=== PATIENT | female | born 1980 | race Caucasian/White ===

== ENCOUNTER 2019-04-06 16:07 | Outpatient (REF) | payer MEDICAID, SELFPAY ==
[2019-04-06 21:28] LABS: HCT 37.3 % (36.0-46.0); HGB 11.8 g/dL (12.0-15.5); Mean Corp. HGB Concentration 31.6 g/dL (32.0-36.0); Mean Corpuscular Hemoglobin 25.3 pg (27.0-33.0); Mean Platelet Volume 10.3 fL (8.0-11.0); Platelet Count 380 x1000/uL (130-400); RBC 4.66 m/cumm (4.00-5.20); RBC Distribution Width 16.5 % (11.7-14.6); White Blood Cell Count 12.37 k/cumm (4.4-10.8)
[2019-04-06 21:51] LABS: Anion Gap 7.8 mmol/L (3-11); BUN 16 mg/dL (7-18); CO2 28.2 mmol/L (21.0-32.0); Calcium 9.3 mg/dL (8.5-10.1); Chloride 103 mmol/L (98-107); Cholesterol 204 mg/dL (50-200); Glucose 109 mg/dL (70-100); HDL Cholesterol 33 mg/dL (40-60); LDL CHOLESTEROL 147 mg/dL (<100); Potassium 4.1 mmol/L (3.5-5.1); Sodium 139 mmol/L (136-145); TSH 31.56 uIU/mL (0.358-3.74); Triglyceride 197 mg/dL (30-150)
[2019-04-06 22:06] LABS: Hemoglobin A1C 6.6 % (4.5-6.2)
== END 2019-04-06 16:27 ==
LOC: NCHCN 16:07
PROVIDERS: PCP Nurse Practitioner Family; Visit Provider Nurse Practitioner Family
DX: E03.9 Hypothyroidism, unspecified (principal); E11.9 Type 2 diabetes mellitus without complications; F41.8 Other specified anxiety disorders; M54.16 Radiculopathy, lumbar region; M54.5 Low back pain; G47.33 Obstructive sleep apnea (adult) (pediatric); E66.9 Obesity, unspecified
CPT/HCPCS: 80048; 80061; 83721; 85027; 83036; 84443

== ENCOUNTER 2019-06-15 16:39 | Outpatient (REF) | payer MEDICAID, SELFPAY ==
--- NOTE | 2019-06-15 16:00 | PAPFT_PTH ---
PATIENT: Yesenia Fragoso LOC: [facility] U#:[id number] AGE/SX: 38/F ROOM: RE06/15/[address]: Perla Figueroa : 1980 BED: DIS: 06/15/2019 SPEC #: [id number] RECD: 06/16/19 12:28 STATUS: RAFI PIERCE #: [id number] YOVANI: 06/15/19 16:[address]: Perla Zamorano DEPT: [facility] Cytology RECD BY: Perla Whyte ENTERED: 06/16/19 12:28 SP TYPE: PAPFT OTHR DR: Emily Bejarano Tissues: 1 - CX/ENDOCX FOR PAP SMEARS Procedures: PAP THIN PREP/UVM Screening HPV DNA PROBE Comments: [id number] (CHLAMYDIA/GC)
--- NOTE | 2019-06-15 16:00 | LABIA_PTH ---
PATIENT: Yesenia Fragoso LOC: [facility] U#:[id number] AGE/SX: 38/F ROOM: RE06/15/[address]: Perla Figueroa : 1980 BED: DIS: 06/15/2019 SPEC #: [id number] RECD: 06/16/19 12:18 STATUS: RAFI REMarilu #: [id number] YOVANI: 06/15/19 16:[address]: Perla Zamorano DEPT: Surgical Specimen RECD BY: Perla Whyte ENTERED: 06/16/19 12:20 SP TYPE: LABIA OTHR DR: Emily Bejarano Tissues: 1 - LABIA BX 2 - LABIA BX Procedures: GROSS AND MICRO LEVEL 4 Comments: [id number]
[2019-06-17 14:45] LABS: Chlamydia Result Negative; GC Result Negative; Specimen Description SEE COMMENTS
== END 2019-06-15 16:59 ==
LOC: NCHCN 16:39
PROVIDERS: PCP Nurse Practitioner Family; Visit Provider Nurse Practitioner Family
DX: A63.0 Anogenital (venereal) warts (principal); N89.0 Mild vaginal dysplasia; R87.810 Cervical high risk human papillomavirus (HPV) DNA test positive; Z11.3 Encounter for screening for infections with a predominantly sexual mode of transmission; Z12.4 Encounter for screening for malignant neoplasm of cervix; Z11.51 Encounter for screening for human papillomavirus (HPV)
CPT/HCPCS: 87491; 87591; 88142; 88305; 87624

== ENCOUNTER 2019-10-12 15:53 | Outpatient (REF) | payer MEDICAID, SELFPAY ==
[2019-10-12 21:28] LABS: Hemoglobin A1C 6.9 % (4.5-6.2)
[2019-10-12 21:32] LABS: TSH 60.52 uIU/mL (0.36-3.74)
== END 2019-10-12 16:13 ==
LOC: NCHCN 15:53
PROVIDERS: PCP Nurse Practitioner Family; Visit Provider Nurse Practitioner Family
DX: E03.9 Hypothyroidism, unspecified (principal); E11.9 Type 2 diabetes mellitus without complications; F41.8 Other specified anxiety disorders; J45.20 Mild intermittent asthma, uncomplicated
CPT/HCPCS: 83036; 84443

== ENCOUNTER 2020-02-25 10:54 | Outpatient (REF) | payer MEDICAID, SELFPAY ==
[2020-02-25 20:34] LABS: TSH 11.49 uIU/mL (0.36-3.74)
== END 2020-02-25 11:14 ==
LOC: NCHCN 10:54
PROVIDERS: PCP Nurse Practitioner Family; Visit Provider Nurse Practitioner Family
DX: E03.9 Hypothyroidism, unspecified (principal)
CPT/HCPCS: 84443

== ENCOUNTER 2020-08-22 13:59 | Outpatient (REF) | payer MEDICAID, SELFPAY ==
[2020-08-22 21:58] LABS: TSH 21.13 uIU/mL (0.36-3.74); Vitamin B12 287 pg/mL (193-986)
[2020-08-23 00:34] LABS: Hemoglobin A1C 7.9 % (<5.7)
== END 2020-08-22 14:19 ==
LOC: NCHCN 13:59
PROVIDERS: PCP Nurse Practitioner Family; Visit Provider Nurse Practitioner Family
DX: E11.9 Type 2 diabetes mellitus without complications (principal); Z51.81 Encounter for therapeutic drug level monitoring
CPT/HCPCS: 82607; 83036; 84443

== ENCOUNTER 2020-09-19 17:27 | Outpatient (REF) | payer MEDICAID, SELFPAY ==
[2020-09-19 21:25] LABS: Calculated LDL 157 mg/dL (<100); Cholesterol 224 mg/dL (<200); HDL Cholesterol 28 mg/dL (40-60); T4 8.4 ug/mL (4.7-13.3); TSH 33.81 uIU/mL (0.36-3.74); Triglyceride 197 mg/dL (<150)
== END 2020-09-19 17:47 ==
LOC: NCHCN 17:27
PROVIDERS: PCP Nurse Practitioner Family; Visit Provider Nurse Practitioner Community Health
DX: E03.9 Hypothyroidism, unspecified (principal); Z13.220 Encounter for screening for lipoid disorders
CPT/HCPCS: 80061; 84436; 84443

== ENCOUNTER 2020-10-18 14:48 | Outpatient (REF) | payer MEDICAID, SELFPAY | END 2020-10-18 15:08 | LOC: NCHCN 14:48 | PROVIDERS: PCP Nurse Practitioner Family; Visit Provider Family Medicine | DX: R31.9 Hematuria, unspecified (principal) | CPT/HCPCS: 87086 ==

== ENCOUNTER 2020-11-28 18:10 | Outpatient (REF) | payer MEDICAID, SELFPAY ==
[2020-11-28 20:37] LABS: TSH (W/Ref FT4) 0.06 uIU/mL (0.36-3.74)
[2020-11-28 20:48] LABS: Hemoglobin A1C 7.2 % (<5.7)
[2020-11-28 21:16] LABS: FREE T4 1.84 ng/dL (0.76-1.46)
[2020-11-30 19:27] LABS: COVID-19 RT-PCR UVMMC Result Negative (Negative)
== END 2020-11-28 18:30 ==
LOC: NCHCN 18:10
PROVIDERS: PCP Nurse Practitioner Family; Visit Provider Nurse Practitioner Community Health
DX: E11.9 Type 2 diabetes mellitus without complications (principal); Z51.81 Encounter for therapeutic drug level monitoring; R05 Cough
CPT/HCPCS: U0003; 83036; 84439; 84443

== ENCOUNTER 2020-12-14 18:12 | Outpatient (REF) | payer MEDICAID, SELFPAY ==
[2020-12-16 22:13] LABS: COVID-19 RT-PCR Result NEGATIVE (Negative)
== END 2020-12-14 18:32 ==
LOC: NCHCN 18:12
PROVIDERS: PCP Nurse Practitioner Family; Visit Provider Nurse Practitioner Family
DX: J06.9 Acute upper respiratory infection, unspecified (principal)
CPT/HCPCS: U0003

== ENCOUNTER 2021-01-09 21:22 | Outpatient (REF) | payer MEDICAID, SELFPAY ==
[2021-01-09 21:32] LABS: TSH 3.58 uIU/mL (0.36-3.74); Vitamin B12 487 pg/mL (193-986)
[2021-01-11 10:14] LABS: HIV-1/2 Ag & Ab Screen Negative (Negative)
== END 2021-01-09 21:23 | disposition home or self-care (01) ==
LOC: NCHCN 21:22
PROVIDERS: PCP Nurse Practitioner Family; Visit Provider Nurse Practitioner Community Health
DX: R31.9 Hematuria, unspecified (principal); Z11.4 Encounter for screening for human immunodeficiency virus [HIV]; E03.9 Hypothyroidism, unspecified
CPT/HCPCS: 87389; 82607; 84443; 87086

== ENCOUNTER 2021-05-12 11:44 | Outpatient (REF) | payer MEDICAID, SELFPAY ==
[2021-05-12 20:57] LABS: TSH (W/Ref FT4) 5.66 uIU/mL (0.36-3.74)
[2021-05-12 21:21] LABS: FREE T4 1.19 ng/dL (0.76-1.46)
== END 2021-05-12 11:45 | disposition home or self-care (01) ==
LOC: NCHCN 11:44
PROVIDERS: PCP Nurse Practitioner Family; Visit Provider Nurse Practitioner Family
DX: E03.9 Hypothyroidism, unspecified (principal)
CPT/HCPCS: 84439; 84443

== ENCOUNTER 2021-10-02 20:56 | Outpatient (REF) | payer MEDICAID, SELFPAY ==
--- OUTSIDE RECORDS SUMMARY | 2021-10-02 20:59 | XMS_ITS | CCD ---
:1980 Author Care Team Providers Name Role Phone MD DYANA Attending Physician Unavailable MD DYANA Er Physician 1 Unavailable Vital Signs Unknown or Not Available. Allergies Allergy Code Allergy Type Reaction Status MORPHINE 7052 Drug allergy Hives; ITCHING Active BEE POLLEN 307478 Drug allergy Anaphylaxis Active DILAUDID 504697 Drug allergy Hives; ITCHING Active Procedures Unknown or Not Available. History of Immunizations Unknown or Not Available. Problems Unknown or Not Available. Results KRISTY GALVEZID RHEONIX - Collect Date/Time : 07/03/2021 04:39 Test Name Code Test Result Test Units Test Ref Range SOURCE= Anterior nasal N/A Tier- INPATIENT/ED N/A SARS COV2 RNA: 13654-3 NEGATIVE N/A REFERENCE RAN GE: NEGAT Active Medications Medication Code Dose Units Frequency Route Modification Start Date/Time FLOVENT HFA 0 1 PUFF TWICE A DAY INHALATION 04/14 0.11MG/1ACTUA 22:20 TION INHAL Prescription Detail 1 PUFF INHALATION TWICE A D AY FLUoxetine HCl 347590 20 MILLIGRAMS DAILY ORAL 2018 20MG Oral 22:20 Capsule Prescription Detail TAKE 20 MILLIGRAMS ORAL MARLEN Y METFORMIN HCL 0 500 MILLIGRAMS DAILY ORAL 019 500 MG ORAL 22:20 TABLET, E Prescription Detail TAKE 500 MILLIGRAMS ORAL NICHOLE LY LEVOTHYROXINE 0 224 MICROGRAM DAILY ORAL 12/27/19 18 112MCG ORAL TABLET 11:11 Prescription Detail TAKE 224 MICROGRAM ORAL MARLEN Y metFORMIN HCl 388036 500 MILLIGRAMS DAILY ORAL 018 500MG Oral 11:11 Tablet Prescription Detail TAKE 500 MILLIGRAMS ORAL NICHOLE LY Proventil HFA 139075 2 PUFF NEEDED, INHALATION 12/2017 0.09MG/1Actuation EVERY 4 11:11 Inhalation Suspension HOURS Prescription Detail 2 PUFF INHALATION NEEDED , EVERY 4 HOURS ADVAIR HFA 0 2 PUFF NEEDED INHALATION 12/26/19 18 INHALER 22:58 Prescription Detail 2 PUFF INHALATION NEEDED LEVOTHYROXINE 0 224 MICROGRAM DAILY ORAL 12/26/19 18 112MCG ORAL TABLET 22:58 Prescription Detail TAKE 224 MICROGRAM ORAL MARLEN Y metFORMIN HCl 709199 500 MILLIGRAMS DAILY ORAL 018 500MG Oral 22:58 Tablet Prescription Detail TAKE 500 MILLIGRAMS ORAL NICHOLE LY Medications Administered During Visit Unknown or Not Available. Encounters Encounter Diagnosis Diagnosis Code Start Date Nausea with vomiting, unspecified R112 2020 Social History Smoking Status Code Start Date End Date Current some day smoker [id number] 11/25/1997 Patient Decision Aids Unknown or Not Available. Discharge Instructions You were admitted to [facility] on 07/03/2021 03:31 with a principal diagnosis of Nausea with vomiting, unspe cified You had the following tests done: KRISTY COVID RHEONIX You were discharged from [facility] on 07/03/2021 04:51 Should you have any questions prior to d ischarge, please contact a member of your healthcare team. If you have left the spital and have any questions, please contact your primary care physician. Chief Complaint and Reason For Visit Chief Complaint Date of Onset NAUSEA/VOMITING Function Status Unknown or Not Available. Plan of Care Unknown or Not Available. Referral/Transition of Care Unknown or Not Available.
--- OUTSIDE RECORDS SUMMARY | 2021-10-02 21:00 | XMS_ITS | CCD ---
:1980 Author Care Team Providers Name Role Phone MD PUNEET Attending Physician Unavailable MD PUNEET Er Physician 1 Unavailable Vital Signs Unknown or Not Available. Allergies Allergy Code Allergy Type Reaction Status MORPHINE 7052 Drug allergy Hives; ITCHING Active BEE POLLEN 487248 Drug allergy Anaphylaxis Active DILAUDID 760450 Drug allergy Hives; ITCHING Active Procedures Unknown or Not Available. History of Immunizations Unknown or Not Available. Problems Unknown or Not Available. Results C REACTIVE PROTEIN HIGH SENSITIVITY - Co llect Date/Time: 07/20/2021 22:05 Test Name Code Test Result Test Units Test Ref Range CRP-HIGH SENS. 10080-5 44.48 mg/L L=0.00 H= 3.00 CRP-HIGH SENS 18087-3 4.45 mg/dL L=0.00 H=0 .30 COMPREHENSIVE METABOLIC PANEL (CMP) - Co llect Date/Time: 07/20/2021 22:05 Test Name Code Test Result Test Units Test Ref Range GLUCOSE 2345-7 230 mg/dL L=70 H=11 6 BUN 3094-0 10 mg/dL L=6 H=25 CREATININE 2160-0 0.98 mg/dL L=0.51 H=0.95 SODIUM SERUM 2951-2 141 mmol/L L=136 H=14 5 POTASSIUM SERUM 2823-3 3.5 mmol/L L=3.4 H =5.2 CHLORIDE SERUM 2075-0 103 mmol/L L=96 H= 110 CARBON DIOXIDE (CO2) 2028-9 30 mmol/L L=22 H=34 ANION GAP 37480-7 8.0 mmol/L CALCIUM SERUM 12900-0 8.9 mg/dL L=8.2 H=10.2 BILIRUBIN TOTAL 1975-2 0.2 mg/dL L=0.0 H =1.3 ALK. PHOS. 6768-6 78 U/L L=46 H=11 6 SGOT (AST) 1920-8 11 U/L L=15 H=37 SGPT (ALT) 1742-6 17 U/L L=12 H=78 TOTAL PROTEIN 2885-2 7.3 gm/dL L=6.0 H=8 .0 ALBUMIN 1751-7 3.0 gm/dL L=3.4 H=5. 0 AGE 40 years eGFR (non-Afr.Amer.) 78743-1 63 mL/min eGFR (Afr-[place] Korean) 91709-9 76 mL/min LIPASE - Collect Date/Time: 07/20/2021 2 2:05 Test Name Code Test Result Test Units Test Ref Range LIPASE 132 U/L L=73 H=39 3 CBC W/ DIFFERENTIAL - Collect Date/Time: 07/20/2021 22:05 Test Name Code Test Result Test Units Test Ref Range WBC 6690-2 14.87 th/cmm L=5.00 H=10.00 NEUT % 72.5 % L=40.0 H=80.0 LYMPH % 22.5 % L=10.0 H=50.0 MONO % 91691-7 2.7 % L=2.0 H=12.0 EOS % 1.7 % L=0.0 H=8. 0 BASO % 0.3 % L=0.0 H=3. 0 IG % 2514-8 0.3 % L=0.0 H=1. 1 NRBC % 85988-1 0.0 % L=0.0 H=0. 0 NEUT abs count 751-8 10.8 th/cmm L=1.6 H= 8.4 LYMPH abs count 731-0 3.4 th/cmm L=1.5 H =4.0 MONO abs count 742-7 0.4 th/cmm L=0.2 H= 1.0 EOS abs count 711-2 0.3 th/cmm L=0.0 H=0 .5 BASO abs count 704-7 0.1 th/cmm L=0.0 H= 0.2 IG abs count 14903-5 0.0 th/cmm L=0.0 H=0. 1 NRBC abs count 88199-2 0.0 mil/cmm L=0.0 H= 0.0 RBC 789-8 4.59 mil/cmm L=3.90 H=5.40 HEMOGLOBIN 718-7 12.8 gm/dL L=12.0 H=16.0 HEMATOCRIT 4544-3 40 % L=37 H=47 MCV 787-2 86 fL L=82 H=92 MCH 785-6 27.9 pg L=27.0 H=31.0 MCHC 786-4 32.3 % L=32.0 H=36.0 RDW-SD 788-0 44.0 fL L=39.0 H=49.0 PLATELET COUNT 777-3 323 th/cmm L=150 H= 450 CLOSTRIDIUM DIFFICILE BY PCR - Collect D ate/Time: 07/21/2021 18:33 Test Name Code Test Result Test Units Test Ref Range Consistency = 30960-5 WATERY N/A C. DIFFICILE DNA 86218-2 NEGATIVE N/A Normal: Neg ative LACTOFERRIN DETECTION STOOL - Collect Da te/Time: 07/21/2021 18:33 Test Name Code Test Result Test Units Test Ref Range Consistency: WATERY N/A Lactoferrin stool NEGATIVE N/A URINALYSIS WITH REFLEX CULT IF POSITIVE - Collect Date/Time: 07/20/2021 22:20 Test Name Code Test Result Test Units Test Ref Range COLLECTION MODE: Clean Catch N/A Color 5778-6 YELLOW N/A yellow Appearance 5767-9 CLEAR N/A clear Glucose urine 22669-3 NEGATIVE N/A negative mg/ dl Bilirubin 5770-3 NEGATIVE N/A negative Ketones 2514-8 TRACE N/A negative mg/d l Spec gravity 5811-5 >=1.030 N/A 1.003 - 1.030 pH urine 2756-5 6.0 N/A 5.0 - 7.0 Protein 76425-5 NEGATIVE N/A negative mg/d l Urobilinogen 78443-3 0.2 N/A <or= 1 EU/d l Nitrite. 5802-4 NEGATIVE N/A negative Blood 5794-3 NEGATIVE N/A negative Leukocytes. NEGATIVE N/A negative MICROSCOPIC NOT INDICAT N/A FECAL BACTERIAL PATHOGENS BY PCR - Colle ct Date/Time: 07/21/2021 18:33 Test Name Code Test Result Test Units Test Ref Range Salmonella PCR Negative N/A Negative Shigella PCR Negative N/A Negative Campylobacter PCR Negative N/A Negative Shiga Toxin PCR Negative N/A Negative GIARDIA AND CRYPTOSPORIDIUM EXAM (STOOL) - Collect Date/Time: 07/21/2021 18:33 Test Name Code Test Result Test Units Test Ref Range Giardia andCryptosporidium Cryptosporidium Antigen N/A (See Note) Neg and Giardia Antigen Neg Active Medications Medication Code Dose Units Frequency Route Modification Start Date/Time FLOVENT HFA 0 1 PUFF TWICE A DAY INHALATION 04/14 0.11MG/1ACTUA 22:20 TION INHAL Prescription Detail 1 PUFF INHALATION TWICE A D AY FLUoxetine HCl 955920 20 MILLIGRAMS DAILY ORAL 2018 20MG Oral 22:20 Capsule Prescription Detail TAKE 20 MILLIGRAMS ORAL MARLEN Y METFORMIN HCL 0 500 MILLIGRAMS DAILY ORAL 019 500 MG ORAL 22:20 TABLET, E Prescription Detail TAKE 500 MILLIGRAMS ORAL NICHOLE LY LEVOTHYROXINE 0 224 MICROGRAM DAILY ORAL 12/27/19 18 112MCG ORAL TABLET 11:11 Prescription Detail TAKE 224 MICROGRAM ORAL MARLEN Y metFORMIN HCl 924555 500 MILLIGRAMS DAILY ORAL 018 500MG Oral 11:11 Tablet Prescription Detail TAKE 500 MILLIGRAMS ORAL NICHOLE LY Proventil HFA 060347 2 PUFF NEEDED, INHALATION 12/2017 0.09MG/1Actuation EVERY 4 11:11 Inhalation Suspension HOURS Prescription Detail 2 PUFF INHALATION NEEDED , EVERY 4 HOURS ADVAIR HFA 0 2 PUFF NEEDED INHALATION 12/26/19 18 INHALER 22:58 Prescription Detail 2 PUFF INHALATION NEEDED LEVOTHYROXINE 0 224 MICROGRAM DAILY ORAL 12/26/19 18 112MCG ORAL TABLET 22:58 Prescription Detail TAKE 224 MICROGRAM ORAL MARLEN Y metFORMIN HCl 157218 500 MILLIGRAMS DAILY ORAL 018 500MG Oral 22:58 Tablet Prescription Detail TAKE 500 MILLIGRAMS ORAL NICHOLE LY Medications Administered During Visit Unknown or Not Available. Encounters Encounter Diagnosis Diagnosis Code Start Date Left upper quadrant pain R1012 07/20/2021 Social History Smoking Status Code Start Date End Date Current some day smoker [id number] 11/25/1997 Patient Decision Aids Unknown or Not Available. Discharge Instructions You were admitted to [facility] 01 on 07/20/2021 21:27 with a principal diagnosis of Left upper quadrant pain You had the following tests done: CLOSTRIDIUM DIFFICILE BY PCR FECAL BACTERIAL PATHOGENS BY PCR GIARDIA AND CRYPTOSPORIDIUM EXAM (STOOL) LACTOFERRIN DETECTION STOOL URINALYSIS WITH REFLEX CULT IF POSITIVE C REACTIVE PROTEIN HIGH SENSITI VITY CBC W/ DIFFERENTIAL COMPREHENSIVE METABOLIC PANEL (CMP) LIPASE You were discharged from [facility] 01 on 07/20/2021 23:30 Should you have any questions prior to d ischarge, please contact a member of your healthcare team. If you have left the ho spital and have any questions, please contact your primary care physician. Chief Complaint and Reason For Visit Chief Complaint Date of Onset ABDOMINAL PAIN Function Status Unknown or Not Available. Plan of Care Unknown or Not Available. Referral/Transition of Care Unknown or Not Available.
--- OUTSIDE RECORDS SUMMARY | 2021-10-02 21:00 | XMS_ITS | CCD ---
:1980 Author Care Team Providers Name Role Phone MD PHUONG Attending Physician Unavailable Vital Signs Unknown or Not Available. Allergies Allergy Code Allergy Type Reaction Status MORPHINE 7052 Drug allergy Hives; ITCHING Active BEE POLLEN 327434 Drug allergy Anaphylaxis Active DILAUDID 851495 Drug allergy Hives; ITCHING Active Procedures Unknown or Not Available. History of Immunizations Unknown or Not Available. Problems Unknown or Not Available. Results KRISTY GALVEZID RHEONIX - Collect Date/Time : 08/09/2021 11:30 Test Name Code Test Result Test Units Test Ref Range SOURCE= Anterior nasal N/A Tier- SYMPTOMS N/A SARS COV2 RNA: 59035-7 NEGATIVE N/A REFERENCE RAN GE: NEGAT Active Medications Medication Code Dose Units Frequency Route Modification Start Date/Time FLOVENT HFA 0 1 PUFF TWICE A DAY INHALATION 04/14 0.11MG/1ACTUA 22:20 TION INHAL Prescription Detail 1 PUFF INHALATION TWICE A D AY FLUoxetine HCl 598225 20 MILLIGRAMS DAILY ORAL 2018 20MG Oral 22:20 Capsule Prescription Detail TAKE 20 MILLIGRAMS ORAL MARLEN Y METFORMIN HCL 0 500 MILLIGRAMS DAILY ORAL 019 500 MG ORAL 22:20 TABLET, E Prescription Detail TAKE 500 MILLIGRAMS ORAL NICHOLE LY LEVOTHYROXINE 0 224 MICROGRAM DAILY ORAL 12/27/19 18 112MCG ORAL TABLET 11:11 Prescription Detail TAKE 224 MICROGRAM ORAL MARLEN Y metFORMIN HCl 807166 500 MILLIGRAMS DAILY ORAL 018 500MG Oral 11:11 Tablet Prescription Detail TAKE 500 MILLIGRAMS ORAL NICHOLE LY Proventil HFA 247059 2 PUFF NEEDED, INHALATION 12/2017 0.09MG/1Actuation EVERY 4 11:11 Inhalation Suspension HOURS Prescription Detail 2 PUFF INHALATION NEEDED , EVERY 4 HOURS ADVAIR HFA 0 2 PUFF NEEDED INHALATION 12/26/19 18 INHALER 22:58 Prescription Detail 2 PUFF INHALATION NEEDED LEVOTHYROXINE 0 224 MICROGRAM DAILY ORAL 12/26/19 18 112MCG ORAL TABLET 22:58 Prescription Detail TAKE 224 MICROGRAM ORAL MARLEN Y metFORMIN HCl 418197 500 MILLIGRAMS DAILY ORAL 018 500MG Oral 22:58 Tablet Prescription Detail TAKE 500 MILLIGRAMS ORAL NICHOLE LY Medications Administered During Visit Unknown or Not Available. Encounters Unknown or Not Available. Social History Smoking Status Code Start Date End Date Current some day smoker [id number] 11/25/1997 Patient Decision Aids Unknown or Not Available. Discharge Instructions You were admitted to [facility] on 08/09/2021 13:20 You had the following tests done: [facility] COVID RHEONIX You were discharged from [facility] on 08/09/2021 13:20 Should you have any questions prior to d ischarge, please contact a member of your healthcare team. If you have left the spital and have any questions, please contact your primary care physician. Chief Complaint and Reason For Visit Unknown or Not Available. Function Status Unknown or Not Available. Plan of Care Unknown or Not Available. Referral/Transition of Care Unknown or Not Available.
[2021-10-04 12:28] LABS: COVID-19 RT-PCR UVMMC Result Negative (Negative)
== END 2021-10-02 20:57 | disposition home or self-care (01) ==
LOC: NCHCN 20:56
PROVIDERS: PCP Nurse Practitioner Family; Visit Provider Nurse Practitioner Community Health
DX: Z20.822 Contact with and (suspected) exposure to COVID-19 (principal); J06.9 Acute upper respiratory infection, unspecified
CPT/HCPCS: U0003

== ENCOUNTER 2022-02-20 12:03 | Outpatient (REF) | payer MEDICAID, SELFPAY ==
[2022-02-20 18:01] LABS: Hemoglobin A1C 10.1 % (<5.7)
[2022-02-20 19:30] LABS: ALT 16 U/L (14-59); AST 11 U/L (15-37); Albumin 3.4 g/dL (3.4-5.0); Alkaline Phosphatase 88 U/L (46-116); Anion Gap 10.5 mmol/L (3-11); BUN 11 mg/dL (7-18); Bilirubin, Total 0.3 mg/dL (0.2-1.0); CO2 26.5 mmol/L (21.0-32.0); CREATININE 0.9 mg/dL (0.55-1.02); Calcium 9.4 mg/dL (8.5-10.1); Calculated LDL 122 mg/dL (<100); Chloride 99 mmol/L (98-107); Cholesterol 195 mg/dL (<200); Glucose 236 mg/dL (74-106); HDL Cholesterol 33 mg/dL (40-60); Potassium 4.1 mmol/L (3.5-5.1); Sodium 136 mmol/L (136-145); Total Protein 7.6 g/dL (6.4-8.2); Triglyceride 200 mg/dL (<150)
[2022-02-21 14:28] LABS: TSH 15.32 uIU/mL (0.36-3.74)
[2022-02-22 12:53] LABS: COVID-19 RT-PCR UVMMC Result Negative (Negative)
== END 2022-02-20 12:04 | disposition home or self-care (01) ==
LOC: NCHCN 12:03
PROVIDERS: PCP Nurse Practitioner Family; Visit Provider Nurse Practitioner Family
DX: Z20.822 Contact with and (suspected) exposure to COVID-19 (principal); J06.9 Acute upper respiratory infection, unspecified; E11.9 Type 2 diabetes mellitus without complications; E03.9 Hypothyroidism, unspecified; E66.9 Obesity, unspecified
CPT/HCPCS: 80053; 80061; U0003; 83036; 84443

== ENCOUNTER 2022-05-01 19:17 | Outpatient (REF) | payer MEDICAID, SELFPAY ==
[2022-05-03 11:45] LABS: COVID-19 RT-PCR UVMMC Result Negative (Negative)
== END 2022-05-01 19:18 | disposition home or self-care (01) ==
LOC: NCHCN 19:17
PROVIDERS: PCP Nurse Practitioner Family; Visit Provider Nurse Practitioner Family
DX: Z20.822 Contact with and (suspected) exposure to COVID-19 (principal); R09.89 Other specified symptoms and signs involving the circulatory and respiratory systems
CPT/HCPCS: U0003

== ENCOUNTER 2022-06-11 17:49 | Outpatient (REF) | payer MEDICAID, SELFPAY ==
[2022-06-11 14:53] LABS: COMMENT (LAB VIEW ONLY) 230.81 mg/dL; Microalb ug/mg Crea 6.7 ug/mg Cr
== END 2022-06-11 17:50 | disposition home or self-care (01) ==
LOC: NCHCN 17:49
PROVIDERS: PCP Nurse Practitioner Family; Visit Provider Nurse Practitioner Family
DX: E11.9 Type 2 diabetes mellitus without complications (principal)
CPT/HCPCS: 82043; 82570

== ENCOUNTER 2022-07-17 14:55 | Outpatient (REF) | payer MEDICAID, SELFPAY ==
[2022-07-17 18:01] LABS: Bilirubin Negative (Negative); Blood Negative (Negative); Clarity Turbid (Clear); Glucose Negative (Negative); Ketones Negative (Negative); Leukocyte Esterase Negative (Negative); Nitrite Negative (Negative); Specific Gravity 1.025 (1.005-1.025); Urobilinogen 0.2 EU/dL (Up TO 0.2); pH 6.5 (5-8)
== END 2022-07-17 14:56 | disposition home or self-care (01) ==
LOC: NCHCN 14:55
PROVIDERS: PCP Nurse Practitioner Family; Visit Provider Nurse Practitioner Family
DX: Z01.818 Encounter for other preprocedural examination (principal)
CPT/HCPCS: 81003; 87086

== ENCOUNTER 2022-12-11 10:47 | Outpatient (REF) | payer MEDICAID, SELFPAY ==
[2022-12-11 15:50] LABS: Abs Immature Grans 0.03 10^3/uL (0.0-0.06); Absolute Basophil Count 0.04 10^3/uL (0.0-0.2); Absolute Eosinophil Count 0.27 10^3/uL (0.0-0.7); Absolute Lymphocyte Count 3.23 10^3/uL (1.2-3.4); Absolute Monocyte Count 0.44 10^3/uL (0.1-0.8); Basophils % 0.4; Eosinophils % 2.5; HCT 40.5 % (36.0-46.0); HGB 13.1 g/dL (11.2-15.7); Immature Grans % 0.3; Lymphocytes % 29.5; MCHC 32.3 % (32.0-36.0); MCV 87 fL (80-95); Neutrophils % 63.3; Platelet Count 339 10^3/uL (130-400); RBC 4.68 10^6/uL (3.93-5.22); RDW 13.8 % (11.7-14.6); RDW-SD 43.1 fL; WBC 10.96 10^3/uL (4.4-10.8)
[2022-12-11 15:51] LABS: Absolute Neutrophil Count 6.94 10^3/uL (1.2-6.7)
[2022-12-11 17:08] LABS: ALT 18 U/L (14-59); AST 24 U/L (15-37); Albumin 3.3 g/dL (3.4-5.0); Alkaline Phosphatase 101 U/L (46-116); Anion Gap 6.3 mmol/L (3-11); BUN 9 mg/dL (7-18); Bilirubin, Total 0.4 mg/dL (0.2-1.0); CO2 28.7 mmol/L (21.0-32.0); CREATININE 0.9 mg/dL (0.55-1.02); Calcium 9.8 mg/dL (8.5-10.1); Chloride 101 mmol/L (98-107); Estimated GFR 82.37 (mL/min/1.73m2); Glucose 109 mg/dL (74-106); Lipase 156 U/L (73-393); Potassium 4.1 mmol/L (3.5-5.1); Sodium 136 mmol/L (136-145); TSH 0.13 uIU/mL (0.36-3.74); Total Protein 7.8 g/dL (6.4-8.2)
[2022-12-11 22:52] LABS: Estimated Average Glucose 134 mg/dL; Hemoglobin A1C 6.3 % (<5.7)
== END 2022-12-11 10:48 | disposition home or self-care (01) ==
LOC: NCHCN 10:47
PROVIDERS: PCP Nurse Practitioner Family; Visit Provider Nurse Practitioner Family
DX: E03.9 Hypothyroidism, unspecified (principal); E11.9 Type 2 diabetes mellitus without complications; R10.9 Unspecified abdominal pain
CPT/HCPCS: 80053; 83690; 83036; 84443; 85025

== ENCOUNTER 2023-03-11 10:23 | Outpatient (REF) | payer MEDICAID, SELFPAY ==
[2023-03-11 16:07] LABS: Hemoglobin A1C 6.4 % (<5.7)
[2023-03-11 16:21] LABS: TSH 0.34 uIU/mL (0.36-3.74)
== END 2023-03-11 10:24 | disposition home or self-care (01) ==
LOC: NCHCN 10:23
PROVIDERS: PCP Nurse Practitioner Family; Visit Provider Nurse Practitioner Family
DX: E11.9 Type 2 diabetes mellitus without complications (principal); E03.9 Hypothyroidism, unspecified
CPT/HCPCS: 83036; 84443

== ENCOUNTER 2023-05-23 11:56 | Outpatient (REF) | payer MEDICAID, SELFPAY ==
--- NOTE | 2023-05-23 11:00 | PAPFT_PTH ---
PATIENT: Yesenia Fragoso LOC: [facility]#:[id number] AGE/SX: 42/F ROOM: RE05/23/[address]: Perla Figueroa : 1980 BED: DIS: 05/23/2023 SPEC #: [id number] RECD: 05/24/23 13:14 STATUS: RAFI PIERCE #: [id number] YOVANI: 05/23/23 11:[address]: Perla Zamorano DEPT: [facility] Cytology RECD BY: Perla Whyte ENTERED: 05/24/23 13:14 SP TYPE: PAPFT OTHR DR: Emily Bejarano Tissues: 1 - CX/ENDOCX FOR PAP SMEARS Procedures: PAP THIN PREP/UVM Screening HPV DNA PROBE Comments: [id number] (CHLAMYDIA/GC)
[2023-05-23 16:05] LABS: COMMENT (LAB VIEW ONLY) 208.34 mg/dL; Microalb ug/mg Crea 3.7 ug/mg Cr
[2023-05-27 13:57] LABS: Chlamydia Result Negative (Negative); GC Result Negative (Negative)
== END 2023-05-23 11:57 | disposition home or self-care (01) ==
LOC: NCHCN 11:56
PROVIDERS: PCP Nurse Practitioner Family; Visit Provider Nurse Practitioner Family
DX: Z00.01 Encounter for general adult medical examination with abnormal findings (principal); E11.9 Type 2 diabetes mellitus without complications; E03.9 Hypothyroidism, unspecified; Z11.3 Encounter for screening for infections with a predominantly sexual mode of transmission; Z11.4 Encounter for screening for human immunodeficiency virus [HIV]; Z11.59 Encounter for screening for other viral diseases
CPT/HCPCS: 87491; 87591; 88142; 82043; 82570; 87624

== ENCOUNTER 2023-05-23 12:55 | Outpatient (REF) | payer MEDICAID, SELFPAY ==
[2023-05-23 21:05] LABS: Hemoglobin A1C 6.3 % (<5.7)
[2023-05-25 09:16] LABS: HIV-1/2 Ag & Ab Screen Negative (Negative)
[2023-05-27 11:16] LABS: Hepatitis C Ab w Rflx HCV PCR Negative (Negative)
[2023-05-27 12:06] LABS: Syphilis Serology (RPR) Negative (Negative)
== END 2023-05-23 12:56 | disposition home or self-care (01) ==
LOC: NCHCN 12:55
PROVIDERS: PCP Nurse Practitioner Family; Visit Provider Nurse Practitioner Family
DX: E11.9 Type 2 diabetes mellitus without complications (principal); Z11.3 Encounter for screening for infections with a predominantly sexual mode of transmission; E03.9 Hypothyroidism, unspecified; Z11.4 Encounter for screening for human immunodeficiency virus [HIV]; Z11.59 Encounter for screening for other viral diseases
CPT/HCPCS: 86803; 87389; 83036; 84443; 86592

== ENCOUNTER 2024-05-12 15:28 | Outpatient (REF) | payer MEDICAID, SELFPAY ==
[2024-05-12 15:21] LABS: TSH (W/Ref FT4) 1.28 uIU/mL (0.36-3.74)
[2024-05-12 15:23] LABS: Hemoglobin A1C 7.5 % (<5.7)
--- OUTSIDE RECORDS SUMMARY | 2024-05-12 15:31 | XMS_ITS ---
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 Tobacco Name Role Phone PHUONG Molina Attending Unavailable Results [facility] - Brijesh ect Date/Time: 11/22/2021 10:47 [facility] ID: [id number] [address] [place] [address], [id number] LOINC: 69278-3 Test Value Unit Reference Range Code Code System Flag Tier- SYMPTOMS SARS COV2 RNA: NEGATIVE REFERENCE RANGE: NEGAT 79929-4 L OINC Social History Type Status Start Date End Date Code Code Syst em Smoking History Current every day smoker 273568461 SNOMED CT Smoking History Former smoker 3157248 SNOMED CT Smoking History Current some day smoker 11/25/[id number] Sex Female Medications Medication Start Date End Date Route Frequency Dose Code Code System Medication Instructions Home Meds ADVAIR HFA INHALER 12/26/2017 01/16/2022 INHALATION NEEDED 2 PUFF RxNorm 2 PUFF INHALATION NEEDED LEVOTHYROXI NE 112MCG ORAL TABLET 12/26/2017 01/16/2022 ORAL DAILY 224 MICROGRA M RxNorm TAKE 224 MICROGRAM ORAL DAILY metFORMIN HCl 500MG Oral Tablet 12/26/2017 01/16/2022 ORAL DAILY 500 MILLIGRA MS 861 007 RxNorm TAKE 500 MILLIGRAMS ORAL DAILY LEVOTHYROXI NE 112MCG ORAL TABLET 12/27/2017 01/16/2022 ORAL DAILY 224 MICROGRA M RxNorm TAKE 224 MICROGRAM ORAL DAILY Proventil HFA 0.09MG/1Act uation Inhalation Suspension 12/27/2017 01/19/2022 INHALATION NEEDED, EVERY 4 HOURS 2 PUFF 746 763 RxNorm 2 PUFF INHALATION NEEDED, EVERY 4 HOURS metFORMIN HCl 500MG Oral Tablet 12/27/2017 01/16/2022 ORAL DAILY 500 MILLIGRA MS 861 007 RxNorm TAKE 500 MILLIGRAMS ORAL DAILY FLOVENT HFA 0.11MG/1ACT UATION INHAL 04/14/2019 01/19/2022 INHALATION TWICE A DAY 1 PUFF RxNorm 1 PUFF INHALATION TWICE A DAY FLUoxetine HCl 20MG Oral Capsule 04/14/2019 01/16/2022 ORAL DAILY 20 MILLIGRA MS 310 385 RxNorm TAKE 20 MILLIGRAMS ORAL DAILY METFORMIN HCL 500 MG ORAL TABLET, E 04/14/2019 01/16/2022 ORAL DAILY 500 MILLIGRA MS RxNorm TAKE 500 MILLIGRAMS ORAL DAILY Penicillin VK 500MG Oral Tablet 01/16/2022 05/02/2022 ORAL TWICE A DAY 1 TABLET 834 102 RxNorm TAKE 1 TABLET ORAL TWICE A DAY Tessalon Perles 100MG Oral Capsule, Liquid Filled 05/02/2022 07/08/2022 ORAL NEEDED EVERY 6 HOURS 1 CAPSULE 208 365 RxNorm TAKE 1 CAPSULE ORAL NEEDED EVERY 6 HOURS predniSONE 20MG Oral Tablet 05/02/2022 07/08/2022 ORAL DAILY 2 TABLET 312 615 RxNorm TAKE 2 TABLET ORAL DAILY Penicillin VK 500MG Oral Tablet 07/08/2022 07/17/2022 ORAL FOUR TIMES A DAY 1 TABLET 834 102 RxNorm TAKE 1 TABLET ORAL FOUR TIMES A DAY Ondansetron 4MG Oral Tablet, Disintegrat ing 07/17/2022 10/07/2022 ORAL NEEDED EVERY 6 HOURS 1 TABLET 104 894 RxNorm TAKE 1 TABLET ORAL NEEDED EVERY 6 HOURS FOR Nausea/Vomiti ng HYDROcodone bitartrate- acetaminoph en 5MG-325MG Oral Tablet 07/17/2022 10/07/2022 ORAL NEEDED EVERY 4 HOURS 1 TABLET 857 002 RxNorm TAKE 1 TABLET ORAL NEEDED EVERY 4 HOURS FOR Pain Ibuprofen 200MG Oral Tablet 07/17/2022 09/01/2023 ORAL EVERY 6 HOURS 3 TABLET 310 965 RxNorm TAKE 3 TABLET ORAL EVERY 6 HOURS FOR 24 HOURS THEN NEEDED FOR PAIN Chlorhexidi ne Gluconate 0.12% Oral Liquid 07/17/2022 10/07/2022 ORAL THREE TIMES A DAY 5 mL RxNorm TAKE 5 mL ORAL SWISH AND SPIT THREE TIMES A DAY Bactrim DS 800MG-160MG Oral Tablet 09/04/2022 10/07/2022 ORAL TWICE A DAY 1 TABLET 849 580 RxNorm TAKE 1 TABLET ORAL TWICE A DAY Benadryl Allergy 25MG Oral Tablet 09/11/2022 09/01/2023 ORAL EVERY 6 HOURS 2 TABLET 104 963 2 RxNorm TAKE 2 TABLET ORAL EVERY 6 HOURS Zofran 4MG Oral Tablet 10/07/2022 10/04/2023 ORAL NEEDED THREE TIMES A DAY 1 TABLET 104 895 RxNorm TAKE 1 TABLET ORAL NEEDED THREE TIMES A DAY oxyCODONE HCl 5MG Oral Tablet 12/14/2022 09/01/2023 ORAL NEEDED EVERY 3 HOURS 5 MILLIGRA MS 104 962 1 RxNorm TAKE 5 MILLIGRAMS ORAL NEEDED EVERY 3 HOURS Atorvastati n Calcium 40MG Oral Tablet 12/14/2022 Unknown ORAL DAILY 40 MILLIGRA MS 617 311 RxNorm TAKE 40 MILLIGRAMS ORAL DAILY Levothyroxi ne 200MCG Oral Tablet 12/14/2022 09/01/2023 ORAL DAILY 200 MCG 892 251 RxNorm TAKE 200 MCG ORAL DAILY ProAir HFA 0.09MG/1Act uation Inhalation Suspension 12/14/2022 06/02/2023 INHALATION NEEDED 1 unit(s) 747 752 RxNorm 1 EACH INHALATION NEEDED Trulicity 0.75MG/0.5M L Subcutaneou s Solution 12/14/2022 09/01/2023 SUBCUTANEOUS MONDAYS 1.5 MILLIGRA MS 155 130 0 RxNorm INJECT 1.5 MILLIGRAMS SUBCUTANEOUS MONDAYS metFORMIN HCl 500MG Oral Tablet 12/14/2022 06/01/2023 ORAL TWICE A DAY 1000 MILLIGRA MS 861 007 RxNorm TAKE 1000 MILLIGRAMS ORAL TWICE A DAY predniSONE 20MG Oral Tablet 03/06/2023 06/02/2023 ORAL DAILY 1 TABLET 312 615 RxNorm TAKE 1 TABLET ORAL DAILY Zithromax 250MG Oral Tablet 03/06/2023 06/02/2023 ORAL DAILY 1 TABLET 212 446 RxNorm TAKE 2 TABLETS ORAL DAILY ON DAY 1 AND THEN1 TABLET DAILY ON DAYS 2-5 Albuterol Sulfate 0.09MG/1Act uation Inhalation Suspension 06/02/2023 Unknown INHALATION NEEDED EVERY 4 HOURS 2 PUFF 212 307 2 RxNorm 2 PUFF INHALATION EVERY 4 HOURS FOR 24 HOURS THEN NEEDED FOR Cough/Shortne ss of breath Zithromax 250MG Oral Tablet 06/02/2023 06/10/2023 ORAL DAILY 1 TABLET 212 446 RxNorm TAKE 1 TABLET ORAL DAILY predniSONE 20MG Oral Tablet 06/02/2023 06/10/2023 ORAL DAILY 3 TABLET 312 615 RxNorm TAKE 3 TABLET ORAL DAILY Mucinex D 600MG-60mg Oral Tablet, Extended Release 06/02/2023 09/01/2023 ORAL TWICE A DAY 1 TABLET 130 560 3 RxNorm TAKE 1 TABLET ORAL TWICE A DAY FOR 3-5 DAYS Zithromax 250MG Oral Tablet 06/10/2023 09/01/2023 ORAL DAILY 1 TABLET 212 446 RxNorm TAKE 2 TABLETS ORAL DAILY ON DAY 1 AND THEN1 TABLET DAILY ON DAYS 2-5 Ibuprofen 800MG Oral Tablet 08/28/2023 10/04/2023 ORAL EVERY 8 HOURS 1 TABLET 197 807 RxNorm TAKE 1 TABLET ORAL EVERY 8 HOURS Penicillin VK 500MG Oral Tablet 08/28/2023 09/01/2023 ORAL THREE TIMES A DAY 1 TABLET 834 102 RxNorm TAKE 1 TABLET ORAL THREE TIMES A DAY Tylenol 325MG Oral Tablet 09/01/2023 10/04/2023 ORAL NEEDED EVERY 6 HOURS 2 TABLET 209 387 RxNorm TAKE 2 TABLET ORAL NEEDED EVERY 6 HOURS Anbesol Maximum Strength 20% Oromucosal Gel/Jelly 09/01/2023 10/04/2023 OROMUCOSAL THREE TIMES A DAY 1 RxNorm 1 OROMUCOSAL THREE TIMES A DAY Augmentin 875MG-125MG Oral Tablet 09/04/2023 10/04/2023 ORAL TWICE A DAY 1 TABLET 824 194 RxNorm TAKE 1 TABLET ORAL TWICE A DAY Meclizine HCl 25MG Oral Tablet 10/04/2023 01/21/2024 ORAL NEEDED EVERY 8 HOURS 1 TABLET 995 666 RxNorm TAKE 1 TABLET ORAL NEEDED EVERY 8 HOURS. No alcohol, recreational drugs, driving or operating machinery while taking this. Augmentin 875MG-125MG Oral Tablet 10/26/2023 11/06/2023 ORAL TWICE A DAY 1 TABLET 824 194 RxNorm TAKE 1 TABLET ORAL TWICE A DAY Augmentin 875MG-125MG Oral Tablet 11/06/2023 12/11/2023 ORAL TWICE A DAY 1 TABLET 824 194 RxNorm TAKE 1 TABLET ORAL TWICE A DAY Tessalon Perles 100MG Oral Capsule, Liquid Filled 11/06/2023 12/11/2023 ORAL NEEDED EVERY 6 HOURS 1 CAPSULE 208 365 RxNorm TAKE 1 CAPSULE ORAL NEEDED EVERY 6 HOURS Zithromax 250MG Oral Tablet 02/16/2024 03/29/2024 ORAL DAILY 1 TABLET 212 446 RxNorm TAKE 2 TABLETS ORAL DAILY ON DAY 1 AND THEN1 TABLET DAILY ON DAYS 2-5 Keflex 500MG Oral Capsule 03/29/2024 04/06/2024 ORAL THREE TIMES A DAY 1 CAPSULE 212 339 RxNorm TAKE 1 CAPSULE ORAL THREE TIMES A DAY Keflex 500MG Oral Capsule 04/06/2024 Unknown ORAL THREE TIMES A DAY 1 CAPSULE 212 339 RxNorm TAKE 1 CAPSULE ORAL THREE TIMES A DAY Assessment You had the following problems:TYPE 2 DIABETESHYPOTHYROIDISMDENTAL CARIESACUTE BRONCHITISSUPERFICIAL FOREIGN BODY, RIGHT FOOT, INITIAL ENCOUNTER Hospital Discharge Instructions Should you have any questions prior to discharge, please contact a member of your healthcare team. If you have left the hospital and have any questions, please contact your primary care physician. Reason For Referral No Data Found Problems Problem Start Date Resolved Date Status Code Code System TYPE 2 DIABETES active 69852026 SNOM ED-CT HYPOTHYROIDISM active 97327145 SNOME D-CT DENTAL CARIES active 91804455 SNOMED -CT ACUTE BRONCHITIS active 32152795 SNO MED-CT SUPERFICIAL FOREIGN BODY, RIGHT FOOT, INITIAL ENCOUNTER active 074922320 SNOMED-CT ASTHMA 03/03/2022 resolved 520566167 SNOMED-CT ANXIETY 01/19/2022 resolved 13406997 SNOMED-CT HLD 09/10/2022 resolved 21270901 SNOMED-CT Allergies and Adverse Reactions Allergy Substance Reaction Severity Start Date Concern Status Code Code System SULFA (sulfonamide) Anaphylaxis (SNOMED-CT: 55879484) Active 87093789 SNOMED-CT MORPHINE Hives (SNOMED-CT: 432455018), Itching (SNOMED-CT: 560593082) Moderate Active 7052 RxNorm BEE POLLEN Anaphylaxis (SNOMED-CT: 86683602) Active 919070 RxNorm DILAUDID Hives (SNOMED-CT: 446718115), Itching (SNOMED-CT: 297258558) Moderate Active 904330 RxNorm Plan of Treatment Symptoms 08/09/2021 US PELVIC / TV 11/06/2023 CT CHEST W/O CONTRAST 03/13/2023 CT CHEST W/O CONTRAST 03/04/2023 SYMPTOMS 10/19/2022 LAB DRAW 15MIN 08/02/2022 LAB DRAW 15MIN 05/25/2022 SYMPTOMS 04/28/2022 EXPOSURE 12/07/2021 SYMPTOMS 11/22/2021 SYMPTOMS 2021 Encounters Encounter Diagnosis Start Date Code Code Sys tem Exposure to SARS-CoV-2 11/22/2021 309240461 SNOME D-CT Personal Care Team Section Performer Name Performer Role Active Date Inactive Da campbell
--- OUTSIDE RECORDS SUMMARY | 2024-05-12 15:32 | XMS_ITS ---
Author Name Unknown Address [address], [place] [id number] Phone Organization Unknown Address [address] [place] [phone] Phone Care Team Providers Care Brilliandeer Looper Name Role Phone JUAN BARRAZA Registered Nurse Unavailable CARROLL Paredes Attending Unavailable CHAS Lopez Primary Unavailable UNLISTED PROVIDER - REQUESTED Xhandoff Un available Social History Type Status Start Date End Date Code Code Syst em Smoking History Current every day smoker 328747630 SNOMED CT Smoking History Former smoker 4153638 SNOMED CT Smoking History Current some day smoker 11/25/[address] Sex Female Vital Signs Vital Sign Value Unit [place] Value [place] Unit Date/Time Recent/Initial? Code Code System Body Mass Index 49.23 kg/m2 01/16/2022 23:09 Initial 69164 -5 LOINC Systolic Blood Pressure 156 mm[Hg] 01/16/2022 23:09 Initial 8480- 6 LOINC Diastolic Blood Pressure 93 mm[Hg] 01/16/2022 23:09 Initial 8462- 4 LOINC Body Surface Area 2.83 m2 01/16/2022 23:09 Initial 3140- 1 LOINC Height 180.340 0 cm 71.00 in 01/16/2022 23:09 Initial 8302- 2 LOINC O2 Saturation 100 % 2021 23:09 Initial 53829 -5 LOINC Pulse 92.0 /min 01/16/2022 23:09 Initial 8867- 4 LOINC Respiration 18 /min 01/16/20 23:09 Initial 9279- 1 LOINC Temperature 35.9 Teodora 96.6 F 01/16/20 23:09 Initial 8310- 5 [facility] Weight 160.12 kg 353.00 lbs 01/16/2022 23:09 Initial 62155 -7 [facility] Medications Medication Start Date End Date Route [...] Suspension 12/14/2022 06/02/2023 INHALATION NEEDED 1 unit(s) 745 752 RxNorm 1 EACH INHALATION NEEDED Trulicity [...] physician. Reason For Referral No Data Found Procedures Procedure Name Date Status Code Code Syste m C section completed 25752455 SNOMEDCT History of LEEP completed [id number] SNOME DCT Problems Problem Start Date Resolved Date Status Code Code System TYPE 2 DIABETES active 32096638 SNOM ED-CT HYPOTHYROIDISM active 10046036 SNOME D-CT DENTAL CARIES active 76095652 SNOMED -CT ACUTE BRONCHITIS active 08993039 SNO MED-CT SUPERFICIAL FOREIGN BODY, RIGHT FOOT, INITIAL ENCOUNTER active 859437141 SNOMED-CT ASTHMA 03/03/2022 resolved 157139396 SNOMED-CT ANXIETY 01/19/2022 resolved 24155491 SNOMED-CT HLD 09/10/2022 resolved 35686111 SNOMED-CT Allergies and Adverse Reactions Allergy Substance Reaction Severity Start Date Concern Status Code Code System SULFA (sulfonamide) Anaphylaxis (SNOMED-CT: 06716358) Active 45054473 SNOMED-CT MORPHINE Hives (SNOMED-CT: 031277219), Itching (SNOMED-CT: 984773214) Moderate Active 7052 RxNorm BEE POLLEN Anaphylaxis (SNOMED-CT: 74883870) Active 801269 RxNorm DILAUDID Hives (SNOMED-CT: 346286536), Itching (SNOMED-CT: 877053695) Moderate Active 606907 RxNorm Plan of Treatment Symptoms 08/09/2021 US PELVIC / TV 11/06/2023 CT CHEST W/O CONTRAST 03/13/2023 CT CHEST W/O CONTRAST 03/04/2023 SYMPTOMS 10/19/2022 LAB DRAW 15MIN 08/02/2022 LAB DRAW 15MIN 05/25/2022 SYMPTOMS 04/28/2022 EXPOSURE 12/07/2021 SYMPTOMS 11/22/2021 SYMPTOMS 2021 Encounters Encounter Diagnosis Start Date Code Code Sys tem Localized swelling, mass and lump, head 01/16/2022 SNOMED-CT Personal Care Team Section Performer Name Performer Role Active Date Inactive Da te
--- OUTSIDE RECORDS SUMMARY | 2024-05-12 15:32 | XMS_ITS ---
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 Furnace Operator Name Role Phone RUSSELL LUCIO Registered Nurse Unavailable DEMETRIA Ko Attending Unavailable [facility] Unavailable CHAS Lopez Primary Unavailable UNLISTED PROVIDER - REQUESTED Xhandoff Un available Results URINALYSIS WITH REFLEX CULT IF POSITIVE* - Collect Date/Time: 03/10/2022 10:30 [facility] ID: [id number] [address], [place], [address] LOINC: 92597-8 Test Value Unit Reference Range Code Code System Flag COLLECTION MODE: NOT STATED Color YELLOW yellow 5778-6 LOINC Appearance CLEAR clear 5767-9 LOINC Glucose urine NEGATIVE negative mg/dl 40119-3 LOINC Bilirubin NEGATIVE negative 5770-3 LOINC Ketones NEGATIVE negative mg/dl 2514-8 LOINC Spec gravity 1.020 1.003 - 1.030 5811-5 LOINC pH urine 7.0 5.0 - 7.0 2756-5 LOINC Protein NEGATIVE negative mg/dl 07426-2 LOINC Urobilinogen 0.2 <or= 1 EU/dl 68026-6 LOINC Nitrite. NEGATIVE negative 5802-4 LOINC Blood NEGATIVE negative 5794-3 LOINC Leukocytes. NEGATIVE negative MICROSCOPIC NOT INDICAT TROPONIN HIGH SENSITIVITY* - Collect Date/Time: 03/10/2022 10:15 [facility] ID: [id number] [address] [place] [address], [address] LOINC: 82271-2 Test Value Unit Reference Range Code Code System Flag TROPONIN HS 5.8 pg/mL L=0.0 H=60.4 Specimen seq. Random LIPASE* - Collect Date/Time: 03/10/2022 10:15 [facility] ID: [id number] [address] [place] [address], [id number] LOINC: 3040-3 Test Value Unit Reference Range Code Code System Flag LIPASE 97 U/L L=73 H=393 COMPREHENSIVE METABOLIC PANE L (CMP) - Collect Date/Time: 03/10/2022 10:15 [facility] ID: [id number] [address] [place] [address], [address] LOINC: 75412-7 Test Value Unit Reference Range Code Code System Flag GLUCOSE 191 mg/dL L=70 H=116 2345-7 LOINC H BUN 9 mg/dL L=6 H=25 3094-0 LOINC CREATININE 0.81 mg/dL L=0.51 H=0.95 2160-0 LOINC SODIUM SERUM 135 mmol/L L=136 H=145 2951-2 LOINC L POTASSIUM SERUM 4.2 mmol/L L=3.4 H=5.2 2823-3 LOINC CHLORIDE SERUM 101 mmol/L L=96 H=110 2075-0 LOINC CARBON DIOXIDE (CO2) 29 mmol/L L=22 H=34 2028-9 LOINC ANION GAP 5.1 mmol/L 79622-8 LOINC CALCIUM SERUM 9.1 mg/dL L=8.2 H=10.2 64913-6 LOINC BILIRUBIN TOTAL 0.4 mg/dL L=0.0 H=1.3 1975-2 LOINC ALK. PHOS. 80 U/L L=46 H=116 6768-6 LOINC SGOT (AST) 18 U/L L=15 H=37 1920-8 LOINC SGPT (ALT) 20 U/L L=12 H=78 1742-6 LOINC TOTAL PROTEIN 7.9 gm/dL L=6.0 H=8.0 2885-2 LOINC ALBUMIN 3.3 gm/dL L=3.4 H=5.0 1751-7 LOINC L AGE 41 years eGFR (non-Afr.Amer.) 78 mL/min 71062-8 LOINC eGFR (Afr-Gabonese) 95 mL/min 10405-8 LOINC CBC W/ DIFFERENTIAL* - Colle ct Date/Time: 03/10/2022 10:15 [facility] ID: [id number] [address], [place], [address] LOINC: 55777-0 Test Value Unit Reference Range Code Code System Flag WBC 11.52 th/cmm L=5.00 H=10.00 6690-2 LOINC H NEUT % 70.3 % L=40.0 H=80.0 LYMPH % 23.1 % L=10.0 H=50.0 MONO % 3.9 % L=2.0 H=12.0 53813-7 LOINC EOS % 1.9 % L=0.0 H=8.0 BASO % 0.5 % L=0.0 H=3.0 IG % 0.3 % L=0.0 H=1.1 2514-8 LOINC NRBC % 0.0 % L=0.0 H=0.0 96414-9 LOINC NEUT abs count 8.1 th/cmm L=1.6 H=8.4 751-8 LOINC LYMPH abs count 2.7 th/cmm L=1.5 H=4.0 731-0 LOINC MONO abs count 0.5 th/cmm L=0.2 H=1.0 742-7 LOINC EOS abs count 0.2 th/cmm L=0.0 H=0.5 711-2 LOINC BASO abs count 0.1 th/cmm L=0.0 H=0.2 704-7 LOINC IG abs count 0.0 th/cmm L=0.0 H=0.1 80780-5 LOINC NRBC abs count 0.0 mil/cmm L=0.0 H=0.0 59656-6 LOINC RBC 4.77 mil/cmm L=3.90 H=5.40 789-8 LOINC HEMOGLOBIN 13.7 gm/dL L=12.0 H=16.0 718-7 LOINC HEMATOCRIT 42 % L=37 H=47 4544-3 LOINC MCV 87 fL L=82 H=92 787-2 LOINC MCH 28.7 pg L=27.0 H=31.0 785-6 LOINC MCHC 33.0 % L=32.0 H=36.0 786-4 LOINC RDW-SD 43.4 fL L=39.0 H=49.0 788-0 LOINC PLATELET COUNT 324 th/cmm L=150 H=450 777-3 LOINC Social History Type Status Start Date End Date Code Code Syst em Smoking History Current every day smoker 911785543 SNOMED CT Smoking History Former smoker 8825363 SNOMED CT Smoking History Current some day smoker 11/25/[address] Sex Female Vital Signs Vital Sign Value Unit [place] Value [place] Unit Date/Time Recent/Initial? Code Code System Body Mass Index 48.40 kg/m2 03/10/2022 10:00 Initial 50616 -5 LOINC Systolic Blood Pressure 148 mm[Hg] 03/10/2022 10:00 Initial 8480- 6 LOINC Diastolic Blood Pressure 95 mm[Hg] 03/10/2022 10:00 Initial 8462- 4 LOINC Body Surface Area 2.81 m2 03/10/2022 10:00 Initial 3140- 1 LOINC Height 180.340 0 cm 71.00 in 03/10/2022 10:00 Initial 8302- 2 LOINC O2 Saturation 96 % 2021 10:51 Most Recent 33251 -5 LOINC O2 Saturation 100 % 2021 10:00 Initial 57668 -5 LOINC Pulse 82.0 /min 03/10/2022 10:51 Most Recent 8867- 4 LOINC Pulse 92.0 /min 03/10/2022 10:00 Initial 8867- 4 LOINC Respiration 16 /min 03/10/20 10:00 Initial 9279- 1 LOINC Temperature 36.1 Teodora 97.0 F 03/10/20 10:00 Initial 8310- 5 LOINC Weight 157.40 kg 347.00 lbs 03/10/2022 10:00 Initial 91075 -7 [facility] Medications Medication Start Date End Date Route Frequency Dose Code Code System Medication Instructions Home Meds Penicillin VK 500MG Oral Tablet 01/16/2022 05/02/2022 ORAL TWICE A DAY 1 TABLET 093950 RxNorm TAKE 1 TABLET ORAL TWICE A DAY Tessalon Perles 100MG Oral Capsule, Liquid Filled 05/02/2022 07/08/2022 ORAL NEEDED EVERY 6 HOURS 1 CAPSULE 530290 RxNorm TAKE 1 CAPSULE ORAL NEEDED EVERY 6 HOURS predniSONE 20MG Oral Tablet 05/02/2022 07/08/2022 ORAL DAILY 2 TABLET 044234 RxNorm TAKE 2 TABLET ORAL DAILY Penicillin VK 500MG Oral Tablet 07/08/2022 07/17/2022 ORAL FOUR TIMES A DAY 1 TABLET 321903 RxNorm TAKE 1 TABLET ORAL FOUR TIMES A DAY Ondansetron 4MG Oral Tablet, Disintegrating 07/17/2022 10/07/2022 ORAL NEEDED EVERY 6 HOURS 1 TABLET 026954 RxNorm TAKE 1 TABLET ORAL NEEDED EVERY 6 HOURS FOR Nausea/Vo miting HYDROcodone bitartrate-carlos taminophen 5MG-325MG Oral Tablet 07/17/2022 10/07/2022 ORAL NEEDED EVERY 4 HOURS 1 TABLET 764939 RxNorm TAKE 1 TABLET ORAL NEEDED EVERY 4 HOURS FOR Pain Ibuprofen 200MG Oral Tablet 07/17/2022 09/01/2023 ORAL EVERY 6 HOURS 3 TABLET 223967 RxNorm TAKE 3 TABLET ORAL EVERY 6 HOURS FOR 24 HOURS THEN NEEDED FOR PAIN Chlorhexidine Gluconate 0.12% Oral Liquid 07/17/2022 10/07/2022 ORAL THREE TIMES A DAY 5 mL RxNorm TAKE 5 mL ORAL SWISH AND SPIT THREE TIMES A DAY Bactrim DS 800MG-160MG Oral Tablet 09/04/2022 10/07/2022 ORAL TWICE A DAY 1 TABLET 258011 RxNorm TAKE 1 TABLET ORAL TWICE A DAY Benadryl Allergy 25MG Oral Tablet 09/11/2022 09/01/2023 ORAL EVERY 6 HOURS 2 TABLET 7898641 RxNorm TAKE 2 TABLET ORAL EVERY 6 HOURS Zofran 4MG Oral Tablet 10/07/2022 10/04/2023 ORAL NEEDED THREE TIMES A DAY 1 TABLET 827870 RxNorm TAKE 1 TABLET ORAL NEEDED THREE TIMES A DAY oxyCODONE HCl 5MG Oral Tablet 12/14/2022 09/01/2023 ORAL NEEDED EVERY 3 HOURS 5 MILLIGRAM S 3109624 RxNorm TAKE 5 MILLIGRAM S ORAL NEEDED EVERY 3 HOURS Atorvastatin Calcium 40MG Oral Tablet 12/14/2022 Unknown ORAL DAILY 40 MILLIGRAM S 298373 RxNorm TAKE 40 MILLIGRAM S ORAL DAILY Levothyroxine 200MCG Oral Tablet 12/14/2022 09/01/2023 ORAL DAILY 200 MCG 285992 RxNorm TAKE 200 MCG ORAL DAILY ProAir HFA 0.09MG/1Actuat ion Inhalation Suspension 12/14/2022 06/02/2023 INHALATI ON NEEDED 1 unit(s) 564596 RxNorm 1 EACH INHALATIO N NEEDED Trulicity 0.75MG/0.5ML Subcutaneous Solution 12/14/2022 09/01/2023 SUBCUTAN EOUS MONDAYS 1.5 MILLIGRAM S 0756149 RxNorm INJECT 1.5 MILLIGRAM S SUBCUTANE OUS MONDAYS metFORMIN HCl 500MG Oral Tablet 12/14/2022 06/01/2023 ORAL TWICE A DAY 1000 MILLIGRAM S 412527 RxNorm TAKE 1000 MILLIGRAM S ORAL TWICE A DAY predniSONE 20MG Oral Tablet 03/06/2023 06/02/2023 ORAL DAILY 1 TABLET 955908 RxNorm TAKE 1 TABLET ORAL DAILY Zithromax 250MG Oral Tablet 03/06/2023 06/02/2023 ORAL DAILY 1 TABLET 466391 RxNorm TAKE 2 TABLETS ORAL DAILY ON DAY 1 AND THEN1 TABLET DAILY ON DAYS 2-5 Albuterol Sulfate 0.09MG/1Actuat ion Inhalation Suspension 06/02/2023 Unknown INHALATI ON NEEDED EVERY 4 HOURS 2 PUFF 8259910 RxNorm 2 PUFF INHALATIO N EVERY 4 HOURS FOR 24 HOURS THEN NEEDED FOR Cough/Sandra rtness of breath Zithromax 250MG Oral Tablet 06/02/2023 06/10/2023 ORAL DAILY 1 TABLET 050838 RxNorm TAKE 1 TABLET ORAL DAILY predniSONE 20MG Oral Tablet 06/02/2023 06/10/2023 ORAL DAILY 3 TABLET 663802 RxNorm TAKE 3 TABLET ORAL DAILY Mucinex D 600MG-60mg Oral Tablet, Extended Release 06/02/2023 09/01/2023 ORAL TWICE A DAY 1 TABLET 5753833 RxNorm TAKE 1 TABLET ORAL TWICE A DAY FOR 3-5 DAYS Zithromax 250MG Oral Tablet 06/10/2023 09/01/2023 ORAL DAILY 1 TABLET 648082 RxNorm TAKE 2 TABLETS ORAL DAILY ON DAY 1 AND THEN1 TABLET DAILY ON DAYS 2-5 Ibuprofen 800MG Oral Tablet 08/28/2023 10/04/2023 ORAL EVERY 8 HOURS 1 TABLET 112765 RxNorm TAKE 1 TABLET ORAL EVERY 8 HOURS Penicillin VK 500MG Oral Tablet 08/28/2023 09/01/2023 ORAL THREE TIMES A DAY 1 TABLET 213088 RxNorm TAKE 1 TABLET ORAL THREE TIMES A DAY Tylenol 325MG Oral Tablet 09/01/2023 10/04/2023 ORAL NEEDED EVERY 6 HOURS 2 TABLET 100157 RxNorm TAKE 2 TABLET ORAL NEEDED EVERY 6 HOURS Anbesol Maximum Strength 20% Oromucosal Gel/Jelly 09/01/2023 10/04/2023 OROMUCOS AL THREE TIMES A DAY 1 RxNorm 1 OROMUCOSA L THREE TIMES A DAY Augmentin 875MG-125MG Oral Tablet 09/04/2023 10/04/2023 ORAL TWICE A DAY 1 TABLET 033835 RxNorm TAKE 1 TABLET ORAL TWICE A DAY Meclizine HCl 25MG Oral Tablet 10/04/2023 01/21/2024 ORAL NEEDED EVERY 8 HOURS 1 TABLET 507551 RxNorm TAKE 1 TABLET ORAL NEEDED EVERY 8 HOURS. No alcohol, recreatio nal drugs, driving or operating machinery while taking this. Augmentin 875MG-125MG Oral Tablet 10/26/2023 11/06/2023 ORAL TWICE A DAY 1 TABLET 872404 RxNorm TAKE 1 TABLET ORAL TWICE A DAY Augmentin 875MG-125MG Oral Tablet 11/06/2023 12/11/2023 ORAL TWICE A DAY 1 TABLET 204033 RxNorm TAKE 1 TABLET ORAL TWICE A DAY Tessalon Perles 100MG Oral Capsule, Liquid Filled 11/06/2023 12/11/2023 ORAL NEEDED EVERY 6 HOURS 1 CAPSULE 749407 RxNorm TAKE 1 CAPSULE ORAL NEEDED EVERY 6 HOURS Zithromax 250MG Oral Tablet 02/16/2024 03/29/2024 ORAL DAILY 1 TABLET 045688 RxNorm TAKE 2 TABLETS ORAL DAILY ON DAY 1 AND THEN1 TABLET DAILY ON DAYS 2-5 Keflex 500MG Oral Capsule 03/29/2024 04/06/2024 ORAL THREE TIMES A DAY 1 CAPSULE 431518 RxNorm TAKE 1 CAPSULE ORAL THREE TIMES A DAY Keflex 500MG Oral Capsule 04/06/2024 Unknown ORAL THREE TIMES A DAY 1 CAPSULE 571504 RxNorm TAKE 1 CAPSULE ORAL THREE TIMES [...] Code Code System TYPE 2 DIABETES active 48540565 SNOM ED-CT HYPOTHYROIDISM active 44528528 SNOME D-CT DENTAL CARIES active 07673650 SNOMED -CT ACUTE BRONCHITIS active 99287904 SNO MED-CT SUPERFICIAL FOREIGN BODY, RIGHT FOOT, INITIAL ENCOUNTER active 871703168 SNOMED-CT ASTHMA 03/03/2022 resolved 569269922 SNOMED-CT ANXIETY 01/19/2022 resolved 70372353 SNOMED-CT HLD 09/10/2022 resolved 30964939 SNOMED-CT Allergies and Adverse Reactions Allergy Substance Reaction Severity Start Date Concern Status Code Code System SULFA (sulfonamide) Anaphylaxis (SNOMED-CT: 94835684) Active 50471193 SNOMED-CT MORPHINE Hives (SNOMED-CT: 510807183), Itching (SNOMED-CT: 206653195) Moderate Active 7052 RxNorm BEE POLLEN Anaphylaxis (SNOMED-CT: 59976539) Active 312375 RxNorm DILAUDID Hives (SNOMED-CT: 732282595), Itching (SNOMED-CT: 834838196) Moderate Active 504572 RxNorm Plan of Treatment Symptoms 08/09/2021 US PELVIC / TV 11/06/2023 CT CHEST W/O CONTRAST 03/13/2023 CT CHEST W/O CONTRAST 03/04/2023 SYMPTOMS 10/19/2022 LAB DRAW 15MIN 08/02/2022 LAB DRAW 15MIN 05/25/2022 SYMPTOMS 04/28/2022 EXPOSURE 12/07/2021 SYMPTOMS 11/22/2021 SYMPTOMS 2021 Encounters Encounter Diagnosis Start Date Code Code Sys tem Epilepsy, unspecified, not i ntractable, without status epilepticus 03/10/2022 SNOMED-CT Personal Care Team Section Performer Name Performer Role Active Date Inactive Da te
--- OUTSIDE RECORDS SUMMARY | 2024-05-12 15:32 | XMS_ITS ---
Author Name Unknown Address [address], [place] [id number] Phone Organization Unknown Address [address] [place] [phone] Phone Care Team Providers Care Birthing Nurse Name Role Phone ARTURO VEGA Registered Nurse Unavailable CARROLL Paredes Attending Unavailable CHAS Lopez Primary Unavailable UNLISTED PROVIDER - REQUESTED Xhandoff Un available Results URINALYSIS WITH REFLEX CULT IF POSITIVE* - Collect Date/Time: 03/04/2022 00:15 [facility] ID: [id number] [address] [place], [place], [address] LOINC: 25668-1 Test Value Unit Reference Range Code Code System Flag COLLECTION MODE: CLEAN CATCH Color YELLOW yellow 5778-6 LOINC Appearance CLEAR clear 5767-9 LOINC Glucose urine NEGATIVE negative mg/dl 27892-5 LOINC Bilirubin NEGATIVE negative 5770-3 LOINC Ketones NEGATIVE negative mg/dl 2514-8 LOINC Spec gravity 1.010 1.003 - 1.030 5811-5 LOINC pH urine 5.5 5.0 - 7.0 2756-5 LOINC Protein NEGATIVE negative mg/dl 50866-7 LOINC Urobilinogen 0.2 <or= 1 EU/dl 74749-4 LOINC Nitrite. NEGATIVE negative 5802-4 LOINC Blood NEGATIVE negative 5794-3 LOINC Leukocytes. NEGATIVE negative MICROSCOPIC NOT INDICAT TEST (URINE) QUALI TATIVE - Collect Date/Time: 03/04/2022 00:15 [facility] ID: [id number] [address] [place], [place], [address] LOINC: 2106-3 Test Value Unit Reference Range Code Code System Flag TEST NEGATIVE 2106-3 LOINC HCG QUANTITATIVE WHOLE MOLEC ULE* - Collect Date/Time: 03/03/2022 22:45 [facility] ID: [id number] [address] [place] [address], [address] LOINC: 09813-0 Test Value Unit Reference Range Code Code System Flag HCG, total+Beta subs 1 87847-5 LOINC LIPASE* - Collect Date/Time: 03/03/2022 22:45 [facility] ID: [id number] [address] [place] [address], [phone] LOINC: 3040-3 Test Value Unit Reference Range Code Code System Flag LIPASE 112 U/L L=73 H=393 COMPREHENSIVE METABOLIC PANE L (CMP) - Collect Date/Time: 03/03/2022 22:45 [facility] ID: [id number] [address] [place] [address], [address] LOINC: 59938-0 Test Value Unit Reference Range Code Code System Flag GLUCOSE 199 mg/dL L=70 H=116 2345-7 LOINC H BUN 11 mg/dL L=6 H=25 3094-0 LOINC CREATININE 0.95 mg/dL L=0.51 H=0.95 2160-0 LOINC SODIUM SERUM 135 mmol/L L=136 H=145 2951-2 LOINC L POTASSIUM SERUM 3.6 mmol/L L=3.4 H=5.2 2823-3 LOINC CHLORIDE SERUM 101 mmol/L L=96 H=110 2075-0 LOINC CARBON DIOXIDE (CO2) 29 mmol/L L=22 H=34 2028-9 LOINC ANION GAP 5.0 mmol/L 09703-5 LOINC CALCIUM SERUM 9.4 mg/dL L=8.2 H=10.2 58865-1 LOINC BILIRUBIN TOTAL 0.2 mg/dL L=0.0 H=1.3 1975-2 LOINC ALK. PHOS. 80 U/L L=46 H=116 6768-6 LOINC SGOT (AST) 16 U/L L=15 H=37 1920-8 LOINC SGPT (ALT) 20 U/L L=12 H=78 1742-6 LOINC TOTAL PROTEIN 7.8 gm/dL L=6.0 H=8.0 2885-2 LOINC ALBUMIN 3.3 gm/dL L=3.4 H=5.0 1751-7 LOINC L AGE 41 years eGFR (non-Afr.Amer.) 65 mL/min 40697-9 LOINC eGFR (Afr-Polish) 79 mL/min 08623-6 LOINC CBC W/ DIFFERENTIAL* - Colle ct Date/Time: 03/03/2022 22:45 [facility] ID: [id number] [address], [place], [address] LOINC: 29568-2 Test Value Unit Reference Range Code Code System Flag WBC 13.46 th/cmm L=5.00 H=10.00 6690-2 LOINC H NEUT % 66.8 % L=40.0 H=80.0 LYMPH % 27.9 % L=10.0 H=50.0 MONO % 3.0 % L=2.0 H=12.0 88716-6 LOINC EOS % 1.5 % L=0.0 H=8.0 BASO % 0.4 % L=0.0 H=3.0 IG % 0.4 % L=0.0 H=1.1 2514-8 LOINC NRBC % 0.0 % L=0.0 H=0.0 94257-7 LOINC NEUT abs count 9.0 th/cmm L=1.6 H=8.4 751-8 LOINC H LYMPH abs count 3.8 th/cmm L=1.5 H=4.0 731-0 LOINC MONO abs count 0.4 th/cmm L=0.2 H=1.0 742-7 LOINC EOS abs count 0.2 th/cmm L=0.0 H=0.5 711-2 LOINC BASO abs count 0.1 th/cmm L=0.0 H=0.2 704-7 LOINC IG abs count 0.1 th/cmm L=0.0 H=0.1 84539-2 LOINC NRBC abs count 0.0 mil/cmm L=0.0 H=0.0 86632-0 LOINC RBC 4.63 mil/cmm L=3.90 H=5.40 789-8 LOINC HEMOGLOBIN 13.5 gm/dL L=12.0 H=16.0 718-7 LOINC HEMATOCRIT 41 % L=37 H=47 4544-3 LOINC MCV 88 fL L=82 H=92 787-2 LOINC MCH 29.2 pg L=27.0 H=31.0 785-6 LOINC MCHC 33.3 % L=32.0 H=36.0 786-4 LOINC RDW-SD 43.8 fL L=39.0 H=49.0 788-0 LOINC PLATELET COUNT 357 th/cmm L=150 H=450 777-[address] ABD + PELV W CONTRAST - C ompleted: 03/03/2022 23:46 LOINC: Radiation optimization:?? Al l CT scans at this facility use at least one of these dose optimization techniques: automated exposure control; mA and/or kV adjustment per patient size (includes targeted exams where dose is matched to clinical indication); or iterative reconstruction. ABDOMINAL AND PELVIC CT: CT examination of the abdomen and pelvis was performed with a bolus infusion of 100 cc Omnipaque 350. Images obtained through the lung bases are unremarkable. Liver is mildly enlarged. There is a question of mild hepatic contour nodularity, rule out cirrhosis. Prior cholecystectomy noted. No biliary dilatation. Pancreas and spleen appear normal. Abdominal aorta and major visceral branches appear intact. No significant abdominal wall hernia. No significant abdominal or pelvic adenopathy. Adrenals appear normal bilaterally. There is an apparent 1-1.5 cm in diameter left renal cyst. There is a heterogenous apparently solid lesion of the lower pole of the right kidney measuring 3-4 cm in diameter suspicious renal neoplasm. This was not present prior CT of 04/2015. No urinary tract calcification or obstruction. Urinary bladder unremarkable in appearance. Appendix is normal. No evidence of diverticulitis or bowel obstruction. [employer] structures are unremarkable. CONCLUSION: Right lower pole renal mass, 3-4 cm in diameter, suspicious for renal carcinoma. No other significant findings. Dictated by: JOSIE BARDALES RADIOLOGIST Transcribed by: ALEX 03/05/22/08:06 [id number] Electronically Reviewed and Signed By: ARTEMIO BARDALES RADIOLOGIST 03/06/22 08:16 Copy for: 185 HEALTH INFORMATION MGMT DISCHARGED Social History Type Status Start Date End Date Code Code Syst em Smoking History Current every day smoker 289094437 SNOMED CT Smoking History Former smoker 0661697 SNOMED CT Smoking History Current some day smoker 11/25/[id number] Sex Female Vital Signs Vital Sign Value Unit [facility] Date/Time Recent/Initial? Code Code System Body Mass Index 49.23 kg/m2 03/03/2022 22:22 Initial 82130 -5 [facility] Systolic Blood Pressure 126 mm[Hg] 03/03/2022 22:22 Initial 8480- 6 LOINC Diastolic Blood Pressure 58 mm[Hg] 03/03/2022 22:22 Initial 8462- 4 LOINC Body Surface Area 2.83 m2 03/03/2022 22:22 Initial 3140- 1 LOINC Height 180.340 0 cm 71.00 in 03/03/2022 22:22 Initial 8302- 2 LOINC O2 Saturation 96 % 2021 22:22 Initial 12359 -5 [facility] Pulse 98.0 /min 03/03/2022 22:22 Initial 8867- 4 LOINC Respiration 17 /min 03/03/20 22:22 Initial 9279- 1 LOINC Temperature 36.6 Teodora 97.9 F 03/03/20 22:22 Initial 8310- 5 [facility] Weight 160.12 kg 353.00 lbs 03/03/2022 22:22 Initial 26849 -7 [facility] Medications Medication Start Date End Date Route Frequency Dose Code Code System Medication Instructions Home Meds Penicillin VK 500MG Oral Tablet 01/16/2022 05/02/2022 ORAL TWICE A DAY 1 TABLET 596829 RxNorm TAKE 1 TABLET ORAL TWICE A DAY Tessalon Perles 100MG Oral Capsule, Liquid Filled 05/02/2022 07/08/2022 ORAL NEEDED EVERY 6 HOURS 1 CAPSULE 391822 RxNorm TAKE 1 CAPSULE ORAL NEEDED EVERY 6 HOURS predniSONE 20MG Oral Tablet 05/02/2022 07/08/2022 ORAL DAILY 2 TABLET 935171 RxNorm TAKE 2 TABLET ORAL DAILY Penicillin VK 500MG Oral Tablet 07/08/2022 07/17/2022 ORAL FOUR TIMES A DAY 1 TABLET 824908 RxNorm TAKE 1 TABLET ORAL FOUR TIMES A DAY Ondansetron 4MG Oral Tablet, Disintegrating 07/17/2022 10/07/2022 ORAL NEEDED EVERY 6 HOURS 1 TABLET 426637 RxNorm TAKE 1 TABLET ORAL NEEDED EVERY 6 HOURS FOR Nausea/Vo miting HYDROcodone bitartrate-carlos taminophen 5MG-325MG Oral Tablet 07/17/2022 10/07/2022 ORAL NEEDED EVERY 4 HOURS 1 TABLET 330303 RxNorm TAKE 1 TABLET ORAL NEEDED EVERY 4 HOURS FOR Pain Ibuprofen 200MG Oral Tablet 07/17/2022 09/01/2023 ORAL EVERY 6 HOURS 3 TABLET 699372 RxNorm TAKE 3 TABLET ORAL EVERY 6 HOURS FOR 24 HOURS THEN NEEDED FOR PAIN Chlorhexidine Gluconate 0.12% Oral Liquid 07/17/2022 10/07/2022 ORAL THREE TIMES A DAY 5 mL RxNorm TAKE 5 mL ORAL SWISH AND SPIT THREE TIMES A DAY Bactrim DS 800MG-160MG Oral Tablet 09/04/2022 10/07/2022 ORAL TWICE A DAY 1 TABLET 978309 RxNorm TAKE 1 TABLET ORAL TWICE A DAY Benadryl Allergy 25MG Oral Tablet 09/11/2022 09/01/2023 ORAL EVERY 6 HOURS 2 TABLET 6915421 RxNorm TAKE 2 TABLET ORAL EVERY 6 HOURS Zofran 4MG Oral Tablet 10/07/2022 10/04/2023 ORAL NEEDED THREE TIMES A DAY 1 TABLET 176714 RxNorm TAKE 1 TABLET ORAL NEEDED THREE TIMES A DAY oxyCODONE HCl 5MG Oral Tablet 12/14/2022 09/01/2023 ORAL NEEDED EVERY 3 HOURS 5 MILLIGRAM S 3646549 RxNorm TAKE 5 MILLIGRAM S ORAL NEEDED EVERY 3 HOURS Atorvastatin Calcium 40MG Oral Tablet 12/14/2022 Unknown ORAL DAILY 40 MILLIGRAM S 866160 RxNorm TAKE 40 MILLIGRAM S ORAL DAILY Levothyroxine 200MCG Oral Tablet 12/14/2022 09/01/2023 ORAL DAILY 200 MCG 807923 RxNorm TAKE 200 MCG ORAL DAILY ProAir HFA 0.09MG/1Actuat ion Inhalation Suspension 12/14/2022 06/02/2023 INHALATI ON NEEDED 1 unit(s) 396029 RxNorm 1 EACH INHALATIO N NEEDED Trulicity 0.75MG/0.5ML Subcutaneous Solution 12/14/2022 09/01/2023 SUBCUTAN EOUS MONDAYS 1.5 MILLIGRAM S 6875980 RxNorm INJECT 1.5 MILLIGRAM S SUBCUTANE OUS MONDAYS metFORMIN HCl 500MG Oral Tablet 12/14/2022 06/01/2023 ORAL TWICE A DAY 1000 MILLIGRAM S 738909 RxNorm TAKE 1000 MILLIGRAM S ORAL TWICE A DAY predniSONE 20MG Oral Tablet 03/06/2023 06/02/2023 ORAL DAILY 1 TABLET 087027 RxNorm TAKE 1 TABLET ORAL DAILY Zithromax 250MG Oral Tablet 03/06/2023 06/02/2023 ORAL DAILY 1 TABLET 200494 RxNorm TAKE 2 TABLETS ORAL DAILY ON DAY 1 AND THEN1 TABLET DAILY ON DAYS 2-5 Albuterol Sulfate 0.09MG/1Actuat ion Inhalation Suspension 06/02/2023 Unknown INHALATI ON NEEDED EVERY 4 HOURS 2 PUFF 8462271 RxNorm 2 PUFF INHALATIO N EVERY 4 HOURS FOR 24 HOURS THEN NEEDED FOR Cough/Sandra rtness of breath Zithromax 250MG Oral Tablet 06/02/2023 06/10/2023 ORAL DAILY 1 TABLET 195712 RxNorm TAKE 1 TABLET ORAL DAILY predniSONE 20MG Oral Tablet 06/02/2023 06/10/2023 ORAL DAILY 3 TABLET 869638 RxNorm TAKE 3 TABLET ORAL DAILY Mucinex D 600MG-60mg Oral Tablet, Extended Release 06/02/2023 09/01/2023 ORAL TWICE A DAY 1 TABLET 3574254 RxNorm TAKE 1 TABLET ORAL TWICE A DAY FOR 3-5 DAYS Zithromax 250MG Oral Tablet 06/10/2023 09/01/2023 ORAL DAILY 1 TABLET 463869 RxNorm TAKE 2 TABLETS ORAL DAILY ON DAY 1 AND THEN1 TABLET DAILY ON DAYS 2-5 Ibuprofen 800MG Oral Tablet 08/28/2023 10/04/2023 ORAL EVERY 8 HOURS 1 TABLET 644436 RxNorm TAKE 1 TABLET ORAL EVERY 8 HOURS Penicillin VK 500MG Oral Tablet 08/28/2023 09/01/2023 ORAL THREE TIMES A DAY 1 TABLET 398468 RxNorm TAKE 1 TABLET ORAL THREE TIMES A DAY Tylenol 325MG Oral Tablet 09/01/2023 10/04/2023 ORAL NEEDED EVERY 6 HOURS 2 TABLET 826731 RxNorm TAKE 2 TABLET ORAL NEEDED EVERY 6 HOURS Anbesol Maximum Strength 20% Oromucosal Gel/Jelly 09/01/2023 10/04/2023 OROMUCOS AL THREE TIMES A DAY 1 RxNorm 1 OROMUCOSA L THREE TIMES A DAY Augmentin 875MG-125MG Oral Tablet 09/04/2023 10/04/2023 ORAL TWICE A DAY 1 TABLET 728353 RxNorm TAKE 1 TABLET ORAL TWICE A DAY Meclizine HCl 25MG Oral Tablet 10/04/2023 01/21/2024 ORAL NEEDED EVERY 8 HOURS 1 TABLET 088255 RxNorm TAKE 1 TABLET ORAL NEEDED EVERY 8 HOURS. No alcohol, recreatio nal drugs, driving or operating machinery while taking this. Augmentin 875MG-125MG Oral Tablet 10/26/2023 11/06/2023 ORAL TWICE A DAY 1 TABLET 117845 RxNorm TAKE 1 TABLET ORAL TWICE A DAY Augmentin 875MG-125MG Oral Tablet 11/06/2023 12/11/2023 ORAL TWICE A DAY 1 TABLET 636615 RxNorm TAKE 1 TABLET ORAL TWICE A DAY Tessalon Perles 100MG Oral Capsule, Liquid Filled 11/06/2023 12/11/2023 ORAL NEEDED EVERY 6 HOURS 1 CAPSULE 165112 RxNorm TAKE 1 CAPSULE ORAL NEEDED EVERY 6 HOURS Zithromax 250MG Oral Tablet 02/16/2024 03/29/2024 ORAL DAILY 1 TABLET 819168 RxNorm TAKE 2 TABLETS ORAL DAILY ON DAY 1 AND THEN1 TABLET DAILY ON DAYS 2-5 Keflex 500MG Oral Capsule 03/29/2024 04/06/2024 ORAL THREE TIMES A DAY 1 CAPSULE 772585 RxNorm TAKE 1 CAPSULE ORAL THREE TIMES A DAY Keflex 500MG Oral Capsule 04/06/2024 Unknown ORAL THREE TIMES A DAY 1 CAPSULE 913101 RxNorm TAKE 1 CAPSULE ORAL THREE TIMES [...] Code Code System TYPE 2 DIABETES active 97703363 SNOM ED-CT HYPOTHYROIDISM active 54158821 SNOME D-CT DENTAL CARIES active 59579990 SNOMED -CT ACUTE BRONCHITIS active 61236737 SNO MED-CT SUPERFICIAL FOREIGN BODY, RIGHT FOOT, INITIAL ENCOUNTER active 625118566 SNOMED-CT ASTHMA 03/03/2022 resolved 577283517 SNOMED-CT ANXIETY 01/19/2022 resolved 30667776 SNOMED-CT HLD 09/10/2022 resolved 96575581 SNOMED-CT Allergies and Adverse Reactions Allergy Substance Reaction Severity Start Date Concern Status Code Code System SULFA (sulfonamide) Anaphylaxis (SNOMED-CT: 66366648) Active 82036511 SNOMED-CT MORPHINE Hives (SNOMED-CT: 818934427), Itching (SNOMED-CT: 549750924) Moderate Active 7052 RxNorm BEE POLLEN Anaphylaxis (SNOMED-CT: 36180165) Active 209254 RxNorm DILAUDID Hives (SNOMED-CT: 549925022), Itching (SNOMED-CT: 180794429) Moderate Active 010017 RxNorm Plan of Treatment Symptoms 08/09/2021 US PELVIC / TV 11/06/2023 CT CHEST W/O CONTRAST 03/13/2023 CT CHEST W/O CONTRAST 03/04/2023 SYMPTOMS 10/19/2022 LAB DRAW 15MIN 08/02/2022 LAB DRAW 15MIN 05/25/2022 SYMPTOMS 04/28/2022 EXPOSURE 12/07/2021 SYMPTOMS 11/22/2021 SYMPTOMS 2021 Encounters Encounter Diagnosis Start Date Code Code Sys tem Noninfective gastroenteritis and colitis, unspecified 03/03/2022 SNOMED-CT Personal Care Team Section Performer Name Performer Role Active Date Inactive Da campbell
--- OUTSIDE RECORDS SUMMARY | 2024-05-12 15:33 | XMS_ITS ---
Author Name Unknown Address [address] [place] [phone] Phone Organization Unknown Address [address] [place] [address] [phone] Phone Care Team Providers Care Media Production Operator Name Role Phone ELLIE AVILA Registered Nurse Unavailab dallas Arrington Attending Unavailable CHAS Lopez Primary Unavailable UNLISTED PROVIDER - REQUESTED Xhandoff Un available Results [facility]* - Brijesh ect Date/Time: 05/02/2022 22:00 [facility] ID: [id number] [address] [place], [place], [id number] LOINC: 91248-1 Test Value Unit Reference Range Code Code System Flag Tier- SYMPTOMS 39440-4 LOINC SARS COV2 RNA: NEGATIVE REFERENCE RAN GE: NEGAT 51324-2 LOINC XR CHEST 2V PA AND LATERAL - Completed: 05/03/2022 05:31 LOINC: PA AND LATERAL CHEST: Comparison is made with January 16. The lungs are suboptimally inflated on the PA view but appear clear. The heart size is normal. IMPRESSION:Negative chest x-ray. Dictated by: CEO KILEY MICHEL MD Transcribed by: DELMI 05/03/22/13:39 D April 8:38:27 AM [id number] Electronically Reviewed and Signed By: KILEY MICHEL MD 05/03/22 14:10 Copy for: 185 HEALTH INFORMATION MGMT DISCHARGED Social History Type Status Start Date End Date Code Code Syst em Smoking History Current every day smoker 201748219 SNOMED CT Smoking History Former smoker 8999474 SNOMED CT Smoking History Current some day smoker 11/25/[address] Sex Female Vital Signs Vital Sign Value Unit [place] Value [place] Unit Date/Time Recent/Initial? Code Code System Body Mass Index 49.09 kg/m2 05/02/2022 21:25 Initial 22381 -5 LOINC Systolic Blood Pressure 114 mm[Hg] 05/02/2022 21:25 Initial 8480- 6 LOINC Diastolic Blood Pressure 63 mm[Hg] 05/02/2022 21:25 Initial 8462- 4 LOINC Body Surface Area 2.83 m2 05/02/2022 21:25 Initial 3140- 1 LOINC Height 180.340 0 cm 71.00 in 05/02/2022 21:25 Initial 8302- 2 LOINC O2 Saturation 97 % 2021 21:25 Initial 20064 -5 LOINC Pulse 94.0 /min 05/02/2022 21:25 Initial 8867- 4 LOINC Respiration 17 /min 05/02/20 21:25 Initial 9279- 1 LOINC Temperature 37.1 Teodora 98.8 F 05/02/20 21:25 Initial 8310- 5 LOINC Weight 159.66 kg 352.00 lbs 05/02/2022 21:25 Initial 35544 -7 [facility] Medications Medication Start Date End Date Route Frequency Dose Code Code System Medication Instructions Home Meds Penicillin VK 500MG Oral Tablet 01/16/2022 05/02/2022 ORAL TWICE A DAY 1 TABLET 636500 RxNorm TAKE 1 TABLET ORAL TWICE A DAY Tessalon Perles 100MG Oral Capsule, Liquid Filled 05/02/2022 07/08/2022 ORAL NEEDED EVERY 6 HOURS 1 CAPSULE 549962 RxNorm TAKE 1 CAPSULE ORAL NEEDED EVERY 6 HOURS predniSONE 20MG Oral Tablet 05/02/2022 07/08/2022 ORAL DAILY 2 TABLET 523796 RxNorm TAKE 2 TABLET ORAL DAILY Penicillin VK 500MG Oral Tablet 07/08/2022 07/17/2022 ORAL FOUR TIMES A DAY 1 TABLET 401336 RxNorm TAKE 1 TABLET ORAL FOUR TIMES A DAY Ondansetron 4MG Oral Tablet, Disintegrating 07/17/2022 10/07/2022 ORAL NEEDED EVERY 6 HOURS 1 TABLET 714231 RxNorm TAKE 1 TABLET ORAL NEEDED EVERY 6 HOURS FOR Nausea/Vo miting HYDROcodone bitartrate-carlos taminophen 5MG-325MG Oral Tablet 07/17/2022 10/07/2022 ORAL NEEDED EVERY 4 HOURS 1 TABLET 003270 RxNorm TAKE 1 TABLET ORAL NEEDED EVERY 4 HOURS FOR Pain Ibuprofen 200MG Oral Tablet 07/17/2022 09/01/2023 ORAL EVERY 6 HOURS 3 TABLET 230602 RxNorm TAKE 3 TABLET ORAL EVERY 6 HOURS FOR 24 HOURS THEN NEEDED FOR PAIN Chlorhexidine Gluconate 0.12% Oral Liquid 07/17/2022 10/07/2022 ORAL THREE TIMES A DAY 5 mL RxNorm TAKE 5 mL ORAL SWISH AND SPIT THREE TIMES A DAY Bactrim DS 800MG-160MG Oral Tablet 09/04/2022 10/07/2022 ORAL TWICE A DAY 1 TABLET 290404 RxNorm TAKE 1 TABLET ORAL TWICE A DAY Benadryl Allergy 25MG Oral Tablet 09/11/2022 09/01/2023 ORAL EVERY 6 HOURS 2 TABLET 3424331 RxNorm TAKE 2 TABLET ORAL EVERY 6 HOURS Zofran 4MG Oral Tablet 10/07/2022 10/04/2023 ORAL NEEDED THREE TIMES A DAY 1 TABLET 752330 RxNorm TAKE 1 TABLET ORAL NEEDED THREE TIMES A DAY oxyCODONE HCl 5MG Oral Tablet 12/14/2022 09/01/2023 ORAL NEEDED EVERY 3 HOURS 5 MILLIGRAM S 5679240 RxNorm TAKE 5 MILLIGRAM S ORAL NEEDED EVERY 3 HOURS Atorvastatin Calcium 40MG Oral Tablet 12/14/2022 Unknown ORAL DAILY 40 MILLIGRAM S 063538 RxNorm TAKE 40 MILLIGRAM S ORAL DAILY Levothyroxine 200MCG Oral Tablet 12/14/2022 09/01/2023 ORAL DAILY 200 MCG 568046 RxNorm TAKE 200 MCG ORAL DAILY ProAir HFA 0.09MG/1Actuat ion Inhalation Suspension 12/14/2022 06/02/2023 INHALATI ON NEEDED 1 unit(s) 840597 RxNorm 1 EACH INHALATIO N NEEDED Trulicity 0.75MG/0.5ML Subcutaneous Solution 12/14/2022 09/01/2023 SUBCUTAN EOUS MONDAYS 1.5 MILLIGRAM S 8154689 RxNorm INJECT 1.5 MILLIGRAM S SUBCUTANE OUS MONDAYS metFORMIN HCl 500MG Oral Tablet 12/14/2022 06/01/2023 ORAL TWICE A DAY 1000 MILLIGRAM S 862600 RxNorm TAKE 1000 MILLIGRAM S ORAL TWICE A DAY predniSONE 20MG Oral Tablet 03/06/2023 06/02/2023 ORAL DAILY 1 TABLET 068909 RxNorm TAKE 1 TABLET ORAL DAILY Zithromax 250MG Oral Tablet 03/06/2023 06/02/2023 ORAL DAILY 1 TABLET 494071 RxNorm TAKE 2 TABLETS ORAL DAILY ON DAY 1 AND THEN1 TABLET DAILY ON DAYS 2-5 Albuterol Sulfate 0.09MG/1Actuat ion Inhalation Suspension 06/02/2023 Unknown INHALATI ON NEEDED EVERY 4 HOURS 2 PUFF 9710459 RxNorm 2 PUFF INHALATIO N EVERY 4 HOURS FOR 24 HOURS THEN NEEDED FOR Cough/Sandra rtness of breath Zithromax 250MG Oral Tablet 06/02/2023 06/10/2023 ORAL DAILY 1 TABLET 390803 RxNorm TAKE 1 TABLET ORAL DAILY predniSONE 20MG Oral Tablet 06/02/2023 06/10/2023 ORAL DAILY 3 TABLET 123544 RxNorm TAKE 3 TABLET ORAL DAILY Mucinex D 600MG-60mg Oral Tablet, Extended Release 06/02/2023 09/01/2023 ORAL TWICE A DAY 1 TABLET 6172023 RxNorm TAKE 1 TABLET ORAL TWICE A DAY FOR 3-5 DAYS Zithromax 250MG Oral Tablet 06/10/2023 09/01/2023 ORAL DAILY 1 TABLET 816538 RxNorm TAKE 2 TABLETS ORAL DAILY ON DAY 1 AND THEN1 TABLET DAILY ON DAYS 2-5 Ibuprofen 800MG Oral Tablet 08/28/2023 10/04/2023 ORAL EVERY 8 HOURS 1 TABLET 937670 RxNorm TAKE 1 TABLET ORAL EVERY 8 HOURS Penicillin VK 500MG Oral Tablet 08/28/2023 09/01/2023 ORAL THREE TIMES A DAY 1 TABLET 530284 RxNorm TAKE 1 TABLET ORAL THREE TIMES A DAY Tylenol 325MG Oral Tablet 09/01/2023 10/04/2023 ORAL NEEDED EVERY 6 HOURS 2 TABLET 791862 RxNorm TAKE 2 TABLET ORAL NEEDED EVERY 6 HOURS Anbesol Maximum Strength 20% Oromucosal Gel/Jelly 09/01/2023 10/04/2023 OROMUCOS AL THREE TIMES A DAY 1 RxNorm 1 OROMUCOSA L THREE TIMES A DAY Augmentin 875MG-125MG Oral Tablet 09/04/2023 10/04/2023 ORAL TWICE A DAY 1 TABLET 551906 RxNorm TAKE 1 TABLET ORAL TWICE A DAY Meclizine HCl 25MG Oral Tablet 10/04/2023 01/21/2024 ORAL NEEDED EVERY 8 HOURS 1 TABLET 567395 RxNorm TAKE 1 TABLET ORAL NEEDED EVERY 8 HOURS. No alcohol, recreatio nal drugs, driving or operating machinery while taking this. Augmentin 875MG-125MG Oral Tablet 10/26/2023 11/06/2023 ORAL TWICE A DAY 1 TABLET 936325 RxNorm TAKE 1 TABLET ORAL TWICE A DAY Augmentin 875MG-125MG Oral Tablet 11/06/2023 12/11/2023 ORAL TWICE A DAY 1 TABLET 280350 RxNorm TAKE 1 TABLET ORAL TWICE A DAY Tessalon Perles 100MG Oral Capsule, Liquid Filled 11/06/2023 12/11/2023 ORAL NEEDED EVERY 6 HOURS 1 CAPSULE 819824 RxNorm TAKE 1 CAPSULE ORAL NEEDED EVERY 6 HOURS Zithromax 250MG Oral Tablet 02/16/2024 03/29/2024 ORAL DAILY 1 TABLET 330525 RxNorm TAKE 2 TABLETS ORAL DAILY ON DAY 1 AND THEN1 TABLET DAILY ON DAYS 2-5 Keflex 500MG Oral Capsule 03/29/2024 04/06/2024 ORAL THREE TIMES A DAY 1 CAPSULE 835068 RxNorm TAKE 1 CAPSULE ORAL THREE TIMES A DAY Keflex 500MG Oral Capsule 04/06/2024 Unknown ORAL THREE TIMES A DAY 1 CAPSULE 072893 RxNorm TAKE 1 CAPSULE ORAL THREE TIMES [...] Code Code System TYPE 2 DIABETES active 29181706 SNOM ED-CT HYPOTHYROIDISM active 22586496 SNOME D-CT DENTAL CARIES active 75574530 SNOMED -CT ACUTE BRONCHITIS active 72977238 SNO MED-CT SUPERFICIAL FOREIGN BODY, RIGHT FOOT, INITIAL ENCOUNTER active 369522838 SNOMED-CT ASTHMA 03/03/2022 resolved 356175668 SNOMED-CT ANXIETY 01/19/2022 resolved 40979708 SNOMED-CT HLD 09/10/2022 resolved 24062607 SNOMED-CT Allergies and Adverse Reactions Allergy Substance Reaction Severity Start Date Concern Status Code Code System SULFA (sulfonamide) Anaphylaxis (SNOMED-CT: 40105821) Active 92697944 SNOMED-CT MORPHINE Hives (SNOMED-CT: 758754894), Itching (SNOMED-CT: 920594172) Moderate Active 7052 RxNorm BEE POLLEN Anaphylaxis (SNOMED-CT: 22028486) Active 831352 RxNorm DILAUDID Hives (SNOMED-CT: 188198899), Itching (SNOMED-CT: 803184713) Moderate Active 088469 RxNorm Plan of Treatment Symptoms 08/09/2021 US PELVIC / TV 11/06/2023 CT CHEST W/O CONTRAST 03/13/2023 CT CHEST W/O CONTRAST 03/04/2023 SYMPTOMS 10/19/2022 LAB DRAW 15MIN 08/02/2022 LAB DRAW 15MIN 05/25/2022 SYMPTOMS 04/28/2022 EXPOSURE 12/07/2021 SYMPTOMS 11/22/2021 SYMPTOMS 2021 Encounters Encounter Diagnosis Start Date Code Code Sys tem Acute upper respiratory infection, unspecified 022 SNOMED-CT Personal Care Team Section Performer Name Performer Role Active Date Inactive Da te Discharge Summary Notes [facility] 05/02/2022 22:06 Discharge Date: 05/02/2022 22:05 Primary Care: CHAS Lopez Discharge Instructions Your preliminary diagnosis is: Upper respiratory infection. Instructions: Continue use your albuterol every 4-6 hours as needed. You can use Tessalon Perles as a prescription dictates every 6 hours for cough.Take Tylenol as needed for discomfort. Return for any worsening symptoms or concerns. RX Today Medication Start Date Tessalon Perles 100MG Oral Capsule, Liquid Filled 05/02/2022 predniSONE 20MG Oral Tablet 05/02/2022 Followup Plan: Office Time Primary care doctor As needed Imaging Reports: The interpretation of your imaging tests may be a preliminary reading. If there is a discrepancy on the final reading, we will try to contact you. Incidental findings: There are often mild laboratory abnormalities and mild radiographic findings that are not significant during this ER visit but often require further work-up as an outpatient to rule out potentially serious disease. Please follow- up with your primary care provider to go over the results from this visit in more detail. IF YOU GET WORSE If your condition worsens, new symptoms appear, or you do not recover as expected, contact your doctor immediately. If you cannot reach your doctor, PLEASE RETURN HERE FOR A RE-EVALUATION. We hope we have been of assistance to you and we wish you a speedy recovery. I HAVE READ AND UNDERSTAND THESE INSTRUCTIONS Patient / Responsible Individual Emergency Department Staff Time
--- OUTSIDE RECORDS SUMMARY | 2024-05-12 15:33 | XMS_ITS ---
Author Name Unknown Address [address] [place] [address] [phone] Phone Organization Unknown Address [address] [place] [address] [phone] Phone Care Team Providers Care Archives Technician Name Role Phone CHAS Lopez Attending Unavailable Results HEMOGLOBIN A1C* - Collect Da te/Time: 05/25/2022 15:59 [facility] ID: [id number] [address] [place] [address], [address] LOINC: 4548-4 Test Value Unit Reference Range Code Code System Flag Hgb A1c 8.7 % L=3.8 H=5.7 4548-4 LOINC H MEAN BLOOD GLUCOSE 204 mg/dL 78205-5 [facility] TH[facility]* - C ollect Date/Time: 05/25/2022 15:59 [facility] ID: [id number] [address] [place] [address], [address] LOINC: 3016-3 Test Value Unit Reference Range Code Code System Flag TSH. 0.947 uIU/mL L=0.360 H=3.740 3014-8 LOINC LIPID PANEL* - Collect Date/ Time: 05/25/2022 15:59 [facility] ID: [id number] [address] [place] [address], [phone] LOINC: Test Value Unit Reference Range Code Code System Flag FASTING STATUS: NON FASTING CHOLESTEROL 206 mg/dL L=0 H=200 2093-3 LOINC H TRIGLYCERIDES 227 mg/dL L=45 H=191 2571-8 LOINC H HDL 29 mg/dL L=34 H=88 2085-9 LOINC L non-HDL-C 177 mg/dL L=0 H=160 64219-3 LOINC H LDL (CALC) 132 mg/dL L=0 H=130 02529-8 LOINC H % HDL 14.1 % Chol/HDL Ratio 7.1 L=0.0 H=4.4 9830-1 LOINC H CHD Relative Risk 1.6 x Avg L=0.0 H=1.0 H LDL/HDL Ratio 4.6 L=0.0 H=3.2 67367-4 LOINC H CHD Relative Risk. 1.4 x Avg L=0.0 H=1.0 H Social History Type Status Start Date End Date Code Code Syst em Smoking History Current every day smoker 437814311 SNOMED CT Smoking History Former smoker 7437431 SNOMED CT Smoking History Current some day smoker 11/25/[id number] Sex Female Medications Medication Start Date End Date Route Frequency Dose Code Code System Medication Instructions Home Meds Tessalon Perles 100MG Oral Capsule, Liquid Filled 05/02/2022 07/08/2022 ORAL NEEDED EVERY 6 HOURS 1 CAPSULE 857885 RxNorm TAKE 1 CAPSULE ORAL NEEDED EVERY 6 HOURS predniSONE 20MG Oral Tablet 05/02/2022 07/08/2022 ORAL DAILY 2 TABLET 716248 RxNorm TAKE 2 TABLET ORAL DAILY Penicillin VK 500MG Oral Tablet 07/08/2022 07/17/2022 ORAL FOUR TIMES A DAY 1 TABLET 736443 RxNorm TAKE 1 TABLET ORAL FOUR TIMES A DAY Ondansetron 4MG Oral Tablet, Disintegrati ng 07/17/2022 10/07/2022 ORAL NEEDED EVERY 6 HOURS 1 TABLET 651375 RxNorm TAKE 1 TABLET ORAL NEEDED EVERY 6 HOURS FOR Nausea/Vom iting HYDROcodone bitartrate-a cetaminophen 5MG-325MG Oral Tablet 07/17/2022 10/07/2022 ORAL NEEDED EVERY 4 HOURS 1 TABLET 755472 RxNorm TAKE 1 TABLET ORAL NEEDED EVERY 4 HOURS FOR Pain Ibuprofen 200MG Oral Tablet 07/17/2022 09/01/2023 ORAL EVERY 6 HOURS 3 TABLET 298917 RxNorm TAKE 3 TABLET ORAL EVERY 6 HOURS FOR 24 HOURS THEN NEEDED FOR PAIN Chlorhexidin e Gluconate 0.12% Oral Liquid 07/17/2022 10/07/2022 ORAL THREE TIMES A DAY 5 mL RxNorm TAKE 5 mL ORAL SWISH AND SPIT THREE TIMES A DAY Bactrim DS 800MG-160MG Oral Tablet 09/04/2022 10/07/2022 ORAL TWICE A DAY 1 TABLET 693942 RxNorm TAKE 1 TABLET ORAL TWICE A DAY Benadryl Allergy 25MG Oral Tablet 09/11/2022 09/01/2023 ORAL EVERY 6 HOURS 2 TABLET 8681222 RxNorm TAKE 2 TABLET ORAL EVERY 6 HOURS Zofran 4MG Oral Tablet 10/07/2022 10/04/2023 ORAL NEEDED THREE TIMES A DAY 1 TABLET 480367 RxNorm TAKE 1 TABLET ORAL NEEDED THREE TIMES A DAY oxyCODONE HCl 5MG Oral Tablet 12/14/2022 09/01/2023 ORAL NEEDED EVERY 3 HOURS 5 MILLIGRAMS 8549812 RxNorm TAKE 5 MILLIGRAMS ORAL NEEDED EVERY 3 HOURS Atorvastatin Calcium 40MG Oral Tablet 12/14/2022 Unknown ORAL DAILY 40 MILLIGRAMS 126286 RxNorm TAKE 40 MILLIGRAMS ORAL DAILY Levothyroxin e 200MCG Oral Tablet 12/14/2022 09/01/2023 ORAL DAILY 200 MCG 959880 RxNorm TAKE 2 00 MCG ORAL DAILY ProAir HFA 0.09MG/1Actu ation Inhalation Suspension 12/14/2022 06/02/2023 INHALATI ON NEEDED 1 unit(s) 328655 RxNorm 1 EACH INHALATION NEEDED Trulicity 0.75MG/0.5ML Subcutaneous Solution 12/14/2022 09/01/2023 SUBCUTAN EOUS MONDAYS 1.5 MILLIGRAMS 9783553 RxNorm INJECT 1.5 MILLIGRAMS SUBCUTANEO US MONDAYS metFORMIN HCl 500MG Oral Tablet 12/14/2022 06/01/2023 ORAL TWICE A DAY 1000 MILLIGRAMS 072676 RxNorm TAKE 1000 MILLIGRAMS ORAL TWICE A DAY predniSONE 20MG Oral Tablet 03/06/2023 06/02/2023 ORAL DAILY 1 TABLET 071673 RxNorm TAKE 1 TABLET ORAL DAILY Zithromax 250MG Oral Tablet 03/06/2023 06/02/2023 ORAL DAILY 1 TABLET 856879 RxNorm TAKE 2 TABLETS ORAL DAILY ON DAY 1 AND THEN1 TABLET DAILY ON DAYS 2-5 Albuterol Sulfate 0.09MG/1Actu ation Inhalation Suspension 06/02/2023 Unknown INHALATI ON NEEDED EVERY 4 HOURS 2 PUFF 2770201 RxNorm 2 PUFF INHALATION EVERY 4 HOURS FOR 24 HOURS THEN NEEDED FOR Cough/Shor tness of breath Zithromax 250MG Oral Tablet 06/02/2023 06/10/2023 ORAL DAILY 1 TABLET 710244 RxNorm TAKE 1 TABLET ORAL DAILY predniSONE 20MG Oral Tablet 06/02/2023 06/10/2023 ORAL DAILY 3 TABLET 148510 RxNorm TAKE 3 TABLET ORAL DAILY Mucinex D 600MG-60mg Oral Tablet, Extended Release 06/02/2023 09/01/2023 ORAL TWICE A DAY 1 TABLET 9070323 RxNorm TAKE 1 TABLET ORAL TWICE A DAY FOR 3-5 DAYS Zithromax 250MG Oral Tablet 06/10/2023 09/01/2023 ORAL DAILY 1 TABLET 017307 RxNorm TAKE 2 TABLETS ORAL DAILY ON DAY 1 AND THEN1 TABLET DAILY ON DAYS 2-5 Ibuprofen 800MG Oral Tablet 08/28/2023 10/04/2023 ORAL EVERY 8 HOURS 1 TABLET 867275 RxNorm TAKE 1 TABLET ORAL EVERY 8 HOURS Penicillin VK 500MG Oral Tablet 08/28/2023 09/01/2023 ORAL THREE TIMES A DAY 1 TABLET 920581 RxNorm TAKE 1 TABLET ORAL THREE TIMES A DAY Tylenol 325MG Oral Tablet 09/01/2023 10/04/2023 ORAL NEEDED EVERY 6 HOURS 2 TABLET 993224 RxNorm TAKE 2 TABLET ORAL NEEDED EVERY 6 HOURS Anbesol Maximum Strength 20% Oromucosal Gel/Jelly 09/01/2023 10/04/2023 OROMUCOS AL THREE TIMES A DAY 1 RxNorm 1 OROMUCOSAL THREE TIMES A DAY Augmentin 875MG-125MG Oral Tablet 09/04/2023 10/04/2023 ORAL TWICE A DAY 1 TABLET 891772 RxNorm TAKE 1 TABLET ORAL TWICE A DAY Meclizine HCl 25MG Oral Tablet 10/04/2023 01/21/2024 ORAL NEEDED EVERY 8 HOURS 1 TABLET 724920 RxNorm TAKE 1 TABLET ORAL NEEDED EVERY 8 HOURS. No alcohol, recreation al drugs, driving or operating machinery while taking this. Augmentin 875MG-125MG Oral Tablet 10/26/2023 11/06/2023 ORAL TWICE A DAY 1 TABLET 282996 RxNorm TAKE 1 TABLET ORAL TWICE A DAY Augmentin 875MG-125MG Oral Tablet 11/06/2023 12/11/2023 ORAL TWICE A DAY 1 TABLET 651769 RxNorm TAKE 1 TABLET ORAL TWICE A DAY Tessalon Perles 100MG Oral Capsule, Liquid Filled 11/06/2023 12/11/2023 ORAL NEEDED EVERY 6 HOURS 1 CAPSULE 812133 RxNorm TAKE 1 CAPSULE ORAL NEEDED EVERY 6 HOURS Zithromax 250MG Oral Tablet 02/16/2024 03/29/2024 ORAL DAILY 1 TABLET 274690 RxNorm TAKE 2 TABLETS ORAL DAILY ON DAY 1 AND THEN1 TABLET DAILY ON DAYS 2-5 Keflex 500MG Oral Capsule 03/29/2024 04/06/2024 ORAL THREE TIMES A DAY 1 CAPSULE 809676 RxNorm TAKE 1 CAPSULE ORAL THREE TIMES A DAY Keflex 500MG Oral Capsule 04/06/2024 Unknown ORAL THREE TIMES A DAY 1 CAPSULE 648119 RxNorm TAKE 1 CAPSULE ORAL THREE TIMES [...] Code Code System TYPE 2 DIABETES active 35442392 SNOM ED-CT HYPOTHYROIDISM active 13893506 SNOME D-CT DENTAL CARIES active 52196639 SNOMED -CT ACUTE BRONCHITIS active 00461395 SNO MED-CT SUPERFICIAL FOREIGN BODY, RIGHT FOOT, INITIAL ENCOUNTER active 924977058 SNOMED-CT ASTHMA 03/03/2022 resolved 797358874 SNOMED-CT ANXIETY 01/19/2022 resolved 87093701 SNOMED-CT HLD 09/10/2022 resolved 20322360 SNOMED-CT Allergies and Adverse Reactions Allergy Substance Reaction Severity Start Date Concern Status Code Code System SULFA (sulfonamide) Anaphylaxis (SNOMED-CT: 07346619) Active 57821857 SNOMED-CT MORPHINE Hives (SNOMED-CT: 545275199), Itching (SNOMED-CT: 548015722) Moderate Active 7052 RxNorm BEE POLLEN Anaphylaxis (SNOMED-CT: 01053237) Active 963997 RxNorm DILAUDID Hives (SNOMED-CT: 032130270), Itching (SNOMED-CT: 861416967) Moderate Active 184943 RxNorm Plan of Treatment Symptoms 08/09/2021 US PELVIC / TV 11/06/2023 CT CHEST W/O CONTRAST 03/13/2023 CT CHEST W/O CONTRAST 03/04/2023 SYMPTOMS 10/19/2022 LAB DRAW 15MIN 08/02/2022 LAB DRAW 15MIN 05/25/2022 SYMPTOMS 04/28/2022 EXPOSURE 12/07/2021 SYMPTOMS 11/22/2021 SYMPTOMS 2021 Encounters Encounter Diagnosis Start Date Code Code Sys tem Type 2 diabetes mellitus without complication 05/25/20 741332065 SNOMED-CT Personal Care Team Section Performer Name Performer Role Active Date Inactive Da campbell
--- OUTSIDE RECORDS SUMMARY | 2024-05-12 15:34 | XMS_ITS ---
Author Name Unknown Address [address], [place] [id number] Phone Organization Unknown Address [address] [place] [phone] Phone Care Team Providers Care Laminator Printed [employer] Boards Name Role Phone ELLIE AVILA Registered Nurse Unavailab dallas Molina Attending Unavailable CHAS Lopez Primary Unavailable UNLISTED PROVIDER - REQUESTED Xhandoff Un available Social History Type Status Start Date End Date Code Code Syst em Smoking History Current every day smoker 494480894 SNOMED CT Smoking History Former smoker 2976985 SNOMED CT Smoking History Current some day smoker 11/25/[id number] Sex Female Vital Signs Vital Sign Value Unit [place] Unit Date/Time Recent/Initial? Code Code System Body Mass Index 47.72 kg/m2 07/08/2022 03:53 Initial 34738 -5 LOINC Systolic Blood Pressure 137 mm[Hg] 07/08/2022 03:53 Initial 8480- 6 LOINC Diastolic Blood Pressure 94 mm[Hg] 07/08/2022 03:53 Initial 8462- 4 LOINC Body Surface Area 2.79 m2 07/08/2022 03:53 Initial 3140- 1 LOINC Height 180.340 0 cm 71.00 in 07/08/2022 03:53 Initial 8302- 2 LOINC O2 Saturation 96 % 2021 03:53 Initial 18474 -5 LOINC Pulse 95.0 /min 07/08/2022 03:53 Initial 8867- 4 LOINC Respiration 20 /min 07/08/20 03:53 Initial 9279- 1 LOINC Temperature 35.9 [place] 96.6 F 07/08/20 03:53 Initial 8310- 5 [facility] Weight 155.20 kg 342.16 lbs 07/08/2022 03:53 Initial 70934 -7 [facility] Medications Medication Start Date End Date Route Frequency Dose Code Code System Medication Instructions Home Meds Bety Perljuan 100MG Oral Capsule, Liquid Filled 05/02/2022 07/08/2022 ORAL NEEDED EVERY 6 HOURS 1 CAPSULE 348261 RxNorm TAKE 1 CAPSULE ORAL NEEDED EVERY 6 HOURS predniSONE 20MG Oral Tablet 05/02/2022 07/08/2022 ORAL DAILY 2 TABLET 487776 RxNorm TAKE 2 TABLET ORAL DAILY Penicillin VK 500MG Oral Tablet 07/08/2022 07/17/2022 ORAL FOUR TIMES A DAY 1 TABLET 167334 RxNorm TAKE 1 TABLET ORAL FOUR TIMES A DAY Ondansetron 4MG Oral Tablet, Disintegrati ng 07/17/2022 10/07/2022 ORAL NEEDED EVERY 6 HOURS 1 TABLET 784333 RxNorm TAKE 1 TABLET ORAL NEEDED EVERY 6 HOURS FOR Nausea/Vom iting HYDROcodone bitartrate-a cetaminophen 5MG-325MG Oral Tablet 07/17/2022 10/07/2022 ORAL NEEDED EVERY 4 HOURS 1 TABLET 923948 RxNorm TAKE 1 TABLET ORAL NEEDED EVERY 4 HOURS FOR Pain Ibuprofen 200MG Oral Tablet 07/17/2022 09/01/2023 ORAL EVERY 6 HOURS 3 TABLET 229582 RxNorm TAKE 3 TABLET ORAL EVERY 6 HOURS FOR 24 HOURS THEN NEEDED FOR PAIN Chlorhexidin e Gluconate 0.12% Oral Liquid 07/17/2022 10/07/2022 ORAL THREE TIMES A DAY 5 mL RxNorm TAKE 5 mL ORAL SWISH AND SPIT THREE TIMES A DAY Bactrim DS 800MG-160MG Oral Tablet 09/04/2022 10/07/2022 ORAL TWICE A DAY 1 TABLET 192466 RxNorm TAKE 1 TABLET ORAL TWICE A DAY Benadryl Allergy 25MG Oral Tablet 09/11/2022 09/01/2023 ORAL EVERY 6 HOURS 2 TABLET 6079847 RxNorm TAKE 2 TABLET ORAL EVERY 6 HOURS Zofran 4MG Oral Tablet 10/07/2022 10/04/2023 ORAL NEEDED THREE TIMES A DAY 1 TABLET 929274 RxNorm TAKE 1 TABLET ORAL NEEDED THREE TIMES A DAY oxyCODONE HCl 5MG Oral Tablet 12/14/2022 09/01/2023 ORAL NEEDED EVERY 3 HOURS 5 MILLIGRAMS 6439403 RxNorm TAKE 5 MILLIGRAMS ORAL NEEDED EVERY 3 HOURS Atorvastatin Calcium 40MG Oral Tablet 12/14/2022 Unknown ORAL DAILY 40 MILLIGRAMS 714187 RxNorm TAKE 40 MILLIGRAMS ORAL DAILY Levothyroxin e 200MCG Oral Tablet 12/14/2022 09/01/2023 ORAL DAILY 200 MCG 041086 RxNorm TAKE 2 00 MCG ORAL DAILY ProAir HFA 0.09MG/1Actu ation Inhalation Suspension 12/14/2022 06/02/2023 INHALATI ON NEEDED 1 unit(s) 189689 RxNorm 1 EACH INHALATION NEEDED Trulicity 0.75MG/0.5ML Subcutaneous Solution 12/14/2022 09/01/2023 SUBCUTAN EOUS MONDAYS 1.5 MILLIGRAMS 2943904 RxNorm INJECT 1.5 MILLIGRAMS SUBCUTANEO US MONDAYS metFORMIN HCl 500MG Oral Tablet 12/14/2022 06/01/2023 ORAL TWICE A DAY 1000 MILLIGRAMS 329222 RxNorm TAKE 1000 MILLIGRAMS ORAL TWICE A DAY predniSONE 20MG Oral Tablet 03/06/2023 06/02/2023 ORAL DAILY 1 TABLET 781574 RxNorm TAKE 1 TABLET ORAL DAILY Zithromax 250MG Oral Tablet 03/06/2023 06/02/2023 ORAL DAILY 1 TABLET 589072 RxNorm TAKE 2 TABLETS ORAL DAILY ON DAY 1 AND THEN1 TABLET DAILY ON DAYS 2-5 Albuterol Sulfate 0.09MG/1Actu ation Inhalation Suspension 06/02/2023 Unknown INHALATI ON NEEDED EVERY 4 HOURS 2 PUFF 4943680 RxNorm 2 PUFF INHALATION EVERY 4 HOURS FOR 24 HOURS THEN NEEDED FOR Cough/Shor tness of breath Zithromax 250MG Oral Tablet 06/02/2023 06/10/2023 ORAL DAILY 1 TABLET 268351 RxNorm TAKE 1 TABLET ORAL DAILY predniSONE 20MG Oral Tablet 06/02/2023 06/10/2023 ORAL DAILY 3 TABLET 001854 RxNorm TAKE 3 TABLET ORAL DAILY Mucinex D 600MG-60mg Oral Tablet, Extended Release 06/02/2023 09/01/2023 ORAL TWICE A DAY 1 TABLET 7810105 RxNorm TAKE 1 TABLET ORAL TWICE A DAY FOR 3-5 DAYS Zithromax 250MG Oral Tablet 06/10/2023 09/01/2023 ORAL DAILY 1 TABLET 374288 RxNorm TAKE 2 TABLETS ORAL DAILY ON DAY 1 AND THEN1 TABLET DAILY ON DAYS 2-5 Ibuprofen 800MG Oral Tablet 08/28/2023 10/04/2023 ORAL EVERY 8 HOURS 1 TABLET 822438 RxNorm TAKE 1 TABLET ORAL EVERY 8 HOURS Penicillin VK 500MG Oral Tablet 08/28/2023 09/01/2023 ORAL THREE TIMES A DAY 1 TABLET 590207 RxNorm TAKE 1 TABLET ORAL THREE TIMES A DAY Tylenol 325MG Oral Tablet 09/01/2023 10/04/2023 ORAL NEEDED EVERY 6 HOURS 2 TABLET 254283 RxNorm TAKE 2 TABLET ORAL NEEDED EVERY 6 HOURS Anbesol Maximum Strength 20% Oromucosal Gel/Jelly 09/01/2023 10/04/2023 OROMUCOS AL THREE TIMES A DAY 1 RxNorm 1 OROMUCOSAL THREE TIMES A DAY Augmentin 875MG-125MG Oral Tablet 09/04/2023 10/04/2023 ORAL TWICE A DAY 1 TABLET 435848 RxNorm TAKE 1 TABLET ORAL TWICE A DAY Meclizine HCl 25MG Oral Tablet 10/04/2023 01/21/2024 ORAL NEEDED EVERY 8 HOURS 1 TABLET 806119 RxNorm TAKE 1 TABLET ORAL NEEDED EVERY 8 HOURS. No alcohol, recreation al drugs, driving or operating machinery while taking this. Augmentin 875MG-125MG Oral Tablet 10/26/2023 11/06/2023 ORAL TWICE A DAY 1 TABLET 325932 RxNorm TAKE 1 TABLET ORAL TWICE A DAY Augmentin 875MG-125MG Oral Tablet 11/06/2023 12/11/2023 ORAL TWICE A DAY 1 TABLET 087787 RxNorm TAKE 1 TABLET ORAL TWICE A DAY Tessalon Perles 100MG Oral Capsule, Liquid Filled 11/06/2023 12/11/2023 ORAL NEEDED EVERY 6 HOURS 1 CAPSULE 826368 RxNorm TAKE 1 CAPSULE ORAL NEEDED EVERY 6 HOURS Zithromax 250MG Oral Tablet 02/16/2024 03/29/2024 ORAL DAILY 1 TABLET 798643 RxNorm TAKE 2 TABLETS ORAL DAILY ON DAY 1 AND THEN1 TABLET DAILY ON DAYS 2-5 Keflex 500MG Oral Capsule 03/29/2024 04/06/2024 ORAL THREE TIMES A DAY 1 CAPSULE 811929 RxNorm TAKE 1 CAPSULE ORAL THREE TIMES A DAY Keflex 500MG Oral Capsule 04/06/2024 Unknown ORAL THREE TIMES A DAY 1 CAPSULE 247267 RxNorm TAKE 1 CAPSULE ORAL THREE TIMES [...] Name Date Status Code Code Syste m Cholecystectomy completed [id number] SNOMEDCT Problems Problem Start Date Resolved Date Status Code Code System TYPE 2 DIABETES active 14233646 SNOM ED-CT HYPOTHYROIDISM active 97574899 SNOME D-CT DENTAL CARIES active 69763034 SNOMED -CT ACUTE BRONCHITIS active 52274726 SNO MED-CT SUPERFICIAL FOREIGN BODY, RIGHT FOOT, INITIAL ENCOUNTER active 247077719 SNOMED-CT ASTHMA 03/03/2022 resolved 340001873 SNOMED-CT ANXIETY 01/19/2022 resolved 48864920 SNOMED-CT HLD 09/10/2022 resolved 98968583 SNOMED-CT Allergies and Adverse Reactions Allergy Substance Reaction Severity Start Date Concern Status Code Code System SULFA (sulfonamide) Anaphylaxis (SNOMED-CT: 64047702) Active 02733433 SNOMED-CT MORPHINE Hives (SNOMED-CT: 334170352), Itching (SNOMED-CT: 552623177) Moderate Active 7052 RxNorm BEE POLLEN Anaphylaxis (SNOMED-CT: 00535607) Active 199701 RxNorm DILAUDID Hives (SNOMED-CT: 718955724), Itching (SNOMED-CT: 719321647) Moderate Active 700052 RxNorm Plan of Treatment Symptoms 08/09/2021 US PELVIC / TV 11/06/2023 CT CHEST W/O CONTRAST 03/13/2023 CT CHEST W/O CONTRAST 03/04/2023 SYMPTOMS 10/19/2022 LAB DRAW 15MIN 08/02/2022 LAB DRAW 15MIN 05/25/2022 SYMPTOMS 04/28/2022 EXPOSURE 12/07/2021 SYMPTOMS 11/22/2021 SYMPTOMS 2021 Encounters Encounter Diagnosis Start Date Code Code Sys tem Localized swelling, mass and lump, head 07/08/2022 SNOMED-CT Personal Care Team Section Performer Name Performer Role Active Date Inactive Da te
--- OUTSIDE RECORDS SUMMARY | 2024-05-12 15:34 | XMS_ITS ---
Author Name Unknown Address [address], [place] [phone] Phone Organization Unknown Address [address] [place] [phone] Phone Care Team Providers Care Cancer Registrar Name Role Phone PHUONG Molina Attending Unavailable CHAS Lopez Primary Unavailable Social History Type Status Start Date End Date Code Code Syst em Smoking History Current every day smoker 606517679 SNOMED CT Smoking History Former smoker 2831599 SNOMED CT Smoking History Current some day smoker 11/25/[id number] Sex Female Medications Medication Start Date End Date Route Frequency Dose Code Code System Medication Instructions Home Meds Tessalon Perles 100MG Oral Capsule, Liquid Filled 05/02/2022 07/08/2022 ORAL NEEDED EVERY 6 HOURS 1 CAPSULE 223377 RxNorm TAKE 1 CAPSULE ORAL NEEDED EVERY 6 HOURS predniSONE 20MG Oral Tablet 05/02/2022 07/08/2022 ORAL DAILY 2 TABLET 262918 RxNorm TAKE 2 TABLET ORAL DAILY Penicillin VK 500MG Oral Tablet 07/08/2022 07/17/2022 ORAL FOUR TIMES A DAY 1 TABLET 524401 RxNorm TAKE 1 TABLET ORAL FOUR TIMES A DAY Ondansetron 4MG Oral Tablet, Disintegrati ng 07/17/2022 10/07/2022 ORAL NEEDED EVERY 6 HOURS 1 TABLET 306234 RxNorm TAKE 1 TABLET ORAL NEEDED EVERY 6 HOURS FOR Nausea/Vom iting HYDROcodone bitartrate-a cetaminophen 5MG-325MG Oral Tablet 07/17/2022 10/07/2022 ORAL NEEDED EVERY 4 HOURS 1 TABLET 366680 RxNorm TAKE 1 TABLET ORAL NEEDED EVERY 4 HOURS FOR Pain Ibuprofen 200MG Oral Tablet 07/17/2022 09/01/2023 ORAL EVERY 6 HOURS 3 TABLET 498855 RxNorm TAKE 3 TABLET ORAL EVERY 6 HOURS FOR 24 HOURS THEN NEEDED FOR PAIN Chlorhexidin e Gluconate 0.12% Oral Liquid 07/17/2022 10/07/2022 ORAL THREE TIMES A DAY 5 mL RxNorm TAKE 5 mL ORAL SWISH AND SPIT THREE TIMES A DAY Bactrim DS 800MG-160MG Oral Tablet 09/04/2022 10/07/2022 ORAL TWICE A DAY 1 TABLET 897856 RxNorm TAKE 1 TABLET ORAL TWICE A DAY Benadryl Allergy 25MG Oral Tablet 09/11/2022 09/01/2023 ORAL EVERY 6 HOURS 2 TABLET 3768917 RxNorm TAKE 2 TABLET ORAL EVERY 6 HOURS Zofran 4MG Oral Tablet 10/07/2022 10/04/2023 ORAL NEEDED THREE TIMES A DAY 1 TABLET 143390 RxNorm TAKE 1 TABLET ORAL NEEDED THREE TIMES A DAY oxyCODONE HCl 5MG Oral Tablet 12/14/2022 09/01/2023 ORAL NEEDED EVERY 3 HOURS 5 MILLIGRAMS 2261152 RxNorm TAKE 5 MILLIGRAMS ORAL NEEDED EVERY 3 HOURS Atorvastatin Calcium 40MG Oral Tablet 12/14/2022 Unknown ORAL DAILY 40 MILLIGRAMS 571614 RxNorm TAKE 40 MILLIGRAMS ORAL DAILY Levothyroxin e 200MCG Oral Tablet 12/14/2022 09/01/2023 ORAL DAILY 200 MCG 926974 RxNorm TAKE 2 00 MCG ORAL DAILY ProAir HFA 0.09MG/1Actu ation Inhalation Suspension 12/14/2022 06/02/2023 INHALATI ON NEEDED 1 unit(s) 832706 RxNorm 1 EACH INHALATION NEEDED Trulicity 0.75MG/0.5ML Subcutaneous Solution 12/14/2022 09/01/2023 SUBCUTAN EOUS MONDAYS 1.5 MILLIGRAMS 9550727 RxNorm INJECT 1.5 MILLIGRAMS SUBCUTANEO US MONDAYS metFORMIN HCl 500MG Oral Tablet 12/14/2022 06/01/2023 ORAL TWICE A DAY 1000 MILLIGRAMS 986596 RxNorm TAKE 1000 MILLIGRAMS ORAL TWICE A DAY predniSONE 20MG Oral Tablet 03/06/2023 06/02/2023 ORAL DAILY 1 TABLET 480803 RxNorm TAKE 1 TABLET ORAL DAILY Zithromax 250MG Oral Tablet 03/06/2023 06/02/2023 ORAL DAILY 1 TABLET 254344 RxNorm TAKE 2 TABLETS ORAL DAILY ON DAY 1 AND THEN1 TABLET DAILY ON DAYS 2-5 Albuterol Sulfate 0.09MG/1Actu ation Inhalation Suspension 06/02/2023 Unknown INHALATI ON NEEDED EVERY 4 HOURS 2 PUFF 6863659 RxNorm 2 PUFF INHALATION EVERY 4 HOURS FOR 24 HOURS THEN NEEDED FOR Cough/Shor tness of breath Zithromax 250MG Oral Tablet 06/02/2023 06/10/2023 ORAL DAILY 1 TABLET 074792 RxNorm TAKE 1 TABLET ORAL DAILY predniSONE 20MG Oral Tablet 06/02/2023 06/10/2023 ORAL DAILY 3 TABLET 195734 RxNorm TAKE 3 TABLET ORAL DAILY Mucinex D 600MG-60mg Oral Tablet, Extended Release 06/02/2023 09/01/2023 ORAL TWICE A DAY 1 TABLET 9182560 RxNorm TAKE 1 TABLET ORAL TWICE A DAY FOR 3-5 DAYS Zithromax 250MG Oral Tablet 06/10/2023 09/01/2023 ORAL DAILY 1 TABLET 394448 RxNorm TAKE 2 TABLETS ORAL DAILY ON DAY 1 AND THEN1 TABLET DAILY ON DAYS 2-5 Ibuprofen 800MG Oral Tablet 08/28/2023 10/04/2023 ORAL EVERY 8 HOURS 1 TABLET 751740 RxNorm TAKE 1 TABLET ORAL EVERY 8 HOURS Penicillin VK 500MG Oral Tablet 08/28/2023 09/01/2023 ORAL THREE TIMES A DAY 1 TABLET 343717 RxNorm TAKE 1 TABLET ORAL THREE TIMES A DAY Tylenol 325MG Oral Tablet 09/01/2023 10/04/2023 ORAL NEEDED EVERY 6 HOURS 2 TABLET 284480 RxNorm TAKE 2 TABLET ORAL NEEDED EVERY 6 HOURS Anbesol Maximum Strength 20% Oromucosal Gel/Jelly 09/01/2023 10/04/2023 OROMUCOS AL THREE TIMES A DAY 1 RxNorm 1 OROMUCOSAL THREE TIMES A DAY Augmentin 875MG-125MG Oral Tablet 09/04/2023 10/04/2023 ORAL TWICE A DAY 1 TABLET 350289 RxNorm TAKE 1 TABLET ORAL TWICE A DAY Meclizine HCl 25MG Oral Tablet 10/04/2023 01/21/2024 ORAL NEEDED EVERY 8 HOURS 1 TABLET 058519 RxNorm TAKE 1 TABLET ORAL NEEDED EVERY 8 HOURS. No alcohol, recreation al drugs, driving or operating machinery while taking this. Augmentin 875MG-125MG Oral Tablet 10/26/2023 11/06/2023 ORAL TWICE A DAY 1 TABLET 703776 RxNorm TAKE 1 TABLET ORAL TWICE A DAY Augmentin 875MG-125MG Oral Tablet 11/06/2023 12/11/2023 ORAL TWICE A DAY 1 TABLET 449726 RxNorm TAKE 1 TABLET ORAL TWICE A DAY Tessalon Perles 100MG Oral Capsule, Liquid Filled 11/06/2023 12/11/2023 ORAL NEEDED EVERY 6 HOURS 1 CAPSULE 559341 RxNorm TAKE 1 CAPSULE ORAL NEEDED EVERY 6 HOURS Zithromax 250MG Oral Tablet 02/16/2024 03/29/2024 ORAL DAILY 1 TABLET 714495 RxNorm TAKE 2 TABLETS ORAL DAILY ON DAY 1 AND THEN1 TABLET DAILY ON DAYS 2-5 Keflex 500MG Oral Capsule 03/29/2024 04/06/2024 ORAL THREE TIMES A DAY 1 CAPSULE 907342 RxNorm TAKE 1 CAPSULE ORAL THREE TIMES A DAY Keflex 500MG Oral Capsule 04/06/2024 Unknown ORAL THREE TIMES A DAY 1 CAPSULE 882005 RxNorm TAKE 1 CAPSULE ORAL THREE TIMES [...] Code Code System TYPE 2 DIABETES active 58119238 SNOM ED-CT HYPOTHYROIDISM active 29486302 SNOME D-CT DENTAL CARIES active 87222246 SNOMED -CT ACUTE BRONCHITIS active 04884822 SNO MED-CT SUPERFICIAL FOREIGN BODY, RIGHT FOOT, INITIAL ENCOUNTER active 763572063 SNOMED-CT ASTHMA 03/03/2022 resolved 308607621 SNOMED-CT ANXIETY 01/19/2022 resolved 92859218 SNOMED-CT HLD 09/10/2022 resolved 81444437 SNOMED-CT Allergies and Adverse Reactions Allergy Substance Reaction Severity Start Date Concern Status Code Code System SULFA (sulfonamide) Anaphylaxis (SNOMED-CT: 63121728) Active 11176044 SNOMED-CT MORPHINE Hives (SNOMED-CT: 186984954), Itching (SNOMED-CT: 731007424) Moderate Active 7052 RxNorm BEE POLLEN Anaphylaxis (SNOMED-CT: 25757162) Active 233028 RxNorm DILAUDID Hives (SNOMED-CT: 696677046), Itching (SNOMED-CT: 131085689) Moderate Active 462067 RxNorm Plan of Treatment Symptoms 08/09/2021 US PELVIC / TV 11/06/2023 CT CHEST W/O CONTRAST 03/13/2023 CT CHEST W/O CONTRAST 03/04/2023 SYMPTOMS 10/19/2022 LAB DRAW 15MIN 08/02/2022 LAB DRAW 15MIN 05/25/2022 SYMPTOMS 04/28/2022 EXPOSURE 12/07/2021 SYMPTOMS 11/22/2021 SYMPTOMS 2021 Encounters Encounter Diagnosis Start Date Code Code Sys tem Localized swelling, mass and lump, trunk 06/06/2022 SNOMED-CT Personal Care Team Section Performer Name Performer Role Active Date Inactive Da te
--- OUTSIDE RECORDS SUMMARY | 2024-05-12 15:34 | XMS_ITS ---
Author Name Unknown Address [address] [place] [address] [phone] Phone Organization Unknown Address [address] [place] [address] [phone] Phone Care Team Providers Care Tie Maker Name Role Phone ELIUD SAHA Registered Nurse Unavailable LUIS RED Registered Nurse Unavailable PUNEET Martin Attending Unavailable CHAS Lopez Primary Unavailable Results LIPASE* - Collect Date/Time: 06/18/2022 21:40 [facility] ID: [id number] [address] [place] [address], [phone] LOINC: 3040-3 Test Value Unit Reference Range Code Code System Flag LIPASE 79 U/L L=73 H=393 C REACTIVE PROTEIN HIGH SENS ITIVITY* - Collect Date/Time: 06/18/2022 21:40 [facility] ID: [id number] [address] [place] [address], 5[address] LOINC: 10579-2 Test Value Unit Reference Range Code Code System Flag CRP-HIGH SENS. 43.74 mg/L L=0.00 H=3.00 37702-2 LOINC H CRP-HIGH SENS 4.37 mg/dL L=0.00 H=0.30 57841-9 LOINC H COMPREHENSIVE METABOLIC PANE L (CMP) - Collect Date/Time: 06/18/2022 21:40 [facility] ID: [id number] [address] [place] [address], [address] LOINC: 66665-0 Test Value Unit Reference Range Code Code System Flag GLUCOSE 137 mg/dL L=70 H=116 2345-7 LOINC H BUN 14 mg/dL L=6 H=25 3094-0 LOINC CREATININE 0.94 mg/dL L=0.51 H=0.95 2160-0 LOINC SODIUM SERUM 138 mmol/L L=136 H=145 2951-2 LOINC POTASSIUM SERUM 3.5 mmol/L L=3.4 H=5.2 2823-3 LOINC CHLORIDE SERUM 100 mmol/L L=96 H=110 2075-0 LOINC CARBON DIOXIDE (CO2) 30 mmol/L L=22 H=34 2028-9 LOINC ANION GAP 8.0 mmol/L 08844-3 LOINC CALCIUM SERUM 9.2 mg/dL L=8.2 H=10.2 27179-6 LOINC BILIRUBIN TOTAL 0.4 mg/dL L=0.0 H=1.3 1975-2 LOINC ALK. PHOS. 78 U/L L=46 H=116 6768-6 LOINC SGOT (AST) 14 U/L L=15 H=37 1920-8 LOINC L SGPT (ALT) 20 U/L L=12 H=78 1742-6 LOINC TOTAL PROTEIN 7.8 gm/dL L=6.0 H=8.0 2885-2 LOINC ALBUMIN 3.3 gm/dL L=3.4 H=5.0 1751-7 LOINC L AGE 41 years eGFR (non-Afr.Amer.) 66 mL/min 70809-9 LOINC eGFR (Afr-Omani) 80 mL/min 57665-7 LOINC CBC W/ DIFFERENTIAL* - Colle ct Date/Time: 06/18/2022 21:40 [facility] ID: [id number] [address] [place], [place], 5[address] LOINC: 68973-7 Test Value Unit Reference Range Code Code System Flag WBC 14.98 th/cmm L=5.00 H=10.00 6690-2 LOINC H NEUT % 65.0 % L=40.0 H=80.0 LYMPH % 28.8 % L=10.0 H=50.0 MONO % 4.0 % L=2.0 H=12.0 04515-8 LOINC EOS % 1.1 % L=0.0 H=8.0 BASO % 0.4 % L=0.0 H=3.0 IG % 0.7 % L=0.0 H=1.1 2514-8 LOINC NRBC % 0.0 % L=0.0 H=0.0 62058-3 LOINC NEUT abs count 9.7 th/cmm L=1.6 H=8.4 751-8 LOINC H LYMPH abs count 4.3 th/cmm L=1.5 H=4.0 731-0 LOINC H MONO abs count 0.6 th/cmm L=0.2 H=1.0 742-7 LOINC EOS abs count 0.2 th/cmm L=0.0 H=0.5 711-2 LOINC BASO abs count 0.1 th/cmm L=0.0 H=0.2 704-7 LOINC IG abs count 0.1 th/cmm L=0.0 H=0.1 81184-4 LOINC NRBC abs count 0.0 mil/cmm L=0.0 H=0.0 14136-5 LOINC RBC 4.63 mil/cmm L=3.90 H=5.40 789-8 LOINC HEMOGLOBIN 13.2 gm/dL L=12.0 H=16.0 718-7 LOINC HEMATOCRIT 40 % L=37 H=47 4544-3 LOINC MCV 87 fL L=82 H=92 787-2 LOINC MCH 28.5 pg L=27.0 H=31.0 785-6 LOINC MCHC 32.9 % L=32.0 H=36.0 786-4 LOINC RDW-SD 41.0 fL L=39.0 H=49.0 788-0 LOINC PLATELET COUNT 328 th/cmm L=150 H=450 777-3 LOINC Social History Type Status Start Date End Date Code Code Syst em Smoking History Current every day smoker 247583000 SNOMED CT Smoking History Former smoker 7871847 SNOMED CT Smoking History Current some day smoker 11/25/[id number] Sex Female Vital Signs Vital Sign Value Unit [place] Value [place] [facility] Date/Time Recent/Initial? Code Code System Body Mass Index 48.26 kg/m2 06/18/2022 21:23 Initial 83333 -5 [facility] Systolic Blood Pressure 121 mm[Hg] 06/18/2022 23:29 Most Recent 8480- 6 LOINC Diastolic Blood Pressure 50 mm[Hg] 06/18/2022 23:29 Most Recent 8462- 4 [facility] Systolic Blood Pressure 123 mm[Hg] 06/18/2022 21:23 Initial 8480- 6 [facility] Diastolic Blood Pressure 90 mm[Hg] 06/18/2022 21:23 Initial 8462- 4 [facility] Body Surface Area 2.80 m2 06/18/2022 21:23 Initial 3140- 1 [facility] Height 180.340 0 cm 71.00 in 06/18/2022 21:23 Initial 8302- 2 [facility] O2 Saturation 96 % 2021 23:29 Most Recent 78192 -5 [facility] O2 Saturation 100 % 2021 21:23 Initial 23017 -5 [facility] Pulse 78.0 /min 06/18/2022 23:29 Most Recent 8867- 4 [facility] Pulse 98.0 /min 06/18/2022 21:23 Initial 8867- 4 [facility] Respiration 16 /min 06/18/20 22 23:29 Most Recent 9279- 1 [facility] Respiration 11 /min 06/18/20 22 21:23 Initial 9279- 1 [facility] Temperature 36.6 Teodora 97.9 F 06/18/20 22 21:23 Initial 8310- 5 [facility] Weight 156.94 kg 346.00 lbs 06/18/2022 21:23 Initial 90966 -7 [facility] Medications Medication Start Date End Date Route Frequency Dose Code Code System Medication Instructions Home Meds Tessalon Perles 100MG Oral Capsule, Liquid Filled 05/02/2022 07/08/2022 ORAL NEEDED EVERY 6 HOURS 1 CAPSULE 372957 RxNorm TAKE 1 CAPSULE ORAL NEEDED EVERY 6 HOURS predniSONE 20MG Oral Tablet 05/02/2022 07/08/2022 ORAL DAILY 2 TABLET 206400 RxNorm TAKE 2 TABLET ORAL DAILY Penicillin VK 500MG Oral Tablet 07/08/2022 07/17/2022 ORAL FOUR TIMES A DAY 1 TABLET 021549 RxNorm TAKE 1 TABLET ORAL FOUR TIMES A DAY Ondansetron 4MG Oral Tablet, Disintegrati ng 07/17/2022 10/07/2022 ORAL NEEDED EVERY 6 HOURS 1 TABLET 697142 RxNorm TAKE 1 TABLET ORAL NEEDED EVERY 6 HOURS FOR Nausea/Vom iting HYDROcodone bitartrate-a cetaminophen 5MG-325MG Oral Tablet 07/17/2022 10/07/2022 ORAL NEEDED EVERY 4 HOURS 1 TABLET 435055 RxNorm TAKE 1 TABLET ORAL NEEDED EVERY 4 HOURS FOR Pain Ibuprofen 200MG Oral Tablet 07/17/2022 09/01/2023 ORAL EVERY 6 HOURS 3 TABLET 297611 RxNorm TAKE 3 TABLET ORAL EVERY 6 HOURS FOR 24 HOURS THEN NEEDED FOR PAIN Chlorhexidin e Gluconate 0.12% Oral Liquid 07/17/2022 10/07/2022 ORAL THREE TIMES A DAY 5 mL RxNorm TAKE 5 mL ORAL SWISH AND SPIT THREE TIMES A DAY Bactrim DS 800MG-160MG Oral Tablet 09/04/2022 10/07/2022 ORAL TWICE A DAY 1 TABLET 460074 RxNorm TAKE 1 TABLET ORAL TWICE A DAY Benadryl Allergy 25MG Oral Tablet 09/11/2022 09/01/2023 ORAL EVERY 6 HOURS 2 TABLET 4771908 RxNorm TAKE 2 TABLET ORAL EVERY 6 HOURS Zofran 4MG Oral Tablet 10/07/2022 10/04/2023 ORAL NEEDED THREE TIMES A DAY 1 TABLET 258954 RxNorm TAKE 1 TABLET ORAL NEEDED THREE TIMES A DAY oxyCODONE HCl 5MG Oral Tablet 12/14/2022 09/01/2023 ORAL NEEDED EVERY 3 HOURS 5 MILLIGRAMS 3846676 RxNorm TAKE 5 MILLIGRAMS ORAL NEEDED EVERY 3 HOURS Atorvastatin Calcium 40MG Oral Tablet 12/14/2022 Unknown ORAL DAILY 40 MILLIGRAMS 088216 RxNorm TAKE 40 MILLIGRAMS ORAL DAILY Levothyroxin e 200MCG Oral Tablet 12/14/2022 09/01/2023 ORAL DAILY 200 MCG 610516 RxNorm TAKE 2 00 MCG ORAL DAILY ProAir HFA 0.09MG/1Actu ation Inhalation Suspension 12/14/2022 06/02/2023 INHALATI ON NEEDED 1 unit(s) 144890 RxNorm 1 EACH INHALATION NEEDED Trulicity 0.75MG/0.5ML Subcutaneous Solution 12/14/2022 09/01/2023 SUBCUTAN EOUS MONDAYS 1.5 MILLIGRAMS 7363513 RxNorm INJECT 1.5 MILLIGRAMS SUBCUTANEO US MONDAYS metFORMIN HCl 500MG Oral Tablet 12/14/2022 06/01/2023 ORAL TWICE A DAY 1000 MILLIGRAMS 062683 RxNorm TAKE 1000 MILLIGRAMS ORAL TWICE A DAY predniSONE 20MG Oral Tablet 03/06/2023 06/02/2023 ORAL DAILY 1 TABLET 538000 RxNorm TAKE 1 TABLET ORAL DAILY Zithromax 250MG Oral Tablet 03/06/2023 06/02/2023 ORAL DAILY 1 TABLET 335136 RxNorm TAKE 2 TABLETS ORAL DAILY ON DAY 1 AND THEN1 TABLET DAILY ON DAYS 2-5 Albuterol Sulfate 0.09MG/1Actu ation Inhalation Suspension 06/02/2023 Unknown INHALATI ON NEEDED EVERY 4 HOURS 2 PUFF 2052702 RxNorm 2 PUFF INHALATION EVERY 4 HOURS FOR 24 HOURS THEN NEEDED FOR Cough/Shor tness of breath Zithromax 250MG Oral Tablet 06/02/2023 06/10/2023 ORAL DAILY 1 TABLET 066850 RxNorm TAKE 1 TABLET ORAL DAILY predniSONE 20MG Oral Tablet 06/02/2023 06/10/2023 ORAL DAILY 3 TABLET 301676 RxNorm TAKE 3 TABLET ORAL DAILY Mucinex D 600MG-60mg Oral Tablet, Extended Release 06/02/2023 09/01/2023 ORAL TWICE A DAY 1 TABLET 0268559 RxNorm TAKE 1 TABLET ORAL TWICE A DAY FOR 3-5 DAYS Zithromax 250MG Oral Tablet 06/10/2023 09/01/2023 ORAL DAILY 1 TABLET 059637 RxNorm TAKE 2 TABLETS ORAL DAILY ON DAY 1 AND THEN1 TABLET DAILY ON DAYS 2-5 Ibuprofen 800MG Oral Tablet 08/28/2023 10/04/2023 ORAL EVERY 8 HOURS 1 TABLET 921039 RxNorm TAKE 1 TABLET ORAL EVERY 8 HOURS Penicillin VK 500MG Oral Tablet 08/28/2023 09/01/2023 ORAL THREE TIMES A DAY 1 TABLET 588200 RxNorm TAKE 1 TABLET ORAL THREE TIMES A DAY Tylenol 325MG Oral Tablet 09/01/2023 10/04/2023 ORAL NEEDED EVERY 6 HOURS 2 TABLET 236484 RxNorm TAKE 2 TABLET ORAL NEEDED EVERY 6 HOURS Anbesol Maximum Strength 20% Oromucosal Gel/Jelly 09/01/2023 10/04/2023 OROMUCOS AL THREE TIMES A DAY 1 RxNorm 1 OROMUCOSAL THREE TIMES A DAY Augmentin 875MG-125MG Oral Tablet 09/04/2023 10/04/2023 ORAL TWICE A DAY 1 TABLET 345283 RxNorm TAKE 1 TABLET ORAL TWICE A DAY Meclizine HCl 25MG Oral Tablet 10/04/2023 01/21/2024 ORAL NEEDED EVERY 8 HOURS 1 TABLET 604994 RxNorm TAKE 1 TABLET ORAL NEEDED EVERY 8 HOURS. No alcohol, recreation al drugs, driving or operating machinery while taking this. Augmentin 875MG-125MG Oral Tablet 10/26/2023 11/06/2023 ORAL TWICE A DAY 1 TABLET 907072 RxNorm TAKE 1 TABLET ORAL TWICE A DAY Augmentin 875MG-125MG Oral Tablet 11/06/2023 12/11/2023 ORAL TWICE A DAY 1 TABLET 759070 RxNorm TAKE 1 TABLET ORAL TWICE A DAY Tessalon Perles 100MG Oral Capsule, Liquid Filled 11/06/2023 12/11/2023 ORAL NEEDED EVERY 6 HOURS 1 CAPSULE 652818 RxNorm TAKE 1 CAPSULE ORAL NEEDED EVERY 6 HOURS Zithromax 250MG Oral Tablet 02/16/2024 03/29/2024 ORAL DAILY 1 TABLET 052284 RxNorm TAKE 2 TABLETS ORAL DAILY ON DAY 1 AND THEN1 TABLET DAILY ON DAYS 2-5 Keflex 500MG Oral Capsule 03/29/2024 04/06/2024 ORAL THREE TIMES A DAY 1 CAPSULE 312382 RxNorm TAKE 1 CAPSULE ORAL THREE TIMES A DAY Keflex 500MG Oral Capsule 04/06/2024 Unknown ORAL THREE TIMES A DAY 1 CAPSULE 316760 RxNorm TAKE 1 CAPSULE ORAL THREE TIMES [...] Code Code System TYPE 2 DIABETES active 16014600 SNOM ED-CT HYPOTHYROIDISM active 18312301 SNOME D-CT DENTAL CARIES active 92291763 SNOMED -CT ACUTE BRONCHITIS active 18992032 SNO MED-CT SUPERFICIAL FOREIGN BODY, RIGHT FOOT, INITIAL ENCOUNTER active 341539810 SNOMED-CT ASTHMA 03/03/2022 resolved 793219281 SNOMED-CT ANXIETY 01/19/2022 resolved 02233591 SNOMED-CT HLD 09/10/2022 resolved 96665134 SNOMED-CT Allergies and Adverse Reactions Allergy Substance Reaction Severity Start Date Concern Status Code Code System SULFA (sulfonamide) Anaphylaxis (SNOMED-CT: 90299934) Active 51983726 SNOMED-CT MORPHINE Hives (SNOMED-CT: 768323058), Itching (SNOMED-CT: 976236037) Moderate Active 7052 RxNorm BEE POLLEN Anaphylaxis (SNOMED-CT: 18367611) Active 710099 RxNorm DILAUDID Hives (SNOMED-CT: 033034206), Itching (SNOMED-CT: 002559896) Moderate Active 682154 RxNorm Plan of Treatment Symptoms 08/09/2021 US PELVIC / TV 11/06/2023 CT CHEST W/O CONTRAST 03/13/2023 CT CHEST W/O CONTRAST 03/04/2023 SYMPTOMS 10/19/2022 LAB DRAW 15MIN 08/02/2022 LAB DRAW 15MIN 05/25/2022 SYMPTOMS 04/28/2022 EXPOSURE 12/07/2021 SYMPTOMS 11/22/2021 SYMPTOMS 2021 Encounters Encounter Diagnosis Start Date Code Code Sys tem Epigastric pain 06/18/2022 24299744 SNOMED-CT Personal Care Team Section Performer Name Performer Role Active Date Inactive Da campbell
--- OUTSIDE RECORDS SUMMARY | 2024-05-12 15:35 | XMS_ITS ---
Author Name Unknown Address [address], [place] [phone] Phone Organization Unknown Address [address] [place] [address] [phone] Phone Care Team Providers Care Lamp Wirer Name Role Phone ELIUD SAHA Registered Nurse Unavailable PUNEET Martin Attending Unavailable CHAS Lopez Primary Unavailable UNLISTED PROVIDER - REQUESTED Xhandoff Un available Social History Type Status Start Date End Date Code Code Syst em Smoking History Current every day smoker 632613396 SNOMED CT Smoking History Former smoker 7808998 SNOMED CT Smoking History Current some day smoker 11/25/[id number] Sex Female Vital Signs Vital Sign Value Unit [place] [facility] [place] [facility] Date/Time Recent/Initial? Code Code System Body Mass Index 47.42 kg/m2 09/10/2022 22:33 Initial 68578 -5 [facility] Systolic Blood Pressure 123 mm[Hg] 09/11/2022 00:45 Most Recent 8480- 6 [facility] Diastolic Blood Pressure 68 mm[Hg] 09/11/2022 00:45 Most Recent 8462- 4 [facility] Systolic Blood Pressure 136 mm[Hg] 09/10/2022 22:33 Initial 8480- 6 [facility] Diastolic Blood Pressure 87 mm[Hg] 09/10/2022 22:33 Initial 8462- 4 LOINC Body Surface Area 2.78 m2 09/10/2022 22:33 Initial 3140- 1 [facility] Height 180.340 0 cm 71.00 in 09/10/2022 22:33 Initial 8302- 2 LOINC O2 Saturation 96 % 2021 00:45 Most Recent 50412 -5 LOINC O2 Saturation 99 % 2021 22:33 Initial 16631 -5 LOINC Pulse 105.0 /min 09/11/2022 00:45 Most Recent 8867- 4 LOINC Pulse 136.0 /min 09/10/2022 22:33 Initial 8867- 4 LOINC Respiration 21 /min 09/11/20 00:15 Most Recent 9279- 1 LOINC Respiration 26 /min 09/10/20 22:33 Initial 9279- 1 LOINC Weight 154.22 kg 340.00 lbs 09/10/2022 22:33 Initial 20690 -7 [facility] Medications Medication Start Date End Date Route Frequency Dose Code Code System Medication Instructions Home Meds Ondansetron 4MG Oral Tablet, Disintegrating 07/17/2022 10/07/2022 ORAL NEEDED EVERY 6 HOURS 1 TABLET 326747 RxNorm TAKE 1 TABLET ORAL NEEDED EVERY 6 HOURS FOR Nausea/Vomiting HYDROcodone bitartrate-acet aminophen 5MG-325MG Oral Tablet 07/17/2022 10/07/2022 ORAL NEEDED EVERY 4 HOURS 1 TABLET 219632 RxNorm TAKE 1 TABLET ORAL NEEDED EVERY 4 HOURS FOR Pain Ibuprofen 200MG Oral Tablet 07/17/2022 09/01/2023 ORAL EVERY 6 HOURS 3 TABLET 573067 RxNorm TAKE 3 TABLET ORAL EVERY 6 HOURS FOR 24 HOURS THEN NEEDED FOR PAIN Chlorhexidine Gluconate 0.12% Oral Liquid 07/17/2022 10/07/2022 ORAL THREE TIMES A DAY 5 mL RxNorm TAKE 5 mL ORAL SWISH AND SPIT THREE TIMES A DAY Bactrim DS 800MG-160MG Oral Tablet 09/04/2022 10/07/2022 ORAL TWICE A DAY 1 TABLET 375206 RxNorm TAKE 1 TABLET ORAL TWICE A DAY Benadryl Allergy 25MG Oral Tablet 09/11/2022 09/01/2023 ORAL EVERY 6 HOURS 2 TABLET 4792575 RxNorm TAKE 2 TABLET ORAL EVERY 6 HOURS Zofran 4MG Oral Tablet 10/07/2022 10/04/2023 ORAL NEEDED THREE TIMES A DAY 1 TABLET 827255 RxNorm TAKE 1 TABLET ORAL NEEDED THREE TIMES A DAY oxyCODONE HCl 5MG Oral Tablet 12/14/2022 09/01/2023 ORAL NEEDED EVERY 3 HOURS 5 MILLIGR AMS 1107520 RxNorm TAKE 5 MILLIGRAMS ORAL NEEDED EVERY 3 HOURS Atorvastatin Calcium 40MG Oral Tablet 12/14/2022 Unknown ORAL DAILY 40 MILLIGR AMS 036173 RxNorm TAKE 40 MILLIGRAMS ORAL DAILY Levothyroxine 200MCG Oral Tablet 12/14/2022 09/01/2023 ORAL DAILY 200 MCG 126112 RxNorm TAKE 200 M CG ORAL DAILY ProAir HFA 0.09MG/1Actuati on Inhalation Suspension 12/14/2022 06/02/2023 INHAL ATION NEEDED 1 unit(s) 755274 RxNorm 1 EACH INHALATION NEEDED Trulicity 0.75MG/0.5ML Subcutaneous Solution 12/14/2022 09/01/2023 SUBCU TANEO US MONDAYS 1.5 MILLIGR AMS 3577457 RxNorm INJECT 1.5 MILLIGRAMS SUBCUTANEOUS MONDAYS metFORMIN HCl 500MG Oral Tablet 12/14/2022 06/01/2023 ORAL TWICE A DAY 1000 MILLIGR AMS 967923 RxNorm TAKE 1000 MILLIGRAMS ORAL TWICE A DAY predniSONE 20MG Oral Tablet 03/06/2023 06/02/2023 ORAL DAILY 1 TABLET 334205 RxNorm TAKE 1 TABLET ORAL DAILY Zithromax 250MG Oral Tablet 03/06/2023 06/02/2023 ORAL DAILY 1 TABLET 675223 RxNorm TAKE 2 TABLETS ORAL DAILY ON DAY 1 AND THEN1 TABLET DAILY ON DAYS 2-5 Albuterol Sulfate 0.09MG/1Actuati on Inhalation Suspension 06/02/2023 Unknown INHAL ATION NEEDED EVERY 4 HOURS 2 PUFF 8591365 RxNorm 2 PUFF INHALATION EVERY 4 HOURS FOR 24 HOURS THEN NEEDED FOR Cough/Shortness of breath Zithromax 250MG Oral Tablet 06/02/2023 06/10/2023 ORAL DAILY 1 TABLET 580652 RxNorm TAKE 1 TABLET ORAL DAILY predniSONE 20MG Oral Tablet 06/02/2023 06/10/2023 ORAL DAILY 3 TABLET 357349 RxNorm TAKE 3 TABLET ORAL DAILY Mucinex D 600MG-60mg Oral Tablet, Extended Release 06/02/2023 09/01/2023 ORAL TWICE A DAY 1 TABLET 1532403 RxNorm TAKE 1 TABLET ORAL TWICE A DAY FOR 3-5 DAYS Zithromax 250MG Oral Tablet 06/10/2023 09/01/2023 ORAL DAILY 1 TABLET 348427 RxNorm TAKE 2 TABLETS ORAL DAILY ON DAY 1 AND THEN1 TABLET DAILY ON DAYS 2-5 Ibuprofen 800MG Oral Tablet 08/28/2023 10/04/2023 ORAL EVERY 8 HOURS 1 TABLET 918615 RxNorm TAKE 1 TABLET ORAL EVERY 8 HOURS Penicillin VK 500MG Oral Tablet 08/28/2023 09/01/2023 ORAL THREE TIMES A DAY 1 TABLET 175146 RxNorm TAKE 1 TABLET ORAL THREE TIMES A DAY Tylenol 325MG Oral Tablet 09/01/2023 10/04/2023 ORAL NEEDED EVERY 6 HOURS 2 TABLET 779065 RxNorm TAKE 2 TABLET ORAL NEEDED EVERY 6 HOURS Anbesol Maximum Strength 20% Oromucosal Gel/Jelly 09/01/2023 10/04/2023 OROMU COSAL THREE TIMES A DAY 1 RxNorm 1 OROMUCOSAL THREE TIMES A DAY Augmentin 875MG-125MG Oral Tablet 09/04/2023 10/04/2023 ORAL TWICE A DAY 1 TABLET 220705 RxNorm TAKE 1 TABLET ORAL TWICE A DAY Meclizine HCl 25MG Oral Tablet 10/04/2023 01/21/2024 ORAL NEEDED EVERY 8 HOURS 1 TABLET 819546 RxNorm TAKE 1 TABLET ORAL NEEDED EVERY 8 HOURS. No alcohol, recreational drugs, driving or operating machinery while taking this. Augmentin 875MG-125MG Oral Tablet 10/26/2023 11/06/2023 ORAL TWICE A DAY 1 TABLET 081493 RxNorm TAKE 1 TABLET ORAL TWICE A DAY Augmentin 875MG-125MG Oral Tablet 11/06/2023 12/11/2023 ORAL TWICE A DAY 1 TABLET 421941 RxNorm TAKE 1 TABLET ORAL TWICE A DAY Tessalon Perles 100MG Oral Capsule, Liquid Filled 11/06/2023 12/11/2023 ORAL NEEDED EVERY 6 HOURS 1 CAPSULE 174583 RxNorm TAKE 1 CAPSULE ORAL NEEDED EVERY 6 HOURS Zithromax 250MG Oral Tablet 02/16/2024 03/29/2024 ORAL DAILY 1 TABLET 727872 RxNorm TAKE 2 TABLETS ORAL DAILY ON DAY 1 AND THEN1 TABLET DAILY ON DAYS 2-5 Keflex 500MG Oral Capsule 03/29/2024 04/06/2024 ORAL THREE TIMES A DAY 1 CAPSULE 103107 RxNorm TAKE 1 CAPSULE ORAL THREE TIMES A DAY Keflex 500MG Oral Capsule 04/06/2024 Unknown ORAL THREE TIMES A DAY 1 CAPSULE 329825 RxNorm TAKE 1 CAPSULE ORAL THREE TIMES [...] Code Code System TYPE 2 DIABETES active 48067231 SNOM ED-CT HYPOTHYROIDISM active 20721901 SNOME D-CT DENTAL CARIES active 94948492 SNOMED -CT ACUTE BRONCHITIS active 49535604 SNO MED-CT SUPERFICIAL FOREIGN BODY, RIGHT FOOT, INITIAL ENCOUNTER active 480532320 SNOMED-CT ASTHMA 03/03/2022 resolved 199454558 SNOMED-CT ANXIETY 01/19/2022 resolved 56368117 SNOMED-CT HLD 09/10/2022 resolved 91731449 SNOMED-CT Allergies and Adverse Reactions Allergy Substance Reaction Severity Start Date Concern Status Code Code System SULFA (sulfonamide) Anaphylaxis (SNOMED-CT: 49085510) Active 86530825 SNOMED-CT MORPHINE Hives (SNOMED-CT: 660327958), Itching (SNOMED-CT: 905416874) Moderate Active 7052 RxNorm BEE POLLEN Anaphylaxis (SNOMED-CT: 58761026) Active 055889 RxNorm DILAUDID Hives (SNOMED-CT: 410237494), Itching (SNOMED-CT: 116638305) Moderate Active 956752 RxNorm Plan of Treatment Symptoms 08/09/2021 US PELVIC / TV 11/06/2023 CT CHEST W/O CONTRAST 03/13/2023 CT CHEST W/O CONTRAST 03/04/2023 SYMPTOMS 10/19/2022 LAB DRAW 15MIN 08/02/2022 LAB DRAW 15MIN 05/25/2022 SYMPTOMS 04/28/2022 EXPOSURE 12/07/2021 SYMPTOMS 11/22/2021 SYMPTOMS 2021 Encounters Encounter Diagnosis Start Date Code Code Sys tem Anaphylactic shock, unspecified, initial encounter SNOMED-CT Personal Care Team Section Performer Name Performer Role Active Date Inactive Da te
--- OUTSIDE RECORDS SUMMARY | 2024-05-12 15:35 | XMS_ITS ---
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 Code Code System Body Mass Index 41.84 kg/m2 09/04/2022 21:29 Initial 38065 -5 LOINC Systolic Blood Pressure 127 mm[Hg] 09/04/2022 21:29 Initial 8480- 6 LOINC Diastolic Blood Pressure 99 mm[Hg] 09/04/2022 21:29 Initial 8462- 4 LOINC Body Surface Area 2.61 m2 09/04/2022 21:29 Initial 3140- 1 LOINC Height 180.340 0 cm 71.00 in 09/04/2022 21:29 Initial 8302- 2 LOINC O2 Saturation 93 % 2021 21:29 Initial 39511 -5 LOINC Pulse 86.0 /min 09/04/2022 21:29 Initial 8867- 4 LOINC Respiration 18 /min 09/04/20 21:29 Initial 9279- 1 LOINC Temperature 36.8 Teodora 98.2 F 09/04/20 21:29 Initial 8310- 5 [facility] Weight 136.08 kg 300.00 lbs 09/04/2022 21:29 Initial 35713 -7 [facility] Medications Medication Start Date End Date Route Frequency Dose Code Code System Medication Instructions Home Meds Ondansetron 4MG Oral Tablet, Disintegrating 07/17/2022 10/07/2022 ORAL NEEDED EVERY 6 HOURS 1 TABLET 129966 RxNorm TAKE 1 TABLET ORAL NEEDED EVERY 6 HOURS FOR Nausea/Vomiting HYDROcodone bitartrate-acet aminophen 5MG-325MG Oral Tablet 07/17/2022 10/07/2022 ORAL NEEDED EVERY 4 HOURS 1 TABLET 382799 RxNorm TAKE 1 TABLET ORAL NEEDED EVERY 4 HOURS FOR Pain Ibuprofen 200MG Oral Tablet 07/17/2022 09/01/2023 ORAL EVERY 6 HOURS 3 TABLET 627289 RxNorm TAKE 3 TABLET ORAL EVERY 6 HOURS FOR 24 HOURS THEN NEEDED FOR PAIN Chlorhexidine Gluconate 0.12% Oral Liquid 07/17/2022 10/07/2022 ORAL THREE TIMES A DAY 5 mL RxNorm TAKE 5 mL ORAL SWISH AND SPIT THREE TIMES A DAY Bactrim DS 800MG-160MG Oral Tablet 09/04/2022 10/07/2022 ORAL TWICE A DAY 1 TABLET 380882 RxNorm TAKE 1 TABLET ORAL TWICE A DAY Benadryl Allergy 25MG Oral Tablet 09/11/2022 09/01/2023 ORAL EVERY 6 HOURS 2 TABLET 6881538 RxNorm TAKE 2 TABLET ORAL EVERY 6 HOURS Zofran 4MG Oral Tablet 10/07/2022 10/04/2023 ORAL NEEDED THREE TIMES A DAY 1 TABLET 842224 RxNorm TAKE 1 TABLET ORAL NEEDED THREE TIMES A DAY oxyCODONE HCl 5MG Oral Tablet 12/14/2022 09/01/2023 ORAL NEEDED EVERY 3 HOURS 5 MILLIGR AMS 7369577 RxNorm TAKE 5 MILLIGRAMS ORAL NEEDED EVERY 3 HOURS Atorvastatin Calcium 40MG Oral Tablet 12/14/2022 Unknown ORAL DAILY 40 MILLIGR AMS 483714 RxNorm TAKE 40 MILLIGRAMS ORAL DAILY Levothyroxine 200MCG Oral Tablet 12/14/2022 09/01/2023 ORAL DAILY 200 MCG 872773 RxNorm TAKE 200 M CG ORAL DAILY ProAir HFA 0.09MG/1Actuati on Inhalation Suspension 12/14/2022 06/02/2023 INHAL ATION NEEDED 1 unit(s) 552593 RxNorm 1 EACH INHALATION NEEDED Trulicity 0.75MG/0.5ML Subcutaneous Solution 12/14/2022 09/01/2023 SUBCU TANEO US MONDAYS 1.5 MILLIGR AMS 1931555 RxNorm INJECT 1.5 MILLIGRAMS SUBCUTANEOUS MONDAYS metFORMIN HCl 500MG Oral Tablet 12/14/2022 06/01/2023 ORAL TWICE A DAY 1000 MILLIGR AMS 586072 RxNorm TAKE 1000 MILLIGRAMS ORAL TWICE A DAY predniSONE 20MG Oral Tablet 03/06/2023 06/02/2023 ORAL DAILY 1 TABLET 976790 RxNorm TAKE 1 TABLET ORAL DAILY Zithromax 250MG Oral Tablet 03/06/2023 06/02/2023 ORAL DAILY 1 TABLET 893194 RxNorm TAKE 2 TABLETS ORAL DAILY ON DAY 1 AND THEN1 TABLET DAILY ON DAYS 2-5 Albuterol Sulfate 0.09MG/1Actuati on Inhalation Suspension 06/02/2023 Unknown INHAL ATION NEEDED EVERY 4 HOURS 2 PUFF 6404498 RxNorm 2 PUFF INHALATION EVERY 4 HOURS FOR 24 HOURS THEN NEEDED FOR Cough/Shortness of breath Zithromax 250MG Oral Tablet 06/02/2023 06/10/2023 ORAL DAILY 1 TABLET 983012 RxNorm TAKE 1 TABLET ORAL DAILY predniSONE 20MG Oral Tablet 06/02/2023 06/10/2023 ORAL DAILY 3 TABLET 287383 RxNorm TAKE 3 TABLET ORAL DAILY Mucinex D 600MG-60mg Oral Tablet, Extended Release 06/02/2023 09/01/2023 ORAL TWICE A DAY 1 TABLET 0348909 RxNorm TAKE 1 TABLET ORAL TWICE A DAY FOR 3-5 DAYS Zithromax 250MG Oral Tablet 06/10/2023 09/01/2023 ORAL DAILY 1 TABLET 154846 RxNorm TAKE 2 TABLETS ORAL DAILY ON DAY 1 AND THEN1 TABLET DAILY ON DAYS 2-5 Ibuprofen 800MG Oral Tablet 08/28/2023 10/04/2023 ORAL EVERY 8 HOURS 1 TABLET 331318 RxNorm TAKE 1 TABLET ORAL EVERY 8 HOURS Penicillin VK 500MG Oral Tablet 08/28/2023 09/01/2023 ORAL THREE TIMES A DAY 1 TABLET 443384 RxNorm TAKE 1 TABLET ORAL THREE TIMES A DAY Tylenol 325MG Oral Tablet 09/01/2023 10/04/2023 ORAL NEEDED EVERY 6 HOURS 2 TABLET 836115 RxNorm TAKE 2 TABLET ORAL NEEDED EVERY 6 HOURS Anbesol Maximum Strength 20% Oromucosal Gel/Jelly 09/01/2023 10/04/2023 OROMU COSAL THREE TIMES A DAY 1 RxNorm 1 OROMUCOSAL THREE TIMES A DAY Augmentin 875MG-125MG Oral Tablet 09/04/2023 10/04/2023 ORAL TWICE A DAY 1 TABLET 113507 RxNorm TAKE 1 TABLET ORAL TWICE A DAY Meclizine HCl 25MG Oral Tablet 10/04/2023 01/21/2024 ORAL NEEDED EVERY 8 HOURS 1 TABLET 080921 RxNorm TAKE 1 TABLET ORAL NEEDED EVERY 8 HOURS. No alcohol, recreational drugs, driving or operating machinery while taking this. Augmentin 875MG-125MG Oral Tablet 10/26/2023 11/06/2023 ORAL TWICE A DAY 1 TABLET 106366 RxNorm TAKE 1 TABLET ORAL TWICE A DAY Augmentin 875MG-125MG Oral Tablet 11/06/2023 12/11/2023 ORAL TWICE A DAY 1 TABLET 016174 RxNorm TAKE 1 TABLET ORAL TWICE A DAY Tessalon Perles 100MG Oral Capsule, Liquid Filled 11/06/2023 12/11/2023 ORAL NEEDED EVERY 6 HOURS 1 CAPSULE 970268 RxNorm TAKE 1 CAPSULE ORAL NEEDED EVERY 6 HOURS Zithromax 250MG Oral Tablet 02/16/2024 03/29/2024 ORAL DAILY 1 TABLET 590599 RxNorm TAKE 2 TABLETS ORAL DAILY ON DAY 1 AND THEN1 TABLET DAILY ON DAYS 2-5 Keflex 500MG Oral Capsule 03/29/2024 04/06/2024 ORAL THREE TIMES A DAY 1 CAPSULE 673763 RxNorm TAKE 1 CAPSULE ORAL THREE TIMES A DAY Keflex 500MG Oral Capsule 04/06/2024 Unknown ORAL THREE TIMES A DAY 1 CAPSULE 858542 RxNorm TAKE 1 CAPSULE ORAL THREE TIMES [...] Code Code System TYPE 2 DIABETES active 74176792 SNOM ED-CT HYPOTHYROIDISM active 24870279 SNOME D-CT DENTAL CARIES active 83038352 SNOMED -CT ACUTE BRONCHITIS active 94284659 SNO MED-CT SUPERFICIAL FOREIGN BODY, RIGHT FOOT, INITIAL ENCOUNTER active 887832449 SNOMED-CT ASTHMA 03/03/2022 resolved 176789487 SNOMED-CT ANXIETY 01/19/2022 resolved 34041772 SNOMED-CT HLD 09/10/2022 resolved 35789517 SNOMED-CT Allergies and Adverse Reactions Allergy Substance Reaction Severity Start Date Concern Status Code Code System SULFA (sulfonamide) Anaphylaxis (SNOMED-CT: 59507757) Active 90094077 SNOMED-CT MORPHINE Hives (SNOMED-CT: 834389657), Itching (SNOMED-CT: 879911150) Moderate Active 7052 RxNorm BEE POLLEN Anaphylaxis (SNOMED-CT: 72515703) Active 186878 RxNorm DILAUDID Hives (SNOMED-CT: 999985984), Itching (SNOMED-CT: 588815671) Moderate Active 137649 RxNorm Plan of Treatment Symptoms 08/09/2021 US PELVIC / TV 11/06/2023 CT CHEST W/O CONTRAST 03/13/2023 CT CHEST W/O CONTRAST 03/04/2023 SYMPTOMS 10/19/2022 LAB DRAW 15MIN 08/02/2022 LAB DRAW 15MIN 05/25/2022 SYMPTOMS 04/28/2022 EXPOSURE 12/07/2021 SYMPTOMS 11/22/2021 SYMPTOMS 2021 Encounters Encounter Diagnosis Start Date Code Code Sys tem Cutaneous abscess of right lower limb 09/04/2022 SNOMED-CT Personal Care Team Section Performer Name Performer Role Active Date Inactive Da campbell
--- OUTSIDE RECORDS SUMMARY | 2024-05-12 15:35 | XMS_ITS ---
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 Role Phone ELIUD SAHA Registered Nurse Unavailable TUAN Paredes Attending Unavailable CHAS Lopez Primary Unavailable UNLISTED PROVIDER - REQUESTED Xhandoff Un available Results CBC W/ DIFFERENTIAL* - Colle ct Date/Time: 07/16/2022 22:44 [facility] ID: [id number] [address], [place], [address] LOINC: 51439-2 Test Value Unit Reference Range Code Code System Flag WBC 14.90 th/cmm L=5.00 H=10.00 6690-2 LOINC H NEUT % 66.2 % L=40.0 H=80.0 LYMPH % 28.3 % L=10.0 H=50.0 MONO % 3.1 % L=2.0 H=12.0 48877-2 LOINC EOS % 1.8 % L=0.0 H=8.0 BASO % 0.3 % L=0.0 H=3.0 IG % 0.3 % L=0.0 H=1.1 2514-8 LOINC NRBC % 0.0 % L=0.0 H=0.0 03443-4 LOINC NEUT abs count 9.9 th/cmm L=1.6 H=8.4 751-8 LOINC H LYMPH abs count 4.2 th/cmm L=1.5 H=4.0 731-0 LOINC H MONO abs count 0.5 th/cmm L=0.2 H=1.0 742-7 LOINC EOS abs count 0.3 th/cmm L=0.0 H=0.5 711-2 LOINC BASO abs count 0.0 th/cmm L=0.0 H=0.2 704-7 LOINC IG abs count 0.1 th/cmm L=0.0 H=0.1 79136-4 LOINC NRBC abs count 0.0 mil/cmm L=0.0 H=0.0 44686-3 LOINC RBC 4.61 mil/cmm L=3.90 H=5.40 789-8 LOINC HEMOGLOBIN 13.3 gm/dL L=12.0 H=16.0 718-7 LOINC HEMATOCRIT 40 % L=37 H=47 4544-3 LOINC MCV 87 fL L=82 H=92 787-2 LOINC MCH 28.9 pg L=27.0 H=31.0 785-6 LOINC MCHC 33.3 % L=32.0 H=36.0 786-4 LOINC RDW-SD 41.0 fL L=39.0 H=49.0 788-0 LOINC PLATELET COUNT 328 th/cmm L=150 H=450 777-3 LOINC BASIC METABOLIC PANEL (BMP) - Collect Date/Time: 07/16/2022 22:44 [facility] ID: [id number] [address], [place], [address] LOINC: 18020-6 Test Value Unit Reference Range Code Code System Flag GLUCOSE 140 mg/dL L=70 H=116 2345-7 LOINC H BUN 13 mg/dL L=6 H=25 3094-0 LOINC CREATININE 0.93 mg/dL L=0.51 H=0.95 2160-0 LOINC SODIUM SERUM 136 mmol/L L=136 H=145 2951-2 LOINC POTASSIUM SERUM 3.5 mmol/L L=3.4 H=5.2 2823-3 LOINC CHLORIDE SERUM 101 mmol/L L=96 H=110 2075-0 LOINC CARBON DIOXIDE (CO2) 28 mmol/L L=22 H=34 2027-9 LOINC ANION GAP 6.7 mmol/L 64804-1 LOINC CALCIUM SERUM 9.1 mg/dL L=8.2 H=10.2 94286-1 LOINC AGE 41 years eGFR (non-Afr.Amer.) 67 mL/min 25340-1 LOINC eGFR (Afr-Citizen Of [place]) 81 mL/min 28978-[address] [facility] [address] NECK W IV CONTRAST - C ompleted: 07/16/2022 09:37 LOINC: Radiation optimization:?? Al l CT scans at this facility use at least one of these dose optimization techniques: automated exposure control; mA and/or kV adjustment per patient size (includes targeted exams where dose is matched to clinical indication); or iterative reconstruction. CT SCAN OF THE SOFT TISSUES OF THE NECK WITH IV CONTRAST: VISUALIZED PARANAL SINUSES: Frontal and sphenoid sinuses are clear as are the ethmoidal air cells. Right maxillary sinus is clear. On the left side there is some mucosal thickening and there is a tooth extending into the floor of the left maxillary sinus with surrounding mucosal thickening. ORODENTAL: There is significant apical dental disease evident in the right maxillary region as well as in the right mandible region. There is a small area of hypodensity just medial to the inner aspect of the right mandible in the floor of the mouth. This may be a small abscess. Remainder of the oral cavity appears unremarkable. OROPHARYNX: Unremarkable. RETROPHARYNGEAL SPACE: No prominent swelling. HYPOPHARYNX: Unremarkable. ARYEPIGLOTTIC FOLDS AND VOCAL CORDS: Unremarkable. SUBGLOTTIC AIRWAY: Unremarkable. VISUALIZED THYROID GLAND: Somewhat obscured by artifact from the shoulders. SALIVARY GLANDS: The parotid and submandibular glands appear unremarkable. No masses. No calculi. LYMPH NODES: No gross lymphadenopathy in the jugular chains/carotid chains. Multiple small subplatysmal lymph nodes are noted. VISUALIZED ORBITS: Unremarkable. IMPRESSION: 1. No prominent masses nor lymphadenopathy in the neck. There are, however, multiple slightly enlarged subplatysmal lymph nodes noted, the largest of these measuring 1.5 x 1.3 cm and located on the left side. 2. There is dental disease as described above. First read by [facility] teleradiology. Dictated by: SUGEY LEGER MD Transcribed by: ALEX 07/19/2209:00 [id number] Electronically Reviewed and Signed By: ALIREZA LEGER MD 07/19/22 19:11 Copy for: 185 HEALTH INFORMATION MGMT DISCHARGED Social History Type Status Start Date End Date Code Code Syst em Smoking History Current every day smoker [id number] SNOMED CT Smoking History Former smoker 0283988 SNOMED CT Smoking History Current some day smoker 11/25/[id number] Sex Female Vital Signs Vital Sign Value Unit [place] Value [place] Date/Time Recent/Initial? Code Code System Body Mass Index 47.66 kg/m2 07/16/2022 22:04 Initial 68973 -5 LOINC Systolic Blood Pressure 124 mm[Hg] 07/17/2022 01:08 Most Recent 8480- 6 LOINC Diastolic Blood Pressure 57 mm[Hg] 07/17/2022 01:08 Most Recent 8462- 4 LOINC Systolic Blood Pressure 144 mm[Hg] 07/16/2022 22:04 Initial 8480- 6 LOINC Diastolic Blood Pressure 85 mm[Hg] 07/16/2022 22:04 Initial 8462- 4 LOINC Body Surface Area 2.79 m2 07/16/2022 22:04 Initial 3140- 1 LOINC Height 180.340 0 cm 71.00 in 07/16/2022 22:04 Initial 8302- 2 INC O2 Saturation 96 % 2021 01:08 Most Recent 18676 -5 INC O2 Saturation 96 % 2021 22:04 Initial 00618 -5 LOINC Pulse 80.0 /min 07/17/2022 01:08 Most Recent 8867- 4 LOINC Pulse 87.0 /min 07/16/2022 22:04 Initial 8867- 4 LOINC Respiration 16 /min 07/17/20 01:08 Most Recent 9279- 1 LOINC Respiration 18 /min 07/17/20 00:02 Initial 9279- 1 LOINC Temperature 37.5 Teodora 99.5 F 07/16/20 22:04 Initial 8310- 5 LOINC Weight 155.00 kg 341.72 lbs 07/16/2022 22:04 Initial 77040 -7 [facility] Medications Medication Start Date End Date Route Frequency Dose Code Code System Medication Instructions Home Meds Penicillin VK 500MG Oral Tablet 07/08/2022 07/17/2022 ORAL FOUR TIMES A DAY 1 TABLET 009554 RxNorm TAKE 1 TABLET ORAL FOUR TIMES A DAY Ondansetron 4MG Oral Tablet, Disintegrating 07/17/2022 10/07/2022 ORAL NEEDED EVERY 6 HOURS 1 TABLET 767852 RxNorm TAKE 1 TABLET ORAL NEEDED EVERY 6 HOURS FOR Nausea/Vo miting HYDROcodone bitartrate-carlos taminophen 5MG-325MG Oral Tablet 07/17/2022 10/07/2022 ORAL NEEDED EVERY 4 HOURS 1 TABLET 298526 RxNorm TAKE 1 TABLET ORAL NEEDED EVERY 4 HOURS FOR Pain Ibuprofen 200MG Oral Tablet 07/17/2022 09/01/2023 ORAL EVERY 6 HOURS 3 TABLET 989967 RxNorm TAKE 3 TABLET ORAL EVERY 6 HOURS FOR 24 HOURS THEN NEEDED FOR PAIN Chlorhexidine Gluconate 0.12% Oral Liquid 07/17/2022 10/07/2022 ORAL THREE TIMES A DAY 5 mL RxNorm TAKE 5 mL ORAL SWISH AND SPIT THREE TIMES A DAY Bactrim DS 800MG-160MG Oral Tablet 09/04/2022 10/07/2022 ORAL TWICE A DAY 1 TABLET 263830 RxNorm TAKE 1 TABLET ORAL TWICE A DAY Benadryl Allergy 25MG Oral Tablet 09/11/2022 09/01/2023 ORAL EVERY 6 HOURS 2 TABLET 7953297 RxNorm TAKE 2 TABLET ORAL EVERY 6 HOURS Zofran 4MG Oral Tablet 10/07/2022 10/04/2023 ORAL NEEDED THREE TIMES A DAY 1 TABLET 475946 RxNorm TAKE 1 TABLET ORAL NEEDED THREE TIMES A DAY oxyCODONE HCl 5MG Oral Tablet 12/14/2022 09/01/2023 ORAL NEEDED EVERY 3 HOURS 5 MILLIGRAM S 4753284 RxNorm TAKE 5 MILLIGRAM S ORAL NEEDED EVERY 3 HOURS Atorvastatin Calcium 40MG Oral Tablet 12/14/2022 Unknown ORAL DAILY 40 MILLIGRAM S 627051 RxNorm TAKE 40 MILLIGRAM S ORAL DAILY Levothyroxine 200MCG Oral Tablet 12/14/2022 09/01/2023 ORAL DAILY 200 MCG 229823 RxNorm TAKE 200 MCG ORAL DAILY ProAir HFA 0.09MG/1Actuat ion Inhalation Suspension 12/14/2022 06/02/2023 INHALATI ON NEEDED 1 unit(s) 771359 RxNorm 1 EACH INHALATIO N NEEDED Trulicity 0.75MG/0.5ML Subcutaneous Solution 12/14/2022 09/01/2023 SUBCUTAN EOUS MONDAYS 1.5 MILLIGRAM S 3558256 RxNorm INJECT 1.5 MILLIGRAM S SUBCUTANE OUS MONDAYS metFORMIN HCl 500MG Oral Tablet 12/14/2022 06/01/2023 ORAL TWICE A DAY 1000 MILLIGRAM S 046676 RxNorm TAKE 1000 MILLIGRAM S ORAL TWICE A DAY predniSONE 20MG Oral Tablet 03/06/2023 06/02/2023 ORAL DAILY 1 TABLET 476372 RxNorm TAKE 1 TABLET ORAL DAILY Zithromax 250MG Oral Tablet 03/06/2023 06/02/2023 ORAL DAILY 1 TABLET 031505 RxNorm TAKE 2 TABLETS ORAL DAILY ON DAY 1 AND THEN1 TABLET DAILY ON DAYS 2-5 Albuterol Sulfate 0.09MG/1Actuat ion Inhalation Suspension 06/02/2023 Unknown INHALATI ON NEEDED EVERY 4 HOURS 2 PUFF 0616313 RxNorm 2 PUFF INHALATIO N EVERY 4 HOURS FOR 24 HOURS THEN NEEDED FOR Cough/Sandra rtness of breath Zithromax 250MG Oral Tablet 06/02/2023 06/10/2023 ORAL DAILY 1 TABLET 167634 RxNorm TAKE 1 TABLET ORAL DAILY predniSONE 20MG Oral Tablet 06/02/2023 06/10/2023 ORAL DAILY 3 TABLET 991455 RxNorm TAKE 3 TABLET ORAL DAILY Mucinex D 600MG-60mg Oral Tablet, Extended Release 06/02/2023 09/01/2023 ORAL TWICE A DAY 1 TABLET 1299318 RxNorm TAKE 1 TABLET ORAL TWICE A DAY FOR 3-5 DAYS Zithromax 250MG Oral Tablet 06/10/2023 09/01/2023 ORAL DAILY 1 TABLET 046966 RxNorm TAKE 2 TABLETS ORAL DAILY ON DAY 1 AND THEN1 TABLET DAILY ON DAYS 2-5 Ibuprofen 800MG Oral Tablet 08/28/2023 10/04/2023 ORAL EVERY 8 HOURS 1 TABLET 174691 RxNorm TAKE 1 TABLET ORAL EVERY 8 HOURS Penicillin VK 500MG Oral Tablet 08/28/2023 09/01/2023 ORAL THREE TIMES A DAY 1 TABLET 714248 RxNorm TAKE 1 TABLET ORAL THREE TIMES A DAY Tylenol 325MG Oral Tablet 09/01/2023 10/04/2023 ORAL NEEDED EVERY 6 HOURS 2 TABLET 389697 RxNorm TAKE 2 TABLET ORAL NEEDED EVERY 6 HOURS Anbesol Maximum Strength 20% Oromucosal Gel/Jelly 09/01/2023 10/04/2023 OROMUCOS AL THREE TIMES A DAY 1 RxNorm 1 OROMUCOSA L THREE TIMES A DAY Augmentin 875MG-125MG Oral Tablet 09/04/2023 10/04/2023 ORAL TWICE A DAY 1 TABLET 383198 RxNorm TAKE 1 TABLET ORAL TWICE A DAY Meclizine HCl 25MG Oral Tablet 10/04/2023 01/21/2024 ORAL NEEDED EVERY 8 HOURS 1 TABLET 058209 RxNorm TAKE 1 TABLET ORAL NEEDED EVERY 8 HOURS. No alcohol, recreatio nal drugs, driving or operating machinery while taking this. Augmentin 875MG-125MG Oral Tablet 10/26/2023 11/06/2023 ORAL TWICE A DAY 1 TABLET 999264 RxNorm TAKE 1 TABLET ORAL TWICE A DAY Augmentin 875MG-125MG Oral Tablet 11/06/2023 12/11/2023 ORAL TWICE A DAY 1 TABLET 498849 RxNorm TAKE 1 TABLET ORAL TWICE A DAY Tessalon Perles 100MG Oral Capsule, Liquid Filled 11/06/2023 12/11/2023 ORAL NEEDED EVERY 6 HOURS 1 CAPSULE 443218 RxNorm TAKE 1 CAPSULE ORAL NEEDED EVERY 6 HOURS Zithromax 250MG Oral Tablet 02/16/2024 03/29/2024 ORAL DAILY 1 TABLET 499753 RxNorm TAKE 2 TABLETS ORAL DAILY ON DAY 1 AND THEN1 TABLET DAILY ON DAYS 2-5 Keflex 500MG Oral Capsule 03/29/2024 04/06/2024 ORAL THREE TIMES A DAY 1 CAPSULE 538524 RxNorm TAKE 1 CAPSULE ORAL THREE TIMES A DAY Keflex 500MG Oral Capsule 04/06/2024 Unknown ORAL THREE TIMES A DAY 1 CAPSULE 878816 RxNorm TAKE 1 CAPSULE ORAL THREE TIMES [...] Code Code System TYPE 2 DIABETES active 63068609 SNOM ED-CT HYPOTHYROIDISM active 66978263 SNOME D-CT DENTAL CARIES active 70135653 SNOMED -CT ACUTE BRONCHITIS active 48975010 SNO MED-CT SUPERFICIAL FOREIGN BODY, RIGHT FOOT, INITIAL ENCOUNTER active 642614346 SNOMED-CT ASTHMA 03/03/2022 resolved 609975170 SNOMED-CT ANXIETY 01/19/2022 resolved 41655491 SNOMED-CT HLD 09/10/2022 resolved 13245064 SNOMED-CT Allergies and Adverse Reactions Allergy Substance Reaction Severity Start Date Concern Status Code Code System SULFA (sulfonamide) Anaphylaxis (SNOMED-CT: 66784972) Active 94071716 SNOMED-CT MORPHINE Hives (SNOMED-CT: 860810191), Itching (SNOMED-CT: 018577148) Moderate Active 7052 RxNorm BEE POLLEN Anaphylaxis (SNOMED-CT: 03450906) Active 940173 RxNorm DILAUDID Hives (SNOMED-CT: 113238708), Itching (SNOMED-CT: 710259546) Moderate Active 597135 RxNorm Plan of Treatment Symptoms 08/09/2021 US PELVIC / TV 11/06/2023 CT CHEST W/O CONTRAST 03/13/2023 CT CHEST W/O CONTRAST 03/04/2023 SYMPTOMS 10/19/2022 LAB DRAW 15MIN 08/02/2022 LAB DRAW 15MIN 05/25/2022 SYMPTOMS 04/28/2022 EXPOSURE 12/07/2021 SYMPTOMS 11/22/2021 SYMPTOMS 2021 OUTPATIENT PLAN: Discharge Medications Medication Dosage Route Frequency Prescribing MD Special Instructions Ondansetron 4MG Oral Tablet, Disintegrating 1 TABLET ORAL NEEDED EVERY 6 HOURS TUAN Paredes TAKE 1 TABLET ORAL NEEDED EVERY 6 HOURS FOR Nausea/Vomiting HYDROcodone bitartrate-acetaminophen 5MG-325MG Oral Tablet (MAXIMUM TYLENOL 1000mg EVERY 4 HOURS) 1 TABLET ORAL NEEDED EVERY 4 HOURS TUAN Paredes TAKE 1 TABLET ORAL NEEDED EVERY 4 HOURS FOR Pain Ibuprofen 200MG Oral Tablet (IF BIOPSY IS POSTPONED) 3 TABLET ORAL EVERY 6 HOURS TUAN Paredes TAKE 3 TABLET ORAL EVERY 6 HOURS FOR 24 HOURS THEN NEEDED FOR PAIN Chlorhexidine Gluconate 0.12% Oral Liquid 5 mL ORAL THREE TIMES A DAY TUAN Paredes TAKE 5 mL ORAL SWISH AND SPIT THREE TIMES A DAY Your prescription was printed. Continue your clindamycin until it is all gone. Follow up: Please see your doctor as scheduled. Please call the doctor performing the biopsy to let them know you have an infection being treated. You can take ibuprofen 600mg every 6 hours if biopsy is postponed. Other Instructions: Room temperature salt water swishes ever 3-4 hours while awake. Encounters Encounter Diagnosis Start Date Code Code Sys tem Localized swelling, mass and lump, head 07/16/2022 SNOMED-CT Personal Care Team Section Performer Name Performer Role Active Date Inactive Da campbell
--- OUTSIDE RECORDS SUMMARY | 2024-05-12 15:36 | XMS_ITS ---
Author Name Unknown Address [address], [place] [id number] Phone Organization Unknown Address [address] [place] [phone] Phone Care Team Providers Care Radarman Name Role Phone CARMENCITA SUMMERS Registered Nurse Unavailable JAVIER Larson Attending Unavailable CHAS Lopez Primary Unavailable UNLISTED PROVIDER - REQUESTED Xhandoff Un available Results GLUCOSE FINGER/HEEL CAPILLAR Y - Collect Date/Time: 10/07/2022 14:38 [facility] ID: [id number] [address] [place] [address], [phone] LOINC: 00382-1 Test Value Unit Reference Range Code Code System Flag GLUCOSE CAP 105 mg/dL L=70 H=116 [facility] COVID FLU RSV GENEXPE RT - Collect Date/Time: 10/07/2022 14:26 [facility] ID: [id number] [address] [place] [address], [phone] LOINC: 83522-1 Test Value Unit Reference Range Code Code System Flag COVID NEGATIVE Normal: Negative 17184-7 LOINC INFLUENZA A DNA NEGATIVE Normal: Negative 83780-5 LOINC INFLUENZA B DNA NEGATIVE Normal: Negative 42509-4 LOINC RSV DNA NEGATIVE Normal: Negative 11991-0 LOINC Social History Type Status Start Date End Date Code Code Syst em Smoking History Current every day smoker 268062949 SNOMED CT Smoking History Former smoker 8531084 SNOMED CT Smoking History Current some day smoker 11/25/[id number] Sex Female Vital Signs Vital Sign Value Unit Esmeralda Value Esmeralda Unit Date/Time Recent/Initial? Code Code System Body Mass Index 46.72 kg/m2 10/07/2022 13:58 Initial 23528 -5 LOINC Systolic Blood Pressure 124 mm[Hg] 10/07/2022 13:58 Initial 8480- 6 LOINC Diastolic Blood Pressure 89 mm[Hg] 10/07/2022 13:58 Initial 8462- 4 LOINC Body Surface Area 2.76 m2 10/07/2022 13:58 Initial 3140- 1 LOINC Height 180.340 0 cm 71.00 in 10/07/2022 13:58 Initial 8302- 2 LOINC O2 Saturation 98 % 2021 13:58 Initial 29137 -5 LOINC Pulse 82.0 /min 10/07/2022 13:58 Initial 8867- 4 LOINC Respiration 18 /min 10/07/20 13:58 Initial 9279- 1 LOINC Temperature 37.4 Teodora 99.3 F 10/07/20 13:58 Initial 8310- 5 LOINC Weight 151.95 kg 335.00 lbs 10/07/2022 13:58 Initial 81932 -7 [facility] Medications Medication Start Date End Date Route Frequency Dose Code Code System Medication Instructions Home Meds Ondansetron 4MG Oral Tablet, Disintegrating 07/17/2022 10/07/2022 ORAL NEEDED EVERY 6 HOURS 1 TABLET 685835 RxNorm TAKE 1 TABLET ORAL NEEDED EVERY 6 HOURS FOR Nausea/Vomiting HYDROcodone bitartrate-acet aminophen 5MG-325MG Oral Tablet 07/17/2022 10/07/2022 ORAL NEEDED EVERY 4 HOURS 1 TABLET 624912 RxNorm TAKE 1 TABLET ORAL NEEDED EVERY 4 HOURS FOR Pain Ibuprofen 200MG Oral Tablet 07/17/2022 09/01/2023 ORAL EVERY 6 HOURS 3 TABLET 539034 RxNorm TAKE 3 TABLET ORAL EVERY 6 HOURS FOR 24 HOURS THEN NEEDED FOR PAIN Chlorhexidine Gluconate 0.12% Oral Liquid 07/17/2022 10/07/2022 ORAL THREE TIMES A DAY 5 mL RxNorm TAKE 5 mL ORAL SWISH AND SPIT THREE TIMES A DAY Bactrim DS 800MG-160MG Oral Tablet 09/04/2022 10/07/2022 ORAL TWICE A DAY 1 TABLET 367210 RxNorm TAKE 1 TABLET ORAL TWICE A DAY Benadryl Allergy 25MG Oral Tablet 09/11/2022 09/01/2023 ORAL EVERY 6 HOURS 2 TABLET 5674656 RxNorm TAKE 2 TABLET ORAL EVERY 6 HOURS Zofran 4MG Oral Tablet 10/07/2022 10/04/2023 ORAL NEEDED THREE TIMES A DAY 1 TABLET 854476 RxNorm TAKE 1 TABLET ORAL NEEDED THREE TIMES A DAY oxyCODONE HCl 5MG Oral Tablet 12/14/2022 09/01/2023 ORAL NEEDED EVERY 3 HOURS 5 MILLIGR AMS 9250083 RxNorm TAKE 5 MILLIGRAMS ORAL NEEDED EVERY 3 HOURS Atorvastatin Calcium 40MG Oral Tablet 12/14/2022 Unknown ORAL DAILY 40 MILLIGR AMS 859015 RxNorm TAKE 40 MILLIGRAMS ORAL DAILY Levothyroxine 200MCG Oral Tablet 12/14/2022 09/01/2023 ORAL DAILY 200 MCG 438479 RxNorm TAKE 200 M CG ORAL DAILY ProAir HFA 0.09MG/1Actuati on Inhalation Suspension 12/14/2022 06/02/2023 INHAL ATION NEEDED 1 unit(s) 767533 RxNorm 1 EACH INHALATION NEEDED Trulicity 0.75MG/0.5ML Subcutaneous Solution 12/14/2022 09/01/2023 SUBCU TANEO US MONDAYS 1.5 MILLIGR AMS 1337237 RxNorm INJECT 1.5 MILLIGRAMS SUBCUTANEOUS MONDAYS metFORMIN HCl 500MG Oral Tablet 12/14/2022 06/01/2023 ORAL TWICE A DAY 1000 MILLIGR AMS 148196 RxNorm TAKE 1000 MILLIGRAMS ORAL TWICE A DAY predniSONE 20MG Oral Tablet 03/06/2023 06/02/2023 ORAL DAILY 1 TABLET 474861 RxNorm TAKE 1 TABLET ORAL DAILY Zithromax 250MG Oral Tablet 03/06/2023 06/02/2023 ORAL DAILY 1 TABLET 894986 RxNorm TAKE 2 TABLETS ORAL DAILY ON DAY 1 AND THEN1 TABLET DAILY ON DAYS 2-5 Albuterol Sulfate 0.09MG/1Actuati on Inhalation Suspension 06/02/2023 Unknown INHAL ATION NEEDED EVERY 4 HOURS 2 PUFF 0767464 RxNorm 2 PUFF INHALATION EVERY 4 HOURS FOR 24 HOURS THEN NEEDED FOR Cough/Shortness of breath Zithromax 250MG Oral Tablet 06/02/2023 06/10/2023 ORAL DAILY 1 TABLET 059639 RxNorm TAKE 1 TABLET ORAL DAILY predniSONE 20MG Oral Tablet 06/02/2023 06/10/2023 ORAL DAILY 3 TABLET 812801 RxNorm TAKE 3 TABLET ORAL DAILY Mucinex D 600MG-60mg Oral Tablet, Extended Release 06/02/2023 09/01/2023 ORAL TWICE A DAY 1 TABLET 4073371 RxNorm TAKE 1 TABLET ORAL TWICE A DAY FOR 3-5 DAYS Zithromax 250MG Oral Tablet 06/10/2023 09/01/2023 ORAL DAILY 1 TABLET 766205 RxNorm TAKE 2 TABLETS ORAL DAILY ON DAY 1 AND THEN1 TABLET DAILY ON DAYS 2-5 Ibuprofen 800MG Oral Tablet 08/28/2023 10/04/2023 ORAL EVERY 8 HOURS 1 TABLET 771226 RxNorm TAKE 1 TABLET ORAL EVERY 8 HOURS Penicillin VK 500MG Oral Tablet 08/28/2023 09/01/2023 ORAL THREE TIMES A DAY 1 TABLET 688146 RxNorm TAKE 1 TABLET ORAL THREE TIMES A DAY Tylenol 325MG Oral Tablet 09/01/2023 10/04/2023 ORAL NEEDED EVERY 6 HOURS 2 TABLET 350676 RxNorm TAKE 2 TABLET ORAL NEEDED EVERY 6 HOURS Anbesol Maximum Strength 20% Oromucosal Gel/Jelly 09/01/2023 10/04/2023 OROMU COSAL THREE TIMES A DAY 1 RxNorm 1 OROMUCOSAL THREE TIMES A DAY Augmentin 875MG-125MG Oral Tablet 09/04/2023 10/04/2023 ORAL TWICE A DAY 1 TABLET 731143 RxNorm TAKE 1 TABLET ORAL TWICE A DAY Meclizine HCl 25MG Oral Tablet 10/04/2023 01/21/2024 ORAL NEEDED EVERY 8 HOURS 1 TABLET 266952 RxNorm TAKE 1 TABLET ORAL NEEDED EVERY 8 HOURS. No alcohol, recreational drugs, driving or operating machinery while taking this. Augmentin 875MG-125MG Oral Tablet 10/26/2023 11/06/2023 ORAL TWICE A DAY 1 TABLET 028431 RxNorm TAKE 1 TABLET ORAL TWICE A DAY Augmentin 875MG-125MG Oral Tablet 11/06/2023 12/11/2023 ORAL TWICE A DAY 1 TABLET 951552 RxNorm TAKE 1 TABLET ORAL TWICE A DAY Tessalon Perles 100MG Oral Capsule, Liquid Filled 11/06/2023 12/11/2023 ORAL NEEDED EVERY 6 HOURS 1 CAPSULE 880174 RxNorm TAKE 1 CAPSULE ORAL NEEDED EVERY 6 HOURS Zithromax 250MG Oral Tablet 02/16/2024 03/29/2024 ORAL DAILY 1 TABLET 279136 RxNorm TAKE 2 TABLETS ORAL DAILY ON DAY 1 AND THEN1 TABLET DAILY ON DAYS 2-5 Keflex 500MG Oral Capsule 03/29/2024 04/06/2024 ORAL THREE TIMES A DAY 1 CAPSULE 044898 RxNorm TAKE 1 CAPSULE ORAL THREE TIMES A DAY Keflex 500MG Oral Capsule 04/06/2024 Unknown ORAL THREE TIMES A DAY 1 CAPSULE 660689 RxNorm TAKE 1 CAPSULE ORAL THREE TIMES [...] Code Code System TYPE 2 DIABETES active 73238134 SNOM ED-CT HYPOTHYROIDISM active 24147270 SNOME D-CT DENTAL CARIES active 75847134 SNOMED -CT ACUTE BRONCHITIS active 71257074 SNO MED-CT SUPERFICIAL FOREIGN BODY, RIGHT FOOT, INITIAL ENCOUNTER active 824731802 SNOMED-CT ASTHMA 03/03/2022 resolved 176864005 SNOMED-CT ANXIETY 01/19/2022 resolved 67084352 SNOMED-CT HLD 09/10/2022 resolved 11439953 SNOMED-CT Allergies and Adverse Reactions Allergy Substance Reaction Severity Start Date Concern Status Code Code System SULFA (sulfonamide) Anaphylaxis (SNOMED-CT: 59036444) Active 85299192 SNOMED-CT MORPHINE Hives (SNOMED-CT: 960041017), Itching (SNOMED-CT: 967545221) Moderate Active 7052 RxNorm BEE POLLEN Anaphylaxis (SNOMED-CT: 20710890) Active 531888 RxNorm DILAUDID Hives (SNOMED-CT: 960612706), Itching (SNOMED-CT: 651002584) Moderate Active 835074 RxNorm Plan of Treatment Symptoms 08/09/2021 US PELVIC / TV 11/06/2023 CT CHEST W/O CONTRAST 03/13/2023 CT CHEST W/O CONTRAST 03/04/2023 SYMPTOMS 10/19/2022 LAB DRAW 15MIN 08/02/2022 LAB DRAW 15MIN 05/25/2022 SYMPTOMS 04/28/2022 EXPOSURE 12/07/2021 SYMPTOMS 11/22/2021 SYMPTOMS 2021 Encounters Encounter Diagnosis Start Date Code Code Sys tem Nausea with vomiting, unspecified 10/07/2022 SNOMED-CT Personal Care Team Section Performer Name Performer Role Active Date Inactive Rony hightower
--- OUTSIDE RECORDS SUMMARY | 2024-05-12 15:36 | XMS_ITS ---
Author Name Unknown Address [address], [place] [phone] Phone Organization Unknown Address [address] [place] [phone] Phone Care Team Providers Care Health And Safety Manager Name Role Phone PHUONG Molina Attending Unavailable CHAS Lopez Primary Unavailable Results [facility]* - Brijesh ect Date/Time: 10/19/2022 09:49 [facility] ID: [id number] [address] [place] [address], [phone] LOINC: 67083-6 Test Value Unit Reference Range Code Code System Flag Tier- SYMPTOMS 90161-1 LOINC SARS COV2 RNA: NEGATIVE REFERENCE RANGE: NEGAT 61483-7 L OINC Social History Type Status Start Date End Date Code Code Syst em Smoking History Current every day smoker 467855681 SNOMED CT Smoking History Former smoker 1515764 SNOMED CT Smoking History Current some day smoker 11/25/[id number] Sex Female Medications Medication Start Date End Date Route Frequency Dose Code Code System Medication Instructions Home Meds Ibuprofen 200MG Oral Tablet 07/17/2022 09/01/2023 ORAL EVERY 6 HOURS 3 TABLET 629543 RxNorm TAKE 3 TABLET ORAL EVERY 6 HOURS FOR 24 HOURS THEN NEEDED FOR PAIN Benadryl Allergy 25MG Oral Tablet 09/11/2022 09/01/2023 ORAL EVERY 6 HOURS 2 TABLET 3811603 RxNorm TAKE 2 TABLET ORAL EVERY 6 HOURS Zofran 4MG Oral Tablet 10/07/2022 10/04/2023 ORAL NEEDED THREE TIMES A DAY 1 TABLET 525765 RxNorm TAKE 1 TABLET ORAL NEEDED THREE TIMES A DAY oxyCODONE HCl 5MG Oral Tablet 12/14/2022 09/01/2023 ORAL NEEDED EVERY 3 HOURS 5 MILLIGRAMS 8906515 RxNorm TAKE 5 MILLIGRAM S ORAL NEEDED EVERY 3 HOURS Atorvastatin Calcium 40MG Oral Tablet 12/14/2022 Unknown ORAL DAILY 40 MILLIGRAMS 855983 RxNorm TAKE 40 MILLIGRAM S ORAL DAILY Levothyroxine 200MCG Oral Tablet 12/14/2022 09/01/2023 ORAL DAILY 200 MCG 594691 RxNorm TAKE 200 MCG ORAL DAILY ProAir HFA 0.09MG/1Actua tion Inhalation Suspension 12/14/2022 06/02/2023 INHALATI ON NEEDED 1 unit(s) 157090 RxNorm 1 EACH INHALATIO N NEEDED Trulicity 0.75MG/0.5ML Subcutaneous Solution 12/14/2022 09/01/2023 SUBCUTAN EOUS MONDAYS 1.5 MILLIGRAMS 0150684 RxNorm INJECT 1.5 MILLIGRAM S SUBCUTANE OUS MONDAYS metFORMIN HCl 500MG Oral Tablet 12/14/2022 06/01/2023 ORAL TWICE A DAY 1000 MILLIGRAMS 704938 RxNorm TAKE 1000 MILLIGRAM S ORAL TWICE A DAY predniSONE 20MG Oral Tablet 03/06/2023 06/02/2023 ORAL DAILY 1 TABLET 615254 RxNorm TAKE 1 TABLET ORAL DAILY Zithromax 250MG Oral Tablet 03/06/2023 06/02/2023 ORAL DAILY 1 TABLET 525109 RxNorm TAKE 2 TABLETS ORAL DAILY ON DAY 1 AND THEN1 TABLET DAILY ON DAYS 2-5 Albuterol Sulfate 0.09MG/1Actua tion Inhalation Suspension 06/02/2023 Unknown INHALATI ON NEEDED EVERY 4 HOURS 2 PUFF 0902508 RxNorm 2 PUFF INHALATIO N EVERY 4 HOURS FOR 24 HOURS THEN NEEDED FOR Cough/Sandra rtness of breath Zithromax 250MG Oral Tablet 06/02/2023 06/10/2023 ORAL DAILY 1 TABLET 696612 RxNorm TAKE 1 TABLET ORAL DAILY predniSONE 20MG Oral Tablet 06/02/2023 06/10/2023 ORAL DAILY 3 TABLET 274864 RxNorm TAKE 3 TABLET ORAL DAILY Mucinex D 600MG-60mg Oral Tablet, Extended Release 06/02/2023 09/01/2023 ORAL TWICE A DAY 1 TABLET 4940120 RxNorm TAKE 1 TABLET ORAL TWICE A DAY FOR 3-5 DAYS Zithromax 250MG Oral Tablet 06/10/2023 09/01/2023 ORAL DAILY 1 TABLET 333044 RxNorm TAKE 2 TABLETS ORAL DAILY ON DAY 1 AND THEN1 TABLET DAILY ON DAYS 2-5 Ibuprofen 800MG Oral Tablet 08/28/2023 10/04/2023 ORAL EVERY 8 HOURS 1 TABLET 779231 RxNorm TAKE 1 TABLET ORAL EVERY 8 HOURS Penicillin VK 500MG Oral Tablet 08/28/2023 09/01/2023 ORAL THREE TIMES A DAY 1 TABLET 222707 RxNorm TAKE 1 TABLET ORAL THREE TIMES A DAY Tylenol 325MG Oral Tablet 09/01/2023 10/04/2023 ORAL NEEDED EVERY 6 HOURS 2 TABLET 283177 RxNorm TAKE 2 TABLET ORAL NEEDED EVERY 6 HOURS Anbesol Maximum Strength 20% Oromucosal Gel/Jelly 09/01/2023 10/04/2023 OROMUCOS AL THREE TIMES A DAY 1 RxNorm 1 OROMUCOSA L THREE TIMES A DAY Augmentin 875MG-125MG Oral Tablet 09/04/2023 10/04/2023 ORAL TWICE A DAY 1 TABLET 764320 RxNorm TAKE 1 TABLET ORAL TWICE A DAY Meclizine HCl 25MG Oral Tablet 10/04/2023 01/21/2024 ORAL NEEDED EVERY 8 HOURS 1 TABLET 567423 RxNorm TAKE 1 TABLET ORAL NEEDED EVERY 8 HOURS. No alcohol, recreatio nal drugs, driving or operating machinery while taking this. Augmentin 875MG-125MG Oral Tablet 10/26/2023 11/06/2023 ORAL TWICE A DAY 1 TABLET 800936 RxNorm TAKE 1 TABLET ORAL TWICE A DAY Augmentin 875MG-125MG Oral Tablet 11/06/2023 12/11/2023 ORAL TWICE A DAY 1 TABLET 122182 RxNorm TAKE 1 TABLET ORAL TWICE A DAY Tessalon Perles 100MG Oral Capsule, Liquid Filled 11/06/2023 12/11/2023 ORAL NEEDED EVERY 6 HOURS 1 CAPSULE 960408 RxNorm TAKE 1 CAPSULE ORAL NEEDED EVERY 6 HOURS Zithromax 250MG Oral Tablet 02/16/2024 03/29/2024 ORAL DAILY 1 TABLET 913541 RxNorm TAKE 2 TABLETS ORAL DAILY ON DAY 1 AND THEN1 TABLET DAILY ON DAYS 2-5 Keflex 500MG Oral Capsule 03/29/2024 04/06/2024 ORAL THREE TIMES A DAY 1 CAPSULE 743929 RxNorm TAKE 1 CAPSULE ORAL THREE TIMES A DAY Keflex 500MG Oral Capsule 04/06/2024 Unknown ORAL THREE TIMES A DAY 1 CAPSULE 601621 RxNorm TAKE 1 CAPSULE ORAL THREE TIMES [...] Code Code System TYPE 2 DIABETES active 31751898 SNOM ED-CT HYPOTHYROIDISM active 49978575 SNOME D-CT DENTAL CARIES active 59946347 SNOMED -CT ACUTE BRONCHITIS active 28003902 SNO MED-CT SUPERFICIAL FOREIGN BODY, RIGHT FOOT, INITIAL ENCOUNTER active 241508153 SNOMED-CT ASTHMA 03/03/2022 resolved 360060955 SNOMED-CT ANXIETY 01/19/2022 resolved 33344791 SNOMED-CT HLD 09/10/2022 resolved 88418542 SNOMED-CT Allergies and Adverse Reactions Allergy Substance Reaction Severity Start Date Concern Status Code Code System SULFA (sulfonamide) Anaphylaxis (SNOMED-CT: 65580876) Active 11825290 SNOMED-CT MORPHINE Hives (SNOMED-CT: 148786688), Itching (SNOMED-CT: 265599272) Moderate Active 7052 RxNorm BEE POLLEN Anaphylaxis (SNOMED-CT: 39595267) Active 460573 RxNorm DILAUDID Hives (SNOMED-CT: 303452496), Itching (SNOMED-CT: 846942627) Moderate Active 327223 RxNorm Plan of Treatment Symptoms 08/09/2021 US PELVIC / TV 11/06/2023 CT CHEST W/O CONTRAST 03/13/2023 CT CHEST W/O CONTRAST 03/04/2023 SYMPTOMS 10/19/2022 LAB DRAW 15MIN 08/02/2022 LAB DRAW 15MIN 05/25/2022 SYMPTOMS 04/28/2022 EXPOSURE 12/07/2021 SYMPTOMS 11/22/2021 SYMPTOMS 2021 Encounters Encounter Diagnosis Start Date Code Code Sys tem Exposure to SARS-CoV-2 10/19/2022 [id number] IGNACIO D-CT Personal Care Team Section Performer Name Performer Role Active Date Inactive Da te
--- OUTSIDE RECORDS SUMMARY | 2024-05-12 15:37 | XMS_ITS ---
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 Name Role Phone ELLIE AVILA Registered Nurse Unavailab dallas PARISH Registered Nurse Unavailable ROCKY Paredes Attending Unavailable CHAS Lopez Primary Unavailable Results URINALYSIS WITH REFLEX CULT IF POSITIVE* - Collect Date/Time: 12/12/2022 16:38 [facility] ID: [id number] [address] [place], [place], [address] LOINC: 06358-1 Test Value Unit Reference Range Code Code System Flag COLLECTION MODE: CLEAN CATCH 52261-9 LOINC Color YELLOW yellow 5778-6 LOINC Appearance CLEAR clear 5767-9 LOINC Glucose urine NEGATIVE negative mg/dl 54283-4 LOINC Bilirubin NEGATIVE negative 5770-3 LOINC Ketones NEGATIVE negative mg/dl 2514-8 LOINC Spec gravity 1.015 1.003 - 1.030 5811-5 LOINC pH urine 6.0 5.0 - 7.0 2756-5 LOINC Protein NEGATIVE negative mg/dl 86226-7 LOINC Urobilinogen 0.2 <or= 1 EU/dl 64090-1 LOINC Nitrite. NEGATIVE negative 5802-4 LOINC Blood NEGATIVE negative 5794-3 LOINC Leukocytes. NEGATIVE negative MICROSCOPIC NOT INDICAT LIPASE* NEW - Collect Date/T mauricio: 12/12/2022 15:14 [facility] ID: [id number] [address], [place], [id number] LOINC: 3040-3 Test Value Unit Reference Range Code Code System Flag LIPASE. 26 U/L L=16 H=77 TEST QUAL (SERUM) - Collect Date/Time: 12/12/2022 15:14 [facility] ID: [id number] [address] [place], [place], [address] LOINC: 2118-8 Test Value Unit Reference Range Code Code System Flag TEST NEGATIVE 2106-3 LOINC COMPREHENSIVE METABOLIC PANE L (CMP) - Collect Date/Time: 12/12/2022 15:14 [facility] ID: [id number] [address] [place], [place], [address] LOINC: 98058-9 Test Value Unit Reference Range Code Code System Flag GLUCOSE 101 mg/dL L=70 H=116 2345-7 LOINC BUN 13 mg/dL L=6 H=25 3094-0 LOINC CREATININE 0.91 mg/dL L=0.51 H=0.95 2160-0 LOINC SODIUM SERUM 141 mmol/L L=136 H=145 2951-2 LOINC POTASSIUM SERUM 4.2 mmol/L L=3.4 H=5.2 2823-3 LOINC CHLORIDE SERUM 104 mmol/L L=96 H=110 2075-0 LOINC CARBON DIOXIDE (CO2) 31 mmol/L L=22 H=34 2028-9 LOINC ANION GAP 5.8 mmol/L 30995-1 LOINC CALCIUM SERUM 9.2 mg/dL L=8.2 H=10.2 13191-2 LOINC BILIRUBIN TOTAL 0.2 mg/dL L=0.0 H=1.3 1975-2 LOINC ALK. PHOS. 95 U/L L=46 H=116 6768-6 LOINC SGOT (AST) 17 U/L L=15 H=37 1920-8 LOINC SGPT (ALT) 19 U/L L=12 H=78 1742-6 LOINC TOTAL PROTEIN 7.4 gm/dL L=6.0 H=8.0 2885-2 LOINC ALBUMIN 3.2 gm/dL L=3.4 H=5.0 1751-7 LOINC L AGE 42 years eGFR (non-Afr.Amer.) 68 mL/min 26827-8 LOINC eGFR (Afr-Mauritian) 82 mL/min 10489-0 LOINC CBC W/ DIFFERENTIAL* - Colle ct Date/Time: 12/12/2022 15:14 [facility] ID: [id number] [address] [place], [place], [address] LOINC: 04563-5 Test Value Unit Reference Range Code Code System Flag WBC 11.65 th/cmm L=5.00 H=10.00 6690-2 LOINC H NEUT % 64.1 % L=40.0 H=80.0 LYMPH % 28.7 % L=10.0 H=50.0 MONO % 4.6 % L=2.0 H=12.0 59253-6 LOINC EOS % 2.1 % L=0.0 H=8.0 BASO % 0.3 % L=0.0 H=3.0 IG % 0.2 % L=0.0 H=1.1 2514-8 LOINC NRBC % 0.0 % L=0.0 H=0.0 35401-2 LOINC NEUT abs count 7.5 th/cmm L=1.6 H=8.4 751-8 LOINC LYMPH abs count 3.3 th/cmm L=1.5 H=4.0 731-0 LOINC MONO abs count 0.5 th/cmm L=0.2 H=1.0 742-7 LOINC EOS abs count 0.2 th/cmm L=0.0 H=0.5 711-2 LOINC BASO abs count 0.0 th/cmm L=0.0 H=0.2 704-7 LOINC IG abs count 0.0 th/cmm L=0.0 H=0.1 99524-7 LOINC NRBC abs count 0.0 mil/cmm L=0.0 H=0.0 30588-1 LOINC RBC 4.61 mil/cmm L=3.90 H=5.40 789-8 LOINC HEMOGLOBIN 13.0 gm/dL L=12.0 H=16.0 718-7 LOINC HEMATOCRIT 40 % L=37 H=47 4544-3 LOINC MCV 87 fL L=82 H=92 787-2 LOINC MCH 28.2 pg L=27.0 H=31.0 785-6 LOINC MCHC 32.3 % L=32.0 H=36.0 786-4 LOINC RDW-SD 44.4 fL L=39.0 H=49.0 788-0 LOINC PLATELET COUNT 302 th/cmm L=150 H=450 777-[address] ABD PELVIS W IV CONTRAST ONLY - Completed: 12/12/2022 17:22 LOINC: [facility] [place], [place] [address] 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 Contrast Material: Intravenous: Omnipaque. Contrast volume: 100 mL Comparison: Comparison is made with prior examinations. FINDINGS: ABDOMEN: Lung Bases: Normal where visualized. Liver: Normal density. The liver is mildly enlarged. There is a tiny hypodensity in the liver. It is too small for further characterization, but like reflects a small cyst. Portal, Superior Mesenteric, and Splenic Veins: Unremarkable. Gallbladder and Biliary Tract: Status postcholecystectomy. No significant biliary ductal dilatation. Pancreas: Normal density, no abnormal calcifications or inflammatory process. Spleen: Splenomegaly. Adrenals: No masses seen. Kidneys: The patient is status post partial right nephrectomy. There is a stable left renal cyst. No radiodense stones or obstructive uropathy. No suspicious renal masses are present. Abdominal Aorta: Abdominal portion non-dilated. Mild atherosclerosis. Bowel: There is diverticulosis seen in the colon, but no evidence of acute diverticulitis. The appendix measures 1.1 cm in diameter. Mild periappendiceal stranding. No definite appendicolith is seen. No abscess is present. Peritoneal Cavity: No ascites, collection or mesenteric inflammatory response. No free air. Lymph Nodes: Within normal limits. Bones: Within normal limits for the patient's age. Soft Tissues: Nonspecific stranding in the anterior abdominal wall. No fluid collection is seen. PELVIS: Bladder: Symmetric distention, no gross wall thickening. Reproductive Organs: Unremarkable as visualized. Lymph Nodes: Within normal limits. Bones: Within normal limits for the patient's age. IMPRESSION: 1. Findings suggestive of acute appendicitis. No abscess or free air. 2. Interval partial right nephrectomy. Radiation Optimization: All CT scans at this facility use at least one of these dose optimization techniques: automated exposure control; mA and/or kV adjustment per patient size (includes targeted exams where dose is matched to clinical indication); or iterative reconstruction. Report Digitally Signed by Brad Paulino on 12/13/2022 07:01 AM EST Social History Type Status Start Date End Date Code Code Syst em Smoking History Current every day smoker 604642736 SNOMED CT Smoking History Former smoker 7651026 SNOMED CT Smoking History Current some day smoker 11/25/[id number] Sex Female Vital Signs Vital Sign Value Unit Coal Value Coal Unit Date/Time Recent/Initial? Code Code System Body Mass Index 45.61 kg/m2 12/12/2022 14:28 Initial 03228 -5 LOINC Systolic Blood Pressure 127 mm[Hg] 12/12/2022 20:54 Most Recent 8480- 6 LOINC Diastolic Blood Pressure 61 mm[Hg] 12/12/2022 20:54 Most Recent 8462- 4 LOINC Systolic Blood Pressure 142 mm[Hg] 12/12/2022 14:28 Initial 8480- 6 LOINC Diastolic Blood Pressure 70 mm[Hg] 12/12/2022 14:28 Initial 8462- 4 LOINC Body Surface Area 2.73 m2 12/12/2022 14:28 Initial 3140- 1 LOINC Height 180.340 0 cm 71.00 in 12/12/2022 14:28 Initial 8302- 2 LOINC O2 Saturation 98 % 2022 14:28 Initial 17097 -5 LOINC Pulse 73.0 /min 12/12/2022 20:54 Most Recent 8867- 4 LOINC Pulse 82.0 /min 12/12/2022 14:28 Initial 8867- 4 LOINC Respiration 16 /min 12/12/19 14:28 Initial 9279- 1 LOINC Temperature 36.5 Teodora 97.7 F 12/12/19 14:28 Initial 8310- 5 LOINC Weight 148.32 kg 327.00 lbs 12/12/2022 14:28 Initial 98441 -7 [facility] Medications Medication Start Date End Date Route Frequency Dose Code Code System Medication Instructions Home Meds Ibuprofen 200MG Oral Tablet 07/17/2022 09/01/2023 ORAL EVERY 6 HOURS 3 TABLET 926249 RxNorm TAKE 3 TABLET ORAL EVERY 6 HOURS FOR 24 HOURS THEN NEEDED FOR PAIN Benadryl Allergy 25MG Oral Tablet 09/11/2022 09/01/2023 ORAL EVERY 6 HOURS 2 TABLET 5852413 RxNorm TAKE 2 TABLET ORAL EVERY 6 HOURS Zofran 4MG Oral Tablet 10/07/2022 10/04/2023 ORAL NEEDED THREE TIMES A DAY 1 TABLET 834370 RxNorm TAKE 1 TABLET ORAL NEEDED THREE TIMES A DAY oxyCODONE HCl 5MG Oral Tablet 12/14/2022 09/01/2023 ORAL NEEDED EVERY 3 HOURS 5 MILLIGRAMS 4744441 RxNorm TAKE 5 MILLIGRAM S ORAL NEEDED EVERY 3 HOURS Atorvastatin Calcium 40MG Oral Tablet 12/14/2022 Unknown ORAL DAILY 40 MILLIGRAMS 382837 RxNorm TAKE 40 MILLIGRAM S ORAL DAILY Levothyroxine 200MCG Oral Tablet 12/14/2022 09/01/2023 ORAL DAILY 200 MCG 560457 RxNorm TAKE 200 MCG ORAL DAILY ProAir HFA 0.09MG/1Actua tion Inhalation Suspension 12/14/2022 06/02/2023 INHALATI ON NEEDED 1 unit(s) 712330 RxNorm 1 EACH INHALATIO N NEEDED Trulicity 0.75MG/0.5ML Subcutaneous Solution 12/14/2022 09/01/2023 SUBCUTAN EOUS MONDAYS 1.5 MILLIGRAMS 1828193 RxNorm INJECT 1.5 MILLIGRAM S SUBCUTANE OUS MONDAYS metFORMIN HCl 500MG Oral Tablet 12/14/2022 06/01/2023 ORAL TWICE A DAY 1000 MILLIGRAMS 589467 RxNorm TAKE 1000 MILLIGRAM S ORAL TWICE A DAY predniSONE 20MG Oral Tablet 03/06/2023 06/02/2023 ORAL DAILY 1 TABLET 969790 RxNorm TAKE 1 TABLET ORAL DAILY Zithromax 250MG Oral Tablet 03/06/2023 06/02/2023 ORAL DAILY 1 TABLET 718280 RxNorm TAKE 2 TABLETS ORAL DAILY ON DAY 1 AND THEN1 TABLET DAILY ON DAYS 2-5 Albuterol Sulfate 0.09MG/1Actua tion Inhalation Suspension 06/02/2023 Unknown INHALATI ON NEEDED EVERY 4 HOURS 2 PUFF 3473107 RxNorm 2 PUFF INHALATIO N EVERY 4 HOURS FOR 24 HOURS THEN NEEDED FOR Cough/Sandra rtness of breath Zithromax 250MG Oral Tablet 06/02/2023 06/10/2023 ORAL DAILY 1 TABLET 729144 RxNorm TAKE 1 TABLET ORAL DAILY predniSONE 20MG Oral Tablet 06/02/2023 06/10/2023 ORAL DAILY 3 TABLET 541579 RxNorm TAKE 3 TABLET ORAL DAILY Mucinex D 600MG-60mg Oral Tablet, Extended Release 06/02/2023 09/01/2023 ORAL TWICE A DAY 1 TABLET 5564901 RxNorm TAKE 1 TABLET ORAL TWICE A DAY FOR 3-5 DAYS Zithromax 250MG Oral Tablet 06/10/2023 09/01/2023 ORAL DAILY 1 TABLET 822453 RxNorm TAKE 2 TABLETS ORAL DAILY ON DAY 1 AND THEN1 TABLET DAILY ON DAYS 2-5 Ibuprofen 800MG Oral Tablet 08/28/2023 10/04/2023 ORAL EVERY 8 HOURS 1 TABLET 573448 RxNorm TAKE 1 TABLET ORAL EVERY 8 HOURS Penicillin VK 500MG Oral Tablet 08/28/2023 09/01/2023 ORAL THREE TIMES A DAY 1 TABLET 364149 RxNorm TAKE 1 TABLET ORAL THREE TIMES A DAY Tylenol 325MG Oral Tablet 09/01/2023 10/04/2023 ORAL NEEDED EVERY 6 HOURS 2 TABLET 777470 RxNorm TAKE 2 TABLET ORAL NEEDED EVERY 6 HOURS Anbesol Maximum Strength 20% Oromucosal Gel/Jelly 09/01/2023 10/04/2023 OROMUCOS AL THREE TIMES A DAY 1 RxNorm 1 OROMUCOSA L THREE TIMES A DAY Augmentin 875MG-125MG Oral Tablet 09/04/2023 10/04/2023 ORAL TWICE A DAY 1 TABLET 265707 RxNorm TAKE 1 TABLET ORAL TWICE A DAY Meclizine HCl 25MG Oral Tablet 10/04/2023 01/21/2024 ORAL NEEDED EVERY 8 HOURS 1 TABLET 383080 RxNorm TAKE 1 TABLET ORAL NEEDED EVERY 8 HOURS. No alcohol, recreatio nal drugs, driving or operating machinery while taking this. Augmentin 875MG-125MG Oral Tablet 10/26/2023 11/06/2023 ORAL TWICE A DAY 1 TABLET 184326 RxNorm TAKE 1 TABLET ORAL TWICE A DAY Augmentin 875MG-125MG Oral Tablet 11/06/2023 12/11/2023 ORAL TWICE A DAY 1 TABLET 041730 RxNorm TAKE 1 TABLET ORAL TWICE A DAY Tessalon Perles 100MG Oral Capsule, Liquid Filled 11/06/2023 12/11/2023 ORAL NEEDED EVERY 6 HOURS 1 CAPSULE 431317 RxNorm TAKE 1 CAPSULE ORAL NEEDED EVERY 6 HOURS Zithromax 250MG Oral Tablet 02/16/2024 03/29/2024 ORAL DAILY 1 TABLET 697777 RxNorm TAKE 2 TABLETS ORAL DAILY ON DAY 1 AND THEN1 TABLET DAILY ON DAYS 2-5 Keflex 500MG Oral Capsule 03/29/2024 04/06/2024 ORAL THREE TIMES A DAY 1 CAPSULE 654856 RxNorm TAKE 1 CAPSULE ORAL THREE TIMES A DAY Keflex 500MG Oral Capsule 04/06/2024 Unknown ORAL THREE TIMES A DAY 1 CAPSULE 443429 RxNorm TAKE 1 CAPSULE ORAL THREE TIMES [...] Code Code System TYPE 2 DIABETES active 39067746 SNOM ED-CT HYPOTHYROIDISM active 71475590 SNOME D-CT DENTAL CARIES active 59327592 SNOMED -CT ACUTE BRONCHITIS active 83886711 SNO MED-CT SUPERFICIAL FOREIGN BODY, RIGHT FOOT, INITIAL ENCOUNTER active 324406153 SNOMED-CT ASTHMA 03/03/2022 resolved 048766056 SNOMED-CT ANXIETY 01/19/2022 resolved 29175254 SNOMED-CT HLD 09/10/2022 resolved 11336195 SNOMED-CT Allergies and Adverse Reactions Allergy Substance Reaction Severity Start Date Concern Status Code Code System SULFA (sulfonamide) Anaphylaxis (SNOMED-CT: 11642632) Active 93746513 SNOMED-CT MORPHINE Hives (SNOMED-CT: 550442140), Itching (SNOMED-CT: 277822103) Moderate Active 7052 RxNorm BEE POLLEN Anaphylaxis (SNOMED-CT: 78225426) Active 267469 RxNorm DILAUDID Hives (SNOMED-CT: 652209367), Itching (SNOMED-CT: 467321868) Moderate Active 497677 RxNorm Plan of Treatment Symptoms 08/09/2021 US PELVIC / TV 11/06/2023 CT CHEST W/O CONTRAST 03/13/2023 CT CHEST W/O CONTRAST 03/04/2023 SYMPTOMS 10/19/2022 LAB DRAW 15MIN 08/02/2022 LAB DRAW 15MIN 05/25/2022 SYMPTOMS 04/28/2022 EXPOSURE 12/07/2021 SYMPTOMS 11/22/2021 SYMPTOMS 2021 Encounters Encounter Diagnosis Start Date Code Code Sys tem Unspecified acute appendicitis 12/12/2022 SNOMED-CT Personal Care Team Section Performer Name Performer Role Active Date Inactive Da te Consultation Notes [facility] 12/12/2022 19:57 Consult Note 12/12/2022 19:43 Patient Name Age Sex Hospital Days Room and Bed KESHA LAGOS 1980 42 years Female ER 8B Date/Time BP (mm/Hg) Heart Rate Resp Temp (C) SPO2% O2 Device 12/12/2022 14:28 142/70 82 16 36.5 98 % Room Air 21% Practitioner Requesting Consult Rocky Reason for Consult Possible appendicits PMH / PSH Lap valencia '17 DED [facility] Partial Right Nephrectomy 08/16 [facility] LEEP C-sec Obesity (BMI high 40s) RCC Substance abuse DM II Hypothyroid Sleep Apnea Anxiety PTSD Labs last 24 hours Test Results Units Reference Range Collected COLLECTION MODE: CLEAN CATCH 12/12/2022 16:38 Nitrite. NEGATIVE negative 12/12/2022 16:38 Blood NEGATIVE negative 12/12/2022 16:38 Leukocytes. NEGATIVE negative 12/12/2022 16:38 MICROSCOPIC NOT INDICAT 12/12/2022 16:38 WBC 11.65 H th/cmm L=5.00 H=10.00 12/12/2022 15:14 HEMOGLOBIN 13 gm/dL L=12.0 H=16.0 12/12/2022 15:14 HEMATOCRIT 40 % L=37 H=47 12/12/2022 15:14 PLATELET COUNT 302 th/cmm L=150 H=450 12/12/2022 15:14 GLUCOSE 101 mg/dL L=70 H=116 12/12/2022 15:14 BUN 13 mg/dL L=6 H=25 12/12/2022 15:14 CREATININE 0.91 mg/dL L=0.51 H=0.95 12/12/2022 15:14 SODIUM SERUM 141 mmol/L L=136 H=145 12/12/2022 15:14 POTASSIUM SERUM 4.2 mmol/L L=3.4 H=5.2 12/12/2022 15:14 CHLORIDE SERUM 104 mmol/L L=96 H=110 12/12/2022 15:14 CARBON DIOXIDE (CO2) 31 mmol/L L=22 H=34 12/12/2022 15:14 ANION GAP 5.8 mmol/L 12/12/2022 15:14 CALCIUM SERUM 9.2 mg/dL L=8.2 H=10.2 12/12/2022 15:14 BILIRUBIN TOTAL 0.2 mg/dL L=0.0 H=1.3 12/12/2022 15:14 ALK. PHOS. 95 U/L L=46 H=116 12/12/2022 15:14 SGOT (AST) 17 U/L L=15 H=37 12/12/2022 15:14 SGPT (ALT) 19 U/L L=12 H=78 12/12/2022 15:14 TOTAL PROTEIN 7.4 gm/dL L=6.0 H=8.0 12/12/2022 15:14 ALBUMIN 3.2 L gm/dL L=3.4 H=5.0 12/12/2022 15:14 LIPASE. 26 U/L L=16 H=77 12/12/2022 15:14 TEST NEGATIVE 12/12/2022 15:14 Ordered Medications Ordered & Completed Meds Table Ordered Medication Start Date/Time Dosage Route Frequency Status SODIUM CHLORIDE 0.9% 1000ML 12/12/2022 14:58 INTRAVENOUS X1 completed ONDANSETRON INJ SDV: 4MG/2ML 12/12/2022 15:15 4 MG IV PUSH X1 completed CefTRIAXone IVPB: 1GM/50ML 12/12/2022 18:16 100 ml/hr IV PIGGYBACK X1 completed MetroNIDAZOLE IVPB PREMIX: 500MG/100ML 12/12/2022 18:16 100 ml/hr IV PIGGYBACK X1 completed NICOTINE INHALER CARTRIDGE: 10MG 12/12/2022 18:39 1 CARTRIDGE INHALATION X1 active LORazepam INJ SYRINGE: 2MG/ML 12/12/2022 18:40 0.5 MG IV PUSH X1 completed ACETAMINOPHEN INJ IVPB: 1000MG/100ML 12/12/2022 18:52 400 ml/hr IV PIGGYBACK X1 completed Imaging Surgical changes right kidney Enlarged liver Enlarged appendix, little to no stranding, no free fluid, no free air Subjective Gen abd pain for 3 days, some localization to RLQ Some N/V Nl BM No F/C Similar Sx over summer led to w/u that found right RCC Objective Looks fine, NAD at all Mild RLQ tenderness Impression & Recomendations The patient certainly could have mild appendicitis. Her history could certainly be interpreted as generalized to right lower quadrant pain. She does have mild leukocytosis. On the CAT scan her appendix is mildly enlarged. VRads Read the CT as having mild stranding however it looks less than mild to my eye. Certainly there is nothing like an abscess or phlegmon or perforation. So certainly this could represent mild appendicitis however its been going on for 3 days now and 1 really would expect the appendix to look worse if she was headed toward trouble with it. Beyond this the patient has a fairly disorganized life. Her only real concern is getting home to her kids, smoking, and having something to eat. Apparently her children are beginning the transition back to her permanent care. Given all of this, and governed mostly by the idea that if this is appendicitis it is quite mild appendicitis and that it really is the kind of appendicitis that 1 would expect to do well with oral antibiotics, I gave her 2 options which I thought were reasonable. 1 was to treat this as if it was appendicitis, to admit her on IV antibiotics, consult with our radiologist tomorrow, and if they are in agreement take her to the operating room for appendectomy tomorrow. The second choice was to go home on oral antibiotics and to return if it got worse. I estimated the chance of this getting better on oral antibiotics at least 75%. the patient is overwhelmingly in favor of the second choice. She received IV ceftriaxone and Flagyl here this evening. I have sent an eRX for Cipro and Flagyl to [facility] for her to chicken picker in the morning, the ED will give her a Flagyl pill as a dose to take later tonight. I have written a work note for her to be out of work for the next 4 days. We will call her tomorrow to make an appointment for a clinic appointment next week. Patient had all of her questions answered to her satisfaction.
--- OUTSIDE RECORDS SUMMARY | 2024-05-12 15:38 | XMS_ITS ---
Author Name Unknown Address [address] [place] [address] [phone] Phone Organization Unknown Address [address] [place] [address] [phone] Phone Care Team Providers Care Outbound Sales Executive Name Role Phone PHUONG Molina Attending Unavailable Social History Type Status Start Date End Date Code Code Syst em Smoking History Current every day smoker [id number] SNOMED CT Smoking History Former smoker 4082612 SNOMED CT Smoking History Current some day smoker 11/25/[id number] Sex Female Medications Medication Start Date End Date Route Frequency Dose Code Code System Medication Instructions Home Meds Ibuprofen 200MG Oral Tablet 07/17/2022 09/01/2023 ORAL EVERY 6 HOURS 3 TABLET 249475 RxNorm TAKE 3 TABLET ORAL EVERY 6 HOURS FOR 24 HOURS THEN NEEDED FOR PAIN Benadryl Allergy 25MG Oral Tablet 09/11/2022 09/01/2023 ORAL EVERY 6 HOURS 2 TABLET 7676770 RxNorm TAKE 2 TABLET ORAL EVERY 6 HOURS Zofran 4MG Oral Tablet 10/07/2022 10/04/2023 ORAL NEEDED THREE TIMES A DAY 1 TABLET 699425 RxNorm TAKE 1 TABLET ORAL NEEDED THREE TIMES A DAY oxyCODONE HCl 5MG Oral Tablet 12/14/2022 09/01/2023 ORAL NEEDED EVERY 3 HOURS 5 MILLIGRAMS 4791847 RxNorm TAKE 5 MILLIGRAM S ORAL NEEDED EVERY 3 HOURS Atorvastatin Calcium 40MG Oral Tablet 12/14/2022 Unknown ORAL DAILY 40 MILLIGRAMS 745956 RxNorm TAKE 40 MILLIGRAM S ORAL DAILY Levothyroxine 200MCG Oral Tablet 12/14/2022 09/01/2023 ORAL DAILY 200 MCG 100677 RxNorm TAKE 200 MCG ORAL DAILY ProAir HFA 0.09MG/1Actua tion Inhalation Suspension 12/14/2022 06/02/2023 INHALATI ON NEEDED 1 unit(s) 449101 RxNorm 1 EACH INHALATIO N NEEDED Trulicity 0.75MG/0.5ML Subcutaneous Solution 12/14/2022 09/01/2023 SUBCUTAN EOUS MONDAYS 1.5 MILLIGRAMS 7306476 RxNorm INJECT 1.5 MILLIGRAM S SUBCUTANE OUS MONDAYS metFORMIN HCl 500MG Oral Tablet 12/14/2022 06/01/2023 ORAL TWICE A DAY 1000 MILLIGRAMS 974877 RxNorm TAKE 1000 MILLIGRAM S ORAL TWICE A DAY predniSONE 20MG Oral Tablet 03/06/2023 06/02/2023 ORAL DAILY 1 TABLET 594093 RxNorm TAKE 1 TABLET ORAL DAILY Zithromax 250MG Oral Tablet 03/06/2023 06/02/2023 ORAL DAILY 1 TABLET 451652 RxNorm TAKE 2 TABLETS ORAL DAILY ON DAY 1 AND THEN1 TABLET DAILY ON DAYS 2-5 Albuterol Sulfate 0.09MG/1Actua tion Inhalation Suspension 06/02/2023 Unknown INHALATI ON NEEDED EVERY 4 HOURS 2 PUFF 5737941 RxNorm 2 PUFF INHALATIO N EVERY 4 HOURS FOR 24 HOURS THEN NEEDED FOR Cough/Sandra rtness of breath Zithromax 250MG Oral Tablet 06/02/2023 06/10/2023 ORAL DAILY 1 TABLET 819339 RxNorm TAKE 1 TABLET ORAL DAILY predniSONE 20MG Oral Tablet 06/02/2023 06/10/2023 ORAL DAILY 3 TABLET 853936 RxNorm TAKE 3 TABLET ORAL DAILY Mucinex D 600MG-60mg Oral Tablet, Extended Release 06/02/2023 09/01/2023 ORAL TWICE A DAY 1 TABLET 9117199 RxNorm TAKE 1 TABLET ORAL TWICE A DAY FOR 3-5 DAYS Zithromax 250MG Oral Tablet 06/10/2023 09/01/2023 ORAL DAILY 1 TABLET 976849 RxNorm TAKE 2 TABLETS ORAL DAILY ON DAY 1 AND THEN1 TABLET DAILY ON DAYS 2-5 Ibuprofen 800MG Oral Tablet 08/28/2023 10/04/2023 ORAL EVERY 8 HOURS 1 TABLET 853418 RxNorm TAKE 1 TABLET ORAL EVERY 8 HOURS Penicillin VK 500MG Oral Tablet 08/28/2023 09/01/2023 ORAL THREE TIMES A DAY 1 TABLET 197829 RxNorm TAKE 1 TABLET ORAL THREE TIMES A DAY Tylenol 325MG Oral Tablet 09/01/2023 10/04/2023 ORAL NEEDED EVERY 6 HOURS 2 TABLET 758450 RxNorm TAKE 2 TABLET ORAL NEEDED EVERY 6 HOURS Anbesol Maximum Strength 20% Oromucosal Gel/Jelly 09/01/2023 10/04/2023 OROMUCOS AL THREE TIMES A DAY 1 RxNorm 1 OROMUCOSA L THREE TIMES A DAY Augmentin 875MG-125MG Oral Tablet 09/04/2023 10/04/2023 ORAL TWICE A DAY 1 TABLET 876566 RxNorm TAKE 1 TABLET ORAL TWICE A DAY Meclizine HCl 25MG Oral Tablet 10/04/2023 01/21/2024 ORAL NEEDED EVERY 8 HOURS 1 TABLET 677413 RxNorm TAKE 1 TABLET ORAL NEEDED EVERY 8 HOURS. No alcohol, recreatio nal drugs, driving or operating machinery while taking this. Augmentin 875MG-125MG Oral Tablet 10/26/2023 11/06/2023 ORAL TWICE A DAY 1 TABLET 975935 RxNorm TAKE 1 TABLET ORAL TWICE A DAY Augmentin 875MG-125MG Oral Tablet 11/06/2023 12/11/2023 ORAL TWICE A DAY 1 TABLET 561434 RxNorm TAKE 1 TABLET ORAL TWICE A DAY Tessalon Perles 100MG Oral Capsule, Liquid Filled 11/06/2023 12/11/2023 ORAL NEEDED EVERY 6 HOURS 1 CAPSULE 622610 RxNorm TAKE 1 CAPSULE ORAL NEEDED EVERY 6 HOURS Zithromax 250MG Oral Tablet 02/16/2024 03/29/2024 ORAL DAILY 1 TABLET 414956 RxNorm TAKE 2 TABLETS ORAL DAILY ON DAY 1 AND THEN1 TABLET DAILY ON DAYS 2-5 Keflex 500MG Oral Capsule 03/29/2024 04/06/2024 ORAL THREE TIMES A DAY 1 CAPSULE 936608 RxNorm TAKE 1 CAPSULE ORAL THREE TIMES A DAY Keflex 500MG Oral Capsule 04/06/2024 Unknown ORAL THREE TIMES A DAY 1 CAPSULE 608615 RxNorm TAKE 1 CAPSULE ORAL THREE TIMES [...] Code Code System TYPE 2 DIABETES active 72286818 SNOM ED-CT HYPOTHYROIDISM active 74784679 SNOME D-CT DENTAL CARIES active 63680860 SNOMED -CT ACUTE BRONCHITIS active 20826299 SNO MED-CT SUPERFICIAL FOREIGN BODY, RIGHT FOOT, INITIAL ENCOUNTER active 898417420 SNOMED-CT ASTHMA 03/03/2022 resolved 503154650 SNOMED-CT ANXIETY 01/19/2022 resolved 04831487 SNOMED-CT HLD 09/10/2022 resolved 87304701 SNOMED-CT Allergies and Adverse Reactions Allergy Substance Reaction Severity Start Date Concern Status Code Code System SULFA (sulfonamide) Anaphylaxis (SNOMED-CT: 06548627) Active 21795778 SNOMED-CT MORPHINE Hives (SNOMED-CT: 569188932), Itching (SNOMED-CT: 450142586) Moderate Active 7052 RxNorm BEE POLLEN Anaphylaxis (SNOMED-CT: 68671074) Active 545332 RxNorm DILAUDID Hives (SNOMED-CT: 297292454), Itching (SNOMED-CT: 248356757) Moderate Active 836263 RxNorm Plan of Treatment Symptoms 08/09/2021 US PELVIC / TV 11/06/2023 CT CHEST W/O CONTRAST 03/13/2023 CT CHEST W/O CONTRAST 03/04/2023 SYMPTOMS 10/19/2022 LAB DRAW 15MIN 08/02/2022 LAB DRAW 15MIN 05/25/2022 SYMPTOMS 04/28/2022 EXPOSURE 12/07/2021 SYMPTOMS 11/22/2021 SYMPTOMS 2021 Encounters Encounter Diagnosis Start Date Code Code Sys tem Unspecified acute appendicitis 12/13/2022 SNOMED-CT Personal Care Team Section Performer Name Performer Role Active Date Inactive Da te
--- OUTSIDE RECORDS SUMMARY | 2024-05-12 15:38 | XMS_ITS ---
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 PA and Lateral views COMPARISON: Chest x-ray 08/02/2022 FINDINGS: Heart size is normal. The mediastinum is not widened. Lungs are clear. There are no infiltrates nor pleural effusions. IMPRESSION: No acute pulmonary findings. Report Digitally Signed by Damien Galindo on 01/09/2023 07:35 AM EST Social History Type Status Start Date End Date Code Code Syst em Smoking History Current every day smoker 467246905 SNOMED CT Smoking History Former smoker 5916947 SNOMED CT Smoking History Current some day smoker 11/25/[id number] Sex Female Vital Signs Vital Sign Value Unit Carson Value Carson Unit Date/Time Recent/Initial? Code Code System Body Mass Index 45.47 kg/m2 01/08/2023 23:37 Initial 85212 -5 [facility] Systolic Blood Pressure 136 mm[Hg] 01/08/2023 23:37 Initial 8480- 6 LOINC Diastolic Blood Pressure 85 mm[Hg] 01/08/2023 23:37 Initial 8462- 4 LOINC Body Surface Area 2.72 m2 01/08/2023 23:37 Initial 3140- 1 LOINC Height 180.340 0 cm 71.00 in 01/08/2023 23:37 Initial 8302- 2 LOINC O2 Saturation 99 % 2022 23:37 Initial 61679 -5 [facility] Pulse 91.0 /min 01/08/2023 23:37 Initial 8867- 4 LOINC Respiration 18 /min 01/08/20 23:37 Initial 9279- 1 LOINC Temperature 36.7 Teodora 98.1 F 01/08/20 23:37 Initial 8310- 5 LOINC Weight 147.87 kg 326.00 lbs 01/08/2023 23:37 Initial 73945 -7 [facility] Medications Medication Start Date End Date Route Frequency Dose Code Code System Medication Instructions Home Meds Ibuprofen 200MG Oral Tablet 07/17/2022 09/01/2023 ORAL EVERY 6 HOURS 3 TABLET 822361 RxNorm TAKE 3 TABLET ORAL EVERY 6 HOURS FOR 24 HOURS THEN NEEDED FOR PAIN Benadryl Allergy 25MG Oral Tablet 09/11/2022 09/01/2023 ORAL EVERY 6 HOURS 2 TABLET 9594540 RxNorm TAKE 2 TABLET ORAL EVERY 6 HOURS Zofran 4MG Oral Tablet 10/07/2022 10/04/2023 ORAL NEEDED THREE TIMES A DAY 1 TABLET 295603 RxNorm TAKE 1 TABLET ORAL NEEDED THREE TIMES A DAY oxyCODONE HCl 5MG Oral Tablet 12/14/2022 09/01/2023 ORAL NEEDED EVERY 3 HOURS 5 MILLIGRAMS 4143720 RxNorm TAKE 5 MILLIGRAM S ORAL NEEDED EVERY 3 HOURS Atorvastatin Calcium 40MG Oral Tablet 12/14/2022 Unknown ORAL DAILY 40 MILLIGRAMS 349217 RxNorm TAKE 40 MILLIGRAM S ORAL DAILY Levothyroxine 200MCG Oral Tablet 12/14/2022 09/01/2023 ORAL DAILY 200 MCG 357072 RxNorm TAKE 200 MCG ORAL DAILY ProAir HFA 0.09MG/1Actua tion Inhalation Suspension 12/14/2022 06/02/2023 INHALATI ON NEEDED 1 unit(s) 255408 RxNorm 1 EACH INHALATIO N NEEDED Trulicity 0.75MG/0.5ML Subcutaneous Solution 12/14/2022 09/01/2023 SUBCUTAN EOUS MONDAYS 1.5 MILLIGRAMS 1152245 RxNorm INJECT 1.5 MILLIGRAM S SUBCUTANE OUS MONDAYS metFORMIN HCl 500MG Oral Tablet 12/14/2022 06/01/2023 ORAL TWICE A DAY 1000 MILLIGRAMS 354601 RxNorm TAKE 1000 MILLIGRAM S ORAL TWICE A DAY predniSONE 20MG Oral Tablet 03/06/2023 06/02/2023 ORAL DAILY 1 TABLET 267905 RxNorm TAKE 1 TABLET ORAL DAILY Zithromax 250MG Oral Tablet 03/06/2023 06/02/2023 ORAL DAILY 1 TABLET 787848 RxNorm TAKE 2 TABLETS ORAL DAILY ON DAY 1 AND THEN1 TABLET DAILY ON DAYS 2-5 Albuterol Sulfate 0.09MG/1Actua tion Inhalation Suspension 06/02/2023 Unknown INHALATI ON NEEDED EVERY 4 HOURS 2 PUFF 9638914 RxNorm 2 PUFF INHALATIO N EVERY 4 HOURS FOR 24 HOURS THEN NEEDED FOR Cough/Sandra rtness of breath Zithromax 250MG Oral Tablet 06/02/2023 06/10/2023 ORAL DAILY 1 TABLET 465698 RxNorm TAKE 1 TABLET ORAL DAILY predniSONE 20MG Oral Tablet 06/02/2023 06/10/2023 ORAL DAILY 3 TABLET 792298 RxNorm TAKE 3 TABLET ORAL DAILY Mucinex D 600MG-60mg Oral Tablet, Extended Release 06/02/2023 09/01/2023 ORAL TWICE A DAY 1 TABLET 2584129 RxNorm TAKE 1 TABLET ORAL TWICE A DAY FOR 3-5 DAYS Zithromax 250MG Oral Tablet 06/10/2023 09/01/2023 ORAL DAILY 1 TABLET 665707 RxNorm TAKE 2 TABLETS ORAL DAILY ON DAY 1 AND THEN1 TABLET DAILY ON DAYS 2-5 Ibuprofen 800MG Oral Tablet 08/28/2023 10/04/2023 ORAL EVERY 8 HOURS 1 TABLET 441497 RxNorm TAKE 1 TABLET ORAL EVERY 8 HOURS Penicillin VK 500MG Oral Tablet 08/28/2023 09/01/2023 ORAL THREE TIMES A DAY 1 TABLET 775708 RxNorm TAKE 1 TABLET ORAL THREE TIMES A DAY Tylenol 325MG Oral Tablet 09/01/2023 10/04/2023 ORAL NEEDED EVERY 6 HOURS 2 TABLET 727307 RxNorm TAKE 2 TABLET ORAL NEEDED EVERY 6 HOURS Anbesol Maximum Strength 20% Oromucosal Gel/Jelly 09/01/2023 10/04/2023 OROMUCOS AL THREE TIMES A DAY 1 RxNorm 1 OROMUCOSA L THREE TIMES A DAY Augmentin 875MG-125MG Oral Tablet 09/04/2023 10/04/2023 ORAL TWICE A DAY 1 TABLET 929646 RxNorm TAKE 1 TABLET ORAL TWICE A DAY Meclizine HCl 25MG Oral Tablet 10/04/2023 01/21/2024 ORAL NEEDED EVERY 8 HOURS 1 TABLET 245541 RxNorm TAKE 1 TABLET ORAL NEEDED EVERY 8 HOURS. No alcohol, recreatio nal drugs, driving or operating machinery while taking this. Augmentin 875MG-125MG Oral Tablet 10/26/2023 11/06/2023 ORAL TWICE A DAY 1 TABLET 229852 RxNorm TAKE 1 TABLET ORAL TWICE A DAY Augmentin 875MG-125MG Oral Tablet 11/06/2023 12/11/2023 ORAL TWICE A DAY 1 TABLET 240158 RxNorm TAKE 1 TABLET ORAL TWICE A DAY Tessalon Perles 100MG Oral Capsule, Liquid Filled 11/06/2023 12/11/2023 ORAL NEEDED EVERY 6 HOURS 1 CAPSULE 424370 RxNorm TAKE 1 CAPSULE ORAL NEEDED EVERY 6 HOURS Zithromax 250MG Oral Tablet 02/16/2024 03/29/2024 ORAL DAILY 1 TABLET 676943 RxNorm TAKE 2 TABLETS ORAL DAILY ON DAY 1 AND THEN1 TABLET DAILY ON DAYS 2-5 Keflex 500MG Oral Capsule 03/29/2024 04/06/2024 ORAL THREE TIMES A DAY 1 CAPSULE 21230131 RxNorm TAKE 1 CAPSULE ORAL THREE TIMES A DAY Keflex 500MG Oral Capsule 04/06/2024 Unknown ORAL THREE TIMES A DAY 1 CAPSULE 21230131 RxNorm TAKE 1 CAPSULE ORAL THREE TIMES [...] Code Code System TYPE 2 DIABETES active 49864798 SNOM ED-CT HYPOTHYROIDISM active 58174279 SNOME D-CT DENTAL CARIES active 51882346 SNOMED -CT ACUTE BRONCHITIS active 59140594 SNO MED-CT SUPERFICIAL FOREIGN BODY, RIGHT FOOT, INITIAL ENCOUNTER active 951327069 SNOMED-CT ASTHMA 03/03/2022 resolved 200749470 SNOMED-CT ANXIETY 01/19/2022 resolved 34963431 SNOMED-CT HLD 09/10/2022 resolved 50747635 SNOMED-CT Allergies and Adverse Reactions Allergy Substance Reaction Severity Start Date Concern Status Code Code System SULFA (sulfonamide) Anaphylaxis (SNOMED-CT: 33895008) Active 87824870 SNOMED-CT MORPHINE Hives (SNOMED-CT: 880165442), Itching (SNOMED-CT: 765017247) Moderate Active 7052 RxNorm BEE POLLEN Anaphylaxis (SNOMED-CT: 70251222) Active 865582 RxNorm DILAUDID Hives (SNOMED-CT: 631108481), Itching (SNOMED-CT: 161599435) Moderate Active 425935 RxNorm Plan of Treatment Symptoms 08/09/2021 US PELVIC / TV 11/06/2023 CT CHEST W/O CONTRAST 03/13/2023 CT CHEST W/O CONTRAST 03/04/2023 SYMPTOMS 10/19/2022 LAB DRAW 15MIN 08/02/2022 LAB DRAW 15MIN 05/25/2022 SYMPTOMS 04/28/2022 EXPOSURE 12/07/2021 SYMPTOMS 11/22/2021 SYMPTOMS 2021 Encounters Encounter Diagnosis Start Date Code Code Sys tem Strain of muscle and tendon of front wall of thorax, initial encounter 01/08/2023 SNOMED-CT Personal Care Team Section Performer Name Performer Role Active Date Inactive Da te
--- OUTSIDE RECORDS SUMMARY | 2024-05-12 15:38 | XMS_ITS ---
Author Name Unknown Address [address] [place] [address] [phone] Phone Organization Unknown Address [address] [place] [address] [phone] Phone Care Team Providers Care Equipment Manager Name Role Phone RICKI Arnold Attending Unavailable CHAS Lopez Primary Unavailable Social History Type Status Start Date End Date Code Code Syst em Smoking History Current every day smoker 026311675 SNOMED CT Smoking History Former smoker 2759385 SNOMED CT Smoking History Current some day smoker 11/25/[address] Sex Female Medications Medication Start Date End Date Route Frequency Dose Code Code System Medication Instructions Home Meds Ibuprofen 200MG Oral Tablet 07/17/2022 09/01/2023 ORAL EVERY 6 HOURS 3 TABLET 700693 RxNorm TAKE 3 TABLET ORAL EVERY 6 HOURS FOR 24 HOURS THEN NEEDED FOR PAIN Benadryl Allergy 25MG Oral Tablet 09/11/2022 09/01/2023 ORAL EVERY 6 HOURS 2 TABLET 9260398 RxNorm TAKE 2 TABLET ORAL EVERY 6 HOURS Zofran 4MG Oral Tablet 10/07/2022 10/04/2023 ORAL NEEDED THREE TIMES A DAY 1 TABLET 753784 RxNorm TAKE 1 TABLET ORAL NEEDED THREE TIMES A DAY oxyCODONE HCl 5MG Oral Tablet 12/14/2022 09/01/2023 ORAL NEEDED EVERY 3 HOURS 5 MILLIGRAMS 7443110 RxNorm TAKE 5 MILLIGRAM S ORAL NEEDED EVERY 3 HOURS Atorvastatin Calcium 40MG Oral Tablet 12/14/2022 Unknown ORAL DAILY 40 MILLIGRAMS 971733 RxNorm TAKE 40 MILLIGRAM S ORAL DAILY Levothyroxine 200MCG Oral Tablet 12/14/2022 09/01/2023 ORAL DAILY 200 MCG 846491 RxNorm TAKE 200 MCG ORAL DAILY ProAir HFA 0.09MG/1Actua tion Inhalation Suspension 12/14/2022 06/02/2023 INHALATI ON NEEDED 1 unit(s) 333578 RxNorm 1 EACH INHALATIO N NEEDED Trulicity 0.75MG/0.5ML Subcutaneous Solution 12/14/2022 09/01/2023 SUBCUTAN EOUS MONDAYS 1.5 MILLIGRAMS 9129489 RxNorm INJECT 1.5 MILLIGRAM S SUBCUTANE OUS MONDAYS metFORMIN HCl 500MG Oral Tablet 12/14/2022 06/01/2023 ORAL TWICE A DAY 1000 MILLIGRAMS 328687 RxNorm TAKE 1000 MILLIGRAM S ORAL TWICE A DAY predniSONE 20MG Oral Tablet 03/06/2023 06/02/2023 ORAL DAILY 1 TABLET 856188 RxNorm TAKE 1 TABLET ORAL DAILY Zithromax 250MG Oral Tablet 03/06/2023 06/02/2023 ORAL DAILY 1 TABLET 773837 RxNorm TAKE 2 TABLETS ORAL DAILY ON DAY 1 AND THEN1 TABLET DAILY ON DAYS 2-5 Albuterol Sulfate 0.09MG/1Actua tion Inhalation Suspension 06/02/2023 Unknown INHALATI ON NEEDED EVERY 4 HOURS 2 PUFF 9041371 RxNorm 2 PUFF INHALATIO N EVERY 4 HOURS FOR 24 HOURS THEN NEEDED FOR Cough/Sandra rtness of breath Zithromax 250MG Oral Tablet 06/02/2023 06/10/2023 ORAL DAILY 1 TABLET 168066 RxNorm TAKE 1 TABLET ORAL DAILY predniSONE 20MG Oral Tablet 06/02/2023 06/10/2023 ORAL DAILY 3 TABLET 309655 RxNorm TAKE 3 TABLET ORAL DAILY Mucinex D 600MG-60mg Oral Tablet, Extended Release 06/02/2023 09/01/2023 ORAL TWICE A DAY 1 TABLET 5223355 RxNorm TAKE 1 TABLET ORAL TWICE A DAY FOR 3-5 DAYS Zithromax 250MG Oral Tablet 06/10/2023 09/01/2023 ORAL DAILY 1 TABLET 973210 RxNorm TAKE 2 TABLETS ORAL DAILY ON DAY 1 AND THEN1 TABLET DAILY ON DAYS 2-5 Ibuprofen 800MG Oral Tablet 08/28/2023 10/04/2023 ORAL EVERY 8 HOURS 1 TABLET 455833 RxNorm TAKE 1 TABLET ORAL EVERY 8 HOURS Penicillin VK 500MG Oral Tablet 08/28/2023 09/01/2023 ORAL THREE TIMES A DAY 1 TABLET 954349 RxNorm TAKE 1 TABLET ORAL THREE TIMES A DAY Tylenol 325MG Oral Tablet 09/01/2023 10/04/2023 ORAL NEEDED EVERY 6 HOURS 2 TABLET 889854 RxNorm TAKE 2 TABLET ORAL NEEDED EVERY 6 HOURS Anbesol Maximum Strength 20% Oromucosal Gel/Jelly 09/01/2023 10/04/2023 OROMUCOS AL THREE TIMES A DAY 1 RxNorm 1 OROMUCOSA L THREE TIMES A DAY Augmentin 875MG-125MG Oral Tablet 09/04/2023 10/04/2023 ORAL TWICE A DAY 1 TABLET 322807 RxNorm TAKE 1 TABLET ORAL TWICE A DAY Meclizine HCl 25MG Oral Tablet 10/04/2023 01/21/2024 ORAL NEEDED EVERY 8 HOURS 1 TABLET 062746 RxNorm TAKE 1 TABLET ORAL NEEDED EVERY 8 HOURS. No alcohol, recreatio nal drugs, driving or operating machinery while taking this. Augmentin 875MG-125MG Oral Tablet 10/26/2023 11/06/2023 ORAL TWICE A DAY 1 TABLET 144406 RxNorm TAKE 1 TABLET ORAL TWICE A DAY Augmentin 875MG-125MG Oral Tablet 11/06/2023 12/11/2023 ORAL TWICE A DAY 1 TABLET 677701 RxNorm TAKE 1 TABLET ORAL TWICE A DAY Tessalon Perles 100MG Oral Capsule, Liquid Filled 11/06/2023 12/11/2023 ORAL NEEDED EVERY 6 HOURS 1 CAPSULE 011888 RxNorm TAKE 1 CAPSULE ORAL NEEDED EVERY 6 HOURS Zithromax 250MG Oral Tablet 02/16/2024 03/29/2024 ORAL DAILY 1 TABLET 404126 RxNorm TAKE 2 TABLETS ORAL DAILY ON DAY 1 AND THEN1 TABLET DAILY ON DAYS 2-5 Keflex 500MG Oral Capsule 03/29/2024 04/06/2024 ORAL THREE TIMES A DAY 1 CAPSULE 836516 RxNorm TAKE 1 CAPSULE ORAL THREE TIMES A DAY Keflex 500MG Oral Capsule 04/06/2024 Unknown ORAL THREE TIMES A DAY 1 CAPSULE 961104 RxNorm TAKE 1 CAPSULE ORAL THREE TIMES [...] Code Code System TYPE 2 DIABETES active 88084736 SNOM ED-CT HYPOTHYROIDISM active 18747648 SNOME D-CT DENTAL CARIES active 92002305 SNOMED -CT ACUTE BRONCHITIS active 02730207 SNO MED-CT SUPERFICIAL FOREIGN BODY, RIGHT FOOT, INITIAL ENCOUNTER active 949112879 SNOMED-CT ASTHMA 03/03/2022 resolved 439168447 SNOMED-CT ANXIETY 01/19/2022 resolved 98514743 SNOMED-CT HLD 09/10/2022 resolved 82039513 SNOMED-CT Allergies and Adverse Reactions Allergy Substance Reaction Severity Start Date Concern Status Code Code System SULFA (sulfonamide) Anaphylaxis (SNOMED-CT: 29563025) Active 28103855 SNOMED-CT MORPHINE Hives (SNOMED-CT: 548314210), Itching (SNOMED-CT: 360266360) Moderate Active 7052 RxNorm BEE POLLEN Anaphylaxis (SNOMED-CT: 49917425) Active 271386 RxNorm DILAUDID Hives (SNOMED-CT: 797700560), Itching (SNOMED-CT: 060354494) Moderate Active 527172 RxNorm Plan of Treatment Symptoms 08/09/2021 US PELVIC / TV 11/06/2023 CT CHEST W/O CONTRAST 03/13/2023 CT CHEST W/O CONTRAST 03/04/2023 SYMPTOMS 10/19/2022 LAB DRAW 15MIN 08/02/2022 LAB DRAW 15MIN 05/25/2022 SYMPTOMS 04/28/2022 EXPOSURE 12/07/2021 SYMPTOMS 11/22/2021 SYMPTOMS 2021 Encounters Encounter Diagnosis Start Date Code Code Sys tem Canceled operative procedure 03/04/2023 82245391 SNOMED-CT Personal Care Team Section Performer Name Performer Role Active Date Inactive Da te
--- OUTSIDE RECORDS SUMMARY | 2024-05-12 15:38 | XMS_ITS ---
Author Name Unknown Address [address] [place] [address] [phone] Phone Organization Unknown Address [address] [place] [address] [phone] Phone Care Team Providers Care Bsw Name Role Phone ZACH YIP Registered Nurse Liv Martin Attending Unavailable CHAS Lopez Primary Unavailable UNLISTED PROVIDER - REQUESTED Xhandoff Un available Results URINALYSIS WITH REFLEX CULT IF POSITIVE* - Collect Date/Time: 12/11/2022 01:27 [facility] ID: [id number] [address] [place], [place], [address] LOINC: 19203-9 Test Value Unit Reference Range Code Code System Flag COLLECTION MODE: CLEAN CATCH 90703-2 LOINC Color YELLOW yellow 5778-6 LOINC Appearance HAZY clear 5767-9 LOINC Glucose urine NEGATIVE negative mg/dl 30825-8 LOINC Bilirubin NEGATIVE negative 5770-3 LOINC Ketones TRACE negative mg/dl 2514-8 LOINC A Spec gravity 1.020 1.003 - 1.030 5811-5 LOINC pH urine 8.0 5.0 - 7.0 2756-5 LOINC A Protein NEGATIVE negative mg/dl 47675-2 LOINC Urobilinogen 0.2 <or= 1 EU/dl 11716-0 LOINC Nitrite. NEGATIVE negative 5802-4 LOINC Blood NEGATIVE negative 5794-3 LOINC Leukocytes. NEGATIVE negative MICROSCOPIC NOT INDICAT Social History Type Status Start Date End Date Code Code Syst em Smoking History Current every day smoker 107589479 SNOMED CT Smoking History Former smoker 6056260 SNOMED CT Smoking History Current some day smoker 11/25/[address] Sex Female Vital Signs Vital Sign Value Unit Barlow Value Barlow Unit Date/Time Recent/Initial? Code Code System Body Mass Index 53.00 kg/m2 12/11/2022 00:00 Initial 67329 -5 LOINC Systolic Blood Pressure 120 mm[Hg] 12/11/2022 00:00 Initial 8480- 6 LOINC Diastolic Blood Pressure 63 mm[Hg] 12/11/2022 00:00 Initial 8462- 4 LOINC Body Surface Area 2.94 m2 12/11/2022 00:00 Initial 3140- 1 LOINC Height 180.340 0 cm 71.00 in 12/11/2022 00:00 Initial 8302- 2 [facility] O2 Saturation 97 % 2022 00:00 Initial 59704 -5 INC Pulse 87.0 /min 12/11/2022 00:00 Initial 8867- 4 LOINC Respiration 18 /min 12/11/19 00:00 Initial 9279- 1 LOINC Temperature 36.4 Teodora 97.5 F 12/11/19 00:00 Initial 8310- 5 LOINC Weight 172.37 kg 380.00 lbs 12/11/2022 00:00 Initial 37982 -[address] [facility] Medications Medication Start Date End Date Route Frequency Dose Code Code System Medication Instructions Home Meds Ibuprofen 200MG Oral Tablet 07/17/2022 09/01/2023 ORAL EVERY 6 HOURS 3 TABLET 832696 RxNorm TAKE 3 TABLET ORAL EVERY 6 HOURS FOR 24 HOURS THEN NEEDED FOR PAIN Benadryl Allergy 25MG Oral Tablet 09/11/2022 09/01/2023 ORAL EVERY 6 HOURS 2 TABLET 3658764 RxNorm TAKE 2 TABLET ORAL EVERY 6 HOURS Zofran 4MG Oral Tablet 10/07/2022 10/04/2023 ORAL NEEDED THREE TIMES A DAY 1 TABLET 246435 RxNorm TAKE 1 TABLET ORAL NEEDED THREE TIMES A DAY oxyCODONE HCl 5MG Oral Tablet 12/14/2022 09/01/2023 ORAL NEEDED EVERY 3 HOURS 5 MILLIGRAMS 3549413 RxNorm TAKE 5 MILLIGRAM S ORAL NEEDED EVERY 3 HOURS Atorvastatin Calcium 40MG Oral Tablet 12/14/2022 Unknown ORAL DAILY 40 MILLIGRAMS 230875 RxNorm TAKE 40 MILLIGRAM S ORAL DAILY Levothyroxine 200MCG Oral Tablet 12/14/2022 09/01/2023 ORAL DAILY 200 MCG 221740 RxNorm TAKE 200 MCG ORAL DAILY ProAir HFA 0.09MG/1Actua tion Inhalation Suspension 12/14/2022 06/02/2023 INHALATI ON NEEDED 1 unit(s) 740256 RxNorm 1 EACH INHALATIO N NEEDED Trulicity 0.75MG/0.5ML Subcutaneous Solution 12/14/2022 09/01/2023 SUBCUTAN EOUS MONDAYS 1.5 MILLIGRAMS 7457778 RxNorm INJECT 1.5 MILLIGRAM S SUBCUTANE OUS MONDAYS metFORMIN HCl 500MG Oral Tablet 12/14/2022 06/01/2023 ORAL TWICE A DAY 1000 MILLIGRAMS 167714 RxNorm TAKE 1000 MILLIGRAM S ORAL TWICE A DAY predniSONE 20MG Oral Tablet 03/06/2023 06/02/2023 ORAL DAILY 1 TABLET 744570 RxNorm TAKE 1 TABLET ORAL DAILY Zithromax 250MG Oral Tablet 03/06/2023 06/02/2023 ORAL DAILY 1 TABLET 451091 RxNorm TAKE 2 TABLETS ORAL DAILY ON DAY 1 AND THEN1 TABLET DAILY ON DAYS 2-5 Albuterol Sulfate 0.09MG/1Actua tion Inhalation Suspension 06/02/2023 Unknown INHALATI ON NEEDED EVERY 4 HOURS 2 PUFF 8667092 RxNorm 2 PUFF INHALATIO N EVERY 4 HOURS FOR 24 HOURS THEN NEEDED FOR Cough/Sandra rtness of breath Zithromax 250MG Oral Tablet 06/02/2023 06/10/2023 ORAL DAILY 1 TABLET 897191 RxNorm TAKE 1 TABLET ORAL DAILY predniSONE 20MG Oral Tablet 06/02/2023 06/10/2023 ORAL DAILY 3 TABLET 576856 RxNorm TAKE 3 TABLET ORAL DAILY Mucinex D 600MG-60mg Oral Tablet, Extended Release 06/02/2023 09/01/2023 ORAL TWICE A DAY 1 TABLET 0883448 RxNorm TAKE 1 TABLET ORAL TWICE A DAY FOR 3-5 DAYS Zithromax 250MG Oral Tablet 06/10/2023 09/01/2023 ORAL DAILY 1 TABLET 404645 RxNorm TAKE 2 TABLETS ORAL DAILY ON DAY 1 AND THEN1 TABLET DAILY ON DAYS 2-5 Ibuprofen 800MG Oral Tablet 08/28/2023 10/04/2023 ORAL EVERY 8 HOURS 1 TABLET 610928 RxNorm TAKE 1 TABLET ORAL EVERY 8 HOURS Penicillin VK 500MG Oral Tablet 08/28/2023 09/01/2023 ORAL THREE TIMES A DAY 1 TABLET 573545 RxNorm TAKE 1 TABLET ORAL THREE TIMES A DAY Tylenol 325MG Oral Tablet 09/01/2023 10/04/2023 ORAL NEEDED EVERY 6 HOURS 2 TABLET 674172 RxNorm TAKE 2 TABLET ORAL NEEDED EVERY 6 HOURS Anbesol Maximum Strength 20% Oromucosal Gel/Jelly 09/01/2023 10/04/2023 OROMUCOS AL THREE TIMES A DAY 1 RxNorm 1 OROMUCOSA L THREE TIMES A DAY Augmentin 875MG-125MG Oral Tablet 09/04/2023 10/04/2023 ORAL TWICE A DAY 1 TABLET 714266 RxNorm TAKE 1 TABLET ORAL TWICE A DAY Meclizine HCl 25MG Oral Tablet 10/04/2023 01/21/2024 ORAL NEEDED EVERY 8 HOURS 1 TABLET 872598 RxNorm TAKE 1 TABLET ORAL NEEDED EVERY 8 HOURS. No alcohol, recreatio nal drugs, driving or operating machinery while taking this. Augmentin 875MG-125MG Oral Tablet 10/26/2023 11/06/2023 ORAL TWICE A DAY 1 TABLET 886992 RxNorm TAKE 1 TABLET ORAL TWICE A DAY Augmentin 875MG-125MG Oral Tablet 11/06/2023 12/11/2023 ORAL TWICE A DAY 1 TABLET 151536 RxNorm TAKE 1 TABLET ORAL TWICE A DAY Tessalon Perles 100MG Oral Capsule, Liquid Filled 11/06/2023 12/11/2023 ORAL NEEDED EVERY 6 HOURS 1 CAPSULE 237019 RxNorm TAKE 1 CAPSULE ORAL NEEDED EVERY 6 HOURS Zithromax 250MG Oral Tablet 02/16/2024 03/29/2024 ORAL DAILY 1 TABLET 719981 RxNorm TAKE 2 TABLETS ORAL DAILY ON DAY 1 AND THEN1 TABLET DAILY ON DAYS 2-5 Keflex 500MG Oral Capsule 03/29/2024 04/06/2024 ORAL THREE TIMES A DAY 1 CAPSULE 021281 RxNorm TAKE 1 CAPSULE ORAL THREE TIMES A DAY Keflex 500MG Oral Capsule 04/06/2024 Unknown ORAL THREE TIMES A DAY 1 CAPSULE 070800 RxNorm TAKE 1 CAPSULE ORAL THREE TIMES [...] Code Code System TYPE 2 DIABETES active 72444191 SNOM ED-CT HYPOTHYROIDISM active 02678339 SNOME D-CT DENTAL CARIES active 96473179 SNOMED -CT ACUTE BRONCHITIS active 16744570 SNO MED-CT SUPERFICIAL FOREIGN BODY, RIGHT FOOT, INITIAL ENCOUNTER active 630520205 SNOMED-CT ASTHMA 03/03/2022 resolved 257219776 SNOMED-CT ANXIETY 01/19/2022 resolved 02406149 SNOMED-CT HLD 09/10/2022 resolved 51822458 SNOMED-CT Allergies and Adverse Reactions Allergy Substance Reaction Severity Start Date Concern Status Code Code System SULFA (sulfonamide) Anaphylaxis (SNOMED-CT: 88123641) Active 16965970 SNOMED-CT MORPHINE Hives (SNOMED-CT: 592240884), Itching (SNOMED-CT: 719703014) Moderate Active 7052 RxNorm BEE POLLEN Anaphylaxis (SNOMED-CT: 62236597) Active 896670 RxNorm DILAUDID Hives (SNOMED-CT: 933930347), Itching (SNOMED-CT: 223275956) Moderate Active 128531 RxNorm Plan of Treatment Symptoms 08/09/2021 US PELVIC / TV 11/06/2023 CT CHEST W/O CONTRAST 03/13/2023 CT CHEST W/O CONTRAST 03/04/2023 SYMPTOMS 10/19/2022 LAB DRAW 15MIN 08/02/2022 LAB DRAW 15MIN 05/25/2022 SYMPTOMS 04/28/2022 EXPOSURE 12/07/2021 SYMPTOMS 11/22/2021 SYMPTOMS 2021 Encounters Encounter Diagnosis Start Date Code Code Sys tem Left upper quadrant pain 12/10/2022 180831824 SNO MED-CT Personal Care Team Section Performer Name Performer Role Active Date Inactive Da campbell
== END 2024-05-12 15:29 | disposition home or self-care (01) ==
LOC: NCHCN 15:28
PROVIDERS: PCP Nurse Practitioner Family; Visit Provider Physician Assistant
DX: E03.9 Hypothyroidism, unspecified (principal); E11.9 Type 2 diabetes mellitus without complications; J02.9 Acute pharyngitis, unspecified
CPT/HCPCS: 83036; 84443; 87070

== ENCOUNTER 2024-07-02 18:42 | Outpatient (REF) | payer MEDICAID, SELFPAY ==
[2024-07-02 15:25] LABS: COMMENT (LAB VIEW ONLY) 243.07 mg/dL; Microalb ug/mg Crea 4.3 ug/mg Cr
--- OUTSIDE RECORDS SUMMARY | 2024-07-02 18:43 | XMS_ITS | Encounter Summary ---
Author Organization [facility] Address [facility] [place] [address] Care Team Providers Care Travel Pt Name Role Phone Unavailable Primary Care Provider Romi e Encounter Details Date Type Department Care Team (Late st Contact Info) Description 06/08/[address] [facility] in [facility] [address] [place] [address] Kacy Mendoza MD [address] [place] [address] Social History Tobacco Use Types Packs/Day Years Used Date Smoking Tobacco: Never Assessed Sex and Gender Information Value Date Recorded Sex Assigned at Not on file Gender Identity Not on file Sexual Orientation Not on file documented as of this encounter Plan of Treatment Not on file documented as of this encounter Procedures Procedure Name Priority Date/Time Associated Diagnosis Comments XR ANKLE MIN 3 VIEWS RIGHT Routine 06/08/2024 4:40 PM EDT documented in this encounter Results * XR Ankle Min 3 views Right (Generic) (06/08/2024 4:40 PM EDT) PT CLASS O RAD ADMITDTTM [id number] RAD PT RAD INFO [id number]^KENNED Y^KACY^E RAD EXAM DESC XRANKMVR^XR ANKLE RT 3V^RIS RAD WORKSTATION ID [id number] RAD Anatomical Region Laterality Modality Ankle Right Radiographic Etta ging Impressions 06/08/2024 5:07 PM EDT No acute fracture. Congruent ankle mortise. Thank you for letting us participate in the care of this patient. ??If you are a health care provider and have any questions regarding this report, please contact the number below. ??For patients who have questions please contact the health resident care manager that requested your imaging first. ? Narrative 06/08/2024 5:07 PM EDT EXAMINATION: XR ANKLE RT 3V CLINICAL HISTORY: Entered by ordering service: Reason for Extrem: ??RT ANKLE PAIN ??Add'l Info: TECHNIQUE: RIGHT ankle, 3 view[s] COMPARISON: none FINDINGS: Bones No acute fracture or periostitis. No acute fracture. Calcaneus-posterior and plantar calcaneal enthesophytes. Joints Ankle joint-normal spacing and alignment. Chopart joint-eccentric spacing Soft Tissue No soft tissue air or foreign body detected. Procedure Note Yana Cloud MD - 06/08/2024 EXAMINATION: XR ANKLE RT 3V CLINICAL HISTORY: Entered by ordering service: Reason for Extrem: RT ANKLE PAIN Add'l Info: TECHNIQUE: RIGHT ankle, 3 view[s] COMPARISON: none FINDINGS: Bones No acute fracture or periostitis. No acute fracture. Calcaneus-posterior and plantar calcaneal enthesophytes. Joints Ankle joint-normal spacing and alignment. Chopart joint-eccentric spacing Soft Tissue No soft tissue air or foreign body detected. IMPRESSION No acute fracture. Congruent ankle mortise. Thank you for letting us participate in the care of this patient. If youare a health care provider and have any questions regarding this report,please contact the number below. For patients who have questions please contactthe health resident care manager that requested your imaging first. Kacy Mendoza MD IMG DX ORDERABLES documented in this encounter Visit Diagnoses Not on filedocumented in this encounter
--- OUTSIDE RECORDS SUMMARY | 2024-07-02 18:43 | XMS_ITS | Clinical Summary ---
Author Organization [facility] Address [facility] [place] [address] Care Team Providers Care Telegraph Mechanic Name Role Phone Unavailable Primary Care Provider Unavailabl e Encounters Date Type Department Care Team Description 06/08/2024 Interpretation Only [facility] in [address] [address] Kacy Mendoza MD from Last 3 Months Social History Tobacco Use Types Packs/Day Years Used Date Smoking Tobacco: Never Assessed Sex and Gender Information Value Date Recorded Sex Assigned at Not on file Gender Identity Not on file Sexual Orientation Not on file Plan of Treatment Health Maintenance Due Date Last Done Comments HIV screen 1999 Hepatitis C Screening 1999 Hepatitis B vaccine (0-59 yrs) (1) 2000 Tdap adult 2000 Tetanus vaccine 2000 HPV test 2011 PAP Smear 2011 Breast Cancer Share Decision Needed 2021 Breast Cancer screening 2021 Covid-19 Vaccine ( season) 2023 Influenza (Flu) vaccine (1 o f 1 - Influenza standard series) 07/26/2024 Procedures Procedure Name Priority Date/Time Associated Diagnosis Comments XR ANKLE MIN 3 VIEWS RIGHT Routine 06/08/2024 4:40 PM EDT from Last 3 Months Results * XR Ankle Min 3 views Right (Generic) (06/08/2024 4:40 PM EDT) PT CLASS O DH RAD ADMITDTTM [id number] RAD PT RAD INFO [id number]^KENNED Y^KACY^E RAD EXAM DESC XRANKMVR^XR ANKLE RT 3V^RIS [facility] WORKSTATION ID [id number] [facility] Anatomical Region Laterality Modality Ankle Right Radiographic Etta ging Impressions 06/08/2024 5:07 PM EDT No acute fracture. Congruent ankle mortise. Thank you for letting us participate in the care of this patient. ??If you are a health care provider and have any questions regarding this report, please contact the number below. ??For patients who have questions please contact the health anesthesiologist and critical care that requested your imaging first. ? Electronically signed by: Yana Cloud MD, [facility] ([phone]), at 06/08/2024 5:07 PM Narrative 06/08/2024 5:07 PM EDT EXAMINATION: XR [...] patients who have questions please contactthe health anesthesiologist and critical care that requested your imaging first. Electronically signed by: Yana Cloud MD, [facility]([phone]), at 06/08/2024 5:07 PM Kacy Mendoza MD IMG DX ORDERABLES from Last 3 Months
--- OUTSIDE RECORDS SUMMARY | 2024-07-02 18:44 | XMS_ITS ---
Author Organization Unknown Address [address] [place] [address] [phone] Phone Care Team Providers Care Locomotive Inspector Name Role Phone PHUONG Molina Attending Unavailable [facility] - Brijesh ect Date/Time: 12/07/2021 11:11 [facility] ID: [id number] [address] [place] [address], [phone] LOINC: 43532-4 Test Value Unit Reference Range Code Code System Flag Tier- EXPOSURE SARS COV2 RNA: NEGATIVE REFERENCE RANGE: NEGAT 18900-3 L OINC Social History Type Status Start Date End Date Code Code Syst em Smoking History Current every day smoker 352257659 SNOMED CT Smoking History Former smoker 2129891 SNOMED CT Smoking History Current some day smoker 11/25/[address] Sex Female Medications Medication Start [...] 10/07/2022 ORAL TWICE A DAY 1 TABLET 841 580 RxNorm TAKE 1 TABLET ORAL TWICE [...] Suspension 12/14/2022 06/02/2023 INHALATION NEEDED 1 unit(s) 749 752 RxNorm 1 EACH INHALATION NEEDED Trulicity [...] ORAL NEEDED EVERY 8 HOURS 1 TABLET 994 666 RxNorm TAKE 1 TABLET ORAL NEEDED [...] A DAY Keflex 500MG Oral Capsule 04/06/2024 06/03/2024 ORAL THREE TIMES A DAY 1 CAPSULE [...] Code Code System TYPE 2 DIABETES active 20264711 SNOM ED-CT HYPOTHYROIDISM active 76643827 SNOME D-CT DENTAL CARIES active 70017370 SNOMED -CT ACUTE BRONCHITIS active 55958762 SNO MED-CT SUPERFICIAL FOREIGN BODY, RIGHT FOOT, INITIAL ENCOUNTER active 420039696 SNOMED-CT ASTHMA 03/03/2022 resolved 592552053 SNOMED-CT ANXIETY 01/19/2022 resolved 00636735 SNOMED-CT HLD 09/10/2022 resolved 76386584 SNOMED-CT Allergies and Adverse Reactions Allergy Substance Reaction Severity Start Date Concern Status Code Code System SULFA (sulfonamide) Anaphylaxis (SNOMED-CT: 85357143) Active 36717285 SNOMED-CT MORPHINE Hives (SNOMED-CT: 867067349), Itching (SNOMED-CT: 094476007) Moderate Active 7052 RxNorm BEE POLLEN Anaphylaxis (SNOMED-CT: 54323353) Active 515122 RxNorm DILAUDID Hives (SNOMED-CT: 767158028), Itching (SNOMED-CT: 493340059) Moderate Active 204199 RxNorm Plan of Treatment Symptoms 08/09/2021 LAB DRAW 15MIN 05/30/2024 US PELVIC / TV 11/06/2023 CT CHEST W/O CONTRAST 03/13/2023 CT CHEST W/O CONTRAST 03/04/2023 SYMPTOMS 10/19/2022 LAB DRAW 15MIN 08/02/2022 LAB DRAW 15MIN 05/25/2022 SYMPTOMS 04/28/2022 EXPOSURE 12/07/2021 SYMPTOMS 11/22/2021 SYMPTOMS 2021 Encounters Encounter Diagnosis Start Date Code Code Sys tem Exposure to SARS-CoV-2 12/07/2021 279024657 SNOME D-CT Personal Care Team Section Performer Name Performer Role Active Date Inactive Da te
--- OUTSIDE RECORDS SUMMARY | 2024-07-02 18:44 | XMS_ITS ---
Author Organization Unknown Address [address] [place] [address] [phone] Phone Care Team Providers Care Bioinformatics Associate Name Role Phone CHRIS JOSEPH Registered Nurse Unavailable DUC Arrington Attending Unavailable CHAS Lopez Primary Unavailable UNLISTED PROVIDER - REQUESTED Xhandoff Un available Results TROPONIN HIGH SENSITIVITY* - Collect Date/Time: 01/20/2022 00:35 [facility] ID: [id number] [address] [place] [address], 61 LOINC: 80710-2 Test Value Unit Reference Range Code Code System Flag TROPONIN HS 4.6 pg/mL L=0.0 H=60.4 Specimen seq. 1 hr TROPONIN HIGH SENSITIVITY* - Collect Date/Time: 01/19/2022 23:16 [facility] ID: [id number] [address] [place] [address], [address] LOINC: 35337-6 Test Value Unit Reference Range Code Code System Flag TROPONIN HS 4.1 pg/mL L=0.0 H=60.4 Specimen seq. Random CBC W/ DIFFERENTIAL* - Colle ct Date/Time: 01/19/2022 23:16 [facility] ID: [id number] [address] [place] [address], 61 LOINC: 62222-0 Test Value Unit Reference Range Code Code System Flag WBC 13.14 th/cmm L=5.00 H=10.00 6690-2 LOINC H NEUT % 65.7 % L=40.0 H=80.0 LYMPH % 28.5 % L=10.0 H=50.0 MONO % 3.3 % L=2.0 H=12.0 79499-7 LOINC EOS % 2.0 % L=0.0 H=8.0 BASO % 0.3 % L=0.0 H=3.0 IG % 0.2 % L=0.0 H=1.1 2514-8 LOINC NRBC % 0.0 % L=0.0 H=0.0 49177-0 LOINC NEUT abs count 8.6 th/cmm L=1.6 H=8.4 751-8 LOINC H LYMPH abs count 3.7 th/cmm L=1.5 H=4.0 731-0 LOINC MONO abs count 0.4 th/cmm L=0.2 H=1.0 742-7 LOINC EOS abs count 0.3 th/cmm L=0.0 H=0.5 711-2 LOINC BASO abs count 0.0 th/cmm L=0.0 H=0.2 704-7 LOINC IG abs count 0.0 th/cmm L=0.0 H=0.1 93814-2 LOINC NRBC abs count 0.0 mil/cmm L=0.0 H=0.0 77972-9 LOINC RBC 4.66 mil/cmm L=3.90 H=5.40 789-8 LOINC HEMOGLOBIN 13.4 gm/dL L=12.0 H=16.0 718-7 LOINC HEMATOCRIT 41 % L=37 H=47 4544-3 LOINC MCV 88 fL L=82 H=92 787-2 LOINC MCH 28.8 pg L=27.0 H=31.0 785-6 LOINC MCHC 32.8 % L=32.0 H=36.0 786-4 LOINC RDW-SD 43.4 fL L=39.0 H=49.0 788-0 LOINC PLATELET COUNT 307 th/cmm L=150 H=450 777-3 LOINC BASIC METABOLIC PANEL (BMP) - Collect Date/Time: 01/19/2022 23:16 [facility] ID: [id number] [address], [place], [address] LOINC: 38397-1 Test Value Unit Reference Range Code Code System Flag GLUCOSE 308 mg/dL L=70 H=116 2345-7 LOINC H BUN 11 mg/dL L=6 H=25 3094-0 LOINC CREATININE 0.86 mg/dL L=0.51 H=0.95 2160-0 LOINC SODIUM SERUM 139 mmol/L L=136 H=145 2951-2 LOINC POTASSIUM SERUM 4.7 mmol/L L=3.4 H=5.2 2823-3 LOINC CHLORIDE SERUM 101 mmol/L L=96 H=110 2075-0 LOINC CARBON DIOXIDE (CO2) 32 mmol/L L=22 H=34 2028-9 LOINC ANION GAP 5.9 mmol/L 15569-3 LOINC CALCIUM SERUM 9.3 mg/dL L=8.2 H=10.2 41235-0 LOINC AGE 41 years eGFR (non-Afr.Amer.) 73 mL/min 27686-7 LOINC eGFR (Afr-Thai) 88 mL/min 62462-0 LOINC GLUCOSE FINGER/HEEL CAPILLAR Y - Collect Date/Time: 01/19/2022 23:03 [facility] ID: [id number] [address], [place], [id number] LOINC: 75202-8 Test Value Unit Reference Range Code Code System Flag GLUCOSE CAP 235 mg/dL L=70 H=116 H XR CHEST 2V PA AND LATERAL - Completed: 01/20/2022 00:08 LOINC: PA & LAT. CHEST: Comparison is 03/28/21. The heart is normal in size. The lungs are clear. The mediastinal structures and pleura appear intact. CONCLUSION:Normal chest. Dictated by: NADINE PUENTE MD Transcribed by: DELMI 01/20/2215:06 D Thursday, January 20, 2022 9:27:24 AM [id number] Electronically Reviewed and Signed By: STANISLAV PUENTE MD 01/22/22 15:30 Copy for: [facility] HEALTH INFORMATION MGMT DISCHARGED Social History Type Status Start Date End Date Code Code Syst em Smoking History Current every day smoker 126902165 SNOMED CT Smoking History Former smoker 3384613 SNOMED CT Smoking History Current some day smoker 11/25/[address] Sex Female Vital Signs Vital Sign Value Unit [place] Value [place] Unit Date/Time Recent/Initial? Code Code System Body Mass Index 68.94 kg/m2 01/19/2022 23:14 Initial 09192 -5 LOINC Systolic Blood Pressure 129 mm[Hg] 01/20/2022 01:40 Most Recent 8480- 6 LOINC Diastolic Blood Pressure 75 mm[Hg] 01/20/2022 01:40 Most Recent 8462- 4 LOINC Systolic Blood Pressure 136 mm[Hg] 01/19/2022 23:14 Initial 8480- 6 LOINC Diastolic Blood Pressure 87 mm[Hg] 01/19/2022 23:14 Initial 8462- 4 INC Body Surface Area 2.60 m2 01/19/2022 23:14 Initial 3140- 1 INC Height 152.400 0 cm 60.00 in 01/19/2022 23:14 Initial 8302- 2 INC O2 Saturation 100 % 2021 01:40 Most Recent 53401 -5 INC O2 Saturation 100 % 2021 23:14 Initial 95357 -5 INC Pulse 87.0 /min 01/20/2022 01:40 Most Recent 8867- 4 INC Pulse 87.0 /min 01/19/2022 23:14 Initial 8867- 4 INC Respiration 16 /min 01/20/20 01:40 Most Recent 9279- 1 [facility] Respiration 23 /min 01/19/20 22 23:30 Initial 9279- 1 [facility] Temperature 36.8 Teodora 98.2 F 01/19/20 23:14 Initial 8310- 5 [facility] Weight 160.12 kg 353.00 lbs 01/19/2022 23:14 Initial 59442 -7 [facility] Medications Medication Start Date End Date Route Frequency Dose Code Code System Medication Instructions Home Meds Proventil HFA 0.09MG/1Actuation Inhalation Suspension 12/27/2017 01/19/2022 INHALATION NEEDED, EVERY 4 HOURS 2 PUFF 631883 RxNorm 2 PUFF INHALATION NEEDED, EVERY 4 HOURS FLOVENT HFA 0.11MG/1ACTUATION INHAL 04/14/2019 01/19/2022 INHALATION TWICE A DAY 1 PUFF RxNorm 1 PUFF INHALATION TWICE A DAY Penicillin VK 500MG Oral Tablet 01/16/2022 05/02/2022 ORAL TWICE A DAY 1 TABLE T 645088 RxNorm TAKE 1 TABLET ORAL TWICE A DAY Tessalon Perles 100MG Oral Capsule, Liquid Filled 05/02/2022 07/08/2022 ORAL [facility]ED EVERY 6 HOURS [facility] 744251 RxNorm TAKE 1 CAPSULE ORAL NEEDED EVERY 6 HOURS predniSONE 20MG Oral Tablet 05/02/2022 07/08/2022 ORAL DAILY 2 TABLE T 184800 RxNorm TAKE 2 TABLET ORAL DAILY Penicillin VK 500MG Oral Tablet 07/08/2022 07/17/2022 ORAL FOUR TIMES A DAY 1 TABLE T 149619 RxNorm TAKE 1 TABLET ORAL FOUR TIMES A DAY Ondansetron 4MG Oral Tablet, Disintegrating 07/17/2022 10/07/2022 ORAL NEEDED EVERY 6 HOURS 1 TABLE T 816766 RxNorm TAKE 1 TABLET ORAL NEEDED EVERY 6 HOURS FOR Nausea/Vomi ting HYDROcodone bitartrate-acetami nophen 5MG-325MG Oral Tablet 07/17/2022 10/07/2022 ORAL NEEDED EVERY 4 HOURS 1 TABLE T 945487 RxNorm TAKE 1 TABLET ORAL NEEDED EVERY 4 HOURS FOR Pain Ibuprofen 200MG Oral Tablet 07/17/2022 09/01/2023 ORAL EVERY 6 HOURS 3 TABLE T 769166 RxNorm TAKE 3 TABLET ORAL EVERY 6 HOURS FOR 24 HOURS THEN NEEDED FOR PAIN Chlorhexidine Gluconate 0.12% Oral Liquid 07/17/2022 10/07/2022 ORAL THREE TIMES A DAY 5 mL RxNorm TAKE 5 mL ORAL SWISH AND SPIT THREE TIMES A DAY Bactrim DS 800MG-160MG Oral Tablet 09/04/2022 10/07/2022 ORAL TWICE A DAY 1 TABLE T 002760 RxNorm TAKE 1 TABLET ORAL TWICE A DAY Benadryl Allergy 25MG Oral Tablet 09/11/2022 09/01/2023 ORAL EVERY 6 HOURS 2 TABLE T 6378016 RxNorm TAKE 2 TABLET ORAL EVERY 6 HOURS Zofran 4MG Oral Tablet 10/07/2022 10/04/2023 ORAL NEEDED THREE TIMES A DAY 1 TABLE T 580755 RxNorm TAKE 1 TABLET ORAL NEEDED THREE TIMES A DAY oxyCODONE HCl 5MG Oral Tablet 12/14/2022 09/01/2023 ORAL NEEDED EVERY 3 HOURS 5 ALEX GRAMS 3159407 RxNorm TAKE 5 MILLIGRAMS ORAL NEEDED EVERY 3 HOURS Atorvastatin Calcium 40MG Oral Tablet 12/14/2022 Unknown ORAL DAILY 40 ALEX GRAMS 130114 RxNorm TAKE 40 MILLIGRAMS ORAL DAILY Levothyroxine 200MCG Oral Tablet 12/14/2022 09/01/2023 ORAL DAILY 200 MCG 237814 RxNorm TAKE 200 MCG ORAL DAILY ProAir HFA 0.09MG/1Actuation Inhalation Suspension 12/14/2022 06/02/2023 INHALATION NEEDED 1 unit( s) 774668 RxNorm 1 EACH INHALATION NEEDED Trulicity 0.75MG/0.5ML Subcutaneous Solution 12/14/2022 09/01/2023 SUBCUTANEOU S MONDAYS 1.5 ALEX GRAMS 7018419 RxNorm INJECT 1.5 MILLIGRAMS SUBCUTANEOU S MONDAYS metFORMIN HCl 500MG Oral Tablet 12/14/2022 06/01/2023 ORAL TWICE A DAY 1000 ALEX GRAMS 532818 RxNorm TAKE 1000 MILLIGRAMS ORAL TWICE A DAY predniSONE 20MG Oral Tablet 03/06/2023 06/02/2023 ORAL DAILY 1 TABLE T 472461 RxNorm TAKE 1 TABLET ORAL DAILY Zithromax 250MG Oral Tablet 03/06/2023 06/02/2023 ORAL DAILY 1 TABLE T 133517 RxNorm TAKE 2 TABLETS ORAL DAILY ON DAY 1 AND THEN1 TABLET DAILY ON DAYS 2-5 Albuterol Sulfate 0.09MG/1Actuation Inhalation Suspension 06/02/2023 Unknown INHALATION NEEDED EVERY 4 HOURS 2 PUFF 9011208 RxNorm 2 PUFF INHALATION EVERY 4 HOURS FOR 24 HOURS THEN NEEDED FOR Cough/Short ness of breath Zithromax 250MG Oral Tablet 06/02/2023 06/10/2023 ORAL DAILY 1 TABLE T 917606 RxNorm TAKE 1 TABLET ORAL DAILY predniSONE 20MG Oral Tablet 06/02/2023 06/10/2023 ORAL DAILY 3 TABLE T 826082 RxNorm TAKE 3 TABLET ORAL DAILY Mucinex D 600MG-60mg Oral Tablet, Extended Release 06/02/2023 09/01/2023 ORAL TWICE A DAY 1 TABLE T 2103704 RxNorm TAKE 1 TABLET ORAL TWICE A DAY FOR 3-5 DAYS Zithromax 250MG Oral Tablet 06/10/2023 09/01/2023 ORAL DAILY 1 TABLE T 010962 RxNorm TAKE 2 TABLETS ORAL DAILY ON DAY 1 AND THEN1 TABLET DAILY ON DAYS 2-5 Ibuprofen 800MG Oral Tablet 08/28/2023 10/04/2023 ORAL EVERY 8 HOURS 1 TABLE T 060376 RxNorm TAKE 1 TABLET ORAL EVERY 8 HOURS Penicillin VK 500MG Oral Tablet 08/28/2023 09/01/2023 ORAL THREE TIMES A DAY 1 TABLE T 101969 RxNorm TAKE 1 TABLET ORAL THREE TIMES A DAY Tylenol 325MG Oral Tablet 09/01/2023 10/04/2023 ORAL NEEDED EVERY 6 HOURS 2 TABLE T 683875 RxNorm TAKE 2 TABLET ORAL NEEDED EVERY 6 HOURS Anbesol Maximum Strength 20% Oromucosal Gel/Jelly 09/01/2023 10/04/2023 OROMUCOSAL THREE TIMES A DAY 1 RxNorm 1 OROMUCOSAL THREE TIMES A DAY Augmentin 875MG-125MG Oral Tablet 09/04/2023 10/04/2023 ORAL TWICE A DAY 1 TABLE T 153839 RxNorm TAKE 1 TABLET ORAL TWICE A DAY Meclizine HCl 25MG Oral Tablet 10/04/2023 01/21/2024 ORAL NEEDED EVERY 8 HOURS 1 TABLE T 915498 RxNorm TAKE 1 TABLET ORAL NEEDED EVERY 8 HOURS. No alcohol, recreationa l drugs, driving or operating machinery while taking this. Augmentin 875MG-125MG Oral Tablet 10/26/2023 11/06/2023 ORAL TWICE A DAY 1 TABLE T 201491 RxNorm TAKE 1 TABLET ORAL TWICE A DAY Augmentin 875MG-125MG Oral Tablet 11/06/2023 12/11/2023 ORAL TWICE A DAY 1 TABLE T 009756 RxNorm TAKE 1 TABLET ORAL TWICE A DAY Tessalon Perles 100MG Oral Capsule, Liquid Filled 11/06/2023 12/11/2023 ORAL NEEDED EVERY 6 HOURS 1 MEL WOODY 878177 RxNorm TAKE 1 CAPSULE ORAL NEEDED EVERY 6 HOURS Zithromax 250MG Oral Tablet 02/16/2024 03/29/2024 ORAL DAILY 1 TABLE T 789871 RxNorm TAKE 2 TABLETS ORAL DAILY ON DAY 1 AND THEN1 TABLET DAILY ON DAYS 2-5 Keflex 500MG Oral Capsule 03/29/2024 04/06/2024 ORAL THREE TIMES A DAY 1 MARILUZU ANNALISE 081940 RxNorm TAKE 1 CAPSULE ORAL THREE TIMES A DAY Keflex 500MG Oral Capsule 04/06/2024 06/03/2024 ORAL THREE TIMES A DAY 1 [facility] 381424 RxNorm TAKE 1 CAPSULE ORAL THREE TIMES [...] Code Code System TYPE 2 DIABETES active 56733753 SNOM ED-CT HYPOTHYROIDISM active 82297590 SNOME D-CT DENTAL CARIES active 48829160 SNOMED -CT ACUTE BRONCHITIS active 92117518 SNO MED-CT SUPERFICIAL FOREIGN BODY, RIGHT FOOT, INITIAL ENCOUNTER active 708068609 SNOMED-CT ASTHMA 03/03/2022 resolved 933786963 SNOMED-CT ANXIETY 01/19/2022 resolved 47675845 SNOMED-CT HLD 09/10/2022 resolved 17021950 SNOMED-CT Allergies and Adverse Reactions Allergy Substance Reaction Severity Start Date Concern Status Code Code System SULFA (sulfonamide) Anaphylaxis (SNOMED-CT: 55604704) Active 81929652 SNOMED-CT MORPHINE Hives (SNOMED-CT: 735454193), Itching (SNOMED-CT: 837410026) Moderate Active 7052 RxNorm BEE POLLEN Anaphylaxis (SNOMED-CT: 51881280) Active 354214 RxNorm DILAUDID Hives (SNOMED-CT: 975015205), Itching (SNOMED-CT: 372546510) Moderate Active 682118 RxNorm Plan of Treatment Symptoms 08/09/2021 LAB DRAW 15MIN 05/30/2024 US PELVIC / TV 11/06/2023 CT CHEST W/O CONTRAST 03/13/2023 CT CHEST W/O CONTRAST 03/04/2023 SYMPTOMS 10/19/2022 LAB DRAW 15MIN 08/02/2022 LAB DRAW 15MIN 05/25/2022 SYMPTOMS 04/28/2022 EXPOSURE 12/07/2021 SYMPTOMS 11/22/2021 SYMPTOMS 2021 Encounters Encounter Diagnosis Start Date Code Code Sys tem Other chest pain 01/19/2022 SNOMED-CT Personal Care Team Section Performer Name Performer Role Active Date Inactive Da te
--- OUTSIDE RECORDS SUMMARY | 2024-07-02 18:44 | XMS_ITS ---
Author Organization Unknown Address [address] [place] [address] [phone] Phone Care Team Providers Care Mixing Tank Operator Name Role Phone PHUONG Molina Attending Unavailable Results KRISTY WENDY CASE* - Brijesh ect Date/Time: 11/22/2021 10:47 ID: [id number] [address] [place] [address], [phone] LOINC: 86739-9 Test Value Unit Reference Range Code Code System Flag Tier- SYMPTOMS SARS COV2 RNA: NEGATIVE REFERENCE RANGE: NEGAT 25458-2 L OINC Social History Type Status Start Date End Date Code Code Syst em Smoking History Current every day smoker 466142747 SNOMED CT Smoking History Former smoker 1284035 SNOMED CT Smoking History Current some day smoker 11/25/[address] Sex Female Medications Medication Start [...] 10/07/2022 ORAL TWICE A DAY 1 TABLET 840 580 RxNorm TAKE 1 TABLET ORAL TWICE [...] Suspension 12/14/2022 06/02/2023 INHALATION NEEDED 1 unit(s) 74 752 RxNorm 1 EACH INHALATION NEEDED Trulicity [...] ORAL NEEDED EVERY 8 HOURS 1 TABLET 99 666 RxNorm TAKE 1 TABLET ORAL NEEDED [...] Code Code System TYPE 2 DIABETES active 84496201 SNOM ED-CT HYPOTHYROIDISM active 70752255 SNOME D-CT DENTAL CARIES active 60623324 SNOMED -CT ACUTE BRONCHITIS active 07381942 SNO MED-CT SUPERFICIAL FOREIGN BODY, RIGHT FOOT, INITIAL ENCOUNTER active 937234501 SNOMED-CT ASTHMA 03/03/2022 resolved 628763902 SNOMED-CT ANXIETY 01/19/2022 resolved 19637609 SNOMED-CT HLD 09/10/2022 resolved 49459377 SNOMED-CT Allergies and Adverse Reactions Allergy Substance Reaction Severity Start Date Concern Status Code Code System SULFA (sulfonamide) Anaphylaxis (SNOMED-CT: 92194023) Active 20378302 SNOMED-CT MORPHINE Hives (SNOMED-CT: 423105173), Itching (SNOMED-CT: 818005726) Moderate Active 7052 RxNorm BEE POLLEN Anaphylaxis (SNOMED-CT: 15187977) Active 836216 RxNorm DILAUDID Hives (SNOMED-CT: 366308137), Itching (SNOMED-CT: 542299968) Moderate Active 357204 RxNorm Plan of Treatment Symptoms 08/09/2021 LAB DRAW 15MIN 05/30/2024 US PELVIC / TV 11/06/2023 CT CHEST W/O CONTRAST 03/13/2023 CT CHEST W/O CONTRAST 03/04/2023 SYMPTOMS 10/19/2022 LAB DRAW 15MIN 08/02/2022 LAB DRAW 15MIN 05/25/2022 SYMPTOMS 04/28/2022 EXPOSURE 12/07/2021 SYMPTOMS 11/22/2021 SYMPTOMS 2021 Encounters Encounter Diagnosis Start Date Code Code Sys tem Exposure to SARS-CoV-2 11/22/2021 704149298 SNOME D-CT Personal Care Team Section Performer Name Performer Role Active Date Inactive Da te
--- OUTSIDE RECORDS SUMMARY | 2024-07-02 18:44 | XMS_ITS ---
Author Organization Unknown Address [address] [place] [address] [phone] Phone Care Team Providers Care Community Services Officer Name Role Phone JUAN BARRAZA Registered Nurse Unavailable CARROLL Paredes Attending Unavailable CHAS Lopez Primary Unavailable UNLISTED PROVIDER - REQUESTED Xhandoff Un available Social History Type Status Start Date End Date Code Code Syst em Smoking History Current every day smoker 154928311 SNOMED CT Smoking History Former smoker 2240245 SNOMED CT Smoking History Current some day smoker 11/25/[address] Sex Female Vital Signs Vital Sign Value Unit [place] Value [place] Unit Date/Time Recent/Initial? Code Code System Body Mass Index 49.23 kg/m2 01/16/2022 23:09 Initial 94618 -5 LOINC Systolic Blood Pressure 156 mm[Hg] 01/16/2022 23:09 Initial 8480- 6 LOINC Diastolic Blood Pressure 93 mm[Hg] 01/16/2022 23:09 Initial 8462- 4 LOINC Body Surface Area 2.83 m2 01/16/2022 23:09 Initial 3140- 1 LOINC Height 180.340 0 cm 71.00 in 01/16/2022 23:09 Initial 8302- 2 LOINC O2 Saturation 100 % 2021 23:09 Initial 12240 -5 LOINC Pulse 92.0 /min 01/16/2022 23:09 Initial 8867- 4 LOINC Respiration 18 /min 01/16/20 23:09 Initial 9279- 1 LOINC Temperature 35.9 Teodora 96.6 F 01/16/20 23:09 Initial 8310- 5 LOINC Weight 160.12 kg 353.00 lbs 01/16/2022 23:09 Initial 06737 -7 LOINC Medications Medication Start Date End Date Route [...] Suspension 12/14/2022 06/02/2023 INHALATION NEEDED 1 unit(s) 950 322 RxNorm 1 EACH INHALATION NEEDED Trulicity 0.75MG/0.5M [...] Code Code Syste m C section completed 48764372 SNOMEDCT History of LEEP completed 98086982928297 SNOME DCT Problems Problem Start Date Resolved Date Status Code Code System TYPE 2 DIABETES active 59207425 SNOM ED-CT HYPOTHYROIDISM active 29329521 SNOME D-CT DENTAL CARIES active 22269265 SNOMED -CT ACUTE BRONCHITIS active 68903658 SNO MED-CT SUPERFICIAL FOREIGN BODY, RIGHT FOOT, INITIAL ENCOUNTER active 675188287 SNOMED-CT ASTHMA 03/03/2022 resolved 657922953 SNOMED-CT ANXIETY 01/19/2022 resolved 36977954 SNOMED-CT HLD 09/10/2022 resolved 33899773 SNOMED-CT Allergies and Adverse Reactions Allergy Substance Reaction Severity Start Date Concern Status Code Code System SULFA (sulfonamide) Anaphylaxis (SNOMED-CT: 28345411) Active 74585117 SNOMED-CT MORPHINE Hives (SNOMED-CT: 030877190), Itching (SNOMED-CT: 798120964) Moderate Active 7052 RxNorm BEE POLLEN Anaphylaxis (SNOMED-CT: 48423280) Active 970360 RxNorm DILAUDID Hives (SNOMED-CT: 182232677), Itching (SNOMED-CT: 577371260) Moderate Active 444486 RxNorm Plan of Treatment Symptoms 08/09/2021 LAB [...]
--- OUTSIDE RECORDS SUMMARY | 2024-07-02 18:45 | XMS_ITS ---
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 Name Role Phone RUSSELL LUCIO Registered Nurse Unavailable DEMETRIA Ko Attending Unavailable [facility] Unavailable CHAS Lopez Primary Unavailable UNLISTED PROVIDER - REQUESTED Xhandoff Un available Results URINALYSIS WITH REFLEX CULT IF POSITIVE* - Collect Date/Time: 03/10/2022 10:30 [facility] ID: [id number] [address] [place] [address], [address] LOINC: 49487-6 Test Value Unit Reference Range Code Code System Flag COLLECTION MODE: NOT STATED Color YELLOW yellow 5778-6 LOINC Appearance CLEAR clear 5767-9 LOINC Glucose urine NEGATIVE negative mg/dl 43028-8 LOINC Bilirubin NEGATIVE negative 5770-3 LOINC Ketones NEGATIVE negative mg/dl 2514-8 LOINC Spec gravity 1.020 1.003 - 1.030 5811-5 LOINC pH urine 7.0 5.0 - 7.0 2756-5 LOINC Protein NEGATIVE negative mg/dl 14358-4 LOINC Urobilinogen 0.2 <or= 1 EU/dl 73593-8 LOINC Nitrite. NEGATIVE negative 5802-4 LOINC Blood NEGATIVE negative 5794-3 LOINC Leukocytes. NEGATIVE negative MICROSCOPIC NOT INDICAT TROPONIN HIGH SENSITIVITY* - Collect Date/Time: 03/10/2022 10:15 [facility] ID: [id number] [address] [place] [address], [address] LOINC: 02863-3 Test Value Unit Reference Range Code Code System Flag TROPONIN HS 5.8 pg/mL L=0.0 H=60.4 Specimen seq. Random LIPASE* - Collect Date/Time: 03/10/2022 10:15 [facility] ID: [id number] - [id number] [address] [place], [place], [id number] LOINC: 3040-3 Test Value Unit Reference Range Code Code System Flag LIPASE 97 U/L L=73 H=393 COMPREHENSIVE METABOLIC PANE L (CMP) - Collect Date/Time: 03/10/2022 10:15 [facility] ID: [id number] [address] [place], [place], [address] LOINC: 14212-1 Test Value Unit Reference Range Code Code [...] H=34 2028-9 LOINC ANION GAP 5.1 mmol/L 33885-8 LOINC CALCIUM SERUM 9.1 mg/dL L=8.2 H=10.2 09229-5 LOINC BILIRUBIN TOTAL 0.4 mg/dL L=0.0 H=1.3 1975-2 LOINC ALK. PHOS. 80 U/L L=46 H=116 6768-6 LOINC SGOT (AST) 18 U/L L=15 H=37 1920-8 LOINC SGPT (ALT) 20 U/L L=12 H=78 1742-6 LOINC TOTAL PROTEIN 7.9 gm/dL L=6.0 H=8.0 2885-2 LOINC ALBUMIN 3.3 gm/dL L=3.4 H=5.0 1751-7 LOINC L AGE 41 years eGFR (non-Afr.Amer.) 78 mL/min 05251-0 LOINC eGFR (Afr-Andorran) 95 mL/min 89696-4 LOINC CBC W/ DIFFERENTIAL* - Colle ct Date/Time: 03/10/2022 10:15 [facility] ID: [id number] [address] [place], [place], [address] LOINC: 49998-6 Test Value Unit Reference Range Code Code System Flag WBC 11.52 th/cmm L=5.00 H=10.00 6690-2 LOINC H NEUT % 70.3 % L=40.0 H=80.0 LYMPH % 23.1 % L=10.0 H=50.0 MONO % 3.9 % L=2.0 H=12.0 28002-5 LOINC EOS % 1.9 % L=0.0 H=8.0 BASO % 0.5 % L=0.0 H=3.0 IG % 0.3 % L=0.0 H=1.1 2514-8 LOINC NRBC % 0.0 % L=0.0 H=0.0 04992-6 LOINC NEUT abs count 8.1 th/cmm L=1.6 H=8.4 751-8 LOINC LYMPH abs count 2.7 th/cmm L=1.5 H=4.0 731-0 LOINC MONO abs count 0.5 th/cmm L=0.2 H=1.0 742-7 LOINC EOS abs count 0.2 th/cmm L=0.0 H=0.5 711-2 LOINC BASO abs count 0.1 th/cmm L=0.0 H=0.2 704-7 LOINC IG abs count 0.0 th/cmm L=0.0 H=0.1 64002-7 LOINC NRBC abs count 0.0 mil/cmm L=0.0 H=0.0 09671-1 LOINC RBC 4.77 mil/cmm L=3.90 H=5.40 789-8 LOINC HEMOGLOBIN 13.7 gm/dL L=12.0 H=16.0 718-7 LOINC HEMATOCRIT 42 % L=37 H=47 4544-3 LOINC MCV 87 fL L=82 H=92 787-2 LOINC MCH 28.7 pg L=27.0 H=31.0 785-6 LOINC MCHC 33.0 % L=32.0 H=36.0 786-4 LOINC RDW-SD 43.4 fL L=39.0 H=49.0 788-0 LOINC PLATELET COUNT 324 th/cmm L=150 H=450 777-[facility] Social History Type Status Start Date End Date Code Code Syst em Smoking History Current every day smoker 818428135 SNOMED CT Smoking History Former smoker 0826609 SNOMED CT Smoking History Current some day smoker 11/25/[id number] Sex Female Vital Signs Vital Sign Value Unit [place] Value [place] Unit Date/Time Recent/Initial? Code Code System Body Mass Index 48.40 kg/m2 03/10/2022 10:00 Initial 62062 -5 [facility] Systolic Blood Pressure 148 mm[Hg] 03/10/2022 10:00 Initial 8480- 6 [facility] Diastolic Blood Pressure 95 mm[Hg] 03/10/2022 10:00 Initial 8462- 4 [facility] Body Surface Area 2.81 m2 03/10/2022 10:00 Initial 3140- 1 [facility] Height 180.340 0 cm 71.00 in 03/10/2022 10:00 Initial 8302- 2 [facility] O2 Saturation 96 % 2021 10:51 Most Recent 70442 -5 [facility] O2 Saturation 100 % 2021 10:00 Initial 52284 -5 [facility] Pulse 82.0 /min 03/10/2022 10:51 Most Recent 8867- 4 [facility] Pulse 92.0 /min 03/10/2022 10:00 Initial 8867- 4 [facility] Respiration 16 /min 03/10/20 10:00 Initial 9279- 1 [facility] Temperature 36.1 Teodora 97.0 F 03/10/20 10:00 Initial 8310- 5 [facility] Weight 157.40 kg 347.00 lbs 03/10/2022 10:00 Initial 72863 -7 [facility] Medications Medication Start Date End Date Route Frequency Dose Code Code System Medication Instructions Home Meds Penicillin VK 500MG Oral Tablet 01/16/2022 05/02/2022 ORAL TWICE A DAY 1 TABLET 236659 RxNorm TAKE 1 TABLET ORAL TWICE A DAY Tessalon Perles 100MG Oral Capsule, Liquid Filled 05/02/2022 07/08/2022 ORAL NEEDED EVERY 6 HOURS 1 CAPSULE 054258 RxNorm TAKE 1 CAPSULE ORAL NEEDED EVERY 6 HOURS predniSONE 20MG Oral Tablet 05/02/2022 07/08/2022 ORAL DAILY 2 TABLET 388978 RxNorm TAKE 2 TABLET ORAL DAILY Penicillin VK 500MG Oral Tablet 07/08/2022 07/17/2022 ORAL FOUR TIMES A DAY 1 TABLET 397524 RxNorm TAKE 1 TABLET ORAL FOUR TIMES A DAY Ondansetron 4MG Oral Tablet, Disintegrating 07/17/2022 10/07/2022 ORAL NEEDED EVERY 6 HOURS 1 TABLET 850148 RxNorm TAKE 1 TABLET ORAL NEEDED EVERY 6 HOURS FOR Nausea/Vo miting HYDROcodone bitartrate-carlos taminophen 5MG-325MG Oral Tablet 07/17/2022 10/07/2022 ORAL NEEDED EVERY 4 HOURS 1 TABLET 492864 RxNorm TAKE 1 TABLET ORAL NEEDED EVERY 4 HOURS FOR Pain Ibuprofen 200MG Oral Tablet 07/17/2022 09/01/2023 ORAL EVERY 6 HOURS 3 TABLET 958967 RxNorm TAKE 3 TABLET ORAL EVERY 6 HOURS FOR 24 HOURS THEN NEEDED FOR PAIN Chlorhexidine Gluconate 0.12% Oral Liquid 07/17/2022 10/07/2022 ORAL THREE TIMES A DAY 5 mL RxNorm TAKE 5 mL ORAL SWISH AND SPIT THREE TIMES A DAY Bactrim DS 800MG-160MG Oral Tablet 09/04/2022 10/07/2022 ORAL TWICE A DAY 1 TABLET 927231 RxNorm TAKE 1 TABLET ORAL TWICE A DAY Benadryl Allergy 25MG Oral Tablet 09/11/2022 09/01/2023 ORAL EVERY 6 HOURS 2 TABLET 7786197 RxNorm TAKE 2 TABLET ORAL EVERY 6 HOURS Zofran 4MG Oral Tablet 10/07/2022 10/04/2023 ORAL NEEDED THREE TIMES A DAY 1 TABLET 175293 RxNorm TAKE 1 TABLET ORAL NEEDED THREE TIMES A DAY oxyCODONE HCl 5MG Oral Tablet 12/14/2022 09/01/2023 ORAL NEEDED EVERY 3 HOURS 5 MILLIGRAM S 5337878 RxNorm TAKE 5 MILLIGRAM S ORAL NEEDED EVERY 3 HOURS Atorvastatin Calcium 40MG Oral Tablet 12/14/2022 Unknown ORAL DAILY 40 MILLIGRAM S 484882 RxNorm TAKE 40 MILLIGRAM S ORAL DAILY Levothyroxine 200MCG Oral Tablet 12/14/2022 09/01/2023 ORAL DAILY 200 MCG 342204 RxNorm TAKE 200 MCG ORAL DAILY ProAir HFA 0.09MG/1Actuat ion Inhalation Suspension 12/14/2022 06/02/2023 INHALATI ON NEEDED 1 unit(s) 864571 RxNorm 1 EACH INHALATIO N NEEDED Trulicity 0.75MG/0.5ML Subcutaneous Solution 12/14/2022 09/01/2023 SUBCUTAN EOUS MONDAYS 1.5 MILLIGRAM S 3895057 RxNorm INJECT 1.5 MILLIGRAM S SUBCUTANE OUS MONDAYS metFORMIN HCl 500MG Oral Tablet 12/14/2022 06/01/2023 ORAL TWICE A DAY 1000 MILLIGRAM S 204048 RxNorm TAKE 1000 MILLIGRAM S ORAL TWICE A DAY predniSONE 20MG Oral Tablet 03/06/2023 06/02/2023 ORAL DAILY 1 TABLET 787464 RxNorm TAKE 1 TABLET ORAL DAILY Zithromax 250MG Oral Tablet 03/06/2023 06/02/2023 ORAL DAILY 1 TABLET 403309 RxNorm TAKE 2 TABLETS ORAL DAILY ON DAY 1 AND THEN1 TABLET DAILY ON DAYS 2-5 Albuterol Sulfate 0.09MG/1Actuat ion Inhalation Suspension 06/02/2023 Unknown INHALATI ON NEEDED EVERY 4 HOURS 2 PUFF 9293054 RxNorm 2 PUFF INHALATIO N EVERY 4 HOURS FOR 24 HOURS THEN NEEDED FOR Cough/Sandra rtness of breath Zithromax 250MG Oral Tablet 06/02/2023 06/10/2023 ORAL DAILY 1 TABLET 261430 RxNorm TAKE 1 TABLET ORAL DAILY predniSONE 20MG Oral Tablet 06/02/2023 06/10/2023 ORAL DAILY 3 TABLET 447323 RxNorm TAKE 3 TABLET ORAL DAILY Mucinex D 600MG-60mg Oral Tablet, Extended Release 06/02/2023 09/01/2023 ORAL TWICE A DAY 1 TABLET 4991806 RxNorm TAKE 1 TABLET ORAL TWICE A DAY FOR 3-5 DAYS Zithromax 250MG Oral Tablet 06/10/2023 09/01/2023 ORAL DAILY 1 TABLET 199888 RxNorm TAKE 2 TABLETS ORAL DAILY ON DAY 1 AND THEN1 TABLET DAILY ON DAYS 2-5 Ibuprofen 800MG Oral Tablet 08/28/2023 10/04/2023 ORAL EVERY 8 HOURS 1 TABLET 004266 RxNorm TAKE 1 TABLET ORAL EVERY 8 HOURS Penicillin VK 500MG Oral Tablet 08/28/2023 09/01/2023 ORAL THREE TIMES A DAY 1 TABLET 998019 RxNorm TAKE 1 TABLET ORAL THREE TIMES A DAY Tylenol 325MG Oral Tablet 09/01/2023 10/04/2023 ORAL NEEDED EVERY 6 HOURS 2 TABLET 543382 RxNorm TAKE 2 TABLET ORAL NEEDED EVERY 6 HOURS Anbesol Maximum Strength 20% Oromucosal Gel/Jelly 09/01/2023 10/04/2023 OROMUCOS AL THREE TIMES A DAY 1 RxNorm 1 OROMUCOSA L THREE TIMES A DAY Augmentin 875MG-125MG Oral Tablet 09/04/2023 10/04/2023 ORAL TWICE A DAY 1 TABLET 909063 RxNorm TAKE 1 TABLET ORAL TWICE A DAY Meclizine HCl 25MG Oral Tablet 10/04/2023 01/21/2024 ORAL NEEDED EVERY 8 HOURS 1 TABLET 165846 RxNorm TAKE 1 TABLET ORAL NEEDED EVERY 8 HOURS. No alcohol, recreatio nal drugs, driving or operating machinery while taking this. Augmentin 875MG-125MG Oral Tablet 10/26/2023 11/06/2023 ORAL TWICE A DAY 1 TABLET 664387 RxNorm TAKE 1 TABLET ORAL TWICE A DAY Augmentin 875MG-125MG Oral Tablet 11/06/2023 12/11/2023 ORAL TWICE A DAY 1 TABLET 806867 RxNorm TAKE 1 TABLET ORAL TWICE A DAY Tessalon Perles 100MG Oral Capsule, Liquid Filled 11/06/2023 12/11/2023 ORAL NEEDED EVERY 6 HOURS 1 CAPSULE 896927 RxNorm TAKE 1 CAPSULE ORAL NEEDED EVERY 6 HOURS Zithromax 250MG Oral Tablet 02/16/2024 03/29/2024 ORAL DAILY 1 TABLET 599788 RxNorm TAKE 2 TABLETS ORAL DAILY ON DAY 1 AND THEN1 TABLET DAILY ON DAYS 2-5 Keflex 500MG Oral Capsule 03/29/2024 04/06/2024 ORAL THREE TIMES A DAY 1 CAPSULE 441279 RxNorm TAKE 1 CAPSULE ORAL THREE TIMES A DAY Keflex 500MG Oral Capsule 04/06/2024 06/03/2024 ORAL THREE TIMES A DAY 1 CAPSULE 586110 RxNorm TAKE 1 CAPSULE ORAL THREE TIMES [...] Code Code System TYPE 2 DIABETES active 95210378 SNOM ED-CT HYPOTHYROIDISM active 31616020 SNOME D-CT DENTAL CARIES active 53300121 SNOMED -CT ACUTE BRONCHITIS active 57038917 SNO MED-CT SUPERFICIAL FOREIGN BODY, RIGHT FOOT, INITIAL ENCOUNTER active 940734940 SNOMED-CT ASTHMA 03/03/2022 resolved 486648109 SNOMED-CT ANXIETY 01/19/2022 resolved 81112608 SNOMED-CT HLD 09/10/2022 resolved 09877581 SNOMED-CT Allergies and Adverse Reactions Allergy Substance Reaction Severity Start Date Concern Status Code Code System SULFA (sulfonamide) Anaphylaxis (SNOMED-CT: 67838861) Active 78273498 SNOMED-CT MORPHINE Hives (SNOMED-CT: 177337448), Itching (SNOMED-CT: 373235698) Moderate Active 7052 RxNorm BEE POLLEN Anaphylaxis (SNOMED-CT: 28864134) Active 842968 RxNorm DILAUDID Hives (SNOMED-CT: 134859063), Itching (SNOMED-CT: 371724704) Moderate Active 764638 RxNorm Plan of Treatment Symptoms 08/09/2021 LAB [...]
--- OUTSIDE RECORDS SUMMARY | 2024-07-02 18:45 | XMS_ITS ---
Author Organization Unknown Address [address] [place] [phone] Phone Care Team Providers Care Travel Registered Nurse Nicu Name Role Phone ARTURO VEGA Registered Nurse Unavailable CARROLL Praedes Attending Unavailable CHAS Lopez Primary Unavailable UNLISTED PROVIDER - REQUESTED Xhandoff Un available Results URINALYSIS WITH REFLEX CULT IF POSITIVE* - Collect Date/Time: 03/04/2022 00:15 [facility] ID: [id number] [address] [place] [address], [address] LOINC: 22147-0 Test Value Unit Reference Range Code Code System Flag COLLECTION MODE: CLEAN CATCH Color YELLOW yellow 5778-6 LOINC Appearance CLEAR clear 5767-9 LOINC Glucose urine NEGATIVE negative mg/dl 24070-8 LOINC Bilirubin NEGATIVE negative 5770-3 LOINC Ketones NEGATIVE negative mg/dl 2514-8 LOINC Spec gravity 1.010 1.003 - 1.030 5811-5 LOINC pH urine 5.5 5.0 - 7.0 2756-5 LOINC Protein NEGATIVE negative mg/dl 40102-6 LOINC Urobilinogen 0.2 <or= 1 EU/dl 02667-5 LOINC Nitrite. NEGATIVE negative 5802-4 LOINC Blood NEGATIVE negative 5794-3 LOINC Leukocytes. NEGATIVE negative MICROSCOPIC NOT INDICAT TEST (URINE) QUALI TATIVE - Collect Date/Time: 03/04/2022 00:15 [facility] ID: [id number] [address] [place] [address], [address] LOINC: 2106-3 Test Value Unit Reference Range Code Code System Flag TEST NEGATIVE 2106-3 LOINC HCG QUANTITATIVE WHOLE MOLEC ULE* - Collect Date/Time: 03/03/2022 22:45 [facility] ID: [id number] [address] [place], [place], [address] LOINC: 47612-7 Test Value Unit Reference Range Code Code System Flag HCG, total+Beta subs 1 53762-6 LOINC LIPASE* - Collect Date/Time: 03/03/2022 22:45 [facility] ID: [id number] [address] [place], [place], [id number] LOINC: 3040-3 Test Value Unit Reference Range Code Code System Flag LIPASE 112 U/L L=73 H=393 COMPREHENSIVE METABOLIC PANE L (CMP) - Collect Date/Time: 03/03/2022 22:45 [facility] ID: [id number] [address] [place] [address], [address] LOINC: 65481-6 Test Value Unit Reference Range Code Code [...] H=34 2028-9 LOINC ANION GAP 5.0 mmol/L 22421-5 LOINC CALCIUM SERUM 9.4 mg/dL L=8.2 H=10.2 56004-4 LOINC BILIRUBIN TOTAL 0.2 mg/dL L=0.0 H=1.3 1975-2 LOINC ALK. PHOS. 80 U/L L=46 H=116 6768-6 LOINC SGOT (AST) 16 U/L L=15 H=37 1920-8 LOINC SGPT (ALT) 20 U/L L=12 H=78 1742-6 LOINC TOTAL PROTEIN 7.8 gm/dL L=6.0 H=8.0 2885-2 LOINC ALBUMIN 3.3 gm/dL L=3.4 H=5.0 1751-7 LOINC L AGE 41 years eGFR (non-Afr.Amer.) 65 mL/min 24010-6 LOINC eGFR (Afr-Luxembourger) 79 mL/min 02526-8 LOINC CBC W/ DIFFERENTIAL* - Colle ct Date/Time: 03/03/2022 22:45 [facility] ID: [id number] [address] [place] [address], [address] LOINC: 46998-8 Test Value Unit Reference Range Code Code System Flag WBC 13.46 th/cmm L=5.00 H=10.00 6690-2 LOINC H NEUT % 66.8 % L=40.0 H=80.0 LYMPH % 27.9 % L=10.0 H=50.0 MONO % 3.0 % L=2.0 H=12.0 27255-1 LOINC EOS % 1.5 % L=0.0 H=8.0 BASO % 0.4 % L=0.0 H=3.0 IG % 0.4 % L=0.0 H=1.1 2514-8 LOINC NRBC % 0.0 % L=0.0 H=0.0 35452-8 LOINC NEUT abs count 9.0 th/cmm L=1.6 H=8.4 751-8 LOINC H LYMPH abs count 3.8 th/cmm L=1.5 H=4.0 731-0 LOINC MONO abs count 0.4 th/cmm L=0.2 H=1.0 742-7 LOINC EOS abs count 0.2 th/cmm L=0.0 H=0.5 711-2 LOINC BASO abs count 0.1 th/cmm L=0.0 H=0.2 704-7 LOINC IG abs count 0.1 th/cmm L=0.0 H=0.1 81037-5 LOINC NRBC abs count 0.0 mil/cmm L=0.0 H=0.0 34961-9 LOINC RBC 4.63 mil/cmm L=3.90 H=5.40 789-8 [...] No evidence of diverticulitis or bowel obstruction. 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 CONCLUSION: Right lower pole renal mass, 3-4 cm in diameter, suspicious for renal carcinoma. No other significant findings. Dictated by: JOSIE BARDALES RADIOLOGIST Transcribed by: ALEX 03/05/22/08:06 [id number] Electronically Reviewed and Signed By: ARTEMIO BARDALES RADIOLOGIST 03/06/22 08:16 Copy for: 185 HEALTH INFORMATION MGMT DISCHARGED Social History Type Status Start Date End Date Code Code Syst em Smoking History Current every day smoker 118440075 SNOMED CT Smoking History Former smoker 9401660 SNOMED CT Smoking History Current some day smoker 11/25/[address] Sex Female Vital Signs Vital Sign Value Unit [place] Value [place] Unit Date/Time Recent/Initial? Code Code System Body Mass Index 49.23 kg/m2 03/03/2022 22:22 Initial 19223 -5 [facility] Systolic Blood Pressure 126 mm[Hg] 03/03/2022 22:22 Initial 8480- 6 LOINC Diastolic Blood Pressure 58 mm[Hg] 03/03/2022 22:22 Initial 8462- 4 [facility] Body Surface Area 2.83 m2 03/03/2022 22:22 Initial 3140- 1 [facility] Height 180.340 0 cm 71.00 in 03/03/2022 22:22 Initial 8302- 2 [facility] O2 Saturation 96 % 2021 22:22 Initial 53289 -5 [facility] Pulse 98.0 /min 03/03/2022 22:22 Initial 8867- 4 [facility] Respiration 17 /min 03/03/20 22:22 Initial 9279- 1 [facility] Temperature 36.6 Teodora 97.9 F 03/03/20 22:22 Initial 8310- 5 [facility] Weight 160.12 kg 353.00 lbs 03/03/2022 22:22 Initial 43990 -7 [facility] Medications Medication Start Date End Date Route Frequency Dose Code Code System Medication Instructions Home Meds Penicillin VK 500MG Oral Tablet 01/16/2022 05/02/2022 ORAL TWICE A DAY 1 TABLET 445866 RxNorm TAKE 1 TABLET ORAL TWICE A DAY Tessalon Perles 100MG Oral Capsule, Liquid Filled 05/02/2022 07/08/2022 ORAL NEEDED EVERY 6 HOURS 1 CAPSULE 429982 RxNorm TAKE 1 CAPSULE ORAL NEEDED EVERY 6 HOURS predniSONE 20MG Oral Tablet 05/02/2022 07/08/2022 ORAL DAILY 2 TABLET 165668 RxNorm TAKE 2 TABLET ORAL DAILY Penicillin VK 500MG Oral Tablet 07/08/2022 07/17/2022 ORAL FOUR TIMES A DAY 1 TABLET 939090 RxNorm TAKE 1 TABLET ORAL FOUR TIMES A DAY Ondansetron 4MG Oral Tablet, Disintegrating 07/17/2022 10/07/2022 ORAL NEEDED EVERY 6 HOURS 1 TABLET 673032 RxNorm TAKE 1 TABLET ORAL NEEDED EVERY 6 HOURS FOR Nausea/Vo miting HYDROcodone bitartrate-carlos taminophen 5MG-325MG Oral Tablet 07/17/2022 10/07/2022 ORAL NEEDED EVERY 4 HOURS 1 TABLET 249542 RxNorm TAKE 1 TABLET ORAL NEEDED EVERY 4 HOURS FOR Pain Ibuprofen 200MG Oral Tablet 07/17/2022 09/01/2023 ORAL EVERY 6 HOURS 3 TABLET 801700 RxNorm TAKE 3 TABLET ORAL EVERY 6 HOURS FOR 24 HOURS THEN NEEDED FOR PAIN Chlorhexidine Gluconate 0.12% Oral Liquid 07/17/2022 10/07/2022 ORAL THREE TIMES A DAY 5 mL RxNorm TAKE 5 mL ORAL SWISH AND SPIT THREE TIMES A DAY Bactrim DS 800MG-160MG Oral Tablet 09/04/2022 10/07/2022 ORAL TWICE A DAY 1 TABLET 233780 RxNorm TAKE 1 TABLET ORAL TWICE A DAY Benadryl Allergy 25MG Oral Tablet 09/11/2022 09/01/2023 ORAL EVERY 6 HOURS 2 TABLET 8324986 RxNorm TAKE 2 TABLET ORAL EVERY 6 HOURS Zofran 4MG Oral Tablet 10/07/2022 10/04/2023 ORAL NEEDED THREE TIMES A DAY 1 TABLET 799589 RxNorm TAKE 1 TABLET ORAL NEEDED THREE TIMES A DAY oxyCODONE HCl 5MG Oral Tablet 12/14/2022 09/01/2023 ORAL NEEDED EVERY 3 HOURS 5 MILLIGRAM S 7087926 RxNorm TAKE 5 MILLIGRAM S ORAL NEEDED EVERY 3 HOURS Atorvastatin Calcium 40MG Oral Tablet 12/14/2022 Unknown ORAL DAILY 40 MILLIGRAM S 465472 RxNorm TAKE 40 MILLIGRAM S ORAL DAILY Levothyroxine 200MCG Oral Tablet 12/14/2022 09/01/2023 ORAL DAILY 200 MCG 761158 RxNorm TAKE 200 MCG ORAL DAILY ProAir HFA 0.09MG/1Actuat ion Inhalation Suspension 12/14/2022 06/02/2023 INHALATI ON NEEDED 1 unit(s) 676409 RxNorm 1 EACH INHALATIO N NEEDED Trulicity 0.75MG/0.5ML Subcutaneous Solution 12/14/2022 09/01/2023 SUBCUTAN EOUS MONDAYS 1.5 MILLIGRAM S 3365901 RxNorm INJECT 1.5 MILLIGRAM S SUBCUTANE OUS MONDAYS metFORMIN HCl 500MG Oral Tablet 12/14/2022 06/01/2023 ORAL TWICE A DAY 1000 MILLIGRAM S 359545 RxNorm TAKE 1000 MILLIGRAM S ORAL TWICE A DAY predniSONE 20MG Oral Tablet 03/06/2023 06/02/2023 ORAL DAILY 1 TABLET 412851 RxNorm TAKE 1 TABLET ORAL DAILY Zithromax 250MG Oral Tablet 03/06/2023 06/02/2023 ORAL DAILY 1 TABLET 700400 RxNorm TAKE 2 TABLETS ORAL DAILY ON DAY 1 AND THEN1 TABLET DAILY ON DAYS 2-5 Albuterol Sulfate 0.09MG/1Actuat ion Inhalation Suspension 06/02/2023 Unknown INHALATI ON NEEDED EVERY 4 HOURS 2 PUFF 5759466 RxNorm 2 PUFF INHALATIO N EVERY 4 HOURS FOR 24 HOURS THEN NEEDED FOR Cough/Sandra rtness of breath Zithromax 250MG Oral Tablet 06/02/2023 06/10/2023 ORAL DAILY 1 TABLET 822045 RxNorm TAKE 1 TABLET ORAL DAILY predniSONE 20MG Oral Tablet 06/02/2023 06/10/2023 ORAL DAILY 3 TABLET 590638 RxNorm TAKE 3 TABLET ORAL DAILY Mucinex D 600MG-60mg Oral Tablet, Extended Release 06/02/2023 09/01/2023 ORAL TWICE A DAY 1 TABLET 9067259 RxNorm TAKE 1 TABLET ORAL TWICE A DAY FOR 3-5 DAYS Zithromax 250MG Oral Tablet 06/10/2023 09/01/2023 ORAL DAILY 1 TABLET 592697 RxNorm TAKE 2 TABLETS ORAL DAILY ON DAY 1 AND THEN1 TABLET DAILY ON DAYS 2-5 Ibuprofen 800MG Oral Tablet 08/28/2023 10/04/2023 ORAL EVERY 8 HOURS 1 TABLET 980389 RxNorm TAKE 1 TABLET ORAL EVERY 8 HOURS Penicillin VK 500MG Oral Tablet 08/28/2023 09/01/2023 ORAL THREE TIMES A DAY 1 TABLET 341862 RxNorm TAKE 1 TABLET ORAL THREE TIMES A DAY Tylenol 325MG Oral Tablet 09/01/2023 10/04/2023 ORAL NEEDED EVERY 6 HOURS 2 TABLET 730375 RxNorm TAKE 2 TABLET ORAL NEEDED EVERY 6 HOURS Anbesol Maximum Strength 20% Oromucosal Gel/Jelly 09/01/2023 10/04/2023 OROMUCOS AL THREE TIMES A DAY 1 RxNorm 1 OROMUCOSA L THREE TIMES A DAY Augmentin 875MG-125MG Oral Tablet 09/04/2023 10/04/2023 ORAL TWICE A DAY 1 TABLET 784800 RxNorm TAKE 1 TABLET ORAL TWICE A DAY Meclizine HCl 25MG Oral Tablet 10/04/2023 01/21/2024 ORAL NEEDED EVERY 8 HOURS 1 TABLET 108058 RxNorm TAKE 1 TABLET ORAL NEEDED EVERY 8 HOURS. No alcohol, recreatio nal drugs, driving or operating machinery while taking this. Augmentin 875MG-125MG Oral Tablet 10/26/2023 11/06/2023 ORAL TWICE A DAY 1 TABLET 188665 RxNorm TAKE 1 TABLET ORAL TWICE A DAY Augmentin 875MG-125MG Oral Tablet 11/06/2023 12/11/2023 ORAL TWICE A DAY 1 TABLET 759574 RxNorm TAKE 1 TABLET ORAL TWICE A DAY Tessalon Perles 100MG Oral Capsule, Liquid Filled 11/06/2023 12/11/2023 ORAL NEEDED EVERY 6 HOURS 1 CAPSULE 215947 RxNorm TAKE 1 CAPSULE ORAL NEEDED EVERY 6 HOURS Zithromax 250MG Oral Tablet 02/16/2024 03/29/2024 ORAL DAILY 1 TABLET 527790 RxNorm TAKE 2 TABLETS ORAL DAILY ON DAY 1 AND THEN1 TABLET DAILY ON DAYS 2-5 Keflex 500MG Oral Capsule 03/29/2024 04/06/2024 ORAL THREE TIMES A DAY 1 CAPSULE 756364 RxNorm TAKE 1 CAPSULE ORAL THREE TIMES A DAY Keflex 500MG Oral Capsule 04/06/2024 06/03/2024 ORAL THREE TIMES A DAY 1 CAPSULE 779315 RxNorm TAKE 1 CAPSULE ORAL THREE TIMES [...] Code Code System TYPE 2 DIABETES active 95642595 SNOM ED-CT HYPOTHYROIDISM active 32408399 SNOME D-CT DENTAL CARIES active 72126359 SNOMED -CT ACUTE BRONCHITIS active 29977243 SNO MED-CT SUPERFICIAL FOREIGN BODY, RIGHT FOOT, INITIAL ENCOUNTER active 923593058 SNOMED-CT ASTHMA 03/03/2022 resolved 806130658 SNOMED-CT ANXIETY 01/19/2022 resolved 10289633 SNOMED-CT HLD 09/10/2022 resolved 57029427 SNOMED-CT Allergies and Adverse Reactions Allergy Substance Reaction Severity Start Date Concern Status Code Code System SULFA (sulfonamide) Anaphylaxis (SNOMED-CT: 58538822) Active 05732586 SNOMED-CT MORPHINE Hives (SNOMED-CT: 730994478), Itching (SNOMED-CT: 498913290) Moderate Active 7052 RxNorm BEE POLLEN Anaphylaxis (SNOMED-CT: 65984579) Active 754851 RxNorm DILAUDID Hives (SNOMED-CT: 714033975), Itching (SNOMED-CT: 936965108) Moderate Active 959544 RxNorm Plan of Treatment Symptoms 08/09/2021 LAB [...]
--- OUTSIDE RECORDS SUMMARY | 2024-07-02 18:45 | XMS_ITS ---
Author Organization Unknown Address [address] [place] [address] [phone] Phone Care Team Providers Care Data Center Engineer Name Role Phone ELLIE AVILA Registered Nurse Unavailab dallas Arrington Attending Unavailable CHAS Lopez Primary Unavailable UNLISTED PROVIDER - REQUESTED Xhandoff Un available Results [facility] - Brijesh ect Date/Time: 05/02/2022 22:00 [facility] ID: [id number] [address] [place] [address], [id number] LOINC: 58733-2 Test Value Unit Reference Range Code Code System Flag Tier- SYMPTOMS 83583-7 LOINC SARS COV2 RNA: NEGATIVE REFERENCE RAN GE: NEGAT 63568-6 LOINC XR CHEST 2V PA AND LATERAL - Completed: 05/03/2022 05:31 LOINC: PA AND LATERAL CHEST: Comparison is made with January 16. The lungs are suboptimally inflated on the PA view but appear clear. The heart size is normal. IMPRESSION:Negative chest x-ray. Dictated by: CEO KILEY MICHEL MD Transcribed by: DELMI 05/03/22/13:39 D April 8:38:27 AM [id number] Electronically Reviewed and Signed By: KILEY MICHEL MD 05/03/22 14:10 Copy for: 185 HEALTH INFORMATION MGMT DISCHARGED Social History Type Status Start Date End Date Code Code Syst em Smoking History Current every day smoker 351129195 SNOMED CT Smoking History Former smoker 9322826 SNOMED CT Smoking History Current some day smoker 11/25/[id number] Sex Female Vital Signs Vital Sign Value Unit [place] Value [place] Unit Date/Time Recent/Initial? Code Code System Body Mass Index 49.09 kg/m2 05/02/2022 21:25 Initial 50133 -5 LOINC Systolic Blood Pressure 114 mm[Hg] 05/02/2022 21:25 Initial 8480- 6 LOINC Diastolic Blood Pressure 63 mm[Hg] 05/02/2022 21:25 Initial 8462- 4 LOINC Body Surface Area 2.83 m2 05/02/2022 21:25 Initial 3140- 1 LOINC Height 180.340 0 cm 71.00 in 05/02/2022 21:25 Initial 8302- 2 LOINC O2 Saturation 97 % 2021 21:25 Initial 33629 -5 LOINC Pulse 94.0 /min 05/02/2022 21:25 Initial 8867- 4 LOINC Respiration 17 /min 05/02/20 21:25 Initial 9279- 1 LOINC Temperature 37.1 Teodora 98.8 F 05/02/20 21:25 Initial 8310- 5 LOINC Weight 159.66 kg 352.00 lbs 05/02/2022 21:25 Initial 26097 -7 [facility] Medication Start Date End Date Route Frequency Dose Code Code System Medication Instructions Home Meds Penicillin VK 500MG Oral Tablet 01/16/2022 05/02/2022 ORAL TWICE A DAY 1 TABLET 067345 RxNorm TAKE 1 TABLET ORAL TWICE A DAY Tessalon Perles 100MG Oral Capsule, Liquid Filled 05/02/2022 07/08/2022 ORAL NEEDED EVERY 6 HOURS 1 CAPSULE 913467 RxNorm TAKE 1 CAPSULE ORAL NEEDED EVERY 6 HOURS predniSONE 20MG Oral Tablet 05/02/2022 07/08/2022 ORAL DAILY 2 TABLET 852009 RxNorm TAKE 2 TABLET ORAL DAILY Penicillin VK 500MG Oral Tablet 07/08/2022 07/17/2022 ORAL FOUR TIMES A DAY 1 TABLET 990581 RxNorm TAKE 1 TABLET ORAL FOUR TIMES A DAY Ondansetron 4MG Oral Tablet, Disintegrating 07/17/2022 10/07/2022 ORAL NEEDED EVERY 6 HOURS 1 TABLET 125543 RxNorm TAKE 1 TABLET ORAL NEEDED EVERY 6 HOURS FOR Nausea/Vo miting HYDROcodone bitartrate-carlos taminophen 5MG-325MG Oral Tablet 07/17/2022 10/07/2022 ORAL NEEDED EVERY 4 HOURS 1 TABLET 006161 RxNorm TAKE 1 TABLET ORAL NEEDED EVERY 4 HOURS FOR Pain Ibuprofen 200MG Oral Tablet 07/17/2022 09/01/2023 ORAL EVERY 6 HOURS 3 TABLET 333444 RxNorm TAKE 3 TABLET ORAL EVERY 6 HOURS FOR 24 HOURS THEN NEEDED FOR PAIN Chlorhexidine Gluconate 0.12% Oral Liquid 07/17/2022 10/07/2022 ORAL THREE TIMES A DAY 5 mL RxNorm TAKE 5 mL ORAL SWISH AND SPIT THREE TIMES A DAY Bactrim DS 800MG-160MG Oral Tablet 09/04/2022 10/07/2022 ORAL TWICE A DAY 1 TABLET 575139 RxNorm TAKE 1 TABLET ORAL TWICE A DAY Benadryl Allergy 25MG Oral Tablet 09/11/2022 09/01/2023 ORAL EVERY 6 HOURS 2 TABLET 9524096 RxNorm TAKE 2 TABLET ORAL EVERY 6 HOURS Zofran 4MG Oral Tablet 10/07/2022 10/04/2023 ORAL NEEDED THREE TIMES A DAY 1 TABLET 980487 RxNorm TAKE 1 TABLET ORAL NEEDED THREE TIMES A DAY oxyCODONE HCl 5MG Oral Tablet 12/14/2022 09/01/2023 ORAL NEEDED EVERY 3 HOURS 5 MILLIGRAM S 1249296 RxNorm TAKE 5 MILLIGRAM S ORAL NEEDED EVERY 3 HOURS Atorvastatin Calcium 40MG Oral Tablet 12/14/2022 Unknown ORAL DAILY 40 MILLIGRAM S 443409 RxNorm TAKE 40 MILLIGRAM S ORAL DAILY Levothyroxine 200MCG Oral Tablet 12/14/2022 09/01/2023 ORAL DAILY 200 MCG 335035 RxNorm TAKE 200 MCG ORAL DAILY ProAir HFA 0.09MG/1Actuat ion Inhalation Suspension 12/14/2022 06/02/2023 INHALATI ON NEEDED 1 unit(s) 656685 RxNorm 1 EACH INHALATIO N NEEDED Trulicity 0.75MG/0.5ML Subcutaneous Solution 12/14/2022 09/01/2023 SUBCUTAN EOUS MONDAYS 1.5 MILLIGRAM S 9199740 RxNorm INJECT 1.5 MILLIGRAM S SUBCUTANE OUS MONDAYS metFORMIN HCl 500MG Oral Tablet 12/14/2022 06/01/2023 ORAL TWICE A DAY 1000 MILLIGRAM S 069040 RxNorm TAKE 1000 MILLIGRAM S ORAL TWICE A DAY predniSONE 20MG Oral Tablet 03/06/2023 06/02/2023 ORAL DAILY 1 TABLET 736452 RxNorm TAKE 1 TABLET ORAL DAILY Zithromax 250MG Oral Tablet 03/06/2023 06/02/2023 ORAL DAILY 1 TABLET 724829 RxNorm TAKE 2 TABLETS ORAL DAILY ON DAY 1 AND THEN1 TABLET DAILY ON DAYS 2-5 Albuterol Sulfate 0.09MG/1Actuat ion Inhalation Suspension 06/02/2023 Unknown INHALATI ON NEEDED EVERY 4 HOURS 2 PUFF 8237826 RxNorm 2 PUFF INHALATIO N EVERY 4 HOURS FOR 24 HOURS THEN NEEDED FOR Cough/Sandra rtness of breath Zithromax 250MG Oral Tablet 06/02/2023 06/10/2023 ORAL DAILY 1 TABLET 942243 RxNorm TAKE 1 TABLET ORAL DAILY predniSONE 20MG Oral Tablet 06/02/2023 06/10/2023 ORAL DAILY 3 TABLET 034372 RxNorm TAKE 3 TABLET ORAL DAILY Mucinex D 600MG-60mg Oral Tablet, Extended Release 06/02/2023 09/01/2023 ORAL TWICE A DAY 1 TABLET 3111876 RxNorm TAKE 1 TABLET ORAL TWICE A DAY FOR 3-5 DAYS Zithromax 250MG Oral Tablet 06/10/2023 09/01/2023 ORAL DAILY 1 TABLET 942404 RxNorm TAKE 2 TABLETS ORAL DAILY ON DAY 1 AND THEN1 TABLET DAILY ON DAYS 2-5 Ibuprofen 800MG Oral Tablet 08/28/2023 10/04/2023 ORAL EVERY 8 HOURS 1 TABLET 586741 RxNorm TAKE 1 TABLET ORAL EVERY 8 HOURS Penicillin VK 500MG Oral Tablet 08/28/2023 09/01/2023 ORAL THREE TIMES A DAY 1 TABLET 659364 RxNorm TAKE 1 TABLET ORAL THREE TIMES A DAY Tylenol 325MG Oral Tablet 09/01/2023 10/04/2023 ORAL NEEDED EVERY 6 HOURS 2 TABLET 663497 RxNorm TAKE 2 TABLET ORAL NEEDED EVERY 6 HOURS Anbesol Maximum Strength 20% Oromucosal Gel/Jelly 09/01/2023 10/04/2023 OROMUCOS AL THREE TIMES A DAY 1 RxNorm 1 OROMUCOSA L THREE TIMES A DAY Augmentin 875MG-125MG Oral Tablet 09/04/2023 10/04/2023 ORAL TWICE A DAY 1 TABLET 820151 RxNorm TAKE 1 TABLET ORAL TWICE A DAY Meclizine HCl 25MG Oral Tablet 10/04/2023 01/21/2024 ORAL NEEDED EVERY 8 HOURS 1 TABLET 207070 RxNorm TAKE 1 TABLET ORAL NEEDED EVERY 8 HOURS. No alcohol, recreatio nal drugs, driving or operating machinery while taking this. Augmentin 875MG-125MG Oral Tablet 10/26/2023 11/06/2023 ORAL TWICE A DAY 1 TABLET 211064 RxNorm TAKE 1 TABLET ORAL TWICE A DAY Augmentin 875MG-125MG Oral Tablet 11/06/2023 12/11/2023 ORAL TWICE A DAY 1 TABLET 655063 RxNorm TAKE 1 TABLET ORAL TWICE A DAY Tessalon Perles 100MG Oral Capsule, Liquid Filled 11/06/2023 12/11/2023 ORAL NEEDED EVERY 6 HOURS 1 CAPSULE 589604 RxNorm TAKE 1 CAPSULE ORAL NEEDED EVERY 6 HOURS Zithromax 250MG Oral Tablet 02/16/2024 03/29/2024 ORAL DAILY 1 TABLET 985879 RxNorm TAKE 2 TABLETS ORAL DAILY ON DAY 1 AND THEN1 TABLET DAILY ON DAYS 2-5 Keflex 500MG Oral Capsule 03/29/2024 04/06/2024 ORAL THREE TIMES A DAY 1 CAPSULE 488500 RxNorm TAKE 1 CAPSULE ORAL THREE TIMES A DAY Keflex 500MG Oral Capsule 04/06/2024 06/03/2024 ORAL THREE TIMES A DAY 1 CAPSULE 793666 RxNorm TAKE 1 CAPSULE ORAL THREE TIMES [...] Code Code System TYPE 2 DIABETES active 94706009 SNOM ED-CT HYPOTHYROIDISM active 31607963 SNOME D-CT DENTAL CARIES active 70757356 SNOMED -CT ACUTE BRONCHITIS active 09755689 SNO MED-CT SUPERFICIAL FOREIGN BODY, RIGHT FOOT, INITIAL ENCOUNTER active 514361828 SNOMED-CT ASTHMA 03/03/2022 resolved 723961811 SNOMED-CT ANXIETY 01/19/2022 resolved 76870546 SNOMED-CT HLD 09/10/2022 resolved 66010265 SNOMED-CT Allergies and Adverse Reactions Allergy Substance Reaction Severity Start Date Concern Status Code Code System SULFA (sulfonamide) Anaphylaxis (SNOMED-CT: 98640249) Active 32387274 SNOMED-CT MORPHINE Hives (SNOMED-CT: 192225453), Itching (SNOMED-CT: 299167768) Moderate Active 7052 RxNorm BEE POLLEN Anaphylaxis (SNOMED-CT: 92029177) Active 007627 RxNorm DILAUDID Hives (SNOMED-CT: 796990952), Itching (SNOMED-CT: 801892442) Moderate Active 896122 RxNorm Plan of Treatment Symptoms 08/09/2021 LAB [...] Date Inactive Da te Discharge Summary Notes [facility] 05/02/2022 22:06 Discharge Date: 05/02/2022 22:05 [...]
--- OUTSIDE RECORDS SUMMARY | 2024-07-02 18:46 | XMS_ITS ---
Author Organization Unknown Address [address] [place] [address] [phone] Phone Care Team Providers Care Accountant Clerk Name Role Phone PHUONG Molina Attending Unavailable CHAS Lopez Primary Unavailable Social History Type Status Start Date End Date Code Code Syst em Smoking History Current every day smoker 458955383 SNOMED CT Smoking History Former smoker 0731035 SNOMED CT Smoking History Current some day smoker 11/25/[id number] Sex Female Medications Medication Start Date End Date Route Frequency Dose Code Code System Medication Instructions Home Meds Tessalon Perles 100MG Oral Capsule, Liquid Filled 05/02/2022 07/08/2022 ORAL NEEDED EVERY 6 HOURS 1 CAPSULE 393732 RxNorm TAKE 1 CAPSULE ORAL NEEDED EVERY 6 HOURS predniSONE 20MG Oral Tablet 05/02/2022 07/08/2022 ORAL DAILY 2 TABLET 619001 RxNorm TAKE 2 TABLET ORAL DAILY Penicillin VK 500MG Oral Tablet 07/08/2022 07/17/2022 ORAL FOUR TIMES A DAY 1 TABLET 678395 RxNorm TAKE 1 TABLET ORAL FOUR TIMES A DAY Ondansetron 4MG Oral Tablet, Disintegrati ng 07/17/2022 10/07/2022 ORAL NEEDED EVERY 6 HOURS 1 TABLET 590967 RxNorm TAKE 1 TABLET ORAL NEEDED EVERY 6 HOURS FOR Nausea/Vom iting HYDROcodone bitartrate-a cetaminophen 5MG-325MG Oral Tablet 07/17/2022 10/07/2022 ORAL NEEDED EVERY 4 HOURS 1 TABLET 598348 RxNorm TAKE 1 TABLET ORAL NEEDED EVERY 4 HOURS FOR Pain Ibuprofen 200MG Oral Tablet 07/17/2022 09/01/2023 ORAL EVERY 6 HOURS 3 TABLET 743878 RxNorm TAKE 3 TABLET ORAL EVERY 6 HOURS FOR 24 HOURS THEN NEEDED FOR PAIN Chlorhexidin e Gluconate 0.12% Oral Liquid 07/17/2022 10/07/2022 ORAL THREE TIMES A DAY 5 mL RxNorm TAKE 5 mL ORAL SWISH AND SPIT THREE TIMES A DAY Bactrim DS 800MG-160MG Oral Tablet 09/04/2022 10/07/2022 ORAL TWICE A DAY 1 TABLET 796207 RxNorm TAKE 1 TABLET ORAL TWICE A DAY Benadryl Allergy 25MG Oral Tablet 09/11/2022 09/01/2023 ORAL EVERY 6 HOURS 2 TABLET 3178176 RxNorm TAKE 2 TABLET ORAL EVERY 6 HOURS Zofran 4MG Oral Tablet 10/07/2022 10/04/2023 ORAL NEEDED THREE TIMES A DAY 1 TABLET 388985 RxNorm TAKE 1 TABLET ORAL NEEDED THREE TIMES A DAY oxyCODONE HCl 5MG Oral Tablet 12/14/2022 09/01/2023 ORAL NEEDED EVERY 3 HOURS 5 MILLIGRAMS 8410251 RxNorm TAKE 5 MILLIGRAMS ORAL NEEDED EVERY 3 HOURS Atorvastatin Calcium 40MG Oral Tablet 12/14/2022 Unknown ORAL DAILY 40 MILLIGRAMS 144141 RxNorm TAKE 40 MILLIGRAMS ORAL DAILY Levothyroxin e 200MCG Oral Tablet 12/14/2022 09/01/2023 ORAL DAILY 200 MCG 032724 RxNorm TAKE 2 00 MCG ORAL DAILY ProAir HFA 0.09MG/1Actu ation Inhalation Suspension 12/14/2022 06/02/2023 INHALATI ON NEEDED 1 unit(s) 125783 RxNorm 1 EACH INHALATION NEEDED Trulicity 0.75MG/0.5ML Subcutaneous Solution 12/14/2022 09/01/2023 SUBCUTAN EOUS MONDAYS 1.5 MILLIGRAMS 6218343 RxNorm INJECT 1.5 MILLIGRAMS SUBCUTANEO US MONDAYS metFORMIN HCl 500MG Oral Tablet 12/14/2022 06/01/2023 ORAL TWICE A DAY 1000 MILLIGRAMS 787905 RxNorm TAKE 1000 MILLIGRAMS ORAL TWICE A DAY predniSONE 20MG Oral Tablet 03/06/2023 06/02/2023 ORAL DAILY 1 TABLET 666535 RxNorm TAKE 1 TABLET ORAL DAILY Zithromax 250MG Oral Tablet 03/06/2023 06/02/2023 ORAL DAILY 1 TABLET 366250 RxNorm TAKE 2 TABLETS ORAL DAILY ON DAY 1 AND THEN1 TABLET DAILY ON DAYS 2-5 Albuterol Sulfate 0.09MG/1Actu ation Inhalation Suspension 06/02/2023 Unknown INHALATI ON NEEDED EVERY 4 HOURS 2 PUFF 5819902 RxNorm 2 PUFF INHALATION EVERY 4 HOURS FOR 24 HOURS THEN NEEDED FOR Cough/Shor tness of breath Zithromax 250MG Oral Tablet 06/02/2023 06/10/2023 ORAL DAILY 1 TABLET 286915 RxNorm TAKE 1 TABLET ORAL DAILY predniSONE 20MG Oral Tablet 06/02/2023 06/10/2023 ORAL DAILY 3 TABLET 367174 RxNorm TAKE 3 TABLET ORAL DAILY Mucinex D 600MG-60mg Oral Tablet, Extended Release 06/02/2023 09/01/2023 ORAL TWICE A DAY 1 TABLET 0209487 RxNorm TAKE 1 TABLET ORAL TWICE A DAY FOR 3-5 DAYS Zithromax 250MG Oral Tablet 06/10/2023 09/01/2023 ORAL DAILY 1 TABLET 748282 RxNorm TAKE 2 TABLETS ORAL DAILY ON DAY 1 AND THEN1 TABLET DAILY ON DAYS 2-5 Ibuprofen 800MG Oral Tablet 08/28/2023 10/04/2023 ORAL EVERY 8 HOURS 1 TABLET 713661 RxNorm TAKE 1 TABLET ORAL EVERY 8 HOURS Penicillin VK 500MG Oral Tablet 08/28/2023 09/01/2023 ORAL THREE TIMES A DAY 1 TABLET 687106 RxNorm TAKE 1 TABLET ORAL THREE TIMES A DAY Tylenol 325MG Oral Tablet 09/01/2023 10/04/2023 ORAL NEEDED EVERY 6 HOURS 2 TABLET 973665 RxNorm TAKE 2 TABLET ORAL NEEDED EVERY 6 HOURS Anbesol Maximum Strength 20% Oromucosal Gel/Jelly 09/01/2023 10/04/2023 OROMUCOS AL THREE TIMES A DAY 1 RxNorm 1 OROMUCOSAL THREE TIMES A DAY Augmentin 875MG-125MG Oral Tablet 09/04/2023 10/04/2023 ORAL TWICE A DAY 1 TABLET 938579 RxNorm TAKE 1 TABLET ORAL TWICE A DAY Meclizine HCl 25MG Oral Tablet 10/04/2023 01/21/2024 ORAL NEEDED EVERY 8 HOURS 1 TABLET 373144 RxNorm TAKE 1 TABLET ORAL NEEDED EVERY 8 HOURS. No alcohol, recreation al drugs, driving or operating machinery while taking this. Augmentin 875MG-125MG Oral Tablet 10/26/2023 11/06/2023 ORAL TWICE A DAY 1 TABLET 645517 RxNorm TAKE 1 TABLET ORAL TWICE A DAY Augmentin 875MG-125MG Oral Tablet 11/06/2023 12/11/2023 ORAL TWICE A DAY 1 TABLET 248824 RxNorm TAKE 1 TABLET ORAL TWICE A DAY Tessalon Perles 100MG Oral Capsule, Liquid Filled 11/06/2023 12/11/2023 ORAL NEEDED EVERY 6 HOURS 1 CAPSULE 978405 RxNorm TAKE 1 CAPSULE ORAL NEEDED EVERY 6 HOURS Zithromax 250MG Oral Tablet 02/16/2024 03/29/2024 ORAL DAILY 1 TABLET 164779 RxNorm TAKE 2 TABLETS ORAL DAILY ON DAY 1 AND THEN1 TABLET DAILY ON DAYS 2-5 Keflex 500MG Oral Capsule 03/29/2024 04/06/2024 ORAL THREE TIMES A DAY 1 CAPSULE 650996 RxNorm TAKE 1 CAPSULE ORAL THREE TIMES A DAY Keflex 500MG Oral Capsule 04/06/2024 06/03/2024 ORAL THREE TIMES A DAY 1 CAPSULE 023314 RxNorm TAKE 1 CAPSULE ORAL THREE TIMES [...] Code Code System TYPE 2 DIABETES active 36001167 SNOM ED-CT HYPOTHYROIDISM active 44622078 SNOME D-CT DENTAL CARIES active 51401922 SNOMED -CT ACUTE BRONCHITIS active 14506568 SNO MED-CT SUPERFICIAL FOREIGN BODY, RIGHT FOOT, INITIAL ENCOUNTER active 018779107 SNOMED-CT ASTHMA 03/03/2022 resolved 220730023 SNOMED-CT ANXIETY 01/19/2022 resolved 84903947 SNOMED-CT HLD 09/10/2022 resolved 72638639 SNOMED-CT Allergies and Adverse Reactions Allergy Substance Reaction Severity Start Date Concern Status Code Code System SULFA (sulfonamide) Anaphylaxis (SNOMED-CT: 79663833) Active 46753178 SNOMED-CT MORPHINE Hives (SNOMED-CT: 524324063), Itching (SNOMED-CT: 685408599) Moderate Active 7052 RxNorm BEE POLLEN Anaphylaxis (SNOMED-CT: 38067717) Active 578498 RxNorm DILAUDID Hives (SNOMED-CT: 517919377), Itching (SNOMED-CT: 294444479) Moderate Active 815375 RxNorm Plan of Treatment Symptoms 08/09/2021 LAB [...]
--- OUTSIDE RECORDS SUMMARY | 2024-07-02 18:46 | XMS_ITS ---
Author Organization Unknown Address [address] [place] [address] [phone] Phone Care Team Providers Care Site Worker Name Role Phone CHAS Lopez Attending Unavailable Results HEMOGLOBIN A1C* - Collect Da te/Time: 05/25/2022 15:59 [facility] ID: [id number] [address] [place] [address], 5661 LOINC: 4548-4 Test Value Unit Reference Range Code Code System Flag Hgb A1c 8.7 % L=3.8 H=5.7 4548-4 LOINC H MEAN BLOOD GLUCOSE 204 mg/dL 31793-2 LOINC THYROID TESTING CASCADE* - C ollect Date/Time: 05/25/2022 15:59 [facility] ID: [id number] [address] [place] [address], 5[address] LOINC: 3016-3 Test Value Unit Reference Range Code Code System Flag TSH. 0.947 uIU/mL L=0.360 H=3.740 3014-8 LOINC LIPID PANEL* - Collect Date/ Time: 05/25/2022 15:59 [facility] ID: [id number] [address] [place] [address], [id number] LOINC: Test Value Unit Reference Range Code Code System Flag FASTING STATUS: NON FASTING CHOLESTEROL 206 mg/dL L=0 H=200 2093-3 LOINC H TRIGLYCERIDES 227 mg/dL L=45 H=191 2571-8 LOINC H HDL 29 mg/dL L=34 H=88 2085-9 LOINC L non-HDL-C 177 mg/dL L=0 H=160 65724-0 LOINC H LDL (CALC) 132 mg/dL L=0 H=130 00466-7 LOINC H % HDL 14.1 % Chol/HDL Ratio 7.1 L=0.0 H=4.4 9830-1 LOINC H CHD Relative Risk 1.6 x Avg L=0.0 H=1.0 H LDL/HDL Ratio 4.6 L=0.0 H=3.2 73387-0 LOINC H CHD Relative Risk. 1.4 x Avg L=0.0 H=1.0 H Social History Type Status Start Date End Date Code Code Syst em Smoking History Current every day smoker 562172678 SNOMED CT Smoking History Former smoker 6661053 SNOMED CT Smoking History Current some day smoker 11/25/[id number] Sex Female Medications Medication Start Date End Date Route Frequency Dose Code Code System Medication Instructions Home Meds Tessalon Perles 100MG Oral Capsule, Liquid Filled 05/02/2022 07/08/2022 ORAL NEEDED EVERY 6 HOURS 1 CAPSULE 890525 RxNorm TAKE 1 CAPSULE ORAL NEEDED EVERY 6 HOURS predniSONE 20MG Oral Tablet 05/02/2022 07/08/2022 ORAL DAILY 2 TABLET 253766 RxNorm TAKE 2 TABLET ORAL DAILY Penicillin VK 500MG Oral Tablet 07/08/2022 07/17/2022 ORAL FOUR TIMES A DAY 1 TABLET 554557 RxNorm TAKE 1 TABLET ORAL FOUR TIMES A DAY Ondansetron 4MG Oral Tablet, Disintegrati ng 07/17/2022 10/07/2022 ORAL NEEDED EVERY 6 HOURS 1 TABLET 224759 RxNorm TAKE 1 TABLET ORAL NEEDED EVERY 6 HOURS FOR Nausea/Vom iting HYDROcodone bitartrate-a cetaminophen 5MG-325MG Oral Tablet 07/17/2022 10/07/2022 ORAL NEEDED EVERY 4 HOURS 1 TABLET 913421 RxNorm TAKE 1 TABLET ORAL NEEDED EVERY 4 HOURS FOR Pain Ibuprofen 200MG Oral Tablet 07/17/2022 09/01/2023 ORAL EVERY 6 HOURS 3 TABLET 904434 RxNorm TAKE 3 TABLET ORAL EVERY 6 HOURS FOR 24 HOURS THEN NEEDED FOR PAIN Chlorhexidin e Gluconate 0.12% Oral Liquid 07/17/2022 10/07/2022 ORAL THREE TIMES A DAY 5 mL RxNorm TAKE 5 mL ORAL SWISH AND SPIT THREE TIMES A DAY Bactrim DS 800MG-160MG Oral Tablet 09/04/2022 10/07/2022 ORAL TWICE A DAY 1 TABLET 949388 RxNorm TAKE 1 TABLET ORAL TWICE A DAY Benadryl Allergy 25MG Oral Tablet 09/11/2022 09/01/2023 ORAL EVERY 6 HOURS 2 TABLET 8443750 RxNorm TAKE 2 TABLET ORAL EVERY 6 HOURS Zofran 4MG Oral Tablet 10/07/2022 10/04/2023 ORAL NEEDED THREE TIMES A DAY 1 TABLET 745149 RxNorm TAKE 1 TABLET ORAL NEEDED THREE TIMES A DAY oxyCODONE HCl 5MG Oral Tablet 12/14/2022 09/01/2023 ORAL NEEDED EVERY 3 HOURS 5 MILLIGRAMS 5092621 RxNorm TAKE 5 MILLIGRAMS ORAL NEEDED EVERY 3 HOURS Atorvastatin Calcium 40MG Oral Tablet 12/14/2022 Unknown ORAL DAILY 40 MILLIGRAMS 171438 RxNorm TAKE 40 MILLIGRAMS ORAL DAILY Levothyroxin e 200MCG Oral Tablet 12/14/2022 09/01/2023 ORAL DAILY 200 MCG 463992 RxNorm TAKE 2 00 MCG ORAL DAILY ProAir HFA 0.09MG/1Actu ation Inhalation Suspension 12/14/2022 06/02/2023 INHALATI ON NEEDED 1 unit(s) 113964 RxNorm 1 EACH INHALATION NEEDED Trulicity 0.75MG/0.5ML Subcutaneous Solution 12/14/2022 09/01/2023 SUBCUTAN EOUS MONDAYS 1.5 MILLIGRAMS 6637270 RxNorm INJECT 1.5 MILLIGRAMS SUBCUTANEO US MONDAYS metFORMIN HCl 500MG Oral Tablet 12/14/2022 06/01/2023 ORAL TWICE A DAY 1000 MILLIGRAMS 274683 RxNorm TAKE 1000 MILLIGRAMS ORAL TWICE A DAY predniSONE 20MG Oral Tablet 03/06/2023 06/02/2023 ORAL DAILY 1 TABLET 514954 RxNorm TAKE 1 TABLET ORAL DAILY Zithromax 250MG Oral Tablet 03/06/2023 06/02/2023 ORAL DAILY 1 TABLET 960963 RxNorm TAKE 2 TABLETS ORAL DAILY ON DAY 1 AND THEN1 TABLET DAILY ON DAYS 2-5 Albuterol Sulfate 0.09MG/1Actu ation Inhalation Suspension 06/02/2023 Unknown INHALATI ON NEEDED EVERY 4 HOURS 2 PUFF 3924675 RxNorm 2 PUFF INHALATION EVERY 4 HOURS FOR 24 HOURS THEN NEEDED FOR Cough/Shor tness of breath Zithromax 250MG Oral Tablet 06/02/2023 06/10/2023 ORAL DAILY 1 TABLET 164428 RxNorm TAKE 1 TABLET ORAL DAILY predniSONE 20MG Oral Tablet 06/02/2023 06/10/2023 ORAL DAILY 3 TABLET 014773 RxNorm TAKE 3 TABLET ORAL DAILY Mucinex D 600MG-60mg Oral Tablet, Extended Release 06/02/2023 09/01/2023 ORAL TWICE A DAY 1 TABLET 3154521 RxNorm TAKE 1 TABLET ORAL TWICE A DAY FOR 3-5 DAYS Zithromax 250MG Oral Tablet 06/10/2023 09/01/2023 ORAL DAILY 1 TABLET 128032 RxNorm TAKE 2 TABLETS ORAL DAILY ON DAY 1 AND THEN1 TABLET DAILY ON DAYS 2-5 Ibuprofen 800MG Oral Tablet 08/28/2023 10/04/2023 ORAL EVERY 8 HOURS 1 TABLET 825130 RxNorm TAKE 1 TABLET ORAL EVERY 8 HOURS Penicillin VK 500MG Oral Tablet 08/28/2023 09/01/2023 ORAL THREE TIMES A DAY 1 TABLET 308345 RxNorm TAKE 1 TABLET ORAL THREE TIMES A DAY Tylenol 325MG Oral Tablet 09/01/2023 10/04/2023 ORAL NEEDED EVERY 6 HOURS 2 TABLET 131801 RxNorm TAKE 2 TABLET ORAL NEEDED EVERY 6 HOURS Anbesol Maximum Strength 20% Oromucosal Gel/Jelly 09/01/2023 10/04/2023 OROMUCOS AL THREE TIMES A DAY 1 RxNorm 1 OROMUCOSAL THREE TIMES A DAY Augmentin 875MG-125MG Oral Tablet 09/04/2023 10/04/2023 ORAL TWICE A DAY 1 TABLET 730908 RxNorm TAKE 1 TABLET ORAL TWICE A DAY Meclizine HCl 25MG Oral Tablet 10/04/2023 01/21/2024 ORAL NEEDED EVERY 8 HOURS 1 TABLET 566476 RxNorm TAKE 1 TABLET ORAL NEEDED EVERY 8 HOURS. No alcohol, recreation al drugs, driving or operating machinery while taking this. Augmentin 875MG-125MG Oral Tablet 10/26/2023 11/06/2023 ORAL TWICE A DAY 1 TABLET 299614 RxNorm TAKE 1 TABLET ORAL TWICE A DAY Augmentin 875MG-125MG Oral Tablet 11/06/2023 12/11/2023 ORAL TWICE A DAY 1 TABLET 215289 RxNorm TAKE 1 TABLET ORAL TWICE A DAY Tessalon Perles 100MG Oral Capsule, Liquid Filled 11/06/2023 12/11/2023 ORAL NEEDED EVERY 6 HOURS 1 CAPSULE 488278 RxNorm TAKE 1 CAPSULE ORAL NEEDED EVERY 6 HOURS Zithromax 250MG Oral Tablet 02/16/2024 03/29/2024 ORAL DAILY 1 TABLET 779954 RxNorm TAKE 2 TABLETS ORAL DAILY ON DAY 1 AND THEN1 TABLET DAILY ON DAYS 2-5 Keflex 500MG Oral Capsule 03/29/2024 04/06/2024 ORAL THREE TIMES A DAY 1 CAPSULE 390956 RxNorm TAKE 1 CAPSULE ORAL THREE TIMES A DAY Keflex 500MG Oral Capsule 04/06/2024 06/03/2024 ORAL THREE TIMES A DAY 1 CAPSULE 511832 RxNorm TAKE 1 CAPSULE ORAL THREE TIMES [...] Code Code System TYPE 2 DIABETES active 82358861 SNOM ED-CT HYPOTHYROIDISM active 39717420 SNOME D-CT DENTAL CARIES active 65063046 SNOMED -CT ACUTE BRONCHITIS active 74701769 SNO MED-CT SUPERFICIAL FOREIGN BODY, RIGHT FOOT, INITIAL ENCOUNTER active 350106506 SNOMED-CT ASTHMA 03/03/2022 resolved 449433807 SNOMED-CT ANXIETY 01/19/2022 resolved 53050820 SNOMED-CT HLD 09/10/2022 resolved 24335072 SNOMED-CT Allergies and Adverse Reactions Allergy Substance Reaction Severity Start Date Concern Status Code Code System SULFA (sulfonamide) Anaphylaxis (SNOMED-CT: 93899418) Active 40837832 SNOMED-CT MORPHINE Hives (SNOMED-CT: 503172610), Itching (SNOMED-CT: 900341275) Moderate Active 7052 RxNorm BEE POLLEN Anaphylaxis (SNOMED-CT: 00865292) Active 955718 RxNorm DILAUDID Hives (SNOMED-CT: 494874273), Itching (SNOMED-CT: 665034948) Moderate Active 544571 RxNorm Plan of Treatment Symptoms 08/09/2021 LAB DRAW 15MIN 05/30/2024 US PELVIC / TV 11/06/2023 CT CHEST W/O CONTRAST 03/13/2023 CT CHEST W/O CONTRAST 03/04/2023 SYMPTOMS 10/19/2022 LAB DRAW 15MIN 08/02/2022 LAB DRAW 15MIN 05/25/2022 SYMPTOMS 04/28/2022 EXPOSURE 12/07/2021 SYMPTOMS 11/22/2021 SYMPTOMS 2021 Encounters Encounter Diagnosis Start Date Code Code Sys tem Type 2 diabetes mellitus without complication 05/25/20 22 800973228 SNOMED-CT Personal Care Team Section Performer Name Performer Role Active Date Inactive Da te
--- OUTSIDE RECORDS SUMMARY | 2024-07-02 18:46 | XMS_ITS ---
Author Organization Unknown Address [address] [place] [address] [phone] Phone Care Team Providers Care Checkroom Chief Name Role Phone ELLIE AVILA Registered Nurse Unavailab dallas Molina Attending Unavailable CHAS Lopez Primary Unavailable UNLISTED PROVIDER - REQUESTED Xhandoff Un available Social History Type Status Start Date End Date Code Code Syst em Smoking History Current every day smoker 303985314 SNOMED CT Smoking History Former smoker 3616270 SNOMED CT Smoking History Current some day smoker 11/25/[id number] Sex Female Vital Signs Vital Sign Value Unit Bath Value Bath Unit Date/Time Recent/Initial? Code Code System Body Mass Index 47.72 kg/m2 07/08/2022 03:53 Initial 56568 -5 LOINC Systolic Blood Pressure 137 mm[Hg] 07/08/2022 03:53 Initial 8480- 6 LOINC Diastolic Blood Pressure 94 mm[Hg] 07/08/2022 03:53 Initial 8462- 4 LOINC Body Surface Area 2.79 m2 07/08/2022 03:53 Initial 3140- 1 LOINC Height 180.340 0 cm 71.00 in 07/08/2022 03:53 Initial 8302- 2 LOINC O2 Saturation 96 % 2021 03:53 Initial 30035 -5 LOINC Pulse 95.0 /min 07/08/2022 03:53 Initial 8867- 4 LOINC Respiration 20 /min 07/08/20 03:53 Initial 9279- 1 LOINC Temperature 35.9 Teodora 96.6 F 07/08/20 03:53 Initial 8310- 5 LOINC Weight 155.20 kg 342.16 lbs 07/08/2022 03:53 Initial 07787 -[address] [facility] Medications Medication Start Date End Date Route Frequency Dose Code Code System Medication Instructions Home Meds Tessalon Perles 100MG Oral Capsule, Liquid Filled 05/02/2022 07/08/2022 ORAL NEEDED EVERY 6 HOURS 1 CAPSULE 542174 RxNorm TAKE 1 CAPSULE ORAL NEEDED EVERY 6 HOURS predniSONE 20MG Oral Tablet 05/02/2022 07/08/2022 ORAL DAILY 2 TABLET 228487 RxNorm TAKE 2 TABLET ORAL DAILY Penicillin VK 500MG Oral Tablet 07/08/2022 07/17/2022 ORAL FOUR TIMES A DAY 1 TABLET 779650 RxNorm TAKE 1 TABLET ORAL FOUR TIMES A DAY Ondansetron 4MG Oral Tablet, Disintegrati ng 07/17/2022 10/07/2022 ORAL NEEDED EVERY 6 HOURS 1 TABLET 416575 RxNorm TAKE 1 TABLET ORAL NEEDED EVERY 6 HOURS FOR Nausea/Vom iting HYDROcodone bitartrate-a cetaminophen 5MG-325MG Oral Tablet 07/17/2022 10/07/2022 ORAL NEEDED EVERY 4 HOURS 1 TABLET 693870 RxNorm TAKE 1 TABLET ORAL NEEDED EVERY 4 HOURS FOR Pain Ibuprofen 200MG Oral Tablet 07/17/2022 09/01/2023 ORAL EVERY 6 HOURS 3 TABLET 296289 RxNorm TAKE 3 TABLET ORAL EVERY 6 HOURS FOR 24 HOURS THEN NEEDED FOR PAIN Chlorhexidin e Gluconate 0.12% Oral Liquid 07/17/2022 10/07/2022 ORAL THREE TIMES A DAY 5 mL RxNorm TAKE 5 mL ORAL SWISH AND SPIT THREE TIMES A DAY Bactrim DS 800MG-160MG Oral Tablet 09/04/2022 10/07/2022 ORAL TWICE A DAY 1 TABLET 615069 RxNorm TAKE 1 TABLET ORAL TWICE A DAY Benadryl Allergy 25MG Oral Tablet 09/11/2022 09/01/2023 ORAL EVERY 6 HOURS 2 TABLET 8013471 RxNorm TAKE 2 TABLET ORAL EVERY 6 HOURS Zofran 4MG Oral Tablet 10/07/2022 10/04/2023 ORAL NEEDED THREE TIMES A DAY 1 TABLET 522516 RxNorm TAKE 1 TABLET ORAL NEEDED THREE TIMES A DAY oxyCODONE HCl 5MG Oral Tablet 12/14/2022 09/01/2023 ORAL NEEDED EVERY 3 HOURS 5 MILLIGRAMS 6155587 RxNorm TAKE 5 MILLIGRAMS ORAL NEEDED EVERY 3 HOURS Atorvastatin Calcium 40MG Oral Tablet 12/14/2022 Unknown ORAL DAILY 40 MILLIGRAMS 280070 RxNorm TAKE 40 MILLIGRAMS ORAL DAILY Levothyroxin e 200MCG Oral Tablet 12/14/2022 09/01/2023 ORAL DAILY 200 MCG 269899 RxNorm TAKE 2 00 MCG ORAL DAILY ProAir HFA 0.09MG/1Actu ation Inhalation Suspension 12/14/2022 06/02/2023 INHALATI ON NEEDED 1 unit(s) 091711 RxNorm 1 EACH INHALATION NEEDED Trulicity 0.75MG/0.5ML Subcutaneous Solution 12/14/2022 09/01/2023 SUBCUTAN EOUS MONDAYS 1.5 MILLIGRAMS 6661095 RxNorm INJECT 1.5 MILLIGRAMS SUBCUTANEO US MONDAYS metFORMIN HCl 500MG Oral Tablet 12/14/2022 06/01/2023 ORAL TWICE A DAY 1000 MILLIGRAMS 700040 RxNorm TAKE 1000 MILLIGRAMS ORAL TWICE A DAY predniSONE 20MG Oral Tablet 03/06/2023 06/02/2023 ORAL DAILY 1 TABLET 673472 RxNorm TAKE 1 TABLET ORAL DAILY Zithromax 250MG Oral Tablet 03/06/2023 06/02/2023 ORAL DAILY 1 TABLET 296436 RxNorm TAKE 2 TABLETS ORAL DAILY ON DAY 1 AND THEN1 TABLET DAILY ON DAYS 2-5 Albuterol Sulfate 0.09MG/1Actu ation Inhalation Suspension 06/02/2023 Unknown INHALATI ON NEEDED EVERY 4 HOURS 2 PUFF 2144446 RxNorm 2 PUFF INHALATION EVERY 4 HOURS FOR 24 HOURS THEN NEEDED FOR Cough/Shor tness of breath Zithromax 250MG Oral Tablet 06/02/2023 06/10/2023 ORAL DAILY 1 TABLET 787878 RxNorm TAKE 1 TABLET ORAL DAILY predniSONE 20MG Oral Tablet 06/02/2023 06/10/2023 ORAL DAILY 3 TABLET 128486 RxNorm TAKE 3 TABLET ORAL DAILY Mucinex D 600MG-60mg Oral Tablet, Extended Release 06/02/2023 09/01/2023 ORAL TWICE A DAY 1 TABLET 3383234 RxNorm TAKE 1 TABLET ORAL TWICE A DAY FOR 3-5 DAYS Zithromax 250MG Oral Tablet 06/10/2023 09/01/2023 ORAL DAILY 1 TABLET 786849 RxNorm TAKE 2 TABLETS ORAL DAILY ON DAY 1 AND THEN1 TABLET DAILY ON DAYS 2-5 Ibuprofen 800MG Oral Tablet 08/28/2023 10/04/2023 ORAL EVERY 8 HOURS 1 TABLET 296054 RxNorm TAKE 1 TABLET ORAL EVERY 8 HOURS Penicillin VK 500MG Oral Tablet 08/28/2023 09/01/2023 ORAL THREE TIMES A DAY 1 TABLET 423100 RxNorm TAKE 1 TABLET ORAL THREE TIMES A DAY Tylenol 325MG Oral Tablet 09/01/2023 10/04/2023 ORAL NEEDED EVERY 6 HOURS 2 TABLET 978984 RxNorm TAKE 2 TABLET ORAL NEEDED EVERY 6 HOURS Anbesol Maximum Strength 20% Oromucosal Gel/Jelly 09/01/2023 10/04/2023 OROMUCOS AL THREE TIMES A DAY 1 RxNorm 1 OROMUCOSAL THREE TIMES A DAY Augmentin 875MG-125MG Oral Tablet 09/04/2023 10/04/2023 ORAL TWICE A DAY 1 TABLET 711420 RxNorm TAKE 1 TABLET ORAL TWICE A DAY Meclizine HCl 25MG Oral Tablet 10/04/2023 01/21/2024 ORAL NEEDED EVERY 8 HOURS 1 TABLET 074560 RxNorm TAKE 1 TABLET ORAL NEEDED EVERY 8 HOURS. No alcohol, recreation al drugs, driving or operating machinery while taking this. Augmentin 875MG-125MG Oral Tablet 10/26/2023 11/06/2023 ORAL TWICE A DAY 1 TABLET 027684 RxNorm TAKE 1 TABLET ORAL TWICE A DAY Augmentin 875MG-125MG Oral Tablet 11/06/2023 12/11/2023 ORAL TWICE A DAY 1 TABLET 304655 RxNorm TAKE 1 TABLET ORAL TWICE A DAY Tessalon Perles 100MG Oral Capsule, Liquid Filled 11/06/2023 12/11/2023 ORAL NEEDED EVERY 6 HOURS 1 CAPSULE 101246 RxNorm TAKE 1 CAPSULE ORAL NEEDED EVERY 6 HOURS Zithromax 250MG Oral Tablet 02/16/2024 03/29/2024 ORAL DAILY 1 TABLET 648335 RxNorm TAKE 2 TABLETS ORAL DAILY ON DAY 1 AND THEN1 TABLET DAILY ON DAYS 2-5 Keflex 500MG Oral Capsule 03/29/2024 04/06/2024 ORAL THREE TIMES A DAY 1 CAPSULE 558576 RxNorm TAKE 1 CAPSULE ORAL THREE TIMES A DAY Keflex 500MG Oral Capsule 04/06/2024 06/03/2024 ORAL THREE TIMES A DAY 1 CAPSULE 873982 RxNorm TAKE 1 CAPSULE ORAL THREE TIMES [...] Status Code Code Syste m Cholecystectomy completed [id number] SNOMEDCT Problems Problem Start Date Resolved Date Status Code Code System TYPE 2 DIABETES active 84222705 SNOM ED-CT HYPOTHYROIDISM active 02633642 SNOME D-CT DENTAL CARIES active 46931873 SNOMED -CT ACUTE BRONCHITIS active 57904385 SNO MED-CT SUPERFICIAL FOREIGN BODY, RIGHT FOOT, INITIAL ENCOUNTER active 111319798 SNOMED-CT ASTHMA 03/03/2022 resolved 620327023 SNOMED-CT ANXIETY 01/19/2022 resolved 88929912 SNOMED-CT HLD 09/10/2022 resolved 54078172 SNOMED-CT Allergies and Adverse Reactions Allergy Substance Reaction Severity Start Date Concern Status Code Code System SULFA (sulfonamide) Anaphylaxis (SNOMED-CT: 78655571) Active 13033667 SNOMED-CT MORPHINE Hives (SNOMED-CT: 886120698), Itching (SNOMED-CT: 033774710) Moderate Active 7052 RxNorm BEE POLLEN Anaphylaxis (SNOMED-CT: 47303443) Active 379236 RxNorm DILAUDID Hives (SNOMED-CT: 358737480), Itching (SNOMED-CT: 914411989) Moderate Active 590952 RxNorm Plan of Treatment Symptoms 08/09/2021 LAB [...]
--- OUTSIDE RECORDS SUMMARY | 2024-07-02 18:46 | XMS_ITS ---
Author Organization Unknown Address [address] [place] [address] [phone] Phone Care Team Providers Care Pr Manager Name Role Phone ELIUD SAHA Registered Nurse Unavailable LUIS RED Registered Nurse Unavailable PUNEET Martin Attending Unavailable CHAS Lopez Primary Unavailable Results LIPASE* - Collect Date/Time: 06/18/2022 21:40 [facility] ID: [id number] [address] [place] [address], [id number] LOINC: 3040-3 Test Value Unit Reference Range Code Code System Flag LIPASE 79 U/L L=73 H=393 C REACTIVE PROTEIN HIGH SENS ITIVITY* - Collect Date/Time: 06/18/2022 21:40 [facility] ID: [id number] [address] [place] [address], 5661 LOINC: 96056-7 Test Value Unit Reference Range Code Code System Flag CRP-HIGH SENS. 43.74 mg/L L=0.00 H=3.00 67604-2 LOINC H CRP-HIGH SENS 4.37 mg/dL L=0.00 H=0.30 79523-6 LOINC H COMPREHENSIVE METABOLIC PANE L (CMP) - Collect Date/Time: 06/18/2022 21:40 [facility] ID: [id number] [address] [place] [address], 5661 LOINC: 42797-0 Test Value Unit Reference Range Code Code [...] H=34 2028-9 LOINC ANION GAP 8.0 mmol/L 54170-3 LOINC CALCIUM SERUM 9.2 mg/dL L=8.2 H=10.2 65501-0 LOINC BILIRUBIN TOTAL 0.4 mg/dL L=0.0 H=1.3 1975-2 LOINC ALK. PHOS. 78 U/L L=46 H=116 6768-6 LOINC SGOT (AST) 14 U/L L=15 H=37 1920-8 LOINC L SGPT (ALT) 20 U/L L=12 H=78 1742-6 LOINC TOTAL PROTEIN 7.8 gm/dL L=6.0 H=8.0 2885-2 LOINC ALBUMIN 3.3 gm/dL L=3.4 H=5.0 1751-7 LOINC L AGE 41 years eGFR (non-Afr.Amer.) 66 mL/min 03584-9 LOINC eGFR (Afr-Puerto [place]ican) 80 mL/min 06423-7 LOINC CBC W/ DIFFERENTIAL* - Colle ct Date/Time: 06/18/2022 21:40 [facility] ID: [id number] [address] [place], [place], [address] LOINC: 91538-5 Test Value Unit Reference Range Code Code System Flag WBC 14.98 th/cmm L=5.00 H=10.00 6690-2 LOINC H NEUT % 65.0 % L=40.0 H=80.0 LYMPH % 28.8 % L=10.0 H=50.0 MONO % 4.0 % L=2.0 H=12.0 49101-2 LOINC EOS % 1.1 % L=0.0 H=8.0 BASO % 0.4 % L=0.0 H=3.0 IG % 0.7 % L=0.0 H=1.1 2514-8 LOINC NRBC % 0.0 % L=0.0 H=0.0 98551-4 LOINC NEUT abs count 9.7 th/cmm L=1.6 H=8.4 751-8 LOINC H LYMPH abs count 4.3 th/cmm L=1.5 H=4.0 731-0 LOINC H MONO abs count 0.6 th/cmm L=0.2 H=1.0 742-7 LOINC EOS abs count 0.2 th/cmm L=0.0 H=0.5 711-2 LOINC BASO abs count 0.1 th/cmm L=0.0 H=0.2 704-7 LOINC IG abs count 0.1 th/cmm L=0.0 H=0.1 78471-6 LOINC NRBC abs count 0.0 mil/cmm L=0.0 H=0.0 43720-0 LOINC RBC 4.63 mil/cmm L=3.90 H=5.40 789-8 [...] em Smoking History Current every day smoker 247195589 SNOMED CT Smoking History Former smoker 2091648 SNOMED CT Smoking History Current some day smoker 11/25/[id number] Sex Female Vital Signs Vital Sign Value Unit [place] Value [place] Unit Date/Time Recent/Initial? Code Code System Body Mass Index 48.26 kg/m2 06/18/2022 21:23 Initial 73217 -5 [facility] Systolic Blood Pressure 121 mm[Hg] 06/18/2022 23:29 Most Recent 8480- 6 INC Diastolic Blood Pressure 50 mm[Hg] 06/18/2022 23:29 Most Recent 8462- 4 [facility] Systolic Blood Pressure 123 mm[Hg] 06/18/2022 21:23 Initial 8480- 6 INC Diastolic Blood Pressure 90 mm[Hg] 06/18/2022 21:23 Initial 8462- 4 [facility] Body Surface Area 2.80 m2 06/18/2022 21:23 Initial 3140- 1 [facility] Height 180.340 0 cm 71.00 in 06/18/2022 21:23 Initial 8302- 2 [facility] O2 Saturation 96 % 2021 23:29 Most Recent 67576 -5 [facility] O2 Saturation 100 % 2021 21:23 Initial 30401 -5 INC Pulse 78.0 /min 06/18/2022 23:29 Most Recent 8867- 4 INC Pulse 98.0 /min 06/18/2022 21:23 Initial 8867- 4 INC Respiration 16 /min 06/18/20 22 23:29 Most Recent 9279- 1 INC Respiration 11 /min 06/18/20 22 21:23 Initial 9279- 1 [facility] Temperature 36.6 Teodora 97.9 F 06/18/20 22 21:23 Initial 8310- 5 [facility] Weight 156.94 kg 346.00 lbs 06/18/2022 21:23 Initial 45073 -7 [facility] Medications Medication Start Date End Date Route Frequency Dose Code Code System Medication Instructions Home Meds Tessalon Perles 100MG Oral Capsule, Liquid Filled 05/02/2022 07/08/2022 ORAL NEEDED EVERY 6 HOURS 1 CAPSULE 727200 RxNorm TAKE 1 CAPSULE ORAL NEEDED EVERY 6 HOURS predniSONE 20MG Oral Tablet 05/02/2022 07/08/2022 ORAL DAILY 2 TABLET 926236 RxNorm TAKE 2 TABLET ORAL DAILY Penicillin VK 500MG Oral Tablet 07/08/2022 07/17/2022 ORAL FOUR TIMES A DAY 1 TABLET 473549 RxNorm TAKE 1 TABLET ORAL FOUR TIMES A DAY Ondansetron 4MG Oral Tablet, Disintegrati ng 07/17/2022 10/07/2022 ORAL NEEDED EVERY 6 HOURS 1 TABLET 224955 RxNorm TAKE 1 TABLET ORAL NEEDED EVERY 6 HOURS FOR Nausea/Vom iting HYDROcodone bitartrate-a cetaminophen 5MG-325MG Oral Tablet 07/17/2022 10/07/2022 ORAL NEEDED EVERY 4 HOURS 1 TABLET 022125 RxNorm TAKE 1 TABLET ORAL NEEDED EVERY 4 HOURS FOR Pain Ibuprofen 200MG Oral Tablet 07/17/2022 09/01/2023 ORAL EVERY 6 HOURS 3 TABLET 911517 RxNorm TAKE 3 TABLET ORAL EVERY 6 HOURS FOR 24 HOURS THEN NEEDED FOR PAIN Chlorhexidin e Gluconate 0.12% Oral Liquid 07/17/2022 10/07/2022 ORAL THREE TIMES A DAY 5 mL RxNorm TAKE 5 mL ORAL SWISH AND SPIT THREE TIMES A DAY Bactrim DS 800MG-160MG Oral Tablet 09/04/2022 10/07/2022 ORAL TWICE A DAY 1 TABLET 791820 RxNorm TAKE 1 TABLET ORAL TWICE A DAY Benadryl Allergy 25MG Oral Tablet 09/11/2022 09/01/2023 ORAL EVERY 6 HOURS 2 TABLET 9369655 RxNorm TAKE 2 TABLET ORAL EVERY 6 HOURS Zofran 4MG Oral Tablet 10/07/2022 10/04/2023 ORAL NEEDED THREE TIMES A DAY 1 TABLET 810932 RxNorm TAKE 1 TABLET ORAL NEEDED THREE TIMES A DAY oxyCODONE HCl 5MG Oral Tablet 12/14/2022 09/01/2023 ORAL NEEDED EVERY 3 HOURS 5 MILLIGRAMS 6412977 RxNorm TAKE 5 MILLIGRAMS ORAL NEEDED EVERY 3 HOURS Atorvastatin Calcium 40MG Oral Tablet 12/14/2022 Unknown ORAL DAILY 40 MILLIGRAMS 486210 RxNorm TAKE 40 MILLIGRAMS ORAL DAILY Levothyroxin e 200MCG Oral Tablet 12/14/2022 09/01/2023 ORAL DAILY 200 MCG 422465 RxNorm TAKE 2 00 MCG ORAL DAILY ProAir HFA 0.09MG/1Actu ation Inhalation Suspension 12/14/2022 06/02/2023 INHALATI ON NEEDED 1 unit(s) 074162 RxNorm 1 EACH INHALATION NEEDED Trulicity 0.75MG/0.5ML Subcutaneous Solution 12/14/2022 09/01/2023 SUBCUTAN EOUS MONDAYS 1.5 MILLIGRAMS 5346135 RxNorm INJECT 1.5 MILLIGRAMS SUBCUTANEO US MONDAYS metFORMIN HCl 500MG Oral Tablet 12/14/2022 06/01/2023 ORAL TWICE A DAY 1000 MILLIGRAMS 622806 RxNorm TAKE 1000 MILLIGRAMS ORAL TWICE A DAY predniSONE 20MG Oral Tablet 03/06/2023 06/02/2023 ORAL DAILY 1 TABLET 588489 RxNorm TAKE 1 TABLET ORAL DAILY Zithromax 250MG Oral Tablet 03/06/2023 06/02/2023 ORAL DAILY 1 TABLET 766364 RxNorm TAKE 2 TABLETS ORAL DAILY ON DAY 1 AND THEN1 TABLET DAILY ON DAYS 2-5 Albuterol Sulfate 0.09MG/1Actu ation Inhalation Suspension 06/02/2023 Unknown INHALATI ON NEEDED EVERY 4 HOURS 2 PUFF 8770944 RxNorm 2 PUFF INHALATION EVERY 4 HOURS FOR 24 HOURS THEN NEEDED FOR Cough/Shor tness of breath Zithromax 250MG Oral Tablet 06/02/2023 06/10/2023 ORAL DAILY 1 TABLET 256111 RxNorm TAKE 1 TABLET ORAL DAILY predniSONE 20MG Oral Tablet 06/02/2023 06/10/2023 ORAL DAILY 3 TABLET 897493 RxNorm TAKE 3 TABLET ORAL DAILY Mucinex D 600MG-60mg Oral Tablet, Extended Release 06/02/2023 09/01/2023 ORAL TWICE A DAY 1 TABLET 6685603 RxNorm TAKE 1 TABLET ORAL TWICE A DAY FOR 3-5 DAYS Zithromax 250MG Oral Tablet 06/10/2023 09/01/2023 ORAL DAILY 1 TABLET 770530 RxNorm TAKE 2 TABLETS ORAL DAILY ON DAY 1 AND THEN1 TABLET DAILY ON DAYS 2-5 Ibuprofen 800MG Oral Tablet 08/28/2023 10/04/2023 ORAL EVERY 8 HOURS 1 TABLET 334350 RxNorm TAKE 1 TABLET ORAL EVERY 8 HOURS Penicillin VK 500MG Oral Tablet 08/28/2023 09/01/2023 ORAL THREE TIMES A DAY 1 TABLET 539569 RxNorm TAKE 1 TABLET ORAL THREE TIMES A DAY Tylenol 325MG Oral Tablet 09/01/2023 10/04/2023 ORAL NEEDED EVERY 6 HOURS 2 TABLET 273657 RxNorm TAKE 2 TABLET ORAL NEEDED EVERY 6 HOURS Anbesol Maximum Strength 20% Oromucosal Gel/Jelly 09/01/2023 10/04/2023 OROMUCOS AL THREE TIMES A DAY 1 RxNorm 1 OROMUCOSAL THREE TIMES A DAY Augmentin 875MG-125MG Oral Tablet 09/04/2023 10/04/2023 ORAL TWICE A DAY 1 TABLET 525984 RxNorm TAKE 1 TABLET ORAL TWICE A DAY Meclizine HCl 25MG Oral Tablet 10/04/2023 01/21/2024 ORAL NEEDED EVERY 8 HOURS 1 TABLET 585492 RxNorm TAKE 1 TABLET ORAL NEEDED EVERY 8 HOURS. No alcohol, recreation al drugs, driving or operating machinery while taking this. Augmentin 875MG-125MG Oral Tablet 10/26/2023 11/06/2023 ORAL TWICE A DAY 1 TABLET 343560 RxNorm TAKE 1 TABLET ORAL TWICE A DAY Augmentin 875MG-125MG Oral Tablet 11/06/2023 12/11/2023 ORAL TWICE A DAY 1 TABLET 613298 RxNorm TAKE 1 TABLET ORAL TWICE A DAY Tessalon Perles 100MG Oral Capsule, Liquid Filled 11/06/2023 12/11/2023 ORAL NEEDED EVERY 6 HOURS 1 CAPSULE 915261 RxNorm TAKE 1 CAPSULE ORAL NEEDED EVERY 6 HOURS Zithromax 250MG Oral Tablet 02/16/2024 03/29/2024 ORAL DAILY 1 TABLET 091121 RxNorm TAKE 2 TABLETS ORAL DAILY ON DAY 1 AND THEN1 TABLET DAILY ON DAYS 2-5 Keflex 500MG Oral Capsule 03/29/2024 04/06/2024 ORAL THREE TIMES A DAY 1 CAPSULE 040226 RxNorm TAKE 1 CAPSULE ORAL THREE TIMES A DAY Keflex 500MG Oral Capsule 04/06/2024 06/03/2024 ORAL THREE TIMES A DAY 1 CAPSULE 813343 RxNorm TAKE 1 CAPSULE ORAL THREE TIMES [...] Code Code System TYPE 2 DIABETES active 18454526 SNOM ED-CT HYPOTHYROIDISM active 04632247 SNOME D-CT DENTAL CARIES active 32278925 SNOMED -CT ACUTE BRONCHITIS active 22706216 SNO MED-CT SUPERFICIAL FOREIGN BODY, RIGHT FOOT, INITIAL ENCOUNTER active 111336385 SNOMED-CT ASTHMA 03/03/2022 resolved 799877855 SNOMED-CT ANXIETY 01/19/2022 resolved 74045369 SNOMED-CT HLD 09/10/2022 resolved 81934949 SNOMED-CT Allergies and Adverse Reactions Allergy Substance Reaction Severity Start Date Concern Status Code Code System SULFA (sulfonamide) Anaphylaxis (SNOMED-CT: 06402405) Active 96540238 SNOMED-CT MORPHINE Hives (SNOMED-CT: 316301443), Itching (SNOMED-CT: 500976089) Moderate Active 7052 RxNorm BEE POLLEN Anaphylaxis (SNOMED-CT: 58535597) Active 544801 RxNorm DILAUDID Hives (SNOMED-CT: 416601929), Itching (SNOMED-CT: 718050340) Moderate Active 270260 RxNorm Plan of Treatment Symptoms 08/09/2021 LAB DRAW 15MIN 05/30/2024 US PELVIC / TV 11/06/2023 CT CHEST W/O CONTRAST 03/13/2023 CT CHEST W/O CONTRAST 03/04/2023 SYMPTOMS 10/19/2022 LAB DRAW 15MIN 08/02/2022 LAB DRAW 15MIN 05/25/2022 SYMPTOMS 04/28/2022 EXPOSURE 12/07/2021 SYMPTOMS 11/22/2021 SYMPTOMS 2021 Encounters Encounter Diagnosis Start Date Code Code Sys tem Epigastric pain 06/18/2022 56768127 SNOMED-CT Personal Care Team Section Performer Name Performer Role Active Date Inactive Da te
--- OUTSIDE RECORDS SUMMARY | 2024-07-02 18:47 | XMS_ITS ---
Author Organization Unknown Address [address] [place] [address] [phone] Phone Care Team Providers Care Legal Coordinator Name Role Phone ELIUD SAHA Registered Nurse Unavailable TUAN Paredes Attending Unavailable CHAS Lopez Primary Unavailable UNLISTED PROVIDER - REQUESTED Xhandoff Un available Results CBC W/ DIFFERENTIAL* - Colle ct Date/Time: 07/16/2022 22:44 [facility] ID: [id number] [address] [place] [address], [address] LOINC: 47370-5 Test Value Unit Reference Range Code Code System Flag WBC 14.90 th/cmm L=5.00 H=10.00 6690-2 LOINC H NEUT % 66.2 % L=40.0 H=80.0 LYMPH % 28.3 % L=10.0 H=50.0 MONO % 3.1 % L=2.0 H=12.0 11392-2 LOINC EOS % 1.8 % L=0.0 H=8.0 BASO % 0.3 % L=0.0 H=3.0 IG % 0.3 % L=0.0 H=1.1 2514-8 LOINC NRBC % 0.0 % L=0.0 H=0.0 05053-7 LOINC NEUT abs count 9.9 th/cmm L=1.6 H=8.4 751-8 LOINC H LYMPH abs count 4.2 th/cmm L=1.5 H=4.0 731-0 LOINC H MONO abs count 0.5 th/cmm L=0.2 H=1.0 742-7 LOINC EOS abs count 0.3 th/cmm L=0.0 H=0.5 711-2 LOINC BASO abs count 0.0 th/cmm L=0.0 H=0.2 704-7 LOINC IG abs count 0.1 th/cmm L=0.0 H=0.1 93376-3 LOINC NRBC abs count 0.0 mil/cmm L=0.0 H=0.0 44406-1 LOINC RBC 4.61 mil/cmm L=3.90 H=5.40 789-8 [...] PANEL (BMP) - Collect Date/Time: 07/16/2022 22:44 [facility] ID: [id number] [address] [place] [address], [address] LOINC: 89344-5 Test Value Unit Reference Range Code Code System Flag GLUCOSE 140 mg/dL L=70 H=116 2345-7 LOINC H BUN 13 mg/dL L=6 H=25 3094-0 LOINC CREATININE 0.93 mg/dL L=0.51 H=0.95 2160-0 LOINC SODIUM SERUM 136 mmol/L L=136 H=145 2951-2 LOINC POTASSIUM SERUM 3.5 mmol/L L=3.4 H=5.2 2823-3 LOINC CHLORIDE SERUM 101 mmol/L L=96 H=110 2075-0 LOINC CARBON DIOXIDE (CO2) 28 mmol/L L=22 H=34 2028-9 LOINC ANION GAP 6.7 mmol/L 35717-7 LOINC CALCIUM SERUM 9.1 mg/dL L=8.2 H=10.2 58444-8 [facility] AGE 41 years eGFR (non-Afr.Amer.) 67 mL/min 83434-9 [facility] eGFR (Afr-U[place]ayan) 81 mL/min 94668-[address] [facility] [address] NECK W IV [...] disease as described above. First read by [facility] teleradiology. Dictated by: SUGEY LEGER MD Transcribed by: ALEX 07/19/2209:00 [id number] Electronically Reviewed and Signed By: ALIREZA LEGRE MD 07/19/22 19:11 Copy for: 185 HEALTH INFORMATION MGMT DISCHARGED Social History Type Status Start Date End Date Code Code Syst em Smoking History Current every day smoker 601552875 SNOMED CT Smoking History Former smoker 1489849 SNOMED CT Smoking History Current some day smoker 11/25/[id number] Sex Female Vital Signs Vital Sign Value Unit [place] Value [place] Unit Date/Time Recent/Initial? Code Code System Body Mass Index 47.66 kg/m2 07/16/2022 22:04 Initial 12813 -5 LOINC Systolic Blood Pressure 124 mm[Hg] [...] 71.00 in 07/16/2022 22:04 Initial 8302- 2 LOINC O2 Saturation 96 % 2021 01:08 Most Recent 84493 -5 LOINC O2 Saturation 96 % 2021 22:04 Initial 20457 -5 LOINC Pulse 80.0 /min 07/17/2022 01:08 Most Recent 8867- 4 LOINC Pulse 87.0 /min 07/16/2022 22:04 Initial 8867- 4 LOINC Respiration 16 /min 07/17/20 01:08 Most Recent 9279- 1 LOINC Respiration 18 /min 07/17/20 00:02 Initial 9279- 1 LOINC Temperature 37.5 Te[place] 99.5 F 07/16/20 22:04 Initial 8310- 5 LOINC Weight 155.00 kg 341.72 lbs 07/16/2022 22:04 Initial 12565 -7 [facility] Medications Medication Start Date End Date Route Frequency Dose Code Code System Medication Instructions Home Meds Penicillin VK 500MG Oral Tablet 07/08/2022 07/17/2022 ORAL FOUR TIMES A DAY 1 TABLET 797209 RxNorm TAKE 1 TABLET ORAL FOUR TIMES A DAY Ondansetron 4MG Oral Tablet, Disintegrating 07/17/2022 10/07/2022 ORAL NEEDED EVERY 6 HOURS 1 TABLET 060861 RxNorm TAKE 1 TABLET ORAL NEEDED EVERY 6 HOURS FOR Nausea/Vo miting HYDROcodone bitartrate-carlos taminophen 5MG-325MG Oral Tablet 07/17/2022 10/07/2022 ORAL NEEDED EVERY 4 HOURS 1 TABLET 460524 RxNorm TAKE 1 TABLET ORAL NEEDED EVERY 4 HOURS FOR Pain Ibuprofen 200MG Oral Tablet 07/17/2022 09/01/2023 ORAL EVERY 6 HOURS 3 TABLET 573562 RxNorm TAKE 3 TABLET ORAL EVERY 6 HOURS FOR 24 HOURS THEN NEEDED FOR PAIN Chlorhexidine Gluconate 0.12% Oral Liquid 07/17/2022 10/07/2022 ORAL THREE TIMES A DAY 5 mL RxNorm TAKE 5 mL ORAL SWISH AND SPIT THREE TIMES A DAY Bactrim DS 800MG-160MG Oral Tablet 09/04/2022 10/07/2022 ORAL TWICE A DAY 1 TABLET 509466 RxNorm TAKE 1 TABLET ORAL TWICE A DAY Benadryl Allergy 25MG Oral Tablet 09/11/2022 09/01/2023 ORAL EVERY 6 HOURS 2 TABLET 4499817 RxNorm TAKE 2 TABLET ORAL EVERY 6 HOURS Zofran 4MG Oral Tablet 10/07/2022 10/04/2023 ORAL NEEDED THREE TIMES A DAY 1 TABLET 685548 RxNorm TAKE 1 TABLET ORAL NEEDED THREE TIMES A DAY oxyCODONE HCl 5MG Oral Tablet 12/14/2022 09/01/2023 ORAL NEEDED EVERY 3 HOURS 5 MILLIGRAM S 7553919 RxNorm TAKE 5 MILLIGRAM S ORAL NEEDED EVERY 3 HOURS Atorvastatin Calcium 40MG Oral Tablet 12/14/2022 Unknown ORAL DAILY 40 MILLIGRAM S 935096 RxNorm TAKE 40 MILLIGRAM S ORAL DAILY Levothyroxine 200MCG Oral Tablet 12/14/2022 09/01/2023 ORAL DAILY 200 MCG 035668 RxNorm TAKE 200 MCG ORAL DAILY ProAir HFA 0.09MG/1Actuat ion Inhalation Suspension 12/14/2022 06/02/2023 INHALATI ON NEEDED 1 unit(s) 810551 RxNorm 1 EACH INHALATIO N NEEDED Trulicity 0.75MG/0.5ML Subcutaneous Solution 12/14/2022 09/01/2023 SUBCUTAN EOUS MONDAYS 1.5 MILLIGRAM S 9320617 RxNorm INJECT 1.5 MILLIGRAM S SUBCUTANE OUS MONDAYS metFORMIN HCl 500MG Oral Tablet 12/14/2022 06/01/2023 ORAL TWICE A DAY 1000 MILLIGRAM S 323316 RxNorm TAKE 1000 MILLIGRAM S ORAL TWICE A DAY predniSONE 20MG Oral Tablet 03/06/2023 06/02/2023 ORAL DAILY 1 TABLET 422927 RxNorm TAKE 1 TABLET ORAL DAILY Zithromax 250MG Oral Tablet 03/06/2023 06/02/2023 ORAL DAILY 1 TABLET 641015 RxNorm TAKE 2 TABLETS ORAL DAILY ON DAY 1 AND THEN1 TABLET DAILY ON DAYS 2-5 Albuterol Sulfate 0.09MG/1Actuat ion Inhalation Suspension 06/02/2023 Unknown INHALATI ON NEEDED EVERY 4 HOURS 2 PUFF 2086514 RxNorm 2 PUFF INHALATIO N EVERY 4 HOURS FOR 24 HOURS THEN NEEDED FOR Cough/Sandra rtness of breath Zithromax 250MG Oral Tablet 06/02/2023 06/10/2023 ORAL DAILY 1 TABLET 789646 RxNorm TAKE 1 TABLET ORAL DAILY predniSONE 20MG Oral Tablet 06/02/2023 06/10/2023 ORAL DAILY 3 TABLET 105312 RxNorm TAKE 3 TABLET ORAL DAILY Mucinex D 600MG-60mg Oral Tablet, Extended Release 06/02/2023 09/01/2023 ORAL TWICE A DAY 1 TABLET 1533143 RxNorm TAKE 1 TABLET ORAL TWICE A DAY FOR 3-5 DAYS Zithromax 250MG Oral Tablet 06/10/2023 09/01/2023 ORAL DAILY 1 TABLET 990636 RxNorm TAKE 2 TABLETS ORAL DAILY ON DAY 1 AND THEN1 TABLET DAILY ON DAYS 2-5 Ibuprofen 800MG Oral Tablet 08/28/2023 10/04/2023 ORAL EVERY 8 HOURS 1 TABLET 963744 RxNorm TAKE 1 TABLET ORAL EVERY 8 HOURS Penicillin VK 500MG Oral Tablet 08/28/2023 09/01/2023 ORAL THREE TIMES A DAY 1 TABLET 242220 RxNorm TAKE 1 TABLET ORAL THREE TIMES A DAY Tylenol 325MG Oral Tablet 09/01/2023 10/04/2023 ORAL NEEDED EVERY 6 HOURS 2 TABLET 710019 RxNorm TAKE 2 TABLET ORAL NEEDED EVERY 6 HOURS Anbesol Maximum Strength 20% Oromucosal Gel/Jelly 09/01/2023 10/04/2023 OROMUCOS AL THREE TIMES A DAY 1 RxNorm 1 OROMUCOSA L THREE TIMES A DAY Augmentin 875MG-125MG Oral Tablet 09/04/2023 10/04/2023 ORAL TWICE A DAY 1 TABLET 781722 RxNorm TAKE 1 TABLET ORAL TWICE A DAY Meclizine HCl 25MG Oral Tablet 10/04/2023 01/21/2024 ORAL NEEDED EVERY 8 HOURS 1 TABLET 269527 RxNorm TAKE 1 TABLET ORAL NEEDED EVERY 8 HOURS. No alcohol, recreatio nal drugs, driving or operating machinery while taking this. Augmentin 875MG-125MG Oral Tablet 10/26/2023 11/06/2023 ORAL TWICE A DAY 1 TABLET 265430 RxNorm TAKE 1 TABLET ORAL TWICE A DAY Augmentin 875MG-125MG Oral Tablet 11/06/2023 12/11/2023 ORAL TWICE A DAY 1 TABLET 075056 RxNorm TAKE 1 TABLET ORAL TWICE A DAY Tessalon Perles 100MG Oral Capsule, Liquid Filled 11/06/2023 12/11/2023 ORAL NEEDED EVERY 6 HOURS 1 CAPSULE 928704 RxNorm TAKE 1 CAPSULE ORAL NEEDED EVERY 6 HOURS Zithromax 250MG Oral Tablet 02/16/2024 03/29/2024 ORAL DAILY 1 TABLET 170134 RxNorm TAKE 2 TABLETS ORAL DAILY ON DAY 1 AND THEN1 TABLET DAILY ON DAYS 2-5 Keflex 500MG Oral Capsule 03/29/2024 04/06/2024 ORAL THREE TIMES A DAY 1 CAPSULE 761779 RxNorm TAKE 1 CAPSULE ORAL THREE TIMES A DAY Keflex 500MG Oral Capsule 04/06/2024 06/03/2024 ORAL THREE TIMES A DAY 1 CAPSULE 087166 RxNorm TAKE 1 CAPSULE ORAL THREE TIMES [...] Code Code System TYPE 2 DIABETES active 18196321 SNOM ED-CT HYPOTHYROIDISM active 18896964 SNOME D-CT DENTAL CARIES active 33654597 SNOMED -CT ACUTE BRONCHITIS active 95061675 SNO MED-CT SUPERFICIAL FOREIGN BODY, RIGHT FOOT, INITIAL ENCOUNTER active 338068684 SNOMED-CT ASTHMA 03/03/2022 resolved 788505389 SNOMED-CT ANXIETY 01/19/2022 resolved 07388780 SNOMED-CT HLD 09/10/2022 resolved 27102183 SNOMED-CT Allergies and Adverse Reactions Allergy Substance Reaction Severity Start Date Concern Status Code Code System SULFA (sulfonamide) Anaphylaxis (SNOMED-CT: 49815074) Active 86119755 SNOMED-CT MORPHINE Hives (SNOMED-CT: 468135475), Itching (SNOMED-CT: 471617962) Moderate Active 7052 RxNorm BEE POLLEN Anaphylaxis (SNOMED-CT: 21119561) Active 989010 RxNorm DILAUDID Hives (SNOMED-CT: 802233818), Itching (SNOMED-CT: 195820421) Moderate Active 013649 RxNorm Plan of Treatment Symptoms 08/09/2021 LAB [...]
--- OUTSIDE RECORDS SUMMARY | 2024-07-02 18:47 | XMS_ITS ---
Author Organization Unknown Address [address] [place] [address] [phone] Phone Care Team Providers Care Employment Specialist/Program Manager Name Role Phone CHAS Lopez Attending Unavailable Results COMPREHENSIVE METABOLIC PANE L (CMP) - Collect Date/Time: 08/02/2022 09:08 [facility] ID: [id number] [address] [place] [address], [address] LOINC: 40730-2 Test Value Unit Reference Range Code Code System Flag GLUCOSE 121 mg/dL L=70 H=116 2345-7 LOINC H BUN 7 mg/dL L=6 H=25 3094-0 LOINC CREATININE 0.69 mg/dL L=0.51 H=0.95 2160-0 LOINC SODIUM SERUM 138 mmol/L L=136 H=145 2951-2 LOINC POTASSIUM SERUM 3.8 mmol/L L=3.4 H=5.2 2823-3 LOINC CHLORIDE SERUM 103 mmol/L L=96 H=110 2075-0 LOINC CARBON DIOXIDE (CO2) 29 mmol/L L=22 H=34 2028-9 LOINC ANION GAP 6.4 mmol/L 69302-3 LOINC CALCIUM SERUM 9.1 mg/dL L=8.2 H=10.2 85806-6 LOINC BILIRUBIN TOTAL 0.3 mg/dL L=0.0 H=1.3 1975-2 LOINC ALK. PHOS. 93 U/L L=46 H=116 6768-6 LOINC SGOT (AST) 20 U/L L=15 H=37 1920-8 LOINC SGPT (ALT) 36 U/L L=12 H=78 1742-6 LOINC TOTAL PROTEIN 7.6 gm/dL L=6.0 H=8.0 2885-2 LOINC ALBUMIN 3.2 gm/dL L=3.4 H=5.0 1751-7 LOINC L AGE 41 years eGFR (non-Afr.Amer.) 94 mL/min 09789-5 LOINC eGFR (Afr-Tajik) 114 mL/min 19516-2 LOINC XR CHEST 2V PA AND LATERAL - Completed: 08/02/2022 09:57 LOINC: [facility] [place], [place] [address] PACS NUCLEAR SCIENTIST REPORT Patient Name: KESHA LAGOS MRN: Sex: : Age: [id number] F 1980 41 Account: StayType: Accession: Admit: [id number] O/P [id number] 08/02/2022 Ordered: Order ID: Ordering Provider: 08/02/2022 09:04 [id number] CRYS DOHERTY Completed: CompletedBy: Resulted: 08/02/2022 09:57 KT 08/03/2022 12:25 Study Description: XR CHEST 2V PA AND LATERAL Study Reason: PREOP FINDINGS: The cardiac and mediastinal contours have a normal appearance. The lungs are well inflated and clear. No infiltrate, effusion or pneumothorax is seen. No spine or rib fracture is identified. IMPRESSION: Negative chest x-ray. Report Digitally Signed by Sangita Pinedo on 08/03/2022 12:25 PM EDT Social History Type Status Start Date End Date Code Code Syst em Smoking History Current every day smoker 202326600 SNOMED CT Smoking History Former smoker 7724957 SNOMED CT Smoking History Current some day smoker 11/25/[address] Sex Female Medications Medication Start Date End Date Route Frequency Dose Code Code System Medication Instructions Home Meds Ondansetron 4MG Oral Tablet, Disintegrating 07/17/2022 10/07/2022 ORAL NEEDED EVERY 6 HOURS 1 TABLET 564985 RxNorm TAKE 1 TABLET ORAL NEEDED EVERY 6 HOURS FOR Nausea/Vomiting HYDROcodone bitartrate-acet aminophen 5MG-325MG Oral Tablet 07/17/2022 10/07/2022 ORAL NEEDED EVERY 4 HOURS 1 TABLET 892030 RxNorm TAKE 1 TABLET ORAL NEEDED EVERY 4 HOURS FOR Pain Ibuprofen 200MG Oral Tablet 07/17/2022 09/01/2023 ORAL EVERY 6 HOURS 3 TABLET 796233 RxNorm TAKE 3 TABLET ORAL EVERY 6 HOURS FOR 24 HOURS THEN NEEDED FOR PAIN Chlorhexidine Gluconate 0.12% Oral Liquid 07/17/2022 10/07/2022 ORAL THREE TIMES A DAY 5 mL RxNorm TAKE 5 mL ORAL SWISH AND SPIT THREE TIMES A DAY Bactrim DS 800MG-160MG Oral Tablet 09/04/2022 10/07/2022 ORAL TWICE A DAY 1 TABLET 398679 RxNorm TAKE 1 TABLET ORAL TWICE A DAY Benadryl Allergy 25MG Oral Tablet 09/11/2022 09/01/2023 ORAL EVERY 6 HOURS 2 TABLET 0263938 RxNorm TAKE 2 TABLET ORAL EVERY 6 HOURS Zofran 4MG Oral Tablet 10/07/2022 10/04/2023 ORAL NEEDED THREE TIMES A DAY 1 TABLET 326867 RxNorm TAKE 1 TABLET ORAL NEEDED THREE TIMES A DAY oxyCODONE HCl 5MG Oral Tablet 12/14/2022 09/01/2023 ORAL NEEDED EVERY 3 HOURS 5 MILLIGR AMS 7912139 RxNorm TAKE 5 MILLIGRAMS ORAL NEEDED EVERY 3 HOURS Atorvastatin Calcium 40MG Oral Tablet 12/14/2022 Unknown ORAL DAILY 40 MILLIGR AMS 538478 RxNorm TAKE 40 MILLIGRAMS ORAL DAILY Levothyroxine 200MCG Oral Tablet 12/14/2022 09/01/2023 ORAL DAILY 200 MCG 858295 RxNorm TAKE 200 M CG ORAL DAILY ProAir HFA 0.09MG/1Actuati on Inhalation Suspension 12/14/2022 06/02/2023 INHAL ATION NEEDED 1 unit(s) 072088 RxNorm 1 EACH INHALATION NEEDED Trulicity 0.75MG/0.5ML Subcutaneous Solution 12/14/2022 09/01/2023 SUBCU TANEO US MONDAYS 1.5 MILLIGR AMS 1586611 RxNorm INJECT 1.5 MILLIGRAMS SUBCUTANEOUS MONDAYS metFORMIN HCl 500MG Oral Tablet 12/14/2022 06/01/2023 ORAL TWICE A DAY 1000 MILLIGR AMS 067060 RxNorm TAKE 1000 MILLIGRAMS ORAL TWICE A DAY predniSONE 20MG Oral Tablet 03/06/2023 06/02/2023 ORAL DAILY 1 TABLET 525664 RxNorm TAKE 1 TABLET ORAL DAILY Zithromax 250MG Oral Tablet 03/06/2023 06/02/2023 ORAL DAILY 1 TABLET 153713 RxNorm TAKE 2 TABLETS ORAL DAILY ON DAY 1 AND THEN1 TABLET DAILY ON DAYS 2-5 Albuterol Sulfate 0.09MG/1Actuati on Inhalation Suspension 06/02/2023 Unknown INHAL ATION NEEDED EVERY 4 HOURS 2 PUFF 8886132 RxNorm 2 PUFF INHALATION EVERY 4 HOURS FOR 24 HOURS THEN NEEDED FOR Cough/Shortness of breath Zithromax 250MG Oral Tablet 06/02/2023 06/10/2023 ORAL DAILY 1 TABLET 334929 RxNorm TAKE 1 TABLET ORAL DAILY predniSONE 20MG Oral Tablet 06/02/2023 06/10/2023 ORAL DAILY 3 TABLET 728786 RxNorm TAKE 3 TABLET ORAL DAILY Mucinex D 600MG-60mg Oral Tablet, Extended Release 06/02/2023 09/01/2023 ORAL TWICE A DAY 1 TABLET 5504383 RxNorm TAKE 1 TABLET ORAL TWICE A DAY FOR 3-5 DAYS Zithromax 250MG Oral Tablet 06/10/2023 09/01/2023 ORAL DAILY 1 TABLET 132107 RxNorm TAKE 2 TABLETS ORAL DAILY ON DAY 1 AND THEN1 TABLET DAILY ON DAYS 2-5 Ibuprofen 800MG Oral Tablet 08/28/2023 10/04/2023 ORAL EVERY 8 HOURS 1 TABLET 905023 RxNorm TAKE 1 TABLET ORAL EVERY 8 HOURS Penicillin VK 500MG Oral Tablet 08/28/2023 09/01/2023 ORAL THREE TIMES A DAY 1 TABLET 389598 RxNorm TAKE 1 TABLET ORAL THREE TIMES A DAY Tylenol 325MG Oral Tablet 09/01/2023 10/04/2023 ORAL NEEDED EVERY 6 HOURS 2 TABLET 557266 RxNorm TAKE 2 TABLET ORAL NEEDED EVERY 6 HOURS Anbesol Maximum Strength 20% Oromucosal Gel/Jelly 09/01/2023 10/04/2023 OROMU COSAL THREE TIMES A DAY 1 RxNorm 1 OROMUCOSAL THREE TIMES A DAY Augmentin 875MG-125MG Oral Tablet 09/04/2023 10/04/2023 ORAL TWICE A DAY 1 TABLET 856823 RxNorm TAKE 1 TABLET ORAL TWICE A DAY Meclizine HCl 25MG Oral Tablet 10/04/2023 01/21/2024 ORAL NEEDED EVERY 8 HOURS 1 TABLET 259517 RxNorm TAKE 1 TABLET ORAL NEEDED EVERY 8 HOURS. No alcohol, recreational drugs, driving or operating machinery while taking this. Augmentin 875MG-125MG Oral Tablet 10/26/2023 11/06/2023 ORAL TWICE A DAY 1 TABLET 200404 RxNorm TAKE 1 TABLET ORAL TWICE A DAY Augmentin 875MG-125MG Oral Tablet 11/06/2023 12/11/2023 ORAL TWICE A DAY 1 TABLET 535573 RxNorm TAKE 1 TABLET ORAL TWICE A DAY Tessalon Perles 100MG Oral Capsule, Liquid Filled 11/06/2023 12/11/2023 ORAL NEEDED EVERY 6 HOURS 1 CAPSULE 361454 RxNorm TAKE 1 CAPSULE ORAL NEEDED EVERY 6 HOURS Zithromax 250MG Oral Tablet 02/16/2024 03/29/2024 ORAL DAILY 1 TABLET 090523 RxNorm TAKE 2 TABLETS ORAL DAILY ON DAY 1 AND THEN1 TABLET DAILY ON DAYS 2-5 Keflex 500MG Oral Capsule 03/29/2024 04/06/2024 ORAL THREE TIMES A DAY 1 CAPSULE 740083 RxNorm TAKE 1 CAPSULE ORAL THREE TIMES A DAY Keflex 500MG Oral Capsule 04/06/2024 06/03/2024 ORAL THREE TIMES A DAY 1 CAPSULE 728737 RxNorm TAKE 1 CAPSULE ORAL THREE TIMES [...] Code Code System TYPE 2 DIABETES active 58990616 SNOM ED-CT HYPOTHYROIDISM active 66070677 SNOME D-CT DENTAL CARIES active 13358134 SNOMED -CT ACUTE BRONCHITIS active 03604301 SNO MED-CT SUPERFICIAL FOREIGN BODY, RIGHT FOOT, INITIAL ENCOUNTER active 461504011 SNOMED-CT ASTHMA 03/03/2022 resolved 146026963 SNOMED-CT ANXIETY 01/19/2022 resolved 90070839 SNOMED-CT HLD 09/10/2022 resolved 81391053 SNOMED-CT Allergies and Adverse Reactions Allergy Substance Reaction Severity Start Date Concern Status Code Code System SULFA (sulfonamide) Anaphylaxis (SNOMED-CT: 64063640) Active 81945900 SNOMED-CT MORPHINE Hives (SNOMED-CT: 493199545), Itching (SNOMED-CT: 459659336) Moderate Active 7052 RxNorm BEE POLLEN Anaphylaxis (SNOMED-CT: 47236425) Active 899854 RxNorm DILAUDID Hives (SNOMED-CT: 988813055), Itching (SNOMED-CT: 613016770) Moderate Active 716407 RxNorm Plan of Treatment Symptoms 08/09/2021 LAB DRAW 15MIN 05/30/2024 US PELVIC / TV 11/06/2023 CT CHEST W/O CONTRAST 03/13/2023 CT CHEST W/O CONTRAST 03/04/2023 SYMPTOMS 10/19/2022 LAB DRAW 15MIN 08/02/2022 LAB DRAW 15MIN 05/25/2022 SYMPTOMS 04/28/2022 EXPOSURE 12/07/2021 SYMPTOMS 11/22/2021 SYMPTOMS 2021 Encounters Encounter Diagnosis Start Date Code Code Sys tem Encounter for other preprocedural examination 08/02/20 22 SNOMED-CT Personal Care Team Section Performer Name Performer Role Active Date Inactive Da te
--- OUTSIDE RECORDS SUMMARY | 2024-07-02 18:47 | XMS_ITS ---
Author Organization Unknown Address [address] [place] [address] [phone] Phone Care Team Providers Care Body Care Manager Name Role Phone ELIUD SAHA Registered Nurse Unavailable PUNEET Martin Attending Unavailable CHAS Lopez Primary Unavailable UNLISTED PROVIDER - REQUESTED Xhandoff Un available Social History Type Status Start Date End Date Code Code Syst em Smoking History Current every day smoker 214803993 SNOMED CT Smoking History Former smoker 3791948 SNOMED CT Smoking History Current some day smoker 11/25/[id number] Sex Female Vital Signs Vital Sign Value Unit [place] Value [place] Unit Date/Time Recent/Initial? Code Code System Body Mass Index 47.42 kg/m2 09/10/2022 22:33 Initial 02048 -5 LOINC Systolic Blood Pressure 123 mm[Hg] [...] Saturation 96 % 2021 00:45 Most Recent 62183 -5 LOINC O2 Saturation 99 % 2021 22:33 Initial 07196 -5 LOINC Pulse 105.0 /min 09/11/2022 00:45 Most Recent 8867- 4 [facility] Pulse 136.0 /min 09/10/2022 22:33 Initial 8867- 4 LOINC Respiration 21 /min 09/11/20 00:15 Most Recent 9279- 1 LOINC Respiration 26 /min 09/10/20 22 22:33 Initial 9279- 1 [facility] Weight 154.22 kg 340.00 lbs 09/10/2022 22:33 Initial 51784 -7 [facility] Medications Medication Start Date End Date Route Frequency Dose Code Code System Medication Instructions Home Meds Ondansetron 4MG Oral Tablet, Disintegrating 07/17/2022 10/07/2022 ORAL NEEDED EVERY 6 HOURS 1 TABLET 863922 RxNorm TAKE 1 TABLET ORAL NEEDED EVERY 6 HOURS FOR Nausea/Vomiting HYDROcodone bitartrate-acet aminophen 5MG-325MG Oral Tablet 07/17/2022 10/07/2022 ORAL NEEDED EVERY 4 HOURS 1 TABLET 074877 RxNorm TAKE 1 TABLET ORAL NEEDED EVERY 4 HOURS FOR Pain Ibuprofen 200MG Oral Tablet 07/17/2022 09/01/2023 ORAL EVERY 6 HOURS 3 TABLET 398544 RxNorm TAKE 3 TABLET ORAL EVERY 6 HOURS FOR 24 HOURS THEN NEEDED FOR PAIN Chlorhexidine Gluconate 0.12% Oral Liquid 07/17/2022 10/07/2022 ORAL THREE TIMES A DAY 5 mL RxNorm TAKE 5 mL ORAL SWISH AND SPIT THREE TIMES A DAY Bactrim DS 800MG-160MG Oral Tablet 09/04/2022 10/07/2022 ORAL TWICE A DAY 1 TABLET 308236 RxNorm TAKE 1 TABLET ORAL TWICE A DAY Benadryl Allergy 25MG Oral Tablet 09/11/2022 09/01/2023 ORAL EVERY 6 HOURS 2 TABLET 7447212 RxNorm TAKE 2 TABLET ORAL EVERY 6 HOURS Zofran 4MG Oral Tablet 10/07/2022 10/04/2023 ORAL NEEDED THREE TIMES A DAY 1 TABLET 230094 RxNorm TAKE 1 TABLET ORAL NEEDED THREE TIMES A DAY oxyCODONE HCl 5MG Oral Tablet 12/14/2022 09/01/2023 ORAL NEEDED EVERY 3 HOURS 5 MILLIGR AMS 2913480 RxNorm TAKE 5 MILLIGRAMS ORAL NEEDED EVERY 3 HOURS Atorvastatin Calcium 40MG Oral Tablet 12/14/2022 Unknown ORAL DAILY 40 MILLIGR AMS 766767 RxNorm TAKE 40 MILLIGRAMS ORAL DAILY Levothyroxine 200MCG Oral Tablet 12/14/2022 09/01/2023 ORAL DAILY 200 MCG 768085 RxNorm TAKE 200 M CG ORAL DAILY ProAir HFA 0.09MG/1Actuati on Inhalation Suspension 12/14/2022 06/02/2023 INHAL ATION NEEDED 1 unit(s) 802094 RxNorm 1 EACH INHALATION NEEDED Trulicity 0.75MG/0.5ML Subcutaneous Solution 12/14/2022 09/01/2023 SUBCU TANEO US MONDAYS 1.5 MILLIGR AMS 3797970 RxNorm INJECT 1.5 MILLIGRAMS SUBCUTANEOUS MONDAYS metFORMIN HCl 500MG Oral Tablet 12/14/2022 06/01/2023 ORAL TWICE A DAY 1000 MILLIGR AMS 628666 RxNorm TAKE 1000 MILLIGRAMS ORAL TWICE A DAY predniSONE 20MG Oral Tablet 03/06/2023 06/02/2023 ORAL DAILY 1 TABLET 611212 RxNorm TAKE 1 TABLET ORAL DAILY Zithromax 250MG Oral Tablet 03/06/2023 06/02/2023 ORAL DAILY 1 TABLET 513690 RxNorm TAKE 2 TABLETS ORAL DAILY ON DAY 1 AND THEN1 TABLET DAILY ON DAYS 2-5 Albuterol Sulfate 0.09MG/1Actuati on Inhalation Suspension 06/02/2023 Unknown INHAL ATION NEEDED EVERY 4 HOURS 2 PUFF 7266275 RxNorm 2 PUFF INHALATION EVERY 4 HOURS FOR 24 HOURS THEN NEEDED FOR Cough/Shortness of breath Zithromax 250MG Oral Tablet 06/02/2023 06/10/2023 ORAL DAILY 1 TABLET 072653 RxNorm TAKE 1 TABLET ORAL DAILY predniSONE 20MG Oral Tablet 06/02/2023 06/10/2023 ORAL DAILY 3 TABLET 219130 RxNorm TAKE 3 TABLET ORAL DAILY Mucinex D 600MG-60mg Oral Tablet, Extended Release 06/02/2023 09/01/2023 ORAL TWICE A DAY 1 TABLET 7058447 RxNorm TAKE 1 TABLET ORAL TWICE A DAY FOR 3-5 DAYS Zithromax 250MG Oral Tablet 06/10/2023 09/01/2023 ORAL DAILY 1 TABLET 575446 RxNorm TAKE 2 TABLETS ORAL DAILY ON DAY 1 AND THEN1 TABLET DAILY ON DAYS 2-5 Ibuprofen 800MG Oral Tablet 08/28/2023 10/04/2023 ORAL EVERY 8 HOURS 1 TABLET 621241 RxNorm TAKE 1 TABLET ORAL EVERY 8 HOURS Penicillin VK 500MG Oral Tablet 08/28/2023 09/01/2023 ORAL THREE TIMES A DAY 1 TABLET 967446 RxNorm TAKE 1 TABLET ORAL THREE TIMES A DAY Tylenol 325MG Oral Tablet 09/01/2023 10/04/2023 ORAL NEEDED EVERY 6 HOURS 2 TABLET 052585 RxNorm TAKE 2 TABLET ORAL NEEDED EVERY 6 HOURS Anbesol Maximum Strength 20% Oromucosal Gel/Jelly 09/01/2023 10/04/2023 OROMU COSAL THREE TIMES A DAY 1 RxNorm 1 OROMUCOSAL THREE TIMES A DAY Augmentin 875MG-125MG Oral Tablet 09/04/2023 10/04/2023 ORAL TWICE A DAY 1 TABLET 259876 RxNorm TAKE 1 TABLET ORAL TWICE A DAY Meclizine HCl 25MG Oral Tablet 10/04/2023 01/21/2024 ORAL NEEDED EVERY 8 HOURS 1 TABLET 855905 RxNorm TAKE 1 TABLET ORAL NEEDED EVERY 8 HOURS. No alcohol, recreational drugs, driving or operating machinery while taking this. Augmentin 875MG-125MG Oral Tablet 10/26/2023 11/06/2023 ORAL TWICE A DAY 1 TABLET 068882 RxNorm TAKE 1 TABLET ORAL TWICE A DAY Augmentin 875MG-125MG Oral Tablet 11/06/2023 12/11/2023 ORAL TWICE A DAY 1 TABLET 420047 RxNorm TAKE 1 TABLET ORAL TWICE A DAY Tessalon Perles 100MG Oral Capsule, Liquid Filled 11/06/2023 12/11/2023 ORAL NEEDED EVERY 6 HOURS 1 CAPSULE 565751 RxNorm TAKE 1 CAPSULE ORAL NEEDED EVERY 6 HOURS Zithromax 250MG Oral Tablet 02/16/2024 03/29/2024 ORAL DAILY 1 TABLET 796477 RxNorm TAKE 2 TABLETS ORAL DAILY ON DAY 1 AND THEN1 TABLET DAILY ON DAYS 2-5 Keflex 500MG Oral Capsule 03/29/2024 04/06/2024 ORAL THREE TIMES A DAY 1 CAPSULE 978254 RxNorm TAKE 1 CAPSULE ORAL THREE TIMES A DAY Keflex 500MG Oral Capsule 04/06/2024 06/03/2024 ORAL THREE TIMES A DAY 1 CAPSULE 041276 RxNorm TAKE 1 CAPSULE ORAL THREE TIMES [...] Code Code System TYPE 2 DIABETES active 55573585 SNOM ED-CT HYPOTHYROIDISM active 30120115 SNOME D-CT DENTAL CARIES active 49747825 SNOMED -CT ACUTE BRONCHITIS active 77112594 SNO MED-CT SUPERFICIAL FOREIGN BODY, RIGHT FOOT, INITIAL ENCOUNTER active 360786740 SNOMED-CT ASTHMA 03/03/2022 resolved 395670526 SNOMED-CT ANXIETY 01/19/2022 resolved 50144340 SNOMED-CT HLD 09/10/2022 resolved 36449475 SNOMED-CT Allergies and Adverse Reactions Allergy Substance Reaction Severity Start Date Concern Status Code Code System SULFA (sulfonamide) Anaphylaxis (SNOMED-CT: 06265988) Active 13898594 SNOMED-CT MORPHINE Hives (SNOMED-CT: 981720044), Itching (SNOMED-CT: 355990460) Moderate Active 7052 RxNorm BEE POLLEN Anaphylaxis (SNOMED-CT: 21221925) Active 258045 RxNorm DILAUDID Hives (SNOMED-CT: 037608493), Itching (SNOMED-CT: 269135358) Moderate Active 489664 RxNorm Plan of Treatment Symptoms 08/09/2021 LAB [...]
--- OUTSIDE RECORDS SUMMARY | 2024-07-02 18:47 | XMS_ITS ---
Author Organization Unknown Address [address] [place] [address] [phone] Phone Care Team Providers Care Watchstander Name Role Phone ROSLYN BURNS Registered Nurse Unavailable TUAN Paredes Attending Unavailable CHAS Lopez Primary Unavailable UNLISTED PROVIDER - REQUESTED Xhandoff Un available Social History Type Status Start Date End Date Code Code Syst em Smoking History Current every day smoker 853945576 SNOMED CT Smoking History Former smoker 3984436 SNOMED CT Smoking History Current some day smoker 11/25/[id number] Sex Female Vital Signs Vital Sign Value Unit [place] Value [place] Unit Date/Time Recent/Initial? Code Code System Body Mass Index 41.84 kg/m2 09/04/2022 21:29 Initial 60617 -5 LOINC Systolic Blood Pressure 127 mm[Hg] 09/04/2022 21:29 Initial 8480- 6 LOINC Diastolic Blood Pressure 99 mm[Hg] 09/04/2022 21:29 Initial 8462- 4 LOINC Body Surface Area 2.61 m2 09/04/2022 21:29 Initial 3140- 1 LOINC Height 180.340 0 cm 71.00 in 09/04/2022 21:29 Initial 8302- 2 LOINC O2 Saturation 93 % 2021 21:29 Initial 53064 -5 LOINC Pulse 86.0 /min 09/04/2022 21:29 Initial 8867- 4 LOINC Respiration 18 /min 09/04/20 21:29 Initial 9279- 1 LOINC Temperature 36.8 Teodora 98.2 F 09/04/20 21:29 Initial 8310- 5 LOINC Weight 136.08 kg 300.00 lbs 09/04/2022 21:29 Initial 14179 -7 LOINC Medications Medication Start Date End Date Route Frequency Dose Code Code System Medication Instructions Home Meds Ondansetron 4MG Oral Tablet, Disintegrating 07/17/2022 10/07/2022 ORAL NEEDED EVERY 6 HOURS 1 TABLET 593115 RxNorm TAKE 1 TABLET ORAL NEEDED EVERY 6 HOURS FOR Nausea/Vomiting HYDROcodone bitartrate-acet aminophen 5MG-325MG Oral Tablet 07/17/2022 10/07/2022 ORAL NEEDED EVERY 4 HOURS 1 TABLET 586454 RxNorm TAKE 1 TABLET ORAL NEEDED EVERY 4 HOURS FOR Pain Ibuprofen 200MG Oral Tablet 07/17/2022 09/01/2023 ORAL EVERY 6 HOURS 3 TABLET 675752 RxNorm TAKE 3 TABLET ORAL EVERY 6 HOURS FOR 24 HOURS THEN NEEDED FOR PAIN Chlorhexidine Gluconate 0.12% Oral Liquid 07/17/2022 10/07/2022 ORAL THREE TIMES A DAY 5 mL RxNorm TAKE 5 mL ORAL SWISH AND SPIT THREE TIMES A DAY Bactrim DS 800MG-160MG Oral Tablet 09/04/2022 10/07/2022 ORAL TWICE A DAY 1 TABLET 782322 RxNorm TAKE 1 TABLET ORAL TWICE A DAY Benadryl Allergy 25MG Oral Tablet 09/11/2022 09/01/2023 ORAL EVERY 6 HOURS 2 TABLET 4785539 RxNorm TAKE 2 TABLET ORAL EVERY 6 HOURS Zofran 4MG Oral Tablet 10/07/2022 10/04/2023 ORAL NEEDED THREE TIMES A DAY 1 TABLET 474576 RxNorm TAKE 1 TABLET ORAL NEEDED THREE TIMES A DAY oxyCODONE HCl 5MG Oral Tablet 12/14/2022 09/01/2023 ORAL NEEDED EVERY 3 HOURS 5 MILLIGR AMS 6784600 RxNorm TAKE 5 MILLIGRAMS ORAL NEEDED EVERY 3 HOURS Atorvastatin Calcium 40MG Oral Tablet 12/14/2022 Unknown ORAL DAILY 40 MILLIGR AMS 978835 RxNorm TAKE 40 MILLIGRAMS ORAL DAILY Levothyroxine 200MCG Oral Tablet 12/14/2022 09/01/2023 ORAL DAILY 200 MCG 672304 RxNorm TAKE 200 M CG ORAL DAILY ProAir HFA 0.09MG/1Actuati on Inhalation Suspension 12/14/2022 06/02/2023 INHAL ATION NEEDED 1 unit(s) 344459 RxNorm 1 EACH INHALATION NEEDED Trulicity 0.75MG/0.5ML Subcutaneous Solution 12/14/2022 09/01/2023 SUBCU TANEO US MONDAYS 1.5 MILLIGR AMS 2010185 RxNorm INJECT 1.5 MILLIGRAMS SUBCUTANEOUS MONDAYS metFORMIN HCl 500MG Oral Tablet 12/14/2022 06/01/2023 ORAL TWICE A DAY 1000 MILLIGR AMS 765991 RxNorm TAKE 1000 MILLIGRAMS ORAL TWICE A DAY predniSONE 20MG Oral Tablet 03/06/2023 06/02/2023 ORAL DAILY 1 TABLET 000793 RxNorm TAKE 1 TABLET ORAL DAILY Zithromax 250MG Oral Tablet 03/06/2023 06/02/2023 ORAL DAILY 1 TABLET 103702 RxNorm TAKE 2 TABLETS ORAL DAILY ON DAY 1 AND THEN1 TABLET DAILY ON DAYS 2-5 Albuterol Sulfate 0.09MG/1Actuati on Inhalation Suspension 06/02/2023 Unknown INHAL ATION NEEDED EVERY 4 HOURS 2 PUFF 4231745 RxNorm 2 PUFF INHALATION EVERY 4 HOURS FOR 24 HOURS THEN NEEDED FOR Cough/Shortness of breath Zithromax 250MG Oral Tablet 06/02/2023 06/10/2023 ORAL DAILY 1 TABLET 058690 RxNorm TAKE 1 TABLET ORAL DAILY predniSONE 20MG Oral Tablet 06/02/2023 06/10/2023 ORAL DAILY 3 TABLET 353485 RxNorm TAKE 3 TABLET ORAL DAILY Mucinex D 600MG-60mg Oral Tablet, Extended Release 06/02/2023 09/01/2023 ORAL TWICE A DAY 1 TABLET 2504812 RxNorm TAKE 1 TABLET ORAL TWICE A DAY FOR 3-5 DAYS Zithromax 250MG Oral Tablet 06/10/2023 09/01/2023 ORAL DAILY 1 TABLET 627266 RxNorm TAKE 2 TABLETS ORAL DAILY ON DAY 1 AND THEN1 TABLET DAILY ON DAYS 2-5 Ibuprofen 800MG Oral Tablet 08/28/2023 10/04/2023 ORAL EVERY 8 HOURS 1 TABLET 472482 RxNorm TAKE 1 TABLET ORAL EVERY 8 HOURS Penicillin VK 500MG Oral Tablet 08/28/2023 09/01/2023 ORAL THREE TIMES A DAY 1 TABLET 395912 RxNorm TAKE 1 TABLET ORAL THREE TIMES A DAY Tylenol 325MG Oral Tablet 09/01/2023 10/04/2023 ORAL NEEDED EVERY 6 HOURS 2 TABLET 574738 RxNorm TAKE 2 TABLET ORAL NEEDED EVERY 6 HOURS Anbesol Maximum Strength 20% Oromucosal Gel/Jelly 09/01/2023 10/04/2023 OROMU COSAL THREE TIMES A DAY 1 RxNorm 1 OROMUCOSAL THREE TIMES A DAY Augmentin 875MG-125MG Oral Tablet 09/04/2023 10/04/2023 ORAL TWICE A DAY 1 TABLET 189163 RxNorm TAKE 1 TABLET ORAL TWICE A DAY Meclizine HCl 25MG Oral Tablet 10/04/2023 01/21/2024 ORAL NEEDED EVERY 8 HOURS 1 TABLET 790739 RxNorm TAKE 1 TABLET ORAL NEEDED EVERY 8 HOURS. No alcohol, recreational drugs, driving or operating machinery while taking this. Augmentin 875MG-125MG Oral Tablet 10/26/2023 11/06/2023 ORAL TWICE A DAY 1 TABLET 709358 RxNorm TAKE 1 TABLET ORAL TWICE A DAY Augmentin 875MG-125MG Oral Tablet 11/06/2023 12/11/2023 ORAL TWICE A DAY 1 TABLET 408436 RxNorm TAKE 1 TABLET ORAL TWICE A DAY Tessalon Perles 100MG Oral Capsule, Liquid Filled 11/06/2023 12/11/2023 ORAL NEEDED EVERY 6 HOURS 1 CAPSULE 509106 RxNorm TAKE 1 CAPSULE ORAL NEEDED EVERY 6 HOURS Zithromax 250MG Oral Tablet 02/16/2024 03/29/2024 ORAL DAILY 1 TABLET 084680 RxNorm TAKE 2 TABLETS ORAL DAILY ON DAY 1 AND THEN1 TABLET DAILY ON DAYS 2-5 Keflex 500MG Oral Capsule 03/29/2024 04/06/2024 ORAL THREE TIMES A DAY 1 CAPSULE 526378 RxNorm TAKE 1 CAPSULE ORAL THREE TIMES A DAY Keflex 500MG Oral Capsule 04/06/2024 06/03/2024 ORAL THREE TIMES A DAY 1 CAPSULE 638485 RxNorm TAKE 1 CAPSULE ORAL THREE TIMES [...] Code Code System TYPE 2 DIABETES active 65561838 SNOM ED-CT HYPOTHYROIDISM active 70345537 SNOME D-CT DENTAL CARIES active 22524446 SNOMED -CT ACUTE BRONCHITIS active 69709658 SNO MED-CT SUPERFICIAL FOREIGN BODY, RIGHT FOOT, INITIAL ENCOUNTER active 711506719 SNOMED-CT ASTHMA 03/03/2022 resolved 549519821 SNOMED-CT ANXIETY 01/19/2022 resolved 56891240 SNOMED-CT HLD 09/10/2022 resolved 20989711 SNOMED-CT Allergies and Adverse Reactions Allergy Substance Reaction Severity Start Date Concern Status Code Code System SULFA (sulfonamide) Anaphylaxis (SNOMED-CT: 33758577) Active 57305301 SNOMED-CT MORPHINE Hives (SNOMED-CT: 897286476), Itching (SNOMED-CT: 720887358) Moderate Active 7052 RxNorm BEE POLLEN Anaphylaxis (SNOMED-CT: 86731402) Active 065148 RxNorm DILAUDID Hives (SNOMED-CT: 727986469), Itching (SNOMED-CT: 688066988) Moderate Active 798825 RxNorm Plan of Treatment Symptoms 08/09/2021 LAB [...]
--- OUTSIDE RECORDS SUMMARY | 2024-07-02 18:48 | XMS_ITS ---
Author Organization Unknown Address [address] [place] [address] [phone] Phone Care Team Providers Care Ct Scan Technologist Name Role Phone PHUONG Molina Attending Unavailable CHAS Lopez Primary Unavailable [facility] - Brijesh ect Date/Time: 10/19/2022 09:49 [facility] ID: [id number] [address] [place], [place], [id number] LOINC: 15633-7 Test Value Unit Reference Range Code Code System Flag Tier- SYMPTOMS 76768-6 LOINC SARS COV2 RNA: NEGATIVE REFERENCE RANGE: NEGAT 77940-7 L OINC Social History Type Status Start Date End Date Code Code Syst em Smoking History Current every day smoker 355368520 SNOMED CT Smoking History Former smoker 1145049 SNOMED CT Smoking History Current some day smoker 11/25/[id number] Sex Female Medications Medication Start Date End Date Route Frequency Dose Code Code System Medication Instructions Home Meds Ibuprofen 200MG Oral Tablet 07/17/2022 09/01/2023 ORAL EVERY 6 HOURS 3 TABLET 778828 RxNorm TAKE 3 TABLET ORAL EVERY 6 HOURS FOR 24 HOURS THEN NEEDED FOR PAIN Benadryl Allergy 25MG Oral Tablet 09/11/2022 09/01/2023 ORAL EVERY 6 HOURS 2 TABLET 1638259 RxNorm TAKE 2 TABLET ORAL EVERY 6 HOURS Zofran 4MG Oral Tablet 10/07/2022 10/04/2023 ORAL NEEDED THREE TIMES A DAY 1 TABLET 015801 RxNorm TAKE 1 TABLET ORAL NEEDED THREE TIMES A DAY oxyCODONE HCl 5MG Oral Tablet 12/14/2022 09/01/2023 ORAL NEEDED EVERY 3 HOURS 5 MILLIGRAMS 7853826 RxNorm TAKE 5 MILLIGRAM S ORAL NEEDED EVERY 3 HOURS Atorvastatin Calcium 40MG Oral Tablet 12/14/2022 Unknown ORAL DAILY 40 MILLIGRAMS 200283 RxNorm TAKE 40 MILLIGRAM S ORAL DAILY Levothyroxine 200MCG Oral Tablet 12/14/2022 09/01/2023 ORAL DAILY 200 MCG 929513 RxNorm TAKE 200 MCG ORAL DAILY ProAir HFA 0.09MG/1Actua tion Inhalation Suspension 12/14/2022 06/02/2023 INHALATI ON NEEDED 1 unit(s) 511438 RxNorm 1 EACH INHALATIO N NEEDED Trulicity 0.75MG/0.5ML Subcutaneous Solution 12/14/2022 09/01/2023 SUBCUTAN EOUS MONDAYS 1.5 MILLIGRAMS 9552083 RxNorm INJECT 1.5 MILLIGRAM S SUBCUTANE OUS MONDAYS metFORMIN HCl 500MG Oral Tablet 12/14/2022 06/01/2023 ORAL TWICE A DAY 1000 MILLIGRAMS 083186 RxNorm TAKE 1000 MILLIGRAM S ORAL TWICE A DAY predniSONE 20MG Oral Tablet 03/06/2023 06/02/2023 ORAL DAILY 1 TABLET 709931 RxNorm TAKE 1 TABLET ORAL DAILY Zithromax 250MG Oral Tablet 03/06/2023 06/02/2023 ORAL DAILY 1 TABLET 706615 RxNorm TAKE 2 TABLETS ORAL DAILY ON DAY 1 AND THEN1 TABLET DAILY ON DAYS 2-5 Albuterol Sulfate 0.09MG/1Actua tion Inhalation Suspension 06/02/2023 Unknown INHALATI ON NEEDED EVERY 4 HOURS 2 PUFF 9088239 RxNorm 2 PUFF INHALATIO N EVERY 4 HOURS FOR 24 HOURS THEN NEEDED FOR Cough/Sandra rtness of breath Zithromax 250MG Oral Tablet 06/02/2023 06/10/2023 ORAL DAILY 1 TABLET 248795 RxNorm TAKE 1 TABLET ORAL DAILY predniSONE 20MG Oral Tablet 06/02/2023 06/10/2023 ORAL DAILY 3 TABLET 165034 RxNorm TAKE 3 TABLET ORAL DAILY Mucinex D 600MG-60mg Oral Tablet, Extended Release 06/02/2023 09/01/2023 ORAL TWICE A DAY 1 TABLET 0756571 RxNorm TAKE 1 TABLET ORAL TWICE A DAY FOR 3-5 DAYS Zithromax 250MG Oral Tablet 06/10/2023 09/01/2023 ORAL DAILY 1 TABLET 584455 RxNorm TAKE 2 TABLETS ORAL DAILY ON DAY 1 AND THEN1 TABLET DAILY ON DAYS 2-5 Ibuprofen 800MG Oral Tablet 08/28/2023 10/04/2023 ORAL EVERY 8 HOURS 1 TABLET 881995 RxNorm TAKE 1 TABLET ORAL EVERY 8 HOURS Penicillin VK 500MG Oral Tablet 08/28/2023 09/01/2023 ORAL THREE TIMES A DAY 1 TABLET 873632 RxNorm TAKE 1 TABLET ORAL THREE TIMES A DAY Tylenol 325MG Oral Tablet 09/01/2023 10/04/2023 ORAL NEEDED EVERY 6 HOURS 2 TABLET 576386 RxNorm TAKE 2 TABLET ORAL NEEDED EVERY 6 HOURS Anbesol Maximum Strength 20% Oromucosal Gel/Jelly 09/01/2023 10/04/2023 OROMUCOS AL THREE TIMES A DAY 1 RxNorm 1 OROMUCOSA L THREE TIMES A DAY Augmentin 875MG-125MG Oral Tablet 09/04/2023 10/04/2023 ORAL TWICE A DAY 1 TABLET 445196 RxNorm TAKE 1 TABLET ORAL TWICE A DAY Meclizine HCl 25MG Oral Tablet 10/04/2023 01/21/2024 ORAL NEEDED EVERY 8 HOURS 1 TABLET 193750 RxNorm TAKE 1 TABLET ORAL NEEDED EVERY 8 HOURS. No alcohol, recreatio nal drugs, driving or operating machinery while taking this. Augmentin 875MG-125MG Oral Tablet 10/26/2023 11/06/2023 ORAL TWICE A DAY 1 TABLET 668043 RxNorm TAKE 1 TABLET ORAL TWICE A DAY Augmentin 875MG-125MG Oral Tablet 11/06/2023 12/11/2023 ORAL TWICE A DAY 1 TABLET 738474 RxNorm TAKE 1 TABLET ORAL TWICE A DAY Tessalon Perles 100MG Oral Capsule, Liquid Filled 11/06/2023 12/11/2023 ORAL NEEDED EVERY 6 HOURS 1 CAPSULE 709159 RxNorm TAKE 1 CAPSULE ORAL NEEDED EVERY 6 HOURS Zithromax 250MG Oral Tablet 02/16/2024 03/29/2024 ORAL DAILY 1 TABLET 093873 RxNorm TAKE 2 TABLETS ORAL DAILY ON DAY 1 AND THEN1 TABLET DAILY ON DAYS 2-5 Keflex 500MG Oral Capsule 03/29/2024 04/06/2024 ORAL THREE TIMES A DAY 1 CAPSULE 601071 RxNorm TAKE 1 CAPSULE ORAL THREE TIMES A DAY Keflex 500MG Oral Capsule 04/06/2024 06/03/2024 ORAL THREE TIMES A DAY 1 CAPSULE 866133 RxNorm TAKE 1 CAPSULE ORAL THREE TIMES [...] Code Code System TYPE 2 DIABETES active 06641428 SNOM ED-CT HYPOTHYROIDISM active 22701728 SNOME D-CT DENTAL CARIES active 35849061 SNOMED -CT ACUTE BRONCHITIS active 06261772 SNO MED-CT SUPERFICIAL FOREIGN BODY, RIGHT FOOT, INITIAL ENCOUNTER active 539896690 SNOMED-CT ASTHMA 03/03/2022 resolved 840131233 SNOMED-CT ANXIETY 01/19/2022 resolved 75444499 SNOMED-CT HLD 09/10/2022 resolved 29629739 SNOMED-CT Allergies and Adverse Reactions Allergy Substance Reaction Severity Start Date Concern Status Code Code System SULFA (sulfonamide) Anaphylaxis (SNOMED-CT: 33564006) Active 99364200 SNOMED-CT MORPHINE Hives (SNOMED-CT: 381185821), Itching (SNOMED-CT: 806474447) Moderate Active 7052 RxNorm BEE POLLEN Anaphylaxis (SNOMED-CT: 39204820) Active 467743 RxNorm DILAUDID Hives (SNOMED-CT: 903162700), Itching (SNOMED-CT: 468259878) Moderate Active 006647 RxNorm Plan of Treatment Symptoms 08/09/2021 LAB DRAW 15MIN 05/30/2024 US PELVIC / TV 11/06/2023 CT CHEST W/O CONTRAST 03/13/2023 CT CHEST W/O CONTRAST 03/04/2023 SYMPTOMS 10/19/2022 LAB DRAW 15MIN 08/02/2022 LAB DRAW 15MIN 05/25/2022 SYMPTOMS 04/28/2022 EXPOSURE 12/07/2021 SYMPTOMS 11/22/2021 SYMPTOMS 2021 Encounters Encounter Diagnosis Start Date Code Code Sys tem Exposure to SARS-CoV-2 10/19/2022 [id number] IGNACIO D-CT Personal Care Team Section Performer Name Performer Role Active Date Inactive Da te
--- OUTSIDE RECORDS SUMMARY | 2024-07-02 18:48 | XMS_ITS ---
Author Organization Unknown Address [address] [place] [phone] Phone Care Team Providers Care Sap Bpc Developer Name Role Phone CARMENCITA SUMMERS Registered Nurse Unavailable JAVIER Larson Attending Unavailable CHAS Lopez Primary Unavailable UNLISTED PROVIDER - REQUESTED Xhandoff Un available Results GLUCOSE FINGER/HEEL CAPILLAR Y - Collect Date/Time: 10/07/2022 14:38 [facility] ID: [id number] [address] [place] [address], [phone] LOINC: 43244-7 Test Value Unit Reference Range Code Code System Flag GLUCOSE CAP 105 mg/dL L=70 H=116 [facility] COVID FLU RSV GENEXPE RT - Collect Date/Time: 10/07/2022 14:26 [facility] ID: [id number] [address] [place] [address], [phone] LOINC: 76446-6 Test Value Unit Reference Range Code Code System Flag COVID NEGATIVE Normal: Negative 94393-2 LOINC INFLUENZA A DNA NEGATIVE Normal: Negative 40263-9 LOINC INFLUENZA B DNA NEGATIVE Normal: Negative 76747-7 LOINC RSV DNA NEGATIVE Normal: Negative 95556-9 LOINC Social History Type Status Start Date End Date Code Code Syst em Smoking History Current every day smoker 525734683 SNOMED CT Smoking History Former smoker 4997194 SNOMED CT Smoking History Current some day smoker 11/25/[address] Sex Female Vital Signs Vital Sign Value Unit [place] Value [place] Unit Date/Time Recent/Initial? Code Code System Body Mass Index 46.72 kg/m2 10/07/2022 13:58 Initial 46962 -5 LOINC Systolic Blood Pressure 124 mm[Hg] 10/07/2022 13:58 Initial 8480- 6 LOINC Diastolic Blood Pressure 89 mm[Hg] 10/07/2022 13:58 Initial 8462- 4 LOINC Body Surface Area 2.76 m2 10/07/2022 13:58 Initial 3140- 1 LOINC Height 180.340 0 cm 71.00 in 10/07/2022 13:58 Initial 8302- 2 LOINC O2 Saturation 98 % 2021 13:58 Initial 35978 -5 LOINC Pulse 82.0 /min 10/07/2022 13:58 Initial 8867- 4 LOINC Respiration 18 /min 10/07/20 13:58 Initial 9279- 1 LOINC Temperature 37.4 Teodora 99.3 F 10/07/20 13:58 Initial 8310- 5 LOINC Weight 151.95 kg 335.00 lbs 10/07/2022 13:58 Initial 22806 -7 [facility] Medications Medication Start Date End Date Route Frequency Dose Code Code System Medication Instructions Home Meds Ondansetron 4MG Oral Tablet, Disintegrating 07/17/2022 10/07/2022 ORAL NEEDED EVERY 6 HOURS 1 TABLET 400765 RxNorm TAKE 1 TABLET ORAL NEEDED EVERY 6 HOURS FOR Nausea/Vomiting HYDROcodone bitartrate-acet aminophen 5MG-325MG Oral Tablet 07/17/2022 10/07/2022 ORAL NEEDED EVERY 4 HOURS 1 TABLET 789066 RxNorm TAKE 1 TABLET ORAL NEEDED EVERY 4 HOURS FOR Pain Ibuprofen 200MG Oral Tablet 07/17/2022 09/01/2023 ORAL EVERY 6 HOURS 3 TABLET 374395 RxNorm TAKE 3 TABLET ORAL EVERY 6 HOURS FOR 24 HOURS THEN NEEDED FOR PAIN Chlorhexidine Gluconate 0.12% Oral Liquid 07/17/2022 10/07/2022 ORAL THREE TIMES A DAY 5 mL RxNorm TAKE 5 mL ORAL SWISH AND SPIT THREE TIMES A DAY Bactrim DS 800MG-160MG Oral Tablet 09/04/2022 10/07/2022 ORAL TWICE A DAY 1 TABLET 046837 RxNorm TAKE 1 TABLET ORAL TWICE A DAY Benadryl Allergy 25MG Oral Tablet 09/11/2022 09/01/2023 ORAL EVERY 6 HOURS 2 TABLET 4491648 RxNorm TAKE 2 TABLET ORAL EVERY 6 HOURS Zofran 4MG Oral Tablet 10/07/2022 10/04/2023 ORAL NEEDED THREE TIMES A DAY 1 TABLET 729133 RxNorm TAKE 1 TABLET ORAL NEEDED THREE TIMES A DAY oxyCODONE HCl 5MG Oral Tablet 12/14/2022 09/01/2023 ORAL NEEDED EVERY 3 HOURS 5 MILLIGR AMS 3966129 RxNorm TAKE 5 MILLIGRAMS ORAL NEEDED EVERY 3 HOURS Atorvastatin Calcium 40MG Oral Tablet 12/14/2022 Unknown ORAL DAILY 40 MILLIGR AMS 045956 RxNorm TAKE 40 MILLIGRAMS ORAL DAILY Levothyroxine 200MCG Oral Tablet 12/14/2022 09/01/2023 ORAL DAILY 200 MCG 932487 RxNorm TAKE 200 M CG ORAL DAILY ProAir HFA 0.09MG/1Actuati on Inhalation Suspension 12/14/2022 06/02/2023 INHAL ATION NEEDED 1 unit(s) 107375 RxNorm 1 EACH INHALATION NEEDED Trulicity 0.75MG/0.5ML Subcutaneous Solution 12/14/2022 09/01/2023 SUBCU TANEO US MONDAYS 1.5 MILLIGR AMS 7942082 RxNorm INJECT 1.5 MILLIGRAMS SUBCUTANEOUS MONDAYS metFORMIN HCl 500MG Oral Tablet 12/14/2022 06/01/2023 ORAL TWICE A DAY 1000 MILLIGR AMS 922688 RxNorm TAKE 1000 MILLIGRAMS ORAL TWICE A DAY predniSONE 20MG Oral Tablet 03/06/2023 06/02/2023 ORAL DAILY 1 TABLET 512632 RxNorm TAKE 1 TABLET ORAL DAILY Zithromax 250MG Oral Tablet 03/06/2023 06/02/2023 ORAL DAILY 1 TABLET 628378 RxNorm TAKE 2 TABLETS ORAL DAILY ON DAY 1 AND THEN1 TABLET DAILY ON DAYS 2-5 Albuterol Sulfate 0.09MG/1Actuati on Inhalation Suspension 06/02/2023 Unknown INHAL ATION NEEDED EVERY 4 HOURS 2 PUFF 5697151 RxNorm 2 PUFF INHALATION EVERY 4 HOURS FOR 24 HOURS THEN NEEDED FOR Cough/Shortness of breath Zithromax 250MG Oral Tablet 06/02/2023 06/10/2023 ORAL DAILY 1 TABLET 849046 RxNorm TAKE 1 TABLET ORAL DAILY predniSONE 20MG Oral Tablet 06/02/2023 06/10/2023 ORAL DAILY 3 TABLET 077995 RxNorm TAKE 3 TABLET ORAL DAILY Mucinex D 600MG-60mg Oral Tablet, Extended Release 06/02/2023 09/01/2023 ORAL TWICE A DAY 1 TABLET 4244528 RxNorm TAKE 1 TABLET ORAL TWICE A DAY FOR 3-5 DAYS Zithromax 250MG Oral Tablet 06/10/2023 09/01/2023 ORAL DAILY 1 TABLET 100233 RxNorm TAKE 2 TABLETS ORAL DAILY ON DAY 1 AND THEN1 TABLET DAILY ON DAYS 2-5 Ibuprofen 800MG Oral Tablet 08/28/2023 10/04/2023 ORAL EVERY 8 HOURS 1 TABLET 171028 RxNorm TAKE 1 TABLET ORAL EVERY 8 HOURS Penicillin VK 500MG Oral Tablet 08/28/2023 09/01/2023 ORAL THREE TIMES A DAY 1 TABLET 545134 RxNorm TAKE 1 TABLET ORAL THREE TIMES A DAY Tylenol 325MG Oral Tablet 09/01/2023 10/04/2023 ORAL NEEDED EVERY 6 HOURS 2 TABLET 673668 RxNorm TAKE 2 TABLET ORAL NEEDED EVERY 6 HOURS Anbesol Maximum Strength 20% Oromucosal Gel/Jelly 09/01/2023 10/04/2023 OROMU COSAL THREE TIMES A DAY 1 RxNorm 1 OROMUCOSAL THREE TIMES A DAY Augmentin 875MG-125MG Oral Tablet 09/04/2023 10/04/2023 ORAL TWICE A DAY 1 TABLET 695376 RxNorm TAKE 1 TABLET ORAL TWICE A DAY Meclizine HCl 25MG Oral Tablet 10/04/2023 01/21/2024 ORAL NEEDED EVERY 8 HOURS 1 TABLET 792954 RxNorm TAKE 1 TABLET ORAL NEEDED EVERY 8 HOURS. No alcohol, recreational drugs, driving or operating machinery while taking this. Augmentin 875MG-125MG Oral Tablet 10/26/2023 11/06/2023 ORAL TWICE A DAY 1 TABLET 916508 RxNorm TAKE 1 TABLET ORAL TWICE A DAY Augmentin 875MG-125MG Oral Tablet 11/06/2023 12/11/2023 ORAL TWICE A DAY 1 TABLET 084616 RxNorm TAKE 1 TABLET ORAL TWICE A DAY Tessalon Perles 100MG Oral Capsule, Liquid Filled 11/06/2023 12/11/2023 ORAL NEEDED EVERY 6 HOURS 1 CAPSULE 997963 RxNorm TAKE 1 CAPSULE ORAL NEEDED EVERY 6 HOURS Zithromax 250MG Oral Tablet 02/16/2024 03/29/2024 ORAL DAILY 1 TABLET 529028 RxNorm TAKE 2 TABLETS ORAL DAILY ON DAY 1 AND THEN1 TABLET DAILY ON DAYS 2-5 Keflex 500MG Oral Capsule 03/29/2024 04/06/2024 ORAL THREE TIMES A DAY 1 CAPSULE 406250 RxNorm TAKE 1 CAPSULE ORAL THREE TIMES A DAY Keflex 500MG Oral Capsule 04/06/2024 06/03/2024 ORAL THREE TIMES A DAY 1 CAPSULE 852604 RxNorm TAKE 1 CAPSULE ORAL THREE TIMES [...] Code Code System TYPE 2 DIABETES active 06249173 SNOM ED-CT HYPOTHYROIDISM active 05186982 SNOME D-CT DENTAL CARIES active 66729168 SNOMED -CT ACUTE BRONCHITIS active 50237179 SNO MED-CT SUPERFICIAL FOREIGN BODY, RIGHT FOOT, INITIAL ENCOUNTER active 081010743 SNOMED-CT ASTHMA 03/03/2022 resolved 608077718 SNOMED-CT ANXIETY 01/19/2022 resolved 91204179 SNOMED-CT HLD 09/10/2022 resolved 31103337 SNOMED-CT Allergies and Adverse Reactions Allergy Substance Reaction Severity Start Date Concern Status Code Code System SULFA (sulfonamide) Anaphylaxis (SNOMED-CT: 65354894) Active 17951066 SNOMED-CT MORPHINE Hives (SNOMED-CT: 079833096), Itching (SNOMED-CT: 546105202) Moderate Active 7052 RxNorm BEE POLLEN Anaphylaxis (SNOMED-CT: 74324696) Active 099757 RxNorm DILAUDID Hives (SNOMED-CT: 240634556), Itching (SNOMED-CT: 884661805) Moderate Active 101334 RxNorm Plan of Treatment Symptoms 08/09/2021 LAB [...]
--- OUTSIDE RECORDS SUMMARY | 2024-07-02 18:48 | XMS_ITS ---
Author Organization Unknown Address [address] [place] [address] [phone] Phone Care Team Providers Care Environmental Studies Professor Name Role Phone ELIUD SAHA Registered Nurse Unavailable DUC Arrington Attending Unavailable CHAS Lopez Primary Unavailable UNLISTED PROVIDER - REQUESTED Xhandoff Un available Results TROPONIN HIGH SENSITIVITY* - Collect Date/Time: 11/15/2022 23:15 [facility] ID: [id number] [address] [place] [address], [address] LOINC: 73138-4 Test Value Unit Reference Range Code Code System Flag TROPONIN HS 5.1 pg/mL L=0.0 H=60.4 Specimen seq. RANDOM CBC W/ DIFFERENTIAL* - Colle ct Date/Time: 11/15/2022 23:15 [facility] ID: [id number] [address] [place] [address], [address] LOINC: 45493-1 Test Value Unit Reference Range Code Code System Flag WBC 13.37 th/cmm L=5.00 H=10.00 6690-2 LOINC H NEUT % 65.0 % L=40.0 H=80.0 LYMPH % 28.3 % L=10.0 H=50.0 MONO % 4.0 % L=2.0 H=12.0 33813-3 LOINC EOS % 1.9 % L=0.0 H=8.0 BASO % 0.4 % L=0.0 H=3.0 IG % 0.4 % L=0.0 H=1.1 2514-8 LOINC NRBC % 0.0 % L=0.0 H=0.0 09760-8 LOINC NEUT abs count 8.7 th/cmm L=1.6 H=8.4 751-8 LOINC H LYMPH abs count 3.8 th/cmm L=1.5 H=4.0 731-0 LOINC MONO abs count 0.5 th/cmm L=0.2 H=1.0 742-7 LOINC EOS abs count 0.3 th/cmm L=0.0 H=0.5 711-2 LOINC BASO abs count 0.1 th/cmm L=0.0 H=0.2 704-7 LOINC IG abs count 0.1 th/cmm L=0.0 H=0.1 59782-8 LOINC NRBC abs count 0.0 mil/cmm L=0.0 H=0.0 41189-0 LOINC RBC 4.91 mil/cmm L=3.90 H=5.40 789-8 LOINC HEMOGLOBIN 13.7 gm/dL L=12.0 H=16.0 718-7 LOINC HEMATOCRIT 43 % L=37 H=47 4544-3 LOINC MCV 87 fL L=82 H=92 787-2 LOINC MCH 27.9 pg L=27.0 H=31.0 785-6 LOINC MCHC 32.2 % L=32.0 H=36.0 786-4 LOINC RDW-SD 43.2 fL L=39.0 H=49.0 788-0 LOINC PLATELET COUNT 339 th/cmm L=150 H=450 777-3 LOINC BASIC METABOLIC PANEL (BMP) - Collect Date/Time: 11/15/2022 23:15 [facility] ID: [id number] [address] [place], [place], [address] [facility]: 29917-7 Test Value Unit Reference Range Code Code System Flag GLUCOSE 112 mg/dL L=70 H=116 2345-7 LOINC BUN 12 mg/dL L=6 H=25 3094-0 LOINC CREATININE 0.98 mg/dL L=0.51 H=0.95 2160-0 LOINC H SODIUM SERUM 139 mmol/L L=136 H=145 2951-2 LOINC POTASSIUM SERUM 3.5 mmol/L L=3.4 H=5.2 2823-3 LOINC CHLORIDE SERUM 102 mmol/L L=96 H=110 2075-0 LOINC CARBON DIOXIDE (CO2) 31 mmol/L L=22 H=34 2028-9 LOINC ANION GAP 6.5 mmol/L 31453-0 [facility] CALCIUM SERUM 9.6 mg/dL L=8.2 H=10.2 74879-0 INC AGE 42 years eGFR (non-Afr.Amer.) 63 mL/min 52827-0 [facility] eGFR (Afr-Rwandan) 76 mL/min 25300-3 [facility] Social History Type Status Start Date End Date Code Code Syst em Smoking History Current every day smoker 820533492 SNOMED CT Smoking History Former smoker 4050740 SNOMED CT Smoking History Current some day smoker 11/25/[address] Sex Female Vital Signs Vital Sign Value Unit [place] Value [place] Unit Date/Time Recent/Initial? Code Code System Body Mass Index 47.35 kg/m2 11/15/2022 23:00 Initial 23205 -5 [facility] Systolic Blood Pressure 122 mm[Hg] 11/16/2022 00:38 Most Recent 8480- 6 [facility] Diastolic Blood Pressure 82 mm[Hg] 11/16/2022 00:38 Most Recent 8462- 4 [facility] Systolic Blood Pressure 149 mm[Hg] 11/15/2022 23:00 Initial 8480- 6 [facility] Diastolic Blood Pressure 87 mm[Hg] 11/15/2022 23:00 Initial 8462- 4 [facility] Body Surface Area 2.72 m2 11/15/2022 23:00 Initial 3140- 1 [facility] Height 177.800 0 cm 70.00 in 11/15/2022 23:00 Initial 8302- 2 [facility] O2 Saturation 100 % 2021 00:38 Most Recent 65705 -5 [facility] O2 Saturation 100 % 2021 23:00 Initial 45392 -5 [facility] Pulse 73.0 /min 11/16/2022 00:38 Most Recent 8867- 4 [facility] Pulse 91.0 /min 11/15/2022 23:00 Initial 8867- 4 INC Respiration 14 /min 11/16/20 00:38 Most Recent 9279- 1 LOINC Respiration 18 /min 11/15/20 23:00 Initial 9279- 1 INC Temperature 36.5 Teodora 97.7 F 11/16/20 00:30 Most Recent 8310- 5 LOINC Temperature 36.8 Teodora 98.2 F 11/15/20 23:00 Initial 8310- 5 [facility] Weight 149.69 kg 330.00 lbs 11/15/2022 23:00 Initial 51047 -7 [facility] Medications Medication Start Date End Date Route Frequency Dose Code Code System Medication Instructions Home Meds Ibuprofen 200MG Oral Tablet 07/17/2022 09/01/2023 ORAL EVERY 6 HOURS 3 TABLET 741277 RxNorm TAKE 3 TABLET ORAL EVERY 6 HOURS FOR 24 HOURS THEN NEEDED FOR PAIN Benadryl Allergy 25MG Oral Tablet 09/11/2022 09/01/2023 ORAL EVERY 6 HOURS 2 TABLET 5577336 RxNorm TAKE 2 TABLET ORAL EVERY 6 HOURS Zofran 4MG Oral Tablet 10/07/2022 10/04/2023 ORAL NEEDED THREE TIMES A DAY 1 TABLET 634947 RxNorm TAKE 1 TABLET ORAL NEEDED THREE TIMES A DAY oxyCODONE HCl 5MG Oral Tablet 12/14/2022 09/01/2023 ORAL NEEDED EVERY 3 HOURS 5 MILLIGRAMS 1640903 RxNorm TAKE 5 MILLIGRAM S ORAL NEEDED EVERY 3 HOURS Atorvastatin Calcium 40MG Oral Tablet 12/14/2022 Unknown ORAL DAILY 40 MILLIGRAMS 319053 RxNorm TAKE 40 MILLIGRAM S ORAL DAILY Levothyroxine 200MCG Oral Tablet 12/14/2022 09/01/2023 ORAL DAILY 200 MCG 371599 RxNorm TAKE 200 MCG ORAL DAILY ProAir HFA 0.09MG/1Actua tion Inhalation Suspension 12/14/2022 06/02/2023 INHALATI ON NEEDED 1 unit(s) 625132 RxNorm 1 EACH INHALATIO N NEEDED Trulicity 0.75MG/0.5ML Subcutaneous Solution 12/14/2022 09/01/2023 SUBCUTAN EOUS MONDAYS 1.5 MILLIGRAMS 3882849 RxNorm INJECT 1.5 MILLIGRAM S SUBCUTANE OUS MONDAYS metFORMIN HCl 500MG Oral Tablet 12/14/2022 06/01/2023 ORAL TWICE A DAY 1000 MILLIGRAMS 480783 RxNorm TAKE 1000 MILLIGRAM S ORAL TWICE A DAY predniSONE 20MG Oral Tablet 03/06/2023 06/02/2023 ORAL DAILY 1 TABLET 010229 RxNorm TAKE 1 TABLET ORAL DAILY Zithromax 250MG Oral Tablet 03/06/2023 06/02/2023 ORAL DAILY 1 TABLET 603160 RxNorm TAKE 2 TABLETS ORAL DAILY ON DAY 1 AND THEN1 TABLET DAILY ON DAYS 2-5 Albuterol Sulfate 0.09MG/1Actua tion Inhalation Suspension 06/02/2023 Unknown INHALATI ON NEEDED EVERY 4 HOURS 2 PUFF 3765515 RxNorm 2 PUFF INHALATIO N EVERY 4 HOURS FOR 24 HOURS THEN NEEDED FOR Cough/Sandra rtness of breath Zithromax 250MG Oral Tablet 06/02/2023 06/10/2023 ORAL DAILY 1 TABLET 653053 RxNorm TAKE 1 TABLET ORAL DAILY predniSONE 20MG Oral Tablet 06/02/2023 06/10/2023 ORAL DAILY 3 TABLET 069401 RxNorm TAKE 3 TABLET ORAL DAILY Mucinex D 600MG-60mg Oral Tablet, Extended Release 06/02/2023 09/01/2023 ORAL TWICE A DAY 1 TABLET 3757342 RxNorm TAKE 1 TABLET ORAL TWICE A DAY FOR 3-5 DAYS Zithromax 250MG Oral Tablet 06/10/2023 09/01/2023 ORAL DAILY 1 TABLET 366402 RxNorm TAKE 2 TABLETS ORAL DAILY ON DAY 1 AND THEN1 TABLET DAILY ON DAYS 2-5 Ibuprofen 800MG Oral Tablet 08/28/2023 10/04/2023 ORAL EVERY 8 HOURS 1 TABLET 506576 RxNorm TAKE 1 TABLET ORAL EVERY 8 HOURS Penicillin VK 500MG Oral Tablet 08/28/2023 09/01/2023 ORAL THREE TIMES A DAY 1 TABLET 740018 RxNorm TAKE 1 TABLET ORAL THREE TIMES A DAY Tylenol 325MG Oral Tablet 09/01/2023 10/04/2023 ORAL NEEDED EVERY 6 HOURS 2 TABLET 378221 RxNorm TAKE 2 TABLET ORAL NEEDED EVERY 6 HOURS Anbesol Maximum Strength 20% Oromucosal Gel/Jelly 09/01/2023 10/04/2023 OROMUCOS AL THREE TIMES A DAY 1 RxNorm 1 OROMUCOSA L THREE TIMES A DAY Augmentin 875MG-125MG Oral Tablet 09/04/2023 10/04/2023 ORAL TWICE A DAY 1 TABLET 891632 RxNorm TAKE 1 TABLET ORAL TWICE A DAY Meclizine HCl 25MG Oral Tablet 10/04/2023 01/21/2024 ORAL NEEDED EVERY 8 HOURS 1 TABLET 972587 RxNorm TAKE 1 TABLET ORAL NEEDED EVERY 8 HOURS. No alcohol, recreatio nal drugs, driving or operating machinery while taking this. Augmentin 875MG-125MG Oral Tablet 10/26/2023 11/06/2023 ORAL TWICE A DAY 1 TABLET 342579 RxNorm TAKE 1 TABLET ORAL TWICE A DAY Augmentin 875MG-125MG Oral Tablet 11/06/2023 12/11/2023 ORAL TWICE A DAY 1 TABLET 099306 RxNorm TAKE 1 TABLET ORAL TWICE A DAY Tessalon Perles 100MG Oral Capsule, Liquid Filled 11/06/2023 12/11/2023 ORAL NEEDED EVERY 6 HOURS 1 CAPSULE 852284 RxNorm TAKE 1 CAPSULE ORAL NEEDED EVERY 6 HOURS Zithromax 250MG Oral Tablet 02/16/2024 03/29/2024 ORAL DAILY 1 TABLET 487485 RxNorm TAKE 2 TABLETS ORAL DAILY ON DAY 1 AND THEN1 TABLET DAILY ON DAYS 2-5 Keflex 500MG Oral Capsule 03/29/2024 04/06/2024 ORAL THREE TIMES A DAY 1 CAPSULE 776501 RxNorm TAKE 1 CAPSULE ORAL THREE TIMES A DAY Keflex 500MG Oral Capsule 04/06/2024 06/03/2024 ORAL THREE TIMES A DAY 1 CAPSULE 276222 RxNorm TAKE 1 CAPSULE ORAL THREE TIMES [...] Code Code System TYPE 2 DIABETES active 03923742 SNOM ED-CT HYPOTHYROIDISM active 56625360 SNOME D-CT DENTAL CARIES active 90710602 SNOMED -CT ACUTE BRONCHITIS active 01479151 SNO MED-CT SUPERFICIAL FOREIGN BODY, RIGHT FOOT, INITIAL ENCOUNTER active 009323581 SNOMED-CT ASTHMA 03/03/2022 resolved 586624609 SNOMED-CT ANXIETY 01/19/2022 resolved 82628613 SNOMED-CT HLD 09/10/2022 resolved 20541896 SNOMED-CT Allergies and Adverse Reactions Allergy Substance Reaction Severity Start Date Concern Status Code Code System SULFA (sulfonamide) Anaphylaxis (SNOMED-CT: 24412161) Active 62611916 SNOMED-CT MORPHINE Hives (SNOMED-CT: 123681489), Itching (SNOMED-CT: 222285267) Moderate Active 7052 RxNorm BEE POLLEN Anaphylaxis (SNOMED-CT: 89755773) Active 553217 RxNorm DILAUDID Hives (SNOMED-CT: 119205910), Itching (SNOMED-CT: 066362283) Moderate Active 634386 RxNorm Plan of Treatment Symptoms 08/09/2021 LAB DRAW 15MIN 05/30/2024 US PELVIC / TV 11/06/2023 CT CHEST W/O CONTRAST 03/13/2023 CT CHEST W/O CONTRAST 03/04/2023 SYMPTOMS 10/19/2022 LAB DRAW 15MIN 08/02/2022 LAB DRAW 15MIN 05/25/2022 SYMPTOMS 04/28/2022 EXPOSURE 12/07/2021 SYMPTOMS 11/22/2021 SYMPTOMS 2021 Encounters Encounter Diagnosis Start Date Code Code Sys tem Other chest pain 11/15/2022 SNOMED-CT Personal Care Team Section Performer Name Performer Role Active Date Inactive Da campbell
--- OUTSIDE RECORDS SUMMARY | 2024-07-02 18:49 | XMS_ITS ---
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 Name Role Phone ZACH YIP Registered Nurse Liv Martin Attending Unavailable CHAS Lopez Primary Unavailable UNLISTED PROVIDER - REQUESTED Xhandoff Un available Results URINALYSIS WITH REFLEX CULT IF POSITIVE* - Collect Date/Time: 12/11/2022 01:27 [facility] ID: [id number] [address] [place] [address], [address] LOINC: 07791-4 Test Value Unit Reference Range Code Code System Flag COLLECTION MODE: CLEAN CATCH 47531-5 LOINC Color YELLOW yellow 5778-6 LOINC Appearance HAZY clear 5767-9 LOINC Glucose urine NEGATIVE negative mg/dl 42143-1 LOINC Bilirubin NEGATIVE negative 5770-3 LOINC Ketones TRACE negative mg/dl 2514-8 LOINC A Spec gravity 1.020 1.003 - 1.030 5811-5 LOINC pH urine 8.0 5.0 - 7.0 2756-5 LOINC A Protein NEGATIVE negative mg/dl 57409-2 LOINC Urobilinogen 0.2 <or= 1 EU/dl 01960-0 LOINC Nitrite. NEGATIVE negative 5802-4 LOINC Blood NEGATIVE negative 5794-3 LOINC Leukocytes. NEGATIVE negative MICROSCOPIC NOT INDICAT Social History Type Status Start Date End Date Code Code Syst em Smoking History Current every day smoker 666896365 SNOMED CT Smoking History Former smoker 2648423 SNOMED CT Smoking History Current some day smoker 11/25/[id number] Sex Female Vital Signs Vital Sign Value Unit [facility] Value [facility] Unit Date/Time Recent/Initial? Code Code System Body Mass Index 53.00 kg/m2 12/11/2022 00:00 Initial 09453 -5 [facility] Systolic Blood Pressure 120 mm[Hg] 12/11/2022 00:00 Initial 8480- 6 [facility] Diastolic Blood Pressure 63 mm[Hg] 12/11/2022 00:00 Initial 8462- 4 [facility] Body Surface Area 2.94 m2 12/11/2022 00:00 Initial 3140- 1 [facility] Height 180.340 0 cm 71.00 in 12/11/2022 00:00 Initial 8302- 2 [facility] O2 Saturation 97 % 2022 00:00 Initial 40086 -5 [facility] Pulse 87.0 /min 12/11/2022 00:00 Initial 8867- 4 [facility] Respiration 18 /min 12/11/19 00:00 Initial 9279- 1 [facility] Temperature 36.4 Teodora 97.5 F 12/11/19 00:00 Initial 8310- 5 [facility] Weight 172.37 kg 380.00 lbs 12/11/2022 00:00 Initial 64927 -7 [facility] Medications Medication Start Date End Date Route Frequency Dose Code Code System Medication Instructions Home Meds Ibuprofen 200MG Oral Tablet 07/17/2022 09/01/2023 ORAL EVERY 6 HOURS 3 TABLET 887097 RxNorm TAKE 3 TABLET ORAL EVERY 6 HOURS FOR 24 HOURS THEN NEEDED FOR PAIN Benadryl Allergy 25MG Oral Tablet 09/11/2022 09/01/2023 ORAL EVERY 6 HOURS 2 TABLET 8234263 RxNorm TAKE 2 TABLET ORAL EVERY 6 HOURS Zofran 4MG Oral Tablet 10/07/2022 10/04/2023 ORAL NEEDED THREE TIMES A DAY 1 TABLET 789813 RxNorm TAKE 1 TABLET ORAL NEEDED THREE TIMES A DAY oxyCODONE HCl 5MG Oral Tablet 12/14/2022 09/01/2023 ORAL NEEDED EVERY 3 HOURS 5 MILLIGRAMS 3832775 RxNorm TAKE 5 MILLIGRAM S ORAL NEEDED EVERY 3 HOURS Atorvastatin Calcium 40MG Oral Tablet 12/14/2022 Unknown ORAL DAILY 40 MILLIGRAMS 456454 RxNorm TAKE 40 MILLIGRAM S ORAL DAILY Levothyroxine 200MCG Oral Tablet 12/14/2022 09/01/2023 ORAL DAILY 200 MCG 902251 RxNorm TAKE 200 MCG ORAL DAILY ProAir HFA 0.09MG/1Actua tion Inhalation Suspension 12/14/2022 06/02/2023 INHALATI ON NEEDED 1 unit(s) 362466 RxNorm 1 EACH INHALATIO N NEEDED Trulicity 0.75MG/0.5ML Subcutaneous Solution 12/14/2022 09/01/2023 SUBCUTAN EOUS MONDAYS 1.5 MILLIGRAMS 7575308 RxNorm INJECT 1.5 MILLIGRAM S SUBCUTANE OUS MONDAYS metFORMIN HCl 500MG Oral Tablet 12/14/2022 06/01/2023 ORAL TWICE A DAY 1000 MILLIGRAMS 813399 RxNorm TAKE 1000 MILLIGRAM S ORAL TWICE A DAY predniSONE 20MG Oral Tablet 03/06/2023 06/02/2023 ORAL DAILY 1 TABLET 280918 RxNorm TAKE 1 TABLET ORAL DAILY Zithromax 250MG Oral Tablet 03/06/2023 06/02/2023 ORAL DAILY 1 TABLET 458406 RxNorm TAKE 2 TABLETS ORAL DAILY ON DAY 1 AND THEN1 TABLET DAILY ON DAYS 2-5 Albuterol Sulfate 0.09MG/1Actua tion Inhalation Suspension 06/02/2023 Unknown INHALATI ON NEEDED EVERY 4 HOURS 2 PUFF 3030598 RxNorm 2 PUFF INHALATIO N EVERY 4 HOURS FOR 24 HOURS THEN NEEDED FOR Cough/Sandra rtness of breath Zithromax 250MG Oral Tablet 06/02/2023 06/10/2023 ORAL DAILY 1 TABLET 243316 RxNorm TAKE 1 TABLET ORAL DAILY predniSONE 20MG Oral Tablet 06/02/2023 06/10/2023 ORAL DAILY 3 TABLET 333708 RxNorm TAKE 3 TABLET ORAL DAILY Mucinex D 600MG-60mg Oral Tablet, Extended Release 06/02/2023 09/01/2023 ORAL TWICE A DAY 1 TABLET 4771183 RxNorm TAKE 1 TABLET ORAL TWICE A DAY FOR 3-5 DAYS Zithromax 250MG Oral Tablet 06/10/2023 09/01/2023 ORAL DAILY 1 TABLET 720842 RxNorm TAKE 2 TABLETS ORAL DAILY ON DAY 1 AND THEN1 TABLET DAILY ON DAYS 2-5 Ibuprofen 800MG Oral Tablet 08/28/2023 10/04/2023 ORAL EVERY 8 HOURS 1 TABLET 006767 RxNorm TAKE 1 TABLET ORAL EVERY 8 HOURS Penicillin VK 500MG Oral Tablet 08/28/2023 09/01/2023 ORAL THREE TIMES A DAY 1 TABLET 591905 RxNorm TAKE 1 TABLET ORAL THREE TIMES A DAY Tylenol 325MG Oral Tablet 09/01/2023 10/04/2023 ORAL NEEDED EVERY 6 HOURS 2 TABLET 049992 RxNorm TAKE 2 TABLET ORAL NEEDED EVERY 6 HOURS Anbesol Maximum Strength 20% Oromucosal Gel/Jelly 09/01/2023 10/04/2023 OROMUCOS AL THREE TIMES A DAY 1 RxNorm 1 OROMUCOSA L THREE TIMES A DAY Augmentin 875MG-125MG Oral Tablet 09/04/2023 10/04/2023 ORAL TWICE A DAY 1 TABLET 194437 RxNorm TAKE 1 TABLET ORAL TWICE A DAY Meclizine HCl 25MG Oral Tablet 10/04/2023 01/21/2024 ORAL NEEDED EVERY 8 HOURS 1 TABLET 486937 RxNorm TAKE 1 TABLET ORAL NEEDED EVERY 8 HOURS. No alcohol, recreatio nal drugs, driving or operating machinery while taking this. Augmentin 875MG-125MG Oral Tablet 10/26/2023 11/06/2023 ORAL TWICE A DAY 1 TABLET 248813 RxNorm TAKE 1 TABLET ORAL TWICE A DAY Augmentin 875MG-125MG Oral Tablet 11/06/2023 12/11/2023 ORAL TWICE A DAY 1 TABLET 276279 RxNorm TAKE 1 TABLET ORAL TWICE A DAY Tessalon Perles 100MG Oral Capsule, Liquid Filled 11/06/2023 12/11/2023 ORAL NEEDED EVERY 6 HOURS 1 CAPSULE 285378 RxNorm TAKE 1 CAPSULE ORAL NEEDED EVERY 6 HOURS Zithromax 250MG Oral Tablet 02/16/2024 03/29/2024 ORAL DAILY 1 TABLET 987645 RxNorm TAKE 2 TABLETS ORAL DAILY ON DAY 1 AND THEN1 TABLET DAILY ON DAYS 2-5 Keflex 500MG Oral Capsule 03/29/2024 04/06/2024 ORAL THREE TIMES A DAY 1 CAPSULE 853622 RxNorm TAKE 1 CAPSULE ORAL THREE TIMES A DAY Keflex 500MG Oral Capsule 04/06/2024 06/03/2024 ORAL THREE TIMES A DAY 1 CAPSULE 049004 RxNorm TAKE 1 CAPSULE ORAL THREE TIMES [...] Code Code System TYPE 2 DIABETES active 27804092 SNOM ED-CT HYPOTHYROIDISM active 05677669 SNOME D-CT DENTAL CARIES active 22373433 SNOMED -CT ACUTE BRONCHITIS active 34119652 SNO MED-CT SUPERFICIAL FOREIGN BODY, RIGHT FOOT, INITIAL ENCOUNTER active 481858014 SNOMED-CT ASTHMA 03/03/2022 resolved 708013225 SNOMED-CT ANXIETY 01/19/2022 resolved 68492397 SNOMED-CT HLD 09/10/2022 resolved 39000759 SNOMED-CT Allergies and Adverse Reactions Allergy Substance Reaction Severity Start Date Concern Status Code Code System SULFA (sulfonamide) Anaphylaxis (SNOMED-CT: 10629297) Active 39482871 SNOMED-CT MORPHINE Hives (SNOMED-CT: 183183570), Itching (SNOMED-CT: 645804427) Moderate Active 7052 RxNorm BEE POLLEN Anaphylaxis (SNOMED-CT: 66543657) Active 289555 RxNorm DILAUDID Hives (SNOMED-CT: 084727514), Itching (SNOMED-CT: 702245856) Moderate Active 518894 RxNorm Plan of Treatment Symptoms 08/09/2021 LAB DRAW 15MIN 05/30/2024 US PELVIC / TV 11/06/2023 CT CHEST W/O CONTRAST 03/13/2023 CT CHEST W/O CONTRAST 03/04/2023 SYMPTOMS 10/19/2022 LAB DRAW 15MIN 08/02/2022 LAB DRAW 15MIN 05/25/2022 SYMPTOMS 04/28/2022 EXPOSURE 12/07/2021 SYMPTOMS 11/22/2021 SYMPTOMS 2021 Encounters Encounter Diagnosis Start Date Code Code Sys tem Left upper quadrant pain 12/10/2022 860839425 SNO MED-CT Personal Care Team Section Performer Name Performer Role Active Date Inactive Da te
--- OUTSIDE RECORDS SUMMARY | 2024-07-02 18:49 | XMS_ITS ---
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 Name Role Phone ELLIE AVILA Registered Nurse Unavailab d[place] Registered Nurse Unavailable ROCKY Paredes Attending Unavailable CHAS Lopez Primary Unavailable Results URINALYSIS WITH REFLEX CULT IF POSITIVE* - Collect Date/Time: 12/12/2022 16:38 [facility] ID: [id number] [address] [place] [address], [address] LOINC: 06413-5 Test Value Unit Reference Range Code Code System Flag COLLECTION MODE: CLEAN CATCH 39184-6 LOINC Color YELLOW yellow 5778-6 LOINC Appearance CLEAR clear 5767-9 LOINC Glucose urine NEGATIVE negative mg/dl 48291-7 LOINC Bilirubin NEGATIVE negative 5770-3 LOINC Ketones NEGATIVE negative mg/dl 2514-8 LOINC Spec gravity 1.015 1.003 - 1.030 5811-5 LOINC pH urine 6.0 5.0 - 7.0 2756-5 LOINC Protein NEGATIVE negative mg/dl 40547-0 LOINC Urobilinogen 0.2 <or= 1 EU/dl 31987-6 LOINC Nitrite. NEGATIVE negative 5802-4 LOINC Blood NEGATIVE negative 5794-3 LOINC Leukocytes. NEGATIVE negative MICROSCOPIC NOT INDICAT LIPASE* NEW - Collect Date/T mauricio: 12/12/2022 15:14 [facility] ID: [id number] [address] [place] [address], [phone] LOINC: 3040-3 Test Value Unit Reference Range Code Code System Flag LIPASE. 26 U/L L=16 H=77 TEST QUAL (SERUM) - Collect Date/Time: 12/12/2022 15:14 [facility] ID: [id number] [address] [place], [place], [address] LOINC: 2118-8 Test Value Unit Reference Range Code Code System Flag TEST NEGATIVE 2106-3 LOINC COMPREHENSIVE METABOLIC PANE L (CMP) - Collect Date/Time: 12/12/2022 15:14 [facility] ID: [id number] [address] [place] [address], [address] LOINC: 73157-6 Test Value Unit Reference Range Code Code [...] H=34 2028-9 LOINC ANION GAP 5.8 mmol/L 97032-1 LOINC CALCIUM SERUM 9.2 mg/dL L=8.2 H=10.2 69033-6 LOINC BILIRUBIN TOTAL 0.2 mg/dL L=0.0 H=1.3 1975-2 LOINC ALK. PHOS. 95 U/L L=46 H=116 6768-6 LOINC SGOT (AST) 17 U/L L=15 H=37 1920-8 LOINC SGPT (ALT) 19 U/L L=12 H=78 1742-6 LOINC TOTAL PROTEIN 7.4 gm/dL L=6.0 H=8.0 2885-2 LOINC ALBUMIN 3.2 gm/dL L=3.4 H=5.0 1751-7 LOINC L AGE 42 years eGFR (non-Afr.Amer.) 68 mL/min 63974-5 LOINC eGFR (Afr-Panamanian) 82 mL/min 16571-5 LOINC CBC W/ DIFFERENTIAL* - Colle ct Date/Time: 12/12/2022 15:14 [facility] ID: [id number] [address] [place], [place], [address] LOINC: 91295-4 Test Value Unit Reference Range Code Code System Flag WBC 11.65 th/cmm L=5.00 H=10.00 6690-2 LOINC H NEUT % 64.1 % L=40.0 H=80.0 LYMPH % 28.7 % L=10.0 H=50.0 MONO % 4.6 % L=2.0 H=12.0 69073-3 LOINC EOS % 2.1 % L=0.0 H=8.0 BASO % 0.3 % L=0.0 H=3.0 IG % 0.2 % L=0.0 H=1.1 2514-8 LOINC NRBC % 0.0 % L=0.0 H=0.0 79392-9 LOINC NEUT abs count 7.5 th/cmm L=1.6 H=8.4 751-8 LOINC LYMPH abs count 3.3 th/cmm L=1.5 H=4.0 731-0 LOINC MONO abs count 0.5 th/cmm L=0.2 H=1.0 742-7 LOINC EOS abs count 0.2 th/cmm L=0.0 H=0.5 711-2 LOINC BASO abs count 0.0 th/cmm L=0.0 H=0.2 704-7 LOINC IG abs count 0.0 th/cmm L=0.0 H=0.1 66348-2 LOINC NRBC abs count 0.0 mil/cmm L=0.0 H=0.0 30388-2 LOINC RBC 4.61 mil/cmm L=3.90 H=5.40 789-8 [...] CONTRAST ONLY - Completed: 12/12/2022 17:22 LOINC: [facility] [place], [place] [address] PACS ADVISOR [employer] REPORT Patient Name: KESHA LAGOS MRN: Sex: : Age: [id number] F 1980 42 Account: Accession: Admit: StayType: [id number] 12/12/2022 E/R Ordered: Order ID: Submitted: Ordering Provider: 12/12/2022 15:15 [id number] MADELINE SHERIFF Completed: Technologist: Resulted: 12/12/2022 17:22 [...] em Smoking History Current every day smoker [id number] SNOMED CT Smoking History Former smoker 6458070 SNOMED CT Smoking History Current some day smoker 11/25/[address] Sex Female Vital Signs Vital Sign Value Unit [place] Value [place] Unit Date/Time Recent/Initial? Code Code System Body Mass Index 45.61 kg/m2 12/12/2022 14:28 Initial 07426 -5 [facility] Systolic Blood Pressure 127 mm[Hg] 12/12/2022 20:54 [...] O2 Saturation 98 % 2022 14:28 Initial 90860 -5 LOINC Pulse 73.0 /min 12/12/2022 20:54 Most Recent 8867- 4 LOINC Pulse 82.0 /min 12/12/2022 14:28 Initial 8867- 4 LOINC Respiration 16 /min 12/12/19 14:28 Initial 9279- 1 LOINC Temperature 36.5 Teodora 97.7 F 12/12/19 14:28 Initial 8310- 5 LOINC Weight 148.32 kg 327.00 lbs 12/12/2022 14:28 Initial 97043 -7 LOINC Medications Medication Start Date End Date Route Frequency Dose Code Code System Medication Instructions Home Meds Ibuprofen 200MG Oral Tablet 07/17/2022 09/01/2023 ORAL EVERY 6 HOURS 3 TABLET 878672 RxNorm TAKE 3 TABLET ORAL EVERY 6 HOURS FOR 24 HOURS THEN NEEDED FOR PAIN Benadryl Allergy 25MG Oral Tablet 09/11/2022 09/01/2023 ORAL EVERY 6 HOURS 2 TABLET 8753498 RxNorm TAKE 2 TABLET ORAL EVERY 6 HOURS Zofran 4MG Oral Tablet 10/07/2022 10/04/2023 ORAL NEEDED THREE TIMES A DAY 1 TABLET 976746 RxNorm TAKE 1 TABLET ORAL NEEDED THREE TIMES A DAY oxyCODONE HCl 5MG Oral Tablet 12/14/2022 09/01/2023 ORAL NEEDED EVERY 3 HOURS 5 MILLIGRAMS 0516898 RxNorm TAKE 5 MILLIGRAM S ORAL NEEDED EVERY 3 HOURS Atorvastatin Calcium 40MG Oral Tablet 12/14/2022 Unknown ORAL DAILY 40 MILLIGRAMS 176146 RxNorm TAKE 40 MILLIGRAM S ORAL DAILY Levothyroxine 200MCG Oral Tablet 12/14/2022 09/01/2023 ORAL DAILY 200 MCG 108281 RxNorm TAKE 200 MCG ORAL DAILY ProAir HFA 0.09MG/1Actua tion Inhalation Suspension 12/14/2022 06/02/2023 INHALATI ON NEEDED 1 unit(s) 563297 RxNorm 1 EACH INHALATIO N NEEDED Trulicity 0.75MG/0.5ML Subcutaneous Solution 12/14/2022 09/01/2023 SUBCUTAN EOUS MONDAYS 1.5 MILLIGRAMS 9080449 RxNorm INJECT 1.5 MILLIGRAM S SUBCUTANE OUS MONDAYS metFORMIN HCl 500MG Oral Tablet 12/14/2022 06/01/2023 ORAL TWICE A DAY 1000 MILLIGRAMS 560279 RxNorm TAKE 1000 MILLIGRAM S ORAL TWICE A DAY predniSONE 20MG Oral Tablet 03/06/2023 06/02/2023 ORAL DAILY 1 TABLET 464223 RxNorm TAKE 1 TABLET ORAL DAILY Zithromax 250MG Oral Tablet 03/06/2023 06/02/2023 ORAL DAILY 1 TABLET 680146 RxNorm TAKE 2 TABLETS ORAL DAILY ON DAY 1 AND THEN1 TABLET DAILY ON DAYS 2-5 Albuterol Sulfate 0.09MG/1Actua tion Inhalation Suspension 06/02/2023 Unknown INHALATI ON NEEDED EVERY 4 HOURS 2 PUFF 1712345 RxNorm 2 PUFF INHALATIO N EVERY 4 HOURS FOR 24 HOURS THEN NEEDED FOR Cough/Sandra rtness of breath Zithromax 250MG Oral Tablet 06/02/2023 06/10/2023 ORAL DAILY 1 TABLET 716611 RxNorm TAKE 1 TABLET ORAL DAILY predniSONE 20MG Oral Tablet 06/02/2023 06/10/2023 ORAL DAILY 3 TABLET 702121 RxNorm TAKE 3 TABLET ORAL DAILY Mucinex D 600MG-60mg Oral Tablet, Extended Release 06/02/2023 09/01/2023 ORAL TWICE A DAY 1 TABLET 4616380 RxNorm TAKE 1 TABLET ORAL TWICE A DAY FOR 3-5 DAYS Zithromax 250MG Oral Tablet 06/10/2023 09/01/2023 ORAL DAILY 1 TABLET 663635 RxNorm TAKE 2 TABLETS ORAL DAILY ON DAY 1 AND THEN1 TABLET DAILY ON DAYS 2-5 Ibuprofen 800MG Oral Tablet 08/28/2023 10/04/2023 ORAL EVERY 8 HOURS 1 TABLET 668193 RxNorm TAKE 1 TABLET ORAL EVERY 8 HOURS Penicillin VK 500MG Oral Tablet 08/28/2023 09/01/2023 ORAL THREE TIMES A DAY 1 TABLET 620112 RxNorm TAKE 1 TABLET ORAL THREE TIMES A DAY Tylenol 325MG Oral Tablet 09/01/2023 10/04/2023 ORAL NEEDED EVERY 6 HOURS 2 TABLET 084889 RxNorm TAKE 2 TABLET ORAL NEEDED EVERY 6 HOURS Anbesol Maximum Strength 20% Oromucosal Gel/Jelly 09/01/2023 10/04/2023 OROMUCOS AL THREE TIMES A DAY 1 RxNorm 1 OROMUCOSA L THREE TIMES A DAY Augmentin 875MG-125MG Oral Tablet 09/04/2023 10/04/2023 ORAL TWICE A DAY 1 TABLET 075906 RxNorm TAKE 1 TABLET ORAL TWICE A DAY Meclizine HCl 25MG Oral Tablet 10/04/2023 01/21/2024 ORAL NEEDED EVERY 8 HOURS 1 TABLET 178249 RxNorm TAKE 1 TABLET ORAL NEEDED EVERY 8 HOURS. No alcohol, recreatio nal drugs, driving or operating machinery while taking this. Augmentin 875MG-125MG Oral Tablet 10/26/2023 11/06/2023 ORAL TWICE A DAY 1 TABLET 026534 RxNorm TAKE 1 TABLET ORAL TWICE A DAY Augmentin 875MG-125MG Oral Tablet 11/06/2023 12/11/2023 ORAL TWICE A DAY 1 TABLET 773219 RxNorm TAKE 1 TABLET ORAL TWICE A DAY Tessalon Perles 100MG Oral Capsule, Liquid Filled 11/06/2023 12/11/2023 ORAL NEEDED EVERY 6 HOURS 1 CAPSULE 856248 RxNorm TAKE 1 CAPSULE ORAL NEEDED EVERY 6 HOURS Zithromax 250MG Oral Tablet 02/16/2024 03/29/2024 ORAL DAILY 1 TABLET 987309 RxNorm TAKE 2 TABLETS ORAL DAILY ON DAY 1 AND THEN1 TABLET DAILY ON DAYS 2-5 Keflex 500MG Oral Capsule 03/29/2024 04/06/2024 ORAL THREE TIMES A DAY 1 CAPSULE 681778 RxNorm TAKE 1 CAPSULE ORAL THREE TIMES A DAY Keflex 500MG Oral Capsule 04/06/2024 06/03/2024 ORAL THREE TIMES A DAY 1 CAPSULE 662127 RxNorm TAKE 1 CAPSULE ORAL THREE TIMES [...] Code Code System TYPE 2 DIABETES active 32527279 SNOM ED-CT HYPOTHYROIDISM active 69938021 SNOME D-CT DENTAL CARIES active 10560252 SNOMED -CT ACUTE BRONCHITIS active 66784465 SNO MED-CT SUPERFICIAL FOREIGN BODY, RIGHT FOOT, INITIAL ENCOUNTER active 015215350 SNOMED-CT ASTHMA 03/03/2022 resolved 892911154 SNOMED-CT ANXIETY 01/19/2022 resolved 15150962 SNOMED-CT HLD 09/10/2022 resolved 02369757 SNOMED-CT Allergies and Adverse Reactions Allergy Substance Reaction Severity Start Date Concern Status Code Code System SULFA (sulfonamide) Anaphylaxis (SNOMED-CT: 09916021) Active 04865134 SNOMED-CT MORPHINE Hives (SNOMED-CT: 240063620), Itching (SNOMED-CT: 472189097) Moderate Active 7052 RxNorm BEE POLLEN Anaphylaxis (SNOMED-CT: 74694854) Active 263374 RxNorm DILAUDID Hives (SNOMED-CT: 394954026), Itching (SNOMED-CT: 413947918) Moderate Active 814427 RxNorm Plan of Treatment Symptoms 08/09/2021 LAB [...] Performer Role Active Date Inactive Da campbell Consultation Notes [facility] 12/12/2022 19:57 Consult Note 12/12/2022 19:43 Patient Name Age Sex Hospital Days Room and Bed KESHA LAGOS 1980 42 years Female ER 8B Date/Time BP (mm/Hg) Heart Rate Resp Temp (C) SPO2% O2 Device 12/12/2022 14:28 142/70 82 16 36.5 98 % Room Air 21% Practitioner Requesting Consult Rocky Reason for Consult Possible appendicits PMH / PSH Lap valencia '17 DED [facility] Partial Right Nephrectomy 08/16 [facility] LEEP [...] an eRX for Cipro and Flagyl to [facility] for her to filler picker in the morning, the ED will [...]
--- OUTSIDE RECORDS SUMMARY | 2024-07-02 18:49 | XMS_ITS ---
Author Organization Unknown Address [address] [place] [address] [phone] Phone Care Team Providers Care Electronics Instructor Name Role Phone PHUONG Molina Attending Unavailable Social History Type Status Start Date End Date Code Code Syst em Smoking History Current every day smoker 359984923 SNOMED CT Smoking History Former smoker 6038995 SNOMED CT Smoking History Current some day smoker 11/25/[address] Sex Female Medications Medication Start Date End Date Route Frequency Dose Code Code System Medication Instructions Home Meds Ibuprofen 200MG Oral Tablet 07/17/2022 09/01/2023 ORAL EVERY 6 HOURS 3 TABLET 864745 RxNorm TAKE 3 TABLET ORAL EVERY 6 HOURS FOR 24 HOURS THEN NEEDED FOR PAIN Benadryl Allergy 25MG Oral Tablet 09/11/2022 09/01/2023 ORAL EVERY 6 HOURS 2 TABLET 2901253 RxNorm TAKE 2 TABLET ORAL EVERY 6 HOURS Zofran 4MG Oral Tablet 10/07/2022 10/04/2023 ORAL NEEDED THREE TIMES A DAY 1 TABLET 966392 RxNorm TAKE 1 TABLET ORAL NEEDED THREE TIMES A DAY oxyCODONE HCl 5MG Oral Tablet 12/14/2022 09/01/2023 ORAL NEEDED EVERY 3 HOURS 5 MILLIGRAMS 5913731 RxNorm TAKE 5 MILLIGRAM S ORAL NEEDED EVERY 3 HOURS Atorvastatin Calcium 40MG Oral Tablet 12/14/2022 Unknown ORAL DAILY 40 MILLIGRAMS 330546 RxNorm TAKE 40 MILLIGRAM S ORAL DAILY Levothyroxine 200MCG Oral Tablet 12/14/2022 09/01/2023 ORAL DAILY 200 MCG 506825 RxNorm TAKE 200 MCG ORAL DAILY ProAir HFA 0.09MG/1Actua tion Inhalation Suspension 12/14/2022 06/02/2023 INHALATI ON NEEDED 1 unit(s) 933176 RxNorm 1 EACH INHALATIO N NEEDED Trulicity 0.75MG/0.5ML Subcutaneous Solution 12/14/2022 09/01/2023 SUBCUTAN EOUS MONDAYS 1.5 MILLIGRAMS 9194940 RxNorm INJECT 1.5 MILLIGRAM S SUBCUTANE OUS MONDAYS metFORMIN HCl 500MG Oral Tablet 12/14/2022 06/01/2023 ORAL TWICE A DAY 1000 MILLIGRAMS 738402 RxNorm TAKE 1000 MILLIGRAM S ORAL TWICE A DAY predniSONE 20MG Oral Tablet 03/06/2023 06/02/2023 ORAL DAILY 1 TABLET 486116 RxNorm TAKE 1 TABLET ORAL DAILY Zithromax 250MG Oral Tablet 03/06/2023 06/02/2023 ORAL DAILY 1 TABLET 525638 RxNorm TAKE 2 TABLETS ORAL DAILY ON DAY 1 AND THEN1 TABLET DAILY ON DAYS 2-5 Albuterol Sulfate 0.09MG/1Actua tion Inhalation Suspension 06/02/2023 Unknown INHALATI ON NEEDED EVERY 4 HOURS 2 PUFF 9834444 RxNorm 2 PUFF INHALATIO N EVERY 4 HOURS FOR 24 HOURS THEN NEEDED FOR Cough/Sandra rtness of breath Zithromax 250MG Oral Tablet 06/02/2023 06/10/2023 ORAL DAILY 1 TABLET 267404 RxNorm TAKE 1 TABLET ORAL DAILY predniSONE 20MG Oral Tablet 06/02/2023 06/10/2023 ORAL DAILY 3 TABLET 566822 RxNorm TAKE 3 TABLET ORAL DAILY Mucinex D 600MG-60mg Oral Tablet, Extended Release 06/02/2023 09/01/2023 ORAL TWICE A DAY 1 TABLET 4726318 RxNorm TAKE 1 TABLET ORAL TWICE A DAY FOR 3-5 DAYS Zithromax 250MG Oral Tablet 06/10/2023 09/01/2023 ORAL DAILY 1 TABLET 911724 RxNorm TAKE 2 TABLETS ORAL DAILY ON DAY 1 AND THEN1 TABLET DAILY ON DAYS 2-5 Ibuprofen 800MG Oral Tablet 08/28/2023 10/04/2023 ORAL EVERY 8 HOURS 1 TABLET 917736 RxNorm TAKE 1 TABLET ORAL EVERY 8 HOURS Penicillin VK 500MG Oral Tablet 08/28/2023 09/01/2023 ORAL THREE TIMES A DAY 1 TABLET 689818 RxNorm TAKE 1 TABLET ORAL THREE TIMES A DAY Tylenol 325MG Oral Tablet 09/01/2023 10/04/2023 ORAL NEEDED EVERY 6 HOURS 2 TABLET 859417 RxNorm TAKE 2 TABLET ORAL NEEDED EVERY 6 HOURS Anbesol Maximum Strength 20% Oromucosal Gel/Jelly 09/01/2023 10/04/2023 OROMUCOS AL THREE TIMES A DAY 1 RxNorm 1 OROMUCOSA L THREE TIMES A DAY Augmentin 875MG-125MG Oral Tablet 09/04/2023 10/04/2023 ORAL TWICE A DAY 1 TABLET 327371 RxNorm TAKE 1 TABLET ORAL TWICE A DAY Meclizine HCl 25MG Oral Tablet 10/04/2023 01/21/2024 ORAL NEEDED EVERY 8 HOURS 1 TABLET 859299 RxNorm TAKE 1 TABLET ORAL NEEDED EVERY 8 HOURS. No alcohol, recreatio nal drugs, driving or operating machinery while taking this. Augmentin 875MG-125MG Oral Tablet 10/26/2023 11/06/2023 ORAL TWICE A DAY 1 TABLET 384947 RxNorm TAKE 1 TABLET ORAL TWICE A DAY Augmentin 875MG-125MG Oral Tablet 11/06/2023 12/11/2023 ORAL TWICE A DAY 1 TABLET 008857 RxNorm TAKE 1 TABLET ORAL TWICE A DAY Tessalon Perles 100MG Oral Capsule, Liquid Filled 11/06/2023 12/11/2023 ORAL NEEDED EVERY 6 HOURS 1 CAPSULE 798610 RxNorm TAKE 1 CAPSULE ORAL NEEDED EVERY 6 HOURS Zithromax 250MG Oral Tablet 02/16/2024 03/29/2024 ORAL DAILY 1 TABLET [id number] RxNorm TAKE 2 TABLETS ORAL DAILY ON DAY 1 AND THEN1 TABLET DAILY ON DAYS 2-5 Keflex 500MG Oral Capsule 03/29/2024 04/06/2024 ORAL THREE TIMES A DAY 1 CAPSULE 720625 RxNorm TAKE 1 CAPSULE ORAL THREE TIMES A DAY Keflex 500MG Oral Capsule 04/06/2024 06/03/2024 ORAL THREE TIMES A DAY 1 CAPSULE [id number] RxNorm TAKE 1 CAPSULE ORAL THREE TIMES [...] Code Code System TYPE 2 DIABETES active 51779080 SNOM ED-CT HYPOTHYROIDISM active 31627665 SNOME D-CT DENTAL CARIES active 98814100 SNOMED -CT ACUTE BRONCHITIS active 65597424 SNO MED-CT SUPERFICIAL FOREIGN BODY, RIGHT FOOT, INITIAL ENCOUNTER active 806926132 SNOMED-CT ASTHMA 03/03/2022 resolved 978811269 SNOMED-CT ANXIETY 01/19/2022 resolved 73224970 SNOMED-CT HLD 09/10/2022 resolved 55111158 SNOMED-CT Allergies and Adverse Reactions Allergy Substance Reaction Severity Start Date Concern Status Code Code System SULFA (sulfonamide) Anaphylaxis (SNOMED-CT: 35990964) Active 61750433 SNOMED-CT MORPHINE Hives (SNOMED-CT: 541713378), Itching (SNOMED-CT: 392141087) Moderate Active 7052 RxNorm BEE POLLEN Anaphylaxis (SNOMED-CT: 82974683) Active 385904 RxNorm DILAUDID Hives (SNOMED-CT: 935110696), Itching (SNOMED-CT: 678790731) Moderate Active 438469 RxNorm Plan of Treatment Symptoms 08/09/2021 LAB [...]
--- OUTSIDE RECORDS SUMMARY | 2024-07-02 18:50 | XMS_ITS | Data Portability ---
Author Organization [place] - [employer] [facility], Historical Import Interface Address [address] [place] [address] Assessment Encounter Date Assessment Date Assessment LastModified by Organization Details LastModified Time 10/30/2023 10/30/2023 DOS:?? 10/30/23?? [place]: PRN for follow up, Referred back to primary DDS for comp care [place]:?? Consult, [place], ??Extractions #'s?3 4 6 7 10 11 12 15 19 20 21 22 23 24 25 26 27 28 Completed Procedures D9222 - deep sedation/general anesthesia - first 15 minutes D9223 - deep sedation/general anesthesia - each subsequent 15 minute increment D9310 - Consultation - diagnostic service provided by dentist or physician other than requesting dentist or physician D7240 - Removal of impacted tooth - completely bony Teeth: 16 D7140 - Extraction, erupted tooth or exposed root (elevation and/or forceps removal) Teeth: 3 4 6 7 10 11 12 15 19 20 21 22 23 24 25 26 27 28 CC: Patient presents for planned extraction appt. c/o pain UL, / PMHx: ??See EMR Allergies: ??See EMR PT referred from: [facility]?? DX: Acute stress reaction, ??Impacted,?? decay,?? PE: MAIRA 40mm, Tongue WNL, FOM WNL, Mallmapati: III Radiograph :?? FBI #16.?? Gross caries of all remaining erupted teeth.?? Sinuses clear.?? No intrabony pathology noted.?? Exam:?? Unerupted #16.?? Gross caries of all remaining erupted teeth without swelling, purulence/drainag e.?? FOM soft.?? No mucosal lesions noted.? Reviewed procedure and answered all pt/ caregiver questions Surgical timeout completed Procedure: ??22g angiocath placed in?? LT ?? AC?? Pt. sedated per anesthesia record 6?Carpules 2% lido w/epi 1:100k ??2?? Carpules 0.5 % Marcaine w/ epi 1:200k Procedure: Bite block placed #16-Full thickness mucoperiosteal flap made with distal buccal release. Removed buccal bone elevate and deliver with forceps, removed follicle Elevated and delivered teeth with elevators and forceps without complications Surrounding bone smoothed with bone file Socket curetted Copious irrigation with NSS No sinus communication detected No nerve visualized All adjacent teeth intact B/L pressure applied to socket 3-0 CG sutures Gauze placed Good hemostasis achieved Pt tolerated procedure well Pain Management: 600 mg ibuprofen, 500 mg acetaminophen q6h pain Rx: Hydrocodone/APAP 5mg/325 mg disp ??# ??6 tablets ??Ibuprofen 600 mg tablet x 30 1 tab PO every 6 hours ABX: prescribed Amoxicillin 500 mg ??# 21 tablets, 1 tab PO 3 time per day Assisted BY: Chair side/ Airway: ??Stephanie Sinha Documentation: ??Stephanie Sinha?? , 9:48 AM. I attest that the treatment rendered today is completed and treatment met the standard of care. , 1:17 PM. [email or web address] Not available 11/17/2023 15:47:34 Plan of Treatment Reminders Order Date Submit Date Provider Last Modified By Organization Details Last Modified Time Details Appointments None record ed. Lab None record ed. Referral None record ed. Procedures None record ed. Surgeries None record ed. Imaging None record ed. Medication Orders None record ed. Patient TargetsNo targets recorded. Patient InstructionsNo instructions recorded. Reason for Referral None Reported. Medical Equipment None Reported. Medications Name Sig Start Date Stop Date Status Note LastModified by Organization Details LastModified Time amoxicillin 500 mg capsule TAKE ONE CAPSULE BY MOUTH THREE TIMES A DAY UNTIL FINISHED active Not Available Not Available No t Available atorvastatin 40 mg tablet TAKE ONE TABLET BY MOUTH EVERY NIGHT active Not Available Not Available No t Available acetaminophe n 325 mg tablet TAKE TWO TABLETS BY MOUTH EVERY 6 HOURS NEEDED active Not Available Not Available No t Available nicotine 14 mg/24 hr daily transdermal patch APPLY 1 PATCH TO THE SKIN ONCE DAILY active Not Available Not Available N ot Available azithromycin 250 mg tablet TAKE 2 TABLETS BY MOUTH ON DAY 1, AND THEN 1 TABLET DAILY ON DAYS 2-5 active Not Available Not Available No t Available ibuprofen 800 mg tablet TAKE ONE TABLET BY MOUTH THREE TIMES A DAY NEEDED FOR PAIN active Not Available Not Available No t Available fluconazole 150 mg tablet TAKE 1 TABLET BY MOUTH NOW FOR A SINGKE DOSE NEEDED FOR YEAST INFECTION. MAY REPEAT IN 72 HOURS IF SYMPTOMS PERSIST active Not Available Not Available No t Available hydrocodone 5 mg-acetamino phen 325 mg tablet TAKE ONE TABLET BY MOUTH EVERY 4 HOURS NEEDED active Not Available Not Available No t Available prednisone 20 mg tablet TAKE THREE TABLETS BY MOUTH EVERY DAY active Not Available Not Available No t Available metronidazol e 500 mg tablet TAKE ONE TABLET BY MOUTH THREE TIMES A DAY FOR 10 DAYS active Not Available Not Available Not Available ciprofloxaci n 500 mg tablet TAKE 1 TABLET BY MOUTH EVERY 12 HOURS FOR 10 DAYS active Not Available Not Available Not Available Nicotrol 10 mg inhalation cartridge INHALE 6 TO 10 CARTRIDGES BY MOUTH DIRECTED EVERY DAY FOR UP TO 12 WEEKS active Not Available Not Available No t Available amoxicillin 500 mg tablet TAKE ONE TABLET BY MOUTH EVERY 8 HOURS FOR 7 DAYS active Not Available Not Available No t Available levothyroxin e 100 mcg tablet TAKE ONE TABLET BY MOUTH EVERY DAY WITH 88MCG FOR TOTAL DAILY DOSE 188MCG active Not Available Not Available Not Available levothyroxin e 88 mcg tablet TAKE ONE TABLET BY MOUTH EVERY DAY WITH 100MCG FOR TOTAL DAILY DOSE 188MCG active Not Available Not Available Not Available citalopram 20 mg tablet TAKE ONE TABLET BY MOUTH EVERY DAY active Not Available Not Available No t Available Lice Treatment (permethrin) 1 % topical liquid APPLY DIRECTED TO SKIN active Not Available Not Available No t Available meclizine 25 mg tablet TAKE ONE TABLET BY MOUTH EVERY 8 HOURS NEEDED, NO ALCOHOL, NO RECREATIONA L DRUGS, NO DRIVING OR OPERATING MACHINERY WHILE TAKING THIS active Not Available Not Available Not Available metformin 1,000 mg tablet TAKE ONE TABLET BY MOUTH TWICE A DAY active Not Available Not Available No t Available nicotine 21 mg/24 hr daily transdermal patch APPLY ONE PATCH TO THE SKIN EVERY DAY active Not Available Not Available No t Available levothyroxin e 200 mcg tablet TAKE 1 TABLET BY MOUTH DAILY IN THE MORNING ON AN EMPTY STOMACH 30 MINUTES BEFORE EATING TAKE IN ADDITION TO 25MCG TABLET FOR A TOTAL DOSE O active Not Available Not Available No t Available epinephrine 0.3 mg/0.3 mL injection, auto-injecto r INJECT 1 PEN INTRAMUSCUL CALOS DIRECTED NEEDED active Not Available Not Available No t Available ibuprofen 600 mg tablet TAKE ONE TABLET BY MOUTH EVERY 6 HOURS NEEDED active Not Available Not Available No t Available amoxicillin 875 mg-potassium clavulanate 125 mg tablet TAKE ONE TABLET BY MOUTH TWICE A DAY active Not Available Not Available No t Available nicotine 7 mg/24 hr daily transdermal patch APPLY 1 PATCH TO THE SKIN ONCE DAILY active Not Available Not Available N ot Available Ventolin HFA 90 mcg/actuatio n aerosol inhaler INHALE ONE TO TWO PUFFS BY MOUTH EVERY 4 TO 6 HOURS NEEDED active Not Available Not Available No t Available oxycodone 5 mg tablet TAKE ONE TO TWO TABLETS BY MOUTH EVERY 3 HOURS NEEDED FOR PAIN active Not Available Not Available No t Available Flovent HFA 110 mcg/actuatio n aerosol inhaler INHALE 2 PUFFS BY MOUTH TWICE A DAY active Not Available Not Available No t Available chlorhexidin e gluconate 0.12 % mouthwash SWISH 15 MLS (1 CAPFUL) BY MOUTH FOR 30 SECONDS IN THE MORNING AND IN THE EVENING AND THEN SPIT OUT, TWICE A DAY. DO NOT SWALLOW active Not Available Not Available Not Available Prevail Pads USE NEEDED active Not Available Not Available No t Available Trulicity 1.5 mg/0.5 mL subcutaneous pen injector INJECT 1.5MG INTO THE SKIN ONCE A WEEK AFTER 4 TO 8 WEEKS OF 0.75MG active Not Available Not Available No t Available Trulicity 3 mg/0.5 mL subcutaneous pen injector INJECT 3MG SUBCUTANEOU SLY ONCE WEEKLY active Not Available Not Available No t Available Trulicity 4.5 mg/0.5 mL subcutaneous pen injector INJECT 4.5 MG UNDER SKIN ONCE WEEKLY active Not Available Not Available No t Available [employer] At-Home COVID-19 Test kit TEST PER PACKAGE DIRECTIONS active Not Available Not Available N ot Available Paxlovid 300 mg (150 mg x 2)-100 mg tablets in a dose pack TAKE THREE TABLETS BY MOUTH TWICE A DAY FOR 5 DAYS, DO NOT TAKE ATROVASTATI N FOR THE 5 DAYS YOU ARE TAKING THIS MEDICATION active Not Available Not Available N ot Available Vitals None Recorded Social History None recorded. Functional Status None recorded. Mental Status None recorded. Family History Nothing Reported. Medical History No medical history recorded. Gynecological HistoryNo gynecological history recorded. Obstetrics History GPAL:G 0 P 0 0 0 0 Past Encounters Encounter ID Performer Location Encounter Start Date Encounter Closed Date Diagnosis/Indication Diagnosis SNOMED-CT Code [id number] [facility] [address] [place] [address] 10/30/2023 08:42:34 01/02/2024 20:24:29 Health Concerns Section Related Observation LastModified by Organization Detai ls LastModified Time None Recorded Concern Status LastModified by Organization Details LastModified Time None Recorded Advance Directives Directive None Recorded Payers Encounter Date Sequence Insurance Name Policy Number Policy Powell Covered Member ID Powell Member ID Guarantor Name 10/30/2023 1 [facility] (MEDICAID) Yesenia E Pecor [id number] Yesenia E Pecor 10/30/2023 [employer] (MOVED TO HOLD) Yesenia Pecor [id number] Yesenia E Pecor OBGyn Episode No OBEpisode recorded.
--- OUTSIDE RECORDS SUMMARY | 2024-07-02 18:50 | XMS_ITS ---
Author Organization Unknown Address [address] [place] [address] [phone] Phone Care Team Providers Care Major Account Manager Name Role Phone RICKI Arnold Attending Unavailable CHAS Lopez Primary Unavailable Social History Type Status Start Date End Date Code Code Syst em Smoking History Current every day smoker 883627675 SNOMED CT Smoking History Former smoker 6142935 SNOMED CT Smoking History Current some day smoker 11/25/[id number] Sex Female Medications Medication Start Date End Date Route Frequency Dose Code Code System Medication Instructions Home Meds Ibuprofen 200MG Oral Tablet 07/17/2022 09/01/2023 ORAL EVERY 6 HOURS 3 TABLET 994409 RxNorm TAKE 3 TABLET ORAL EVERY 6 HOURS FOR 24 HOURS THEN NEEDED FOR PAIN Benadryl Allergy 25MG Oral Tablet 09/11/2022 09/01/2023 ORAL EVERY 6 HOURS 2 TABLET 3928193 RxNorm TAKE 2 TABLET ORAL EVERY 6 HOURS Zofran 4MG Oral Tablet 10/07/2022 10/04/2023 ORAL NEEDED THREE TIMES A DAY 1 TABLET 698014 RxNorm TAKE 1 TABLET ORAL NEEDED THREE TIMES A DAY oxyCODONE HCl 5MG Oral Tablet 12/14/2022 09/01/2023 ORAL NEEDED EVERY 3 HOURS 5 MILLIGRAMS 7855923 RxNorm TAKE 5 MILLIGRAM S ORAL NEEDED EVERY 3 HOURS Atorvastatin Calcium 40MG Oral Tablet 12/14/2022 Unknown ORAL DAILY 40 MILLIGRAMS 333637 RxNorm TAKE 40 MILLIGRAM S ORAL DAILY Levothyroxine 200MCG Oral Tablet 12/14/2022 09/01/2023 ORAL DAILY 200 MCG 220981 RxNorm TAKE 200 MCG ORAL DAILY ProAir HFA 0.09MG/1Actua tion Inhalation Suspension 12/14/2022 06/02/2023 INHALATI ON NEEDED 1 unit(s) 240552 RxNorm 1 EACH INHALATIO N NEEDED Trulicity 0.75MG/0.5ML Subcutaneous Solution 12/14/2022 09/01/2023 SUBCUTAN EOUS MONDAYS 1.5 MILLIGRAMS 4454165 RxNorm INJECT 1.5 MILLIGRAM S SUBCUTANE OUS MONDAYS metFORMIN HCl 500MG Oral Tablet 12/14/2022 06/01/2023 ORAL TWICE A DAY 1000 MILLIGRAMS 935558 RxNorm TAKE 1000 MILLIGRAM S ORAL TWICE A DAY predniSONE 20MG Oral Tablet 03/06/2023 06/02/2023 ORAL DAILY 1 TABLET 647759 RxNorm TAKE 1 TABLET ORAL DAILY Zithromax 250MG Oral Tablet 03/06/2023 06/02/2023 ORAL DAILY 1 TABLET 541311 RxNorm TAKE 2 TABLETS ORAL DAILY ON DAY 1 AND THEN1 TABLET DAILY ON DAYS 2-5 Albuterol Sulfate 0.09MG/1Actua tion Inhalation Suspension 06/02/2023 Unknown INHALATI ON NEEDED EVERY 4 HOURS 2 PUFF 4926001 RxNorm 2 PUFF INHALATIO N EVERY 4 HOURS FOR 24 HOURS THEN NEEDED FOR Cough/Sandra rtness of breath Zithromax 250MG Oral Tablet 06/02/2023 06/10/2023 ORAL DAILY 1 TABLET 974810 RxNorm TAKE 1 TABLET ORAL DAILY predniSONE 20MG Oral Tablet 06/02/2023 06/10/2023 ORAL DAILY 3 TABLET 678010 RxNorm TAKE 3 TABLET ORAL DAILY Mucinex D 600MG-60mg Oral Tablet, Extended Release 06/02/2023 09/01/2023 ORAL TWICE A DAY 1 TABLET 4573111 RxNorm TAKE 1 TABLET ORAL TWICE A DAY FOR 3-5 DAYS Zithromax 250MG Oral Tablet 06/10/2023 09/01/2023 ORAL DAILY 1 TABLET 653727 RxNorm TAKE 2 TABLETS ORAL DAILY ON DAY 1 AND THEN1 TABLET DAILY ON DAYS 2-5 Ibuprofen 800MG Oral Tablet 08/28/2023 10/04/2023 ORAL EVERY 8 HOURS 1 TABLET 775191 RxNorm TAKE 1 TABLET ORAL EVERY 8 HOURS Penicillin VK 500MG Oral Tablet 08/28/2023 09/01/2023 ORAL THREE TIMES A DAY 1 TABLET 332407 RxNorm TAKE 1 TABLET ORAL THREE TIMES A DAY Tylenol 325MG Oral Tablet 09/01/2023 10/04/2023 ORAL NEEDED EVERY 6 HOURS 2 TABLET 609130 RxNorm TAKE 2 TABLET ORAL NEEDED EVERY 6 HOURS Anbesol Maximum Strength 20% Oromucosal Gel/Jelly 09/01/2023 10/04/2023 OROMUCOS AL THREE TIMES A DAY 1 RxNorm 1 OROMUCOSA L THREE TIMES A DAY Augmentin 875MG-125MG Oral Tablet 09/04/2023 10/04/2023 ORAL TWICE A DAY 1 TABLET 417156 RxNorm TAKE 1 TABLET ORAL TWICE A DAY Meclizine HCl 25MG Oral Tablet 10/04/2023 01/21/2024 ORAL NEEDED EVERY 8 HOURS 1 TABLET 063786 RxNorm TAKE 1 TABLET ORAL NEEDED EVERY 8 HOURS. No alcohol, recreatio nal drugs, driving or operating machinery while taking this. Augmentin 875MG-125MG Oral Tablet 10/26/2023 11/06/2023 ORAL TWICE A DAY 1 TABLET 571780 RxNorm TAKE 1 TABLET ORAL TWICE A DAY Augmentin 875MG-125MG Oral Tablet 11/06/2023 12/11/2023 ORAL TWICE A DAY 1 TABLET 320179 RxNorm TAKE 1 TABLET ORAL TWICE A DAY Tessalon Perles 100MG Oral Capsule, Liquid Filled 11/06/2023 12/11/2023 ORAL NEEDED EVERY 6 HOURS 1 CAPSULE 927251 RxNorm TAKE 1 CAPSULE ORAL NEEDED EVERY 6 HOURS Zithromax 250MG Oral Tablet 02/16/2024 03/29/2024 ORAL DAILY 1 TABLET 190383 RxNorm TAKE 2 TABLETS ORAL DAILY ON DAY 1 AND THEN1 TABLET DAILY ON DAYS 2-5 Keflex 500MG Oral Capsule 03/29/2024 04/06/2024 ORAL THREE TIMES A DAY 1 CAPSULE 305705 RxNorm TAKE 1 CAPSULE ORAL THREE TIMES A DAY Keflex 500MG Oral Capsule 04/06/2024 06/03/2024 ORAL THREE TIMES A DAY 1 CAPSULE 989853 RxNorm TAKE 1 CAPSULE ORAL THREE TIMES [...] Code Code System TYPE 2 DIABETES active 20571643 SNOM ED-CT HYPOTHYROIDISM active 63645349 SNOME D-CT DENTAL CARIES active 21808757 SNOMED -CT ACUTE BRONCHITIS active 28907247 SNO MED-CT SUPERFICIAL FOREIGN BODY, RIGHT FOOT, INITIAL ENCOUNTER active 506515574 SNOMED-CT ASTHMA 03/03/2022 resolved 471912782 SNOMED-CT ANXIETY 01/19/2022 resolved 27910322 SNOMED-CT HLD 09/10/2022 resolved 69998295 SNOMED-CT Allergies and Adverse Reactions Allergy Substance Reaction Severity Start Date Concern Status Code Code System SULFA (sulfonamide) Anaphylaxis (SNOMED-CT: 95844645) Active 39520952 SNOMED-CT MORPHINE Hives (SNOMED-CT: 253711030), Itching (SNOMED-CT: 510543851) Moderate Active 7052 RxNorm BEE POLLEN Anaphylaxis (SNOMED-CT: 44957017) Active 218842 RxNorm DILAUDID Hives (SNOMED-CT: 724639205), Itching (SNOMED-CT: 533928920) Moderate Active 473173 RxNorm Plan of Treatment Symptoms 08/09/2021 LAB DRAW 15MIN 05/30/2024 US PELVIC / TV 11/06/2023 CT CHEST W/O CONTRAST 03/13/2023 CT CHEST W/O CONTRAST 03/04/2023 SYMPTOMS 10/19/2022 LAB DRAW 15MIN 08/02/2022 LAB DRAW 15MIN 05/25/2022 SYMPTOMS 04/28/2022 EXPOSURE 12/07/2021 SYMPTOMS 11/22/2021 SYMPTOMS 2021 Encounters Encounter Diagnosis Start Date Code Code Sys tem Canceled operative procedure 03/04/2023 49493701 SNOMED-CT Personal Care Team Section Performer Name Performer Role Active Date Inactive Da te
--- OUTSIDE RECORDS SUMMARY | 2024-07-02 18:50 | XMS_ITS ---
Author Organization Unknown Address [address] [place] [address] [phone] Phone Care Team Providers Care Mutual Fund Accountant Name Role Phone KATIE BAY Registered Nurse Unavailable DUC Arrington Attending Unavailable CHAS Lopez Primary Unavailable Results XR CHEST 2V PA AND LATERAL - Completed: 01/09/2023 03:18 LOINC: [facility] [place], [place] [address] [employer] REPORT Patient Name: KESHA LAGOS Tracy MRN: Sex: : Age: [id number] F 1980 42 Account: Accession: Admit: StayType: [id number] 01/08/2023 E/R Ordered: Order ID: Submitted: Ordering Provider: 01/08/2023 23:31 [id number] [facility] CAITLYN XAVIER Completed: Technologist: Resulted: 01/09/2023 03:18 DLP 01/09/2023 [...] em Smoking History Current every day smoker 295201376 SNOMED CT Smoking History Former smoker 3567662 SNOMED CT Smoking History Current some day smoker 11/25/[id number] Sex Female Vital Signs Vital Sign Value Unit [place] Value [place] Unit Date/Time Recent/Initial? Code Code System Body Mass Index 45.47 kg/m2 01/08/2023 23:37 Initial 45440 -5 LOINC Systolic Blood Pressure 136 mm[Hg] 01/08/2023 23:37 Initial 8480- 6 LOINC Diastolic Blood Pressure 85 mm[Hg] 01/08/2023 23:37 Initial 8462- 4 LOINC Body Surface Area 2.72 m2 01/08/2023 23:37 Initial 3140- 1 LOINC Height 180.340 0 cm 71.00 in 01/08/2023 23:37 Initial 8302- 2 LOINC O2 Saturation 99 % 2022 23:37 Initial 68174 -5 LOINC Pulse 91.0 /min 01/08/2023 23:37 Initial 8867- 4 LOINC Respiration 18 /min 01/08/20 23:37 Initial 9279- 1 LOINC Temperature 36.7 Teodora 98.1 F 01/08/20 23:37 Initial 8310- 5 LOINC Weight 147.87 kg 326.00 lbs 01/08/2023 23:37 Initial 80655 -7 [facility] Medications Medication Start Date End Date Route Frequency Dose Code Code System Medication Instructions Home Meds Ibuprofen 200MG Oral Tablet 07/17/2022 09/01/2023 ORAL EVERY 6 HOURS 3 TABLET 249689 RxNorm TAKE 3 TABLET ORAL EVERY 6 HOURS FOR 24 HOURS THEN NEEDED FOR PAIN Benadryl Allergy 25MG Oral Tablet 09/11/2022 09/01/2023 ORAL EVERY 6 HOURS 2 TABLET 9100967 RxNorm TAKE 2 TABLET ORAL EVERY 6 HOURS Zofran 4MG Oral Tablet 10/07/2022 10/04/2023 ORAL NEEDED THREE TIMES A DAY 1 TABLET 774529 RxNorm TAKE 1 TABLET ORAL NEEDED THREE TIMES A DAY oxyCODONE HCl 5MG Oral Tablet 12/14/2022 09/01/2023 ORAL NEEDED EVERY 3 HOURS 5 MILLIGRAMS 8699690 RxNorm TAKE 5 MILLIGRAM S ORAL NEEDED EVERY 3 HOURS Atorvastatin Calcium 40MG Oral Tablet 12/14/2022 Unknown ORAL DAILY 40 MILLIGRAMS 946653 RxNorm TAKE 40 MILLIGRAM S ORAL DAILY Levothyroxine 200MCG Oral Tablet 12/14/2022 09/01/2023 ORAL DAILY 200 MCG 766771 RxNorm TAKE 200 MCG ORAL DAILY ProAir HFA 0.09MG/1Actua tion Inhalation Suspension 12/14/2022 06/02/2023 INHALATI ON NEEDED 1 unit(s) 330648 RxNorm 1 EACH INHALATIO N NEEDED Trulicity 0.75MG/0.5ML Subcutaneous Solution 12/14/2022 09/01/2023 SUBCUTAN EOUS MONDAYS 1.5 MILLIGRAMS 0748194 RxNorm INJECT 1.5 MILLIGRAM S SUBCUTANE OUS MONDAYS metFORMIN HCl 500MG Oral Tablet 12/14/2022 06/01/2023 ORAL TWICE A DAY 1000 MILLIGRAMS 008750 RxNorm TAKE 1000 MILLIGRAM S ORAL TWICE A DAY predniSONE 20MG Oral Tablet 03/06/2023 06/02/2023 ORAL DAILY 1 TABLET 033519 RxNorm TAKE 1 TABLET ORAL DAILY Zithromax 250MG Oral Tablet 03/06/2023 06/02/2023 ORAL DAILY 1 TABLET 786736 RxNorm TAKE 2 TABLETS ORAL DAILY ON DAY 1 AND THEN1 TABLET DAILY ON DAYS 2-5 Albuterol Sulfate 0.09MG/1Actua tion Inhalation Suspension 06/02/2023 Unknown INHALATI ON NEEDED EVERY 4 HOURS 2 PUFF 9238414 RxNorm 2 PUFF INHALATIO N EVERY 4 HOURS FOR 24 HOURS THEN NEEDED FOR Cough/Sandra rtness of breath Zithromax 250MG Oral Tablet 06/02/2023 06/10/2023 ORAL DAILY 1 TABLET 063368 RxNorm TAKE 1 TABLET ORAL DAILY predniSONE 20MG Oral Tablet 06/02/2023 06/10/2023 ORAL DAILY 3 TABLET 816710 RxNorm TAKE 3 TABLET ORAL DAILY Mucinex D 600MG-60mg Oral Tablet, Extended Release 06/02/2023 09/01/2023 ORAL TWICE A DAY 1 TABLET 8034417 RxNorm TAKE 1 TABLET ORAL TWICE A DAY FOR 3-5 DAYS Zithromax 250MG Oral Tablet 06/10/2023 09/01/2023 ORAL DAILY 1 TABLET 592026 RxNorm TAKE 2 TABLETS ORAL DAILY ON DAY 1 AND THEN1 TABLET DAILY ON DAYS 2-5 Ibuprofen 800MG Oral Tablet 08/28/2023 10/04/2023 ORAL EVERY 8 HOURS 1 TABLET 276083 RxNorm TAKE 1 TABLET ORAL EVERY 8 HOURS Penicillin VK 500MG Oral Tablet 08/28/2023 09/01/2023 ORAL THREE TIMES A DAY 1 TABLET 162999 RxNorm TAKE 1 TABLET ORAL THREE TIMES A DAY Tylenol 325MG Oral Tablet 09/01/2023 10/04/2023 ORAL NEEDED EVERY 6 HOURS 2 TABLET 262128 RxNorm TAKE 2 TABLET ORAL NEEDED EVERY 6 HOURS Anbesol Maximum Strength 20% Oromucosal Gel/Jelly 09/01/2023 10/04/2023 OROMUCOS AL THREE TIMES A DAY 1 RxNorm 1 OROMUCOSA L THREE TIMES A DAY Augmentin 875MG-125MG Oral Tablet 09/04/2023 10/04/2023 ORAL TWICE A DAY 1 TABLET 819286 RxNorm TAKE 1 TABLET ORAL TWICE A DAY Meclizine HCl 25MG Oral Tablet 10/04/2023 01/21/2024 ORAL NEEDED EVERY 8 HOURS 1 TABLET 373820 RxNorm TAKE 1 TABLET ORAL NEEDED EVERY 8 HOURS. No alcohol, recreatio nal drugs, driving or operating machinery while taking this. Augmentin 875MG-125MG Oral Tablet 10/26/2023 11/06/2023 ORAL TWICE A DAY 1 TABLET 897577 RxNorm TAKE 1 TABLET ORAL TWICE A DAY Augmentin 875MG-125MG Oral Tablet 11/06/2023 12/11/2023 ORAL TWICE A DAY 1 TABLET 082935 RxNorm TAKE 1 TABLET ORAL TWICE A DAY Tessalon Perles 100MG Oral Capsule, Liquid Filled 11/06/2023 12/11/2023 ORAL NEEDED EVERY 6 HOURS 1 CAPSULE 312133 RxNorm TAKE 1 CAPSULE ORAL NEEDED EVERY 6 HOURS Zithromax 250MG Oral Tablet 02/16/2024 03/29/2024 ORAL DAILY 1 TABLET 324676 RxNorm TAKE 2 TABLETS ORAL DAILY ON DAY 1 AND THEN1 TABLET DAILY ON DAYS 2-5 Keflex 500MG Oral Capsule 03/29/2024 04/06/2024 ORAL THREE TIMES A DAY 1 CAPSULE 968840 RxNorm TAKE 1 CAPSULE ORAL THREE TIMES A DAY Keflex 500MG Oral Capsule 04/06/2024 06/03/2024 ORAL THREE TIMES A DAY 1 CAPSULE 343860 RxNorm TAKE 1 CAPSULE ORAL THREE TIMES [...] Code Code System TYPE 2 DIABETES active 78047981 SNOM ED-CT HYPOTHYROIDISM active 08603835 SNOME D-CT DENTAL CARIES active 08372794 SNOMED -CT ACUTE BRONCHITIS active 63451697 SNO MED-CT SUPERFICIAL FOREIGN BODY, RIGHT FOOT, INITIAL ENCOUNTER active 783079720 SNOMED-CT ASTHMA 03/03/2022 resolved 857094780 SNOMED-CT ANXIETY 01/19/2022 resolved 81181258 SNOMED-CT HLD 09/10/2022 resolved 86906094 SNOMED-CT Allergies and Adverse Reactions Allergy Substance Reaction Severity Start Date Concern Status Code Code System SULFA (sulfonamide) Anaphylaxis (SNOMED-CT: 97189703) Active 88626435 SNOMED-CT MORPHINE Hives (SNOMED-CT: 554994756), Itching (SNOMED-CT: 831171897) Moderate Active 7052 RxNorm BEE POLLEN Anaphylaxis (SNOMED-CT: 87370921) Active 262814 RxNorm DILAUDID Hives (SNOMED-CT: 588929076), Itching (SNOMED-CT: 308896924) Moderate Active 943242 RxNorm Plan of Treatment Symptoms 08/09/2021 LAB [...]
--- OUTSIDE RECORDS SUMMARY | 2024-07-02 18:50 | XMS_ITS | Clinical Summary ---
Author Organization [facility] Address [address] [place] [address] Care Team Providers Care Inspector Balance Bridge Name Role Phone Perla Zamorano BODY PRESS OPERATOR Primary Care Provider [phone] Allergies Active Allergy Reactions Criticality Noted Date Comments Hydromorphone 11/19/2018 itching Morphine Hives 08/29/2017 Penicillin V Potassium 07/20/2022 Patient does not recall this alergy Venlafaxine 07/20/2022 Medications Medication Sig Dispensed Refills Start Date End Date Status albuterol (PROVENTIL HFA, VENTOLIN HFA) 90 mcg/Actuation inhaler Inhale 2 Puffs as directed every 4 hours. Active metFORMIN (GLUCOPHAGE) 500 mg tablet Take 1,000 mg by mouth 2 times daily. Active levothyroxine (SYNTHROID) 112 mcg tabletIndications:Ta ke 2 tabs Take 2 tabs by mouth daily. 180 Tab 2 05/29/2018 Active Additional Information Patient taking differently: 225 mcg, (No instructions reported), (No indications reported), Reported on 03/27/2023 blood glucose test strips One touch verio meter or any brand compatible with meter and covered by Pt's insurance. Tests QID. 100 Each 3 06/16/2018 Active acetaminophen (TYLENOL) 325 mg tablet Take 2 Tabs by mouth every 4 hours as needed for Pain. 300 Tab 5 10/30/2018 Active IBUPROFEN ORAL Take by mouth. PT states she takes 1000 mg Active dulaglutide (TRULICITY) 1.5 mg/0.5 mL subcutaneous pen Inject 0.5 mL into the skin every 7 days. Active atorvastatin (LIPITOR) 40 mg tablet Take 1 Tablet by mouth daily. Active Active Problems Patient Care Coordination No te Formatting of this note migh t be different from the original. MFM Please schedule monthly FUR's with Priscila. 2021 [place] MEDICAID ACO PLAN X8 TC# [id number] Sirois 04/13/2022 12:22 Problem Noted Date Diagnosed Date Class 3 severe obesity in adult ([facility]) 2021 Renal mass 04/27/2022 Overview: Added automatically from request for surgery [id number] MATT II (cervical intraepithelial neoplasia II) 0 11/30/2019 Overview: 2000 ASCUS 2008, 2009, 2010 neg paps 02/2018 pap neg, HPV pos 05/2019 LSIL, HPV pos, vulvar bx LIEN I /condyloma 11/2019 colpo: ECC- MATT II, vag bx condyloma, cx bx neg. Wound infection after surgery 11/19/2018 Overview: Seen in ED 20 days post-op on 11/19/18 with purulent drainage and 2cm opening at right aspect of incision. 1/4 packing placed in the wound, small tract out to the right side laterally. On Keflex course as prescribed by OSH Wound culture swab sent from the ED. Has home nursing visits to help with daily wound packing. [ ] See in f/u in clinic on 11/21 [ ] Complete course of Keflex [ ] Women's health initiative social media designer consulted on 11/19 - needs assistance with gas money and needs therapist referral [x] Called [facility] on 11/19 to inform about needs for daily wound packing Breech presentation of fetus 10/14/2018 Overview: Oblique breech at 37w0d. ECV not offered as patient declining TOLAC. - Proceed with rLTCS as planned Last Assessment & Plan: Oblique breech at 37w0d. ECV not offered as patient declining TOLAC. - Proceed with rLTCS as planned Type 2 diabetes mellitus, wi thout long-term current use of insulin 05/23/2018 Last Assessment & Plan: Pre-conception condition note S: She feels her sugars are pretty good and doesn't think she can to do more. Her blood sugar log is very sparse. She denies feeling very low. O: Her blood sugars over the past 2 weeks: Fasting 1/2 < 95, range 90-110 2 hr post breakfast 1/1 < 120, range 105 Pre lunch 0/1 < 100, range 110 2 hr post lunch 1/2 < 120, range 98-126 2 hr post dinner 2/4 < 120, range 100-133 A: Suboptimally controlled type 2 DM Poor blood sugar monitoring P: I told her that we really needed more fingerstick BS values to understand her control so that we could safely adjust her medications. She said she does her BS when she thinks about it and is doing the best she can. Her life is very hectic and she just isn't able to get on a regular schedule with all the pressures from both herself and her kids. She says she will do her best. I spent the entire 15-minutes of my 15-minutes spent on management pre- conception medical conditions (Diabetes, hypothyroidism) in [id number] counseling managing those conditions. Type 2 diabetes mellitus aff ecting in second trimester, antepartum 05/22/2018 Overview: Dx'd 2-3 years ago Treated with metformin 500 mg daily prior to Continued on metformin in , but with poor compliance Normal detailed and echo Monthly growth US and weekly BPPs scheduled 09/09: hasn't been taking metformin or checking BS, encouraged her to do both, growth US today, random BS = 107 in clinic, 08/07: HbA1c 5.2 Last Assessment & Plan: Ordered for metformin 500mg qd. Poorly compliant with medication and FS monitoring. States fastings have been up to 123 and 2h post-dinner up to 200s in last 2 weeks. No log available for review today. EFW today 2969g (47%ile). WILLY 15.7cm. BPP 8/10 (points off for breathing). - Increase metformin to 500mg bid - Encourage closer FS monitoring - Repeat antepartum testing BPP+NST in 1 week - Review FS and check BP with RN as planning to no show MD visit next week\ Supervision of high risk , antepartum 0 04/30/2018 Overview: [x] Datin11/04/2018, by Ultrasound [x] PN labs: Rh A+ /Ab neg /Rubella imm/Varicella /HepB neg /HepC neg /HIV neg /RPR neg Pap: 02/2018 NIL, Positive HPV G/C: neg/neg Urine cx: neg [x] Screening: cfDNA = low-risk [x] Flu vaccines (Sep-March)-given 09/04 at PCP [x] TDaP (after 28wga)-given 09/09 [x] Anatomy scan: normal detailed, very limited due to habitus, remaining poorly-seen anatomy seen at 26 weeks and on echo [x] CBC (26-28wks): Hct 39.1 on 09/11/18 -Rhogam if indicated (28wks) -N/A, A+ [ ] Growth US: ordered monthly for DM-2 32w0d: 36w: [ ] GBS: negative Allergies? [ ] HSV? [x] Contraception: plans BTL, papers signed 08/07 Repeat C/S c BTL held for 11/03 @ [address] Dejesus. 09-09-18 ARVIND Pickett C/S moved to October 28 at 9am w/ Dr. Miller @ 39+0. ARVIND Morfin 11.18 Last Assessment & Plan: Up to date with routine care although notably missed multiple visits. s/p flu and tdap vaccines. Second trimester CBC drawn at 36 weeks: Hct 39.1. - GBS sent today Hypothyroidism affecting , antepartum 0 04/30/2018 Overview: Taking 224 mcg levothyroxine daily TSH at [facility] was 0.29 on 03/27/2018 05/22/18: TSH 0.13, FT4 1.4 08/07/18: TSH 3.04, T4 1.1 [ ] 09/16 Last Assessment & Plan: TSH ~1 month ago slightly above goal at 3.04 Stable dose of 224 mcg throughout Will repeat TFTs next week and increase levothyroxine if elevated Anxiety disorder affecting , antepartum 04/30/2018 Last Assessment & Plan: She reports she is not on medications but is in counseling and has a new counselor. Depression affecting 04/30/2018 Overview: States very depressed Starting wellbutrin 150mg daily on 11/19/[address] Zhao Social Work Women's Health Initiative Referral placed for assistance with finding therapist. History of delivery, antepartum 018 Overview: She desires a repeat . Readdress later in Plans RLTCS/BTL-tubal papers signed 08/07 Last Assessment & Plan: Desires rLTCS+BTL. Declines TOLAC even if presents in labor. Tubal papers signed in 07/2018. - CS scheduled for 39+0 (10/28/18) Asthma affecting , antepartum 8 Tobacco use affecting pregna ncy in first trimester, antepartum 04/30/2018 Maternal morbid obesity, ant epartum, second trimester ([facility]) 11/23/2009 Overview: BMI 47 Has lost a significant amount of weight over the last year with improved dietary habits 09/09: Has lost 36 lbs in to date, not restricting calories Last Assessment & Plan: Has lost 36 lbs in to date, not restricting calories Applauded her dietary efforts Will follow growth monthly Resolved Problems Problem Noted Date Diagnosed Date Resolved Date Acquired hypothyroidism 05/23/201808/25 Overview: Last TSH at [facility] was 0.29 on 03/27/2018 05/22/18: TSH 0.13, FT4 1.4 Last Assessment & Plan: Pre-conception medical condition note S: She says she is feeling run down but no signs of temperature instability or palpitations. She thinks she is run down from stress and difficulty sleeping rather than her thyroid. O: She was supposed to have her TSH cascade drawn after her last appointment but she skipped going to the lab. See her vitals A: Acquired hypothyroidism in uncertain control currently on levothyroxine 112 mcg. P: I again emphasized the importance of getting to the lab so we can check her levels and make dosage adjustments. I spent the entire 15-minutes of my 15-minutes spent on management pre- conception medical conditions (Diabetes, hypothyroidism) in [id number] counseling managing those conditions. BMI 45.0-49.9, adult ([facility]) 05/22/2018 09/09/2018 Overview: BMI 47.92 Encounter for routine screen ing for malformation using ultrasonics 11/23/2009 8 Encounters Date Type Department Care Team Description 05/30/2024 Lab Requisition [facility] Pathology & Laboratory Medicine - [address] [address] Outr Resulting Lab, Provider from Last 3 Months Immunizations Name Administration Dates Next Due Tdap Vaccine =>8YO IM 09/09/2018 Surgical History Surgery Date Site/Laterality Comments SECTION 2009,2017 uv and Coply COSMETIC SURGERY 4 yr old to face and forhead CHOLECYSTECTOMY MOHS SURGERY 08/06/2023 Left BCC nasolabial fold Medical History Medical History Date Comments Anxiety Migraines Depression stopped prozac 1 when discovered Hypothyroidism affecting pre gnancy, antepartum 04/30/2018 Panic attacks 04/25/20 had with panic attack Vertigo 04/25/20 gets when has migranes Arthritis 04/25/20 knees and spine History of epidural anesthesia Had rash during surgery and other on had worn off before done Mass of right kidney Diabetes mellitus affecting in first trimester 04/30/2018 Nausea & vomiting Anesthesia complication give pt migraines 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 Went to ED 07/22/22 continues on oral ABX after IV abx infusion, facial CT negative for new drainable abscess. Has apt for multiple extractions on 07/24/[address] Abdalla- WBC 14.9 in ED- Exercise involving walking - some SON due to asthma, pain is limiting Asthma chronic cough, b aseline; rescue inhaler bi-weekly; Sleep apnea no cpap or bipap Diabetes mellitus, type 2 ([facility]) A1C 8.7 (05/25/22); drawn more recently per pt- Hypothyroidism GERD (gastroesophageal reflux disease) 04/25/20 mint leaves help, herbal remidies; 08/09/22- controlled TUMs prn- Rash sores on stomach from body rubbing and moisture- Class 3 severe obesity in ad ult ([facility]) 08/16/2022 Family History Medical History Relation Comments Heart Disease Father Substance Abuse Father Cancer Mother Miscarriages / Stillbirths Paternal Grandmother Relation Status Comments Father Mother Paternal Grandmother Social History Tobacco Use Types Packs/Day Years Used Date Smoking Tobacco: Every Day Cigarettes 0.7 28.6 Started: 1995 Smokeless Tobacco: Never Tobacco Cessation:Ready to Q uit: Not Asked; Counseling Given: Not Answered Alcohol Use Standard Drinks/Week Comments No 0 (1 standard drink = 0.6 oz pur e alcohol) recovery since 2006 PHQ-2 Answer Date Recorded PHQ-2 Score 3 06/26/2020 Interpersonal Safety Answer Date Record ed Physically Hurt Never 06/26/2020 Verbally Threaten Not on file 06/26/2020 Sex and Gender Information Value Date Recorded Sex Assigned at Female 05/03/2022 19:33 EDT Gender Identity Female 05/02/2020 15:51 EDT Sexual Orientation Straight 05/03/2022 19 :33 EDT Obstetrics History Para Term AB IAB SAB Ectopic Multiple Livin g Live Births 3 3 3 0 3 3 Date Outcome GA Total Labor Labor/2nd/3rd Weight Sex Type Anes PTL Kanchan A1 A5 Name Clin 002 Term 42w 0d 3402 g (7 lb 8 oz) M Vag-S pont Spina l,Epi dural Living Comments:System Genera ivonne. Please review and update details. 010 Term 40w 0d 3714 g (8 lb 3 oz) M CS-LT ranv Spina l,Epi dural N Living Delivery Location:[facility] 018 Term 39w 0d 2912 g (6 lb 6.7 oz) M CS-LS T Living 8 9 CHARLY ,Yesenia Atkinson MD Delivery Location:[facility] ([address]) Last Filed Vital Signs Vital Sign Reading Time Taken Comments Blood Pressure 133/88 08/17/2022 1303 EDT Pulse 92 08/17/2022 1303 EDT Temperature 36.6 ??C (97.9 ??F) 08/17/2022 1303 EDT Respiratory Rate 18 08/17/2022 1303 EDT Oxygen Saturation 96% 08/17/2022 1303 EDT Inhaled Oxygen Concentration - - Weight 152.1 kg (335 lb 5.1 oz) 08/16/2022 0739 EDT Height 180.3 cm (5' 11) 08/16/2022 0739 EDT Body Mass Index 46.77 08/16/2022 0739 EDT Plan of Treatment Health Maintenance Due Date Last Done Comments Asthma Action Plan 1981 Eye Exam 1981 Foot Exam 1981 Lung Function Test (Spirometry) 1981 Microalbumin/Creatinine Ratio 1981 Lipid Profile Screening (Cholesterol) 1984 Pneumococcal Immunization (1 of 2 - PCV) 1987 Hepatitis B Vaccine (1 of 3 - 19+ 3-dose series) 2000 Hemoglobin A1C (Ha1C) 06/10/2023 12/11/2022 , 08/07/2018, 09/13/2009 COVID-19 Vaccine (1 - 2022-2 4 season) 2023 Hepatitis C Screen Completed 05/23/2023, 1 , 12/22/2007, Additional history exists Medical Devices Implanted Type Area Manager Fire Device Identifier Shelf Expiration Date Model / Serial / Lot Agent Hemostat Sponge Sys Luer Lock Applicator Tip 5ml Floseal [id number] - [id number] Implanted:Qty: 1 on 08/16/2022 by Juan Solitario MD at [facility] Right: Kidney BARBA/DIALYSIS DIV DEREK. 06/07/2024 [id number] / / Procedures Procedure Name Priority Date/Time Associated Diagnosis Comments CCP ANTIBODIES Routine 05/30/2024 10:48 EDT HEPATITIS C AB W REFLEX TO HCV RNA BY PCR Routine 05/23/2023 12:00 EDT HEMOGLOBIN A1C Routine 12/11/2022 10:30 EST from Last 3 Months or Most Recently Relevant to Health Maintenance Results * CCP ANTIBODIES (05/30/2024 10:48 EDT) Pathologist [facility] CCP Antibodies <2.5 <5.0 U/mL 06/01/2024 9:10 EDT [facility] Blood VENOUS BLOOD / Unknown 05/30/2024 10:48 EDT 05/30/2024 21:10 EDT Provider Outr Resulting Lab IMMUNOLOGY A ND SEROLOGY ORDERABLES Performing Organization Address City/[facility]/ZIP Co de Phone Number [facility] [address] [place] [address] * HEPATITIS C AB W REFLEX TO HCV RNA BY PCR (05/23/2023 12:00 EDT) [facility] Hep C Antibody Negative Negative 05/27/2023 11:12 EDT [facility] Blood VENOUS BLOOD / Unknown 05/23/2023 12:00 EDT 05/24/2023 18:40 EDT Provider Outr Resulting Lab CHEMISTRY & BLOOD GAS ORDERABLES Performing Organization Address City/[facility]/ZIP Co de Phone Number [facility] [address] [place] [address] * (ABNORMAL) HEMOGLOBIN A1C (12/11/2022 10:30 EST) [facility] Hemoglobin A1c 6.3(H) <5.7 % 12/11/2022 22:47 EST [facility] Comment: Glycemic Status References: Normal: ??<5.7% Pre-Diabetes: ??5.7% - 6.4% Diagnostic of Diabetes: ??> or = 6.5% (if confirmed) Est Avg Glucose 134 mg/dL 22:47 EST [facility] Comment:The eAG represents t he A1c result expressed as average glucose in mg/dL. Blood VENOUS BLOOD / Unknown 12/11/2022 10:30 EST 12/11/2022 21:26 EST Provider Outr Resulting Lab CHEMISTRY & BLOOD GAS ORDERABLES [facility] [address] [place] [address] from Last 3 Months or Most Recently Relevant to Health Maintenance Advance Directives For more information, please contact: [phone] * Full Code (Latest Code Status on File) Date Activated Date Inactivated Comments 08/16/2022 7:37 08/17/2022 19:11 Question Answer Comments When the patient has NO PULSE: Full Code / CPR Who Made the Decision? Default/Not Discussed * Full Code Date Activated Date Inactivated Comments 05/05/2020 11:33 05/05/2020 18:53 Question Answer Comments Reason for decision includes: Full code consistent with overall plan of care Who participated in the discussion? Not Discusse d * Full Code Date Activated Date Inactivated Comments 10/28/2018 14:13 10/30/2018 16:14 Question Answer Comments Reason for decision includes: Full code consistent with overall plan of care Who participated in the discussion? Not Discusse d * Full Code Date Activated Date Inactivated Comments 10/28/2018 1:49 10/28/2018 14:13 Question Answer Comments Reason for decision includes: Full code consistent with overall plan of care Who participated in the discussion? Not Discusse d * Full Code Date Activated Date Inactivated Comments 10/23/2018 2:41 10/23/2018 7:06 Question Answer Comments Reason for decision includes: Full code consistent with overall plan of care Who participated in the discussion? Not Discusse d Care Teams Inspector Balance Bridge Relationship Specialty Start Date End Date Perla Zamorano, BODY PRESS OPERATOR [address] [place] [address] PCP - General 04/26/22
--- OUTSIDE RECORDS SUMMARY | 2024-07-02 18:51 | XMS_ITS | Encounter Summary ---
Author Organization [facility] Address [address] [place] [address] Care Team Providers Care Jail Manager Name Role Phone Perla Zamorano SKI GUIDE Primary Care Provider [phone] Encounter Details Date Type Department Care Team (Late st Contact Info) Description 05/27/2023 Lab Requisition [facility] Pathology & Laboratory Medicine - [address] [address] Perla Zamorano, SKI GUIDE [address] [place], [place] [address] Encounter for screening for malignant neoplasm of cervix; Encounter for general adult medical examination with abnormal findings Social History Tobacco Use Types Packs/Day Years Used Date Smoking Tobacco: Every Day Cigarettes 0.7 28.6 Started: 1995 Smokeless Tobacco: Never Alcohol Use Standard Drinks/Week Comments No 0 [...] Sexual Orientation Straight 05/03/2022 19 :33 EDT documented as of this encounter Functional Status Functional Status Response Date of Assess ment Are you deaf or do you have serious difficulty h earing? No 08/17/2022 Are you blind or do you have serious difficulty seeing, even when wearing glasses? No 08/17/2022 Do you have serious difficul ty walking or climbing stairs? (5 years old or older) No 08/17/2022 Do you have difficulty dress ing or bathing? (5 years old or older) No 08/17/2022 Because of a physical, menta l, or emotional condition, do you have difficulty doing errands alone such as visiting a doctor's office or shopping? (15 years old or older) No 08/17/2022 Cognitive Status Response Date of Assessm ent Because of a physical, menta l, or emotional condition, do you have serious difficulty concentrating, remembering, or making decisions? (5 years old or older) No 08/17/2022 documented as of this encounter Plan of Treatment Not on file documented as of this encounter Procedures Procedure Name Priority Date/Time Associated Diagnosis Comments PAP TEST Today 05/23/2023 11:00 EDT Encounter for screening for malignant neoplasm of cervix Encounter for general adult medical examination with abnormal findings HPV DNA DETECTION WITH GENOTYPING, PCR Today 05/23/2023 11:00 EDT Encounter for screening for malignant neoplasm of cervix Encounter for general adult medical examination with abnormal findings documented in this encounter Results * HUMAN PAPILLOMAVIRUS (HPV) DETECTION-HIGH RISK TYPES (05/23/2023 11:00 EDT) HPV other High Risk types, PCR Negative Negative 06/07/2023 16:15 EDT [facility] Comment:No E6 or E7 mRNA is detected from HPV types 16,18,31,33,35,39,45,51,52,56,58,59,66, and 68 by medical physics researcher mediated amplification. Papanicolaou smear specimen (specimen) CERVIX UTERI STRUCTURE / Unknown 05/23/2023 11:00 EDT 06/06/2023 16:40 EDT Perla Zamorano NP MICROBIOLOGY - GENER AL ORDERABLES [facility] [address] [place] [address] * PAP TEST (05/23/2023 11:00 EDT) Specimens A. Cervix and/or Endocervix , ThinPrep Imaging System with Manual Evaluation 06/07/2023 16:15 T [facility] Specimen Adequacy Satisfactory for Evaluation - transformation zone component absent 06/07/2023 16:15 EDT [facility] General Categorization Negative for intraepithelial lesion or malignancy 06/07/2023 16:15 EDT [facility] Descriptive Diagnosis Shift in aide present suggestive of bacterial vaginosis. 06/07/2023 16:15 EDT [facility] Attestation . 06/07/2023 16:15 [facility] at 1615 Clinical History See below 06/07/20 23 16:15 T [facility] HPV The result for the Human Papillomavirus (HPV) Detection-High Risk Types is Negative. No E6 or E7 mRNA is detected from HPV types 16,18,31,33,35,39 ,45,51,52,56,58,5 9,66, and 68 by medical physics researcher mediated amplification.Eli ting was performed on specimen [id number] and was resulted on 06/07/2023 1615 EDT by FELIX, LAB INSTRUMENT RESULTS IN 06/07/2023 16:15 T [facility] Performing Lab [facility] 06/07/2023 16:15 T [facility] Scanned Images 06/07/2023 16:15 T [facility] Papanicolaou smear specimen (specimen) CERVIX UTERI STRUCTURE / Unknown 05/23/2023 11:00 EDT 05/27/2023 11:24 EDT Perla Zamorano NP PATHOLOGY ORDERABLES [facility] [address] [place] [address] documented in this encounter Visit Diagnoses Diagnosis Encounter for screening for malignant neoplasm of cervix Screening for malignant neoplasm of the cervix Encounter for general adult medical examination with abnormal findings Unspecified general medical examination documented in this encounter Care Teams Jail Manager Relationship Specialty Start Date End Date Perla Zamorano, MARIPOSA [address] [place] [address] PCP - General 04/26/22 documented as of this encounter
--- OUTSIDE RECORDS SUMMARY | 2024-07-02 18:51 | XMS_ITS | Encounter Summary ---
Author Organization [facility] Address [address] [place] [address] Care Team Providers Care Leather Piece Inspector Name Role Phone Lona Perla John AUDIOLOGY TECHNICIAN Primary Care Provider [phone] Reason for Visit * Reason Onset Date Comments Post-procedure Pain 08/20/2022 Encounter Details Date Type Department Care Team (Late st Contact Info) Description 08/20/2022 Telephone [facility] Urology - [address] [id number] Juan Solitario MD [address] [place] [address], [address] [place] [address] Post-procedure Pain Social History Tobacco Use Types Packs/Day Years [...] No 08/17/2022 documented as of this encounter Miscellaneous Notes * Telephone Encounter - DanaStefaniaARVIND randle - 08/20/2022 1215 EDT TC to patient, she reports she continues to have significant pain since her procedure. The pain is not incisional, but reports abdominal, belly, shoulder and chest area due to gas and pressure from procedure. She reports yesterday was the first day she could lay flat. She has not been walking much as it is too painful. She is having nausea with a minimal appetite. Reports she recently ate half a sandwich, sausage, soup. She is passing minimal gas and reports she did have two small bowel movements yesterday. She also reports she has a pain in her arm from an IV site that was not in correct place. Discussed with patient proper nutrition, fluids and importance of ambulation. She has not taken anything for her bowels stating her diabetic medications will help. She has been taking tylenol and oxycodone for pain, but after today she will not have any more pain medication. Denied fever and incision is healing well. She is looking for something to help her pain and relief of gas/ pressure bloating. Will discuss with Dr. Solitario. Per Dr. Solitario Can try combination of ibuprofen and Tylenol. May work better than either alone TC to patient, reviewed medication regimen of Ibuprofen and Tylenol, dietary choices, ambulation and fluids. Patient has been applying heat to blown, painful old IV site, she will continue with heat.All questions answered, she is aware to contact our office with any further questions or concerns * Telephone Encounter - Lenin Tadeo - 08/20/2022 1057 EDT The patient states she is in a great deal of pain. She says it hurts to walk, poop or breathe. Please call to discuss documented in this encounter Plan of Treatment Not on file documented as of this encounter Visit Diagnoses Not on filedocumented in this encounter Care Teams Leather Piece Inspector Relationship Specialty Start Date End Date Perla Zamorano, AUDIOLOGY TECHNICIAN [address] [place] [address] PCP - General 04/26/22 documented as of this encounter
--- OUTSIDE RECORDS SUMMARY | 2024-07-02 18:51 | XMS_ITS | Encounter Summary ---
Author Organization [facility] Address [address] [place] [address] Care Team Providers Care Temple Marker Name Role Phone Lona Perla John AUTOMOBILE BODY WORKER Primary Care Provider [phone] Encounter Details Date Type Department Care Team (Late st Contact Info) Description 03/27/2023 Orders Only [facility] Radiology - [address] [place] [address] [place], [place] [address] Yassine Gray MD [address] [place] [id number] Social History Tobacco Use Types Packs/Day Years [...] on filedocumented in this encounter Care Teams Temple Marker Relationship Specialty Start Date End Date Perla Zamorano NP [address] [place] [address] PCP - General 04/26/22 documented as of this encounter
--- OUTSIDE RECORDS SUMMARY | 2024-07-02 18:51 | XMS_ITS | Encounter Summary ---
Author Organization [facility] Address [address] [place] [address] Care Team Providers Care Director Of Career Services Name Role Phone Lona Perla John SUPERVISOR IN CHARGE Primary Care Provider [phone] Reason for Visit * Reason Onset Date Comments Diagnostic Imaging Report 03/21/2023 Encounter Details Date Type Department Care Team (Late st Contact Info) Description 03/21/2023 Telephone [facility] Urology - [address] [id number] Juan Solitario MD [address] [place] [address], [address] [place] [address] Diagnostic Imaging Report Social History Tobacco Use Types Packs/Day Years [...] encounter Miscellaneous Notes * Telephone Encounter - Mary Lee - 03/21/2023 1553 EDT LM requesting imagery be pushed and notes faxed from 03/[address] (see 02/05 Telephone Encounter) and Chest CT w/o Contrast (scan from 03/14 not opening). Requested callback to confirm request received. documented in this encounter Plan of Treatment Not on file documented as of this encounter Visit Diagnoses Not on filedocumented in this encounter Care Teams Director Of Career Services Relationship Specialty Start Date End Date Perla Zamorano NP [address] [place] [address] PCP - General 04/26/22 documented as of this encounter
--- OUTSIDE RECORDS SUMMARY | 2024-07-02 18:51 | XMS_ITS | Encounter Summary ---
Author Organization [facility] Address [address] [place] [address] Care Team Providers Care Wafer Production Worker Name Role Phone Perla Zamorano [employer] Primary Care Provider [phone] Encounter Details Date Type Department Care Team (Latest Contact Info) Description 08/09/2022 12:40 EDT - 08/09/2022 23:59 EDT Hospital Encounter [facility] Pre-Surgical Testing [address] [place] [address] Discharge Disposition: Home or Self Care Anesthesia Record Procedure Summary Procedure Name Responsible Anesthesiologist Anesthesia Start Time Anesthesia Stop Time Cystoscopy, right ureteral catheter insertion, right robotic assisted laparoscopic partial nephrectomy (Right: Abdomen) Juan Luke MD 08/16/22 0831 08/16/22 1251 Events Date Time Event Comment 08/16/2022 0831 An Start The patient was re-evaluated immediately before moderate or deep sedation use, before anesthesia induction, or before the anesthesia procedure. 0831 An Start Data 0840 An Induction The patient was reevaluated immediately before moderate or deep sedation use and before anesthesia induction. 0844 An Intubation 0846 Anesthesia Ready 0905 NG/OG Inserted Size 18 Fr. O ral insertion. Stomach contents suctioned. Placed to low continuous wall suction. 1113 An Renal Clamp On 1138 An Renal Clamp Off 1219 Anil 1241 An Extubation 1246 an stop data 1251 An Stop 1251 Handoff to RN I completed my handoff to the receiving nurse during which we: 1. Identified the patient 2. Identified the responsible provider 3. Reviewed the pertinent medical history 4. Discussed the surgical course 5. Reviewed intra-op anesthesia management and issues during anesthesia 6. Set expectations for post-procedure period 7. Allowed opportunity for questions and acknowledgement of understanding. Meds * Agents No agents on file. * Blood No blood administrations on file. Lines, Drains, and Airways Type Details Placement Removal Closed/Suction Drain 08/16/22; Right, Anterior; RLQ 08/16/22 0000 by Tarah Gates RN Wound 08/16/22; 0854; Incision; Abdomen; 5 trocar sites; N; Full thickness 08/16/22 0854 by Kay Blackburn RN Peripheral IV 08/16/22; 0814; Anterior, Proximal, Right; Forearm; 1; None; 08/16/22; 1833 08/16/22 0814 by Cami Silva RN 08/16/22 1833 by Nahum Davis RN Peripheral IV 08/16/22; 0847; 18; Left; Hand; At bedside by Provider; 1; None; 08/17/22; 1350; Painful 08/16/22 0847 by Kalie Fernandez CRNA 08/17/22 1350 by Benjamin Munoz RN Urethral Catheter 08/16/22; 0855; In O R by ; Selected surgical procedures/Epidural; Latex; 16 fr; 10 ml; Yes; 08/17/22; 0812 08/16/22 0855 by Kay Blackburn RN 08/17/22 0812 by Benjamin Munoz, ARVIND NG/OG Tube 08/16/22; 0905; At bedside by Provider; Orogastric; 18 fr; No; 08/16/22; 1219 08/16/22 0905 by Kalie Fernandez CRNA 08/16/22 1219 by Kalie Fernandez CRNA Non-Surgical Airway 08/16/22; 0934 (created via procedure documentation); 08/16/22; 1241 08/16/22 0934 by Kalie Fernandez CRNA 08/16/22 1241 by Kalie Fernandez CRNA documented in this encounter Social History Tobacco Use Types Packs/Day Years [...] :33 EDT documented as of this encounter Last Filed Vital Signs Vital Sign Reading Time Taken Comments Blood Pressure - - Pulse - - Temperature - - Respiratory Rate - - Oxygen Saturation - - Inhaled Oxygen Concentration - - Weight 155.1 kg (342 lb) 08/09/2022 1339 EDT Height 181.6 cm (5' 11.5) 08/09/2022 1339 EDT Body Mass Index 47.03 08/09/2022 1339 EDT documented in this encounter Functional Status Functional Status Response Date of Assess ment Are you deaf or do you have serious difficulty h earing? No 10/28/2018 Are you blind or do you have serious difficulty seeing, even when wearing glasses? No 10/28/2018 Do you have serious difficul ty walking or climbing stairs? (5 years old or older) No 10/28/2018 Do you have difficulty dress ing or bathing? (5 years old or older) No 10/28/2018 Because of a physical, menta l, or emotional condition, does this person have difficulty doing errands alone such as visiting a doctor's office or shopping? Yes 12/01/2019 Cognitive Status Response Date of Assessm ent Because of a physical, menta l, or emotional condition, does this person have serious difficulty concentrating, remembering, or making decisions? Yes 12/01/2019 documented as of this encounter Medications at Time of Discharge Medication Sig Dispensed Refills Start Date End Date acetaminophen (TYLENOL) 325 mg tablet Take 2 Tabs by mouth every 4 hours as needed for Pain. 300 Tab 5 10/30/2018 albuterol (PROVENTIL HFA, VENTOLIN HFA) 90 mcg/Actuation inhaler Inhale 2 Puffs as directed every 4 hours. atorvastatin (LIPITOR) 40 mg tablet Take 1 Tablet by mouth daily. blood glucose test strips One touch verio meter or any brand compatible with meter and covered by Pt's insurance. Tests QID. 100 Each 3 06/16/2018 dulaglutide (TRULICITY) 1.5 mg/0.5 mL subcutaneous pen Inject 0.5 mL into the skin every 7 days. IBUPROFEN ORAL Take by mouth. PT states she takes 1000 mg levothyroxine (SYNTHROID) 112 mcg tabletIndications:Take 2 tabs Take 2 tabs by mouth daily. 180 Tab 2 05/29/2018 metFORMIN (GLUCOPHAGE) 500 mg tablet Take 1,000 mg by mouth 2 times daily. diazePAM (VALIUM) 5 mg tablet 1-2 tabs 1 hour prior to procedure. 2 Tablet 04/16/2022 08/17/2022 oxyCODONE (ROXICODONE) 5 mg immediate release tablet Take 1 Tablet by mouth every 8 hours as needed for up to 3 days for Pain. Daily Max: 15 mg 8 Tablet 08/17/2022 08/20/2022 documented as of this encounter Discharge Disposition Disposition Code Departure Means Destination Home or Self Care documented in this encounter Progress Notes * Luis Roblero, ARVIND - 08/09/2022 1240 EDT COVID 19 Screening Perioperative at time of PAT Please document by exception (only check those that apply). Have you had any of the following symptoms recently? No Yes Chronic ? Cough Shortness of breath or difficulty breathing Fever Chills Fatigue Muscle or body aches Severe Headache New loss of taste or smell Sore throat Congestion or runny nose Rash Nausea, vomiting, or diarrhea (rare in adults. More common in children) Please elaborate if yes: If a chronic symptom is reported use your judgement if an anesthesia review is needed. Have you been in close contact with someone who has been diagnosed with Covid 19 (within past 2 weeks)? No If yes, and is a member of your household, what was the date of their onset of symptoms/positive test? If above date is within 15 days of dos, place for anesthesia review. Have you tested positive in the last 90 days for COVID by PCR and or home test? No If yes: Home Test Date: PCR Date: PCR Test Location: Vaccination Status: _x__ Pt states fully vaccinated, ___ Verified in chart ___ Pt states unvaccinated -Do not instruct patient regarding COVID testing, let [facility] coordinate this -Communicate status on yellow form for DOS REMIND PATIENT/parents of pediatric patients: Patients with a pending COVID-19 test are expected toremain masked and socially distanced at all times while at work or school, and refrain from going inside restaurants, bars, or other public areas where people are likely to be unmasked, or crowded public places. If patient develops any of these symptoms between now and their surgery date instruct them to call us back at [phone] to report symptoms Visitor Policy: Surgical & Procedural -Adult: 2 support people -Pediatrics: 2 support people - Inpatients are now permitted 2 support people at a time. One person is permitted to remain overnight (must be masked). - Pediatric Inpatients may 2 support people at a time. - Inpatient Psychiatry patients may have 2 (vaccinated) support people at a time - Outpatient visits: 2 support people for adults and pedi. (Exception: Cancer Center and [facility] 4 Infusion- 1 support person) As a reminder, all support people are will be required to wear a mask that covers their nose and mouth for the entire time they are in the building. Anyone who cannot or will not wear a mask will be asked to leave. documented in this encounter OR Notes * Preprocedure Instructions - Luis Roblero RN - 08/09/2022 1240 EDT Yesenia Fragoso has been instructed as follows regarding medication administration for the day of the scheduled procedure. Date of Surgery: 08/16/22 Instructions for Taking Medications Day of Surgery Medication Sig Last Dose Hold DOS Take DOS acetaminophen (TYLENOL) 325 mg tablet Take 2 Tabs by mouth every 4 hours as needed for Pain. y albuterol (PROVENTIL HFA, VENTOLIN HFA) 90 mcg/Actuation inhaler Inhale 2 Puffs as directed every 4hours. y atorvastatin (LIPITOR) 40 mg tablet Take 40 mg by mouth daily. y blood glucose test strips One touch verio meter or any brand compatible with meter and covered by Pt's insurance. Tests QID. diazePAM (VALIUM) 5 mg tablet 1-2 tabs 1 hour prior to procedure. prn dulaglutide (TRULICITY) 1.5 mg/0.5 mL subcutaneous pen Inject 1.5 mg into the skin every 7 days. Hold 7 days prior to surgery IBUPROFEN ORAL Take by mouth. PT states she takes 1000 mg Patient not taking: Reported on 04/26/2022 Hold three days prior to surgery unless surgeon specifies otherwise levothyroxine (SYNTHROID) 112 mcg tablet Take 2 tabs by mouth daily. Patient taking differently: 225 mcg. y metFORMIN (GLUCOPHAGE) 500 mg tablet Take 1,000 mg by mouth 2 times daily. x documented in this encounter Miscellaneous Notes * PAT Note - Jessika Glasgow, COMPENSATION EXPERT CNM - 08/09/2022 1325 EDT PAT Review: Surgery 08/[address] Solitario- Hx: DM2, obesity,chronic pain, hypothyroidism, asthma Recent ED visit for dental infection- PAT call attempted however pt did not answer so call has not been completed at this time- From [facility] [employer] Dated 07/23/22: current dental infection. Went to ED 07/22/22 continues on oralABX after IV abx infusion (in ED), facial CT negative for new drainable abscess. Had apt for multiple extractions on 07/24/[address] Abdalla- WBC 14.9 in ED- Of Note, A1C 8.7 on 05/25/22- Will notify office of above information- see encounter- Will update if pt is reached for PAT- LUIS ROBLERO RN Addendum: 6406- pt called back, PAT call completed- Pt states no longer on antibiotics; completed some time last week per pt although she was not able to state what day. In regards to A1c- pt state this has been drawn since May, however could not offer any more details. LUIS ROBLERO RN Pt's A1c was 10.1 three months prior to 8.7 level in May. POCT was orderd for DOS. Pt has poor dentition and had teeth removed and antibiotics prescribed which are now completed per pt. Pt is currently euthyroid as of 07/24/22 H&P. Office aware of increased A1c by [facility] RN. Pt is at this time optimized for his partial nephrectomy. Anesthesia to review chart. Jessika Glasgow APRN, MSN * [facility] Note - Iram Villanueva MD - 08/09/2022 1240 EDT 41 year old female T2DM (last A1c 8.7), obesity, chronic pain, well controlled hypothyroidism, asthma presenting for right partial nephrectomy, cystoscopy, ureteral catheter placement. Patient is moderate risk and presenting for a moderate risk procedure. A1C improving on GLP-1 agonist, though still at increased risk for post operative infection and poor wound healing. Patient has poor dentition with dental infection s/p course of antibiotics and recently had multiple teeth extracted on 07/24. Okay to proceed for day of surgery for evaluation by DOS anesthesiology team. IRAM VILLANUEVA MD documented in this encounter Plan of Treatment Not on file documented as of this encounter Visit Diagnoses Not on filedocumented in this encounter Discontinued Medications Medication Sig Discontinue Reason Start Date End Da te HYDROmorphone (DILAUDID) 2 mg tablet Take by mouth every 4 hours as needed. Therapy completed 08/09/2022 documented as of this encounter Care Teams Wafer Production Worker Relationship Specialty Start Date End Date Perla Zamorano NP [address] [place] [address] PCP - General 04/26/22 documented as of this encounter
--- OUTSIDE RECORDS SUMMARY | 2024-07-02 18:51 | XMS_ITS | Encounter Summary ---
Author Organization [facility] Address [address] [place] [address] Care Team Providers Care Network Strategist Name Role Phone Lona Perla John MOLD FILLER Primary Care Provider [phone] Reason for Visit * Reason Onset Date Comments Patient Outreach 02/05/2023 Encounter Details Date Type Department Care Team (Late st Contact Info) Description 02/05/2023 Telephone [facility] Urology - [address] [id number] Juan Solitario MD [address] [facility], [address] [place] [address] Patient Outreach Social History Tobacco Use Types Packs/Day Years [...] encounter Miscellaneous Notes * Telephone Encounter - Emilee Ivan MA - 02/12/2023 0908 EDT Requested scheduled scans @ [facility] be cancelled and the Chest CT order be changed to external. Faxedorder to [facility] and spoke to their Radiology. First available appointment for a Chest CT is 02/26/23.Informed PT she will need to call [facility] to schedule that (per [facility], we cannot schedule this for her). Also informed PT that 02/26 is after her scheduled follow up with Dr. Solitario and that he was booking into March for a follow up. PT okay with waiting until March. Follow up scheduled. EMILEE IVAN MA 02/12/2023 9:10 * Telephone Encounter - Marla England RN - 02/11/2023 1532 EDT Reviewed that pt does not need to have the CT abdomen and pelvis but she should keep the CT of chest. Pt does not want to come to [facility] even though it is scheduled in a week because she is working. Pt is asking for it to be done at [facility]. Nursing will have scheduling look into it to see if it possible. * Telephone Encounter - Marla England RN - 02/05/2023 1456 EDT Patient went to [facility] for an appendix issue and ended up with a CT scan. In the end pt had appendix removed. Nursing will confirm what type of CT scan was done and discuss with Dr Solitario. Explained pt will probably need a CT scan of Chest either way. Requested [facility] Radiology push recent CT scan onto [facility] and the fax the report. Staff message to nursing to track CT scan and then discuss with Dr. Solitario. * Telephone Encounter - Brad Roberts - 02/05/20[address] due to appendix issue in Nov and is wondering if the imaging from that is enough to no longer need CT's scheduled for 02/18. Please call to discuss. documented in this encounter Plan of Treatment Not on file documented as of this encounter Visit Diagnoses Not on filedocumented in this encounter Care Teams Network Strategist Relationship Specialty Start Date End Date Perla Zamorano NP [address] [facility] [place] [address] PCP - General 04/26/22 documented as of this encounter
--- OUTSIDE RECORDS SUMMARY | 2024-07-02 18:51 | XMS_ITS | Encounter Summary ---
Author Organization [facility] Address [address] [place] [address] Care Team Providers Care Bale Sewer Name Role Phone Lona Perla John BRICK MASON Primary Care Provider [phone] Reason for Visit * Reason Onset Date Comments Abdominal Pain 09/20/2022 Incisional Pain 09/20/2022 Encounter Details Date Type Department Care Team (Late st Contact Info) Description 09/20/2022 Telephone [facility] Urology - [address] [address] Juan Solitario MD [address] [place] [address], [address] [place] [address] Abdominal Pain; Incisional Pain Social History Tobacco Use Types Packs/Day [...] encounter Miscellaneous Notes * Telephone Encounter - Karina Fountain RN - 09/24/[address] Solitario messaged that pt should take it easy for an additional week and watch for signs of bulgingat the incision sites. New out of work letter written for return on October 01. Pt will retrieve from [employer]. * Telephone Encounter - Karina Fountain RN - 09/20/2022 1647 EDT Spoke to pt and about 5 days ago she was getting off the couch and felt a tearing sensation in her abdomen under the incisions. Since then, she has had pain underneath the incision sites that feels like a tightness. There is no bulging, no redness, incisions are well healed. Does have abdominal pain in that area when having bowel movements. Movements are soft, pt has frequent loose stools due to medication she is on. She mentioned being a diabetic and blood sugars have been stable without highs. Will consult Dr Solitario. * Telephone Encounter - Maddie Nunez - 09/20/2022 1444 EDT Patient called, states they are experiencing alot of pain in right of side of stomach where incisions are. Patient had procedure 08/16 and is concerned something is wrong with stomach. Patient would like to discuss and see if an appointment is needed. Please call patient to discuss. documented in this encounter Plan of Treatment Not on file documented as of this encounter Visit Diagnoses Not on filedocumented in this encounter Care Teams Bale Sewer Relationship Specialty Start Date End Date Perla Zamorano, MARIPOSA [address] [place] [address] PCP - General 04/26/22 documented as of this encounter
--- OUTSIDE RECORDS SUMMARY | 2024-07-02 18:51 | XMS_ITS | Encounter Summary ---
Author Organization [facility] Address [address] [place] [address] Care Team Providers Care [employer] St[employer] Name Role Phone LonaPerla John BENCH EXAMINER Primary Care Provider [phone] Reason for Visit * Reason Onset Date Comments Pain 12/12/2022 Encounter Details Date Type Department Care Team (Late st Contact Info) Description 12/12/2022 Telephone [facility] Urology - [address] [id number] Juan Solitario MD [address] [facility], [address] [place] [address] Pain Social History Tobacco Use Types Packs/Day [...] encounter Miscellaneous Notes * Telephone Encounter - Ragini Richards RN - 12/12/2022 1051 EST Patient had Procedure: Cystoscopy, right ureteral catheter insertion, right robotic assisted laparoscopic partial nephrectomy On 08/16/[address] Solitario. Post op appt 08/27/22. I will plan to see her back in 6 months time with a repeat CT scan of the chest, renal mass protocol CT scan and a set of labs. Unable to see PCP or [facility]. Call to [facility]. On hold for >10 minutes without answer. Call to patient. She reports since Saturday she has a sharp pain in her right side where incision area is. Went to ED 2 days ago - they did no imaging. Gave her anti-nausea medication. Went to PCP office the next day - urine and blood taken. Now on day 4. Not really eating. Reports able to drink coffee without vomiting. Advised would try water or diluted sports drinks if not eating. Advised to try eating smaller meals more frequently. Advised if severe pain or unable tokeep down any liquids, would recommend [facility] ED as imaging would be next step. Patient verbalized understanding and denied additional questions. * Telephone Encounter - Lily Arita - 12/12/2022 0993 EST Patient is asking to speak with Dr. Solitario's nurse because she is having some stomach issues, reporting she is having sharp pain in her stomach which is so intense patient throws up. Per patient, she has recently been to the [facility] ED and to her PCP office. Please call and discuss. documented in this encounter Plan of Treatment Not on file documented as of this encounter Visit Diagnoses Not on filedocumented in this encounter Care Teams Horse Race St[employer] Relationship Specialty Start Date End Date Perla Zamorano, [address] [place] [address] PCP - General 04/26/22 documented as of this encounter
--- OUTSIDE RECORDS SUMMARY | 2024-07-02 18:51 | XMS_ITS | Encounter Summary ---
Author Organization [facility] Address [address] [place] [address] Care Team Providers Care Voip Technician Name Role Phone Lona Perla John CHILD LIFE ASSISTANT Primary Care Provider [phone] Reason for Referral * Consult (Routine/Next Available) - New Request Specialty Diagnoses / Procedures Referred By Luiza alvarez Referred To Contact Diagnoses Class 3 severe obesity without serious comorbidity with body mass index (BMI) of 45.0 to 49.9 in adult, unspecified obesity type ([facility]) Renal mass Sonya Carbajal PA-C [address] [facility], [address] [place] [address] [facility], [address] [place] [address] Referral ID Status Reason Start Date Expiration Date Visits Requested Visits Authorized [id number] New Request Specialty Services Required 08/17/2022 1 1 Question Answer I certify that this patient is under my care and that I, or another Medicare allowed practitioner (DO LORETTA, FIFI) working with me, had a [id number] encounter with this patient on this date: 08/17/2022 The discharge summary or progress note will provide further details that support the need for the home health services and the plan of care. Yes Enter the allowed practitioner (DO LORETTA, FIFI) who will provide oversight of this patient's home heatlh care needs and plan of care Juan Solitario MD The patient? s homebound status is related to the following diagnoses, illness or condition (describe): Post surgical restrictions or conditions The patient has a condition due to an illness or injury that restricts the ability to leave home except with: Assistance not necessary, but medically contraindicated as indicated below. Leaving the home is medically contraindicated due to (reason 1): Post surgical restrictions or conditions Leaving home requires a considerable and taxing effort with mobility limited by the following (criteria 1): Post surgical or post procedure restrictions limit ambulation and activity Nursing skilled care requested: Nursing asessment [facility] assessment needed related to this encounter: Post Surgical, Wound, Ostomy or Incontinence Assessment Reason for Visit * Auth/Cert Specialty Diagnoses / Procedures Referred By Luiza t Referred To Contact Diagnoses Renal mass Procedures MI LAP,PARTIAL NEPHRECTOMY MI CYSTOURETHROSCOPY,URETER CATHETER Cystoscopy, right ureteral catheter insertion, right robotic assisted laparoscopic partial nephrectomy CYSTOSCOPY, WITH URETERAL CATHETER INSERTION Referral ID Status Reason Start Date Expiration Date Visits Re quested Visits Authorized [id number] 11/24/2022 1 1 Encounter Details Date Type Department Care Team (Late st Contact Info) Description 08/16/2022 7:15 EDT - 08/17/2022 17:06 EDT Hospital Encounter [facility] [address] [place] [id number] Juan Solitario MD [address] [place] [address], [address] [place] [address] Class 3 severe obesity without serious comorbidity with body mass index (BMI) of 45.0 to 49.9 in adult, unspecified obesity type (HCC-CMS) (HCC) ([facility]) (Primary Dx); Renal mass Discharge Disposition: Home or Self Care Social History Tobacco Use Types Packs/Day Years [...] Body Mass Index 46.77 08/16/2022 0739 EDT documented in this encounter Functional Status [...] No 08/17/2022 documented as of this encounter Discharge Summaries * Emily Yang PA-C - 08/16/2022 0802 EDT Surgery Discharge Summary Primary Care Provider: Perla Zamorano Attending Physician: Juan Solitario MD Admit Date: 08/16/2022 Discharge Date: 08/17/22 Disposition: Home with home health Problems and Procedures Admitting Diagnosis: Right renal mass Principal/Final Diagnosis: Right renal mass Additional Problems Managed in the Hospital Active Hospital Problems Diagnosis Date Noted ??? *Renal mass 04/27/2022 Added automatically from request for surgery [id number] ??? Class 3 severe obesity in adult ([facility]) ([facility]) 08/16/2022 ??? Type 2 diabetes mellitus, without long-term current use of insulin ([facility]) 05/23/2018 Class: Permanent Resolved Hospital Problems No resolved problems to display. Principal Procedure: Cystoscopy, right ureteral catheter insertion, right robotic assisted laparoscopic partial nephrectomy Date: August 16, 2022 Secondary Procedures: none Hospital Course Pt is a 41 y/o female whom was admitted on August 16, 2022 after undergoing a right RALPN. Pt was brought to the OR under general anesthesia and underwent an uncomplicated intraoperative course. Pt was brought to the PACU in stable condition with indwelling baker catheter and RONDA drain and was later transferred to the floor for continuing post-operative care. Postop day #1 patient was afebrile,vital signs stable. Pain well controlled. Good urinary output. Baker catheter was removed and the patient voided spontaneously. Tj-Bliss drain was removed without complications prior to discharge. The patient was discharged to home on 08/17/22 with home health. Patient was afebrile, vital signsstable, tolerating diet, ambulating and pain controlled oral analgesics at the time of discharge. The patient had an uncomplicated hospital course. Patient will follow-up with for pathology review and postop visit. Allergies and Immunizations Allergies Allergen Reactions ??? Dilaudid [Hydromorphone] itching ??? Morphine Hives ??? Penicillin V Potassium ??? Venlafaxine Immunization History Administered Date(s) Administered ? ? Tdap (BOOSTRIX) Vaccine =>7YO IM 09/09/2018 Transition of Care Plans Condition at Discharge Good Assessment at Discharge Vital signs: Patient Vitals for the past 12 hrs: BP Resp Temp SpO2 O2 Device 08/16/22 0739 115/88 16 36.4 ??C (97.5 ??F) 95 % None Results Pending at Discharge Test results still pending from this admission Procedure Component Value Units Date/Time SURGICAL PATHOLOGY [[id number]] Collected: 08/16/22 1156 Lab Status: In process Specimen: Tissue from Kidney Updated: 08/16/22 1211 COVID-19 TEST [facility] [[id number]] Collected: 08/16/22 0742 Lab Status: In process Specimen: Swab from Anterior nares Updated: 08/16/22 0758 COVID-19 Testing [[id number]] Collected: 08/16/22 07 Lab Status: In process Specimen: Swab from Anterior nares Updated: 08/16/22 0757 Relevant Studies at Discharge None Last Lab Results at Discharge BUN: Lab Results Component Value Date BUN 10 08/17/2022 Creatinine: Lab Results Component Value Date CREATININE 0.93 08/17/2022 CBC: Lab Results Component Value Date WBC 17.61 (H) 08/17/2022 RBC 4.66 08/17/2022 HGB 13.4 08/17/2022 HCT 39.0 08/17/2022 MCV 84 08/17/2022 MCH 28.8 08/17/2022 MCHC 34.4 08/17/2022 PLT 333 08/17/2022 DIFFTYPE Automated 08/04/2019 Electrolytes: Lab Results Component Value Date NA 139 08/17/2022 K 3.5 08/17/2022 CL 100 08/17/2022 CO2 25 08/17/2022 Discharge Follow Up Upcoming Appointments Aug 30, 2022 14:00 Post Op Visit with Juan Solitario MD [facility] (--) [address] [place] [id number] Sonya Carbajal PA-C 08/16/2022 12:45 documented in this encounter Discharge Instructions * Discharge Instr - AVS First Page* Sonya Carbajal PA-C - 08/17/2022 12:37 EDT Diet: Eat small meals until good return of bowel function Drink plenty of fluids Avoid constipation Activity: No heavy lifting or strenuous exercise x 4-6 weeks May use stairs No lifting more than a gallon of milk Taking daily walks is advised to minimize blood clots, called a deep vein thrombosis, from forming in your legs. Prolonged sitting or lying in bed should be avoided. Driving: No driving until you completely healed and you have had your postoperative check with your surgeon. No driving while taking narcotic pain medication Skin/Wound Care: Resume normal skin care. Change drain site dressing daily or as needed until drainage stops Bathing: Okay to get wound wet, but pat dry. Do NOT rub the wound area. Shower only Shower with soap and water daily. May shower 24 hours after drain is removed Symptoms to Call Your Doctor About: Please call [facility] urology for any questions Burning with urination, Chest pain, Dizziness, Increased blood in urine, Increased pain, Nausea or vomiting, Pain unrelieved by medication, Redness, swelling or drainage from wound, Shortness of breath, Temperature greater than 101 degrees F and Urinary retention Appointments: Dr Solitario for pathology review and post-op visit. Future Appointments Date Time Provider Department Center 08/30/2022 14:00 Juan Solitario MD EP5 Uro None Follow-up Services Contacted at Discharge: Attending physician documented in this encounter Medications at Time of Discharge [...] 1,000 mg by mouth 2 times daily. oxyCODONE (ROXICODONE) 5 mg immediate release tablet Take 1 Tablet by mouth every 8 hours as needed for up to 3 days for Pain. Daily Max: 15 mg 8 Tablet 08/17/2022 08/20/2022 documented as of this encounter Ordered Prescriptions Prescription Sig Dispensed Refills Start Date End Da te oxyCODONE (ROXICODONE) 5 mg immediate release tablet Take 1 Tablet by mouth every 8 hours as needed for up to 3 days for Pain. Daily Max: 15 mg 8 Tablet 08/17/2022 08/20/2022 documented in this encounter Discharge Disposition Disposition Code Departure Means Destination Home or Self Intermediate documented in this encounter Progress Notes * Diane Diane - 08/17/2022 1249 EDT Yesenia Fragoso 1980 Renal mass Chart review completed and discussed the plan of care with the direct care RN and/or primary care team. SWCM met with patient at bedside. Patient is being discharged home later this afternoon. Patient stated that her family will provide ride home. Patient has been referred to 'Meds to Beds' program. Patient has been referred to [facility] for SN services. Primary Insurance: Medicaid ACO [place] Patient with no apparent Case Management needs at this time. No housing, transportation, insurance,resources concerns identified at this time. Supports in place to achieve a safe post-hospital transition. No identified barriers to accessing necessary care and/or follow-up after discharge. shipyard painter/Property Maintenance Technician will continue to follow patient's progress and remain available if situation changes for coordination of care, psychosocial support and/or discharge planning. DIANE DIANE 08/17/2022 13:05 * Alexy Brannon RT - 08/17/2022 0911 EDT Respiratory Consult/Progress Note Indications for Respiratory therapy: Initial Consult Data Vitals: Heart Rate: 88 BPM, Resp: 16, SpO2: 98 % FIO2/O2 Device: O2 Flow Rate (L/min): 3 l/min, , O2 Device: None, RT Orders: PRN albuterol inhaler Protocol Scoring: Bronchodilator/Inhalation Therapy Frequency Bronchodilator - Clinical Indications: Home regimen Breath Sounds: Any abnormal BS decreased Response: No change / no treatment Pulse: <100 Resp Rate: <18 SOB: At rest Total Score: 3 Comment:: PRN Frequency Based On Total Score: 0-4 = PRN 5-7 = QID 8-10 = Q4H 11-12 = Q2H Airway Clearance Therapy Frequency Airway Clearance - Clinical Indications: No clinical indications Breath Sounds: Clear / diminished Sputum: Small (tsp) / None Consistency: None Cough Effort: Strong/ non-productive Color: Clear / white Total Score: 0 Frequency Based On Total Score: 0-3 = PRN 4-6 = QID and PRN 7-9 = Q4H and PRN 10-11 = Q2H and PRN Hyperinflation Therapy Frequency Hyperinflation - Clinical Indications: No clinical indications Breath Sounds: Clear Surgery: No X-Ray / Atelectasis: No O2 Requirements: O2 at baseline Mobility Status: Mobile / at baseline Total: 0 Frequency Based On Total Score: 0-3 = PRN 4-6 = QID and PRN 7-9 = Q4H and PRN 10-12 = Q2H and PRN Action/Events Respiratory events; Patient currently on room air and tolerating well. Patient stated use of PRN albuterol inhaler, butdenied use of oxygen or CPAP. Able to use albuterol inhaler with RN. 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 RT WILLARD 08/17/22 * Dayday Sanchez MD - 08/17/2022 0635 EDT Urology Progress Note Chief complaint: Right renal mass Procedure: s/p Cystoscopy, right ureteral catheter insertion, right robotic assisted laparoscopic partial nephrectomy Date: 08/16/2022 24 hour events: ??? OR for above procedure ??? No acute event overnight ??? Afebrile, HDS Subjective: Can't poop. Catheter is upsetting her insides. Bothered by catheter. Having some pressure in bowels. Burping. Pain moderately controlled, requiring IV medsl. Nausea from pain. Described pain as pressure. Diet: Tolerating PO intake, clear liquid diet Ambulation: Ambulating independently. Bowel Function: No flatus, no bowel movements. Denies any vomiting, chest pain, shortness of breath. Objective: Blood pressure 123/87, temperature 37.1 ??C (98.8 ??F), temperature source Oral, resp. rate 24, height 180.3 cm (71), weight (!) 152.1 kg (335 lb 5.1 oz), SpO2 98 %. Intake/Output Summary (Last 24 hours) at 08/17/2022 0636 Last data filed at 08/17/2022 0549 Gross per 24 hour Intake 2640 ml Output 2450 ml Net 190 ml Exam: Gen: NAD, non-toxic appearing. Resp: Unlabored on room air Abdominal: Soft, non-distended, appropriately tender. Incisions CDI. RONDA drain with serosang output. Back: Right CVA tenderness. : Baker draining clear yellow urine Extremities: Warm and well perfused. Neuro: Alert and oriented, no gross motor or sensory deficits MSK: Normal ROM CBC Recent Labs 08/17/22 0426 WBC 17.61* RBC 4.66 HGB 13.4 HCT 39.0 MCV 84 MCHC 34.4 PLT 333 BMP Recent Labs 08/17/22 042 CREATININE 0.93 BUN 10 NA 139 K 3.5 CL 100 CO2 25 Assessment: Yesenia Fragoso is a 41 y.o. female with right renal mass now currently s/p robotic partial nephrectomy. Recovering appropriately at this time. Remains afebrile and vital signs stable. Labs reassuring. Pain well controlled. Ambulating well. Course remains uncomplicated. Awaiting return of bowel function. Plan: ??? RONDA Cr ??? Pain: Tylenol, Dilaudid IV, oxycodone ??? Abx: Ancef 24 hours surgical prophylaxis ??? Diet: Clear liquids o Advance with return of bowel function ??? Baker to gravity drainage o Voiding trial when ambulating and clinically appropriately ??? RONDA drain to bulb suction o Remove prior to discharge ??? Activity as tolerated, encourage ambulation ??? Incentive spirometry ??? DVT Ppx: Heparin Dispo Planning ??? KADE: 1-2 days ??? Follow up: Future Appointments Date Time Provider Department Center 08/30/2022 14:00 Juan Solitario MD EP5 Uro None DAYDAY SANCHEZ MD 08/17/2022 6:36 Weekdays from 7AM-5PM page the Urology Service Pager #[phone] with questions. Nights and weekends, please page through PAS. Associated attestation - Juan Solitario MD - 08/17/2022 1029 EDT Attestation statement: I saw and examined the patient with the student/resident. I agree with the findings and plan of care documented in the student's/resident's note. Juan Solitario MD 10:29 documented in this encounter H&P Notes * Sonya Carbajal PA-C - 08/16/2022 0722 EDT The preoperative history and physical which was performed within 30 days of this procedure has been reviewed and the clinically appropriate elements of the physical examination have been repeated. There are no changes to the documented history and physical or if so such changes are documented below Sonya Carbajal PA-C 08/16/2022 7:22 Source Note - Kristan Whittkaer FNP - 07/24/2022 0:00 EDT documented in this encounter Nursing Notes * Cami Silva RN - 08/16/2022 0822 EDT Preop Covid DOS screening questionnaire Please document by exception (only check those that apply). Have you had any of the following symptoms recently? No Yes Chronic ? Cough Shortness of breath or difficulty breathing Fever Chills Fatigue Muscle or body aches Severe Headache New loss of taste or smell Sore throat Congestion or runny nose Rash Nausea, vomiting, or diarrhea (rare in adults. More common in children) Have you had any exposure to a COVID + person since your covid test (in the last 5 days)?No Were you covid tested?Yes When: Today Results: documented in this encounter OR Notes * OR Surgeon - Juan Solitario MD - 08/16/2022 0000 EDT OPERATIVE REPORT SERVICE DATE: 08/16/2022 PREOPERATIVE DIAGNOSIS: Right renal mass. POSTOPERATIVE DIAGNOSIS: Right renal mass. PROCEDURES: Cystoscopy, right ureteral catheter insertion, right robotic- assisted laparoscopic partial nephrectomy with intraoperative ultrasound guidance. SURGEON: Juan Solitario MD (I was present and scrubbed for the entire case.) ASSISTANTS: Nathan Long MD and HERO Petersen (Please note there was no charge for the PA as the resident was qualified to assist.) ANESTHESIA: General. INDICATIONS: Ms Fragoso is a 41-year-old woman who was found to have a 4.1 cm solid, enhancing renal mass in the posterior aspect of the lower pole of the right kidney, who after extensive discussion has elected to undergo right partial nephrectomy and presents for the same. NARRATIVE: The patient was taken to the operating room and placed in lithotomy position after induction under general anesthesia. Her perineum and genitals were prepped and draped in usual sterile fashion. A 22-Syriac cystoscope and sheath were introduced into the bladder via the urethra. The bladder was examined in its entirety, all mucosa was visualized and all appeared normal. The right ureteral orifice was identified and cannulated with a 5-Syriac open-ended ureteral catheter, which was passed up to the level of the renal pelvis without difficulty and was secured to a 16-Syriac Baker catheter for retrograde injection later in the case. The patient was then repositioned in right flank up position with the bed minimally flexed. She waspadded appropriately for the positioning and was secured to the bed. Her right flank and abdomen were prepped and draped in usual sterile fashion. An approximately 8 mm incision was made in the lateral border of the rectus at the level of umbilicus. Through this, Veress needle access was obtained into the peritoneal cavity as confirmed via drop test prior to insufflation of the abdomen to a level20 cm of water. This level of pneumoperitoneum was maintained until all ports had been placed, at which point it was decreased to 15 cm water for the remainder of the case. Additional 8 mm ports werethen placed at the lateral border of the rectus at the costal margin, lateral border of the rectus midway between umbilicus and pubis, as well as in the anterior axillary line midway between xiphoid and umbilicus. A 12 mm midline port was placed midway between xiphoid and umbilicus for purposes of assistance and a 5 mm subxiphoid port was placed for liver retraction, which was performed in a fixed fashion with the FastClamp after taking down a few adhesions to the undersurface of the liver. This allowed excellent exposure of the right renal fossa. At this point, the robotic system was docked.Dissection was begun by mobilizing the ascending colon off the anteromedial aspect of the lower pole of the kidney. The duodenum was kocherized. The ureter and gonadal vein were identified below the lower pole. Plane between them was followed up to the level of the renal hilum where a single renal artery and single renal vein were identified and dissected free from surrounding structures to allowfor placement of laparoscopic bulldog clamps later in the case. At this point, the kidney was mobilized in its capsular plane to allow it to roll anteriorly, exposing the posteriorly located tumor allowing excellent exposure of it. At this point, the laparoscopic ultrasound probe was used to identify and ivan the borders of the tumor for excision. Laparoscopic bulldog clamps were then placed on the renal artery and renal vein. Tumor was excised in its entirety, according to previously marked borders. Renorrhaphy was then performed in a running fashion closing the medullary portion of the kidney and collecting system in a running fashion with 2-0 V-Loc suture. This was tested and found to bewatertight with retrograde injection through the ureteral catheter. Following this, FloSeal, a folded piece of Nu-Knit and Nu-Knit bolster were placed into the defect and were secured in place using 0 Vicryl suture in an interrupted fashion using a sliding clip renorrhaphy technique. This resulted in excellent hemostasis upon removal of laparoscopic bulldog clamps after 25 minutes 13 seconds of warm ischemia time. Hemostasis was deemed excellent. The specimen was placed into an Endo Catch bag. The kidney was replaced into its normal anatomic position and was secured by reapproximating Gerota fascia over the anterior surface. A #10 Tj-Bliss drain was placed in the right upper quadrant emanating from the lowest-most port site and was secured to the skin with 2-0 silk suture. All remaining ports were removed under direct vision. The midline incision was extended just slightly to allowfor removal of the specimen intact, sent for pathologic examination, which confirmed negative margins. This site was then closed at the fascial level with 0 Ethibond suture in an interrupted figure-of- eight fashion. All port sites were then closed with deep dermal layer with 3-0 Vicryl suture and were dressed with Dermabond. DISPOSITION: The patient was awakened from anesthesia and taken to recovery in stable condition postoperatively. ESTIMATED BLOOD LOSS: 50 mL COMPLICATIONS: None. Please note, the patient's ureteral catheter was removed at termination of the procedure, leaving only a Baker catheter and drainage drains. Unless otherwise noted, there were no complications, no blood loss, no cultures obtained, no specimens removed, and no drains retained. Juna Solitario MD / CD Confirmation: [id number] Dictation ID: [id number] cc: documented in this encounter Miscellaneous Notes * Plan of Care - Benjamin Nieto RN - 08/17/2022 1704 EDT Discharge Note D - Patient ordered for discharge today. A - Patient given prescriptions, medication information sheets and After Visit Summary. Medication list, follow up appointments and care instructions reviewed with patient. IVs and ID band removed. Report called to [facility] R - Patient questions reviewed and addressed prior to discharge. Patient reported pain and was medicated. Patient left the unit in a wheelchair in stable condition. No distress noted. 08/17/2022 17:05 BENJAMIN NIETO RN * Plan of Care - Gabbie Merchant RN - 08/17/2022 0443 EDT Problem: Daily Care Plan Goals Goal: Care Plan Documentation Outcome: Ongoing Problem: High Fall Risk: Goal: Patient Will Remain Free from Fall-Related Injury Outcome: Ongoing Pain Note D - This is a 41 year old female, POD# 1 for Cystoscopy, right ureteral catheter insertion, right robotic assisted laparoscopic partial nephrectomy. A/ O x 3, VSS on RA. RONDA drain to RLQ draining small bloody output. The patient reported pain 6-9/10. The reported pain location was abdominal area radiating to shoulder. Baker in place, draining clear pink/orange urine. A - Medications given per MAR, Pain was assessed and treated with medication ordered , distractions, heat, and repositioning as per orders and standards of care. The pain management techniques were effective. Hourly rounds for safety, call lights within reach. R - Denies the need for further intervention. Will continue to assess and treat pain levels as per policy and prn. 08/17/2022 4:43 GABBIE MERCHANT RN * Plan of Care - Nahum Davis RN - 08/16/2022 1833 EDT Admission Note D - This is a(n) 41 y.o. female who is being transfered from PACU This is post-op day for the patient. Patient is status-post RRALP A - Vital signs taken. Patient oriented to unit and room. Call light and bed use reviewed. Call light within reach, bed placed in low position and table at bedside. Room is free of clutter. Rounded hourly for safety. R - Continue to assess and monitor patient. 08/16/2022 18:33 NAHUM DAVIS RN Problem: Daily Care Plan Goals Goal: Care Plan Documentation Outcome: Ongoing * Brief Op Note - Sonya Carbajal PA-C - 08/16/2022 5259 EDT [facility] Urologic Surgery Brief Post-Op Note Date of Surgery: 08/16/2022 Surgeon: Juan Solitario MD Assistants: Sonya Carbajal PA-C, Nathan Long MD Pre-Op Diagnosis: Right renal mass Post-Op Diagnosis: Right renal mass Procedure(s): Cystoscopy, right ureteral catheter insertion, right robotic assisted laparoscopic partial nephrectomy Findings: Clamp time: 25 minutes and 13 seconds. Number vessels clamped: 1 artery and 1 vein. Grossmargin check negative. See OR surgeon dictation for full operative details. Anesthesia Type: General and Local to the incisions I/O ??? Fluids: 1500 mL lactated Ringer's for fluid replacement. ??? Urine Output: See anesthesia record ??? Estimated Blood Loss: 50 cc ??? Antibiotics: Cefazolin Specimens/Cultures: Right renal mass was sent for Routine Pathology and Gross margin check Retained Foreign Items ??? Baker: 16 Fr Straight Tip Catheter with 10cc in the balloon ??? Ureteral Stents: None ??? Drains: 10 mm flat Tj-Bliss drain right lower quadrant Complications: None Wound Classification: Class II/Clean-contaminated Disposition/Condition: PACU in Stable condition. Post-op plan ??? PACU then floor ??? Pain: Scheduled Tylenol ??? Abx: Cefazolin x3 doses ??? AKDE: 1 to 2 days ??? Nicotine patch ??? SSI ??? Follow up Dr. Solitario for pathology review and postop visit Future Appointments Date Time Provider Department Center 08/30/2022 14:00 Juan Solitario MD EP5 Uro None ? Sonya Carbajal PA-C 08/16/2022 7:58 documented in this encounter Plan of Treatment Scheduled Referrals Name Type Priority Associated Diagnoses Orde r Schedule AMB CONS/FOLLOW UP HOME HEALTH SERVICES Outpatient Referral Urgent Class 3 severe obesity without serious comorbidity with body mass index (BMI) of 45.0 to 49.9 in adult, unspecified obesity type (HCC-CMS) (HCC) (HCC-CMS) Renal mass Expected: 08/19/2022 (Approximate), Expires: 08/17/2023 documented as of this encounter Procedures Procedure Name Priority Date/Time Associated Diagnosis Comments CREATININE, FLUID Routine 08/17/2022 13: 57 EDT POCT GLUCOSE, INTERFACED Routine 08/17/2022 11:51 EDT POCT GLUCOSE, INTERFACED Routine 08/17/2022 6:46 EDT COMPLETE BLOOD COUNT Routine 08/17/2022 4:26 EDT BUN Routine 08/17/2022 4:26 EDT GLUCOSE, SERUM Routine 08/17/2022 4:26 EDT CREATININE Routine 08/17/2022 4:26 EDT ELECTROLYTES Routine 08/17/2022 4:26 EDT POCT GLUCOSE, INTERFACED Routine 08/17/2022 0:40 EDT POCT GLUCOSE, INTERFACED Routine 08/16/2022 21:20 EDT POCT GLUCOSE, INTERFACED Routine 08/16/2022 20:39 EDT POCT GLUCOSE, INTERFACED Routine 08/16/2022 19:22 EDT POCT GLUCOSE, INTERFACED Routine 08/16/2022 18:18 EDT POCT GLUCOSE, INTERFACED Routine 08/16/2022 12:55 EDT SURGICAL PATHOLOGY Routine 08/16/2022 11 :56 EDT TYPE AND SCREEN STAT 08/16/2022 8:46 EDT CYSTOSCOPY, WITH URETERAL CATHETER INSERTION 08/16/2022 8:21 EDT Renal mass NEPHRECTOMY, PARTIAL, ROBOT-ASSISTED 08/16/2022 8:21 EDT Renal mass TEST, URINE STAT 08/16/2022 8:10 EDT POCT GLUCOSE, INTERFACED Routine 08/16/2022 7:58 EDT ZZCOVID-19 TEST [facility] PCR STAT 08/16/2022 7:42 EDT COVID-19 TESTING STAT 08/16/2022 7:42 EDT documented in this encounter Results * CREATININE, FLUID (08/17/2022 13:57 EDT) Creatinine, Fluid 1.27 See Note mg/dL 08/17/2022 15:28 EDT [facility] Comment: Peritoneal Fluid Reference range unavailable. Clinical correlation required. This Fluid Creatinine assay was developed and its performance characteristics determined by [facility]. ??It has not been cleared or approved by the US Food and Drug Administration. Fluid PERITONEAL FLUID / Unknown 08/17/2022 13:57 EDT 08/17/2022 14:14 EDT Sonya Carbajal PA-C GEN LAB UNIT CO LLECT ORDERABLES Performing Organization Address [facility] Co de Phone Number [facility] [address] [place] [address] * (ABNORMAL) POCT GLUCOSE, INTERFACED (08/17/2022 11:51 EDT) Glucose, POC 180(H) 70 - 100 mg/dL 08/17/2022 11:53 EDT [facility] HN LAB POC COMMENT (GLUCOSE) Test Performed by Nursing Services 08/17/2022 11:53 EDT [facility] Blood CAPILLARY BLOOD / Unknown 08/17/2022 11:51 EDT 08/17/2022 11:53 EDT Sonya Carbajal PA-C POINT OF CARE T EST ORDERABLES Performing Organization Address [facility] Co de Phone Number [facility] [address] [place] [address] * (ABNORMAL) POCT GLUCOSE, INTERFACED (08/17/2022 6:46 EDT) Glucose, POC 177(H) 70 - 100 mg/dL 08/17/2022 6:48 EDT [facility] HN LAB POC COMMENT (GLUCOSE) Test Performed by Nursing Services 08/17/2022 6:48 EDT [facility] Blood CAPILLARY BLOOD / Unknown 08/17/2022 6:46 EDT 08/17/2022 6:48 EDT Sonya Carbajal PA-C POINT OF CARE T EST ORDERABLES Performing Organization Address [facility] Co de Phone Number [facility] [address] [place] [address] * (ABNORMAL) GLUCOSE, SERUM (08/17/2022 4:26 EDT) Glucose 172(H) 70 - 100 mg/dL 08/17/2022 5:17 EDT [facility] Blood VENOUS BLOOD / Unknown Venipuncture / Unknown 08/17/2022 4:26 EDT 08/17/2022 4:48 EDT Sonya Mendozafl PA-C CHEMISTRY & BLO OD GAS ORDERABLES Performing Organization Address [facility] de Phone Number [facility] [address] [place] [address] * CREATININE (08/17/2022 4:26 EDT) Creatinine 0.93 0.52 - 1.04 mg/dL 08/17/2022 5:17 EDT [facility] eGFR 80 >60 mL/min/1.73 m2 08/17/2022 5:17 EDT [facility] Blood VENOUS BLOOD / Unknown Venipuncture / Unknown 08/17/2022 4:26 EDT 08/17/2022 4:48 EDT Sonya Mendozafl PA-C CHEMISTRY & BLO OD GAS ORDERABLES Performing Organization Address [facility]/ZIP Co de Phone Number [facility] [address] [place] [address] * BUN (08/17/2022 4:26 EDT) BUN 10 10 - 26 mg/dL 08/17/2022 5:17 EDT [facility] Blood VENOUS BLOOD / Unknown Venipuncture / Unknown 08/17/2022 4:26 EDT 08/17/2022 4:48 EDT Sonya Mendozany PA-C CHEMISTRY & BLO OD GAS ORDERABLES Performing Organization Address [facility] de Phone Number [facility] [address] [place] [address] * ELECTROLYTES (08/17/2022 4:26 EDT) Sodium 139 136 - 145 mmol/L 08/17/2022 5:17 EDT [facility] Potassium 3.5 3.5 - 5.0 mmol/L 08/17/2022 5:17 EDT [facility] Chloride 100 96 - 110 mmol/L 08/17/2022 5:17 EDT [facility] CO2 Total 25 22 - 32 mmol/L 08/17/2022 5:17 EDT [facility] Anion Gap 14 5 - 14 08/17/2022 5:17 EDT [facility] Blood VENOUS BLOOD / Unknown Venipuncture / Unknown 08/17/2022 4:26 EDT 08/17/2022 4:48 EDT Sonya Carbajal PA-C CHEMISTRY & BLO OD GAS ORDERABLES Performing Organization Address [facility] Phone Number [facility] [address] [place] [address] * (ABNORMAL) COMPLETE BLOOD COUNT (08/17/2022 4:26 EDT) WBC 17.61(H) 4.00 - 12.40 K/cmm 08/17/2022 4:37 EDT [facility] RBC 4.66 3.86 - 5.04 M/cmm 08/17/2022 4:37 EDT [facility] Hemoglobin 13.4 11.6 - 15.2 gm/dL 08/17/2022 4:37 EDT [facility] HCT 39.0 34.9 - 44.4 % 08/17/2022 4:37 T [facility] MCV 84 81 - 98 fl 08/17/2022 4:37 EDT [facility] MCH 28.8 26.7 - 33.3 pg [facility] MCHC 34.4 32.1 - 35.9 gm/dL 08/17/2022 4:37 T [facility] RDW-CV 13.2 <14.7 % 08/17/2022 4:37 [facility] RDW-SD 40.3 <50.4 fl 08/17/2022 4:37 [facility] PLT 333 141 - 377 K/cmm 08/17/2022 4:37 [facility] MPV 9.1(L) 9.5 - 12.7 fl 08/17/2022 4:37 EDT [facility] Blood VENOUS BLOOD / Unknown Venipuncture / Unknown 08/17/2022 4:26 EDT 08/17/2022 4:30 EDT Sonya Carbajal PA-C HEMATOLOGY & PF 4 ORDERABLES [facility] [address] [place] [address] * (ABNORMAL) POCT GLUCOSE, INTERFACED (08/17/2022 0:40 EDT) Glucose, POC 195(H) 70 - 100 mg/dL 08/17/2022 0:42 EDT [facility] HN LAB POC COMMENT (GLUCOSE) Test Performed by Nursing Services 08/17/2022 0:42 EDT [facility] Blood CAPILLARY BLOOD / Unknown 08/17/2022 0:40 EDT 08/17/2022 0:42 EDT Sonya SCHROEDERC POINT OF CARE T EST ORDERABLES [facility] [address] [place] [address] * (ABNORMAL) POCT GLUCOSE, INTERFACED (08/16/2022 21:20 EDT) Glucose, POC 223(H) 70 - 100 mg/dL 08/16/2022 21:22 EDT [facility] HN LAB POC COMMENT (GLUCOSE) Test Performed by Nursing Services 08/16/2022 21:22 EDT [facility] Blood CAPILLARY BLOOD / Unknown 08/16/2022 21:20 EDT 08/16/2022 21:22 EDT Juan Solitario MD POINT OF CARE YUNIOR T ORDERABLES Performing Organization Address City/[facility]/ZIP Co de Phone Number [facility] [address] [place] [address] * (ABNORMAL) POCT GLUCOSE, INTERFACED (08/16/2022 20:39 EDT) Glucose, POC 266(H) 70 - 100 mg/dL 08/16/2022 20:41 EDT [facility] HN LAB POC COMMENT (GLUCOSE) Test Performed by Nursing Services 08/16/2022 20:41 EDT [facility] Blood CAPILLARY BLOOD / Unknown 08/16/2022 20:39 EDT 08/16/2022 20:41 EDT Juan Solitario MD POINT OF CARE YUNIOR T ORDERABLES [facility] [address] [place] [address] * (ABNORMAL) POCT GLUCOSE, INTERFACED (08/16/2022 19:22 EDT) Glucose, POC 209(H) 70 - 100 mg/dL 08/16/2022 19:23 EDT [facility] HN LAB POC COMMENT (GLUCOSE) Test Performed by Nursing Services 08/16/2022 19:23 EDT [facility] Blood CAPILLARY BLOOD / Unknown 08/16/2022 19:22 EDT 08/16/2022 19:23 EDT Juan Solitario MD POINT OF CARE YUNIOR T ORDERABLES Performing Organization Address City/[facility]/ZIP Co de Phone Number [facility] [address] [place] [address] * (ABNORMAL) POCT GLUCOSE, INTERFACED (08/16/2022 18:18 EDT) Glucose, POC 204(H) 70 - 100 mg/dL 08/16/2022 18:19 EDT [facility] HN LAB POC COMMENT (GLUCOSE) Test Performed by Nursing Services 08/16/2022 18:19 EDT [facility] Blood CAPILLARY BLOOD / Unknown 08/16/2022 18:18 EDT 08/16/2022 18:19 EDT Sonya Carbajal PA-C POINT OF CARE T EST ORDERABLES Performing Organization Address City/[facility]/ZIP Co de Phone Number [facility] [address] [place] [address] * (ABNORMAL) POCT GLUCOSE, INTERFACED (08/16/2022 12:55 EDT) Glucose, POC 239(H) 70 - 100 mg/dL 08/16/2022 12:57 EDT [facility] HN LAB POC COMMENT (GLUCOSE) Test Performed by Nursing Services 08/16/2022 12:57 EDT [facility] Blood CAPILLARY BLOOD / Unknown 08/16/2022 12:55 EDT 08/16/2022 12:57 EDT Juan Luke MD POINT OF CARE YUNIOR T ORDERABLES Performing Organization Address City/[facility]/ZIP Co de Phone Number [facility] [address] [place] [address] * SURGICAL PATHOLOGY (08/16/2022 11:56 EDT) Note to Patient The following pathology results have been interpreted by your pathologist and may be available to you before your health provider has had the opportunity to review them. Please allow time for your provider to receive these results and explore management options, if applicable. 2 14:43 [facility] Final Diagnosis A. KIDNEY, LEFT, MASS, ROBOTIC ASSISTED LAPAROSCOPIC PARTIAL NEPHRECTOMY: - Clear cell renal cell carcinoma, WHO/ISUP grade: II (AJCC: pT1a, pN not assigned; no nodes submitted). See synoptic report. - Surgical resection/parenchym al margin negative for carcinoma. 14:43 [facility] Diagnosis Comment The carcinoma shows areas of cystic dilation and pushes into the perinephric fat and forms a pseudocapsule but does not directly invade the peripheric adipose tissue and is confined to the kidney. The carcinoma is 4 mm from the parenchymal resection margin. Highway Maintenance Crew Worker slides of this case were reviewed at the intradepartmental consultation conference. Immunoperoxidase stains were performed on this case to further characterize the lesion. ANTIBODY(CLONE)(BLO CK):RESULT CA IX (EP161, Cell CheckInPage) (block A4): positive CK7 (RN7, Leica) (block A4): predominantly negative NOTE: One or more of the reagents used in immunoperoxidase testing in this case may not have been cleared or approved by the U.S. Food and Drug Administration (FDA). The FDA has determined that such clearance or approval is not necessary. These tests are used for clinical purposes. They should not be regarded as investigational or for research. These reagents' performance characteristics have been determined by [facility] and/or by the referring laboratory. The positive and negative controls worked appropriately. If immunoperoxidase staining has been performed on alcohol fixed cytology specimens, which has not been fully validated, the assays should be interpreted with caution and correlated with clinical data. This laboratory is certified under the Clinical Laboratory Improvement Amendments of 1988 (CLIA-88) as qualified to perform high complexity clinical laboratory testing. 2 14:43 [facility] Attestation There was significant resident/fellow involvement in the diagnostic evaluation of this case. By the signature below, the attending physician certifies that they have personally conducted a gross and/or microscopic examination of the described specimens and rendered or confirmed the above diagnosis. 2 14:43 [facility] at 1443 Synoptic KIDNEY: Nephrectomy KIDNEY: NEPHRECTOMY, PARTIAL OR RADICAL - All Specimens SPECIMEN ?? Procedure: ?Partial nephrectomy ?? Specimen Laterality: ?Right TUMOR ?? Tumor Site: ?Lower pole ?? Histologic Type: ?Clear cell renal cell carcinoma ?? Histologic Grade (WHO / ISUP Grade): ?G2: Nucleoli conspicuous and eosinophilic at 400x magnification, visible but not prominent at 100x magnification ?? Tumor Size: ?Greatest dimension in Centimeters (cm): 3.8 Centimeters (cm) ?? Tumor Focality: ?Unifocal ?? Tumor Extent: ? Tumor Extension: ?Tumor limited to kidney ?? Accessory Findings: ? Sarcomatoid Features: ?Not identified ? Rhabdoid Features: ?Not identified ? Tumor Necrosis: ?Not identified ? Lymphovascular Invasion: ?Not identified MARGINS ?? Margins: ?Uninvolved by invasive carcinoma LYMPH NODES ?? Regional Lymph Nodes: ?No lymph nodes submitted or found PATHOLOGIC STAGE CLASSIFICATION (pTNM, AJCC 8th Edition) ?? TNM Descriptors: ?Not applicable ?? Primary Tumor (pT): ?pT1a ?? Regional Lymph Nodes (pN): ?pNX ADDITIONAL FINDINGS ?? Pathologic Findings in Nonneoplastic Kidney: ?None identified 2 14:43 [facility] Intraoperative Consultation A. KIDNEY, RIGHT, PARTIAL NEPHRECTOMY, GROSS MARGIN: - 4 mm to nearest parenchymal margin. - Reported to Dr. Solitario at 12:[address] Quiñonez 08/16/22. Dr. Jc Quiñonez I have personally reviewed the specimen and the resident's interpretation and agree with the findings. Dr. Ally Parr 08/16/2022 13:30 2 14:43 [facility] Clinical History Renal mass 08/22/20 2 2 14:43 EDT [facility] Gross Description A. Received fresh labelled with proper patient identification (initials P, E) and right renal mass for gross margin is a partial resection of kidney (39.2 g, 6.4 x 4.3 x 3.8 cm) with minimal attached adipose tissue. The resection margin is 6.4 x 4.3 cm. Sectioning reveals a well circumscribed solid mass (3.8 x 3.1 x 2.0) with a palmer-yellow cut surface. The mass is 0.4 cm from the closest parenchymal resection margin. The mass abuts but does not invade through the renal capsule. The uninvolved renal parenchyma is lerma. The corticomedullary junction is well-defined, and the cortex has an average thickness of 0.7 cm. The uninvolved renal capsule is unremarkable and the cortical surface is lerma and smooth. An intraoperative gross margin evaluation is performed with the interpretation as rendered above. Highway Maintenance Crew Worker sections are submitted as follows: INK CARDOZO Blue-parenchymal margin Black-capsule BLOCK CARDOZO A1- tumor with nearest capsule A2- tumor with nearest parenchymal margin A3-A6- jewelry sales representative tumor with adjacent normal kidney and area closest to hilum Rafael Lujan MD 08/17/2022 13:47 2 14:43 EDT [facility] Resident/Fellow: Rafael Lujan MD 2 14:43 EDT [facility] Performing Lab [facility] 2 14:43 EDT [facility] Scanned Images 2 14:43 T [facility] Tissue ENTIRE KIDNEY / Unknown 08/16/2022 11:56 EDT 08/16/2022 12:11 EDT Juan Solitario MD PATHOLOGY ORDERAB LES [facility] [address] [place] [address] * TYPE AND SCREEN (08/16/2022 8:46 EDT) ABO A 08/16/2022 9:48 EDT [facility] Rh Factor Positive 08/16/2022 9:48 EDT [facility] Antibody Screen Negative 08/16/2022 9:48 EDT [facility] Specimen Expires: 08/19/2022 @ 23:59 08/16/2022 9:48 EDT [facility] Blood VENOUS BLOOD / Unknown Venipuncture / Unknown 08/16/2022 8:46 EDT 08/16/2022 8:59 EDT Juan Luke MD BLOOD BANK TESTS Performing Organization Address [facility] Co de Phone Number [facility] [address] [place] [address] * TEST, URINE (08/16/2022 8:10 EDT) Test, Urine Negative Negative 08/16/2022 8:19 EDT [facility] Comment:False negative resul ts may occur in women who are beyond 5-8 weeks gestation. Diagnosis of should be based on a correlation of test results with typical clinical signs and symptoms. Urine URINE / Unknown Urine Collect / Unknown 08/16/2022 8:10 EDT 08/16/2022 8:12 EDT Kate Parra MD URINALYSIS ORDER ROMEO Performing Organization Address [facility] Co de Phone Number [facility] [address] [place] [address] * (ABNORMAL) POCT GLUCOSE, INTERFACED (08/16/2022 7:58 EDT) Glucose, POC 134(H) 70 - 100 mg/dL 08/16/2022 7:59 EDT [facility] HN LAB POC COMMENT (GLUCOSE) Test Performed by Nursing Services 08/16/2022 7:59 EDT [facility] Blood CAPILLARY BLOOD / Unknown 08/16/2022 7:58 EDT 08/16/2022 7:59 EDT Juan Solitario MD POINT OF CARE YUNIOR T ORDERABLES Performing Organization Address [facility] de Phone Number [facility] [address] [place] [address] * COVID-19 TEST [facility] PCR (08/16/2022 7:42 EDT) Swab BOTH ANTERIOR NARES / Unknown Swab / Unknown 08/16/2022 7:42 EDT 08/16/2022 7:57 EDT Juan Solitario MD MICROBIOLOGY - GE NERAL ORDERABLES Performing Organization Address [facility] de Phone Number [facility] [address] [place] [address] * COVID-19 TESTING (08/16/2022 7:42 EDT) COVID-19 rt-PCR Result Negative Negative 08/16/2022 12:47 EDT [facility] Comment: This test has not been FDA cleared or approved. This test has been authorized by FDA under an EUA for use by authorized laboratories. This test has been authorized only for detection of nucleic acid from 2019-nCoV, not for any other viruses or pathogens. This test is only authorized for the duration of the declaration that circumstances exist justifying the authorization of emergency use of in vitro diagnostic tests for detection and/or diagnosis of 2019-nCoV under section 564(b)(1) of Act, 21 U.S.C ?? 360bbb-3(b) (1), unless the authorization is terminated or revoked sooner. Negative results do not preclude 2019-nCoV infection and should not be used as the sole basis for treatment or other patient management decisions. Negative results must be combined with clinical observations, patient history, and epidemiological information. Performed on the Lucky Oysterher Fusion instrument Performing Lab [place] [facility] 08/16/2022 12:47 EDT [facility] Swab BOTH ANTERIOR NARES / Unknown Swab / Unknown 08/16/2022 7:42 EDT 08/16/2022 7:57 EDT Juan Solitario MD MICROBIOLOGY - GE NERAL ORDERABLES Performing Organization Address [facility] Co de Phone Number [facility] [address] [place] [address] documented in this encounter Visit Diagnoses Diagnosis Renal mass- Primary Unspecified disorder of kidney and ureter Class 3 severe obesity without serious comorbidity with body mass index (BMI) of 45.0 to 49.9 in adult, unspecified obesity type ([facility]) Renal mass Unspecified disorder of kidney and ureter Type 2 diabetes mellitus, without long-term current use of insulin ([facility]) Class 3 severe obesity in adult ([facility]) documented in this encounter Admitting Diagnoses Diagnosis Renal mass Unspecified disorder of kidney and ureter documented in this encounter Administered Medications Inactive Administered Medications - up to 3 most recent administrations Medication Order MAR Action Action Date Dose Rate Site acetaminophen (TYLENOL) suppository 650 mg 650 mg, rectal, EVERY 6 HOURS, First dose on Sat08/16/22 at 1800, Until Discontinued, Routine acetaminophen (TYLENOL) tablet 1,000 mg 1,000 mg, oral, PRN, 1 dose, Starting on Sat08/16/22 at 1500, Until Sat08/16/22 at 1542, Pain, Routine, Recovery (only) Given 08/16/2022 15:42 EDT 1,000 mg acetaminophen (TYLENOL) tablet 1,000 mg 1,000 mg, oral, EVERY 6 HOURS, First dose on Sat08/16/22 at 1800, Until Discontinued, Routine Given 08/17/2022 17:04 EDT 1,000 mg Given 08/17/2022 11:52 EDT 1,000 mg Given 08/17/2022 6:07 EDT 1,000 mg atorvastatin (LIPITOR) tablet 40 mg 40 mg, oral, DAILY, First dose on Sat08/16/22 at 1700, Until Discontinued, Routine Given 08/17/2022 8:05 EDT 40 mg Given 08/16/2022 17:17 EDT 40 mg ceFAZolin in dextrose (iso-os) piggyback 2 g/100 mL 2,000 mg, intravenous, Administer over 30 Minutes, NOW X1, 1 dose, On Sat08/16/22 at 1330, Type of Therapy: Prophylaxis, Suspected Indication (Select all that apply): Surgical prophylaxis, Routine, Recovery (only) Given 08/16/2022 13:42 EDT 2,000 mg ceFAZolin in dextrose (iso-os) piggyback 2 g/100 mL 2,000 mg, intravenous, Administer over 30 Minutes, EVERY 8 HOURS, 2 doses, First dose on Deysi 08/16/22 at 1700, Last dose on Sat08/17/22 at 0100, Type of Therapy: Prophylaxis, Suspected Indication (Select all that apply): Surgical prophylaxis, Routine Given 08/17/2022 0:41 EDT 2,00 0 mg Given 08/16/2022 17:17 EDT 2,000 mg diphenhydrAMINE (BENADRYL) injection 25 mg 25 mg, intravenous, EVERY 6 HOURS PRN, Starting on Sat08/16/22 at 2219, Until Sat08/17/22 at 1906, Itching, Sleep, Anxiety, Routine Given 08/17/2022 6:08 EDT 25 mg Given 08/16/2022 23:11 EDT 25 mg docusate sodium (COLACE) capsule 100 mg 100 mg, oral, 2 TIMES DAILY, First dose on Sat08/16/22 at 2100, Until Discontinued, Routine Given 08/17/2022 8:05 EDT 10 0 mg Given 08/16/2022 20:24 EDT 100 mg fentaNYL citrate (PF) injection 25-50 mcg 25-50 mcg, intravenous, EVERY 5 MIN PRN, Starting on Sat08/16/22 at 1223, Until Sat08/16/22 at 1632, Pain, Routine, Recovery (only) Given 08/16/2022 1 5:43 EDT 50 mcg Given 08/16/2022 14:14 EDT 50 mcg Given 08/16/2022 13:26 EDT 50 mcg heparin injection 5,000 Units 5,000 Units, subcutaneous, PRE-OP ONCE, 1 dose, On Sat08/16/22 at 0800, Routine, Preprocedure Given 08/16/2022 8:17 EDT 5,000 Units heparin injection 5,000 Units 5,000 Units, subcutaneous, EVERY 8 HOURS, First dose on Sat08/16/22 at 1700, Until Discontinued, Routine Given 08/17/2022 8:05 EDT 5,000 Units Given 08/16/2022 23:10 EDT 5,000 Units Given 08/16/2022 17:16 EDT 5,000 Units HYDROmorphone (PF) (DILAUDID) 0.5 mg/0.5 mL syringe 0.25 mg 0.25 mg, intravenous, EVERY 4 HOURS PRN, Starting on Sat08/16/22 at 2218, Until Sat08/17/22 at 0843, Moderate Pain 4-6, Routine Given 08/17/2022 6:08 EDT 0.2 5 mg Given 08/16/2022 23:10 EDT 0.25 mg insulin aspart U-100 (NOVOLOG FLEXPEN) injection subcutaneous, EVERY 6 HOURS, First dose on Sat08/16/22 at 1330, Until Discontinued, Routine, Indications: SUPPLEMENTAL INSULIN Given 08/17/2022 11:54 EDT 4 Units Given 08/17/2022 6:48 EDT 4 Units Given 08/17/2022 0:47 EDT 5 Units lactated ringers (LR) infusion 30 mL/hr, intravenous, CONTINUOUS, Starting on Sat08/16/22 at 0800, Until Sat08/16/22 at 1634, Routine, Preprocedure New Bag 08/16/2022 11:30 EDT Restarted 08/16/2022 8:31 EDT New Bag 08/16/2022 8:16 EDT 30 mL/hr 30 mL/hr lactated ringers (LR) infusion at 75 mL/hr, intravenous, PACU CONTINUOUS, Starting on Sat08/16/22 at 1245, Until Sat08/16/22 at 1632, Routine, Recovery (only) Rate Change 08/16/2022 12:49 EDT 75 mL/hr levothyroxine (SYNTHROID) tablet 225 mcg 225 mcg, oral, DAILY BEFORE BREAKFAST, First dose on Sat08/17/22 at 0700, Until Discontinued, Routine Given 08/17/2022 6:08 EDT 225 mcg nicotine (NICODERM CQ) 21 mg/24 hr patch 1 Patch 1 Patch, transdermal, DAILY, First dose on Sat08/16/22 at 1700, Until Discontinued, Routine Patch Applied 08/17/2022 8:05 EDT 1 Patch Left Shoulder Patch Applied 08/16/2022 17:16 EDT 1 Patch L eft Shoulder ondansetron (PF) (ZOFRAN) injection 4 mg 4 mg, intravenous, PRN, 1 dose, Starting on Sat08/16/22 at 1223, Until Sat08/16/22 at 1408, Nausea, Vomiting, Routine, Recovery (only) Given 08/16/2022 14:08 EDT 4 m g ondansetron (PF) (ZOFRAN) injection 4 mg 4 mg, intravenous, EVERY 4 HOURS PRN, Starting on Sat08/16/22 at 1634, Until Sat08/17/22 at 1906, Nausea, Routine Given 08/17/2022 3:54 EDT 4 mg ondansetron (ZOFRAN-ODT) disintegrating tablet 4 mg 4 mg, oral, EVERY 4 HOURS PRN, Starting on Sat08/16/22 at 1634, Until Sat08/17/22 at 1906, Nausea, Routine oxyCODONE (ROXICODONE) immediate release tablet 5 mg 5 mg, oral, EVERY 4 HOURS PRN, Starting on Sat08/16/22 at 1659, Until Sat08/17/22 at 1906, Pain, Routine Given 08/17/2022 16:55 EDT 5 mg Given 08/17/2022 11:52 EDT 5 mg Given 08/17/2022 8:05 EDT 5 mg oxyCODONE (ROXICODONE) immediate release tablet 5 mg 5 mg, oral, EVERY 4 HOURS PRN, Starting on Sat08/16/22 at 2219, Until Sat08/17/22 at 0725, Pain, Routine Given 08/17/2022 3:51 EDT 5 mg oxyCODONE (ROXICODONE) immediate release tablet 5-10 mg 5-10 mg, oral, EVERY 30 MINUTES PRN, 2 doses, Starting on Sat08/16/22 at 1223, Until Sat08/16/22 at 1410, Pain, Routine, Recovery (only) Given 08/16/2022 14:10 EDT 5 mg Given 08/16/2022 13:22 EDT 5 mg phenazopyridine (PYRIDIUM) tablet 200 mg 200 mg, oral, 3 TIMES DAILY PRN, 9 doses, Starting on Sat08/16/22 at 1303, Until Sat08/17/22 at 1906, Pain, Routine Given 08/16/2022 21:57 EDT 200 mg Given 08/16/2022 13:22 EDT 200 mg sodium chloride 0.9 % (flush) flush 5 mL 5 mL, intravenous, EVERY 8 HOURS, First dose on Sat08/17/22 at 0800, Until Discontinued, Routine Given 08/17/2022 8:06 EDT 5 mL sodium chloride 0.9 % (NS) infusion 125 mL/hr, intravenous, CONTINUOUS, Starting on Deysi 08/16/22 at 1700, Until Sat08/17/22 at 0641, Routine New Bag 08/17/2022 2:43 EDT 125 mL/hr 125 mL/hr Rate Documented 08/16/2022 20:35 EDT 125 mL/hr 125 mL/hr New Bag 08/16/2022 18:25 EDT 125 mL/hr 125 mL/hr documented in this encounter Discontinued Medications Medication Sig Discontinue Reason Start Date End Da te diazePAM (VALIUM) 5 mg tablet 1-2 tabs 1 hour prior to procedure. 04/16/2022 08/17/2022 documented as of this encounter Active and Recently Administered Medications Times are shown in EDT. Scheduled Medication Order 08/15/2022 08/16/2022 08/17/2022 acetaminophen (TYLENOL) suppository 650 mg(Linked Group 1) 650 mg, rectal, EVERY 6 HOURS, First dose on Sat08/16/22 at 1800, Until Discontinued, Routine 1723 (See Alternative - Provider: Nahum Davis RN)2311 (See Alternative - Provider: Gabbie Merchant RN) 0607 (See Alternative - Provider: Gabbie Merchant RN)1152 (See Alternative - Provider: Benjamin Nieto, ARVIND)1704 (See Alternative - Provider: Benjamin Nieto, ARVIND) acetaminophen (TYLENOL) tablet 1,000 mg(Linked Group 1) 1,000 mg, oral, EVERY 6 HOURS, First dose on Sat08/16/22 at 1800, Until Discontinued, Routine 1723 (Not Given - Provider: Nahum Davis RN - Reason: Other)2311 (Given - Provider: Gabbie Merchant RN) 0607 (Given - Provider: Gabbie Merchant, ARVIND)1152 (Given - Provider: Benjamin Nieto, RN)1704 (Given - Provider: Benjamin Nieto, RN) atorvastatin (LIPITOR) tablet 40 mg 40 mg, oral, DAILY, First dose on 08/16/22 at 1700, Until Discontinued, Routine 171 (Given - Provider: Nahum Davis, ARVIND) 08 (Given - Provider: Benjamin Nieto, RN) ceFAZolin (ANCEF) syringe 2 g (COMPLETED) 2 g, intravenous, Administer over 5 Minutes, PRE-OP ONCE, 1 dose, On Deysi 08/16/22 at 0800, Type of Therapy: Prophylaxis, Suspected Indication (Select all that apply): Surgical prophylaxis, Routine, Preprocedure 0846 (Given - Provider: Kalie King CRNA) ceFAZolin in dextrose (iso-os) piggyback 2 g/100 mL (COMPLETED) 2,000 mg, intravenous, Administer over 30 Minutes, NOW X1, 1 dose, On Sat08/16/22 at 1330, Type of Therapy: Prophylaxis, Suspected Indication (Select all that apply): Surgical prophylaxis, Routine, Recovery (only) 1342 (Given - Provider: Tarah Gates RN) ceFAZolin in dextrose (iso-os) piggyback 2 g/100 mL (COMPLETED) 2,000 mg, intravenous, Administer over 30 Minutes, EVERY 8 HOURS, 2 doses, First dose on Sat08/16/22 at 1700, Last dose on Sat08/17/22 at 0100, Type of Therapy: Prophylaxis, Suspected Indication (Select all that apply): Surgical prophylaxis, Routine 1716 (Given - Provider: Nahum Davis RN) 40 (Given - Provider: Gabbie Merchant, ARVIND) docusate sodium (COLACE) capsule 100 mg 100 mg, oral, 2 TIMES DAILY, First dose on Sat08/16/22 at 2100, Until Discontinued, Routine 2023 (Given - Provider: Gabbie Merchant, RN) 08 (Given - Provider: Benjamin Nieto, RN) heparin injection 5,000 Units (COMPLETED) 5,000 Units, subcutaneous, PRE-OP ONCE, 1 dose, On Deysi 08/16/22 at 0800, Routine, Preprocedure 08 (Given - Provider: Cami Silva RN) heparin injection 5,000 Units 5,000 Units, subcutaneous, EVERY 8 HOURS, First dose on Deysi 08/16/22 at 1700, Until Discontinued, Routine 1715 (Given - Provider: Nahum Ryan, RN)2310 (Given - Provider: Gabbie Merchant RN) 0805 (Given - Provider: Benjamin Nieto RN)1600 (Canceled Entry - Provider: Batch Job User Admin - Comment: Automatically canceled at discontinue of medication order) insulin aspart U-100 (NOVOLOG FLEXPEN) injection subcutaneous, EVERY 6 HOURS, First dose on Sat08/16/22 at 1330, Until Discontinued, Routine, Indications: SUPPLEMENTAL INSULIN 1333 (Given - Provider: Tarah Gates RN)1825 (Given - Provider: Nahum Davis RN) 0047 (Given - Provider: Gabbie Merchant RN - Comment: [phone] (Given - Provider: Gabbie Merchant RN - Comment: [phone] (Given - Provider: Benjamin Nieto RN)1800 (Canceled Entry - Provider: Batch Job User Admin - Comment: Automatically canceled at discontinue of medication order) insulin aspart U-100 (NOVOLOG FLEXPEN) injection subcutaneous, AT BEDTIME, First dose on Sat08/16/22 at 2100, Until Discontinued, Routine 2148 (Not Given - Provider: Gabbie Merchant RN - Reason: Order parameters not met) levothyroxine (SYNTHROID) tablet 225 mcg 225 mcg, oral, DAILY BEFORE BREAKFAST, First dose on Sat08/17/22 at 0700, Until Discontinued, Routine 0608 (Given - Provid er: Gabbie Merchant RN) nicotine (NICODERM CQ) 21 mg/24 hr patch 1 Patch 1 Patch, transdermal, DAILY, First dose on Sat08/16/22 at 1700, Until Discontinued, Routine 1716 (Patch Applied - Provider: Nahum Davis RN)2121 (Patch Removed - Provider: Gabbie Merchant RN) 0805 (Patch Applied - Provider: Benjamin Nieto RN)2100 (Due: Patch Removed - Provider: Benjamin Nieto RN) sodium chloride 0.9 % (flush) flush 5 mL(Linked Group 2) 5 mL, intravenous, EVERY 8 HOURS, First dose on Sat08/17/22 at 0800, Until Discontinued, Routine 0806 (Given - Provid er: Benjamin Nieto RN)1600 (Canceled Entry - Provider: Batch Job User Admin - Comment: Automatically canceled at discontinue of medication order) Continuous Medication Order 08/15/2022 08/16/2022 08/17/2022 lactated ringers (LR) infusion (CANCELED) 30 mL/hr, intravenous, CONTINUOUS, Starting on Deysi 08/16/22 at 0800, Until Deysi 08/16/22 at 1634, Routine, Preprocedure 0816 (New Bag - Provider: Cami Silva RN)0830 (Paused - Provider: Kalie King CRNA - Comment: Switch to gravity)0831 (Restarted - Provider: Kalie King CRNA)1130 (New Bag - Provider: Kalie King CRNA)1250 (Anesthesia Volume Adjustment - Provider: Kalie King CRNA) lactated ringers (LR) infusion (CANCELED) at 75 mL/hr, intravenous, PACU CONTINUOUS, Starting on Deysi 08/16/22 at 1245, Until Deysi 08/16/22 at 1632, Routine, Recovery (only) 1249 (Rate Change - Provider: Tarah Gates RN) sodium chloride 0.9 % (NS) infusion (CANCELED) 125 mL/hr, intravenous, CONTINUOUS, Starting on Deysi 08/16/22 at 1700, Until Sat08/17/22 at 0641, Routine 1825 (New Bag - Provider: Nahum Davis RN)2035 (Rate Documented - Provider: Gabbie Merchant RN) 0243 (New Bag - Provider: Gabbie Merchant, ARVIND)0713 (IV Stopped - Provider: Gabbie Merchant RN) PRN Medication Order 08/15/2022 08/16/2022 08/17/2022 acetaminophen (TYLENOL) tablet 1,000 mg (COMPLETED) 1,000 mg, oral, PRN, 1 dose, Starting on Deysi 08/16/22 at 1500, Until Deysi 08/16/22 at 1542, Pain, Routine, Recovery (only) 1542 (Given - Provider: Nelda Sena RN) albuterol inhaler 180 mcg 180 mcg (2 Puff), inhalation, EVERY 4 HOURS PRN, Starting on Deysi 08/16/22 at 1634, Until Sat08/17/22 at 1906, Wheezing, Routine bisacodyL (DULCOLAX) suppository 10 mg 10 mg, rectal, DAILY PRN, Starting on Sat08/16/22 at 1634, Until Sat08/17/22 at 1906, Constipation, Routine bupivacaine (PF) (MARCAINE) 0.5% injection (CANCELED) PRN, Starting on Sat08/16/22 at 1230, Until Sat08/16/22 at 1246, Routine, Intraprocedure 1230 (Given - Provider: Nathan Long MD) cellulose, oxidized 3 x 4 (NU-KNIT) pad (CANCELED) PRN, Starting on Sat08/16/22 at 1152, Until Sat08/16/22 at 1246, Intraprocedure 1152 (Given - Provider: Juan Solitario MD) dextrose 50 % solution 12.5 g 12.5 g (25 mL), intravenous, PRN, Starting on Sat08/16/22 at 1303, Until Sat08/17/22 at 1906, Low Blood Sugar, Routine diphenhydrAMINE (BENADRYL) injection 25 mg 25 mg, intravenous, EVERY 6 HOURS PRN, Starting on Sat08/16/22 at 2219, Until Sat08/17/22 at 1906, Itching, Sleep, Anxiety, Routine 2311 (Given - Provider: Gabbie Merchant RN) 0608 (Given - Provider: Gabbie Merchant RN) fentaNYL citrate (PF) injection 25-50 mcg (CANCELED) 25-50 mcg, intravenous, EVERY 5 MIN PRN, Starting on Sat08/16/22 at 1223, Until Sat08/16/22 at 1632, Pain, Routine, Recovery (only) 1326 (Given - Provider: Tarah Gates, ARVIND)1414 (Given - Provider: Tarah Gates, RN)1543 (Given - Provider: Nelda Sena RN) glucagon injection 1 mg 1 mg, intramuscular, PRN, Starting on Sat08/16/22 at 1303, Until Sat08/17/22 at 1906, Other, Low blood sugar, Routine HYDROmorphone (PF) (DILAUDID) 0.5 mg/0.5 mL syringe 0.25 mg (CANCELED) 0.25 mg, intravenous, EVERY 4 HOURS PRN, Starting on Deysi 08/16/22 at 2218, Until Sat08/17/22 at 0843, Moderate Pain 4-6, Routine 2310 (Given - Provider: Gabbie Merchant RN) 0608 (Given - Provider: Gabbie Merchant RN) melatonin tablet 3 mg 3 mg, oral, AT BEDTIME PRN, Starting on Deysi 08/16/22 at 1634, Until Sat08/17/22 at 1906, Sleep, Routine ondansetron (PF) (ZOFRAN) injection 4 mg (COMPLETED) 4 mg, intravenous, PRN, 1 dose, Starting on Deysi 08/16/22 at 1223, Until Deysi 08/16/22 at 1408, Nausea, Vomiting, Routine, Recovery (only) 1408 (Given - Provider: Tarah Gates RN) ondansetron (PF) (ZOFRAN) injection 4 mg(Linked Group 3) 4 mg, intravenous, EVERY 4 HOURS PRN, Starting on Deysi 08/16/22 at 1634, Until Sat08/17/22 at 1906, Nausea, Routine 0354 (Given - Provid er: Gabbie Merchant RN) ondansetron (ZOFRAN-ODT) disintegrating tablet 4 mg(Linked Group 3) 4 mg, oral, EVERY 4 HOURS PRN, Starting on Deysi 08/16/22 at 1634, Until Sat08/17/22 at 1906, Nausea, Routine 0354 (See Alternativ e - Provider: Gabbie Merchant RN) oxyCODONE (ROXICODONE) immediate release tablet 5 mg 5 mg, oral, EVERY 4 HOURS PRN, Starting on Deysi 08/16/22 at 1659, Until Sat08/17/22 at 1906, Pain, Routine 2024 (Given - Provider: Gabbie Merchant RN) 0805 (Given - Provider: Benjamin Nieto, RN)1152 (Given - Provider: Benjamin Nieto, RN)1655 (Given - Provider: Benjamin Nieto, RN) oxyCODONE (ROXICODONE) immediate release tablet 5 mg (CANCELED) 5 mg, oral, EVERY 4 HOURS PRN, Starting on Deysi 08/16/22 at 2219, Until Sat08/17/22 at 0725, Pain, Routine 0351 (Given - Provid er: Gabbie Merchant RN) oxyCODONE (ROXICODONE) immediate release tablet 5-10 mg (COMPLETED) 5-10 mg, oral, EVERY 30 MINUTES PRN, 2 doses, Starting on Sat08/16/22 at 1223, Until Sat08/16/22 at 1410, Pain, Routine, Recovery (only) 1322 (Given - Provider: Tarah Gates, ARVIND)1410 (Given - Provider: Tarah Gates, ARVIND) phenazopyridine (PYRIDIUM) tablet 200 mg 200 mg, oral, 3 TIMES DAILY PRN, 9 doses, Starting on Sat08/16/22 at 1303, Until Sat08/17/22 at 1906, Pain, Routine 1322 (Given - Provider: Tarah Gates RN)2157 (Given - Provider: Gabbie Merchant RN) sodium chloride 0.9 % irrigation (CANCELED) PRN, Starting on Sat08/16/22 at 1153, Until Sat08/16/22 at 1246, Routine, Intraprocedure 1153 (Given - Provider: Juan Solitario MD) sterile water (bottle) irrigation (CANCELED) PRN, Starting on Sat08/16/22 at 1153, Until Sat08/16/22 at 1246, Intraprocedure 1153 (Given - Provider: Juan Solitario MD) Linked Groups Order Group 1: acetaminophen (TYLENOL) tablet 1,000 mgJump to med 1,000 mg, oral, EVERY 6 HOURS, First dose on Sat08/16/22 at 1800, Until Discontinued, Routine Or acetaminophen (TYLENOL) suppository 650 mgJump to med 650 mg, rectal, EVERY 6 HOURS, First dose on Sat08/16/22 at 1800, Until Discontinued, Routine Group 2: Change IV to Saline Lock (CANCELED) Routine, ONE TIME, On Sat08/17/22 at 0645, For 1 occurrence And sodium chloride 0.9 % (flush) flush 5 mLJump to med 5 mL, intravenous, EVERY 8 HOURS, First dose on Sat08/17/22 at 0800, Until Discontinued, Routine Group 3: ondansetron (PF) (ZOFRAN) injection 4 mgJump to med 4 mg, intravenous, EVERY 4 HOURS PRN, Starting on Deysi 08/16/22 at 1634, Until Sat08/17/22 at 1906, Nausea, Routine Or ondansetron (ZOFRAN-ODT) disintegrating tablet 4 mgJump to med 4 mg, oral, EVERY 4 HOURS PRN, Starting on Deysi 08/16/22 at 1634, Until 08/17/22 at 1906, Nausea, Routine documented in this encounter Orders Medications Ordered That Sheng ht Not Have Been Administered Count Last Ordered Date First Ordered Date acetaminophen (TYLENOL) suppository 650 mg 1 08/16/2022 albuterol inhaler 180 mcg 1 08/16/2022 atropine 0.1 mg/mL syringe 0.5 mg 1 022 bisacodyL (DULCOLAX) suppository 10 mg 1 bupivacaine (PF) (MARCAINE) 0.5% injection 1 08/16/2022 ceFAZolin (ANCEF) syringe 2 g 1 08/16/2022 cellulose, oxidized 3 x 4 (NU-KNIT) pad 1 08/16/2022 dextrose 50 % solution 12.5 g 2 08/16/2022 diphenhydrAMINE (BENADRYL) elixir 12.5 mg 1 08/16/2022 diphenhydrAMINE (BENADRYL) i njection 12.5 mg 1 08/16/2022 glucagon injection 1 mg 2 08/16/2022 insulin aspart U-100 (NOVOLO G FLEXPEN) injection 1 08/16/2022 lidocaine (PF) 10 mg/mL (1 % ) injection 2 mg 1 08/16/2022 melatonin tablet 3 mg 1 08/16/2022 naloxone (NARCAN) injection 0.2 mg 1 2021 ondansetron (ZOFRAN-ODT) dis integrating tablet 4 mg 1 08/16/2022 sodium chloride 0.9 % irrigation 1 08/16/20 sterile water (bottle) irrigation 1 022 Nursing Count Last Ordered Date First Orde red Date BAKER CATHETER - DISCONTINUE 1 08/17/2022 CATHETER CARE 1 08/16/2022 Discharge Count Last Ordered Date First Orde red Date DISCHARGE PATIENT 2 08/17/2022 documented in this encounter Care Teams Voip Technician Relationship Specialty Start Date End Date Perla Zamorano, CHILD LIFE ASSISTANT [address] [place] [address] PCP - General 04/26/22 documented as of this encounter
--- OUTSIDE RECORDS SUMMARY | 2024-07-02 18:51 | XMS_ITS | Encounter Summary ---
Author Organization [facility] Address [address] [place] [address] Care Team Providers Care Tie In Hand Name Role Phone Lona Perla John MAIL CARRIERS SUPERVISOR Primary Care Provider [phone] Reason for Visit * Reason Comments Basal Cell Carcinoma Naso labial fold * Office Procedure (Routine) - Authorized Specialty Diagnoses / Procedures Referred By Luiza alvarez Referred To Contact Dermatology Diagnoses Basal cell carcinoma (BCC) of skin of nose M1 nBCC L Nasolabial fold- tolerates teg Procedures RI ADJ TISS XFER LID,NOS,EAR <10 SQCM RI ADJ TISS XFER ANY AREA,30.1-60 SQCM RI SPLIT GRFT,HEAD,FAC,HAND,FEET <100 SQCM RI SPLIT GRFT,HEAD,FAC,HAND,FEET EA 100 SQCM RI FULL THICK GRFT NOS,EAR,LID <20 SQCM RI FULL THICK GRFT NOS,EAR,LID ADD 20SQ RI FORM SKIN PEDICLE FLAP LID,EAR,NOSE RI COMPOSITE SKIN GRAFT RI MOHS, 1 STAGE, HEAD/NECK/HAND/FEET/GENTI AL MOHS [facility] [address] [place] [address] Angela Carter MD [address] [facility], [place], [address] [place] [address] Referral ID Status Reason Start Date Expiration Date V isits Requested Visits Authorized [id number] Authorized 08/06/2023 1 1 Encounter Details Date Type Department Care Team (Late st Contact Info) Description 08/06/2023 11:00 EDT Office Visit [facility] 5th [address] [phone] Angela Carter MD [address] [facility], [address] [place] [address] Basal cell carcinoma (BCC) of left cheek (Primary Dx) Social History Tobacco Use Types Packs/Day Years [...] No 08/17/2022 documented as of this encounter Patient Instructions * Patient Instructions* Silva Wilburn MA - 08/06/2023 11:00 EDT CARE FOLLOWING YOUR SKIN SURGERY- Sutured Wound Care for the first week ACTIVITY: No strenuous activity for 48 hours (this includes gardening or heavy lifting of any kind). Resume moderate activity in 48 hours. Walking slowly/strolling is an excellent light activity during the first week. Running and weightlifting are not. If your surgery was on your head or neck, elevate your head with pillows when you lie down for the first few nights (consider sleeping in a recliner if you have one), and don't bend over to coal picker objects or tie shoes for a few days if you can avoid it. Do not drink alcoholic beverages for 48 hours. DISCOMFORT: Do not use aspirin or products containing aspirin for 3 days after your surgery, unless approved byyour doctor. To relieve discomfort, you may take acetaminophen (for example, TylenolTM or Extra-Strength TylenolTM) as directed. It actually works very well for this kind of pain. And, if you combine this with ibuprofen (AdviTM) the two together are often very helpful in relieving pain (as helpful as VicodinTM in one study). If your doctor has given you a prescription for Vicodin, Tylenol with codeine, DilaudidTM or PercocetTM, or a different medicine, use as directed. After the first night (when the numbing medicine wears off and it hurts the most), pain should get slowly better, not worse. A severe increase in pain may indicate a problem. Call the office or Dr. Carter directly if after hours if this occurs. Numbness, itching and sensitivity to temperature changes can occur after surgery and may take up to18 months to normalize. BLEEDING, BRUISING, AND SWELLING: It is normal for your wound to ooze a small amount of blood and stain the dressing. Expect bruising and swelling in the area of your surgery to be the most noticeable 48 to 72 hours after surgery. Bruising and swelling usually begin to lessen 4 to 5 days after surgery. It should start to fade in 10-14 days. You may minimize swelling by sleeping with your head elevated on several pillows. If the swelling worsens rapidly or becomes increasingly tender, contact your doctor. If your wound bleeds enough that the blood heavily soaks through to the outside of your bandage, dothe following: Leave the bandage in place. Use tightly rolled up gauze or a cloth to apply direct pressure over the bandage for 20 minutes (nopeeking). If there is substantial bleeding that does not resolve with pressure, please call the office or proceed to the nearest emergency room or call 911 for assistance. Use additional gauze and tape to maintain pressure once the bleeding has stopped. INFECTION: It is normal for your wound to be slightly sore and pink. If the area becomes increasingly tender, red or warm, or if you develop fever and chills, then contact your physician. DIETARY/SMOKING RESTRICTIONS: If your surgery involved your lips or mouth, avoid hot liquids and foods for the first two to threehours after surgery. Eat soft foods for the first 24 hours and be careful when brushing your teeth (use a child's toothbrush to avoid stretching your mouth). Take small bites and try to minimize opening your mouth widely for 3 weeks. Do not smoke for 3 weeks; smoking can be very harmful to wound healing. DAILY WOUND CARE: Always wash your hands with soap and water before touching the bandage. Keep the white bulky pressure bandage in place for at least 48 hours after surgery. If the bandage becomes blood tinged or loose, reinforce it with gauze & tape. (See above for management of bleeding). GENTLY remove the bulky white pressure bandage in 48 hours, being careful not to disturb the underlying stitches. Wash daily with warm clean water and soap (out of a dispenser, avoid bar soap), pat dry and apply athin coat of petrolatum/Vaseline. Cover with a non-stick bandage and reapeat daily until surface stitches have dissolved (usually by 7-10 days). WHEN TO CONTACT YOUR PHYSICAN: Your wound continues to bleed briskly through the bandage after you have reinforced it and applied firm pressure for 20 minutes. Acetaminophen and ibuprofen have not relieved your discomfort. Your wound becomes increasingly sore, tender, red, or warm. Your surgery site rapidly swells. CONTACT INFORMATION: To reach the environmental remediation specialist physician: During office hours: 8:00 am - 5:00 PM Saturday through Saturday Call: [phone] Ask to speak with a surgery nurse AFTER HOURS/WEEKENDS/HOLIDAYS: First call Dr. Angela Carter's cell phone: [phone]; if unable to reach Dr. Carter, Call [phone] for the MOHS surgeon environmental remediation specialist. LONG-TERM WOUND CARE INSTRUCTIONS *Once the bandages are removed, the scar will be red and firm (especially in the lip/chin area). This is normal and will fade in time. It might take 6-12 months. *Massaging the area will help the scar soften and fade quicker. If the scar feels lumpy or firm, begin to massage the area 6 weeks after you remove the steri strips (7 weeks after surgery). To massage apply pressure directly and firmly over the scar with the fingertips and move lengthwise along thescar. Massage the area for a few minutes 10 times a day for 2 weeks. *About 6-8 weeks after surgery it is not uncommon to see tender 'pimple-like' bumps along the scar.This is normal as the scar continues to mature and the stitches underneath the skin begin to dissolve. Do not pick or squeeze-- this will resolve on its own. Should one break open producing a small amount of drainage, apply Vaseline/white petrolatum ointment a few times a day until it is completelyhealed. *Numbness in the surgical area is expected. It might take 12-18 months for it to return to normal. You may experience tchiness, tingling and occasional sharp pains until then. These feelings are normal and will subside once the nerves have completely healed. *For cosmetic coverage a green-tinted concealer can be used to counteract redness during the initial first few months, once surface stitches have dissolved (usually by 7-10 days). Try Clinique Redness Solutions or Eucerin Redness Relief. Keep it protected from the sun for the first few months to imp rove the color of the scar. documented in this encounter Progress Notes * Rylan Mcleod MD - 08/06/2023 1100 EDT Images from the original note were not included. MOHS SURGERY POST-OP SUMMARY Yesenia Fragoso is a 42 y.o. year old female who underwent Mohs surgery today 08/06/2023. The followingis a summary of the operative findings: Lesion 1 Basal cell carcinoma (BCC) Location left cheek Size Preop (cm) 0.7 cm x 0.5 cm Size Postop (cm) 1.4 cm x 0.9 cm Stages 1 Depth of Excision fat Repair intermediate linear repair Ms. Fragoso was discharged from the operative suite in good condition. She was carefully instructed in postoperative wound care both verbally and in writing. The patient will return for follow up as needed. The patient will follow up with Dr. Cooper and will return to see me as needed. Angela Carter MD Dermatology & Mohs Surgery Associate Palliative Care Physician, Mohs Surgery Fellowship diazo technician, Dermatology Division [facility] 08/06/2023 16:28 MOHS EVALUATION NOTE Chief Complaint Patient presents with ??? Basal Cell Carcinoma Naso labial fold Subjective: Yesenia Fragoso is a 42 y.o. year old female who presents for evaluation and treatment recommendationsfor skin cancer. The patient was referred to us by Dr. Cooper. Surgical Risk factors: Pacemaker/ICD: none Anticoagulants: none Total joint replacements/valves: none Allergies: Patient is allergic to dilaudid [hydromorphone], morphine, penicillin v potassium, and venlafaxine. Immunosuppression: none Smoking status: reports that she has been smoking cigarettes. She started smoking about 27 years ago. She has been smoking an average of .75 packs per day. She has never used smokeless tobacco. For full Medical, Surgical, Family, and Social histories as well as Review of Systems, Medications and Allergies please see those sections of this encounter in the electronic chart which I have personally reviewed. Objective: The following data was reviewed: pathology report. Examination of the affected area revealed the following: ?? An approximately 0.7 cm x 0.5 cm pearly and pink, papule located on the left nasolabial crease. Pathology: Lab Results Component Value Date FINALDX 07/04/2023 A. SKIN OF NASOLABIAL FOLD REGION, LEFT, SHAVE BIOPSY: - Basal cell carcinoma, nodular type, extending to the biopsy base and peripheral edge. Assessment & Plan: #) Basal cell carcinoma (BCC) of the left nasolabial fold ?? The diagnosis, etiology, prognosis and treatment options were reviewed. ?? Due to the need for a high cure rate and optimum functional and aesthetic outcome, I feel that Mohs surgery is indicated. The risks of Mohs surgery and potential reconstructive surgery, including:bleeding, infection, scarring, recurrence, injury to functionally or cosmetically important nerve structures and an unsatisfactory cosmetic result were reviewed. The patient was given an opportunity to ask questions, and I believe that all of her questions were answered satisfactorily. Ms. Fragoso understands that following Mohs surgery an operative repair may be required and may involve substantial suturing. We have jointly planned to have me repair the wound at the day of surgery if needed. She understands that it typically takes 4 to 6 months for wounds to heal before a decision can be made about the final cosmetic result and that in some cases a revision may be necessary to optimize the outcome. I explained to Ms. Fragoso that in addition to the risk of recurrence from her skin cancer shehas an increased risk of developing additional new skin cancers elsewhere. For that reason, follow up for ongoing skin surveillance examinations, after surgery, will be imperative. The patient has been scheduled to undergo surgery today. Rylan Mcleod MD MOHS OPERATIVE REPORT Patient Name: Yesenia Fragoso Date of Service: August 06, 2023 Surgeon and Pathologist: Angela Carter MD Mental Hygiene Consultant: Rylan Mcleod MD Case #: [id number] Mohs AUC Score: 8 (APPROPRIATE) Preoperative Diagnosis: Basal cell carcinoma (BCC) Preoperative Procedure: Mohs micrographic surgery Location of Lesion: left nasolabial crease Preoperative Lesion Size: 0.7 cm x 0.5 cm Preoperative Procedure: Mohs microscopically-controlled fresh tissue excision Indications: The patient presents with a skin cancer complicated by the following clinical features: location critical for tissue conservation and poorly defined clinical borders. Because of the histologic and clinical nature of the lesion, as well as its location, the need to achieve the highest cure rate while providing maximum tissue preservation warranted tumor extirpation via microscopically-controlled excision using the Mohs fresh tissue technique. Alternate therapeutic options were discussed prior to surgery. After informed consent was obtained and appropriate instruction was provided,the patient underwent tumor extirpation by the Mohs fresh tissue technique as follows: PROCEDURE - INITIAL STAGE: Patient position: supine Anesthesia: 1% lidocaine with epinephrine 1:100,000 local infiltration Prep: Chlorhexidine No data found. The patient was brought to the operative suite. The lesion was identified and was prepped in a sterile fashion. The area was infiltrated with lidocaine/epinephrine to achieve complete anesthesia and to augment hemostasis. The Mohs procedure was then carried out by Dr. Carter as follows: An initial beveled excision was performed through the epidermis and dermis with a #15 scalpel blade. A hashwas created in the specimen and within the adjacent epidermis for marking purposes. The Mohs specimen was then excised in a sharp manner, and carefully placed in proper orientation on the surgical tray. Hemostasis of the operative wound was obtained with careful spot electrocoagulation. A sterile non-adherent dressing was applied to the operative wound. The Mohs tissue specimen was carefully transferred to the lab where the tissue was divided, and color inked for orientation. These specimens were mapped and then handed personally by the doctor to the accredited pharmacy technician for frozen sectioning. The tissue was embedded so that the deep and surface margins layin the same plane, and sections were made through this plane. Once the slide preparation was complete Dr. Carter performed histologic evaluation and interpretation of all sections. A summary of the findings may be found below. Stage 1 findings: Wound depth fat Sections created 2 Number of sections containing tumor 0 Histologic findings NORMAL SKIN: Sections consist of a portion of normal appearing skin, including epidermis, dermis, and subcutis. The epidermis and dermis are unremarkable. There is no evidence of malignancy at the surgical margins. ADDITIONAL STAGES: None With the patient clear of microscopic tumor, surgery was considered complete. The wound was repaired with an INTERMEDIATE LINEAR closure as detailed in the separate linear repair procedure note below. Postoperative Wound Size: 1.4 cm x 0.9 cm Final Diagnosis: Basal cell carcinoma (BCC) Final Procedure: Mohs micrographic surgery Blood Loss: Minimal Operative Time: 15 minutes Complications: None Note: None The attending physician performed the procedure. INTERMEDIATE REPAIR PATIENT INFORMATION: Yesenia Fragoso SURGEON: Angela Carter MD AIR CONDITIONING ENGINEER: Constanza Lara MD PREOPERATIVE DIAGNOSIS: Defect following microscopically controlled excision of basal cell carcinoma (BCC) PREOPERATIVE PROCEDURE: Intermediate Linear Closure LOCATION of WOUND: left nasolabial fold WOUND DIMENSIONS: 1.4 cm x 0.9 cm INDICATIONS: The patient presents with an operative wound following tumor removal. After careful consideration and discussion of all repair options, it was determined that, given the location and nature of the defect, an intermediate linear layered closure offered the best chance for preservation of normal anatomic and functional relationships. Alternate options were discussed and the patient was encouraged to ask questions, which, I believe, were answered appropriately. Informed consent was obtained in writing. After informed consent was obtained and appropriate instruction was provided, the patient underwent operative repair as follows. PROCEDURE: Patient position: supine Anesthesia: 1% lidocaine with epinephrine 1:100,000 local infiltration Prep: Chlorhexidine The Mohs operative defect was identified, and the area was infiltrated with lidocaine/epinephrine to achieve complete anesthesia and to augment hemostasis. The area was prepped in the usual sterile and was draped with sterile drapes. A linear closure was designed with care to place the operative repair within functional and cosmetic lines to minimize the postoperative distortion of normal tissues. The wound edges were prepared using a # 15 scalpel blade to precisely delineate the operative repair and were then undermined with combined blunt and, as needed, sharp dissection taking great care to avoid functionally important vessels and nerves. Undermining was carried out at the level of the subcutaneous fat Hemostasis of the operative wound was obtained with careful spot electrocoagulation,and ligature as indicated. The wound edges were then approximated using 5.0 Vicryl (polyglactin 910) buried interrupted sutures at the level of the subcutis and dermis. The epidermis was then approximated using 6.0 Prolene (polypropylene). The final wound length was 3.0 cm. The wound edges were cleansed with peroxide and dressed with petrolatum, a non-adherent gauze pad and Hypafix?? tape. Verbaland written wound care instructions were given. The patient tolerated the procedure well and left the operating suite in excellent condition. FINAL DIAGNOSIS: Defect following microscopically controlled excision FINAL PROCEDURE: Intermediate linear closure BLOOD LOSS: minimal OPERATIVE TIME: 30 minutes COMPLICATIONS: None NOTE: None The resident (Dr. Lara) performed the procedure. The attending physician was personally present and immediately available throughout. Rylan Mcleod MD Attestation statement: I performed or was present during the suggs or critical portions of the visit and participated in the management of the patient. I agree with the findings and plan of care documented in the resident's/fellow's note. Angela Carter MD Dermatology & Mohs Surgery Associate Palliative Care Physician, Mohs Surgery Fellowship diazo technician, Dermatology Division [facility] 08/06/2023 16:28 documented in this encounter Miscellaneous Notes * Addendum Note - Bisi Granados - 08/06/2023 1100 EDTAddended by: BISI GRANADOS on: 08/07/2023 07:32 Modules accepted: Level of Service documented in this encounter Plan of Treatment Not on file documented as of this encounter Procedures Procedure Name Priority Date/Time Associated Diagnosis Comments PROCEDURE REPORTS - SCANNED 08/08/2023 7:46 EDT documented in this encounter Results * PROCEDURE REPORTS - SCANNED (08/08/2023 7:46 EDT) 08/08/2023 7:46 EDT Scan 2 Customer Service Dispatcher PROCEDURE/MINOR BOBBI GICAL ORDERABLES documented in this encounter Visit Diagnoses Diagnosis Basal cell carcinoma (BCC) of left cheek- Primary documented in this encounter Care Teams Tie In Hand Relationship Specialty Start Date End Date Perla Zamorano NP [address] [place] [address] PCP - General 04/26/22 documented as of this encounter
--- OUTSIDE RECORDS SUMMARY | 2024-07-02 18:51 | XMS_ITS | Referral Summary ---
Author Organization [facility] Address [address] [place] [address] Care Team Providers Care Thread Inspector Name Role Phone JayanttamelaedisonPerla John PAPER SUPERVISOR Primary Care Provider Encounters Date Type Department Care Team Description 05/30/2024 Lab Requisition [facility] Pathology & Laboratory Medicine - [address] [address] Outr Resulting Lab, Provider from Last 3 Months Allergies Active Allergy Reactions Criticality Noted Date [...] 2021 [place] MEDICA[place] ACO [place]AN [place]8 TC# [id number] Sirois 04/13/2022 12:22 Problem Noted Date Diagnosed Date Class 3 severe obesity in adult ([facility]) 2021 Renal mass 04/27/2022 Overview: Added automatically from request for surgery [id number] MATT II (cervical intraepithelial neoplasia II) 0 [...] of Keflex [ ] [employer] social worker consulted on 11/19 - needs assistance with gas money and needs therapist referral [x] Called [facility] on 11/19 to inform about needs [...] pre- conception medical conditions (Diabetes, hypothyroidism) in [id number] counseling managing those conditions. Type 2 diabetes [...] 11/03 @ [address] Dejesus. 09-09-18 NievesRN C/S moved to October 28 at 9am w/ Dr. Miller @ 39+0. ARVIND Morfin 10.09.18 Last Assessment & Plan: Up to date with routine care although notably missed multiple visits. s/p flu and tdap vaccines. Second trimester CBC drawn at 36 weeks: Hct 39.1. - GBS sent today Hypothyroidism affecting , antepartum 0 04/30/2018 Overview: Taking 224 mcg levothyroxine daily TSH at [facility] was 0.29 on 03/27/2018 05/22/18: TSH 0.13, [...] Maternal morbid obesity, ant epartum, second trimester ([facility]) 11/23/2009 Overview: BMI 47 Has lost [...] Acquired hypothyroidism 05/23/201808/25 Overview: Last TSH at [facility] was 0.29 on 03/27/2018 05/22/18: TSH 0.13, [...] pre- conception medical conditions (Diabetes, hypothyroidism) in [id number] counseling managing those conditions. BMI 45.0-49.9, adult ([facility]) 05/22/2018 09/09/2018 Overview: BMI 47.92 Encounter for routine screen ing for malformation using ultrasonics 11/23/2009 8 Immunizations Name Administration Dates Next Due Tdap Vaccine =>7YO IM 09/09/2018 Social History Tobacco Use Types Packs/Day Years [...] Sexual Orientation Straight 05/03/2022 19 :33 EDT Last Filed Vital Signs Vital Sign Reading [...] Body Mass Index 46.77 08/16/2022 0739 EDT Functional Status Functional Status Response Date of [...] (5 years old or older) No 08/17/2022 Plan of Treatment Not on file Medical Devices Implanted Type Area Correctional Classification Counselor Device Identifier Shelf Expiration Date Model / Serial / Lot Agent Hemostat Sponge Sys Luer Lock Applicator Tip 5ml Floseal [id number] - [id number] Implanted:Qty: 1 on 08/16/2022 by Juan Solitario MD at [facility] Right: Kidney BARBA/DIALYSIS DIV DEREK. 06/07/2024 [id number] / / Procedures Procedure Name Priority Date/Time Associated Diagnosis Comments CCP ANTIBODIES Routine 05/30/2024 10:48 EDT HEPATITIS C AB W REFLEX TO HCV RNA BY PCR Routine 05/23/2023 12:00 EDT HEMOGLOBIN A1C Routine 12/11/2022 10:30 EST from Last 3 Months or Most Recently Relevant to Health Maintenance Results * CCP ANTIBODIES (05/30/2024 10:48 EDT) CCP Antibodies <2.5 <5.0 U/mL 06/01/2024 9:10 EDT [facility] Blood VENOUS BLOOD / Unknown 05/30/2024 10:48 EDT 05/30/2024 21:10 EDT Provider Outr Resulting Lab IMMUNOLOGY A ND SEROLOGY ORDERABLES Performing Organization Address [facility] Co de Phone Number [facility] [address] [place] [address] * HEPATITIS C AB W REFLEX TO HCV RNA BY PCR (05/23/2023 12:00 EDT) Pathologist [facility] Hep C Antibody Negative Negative 05/27/2023 11:12 EDT [facility] Blood VENOUS BLOOD / Unknown 05/23/2023 12:00 EDT 05/24/2023 18:40 EDT Provider Outr Resulting Lab CHEMISTRY & BLOOD GAS ORDERABLES Performing Organization Address [facility] de Phone Number [facility] [address] [place] [address] * (ABNORMAL) HEMOGLOBIN A1C (12/11/2022 10:30 EST) Pathologist [facility] Hemoglobin A1c 6.3(H) <5.7 % 12/11/2022 22:47 EST [facility] Comment: Glycemic Status References: Normal: ??<5.7% Pre-Diabetes: ??5.7% - 6.4% Diagnostic of Diabetes: ??> or = 6.5% (if confirmed) Est Avg Glucose 134 mg/dL 22:47 EST [facility] Comment:The eAG represents t he A1c result expressed as average glucose in mg/dL. Blood VENOUS BLOOD / Unknown 12/11/2022 10:30 EST 12/11/2022 21:26 EST Provider Outr Resulting Lab CHEMISTRY & BLOOD GAS ORDERABLES [facility] [address] [place] [address] from Last 3 Months or Most Recently Relevant to Health Maintenance Advance Directives For more information, please contact: [phone] * Full Code (Latest Code Status on [...] the discussion? Not Discusse d Care Teams Thread Inspector Relationship Specialty Start Date End Date Perla Zamorano, PAPER SUPERVISOR [address] [place] [address] PCP - General 04/26/22
--- OUTSIDE RECORDS SUMMARY | 2024-07-02 18:51 | XMS_ITS | Encounter Summary ---
Author Organization [facility] Address [address] [place] [address] Care Team Providers Care Anchorman Name Role Phone Lona Perla John GUIDE TOUR Primary Care Provider [phone] Encounter Details Date Type Department Care Team (Late st Contact Info) Description 08/27/2022 Orders Only [facility] Radiology - [place] [address] [place], [place] [address] Ana M Hager MD [address] [place] [phone] Social History Tobacco Use Types Packs/Day Years [...] on filedocumented in this encounter Care Teams Anchorman Relationship Specialty Start Date End Date Perla Zamorano GUIDE TOUR [address] [place] [address] PCP - General 04/26/22 documented as of this encounter
--- OUTSIDE RECORDS SUMMARY | 2024-07-02 18:51 | XMS_ITS | Encounter Summary ---
Author Organization [facility] Address [address] [place] [address] Care Team Providers Care Page Designer Name Role Phone LonaPerla John LINE THERAPIST Primary Care Provider [phone] Encounter Details Date Type Department Care Team (Late st Contact Info) Description 05/30/2024 Lab Requisition [facility] Pathology & Laboratory Medicine - [address] [address] Outr Resulting Lab, Provider Social History Tobacco Use Types Packs/Day Years [...] Comments CCP ANTIBODIES Routine 05/30/2024 10:48 EDT documented in this encounter Results * CCP ANTIBODIES (05/30/2024 10:48 EDT) CCP Antibodies <2.5 <5.0 U/mL 06/01/2024 9:10 EDT [facility] Blood VENOUS BLOOD / Unknown 05/30/2024 10:48 EDT 05/30/2024 21:10 EDT Provider Outr Resulting Lab IMMUNOLOGY A ND SEROLOGY ORDERABLES Performing Organization Address City/State/[facility] Co de Phone Number [facility] [address] [place], [place] [phone] documented in this encounter Visit Diagnoses Not on filedocumented in this encounter Care Teams Page Designer Relationship Specialty Start Date End Date Perla Zamorano NP [address] [place] [address] PCP - General 04/26/22 documented as of this encounter
--- OUTSIDE RECORDS SUMMARY | 2024-07-02 18:51 | XMS_ITS | Encounter Summary ---
Author Organization [facility] Address [address] [place] [address] Care Team Providers Care Director Digital Marketing Name Role Phone Perla Zamorano CARE AID Primary Care Provider [phone] Reason for Visit * (Routine/Next Available) - Receiving Office to Obtain Authorization Specialty Diagnoses / Procedures Referred By Luiza alvarez Referred To Contact Procedures CT OUTSIDE IMAGES CHEST Imaging, External Referral ID Status Reason Start Date Expiration Date Visits Requested Visits Authorized [id number] Receiving Office to Obtain Authorization 03/22/2023 1 1 Encounter Details Date Type Department Care Team (Latest Contact Info) Description 03/13/2023 - 03/13/2023 23:59 EDT Hospital Encounter [facility] Secondary Reads [place] Discharge Disposition: Home or Self Care Social [...] No 08/17/2022 documented as of this encounter Medications at [...] 1,000 mg by mouth 2 times daily. documented as of this encounter Discharge Disposition Disposition Code Departure Means Destination Home or Self Care documented in this encounter Plan of Treatment Not on file documented as of this encounter Procedures Procedure Name Priority Date/Time Associated Diagnosis Comments CT OUTSIDE IMAGES CHEST Routine 03/13/2023 9:07 EDT documented in this encounter Results * CT OUTSIDE IMAGES CHEST (03/13/2023 9:07 EDT) Narrative 03/22/2023 9:07 EDT This is a non-reportable exam. External Imaging IMG OTHER IMAGING OR DERABLES documented in this encounter Visit Diagnoses Not on filedocumented in this encounter Care Teams Director Digital Marketing Relationship Specialty Start Date End Date Perla Zamorano, MARIPOSA [address] [place] [address] PCP - General 04/26/22 documented as of this encounter
--- OUTSIDE RECORDS SUMMARY | 2024-07-02 18:51 | XMS_ITS | Encounter Summary ---
Author Organization [facility] Address [address] [place] [address] Care Team Providers Care Recreational Leader Name Role Phone LonaPerla John SILVERWARE ETCHER Primary Care Provider [phone] Reason for Visit * Reason Onset Date Comments Other 03/04/2023 CT questions Encounter Details Date Type Department Care Team (Late st Contact Info) Description 03/04/2023 Telephone [facility] Urology - [address] [phone] Juan Solitario MD [address] [facility], [address] [place] [address] Other (CT questions) Social History Tobacco Use Types Packs/Day Years [...] Telephone Encounter - Ragini Richards RN - 03/04/[address] Solitario: Our radiologists recommend without contrast. ??If their radiologists continue to question, please reschedule here. BI Call back to [facility]. The patient reportedly left. Advised that patient's appt is 5/3, so it needs to be done by 2. * Telephone Encounter - Marla England RN - 03/04/2023 1311 EDT Spoke with Maddie at [facility]. Pt had the CT of Chest this morning and they were asking for more clarification on the reason for the CT of Chest. Nursing will clarify with Dr. Solitario. Per Dr. Solitario- Guidelines recommendations for follow-up of RCC include routine chest imaging. [facility] accepted Dr. Solitario reasoning for the testing but is now asking if it should have been with contrast and if yes to contrast pt would need updated blood work. * Telephone Encounter - Earnestine Montero - 03/04/[address] [facility] lab returned call, fha underwriter unable to reach nurse. * Telephone Encounter - Sheba Cortez RN - 03/04/2023 1208 EDT TC to Zain[facility], no answer, left message to return call * Telephone Encounter - Sofia Zhao - 03/04/2023 1157 EDT [facility] called with a few questions regarding the pt's CT imaging. Please call back to discuss. documented in this encounter Plan of Treatment Not on file documented as of this encounter Visit Diagnoses Not on filedocumented in this encounter Care Teams Recreational Leader Relationship Specialty Start Date End Date Perla Zamorano NP [address] [place] [address] PCP - General 04/26/22 documented as of this encounter
--- OUTSIDE RECORDS SUMMARY | 2024-07-02 18:51 | XMS_ITS | Encounter Summary ---
Author Organization [facility] Address [address] [place] [address] Care Team Providers Care Ice Skating Teacher Name Role Phone Perla Zamorano HEAT TREAT INSPECTOR Primary Care Provider [phone] Reason for Visit * (Routine/Next Available) - Receiving Office to Obtain Authorization Specialty Diagnoses / Procedures Referred By Luiza alvarez Referred To Contact Procedures CT OUTSIDE IMAGES ABDOMEN PELVIS Unknown, Provider, Referral ID Status Reason Start Date Expiration Date Visits Requested Visits Authorized [id number] Receiving Office to Obtain Authorization 02/06/2023 1 1 Encounter Details Date Type Department Care Team (Latest Contact Info) Description 12/12/2022 - 12/12/2022 23:59 EST Hospital Encounter [facility] Secondary Reads [place] Discharge Disposition: Home or [...] Date/Time Associated Diagnosis Comments CT OUTSIDE IMAGES ABDOMEN PELVIS Routine 12/12/2022 8:40 EST documented in this encounter Results * CT OUTSIDE IMAGES ABDOMEN PELVIS (12/12/2022 8:40 EST) Narrative 02/06/2023 8:40 EDT This is a non-reportable exam. Provider Unknown MD [facility] OTHER IMAGING OR DERABLES documented in this encounter Visit Diagnoses Not on filedocumented in this encounter Care Teams Ice Skating Teacher Relationship Specialty Start Date End Date Perla Zamorano, HEAT TREAT INSPECTOR [address] [place] [address] PCP - General 04/26/22 documented as of this encounter
--- OUTSIDE RECORDS SUMMARY | 2024-07-02 18:51 | XMS_ITS | Encounter Summary ---
Author Organization [facility] Address [address] [place] [address] Care Team Providers Care Manager Immunology Name Role Phone LonaPerla John PMO MANAGER Primary Care Provider [phone] Reason for Visit * Reason Onset Date Comments Orders (Non Pre-visit) 03/03/2024 Encounter Details Date Type Department Care Team (Late st Contact Info) Description 03/03/2024 Telephone [facility] Urology - [address] [phone] Juan Solitario MD [address] [place] [address], [address] [place] [address] Orders (Non Pre-visit) Social History Tobacco Use Types Packs/Day Years [...] encounter Miscellaneous Notes * Telephone Encounter - Lenin Tadeo - 03/03/2024 0808 EDT The patient would like her orders for a CT scan sent to [facility] so she can get it done closer to home documented in this encounter Plan of Treatment Not on file documented as of this encounter Visit Diagnoses Not on filedocumented in this encounter Care Teams Manager Immunology Relationship Specialty Start Date End Date Perla Zamorano NP [address] [place] [address] PCP - General 04/26/22 documented as of this encounter
--- OUTSIDE RECORDS SUMMARY | 2024-07-02 18:51 | XMS_ITS | Encounter Summary ---
Author Organization [facility] Address [address] [place] [address] Care Team Providers Care Drill Instructor Name Role Phone LonaPerla John DIRECTOR PAYER Primary Care Provider [phone] Reason for Visit * Reason Onset Date Comments Coordination Of Care 08/09/2022 Encounter Details Date Type Department Care Team (Late st Contact Info) Description 08/09/2022 Telephone [facility] Pre-Surgical Testing [address] [place] [address] Jordan Roblero, ARVIND Coordination Of Care Social History Tobacco Use Types Packs/Day [...] Yes 12/01/2019 documented as of this encounter Miscellaneous Notes * Telephone Encounter - Jordan Roblero, RN - 08/09/2022 1330 EDT Spoke with Ling Simpson at Dr. Solitario's office to notify of comments in recent H&P for officeto review- From H&P Panfilo MONGE Dated 07/23/22: current dental infection. Went to ED 07/22/22 continues on oralABX after IV abx infusion (in ED), facial CT negative for new drainable abscess. Has apt for multiple extractions on 07/24/[address] Abdalla- WBC 14.9 in ED- PAT has not been completed at this time as pt did not answer- documented in this encounter Plan of Treatment Not on file documented as of this encounter Visit Diagnoses Not on filedocumented in this encounter Care Teams Drill Instructor Relationship Specialty Start Date End Date Perla Zamorano NP [address] [place] [address] PCP - General 04/26/22 documented as of this encounter
--- OUTSIDE RECORDS SUMMARY | 2024-07-02 18:51 | XMS_ITS | Encounter Summary ---
Author Organization [facility] Address [address] [place] [address] Care Team Providers Care Marine Superintendent Name Role Phone LonaPerla John IS ANALYST Primary Care Provider Encounter Details Date Type Department Care Team (Late st Contact Info) Description 05/24/2023 Lab Requisition [facility] Pathology & Laboratory Medicine - [address] [address] Outr Resulting Lab, Provider Social History Tobacco [...] Procedure Name Priority Date/Time Associated Diagnosis Comments CHLAMYDIA/N. GONORRHOEAE AMPLIFIED NUCLEIC ACID, THINPREP Routine 05/23/2023 11:00 EDT documented in this encounter Results * CHLAMYDIA/N. GONORRHOEAE AMPLIFIED RNA, THINPREP (05/23/2023 11:00 EDT) Neisseria gonorrhoeae Result Negative Negative 05/27/2023 13:53 EDT [facility] Chlamydia trachomatis Result Negative Negative 05/27/2023 13:53 EDT [facility] Papanicolaou smear specimen (specimen) CERVIX UTERI STRUCTURE / Unknown 05/23/2023 11:00 EDT 05/27/2023 8:27 EDT Provider Outr Resulting Lab MICROBIOLOGY - GENERAL ORDERABLES Performing Organization Address City/State/[facility] Co de Phone Number [facility] [address] [place] [address] documented in this encounter Visit Diagnoses Not on filedocumented in this encounter Care Teams Marine Superintendent Relationship Specialty Start Date End Date Perla Zamorano NP [address] [place] [address] PCP - General 04/26/22 documented as of this encounter
--- OUTSIDE RECORDS SUMMARY | 2024-07-02 18:51 | XMS_ITS | Encounter Summary ---
Author Organization [facility] Address [address] [place] [address] Care Team Providers Care Chief Warden Name Role Phone LonaPerla John GARNETT ROOM WORKER Primary Care Provider [phone] Reason for Visit * Reason Comments Follow-up [address] and labs review Encounter Details Date Type Department Care Team (Late st Contact Info) Description 03/27/2023 9:00 EDT Telemedicine [facility] Urology - [address] [phone] Juan Solitario MD [address] [place] [address], [address] [place] [address] Renal mass (Primary Dx) Social History Tobacco Use Types Packs/Day Years Used Date Smoking Tobacco: Every Day Cigarettes 0.7 28.6 Started: 1995 Smokeless Tobacco: Never Tobacco Cessation:Ready to Q uit: Yes; Counseling Given: Yes Alcohol Use Standard Drinks/Week Comments No 0 [...] No 08/17/2022 documented as of this encounter Progress Notes * Juan Solitario MD - 03/27/2023 0900 EDT Ms. Fragoso is a 42 y.o. 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 ?? She presents today in follow-up stating that she is feeling well. Had acute appendicitis and subsequent appendectomy in November. Had some injuries at work that occurred in December, having significant arthritis and lower back pain. She is still tolerating regular diet and having normal bowel movements, some recent loose stools after changing her diabetes regimen. Repeat imaging demonstrated no recurrence of renal masses, no evidence of lung metastasis. She had her lab work drawn yesterday, we will follow up her labs once they result. Plan to see back in [address] A/P, CT Chest, CBC and BMP.?? TELEMEDICINE VIDEO VISIT Today's visit was provided through telemedicine video conferencing with Zoom : The location of the patient : work The location of the provider: office The following staff and their role did participate in today's encounter visit: Juan Solitario MD The concept of ???Telemedicine?? has been described to the patient.? Patient has been informed of the anticipated benefits and possible risks.? Patient understands the information provided regardingtelemedicine, has had the opportunity to ask questions about this information, and all questions have been answered to patient???s satisfaction. Patient consents for the use of telemedicine in his/her medical care and authorizes the transmission of any relevant medical information to providers and their staff involved in patient???s medical or mental health care. documented in this encounter Plan of Treatment Not on file documented as of this encounter Visit Diagnoses Diagnosis Renal mass- Primary Unspecified disorder of kidney and ureter documented in this encounter Care Teams Chief Warden Relationship Specialty Start Date End Date Perla Zamorano NP [address] [place] [address] PCP - General 04/26/22 documented as of this encounter
--- OUTSIDE RECORDS SUMMARY | 2024-07-02 18:51 | XMS_ITS | Encounter Summary ---
Author Organization [facility] Address [address] [place] [address] Care Team Providers Care Polygraph Examiner Name Role Phone Perla Zamorano COMPANY DANCER Primary Care Provider [phone] Reason for Visit * Reason Comments New Patient Visit Spot on L nasal crea se * Consult (3 - 10 Business Days) - Authorization Not Required Specialty Diagnoses / Procedures Referred By Luiza alvarez Referred To Contact Dermatology Diagnoses Neoplasm of uncertain behavior of skin Perla Zamorano, [employer] D[employer] [address] [place] [address] [facility] Dermatology [address] [place] [id number] Referral ID Status Reason Start Date Expiration Date Visits Requested Visits Authorized [id number] Authorization Not Required 1 1 Encounter Details Date Type Department Care Team (Late st Contact Info) Description 07/04/2023 9:30 EDT Office Visit [facility] Dermatology 3rd Floor [address] [id number] Nahum Newberry MD [address] [facility], [facility] [address] [place] [phone] Neoplasm of uncertain behavior of skin (Primary Dx) Social History Tobacco Use Types [...] this encounter Patient Instructions * Patient Instructions* Leena Wilde MA - 07/04/2023 9:30 EDT WOUND CARE INSTRUCTIONS FOR SKIN BIOPSIES DRESSING/BANDAID: This should remain in place for 24 hours. You may shower or bathe after 24 hours.After the shower, remove the bandage, pat dry, and replace it with Vaseline/petroleum jelly and non-stick bandaging. DISCOMFORT: Tylenol (acetaminophen) or ibuprofen may be used for discomfort. Generally the pain should be mild. Take according to lithographic photographer apprentice directions. BLEEDING: You may notice some blood on the edges of the dressing the first day and this is NORMAL. If the bleeding soaks through the dressing, hold solid pressure on the area with a wet wash cloth for 15 minutes. If the bleeding stops, put a new dressing on the site. If not, call our office at . ACTIVITY: You may resume normal activity in 1 day unless instructed otherwise. WOUND CARE: Wash hands with soap and water before changing the dressing. Change the dressing daily and when it becomes wet/dirty. Clean the wound daily with mild soap and water. You may gently loosen any crusts with a cotton swab. The wound may be slightly tender and may bleed a small amount. A small amount of discharge is normal. Apply a thin layer of sterile petroleum jelly/vaseline over the wound. Cover the wound with a non-stick dressing or bandage. It is important to keep the wound covered for 1 week. We do not recommend antibiotic ointment as many people will develop an allergic reaction. SUTURE REMOVAL: Please return to our clinic at your scheduled appointment for suture removal. You may also have your local doctors remove them at the scheduled time. CONTACT THE OFFICE IF YOU EXPERIENCE: increased redness warmth to touch increased pain drainage with a foul odor rapid swelling of the wound fever or chills It was a pleasure taking care of you today. Please call our office or if you have any concerns or questions. documented in this encounter Progress Notes * Nahum Newberry MD - 07/04/2023 0930 EDT Dermatology Outpatient Clinic Note 07/04/2023 History of Present Illness: Patient is a 42 y.o. female who presents with a chief complaint of: New Patient Visit (Spot on L nasal crease ) Noted x months. No hx skin ca. No fh melanaom Last seen New Patient has a current medication list which includes the following prescription(s): acetaminophen, albuterol, atorvastatin, blood glucose, trulicity, ibuprofen, levothyroxine, and metformin. See documentation in [facility] for medical, surgical, social and family history, which were reviewed atthis visit. Present medications, allergies, review of systems are also documented and were all reviewed at this visit. EXAM: Examined face neck trunk and both arms L NL fold 8mm shiny papule IMPRESSION & PLAN: # L NL fold r/o bcc, shave bx. rtc per bx/prn SHAVE BIOPSY PROCEDURE NOTE Recommended shave biopsy of the L nasolabial fold The correct patient and date of , surgical site and procedure were verified prior to it being performed. NAHUM NEWBERRY MD 12:46 07/05/2023 PATIENT INFORMATION: Yesenia Fragoso [id number] DATE OF PROCEDURE: 07/05/2023 SURGEON: NAHUM NEWBERRY MD The indication, risks, benefits and alternatives to this procedure were discussed in detail with the patient and all questions were answered. Informed consent was obtained in writing. 1% lidocaine with epinephrine 1:100,000 local infiltration local anesthetic was administered after prepping the area with an alcohol wipe. The specimen was removed by tangential shave using a Dermablade. Hemostasis was achieved with pressure and/or aluminum chloride. A sterile dressing was applied over petrolatum ointment. The specimen was submitted to pathology for histological evaluation. There were no complications. Verbal and written wound care instructions were provided. We will inform the patient of the biopsy results with in the next two weeks. NAHUM NEWBERRY MD 07/05/2023 12:46 Nahum Newberry MD 07/04/2023 9:57 documented in this encounter Miscellaneous Notes * Result Encounter Note - Nahum Newberry MD - 07/04/2023 0930 EDT I called her. Please arrange Mohs for BCC L NL fold region. AUC 8. No pacemakers, art valves, or blood thinners.j p documented in this encounter Plan of Treatment Not on file documented as of this encounter Procedures Procedure Name Priority Date/Time Associated Diagnosis Comments SURGICAL PATHOLOGY Routine 07/04/2023 10 :07 EDT Neoplasm of uncertain behavior of skin documented in this encounter Results * SURGICAL PATHOLOGY (07/04/2023 10:07 EDT) Note to Patient The following pathology results have been interpreted by your pathologist and may be available to you before your health provider has had the opportunity to review them. Please allow time for your provider to receive these results and explore management options, if applicable. 07/05/2023 14:20 [facility] Final Diagnosis A. SKIN OF NASOLABIAL FOLD REGION, LEFT, SHAVE BIOPSY: - Basal cell carcinoma, nodular type, extending to the biopsy base and peripheral edge. 07/05/2023 14:20 [facility] Attestation By the signature below, the attending physician certifies that they have 1) personally conducted a gross and/or microscopic examination of the described specimen(s), and/or personally interpreted the results of laboratory testing of the described specimen(s), and 2) personally rendered or confirmed the above diagnosis. 07/05/2023 14:20 [facility] at 1420 Clinical History 8 mm shiny papule; R/O BCC vs nevus vs follicular tumor; clinical diagnosis code: D48.5 07/05/2023 14:20 [facility] Gross Description A. Received in formalin labelled with proper patient identification (initials P, E) and L NL fold region is a 0.5 x 0.4 x 0.1 cm ovoid shave of granular lerma-white skin. The margin is inked. The specimen is submitted intact in A1. HERO MARTINS(ASCP) 07/04/2023 13:44 07/05/2023 14:20 [facility] Performing Lab [facility] 07/05/2023 14:20 [facility] Scanned Images 07/05/2023 14:20 [facility] Tissue TISSUE SPECIMEN FROM SKIN / Unknown 07/04/2023 10:07 EDT 07/04/2023 12:33 EDT Nahum Newberry MD PATHOLOGY ORDERABLES [facility] [address] [place] [address] documented in this encounter Visit Diagnoses Diagnosis Neoplasm of uncertain behavior of skin- Primary documented in this encounter Care Teams Polygraph Examiner Relationship Specialty Start Date End Date Perla Zamorano, [employer] D[employer] [address] [place] [address] PCP - General 04/26/22 documented as of this encounter
--- OUTSIDE RECORDS SUMMARY | 2024-07-02 18:51 | XMS_ITS | Encounter Summary ---
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 Name Role Phone Perla Zamorano John ELECTRICAL TECH/PROJECT MANAGER Primary Care Provider [phone] Reason for Visit * Reason Comments Discuss Test Results Encounter Details Date Type Department Care Team (Late st Contact Info) Description 08/27/2022 10:00 EDT Telemedicine [facility] Urology - [address] [id number] Juan Solitario MD [address] [facility], [address] [place] [phone] Malignant neoplasm of left kidney, except renal pelvis (HCC-CMS) (Primary Dx) Social History Tobacco Use Types [...] Progress Notes * Juan Solitario MD - 08/27/2022 1000 EDT Ms. Fragoso is a 41-year-old woman who underwent a left-sided robotic assisted laparoscopic partial nephrectomy on 08/16/2022 for what turned out to be a pathologic stage T1 a clear-cell renal cell carcinoma grade 2 out of 4 with negative margins measuring 3.8 cm in largest dimension. She presents today in follow-up stating that she is feeling quite well. She is tolerating regular diet and having normal bowel movements. She states her incisions are all clean, dry and intact and healing quite nicely. She has noticed some slight bruising at her heparin injection sites. She knows that she may return to work with light duty until full 4 weeks postop at this time at which point she can return to full duty thereafter. I will plan to see her back in 6 months time with a repeat CT scan of the chest, renal mass protocol CT scan and a set of labs. The patient consented to a telephone encounter. I spent a total of approximately 5 minutes with Yesenia Fragoso today and 5 minutes of that time was spent in counseling and coordination of care as described in the progress note. documented in this encounter Plan of Treatment Not on file documented as of this encounter Visit Diagnoses Diagnosis Malignant neoplasm of left kidney, except renal pelvis (HCC-CMS)- Primary Malignant neoplasm of kidney, except pelvis documented in this encounter Care Teams Yardage Tufting Machine Operator Relationship Specialty Start Date End Date Perla Zamorano, [address] [place] [address] PCP - General 04/26/22 documented as of this encounter
--- OUTSIDE RECORDS SUMMARY | 2024-07-02 18:51 | XMS_ITS | Encounter Summary ---
Author Organization [facility] Address [address] [place] [address] Care Team Providers Care Scow Derrick Operator Name Role Phone Lona Perla John CONTRACT ASSOCIATE Primary Care Provider [phone] Reason for Visit * Auth/Cert Specialty Diagnoses / Procedures Referred By [facility] Referred To Contact Diagnoses Renal mass Procedures RI LAP,PARTIAL NEPHRECTOMY RI CYSTOURETHROSCOPY,URETER CATHETER Cystoscopy, right ureteral catheter insertion, right robotic assisted laparoscopic partial nephrectomy CYSTOSCOPY, WITH URETERAL CATHETER INSERTION Referral ID Status Reason Start Date Expiration Date Visits Re quested Visits Authorized [id number] 11/24/2022 1 1 Encounter Details Date Type Department Care Team (Late st Contact Info) Description 08/16/2022 8:25 EDT - 08/16/2022 12:55 EDT Surgery [facility] OR [address] [place] [address] [phone] Juan Solitario MD [address] [place] [address], [address] [place] [phone] Cystoscopy, right ureteral catheter insertion, right robotic assisted laparoscopic partial nephrectomy [99330 (CPT??)] Surgery Details Date/Time Status Location OR Service Patient Class Case Class Case Type Trauma Case? 08/16/22 0825 Posted [facility] OR [facility] Urology Extende d Stay H - Elective Panel 1 Procedure LRB Anes Op Region Wound Class Comments Cystoscopy, right ureteral catheter insertion, right robotic assisted laparoscopic partial nephrectomy Right Patient Choice Abdomen Class II/ Clean Contaminated CYSTOSCOPY, WITH URETERAL CATHETER INSERTION Right Patient Choice Ureter Class II/ Clean Contaminated Surgeon Surgeon Role Service Panel Juan Solitario MD Primary Urology 1 Sonya Carbajal PA-C Assisting Urology 1 Nathan Long MD Resident - Assisting Urology 1 documented in this encounter Social History Tobacco [...] Sign Reading Time Taken Comments Blood Pressure 154/87 08/16/2022 1249 EDT Pulse - - Temperature 36.5 ??C (97.7 ??F) 08/16/2022 1249 EDT Respiratory Rate 16 08/16/2022 0739 EDT Oxygen Saturation 96% 08/16/2022 1249 EDT Inhaled Oxygen Concentration - - Weight [...] 04/27/2022 Added automatically from request for surgery [id number] ??? Class 3 severe obesity in adult ([facility]) ([facility]) 08/16/2022 ??? Type 2 diabetes mellitus, without long-term current use of insulin ([facility]) 05/23/2018 Class: Permanent Resolved Hospital Problems No [...] Procedure Component Value Units Date/Time SURGICAL PATHOLOGY [[id number]] Collected: 08/16/22 1156 Lab Status: In process Specimen: Tissue from Kidney Updated: 08/16/22 1211 COVID-19 TEST [facility] [[id number]] Collected: 08/16/22741 Lab Status: In process Specimen: Swab from Anterior nares Updated: 08/16/22 0758 COVID-19 Testing [[id number]] Collected: 08/16/22741 Lab Status: In process Specimen: Swab from [...] Post Op Visit with Juan Solitario MD [facility] Urology [facility] (--) [address] [place] [address] [id number] Sonya Carbajal PA-C 08/16/2022 12:45 documented in [...] to Call Your Doctor About: Please call [facility] urology for any questions Burning [...] Code Departure Means Destination Home or Self Fdc documented in this encounter Progress Notes * [...] Beds' program. Patient has been referred to [facility] for SN services. Primary Insurance: Medicaid ACO [place] Patient with no apparent Case Management needs at this time. No housing, transportation, insurance,resources concerns identified at this time. Supports in place to achieve a safe post-hospital transition. No identified barriers to accessing necessary care and/or follow-up after discharge. showroom executive director/Cotton Picker Operator will continue to follow patient's progress and [...] and Toleration of treatments; MDI changed to nursing informatics clinical analyst. RT WILLARD 08/17/22 * Dayday Sanchez MD [...] deficits MSK: Normal ROM CBC Recent Labs 08/17/22425 WBC 17.61* RBC 4.66 HGB 13.4 HCT 39.0 MCV 84 MCHC 34.4 PLT 333 BMP Recent Labs 08/17/22425 CREATININE 0.93 BUN 10 NA 139 K [...] from 7AM-5PM page the Urology Service Pager #[phone] with questions. Nights and weekends, please page [...] PA-C 08/16/2022 7:22 Source Note - Kristan Whittaker FNP - 07/24/2022 0:00 EDT documented in [...] and draped in usual sterile fashion. A 22-Romanian cystoscope and sheath were introduced into the bladder via the urethra. The bladder was examined in its entirety, all mucosa was visualized and all appeared normal. The right ureteral orifice was identified and cannulated with a 5-Romanian open-ended ureteral catheter, which was passed up to the level of the renal pelvis without difficulty and was secured to a 16-Romanian Baker catheter for retrograde injection later in [...] no specimens removed, and no drains retained. Juan Solitario MD / CD Confirmation: [id number] Dictation ID: [id number] cc: documented in this encounter Miscellaneous Notes * Plan of Care - Benjamin Nieto RN - 08/17/2022 7459 EDT Discharge Note D - Patient ordered for discharge today. A - Patient given prescriptions, medication information sheets and After Visit Summary. Medication list, follow up appointments and care instructions reviewed with patient. IVs and ID band removed. Report called to [facility] R - Patient questions reviewed and addressed [...] small bloody output. The patient reported pain 6-910. The reported pain location was abdominal area [...] Note - Sonya Carbajal PA-C - 08/16/2022 0758 EDT [facility] Urologic Surgery Brief Post-Op Note Date of [...] Tylenol ??? Abx: Cefazolin x3 doses ??? KADE: 1 to 2 days ??? Nicotine patch [...] 49.9 in adult, unspecified obesity type ([facility]) (HCC) ([facility]) Renal mass Expected: 08/19/2022 (Approximate), Expires: 08/17/2023 [...] INTERFACED Routine 08/16/2022 7:58 EDT ZZCOVID-19 TEST [facility] PCR STAT 08/16/2022 7:42 EDT COVID-19 TESTING STAT 08/16/2022 7:42 EDT documented in this encounter Results * CREATININE, FLUID (08/17/2022 13:57 EDT) Creatinine, Fluid 1.27 See Note mg/dL 08/17/2022 15:28 EDT [facility] Comment: Peritoneal Fluid Reference range unavailable. Clinical correlation required. This Fluid Creatinine assay was developed and its performance characteristics determined by [facility]. ??It has not been cleared or approved by the US Food and Drug Administration. Fluid PERITONEAL FLUID / Unknown 08/17/2022 13:57 EDT 08/17/2022 14:14 EDT Sonya Carbajal PA-C GEN LAB UNIT CO LLECT ORDERABLES [facility] [address] [place] [address] * (ABNORMAL) POCT GLUCOSE, INTERFACED (08/17/2022 11:51 EDT) Glucose, POC 180(H) 70 - 100 mg/dL 08/17/2022 11:53 EDT [facility] HN LAB POC COMMENT (GLUCOSE) Test Performed by Nursing Services 08/17/2022 11:53 EDT [facility] Blood CAPILLARY BLOOD / Unknown 08/17/2022 11:51 EDT 08/17/2022 11:53 EDT Sonya Carbajal PA-C POINT OF CARE T EST ORDERABLES Performing Organization Address [facility] Co de Phone Number [facility] [address] [place] [address] * (ABNORMAL) POCT GLUCOSE, INTERFACED (08/17/2022 6:46 EDT) Glucose, POC 177(H) 70 - 100 mg/dL 08/17/2022 6:48 EDT [facility] HN LAB POC COMMENT (GLUCOSE) Test Performed by Nursing Services 08/17/2022 6:48 EDT [facility] Blood CAPILLARY BLOOD / Unknown 08/17/2022 6:46 EDT 08/17/2022 6:48 EDT Sonya Carbajal PA-C POINT OF CARE T EST ORDERABLES Performing Organization Address [facility] Co de Phone Number [facility] [address] [place] [address] * (ABNORMAL) GLUCOSE, SERUM (08/17/2022 4:26 EDT) Glucose 172(H) 70 - 100 mg/dL 08/17/2022 5:17 EDT [facility] Blood VENOUS BLOOD / Unknown Venipuncture / Unknown 08/17/2022 4:26 EDT 08/17/2022 4:48 EDT Sonya Carbajal PA-C CHEMISTRY & BLO OD GAS ORDERABLES Performing Organization Address City/[facility]/ZIP Co de Phone Number [facility] [address] [place] [address] * CREATININE (08/17/2022 4:26 EDT) Creatinine 0.93 0.52 - 1.04 mg/dL 08/17/2022 5:17 EDT [facility] eGFR 80 >60 mL/min/1.73 m2 08/17/2022 5:17 EDT [facility] Blood VENOUS BLOOD / Unknown Venipuncture / Unknown 08/17/2022 4:26 EDT 08/17/2022 4:48 EDT Sonya A Stampfl PA-C CHEMISTRY & BLO OD GAS ORDERABLES Performing Organization Address [facility] Co de Phone Number [facility] [address] [place] [address] * BUN (08/17/2022 4:26 EDT) BUN 10 10 - 26 mg/dL 08/17/2022 5:17 EDT [facility] Blood VENOUS BLOOD / Unknown Venipuncture / Unknown 08/17/2022 4:26 EDT 08/17/2022 4:48 EDT Sonya A Stampfl PA-C CHEMISTRY & BLO OD GAS ORDERABLES Performing Organization Address [facility]/[place]UST de Phone Number [facility] [address] [place] [address] * ELECTROLYTES (08/17/2022 4:26 EDT) Sodium 139 136 - 145 mmol/L 08/17/2022 5:17 EDT [facility] Potassium 3.5 3.5 - 5.0 mmol/L 08/17/2022 5:17 EDT [facility] Chloride 100 96 - 110 mmol/L 08/17/2022 5:17 EDT [facility] CO2 Total 25 22 - 32 mmol/L 08/17/2022 5:17 EDT [facility] Anion Gap 14 5 - 14 08/17/2022 5:17 EDT [facility] Blood VENOUS BLOOD / Unknown Venipuncture / Unknown 08/17/2022 4:26 EDT 08/17/2022 4:48 EDT Sonya A Stampfl PA-C CHEMISTRY & BLO OD GAS ORDERABLES Performing Organization Address [facility] Co de Phone Number [facility] [address] [place] [address] * (ABNORMAL) COMPLETE BLOOD COUNT (08/17/2022 4:26 EDT) WBC 17.61(H) 4.00 - 12.40 K/cmm 08/17/2022 4:37 T [facility] RBC 4.66 3.86 - 5.04 M/cmm 08/17/2022 4:37 [facility] Hemoglobin 13.4 11.6 - 15.2 gm/dL 08/17/2022 4:37 [facility] HCT 39.0 34.9 - 44.4 % 08/17/2022 4:37 [facility] MCV 84 81 - 98 fl 08/17/2022 4:37 [facility] MCH 28.8 26.7 - 33.3 pg 08/17/2022 4:37 [facility] MCHC 34.4 32.1 - 35.9 gm/dL 08/17/2022 4:37 [facility] RDW-CV 13.2 <14.7 % 08/17/2022 4:37 [facility] RDW-SD 40.3 <50.4 fl 08/17/2022 4:37 [facility] PLT 333 141 - 377 K/cmm 08/17/2022 4:37 [facility] MPV 9.1(L) 9.5 - 12.7 fl 08/17/2022 4:37 [facility] Blood VENOUS BLOOD / Unknown Venipuncture / Unknown 08/17/2022 4:26 EDT 08/17/2022 4:30 EDT Sonya Carbajal PA-C HEMATOLOGY & PF 4 ORDERABLES [facility] [address] [place] [address] * (ABNORMAL) POCT GLUCOSE, INTERFACED (08/17/2022 0:40 EDT) Glucose, POC 195(H) 70 - 100 mg/dL 08/17/2022 0:42 EDT [facility] HN LAB POC COMMENT (GLUCOSE) Test Performed by Nursing Services 08/17/2022 0:42 EDT [facility] Blood CAPILLARY BLOOD / Unknown 08/17/2022 0:40 EDT 08/17/2022 0:42 EDT Sonya Carbajal PA-C POINT OF CARE T EST ORDERABLES Performing Organization Address [facility]/ZIP Co de Phone Number [facility] [address] [place] [address] * (ABNORMAL) POCT GLUCOSE, INTERFACED (08/16/2022 21:20 EDT) Glucose, POC 223(H) 70 - 100 mg/dL 08/16/2022 21:22 EDT [facility] HN LAB POC COMMENT (GLUCOSE) Test Performed by Nursing Services 08/16/2022 21:22 EDT [facility] Blood CAPILLARY BLOOD / Unknown 08/16/2022 21:20 EDT 08/16/2022 21:22 EDT Juan Solitario MD POINT OF CARE YUNIOR T ORDERABLES Performing Organization Address [facility] Co de Phone Number [facility] [address] [place] [address] * (ABNORMAL) POCT GLUCOSE, INTERFACED (08/16/2022 20:39 EDT) Glucose, POC 266(H) 70 - 100 mg/dL 08/16/2022 20:41 EDT [facility] HN LAB POC COMMENT (GLUCOSE) Test Performed by Nursing Services 08/16/2022 20:41 EDT [facility] Blood CAPILLARY BLOOD / Unknown 08/16/2022 20:39 EDT 08/16/2022 20:41 EDT Juan Solitario MD POINT OF CARE YUNIOR T ORDERABLES [facility] [address] [place] [address] * (ABNORMAL) POCT GLUCOSE, INTERFACED (08/16/2022 19:22 EDT) Glucose, POC 209(H) 70 - 100 mg/dL 08/16/2022 19:23 EDT [facility] HN LAB POC COMMENT (GLUCOSE) Test Performed by Nursing Services 08/16/2022 19:23 EDT [facility] Blood CAPILLARY BLOOD / Unknown 08/16/2022 19:22 EDT 08/16/2022 19:23 EDT Juan Solitario MD POINT OF CARE YUNIOR T ORDERABLES [facility] [address] [place] [address] * (ABNORMAL) POCT GLUCOSE, INTERFACED (08/16/2022 18:18 EDT) Glucose, POC 204(H) 70 - 100 mg/dL 08/16/2022 18:19 EDT [facility] HN LAB POC COMMENT (GLUCOSE) Test Performed by Nursing Services 08/16/2022 18:19 EDT [facility] Blood CAPILLARY BLOOD / Unknown 08/16/2022 18:18 EDT 08/16/2022 18:19 EDT Sonya Carbajal PA-C POINT OF CARE T EST ORDERABLES [facility] [address] [place] [address] * (ABNORMAL) POCT GLUCOSE, INTERFACED (08/16/2022 12:55 EDT) Glucose, POC 239(H) 70 - 100 mg/dL 08/16/2022 12:57 EDT [facility] HN LAB POC COMMENT (GLUCOSE) Test Performed by Nursing Services 08/16/2022 12:57 EDT [facility] Blood CAPILLARY BLOOD / Unknown 08/16/2022 12:55 EDT 08/16/2022 12:57 EDT Juan Luke MD POINT OF CARE YUNIOR T ORDERABLES [facility] [address] [place] [address] * SURGICAL PATHOLOGY (08/16/2022 11:56 EDT) Note to Patient The following pathology results have been interpreted by your pathologist and may be available to you before your health provider has had the opportunity to review them. Please allow time for your provider to receive these results and explore management options, if applicable. 14:43 EDT [facility] Final Diagnosis A. KIDNEY, LEFT, MASS, ROBOTIC ASSISTED LAPAROSCOPIC PARTIAL NEPHRECTOMY: - Clear cell renal cell carcinoma, WHO/ISUP grade: II (AJCC: pT1a, pN not assigned; no nodes submitted). See synoptic report. - Surgical resection/parenchym al margin negative for carcinoma. 14:43 EDT [facility] Diagnosis Comment The carcinoma shows areas of cystic dilation and pushes into the perinephric fat and forms a pseudocapsule but does not directly invade the peripheric adipose tissue and is confined to the kidney. The carcinoma is 4 mm from the parenchymal resection margin. Medical I D Sales slides of this case were reviewed at the intradepartmental consultation conference. Immunoperoxidase stains were performed on this case to further characterize the lesion. ANTIBODY(CLONE)(BLO CK):RESULT CA IX (EP161, Cell Keshav) (block A4): positive CK7 (RN7, Leica) (block [...] performance characteristics have been determined by [facility] and/or by the referring laboratory. The [...] high complexity clinical laboratory testing. 2 14:43 [facility] Attestation There was significant resident/fellow involvement in the diagnostic evaluation of this case. By the signature below, the attending physician certifies that they have personally conducted a gross and/or microscopic examination of the described specimens and rendered or confirmed the above diagnosis. 2 14:43 [facility] at 1443 Synoptic KIDNEY: Nephrectomy [...] in Nonneoplastic Kidney: ?None identified 2 14:43 [facility] Intraoperative Consultation A. KIDNEY, RIGHT, PARTIAL NEPHRECTOMY, GROSS MARGIN: - 4 mm to nearest parenchymal margin. - Reported to Dr. Solitario at 12:[address] Quiñonez 08/16/22. Dr. Jc Quiñonez I have personally reviewed the specimen and the resident's interpretation and agree with the findings. Dr. Ally Parr 08/16/2022 13:30 2 14:43 [facility] Clinical History Renal mass 08/22/20 2 2 14:43 [facility] Gross Description A. Received fresh [...] performed with the interpretation as rendered above. Medical I D Sales sections are submitted as follows: INK CARDOZO Blue-parenchymal margin Black-capsule BLOCK CARDOZO A1- tumor with nearest capsule A2- tumor with nearest parenchymal margin A3-A6- sales representative cash registers tumor with adjacent normal kidney and area closest to hilum Rafael Lujan MD 08/17/2022 13:47 2 14:43 [facility] Resident/Fellow: Rafael Lujan MD 2 14:43 [facility] Performing Lab [facility] 2 14:43 [facility] Scanned Images 2 14:43 [facility] Tissue ENTIRE KIDNEY / Unknown 08/16/2022 11:56 EDT 08/16/2022 12:11 EDT Juan Solitario MD PATHOLOGY ORDERAB LES Performing Organization Address City/[facility]/ZIP Co de Phone Number [facility] [address] [place] [address] * TYPE AND SCREEN (08/16/2022 8:46 EDT) [facility] ABO A 08/16/2022 9:48 EDT [facility] Rh Factor Positive 08/16/2022 9:48 EDT [facility] Antibody Screen Negative 08/16/2022 9:48 EDT [facility] Specimen Expires: 08/19/2022 @ 23:59 08/16/2022 9:48 EDT [facility] Blood VENOUS BLOOD / Unknown Venipuncture / Unknown 08/16/2022 8:46 EDT 08/16/2022 8:59 EDT Juan Luke MD BLOOD BANK TESTS Performing Organization Address [facility] Co de Phone Number [facility] [address] [place] [address] * TEST, URINE (08/16/2022 8:10 EDT) [facility] Test, Urine Negative Negative 08/16/2022 8:19 EDT [facility] Comment:False negative resul ts may occur in women who are beyond 5-8 weeks gestation. Diagnosis of should be based on a correlation of test results with typical clinical signs and symptoms. Urine URINE / Unknown Urine Collect / Unknown 08/16/2022 8:10 EDT 08/16/2022 8:12 EDT Kate Parra MD URINALYSIS ORDER ROMEO Performing Organization Address City/[facility]/ZIP Co de Phone Number [facility] [address] [place] [address] * (ABNORMAL) POCT GLUCOSE, INTERFACED (08/16/2022 7:58 EDT) [facility] Glucose, POC 134(H) 70 - 100 mg/dL 08/16/2022 7:59 EDT [facility] HN LAB POC COMMENT (GLUCOSE) Test Performed by Nursing Services 08/16/2022 7:59 EDT [facility] Blood CAPILLARY BLOOD / Unknown 08/16/2022 7:58 EDT 08/16/2022 7:59 EDT Juan Solitario MD POINT OF CARE YUNIOR T ORDERABLES Performing Organization Address [facility] Co de Phone Number [facility] [address] [place] [address] * COVID-19 TEST [facility] PCR (08/16/2022 7:42 EDT) Swab BOTH ANTERIOR NARES / Unknown Swab / Unknown 08/16/2022 7:42 EDT 08/16/2022 7:57 EDT Juan Solitario MD MICROBIOLOGY - NERAL ORDERABLES Performing Organization Address [facility] Co de Phone Number [facility] [address] [place] [address] * COVID-19 TESTING (08/16/2022 7:42 EDT) Pathologist [facility] COVID-19 rt-PCR Result Negative Negative 08/16/2022 12:47 EDT [facility] Comment: This test has [...] history, and epidemiological information. Performed on the [employer] [place] Fusion instrument Performing Lab [place] [facility] 08/16/2022 12:47 EDT [facility] Swab BOTH ANTERIOR NARES / Unknown Swab / Unknown 08/16/2022 7:42 EDT 08/16/2022 7:57 EDT Juan Solitario MD MICROBIOLOGY - [facility] ORDERABLES [facility] [address] [place] [address] documented in this encounter Visit Diagnoses Diagnosis Renal mass- Primary Unspecified disorder of kidney and ureter Class 3 severe obesity without serious comorbidity with body mass index (BMI) of 45.0 to 49.9 in adult, unspecified obesity type (HCC-CMS) Renal mass Unspecified disorder of kidney and ureter Type 2 diabetes mellitus, without long-term current use of insulin ([facility]) Class 3 severe obesity in adult ([facility]) Renal mass Unspecified disorder of kidney and ureter documented in this encounter Admitting Diagnoses Diagnosis [...] mg Given 08/16/2022 17:17 EDT 40 mg bupivacaine (PF) (MARCAINE) 0.5% injection PRN, Starting on Sat08/16/22 at 1230, Until Sat08/16/22 at 1246, Routine, Intraprocedure Given 08/16/2022 12:30 EDT 1 7 mL ceFAZolin in dextrose (iso-os) piggyback 2 g/100 [...] mg Given 08/16/2022 17:17 EDT 2,000 mg cellulose, oxidized 3 x 4 (NU-KNIT) pad PRN, Starting on Sat08/16/22 at 1152, Until Sat08/16/22 at 1246, Intraprocedure Given 08/16/2022 11:52 EDT 1 Each diphenhydrAMINE (BENADRYL) injection 25 mg 25 mg, [...] infusion 30 mL/hr, intravenous, CONTINUOUS, Starting on Deysi 08/16/22 at 0800, Until Sat08/16/22 at 1634, Routine, Preprocedure New Bag 08/16/2022 11:30 EDT Restarted 08/16/2022 8:31 EDT New Bag 08/16/2022 8:16 EDT 30 mL/hr 30 mL/hr lactated ringers (LR) infusion at 75 mL/hr, intravenous, PACU CONTINUOUS, Starting on Deysi 08/16/22 at 1245, Until Sat08/16/22 at 1632, Routine, [...] Starting on Deysi 08/16/22 at 1223, Until Sat08/16/22 at 1408, Nausea, [...] infusion 125 mL/hr, intravenous, CONTINUOUS, Starting on Sat08/16/22 at 1700, Until Sat08/17/22 at 0641, Routine New Bag 08/17/2022 2:43 EDT 125 mL/hr 125 mL/hr Rate Documented 08/16/2022 20:35 EDT 125 mL/hr 125 mL/hr New Bag 08/16/2022 18:25 EDT 125 mL/hr 125 mL/hr sodium chloride 0.9 % irrigation PRN, Starting on Sat08/16/22 at 1153, Until Sat08/16/22 at 1246, Routine, Intraprocedure Given 08/16/2022 11:5 3 EDT 3,000 mL sterile water (bottle) irrigation PRN, Starting on Sat08/16/22 at 1153, Until Deysi 08/16/22 at 1246, Intraprocedure Given 08/16/2022 11:53 EDT 500 mL documented in this encounter Discontinued Medications Medication [...] rectal, EVERY 6 HOURS, First dose on Deysi 08/16/22 at 1800, Until Discontinued, Routine 1723 (See Alternative - Provider: Nahum Davis RN)2311 (See Alternative - Provider: Gabbie Merchant RN) 0607 (See Alternative - Provider: Gabbie Merchant, ARVIND)1152 (See Alternative - Provider: Benjamin Nieto, ARVIND)1704 (See Alternative - Provider: Benjamin Nieto, RN) acetaminophen (TYLENOL) tablet 1,000 mg(Linked Group 1) 1,000 mg, oral, EVERY 6 HOURS, First dose on Deysi 08/16/22 at 1800, Until Discontinued, Routine 1723 (Not Given - Provider: Nahum Davis RN - Reason: Other)2311 (Given - Provider: Gabbie Merchant RN) 0607 (Given - Provider: Gabbie Merchant, ARVIND)1152 (Given - Provider: Benjamin Nieto, ARVIND)1704 (Given - Provider: Benjamin Nieto, RN) atorvastatin (LIPITOR) tablet 40 mg 40 mg, oral, DAILY, First dose on Deysi 08/16/22 at 1700, Until Discontinued, Routine 1717 (Given - Provider: Nahum Davis RN) 0805 (Given - Provider: Benjamin Nieto, ARVIND) ceFAZolin (ANCEF) syringe 2 g (COMPLETED) 2 [...] Recovery (only) 1342 (Given - Provider: Tarah Gates, ARVIND) ceFAZolin in dextrose (iso-os) piggyback 2 g/100 mL (COMPLETED) 2,000 mg, intravenous, Administer over 30 Minutes, EVERY 8 HOURS, 2 doses, First dose on Sat08/16/22 at 1700, Last dose on Sat08/17/22 at 0100, Type of Therapy: Prophylaxis, Suspected Indication (Select all that apply): Surgical prophylaxis, Routine 171 (Given - Provider: Nahum Davis RN) 004 (Given - Provider: Gabbie Merchant RN) docusate sodium (COLACE) capsule 100 mg 100 mg, oral, 2 TIMES DAILY, First dose on Sat08/16/22 at 2100, Until Discontinued, Routine 2023 (Given - Provider: Gabbie Merchant, ARVIND) 0805 (Given - Provider: Benjamin Nieto, ARVIND) heparin injection 5,000 Units (COMPLETED) 5,000 Units, subcutaneous, PRE-OP ONCE, 1 dose, On Sat08/16/22 at 0800, Routine, Preprocedure 0817 (Given - Provider: Cami Silva RN) heparin injection 5,000 Units 5,000 Units, subcutaneous, EVERY 8 HOURS, First dose on Sat08/16/22 at 1700, Until Discontinued, Routine 171 (Given - Provider: Nahum Davis RN)2310 (Given - Provider: Gabbie Merchant RN) 0805 (Given - Provider: Benjamin Nieto, ARVIND)1600 (Canceled Entry - Provider: Batch Job User Admin - Comment: Automatically canceled at discontinue of medication order) insulin aspart U-100 (NOVOLOG FLEXPEN) injection subcutaneous, EVERY 6 HOURS, First dose on Sat08/16/22 at 1330, Until Discontinued, Routine, Indications: SUPPLEMENTAL INSULIN 1333 (Given - Provider: Tarah Gates, ARVIND)1825 (Given - Provider: Nahum Davis RN) 004 (Given - Provider: Gabbie Merchant RN - Comment: fs [phone] (Given - Provider: Gabbie Merchant RN - Comment: fs [phone])1154 (Given - Provider: Benjamin Nieto RN)1800 (Canceled Entry - Provider: Batch Job User Admin - Comment: Automatically canceled at discontinue of medication order) insulin aspart U-100 (NOVOLOG FLEXPEN) injection subcutaneous, AT BEDTIME, First dose on Sat08/16/22 at 2100, Until Discontinued, Routine 214 (Not Given - Provider: Gabbie Merchant RN [...] (CANCELED) 30 mL/hr, intravenous, CONTINUOUS, Starting on Sat08/16/22 at 0800, Until Sat08/16/22 at 1634, Routine, Preprocedure 0816 (New Bag - Provider: Cami Silva RN)0830 (Paused - Provider: Kalie King CRNA - Comment: Switch to gravity)0831 (Restarted - Provider: Kalie King CRNA)1130 (New Bag - Provider: Kalie King CRNA)1250 (Anesthesia Volume Adjustment - Provider: Kalie King CRNA) lactated ringers (LR) infusion (CANCELED) at 75 mL/hr, intravenous, PACU CONTINUOUS, Starting on Deysi 08/16/22 at 1245, Until Sat08/16/22 at 1632, Routine, Recovery (only) 1249 (Rate Change - Provider: Tarah Gates, ARVIND) sodium chloride 0.9 % (NS) infusion (CANCELED) 125 mL/hr, intravenous, CONTINUOUS, Starting on Deysi 08/16/22 at 1700, Until Sat08/17/22 at 0641, Routine 1825 (New Bag - Provider: Nahum Davis, RN)2035 (Rate Documented - Provider: Gabbie Merchant, ARVIND) 0243 (New Bag - Provider: Gabbie Merchant, ARVIND)0713 (IV Stopped - Provider: Gabbie Merchant, RN) PRN Medication Order 08/15/2022 08/16/2022 08/17/2022 acetaminophen (TYLENOL) tablet 1,000 mg (COMPLETED) 1,000 mg, oral, PRN, 1 dose, Starting on Deysi 08/16/22 at 1500, Until Deysi 08/16/22 at 1542, Pain, Routine, Recovery (only) 1542 (Given - Provider: Nelda Sena, ARVIND) albuterol inhaler 180 mcg 180 mcg (2 Puff), inhalation, EVERY 4 HOURS PRN, Starting on Deysi 08/16/22 at 1634, Until Sat08/17/22 at 1906, Wheezing, Routine bisacodyL (DULCOLAX) suppository 10 mg 10 mg, rectal, DAILY PRN, Starting on Deysi 08/16/22 at 1634, Until Sat08/17/22 at 1906, Constipation, Routine bupivacaine (PF) (MARCAINE) 0.5% injection (CANCELED) PRN, Starting on Deysi 08/16/22 at 1230, Until Deysi 08/16/22 at 1246, Routine, Intraprocedure 1230 (Given - Provider: Nathan Long MD) cellulose, oxidized 3 x 4 (NU-KNIT) pad (CANCELED) PRN, Starting on Deysi 08/16/22 at 1152, Until Sat08/16/22 at 1246, Intraprocedure [...] Anxiety, Routine 2311 (Given - Provider: Gabbie Merchant, RN) 0608 (Given - Provider: Gabbie Merchant [...] 4-6, Routine 2310 (Given - Provider: Gabbie Merchant, ARVIND) 0608 (Given - Provider: Gabbie Merchant, ARVIND) melatonin tablet 3 mg 3 mg, oral, AT BEDTIME PRN, Starting on Sat08/16/22 at 1634, Until Sat08/17/22 at 1906, Sleep, [...] RN) 0805 (Given - Provider: Benjamin Nieto RN)1152 (Given - Provider: Benjamin Nieto RN)1655 (Given - Provider: Benjamin Nieto RN) oxyCODONE (ROXICODONE) immediate release tablet 5 [...] Recovery (only) 1322 (Given - Provider: Tarah Gates RN)1410 (Given - Provider: Tarah Gates, ARVIND) phenazopyridine (PYRIDIUM) tablet 200 mg 200 mg, oral, 3 TIMES DAILY PRN, 9 doses, Starting on Sat08/16/22 at 1303, Until Sat08/17/22 at 1906, Pain, Routine 1322 (Given - Provider: Tarah Gates, ARVIND)2157 (Given - Provider: Gabbie Merchant RN) sodium [...] 1634, Until Sat08/17/22 at 1906, Nausea, Routine documented in this encounter Orders Medications Ordered That Sheng ht Not Have Been Administered Count Last Ordered Date First Ordered Date acetaminophen (TYLENOL) suppository 650 mg 1 08/16/2022 albuterol inhaler 180 mcg 1 08/16/2022 atropine 0.1 mg/mL syringe 0.5 mg 1 022 bisacodyL (DULCOLAX) suppository 10 mg 1 ceFAZolin (ANCEF) syringe 2 g 1 08/16/2022 dextrose 50 % solution 12.5 [...] dis integrating tablet 4 mg 1 08/16/2022 Nursing Count Last Ordered Date First Orde red Date BAKER CATHETER - DISCONTINUE 1 08/17/2022 CATHETER CARE 1 08/16/2022 Discharge Count Last Ordered Date First Orde red Date DISCHARGE PATIENT 2 08/17/2022 documented in this encounter Care Teams Scow Derrick Operator Relationship Specialty Start Date End Date Perla Zamorano, CONTRACT ASSOCIATE [address] [place] [address] PCP - General 04/26/22 documented as of this encounter
--- OUTSIDE RECORDS SUMMARY | 2024-07-02 18:51 | XMS_ITS | Encounter Summary ---
Author Organization [facility] Address [address] [place] [address] Care Team Providers Care Red Lead Burner Name Role Phone LonaPerla John TERMINAL MANAGER Primary Care Provider [phone] Encounter Details Date Type Department Care Team (Late st Contact Info) Description 05/24/2023 Lab Requisition [facility] Pathology & Laboratory Medicine - [address] [address] Outr Resulting Lab, Provider Social History Tobacco [...] Procedure Name Priority Date/Time Associated Diagnosis Comments HIV 1/2 ANTIGEN AND ANTIBODY, 4TH GENERATION Routine 05/23/2023 12:00 EDT documented in this encounter Results * HIV 1/2 ANTIGEN AND ANTIBODY, 4TH GENERATION (05/23/2023 12:00 EDT) HIV 1 and 2 Antibody/p24 Antigen, 4th Generation Negative Negative 05/25/2023 9:11 EDT [facility] Comment:If acute HIV-1 infec tion is suspected in a high risk patient, submit plasma specimen for HIV-1 RNA quantitation test. Blood VENOUS BLOOD / Unknown 05/23/2023 12:00 EDT 05/24/2023 18:40 EDT Narrative [facility] - 05/25/2023 9:11 EDT Fourth Generation assay performed on the Siemens Centaur XPT. Provider Outr Resulting Lab IMMUNOLOGY A ND SEROLOGY ORDERABLES [facility] [address] [place] [address] documented in this encounter Visit Diagnoses Not on filedocumented in this encounter Care Teams Red Lead Burner Relationship Specialty Start Date End Date Perla Zamorano NP [address] [place] [address] PCP - General 04/26/22 documented as of this encounter
--- OUTSIDE RECORDS SUMMARY | 2024-07-02 18:51 | XMS_ITS | Encounter Summary ---
Author Organization [facility] Address [address] [place] [address] Care Team Providers Care Associate Dean Of Students Name Role Phone Reji Zamoranoi John BOILER SHOP SUPERVISOR Primary Care Provider [phone] Reason for Visit * Auth/Cert Specialty Diagnoses / Procedures [facility] Referred To Contact Diagnoses Renal mass Procedures TN LAP,PARTIAL NEPHRECTOMY TN CYSTOURETHROSCOPY,URETER CATHETER Cystoscopy, right ureteral catheter insertion, right robotic assisted laparoscopic partial nephrectomy CYSTOSCOPY, WITH URETERAL CATHETER INSERTION Referral ID Status Reason Start Date Expiration Date Visits Re quested Visits Authorized [id number] 11/24/2022 1 1 Encounter Details Date Type Department Care Team (Late st Contact Info) Description 08/16/2022 8:31 EDT Anesthesia Event [facility] OR [address] [place] [address] [phone] Juan Luke MD [address] [place] [address], [address] [place] [address] Iram Villanueva MD [address] [place] [id number] Anesthesia Record Procedure Summary Procedure Name Responsible [...] for questions and acknowledgement of understanding. Meds Name Total dexaMETHasone (DECADRON) injection 4 mg/ mL (for IV doses up to 10mg) 4 mg fentanyl citrate (PF) injection 300 mcg ketAMINE 5 mL prefilled syringe 50 mg midazolam (versed) 1 mg/mL 2 mL vial 2 m g ondansetron (PF) (ZOFRAN) injection 4 mg lidocaine 2% (PF) injection glass vial 1 60 mg propOFol (DIPRIVAN) injection 200 mg propOFol injection 2,289,105 mcg rocuronium 10 mg/mL vial 180 mg sugammadex 100 mg/mL 2 mL vial 300 mg ceFAZolin (ANCEF) syringe 2 g 3 g acetaminophen 10 mg/ml 100 mL infusion 1 ,000 mg dexmedetomidine injection - vial 36 mcg furosemide 10 mg/mL injection 30 mg mannitol 25 % injection 25 g lactated ringers (LR) infusion 1,600 mL * Agents Name Insp Sevoflurane Exp Sevoflurane O2 N2O Air * Blood No blood administrations on file. [...] Kay Blackburn RN 08/17/22 0812 by Benjamin Munoz RN NG/OG Tube 08/16/22; 0905; At bedside by [...] Yes 12/01/2019 documented as of this encounter OR Notes * Anesthesia Postprocedure Evaluation - Kalie King CRNA - 08/16/2022 1251 EDT Patient: Yesenia Fragoso Vital signs were reviewed with the recovery nurse. Complete vitals [facility] is available [facility] Vitals Value Taken Time BP 154/87 08/16/22 1249 Temp 36.5 08/16/22 1251 Resp 21 08/16/22 1251 Pulse From Oximetry 92 BPM 08/16/22 1250 SpO2 95 % 08/16/22 1250 Heart Rate 93 BPM 08/16/22 1249 Vitals shown include unvalidated device data. Last Pain Score - Type of Anesthesia - general Anesthesia Post Evaluation Post-procedure vitals reviewed and are stable. Level of consciousness: responsive/arousable to verbal stimuli Temperature status: normothermia Respiratory status: airway patent and nasal cannula Cardiovascular status: acceptable Hydration status: adequate Nausea/Vomiting: none Pain management: adequate Post-Op Assessment: patient tolerated procedure well with no complications Patient participation: unable to participate due to sedation Disposition: inpatient Anesthesia Complications: No apparent anesthesia complications * Anesthesia Procedure Notes - Kalie King CRNA - 08/16/2022 0933 EDT Associated Order(s): Airway Airway Date/Time: 08/16/2022 8:44 Urgency: elective Airway not difficult General Information and Staff Patient location during procedure: OR Performed: resident/BODY FINISHER/AA Indications and Patient Condition Indications for airway management: anesthesia Sedation level: GA Preoxygenated: yes Patient position: ramp Ventilation assessment: 1 - Easy Final Airway Details Final airway type: endotracheal airway Successful airway: ETT Cuffed: yes Successful intubation technique: video laryngoscopy Richards Facilitating devices/methods: intubating stylet Endotracheal tube insertion site: oral Blade: Melany Blade size: #3 ETT size (mm): 7.5 Cormack-Lehane Classification: grade I - full view of glottis Placement verified by: chest auscultation and capnometry Cuff volume (mL): 8 Measured from: teeth ETT to teeth (cm): 21 Number of attempts at approach: 1 Ventilation between attempts: none Number of other approaches attempted: 0 * Anesthesia Preprocedure Evaluation - Juan Luke MD - 08/16/2022 0802 EDT Anesthesia Preprocedure Evaluation Patient Medical History, including Anesthesia History reviewed. Ms. Fragoso is a 41-year-old woman who was noted to have a complex cystic lesion in the lower pole ofher right kidney on CT scan. 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 This measures 4.1 cm in largest dimension. From [facility] note 04/27/22 Chart and Nursing Notes reviewed, including NPO status and Medication History. Additional ROS/History Findings: MR Abdomen IMPRESSION 1. 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 The renal vein and IVC are patent. 2. Indeterminate T1 and T2 hyperintense enhancing nodules along the paraspinal subcutaneous fat andmusculature, increased in size compared with 2017. 3. Hepatomegaly and hepatic steatosis. Allergies Allergen Reactions ??? Dilaudid [Hydromorphone] itching ??? Morphine Hives ??? Penicillin V Potassium ??? Venlafaxine Review of Systems Respiratory: Positive for cough (chronic, still smoking tobacco). Cardiovascular: Negative. Gastrointestinal: Positive for heartburn (takes tums, occasional symptoms). Neurological: Positive for headaches. Psychiatric/Behavioral: The patient is nervous/anxious. Past Medical History: Diagnosis Date ??? Anesthesia complication give pt migraines ??? Anxiety ??? Arthritis 04/25/20 knees and spine ??? Asthma chronic cough, baseline; rescue inhaler bi-weekly; ??? Depression stopped prozac 08/2011 when discovered ??? Diabetes mellitus affecting in first trimester 04/30/2018 ??? Diabetes mellitus, type 2 (HCC) A1C 8.7 (05/25/22); drawn more recently per pt- ??? Exercise involving walking 08/09/22- some SON due to asthma, pain is limiting ??? GERD (gastroesophageal reflux disease) 04/25/20 mint leaves help, herbal remidies; 08/09/22- controlled TUMs prn- ??? History of epidural anesthesia 04/25/20 Had rash during surgery and other on had worn off before done ??? Hypothyroidism ??? Hypothyroidism affecting , antepartum 04/30/2018 ??? Mass of right kidney ??? Migraines ? ? Nausea & vomiting ??? Panic attacks 04/25/20 had with panic attack ??? Poor dentition From H&P [facility] BOILER SHOP SUPERVISOR (07/23/22)- current dental infection. Went to ED 07/22/22 continues on oral ABXafter IV abx infusion, facial CT negative for new drainable abscess. Has apt for multiple extractions on 07/24/[address] Abdalla- WBC 14.9 in ED- ??? Rash sores on stomach from body rubbing and moisture- ??? Sleep apnea no cpap or bipap ??? 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 Vertigo 04/25/20 gets when has migranes Relevant Problems PULMONARY (+) Asthma affecting , antepartum ENDO/GI (+) Hypothyroidism affecting , antepartum (+) Type 2 diabetes mellitus affecting in second trimester, antepartum (+) Type 2 diabetes mellitus, without long-term current use of insulin (HCC) Physical Exam Airway Mallampati: I TM distance: >3 FB Neck ROM: full Cardiovascular - normal exam Rhythm: regular Dental Comments: Poor dentition. Loose left upper incisor, loose lower incisors. Missing multiple teeth including rt upper midline incisor Pulmonary - normal exam Abdominal (+) obese Anesthesia Plan ASA 3 Anesthesia Type - general, to include intravenous induction. Anesthesia plan and risks discussed. Informed consent obtained from patient. Use of blood products discussed with patient who consented to blood products. Specific risks discussed were bleeding, dental injury, nausea, stroke, vomiting, myocardial infarction and . Anesthesia options and plan discussed in detail, including R/B/As of anesthetic. Patient's questions answered to patient's satisfaction. PAT Note PAT Note by Iram Villanueva MD at 08/09/2022 12:40 Version 1 of 1 41 year old female T2DM (last A1c [...] by DOS anesthesiology team. IRAM VILLANUEVA MD PAT Note by Jessika Glasgow APRN CNM at 08/09/2022 13:25 Version 5 of 5 PAT Review: Surgery 08/[address] Solitario- Hx: DM2, obesity,chronic pain, hypothyroidism, asthma Recent ED visit for dental infection- PAT call attempted however pt did not answer so call has not been completed at this time- From H&P [facility] BOILER SHOP SUPERVISOR Dated 07/23/22: current dental infection. Went to [...] reached for PAT- LUIS ROBLERO RN Addendum: 2703- pt called back, PAT call completed- Pt [...] H&P. Office aware of increased A1c by PAT RN. Pt is at this time optimized for his partial nephrectomy. Anesthesia to review chart. Jessika Glasgow APRN, MSN PAT Note by Luis Roblero, ARVIND at 08/09/2022 13:25 Version 4 of 5 PAT Review: Surgery 08/[address] Solitario- Hx: DM2, obesity,chronic pain, hypothyroidism, asthma Recent ED visit for dental infection- PAT call attempted however pt did not answer so call has not been completed at this time- From [facility] BOILER SHOP SUPERVISOR Dated 07/23/22: current dental infection. Went to [...] reached for PAT- LUIS ROBLERO RN Addendum: 4000- pt called back, PAT call completed- Pt states no longer on antibiotics; completed some time last week per pt although she was not able to state what day. In regards to A1c- pt state this has been drawn since May, however could not offer any more details. LUIS ROBLERO RN PAT Note by Luis Roblero, ARVIND at 08/09/2022 13:25 Version 3 of 5 PAT Review: Surgery 08/[address] Solitario- Hx: DM2, obesity,chronic pain, hypothyroidism, asthma Recent ED visit for dental infection- PAT call attempted however pt did not answer so call has not been completed at this time- From [facility] BOILER SHOP SUPERVISOR Dated 07/23/22: current dental infection. Went to ED 07/22/22 continues on oralABX after IV abx infusion (in ED), facial CT negative for new drainable abscess. Has apt for multiple extractions on 07/24/[address] Katherine SANCHEZ 14.9 in ED- Of Note, A1C 8.7 on 05/25/22- Will notify office of above information- see encounter- Will update if pt is reached for PAT- LUIS ROBLERO RN Addendum: 1430- pt called back, PAT call completed- Pt states no longer on antibiotics; completed some time last week per pt although she was not able to state what day. In regards to A1c- pt state this has been drawn since May, however could not offer any more details. LUIS ROBLERO RN PAT Note by Luis Roblero, RN at 08/09/2022 13:25 Version 2 of 5 PAT Review: Surgery 08/[address] Solitario- Hx: DM2, obesity,chronic pain, hypothyroidism, asthma Recent ED visit for dental infection- PAT call attempted however pt did not answer so call has not been completed at this time- From [facility] BOILER SHOP SUPERVISOR Dated 07/23/22: current dental infection. Went to ED 07/22/22 continues on oralABX after IV abx infusion (in ED), facial CT negative for new drainable abscess. Has apt for multiple extractions on 07/24/[address] Katherine SANCHEZ 14.9 in ED- Of Note, A1C 8.7 on 05/25/22- Will notify office of above information- see encounter- Will update if pt is reached for PAT- LUIS ROBLERO RN PAT Note by Luis Roblero, ARVIND at 08/09/2022 13:25 Version 1 of 5 PAT Review: Recent ED visit for dental infection- PAT call attempted however pt did not answer so call has not been completed at this time- From [facility] BOILER SHOP SUPERVISOR Dated 07/23/22: current dental infection. Went to ED 07/22/22 continues on oralABX after IV abx infusion (in ED), facial CT negative for new drainable abscess. Has apt for multiple extractions on 07/24/[address] Katherine SANCHEZ 14.Dylan in ED- Of Note, A1C 8.7 on 05/25/22- Will notify office of above information- see encounter- Will update if pt is reached for MEY ROBLERO RN documented in this encounter Plan of Treatment Not on file documented as of this encounter Procedures Procedure Name Priority Date/Time Associated Diagnosis Comments ANESTHESIA INTUBATION Routine 08/16/2022 8:44 EDT documented in this encounter Results * TN AN ELECTIVE ENDOTRACHEAL AIRWAY (08/16/2022 8:44 EDT) Narrative Kalie King CRNA - 08/16/2022 8:44 EDT Kalie King CRNA ? 08/16/2022 ??9:34 Airway Date/Time: 08/16/2022 8:44 Urgency: elective Airway not difficult General Information and Staff Patient location during procedure: OR Performed: resident/BODY FINISHER/AA Indications and Patient Condition Indications for airway management: anesthesia Sedation level: GA Preoxygenated: yes Patient position: ramp Ventilation assessment: 1 - Easy Final Airway Details Final airway type: endotracheal airway Successful airway: ETT Cuffed: yes Successful intubation technique: video laryngoscopy Richards Facilitating devices/methods: intubating stylet Endotracheal tube insertion site: oral Blade: Melany Blade size: #3 ETT size (mm): 7.5 Cormack-Lehane Classification: grade I - full view of glottis Placement verified by: chest auscultation and capnometry Cuff volume (mL): 8 Measured from: teeth ETT to teeth (cm): 21 Number of attempts at approach: 1 Ventilation between attempts: none Number of other approaches attempted: 0 Juan Luke MD ANESTHESIA ORDERA BLES documented in this encounter Visit Diagnoses Not on filedocumented in this encounter Administered Medications Inactive Administered Medications - up to 3 most recent administrations Medication Order MAR Action Action Date Dose Rate Site acetaminophen (OFIRMEV) IV solution intravenous, PRN, Starting on Deysi 08/16/22 at 0853, Until Deysi 08/16/22 at 1251, Routine, Anesthesia Intraprocedure Given 08/16/2022 8:53 EDT 1,000 mg ceFAZolin (ANCEF) syringe 2 g 2 g, intravenous, Administer over 5 Minutes, PRE-OP ONCE, 1 dose, On Deysi 08/16/22 at 0800, Type of Therapy: Prophylaxis, Suspected Indication (Select all that apply): Surgical prophylaxis, Routine, Preprocedure Given 08/16/2022 8:46 EDT 3 g dexAMETHasone (DECADRON) injection intravenous, PRN, Starting on Deysi 08/16/22 at 0907, Until Deysi 08/16/22 at 1251, Routine, Anesthesia Intraprocedure Given 08/16/2022 9:07 EDT 4 mg dexmedeTOMIDine (PRECEDEX) injection intravenous, PRN, Starting on Deysi 08/16/22 at 0840, Until Deysi 08/16/22 at 1251, Routine, Anesthesia Intraprocedure Given 08/16/2022 12:11 EDT 8 mcg Given 08/16/2022 10:32 EDT 8 mcg Given 08/16/2022 9:39 EDT 4 mcg fentaNYL citrate (PF) injection intravenous, PRN, Starting on Deysi 08/16/22 at 0840, Until Deysi 08/16/22 at 1251, Routine, Anesthesia Intraprocedure Given 08/16/2022 12:16 EDT 50 mcg Given 08/16/2022 10:43 EDT 50 mcg Given 08/16/2022 10:13 EDT 50 mcg furosemide (LASIX) injection intravenous, PRN, Starting on Deysi 08/16/22 at 1058, Until Deysi 08/16/22 at 1251, Routine, Anesthesia Intraprocedure Given 08/16/2022 11:41 EDT 20 mg Given 08/16/2022 10:58 EDT 10 mg ketAMINE in NaCl, iso-osmotic (KETALAR) 50 mg/5 mL (10 mg/mL) IV injection intravenous, PRN, Starting on Deysi 08/16/22 at 0840, Until Deysi 08/16/22 at 1251, Routine, Anesthesia Intraprocedure Given 08/16/2022 12:01 EDT 10 mg Given 08/16/2022 10:32 EDT 10 mg Given 08/16/2022 9:37 EDT 10 mg lactated ringers (LR) infusion 30 mL/hr, intravenous, CONTINUOUS, Starting on Deysi 08/16/22 at 0800, Until Deysi 08/16/22 at 1634, Routine, Preprocedure New Bag 08/16/2022 11:30 EDT Restarted 08/16/2022 8:31 EDT New Bag 08/16/2022 8:16 EDT 30 mL/hr 30 mL/hr lidocaine (PF) 20 mg/mL (2 %) injection intravenous, PRN, Starting on Deysi 08/16/22 at 0840, Until Deysi 08/16/22 at 1251, Routine, Anesthesia Intraprocedure Given 08/16/2022 12:21 EDT 60 mg Given 08/16/2022 8:40 EDT 100 mg mannitol 25 % injection intravenous, PRN, Starting on Deysi 08/16/22 at 1104, Until Deysi 08/16/22 at 1251, Routine, Anesthesia Intraprocedure Given 08/16/2022 11:45 EDT 12.5 g Given 08/16/2022 11:04 EDT 12.5 g midazolam (PF) (VERSED) injection intravenous, PRN, Starting on Deysi 08/16/22 at 0834, Until Deysi 08/16/22 at 1251, Routine, Anesthesia Intraprocedure Given 08/16/2022 8:34 EDT 2 mg ondansetron (PF) (ZOFRAN) injection intravenous, PRN, Starting on Deysi 08/16/22 at 0831, Until Deysi 08/16/22 at 1251, Routine, Anesthesia Intraprocedure Given 08/16/2022 8:31 EDT 4 mg propOFol (DIPRIVAN) injection intravenous, PRN, Starting on Deysi 08/16/22 at 0840, Until Deysi 08/16/22 at 1251, Routine, Anesthesia Intraprocedure Given 08/16/2022 8:40 EDT 200 mg propOFol (DIPRIVAN) injection intravenous, FA IP EQF CONTINUOUS PRN FOR ONE STEP MEDS, Starting on Deysi 08/16/22 at 0923, Until Deysi 08/16/22 at 1251, Routine, Anesthesia Intraprocedure Rate Change 08/16/2022 11:55 EDT 50 mcg/kg/min 45.63 mL/hr Rate Change 08/16/2022 11:43 EDT 75 mcg/kg/min 68.445 mL/h r Rate Change 08/16/2022 10:41 EDT 100 mcg/kg/min 91.26 mL/h r rocuronium (ZEMURON) injection intravenous, PRN, Starting on Deysi 08/16/22 at 0840, Until Deysi 08/16/22 at 1251, Routine, Anesthesia Intraprocedure Given 08/16/2022 12:21 EDT 30 mg Given 08/16/2022 11:20 EDT 20 mg Given 08/16/2022 10:32 EDT 10 mg sugammadex (BRIDION) injection intravenous, PRN, Starting on Deysi 08/16/22 at 1227, Until Deysi 08/16/22 at 1251, Routine, Anesthesia Intraprocedure Given 08/16/2022 12:27 EDT 300 mg documented in this encounter Care Teams Associate Dean Of Students Relationship Specialty Start Date End Date Perla Zamorano NP [address] [place] [address] PCP - General 04/26/22 documented as of this encounter
--- OUTSIDE RECORDS SUMMARY | 2024-07-02 18:51 | XMS_ITS | Encounter Summary ---
Author Organization [facility] Address [address] [place] [address] Care Team Providers Care Truss Maker Name Role Phone LonaPerla John BINDERY CUTTER OPERATOR Primary Care Provider [phone] Encounter Details Date Type Department Care Team (Late st Contact Info) Description 12/11/2022 Lab Requisition [facility] Pathology & Laboratory Medicine - [address] [address] Outr Resulting Lab, Provider Social History Tobacco [...] Procedure Name Priority Date/Time Associated Diagnosis Comments HEMOGLOBIN A1C Routine 12/11/2022 10:30 EST documented in this encounter Results * (ABNORMAL) HEMOGLOBIN A1C (12/11/2022 10:30 EST) Hemoglobin A1c 6.3(H) <5.7 % 12/11/2022 22:47 EST [facility] Comment: Glycemic Status References: Normal: ??<5.7% Pre-Diabetes: ??5.7% - 6.4% Diagnostic of Diabetes: ??> or = 6.5% (if confirmed) Est Avg Glucose 134 mg/dL 22:47 EST [facility] Comment:The eAG represents t he A1c result expressed as average glucose in mg/dL. Blood VENOUS BLOOD / Unknown 12/11/2022 10:30 EST 12/11/2022 21:26 EST Provider Outr Resulting Lab CHEMISTRY & BLOOD GAS ORDERABLES [facility] [address] [place] [address] documented in this encounter Visit Diagnoses Not on filedocumented in this encounter Care Teams Truss Maker Relationship Specialty Start Date End Date Perla Zamorano NP [address] [place] [address] PCP - General 04/26/22 documented as of this encounter
--- OUTSIDE RECORDS SUMMARY | 2024-07-02 18:51 | XMS_ITS | Encounter Summary ---
Author Organization [facility] Address [address] [place] [address] Care Team Providers Care Sheet Hanger Name Role Phone LonaPerla John BIRD RAISER Primary Care Provider [phone] Encounter Details Date Type Department Care Team (Late st Contact Info) Description 05/24/2023 Lab Requisition [facility] Pathology & Laboratory Medicine - [address] [address] Outr Resulting Lab, Provider Social History Tobacco [...] Procedure Name Priority Date/Time Associated Diagnosis Comments SYPHILIS SEROLOGY Routine 05/23/2023 12: 00 EDT HEPATITIS C AB W REFLEX TO HCV RNA BY PCR Routine 05/23/2023 12:00 EDT documented in this encounter Results * SYPHILIS SEROLOGY (05/23/2023 12:00 EDT) Syphilis Serology Negative Negative 05/27/2023 12:01 EDT [facility] Blood VENOUS BLOOD / Unknown 05/23/2023 12:00 EDT 05/24/2023 18:40 EDT Provider Outr Resulting Lab IMMUNOLOGY A ND SEROLOGY ORDERABLES Performing Organization Address [facility] Co de Phone Number [facility] [address] [place] [id number] * HEPATITIS C AB W REFLEX TO HCV RNA BY PCR (05/23/2023 12:00 EDT) Hep C Antibody Negative Negative 05/27/2023 11:12 EDT [facility] Blood VENOUS BLOOD / Unknown 05/23/2023 12:00 EDT 05/24/2023 18:40 EDT Provider Outr Resulting Lab CHEMISTRY & BLOOD GAS ORDERABLES Performing Organization Address [facility] Co de Phone Number [facility] [address] [place] [address] documented in this encounter Visit Diagnoses Not on filedocumented in this encounter Care Teams Sheet Hanger Relationship Specialty Start Date End Date Perla Zamorano, BIRD RAISER [address] [place] [address] PCP - General 04/26/22 documented as of this encounter
--- OUTSIDE RECORDS SUMMARY | 2024-07-02 18:51 | XMS_ITS | Encounter Summary ---
Author Organization [facility] Address [address] [place] [address] Care Team Providers Care Heel Sprayer First Name Role Phone JayantPerla tapia John SERVICE DELIVERY SUPERVISOR Primary Care Provider [phone] Reason for Visit * Reason Onset Date Comments Labs Only 03/26/2023 Encounter Details Date Type Department Care Team (Late st Contact Info) Description 03/26/2023 Telephone [facility] Urology - [facility] [address], [place] [id number] Juan Solitario MD [address] [facility], [address] [place] [address] Labs Only Social History Tobacco Use Types Packs/Day Years [...] * Telephone Encounter - Mary Lee - 03/26/2023 0850 EDT 03/26 - Checked with PCP office again to see if the labs had resulted. They didn't see any paper trail that pt had had CBC / CMP labs drawn at 03/20 PCP visit or 03/11 ED. But they said that if I faxed orders she could call to schedule blood draw there today. Spoke with pt to relay this update and see if she could have labs drawn today. Pt said she could doat [facility] and to call her back when orders had been faxed. Spoke with pt again to let her know faxed orders went through. Spoke with PCP again to let them know that labs would be drawn at [facility] instead. Spoke with [facility] and they confirmed they have her orders and that she can come any time. Spoke with pt to relay this update. 03/25 - Spoke with pt to ask if she had labs drawn. She said she'd had them drawn at her PCP's officelast week. Spoke with PCP office and they did not have labs on file, but thought they might be processing. PCP office is [facility], . documented in this encounter Plan of Treatment Not on file documented as of this encounter Visit Diagnoses Not on filedocumented in this encounter Care Teams Heel Sprayer First Relationship Specialty Start Date End Date Perla Zamorano, SERVICE DELIVERY SUPERVISOR [address] [place] [address] PCP - General 04/26/22 documented as of this encounter
--- OUTSIDE RECORDS SUMMARY | 2024-07-02 18:51 | XMS_ITS | Encounter Summary ---
Author Organization [facility] Address [address] [place] [address] Care Team Providers Care Store Loss Prevention Manager Name Role Phone oLnaPerla John BOBJ DEVELOPER Primary Care Provider [phone] Reason for Visit * Reason Onset Date Comments Coordination Of Care 02/14/2023 Encounter Details Date Type Department Care Team (Late st Contact Info) Description 02/14/2023 Telephone [facility] Urology - [address] [phone] Juan Soliatrio MD [address] [place] [address], [address] 5 [place] [address] Coordination Of Care Social History Tobacco Use [...] encounter Miscellaneous Notes * Telephone Encounter - Erin Dejesus - 02/14/2023 1126 EDT Patient stated that [facility] did not receive her MRI orders. Please return call to discuss. documented in this encounter Plan of Treatment Not on file documented as of this encounter Visit Diagnoses Not on filedocumented in this encounter Care Teams Store Loss Prevention Manager Relationship Specialty Start Date End Date Perla Zamorano NP [address] [place] [address] PCP - General 04/26/22 documented as of this encounter
--- OUTSIDE RECORDS SUMMARY | 2024-07-02 18:51 | XMS_ITS | Encounter Summary ---
Author Organization [facility] Address [address] [place] [address] Care Team Providers Care Geodetic Surveyor Technologist Name Role Phone LonaPerla John [facility] Primary Care Provider [phone] Reason for Visit * Reason Onset Date Comments Appointment Related 08/24/2022 Encounter Details Date Type Department Care Team (Late st Contact Info) Description 08/24/[address] [facility] Urology - [address] [phone] Juan Solitario MD [address] [facility], [address] [place] [address] Appointment Related Social History Tobacco Use Types Packs/Day Years [...] encounter Miscellaneous Notes * Telephone Encounter - Eduardo Smith MA - 08/24/2022 1610 EDT Left Message for patient, Reschedule Post op for 10/11/2022 at 11:[address] Solitario. EDUARDO SMITH MA 08/24/2022 16:11 documented in this encounter Plan of Treatment Not on file documented as of this encounter Visit Diagnoses Not on filedocumented in this encounter Care Teams Geodetic Surveyor Technologist Relationship Specialty Start Date End Date Perla Zamorano NP [address] [place] [address] PCP - General 04/26/22 documented as of this encounter
--- OUTSIDE RECORDS SUMMARY | 2024-07-02 18:52 | XMS_ITS | Encounter Summary ---
Author Organization [facility] Address [address] [place] [address] Care Team Providers Care Chucker Name Role Phone Emily Bejarano Lena AWAD Primary Care Provider [phone] Reason for Visit * Auth/Cert Specialty Diagnoses / Procedures Referred By Contac t Referred To Contact Diagnoses MATT II (cervical intraepithelial neoplasia II) Procedures NV CONIZATION CERVIX,LOOP ELECTRD Loop electrical excision procedure (LEEP) Referral ID Status Reason Start Date Expiration Date Visits Re quested Visits Authorized [id number] 1 1 Encounter Details Date Type Department Care Team (Late st Contact Info) Description 05/05/2020 14:57 EDT Anesthesia Event [facility] OR [address] [place], [place] [id number] Alexy Gold MD 111 [facility], [facility] 2 [place] [address] Anesthesia Record Procedure Summary Procedure Name Responsible Anesthesiologist Anesthesia Start Time Anesthesia Stop Time Loop electrical excision procedure (LEEP) (Vagina ) Alexy Gold MD 05/05/20 1457 05/05/20 1558 Events Date Time Event Comment 05/05/2020 1457 An Start The patient was re-evaluated immediately before moderate or deep sedation use, before anesthesia induction, or before the anesthesia procedure. 1459 An Start Data 1502 Anesthesia Ready 1544 Anil Pt transported to PACU w/ 6L O2 via mask. VSS 1551 an stop data 1558 Handoff to RN I completed my handoff to the receiving nurse during which we: 1. Identified the patient 2. Identified the responsible provider 3. Reviewed the pertinent medical history 4. Discussed the surgical course 5. Reviewed intra-op anesthesia management and issues during anesthesia 6. Set expectations for post-procedure period 7. Allowed opportunity for questions and acknowledgement of understanding. 1558 An Stop Meds Name Total lidocaine 2% (PF) injection glass vial 6 0 mg propOFol (DIPRIVAN) injection 130 mg propofol (DIPRIVAN) 500 mg in 50 mL infu kelli 708,912 mcg ketOROLAC injection 30 mg lactated ringers (LR) infusion 500 mL * Agents Name O2 N2O Air * Blood No blood administrations on file. Lines, Drains, and Airways Type Details Placement Removal Peripheral IV 05/05/20; 1324; 04/25 07/14; B Stearns Introcan; Right, Dorsal; Hand; Inserted by RN; 1; None; 3.15% Chlorhexidine with IPA; 05/05/20; 1630; Discharged, Per protocol; No complications, Catheter intact, Dressing applied 05/05/20 1324 by Mallory Steinberg RN 05/05/20 1630 by Johana Richardson RN Wound 05/05/20; 1537; Inci kelli; Other (Comment) (cervix); Loop electrical excision procedure ; N; 08/16/22 (resolved prior to this OR visit) 05/05/20 1537 by Stefany Galaviz RN 08/16/22 0000 by Kay Blackburn RN documented in this encounter Social History Tobacco Use Types Packs/Day Years Used Date Smoking Tobacco: Every Day Cigarettes Smokeless Tobacco: Never Comments:smoking 5- pack per day Alcohol Use Standard Drinks/Week Comments No 0 (1 standard drink = 0.6 oz pur e alcohol) Sex and Gender Information Value Date Recorded Sex Assigned at Female 05/03/2022 19:33 EDT Gender Identity Female 05/02/2020 15:51 EDT Sexual Orientation Straight 05/03/2022 19 :33 EDT COVID-19 Exposure Response Date Recorded In the last month, have you been in contact with someone who was confirmed or suspected to have Coronavirus / COVID-19? No / Unsure 05/05/2020 10:41 EDT documented as of this encounter Functional [...] OR Notes * Anesthesia Postprocedure Evaluation - Alexy Gold MD - 05/05/2020 3328 EDT Patient: Yesenia Fragoso Eliazar Pain Score - Numeric Pain Level (Scale 1-10): 6 Type of Anesthesia - MAC Anesthesia Post Evaluation Post-procedure vitals reviewed and are stable. Level of consciousness: awake Temperature status: normothermia and patient returned to pre-procedure baseline Respiratory status: airway patent and stable Cardiovascular status: stable Hydration status: adequate Nausea/Vomiting: none Pain management: adequate Post-Op Assessment: patient tolerated procedure well with no complications Patient participation: able to participate Disposition: outpatient/home Anesthesia Complications: No apparent anesthesia complications * Anesthesia Preprocedure Evaluation - Alexy Gold MD - 05/05/2020 1514 EDT Anesthesia Preprocedure Evaluation Patient Medical History, including Anesthesia History reviewed. Chart and Nursing Notes reviewed, including NPO status and Medication History. Additional ROS/History Findings: Allergies Allergen Reactions ??? Dilaudid [Hydromorphone] itching ??? Morphine Hives Review of Systems Constitutional: Negative for fever. Respiratory: Negative for cough and shortness of breath. Cardiovascular: Positive for leg swelling. Negative for chest pain. Gastrointestinal: Positive for heartburn. Negative for nausea and vomiting. Neurological: Negative for seizures. Past Medical History: Diagnosis Date ??? Anxiety ??? Arthritis 04/25/20 knees and spine ??? Asthma 05/01/2020, chronic cough, baseline ??? Depression stopped prozac 08/2011 when discovered ??? Diabetes mellitus affecting in first trimester 04/30/2018 ??? Diabetes mellitus, type 2 ([facility]) 04/25/20 managed with [id number] ??? Exercise involving walking 04/25/20 has 2 yr old ??? GERD (gastroesophageal reflux disease) 04/25/20 mint leaves help, herbal remidies ??? History of epidural anesthesia 04/25/20 Had rash during surgery and other on had worn off before done ??? Hypothyroidism affecting , antepartum 04/30/2018 ??? Migraines ??? Panic attacks 04/25/20 had with panic attack ??? TMJ syndrome 04/25/20 has popping in jaw all the time ??? Vertigo 04/25/20 gets when has migranes Relevant Problems PULMONARY (+) Asthma affecting , antepartum ENDO/GI (+) Hypothyroidism affecting , antepartum (+) Type 2 diabetes mellitus affecting in second trimester, antepartum (+) Type 2 diabetes mellitus, without long-term current use of insulin ([facility]) Physical Exam Airway Mallampati: II TM distance: >3 FB Neck ROM: full Cardiovascular Rhythm: regular Rate: normal Dental (+) implants Pulmonary - normal exam Abdominal Anesthesia Plan ASA 3 Anesthesia Type - MAC Anesthesia plan and risks discussed. Informed consent obtained from patient. Specific risks discussed were bleeding, headache, myocardial infarction, nerve damage, stroke, vomiting, post-op intubation, nausea and infection. Paper consent signed by the pt. PAT Note (Notes from 04/05/20 through 05/05/20) PAT Note by Tiffanie Hansen MD at 04/25/2020 11:38 Version 2 of 2 04/25/20 PAT call pt had positive screening for chronic cough and asthma. Pt had covid test 04/07/20 due to asthma symptons and cough was negative. Another covid ordered for prior to surgery , pt refusing to due unless its not oral. Had migraine for days after. Pt awaiting to hear where and when. ARVIND TRIANA 04/26/20 PAT Follow-up: Nasal swab testing is the only available COVID-19 test available at this time. We will proceed to surgery if patient is asymptomatic and lacks risk factors for exposure to COVID-19, ie: no contact with known or suspected positive patients. Given timeline since onset of symptoms (cough) and negative COVID-19 test from 04/07/20, patient is likely low-risk. Jade BURGOS PAT Note by Jessika Abreu RN at 04/25/2020 11:38 Version 1 of 2 04/25/20 PAT call pt had positive screening for chronic cough and asthma. Pt had covid test 04/07/20 due to asthma symptons and cough was negative. Another covid ordered for prior to surgery , pt refusing to due unless its not oral. Had migraine for days after. Pt awaiting to hear where and when. ARVIND TRIANA documented in this encounter Plan of Treatment Not on file documented as of this encounter Visit Diagnoses Not on filedocumented in this encounter Administered Medications Inactive Administered Medications - up to 3 most recent administrations Medication Order MAR Action Action Date Dose Rate Site ketOROLAC (TORADOL) injection PRN, Starting on Deysi 05/05/20 at 1548, Until Deysi 05/05/20 at 1558, Routine, Anesthesia Intraprocedure Given 05/05/2020 15:48 EDT 30 mg lactated ringers (LR) infusion at 25 mL/hr, intravenous, CONTINUOUS, Starting on Deysi 05/05/20 at 1200, Until Deysi 05/05/20 at 1848, Routine, Preprocedure Continued by Anesthesia 05/05/2020 14:42 EDT New Bag 05/05/2020 13:26 EDT 25 mL/hr IV lidocaine (PF) 20 mg/mL (2 %) injection PRN, Starting on Deysi 05/05/20 at 1502, Until Deysi 05/05/20 at 1558, Routine, Anesthesia Intraprocedure Given 05/05/2020 15:02 EDT 60 mg propofol (DIPRIVAN) 500 mg in 50 mL infusion FA IP EQF CONTINUOUS PRN FOR ONE STEP MEDS, Starting on Deysi 05/05/20 at 1503, Until Deysi 05/05/20 at 1558, Routine, Anesthesia Intraprocedure Rate Change 05/05/2020 15:26 EDT 80 mcg/kg/min 78.8 mL/hr Rate Change 05/05/2020 15:22 EDT 60 mcg/kg/min 59.1 mL/hr Rate Change 05/05/2020 15:13 EDT 100 mcg/kg/min 98.5 mL/hr propOFol (DIPRIVAN) injection PRN, Starting on Deysi 05/05/20 at 1505, Until Deysi 05/05/20 at 1558, Routine, Anesthesia Intraprocedure Given 05/05/2020 15:37 EDT 20 mg Given 05/05/2020 15:35 EDT 20 mg Given 05/05/2020 15:27 EDT 20 mg documented in this encounter Care Teams Chucker Relationship Specialty Start Date End Date Emily Bejarano APRN [address] [place] [address] PCP - General 04/30/18 04/25/22 documented as of this encounter
--- OUTSIDE RECORDS SUMMARY | 2024-07-02 18:52 | XMS_ITS | Encounter Summary ---
Author Organization [facility] Address [address] [place] [address] Care Team Providers Care Pitch Filler Name Role Phone Emily Bejarano Lena AWAD Primary Care Provider [phone] Reason for Visit * Reason Comments Social Work Encounter Details Date Type Department Care Team (Late st Contact Info) Description 02/02/2020 Community Health Team [facility] Women's Services - [address] [address] Ling Ballesteros Social History Tobacco Use Types Packs/Day Years Used Date Smoking Tobacco: Every Day Cigarettes Smokeless Tobacco: Never Comments:smoking 5 per day Alcohol Use Standard Drinks/Week Comments [...] Yes 12/01/2019 documented as of this encounter Progress Notes * Gmjuan Ling - 02/02/2020 0902 EDT SW met pt extremely briefly before her appt with Dr. Luli Dejesus today. Pt was referred for resource/transportation support. Pt rep however that her car is now fixed/fine and she doesn't need any support from SW. SW offered parking and cafeteria vouchers; pt declined. SW will ivan pt as graduated to close referral process. SW can be accessed by pt and team prn in the future. [facility] Total Time: 15 min total 5 min in person with pt 5 min care coord 5 min charting Referral: n/a Follow up: n/a Status: Graduated documented in this encounter Plan of Treatment Not on file documented as of this encounter Visit Diagnoses Not on filedocumented in this encounter Care Teams Pitch Filler Relationship Specialty Start Date End Date Emily Bejarano APRN [address] [place] [address] PCP - General 04/30/18 04/25/22 documented as of this encounter
--- OUTSIDE RECORDS SUMMARY | 2024-07-02 18:52 | XMS_ITS | Encounter Summary ---
Author Organization [facility] Address [address] [place] [address] Care Team Providers Care Head Waitress Name Role Phone Emily Bejarano APRN Primary Care Provider [phone] Perla Zamorano NP Primary Care Provider [phone] Encounter Details Date Type Department Care Team (Late st Contact Info) Description 01/10/2021 Lab Requisition [facility] Pathology & Laboratory Medicine - [facility] [address] [place] [address] Outr Resulting Lab, Provider Social History Tobacco Use Types Packs/Day Years Used Date Smoking Tobacco: Every Day Cigarettes Smokeless Tobacco: Never Comments:smoking 5- pack per day Alcohol Use Standard Drinks/Week Comments No 0 (1 standard drink = 0.6 oz pur e alcohol) PHQ-2 Answer Date Recorded PHQ-2 Score 3 [...] Yes 12/01/2019 documented as of this encounter Plan of Treatment Not on file documented as of this encounter Procedures Procedure Name Priority Date/Time Associated Diagnosis Comments HIV 1/2 ANTIGEN AND ANTIBODY, 4TH GENERATION Routine 01/09/2021 12:23 EST documented in this encounter Results * HIV 1/2 ANTIGEN AND ANTIBODY, 4TH GENERATION (01/09/2021 12:23 EST) HIV 1 and 2 Antibody/p24 Antigen, 4th Generation Negative Negative 01/11/2021 10:09 EST [facility] Comment: If acute HIV-1 infection is suspected in a high risk ??patient, submit plasma specimen for HIV-1 RNA quantitation test. Fourth Generation assay performed on the Siemens Centaur. Blood VENOUS BLOOD / Unknown 01/09/2021 12:23 EST 01/10/2021 15:48 EST Provider Outr Resulting Lab IMMUNOLOGY A ND SEROLOGY ORDERABLES Performing Organization Address City/State/[facility] Co de Phone Number [facility] [address] [place] [address] documented in this encounter Visit Diagnoses Not on filedocumented in this encounter Care Teams Head Waitress Relationship Specialty Start Date End Date Emily Bejarano APRN [address] [place] [place] [id number] PCP - General 04/30/18 04/25/22 Perla Zamorano NP [address] [place] [address] PCP - General 04/26/22 documented as of this encounter
--- OUTSIDE RECORDS SUMMARY | 2024-07-02 18:52 | XMS_ITS | Encounter Summary ---
Author Organization [facility] Address [address] [place] [address] Care Team Providers Care Client Service Representative Name Role Phone Reji Zamoranoi John RN FIELD CASE MANAGER Primary Care Provider [phone] Reason for Visit * Reason Onset Date Comments Pre-procedure 07/02/2022 Encounter Details Date Type Department Care Team (Late st Contact Info) Description 07/02/2022 Telephone [facility] Interventional Radiology - [facility] [address] [place] [address] Emanuel Gonzalez, RN [address] [place] [address] Pre-procedure Social History Tobacco Use Types Packs/Day Years [...] encounter Miscellaneous Notes * Telephone Encounter - Emanuel Gonzalez RN - 07/02/2022 8375 EDT Reviewed Interventional Radiology procedure prep per info sent via [employer]. All questions answered. documented in this encounter Plan of Treatment Not on file documented as of this encounter Visit Diagnoses Not on filedocumented in this encounter Care Teams Client Service Representative Relationship Specialty Start Date End Date Perla Zamorano NP [address] [place] [address] PCP - General 04/26/22 documented as of this encounter
--- OUTSIDE RECORDS SUMMARY | 2024-07-02 18:52 | XMS_ITS | Encounter Summary ---
Author Organization [facility] Address [address] [place] [address] Care Team Providers Care Audit Mgr Name Role Phone Emily Bejarano Lena AWAD Primary Care Provider [phone] Reason for Visit * Reason Onset Date Comments Surgery Scheduling 05/02/2020 Encounter Details Date Type Department Care Team (Late st Contact Info) Description 05/02/2020 Telephone [facility] Women's Services - [address] [phone] Luli Dejesus MD 111 [facility] [address] [place] [address] Surgery Scheduling Social History Tobacco Use Types Packs/Day Years [...] encounter Miscellaneous Notes * Telephone Encounter - Marychuy Mendez - 05/02/2020 0902 EDT Pt called phone room. Called pt who asked about the reorder for COVID testing. Told her Is aware of plan and we are proceeding without testing. Pt wants to know recovery time and if needing post-op appt. Informed her recovery will discussed when she comes in and she'll get call from nurses checking in on her post-operatively. Dr will order POV if needed. Pt in agreement. documented in this encounter Plan of Treatment Not on file documented as of this encounter Visit Diagnoses Not on filedocumented in this encounter Care Teams Audit Mgr Relationship Specialty Start Date End Date Emily Bejarano APRN [address] [place] [address] PCP - General 04/30/18 04/25/22 documented as of this encounter
--- OUTSIDE RECORDS SUMMARY | 2024-07-02 18:52 | XMS_ITS | Encounter Summary ---
Author Organization [facility] Address [address] [place] [address] Care Team Providers Care Habilitation Assistant Name Role Phone Emily Bejarano Lena AWAD Primary Care Provider [phone] Reason for Visit * Reason Onset Date Comments Appointment Related 03/29/2020 Encounter Details Date Type Department Care Team (Late st Contact Info) Description 03/29/2020 Telephone [facility] Women's Services - [address] [phone] Luli Dejesus MD [address] [facility], [facility] [address] [place] [address] Appointment Related Social History Tobacco [...] * Telephone Encounter - Marychuy Mendez - 04/01/2020 1621 EDT Unavailable. Unable to leave . * Telephone Encounter - Marychuy Mendez - 03/30/2020 1047 EDT LM asking pt to call back to schedule surgery for either tomorrow or sometime in near future. * Telephone Encounter - Marychuy Mendez - 03/29/2020 1632 EDT LM for pt to offer surgery date of 03/31. Asked to call back by 5p today or tomorrow by noon to let me know if she's available. documented in this encounter Plan of Treatment Not on file documented as of this encounter Visit Diagnoses Not on filedocumented in this encounter Care Teams Habilitation Assistant Relationship Specialty Start Date End Date Emily Bejarano APRN [address] [place] [address] PCP - General 04/30/18 04/25/22 documented as of this encounter
--- OUTSIDE RECORDS SUMMARY | 2024-07-02 18:52 | XMS_ITS | Encounter Summary ---
Author Organization [facility] Address [address] [place] [address] Care Team Providers Care Forestry Workers Name Role Phone Emily Bejarano Lena AWAD Primary Care Provider [phone] Encounter Details Date Type Department Care Team (Latest Contact Info) Description 02/02/2020 Travel Social History Tobacco Use Types Packs/Day Years [...] on filedocumented in this encounter Care Teams Forestry Workers Relationship Specialty Start Date End Date Emily Bejarano APRN [address] [place] [address] PCP - General 04/30/18 04/25/22 documented as of this encounter
--- OUTSIDE RECORDS SUMMARY | 2024-07-02 18:52 | XMS_ITS | Encounter Summary ---
Author Organization [facility] Address [address] [place] [address] Care Team Providers Care Hand Inspector Name Role Phone Emily Bejarano Lena AWAD Primary Care Provider [phone] Reason for Visit * Reason Onset Date Comments Surgery Scheduling 04/19/2020 Encounter Details Date Type Department Care Team (Late st Contact Info) Description 04/19/[address] [facility] Women's Services - [address] [phone] Luli Dejesus MD [address] [facility], [facility] [address] [place] [address] Surgery Scheduling Social History Tobacco [...] * Telephone Encounter - Marychuy Mendez - 04/19/2020 1004 EDT Called pt to offer surgery date of 05/04 or 05/05 to allow more leeway to arrange childcare and transportation. Pt wants 05/05. Informed her COVID testing to be done 72-96 hours prior. Pt states alreadyhad test done. Explained we need to ensure she self-quarantines after and will be needing to have test done again. Pt states she had 'migraines for 2 or 3 days after and won't do it again'. She stated that she 'just won't come in'. Told her I'll ask if there is an alternative way to collect swab (I.e. Via throat) and get back to her. Pt in agreement. documented in this encounter Plan of Treatment Not on file documented as of this encounter Visit Diagnoses Not on filedocumented in this encounter Care Teams Hand Inspector Relationship Specialty Start Date End Date Emily Bejarano APRN [address] [place] [address] PCP - General 04/30/18 04/25/22 documented as of this encounter
--- OUTSIDE RECORDS SUMMARY | 2024-07-02 18:52 | XMS_ITS | Encounter Summary ---
Author Organization [facility] Address [address] [place] [address] Care Team Providers Care Internal Control Consultant Name Role Phone LonaPerla John OFFICE SYSTEMS TECHNOLOGY INSTRUCTOR Primary Care Provider [phone] Reason for Visit * Reason Onset Date Comments Appointment Related 06/20/2022 Encounter Details Date Type Department Care Team (Late st Contact Info) Description 06/20/2022 Telephone [facility] Interventional Radiology - [address] [id number] Danny Fox MD [address] [facility] Level [address] [place] [address] Appointment Related Social History Tobacco [...] encounter Miscellaneous Notes * Telephone Encounter - Dayanara Lind - 06/20/2022 1136 EDT Spoke with Yesenia in regards to scheduling their outpatient US biopsy with interventional radiology at [facility]. Patient will be coming in on 07/05 @ 1200, checking in at 1145am at [facility]. The following details were reviewed with patient to ensure procedure completed on scheduled date: -Patient understands that they will need a bulk driver for this procedure. -Patient understands that they should plan to be here for 4-5 hours that day in total for prep, procedure and recovery. Pre procedure instructions: Covid 19 Policy: As of May 29 2022, Pre- procedure Covid -19 testing is no longer required. Please call our officeif you become sick or experience any Covid-19 symptoms prior to this appointment. Symptoms include fever, cough, sore throat, loss of taste or smell or difficulty breathing. You will also be screenedfor symptoms on the day of the procedure upon arrival to the hospital. Medication instruction: - RN to contact with detailed pre procedure medication instructions - They will take their morning medications with a small sip of water. - Per Triaged RN letter patient confirmed that they are not taking blood thinning medications at this time -Patient verbalized understanding of OTC pain medication policy DAY OF PROCEDURE PREP: Patient confirmed understanding of the following instructions: -No solid food or liquids containing fats, including milk after midnight before the procedure. -On the day of procedure, only water, apple juice or sports drinks (gatorade or powerade) until 2 hours before the check in time (starting at 10:00) After 10:00 AM, nothing by mouth. Please be sure to take a shower either the evening before or the morning of your procedure. You may take your medications as directed at any time with small sips of water. Do not bring any valuables with you to the hospital. If you use a BiPAP or CPAP machine to help you breathe, please bring it with you on the day of the procedure. Please bring a list of your allergies and current medications. Please notify our office if there is any change in your health such as a cold or a fever. Patient aware IR RN will contact prior to procedure to go over prep in detail and answer any questions. I have sent patient confirmation via Naiku. I have notified PCP office via phone of this patientsscheduled date and time. Any further questions can be addressed to Interventional Radiology Department [phone] Ext. 1 Patient verbalized understanding and agrees with Plan of Care. No cognitive barriers were identified during this conversation & they have our contact number to call with questions. Dayanara Lind documented in this encounter Plan of Treatment Not on file documented as of this encounter Visit Diagnoses Not on filedocumented in this encounter Care Teams Internal Control Consultant Relationship Specialty Start Date End Date Perla Zamorano NP [address] [place] [address] PCP - General 04/26/22 documented as of this encounter
--- OUTSIDE RECORDS SUMMARY | 2024-07-02 18:52 | XMS_ITS | Encounter Summary ---
Author Organization [facility] Address [address] [place] [address] Care Team Providers Care Microphone Boom Operator Name Role Phone Darci Lena AWAD Primary Care Provider Perla Zamorano NP Primary Care Provider [phone] Encounter Details Date Type Department Care Team (Late st Contact Info) Description 04/07/2020 Lab Requisition [facility] Pathology & Laboratory Medicine - [facility] [address] [place] [address] Outr Resulting Lab, Provider Social History Tobacco [...] Procedure Name Priority Date/Time Associated Diagnosis Comments DO NOT ORDER STANDALONE - BROAD COVID TEST Today 04/07/2020 13:39 EDT COVID-19 TESTING Routine 04/07/2020 13:3 9 EDT documented in this encounter Results * DO NOT ORDER STANDALONE - BROAD COVID TEST (04/07/2020 13:39 EDT) COVID-19 rt-PCR Result NEGATIVE Negative 04/08/2020 11:40 EDT [facility] Comment: 2019-novel Coronavirus (2019-nCoV) not detected by the qRT-PCR assay. Consider testing for other respiratory viruses or re-collecting for 2019-nCoV testing. Note: Optimum timing for peak viral levels during infections caused by 2019-nCoV have not been determined. Collection of multiple specimens from the same patient may be necessary to detect the virus. Limitations Positive results are indicative of active infection with SARS-CoV-2 but do not rule out bacterial infection or co-infection with other viruses. The agent detected may not be the definite cause of disease. In addition, detection of viral RNA may not indicate the presence of infectious virus or that SARS-CoV-2 is the causative agent for clinical symptoms. Negative results do not preclude SARS-CoV-2 infection and should not be used as the sole basis for patient management decisions. Negative results must be combined with clinical observations, patient history, and epidemiological information. False negative results may also occur if amplification inhibitors are present in the specimen or if inadequate numbers of organisms are present in the specimen. Optimum specimen types and timing for peak viral levels during infections caused by SARS-CoV-2 have not been fully determined. Collection of multiple specimens (types and time points) from the same patient may be necessary to detect the virus. The test was validated for use with upper respiratory specimens obtained via nasopharyngeal or oropharyngeal swabs in VTM, UTM, M4, M5, M6, saline, and MTM media. The performance of this test has not been established for other specimens. Specimens collected using other FDA recommended Specimen Collection Materials listed in the FDA COVID-19 [employer] communication (February 18, 2020) are processed with the caveat that they were not all validated for use with this test and the result must be interpreted in this context. Furthermore, a false negative results may occur if a specimen is improperly collected, transported or handled. If the virus mutates in the RT-PCR target region, SARS-CoV-2 may not be detected or may be detected less predictably. Inhibitors or other types of interference may produce a false negative result. An interference study evaluating the effect of common cold medications was not performed. This test is not FDA-cleared but its performance characteristics were established by our CLIA-certified, CAP-accredited, high complexity laboratory in accordance with CLIA regulations, [employer] [place] [employer] (CAP) guidelines (Feb 11, 2020), and FDA guidance (Jan 23, 2020). This test is only for use under the Food and Drug Administration's Emergency Use Authorization. Swab ENTIRE NASOPHARYNX / Unknown 04/07/2020 13:39 EDT 04/07/2020 21:36 EDT Provider Outr Resulting Lab MICROBIOLOGY - GENERAL ORDERABLES [facility] [place] [place] * COVID-19 TESTING (04/07/2020 13:39 EDT) COVID-19 rt-PCR Result NEGATIVE Negative 04/08/2020 15:28 EDT [facility] Comment: 2019-novel Coronavirus (2019-nCoV) not detected by the qRT-PCR assay. Consider testing for other respiratory viruses or re-collecting for 2019-nCoV testing. Note: Optimum timing for peak viral levels during infections caused by 2019-nCoV have not been determined. Collection of multiple specimens from the same patient may be necessary to detect the virus. Limitations Positive results are indicative of active infection with SARS-CoV-2 but do not rule out bacterial infection or co-infection with other viruses. The agent detected may not be the definite cause of disease. In addition, detection of viral RNA may not indicate the presence of infectious virus or that SARS-CoV-2 is the causative agent for clinical symptoms. Negative results do not preclude SARS-CoV-2 infection and should not be used as the sole basis for patient management decisions. Negative results must be combined with clinical observations, patient history, and epidemiological information. False negative results may also occur if amplification inhibitors are present in the specimen or if inadequate numbers of organisms are present in the specimen. Optimum specimen types and timing for peak viral levels during infections caused by SARS-CoV-2 have not been fully determined. Collection of multiple specimens (types and time points) from the same patient may be necessary to detect the virus. The test was validated for use with upper respiratory specimens obtained via nasopharyngeal or oropharyngeal swabs in VTM, UTM, M4, M5, M6, saline, and MTM media. The performance of this test has not been established for other specimens. Specimens collected using other FDA recommended Specimen Collection Materials listed in the FDA COVID-19 [employer] communication (February 18, 2020) are processed with the caveat that they were not all validated for use with this test and the result must be interpreted in this context. Furthermore, a false negative results may occur if a specimen is improperly collected, transported or handled. If the virus mutates in the RT-PCR target region, SARS-CoV-2 may not be detected or may be detected less predictably. Inhibitors or other types of interference may produce a false negative result. An interference study evaluating the effect of common cold medications was not performed. This test is not FDA-cleared but its performance characteristics were established by our CLIA-certified, CAP-accredited, high complexity laboratory in accordance with CLIA regulations, [employer] [place] [employer] (CAP) guidelines (Feb 11, 2020), and FDA guidance (Jan 23, 2020). This test is only for use under the Food and Drug Administration's Emergency Use Authorization. Performing Lab [facility] 04/08/2020 15:28 EDT [facility] Swab ENTIRE NASOPHARYNX / Unknown 04/07/2020 13:39 EDT 04/07/2020 21:36 EDT Provider Outr Resulting Lab MICROBIOLOGY - GENERAL ORDERABLES [facility] [address] [place] [address] [facility] [place] documented in this encounter Visit Diagnoses Not on filedocumented in this encounter Care Teams Microphone Boom Operator Relationship Specialty Start Date End Date Emily Bejarano APRN [address] [place] [address] PCP - General 04/30/18 04/25/22 Perla Zamorano NP [address] [place] [address] PCP - General 04/26/22 documented as of this encounter
--- OUTSIDE RECORDS SUMMARY | 2024-07-02 18:52 | XMS_ITS | Encounter Summary ---
Author Organization [facility] Address [address] [place] [address] Care Team Providers Care Induction Brazer Name Role Phone Perla Zamorano METAL GRADER Primary Care Provider [phone] Reason for Referral * Radiology Services (Routine/Next Available) - Authorization Not Required Specialty Diagnoses / Procedures Referred By Contac t Referred To Contact Diagnoses Subcutaneous mass of back Procedures IR BIOPSY Perla Zamorano, METAL GRADER [address] [place] [address] [facility] Referral ID Status Reason Start Date Expiration Date Visits Requested Visits Authorized [id number] Authorization Not Required 06/13/2022 1 1 Reason for Visit * Radiology Services (Routine/Next Available) - Authorization Not Required Specialty Diagnoses / Procedures Referred By Luiza t Referred To Contact Diagnoses Subcutaneous mass of back Procedures IR BIOPSY Perla Zamorano, METAL GRADER [address] [place] [address] [facility] Referral ID Status Reason Start Date Expiration Date Visits Requested Visits Authorized [id number] Authorization Not Required 06/13/2022 1 1 Encounter Details Date Type Department Care Team (Late st Contact Info) Description 07/20/2022 6:22 EDT - 07/20/2022 23:59 EDT Hospital Encounter [facility] Interventional Radiology Unit [address] [place] [address] Aleksander Bennett MD [address] [place] [address], [place], [address] [place] [id number] Subcutaneous mass of back Discharge Disposition: Home or Self Care Social [...] Sign Reading Time Taken Comments Blood Pressure 103/61 07/20/2022 1000 EDT Pulse - - Temperature 36.4 ??C (97.5 ??F) 07/20/2022 0951 EDT Respiratory Rate 16 07/20/2022 1000 EDT Oxygen Saturation 94% 07/20/2022 1000 EDT Inhaled Oxygen Concentration - - Weight 155.6 kg (343 lb) 07/20/2022 0714 EDT Height 180.3 cm (5' 11) 07/20/2022 0714 EDT Body Mass Index 47.84 07/20/2022 0714 EDT documented in this encounter Functional Status [...] Yes 12/01/2019 documented as of this encounter Discharge Instructions * Discharge Instructions* Carlita Flowers RN - 07/20/2022 8:12 EDT Interventional Radiology Biopsy Discharge Instructions Date of biopsy: 07/20/2022 Provider: Aleksander Bennett MD Biopsy site: The results of your procedure will go to the provider who ordered the procedure. It may take 5-7 days for biopsy results to come back. Aftercare After sedation: If you have received sedation or pain medication during your procedure, DO NOT DRIVE or make legal decisions today. Activity: Rest today. Do not lift anything over 10 lbs. You may resume normal activity tomorrow. Diet: You may resume your usual diet. Avoid alcohol for 24 hours. Medications: You may resume your usual medications. You may take tylenol (acetaminophen) for any discomfort you may have. Do not take any blood thinning medication for {When to take blood thinning meds:94270} after your procedure. (examples: Asprin, ibuprofen/NSAIDS, fish oil, Lovenox, Plavix, Xarelto, Arixtra, Pradaxa, Warfarin, etc). ?? Call your doctor immediately or go to the nearest Emergency Room if you develop any of the following - Fast heart rate Severe back, stomach, chest, or shoulder pain Severe anxiety, dizziness, or sweating Skin color change Heavy bleeding or swelling at the biopsy site If you feel short of breath Bloody urine Decreased urine output ?? Check the dressing or Band-Aid throughout the day. If you notice bleeding, hold pressure for 10 minutes and slowly release the pressure to see if the bleeding has stopped. If the bleeding does notstop, go to your Physician or the nearest Emergency Room. ?? Remove your dressing tomorrow. Gently wash your wound site with soap and water. You may then leave the biopsy site open to air. ?? Do not take a tub bath, swim, or go in a hot tub until the wound site has completely healed. ?? IF YOU HAVE ANY QUESTIONS OR CONCERNS OR IF YOU HAVE DEVELOPED ANY OF THE SYMPTOMS ABOVE, PLEASECALL THE INTERVENTIONAL RADIOLOGY CLINIC AT , OPTION 2 TO REACH THE NURSE TRIAGE LINE. THERE WILL BE ASSISTANCE AVAILABLE 24 HOURS A DAY. IF YOU CALL AFTER HOURS YOU WILL BE CONNECTED WITH AN ON-CALL PHYSICIAN BY PRESSING 1. documented in this encounter Medications at Time [...] prior to procedure. 2 Tablet 04/16/2022 08/17/2022 HYDROmorphone (DILAUDID) 2 mg tablet Take by mouth every 4 hours as needed. 08/09/2022 oxyCODONE (ROXICODONE) 5 mg immediate release tablet Take 1 Tablet by mouth every 8 hours as needed for up to 3 days for Pain. Daily Max: 15 mg 8 Tablet 08/17/2022 08/20/2022 documented as of this encounter Discharge Disposition Disposition Code Departure Means Destination Home or Self Care documented in this encounter Progress Notes * Mio Marrufo RN - 07/20/[address] Bennett at bedside. States patient can be d/c at this time. Pt refusing further vital checks. Nosigns of distress. Sitting up at bedside eating sandwich. Friend at bedside. Will d/c via wheelchair at 1115 when family is out front for ride. Verbalized understanding of d/c instructions * Carlita Flowers RN - 07/20/2022 0700 EDT Procedure: Back mass biopsy Patient received from CVU to IR 23 at 0850. Patient name and verified using armband and verbally. Consent completed and verified. Patient is alert and oriented x 4, able to follow commands with all extremities, able to make needs known. Patient complains of teeth pain. Patient's allergies, medications, lab results, and eligibility for IV moderate sedation reviewed. The patient is eligible forIV moderate sedation, IV site checked for patency. Patient educated on procedure and sedation side effects explained, patient verbalized understanding. Patient in prone position on table, safety straps in place. VS assessed. Time out completed with all staff in room prior to the start of procedure (SBK, TWP, BJB, and Dr. Bennett). Sterile prep of the back with duraprep by TWP in the usual sterile fashion in compliance with manufacturers recommendation. Ultrasound guidance utilized to access back mass. Cytology at the bedside, samples collected, samples confirmed by cytology and sent to the lab. Puncture site dressed with a bandaid, dressing is clean/dry/intact. Procedure completed by Dr. Bennett. Procedure well tolerated by patient, vital signs stable. Medication administration IV Versed 1.5 mg IV Fentanyl 150 mcg Follow up: Please release sign & held post procedure orders. Discharge instructions placed in the patient's chart. Report given to CVU RN. Discharge instructions to be reviewed with the patient by the discharging RN. Patient transferred in stable condition. * Janene Fuller RN - 07/20/2022 0700 EDT Have you had any of the following symptoms? Fever YES/NO: No Cough/Chest congestion/Difficulty breathing YES/NO: No Sore throat or loss of taste / smell?YES/NO: No Chills YES/NO: No Joint Pain or weakness YES/NO: No Vomiting, abdominal pain, diarrhea (more common in children) YES/NO: No Severe headache YES/NO: No New loss of taste or smell YES/NO: No Have you had known exposure or close contact with someone who has been diagnosed with Covid 19? (close contact, unmasked, within 6 feet of any person known to have Coronavirus in the past 14 days) YES/NO: No Were you Covid tested? YES/NO: No When / Results: VACCINATION STATUS: yes Friend Frederic at bedside. Has received patient's phone until she gets out of procedure, she states. See admission vital signs assessment for temperature. * Janene Fuller RN - 07/20/2022 0700 EDT 1020 Patient has removed monitoring saying it is bothering her. Counseled re need for monitoring . Requesting Tylenol for headache and more food also being given as requested. FriendFrederic, at bedside. documented in this encounter H&P Notes * Peter Davidson PA-C - 07/20/2022 0700 EDT Sedation for Procedure History & Physical Date: 07/20/2022 Time: 8:09 Location: IR Planned Procedure: subcutaneous nodule biopsy Chief Complaint/Indications for Procedure: nodule History: Previous Complication with Sedation and/or Anesthesia? No Allergies: Allergies Allergen Reactions ??? Dilaudid [Hydromorphone] itching ??? Morphine Hives Current Medications: (Not in a hospital admission) Past Medical History: Past Medical History: Diagnosis Date ??? Anxiety ??? Arthritis 04/25/20 knees and spine ??? Asthma 05/01/2020, chronic cough, baseline ??? Depression stopped prozac 08/2011 when discovered ??? Diabetes mellitus affecting in first trimester 04/30/2018 ??? Diabetes mellitus, type 2 (HCC) 04/25/20 managed with [id number] -230's ??? Exercise involving walking 04/25/20 has [...] ??? Vertigo 04/25/20 gets when has migranes Social History: Past Surgical History: Procedure Laterality Date ??? SECTION 2009,2018 uvm and [facility]ly ??? COSMETIC SURGERY 4 yr old to face and forhead Social History Tobacco Use ??? Smoking status: Current Every Day Smoker Packs/day: 0.50 ??? Smokeless tobacco: Never Used ??? Tobacco comment: smoking 5- pack per day Substance Use Topics ??? Alcohol use: No Family History: Family History Problem Relation Age of Onset ??? Cancer Mother ??? Heart Disease Father ??? Substance Abuse Father ??? Miscarriages / Stillbirths Paternal Grandmother Review of Systems as pertinent: Physical: Vital Signs: BP 129/81 (BP Cuff Location: Right arm, BP Patient Position: Semi fowlers) Temp 35.9??C (96.6 ??F) (Temporal) Resp 18 Ht 180.3 cm (71) Wt (!) 155.6 kg (343 lb) SpO2 97% BMI47.84 kg/m?? Heart Examination: Cardiac Regularity: Regular Respiratory Examination: Respiratory Pattern: Regular Breath Sounds Right: Clear, Diminished Breath Sounds Left: Diminished, Clear Additional physical exam related to the proposed procedure, patient activity, disease state and treatment as pertinent: Assessment: Previous complications with sedation or anesthesia?: No Airway Concerns: Asthma, Sleep Apnea Anesthesia Classification: ASA 3 Plan: nodule biopsy Fasting Time: Time of last liquid intake: 0600 Date of Last Liquid Intake: 07/20/22 Time of last solid intake: 2229 Date of last solid intake: 07/19/22 Patient Appropriate Candidate for Planned Sedation?: Yes Peter Davidson PA-C 07/20/2022 8:09 documented in this encounter Procedure Notes * Aleksander Bennett MD - 07/20/2022 0700 EDT INTERVENTIONAL RADIOLOGY BRIEF PROCEDURE NOTE Radiologist: Sabrina Procedure(s) Performed: U/S guided soft tissue biopsy Indication/Pre-procedure diagnosis: Mass Post-procedure diagnosis: Same Condition: Stable Anesthesia: Local with Sedation Approach: Posterior paraspinal Medications: IV Versed and fentanyl and local lidocaine 1% Contrast: 0 cc Fluoro time: 0 min EBL: Minimal Specimens: 25g FNA and 18g cores Findings: No bleeding. A time-out was completed prior to procedure verifying correct patient, procedure, site, positioning, and special equipment if applicable. Complications: None Recommendations: Per orders. Please refer to final dictated report (Chart Review, Imaging tab in PRISM) for complete findings and recommendations. Carlos Bennett MD Interventional Radiologist Pager #[phone] documented in this encounter Plan of Treatment Not on file documented as of this encounter Procedures Procedure Name Priority Date/Time Associated Diagnosis Comments IR BIOPSY Routine 07/20/2022 9:48 EDT Subcutaneous mass of back LEUKEMIA/LYMPHOMA PANEL BY FLOW CYTOMETRY Routine 07/20/2022 9:45 EDT Subcutaneous mass of back NON OUTSOLE MOLDER/FNA CYTOLOGY Routine 07/20/2022 9:44 EDT Subcutaneous mass of back SURGICAL PATHOLOGY Routine 07/20/2022 9: 44 EDT Subcutaneous mass of back PLATELET COUNT STAT 07/20/2022 7:49 EDT POCT GLUCOSE, INTERFACED Routine 07/20/2022 7:44 EDT documented in this encounter Results * IR BIOPSY (07/20/2022 9:48 EDT) Anatomical Region Laterality Modality X-Ray Angiograph y 07/20/2022 14:5 1 EDT Impressions 07/20/2022 14:51 EDT 1. Technically successful ultrasound-guided paraspinal mass biopsy. Narrative 07/20/2022 14:51 EDT Ultrasound guided soft tissue biopsy HISTORY: Mass in the paraspinal subcutaneous tissues posterior to T11. TECHNIQUE: Informed consent was obtained after the risks and benefits of the procedure were discussed with the patient. The specific risks of this procedure which were discussed include but were not limited to bleeding, infection, and injury to adjacent structures. A procedural time out was performed prior to the procedure, where the procedure, site, and patient identification was confirmed by all healthcare providers present in the room. Moderate sedation was provided with intravenous Versed and fentanyl while continuously monitoring the patient's blood pressure, heart rate, respiratory rate, and pulse oxygenation. The patient's back was sterilely prepped and draped. Lidocaine 1% was administered to anesthetize the skin and soft tissues. Ultrasound revealed a hypoechoic mass in the subcutaneous fat of the back, corresponding with the abnormality seen on recent MRI. Under real-time ultrasound guidance, a 17-gauge coaxial needle was inserted into the mass. A recording of the ultrasound was placed in the patient's permanent medical record. Through the coaxial needle, multiple 25-gauge fine-needle aspirate biopsies were obtained. Pathology reviewed the samples and requested core needle biopsy. Multiple 18-gauge core needle biopsies were then obtained. The coaxial needle was removed, and immediate postprocedure ultrasound revealed no apparent complication. A dressing was applied. Procedure Note Scriver, Aleksander Hall MD - 07/20/2022 Ultrasound guided soft tissue biopsy HISTORY: Mass in the paraspinal subcutaneous tissues posterior to T11. TECHNIQUE: Informed consent was obtained after the risks and benefits ofthe procedure were discussed with the patient. The specific risks of thisprocedure which were discussed include but were not limited to bleeding,infection, and injury to adjacent structures. A procedural time out wasperformed prior to the procedure, where the procedure, site, and patientidentification was confirmed by all healthcare providers present in [facility]. Moderate sedation was provided with intravenous Versed and fentanylwhile continuously monitoring the patient's blood pressure, heart rate,respiratory rate, and pulse oxygenation. The patient's back was sterilely prepped and draped. Lidocaine 1% wasadministered to anesthetize the skin and soft tissues. Ultrasound revealeda hypoechoic mass in the subcutaneous fat of the back, corresponding withthe abnormality seen on recent MRI. Under real-time ultrasound guidance, [id number] coaxial needle was inserted into the mass. A recording of theultrasound was placed in the patient's permanent medical record. Throughthe coaxial needle, multiple 25-gauge fine-needle aspirate biopsies wereobtained. Pathology reviewed the samples and requested core needle biopsy.Multiple 18-gauge core needle biopsies were then obtained. The coaxialneedle was removed, and immediate postprocedure ultrasound revealed noapparent complication. A dressing was applied. IMPRESSION 1. Technically successful ultrasound-guided paraspinal mass biopsy. Perla Zamorano NP [facility] [place] * LEUKEMIA/LYMPHOMA PANEL BY FLOW CYTOMETRY (07/20/2022 9:45 EDT) Final Immunophenotypic Interpretation Lymph node,paraspinal region, flow cytometric analysis: - No immunophenotypic evidence of a clonal cell population. See comment. 2 8:14 [facility] Comment The cytospin consists of predominantly small mature lymphocytes without atypia. The results of flow cytometry show no immunophenotypic evidence of involvement by a clonal lymphoproliferative disorder. The concurrent surgical pathology reprot is pending (see [id number]).. 2 8:14 [facility] Attestation There was significant resident/fellow involvement in the diagnostic evaluation of this case. By the signature below, the attending physician certifies that they have personally conducted a gross and/or microscopic examination of the described specimens and rendered or confirmed the above diagnosis. 2 8:14 [facility] at 0814 Clinical History 41 yo female with paraspinal SQ mass 1.9 cm 2 8:14 [facility] Description Morphology of a cytospin slide prepared from the sample has been reviewed. The specimen consists of lymph node tissue from which a single cell suspension is prepared after ammonium chloride lysis. Gating is performed using CD45 fluorescence and side scatter. Cellular viability (assessed by 7-AAD exclusion) is excellent, (100%) among lymphocytes and CD45 positive events. Scatter plots incorporating all of the markers have been interpreted and evaluated for the presence or absence of abnormal cell populations. Only pertinent abnormal findings are included. If not otherwise addressed all other markers were normal/negative. A majority of the lymphoid cells are T-lymphocytes (CD3+CD5+) with CD4+ and CD8+ subsets represented. The remaining lymphocytes are B-lymphocytes (CD19+CD20+). Markers for NK cells are not performed (CD16+CD56+). Among the B-cells, both kappa+ and lambda+ subsets are represented. 2 8:14 [facility] Flow Markers CD10, CD19, CD20, CD3, CD4, CD45, CD5, CD8, Paxton, and Lambda 2 8:14 [facility] FDA Disclaimer This test was developed and its performance characteristics determined by the Department of Pathology and Laboratory Medicine, [place], [place]. It has not been cleared or approved by the U.S. Food and Drug Administration. FDA does not require this test to go through premarket FDA review. This test is used for clinical purposes. It should not be regarded as investigational or for research. This laboratory is certified under the Clinical Laboratory Improvement Amendments (CLIA) as qualified to perform high complexity clinical laboratory testing. 2 8:14 [facility] Resident/Fellow: Rafael Aguilar MD 2 8:14 [facility] Sample Analyzed Date and Time 07/20/22 13:25 2 8:14 [facility] Scanned Images 2 8:14 [facility] Fine Needle Aspirate ENTIRE LYMPH NODE / Unknown 07/20/2022 9:45 EDT 07/20/2022 10:43 EDT Aleksander Bennett MD PATHOLOGY OR DERABLES [facility] [address] [place] [address] * SURGICAL PATHOLOGY (07/20/2022 9:44 EDT) Note to Patient The following pathology results have been interpreted by your pathologist and may be available to you before your health provider has had the opportunity to review them. Please allow time for your provider to receive these results and explore management options, if applicable. 07/27/2022 17:04 [facility] Final Diagnosis A. SOFT TISSUE, PARASPINAL, SUBCUTANEOUS MASS, NEEDLE BIOPSY: - Atypical lymphoplasmacytic infiltrate. See comment. 07/27/2022 17:04 [facility] Diagnosis Comment The specimen shows a lymphoplasmacytic infiltrate involving subcutaneous tissue. The infiltrating cells are primarily small with occasional larger forms and few aggregates of plasma cells. Immunohistochemistry demonstrates a majority of the infiltrating lymphocytes to be T-cells with an appropriate ratio of CD4:CD8 subsets. There is an abnormal increase in the number of PD-1+ and BCL-6+ cells scattered throughout the infiltrate. B-cells are present without aberrant expression of antigens, plasma cells demonstrate polytypic light chain populations, and scattered histiocytes are also present. Proliferation rate throughout the infiltrate is low (<20%). Flow cytometric analysis ([id number]) did not show evidence of a clonal cell population. Taken together, the findings, while atypical, are nonspecific and the the possibility of involvement by a lymphoproliferative disorder cannot be excluded. However, a reactive or infectious process remains in the differential diagnosis. An excisional biopsy with submission of tissue for flow cytometry is recommended if clinically indicated. Please see concurrent cytopathology report ([id number]) for additional diagnostic information. Correlation with clinical impression is essential. Dr. Garay and Dr. Copeland have reviewed the case in consultation. 07/27/2022 17:04 [facility] Attestation By the signature below, the attending physician certifies that they have 1) personally conducted a gross and/or microscopic examination of the described specimen(s), and/or personally interpreted the results of laboratory testing of the described specimen(s), and 2) personally rendered or confirmed the above diagnosis. 07/27/2022 17:04 [facility] at 1704 Microscopic Description Immunoperoxidase stains were performed on this case to further characterize the lesion. ANTIBODY(CLONE)(BLOCK ):RESULT Keratin AE1-AE3 (AE1-AE3, [employer]) (A1): Negative CD3 (SP7, [employer]) (A1): Highlights T-lymphocytes CD4 (4B12, [employer]) (A1): Highlights majority of T-lymphocytes; appropriate CD4:CD8 ratio CD8 (4B11, [employer]) (A1): Highlights minority of T-lymphocytes; appropriate CD4:CD8 ratio PAX-5 (1EW, [employer]) (A1): Highlights B-lymphocytes CD10 (SP67, [employer]) (A1): Difficult to interpret due to high background staining/non-specific staining BCL-6 (G/191E/A8, [employer]) (A1): Positive in scattered lymphocytes CD30 (Gerardo-H2, [employer]) (A1): Highlights rare immunoblasts CD43 (MT1, [employer]) (A1): Highlights T-lymphocytes CD21 (2G9, [employer]) (A1): Highlights scattered follicular dendritic networks PD-1 (NMZ641, Cell [employer]) (A1): Positive in scattered lymphocytes CD138 (M115, [employer]) (A1): Highlights aggregates and scattered plasma cells Paxton (L1C1, [employer]) (A1): Highlights a subset of plasma cells; appropriate kappa:lambda ratio Lambda (N10/2, [employer]) (A1): Highlights a subset of plasma cells; appropriate kappa:lambda ratio IgG4 (XE0188, [employer]) (A1): Highlights small percentage of plasma cells BRITNI ASHLEY ([id number], [employer]) (A1): Negative Ki67 (MIB-1) (K2, [employer]) (A1): Low proliferation rate (<20% of cells, moderate to strong nuclear staining) NOTE: One or more of the reagents [...] performance characteristics have been determined by [facility] and/or by the referring laboratory. The positive and negative controls worked appropriately. If immunoperoxidase staining has been performed on alcohol fixed cytology specimens, which has not been fully validated, the assays should be interpreted with caution and correlated with clinical data. This laboratory is certified under the Clinical Laboratory Improvement Amendments of 1988 (CLIA-88) as qualified to perform high complexity clinical laboratory testing. 07/27/2022 17:04 T [facility] Clinical History Paraspinal SQ mass 1.9 cm; clinical diagnosis code: R22.2 07/27/2022 17:04 EDT [facility] Gross Description A. Received in formalin labelled with proper patient identification (initials P, E) and not otherwise specified are 3 lerma-white tissue cores (1.1 cm to 0.5 cm in length, and each 0.1 cm in diameter). Entirely submitted in A1-A2. KULDEEP KAT 07/20/2022 11:34 07/27/2022 17:04 T [facility] Performing Lab [facility] 07/27/2022 17:04 T [facility] Scanned Images 07/27/2022 17:04 [facility] Tissue SOFT TISSUE / Unknown Collection, Other / Unknown 07/20/2022 9:44 EDT 07/20/2022 10:07 EDT Aleksander Benentt MD PATHOLOGY OR DERABLES Performing Organization Address City/State/[facility] Co de Phone Number [facility] [address] [place] [address] * NON OUTSOLE MOLDER/FNA CYTOLOGY (07/20/2022 9:44 EDT) Note to Patient The following pathology results have been interpreted by your pathologist and may be available to you before your health provider has had the opportunity to review them. Please allow time for your provider to receive these results and explore management options, if applicable. 07/31/2022 10:32 T [facility] Final Diagnosis SOFT TISSUE, RIGHT, PARASPINAL, SUBCUTANEOUS MASS 1.9 CM, ULTRASOUND GUIDED FINE NEEDLE ASPIRATION: - Atypical lymphocytic proliferation. See comment. 07/31/2022 10:32 T [facility] Diagnosis Comment The abundantly cellular aspirate smears show a polymorphous population of lymphocytes ranging in size from small (predominant population) to intermediate, to occasional large forms that have round to slightly irregular contours, occasional nuclei, and a small amount of cytoplasm. Scattered histiocytes and plasma cells are occasionally seen.There is no evidence of granulomatous inflammation, epithelial malignancy, or Arsh-Radha cells. This case was reviewed in consultation with our hematopathology colleague, Dr. Box. Concurrent flow cytometry ([id number]) did not show immunophenotypic evidence of a clonal cell population. Concurrent surgical pathology core biopsy specimen ([id number]) was similar to the cytology specimen in showing an atypical lymphoid and plasmacytic population of cells. The differential diagnosis includes a reactive process versus a lymphoproliferative disorder. However, given the unclear nature of the diagnosis, should the mass persist or enlarge in size, an excisional biopsy may be considered if clinically appropriate. 07/31/2022 10:32 [facility] Attestation There was significan t resident/fellow involvement in the diagnostic evaluation of this case. By the signature below, the attending physician certifies that they have personally conducted a gross and/or microscopic examination of the described specimens and rendered or confirmed the above diagnosis. 07/31/2022 10:32 [facility] at 1032 Rapid Diagnosis SOFT TISSUE, PARASPINAL SUBCUTANEOUS MASS, 1.9 CM, ULTRASOUND GUIDED FINE NEEDLE ASPIRATION: Evaluation episode #1: Pass 1-3: Atypical lymphoid proliferation. Dedicated passes for flow cytometry. Cores obtained. Dr. Sari Henning 07/20/2022 9:40 AM I was present at the procedure and have personally reviewed the slides and the resident? s interpretation and agree with the findings. Dr. Jennifer Zurita 07/20/2022 9:40 AM 07/31/2022 10:32 [facility] Clinical History Paraspinal SQ mass 1.9 cm 07/31/2022 10:32 [facility] Gross Description A. 3 fixed prepared slides and 1 air dried prepared slides were received. 07/31/2022 10:32 [facility] Resident/Fell ow: Charito Henning MD 07/31/2022 10:32 [facility] Performing Lab [facility] 07/31/2022 10:32 [facility] Scanned Images 07/31/2022 10:32 EDT [facility] Fine Needle Aspirate SOFT TISSUE / Unknown 07/20/2022 9:44 EDT 07/20/2022 9:58 EDT Aleksander Bennett MD PATHOLOGY OR DERABLES Performing Organization Address [facility] de Phone Number [facility] [address] [place] [address] * PLATELET COUNT (07/20/2022 7:49 EDT) Pathologist [facility] PLT [phone] K/cmm 07/20/2022 8:02 EDT [facility] Blood VENOUS BLOOD / Unknown Venipuncture / Unknown 07/20/2022 7:49 EDT 07/20/2022 7:51 EDT Peter Davidson PA-C HEMATOLOGY & PF4 ORDERABLES Performing Organization Address [facility] de Phone Number [facility] [address] [place] [address] * (ABNORMAL) POCT GLUCOSE, INTERFACED (07/20/2022 7:44 EDT) Pathologist [facility] Glucose, POC 147(H) 70 - 100 mg/dL 07/20/2022 7:48 EDT [facility] HN LAB POC COMMENT (GLUCOSE) Test Performed by Nursing Services 07/20/2022 7:48 EDT [facility] Blood CAPILLARY BLOOD / Unknown 07/20/2022 7:44 EDT 07/20/2022 7:48 EDT Provider Unknown POINT OF CARE TEST O RDERABLES Performing Organization Address [facility] de Phone Number [facility] [address] [place] [address] documented in this encounter Visit Diagnoses Diagnosis Subcutaneous mass of back documented in this encounter Administered Medications Inactive Administered Medications - up to 3 most recent administrations Medication Order MAR Action Action Date Dose Rate Site acetaminophen (TYLENOL) tablet 650 mg 650 mg, oral, EVERY 4 HOURS PRN, Starting on Sat07/20/22 at 0954, Until 07/22/22 at 0201, Pain, Routine Given 07/20/2022 10:35 EDT 650 mg fentaNYL citrate (PF) injection 25-250 mcg 25-250 mcg, intravenous, ONCE PRN, 1 dose, Starting on Sat07/20/22 at 0722, Until Sat07/20/22 at 0942, Other, Radiology Procedure, Routine, Intraprocedure Given 07/20/2022 9:42 EDT 150 mcg midazolam (MDV) (VERSED) injection 0.5-10 mg 0.5-10 mg, intravenous, ONCE PRN, 1 dose, Starting on Sat07/20/22 at 0722, Until Sat07/20/22 at 0943, Sedation, Routine, Intraprocedure Given 07/20/2022 9:43 EDT 1.5 mg sodium chloride 0.9 % (NS) infusion 50 mL/hr, intravenous, CONTINUOUS, Starting on Sat07/20/22 at 0730, Until Sat07/22/22 at 0201, Routine, Preprocedure New Bag 07/20/2022 7:52 EDT 50 mL/hr 50 mL/hr documented in this encounter Historical Medications * This list may reflect changes made after this encounter. Medication Sig Dispensed Refills Start Date End Date atorvastatin (LIPITOR) 40 mg tablet Take 1 Tablet by mouth daily. dulaglutide (TRULICITY) 1.5 mg/0.5 mL subcutaneous pen Inject 0.5 mL into the skin every 7 days. HYDROmorphone (DILAUDID) 2 mg tablet Take by mouth every 4 hours as needed. 08/09/2022 added in this encounter Orders Medications Ordered That Sheng ht Not Have Been Administered Count Last Ordered Date First Ordered Date acetaminophen (TYLENOL) suppository 650 mg 1 07/20/2022 flumazenil (ROMAZICON) injection 0.2 mg 1 0 07/20/2022 lidocaine (PF) 10 mg/mL (1 % ) injection 2 mg 1 07/20/2022 naloxone (NARCAN) injection 0.4 mg 1 2021 ondansetron (PF) (ZOFRAN) injection 4 mg 1 07/20/2022 ondansetron (ZOFRAN) 4 mg in sodium chloride (NS) 0.9 % 50 mL IVPB 1 07/20/2022 sodium chloride 0.9 % (NS) infusion 1 07/20 Discharge Count Last Ordered Date First Orde red Date DISCHARGE PATIENT 1 07/20/2022 documented in this encounter Care Teams Induction Brazer Relationship Specialty Start Date End Date Perla Zamorano, METAL GRADER [address] [place] [address] PCP - General 04/26/22 documented as of this encounter
--- OUTSIDE RECORDS SUMMARY | 2024-07-02 18:52 | XMS_ITS | Encounter Summary ---
Author Organization [facility] Address [address] [place] [address] Care Team Providers Care Information Technology Intern Name Role Phone LonaPerla John ENGINEERING TECHNICIAN PARKING Primary Care Provider Reason for Visit * Reason Onset Date Comments Appointment Related 07/11/2022 Encounter Details Date Type Department Care Team (Late st Contact Info) Description 07/11/2022 Telephone [facility] Interventional Radiology - [address] [id number] Danny Fox MD [address] [facility] Level 1 [place] [address] Appointment Related Social History Tobacco [...] * Telephone Encounter - Dayanara Lind - 07/11/2022 1132 EDT Spoke with Yesenia to r/s her US biopsy with vascular per patients requests for galen this morning Yesenia confirmed she will verify with her dad he can drive her for new appointment Friday 07/20 @ 7:00am, checking in at 645am at registration Per prior triaged letter no meds to hold Patient inquired about her current infection in teeth. Per patient- her dentist is wanting to extract 4x teeth and wanting to know if they should wait for biopsy to be completed or proceed with extraction I explained I would inquire with our nursing team. documented in this encounter Plan of Treatment Not on file documented as of this encounter Visit Diagnoses Not on filedocumented in this encounter Care Teams Information Technology Intern Relationship Specialty Start Date End Date Perla Zamorano NP [address] [place] [address] PCP - General 04/26/22 documented as of this encounter
--- OUTSIDE RECORDS SUMMARY | 2024-07-02 18:52 | XMS_ITS | Encounter Summary ---
Author Organization [facility] Address [address] [place] [address] Care Team Providers Care Cushion Maker Name Role Phone Emily Bejarano Lena AWAD Primary Care Provider [phone] Reason for Visit * Reason Onset Date Comments Advice Only 12/15/2019 Encounter Details Date Type Department Care Team (Late st Contact Info) Description 12/15/2019 Telephone [facility] Women's Services - [address] [id number] Luli Dejesus MD [address] [facility], [facility] [address] [place] [address] Advice Only Social History Tobacco Use Types Packs/Day [...] encounter Miscellaneous Notes * Telephone Encounter - Kay Gamino RN - 12/15/2019 1329 EST Call to patient. I spoke to patient. Patient was inquiring about pain management for LEEP procedure. I informed patient that provider does use lidocaine injection for numbing. Also informed patient that she could take 600 mg of ibuprofen an hour before procedure if she is able to take ibuprofen. Patient asking if able to acquire gas vouchers. I will find out for patient. I will check base withthe social workers. Okay per patient to leave message on her voicemail after finding out information. * Telephone Encounter - Alejandra Wilson - 12/15/2019 1201 EST Pt called in today to get appointment information for the LEEP Procedure scheduled. Pt stated that she would like to take or use something before this procedure for the pain. She can be reached at [phone] if needed. documented in this encounter Plan of Treatment Not on file documented as of this encounter Visit Diagnoses Not on filedocumented in this encounter Care Teams Cushion Maker Relationship Specialty Start Date End Date Emily Bejarano APRN [address] [place] [phone] PCP - General 04/30/18 04/25/22 documented as of this encounter
--- OUTSIDE RECORDS SUMMARY | 2024-07-02 18:52 | XMS_ITS | Encounter Summary ---
Author Organization [facility] Address [address] [place] [address] Care Team Providers Care Content Director Name Role Phone Emily Bejarano APRN Primary Care Provider Perla Zamorano NP Primary Care Provider [phone] Encounter Details Date Type Department Care Team (Late st Contact Info) Description 07/22/2021 Lab Requisition [facility] Pathology & Laboratory Medicine - [facility] [address] [place] [address] Outr Resulting Lab, Provider Social History Tobacco [...] Procedure Name Priority Date/Time Associated Diagnosis Comments FECAL BACTERIAL PATHOGENS BY PCR Routine 07/21/2021 18:33 EDT documented in this encounter Results * FECAL BACTERIAL PATHOGENS BY PCR (07/21/2021 18:33 EDT) Salmonella PCR Negative Negative 07/23/2021 21:46 EDT [facility] Shigella/Enteroin vasive E. coli Negative Negative 07/23/2021 21:46 EDT [facility] HN LAB CAMPYLOBACTER PCR Negative Negative 07/23/2021 21:46 EDT [facility] Shiga Toxin PCR Negative Negative 21:46 EDT [facility] Feces SPECIMEN FROM RECTUM / Unknown Stool Collect / Unknown 07/21/2021 18:33 EDT 07/23/2021 17:35 EDT Provider Outr Resulting Lab MICROBIOLOGY - GENERAL ORDERABLES [facility] [address] [place] [address] documented in this encounter Visit Diagnoses Not on filedocumented in this encounter Care Teams Content Director Relationship Specialty Start Date End Date Emily Bejarano APRN [address] [place] [address] PCP - General 04/30/18 04/25/22 Perla Zamorano, ELEMENTARY SUPERVISOR [address] [place] [address] PCP - General 04/26/22 documented as of this encounter
--- OUTSIDE RECORDS SUMMARY | 2024-07-02 18:52 | XMS_ITS | Encounter Summary ---
Author Organization [facility] Address [address] [place] [address] Care Team Providers Care Decating Machine Operator Name Role Phone Reji Zamoranoi John BOX TRUCK WASHER Primary Care Provider Reason for Visit * Reason Onset Date Comments Pre-procedure 07/12/2022 Encounter Details Date Type Department Care Team (Late st Contact Info) Description 07/12/2022 Telephone [facility] Interventional Radiology - [facility] [address] [place] [address] Emanuel Gonzalez, RN [address] [place] [address] Pre-procedure Social History Tobacco Use Types Packs/Day [...] Telephone Encounter - Emanuel Gonzalez RN - 07/12/2022 1541 EDT Interventional Radiology Appt: Mass near T11 biopsy on July 20 Phone call made to patient to review the following pre-procedure prep & information: Yesenia and I reviewed prep, will also send on [employer] as requested. Yesenia has an active tooth infection, with plan for oral surgery on 07/24. She is otherwise feeling well, no systemic sx. I let her know this should not alter this biopsy but will review with one of our providers to confirm. Check into registration (3rd floor) by 645AM (even if you have pre registered) ??? Most of our procedures utilize some form of sedation. Having a services delivery driver to take you home is required. A bus or taxi is not allowed. It is preferable to have your services delivery driver accompany you to the appointment. If this is not possible, please bring your drivers contact information with you to the appointment. They need to be accessible by phone, please note the parking garage does not have consistent cell phone coverage. Current Visitor Policy: -Entrances into all [facility] buildings and clinics will be restricted and everyone who enters will be asked the purpose of their visit to the medical center. - Two people are permitted to escort a patient undergoing any procedure requiring sedation or general anesthesia. Patient is aware to call prior to the scheduled procedure if they develop cough, fever, sore throat,loss of taste or smell Pre Sedation Guidelines: ??? Have no Solid food or liquids containing fats(including milk)after midnight before the procedure ??? On the day of your procedure you may only have water, apple juice or sports drinks(Gatorade) until 2 hours before check in time ??? After 5AM, nothing by mouth, however you may take medications at any time with small sips of water Medications - take prescribed medications. You should take as needed pain meds as needed. Meds to hold: METFORMIN: HOLD AM OF biopsy pt confirms they are not on any blood thinning medication ??? Do not take Ibuprofen ( Motrin, Advil) for 24 hours prior to the procedure or Aleve (Naproxen) for 2 days prior ??? Full strength Aspirin should not be taken for 5 days prior to this procedure. If you are on a baby Aspirin , this is okay to continue. ( taking any of the above medications could cause a delay in your procedure) -Tylenol (acetaminophen) may be taken for pain. - Bring a list of current medications/allergy list -Shower night before or morning of procedure -Leave all valuables/medications at home (other than glasses/hearing aids).If patient uses a CPAP, they should bring it to the appt. pt verbalized understanding, all questions answered. [facility] RN phone number provided, should they have any further questions prior to this appointment. documented in this encounter Plan of Treatment Not on file documented as of this encounter Visit Diagnoses Not on filedocumented in this encounter Care Teams Decating Machine Operator Relationship Specialty Start Date End Date Perla Zamorano NP [address] [place] [address] PCP - General 04/26/22 documented as of this encounter
--- OUTSIDE RECORDS SUMMARY | 2024-07-02 18:52 | XMS_ITS | Encounter Summary ---
Author Organization [facility] Address [address] [place] [address] Care Team Providers Care Shearer Operator Name Role Phone Emily Bejarano APRN Primary Care Provider Perla Zamorano NP Primary Care Provider [phone] Encounter Details Date Type Department Care Team (Late st Contact Info) Description 07/22/2021 Lab Requisition [facility] Pathology & Laboratory Medicine - [facility] [address] [place] [address] Outr Resulting Lab, Provider Social History Tobacco [...] Procedure Name Priority Date/Time Associated Diagnosis Comments GIARDIA AND CRYPTOSPORIDIUM ANTIGENS Routine 07/21/2021 18:33 EDT documented in this encounter Results * GIARDIA AND CRYPTOSPORIDIUM ANTIGENS (07/21/2021 18:33 EDT) Giardia and Cryptosporidium Cryptosporidium Antigen Neg and Giardia Antigen Neg Cryptosporidium Antigen Neg and Giardia Antigen Neg 11:39 EDT [facility] Feces SPECIMEN FROM RECTUM / Unknown Stool Collect / Unknown 07/21/2021 18:33 EDT 07/23/2021 17:35 EDT Provider Outr Resulting Lab MICROBIOLOGY - GENERAL ORDERABLES Performing Organization Address City/State/[facility] Co de Phone Number [facility] [address] [place] [address] documented in this encounter Visit Diagnoses Not on filedocumented in this encounter Care Teams Shearer Operator Relationship Specialty Start Date End Date Emily Bejarano APRN [address] [place] [address] PCP - General 04/30/18 04/25/22 Perla Zamorano NP [address] [place], [place] [id number] PCP - General 04/26/22 documented as of this encounter
--- OUTSIDE RECORDS SUMMARY | 2024-07-02 18:52 | XMS_ITS | Encounter Summary ---
Author Organization [facility] Address [address] [place] [address] Care Team Providers Care Registrar Nurses' Registry Name Role Phone Perla Zamorano DIRECTOR HAIR Primary Care Provider [phone] Reason for Visit * Reason Onset Date Comments Surgery Scheduling 04/27/2022 Returning Call 05/02/2022 Encounter Details Date Type Department Care Team (Late st Contact Info) Description 04/27/2022 Telephone [facility] Urology - [address] [address] Juan Solitario MD [address] [place] [address], [facility] [address] [place] [address] Surgery Scheduling; Returning Call Social History Tobacco Use Types Packs/Day Years [...] encounter Miscellaneous Notes * Telephone Encounter - Ling Simpson - 05/02/2022 1509 EDT Spoke with the patient to confirm her surgery on 08/16/[address] Solitario. Pt will contact her PCP toschedule a pre-op history and physical within the 30 days prior. Labs, urine culture and CXR will be completed within the 7 to 30 days prior at [facility]. A covid test is required 3 days prior to surgery. PREP FOR SURGERY: Day Prior to surgery: 1) You can have a light breakfast. Then clear liquids only the rest of the day. 2) Bowel Prep: Magnesium citrate (10 oz bottle), drink the entire bottle at 4 pm. Day of surgery: 1) You can have only water, apple juice and sports drinks until 4 hours before the scheduled time of your procedure. * Telephone Encounter - Nahum Patterson - 05/02/2022 0907 EDT Patient returning call to discuss scheduling a procedure with Dr Solitario. Please call back. * Telephone Encounter - Ling Simpson - 04/27/2022 1507 EDT A message was left for the patient requesting she contact the office to discuss scheduling surgery with Dr. Solitario. documented in this encounter Plan of Treatment Not on file documented as of this encounter Visit Diagnoses Not on filedocumented in this encounter Care Teams Registrar Nurses' Registry Relationship Specialty Start Date End Date Perla Zamorano, DIRECTOR HAIR [address] [place] [address] PCP - General 04/26/22 documented as of this encounter
--- OUTSIDE RECORDS SUMMARY | 2024-07-02 18:52 | XMS_ITS | Encounter Summary ---
Author Organization [facility] Address [address] [place] [address] Care Team Providers Care Compensation And Benefits Manager Name Role Phone Emily Bejarano APRN Primary Care Provider [phone] Perla Zamorano NP Primary Care Provider [phone] Encounter Details Date Type Department Care Team (Late st Contact Info) Description 10/03/2021 Lab Requisition [facility] Pathology & Laboratory Medicine - [facility] [address] [place] [address] Outr Resulting Lab, Provider Social History Tobacco [...] Procedure Name Priority Date/Time Associated Diagnosis Comments ZZCOVID-19 TEST [facility] PCR Today 10/02/2021 14:20 EST COVID-19 TESTING Routine 10/02/2021 14:2 0 EST documented in this encounter Results * COVID-19 TEST [facility] PCR (10/02/2021 14:20 EST) Swab 10/02/2021 14:2 0 EST 10/03/2021 16:59 EST Provider Outr Resulting Lab MICROBIOLOGY - GENERAL ORDERABLES Performing Organization Address City/State/[facility] Co de Phone Number [facility] [address] [place] [id number] * COVID-19 TESTING (10/02/2021 14:20 EST) COVID-19 rt-PCR Result Negative Negative 10/04/2021 12:22 EST [facility] Comment: This test has not [...] clinical observations, patient history, and epidemiological information. Testing was performed using the neris SARS-CoV-2 assay ([employer] on the Neris 6800 System Performing Lab Neris 6800 [facility] 10/04/2021 12:22 EST [facility] Swab 10/02/2021 14:2 0 EST 10/03/2021 16:59 EST Provider Outr Resulting Lab MICROBIOLOGY - GENERAL ORDERABLES Performing Organization Address City/State/[facility] Co de Phone Number [facility] [address] [place] [address] documented in this encounter Visit Diagnoses Not on filedocumented in this encounter Care Teams Compensation And Benefits Manager Relationship Specialty Start Date End Date Emily Bejarano APRN [address] [place] [phone] PCP - General 04/30/18 04/25/22 Perla Zamorano NP [address] [place] [address] PCP - General 04/26/22 documented as of this encounter
--- OUTSIDE RECORDS SUMMARY | 2024-07-02 18:52 | XMS_ITS | Encounter Summary ---
Author Organization [facility] Address [address] [place] [address] Care Team Providers Care Shipping Checker Name Role Phone Emily Bejarano Lena AWAD Primary Care Provider [phone] Reason for Visit * Reason Comments Social Work Encounter Details Date Type Department Care Team (Late st Contact Info) Description 12/16/2019 Community Health Team [facility] Women's Services [address] [address] Ling Ballesteros Social History Tobacco Use Types [...] as of this encounter Progress Notes * GmjuanLauraLing - 12/16/2019 1310 EST Brief care coord with RN Kay Gamino who pt talked with via ph re her transportation/financial needs. Pt req a gas card. SW called pt and talked briefly - assured pt SW can provide her with a gas card and parking and cafeteria vouchers at her next 02/01 appt. SW added pt to her sched and will f/u with pt 02/01. [facility] Total Time: 15 min total 5 min via ph with pt 5 min care coord 5 min charting Referral: n/a Follow up: Date: Sunday, February 02, 2020 Time: 10 AM With: Ling Ballesteros Splicer Helper Location: [facility] Status: Active documented in this encounter Plan of Treatment Not on file documented as of this encounter Visit Diagnoses Not on filedocumented in this encounter Care Teams Shipping Checker Relationship Specialty Start Date End Date Emily Bejarano APRN [address] [place] [address] PCP - General 04/30/18 04/25/22 documented as of this encounter
--- OUTSIDE RECORDS SUMMARY | 2024-07-02 18:52 | XMS_ITS | Encounter Summary ---
Author Organization [facility] Address [address] [place] [address] Care Team Providers Care Eligibility Consultant Name Role Phone Emily Bejarano Lena AWAD Primary Care Provider [phone] Reason for Visit * Reason Onset Date Comments Surgery Scheduling 05/04/2020 Encounter Details Date Type Department Care Team (Late st Contact Info) Description 05/04/2020 Telephone [facility] Women's Services - [address] [phone] Luli Dejesus MD [address] [facility], [facility] [address] [place] [address] Surgery Scheduling Social History Tobacco [...] * Telephone Encounter - Marychuy Mendez - 05/04/2020 1648 EDT Final confirmation call for pt. Check in at 1035a tomorrow. Pt has ride. Pt understands fasting instructions of no solids past midnight. Clear fluids ok until 3 hours prior. Pt will have black coffeewith sugar. Pt wants to know if food will be provided in PACU. Told her to ask nurses afterwards since she is diabetic. Pt in agreement with plan. documented in this encounter Plan of Treatment Not on file documented as of this encounter Visit Diagnoses Not on filedocumented in this encounter Care Teams Eligibility Consultant Relationship Specialty Start Date End Date Emily Bejarano APRN [address] [place] [phone] PCP - General 04/30/18 04/25/22 documented as of this encounter
--- OUTSIDE RECORDS SUMMARY | 2024-07-02 18:52 | XMS_ITS | Encounter Summary ---
Author Organization [facility] Address [address] [place] [address] Care Team Providers Care Dean Of Graduate Studies Name Role Phone Emily Bejarano Lena AWAD Primary Care Provider [phone] Reason for Referral * Radiology Services (Routine/Next Available) - Authorization Not Required Specialty Diagnoses / Procedures Referred By Contac t Referred To Contact Radiology Diagnoses Renal mass Procedures MR ABDOMEN W WO CONTRAST Tracy Solitario MD [address] [place] [phone] [facility] Referral ID Status Reason Start Date Expiration Date Visits Requested Visits Authorized [id number] Authorization Not Required 03/22/2022 1 1 Reason for Visit * Reason Comments New Patient Visit renal mass * Referral (3 - 10 Business Days) - Receiving Office to Obtain Authorization Specialty Diagnoses / Procedures Referred By Contac t Referred To Contact Urology Diagnoses Renal mass Nato Gutierrez MD [address] [place] [address] Tracy Solitario MD [address] [place] [phone] Referral ID Status Reason Start Date Expiration Date Visits Requested Visits Authorized [id number] Receiving Office to Obtain Authorization 1 1 Encounter Details Date Type Department Care Team (Late st Contact Info) Description 03/22/2022 11:30 EDT Office Visit [facility] Urology - [address] [id number] Tracy Solitario MD [address] [place] [address], [address] [place] [address] Renal mass (Primary Dx) Social [...] as of this encounter Progress Notes * Tracy Solitario MD - 03/22/2022 1130 EDT 3.0 x 3.9cm right lower pole Dr Nato Gutierrez: I had the pleasure of seeing Yesenia in consultation today in the division of urology at [facility]. As you recall, she is a 41-year-old woman who was sent for evaluation of a solid-appearing mass in the lower pole of the right kidney. Amanda like she has been having ongoing abdominal pain associated with nausea and vomiting, particularly after greasy foods, which has been going on for severalmonths. Recently, she underwent a CT scan for evaluation of this, which shows a 3.9 x 3.0 cm apparently enhancing right renal mass, although I do not see any noncontrasted phases to evaluate for enhancement. This has been asymptomatic without hematuria, true flank pain, weight loss, bone pain, or ot her systemic complaints. Her past medical history is significant for morbid obesity, type 2 diabetes, hypercholesterolemia, hypothyroidism and headaches. Past surgical history is significant for section x2, a LEEP procedure and a laparoscopic cholecystectomy. She is allergic to DILAUDID and MORPHINE. Her current medications include albuterol, Synthroid, and Glucophage. Her social history is significant for 2 to 3 packs per day of tobacco use for 25 years, although she is working on [employer]. She has a history of heavy alcohol use, but is not currently drinking.She does use marijuana daily. 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 Her family history is significant for a father with coronary artery disease, her mother had lung cancer. There are no known malignancies. Looking at her films, she has a small cyst in her left kidney in addition to the lesion in the lower pole of her right kidney. I do not see any regional lymphadenopathy. Her adrenal glands appear normal. My assessment at this time is a 41-year-old woman who has an apparently solid enhancing renal mass in the lower pole of the right kidney measuring 3.0 x 3.9 cm. We talked extensively about the implications of this finding. She understands that about 75 to 80% of these masses will represent small cancers, the remaining 20 to 25% represent benign lesions. We talked about further evaluative efforts.I have recommended that she undergo an MRI with and without contrast to better assess this lesion, as well as the small cyst in her left kidney. She does have some scarring in her left kidney, which gives of the lower pole of her left kidney a bit of a mass-like appearance too. We will be able to further evaluate that there. We went on to talk about treatment options, should we remain concerned about this representing a malignant lesion. We talked about observation, active surveillance, biopsy,ablation or surgical excision. Given the uncertainties of biopsies, etc. in this young woman I think it would be reasonable to proceed straight to a robotic-assisted laparoscopic partial nephrectomy should we confirm a concerning lesion, I will plan to see her back after her MRI. Again, thank you for sending this patient for evaluation in the division of urology at [facility]. I look forward to working with you in the future. We will keep you informed of her progress. documented in this encounter Plan of Treatment Not on file documented as of this encounter Procedures Procedure Name Priority Date/Time Associated Diagnosis Comments MR ABDOMEN W WO CONTRAST Routine 04/26/2022 10:37 EDT Renal mass documented in this encounter Results * MR ABDOMEN W WO CONTRAST (04/26/2022 10:37 EDT) Anatomical Region Laterality Modality Body, Abdomen Magnetic Resonan ce 04/26/2022 14:3 1 EDT Addenda Addendum by Jolie Thompson MD on 04/27/2022 10:20 EDT Addendum: Differential for the slow growing subcutaneous lesions would include primarily peripheral nerve sheath tumor, very unlikely metastatic disease given the lack of metastatic disease elsewhere in the abdomen and pelvis and slow growth. Consider following on future exams versus tissue sampling. These findings were discussed with Dr. TRACY SOLITARIO by Dr. Jolie Thompson at 04/27/2022 10:20 AM. Impressions 04/26/2022 14:31 EDT 1. 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 The renal vein and IVC are patent. 2. Indeterminate T1 and T2 hyperintense enhancing nodules along the paraspinal subcutaneous fat and musculature, increased in size compared with 2017. 3. Hepatomegaly and hepatic steatosis. I have personally reviewed the images and the above interpretation and agree with the findings. Narrative 04/26/2022 14:31 EDT MR ABDOMEN W WO CONTRAST ??04/26/2022 9:45 AM Signs and Symptoms/Comments: ?? Renal mass, normal renal function Technique: Nv-eyv-dts-of-phase, T2-weighted, diffusion weighted images were followed by dynamic gadolinium enhanced T1 fat-suppressed gradient echo images of the abdomen. Subtraction imaging performed. Comparison: CT abdomen and pelvis 03/03/2022, CT renal colic 09/11/2017, and right upper quadrant ultrasound 03/02/2010. Findings: Lower chest: Normal MR appearance. Hepatobiliary: The liver is enlarged with signal dropout on out of phase imaging compatible with hepatic steatosis. There are a few scattered subcentimeter hepatic cysts without any concerning hepatic lesion. The patient is status post cholecystectomy and there is no intrahepatic or extrahepatic biliary ductal dilatation. Spleen, pancreas, adrenal glands: The spleen and adrenal glands are normal. The pancreas is normal with no peripancreatic fat stranding or pancreatic ductal dilatation. Kidneys, proximal ureters: In the lower pole of the right kidney, corresponding with findings on recent CT, there is a 3.1 x 4.1 x 3.1 cm multiloculated cystic mass with multiple thickened enhancing septae (measuring up to 3 mm maximum diameter) and mural nodules (measuring up to 1.4 x 0.9 cm (subtraction series 1002, image #562). This does not appear to invade any adjacent structures with maintained fat planes. A benign 1 cm cyst is present in the left upper renal pole. There is mild cortical scarring in the left lower pole. There are no other suspicious renal masses. The right renal vein and IVC appear patent. There is no hydronephrosis. Bowel: No small or large bowel obstruction. The appendix is normal. Normal MR appearance. Peritoneal cavity: No free intraperitoneal air or organized fluid collection. Lymphovascular: There are no enlarged lymph nodes. The right renal vein and IVC are patent. No abnormality of the included vasculature. Abdominal wall: See below. Musculoskeletal: Normal marrow signal throughout with no suspicious osseous lesion. There is a 1.9 x 1.7 cm T1 hyperintense and T2 hyperintense enhancing nodule along the right paraspinal subcutaneous fat at the level of the T11 vertebral body on series 1002 image 308. This is similar to CT from 03/03/2022, but increased in size since 2017. Additional small enhancing nodule more inferiorly along the left paraspinal musculature superficially on series 1002 image 498. Localizer: No additional abnormalities. Procedure Note Jolie Thompson MD - 04/26/2022 MR ABDOMEN W WO CONTRAST 04/26/2022 9:45 AM Signs and Symptoms/Comments: Renal mass, normal renal function Technique: Tj-aex-bds-of-phase, T2-weighted, diffusion weighted images were followedby dynamic gadolinium enhanced T1 fat-suppressed gradient echo images ofthe abdomen. Subtraction imaging performed. Comparison: CT abdomen and pelvis 03/03/2022, CT renal colic 09/11/2017, and right upperquadrant ultrasound 03/02/2010. Findings: Lower chest: Normal MR appearance. Hepatobiliary: The liver is enlarged with signal dropout on out of phaseimaging compatible with hepatic steatosis. There are a few scatteredsubcentimeter hepatic cysts without any concerning hepatic lesion. Thepatient is status post cholecystectomy and there is no intrahepatic orextrahepatic biliary ductal dilatation. Spleen, pancreas, adrenal glands: The spleen and adrenal glands arenormal. The pancreas is normal with no peripancreatic fat stranding orpancreatic ductal dilatation. Kidneys, proximal ureters: In the lower pole of the right kidney,corresponding with findings on recent CT, there is a 3.1 x 4.1 x 3.1 cmmultiloculated cystic mass with multiple thickened enhancing septae(measuring up to 3 mm maximum diameter) and mural nodules (measuring up to1.4 x 0.9 cm (subtraction series 1002, image #562). This does not appearto invade any adjacent structures with maintained fat planes. A benign 1cm cyst is present in the left upper renal pole. There is mild corticalscarring in the left lower pole. There are no other suspicious renalmasses. The right renal vein and IVC appear patent. There is nohydronephrosis. Bowel: No small or large bowel obstruction. The appendix is normal. NormalMR appearance. Peritoneal cavity: No free intraperitoneal air or organized fluidcollection. Lymphovascular: There are no enlarged lymph nodes. The right renal veinand IVC are patent. No abnormality of the included vasculature. Abdominal wall: See below. Musculoskeletal: Normal marrow signal throughout with no suspiciousosseous lesion. There is a 1.9 x 1.7 cm T1 hyperintense and [id number] enhancing nodule along the right paraspinal subcutaneous fatat the level of the T11 vertebral body on series 1002 image 308. This issimilar to CT from 03/03/2022, but increased in size since 2017. Additionalsmall enhancing nodule more inferiorly along the left paraspinalmusculature superficially on series 1002 image 498. Localizer: No additional abnormalities. IMPRESSION 1. There is a 4.1 cm Bosniak IV cystic mass in the right lower pole withthickened, enhancing septae and enhancing mural nodules highly concerningfor RCC, increase in size compared with 2017. The renal vein and IVC arepatent. 2. Indeterminate T1 and T2 hyperintense enhancing nodules along theparaspinal subcutaneous fat and musculature, increased in size comparedwith 2017. 3. Hepatomegaly and hepatic steatosis. I have personally reviewed the images and the above interpretation andagree with the findings. Tracy Solitario MD IMG MRI ORDERABLE S documented in this encounter Visit Diagnoses Diagnosis Renal mass- Primary Unspecified disorder of kidney and ureter documented in this encounter Historical Medications * This list may reflect changes made after this encounter. Medication Sig Dispensed Refills Start Date End Date IBUPROFEN ORAL Take by mouth. PT states she takes 1000 mg added in this encounter Care Teams Dean Of Graduate Studies Relationship Specialty Start Date End Date Emily Bejarano APRN [address] [place] [phone] PCP - General 04/30/18 04/25/22 documented as of this encounter
--- OUTSIDE RECORDS SUMMARY | 2024-07-02 18:52 | XMS_ITS | Encounter Summary ---
Author Organization [facility] Address [address] [place] [address] Care Team Providers Care Tactical Intelligence Officer Name Role Phone Emily Bejarano DELMI Primary Care Provider Reason for Visit * Reason Comments Abnormal Pap Smear MATT II Encounter Details Date Type Department Care Team (Late st Contact Info) Description 02/02/2020 10:[address] [facility] Women's Services - [address] [phone] Luli Dejesus MD [address] [place] [address], [facility] [address] [place] [address] MATT II (cervical intraepithelial neoplasia II) (Primary Dx) Social History Tobacco Use Types Packs/Day Years Used Date Smoking Tobacco: Every Day Cigarettes Smokeless Tobacco: Never Tobacco Cessation:Ready to Q uit: No; Counseling Given: Yes Comments:smoking 5 per day Alcohol Use Standard [...] Sign Reading Time Taken Comments Blood Pressure 126/72 02/02/2020 0945 EDT Pulse - - Temperature - - Respiratory Rate - - Oxygen Saturation - - Inhaled Oxygen Concentration - - Weight - - Height - - Body Mass Index - - documented in this encounter Functional Status Functional [...] as of this encounter Progress Notes * Luli Dejesus MD - 02/02/2020 1000 EDT S: Patient is a 39-year-old para 3 woman who is here today for LEEP. She previously underwent colposcopy which was quite difficult and I had offered her treatment in OR. She wanted an attempt at office treatment. She reports that she has had issues with elevated glucose in the past but recently hashad better finger sticks, currently she is on no medication for diabetes. She does report she has continued to gain weight since her last child. Reports that when she does check fingersticks they arenever above 130. Hx TL HPV Hx: 2000 ASCUS 2008, 2009, 2010 neg paps 02/2018 pap neg, HPV pos 05/2019 LSIL, HPV pos, vulvar bx LIEN I /condyloma 11/2019 colpo: ECC- MATT II, vag bx condyloma, cx bx neg. O:Blood pressure 126/72, last menstrual period 01/10/2020, not currently . After consenting the patient for LEEP procedure she was placed in the dorsal lithotomy position on the exam table and a coated speculum was placed I was unable to get to her cervix which is tacked retropubically. Previously I could reach the cervix with a smaller speculum but the coated speculum istoo bulky to allow this. It was quite uncomfortable and after several attempts to visualize the cervix it was decided that she should have cervical treatment in the operating room. A/P: MATT-2 that is not amenable to office treatment given the location of her cervix and her obesity. We discussed proceeding with treatment in the operating room. I explained the procedure of a LEEPwhich is similar to what we do in the office but we would have better visualization of her cervix. Case request was placed and operative consent signed. Encouraged to fingersticks and if she is having elevated glucose to see her primary provider for possible treatment. Patient does not need a preoperative visit with me, her surgery occurs more than 30 days from now we will do a updated H&P atthe time of her admission for procedure she has to travel an hour and a half to get here and that is difficult for her. I spent 25 minutes [id number]-[id number] with the patient of which more than 50% of this time was spent counseling her about above documented issues and discussion. documented in this encounter Plan of Treatment Not on file documented as of this encounter Visit Diagnoses Diagnosis MATT II (cervical intraepithelial neoplasia II)- Primary Moderate dysplasia of cervix documented in this encounter Orders Case Request Count Last Ordered Date First Orde red Date CASE REQUEST OPERATING ROOM 1 02/02/2020 documented in this encounter Care Teams Tactical Intelligence Officer Relationship Specialty Start Date End Date Emily Bejarano APRN [address] [place] [phone] PCP - General 04/30/18 04/25/22 documented as of this encounter
--- OUTSIDE RECORDS SUMMARY | 2024-07-02 18:52 | XMS_ITS | Encounter Summary ---
Author Organization [facility] Address [address] [place] [address] Care Team Providers Care Director Child Abuse Therapy Name Role Phone DarciEmily diaz Lena AWAD Primary Care Provider Perla Zamorano NP Primary Care Provider Reason for Visit * Reason Onset Date Comments Appointment Related 04/25/2022 Encounter Details Date Type Department Care Team (Late st Contact Info) Description 04/25/2022 Telephone [facility] Urology - [facility] [address] [place], [place] [phone] Juan Solitario MD [address] [facility], [address] [place] [address] Appointment Related Social History Tobacco [...] encounter Miscellaneous Notes * Telephone Encounter - Lily Arita - 04/25/2022 1702 EDT FYI: Patient states she is scheduled for an MRI tomorrow and is asking if there is any prep she needs to to do prior to the appt. Patient is asking whether she should eat, take medications. Patient'scall has been transferred to radiology to determine if she can get instructions tonight. Please call. documented in this encounter Plan of Treatment Not on file documented as of this encounter Visit Diagnoses Not on filedocumented in this encounter Care Teams Director Child Abuse Therapy Relationship Specialty Start Date End Date Emily Bejarano APRN [address] [place] [phone] PCP - General 04/30/18 04/25/22 ePrla Zamorano NP [address] [place] [address] PCP - General 04/26/22 documented as of this encounter
--- OUTSIDE RECORDS SUMMARY | 2024-07-02 18:52 | XMS_ITS | Encounter Summary ---
Author Organization [facility] Address [address] [place] [address] Care Team Providers Care Tire Duster Name Role Phone LonaPerla John AUDIO PRODUCTION ENGINEER Primary Care Provider [phone] Encounter Details Date Type Department Care Team (Late st Contact Info) Description 05/01/2022 Lab Requisition [facility] Pathology & Laboratory Medicine - [address] [address] Outr Resulting Lab, Provider Social History Tobacco [...] Priority Date/Time Associated Diagnosis Comments ZZCOVID-19 TEST [facility] PCR Today 05/01/2022 15:15 EDT COVID-19 TESTING Routine 05/01/2022 15:1 5 EDT documented in this encounter Results * COVID-19 TEST [facility] PCR (05/01/2022 15:15 EDT) Swab 05/01/2022 15:1 5 EDT 05/02/2022 16:40 EDT Provider Outr Resulting Lab MICROBIOLOGY - GENERAL ORDERABLES [facility] [address] [place] [address] * COVID-19 TESTING (05/01/2022 15:15 EDT) COVID-19 rt-PCR Result Negative Negative 05/03/2022 11:40 EDT [facility] Comment: This test has [...] epidemiological information. Testing was performed using the natty SARS-CoV-2 assay ([employer] on the Natty 6800 System Performing Lab Natty 6800 [facility] 05/03/2022 11:40 EDT [facility] Swab 05/01/2022 15:1 5 EDT 05/02/2022 16:40 EDT Provider Outr Resulting Lab MICROBIOLOGY - GENERAL ORDERABLES [facility] [address] [place] [address] documented in this encounter Visit Diagnoses Not on filedocumented in this encounter Care Teams Tire Duster Relationship Specialty Start Date End Date Perla Zamorano NP [address] [place] [address] PCP - General 04/26/22 documented as of this encounter
--- OUTSIDE RECORDS SUMMARY | 2024-07-02 18:52 | XMS_ITS | Encounter Summary ---
Author Organization [facility] Address [address] [place] [id number] Care Team Providers Care Data Entry Manager Name Role Phone Perla Zamorano MANNEQUIN MOLD MAKER Primary Care Provider [phone] Reason for Visit * Radiology Services (Routine/Next Available) - Authorization Not Required Specialty Diagnoses / Procedures Referred By Luiza alvarez Referred To Contact Radiology Diagnoses Renal mass Procedures MR ABDOMEN W WO Juan Webster MD [address] [facility], [facility] [address] [place] [address] [facility] Referral ID Status Reason Start Date Expiration Date Visits Requested Visits Authorized [id number] Authorization Not Required 03/22/2022 1 1 Encounter Details Date Type Department Care Team (Latest Contact Info) Description 04/26/2022 9:15 EDT - 04/26/2022 23:59 EDT Hospital Encounter [facility] Center Radiology [facility] [place] [address] Discharge Disposition: Home or Self Care Social [...] 2 Puffs as directed every 4 hours. blood glucose test strips One touch verio meter or any brand compatible with meter and covered by Pt's insurance. Tests QID. 100 Each 3 06/16/2018 IBUPROFEN ORAL Take by mouth. PT states she takes 1000 mg levothyroxine (SYNTHROID) 112 mcg tabletIndications:Take 2 tabs Take 2 tabs by mouth daily. 180 Tab 2 05/29/2018 metFORMIN (GLUCOPHAGE) 500 mg tablet Take 1,000 mg by mouth 2 times daily. diazePAM (VALIUM) 5 mg tablet 1-2 tabs 1 hour prior to procedure. 2 Tablet 04/16/2022 08/17/2022 documented as of this encounter Discharge Disposition Disposition Code Departure Means Destination Home or Self Care documented in this encounter Plan of Treatment Not on file documented as of this encounter Procedures Procedure Name Priority Date/Time Associated Diagnosis Comments MR ABDOMEN W WO CONTRAST Routine 04/26/2022 10:37 EDT Renal mass documented in this encounter Visit Diagnoses Not on filedocumented in this encounter Administered Medications Inactive Administered Medications - up to 3 most recent administrations Medication Order MAR Action Action Date Dose Rate Site gadoterate meglumine solution 1-30 mL 1-30 mL, intravenous, Once in imaging, 1 dose, Starting on Deysi 04/26/22 at 1037, Until Deysi 04/26/22 at 1037, Routine, Imaging Protocol Orders Given 04/26/2022 10:37 EDT 32 mL documented in this encounter Orders Medications Ordered That Sheng ht Not Have Been Administered Count Last Ordered Date First Ordered Date gadoterate meglumine solution 1-30 mL 1 12/2021 documented in this encounter Care Teams Data Entry Manager Relationship Specialty Start Date End Date Perla Zamorano, MANNEQUIN MOLD MAKER [address] [place] [address] PCP - General 04/26/22 documented as of this encounter
--- OUTSIDE RECORDS SUMMARY | 2024-07-02 18:52 | XMS_ITS | Encounter Summary ---
Author Organization [facility] Address [address] [place] [address] Care Team Providers Care Online Editor Name Role Phone Emily Bejarano Lena AWAD Primary Care Provider [phone] Reason for Visit * Reason Onset Date Comments Post-OP Follow Up 05/11/2020 Encounter Details Date Type Department Care Team (Late st Contact Info) Description 05/11/2020 Telephone [facility] Women's Services - [address] [address] Faviola Howard RN Post-OP Follow Up Social History Tobacco Use Types Packs/Day Years [...] encounter Miscellaneous Notes * Telephone Encounter - Faviola Howard RN - 05/11/2020 1139 EDT Date of Surgery: 05/05/2020 Surgical Procedure: Loop electrical excision procedure (LEEP) Discharge Meds/Instructions: Tyl 650 mg Q4 hrs as needed for pain Taking Care of Yourself Nothing in vagina (no tampons, douches, or intercourse) For 2 weeks. Shower only For 2 weeks. No heavy lifting for 2 weeks. Gen'l Status: Okay Pain: Reports has not taken anything as she was not aware of medication. Reports normal/period vaginal pain. Rates 2 out of 10. Educated of APAP Rx. Appetite: Eating okay; normal Bowel Function: Normal Bladder Function: Normal- incontinence episodes but this is baseline Incision: Internal Temp: None Vaginal bleeding: Vagina smells like burnt flesh- like a period smell but more intense, not like aninfection, reports using soap and water to clean vagina. Black discharge when wiping. Reports no discharge in underwear. No abnormal vaginal pain. Notified to call office if bleeding/discharge last more than 14 days to call office. Bleeding/pain precautions: If you have vaginal bleeding that soaks 1 maxipad (or superplus tampon)/hr >2hrs in a row, pass blood clots >= size of golf balls, experience dizziness, lightheadedness, SOB, or severe abdominal pain not helped with medication, then you should have someone take you to the ER. Pathology: pending Plan: Monitor. Given [employer] planisher #[phone] and made aware of 24 hr on-call coverage POV: None Patient reported she would like the survey due to concerns. Provided number to patient advocacy of [phone]. Reports she will wait for survey to complete. Reports concerns with pre-op space/rooming process. This conventional underwriter apologized for this experience. All questions answered at time of call. Requesting results from biopsy and notified that Dr. Austin be in touch regarding this. The patient indicates understanding of these issues and agrees with the plan. FAVIOLA HOWARD RN 05/11/2020 15:33 documented in this encounter Plan of Treatment Not on file documented as of this encounter Visit Diagnoses Not on filedocumented in this encounter Care Teams Online Editor Relationship Specialty Start Date End Date Emily Bejarano APRN [address] [place] [address] PCP - General 04/30/18 04/25/22 documented as of this encounter
--- OUTSIDE RECORDS SUMMARY | 2024-07-02 18:52 | XMS_ITS | Encounter Summary ---
Author Organization [facility] Address [address] [place] [address] Care Team Providers Care Merchandise Presentation Manager Name Role Phone LonaPerla John COREMAKING MACHINE SETTER Primary Care Provider [phone] Reason for Visit * Reason Comments Follow-up MRI Same Day f/u Encounter Details Date Type Department Care Team (Late st Contact Info) Description 04/26/2022 14:00 EDT Office Visit [facility] Urology - [address] [address] Juan Solitario MD [address] [place] [address], [address] [place] [address] Renal mass (Primary Dx) Social [...] Progress Notes * Juan Solitario MD - 04/26/2022 1400 EDT MRI results not available at time of appt. Will reschedule. documented in this encounter Plan of Treatment Not on file documented as of this encounter Visit Diagnoses Diagnosis Renal mass- Primary Unspecified disorder of kidney and ureter documented in this encounter Care Teams Merchandise Presentation Manager Relationship Specialty Start Date End Date Perla Zamorano NP [address] [place] [address] PCP - General 04/26/22 documented as of this encounter
--- OUTSIDE RECORDS SUMMARY | 2024-07-02 18:52 | XMS_ITS | Encounter Summary ---
Author Organization [facility] Address [address] [place] [address] Care Team Providers Care Child Welfare Assistant Name Role Phone JayantPerla tapia John [employer] CONVERTER Primary Care Provider Reason for Visit * Reason Comments Discuss Test Results Encounter Details Date Type Department Care Team (Late st Contact Info) Description 04/27/2022 9:45 EDT Telemedicine [facility] Urology - [address] [address] Juan Solitario MD [address] [facility], [address] [place] [address] Renal mass (Primary Dx) Social [...] Progress Notes * Juan Solitario MD - 04/27/2022 0945 EDT Ms. Fragoso is a 41-year-old woman who was noted to have a complex cystic lesion in the lower pole ofher right kidney on CT scan. 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 This measures 4.1 cm in largest dimension. When extensive discussion regarding the implications finding. This time we went on to talk about treatment options and she is inclined to proceed with a robotic cystoscopy partial nephrectomy. She understands the risks and benefits of the procedure as well as the expected recovery time. She did have some indeterminate subcutaneous lesions in her back which are felt to be extremely unlikely related to her renal mass. These findings will be forwarded to her primary care provider for further monitoring. The patient consented to a telephone encounter. [...] kidney and ureter documented in this encounter Orders Case Request Count Last Ordered Date First Orde red Date CASE REQUEST OPERATING ROOM 1 04/27/2022 documented in this encounter Care Teams Child Welfare Assistant Relationship Specialty Start Date End Date Perla Zamorano NP [address] [place] [address] PCP - General 04/26/22 documented as of this encounter
--- OUTSIDE RECORDS SUMMARY | 2024-07-02 18:52 | XMS_ITS | Encounter Summary ---
Author Organization [facility] Address [address] [place] [address] Care Team Providers Care Relief Operator Name Role Phone Emily Bejarano APRN Primary Care Provider Perla Zamorano NP Primary Care Provider [phone] Encounter Details Date Type Department Care Team (Late st Contact Info) Description 12/15/2020 Lab Requisition [facility] Pathology & Laboratory Medicine - [facility] [address] [place] [address] Outr Resulting Lab, Provider Social History Tobacco [...] ORDER STANDALONE - BROAD COVID TEST Today 12/14/2020 13:00 EST COVID-19 TESTING Routine 12/14/2020 13:0 0 EST documented in this encounter Results * DO NOT ORDER STANDALONE - BROAD COVID TEST (12/14/2020 13:00 EST) COVID-19 rt-PCR Result NEGATIVE Negative 12/16/2020 19:27 EST [facility] Comment: 2019-novel Coronavirus (2019-nCoV) not detected [...] in accordance with CLIA regulations, [employer] [place] [employer] (CAP) guidelines (Feb 11, 2020), and FDA guidance (Jan 23, 2020). This test is only for use under the Food and Drug Administration's Emergency Use Authorization. Swab ENTIRE NASOPHARYNX / Unknown 12/14/2020 13:00 EST 12/15/2020 16:01 EST Provider Outr Resulting Lab MICROBIOLOGY - GENERAL ORDERABLES [facility] [place] [place] * COVID-19 TESTING (12/14/2020 13:00 EST) COVID-19 rt-PCR Result NEGATIVE Negative 12/16/2020 22:06 EST [facility] Comment: 2019-novel Coronavirus (2019-nCoV) not detected [...] in accordance with CLIA regulations, [employer] [place] [employer] (CAP) guidelines (Feb 11, 2020), and FDA guidance (Jan 23, 2020). This test is only for use under the Food and Drug Administration's Emergency Use Authorization. Performing Lab [facility] 12/16/2020 22:06 EST [facility] Swab 12/14/2020 13:0 0 EST 12/15/2020 16:01 EST Provider Outr Resulting Lab MICROBIOLOGY - GENERAL ORDERABLES [facility] [address] [place] [address] [facility] [place] documented in this encounter Visit Diagnoses Not on filedocumented in this encounter Care Teams Relief Operator Relationship Specialty Start Date End Date Emily Bejarano APRN [address] [place] [id number] PCP - General 04/30/18 04/25/22 Perla Zamorano NP [address] [place] [address] PCP - General 04/26/22 documented as of this encounter
--- OUTSIDE RECORDS SUMMARY | 2024-07-02 18:52 | XMS_ITS | Encounter Summary ---
Author Organization [facility] Address [address] [place] [address] Care Team Providers Care Front Maker Name Role Phone Emily Bejarano Lena AWAD Primary Care Provider [phone] Encounter Details Date Type Department Care Team (Latest Contact Info) Description 05/05/2020 Travel Social History Tobacco Use Types Packs/Day [...] on filedocumented in this encounter Care Teams Front Maker Relationship Specialty Start Date End Date Emily Bejarano APRN [address] [place] [id number] PCP - General 04/30/18 04/25/22 documented as of this encounter
--- OUTSIDE RECORDS SUMMARY | 2024-07-02 18:52 | XMS_ITS | Encounter Summary ---
Author Organization [facility] Address [address] [place] [address] Care Team Providers Care Political Analyst Name Role Phone Emily Bejarano Lena AWAD Primary Care Provider [phone] Reason for Referral * (Routine) - New Request Specialty Diagnoses / Procedures Referred By [facility] Referred To Contact Parris Glasgow MD [address] [place] [address] Referral ID Status Reason Start Date Expiration Date Visits Requested Visits Authorized [id number] New Request Specialty Services Required 05/05/[address] Dejesus will call to discuss your results. * (Routine) - New Request Specialty Diagnoses / Procedures Referred By [facility] Referred To Contact Parris Glasgow MD [address] [place] [address] Referral ID Status Reason Start Date Expiration Date Visits Requested Visits Authorized [id number] New Request Specialty Services Required 05/05/2020 1 1 Comments Call 911 anytime you think you may need emergency care. For example, call if: - You passed out (lost consciousness). - You have severe trouble breathing. - You have sudden chest pain and shortness of breath, or you cough up blood. Call your doctor now or seek immediate medical care if: - You have bright red vaginal bleeding that soaks one or more pads in an hour for two consecutive hours, or you have large clots. - You have foul-smelling discharge from your vagina. - You are sick to your stomach or cannot keep fluids down. - You have pain that does not get better after you take pain medicine. - You have signs of infection, such as: - Increased pain, swelling, warmth, or redness. - A fever greater than 100.4 degrees F (38 degrees C). - You have signs of a blood clot, such as: - Pain in your calf, back of the knee, thigh, or groin. - Redness and swelling in your leg or groin. - You have trouble passing urine or stool, especially if you have pain or swelling in your lower belly. Watch closely for changes in your health, and be sure to contact your doctor if: - You do not have a bowel movement after taking a laxative. - You have hot flashes, sweating, flushing, or a fast heartbeat, but no fever. Reason for Visit * Auth/Cert Specialty Diagnoses / Procedures Referred By Luiza t Referred To Contact Diagnoses MATT II (cervical intraepithelial neoplasia II) Procedures FL CONIZATION CERVIX,LOOP ELECTRD Loop electrical excision procedure (LEEP) Referral ID Status Reason Start Date Expiration Date Visits Re quested Visits Authorized [id number] 1 1 Encounter Details Date Type Department Care Team (Late st Contact Info) Description 05/05/2020 10:41 EDT - 05/05/2020 16:48 EDT Hospital Encounter [facility] OR [address] [place] [address] [id number] Luli Dejesus MD [address] [place] [address] [address] [place] [address] Discharge Disposition: Home or Self Care Social [...] 10:41 EDT documented as of this encounter Last Filed Vital Signs Vital Sign Reading Time Taken Comments Blood Pressure 137/76 05/05/2020 1630 EDT Pulse - - Temperature 36.6 ??C (97.9 ??F) 05/05/2020 1630 EDT Respiratory Rate 17 05/05/2020 1630 EDT Oxygen Saturation 100% 05/05/2020 1630 EDT Inhaled Oxygen Concentration - - Weight 164.1 kg (361 lb 12.4 oz) 05/05/2020 1136 EDT Height - - Body Mass Index 51.91 04/25/2020 1106 EDT documented in this encounter Functional Status [...] insurance. Tests QID. 100 Each 3 06/16/2018 levothyroxine (SYNTHROID) 112 mcg tabletIndications:Take 2 tabs Take 2 tabs by mouth daily. 180 Tab 2 05/29/2018 metFORMIN (GLUCOPHAGE) 500 mg tablet Take 1,000 mg by mouth 2 times daily. documented as of this encounter Discharge Disposition Disposition Code Departure Means Destination Home or Self Care Wheelchair Home documented in this encounter Progress Notes * Morgan Baca LICSW - 05/05/2020 1151 EDT Provided patient with gas card so she could safely return home. JULIAN GAMEZ * Carly Trotter, ARVIND - 05/05/2020 1138 EDT Spoke with Morgan Keven in social work. Pt is requesting gas money to get home after her procedure.Morgan will come see pt in pre-op. documented in this encounter H&P Notes * Parris Glasgow MD - 05/05/2020 1233 EDT The preoperative history and physical which was performed within 30 days of this procedure has been reviewed and the clinically appropriate elements of the physical examination have been repeated. 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 Prior ARELI/vulvar condyloma not seen at colposcopy 11/2019. Patient's cervix is high and retropubic making office treatment not possible. Cervical treatment planned for OR. Smoker. HPV hx: 2000 ASCUS 2008, 2009, 2010 neg paps 02/2018 pap neg, HPV pos 05/2019 LSIL, HPV pos, vulvar bx LIEN I /condyloma 11/2019 colpo: ECC- MATT II, vag bx condyloma, cx bx neg. Past OBHx: 1 , 2 Csections PMH PSH Past Medical History: Diagnosis Date ??? Anxiety ??? Arthritis 04/25/20 knees and spine ??? Asthma 05/01/2020, chronic cough, baseline ??? Depression stopped prozac 08/2011 when discovered ??? Diabetes mellitus affecting in first trimester 04/30/2018 ??? Diabetes mellitus, type 2 ([facility]) 04/25/20 managed with [id number] ??? Exercise involving walking 04/25/20 has [...] ??? Vertigo 04/25/20 gets when has migranes Past Surgical History: Procedure Laterality Date ??? SECTION 2009,2018 uvm and [facility] ??? COSMETIC SURGERY 4 yr old to face and forhead Social History Family History Social History Tobacco Use ??? Smoking status: Current Every Day Smoker Packs/day: 0.50 ??? Smokeless tobacco: Never Used ??? Tobacco comment: smoking 5- pack per day Substance Use Topics ??? Alcohol use: No Family History Problem Relation Age of Onset ??? Cancer Mother ??? Heart Disease Father ??? Substance Abuse Father ??? Miscarriages / Stillbirths Paternal Grandmother Medications Current Outpatient Medications: ??? acetaminophen (TYLENOL) 325 mg tablet, Take 2 Tabs by mouth every 4 hours as needed for Pain., Disp: 300 Tab, Rfl: 5 ??? acetaminophen-codeine (TYLENOL #3) 300-30 mg per tablet, Take 1 Tab by mouth every 4 hours as needed for Pain., Disp: 10 Tab, Rfl: 0 ??? albuterol (PROVENTIL HFA, VENTOLIN HFA) 90 mcg/Actuation inhaler, Inhale 2 Puffs as directed every 4 hours., Disp: , Rfl: ??? blood glucose test strips, One touch verio meter or any brand compatible with meter and coveredby Pt's insurance. Tests QID. (Patient not taking: Reported on 12/01/2019), Disp: 100 Each, Rfl: 3 ??? levothyroxine (SYNTHROID) 112 mcg tablet, Take 2 tabs by mouth daily., Disp: 180 Tab, Rfl: 2 ??? metFORMIN (GLUCOPHAGE) 500 mg tablet, Take 500 mg by mouth at bedtime., Disp: , Rfl: Allergies Allergies Allergen Reactions ??? Dilaudid [Hydromorphone] itching ??? Morphine Hives Objective/Physical Exam: Vital and exam day of surgery in pre op. COVID 19 neg - 04/07/20 ASSESSMENT and PLAN: 1) MATT 2 on ECC. Unable to perform office treatment due to cervical location. Will perform LEEP cone in OR. The procedure, alternatives, risks and benefits were reviewed with the patient. Reviewed risk of bleeding, scarring of cervix and infection. The operative consent was signed 02/02/20. Recoveryand post operative follow up were also reviewed. Surgical compression devices Luli Dejesus MD 05/04/2020 9:37 documented in this encounter Nursing Notes * Mallory Steinberg RN - 05/05/2020 1398 EDT The Patient Declines testing for prior to the Surgery/ Procedure. The following were Explained to the Patient: ?? Testing is done to minimize the risk of potential adverse effects of Anesthesia/ Surgery on a developing fetus ?? It is a [facility] Policy to test all females who are having menstrual periods ?? It is for their safety and that of a developing fetus should they be ?? The Patient does have the right to decline and understands the risks of not obtaining the test The Surgeon Lena Colby MD and Anesthesiologist Neo Suhltz were notified. * Juanita Conner RN - 05/05/2020 1047 EDT COVID 19 Screening Perioperative PreOp Surgical Waiting Area Screening: Patient and Family will be screened at designated points of entry to [facility] Patient and Family will be screened again at entrance to Surgical Waiting Area by PreOp Screening RNs Smart phrase: .SWACOVIDS ??? Confirm patient and visitor have a mask (ensure if patient has homemade mask that it fits appropriately) ??? PreOp Screening RN asks screening questions including (recent or chronic): pt notes she has a cough- well, i'm a smoker and I have asthma. Pt did not have a covid test. - Cough - Runny nose - SOB - Fever/Chills - Muscle pain - Chest congestion - Cold - Loss of taste/ smell - Diarrhea ? ? Temperature assessed: Temp > 38.0 is considered febrile ??? If patient or visitor screens positive for any symptoms: (consistent with entry screening procedures) 1. Ask the patient if they have been recently tested for COVID- 19 within the past 48hr and verify COVID test status 2. Confirm the symptom is not new within 48 hour/testing period - If negative result and no new symptoms since being testing, you do not need to page anesthesia toassess and should proceed as regular admission (NOT PUI) - If no result and/or new symptom since 48 hour/testing period proceed as PUI (Steps 3-4 below) 3. Place patient and family in consult room. 4. Page anesthesia charge to come and evaluate patient. After assessment the Anesthesia Charge needs to collaborate with the Surgeon to create a plan/recommendation as to whether surgery should proceed. See below for possible recommendations and guidelines. ??? Anesthesia in collaboration with Surgery Team recommends: ??? Surgery is deemed non emergent/non urgent. Proceed to cancel surgery: ??? Follow cancellation protocol - procedure not performed -Use COVID smart phrase to document planfor cancellation (.SWACOVIDS) ??? The patient needs formal testing for COVID at one of the ambulatory sites - Patient's primary care to order formal testing and monitor results ??? Surgery is deemed emergent/urgent. Proceed with surgery and treat patient as PUI: ??? Prior to starting patient care, Care team huddle to take place. Ensure everyone understands plan of course/care for patient. Care Team includes but not limited to: PreOp TL, PreOp bedside RN, PACU director organizational, Anesthesia and Surgeon. Managers as needed. ??? For stable PUI patients, Droplet Precautions will be donned by staff. This assumes that NO aerosolizing procedure is being conducted. (See attachment of aerosolizing events) ??? PreOp TL confirm PreOp Care Team (Clean and Dirty RN) ensures negative pressure room and fully stocked isolation cart are available. PreOp Care team responsible for room set up. ??? PreOp Receiving (?ecoming dirty?? ) RN to receive patient from [facility] room in Droplet Precaution PPE and transport patient to designated room. Ensure patient is wearing a mask prior to transport. ??? PreOp Screening RN to document using [place] smart phrase (.SWACOVIDS) ??? If patient is stable PUI, Dirty RN is not required to stay in room for duration of care. PPE must be doffed prior to exiting the room, and hand hygiene performed. New PPE will need to be donned prior to reentering room- minimize exiting and reentering to conserve PPE. ??? If deemed patient needs to be treated as PUI- visitor must return to their vehicle and wait forphone call unless special circumstances (Child, cognitive impairment, and four roll calender operator). Pt temp:36.0 Visitor Temp: na Visitor Name:na (If visitor is asked to wait in vehicle, please document visitor contacts in Epic) RN's to explain visitor policy: Visitor Policy OP- one visitor in WR, no visitors in PeriOp Exceptions: Child-1 parent, special needs- 1 caregiver IP- One visitor in WR, no visitors in PeriOp, visitor to leave after surgeon consult No children <16 yo in [facility]. Dr. Gutierrez to [facility] to assess pt. Per , ok to proceed with surgery. JUANITA CONNER RN documented in this encounter OR Notes * OR Surgeon - Luli Dejesus MD - 05/05/2020 6788 EDT FORMAL OPERATIVE REPORT Date: 05/05/2020 Attending: Luli Dejesus MD Meat Team Member: Parris Glasgow MD Pre-op diagnosis: Cervical intraepithelial neoplasia 2 on ECC Post-op diagnosis: Same Indications: 39 y.o., tobacco smoker with hx of MATT 2 on ECC and a vaginal wart which was removed. Prior ARELI/vulvar condyloma not seen at colposcopy 11/2019. Patient's cervix is high and retropubic making office treatment not possible. Of note, she had contraception of bilateral salpingectom y. Her history of abnormal paps is as follows: 2000 ASCUS 2008, 2009, 2010 neg paps 02/2018 pap neg, HPV pos 05/2019 LSIL, HPV pos, vulvar bx LIEN I /condyloma 11/2019 colpo: ECC- MATT II, vag bx condyloma, cx bx neg. Risks, benefits, alternatives of the procedure were discussed with the patient and she agreed to the above procedure. ?? Procedure: Loop electrical excision procedure and endocervical curettage Anesthesia: sedation, 1% lidocaine with epinephrine Findings: 1. Cervix fully visualized. Transformation zone not visualized. No acetowhite changes with application of ascetic acid. No lesions visualized. Lugol's staining throughout external cervix. Narrative: The patient was taken to the OR with IV in place where safety checklist was performed with the patient awake and participatory. After sedation, patient was positioned in the dorsal lithotomy position. The coated speculum was used to visualize the cervix. Ascetic acid was applied to the ce rvix, followed by Lugol's, with findings as above with the use of the colposcope. 20 cc of 1% lidocaine with epinephrine was injected into the cervix circumferentially. The 15 x 8 mm baez loop electrode was then used to excise the ectocervix in one pass. The 10 x 10 mm loop electrode was then used to excise the endocervix as a top hat in one pass. An ECC was then performed. The ball cautery was then used to achieve hemostasis. Monsels was then applied to the cervix. There was good hemostasis noted. The speculum was removed from the vagina. The patient was taken out of the dorsal lithotomy position. She was awoken from sedation. All sponge, needle, and lap counts were correct x 2. She was taken to the recovery room in stable condition. Dr. Dejesus was present throughout. Blood loss: minimal Fluids: 500 cc Urine output: none Specimens: ectocervix, endocervix, endocervical curettage Drains/Packs/Foreign object retained: none Complications: none ?? Condition: stable Disposition: PACU, then home Parris Glasgow MD 05/05/2020 21:52 PGY3, OBGYN Pager #[phone] Attestation statement: I was present during the entire procedure and agree with the resident's note. Luli Dejesus MD 05/09/2020 12:06 documented in this encounter Miscellaneous Notes * Brief Op Note - Parris Glasgow MD - 05/05/2020 8385 EDT Brief Operative Note Date: 05/05/2020 Attending: Luli Dejesus MD Meat Team Member: Parris Glasgow MD Pre-op diagnosis: Cervical intraepithelial neoplasia 2 on ECC Post-op diagnosis: Same Procedure: Loop electrical excision procedure and endocervical curettage Anesthesia: sedation, 1% lidocaine with epinephrine Findings: 1. Cervix fully visualized. Transformation zone not visualized. No acetowhite changes with application of ascetic acid. No lesions visualized. Lugol's staining throughout external cervix. Blood loss: minimal Fluids: 500 cc Urine output: none Specimens: ectocervix, endocervix, endocervical curettage Drains/Packs/Foreign object retained: none Complications: none Condition: stable Disposition: PACU, then home See dictated operative report for more details Parris Glasgow MD 05/05/2020 16:08 PGY3, OBGYN Pager #[phone] documented in this encounter Plan of Treatment Scheduled Referrals Name Type Priority Associated Diagnoses Order Schedule PROVIDER FOLLOW-UP INSTRUCTIONS Outpatient Referral Routine Ordered: 05/05/2020 PROVIDER FOLLOW-UP INSTRUCTIONS Outpatient Referral Routine Ordered: 05/05/2020 documented as of this encounter Procedures Procedure Name Priority Date/Time Associated Diagnosis Comments SURGICAL PATHOLOGY Routine 05/05/2020 15 :40 EDT CONE BIOPSY, CERVIX, USING LEEP IF INDICATED 05/05/2020 14:44 EDT MATT II (cervical intraepithelial neoplasia II) COMPLETE BLOOD COUNT STAT 05/05/2020 13:00 EDT POCT GLUCOSE, INTERFACED Routine 05/05/2020 12:24 EDT documented in this encounter Results * SURGICAL PATHOLOGY (05/05/2020 15:40 EDT) Final Diagnosis A. ECTOCERVIX, LOOP ELECTROSURGICAL EXCISION PROCEDURE: - Mature appearing squamous mucosa with reactive changes including parakeratosis. - Negative for squamous intraepithelial lesion. B. ENDOCERVIX, TOP HAT, LOOP ELECTROSURGICAL EXCISION PROCEDURE: - Unremarkable squamous metaplasia. - Negative for squamous intraepithelial lesion. C. ENDOCERVIX, CURETTAGE: - Detached fragment of squamous metaplasia with atypia. See comment. 05/11/2020 11:55 EDT [facility] at 1155 Attestation There was significant resident/fellow involvement in the diagnostic evaluation of this case. By the signature below, the attending physician certifies that they have personally conducted a gross and/or microscopic examination of the described specimens and rendered or confirmed the above diagnosis. 05/11/2020 11:55 EDT [facility] at 1155 Diagnosis Comment P16 ([id number], [place]) immunostaining was attempted on the focus of atypical squamous metaplasia on the ECC, but the focus is no longer present on the immunostain, thus the presence of high grade squamous intraepithelial lesion cannot be confirmed. NOTE: One or more of the reagents [...] performance characteristics have been determined by [facility] and/or by the referring laboratory. The [...] to perform high complexity clinical laboratory testing. 05/11/2020 11:55 EDT [facility] Clinical History MATT II (cervical intraepithelial neoplasia II) 05/11/2020 11:55 T [facility] Gross Description A. Received in normal saline labelled with proper patient identification (initials P, E) and ectocervix is a non oriented cervical tissue, 2.4 x 1.8 cm and excised to a depth of up to 0.8 cm. The ectocervix is dull sharma. A patent os is present. Gross lesions are not identified. Obvious endocervical mucosa is not identified. The margins are inked with black representing endocervical margin and blue representing ectocervical margin. The specimen is radially sectioned and entirely submitted as consecutive sections in A1-A5. B. Received in normal saline labelled with proper patient identification (initials P, E) and endocervix, ink ivan is a 1.5 cm in diameter cervical tissue consistent with top hat, measuring up to 0.5 cm in thickness. A patent endocervical canal is present. Mass lesions are not identified. One surface which shows non designated orienting ink appears to represent new deep margin. This surface is inked blue. The old margin is inked black. Radially sectioned and entirely submitted as consecutive sections in B1-B4. C. Received in normal saline labelled with proper patient identification (initials P, E) and ECC is an aggregate of blood and mucus, 0.5 x 0.3 x 0.1 cm. Entirely submitted in C1. Kala Valenzuela 05/06/2020 10:08 05/11/2020 11:55 EDT [facility] Resident/Collins w: Gordon Still MD 05/11/2020 11:55 T [facility] Scanned Images 05/11/2020 11:55 T [facility] Tissue ENTIRE WALL OF CERVIX / Unknown 05/05/2020 15:40 EDT 05/05/2020 22:11 EDT Tissue specimen (specimen) CERVIX UTERI STRUCTURE / Unknown 05/05/2020 15:40 EDT 05/05/2020 22:11 EDT Tissue specimen (specimen) ENDOCERVICAL STRUCTURE / Unknown 05/05/2020 15:40 EDT 05/05/2020 22:11 EDT Luli Dejesus MD PATHOLOGY ORDERABL ES Performing Organization Address City/[facility]/ZIP Co de Phone Number [facility] [address] [place] [address] * (ABNORMAL) COMPLETE BLOOD COUNT (05/05/2020 13:00 EDT) WBC 12.29 4.00 - 12.40 K/cmm 05/05/2020 13:11 EDT [facility] RBC 4.47 3.86 - 5.04 M/cmm 05/05/2020 13:11 [facility] Hemoglobin 12.0 11.6 - 15.2 gm/dL 05/05/2020 13:11 [facility] HCT 36.7 34.9 - 44.4 % 05/05/2020 13:11 [facility] MCV 82 81 - 98 fl 05/05/2020 13:11 T [facility] MCH 26.8 26.7 - 33.3 pg 05/05/2020 13:11 [facility] MCHC 32.7 32.1 - 35.9 gm/dL 05/05/2020 13:11 [facility] RDW-CV 14.1 <14.7 % 05/05/2020 13:11 [facility] RDW-SD 41.9 <50.4 fl 05/05/2020 13:11 [facility] PLT 316 141 - 377 K/cmm 05/05/2020 13:11 [facility] MPV 9.4(L) 9.5 - 12.7 fl 05/05/2020 13:11 [facility] Blood VENOUS BLOOD / Unknown Venipuncture / Unknown 05/05/2020 13:00 EDT 05/05/2020 13:04 EDT Parris Glasgow MD HEMATOLOGY & PF4 ORD ERABLES [facility] [address] [place] [address] * (ABNORMAL) POCT GLUCOSE, INTERFACED (05/05/2020 12:24 EDT) Glucose, POC 107(H) 70 - 100 mg/dL 05/05/2020 12:29 EDT [facility] flooring helper ID [id number] 05/05/2020 12:29 EDT [facility] HN LAB POC COMMENT (GLUCOSE) Test Performed by Nursing Services 05/05/2020 12:29 EDT [facility] Blood CAPILLARY BLOOD / Unknown 05/05/2020 12:24 EDT 05/05/2020 12:29 EDT Luli Dejesus MD POINT OF CARE TEST ORDERABLES [facility] [address] [place] [address] documented in this encounter Visit Diagnoses Diagnosis MATT II (cervical intraepithelial neoplasia II)- Primary Moderate dysplasia of cervix documented in this encounter Admitting Diagnoses Diagnosis MATT II (cervical intraepithelial neoplasia II) Moderate dysplasia of cervix documented in this encounter Administered Medications Inactive Administered Medications - up to 3 most recent administrations Medication Order MAR Action Action Date Dose Rate Site acetaminophen (TYLENOL) tablet 650 mg 650 mg, oral, EVERY 4 HOURS PRN, Starting on Deysi 05/05/20 at 1234, Until Deysi 05/05/20 at 1848, Pain, Routine Given 05/05/2020 13:32 EDT 650 mg atropine 0.1 mg/mL syringe 0.5 mg 0.5 mg, intravenous, PRN, Starting on Deysi 05/05/20 at 1525, Until Deysi 05/05/20 at 1848, Symptomatic HR < 50, Routine, Recovery (only) chlorhexidine gluconate 2 % cloth 1 Each 1 Each, topical, DAILY, 1 dose, First dose on Deysi 05/05/20 at 1200, Routine, Preprocedure Given 05/05/2020 11:56 EDT 1 Each chlorhexidine gluconate 2 % cloth 1 Each 1 Each, topical, PRN, 1 dose, Starting on Deysi 05/05/20 at 1132, Until Deysi 05/05/20 at 1327, Other, PRN dose to be used if the patient did not apply first dose of chlorhexidine prior to arrival, Routine, Preprocedure Given 05/05/2020 13:27 EDT 1 Each Abdomen dextrose 50 % solution 12.5 g 12.5 g, intravenous, PRN, Starting on Deysi 05/05/20 at 1132, Until Deysi 05/05/20 at 1848, Low Blood Sugar, Routine, Preprocedure fentaNYL citrate (PF) injection 25-50 mcg 25-50 mcg, intravenous, EVERY 5 MIN PRN, Starting on Deysi 05/05/20 at 1525, Until Deysi 05/05/20 at 1848, Pain, Routine, Recovery (only) glucagon injection 1 mg 1 mg, intramuscular, PRN, Starting on Deysi 05/05/20 at 1132, Until Deysi 05/05/20 at 1848, Low Blood Sugar, Routine, Preprocedure lactated ringers (LR) infusion at 25 mL/hr, intravenous, CONTINUOUS, Starting on Deysi 05/05/20 at 1200, Until Deysi 05/05/20 at 1848, Routine, Preprocedure Continued by Anesthesia 05/05/2020 14:42 EDT New Bag 05/05/2020 13:26 EDT 25 mL/hr IV lactated ringers (LR) infusion at 30 mL/hr, intravenous, CONTINUOUS, Starting on Deysi 05/05/20 at 1545, Until Deysi 05/05/20 at 1848, Routine, Recovery (only) lidocaine (PF) 10 mg/mL (1 %) injection 2 mg 2 mg, intradermal, PRN, 4 doses, Starting on Deysi 05/05/20 at 1132, Until Deysi 05/05/20 at 1848, peripheral intravenous catheter placement, Routine, Preprocedure naloxone (NARCAN) injection 0.2 mg 0.2 mg, intravenous, PRN, Starting on Deysi 05/05/20 at 1525, Until Deysi 05/05/20 at 1848, Opioid Reversal, Routine, Recovery (only) nicotine (NICODERM CQ) 14 mg/24 hr patch 1 Patch 1 Patch, transdermal, DAILY, First dose on Deysi 05/05/20 at 1300, Until Discontinued, Routine Patch Applied 05/05/2020 14:11 EDT 1 Patch Right Arm documented in this encounter Discontinued Medications Medication Sig Discontinue Reason Start Date End Da te acetaminophen-codeine (TYLENOL #3) 300-30 mg per tablet Take 1 Tab by mouth every 4 hours as needed for Pain. 09/17/2011 05/05/2020 documented as of this encounter Active and Recently Administered Medications Times are shown in EDT. Scheduled Medication Order 05/03/2020 05/04/2020 05/05/2020 chlorhexidine gluconate 2 % cloth 1 Each (COMPLETED) 1 Each, topical, DAILY, 1 dose, First dose on Deysi 05/05/20 at 1200, Routine, Preprocedure 1156 (Given - Provid er: Mary Farooq RN) nicotine (NICODERM CQ) 14 mg/24 hr patch 1 Patch 1 Patch, transdermal, DAILY, First dose on Deysi 05/05/20 at 1300, Until Discontinued, Routine 1411 (Patch Applied - Provider: Mallory Steinberg RN)2100 (Due: Patch Removed - Provider: Mallory Steinberg RN) Continuous Medication Order 05/03/2020 05/04/2020 05/05/2020 lactated ringers (LR) infusion at 25 mL/hr, intravenous, CONTINUOUS, Starting on Deysi 05/05/20 at 1200, Until Deysi 05/05/20 at 1848, Routine, Preprocedure 1326 (New Bag - Prov ider: Mallory Steinberg RN)1442 (Continued by Anesthesia - Provider: Alexy Gold MD)1507 (Anesthesia Volume Adjustment - Provider: Alexy Gold MD)1558 (Anesthesia Volume Adjustment - Provider: Alexy Gold MD) lactated ringers (LR) infusion at 30 mL/hr, intravenous, CONTINUOUS, Starting on Deysi 05/05/20 at 1545, Until Deysi 05/05/20 at 1848, Routine, Recovery (only) 1556 (Continued Infu kelli - Provider: Johana Richardson RN)1618 (Completed - Provider: Johana Richardson, ARVIND) PRN Medication Order 05/03/2020 05/04/2020 05/05/2020 acetaminophen (TYLENOL) tablet 650 mg 650 mg, oral, EVERY 4 HOURS PRN, Starting on Deysi 05/05/20 at 1234, Until Deysi 05/05/20 at 1848, Pain, Routine 1332 (Given - Provid er: Mallory Steinberg RN) atropine 0.1 mg/mL syringe 0.5 mg 0.5 mg, intravenous, PRN, Starting on Deysi 05/05/20 at 1525, Until Deysi 05/05/20 at 1848, Symptomatic HR < 50, Routine, Recovery (only) chlorhexidine gluconate 2 % cloth 1 Each (COMPLETED) 1 Each, topical, PRN, 1 dose, Starting on Deysi 05/05/20 at 1132, Until Deysi 05/05/20 at 1327, Other, PRN dose to be used if the patient did not apply first dose of chlorhexidine prior to arrival, Routine, Preprocedure 1327 (Given - Provid er: Mallory Steinberg RN) dextrose 50 % solution 12.5 g 12.5 g, intravenous, PRN, Starting on Deysi 05/05/20 at 1132, Until Deysi 05/05/20 at 1848, Low Blood Sugar, Routine, Preprocedure fentaNYL citrate (PF) injection 25-50 mcg 25-50 mcg, intravenous, EVERY 5 MIN PRN, Starting on Deysi 05/05/20 at 1525, Until Deysi 05/05/20 at 1848, Pain, Routine, Recovery (only) glucagon injection 1 mg 1 mg, intramuscular, PRN, Starting on Deysi 05/05/20 at 1132, Until Deysi 05/05/20 at 1848, Low Blood Sugar, Routine, Preprocedure lidocaine (PF) 10 mg/mL (1 %) injection 2 mg 2 mg, intradermal, PRN, 4 doses, Starting on Deysi 05/05/20 at 1132, Until Deysi 05/05/20 at 1848, peripheral intravenous catheter placement, Routine, Preprocedure lidocaine-EPINEPHrine 1 %-1:100,000 injection (CANCELED) As needed, Starting on Deysi 05/05/20 at 1525, Until Deysi 05/05/20 at 1527, Routine, Intraprocedure 1525 (Given - Provid er: Parris Glasgow MD) naloxone (NARCAN) injection 0.2 mg 0.2 mg, intravenous, PRN, Starting on Deysi 05/05/20 at 1525, Until Deysi 05/05/20 at 1848, Opioid Reversal, Routine, Recovery (only) documented in this encounter Orders Medications Ordered That Sheng ht Not Have Been Administered Count Last Ordered Date First Ordered Date atropine 0.1 mg/mL syringe 0.5 mg 1 020 chlorhexidine gluconate 2 % cloth 1 Each 1 05/05/2020 dextrose 50 % solution 12.5 g 1 05/05/2020 fentaNYL citrate (PF) injection 25-50 mcg 1 05/05/2020 glucagon injection 1 mg 1 05/05/2020 lactated ringers (LR) infusion 1 05/05/2020 lidocaine (PF) 10 mg/mL (1 % ) injection 2 mg 1 05/05/2020 lidocaine-EPINEPHrine 1 %-1: 100,000 injection 1 05/05/2020 naloxone (NARCAN) injection 0.2 mg 1 2019 Diet Count Last Ordered Date First Orde red Date DISCHARGE DIET 1 05/05/2020 Nursing Count Last Ordered Date First Orde red Date ACTIVITY INSTRUCTIONS 1 05/05/2020 BATHING INSTRUCTIONS 1 05/05/2020 Discharge Count Last Ordered Date First Orde red Date DISCHARGE PATIENT 1 05/05/2020 documented in this encounter Care Teams Political Analyst Relationship Specialty Start Date End Date Emily Bejarano APRN [address] [place] [address] PCP - General 04/30/18 04/25/22 documented as of this encounter
--- OUTSIDE RECORDS SUMMARY | 2024-07-02 18:52 | XMS_ITS | Encounter Summary ---
Author Organization [facility] Address [address] [place] [address] Care Team Providers Care Trailers And Motor Homes Salesperson Name Role Phone Emily Bejarano DELMI Primary Care Provider Reason for Visit * Reason Onset Date Comments Results 05/16/2020 Encounter Details Date Type Department Care Team (Late st Contact Info) Description 05/16/2020 Telephone [facility] Women's Services - [address] [phone] Luli Dejesus MD [address] [facility], [facility] [address] [place] [address] Results Social History Tobacco Use Types Packs/Day Years [...] encounter Miscellaneous Notes * Telephone Encounter - Luli Dejesus MD - 05/23/2020 0601 EDT Patient called with results. Told no clear MATT on surgical specimens. It either regressed or was higher in canal. It would be difficult to do another LEEP and she might need a cone procedure if follow up testing is still positive. Recommend pap, HPV and ECC in 6 months.Patient seemed to understand but was distracted by a child and had to abruptly hang up. Will ask PSS to schedule appt and put herin tickler. Final Diagnosis A. ECTOCERVIX, LOOP ELECTROSURGICAL EXCISION PROCEDURE: - Mature appearing squamous mucosa with reactive changes including parakeratosis. - Negative for squamous intraepithelial lesion. ?? B. ENDOCERVIX, TOP HAT, LOOP ELECTROSURGICAL EXCISION PROCEDURE: - Unremarkable squamous metaplasia. - Negative for squamous intraepithelial lesion. ?? C. ENDOCERVIX, CURETTAGE: - Detached fragment of squamous metaplasia with atypia. See comment. ? documented in this encounter Plan of Treatment Not on file documented as of this encounter Visit Diagnoses Not on filedocumented in this encounter Care Teams Trailers And Motor Homes Salesperson Relationship Specialty Start Date End Date Emily Bejarano APRN [address] [place] [address] PCP - General 6/6/18 6/1/22 documented as of this encounter
--- OUTSIDE RECORDS SUMMARY | 2024-07-02 18:52 | XMS_ITS | Encounter Summary ---
Author Organization [facility] Address [address] [place] [address] Care Team Providers Care Carrot Harvester Name Role Phone Emily Bejarano APRN Primary Care Provider [phone] Reason for Visit * (Routine/Next Available) - Receiving Office to Obtain Authorization Specialty Diagnoses / Procedures Referred By Luiza alvarez Referred To Contact Procedures CT OUTSIDE IMAGES BODY Unknown, Provider, Referral ID Status Reason Start Date Expiration Date Visits Requested Visits Authorized [id number] Receiving Office to Obtain Authorization 03/06/2022 1 1 Encounter Details Date Type Department Care Team (Latest Contact Info) Description 03/03/2022 - 03/03/2022 23:59 EDT Hospital Encounter [facility] Secondary Reads [place] Discharge Disposition: [...] Date/Time Associated Diagnosis Comments CT OUTSIDE IMAGES BODY Routine 03/06/2022 11:12 EDT documented in this encounter Results * CT OUTSIDE IMAGES BODY (03/06/2022 11:12 EDT) Narrative 03/06/2022 11:12 EDT This is a non-reportable exam. Provider Unknown MD [facility] OTHER IMAGING OR DERABLES documented in this encounter Visit Diagnoses Not on filedocumented in this encounter Care Teams Carrot Harvester Relationship Specialty Start Date End Date Emily Bejarano, DELMI [address] [place] [phone] PCP - General 04/30/18 04/25/22 documented as of this encounter
--- OUTSIDE RECORDS SUMMARY | 2024-07-02 18:52 | XMS_ITS | Encounter Summary ---
Author Organization [facility] Address [address] [place] [address] Care Team Providers Care Taxation Economist Name Role Phone Emily Bejarano Lena AWAD Primary Care Provider [phone] Reason for Visit * Reason Onset Date Comments Appointment Related 02/02/2020 Encounter Details Date Type Department Care Team (Late st Contact Info) Description 02/02/2020 Telephone [facility] Women's Services - [address] [phone] Luli Dejesus MD 111 [facility], [facility] [address] [place] [address] Appointment Related Social History Tobacco [...] * Telephone Encounter - Marychuy Mendez - 02/03/2020 1039 EDT Unable to reach pt. Straight to unavailable. Called Dilma (emergency contact). Gave me 2 #s ([phone] and [phone]). [phone] - unavailable [phone] - LM to call back * Telephone Encounter - Marychuy Mendez - 02/02/2020 1443 EDT Attempted to call pt in regard to scheduling procedure with Dr. Dejesus. Went straight to unavailable. documented in this encounter Plan of Treatment Not on file documented as of this encounter Visit Diagnoses Not on filedocumented in this encounter Care Teams Taxation Economist Relationship Specialty Start Date End Date Emily Bejarano APRN [address] [place] [phone] PCP - General 04/30/18 04/25/22 documented as of this encounter
--- OUTSIDE RECORDS SUMMARY | 2024-07-02 18:52 | XMS_ITS | Encounter Summary ---
Author Organization [facility] Address [address] [place] [address] Care Team Providers Care Regrinder Name Role Phone ClaytonPerla hogan John SALT WASHER Primary Care Provider [phone] Reason for Visit * Reason Onset Date Comments Orders (Non Pre-visit) 05/02/2022 Encounter Details Date Type Department Care Team (Late st Contact Info) Description 05/02/[address] [facility] Urology - [address] [phone] Juan Solitario MD [address] [place] [address], [address] [place] [address] Renal mass (Primary Dx); Pre-op testing Social History Tobacco Use Types Packs/Day Years [...] Primary Unspecified disorder of kidney and ureter Pre-op testing Preoperative examination, unspecified documented in this encounter Care Teams Regrinder Relationship Specialty Start Date End Date Perla Zamorano NP [address] [place] [address] PCP - General 04/26/22 documented as of this encounter
--- OUTSIDE RECORDS SUMMARY | 2024-07-02 18:52 | XMS_ITS | Encounter Summary ---
Author Organization [facility] Address [address] [place] [address] Care Team Providers Care Echo Vascular Technologist Name Role Phone Heidi Bejaranoily Lena AWAD Primary Care Provider Perla Zamorano NP Primary Care Provider Reason for Visit * Reason Onset Date Comments Coordination Of Care 03/05/2022 Appointment Related 03/08/2022 Encounter Details Date Type Department Care Team (Late st Contact Info) Description 03/05/2022 Telephone [facility] Urology - [address] [address] Juan Solitario MD 111 [facility], [address] [place] [address] Coordination Of Care; Appointment Related Social History Tobacco Use Types [...] * Telephone Encounter - Lily Arita - 03/09/2022 1520 EDT Patient is following up on getting scheduled with urology, priority 3-10 days. See note in referral. * Telephone Encounter - Aura Taylor - 03/08/2022 1109 EDT Patient calling to schedule, states she was in the middle of a call when her phone . Thank you. * Telephone Encounter - Apurva Armas - 03/05/2022 0920 EDT ARVIND Grayson from [facility] is calling to check if the patient's records were received. She is faxing them over to our office and they should be in patient's chart later today. They mentioned that theprovider spoke with one of our urologists regarding this patient. They also state that their ER does not do paper referrals and just faxes the discharge notes with doctor's instructions. Please advise. documented in this encounter Plan of Treatment Not on file documented as of this encounter Visit Diagnoses Not on filedocumented in this encounter Care Teams Echo Vascular Technologist Relationship Specialty Start Date End Date Emily Bejarano APRN [address] [place] [address] PCP - General 04/30/18 04/25/22 Perla Zamorano NP [address] [place] [address] PCP - General 04/26/22 documented as of this encounter
--- OUTSIDE RECORDS SUMMARY | 2024-07-02 18:52 | XMS_ITS | Encounter Summary ---
Author Organization [facility] Address [address] [place] [address] Care Team Providers Care Senior Solutions Architect Name Role Phone Emily Bejarano APRN Primary Care Provider Perla Zamorano NP Primary Care Provider [phone] Encounter Details Date Type Department Care Team (Late st Contact Info) Description 11/29/2020 Lab Requisition [facility] Pathology & Laboratory Medicine - [facility] [address] [place] [address] Outr Resulting Lab, Provider Social History Tobacco [...] Priority Date/Time Associated Diagnosis Comments ZZCOVID-19 TEST [facility] PCR Today 11/28/2020 15:00 EST COVID-19 TESTING Routine 11/28/2020 15:0 0 EST documented in this encounter Results * COVID-19 TEST [facility] PCR (11/28/2020 15:00 EST) Swab ENTIRE NASOPHARYNX / Unknown 11/28/2020 15:00 EST 11/29/2020 16:17 EST Provider Outr Resulting Lab MICROBIOLOGY - GENERAL ORDERABLES Performing Organization Address City/State/[facility] Co de Phone Number [facility] [address] [place] [address] * COVID-19 TESTING (11/28/2020 15:00 EST) COVID-19 rt-PCR Result Negative Negative 11/30/2020 19:22 EST [facility] Comment: Negative results do not preclude 2019-nCoV infection and should not be used as the sole basis for treatment or other patient management decisions. Negative results must be combined with clinical observations, patient history, and epidemiological information. This test was developed and its performance characteristics determined by [facility]. It has not been cleared or approved by the US Food and Drug Administration. FDA does not require this test to go through premarket FDA review. This test is used for clinical purposes. It should not be regarded as investigational or for research. This laboratory is certified under the Clinical Laboratory Improvement Amendments (CLIA) as qualified to perform high complexity clinical laboratory testing. This test is based on the CDC COVID-19 Emergency Use Authorization (EUA) assay, with minor modification as defined by the FDA Performed on the [employer] Flex. Performing Lab [facility] 11/30/2020 19:22 EST [facility] Swab 11/28/2020 15:0 0 EST 11/29/2020 16:17 EST Provider Outr Resulting Lab MICROBIOLOGY - GENERAL ORDERABLES [facility] [address] [place] [address] documented in this encounter Visit Diagnoses Not on filedocumented in this encounter Care Teams Senior Solutions Architect Relationship Specialty Start Date End Date Emily Bejarano APRN [address] [place] [phone] PCP - General 04/30/18 04/25/22 Perla Zamorano NP [address] [place] [phone] PCP - General 04/26/22 documented as of this encounter
--- OUTSIDE RECORDS SUMMARY | 2024-07-02 18:52 | XMS_ITS | Encounter Summary ---
Author Organization [facility] Address [address] [place] [address] Care Team Providers Care Drafter Civil (Cad) Name Role Phone Lona Perla John CLASSICS PROFESSOR Primary Care Provider [phone] Reason for Visit * Reason Onset Date Comments Results 05/02/2022 Encounter Details Date Type Department Care Team (Late st Contact Info) Description 05/02/2022 Telephone [facility] Urology - Medical Office Building [address] [place] [address], [address] [place], [place] [phone] Candice Mohr RN Results Social History Tobacco Use Types Packs/Day [...] encounter Miscellaneous Notes * Telephone Encounter - Candice Mohr, ARVIND - 05/02/2022 1552 EDT Tc to ARVIND Tipton at MARIPOSA Zamorano's office to advise the following. Nurse Danuta will have the imagespulled up and update MARIPOSA Zamorano.----- Message from Juan Solitario MD sent at 04/27/2022 10:15 EDT ----- Please notify patient's PCP of findings of subcutaneous nodules which may of no clinical significance, but may warrant follow-up or biopsy at their discretion,. Unlikely related to her renal mass. BI ----- Message ----- From: Tanner Cortes Results In Sent: 04/26/2022 14:34 EDT To: Juan Solitario MD documented in this encounter Plan of Treatment Not on file documented as of this encounter Visit Diagnoses Not on filedocumented in this encounter Care Teams Drafter Civil (Cad) Relationship Specialty Start Date End Date Perla Zamorano NP [address] [place] [address] PCP - General 04/26/22 documented as of this encounter
--- OUTSIDE RECORDS SUMMARY | 2024-07-02 18:52 | XMS_ITS | Encounter Summary ---
Author Organization [facility] Address [address] [place] [address] Care Team Providers Care Van Loader Name Role Phone Emily Bejarano Lena AWAD Primary Care Provider [phone] Encounter Details Date Type Department Care Team (Latest Contact Info) Description 04/25/2020 11:10 EDT - 04/26/2020 23:59 EDT Hospital Encounter [facility] Pre-Surgical Testing [address] [place] [address] Discharge Disposition: Home or Self Care Anesthesia [...] acknowledgement of understanding. 1558 An Stop Meds * Agents No agents on file. * Blood No blood administrations on file. Lines, Drains, and Airways Type Details Placement Removal Peripheral IV 05/05/20; 1324; 04/25 07/14; B Stearns Introcan; Right, Dorsal; Hand; Inserted by RN; 1; None; 3.15% Chlorhexidine with IPA; 05/05/20; 1630; Discharged, Per protocol; No complications, Catheter intact, Dressing applied 05/05/20 1324 by Mallory Steinberg, ARVIND 05/05/20 1630 by Johana Richardson RN Wound [...] Concentration - - Weight - - Height 177.8 cm (5' 10) 04/25/2020 1106 EDT Body Mass Index - - documented in [...] 1,000 mg by mouth 2 times daily. acetaminophen-codeine (TYLENOL #3) 300-30 mg per tablet Take 1 Tab by mouth every 4 hours as needed for Pain. 10 Tab 0 09/17/2011 05/05/2020 documented as of this encounter Discharge Disposition Disposition Code Departure Means Destination Home or Self Care documented in this encounter Progress Notes * Jessika Abreu RN - 04/25/2020 1135 EDT COVID 19 Screening Perioperative at time of PAT Have you had any flu like symptoms within past six weeks? - Cough yes - Runny nose no - SOB no - Fever/Chills no - Muscle pain no - Chest congestion no - Cold no - Loss of taste/ smell no - Diarrhea no Please elaborate if yes: Pt has baseline smokes cough and asthma. Pt states she had COVID test 04/07/20 was negative. Test ordered for prior to surgery and pt states she will refuse it if its not oral. Had nasal swab and had Migraine for days If past COVID + test results in chart: ??? Complete call, Place for Anesthesia Review ??? Do not give COVID+ DOS arrival instructions unless anes review deems necessary Have you been in close contact with someone who has been diagnosed with Covid 19? no (close contact, within 6 feet of any person known to have Coronavirus in the past 14 days) If patient develops any of these symptoms between now and their surgery date instruct them to call us back at [phone] to report symptoms If the patient answers yes, to any of these questions during PAT, -RN to flag this chart for anesthesia review and complete call -RN to communicate with surgical office about anesthesia review (If patient is in Surgical Admissions and answers yes, please notify Surgery and Anesthesia team). Follow proper precautions- yellow mask to patient/family. [place]: Visitor Policy: OP- one non-sick escort in waiting room, no visitors/escort in PeriOp Exceptions: Child-1 parent, special needs- 1 caregiver For safety concerns on ride home: second parent or caregiver may come to hospital but will have to wait in cell phone lot IP- One non-sick visitor/escort in waiting room, no visitors/escort in PeriOp Pediatric patient: ??? Due to COVID 19 all children will receive IV and no parents are allowed to go back to OR, except pediatric patients coming in only PE tubes ??? RN to provide education on IV's and request Emla to be placed (RX from PCP) prior to coming in with them. ? ? Patient > 1 yo: Emla takes one hour to work, place quarter size amount on 4 places - top of hands and inner elbow, cover with tegaderm or saran wrap. Children under age of 16 y.o. are not permitted. Only ADA service animals are permitted into the hospital. All other animals, including previously approved therapy/support animals, are not allowed at this time. (No animals will be allowed into Preop, OR, or PACU) Visitor Policy Nilda Aragon: - No visitors - Patients should be dropped at the front door - Same exceptions apply as main campus: children and special needs - Visitors/rides home are to wait in the parking lot or be within 15 mins away - Visitors must have mask for pickup because PARAFFIN MACHINE OPERATOR will review DC instructions with Pt and visitor documented in this encounter OR Notes * Preprocedure Instructions - Jessika Abreu RN - 04/25/2020 0014 EDT Yesenia Fragoso has been instructed as follows regarding medication administration for the day of the scheduled procedure. Date of Surgery: 04/25/20 Instructions for Taking Medications Day of Surgery Medication Sig Last Dose Hold DOS Take DOS acetaminophen (TYLENOL) 325 mg tablet Take 2 Tabs by mouth every 4 hours as needed for Pain. x acetaminophen-codeine (TYLENOL #3) 300-30 mg per tablet Take 1 Tab by mouth every 4 hours as neededfor Pain. x albuterol (PROVENTIL HFA, VENTOLIN HFA) 90 mcg/Actuation inhaler Inhale 2 Puffs as directed every 4hours. x blood glucose test strips One touch verio meter or any brand compatible with meter and covered by Pt's insurance. Tests QID. Patient not taking: Reported on 12/01/2019 levothyroxine (SYNTHROID) 112 mcg tablet Take 2 tabs by mouth daily. x metFORMIN (GLUCOPHAGE) 500 mg tablet Take 500 mg by mouth at bedtime. x documented in this encounter Miscellaneous Notes * PAT Note - Tiffanie Hansen MD - 04/25/2020 1138 EDT 04/25/20 PAT call pt had positive screening [...] 04/07/20, patient is likely low-risk. Jade BURGOS documented in this encounter Plan of Treatment Not on file documented as of this encounter Visit Diagnoses Not on filedocumented in this encounter Discontinued Medications Medication Sig Discontinue Reason Start Date End Da te albuterol (ACCUNEB) 0.63 mg/3 mL nebulizer solution Take 3 mL by nebulization every 4 hours as needed for Wheezing. Therapy completed 10/30/2018 04/25/2020 docusate sodium (COLACE) 100 mg capsule Take 1 Cap by mouth 2 times daily. 10/30/2018 04/25/2020 FLUoxetine (PROZAC) 20 mg/5 mL (4 mg/mL) solution Take 20 mg by mouth daily. Therapy completed 04/25/2020 fluconazole (DIFLUCAN) 150 mg tablet Take 1 Tab by mouth once for 1 dose. Therapy completed 09/24/2019 04/25/2020 fluticasone-salmetero l (ADVAIR) 250-50 mcg/dose diskus inhaler Inhale 1 Puff as directed 2 times daily. Therapy completed 10/30/2018 04/25/2020 fluticasone-salmetero l (ADVAIR) 250-50 mcg/Dose diskus inhaler Inhale 1 Puff as directed every 12 hours. Therapy completed 04/25/2020 ibuprofen (MOTRIN) 600 mg tablet Take 1 Tab by mouth 3 times daily. Therapy completed 10/30/2018 04/25/2020 metroNIDAZOLE (FLAGYL) 500 mg tablet Take four tabs at once. Therapy completed 09/24/20192019 nicotine (NICOTROL) 10 mg inhaler Inhale 1 cartridge as directed as needed for Smoking Cessation. Therapy completed 10/30/2018 04/25/2020 nicotine (NICODERM CQ) 14 mg/[address] 1 Patch onto the skin daily. Therapy completed 10/30/2018 04/25/2020 buPROPion (WELLBUTRIN XL) 150 mg XL tablet Take 1 Tab by mouth daily. Therapy completed 11/19/2018 04/25/2020 documented as of this encounter Care Teams Van Loader Relationship Specialty Start Date End Date Emily Bejarano APRN [address] [place] [place] [address] PCP - General 04/30/18 04/25/22 documented as of this encounter
--- OUTSIDE RECORDS SUMMARY | 2024-07-02 18:52 | XMS_ITS | Encounter Summary ---
Author Organization [facility] Address [address] [place] [address] Care Team Providers Care Specimen Collector Name Role Phone Emily Bejarano Lena AWAD Primary Care Provider [phone] Encounter Details Date Type Department Care Team (Late st Contact Info) Description 05/04/2020 Prep for Procedure [facility] Women's Services - [address] [address] Luli Dejesus MD [address] [facility], [address] [place] [address] Social History Tobacco Use Types Packs/Day Years [...] Yes 12/01/2019 documented as of this encounter H&P Notes * Luli Dejesus MD - 05/04/2020 0937 EDT Preop Dx: MATT 2 Surgery: LEEP [...] ??? Diabetes mellitus, type 2 ([facility]) 04/25/20 managed with [id number] ??? Exercise involving walking 04/25/20 has [...] MD 05/04/2020 9:37 documented in this encounter Plan of Treatment Not on file documented as of this encounter Visit Diagnoses Not on filedocumented in this encounter Care Teams Specimen Collector Relationship Specialty Start Date End Date Emily Bejarano APRN [address] [place] [id number] PCP - General 04/30/18 04/25/22 documented as of this encounter
--- OUTSIDE RECORDS SUMMARY | 2024-07-02 18:52 | XMS_ITS | Encounter Summary ---
Author Organization [facility] Address [address] [place] [address] Care Team Providers Care Windows Systems Administrator Name Role Phone Emily Bejarano Lena AWAD Primary Care Provider [phone] Reason for Visit * Reason Onset Date Comments COVID-19 04/20/2020 Encounter Details Date Type Department Care Team (Late st Contact Info) Description 04/20/2020 Orders Only [facility] Women's Services - [address] [address] Ivania Hussein RN MATT II (cervical intraepithelial neoplasia II) (Primary [...] as of this encounter Progress Notes * Ivania Hussein, RN - 04/20/2020 5644 EDT Scehuled for surgery 05/05/[address] Dejesus for CINII. COVID screening order placed documented in this encounter Plan of Treatment Not on file documented as of this encounter Visit Diagnoses Diagnosis MATT II (cervical intraepithelial neoplasia II)- Primary Moderate dysplasia of cervix documented in this encounter Care Teams Windows Systems Administrator Relationship Specialty Start Date End Date Emily Bejarano APRN [address] [place] [phone] PCP - General 04/30/18 04/25/22 documented as of this encounter
--- OUTSIDE RECORDS SUMMARY | 2024-07-02 18:52 | XMS_ITS | Encounter Summary ---
Author Organization [facility] Address [address] [place] [address] Care Team Providers Care Coat Joiner Lockstitch Name Role Phone JayantPerla tapia oJhn BOOKKEEPING SERVICE SALES AGENT Primary Care Provider [phone] Reason for Visit * Reason Onset Date Comments Pre-op Exam 06/22/2022 Paperwork Encounter Details Date Type Department Care Team (Late st Contact Info) Description 06/22/2022 Telephone [facility] Urology - [address] [phone] Juan Solitario MD [address] [place] [address], [address] [place] [address] Pre-op Exam (Paperwork) Social History Tobacco Use Types Packs/Day Years [...] * Telephone Encounter - Ling Simpson - 06/22/2022 1159 EDT Karena is aware there is no pre-op paperwork. Pt was instructed to have labs, urine culture and a CXR completed at [facility] within the 7 to 30 days prior to surgery. * Telephone Encounter - Arnaldo Fenton - 06/22/2022 0977 EDT Patients PCP Office called and they would like any pre-op exam paperwork needed for them to sign jennifer sent over before her surgery. You can fax it to [phone] documented in this encounter Plan of Treatment Not on file documented as of this encounter Visit Diagnoses Not on filedocumented in this encounter Care Teams Coat Joiner Lockstitch Relationship Specialty Start Date End Date Perla Zamorano NP 4 [facility] [place] 2[facility] [place] [address] PCP - General 04/26/22 documented as of this encounter
--- OUTSIDE RECORDS SUMMARY | 2024-07-02 18:52 | XMS_ITS | Encounter Summary ---
Author Organization [facility] Address [address] [place] [address] Care Team Providers Care Ems Instructor Name Role Phone Emily Bejarano Lena AWAD Primary Care Provider Reason for Visit * Reason Onset Date Comments Patient Outreach 04/13/2022 Medication Management 04/13/2022 Encounter Details Date Type Department Care Team (Late st Contact Info) Description 04/13/2022 Telephone [facility] Urology - [address] [address] Juan Solitario MD [address] [place] [address], [address] [place] [address] Patient Outreach; Medication Management Social History Tobacco Use Types Packs/Day Years [...] Yes 12/01/2019 documented as of this encounter Ordered Prescriptions Prescription Sig Dispensed Refills Start Date End Da te diazePAM (VALIUM) 5 mg tablet 1-2 tabs 1 hour prior to procedure. 2 Tablet 04/16/2022 08/17/2022 documented in this encounter Miscellaneous Notes * Telephone Encounter - Ragini Richards RN - 04/16/2022 1542 EDT Made patient aware of Rx and confirmed need for otr flatbed driver to/from procedure. * Telephone Encounter - Ragini Richards RN - 04/13/2022 1507 EDT Reviewed note from Dr. Solitario on 03/22/22; CT Scan = 3.9 x 3.0 cm apparently enhancing right renal mass Patient reports she will address her questions with Dr. Solitario at her appt on 04/26 after the MRI. Sheis most concerned about her childcare after a potential surgery. VPMS checked - no active Rx found. Will send request for anti-anxiety medications to Dr. Solitario. Preferred pharmacy = [facility] in [place], [place]. * Telephone Encounter - Nahum Patterson - 04/13/2022 1230 EDT Patient calling to request a prescription for something to help her anxiety when she gets her MRI done 04/26. She also wants to speak to Dr Solitario or a nurse as soon as they get a chance. She stated that when Dr Solitario discussed her diagnosis with her at their appt she kind of shut down and now has some questions she would like to discuss. Please call patient back. documented in this encounter Plan of Treatment Not on file documented as of this encounter Visit Diagnoses Not on filedocumented in this encounter Care Teams Ems Instructor Relationship Specialty Start Date End Date Emily Bejarano APRN [address] [place] [phone] PCP - General 04/30/18 04/25/22 documented as of this encounter
--- OUTSIDE RECORDS SUMMARY | 2024-07-02 18:52 | XMS_ITS | Encounter Summary ---
Author Organization [facility] Address [address] [place] [address] Care Team Providers Care Auto Specialty Services Manager Name Role Phone Emily Bejarano Lena AWAD Primary Care Provider [phone] Reason for Visit * Reason Onset Date Comments Surgery Scheduling 04/14/2020 Encounter Details Date Type Department Care Team (Late st Contact Info) Description 04/14/2020 Telephone [facility] Women's Services - [address] [phone] Luli Dejesus MD [address] [facility], [facility] [address] [place] [address] Surgery Scheduling Social History Tobacco [...] * Telephone Encounter - Marychuy Mendez - 04/14/2020 1613 EDT Called pt to offer surgery date of 04/20. Pt driving and asked to be called back 'in 20 minutes.' Called pt and asked if she'd like surgery done 04/20. Pt says she doesn't have a ride nor childcare and would like a call back tomorrow at noon to see if she was able to arrange it. * Telephone Encounter - Marychuy Mendez - 04/14/2020 0906 EDT Called pt to offer surgery date if 04.20. Pt unavailable. Unable to LVM. documented in this encounter Plan of Treatment Not on file documented as of this encounter Visit Diagnoses Not on filedocumented in this encounter Care Teams Auto Specialty Services Manager Relationship Specialty Start Date End Date Emily Bejarano APRN [address] [place] [address] PCP - General 04/30/18 04/25/22 documented as of this encounter
--- OUTSIDE RECORDS SUMMARY | 2024-07-02 18:52 | XMS_ITS | Encounter Summary ---
Author Organization [facility] Address [address] [place] [address] Care Team Providers Care Publicity Person Name Role Phone Emily Bejarano Lena AWAD Primary Care Provider [phone] Reason for Visit * Auth/Cert Specialty Diagnoses / Procedures Referred By Contac t Referred To Contact Diagnoses MATT II (cervical intraepithelial neoplasia II) Procedures IN CONIZATION CERVIX,LOOP ELECTRD Loop electrical excision procedure (LEEP) Referral ID Status Reason Start Date Expiration Date Visits Re quested Visits Authorized [id number] 1 1 Encounter Details Date Type Department Care Team (Late st Contact Info) Description 05/05/2020 12:35 EDT - 05/05/2020 14:05 EDT Surgery [facility] OR [address] [place] [address] [id number] Luli Dejesus MD [address] [place] [address], [facility], [address] [place] [address] Loop electrical excision procedure (LEEP) [09515 (CPT??)] Surgery Details Date/Time Status Location OR Service Patient Class Case Cl ass Case Type Trauma Case? 05/05/20 1235 Posted [facility] OR [facility] [place] [facility] Hospit [facility] Outpatient Surgery H - Elective Panel 1 Procedure LRB Anes Op Region Wound Class Comments Loop electrical excision procedure (LEEP) N/A General Vagina Class II/ Clean Contamin ated 60 min Surgeon Surgeon Role Service Panel Parris Glasgow MD Resident - Assisting Gynecology 1 Luli Dejesus MD Primary Gynecology 1 documented in this encounter Social History [...] Sign Reading Time Taken Comments Blood Pressure 129/75 05/05/2020 1136 EDT Pulse - - Temperature 36.8 ??C (98.2 ??F) 05/05/2020 1136 EDT Respiratory Rate 16 05/05/2020 1136 EDT Oxygen Saturation 99% 05/05/2020 1136 EDT Inhaled Oxygen Concentration - - Weight [...] safely return home. JULIAN GAMEZ * Carly Trotter RN - 05/05/2020 1138 EDT Spoke with Morgan Baca in social work. Pt is requesting gas [...] type 2 ([facility]) 04/25/20 managed with [id number] -[id number] ??? Exercise involving walking 04/25/20 has [...] Surgical History: Procedure Laterality Date ??? SECTION 2009,2017 uvm and [place] ??? COSMETIC SURGERY 3 [...] in this encounter Nursing Notes * Mallory Steinberg, RN - 05/05/2020 5426 EDT The Patient Declines testing for prior to the Surgery/ Procedure. The following were Explained to the Patient: ?? Testing is done to minimize the risk of potential adverse effects of Anesthesia/ Surgery on a developing fetus ?? It is a [facility] Policy to test all females who are having menstrual periods ?? It is for their safety and that of a developing fetus should they be ?? The Patient does have the right to decline and understands the risks of not obtaining the test The Surgeon Lena Colby MD and Anesthesiologist Neo Shultz were notified. * Juanita Conner RN - 05/05/2020 1047 EDT COVID 19 Screening Perioperative PreOp Surgical Waiting Area Screening: Patient and Family will be screened at designated points of entry to [facility] Patient and Family will be screened again [...] to: PreOp TL, PreOp bedside RN, PACU monitoring specialist, Anesthesia and Surgeon. Managers as needed. ??? [...] dirty?? ) RN to receive patient from [facility] in Droplet Precaution PPE and transport patient to designated room. Ensure patient is wearing a mask prior to transport. ??? PreOp Screening RN to document using COVID smart phrase (.SWACOVIDS) ??? If patient is [...] unless special circumstances (Child, cognitive impairment, and anchorer). Pt temp:36.0 Visitor Temp: na Visitor Name:na [...] surgeon consult No children <16 yo in [facility]. Dr. Gutierrez to [facility] to assess pt. Per milind BURGOS to proceed with surgery. JUANITA CONNER RN documented in this encounter OR Notes * OR Surgeon - Luli Dejesus MD - 05/05/2020 1648 EDT FORMAL OPERATIVE REPORT Date: 05/05/2020 Attending: Luli Dejesus MD Blankbook Stitching Machine Operator: Parris Glasgow MD Pre-op diagnosis: Cervical intraepithelial [...] Glasgow MD 05/05/2020 21:52 PGY3, OBGYN Pager #[phone] Attestation statement: I was present during the entire procedure and agree with the resident's note. Luli Dejesus MD 05/09/2020 12:06 documented in this encounter Miscellaneous Notes * Brief Op Note - Parris Glasgow MD - 05/05/2020 2293 EDT Brief Operative Note Date: 05/05/2020 Attending: Luli Dejesus MD Blankbook Stitching Machine Operator: Parris Glasgow MD Pre-op diagnosis: Cervical intraepithelial [...] Glasgow MD 05/05/2020 16:08 PGY3, OBGYN Pager #[phone] documented in this encounter Plan of Treatment [...] with atypia. See comment. 05/11/2020 11:55 EDT [facility] at 1155 Attestation There was significant resident/fellow involvement in the diagnostic evaluation of this case. By the signature below, the attending physician certifies that they have personally conducted a gross and/or microscopic examination of the described specimens and rendered or confirmed the above diagnosis. 05/11/2020 11:55 EDT [facility] at 1155 Diagnosis Comment P16 (E6H4TM, [place]) immunostaining was attempted on the focus of atypical squamous metaplasia on the ECC, but the focus is no longer present on the immunostain, thus the presence of high grade squamous intraepithelial lesion cannot be confirmed. NOTE: One or more of the reagents used in immunoperoxidase testing in this case may not have been cleared or approved by the .[place]. Food and Drug Administration (FDA). The FDA [...] high complexity clinical laboratory testing. 05/11/2020 11:55 [facility] Clinical History MATT II (cervical intraepithelial neoplasia II) 05/11/2020 11:55 [facility] Gross Description A. Received [...] C1. Kala Valenzuela 05/06/2020 10:08 05/11/2020 11:55 [facility] Resident/Collins w: Gordon Still MD 05/11/2020 11:55 EDT [facility] Scanned Images 05/11/2020 11:55 EDT [facility] Tissue ENTIRE WALL OF CERVIX / Unknown 05/05/2020 15:40 EDT 05/05/2020 22:11 EDT Tissue specimen (specimen) CERVIX UTERI STRUCTURE / Unknown 05/05/2020 15:40 EDT 05/05/2020 22:11 EDT Tissue specimen (specimen) ENDOCERVICAL STRUCTURE / Unknown 05/05/2020 15:40 EDT 05/05/2020 22:11 EDT Luli Dejesus MD PATHOLOGY ORDERABL ES [facility] [address] [place] [address] * (ABNORMAL) COMPLETE BLOOD COUNT (05/05/2020 13:00 EDT) WBC 12.29 4.00 - 12.40 K/cmm 05/05/2020 13:11 [facility] RBC 4.47 3.86 - 5.04 M/cmm 05/05/2020 13:11 [facility] Hemoglobin 12.0 11.6 - 15.2 gm/dL 05/05/2020 13:11 [facility] HCT 36.7 34.9 - 44.4 % 05/05/2020 13:11 [facility] MCV 82 81 - 98 fl 05/05/2020 13:11 [facility] MCH 26.8 26.7 - 33.3 pg 05/05/2020 13:11 [facility] MCHC 32.7 32.1 - 35.9 gm/dL 05/05/2020 13:11 [facility] RDW-CV 14.1 <14.7 % 05/05/2020 13:11 [facility] RDW-SD 41.9 <50.4 fl 05/05/2020 13:11 [facility] PLT 316 141 - 377 K/cmm 05/05/2020 13:11 [facility] MPV 9.4(L) 9.5 - 12.7 fl 05/05/2020 13:11 EDT [facility] Blood VENOUS BLOOD / Unknown Venipuncture / Unknown 05/05/2020 13:00 EDT 05/05/2020 13:04 EDT Parris Glasgow MD HEMATOLOGY & PF4 ORD ERABLES [facility] [address] [place] [address] * (ABNORMAL) POCT GLUCOSE, INTERFACED (05/05/2020 12:24 EDT) Glucose, POC 107(H) 70 - 100 mg/dL 05/05/2020 12:29 EDT [facility] manager managed backup services ID [id number] 05/05/2020 12:29 EDT [facility] HN LAB POC COMMENT (GLUCOSE) Test Performed by Nursing Services 05/05/2020 12:29 EDT [facility] Blood CAPILLARY BLOOD / Unknown 05/05/2020 12:24 EDT 05/05/2020 12:29 EDT Luli Dejesus MD POINT OF CARE TEST ORDERABLES Performing Organization Address City/[facility] Co de Phone Number [facility] [address] [place] [address] documented in this encounter Visit Diagnoses Diagnosis MATT II (cervical intraepithelial neoplasia II)- Primary Moderate dysplasia of cervix MATT II (cervical intraepithelial neoplasia II) Moderate [...] placement, Routine, Preprocedure lidocaine-EPINEPHrine 1 %-1:100,000 injection As needed, Starting on Deysi 05/05/20 at 1525, Until Edysi 05/05/20 at 1527, Routine, Intraprocedure Given 05/05/2020 15:25 EDT 20 mL naloxone (NARCAN) injection 0.2 mg 0.2 mg, [...] Routine 1411 (Patch Applied - Provider: Mallory Steinberg, ARVIND)2100 (Due: Patch Removed - Provider: Mallory Steinberg, ARVIND) Continuous Medication Order 05/03/2020 05/04/2020 05/05/2020 lactated [...] 1556 (Continued Infu kelli - Provider: Johana Richardson, ARVIND)1618 (Completed - Provider: Johana Richardson RN) PRN Medication Order 05/03/2020 05/04/2020 05/05/2020 acetaminophen [...] on Deysi 05/05/20 at 1525, Until Deysi 20 at 1848, Pain, Routine, Recovery (only) glucagon [...] % ) injection 2 mg 1 05/05/2020 naloxone (NARCAN) injection 0.2 mg 1 2019 Diet Count Last Ordered Date First Orde red Date DISCHARGE DIET 1 05/05/2020 Nursing Count Last Ordered Date First Orde red Date ACTIVITY INSTRUCTIONS 1 05/05/2020 BATHING INSTRUCTIONS 1 05/05/2020 Discharge Count Last Ordered Date First Orde red Date DISCHARGE PATIENT 1 05/05/2020 documented in this encounter Care Teams Publicity Person Relationship Specialty Start Date End Date Emily Bejarano APRN [address] [place] [phone] PCP - General 04/30/18 04/25/22 documented as of this encounter
--- OUTSIDE RECORDS SUMMARY | 2024-07-02 18:52 | XMS_ITS | Encounter Summary ---
Author Organization [facility] Address [address] [place] [address] Care Team Providers Care Gymnastics Coach Name Role Phone Lona Perla John CHEMISTRY ACCOUNT MANAGER Primary Care Provider [phone] Reason for Visit * Reason Onset Date Comments Coordination Of Care 07/11/2022 Medical Cl eearance Coordination Of Care 07/11/2022 Encounter Details Date Type Department Care Team (Late st Contact Info) Description 07/11/2022 Telephone [facility]rology - [address] [address] Juan Solitario MD [address] [place] [address], [address] [place] [address] Coordination Of Care (Medical Cleearance); Coordination Of Care Social History Tobacco Use [...] encounter Miscellaneous Notes * Telephone Encounter - Selma Sweet RN - 07/12/[address] Solitario 1 week around surgery sounds reasonable. Spoke with Rosalba. * Telephone Encounter - Juan Solitario MD - 07/12/2022 0331 EDT 1 week around surgery sounds reasonable. BI * Telephone Encounter - Lenin Tadeo - 07/11/2022 1625 EDT Marlene called to add that they need to know if the patient will be put on any medication preventing dental treatment and what will be the wait time to resume dental treatment. Please call to discuss * Telephone Encounter - Erin Dejesus - 07/11/2022 1054 EDT [facility] is requesting a medical clearance in order for patient to have dental extractions. Please call back to advise. documented in this encounter Plan of Treatment Not on file documented as of this encounter Visit Diagnoses Not on filedocumented in this encounter Care Teams Gymnastics Coach Relationship Specialty Start Date End Date Perla Zamorano, MARIPOSA [address] [place] [address] PCP - General 04/26/22 documented as of this encounter
--- OUTSIDE RECORDS SUMMARY | 2024-07-02 18:52 | XMS_ITS | Encounter Summary ---
Author Organization [facility] Address [address] [place] [address] Care Team Providers Care Forge Heater Name Role Phone Emily Bejarano APRN Primary Care Provider Perla Zamorano NP Primary Care Provider [phone] Encounter Details Date Type Department Care Team (Late st Contact Info) Description 02/21/2022 Lab Requisition [facility] Pathology & Laboratory Medicine - [facility] [address] [place] [address] Outr Resulting Lab, Provider Social History Tobacco [...] Priority Date/Time Associated Diagnosis Comments ZZCOVID-19 TEST [facility] PCR Today 02/20/2022 10:40 EDT COVID-19 TESTING Routine 02/20/2022 10:4 0 EDT documented in this encounter Results * COVID-19 TEST [facility] PCR (02/20/2022 10:40 EDT) Swab 02/20/2022 10:4 0 EDT 02/21/2022 16:42 EDT Provider Outr Resulting Lab MICROBIOLOGY - GENERAL ORDERABLES [facility] [address] [place] [address] * COVID-19 TESTING (02/20/2022 10:40 EDT) COVID-19 rt-PCR Result Negative Negative 02/22/2022 12:48 EDT [facility] Comment: This test has not [...] was performed using the neris SARS-CoV-2 assay ([employer] on the Neris 6800 System Performing Lab Neris 6800 [facility] 02/22/2022 12:48 EDT [facility] Swab 02/20/2022 10:4 0 EDT 02/21/2022 16:42 EDT Provider Outr Resulting Lab MICROBIOLOGY - GENERAL ORDERABLES Performing Organization Address City/State/[facility] Co de Phone Number [facility] [address] [place] [address] documented in this encounter Visit Diagnoses Not on filedocumented in this encounter Care Teams Forge Heater Relationship Specialty Start Date End Date Emily Bejarano APRN [address] [place] [phone] PCP - General 04/30/18 04/25/22 Perla Zamorano NP [address] [place] [address] PCP - General 04/26/22 documented as of this encounter
--- OUTSIDE RECORDS SUMMARY | 2024-07-02 18:53 | XMS_ITS | Encounter Summary ---
Author Organization [facility] Address [address] [place] [address] Care Team Providers Care Line Mover Name Role Phone DarciEmily diaz Lena AWAD Primary Care Provider [phone] Reason for Visit * Reason Onset Date Comments Appointment Related 11/24/2018 Encounter Details Date Type Department Care Team (Late st Contact Info) Description 11/24/2018 Telephone [facility] - [address] [address] None, Provider Appointment Related Social History Tobacco Use Types [...] shopping? (15 years old or older) No 10/28/2018 Cognitive Status Response Date of Assessm ent Because of a physical, menta l, or emotional condition, do you have serious difficulty concentrating, remembering, or making decisions? (5 years old or older) No 10/28/2018 documented as of this encounter Miscellaneous Notes * Telephone Encounter - Daniel Goddard - 11/24/2018 1345 EST LVM for pt to reschedule missed appt today. documented in this encounter Plan of Treatment Not on file documented as of this encounter Visit Diagnoses Not on filedocumented in this encounter Care Teams Line Mover Relationship Specialty Start Date End Date Emily Bejarano APRN [address] [place] [phone] PCP - General 04/30/18 04/25/22 documented as of this encounter
--- OUTSIDE RECORDS SUMMARY | 2024-07-02 18:53 | XMS_ITS | Encounter Summary ---
Author Organization [facility] Address [address] [place] [address] Care Team Providers Care Vp Training Name Role Phone Emily Bejarano Lena AWAD Primary Care Provider [phone] Reason for Visit * Reason Onset Date Comments Drainage from Incision 11/19/2018 Encounter Details Date Type Department Care Team (Late st Contact Info) Description 11/19/2018 Telephone [facility] Obstetrics & Midwifery - [address] [address] Dahiana Genao RN Drainage from Incision Social History Tobacco Use Types Packs/Day Years [...] encounter Miscellaneous Notes * Telephone Encounter - Dahiana Genao RN - 11/19/2018 0839 EST Rec'd message from Emily RN at [facility] on 11/17 re: patient. Return call and she states patient called to report wound dehiscence and was planning on going to ED. No notes in [facility] indicate she came to ED at [facility]. Spoke with Dr. Paul on 11/15. TC to patient's self contained behavior unit teacher, Marta Farooq to check in and see if patient was seen in the past fewdays. Looking to follow up on her evaluation. No answer- left voicemail with [facility] phone number and asked that she call back. Left message for Yesenia to follow up. [facility] phone number provided and asked that she call back. documented in this encounter Plan of Treatment Not on file documented as of this encounter Visit Diagnoses Not on filedocumented in this encounter Care Teams Vp Training Relationship Specialty Start Date End Date Emily Bejarano APRN [address] [place] [phone] PCP - General 04/30/18 04/25/22 documented as of this encounter
--- OUTSIDE RECORDS SUMMARY | 2024-07-02 18:53 | XMS_ITS | Encounter Summary ---
Author Organization [facility] Address [address] [place] [address] Care Team Providers Care Chief Environmental Commitment Officer Name Role Phone Emily Bejarano Lena AWAD Primary Care Provider Reason for Referral * Consult (Routine) - Closed Specialty Diagnoses / Procedures Referred By Contkenzie t Referred To Contact Pelvic Medicine Diagnoses Stress incontinence of urine Luli Dejesus MD [address] [place] [phone] [facility] Pelvic Medicine [facility] [address] [place] [address] Referral ID Status Reason Start Date Expiration Date V isits Requested Visits Authorized [id number] Closed Specialty Services Required 12/01/2019 1 1 Question Answer Reason for Request: urinary incontinence Reason for Visit * Reason Comments Procedure Encounter Details Date Type Department Care Team (Late st Contact Info) Description 12/01/2019 10:30 EST Procedure visit [facility] - [address] [id number] Luli Dejesus MD [address] [place] [phone] Mixed stress and urge urinary incontinence (Primary Dx); Stress incontinence of urine; Low grade squamous intraepith lesion on cytologic smear cervix (lgsil); Cervical high risk human papillomavirus (HPV) DNA test positive Social History Tobacco Use Types Packs/Day Years [...] Sign Reading Time Taken Comments Blood Pressure 132/84 12/01/2019 1101 EST Pulse - - Temperature - - Respiratory Rate - - Oxygen Saturation - - Inhaled Oxygen Concentration - - Weight - - Height 177.8 cm (5' 10) 12/01/2019 1101 EST Body Mass Index - - documented in [...] Progress Notes * Luli Dejesus MD - 12/01/2019 1030 EST Images from the original note were not included. Sent by No ref. provider found Colposcopy Procedure Note 39 y.o. who is doing well today, but reporting persistent urinary incontinence with coughing, sneezing, standing up since her last delivery. Indications: LSIL + HPV pap 05/2019 History of cervical cytology, colposcopy, treatment: 2000 ASCUS 2008, 2009, 2011 neg paps 02/2018 pap neg, HPV pos 05/2019 LSIL, HPV pos, vulvar bx LIEN I /condyloma Current contraception No contraception. Menopausal Status: 11/08/19 LMP. Currently : No test None. Not sexually active. Last intercourse 1 year ago. Prior Hysterectomy: No smoker (2-3 cig per day x 24 yrs) HIV: No Received Gardasil vaccine: No, Procedure Details The risks and benefits of the procedure and written informed consent obtained. Vulva inspected. Speculum placed in vagina and visualization of cervix achieved. Difficult to get good visualization - needed long speculum with condom on speculum and tenaculum to bring cervix into view. Vagina and cervix soaked with acetic acid solution. Cervix and vagina painted with Lugol's solution. Exam was chaperoned by Marcos Cheung. Image: Cervical colposcopy: Visualization of the cervix: Fully Visualized Visualization of the SCJ: Not seen Acetowhite Changes: No Normal Colposcopic Findings: Original Squamous Epithelium and Columnar Epithelium Abnormal Colposcopic Findings: Lesions Present: Yes Location of Lesion: 10 o'clock. Lesion fully visualized at SCJ. 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 biopsied Vulvar inspection: No visible lesions. Clinical Impressions: Colposcopy: Low Grade. 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 Specimens: Cervix: 10 O'Clock, ECC: Curettage, [place], right posterior Vaginal Wall Complications: None. Plan: Referral placed to urogynecology for urinary incontinence Discussed smoking cessation Patient will be called with pathology results and recommendations next week. Instructions sheet given to patient. Parris Glasgow MD Attestation statement: I was present during the entire procedure and agree with the resident's note. Luli Dejesus MD 12/01/2019 14:59 Addendum 12/07/2019 Patient called with results and recommendations. 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 He had a lot of discomfort during the office colposcopy and I discussed the option of proceeding with treatment in the operating room versus trying the office treatment. Patient at this time would prefer attempting office treatment. 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 I will arrange for her to get this scheduled in the office with me in the next month or so. I also am going to have a LEEP pamphlet mailed to her and put her in the [facility] system. documented in this encounter Plan of Treatment Scheduled Referrals Name Type Priority Associated Diagnoses Orde r Schedule AMB CONS/FOLLOW UP UROGYNECOLOGY Outpatient Referral Routine Stress incontinence of urine Ordered: 12/01/2019 documented as of this encounter Procedures Procedure Name Priority Date/Time Associated Diagnosis Comments SURGICAL PATHOLOGY Routine 12/01/2019 15 :17 EST Low grade squamous intraepith lesion on cytologic smear cervix (lgsil) Cervical high risk human papillomavirus (HPV) DNA test positive documented in this encounter Results * SURGICAL PATHOLOGY (12/01/2019 15:17 EST) Final Diagnosis A. ENDOCERVIX, CURRETAGE: - Detached fragments of high grade squamous intraepithelial lesion (MATT II). See comment. B. CERVIX, 10 O'CLOCK, AND VAGINA, RIGHT LOWER POSTERIOR WALL, BIOPSIES: - Squamous mucosa with reactive change (2 fragments). See comment. - Fragments of condyloma (2 fragments). 12/04/2019 12:56 EST [facility] at 1256 Diagnosis Comment The lab was notified by Dr. Dejesus's office that specimen B (cervix) and C (vagina) were inadvertently placed in the same specimen container and submitted as specimen B. Specimen B contains fragments of condyloma and fragments of reactive squamous mucosa. Clinical correlation is required. There are detached fragments of high grade squamous intraepithelial lesion in the ECC (A) and the positive p16 stain supports this diagnosis. (Dr. Tapia) Immunoperoxidase stains were performed on this case to further characterize the lesion. ANTIBODY(CLONE)(BL OCK):RESULT P16 ([id number], [place])(A): strong positive in cells of interest NOTE: One or more of the reagents [...] performance characteristics have been determined by [facility] and/or by the referring laboratory. The [...] to perform high complexity clinical laboratory testing. 12/04/2019 12:56 [facility] Clinical History hx LIEN I, condyloma, LSIL pap with HPV pos 12/04/2019 12:56 [facility] Attestation There was significant resident/fellow involvement in the diagnostic evaluation of this case. By the signature below, the attending physician certifies that they have 1) personally conducted a gross and/or microscopic examination of the described specimen(s), and/or personally interpreted the results of laboratory testing of the described specimen(s), and 2) personally rendered or confirmed the above diagnosis. 12/04/2019 12:56 [facility] at 1256 Gross Description A. Received in formalin labelled with proper patient identification (initials P, E) and endocervix is an aggregate of red-brown mucus, 0.8 x 0.5 x 0.4 cm. Entirely submitted in A1. B. Received in formalin labelled with proper patient identification (initials P, E) and cervix, vagina are 4 lerma to sharma-white irregular to nodular tissues ranging from 0.2 x 0.1 x 0.1 cm to 0.4 x 0.4 x 0.3 cm. The 2 smaller tissues are submitted in B1. The 2 larger tissues are submitted in B2. Note to pathologist: Per Marcos in Dr. Dejesus's office, the cervical biopsy at 10 o'clock and the right lower posterior vaginal biopsy were both placed in specimen B container. Kala Valenzuela 12/02/2019 13:39 12/04/2019 12:56 EST [facility] Scanned Images 12/04/2019 12:56 EST [facility] Tissue ENTIRE ENDOCERVIX / Unknown Collection, Other / Unknown 12/01/2019 15:17 EST 12/02/2019 12:08 EST Tissue specimen (specimen) CERVIX UTERI STRUCTURE / Unknown 12/01/2019 15:17 EST 12/02/2019 12:08 EST Luli Dejesus MD PATHOLOGY ORDERABL ES [facility] [address] [place] [address] documented in this encounter Visit Diagnoses Diagnosis Mixed stress and urge urinary incontinence- Primary Mixed incontinence urge and stress (male)(female) Stress incontinence of urine Low grade squamous intraepith lesion on cytologic smear cervix (lgsil) Papanicolaou smear of cervix with low grade squamous intraepithelial lesion (LGSIL) Cervical high risk human papillomavirus (HPV) DNA test positive documented in this encounter Care Teams Chief Environmental Commitment Officer Relationship Specialty Start Date End Date Emily Bejarano APRN [address] [place] [address] PCP - General 04/30/18 04/25/22 documented as of this encounter
--- OUTSIDE RECORDS SUMMARY | 2024-07-02 18:53 | XMS_ITS | Encounter Summary ---
Author Organization [facility] Address [address] [place] [address] Care Team Providers Care Cooker Operator Name Role Phone Emily Bejarano Lena AWAD Primary Care Provider [phone] Encounter Details Date Type Department Care Team (Latest Contact Info) Description 04/11/2019 Travel Social History Tobacco Use Types Packs/Day [...] No 10/28/2018 documented as of this encounter Plan of Treatment Not on file documented as of this encounter Visit Diagnoses Not on filedocumented in this encounter Care Teams Cooker Operator Relationship Specialty Start Date End Date Emily Bejarano APRN [address] [place] [address] PCP - General 04/30/18 04/25/22 documented as of this encounter
--- OUTSIDE RECORDS SUMMARY | 2024-07-02 18:53 | XMS_ITS | Encounter Summary ---
Author Organization [facility] Address [address] [place] [address] Care Team Providers Care Shed Hand Name Role Phone Emily Bejarano DELMI Primary Care Provider [phone] Reason for Visit * Reason Onset Date Comments Appointment Related 07/29/2019 Encounter Details Date Type Department Care Team (Late st Contact Info) Description 07/29/2019 Telephone [facility] Services - [address] [address] Oscar Gutierrez MD Appointment Related Social History Tobacco Use Types [...] encounter Miscellaneous Notes * Telephone Encounter - Desiree Pendleton - 07/29/2019 1219 EDT Pt called to inquire of referral. I informed her she [facility] and transferred her to get more information. documented in this encounter Plan of Treatment Not on file documented as of this encounter Visit Diagnoses Not on filedocumented in this encounter Care Teams Shed Hand Relationship Specialty Start Date End Date Emily Bejarano APRN [address] [place] [phone] PCP - General 04/30/18 04/25/22 documented as of this encounter
--- OUTSIDE RECORDS SUMMARY | 2024-07-02 18:53 | XMS_ITS | Encounter Summary ---
Author Organization [facility] Address [address] [place] [address] Care Team Providers Care Mill Platform Supervisor Name Role Phone Emily Bejarano Lena AWAD Primary Care Provider [phone] Encounter Details Date Type Department Care Team (Latest Contact Info) Description 11/19/2018 Travel Social History Tobacco Use Types Packs/Day [...] on filedocumented in this encounter Care Teams Mill Platform Supervisor Relationship Specialty Start Date End Date Emily Bejarano APRN [address] [place] [address] PCP - General 04/30/18 04/25/22 documented as of this encounter
--- OUTSIDE RECORDS SUMMARY | 2024-07-02 18:53 | XMS_ITS | Encounter Summary ---
Author Organization [facility] Address [address] [place] [address] Care Team Providers Care Ice Skater Name Role Phone Emily eBjarano Lena AWAD Primary Care Provider [phone] Reason for Referral * Follow Up (Routine) - Closed Specialty Diagnoses / Procedures Referred By Contkenzie t Referred To Contact Obstetrics Diagnoses Supervision of high risk , antepartum Smita Blair MD [address] [place] [address] [facility] Ep[facility] Ob/Mfm [address] [place] [address] Referral ID Status Reason Start Date Expiration Date V isits Requested Visits Authorized [id number] Closed Specialty Services Required 10/30/2018 1 1 Question Answer Reason for Request: 6 week follow up Scheduling Comments (optional ? describe specific scheduling needs if applicable): 6 weeks Expected Discharge Date (Inpatient Only): 10/30/2018 * (Routine) - Receiving Office to Obtain Authorization Specialty Diagnoses / Procedures Referred By Contkenzie t Referred To Contact Smita Blair MD [address] [place] [address] Referral ID Status Reason Start Date Expiration Date Visits Requested Visits Authorized [id number] Receiving Office to Obtain Authorization Specialty Services Required 8 1 1 Comments See your HIGH RISK communication arts lecturer in 6 weeks. Call for an appointment. * (Routine) - Receiving Office to Obtain Authorization Specialty Diagnoses / Procedures Referred By Luiza alvarez Referred To Contact Smita Blair MD [address] [place] [address] Referral ID Status Reason Start Date Expiration Date Visits Requested Visits Authorized [id number] Receiving Office to Obtain Authorization Specialty Services Required 8 1 1 Reason for Visit * Reason Comments Scheduled Encounter Details Date Type Department Care Team (Late st Contact Info) Description 10/28/2018 7:11 EST - 10/30/2018 13:40 EST Hospital Encounter [facility] M[facility] [address] [place] [address] [id number] Edel Valles MD [address] [place] [phone] Luli Dejesus MD [address] [place] [phone] Yesenia Lemus MD [address] [place] [phone] Supervision of high risk , antepartum (Primary Dx); Maternal pregestational diabetes classes B through R, antepartum; Hypothyroidism affecting in third trimester; Obesity affecting in third trimester Discharge Disposition: Home-Health Care Svc Social History Tobacco Use Types Packs/Day Years [...] Sign Reading Time Taken Comments Blood Pressure 124/51 10/30/2018 0741 EST Pulse - - Temperature 36.4 ??C (97.5 ??F) 10/30/2018 0741 EST Respiratory Rate 20 10/30/2018 0741 EST Oxygen Saturation 99% 10/30/2018 0741 EST Inhaled Oxygen Concentration - - Weight 141.3 kg (311 lb 6.4 oz) 10/28/2018 015 EST Height 180.3 cm (5' 11) 10/28/2018 0159 EST Body Mass Index 43.43 10/28/2018 0159 EST documented in this encounter Functional Status Functional [...] No 10/28/2018 documented as of this encounter Discharge Diagnoses Diagnosis O24.12 Pre-existing type 2 diabetes mellitus, in childbirth-O24.12[ICD-10-CM] O99.334 Smoking (tobacco) complicating childbirth-O99.334[ICD-10-CM] E11.9 Type 2 diabetes mellitus without complications-E11.9[ICD-10-CM] O34.211 Matern care for low transverse scar from prev del-O34.211[ICD-10-CM] O69.0XX0 Labor and delivery complicated by prolapse of cord, not applicable or unspecified-O69.0XX0[ICD-10-CM] O99.284 Endocrine, nutritional and metabolic diseases complicating childbirth-O99.284[ICD-10-CM] E03.9 Hypothyroidism, unspecified-E03.9[ICD-10-CM] O99.52 Diseases of the respiratory system complicating childbirth-O99.52[ICD-10-CM] J45.909 Unspecified asthma, uncomplicated-J45.909[ICD-10-CM] F17.210 Nicotine dependence, cigarettes, uncomplicated-F17.210[ICD-10-CM] O99.344 Other mental disorders complicating childbirth-O99.344[ICD-10-CM] F41.8 Other specified anxiety disorders-F41.8[ICD-10-CM] Z79.4 intermediate (current) use of insulin-Z79.4[ICD-10-CM] Z3A.39 39 weeks gestation of -Z3A.39[ICD-10-CM] Z37.0 Single live -Z37.0[ICD-10-CM] Z30.2 Encounter for sterilization-Z30.2[ICD-10-CM] documented in this encounter Discharge Summaries * Smita Blair MD - 10/30/2018 1340 EST Department of ELECTRICAL ELECTRONICS TECHNICIAN Maternal Discharge Summary Information for the patient's : Heidi Fragoso [[id number]] Heidi Fragoso Maternal Name: Yesenia Fragoso : 1980 Attending: No att. providers found Admission: 10/28/2018 Discharge: 10/30/18 Reason for Admission: Admission indication: Planned Delivery Indications: Maternal Indications for delivery: Pre-existing diabetes Planned >/= 39 weeks Indication for delivery: Not applicable Principal Procedure: Low Segment Transverse with T-extnsion , Bilateral tubal ligation Secondary Procedures: None Hospital Course: Yesenia Fragoso is a 38 y.o. at 39w0d who presented to L&D for scheduled RCS and BTL with complicated by hx CS, T2DM, hypothyroidism, asthma, maternal tobacco dependence, anxiety not on medication, and obesity with BMI 47. Cephalic presentation confirmed by US onarrival. Spinal anesthesia administered. Please see operative report for full details. During the section, there was clear fluid on amniotomy. It was difficult to give adequate fundal pressure to effect delivery due to maternal habitus and position. Vacuum attempted withone pull and one pop-off. umbilical cord prolapsed out of hysterotomy prior to delivery, necessitating rapid vertical extension via T incision of the hysterotomy to make room for delivery. A viable??male?? born at 1031??with Apgars of 8??at 1 minute and??9??at 5 minutes, weighing??2912g. The cord was immediately clamped and cut. pitocin then started. Normal placenta with 3V cord delivered with controlled cord traction. Normal uterus, bilateral fallopian tubes and ova audrey. Cord gas showed arterial pH 7.17, base deficit 0.9. The vertical T incision of the hysterotomy was repaired in 4 layers with good hemostasis. The rest of the procedure was uncomplicated. Postoperatively, a TAP Block, then ketorolac were given for additional anesthesia. EBL 1100 cc. The patient's course was uncomplicated. She obtained good pain control, tolerated a regular diet, was ambulating and voiding independently. Her lochia was within normal limits and she initiated . The patient was subsequently discharged on POD#2 on her prior dose of metformin, synthroid, and with nicotine replacement with instructions to follow-up for routine care at 6 weeks. Hospital Problems: Active Hospital Problems Diagnosis Date Noted ??? *Supervision of high risk , antepartum 04/30/2018 Class: Temporary [x] Datin11/04/2018, by Ultrasound [x] PN labs: [...] to October 28 at 9am w/ Dr. Lemus @ 39+0. ARVIND Morfin 11.15.18 Allergies: Morphine Medications during current : No medications prior to admission. LABOR INFORMATION Labor Onset: None Labor Analgesia: None Amniotic Fluid Color: Duration Rupture of Membranes: hours minutes DELIVERY INFORMATION Low Segment Transverse with T-extnsion ; Delivery / Repair Anesthesia: Spinal, EBL: 1100 cc Placenta: Method: Controlled Cord Traction Labor and Delivery Complications and/or Procedures: Bilateral Tubal Ligation INFORMATION Date: 10/28/2018 Time: 1031 Weight: 2912 g (6 lb 6.7 oz) Sex: male Apgars: 8 9 Immunizations indicated : None Clinical Issues Needing Follow-up: Synthroid dosing at 6 wk visit Metformin dosing Smoking cessation Contraception Plan: BTL Other: none Results Pending at Discharge: Test results still pending from this admission Procedure Component Value Units Date/Time Surgical Pathology [[id number]] Collected: 10/28/182320 Lab Status: In process Updated: 10/28/182321 Upcoming Appointments Dec 11, 2018 13:00 EST Post Visit with Myah Freitas MD [facility] Obstetrics & Midwifery - [facility] (--) [address] [place] [id number] Follow-up appointments and procedures Amb Consult/Follow Up Maternal Medicine Reason for Request: 6 week follow up Scheduling Time Frame: 6 weeks Expected Discharge Date (Inpatient Only): 10/30/2018 Authorizing Provider: Smita Blair MD Keep all scheduled appointments Authorizing Provider: Smita Blair MD You should follow up with your High Risk Manager Hiv See your HIGH RISK communication arts lecturer in 6 weeks. Call for an appointment. Authorizing Provider: Smita Blair MD Condition at Discharge: stable Discharge Disposition: to home Smita Blair MD 10/30/2018 14:35 documented in this encounter Medications at Time [...] Each 3 06/16/2018 levothyroxine (SYNTHROID) 112 mcg tabletIndications:Ta ke 2 tabs Take 2 tabs by mouth daily. 180 Tab 2 05/29/2018 metFORMIN (GLUCOPHAGE) 500 mg tablet Take 1,000 mg by mouth 2 times daily. acetaminophen-codein e (TYLENOL #3) 300-30 mg per tablet Take 1 Tab by mouth every 4 hours as needed for Pain. 10 Tab 0 09/17/2011 05/05/2020 albuterol (ACCUNEB) 0.63 mg/3 mL nebulizer solution Take 3 mL by nebulization every 4 hours as needed for Wheezing. 3 mL 3 10/30/2018 04/25/2020 docusate sodium (COLACE) 100 mg capsule Take 1 Cap by mouth 2 times daily. 60 Cap 5 10/30/2018 04/25/2020 fluticasone-salmeter ol (ADVAIR) 250-50 mcg/dose diskus inhaler Inhale 1 Puff as directed 2 times daily. 60 Each 1 10/30/2018 04/25/2020 fluticasone-salmeter ol (ADVAIR) 250-50 mcg/Dose diskus inhaler Inhale 1 Puff as directed every 12 hours. 04/25/2020 HYDROmorphone (DILAUDID) 2 mg tablet Take 1 Tab by mouth every 4 hours as needed for Pain. Daily Max: 12 mg 20 Tab 10/30/2018 08/04/2019 ibuprofen (MOTRIN) 600 mg tablet Take 1 Tab by mouth 3 times daily. 300 Tab 5 10/30/2018 04/25/2020 nicotine (NICODERM CQ) 14 mg/[address] 1 Patch onto the skin daily. 21 Each 2 10/30/2018 04/25/2020 nicotine (NICOTROL) 10 mg inhaler Inhale 1 cartridge as directed as needed for Smoking Cessation. 1 Cartridge 11 10/30/2018 04/25/2020 documented as of this encounter Ordered Prescriptions Prescription Sig Dispensed Refills Start Date End Da te acetaminophen (TYLENOL) 325 mg tablet Take 2 Tabs by mouth every 4 hours as needed for Pain. 300 Tab 5 10/30/2018 nicotine (NICOTROL) 10 mg inhaler Inhale 1 cartridge as directed as needed for Smoking Cessation. 1 Cartridge 11 10/30/2018 04/25/2020 nicotine (NICODERM CQ) 14 mg/[address] 1 Patch onto the skin daily. 21 Each 2 10/30/2018 04/25/2020 albuterol (ACCUNEB) 0.63 mg/3 mL nebulizer solution Take 3 mL by nebulization every 4 hours as needed for Wheezing. 3 mL 3 10/30/2018 04/25/2020 fluticasone-salmetero l (ADVAIR) 250-50 mcg/dose diskus inhaler Inhale 1 Puff as directed 2 times daily. 60 Each 1 10/30/2018 04/25/2020 ibuprofen (MOTRIN) 600 mg tablet Take 1 Tab by mouth 3 times daily. 300 Tab 5 10/30/2018 04/25/2020 HYDROmorphone (DILAUDID) 2 mg tablet Take 1 Tab by mouth every 4 hours as needed for Pain. Daily Max: 12 mg 20 Tab 10/30/2018 08/04/2019 docusate sodium (COLACE) 100 mg capsule Take 1 Cap by mouth 2 times daily. 60 Cap 5 10/30/2018 04/25/2020 documented in this encounter Discharge Disposition Disposition Code Departure Means Destination [place] [facility] [place] in [place] encounter Progress Notes * Karina Dyer RN - 10/30/2018 7867 EST Provided pt with carseat voucher and gas card for d/c. Karina Dyer poll watcher [phone] Pager [phone] * Monty Gan MD - 10/30/2018 9599 EST Postoperative Progress Note Chief Complaint: s/p repeat LTCS with T incision and BTL Subjective: Yesenia Fragoso is feeling well this morning. Strongly desires to go home early this morning. She reports her bleeding is minimal. She is ambulating without difficulty. She is voiding, passing gas, had a BM yesterday. Denies dizziness, nausea. Objective: Vital Signs Temp: [36.3 ??C (97.3 ??F)-36.6 ??C (97.9 ??F)] (), Heart Rate: [78 BPM-91 BPM] (), Resp: [16-20] (), BP: (108-127)/(43-63) (), SpO2: [98 %-100 %] () No intake or output data in the 24 hours ending 10/30/18 0543 UOP: Not recorded Gen: NAD, obese Resp: CTAB, non-labored breathing, no wheezes CV: RRR, normal S1/S2 Abd: +BS, soft, appropriately tender, fundus firm below umbilicus, incision clean, dry, intact without erythema Ext: WWP Labs: Lab Results Component Value Date/Time HCT 28.8 (L) 10/29/2018 06:56 HCT 34.9 10/28/2018 07:50 Assessment/Plan: Yesenia Fragoso is a 38 y.o. POD#2 s/p repeat LTCS with T incision and BTL [id number]. Patient is recovering well, afebrile and hemodynamically stable with adequate UOP. Routine care: - Continue routine post-op/post- care. Continue current pain regimen. Encourage IS, ambulation, PO intake; support BF. - Male : circ completed - PPD: discussed. - Formula feeding, not planning to breastfeed - Rh pos, Rubella Imm, Varicella Imm - Pre-op Hct 34, EBL 1100. POD1 Hct 28, appropriate. T2DM Fasting glucoses yesterday were 77 and 106. - On metformin prior to and during - Will monitor glucoses pre-prandial and qhs - Will likely dc on 500 mg metformin once daily Hypothyroidism TSH 22.40 and free T4 0.8, could indicate patient not taking at home. - Will continue prior dose of 225 mcg daily. Will retest in 6 weeks. Anxiety - Not on medication Asthma - Ordered for home flovent and albuterol Tobacco dependence - Ordered for 14 mg nicotine patch daily Dispo - Contraception: BTL - Patient desires dc home today - Discussed wound care, when to call - Will have 6 wk PP f/u Smita Blair MD 10/30/2018 6:52 PGY2, OBGYN Pager #[phone] I have seen and examined the patient above. I agree with the assessment and plan with the changes as noted below: Yesenia Fragoso is a 38 y.o. POD#2 s/p RLTCS with T-extension and bilateral partial salpingectomy at 39w2d. was complicated by type 2 diabetes and hypothyroidism. Prior to delivery, patient was on insulin glargine and metformin. Her blood sugars have been well-controlled without medications since delivery. She desires to discharge home on her prepregnancy metformin 500 mg daily. On admission, her TSH was 22. She reports compliance with medication. Reviewed how to take medication and reinforced compliance, will recheck TSH at 6 weeks PP. Patient with history of anxiety and depression and sees a counselor weekly. She feels comfortable discharging home and knows to call with any concerns. Yesenia strongly desires discharge home today. She is tolerating a regular diet, voiding spontaneously, ambulating independently, and her pain is controlled on oral pain medication. She is breastfeedingwithout difficulty. She has had a bowel movement. Plan for discharge home today with PP follow-up in 6 weeks. She knows when and how to call with concerns. Monty Gan MD Maternal Medicine Fellow Pager [phone] * Karina Dyer RN - 10/29/2018 1011 EST Initial Case Management/Social Work Assessment and Discharge Plan/Readmission Risk Assessment REASON FOR ADMISSION: Supervision of high risk , antepartum Patient understands reason for admission: Yes PATIENT CONTACT INFO VERIFIED: Yes PATIENT ADDRESS VERIFIED: Yes LIVING ARRANGEMENTS AND ACCESSIBILITY ISSUES: Living Arrangements: Children What in home social supports are available to the patient? Friends / neighbors Is 24/7 care available? ADVANCED DIRECTIVES, POA &/or COLST IN PLACE: Healthcare Directive: No, patient does not have advance directive for healthcare treatment DIRECTIVES FOR FINANCES: Directive For Finances: No TRANSPORTATION: Transportation: (pt states she has an infant carseat, she will have a friend pick her up. CM/SW will provide a gas card.) CULTURAL, JAIN and/or LANGUAGE factors affecting health care/discharge planning: Spiritual/Cultural Requests: None Any factors affecting health care/discharge planning?: No Insurance in Place: Yes Medical Insurance: Yes Type of insurance: Medicaid Medicaid Type: Community Referred to patient financial services: No DISCHARGE RISK ASSESSMENT: Total # selected above: Tentative plan to address the risk of re-hospitalization for those at HIGH MODERATE RISK: RAPT TOOL: Patient expects to be discharged to: (pt to d/c to home with infant) SBIRT: FUNCTIONAL STATUS: Activities patient requires assistance: None COMMUNITY RESOURCES/SUPPORTS: Primary Care Provider: Emily Bejarano PCP Verified: Yes Specialists: None Type of Home Health Services: Nurse visit DME Provider: Pharmacy: [facility]-[address] [facility] [place], [place] - [address] [place] [address] [address] [facility] [phone] Home Health: ([facility] Other: WIC, [employer] [facility], [employer](pt has been givne the paperwork to submit to economic services,she has been given the number to call WIC and make a PP appt.) POST HOSPITAL TRANSITION PLAN: Pt to d/c to home. She will f/u up with OB, Pedi and community resources. Karina Dyer RN 10/29/2018 10:11 * Yesenia Lemus MD - 10/29/2018 0654 EST Postoperative Progress Note Chief Complaint: s/p repeat LTCS with T incision and BTL Subjective: Yesenia Fragoso is crying this morning because her FOB called her high and requested a DNAtest. She reports that it is my fault I shouldn't have answered the phone. He is on the run from the police. She reports that she does have good support system although not from any of her children's fathers. She feels that she is doing well physically. She is walking without dizziness. She is voiding, passing gas. Denies nausea. Has an appetite. Objective: Vital Signs Temp: [36 ??C (96.8 ??F)-36.9 ??C (98.4 ??F)] (), Heart Rate: [69 BPM-89 BPM] (), Resp:[14-19] (), BP: (86-123)/(44-64) (), SpO2: [97 %-100 %] () Intake/Output Summary (Last 24 hours) at 10/29/2018 0654 Last data filed at 10/28/2018 2323 Gross per 24 hour Intake 4965 ml Output 600 ml Net 4365 ml UOP: 400cc/ 6 hrs Gen: NAD, obese Resp: CTAB, non-labored breathing, no wheezes CV: RRR, normal S1/S2 Abd: +BS, soft, appropriately tender, fundus firm @ 2cm umbilicus, pressure bandage dressing c/d/i Ext: WWP, 2+DPs, 1+ PE bilat Labs: Lab Results Component Value Date/Time HCT 34.9 10/28/2018 07:50 HCT 39.1 09/11/2017 00:02 Assessment/Plan: Yesenia Fragoso is a 38 y.o. POD#1 s/p repeat LTCS with T incision and BTL [id number]. Patient is recovering well, afebrile and hemodynamically stable with adequate UOP. Routine care: - Continue routine post-op/post- care. Continue current pain regimen. Encourage IS, ambulation, PO intake; support BF. - Male : pt desires circ, will be done prior to discharge. - PPD: discussed today, pt reports h/o depression outside of but states it was not exacerbated after her previous 2 children. Will be mindful and encouraged to reach out with any questions or concerns. - Formula feeding, not planning to breastfeed - Rh pos, Rubella Imm, Varicella Imm - Pre-op Hct 34, EBL 1100. Will f/u am cbc. T2DM - On metformin prior to and during - Will monitor glucoses pre-prandial and qhs - Will likely dc on metformin Hypothyroidism TSH 22.40 and free T4 0.8 today. Patient reports that she was taking at home. - Will continue prior dose of 225 mcg daily. Will retest in 6 weeks. Anxiety - Not on medication Asthma - Ordered for home flovent and albuterol Tobacco dependence - Ordered for 14 mg nicotine patch daily Dispo - Contraception: BTL - Likely d/c home POD#3-4 Smita Blair MD 10/29/2018 6:55 PGY2, OBGYN Pager #[phone] Attestation: I saw and examined the patient 10/29/2018. I agree with the resident's/fellow's findings and plans as documented. Meeting initial milestones. No e/o hemorrhage/infection. Hct appropriate at 28.8 this AM. Metformindiscontinued. Will monitor fasting BS while inpatient, can re- start at discharge if having hyperglycemia. Will continue 225 mcg levothyroxine daily, suspect non-compliance, but she reports taking it regularly. Will re- check TFTs in 6 weeks. Mood ok. Several social stressors, but she reports having good support. Denies h/o PP depression. Continue routine PO care as detailed above. Yesenia Lemus MD 10/29/2018 16:38 * Smita Blair MD - 10/28/2018 3458 EST Postoperative Progress Note Chief Complaint: s/p repeat LTCS with T incision and BTL Subjective: Yesenia Fragoso reports she is doing well with good pain control. She is not yet passing flatus but feels like she is about to. She is tolerating a regular diet without nausea or vomiting. She has not yet ambulated. She has a ruano in place. Lochia is moderate. Does not plan to breastfeed because it was too difficult with her oldest son. The patient denies CP/SOB/N/V/TORRES/Dizziness/F/C/LE pain. Objective: Vital Signs Temp: [36.4 ??C (97.5 ??F)-36.5 ??C (97.7 ??F)] (), Heart Rate: [69 BPM-89 BPM] (), Resp: [14-19] (), BP: (86-114)/(45-64) (), SpO2: [97 %] () Intake/Output Summary (Last 24 hours) at 10/28/2018 1659 Last data filed at 10/28/2018 1421 Gross per 24 hour Intake 4415 ml Output 50 ml Net 4365 ml UOP: 150cc/3hrs Gen: NAD, obese Resp: CTAB, non-labored breathing, no wheezes CV: RRR, normal S1/S2 Abd: +BS, soft, appropriately tender, fundus firm @ 2cm umbilicus, pressure bandage dressing c/d/i Ext: WWP, 2+DPs, 1+ PE bilat Labs: Lab Results Component Value Date/Time HCT 34.9 10/28/2018 07:50 HCT 39.1 09/11/2017 00:02 Assessment/Plan: Yesenia Fragoso is a 38 y.o. POD#0 s/p repeat LTCS with T incision and BTL [id number]. Patient is recovering well, AVSS and adequate UOP. Routine care: - Continue routine post-op/post- care. Continue current pain regimen. Encourage IS, ambulation, PO intake; support BF. - Male infant: pt desires circ, will be done prior to discharge. - D/C Ruano with ambulation - Formula feeding, not planning to breastfeed - Rh pos, Rubella Imm, Varicella Imm - Pre-op Hct 34, EBL 1100. Will draw am cbc tomorrow. T2DM - On metformin prior to and during - Will monitor glucoses pre-prandial and qhs - Will likely dc on metformin Hypothyroidism TSH 22.40 and free T4 0.8 today. Patient likely was not taking synthroid at home. - Will continue wander 225 mcg daily Anxiety - Not on medication - Will career placement services counselor on PPD Asthma - Ordered for home flovent and albuterol Tobacco dependence - Ordered for 14 mg nicotine patch daily Dispo - Contraception: BTL - Likely d/c home POD#3-4 Kalie Gandara MD 10/28/2018 17:21 PGY-1 Obstetrics and Gynecology Pager# [phone] * Anabel Tai, RN - 10/28/2018 0892 EST 0776- Pt admitted to L&D IP 1 for RCS with BLTL. Pt oriented to room, call light, emergency call light and pull cord in restroom. Pt accompanied by Terri. FOB not involved and currently on the run from police. 0730- Anesthesia present to assess and assist with IV placement. 0745- IV access initiated by anesthesia team. Labs drawn and sent down. 0900- Dr Blair in to U/S for position. 1230- Returned to room S/P CS and BLTL. Call light in reach, support person at bedside. Pt reports pain at 5-6 on 1-10 scale but declines additional pain meds at this time. documented in this encounter H&P Notes * Yesenia Lemus MD - 10/28/2018 0215 EST Department of Obstetrics History & Physical Admit Date: (Not on file) Chief Complaint Patient presents with ??? Scheduled Admission indication: Planned Maternal transport/Outside delivery: No HPI: Yesenia Fragoso is a 38 y.o. at 39w0d by 7w2d ultrasound presenting for scheduled secondary repeat LTCS and BTL for maternal choice and oblique breech presentation on most recent ultrasound. Patient feeling well with no specific complaints.Reports ctx which are at baseline. Denies vaginalbleeding and leakage of fluid. Endorses normal movements. This is complicated by: 1. History of one prior LTCS. Declined TOLAC. 2. Oblique breech presentation. Declined ECV as prefers rLTCS. 3. Pre-existing T2DM treated with metformin 500mg qd pre- and throughout . Poor compliancewith treatment and FS monitoring. Most recent HbA1c 5.2 on 08/07. Normal detailed anatomic evaluation and echo. EFW 2969g (47%ile) with WILLY 15.7cm on 10/14. 4. Hypothyroidism. Takes 224mcg levothyroxine qd. Last TSH 3.04 and T4 1.1 on 08/07. Repeat ordered but never done. 5. Anxiety and depression (not on meds) 6. Asthma. Managed with Advair and prn albuterol. 7. Maternal smoking 8. Class II obesity. Pre- BMI 47.9. Current BMI 43.5 following 36lb weight loss this . Review of Systems: Negative except as stated in HPI Current Complications: Does patient have any current complications?: Yes Diabetes: Type 2 Thyroid disease: Hypothyroid Pulmonary disease: Asthma Psychiatric disease: Depression Assisted reproduction this : None Prior admission for PTL (this ): No Preeclampsia prevention: Aspirin Patient involved in a clinical trial?: No Prior : None growth abnormality: None Multiple gestation: No, Novoa Second or third trimester bleeding: None Abnormal placentation/cord: None Alloimmunization: None Testing: Genetic screening: NIPT Genetic screening abnormalities: None Genetic procedures: None testing: NST;BPP Maternal/ imaging: Detailed US;First trimester US Congenital anomalies: None Chromosomal anomaly: None infection: None Dx requiring follow-up: None procedures: None procedures: None Selective reduction: None Medication Exposure: Significant medication exposure: None Labs: Rh pos / Antibody screen neg / Rubella imm / Varicella unknown / RPR neg / Gonorrhea neg / Chlamydia neg / Hepatitis B neg / Hepatitis C neg / HIV neg / 1hr GTT not indicated / 3hr GTT not indicated / GBS neg FOB History: Father of the baby medical history: Not significant OB History Para Term AB Living 3 2 2 2 SAB TAB Ectopic Multiple Live Births 2 # Outcome Date GA Lbr Blake/2nd Weight Sex Delivery Anes PTL Lv 3 Current 2 Term 04/17/10 40w0d 3714 g (8 lb 3 oz) M CS-LTranv Spinal, EPI N JESSICA 1 Term 03/25/02 42w0d 3402 g (7 lb 8 oz) M Vag-Spont Spinal, EPI JESSICA Comments: System Generated. Please review and update details. Previous Complications: Has patient had any prior complications?: No Prior delivery: Low segment transverse Past Medical History Past Surgical History Past Medical History: Diagnosis Date ??? Anxiety ??? Asthma ??? Depression stopped prozac 08/2011 when discovered ??? Diabetes mellitus affecting in first trimester 04/30/2018 ??? Hypothyroidism affecting , antepartum 04/30/2018 ??? Migraines No past surgical history on file. Past Gynecological History Social History Last pap 02/25/18 (NILM) Social History Tobacco Use ??? Smoking status: Current Every Day Smoker Packs/day: 0.25 ??? Smokeless tobacco: Never Used ??? Tobacco comment: smoking 5 per day Substance Use Topics ??? Alcohol use: No reports that she does not use drugs. Medications Allergies No medications prior to admission. Allergies Allergen Reactions ??? Morphine Hives Objective: Weights Prepregnancy Weight: 155.6 kg (343 lb) Weight : (!) 141.3 kg (311 lb 6.4 oz) Prepregnancy BMI (Calculated): 47.94 Weight Gain (kg) (Calculated): -14.33 kg No data found. General: A&Ox3, in NAD, looks well Cardiovascular: RRR Respiratory: no increased work of breathing Abdomen: soft, non-tender, appropriately gravid Extremities: WWP, no calf swelling/tenderness Physical Lie: Longitudinal Presentation: Breech Clinical EFW: 3 kg (6 lb 9.8 oz) FHT: 130 baseline. moderate variability, + accels, - decels; Cat I tracing. TOCO: no ctx SVE: Deferred Bedside US: cephalic Assessment/Problems/Plan: Yesenia Fragoso is a 38 y.o. at 39w0d by 7w2d ultrasound presenting for scheduled secondary repeat LTCS and BTL for maternal choice. Vitals wnl. Admission NST reactive.Overall maternal and status reassuring. 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 Smita Blair MD 10/28/2018 9:08 PGY2, OBGYN Pager #[phone] Attestation: I saw and examined the patient 10/28/2018. I agree with the resident's/fellow's findings and plans as documented. Here for RLTCS/BTL. Cephalic on bedside US, but still desires CD. Rh+. Hct 34.2. Fasting fingerstick BS 67. Will check TFT's as have not been checked since July. Consent obtained. Yesenia Lemus MD 10/28/2018 17:59 documented in this encounter OR Notes * OR Surgeon - Yesenia Lemus MD - 10/28/2018 1247 EST FORMAL OPERATIVE REPORT Name: Yesenia Fragoso : 1980 Date of Service: 10/28/2018 Surgeon: Yesenia Lemus MD Shelter Supervisor: Smita Blair MD. Yesenia Zhao MD. Monty Gan MD. Procedure: Repeat Low Transverse Section with T-extension superiorly via Pfannenstiel withdouble layer uterine closure and [place] tubal ligation Anesthesia: Spinal, TAP Block, Ketorolac Preoperative Diagnosis: 1. at 39w0d, with hx LTCS for NRFA 2. Type 2 Diabetes Mellitus 3. Hypothyroidism 4. Asthma 5. Maternal tobacco dependence 6. BMI 47 Postoperative Diagnosis: Same, delivered Indications: This is a 38 y.o. at 39w0d EGA who presented to labor and delivery for scheduled repeat section and bilateral tubal ligation. The patient was counseled on the risks, benefits and alternatives to the procedure and a written consent was signed prior to the start of the procedure. Findings: 1. Clear fluid on amniotomy 2. Viable male infant born at 1031 with Apgars of 8 at 1 minute and 9 at 5 minutes, weighing 2912g. 3. Normal placenta with 3V cord delivered with controlled cord traction 4. Normal uterus, bilateral fallopian tubes and ovaries. 5. Cord gas showed arterial pH 7.17, base deficit 0.9. Narrative: The patient was taken to the operating room with an IV in place where WHO checklist was performed with the patient awake and participatory. Spinal anesthesia was found to be adequate. She was preppedand draped in the normal sterile fashion in the dorsal supine position with a leftward tilt. The Traxi device was then placed for elevation of the pannus. An allis test was performed to ensure adequate anesthesia. A Pfannenstiel incision was made with the scalpel and carried down to the underlying layer of fascia. The fascia was then incised in the midline and the incision was extended laterally with the Bhandari scissors. The inferior aspect of the fascial incision was then grasped with the eric clamps, elevated, and the underlying rectus muscles dissected off bluntly then sharply. Attention was then turned to the superior aspect of this incision, which was grasped, tented out with eric clamps, and the rectus muscle dissected off bluntly then sharply. The rectus muscles were then in the midline and the peritoneum identified and entered sharply. This incision was then extendedlaterally under tension until the uterus was well visualized. The Rudy retractor was then inserted. The vesicouterine peritoneum was grasped with pick-ups, incised with Metzenbaums, and a bladder flap was created digitally. The bladder blade was then insertedover this flap. The lower uterine segment was incised in a transverse fashion with the scalpel. Theuterine incision was then extended laterally bluntly. The bladder blade was removed. The infant's head was brought to the hysterotomy. The bandage scissors were used to extend the right side of the hysterotomy. The head was floating and somewhat difficult to flex. A vacuum was applied to the vertex and used to bring the head to the hysterotomy with one pull, but then popped off. The Rudy r etractor was removed. A superior T incision was then made into the contractile portion of the uterus and the head delivered atraumatically with the body easily following. The cord was clamped and cutand the infant was handed off to the waiting pediatricians. The placenta was then removed with gentle traction, the uterus exteriorized, and the uterus was cleared of all clots and debris. The uterine vertical extension was repaired with three running, locked layers with 0-chromic. The uterine serosa was then repaired with the fourth layer in a baseball stitch. The horizontal aspect of the hysterotomy was then repaired with 0-chromic in a running, locked fashion. A second layer was then createdwith the same suture in a horizontal imbricating fashion. A figure of eight was placed in the middle of the horizontal hysterotomy for hemostasis. Attention was then turned to the right fallopian tube, which was identified by its fimbria. The isthmus was elevated with a [place]. The Bovie was used to create a window. The fallopian tube was thendoubly ligated with 2-0 plain gut at the medial and lateral aspects, then the segment of fallopian tube was cut with Metzenbaum scissors. The lumen was identified on both sides and the sites were hemostatic. The same procedure was then repeated on the left side. The uterus was then returned to the abdomen. The gutters were cleared of all clots and debris. The fascia was reapproximated with 0 PDS in a running fashion. The subcutaneous tissue was irrigated then reapproximated with 2-0 plain gut in two layers. The skin was closed with 4-0 Monocryl. The patient tolerated the procedure well. Sponge, lap and needle counts were correct times two. Twograms of cephazolin were given prior to incision. The patient was taken to [place] [id number] PACU in stablecondition. Of note, given the T incision made into the contractile portion of the myometrium, if the patient were to have a tubal reversal she should not labor with a future . Dr. Lemus waspresent throughout the entire procedure. Estimated blood loss: 1100 cc IV fluids: 2.5 L Urine Output: 150 cc Specimens Sent: Fallopian tube segments Retained Materials: Ruano Complications: None Disposition: L&D, then B7 Smita Blair MD 10/28/2018 12:47 PGY2, OBGYN Pager #[phone] Attending attestation: I was present during the entire procedure. I saw and examined the patient 10/28/2018. I agree with the findings and plan of care documented in the resident's/fellow's note. RLTCS/BTL. Difficult to give adequate fundal pressure to effect delivery due to maternal habitus and position. umbilical cord prolapsed out of hysterotomy prior to delivery, necessitatingrapid vertical extension of hysterotomy to make room for delivery. This was repaired in 4 layers with good hemostasis. Arterial cord pH 7.17, BD 0.9. Yesenia Lemus MD 10/28/2018 18:08 documented in this encounter Miscellaneous Notes * Plan of Care - Janene Lui RN - 10/30/2018 1042 EST Problem: Daily Care Plan Goals Goal: Care Plan Documentation 10/30/18 0741 Care Plan Focus Area of Focus Discharge Plan Goal This Shift prepare family for disch Data: Mom stated she had turned certificate in prior to today, She is not listing a fob, She said she watched injoy videos on her phone. I discussed the 2 pages in the injoy book that say what to call the ob and pedi for. Info on avs was totally discussed and covered before discharge. carenotes given on her meds. vna referral called Action: reinforce all education. vna said they would get in to see her tomorrow. Response: mom will be discharged when her ride arrives, ambulating. Janene Lui RN 10/30/2018 10:38 * Plan of Care - Veronica Ramsay RN - 10/30/2018 0651 EST Problem: Daily Care Plan Goals Goal: Care Plan Documentation Outcome: Ongoing 10/29/18 2315 Care Plan Focus Area of Focus Pain/ Comfort Goal This Shift adequate pain control Data:??POD 2 s/p repeat and BTL. 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 Pain well controlled with prescribed medication per MAR. ? Action: PP assessment, VS as ordered, medicate per MAR. Cluster care to promote rest. ? Response: AVSS, pain controlled. Patient would like to be discharged today. Will continue to monitor. Problem: Pain: Goal: Pain level will decrease Outcome: Ongoing Problem: Skin Integrity: f Goal: Demonstration of wound healing without infection will improve Outcome: Met This Shift Problem: Lifecycle: : Goal: Chance of risk for complications during the period will decrease Outcome: Met This Shift * Plan of Care - Alexander Garcia RN - 10/29/2018 1921 EST Problem: Daily Care Plan Goals Goal: Care Plan Documentation 10/29/18 1905 Care Plan Focus Area of Focus Pain/ Comfort Goal This Shift pain level will remain tolerable Data: Day #1 s/p repeat C/S. Up ad david and ambulation tolerated well. Pain level rated 7/10 at worst after walking off the unit. Action: Pain medications given PRN. Response: Stable PP pt, AVSS. Patient reporting adequate pain control with interventions. Will continue to monitor pain levels. Alexander Garcia RN 10/29/2018 19:05 * Anesthesia Post-Eval - Elda Mendoza MD - 10/29/2018 1618 EST OB Anesthesia Note Yesenia Fragoso [id number] Anesthesia received: Neuraxial; No residual block Vital Signs: Temp: 36.6 ??C (97.9 ??F), Heart Rate: 89 BPM, BP: 108/43, Resp: 20, SpO2: 99 % Vital signs Stable: Yes Consciousness: Awake, Alert Patient's participation in evaluation:Able to participate Temperature Status: Normothermic Respiratory Status: Airway patent Supplemental O2: Room air Oxygen Saturation: Appropriate for condition Cardiovascular Status: Appropriate for condition Post-op Hydration: Adequate Nausea / Vomiting: Pain Control: Adequate Current Pain Score: Numeric Pain Level (Scale 1-10): 6, [place] Pain Rating (Scale 0-10): Hurts even more Post-op Assessment: Tolerated procedure well, Patient satisfied with anesthesia Disposition: Inpatient Complications: No apparent anesthetic complications Elda Mendoza MD 10/29/2018 16:18 * Plan of Care - Stephanie Astudillo RN - 10/29/2018 0442 EST Problem: Daily Care Plan Goals Goal: Care Plan Documentation Outcome: Ongoing 10/28/182016 Care Plan Focus Area of Focus Circulatory Status Goal This Shift AVSS D: Stable dday pt s/p c/s. A: Monitor VS per protocol. R: AVSS. Will continue to monitor. * L&D Delivery Note - Yesenia Lemus MD - 10/28/2018 1251 EST Delivery Information Yesenia Fragoso is a 38 y.o. at 39w0d who presented to L&D for scheduled RCS and BTL with complicated by hx CS, T2DM, hypothyroidism, asthma, maternal tobacco dependence, anxiety not on medication, and obesity with BMI 47. Cephalic presentation confirmed by US on arrival. Spinal anesthesia administered. Please see operative report for full details. Clear fluid on amniotomy. Vacuum attempted with one pull and one pop-off. T- incision then made. Viable male born at 1031 with Apgars of 8 at 1 minute and 9 at 5 minutes, weighing 2912g. Cord immediately clamped and cut. pitocin then started. Normal placenta with 3V cord delivered with controlled cord traction. Normal uterus, bilateral fallopian tubes and ovaries. Cord gas showedarterial pH 7.17, base deficit 0.9. TAP Block, then ketorolac given. EBL 1100 cc. delivered by Low Segment Transverse . Heidi Fragoso [phone] at Gestational Age: 39w0d delivered by Low Segment Transverse weighed 2912 g (6 lb 6.7 oz), 8 /9 , sent to nursery after delivery. Maternal: Delivery Plan Outcome Planned home ? Not planned External cephalic version attempt indicated? Not indicated Delivery as waterbirth? No REINALDO after : No REINALDO Delivery Indications Maternal Indications for delivery/comments: Pre-existing diabetes Planned >/= 39 weeks Indications for delivery/comments: Not applicable Intrapartum Medication Intrapartum preeclampsia: No Intrapartum Mg: No Intrapartum Mg Indication: N/A Labor Labor onset: No REINALDO Cervical ripening/induction agent: N/A Labor augmentation: None Augmentation indication/comments: N/A Infection/Risk of Sepsis GBS Status: Negative GBS treatment: PROM > or = 18 Hours: N/A Maternal Fever > or = 38 C: N/A Maternal Tachycardia > 100 bpm: N/A Tachycardia > 160 bpm: N/A Uterine tenderness: N/A Foul odor of amniotic fluid: N/A Chorioamnionitis: N/A HIV Status/treatment: Not indicated Hepatitis B Surface Antigen: Negative Syphilis: Negative Assessment monitoring: Contiunous - External heart rate characteristics/comments: Cat 1 demise: N/A Anesthesia Labor analgesia: None Delivery anesthesia: Spinal, Adjunctive analgesia: Ketorolac, TAP Block , Anesthetic complications: None Additional comments: Maternal Delivery Delivery type: Low Segment Transverse with T-extnsion Presentation: Vertex Position: ROT Planned indication: Planned primary, Forceps Attempted: N/A Vacuum Attempted: N/A Operative Vaginal Delivery Indication: N/A Station - Initial Application: N/A Details of Shoulder Dystocia (if applicable) Dystocia Present? No Maneuvers Performed (if applicable) Placenta Delivered: Delivery method: Controlled Cord Traction Morphology: Normal Disposition: Refrigerator Cord Details Vessels: 3 Vessels Complications: None Nuchal intervention: Nuchal cord description: Cord around: Number of loops: Gases Sent? Yes Cord Blood Sent: None Stem cell collection (by MD)? No Comments: Lacerations/Episiotomy Lacerations: No Periurethral: N/A Additional Lacerations: N/A Episiotomy: None Indication: N/A Repair Suture: None Procedures Additional Procedures: Bilateral Tubal Ligation Hemorrhage (if applicable) hemorrhage: EBL > 1000 cc Estimated blood loss (mL): Uterotonics/PPH Procedures: Oxytocin, Blood Products Transfused: (if applicable) None Labor Length Duration of 1st Stage: hours minutes Duration of 2nd Stage: hours minutes Duration of 3rd Stage: hours minutes Duration of Cord Clamp Delay: 0 seconds Precipitous Labor (<3 hours): No Prolonged Labor (>20 hours): No [place]: Date of : 10/28/2018 Time of : 1031 Sex: male Weight (grams): 2912 g (6 lb 6.7 oz) Length (in): 19.5 Head circumference (in): 13.78 Observed anomalies, comments: Meconium Present at Delivery: No (<37 wks): No Late (34-37 wks): No Steroid Course: Not indicated Indication: N/A PPROM Gestational Age: N/A APGARS Totals: 8 /9 /-/-/- Resuscitation Resuscitation: N/A Delivery Personnel Delivering Clinician: YESENIA LEMUS Additional Personnel: ANABEL TAI;WILLARD BARNARD;KATE PARRA;ELDA MENDOZA;SMITA BLAIR;MONTY GAN;YESENIA ZHAO ROM Duration: rupture date or rupture time have not been documented Induction Duration (if applicable): Labor and Delivery comments: Smita Blair MD 10/28/2018 17:33 Attending attestation: I was present during the entire procedure. I saw and examined the patient 10/28/2018. I agree with the findings and plan of care documented in the resident's/fellow's note. Yesenia Lemus MD 10/28/2018 18:15 * Brief Op Note - Yesenia Lemus MD - 10/28/2018 1238 EST Brief Operative Report Name: Yesenia Fragoso : 1980 Date of Service: 10/28/2018 Surgeon: Yesenia Lemus MD Shelter Supervisor: Smita Blair MD. Yesenia Zhao MD. Monty Gan MD. Procedure: Repeat Low Transverse Section with T-extension superiorly via Pfannenstiel withdouble layer uterine closure and [place] tubal ligation Anesthesia: Spinal, TAP Block, Ketorolac Preoperative Diagnosis: 1. at 39w0d, with hx LTCS for NRFA 2. Type 2 Diabetes Mellitus 3. Hypothyroidism 4. Asthma 5. Tobacco smoking 6. BMI 47 Postoperative Diagnosis: Same, delivered Findings: 1. Clear fluid on amniotomy 2. Viable male infant born at 1031 with Apgars of 8 at 1 minute and 9 at 5 minutes, weighing 2912g. 3. Normal placenta with 3V cord delivered with controlled cord traction 4. Normal uterus, bilateral fallopian tubes and ovaries. 5. Cord gas showed arterial pH 7.17, base deficit 0.9. Estimated blood loss: 1100 cc IV fluids: 2500 cc Urine Output: 150 cc Specimens Sent: none Retained Materials: Ruano Complications: None Disposition: L&D then B7 Smita Balir MD 10/28/2018 12:38 PGY2, OBGYN Pager #[phone] Attending attestation: I was present during the entire procedure. I saw and examined the patient 10/28/2018. I agree with the findings and plan of care documented in the resident's/fellow's note. Yesenia Lemus MD 10/28/2018 18:05 * Anesthesia Pre-Eval - Elda Mendoza MD - 10/28/2018 0808 EST Obstetric Anesthesia Consult Name: YESENIA FRAGOSO : 1980 Date: 10/28/2018 Age: 38 y.o. GA: 39w0d Manager Hiv: Yesenia Lemus MD Obstetric History: Obstetric History Complications during : Complicated By: Complicated by: prior LTCS, breech presentation, T2DM on metformin, hypothyroidism, Asthma, current smoker (1PPD), obesity Allergies Allergen Reactions ??? Morphine Hives Anesthetic History: Anesthesia History Previous Patient or Family Problems with Anesthesia: None Airway Evaluation: Airway Evaluation Mallampati: 2 Mouth Opening: Normal Jaw Thrust: Normal Thyro-Mental Distance: Small Neck Eval: ROM Normal Teeth: Normal(one chip in lower back left molar ) Review of Systems: Smoker: Yes Smoking Frequency: 1 packs/day Productive Cough: No History of Respiratory Infections: No Asthma: Yes Hospitalized for Asthma: No Asthma Medications: Yes Asthma Triggers: Environmental, Cold Heart Murmur: No High Blood Pressure: No Angina/Palpitations: No Blood Vessel Disease: No Neurological Disease: Yes Type of Neurologic Disease: Headaches Muscular Degeneration: No Backpain/Neckpain: No Reflux/Heartburn/Hiatial Hernia: Yes GI Additional Info: Able to Lie Flat, Controlled Liver Disease: No Thyroid Disease: Yes Type of Thyroid Disease: Hypothyroid Kidney Disease: No Diabetes: Yes Onset of Diabetes: Type II Anemia: No Bleeding Disorders: No Previous Anesthesia for Childbirth: Yes Previous Types of Anesthesia: Spinal, Worked Well Infectious Disease: No Opioid Dependency: No Contact Lenses/Glasses: None No past surgical history on file. Current Facility-Administered Medications: acetaminophen (TYLENOL) tablet 650 mg oral Q4H PRN albuterol inhaler 2 Puff inhalation Q4H ceFAZolin (ANCEF) syringe 2 g intravenous PRE-OP ONCE fluticasone-salmeterol (ADVAIR) 250-50 mcg/dose diskus inhaler 1 Puff inhalation Q12H ibuprofen (MOTRIN) tablet 400 mg oral Q4H PRN lactated ringers (LR) infusion intravenous CONTINUOUS lactated ringers BOLUS 500 mL intravenous Now levothyroxine (SYNTHROID) tablet 224 mcg oral DAILY BEFORE BREAKFAST methylergonovine (METHERGINE) injection 200 mcg intramuscular PRN miSOPROStol (CYTOTEC) tablet 200 mcg buccal PRN miSOPROStol (CYTOTEC) tablet 800 mcg rectal PRN oxytocin in lactated ringers 30 units/500 ml intravenous ONCE And oxytocin in lactated ringers 30 units/500 ml intravenous ONCE sodium citrate-citric acid (BICITRA) 500-334 mg/5 mL solution 30 mL oral Now No outpatient medications have been marked as taking for the 10/28/18 encounter (Hospital Encounter)with Yesenia Lemus MD. Vital Signs: Ht 180.3 cm (71) Wt (!) 141.3 kg (311 lb 6.4 oz) LMP 12/30/2017 BMI 43.43 kg/m?? Labs: Lab Results Component Value Date WBC 14.92 (H) 09/11/2017 HGB 13.3 09/11/2017 HCT 39.1 09/11/2017 MCV 85 09/11/2017 PLT 310 09/11/2017 NA 141 09/11/2017 K 4.1 09/11/2017 CL 107 09/11/2017 CO2 24 09/11/2017 BUN 14 09/11/2017 CREATININE 0.78 09/11/2017 INR 1.1 03/25/2006 PROTIME 14.4 03/25/2006 Blood/Cultures: Recent Results (from the past 1008 hour(s)) GROUP B STREP PCR Collection Time: 10/14/18 13:24 Result Value Ref Range Status GROUP B STREP PCR Negative Final ASA Classification: Grade III Plan: epidural, general, spinal, TAP mode(s) of anesthesia were discussed. Risks discussed included: Bleeding, Infection, Nerve Injury, Spinal headaches, low blood pressures with underperfusion, high spinals, hematomas, failure and replacement. All of Yesenia Fragoso's questions were answered to her satisfaction. Unless otherwise noted, follow standard anesthesia pre-operative protocol. Elda Mendoza MD 10/28/2018 Associated attestation - Kate Parra MD - 10/28/2018 0840 EST Attending attestation: I personally reviewed the study and the resident's/fellow's interpretation and agree with the findings documented. Kate Parra MD 10/28/2018 8:40 documented in this encounter Plan of Treatment Scheduled Referrals Name Type Priority Associated Diagnoses Order Schedule PROVIDER FOLLOW-UP INSTRUCTIONS Outpatient Referral Routine Ordered: 10/30/2018 PROVIDER FOLLOW-UP INSTRUCTIONS Outpatient Referral Routine Ordered: 10/30/2018 AMB CONS/FOLLOW UP MATERNAL MEDICINE Outpatient Referral Routine Supervision of high risk , antepartum Ordered: 10/30/2018 documented as of this encounter Procedures Procedure Name Priority Date/Time Associated Diagnosis Comments ECG REPORT - SCANNED 11/04/2018 12:23 EST GLUCOSE, GLUCOMETER Routine 10/30/2018 1 1:15 EST GLUCOSE, GLUCOMETER Routine 10/30/2018 7 :23 EST GLUCOSE, GLUCOMETER Routine 10/29/2018 1 8:00 EST GLUCOSE, GLUCOMETER Routine 10/29/2018 1 3:24 EST COMPLETE BLOOD COUNT Routine 10/29/2018 6:56 EST GLUCOSE, GLUCOMETER Routine 10/29/2018 0 :59 EST SURGICAL PATHOLOGY Routine 10/28/2018 23 :21 EST GLUCOSE, GLUCOMETER Routine 10/28/2018 1 7:26 EST GLUCOSE, GLUCOMETER Routine 10/28/2018 1 4:27 EST BLOOD GASES, CORD VENOUS STAT 10/28/2018 10:37 EST BLOOD GASES, CORD ARTERIAL STAT 10/28/2018 10:37 EST INPATIENT ADD-ON STAT 10/28/2018 9:20 EST GLUCOSE, GLUCOMETER Routine 10/28/2018 9 :19 EST INPATIENT ADD-ON STAT 10/28/2018 8:55 EST HOLD SST Routine 10/28/2018 7:50 EST HOLD BLUE TOP Routine 10/28/2018 7:50 EST COMPLETE BLOOD COUNT STAT 10/28/2018 7:50 EST TYPE AND SCREEN STAT 10/28/2018 7:50 EST VARICELLA IGG ANTIBODY Routine 10/28/2018 7:50 EST TSH Routine 10/28/2018 7:50 EST T4 FREE Routine 10/28/2018 7:50 EST documented in this encounter Results * ECG REPORT - SCANNED (11/04/2018 12:23 EST) 11/04/2018 12:2 3 EST Scan 2 Framework Developer PROCEDURE/MINOR BOBBI GICAL ORDERABLES * GLUCOSE, GLUCOMETER (10/30/2018 11:15 EST) Glucose, Fingerstick 80 70 - 100 mg/dl 10/30/2018 11:[address] [facility] [employer] [place] [id number] 10/30/2018 11:[address] [facility] Comment:Test Performed by [facility] BLOOD SPECIMEN / Unknown 10/30/2018 11:15 EST 10/30/2018 11:16 EST Yesenia Lemus MD CHEMISTRY & BLOOD GAS ORDERABLES [facility] [address] [place] [address] * GLUCOSE, GLUCOMETER (10/30/2018 7:23 EST) Glucose, Fingerstick 81 70 - 100 mg/dl 10/30/2018 7:[address] [facility] [employer] ID [id number] 10/30/2018 7:[address] [facility] Comment:Test Performed by [facility] BLOOD SPECIMEN / Unknown 10/30/2018 7:23 EST 10/30/2018 7:24 EST Yesenia Lemus MD CHEMISTRY & BLOOD GAS ORDERABLES Performing Organization Address City/[facility]/ZIP Co de Phone Number [facility] [address] [place] [address] * (ABNORMAL) GLUCOSE, GLUCOMETER (10/29/2018 18:00 EST) Glucose, Fingerstick 106(H) 70 - 100 mg/dl 10/29/2018 18:[address] [facility] [employer] ID [id number] 10/29/2018 18:[address] [facility] Comment:Test Performed by [facility] BLOOD SPECIMEN / Unknown 10/29/2018 18:00 EST 10/29/2018 18:05 EST Yesenia Lemus MD CHEMISTRY & BLOOD GAS ORDERABLES Performing Organization Address City/[facility]/ZIP Co de Phone Number [facility] [address] [place] [address] * GLUCOSE, GLUCOMETER (10/29/2018 13:24 EST) Glucose, Fingerstick 77 70 - 100 mg/dl 10/29/2018 13:[address] [facility] [employer] [place] ID [id number] 10/29/2018 13:[address] [facility] Comment:Test Performed by [facility] BLOOD SPECIMEN / Unknown 10/29/2018 13:24 EST 10/29/2018 13:26 EST Yesenia Lemus MD CHEMISTRY & BLOOD GAS ORDERABLES [facility] [address] [place] [address] * (ABNORMAL) COMPLETE BLOOD COUNT (10/29/2018 6:56 EST) WBC 16.60(H) 4.0 - 12.4 K/cmm 10/29/2018 7:36 [facility] RBC 3.30(L) 3.86 - 5.04 M/cmm 10/29/2018 7:36 [facility] Hemoglobin 10.1(L) 11.6 - 15.2 gm/dl 10/29/2018 7:36 [facility] HCT 28.8(L) 34.9 - 44.4 % 10/29/2018 7:36 [facility] MCV 87 81 - 98 fl 10/29/2018 7:36 [facility] MCH 30.6 26.7 - 33.3 pg 10/29/2018 7:36 [facility] MCHC 35.1 32.1 - 35.9 gm/dl 10/29/2018 7:36 [facility] RDW-CV 13.7 <14.7 % 10/29/2018 7:36 [facility] RDW-SD 43.2 <50.4 fl 10/29/2018 7:36 [facility] PLT 285 141 - 377 K/cmm 10/29/2018 7:36 [facility] MPV 9.5 9.5 - 12.7 fl 10/29/2018 7:36 [facility] Blood specimen (specimen) BLOOD SPECIMEN / Unknown 10/29/2018 6:56 EST 10/29/2018 7:22 EST Smita Blair MD HEMATOLOGY & PF4 ORD ERABLES [facility] [address] [place] [address] * (ABNORMAL) GLUCOSE, GLUCOMETER (10/29/2018 0:59 EST) Glucose, Fingerstick 160(H) 70 - 100 mg/dl 10/29/2018 1:[address] [facility] [employer] ID [id number] 10/29/2018 1:[address] [facility] Comment:Test Performed by [facility] BLOOD SPECIMEN / Unknown 10/29/2018 0:59 EST 10/29/2018 1:01 EST Yesenia Lemus MD CHEMISTRY & BLOOD GAS ORDERABLES [facility] [address] [place] [address] * SURGICAL PATHOLOGY (10/28/2018 23:21 EST) Pathology Report: SURGICAL PATHOLOGY REPORT Reports generated via electronic interface contain original data; however they are lacking the format of the original report. Caution should be taken when reading/interpret ing unformatted reports. Name: ? YESENIA FRAGOSO ? Accession #: ? [id number] ? : ? 1980 (Age: 38) ??F ? Collect Date: ? 10/28/2018 ? Location: ? B07M ? Receive Date: ? 10/28/2018 ? Provider: YESENIA ZHAO MD Copy to: YESENIA BEJARANO APRN ? Final Pathologic Diagnosis: A. FALLOPIAN TUBE, RIGHT, LIGATION: - ??Segment of fallopian tube with complete cross sections identified. B. FALLOPIAN TUBE, LEFT, LIGATION: - ??Segment of fallopian tube with complete cross sections identified. Document reviewed and electronically signed by: JESSE HERNANDEZ MD Report ??Date: 10/31/2018 09:50 By the signature above, the attending physician certifies that he/she has personally conducted a gross and/or microscopic examination of the described specimens and rendered or confirmed the above diagnosis. Specimen(s) Received: A. ??Right fallopian tube segment B. ??Left fallopian tube segment Clinical History: Bilateral tubal ligation Gross Description: A. ?Received in normal saline labelled with proper patient identification (initials P, E) and right fallopian tube segment is a 1.0 cm in length portion of fallopian tube averaging 0.9 cm in diameter. The serosa is glistening purple- brown. Sections show an intact wall and pinpoint lumen. A distribution sales representative section is submitted in A1. B. ?Received in normal saline labelled with proper patient identification (initials P, E) and left fallopian tube segment is a 1.5 cm in length portion of fallopian tube up to 1.0 cm in diameter. The serosa is glistening purple- brown. Sections show an intact wall and pinpoint lumen. A distribution sales representative central section is submitted in B1. HERO Fonseca ([facility]) 10/29/2018 12:11 PM End of Report [facility] 10/28/2018 23:2 1 EST 10/28/2018 23:21 EST Yesenia Zhao MD PATHOLOGY ORDERABLES Performing Organization Address [facility] Co de Phone Number [facility] [address] [place] [address] * GLUCOSE, GLUCOMETER (10/28/2018 17:26 EST) Glucose, Fingerstick 85 70 - 100 mg/dl 10/28/2018 17:[address] [facility] [employer] ID [id number] 10/28/2018 17:[address] [facility] Comment:Test Performed by [facility] BLOOD SPECIMEN / Unknown 10/28/2018 17:26 EST 10/28/2018 17:31 EST Yesenia Lemus MD CHEMISTRY & BLOOD GAS ORDERABLES Performing Organization Address City/[facility]/ZIP Co de Phone Number [facility] [address] [place] [address] * GLUCOSE, GLUCOMETER (10/28/2018 14:27 EST) Glucose, Fingerstick 82 70 - 100 mg/dl 10/28/2018 14:31 [facility] [employer] ID [id number] 10/28/2018 14:31 [facility] Comment[facility] BLOOD SPECIMEN / Unknown 10/28/2018 14:27 EST 10/28/2018 14:31 EST Yesenia Lemus MD CHEMISTRY & BLOOD GAS ORDERABLES [facility] [address] [place] [address] * (ABNORMAL) BLOOD GASES, CORD VENOUS (10/28/2018 10:37 EST) pH, Cord blood magnolia 7.17(L) 7.25 - 7.45 10/28/2018 11:21 [facility] PCO2, Cord blood 84 mmHg 10/28/2018 11:21 [facility] PO2, Cord bld magnolia <10(L) 17 - 41 mmHg 10/28/2018 11:21 [facility] tCO2, Cord blood 33(H) 14 - 22 mEq/L 10/28/2018 11:21 [facility] Base Deficit 0.9 10/28/2018 11:21 [facility] BLOOD SPECIMEN / Unknown 10/28/2018 10:37 EST 10/28/2018 10:44 EST Yesenia Lemus MD GEN LAB UNIT YOVANI ECT ORDERABLES [facility] [address] [place] [address] * (ABNORMAL) BLOOD GASES, CORD ARTERIAL (10/28/2018 10:37 EST) pH, Cord blood art 7.26 7.18 - 7.38 10/28/2018 11:21 [facility] PCO2, Cord blood 68 mmHg 10/28/2018 11:21 [facility] PO2, Cord bld art 10 6 - 30 mmHg 10/28/2018 11:21 [facility] tCO2, Cord blood 32(H) 14 - 22 mEq/L 10/28/2018 11:21 [facility] Base Level 0.9 10/28/2018 11:21 [facility] Blood specimen (specimen) BLOOD SPECIMEN / Unknown 10/28/2018 10:37 EST 10/28/2018 10:44 EST Yesenia Lemus MD GEN LAB UNIT YOVANI ECT ORDERABLES Performing Organization Address City/[facility]/ZIP Co de Phone Number [facility] [address] [place] [address] * INPATIENT ADD-ON (10/28/2018 9:20 EST) Tests to be added TSH,FREE T4 10/28/2018 9:16 [facility] Number for problems M7 10/28/2018 9:29 [facility] Accession number [id number] 10/28/2018 9:29 [facility] TOPOGRAPHY UNKNOWN / Unknown 10/28/2018 9:20 EST 10/28/2018 9:28 EST Smita Blair MD HEMATOLOGY & PF4 ORD ERABLES Performing Organization Address City/[facility]/ZIP Co de Phone Number [facility] [address] [place] [address] * (ABNORMAL) GLUCOSE, GLUCOMETER (10/28/2018 9:19 EST) Glucose, Fingerstick 64(L) 70 - 100 mg/dl 10/28/2018 9:24 [facility] [employer] [place] ID [id number] 10/28/2018 9:24 [facility] Comment:[facility] BLOOD SPECIMEN / Unknown 10/28/2018 9:19 EST 10/28/2018 9:24 EST Yesenia Lemus MD CHEMISTRY & BLOOD GAS ORDERABLES [facility] [address] [place] [address] * INPATIENT ADD-ON (10/28/2018 8:55 EST) Tests to be added VARICELLA IGG 10/28/2018 8:[address] [facility] Number for problems M7 10/28/2018 9:[address] [facility] Accession number [id number], CANNOT BE STAT SPOKE TO ARVIND MUÑOZ 10/28/2018 9:[address] [facility] TOPOGRAPHY UNKNOWN / Unknown 10/28/2018 8:55 EST 10/28/2018 9:02 EST Smita Blair MD HEMATOLOGY & PF4 ORD ERABLES Performing Organization Address [facility] Co de Phone Number [facility] [address] [place] [address] * (ABNORMAL) TSH (10/28/2018 7:50 EST) TSH 22.40(H) 0.47 - 4.68 uIU/ml 10/28/2018 10:[address] [facility] Comment: The results of this assay can be falsely lowered due to the consumption of Biotin. BLOOD SPECIMEN / Unknown 10/28/2018 7:50 EST 10/28/2018 8:10 EST Willy Steve MD CHEMISTRY & BLOOD GAS ORDERABLES Performing Organization Address City/[facility] Co de Phone Number [facility] [address] [place] [address] * T4 FREE (10/28/2018 7:50 EST) T4, Free 0.8 0.8 - 2.2 ng/dl 10/28/2018 10:[address] [facility] BLOOD SPECIMEN / Unknown 10/28/2018 7:50 EST 10/28/2018 8:10 EST Willy Steve MD CHEMISTRY & BLOOD GAS ORDERABLES Performing Organization Address [facility]/ZIP Co de Phone Number [facility] [address] [place] [address] * VARICELLA IGG ANTIBODY (10/28/2018 7:50 EST) Varicella IgG Ab Positive 10/28/2018 11:[address] [facility] Comment: Presence of detectable Varicella Zoster virus IgG antibodies. BLOOD SPECIMEN / Unknown 10/28/2018 7:50 EST 10/28/2018 8:10 EST Willy Steve MD IMMUNOLOGY AND SE ROLOGY ORDERABLES [facility] [address] [place] [address] * HOLD SST (10/28/2018 7:50 EST) Hold SST Hold for further testing. Specimen will be held for 5 days. 10/28/2018 8:[address] [facility] BLOOD SPECIMEN / Unknown 10/28/2018 7:50 EST 10/28/2018 8:10 EST Willy Steve MD LAB INFO SERVICE AND SUPPORT & PHONE RESULT Performing Organization Address City/[facility]/ZIP Co de Phone Number [facility] [address] [place] [address] * HOLD BLUE TOP (10/28/2018 7:50 EST) [facility] Hold Blue Top Tube overfilled, sample unsuitable for testing 10/28/2018 8:[address] [facility] BLOOD SPECIMEN / Unknown 10/28/2018 7:50 EST 10/28/2018 8:10 EST Willy Steve MD LAB INFO SERVICE AND SUPPORT & PHONE RESULT Performing Organization Address [facility]/ZIP Co de Phone Number [facility] [address] [place] [address] * TYPE AND SCREEN (10/28/2018 7:50 EST) Antibody Screen Negative [facility] Comment: Patient is electronic crossmatch eligible. Units available upon request for transfusion. Specimen Expires: 10/31/2018 @ 23:[address] [facility] ABO A [facility] Rh Factor Positive [facility] Blood specimen (specimen) 10/28/2018 7:50 EST Willy Steve MD BLOOD BANK TESTS Performing Organization Address City/[facility]/ZIP Co de Phone Number [facility] * (ABNORMAL) COMPLETE BLOOD COUNT (10/28/2018 7:50 EST) WBC 13.66(H) 4.0 - 12.4 K/cmm 10/28/2018 8:19 [facility] RBC 4.02 3.86 - 5.04 M/cmm 10/28/2018 8:19 [facility] Hemoglobin 12.2 11.6 - 15.2 gm/dl 10/28/2018 8:19 [facility] HCT 34.9 34.9 - 44.4 % 10/28/2018 8:19 [facility] MCV 87 81 - 98 fl 10/28/2018 8:19 [facility] MCH 30.3 26.7 - 33.3 pg 10/28/2018 8:19 [facility] MCHC 35.0 32.1 - 35.9 gm/dl 10/28/2018 8:19 [facility] RDW-CV 13.8 <14.7 % 10/28/2018 8:19 [facility] RDW-SD 43.0 <50.4 fl 10/28/2018 8:19 [facility] PLT 312 141 - 377 K/cmm 10/28/2018 8:19 [facility] MPV 9.4(L) 9.5 - 12.7 fl 10/28/2018 8:19 [facility] Blood specimen (specimen) BLOOD SPECIMEN / Unknown 10/28/2018 7:50 EST 10/28/2018 8:10 EST Willy Steve MD HEMATOLOGY & PF4 ORDERABLES [facility] [address] [place] [address] documented in this encounter Visit Diagnoses Diagnosis Supervision of high risk , antepartum- Primary Supervision of high risk , antepartum Maternal pregestational diabetes classes B through R, antepartum Hypothyroidism affecting in third trimester Obesity affecting in third trimester documented in this encounter Administered Medications Inactive Administered Medications - up to 3 most recent administrations Medication Order MAR Action Action Date Dose Rate Site acetaminophen (TYLENOL) tablet 650 mg 650 mg, oral, EVERY 4 HOURS PRN, Starting on Sat10/28/18 at 0138, Until Sat10/28/18 at 1456, Pain, Post-, Routine Given 10/28/2018 12:47 EST 650 mg acetaminophen (TYLENOL) tablet 650 mg 650 mg, oral, EVERY 4 HOURS, 12 doses, First dose on Sat10/28/18 at 1615, Last dose on Sat10/30/18 at 1200, Routine, On Unit Given 10/30/2018 13:32 EST 650 mg Given 10/30/2018 9:52 EST 650 mg Given 10/30/2018 6:07 EST 650 mg albuterol inhaler 2 Puff 2 Puff, inhalation, EVERY 4 HOURS, First dose on Sat10/28/18 at 0215, Until Discontinued, Routine Given 10/30/2018 9:51 EST 2 Puffs Given 10/30/2018 0:14 EST 2 Puffs Given 10/29/2018 9:01 EST 2 Puffs ceFAZolin (ANCEF) syringe 2 g 2 g, intravenous, Administer over 10 Minutes, PRE-OP ONCE, 1 dose, On Sat10/28/18 at 0215, STAT Given 10/28/2018 9:52 EST 2 g diphenhydrAMINE (BENADRYL) capsule 25 mg 25 mg, oral, EVERY 6 HOURS PRN, Starting on Sat10/29/18 at 0030, Until Sat10/30/18 at 1609, Itching, Routine Given 10/29/2018 0:55 EST 25 mg docusate sodium (COLACE) capsule 100 mg 100 mg, oral, 2 TIMES DAILY, First dose on Sat10/28/18 at 2100, Until Discontinued, Routine, On Unit Given 10/30/2018 8:42 EST 100 mg Given 10/29/2018 21:00 EST 100 mg Given 10/29/2018 8:59 EST 100 mg fluticasone-salmeterol (ADVAIR) 250-50 mcg/dose diskus inhaler 1 Puff 1 Puff, inhalation, EVERY 12 HOURS, First dose on Sat10/28/18 at 0215, Until Discontinued, Routine Given 10/30/2018 1:00 EST 1 Puff Given 10/29/2018 13:31 EST 1 Puff heparin injection 5,000 Units 5,000 Units, subcutaneous, EVERY 12 HOURS, First dose on Sat10/29/18 at 2100, Until Discontinued, Routine Given 10/30/2018 8:41 EST 5,000 Units Abdominal Tissue Given 10/29/2018 21:02 EST 5,000 Units Abd ominal Tissue HYDROmorphone (DILAUDID) tablet 2-4 mg 2-4 mg, oral, EVERY 4 HOURS PRN, 2 doses, Starting on Sat10/28/18 at 1212, Until Sat10/28/18 at 1456, Pain, Routine, Recovery (only) Given 10/28/2018 12:57 EST 4 mg HYDROmorphone (DILAUDID) tablet 2-4 mg 2-4 mg, oral, EVERY 4 HOURS PRN, Starting on Sat10/28/18 at 1235, Until Deysi 10/30/18 at 1609, Pain, Routine, On Unit Given 10/30/2018 13:32 EST 2 mg Given 10/30/2018 9:52 EST 2 mg Given 10/30/2018 6:06 EST 2 mg HYDROmorphone injection (DILAUDID) 0.5 mg/1 mL syringe 0.5 mg 0.5 mg, intravenous, EVERY 4 HOURS PRN, Starting on Sat10/28/18 at 1235, Until Deysi 10/30/18 at 1609, Pain, Routine, On Unit Given 10/28/2018 14:05 EST 0.5 mg ibuprofen (MOTRIN) tablet 600 mg 600 mg, oral, EVERY 6 HOURS PRN, Starting on Sat10/29/18 at 1230, Until Deysi 10/30/18 at 1609, Pain, Routine, On Unit Given 10/30/2018 13:32 EST 600 mg Given 10/30/2018 6:06 EST 600 mg Given 10/30/2018 0:12 EST 600 mg ketOROLAC (TORADOL) injection 30 mg 30 mg, intravenous, EVERY 6 HOURS, 3 doses, First dose on Sat10/28/18 at 1800, Last dose on Sat10/29/18 at 0600, Routine, On Unit Given 10/29/2018 5:19 EST 30 mg Given 10/28/2018 23:39 EST 30 mg Given 10/28/2018 17:49 EST 30 mg lactated ringers (LR) infusion 75 mL/hr, intravenous, CONTINUOUS, Starting on Sat10/28/18 at 1430, Until Sat10/30/18 at 1609, Routine, On Unit New Bag 10/28/2018 15:21 EST 75 mL/hr 75 mL/hr Rate Change-ICU/L&D Only 10/28/2018 12:30 EST 75 mL/hr 7 5 mL/hr lactated ringers BOLUS 500 mL 500 mL, intravenous, NOW X1, 1 dose, On Sat10/28/18 at 0215, STAT Given 10/28/2018 7:30 EST 1,000 mL levothyroxine (SYNTHROID) tablet 224 mcg 224 mcg, oral, DAILY BEFORE BREAKFAST, First dose on Sat10/28/18 at 0730, Until Discontinued, Routine Given 10/30/2018 6:06 EST 224 mcg Given 10/29/2018 6:18 EST 224 mcg nicotine (NICODERM CQ) 14 mg/24 hr patch 1 Patch 1 Patch, transdermal, DAILY, First dose on Sat10/28/18 at 1230, Until Discontinued, Routine Patch Applied 10/30/2018 8:42 EST 1 Patch Left Ar m Patch Applied 10/29/2018 9:00 EST 1 Patch Le ft Shoulder Patch Applied 10/28/2018 13:15 EST 1 Patch L eft Arm ondansetron (PF) (ZOFRAN) injection 4 mg 4 mg, intravenous, EVERY 6 HOURS PRN, Starting on Sat10/28/18 at 1557, Until Deysi 10/30/18 at 1609, Nausea, Routine, On Unit ondansetron (ZOFRAN-ODT) disintegrating tablet 4 mg 4 mg, oral, EVERY 6 HOURS PRN, Starting on Sat10/28/18 at 1557, Until Deysi 10/30/18 at 1609, Nausea, Routine, On Unit oxytocin in lactated ringers 30 units/500 ml 50 mL/hr, intravenous, CONTINUOUS, Starting on 10/28/18 at 1430, Until Deysi 10/30/18 at 1609, Routine, On Unit New Bag 10/28/2018 15:20 EST 50 mL/hr 50 mL/hr Rate Change-ICU/L&D Only 10/28/2018 12:30 EST 50 mL/hr 5 0 mL/hr sodium citrate-citric acid (BICITRA) 500-334 mg/5 mL solution 30 mL 30 mL, oral, NOW X1, 1 dose, On e 10/28/18 at 0215, STAT Given 10/28/2018 9:25 EST 30 mL documented in this encounter Active and Recently Administered Medications Times are shown in EST. Scheduled Medication Order 10/28/2018 10/29/2018 10/30/2018 acetaminophen (TYLENOL) tablet 650 mg (COMPLETED)(Linked Group 1) 650 mg, oral, EVERY 4 HOURS, 12 doses, First dose on e 10/28/18 at 1615, Last dose on Deysi 10/30/18 at 1200, Routine, On Unit 1602 (Hold - Provider: Elda Almazan RN - Reason: Other)1643 (Given - Provider: Elda Almazan RN)2106 (Given - Provider: Stephanie Astudillo RN) 0055 (Given - Provider: Stephanie Astudillo RN)0519 (Given - Provider: Stephanie Astudillo RN)0900 (Given - Provider: Alexander Garcia RN)1327 (Given - Provider: Alexander Garcia RN)1735 (Given - Provider: Alexander Garcia RN)2101 (Given - Provider: Divine Hernandez RN) 0132 (Given - Provider: Veronica Ramsay, ARVIND)0607 (Given - Provider: Veronica Ramsay, RN)0800 (Not Given - Provider: Janene Lui RN - Reason: Other - Comment: had at 0607)0952 (Given - Provider: Emily Vazquez)1103 (Not Given - Provider: Janene Lui RN - Reason: Other - Comment: had at 0952)1332 (Given - Provider: Janene Lui RN) albuterol inhaler 2 Puff 2 Puff, inhalation, EVERY 4 HOURS, First dose on Sat10/28/18 at 0215, Until Discontinued, Routine 1008 (Not Given - Provider: Anabel Tai RN - Reason: Order parameters not met)1009 (Not Given - Provider: Anabel Tai RN - Reason: Order parameters not met)1249 (Not Given - Provider: Anabel Tai RN - Reason: Order parameters not met)1415 (Canceled Entry - Provider: Batch Job User Admin - Comment: Automatically canceled at discontinue of medication order)1720 (Not Given - Provider: Elda Almazan RN - Reason: Patient/family refused)2339 (Given - Provider: Stephanie Astudillo RN) 0215 (Canceled Entry - Provider: Stephanie Astudillo RN)0618 (Not Given - Provider: Stephanie Astudillo RN - Reason: Patient/family refused)0901 (Given - Provider: Alexander Garcia RN)1415 (Not Given - Provider: Alexander Garcia RN - Reason: Patient/family refused)1815 (Not Given - Provider: Divine Hernandez RN - Reason: Patient/family refused) 0014 (Given - Provider: Veronica Ramsay RN - Comment: previously off unit)0215 (Canceled Entry - Provider: Batch Job User Admin - Comment: Automatically canceled at discontinue of medication order)0614 (Not Given - Provider: Veronica Ramsay RN - Reason: Patient/family refused)0951 (Given - Provider: Emily Vazquez)1415 (Canceled Entry - Provider: Batch Job User Admin - Comment: Automatically canceled at discontinue of medication order) ceFAZolin (ANCEF) syringe 2 g (COMPLETED) 2 g, intravenous, Administer over 10 Minutes, PRE-OP ONCE, 1 dose, On Sat10/28/18 at 0215, STAT 0952 (Given - Provider: Anabel Tai RN) docusate sodium (COLACE) capsule 100 mg 100 mg, oral, 2 TIMES DAILY, First dose on Sat10/28/18 at 2100, Until Discontinued, Routine, On Unit 2105 (Given - Provider: Stephanie Astudillo RN) 0859 (Given - Provider: Alexander Garcia RN)2100 (Given - Provider: Divine Hernandez, ARVIND) 0842 (Given - Provider: Janene Lui, ARVIND) fluticasone-salmeter ol (ADVAIR) 250-50 mcg/dose diskus inhaler 1 Puff 1 Puff, inhalation, EVERY 12 HOURS, First dose on Sat10/28/18 at 0215, Until Discontinued, Routine 1010 (Not Given - Provider: Anabel Tai, ARVIND - Reason: Order parameters not met)1415 (Canceled Entry - Provider: Batch Job User Admin - Comment: Automatically canceled at discontinue of medication order) 0215 (Canceled Entry - Provider: Stephanie Astudillo RN)1331 (Given - Provider: Alexander Garcia RN) 0100 (Given - Provider: Veronica Ramsya RN)1415 (Canceled Entry - Provider: Batch Job User Admin - Comment: Automatically canceled at discontinue of medication order) heparin injection 5,000 Units 5,000 Units, subcutaneous, EVERY 12 HOURS, First dose on Sat10/29/18 at 2100, Until Discontinued, Routine 2102 (Given - Provider: Divine Hernandez, ARVIND) 0841 (Given - Provider: Janene Lui, ARVIND) ketOROLAC (TORADOL) injection 30 mg (COMPLETED) 30 mg, intravenous, EVERY 6 HOURS, 3 doses, First dose on Sat10/28/18 at 1800, Last dose on Sat10/29/18 at 0600, Routine, On Unit 1749 (Given - Provider: Elda Almazan, RN)2339 (Given - Provider: Stephanie Astudillo RN) 0519 (Given - Provider: Stephanie Astudillo RN) lactated ringers BOLUS 500 mL (COMPLETED) 500 mL, intravenous, NOW X1, 1 dose, On Sat10/28/18 at 0215, STAT 0730 (Given - Provider: Anabel Tai RN - Comment: 1000cc bolus per anesthesia) levothyroxine (SYNTHROID) tablet 224 mcg 224 mcg, oral, DAILY BEFORE BREAKFAST, First dose on Sat10/28/18 at 0730, Until Discontinued, Routine 1009 (Not Given - Provider: Anabel Tai RN - Reason: Order parameters not met - Comment: pt took own meds at home) 0618 (Given - Provider: Stephanie Astudillo ARVIND) 0606 (Given - Provider: Veronica Ramsay, ARVIND) multivitamin vit-iron fumarate-FA (STUARTNATAL) 27 mg iron- 1 mg tablet 1 Tab 1 Tablet, oral, DAILY, First dose on Sat10/28/18 at 1615, Until Discontinued, Routine, On Unit 1602 (Not Given - Provider: Elda Almazan, RN - Reason: Patient/family refused) 0904 (Not Given - Provider: Alexander Garcia RN - Reason: Patient/family refused) 0930 (Not Given - Provider: Janene Lui RN - Reason: Patient/family refused) nicotine (NICODERM CQ) 14 mg/24 hr patch 1 Patch 1 Patch, transdermal, DAILY, First dose on Sat10/28/18 at 1230, Until Discontinued, Routine 1315 (Patch Applied - Provider: Anabel Tai RN)2300 (Patch Removed - Provider: Stephanie Astudillo RN) 0900 (Patch Applied - Provider: Alexander Garcia RN)2226 (Patch Removed - Provider: Divine Hernandez, ARVIND) 0842 (Patch Applied - Provider: Janene Lui, ARVIND)2100 (Due: Patch Removed - Provider: Janene Lui RN) sodium citrate-citric acid (BICITRA) 500-334 mg/5 mL solution 30 mL (COMPLETED) 30 mL, oral, NOW X1, 1 dose, On Sat10/28/18 at 0215, STAT 0925 (Given - Provider: Anabel Tai RN) Continuous Medication Order 10/28/2018 10/29/2018 10/30/2018 lactated ringers (LR) infusion(Linked Group 2) 75 mL/hr, intravenous, CONTINUOUS, Starting on e 10/28/18 at 1430, Until Deysi 10/30/18 at 1609, Routine, On Unit 1230 (Rate Change-ICU/L&D Only - Provider: Anabel Tai RN)1521 (New Bag - Provider: Beth Irwin, ARVIND)1645 (Completed - Provider: Elda Almazan, RN) oxytocin in lactated ringers 30 units/500 ml(Linked Group 2) 50 mL/hr, intravenous, CONTINUOUS, Starting on Sat10/28/18 at 1430, Until Sat10/30/18 at 1609, Routine, On Unit 1230 (Rate Change-ICU/L&D Only - Provider: Anabel Tai, ARVIND)1520 (New Bag - Provider: Beth Irwin RN)1645 (Completed - Provider: Elda Almazan RN) PRN Medication Order 10/28/2018 10/29/2018 10/30/2018 acetaminophen (TYLENOL) tablet 650 mg (CANCELED) 650 mg, oral, EVERY 4 HOURS PRN, Starting on Sat10/28/18 at 0138, Until Sat10/28/18 at 1456, Pain, Post-, Routine 1247 (Given - Provider: Anabel Tai RN) acetaminophen (TYLENOL) tablet 650 mg(Linked Group 1) 650 mg, oral, EVERY 4 HOURS PRN, Starting on Sat10/30/18 at 1600, Until Sat10/30/18 at 1609, Pain, Routine, On Unit bisacodyl (DULCOLAX) suppository 10 mg 10 mg, rectal, DAILY PRN, Starting on Sat10/28/18 at 1557, Until Sat10/30/18 at 1609, Constipation, Routine, On Unit calcium carbonate (TUMS) 200 mg calcium (500 mg) per chewable tablet tablet,chewable 2 Tab 2 Tablet, oral, EVERY 2 HOURS PRN, Starting on Sat10/28/18 at 1557, Until Sat10/30/18 at 1609, Heartburn, Indigestion, Routine, On Unit diphenhydrAMINE (BENADRYL) capsule 25 mg 25 mg, oral, EVERY 6 HOURS PRN, Starting on Sat10/29/18 at 0030, Until Sat10/30/18 at 1609, Itching, Routine 0055 (Given - Provider: Stephanie Astudillo RN) HYDROmorphone (DILAUDID) tablet 2-4 mg (CANCELED) 2-4 mg, oral, EVERY 4 HOURS PRN, 2 doses, Starting on Sat10/28/18 at 1212, Until Sat10/28/18 at 1456, Pain, Routine, Recovery (only) 1257 (Given - Provider: Anabel Tai RN) HYDROmorphone (DILAUDID) tablet 2-4 mg 2-4 mg, oral, EVERY 4 HOURS PRN, Starting on Sat10/28/18 at 1235, Until Deysi 10/30/18 at 1609, Pain, Routine, On Unit 1644 (Given - Provider: Elda Almazan, ARVIND)2106 (Given - Provider: Stephanie Astudillo, RN) 0055 (Given - Provider: Stephanie Astudillo, RN)0519 (Given - Provider: Stephanie Astudillo RN)0900 (Given - Provider: Alexander Garcia RN)1326 (Given - Provider: Alexander Garcia RN)1735 (Given - Provider: Alexander Garcia, ARVIND)2101 (Given - Provider: Divine Hernandez RN) 0132 (Given - Provider: Veronica Ramsay, ARVIND)0606 (Given - Provider: Veronica Ramsay RN)0952 (Given - Provider: Emily Vazquez)1332 (Given - Provider: Janene Lui RN) HYDROmorphone injection (DILAUDID) 0.5 mg/1 mL syringe 0.5 mg 0.5 mg, intravenous, EVERY 4 HOURS PRN, Starting on Sat10/28/18 at 1235, Until Deysi 10/30/18 at 1609, Pain, Routine, On Unit 1405 (Given - Provider: Anabel Tai, ARVIND) ibuprofen (MOTRIN) tablet 600 mg 600 mg, oral, EVERY 6 HOURS PRN, Starting on Sat10/29/18 at 1230, Until Deysi 10/30/18 at 1609, Pain, Routine, On Unit 1107 (Given - Provider: Alexander Garcia RN)1735 (Given - Provider: Alexander Garcia RN) 0012 (Given - Provider: Veronica Ramsay, ARVIND)0606 (Given - Provider: Veronica Ramsay RN)1332 (Given - Provider: Janene Lui RN) lansinoh HPA lanolin topical, PRN, Starting on Sat10/28/18 at 1557, Until Deysi 10/30/18 at 1609, Other, On Unit magnesium hydroxide (MILK OF MAGNESIA) 400 mg/5 mL suspension 30 mL 30 mL, oral, DAILY PRN, Starting on Sat10/28/18 at 1557, Until Deysi 10/30/18 at 1609, Constipation, Routine, On Unit ondansetron (PF) (ZOFRAN) injection 4 mg(Linked Group 3) 4 mg, intravenous, EVERY 6 HOURS PRN, Starting on Sat10/28/18 at 1557, Until Deysi 10/30/18 at 1609, Nausea, Routine, On Unit ondansetron (ZOFRAN-ODT) disintegrating tablet 4 mg(Linked Group 3) 4 mg, oral, EVERY 6 HOURS PRN, Starting on Sat10/28/18 at 1557, Until Deysi 10/30/18 at 1609, Nausea, Routine, On Unit Linked Groups Order Group 1: acetaminophen (TYLENOL) tablet 650 mg (COMPLETED)Jump to med 650 mg, oral, EVERY 4 HOURS, 12 doses, First dose on Sat10/28/18 at 1615, Last dose on Sat10/30/18 at 1200, Routine, On Unit Followed by acetaminophen (TYLENOL) tablet 650 mgJump to med 650 mg, oral, EVERY 4 HOURS PRN, Starting on Sat10/30/18 at 1600, Until Deysi 10/30/18 at 1609, Pain, Routine, On Unit Group 2: oxytocin in lactated ringers 30 units/500 mlJump to med 50 mL/hr, intravenous, CONTINUOUS, Starting on Sat10/28/18 at 1430, Until Deysi 10/30/18 at 1609, Routine, On Unit And lactated ringers (LR) infusionJump to med 75 mL/hr, intravenous, CONTINUOUS, Starting on Sat10/28/18 at 1430, Until Deysi 10/30/18 at 1609, Routine, On Unit Group 3: ondansetron (PF) (ZOFRAN) injection 4 mgJump to med 4 mg, intravenous, EVERY 6 HOURS PRN, Starting on Sat10/28/18 at 1557, Until Deysi 10/30/18 at 1609, Nausea, Routine, On Unit Or ondansetron (ZOFRAN-ODT) disintegrating tablet 4 mgJump to med 4 mg, oral, EVERY 6 HOURS PRN, Starting on Sat10/28/18 at 1557, Until Deysi 10/30/18 at 1609, Nausea, Routine, On Unit documented in this encounter Orders Medications Ordered That Sheng ht Not Have Been Administered Count Last Ordered Date First Ordered Date acetaminophen (TYLENOL) tablet 1,000 mg 1 1 12/29/2017 acetaminophen (TYLENOL) tablet 650 mg 1 02/2018 bisacodyl (DULCOLAX) suppository 10 mg 1 bupivacaine 0.75% in dextros e 8.25% (intrathecal) PF (SENSORCAINE) 0.75 % (7.5 mg/mL) injection 1 10/28/2018 calcium carbonate (TUMS) 200 mg calcium (500 mg) per chewable tablet tablet,chewable 2 Tab 1 10/28/2018 carboprost (HEMABATE) intram uscular injection 250 mcg 1 10/28/2018 dextrose 5 % and 0.45 % NaCl with KCl 20 mEq/L infusion 1 10/28/2018 dextrose 50 % solution 12.5 g 1 10/28/2018 glucagon injection 1 mg 1 10/28/2018 HYDROmorphone injection (DIL AUDID) 0.5 mg/1 mL syringe 0.2-0.6 mg 1 10/28/2018 ibuprofen (MOTRIN) tablet 400 mg 2 10/28/20 18 insulin aspart U-100 (NOVOLO G FLEXPEN) injection 1 10/28/2018 lactated ringers (LR) infusion 1 10/28/2018 lansinoh HPA lanolin 1 10/28/2018 magnesium hydroxide (MILK OF MAGNESIA) 400 mg/5 mL suspension 30 mL 1 10/28/2018 methylergonovine (METHERGINE ) injection 200 mcg 1 10/28/2018 miSOPROStol (CYTOTEC) tablet 200 mcg 1 02/2018 miSOPROStol (CYTOTEC) tablet 800 mcg 1 02/2018 multivitamin vit-ir on fumarate-FA (STUARTNATAL) 27 mg iron- 1 mg tablet 1 Tab 1 10/28/2018 ondansetron (PF) (ZOFRAN) injection 4 mg 1 10/28/2018 ondansetron (ZOFRAN-ODT) dis integrating tablet 4 mg 1 10/28/2018 oxyCODONE (ROXICODONE) immed iate release tablet 5-10 mg 1 10/28/2018 oxytocin in lactated ringers 30 units/500 ml 2 10/28/2018 ropivacaine (PF) (NAROPIN) 5 mg/mL (0.5 %) injection 1 10/28/2018 Diet Count Last Ordered Date First Orde red Date DISCHARGE DIET 1 10/30/2018 Nursing Count Last Ordered Date First Orde red Date ACTIVITY INSTRUCTIONS 5 10/30/2018 BATHING INSTRUCTIONS 2 10/30/2018 WOUND CARE INSTRUCTIONS 4 10/30/2018 Admission Count Last Ordered Date First Orde red Date STATUS: NON-MEDICARE OB INPA TIENT ADMISSION 1 10/28/2018 Transfer Count Last Ordered Date First Orde red Date NOTIFY PPS OF DISCHARGE COMPLETE 1 10/30/20 18 PPS NOTIFICATION OF PATIENT ARRIVAL ON UNIT 1 10/28/2018 PPS NOTIFICATION OF SENDING PATIENT OFF THE UNIT 1 10/28/2018 Discharge Count Last Ordered Date First Orde red Date DISCHARGE PATIENT 2 10/30/2018 Legal Count Last Ordered Date First Orde red Date MISCELLANEOUS DISCHARGE INSTRUCTIONS 2 04/2018 documented in this encounter Care Teams Ice Skater Relationship Specialty Start Date End Date Emily Bejarano, DELMI [address] [place] [address] PCP - General 04/30/18 04/25/22 documented as of this encounter
--- OUTSIDE RECORDS SUMMARY | 2024-07-02 18:53 | XMS_ITS | Encounter Summary ---
Author Organization [facility] Address [address] [place] [address] Care Team Providers Care Cryptographic Center Specialist Name Role Phone Emily Bejarano Lena AWAD Primary Care Provider [phone] Encounter Details Date Type Department Care Team (Late st Contact Info) Description 09/15/2019 Phlebotomy Only [address] [address] Machine Loader, Outpatient Missed menses (Primary Dx) Social History Tobacco Use Types [...] Procedure Name Priority Date/Time Associated Diagnosis Comments QUANT BETA HCG, Routine 09/15/2019 14:33 EDT Missed menses documented in this encounter Results * QUANT BETA HCG, (09/15/2019 14:33 EDT) Quant Beta HCG, Preg <5 <5 mIU/ml 09/15/2019 16:41 EDT [facility] Comment: Reference Range: Negative = <5 Indeterminate = 5-25 recommend repeat in 48 hours. Positive = >25 The results of this assay can be falsely lowered due to the consumption of Biotin. Blood specimen (specimen) BLOOD SPECIMEN / Unknown 09/15/2019 14:33 EDT 09/15/2019 15:58 EDT Sonya Roy MD MPH CHEMISTRY & BL OOD GAS ORDERABLES [facility] [address] [place] [address] documented in this encounter Visit Diagnoses Diagnosis Missed menses- Primary Absence of menstruation documented in this encounter Care Teams Cryptographic Center Specialist Relationship Specialty Start Date End Date Emily Bejarano APRN [address] [place] [phone] PCP - General 04/30/18 04/25/22 documented as of this encounter
--- OUTSIDE RECORDS SUMMARY | 2024-07-02 18:53 | XMS_ITS | Encounter Summary ---
Author Organization [facility] Address [address] [place] [address] Care Team Providers Care Calf Skinner Name Role Phone Emily Bejarano DELMI Primary Care Provider [phone] Encounter Details Date Type Department Care Team (Late st Contact Info) Description 06/15/2019 Results Only [facility] [phone] Perla Doherty, KICK BOXER [address] [place] [id number] Social History Tobacco Use Types Packs/Day Years [...] Date/Time Associated Diagnosis Comments SURGICAL PATHOLOGY Routine 06/15/2019 15 :59 EDT PAP TEST- RESULT ONLY Routine 06/15/2019 0:00 EDT documented in this encounter Results * SURGICAL PATHOLOGY (06/15/2019 15:59 EDT) Pathology Report: SURGICAL PATHOLOGY REPORT Reports generated via electronic interface contain original data; however they are lacking the format of the original report. Caution should be taken when reading/interpret ing unformatted reports. Name: ? YESENIA LAGOS ? Accession #: ? [id number] ? : ? 1980 (Age: 38) ??F ? Collect Date: ? 06/15/2019 ? Location: ? [facility] ? Receive Date: ? 06/16/2019 ? Provider: PERLA DOHERTY KICK BOXER Copy to: ? Final Pathologic Diagnosis: A. VULVA, SUPERIOR CLITORIS, BIOPSY: - Condyloma acuminatum (LSIL/VIN1). B. VULVA, RIGHT LABIUM MAJUS, BIOPSY: - Condyloma acuminatum (LSIL/VIN1). Document reviewed and electronically signed by: DORETHA FLYNN MD PHD Report ??Date: 06/17/2019 10:53 By the signature above, the attending physician certifies that he/she has personally conducted a gross and/or microscopic examination of the described specimens and rendered or confirmed the above diagnosis. Specimen(s) Received: A. ??Superior clitoris verruca B. ??R labia majora verruca Clinical History: R/O dysplasia Gross Description: A. ?Received in formalin labelled with proper patient identification (initials P, E) and superior clitoris is a bilobulated verrucous lesion, 1.4 x 0.8 x 0.5 cm. The base margin is inked. Sectioned and entirely submitted in A1-A2. B. ?Received in formalin labelled with proper patient identification (initials P, E) and R labia majora is a multilobulated verrucous lesion, 1.0 x 0.8 x 0.3 cm. The base margin is inked. Trisected and entirely submitted in B1. HERO Fonseca (ASCP) 06/16/2019 4:53 PM End of Report [facility] 06/15/2019 15:5 9 EDT 06/16/2019 15:59 EDT Perla Doherty NP PATHOLOGY ORDERABLES [facility] [address] [place] [address] * PAP TEST- RESULT ONLY (06/15/2019 0:00 EDT) Pathology Report: CYTOPATHOLOGY REPORT Reports generated via electronic interface contain original data; however they are lacking the format of the original report. Caution should be taken when reading/interpreti ng unformatted reports. Name: ? YESENIA LAGOS ? Accession #: ? [id number] ? : ? 1980 (Age: 38) ??F ?Collect Date: ? 06/15/2019 ? Location: ? [facility] ? Receive Date: ? 06/17/2019 ? Provider: PERLA DOHERTY KICK BOXER Copy to: YOUNG ESPINO MD ? Final Report SPECIMEN ADEQUACY ? Satisfactory for Evaluation - transformation zone component present GENERAL CATEGORIZATION ? Epithelial Cell Abnormality INTERPRETATION ? Squamous Cell Abnormality - Low grade squamous intraepithelial lesion (LSIL). EDUCATIONAL NOTES/RECOMMENDATI ONS ? [facility] recommends following ASCCP's 2012 Updated Consensus Guidelines for the Management of Abnormal Cervical Cancer Screening Tests and Cancer Precursors (JLGTD, 2013; 17(5):S1-S27). ??Consensus guidelines are available online at www.asccp.org. Last Menstrual Period: 05/25/19 Hormonal/Contracep tive status: Tubal ligation Infection History: Pos for HPV: Last year Other: Additional clinical information: R87.450 Specimen/Source: ??Pap Test, Cervix, ThinPrep Imaging System with manual evaluation Document reviewed and electronically signed by: ? LYNDON CLINTON MD ? Report ??Date: 06/22/2019 14:13 HPV with Pap Test ? Date Ordered: ? 06/22/2019 ? Status: ?? Signed Out ?Date Complete: ? 06/23/2019 ? By: ??System Interface ? Date Reported: ? 06/23/2019 ? Interpretation RESULT: POSITIVE FOR HIGH OR INTERMEDIATE RISK HPV. E6 OR E7 mRNA from one or more types of HPV types 16,18,31, 33,35,39,45,51,52, 56,58,59,66, and 68 is detected by lead embedded software engineer mediated amplification. High and intermediate risk HPV types are associated with most squamous intraepithelial lesions and cervical cancers. Comments Document reviewed and electronically signed by: ? System Interface ? Report date: 06/23/2019 By the signature above, the attending physician certifies that he/she has personally conducted a gross and/or microscopic examination of the described specimens and rendered or confirmed the above diagnosis. End of Report [facility] 06/15/2019 06/17/2019 Perla Doherty NP PATHOLOGY ORDERABLES [facility] [address] [place] [address] documented in this encounter Visit Diagnoses Not on filedocumented in this encounter Care Teams Calf Skinner Relationship Specialty Start Date End Date Emily Bejarano APRN [address] [place] [phone] PCP - General 04/30/18 04/25/22 documented as of this encounter
--- OUTSIDE RECORDS SUMMARY | 2024-07-02 18:53 | XMS_ITS | Encounter Summary ---
Author Organization [facility] Address [address] [place] [address] Care Team Providers Care Stubber Name Role Phone Emily Bejarano APRN Primary Care Provider Encounter Details Date Type Department Care Team (Late st Contact Info) Description 10/21/2018 Results Only Imaging [facility] Obstetrics & Midwifery - [facility] [address] [place] [address] Willy Mccullough MD [address] [facility] [place] [address] Social History Tobacco Use Types Packs/Day Years Used Date Smoking Tobacco: Every Day Cigarettes Smokeless Tobacco: Never Comments:smoking 5 per day Alcohol Use Standard Drinks/Week Comments No 0 (1 standard drink = 0.6 oz pur e alcohol) Comments Yes Sex and Gender Information Value Date Recorded Sex Assigned at Female 05/03/2022 19:33 EDT Gender Identity Female 05/02/2020 15:51 EDT Sexual Orientation Straight 05/03/2022 19 :33 EDT documented as of this encounter Plan of Treatment Not on file documented as of this encounter Visit Diagnoses Not on filedocumented in this encounter Care Teams Stubber Relationship Specialty Start Date End Date Emily Bejarano APRN [address] [place] [address] PCP - General 6/6/18 6/1/22 documented as of this encounter
--- OUTSIDE RECORDS SUMMARY | 2024-07-02 18:53 | XMS_ITS | Encounter Summary ---
Author Organization [facility] Address [address] [place] [address] Care Team Providers Care Probate Paralegal Name Role Phone Emily Bejarano Lena AWAD Primary Care Provider [phone] Encounter Details Date Type Department Care Team (Latest Contact Info) Description 08/04/2019 Travel Social History Tobacco Use Types Packs/Day [...] on filedocumented in this encounter Care Teams Probate Paralegal Relationship Specialty Start Date End Date Emily Bejarano APRN [address] [address] PCP - General 04/30/18 04/25/22 documented as of this encounter
--- OUTSIDE RECORDS SUMMARY | 2024-07-02 18:53 | XMS_ITS | Encounter Summary ---
Author Organization [facility] Address [address] [place] [address] Care Team Providers Care De Ionizer Operator Name Role Phone Emily Bejarano Lena AWAD Primary Care Provider Encounter Details Date Type Department Care Team (Latest Contact Info) Description 06/15/2019 8:59 EDT - 06/15/2019 23:59 EDT Hospital Encounter [address] [address] Unknown, Provider, Discharge Disposition: Home or Self Care Social [...] No 10/28/2018 documented as of this encounter Medications at [...] for Wheezing. 3 mL 3 10/30/2018 04/25/2020 buPROPion (WELLBUTRIN XL) 150 mg XL tablet Take 1 Tab by mouth daily. 90 Tab 1 11/19/2018 04/25/2020 docusate sodium (COLACE) 100 mg capsule [...] 10/30/2018 04/25/2020 documented as of this encounter Discharge Disposition Disposition Code Departure Means Destination Home or Self Shelter documented in this encounter Plan of Treatment Not on file documented as of this encounter Visit Diagnoses Not on filedocumented in this encounter Care Teams De Ionizer Operator Relationship Specialty Start Date End Date Emily Bejarano APRN [address] [place] [phone] PCP - General 04/30/18 04/25/22 documented as of this encounter
--- OUTSIDE RECORDS SUMMARY | 2024-07-02 18:53 | XMS_ITS | Encounter Summary ---
Author Organization [facility] Address [address] [place] [address] Care Team Providers Care Regional Service Manager Name Role Phone Emily Bejarano DELMI Primary Care Provider Reason for Visit * Reason Comments Non-stress Test Encounter Details Date Type Department Care Team (Late st Contact Info) Description 10/14/2018 11:00 EST Nurse Only [facility] Obstetrics & Midwifery - [facility] [address] [place], [place] [id number] Loli Chun MD [address] [facility], [address] [place] [address] Nurse, marixa Type 2 diabetes mellitus affecting in second trimester, antepartum (Primary Dx) Discharge Disposition: Auto Discharge Social History Tobacco Use Types Packs/Day Years [...] :33 EDT documented as of this encounter Discharge Diagnoses Diagnosis O24.112 Pre-existing type 2 diabetes, in , second trimester-O24.112[ICD-10-CM] documented in this encounter Discharge Disposition Disposition Code Departure Means Destination Auto Discharge documented in this encounter Progress Notes * Loli Chun MD - 10/14/2018 1100 EST NST Report Baseline Heart Rate: 140 Accelerations: present Movement: present Decelerations: absent Contractions: absent Interpretation: Reactive Loli Chun MD 10/14/2018 12:21 documented in this encounter Plan of Treatment Not on file documented as of this encounter Visit Diagnoses Diagnosis Type 2 diabetes mellitus affecting in second trimester, antepartum- Primary documented in this encounter Care Teams Regional Service Manager Relationship Specialty Start Date End Date Emily Bejarano, DELMI [address] [place] [phone] PCP - General 04/30/18 04/25/22 documented as of this encounter
--- OUTSIDE RECORDS SUMMARY | 2024-07-02 18:53 | XMS_ITS | Encounter Summary ---
Author Organization [facility] Address [address] [place] [address] Care Team Providers Care Education Reporter Name Role Phone Emily Bejarano DELMI Primary Care Provider [phone] Reason for Visit * Reason Onset Date Comments Appointment Related 11/09/2019 Encounter Details Date Type Department Care Team (Late st Contact Info) Description 11/09/2019 Telephone [facility] Women's Services - [address] [address] Dee Schmitt MD Appointment Related Social History Tobacco Use [...] encounter Miscellaneous Notes * Telephone Encounter - Johana Lo - 11/09/2019 5368 EST PAS Message: Yesenia called to cancel her appointment with Dee Schmitt MD on Saturday, November 11 at 0900 as patient has started her menstrual cycle. Patient would like a call back to reschedule? YES documented in this encounter Plan of Treatment Not on file documented as of this encounter Visit Diagnoses Not on filedocumented in this encounter Care Teams Education Reporter Relationship Specialty Start Date End Date Emily Bejarano APRN [address] [place] [phone] PCP - General 04/30/18 04/25/22 documented as of this encounter
--- OUTSIDE RECORDS SUMMARY | 2024-07-02 18:53 | XMS_ITS | Encounter Summary ---
Author Organization [facility] Address [address] [place] [address] Care Team Providers Care High School Band Teacher Name Role Phone Emily Bejarano Lena AWAD Primary Care Provider [phone] Reason for Visit * Reason Onset Date Comments Wound Infection 11/15/2018 Encounter Details Date Type Department Care Team (Late st Contact Info) Description 11/15/2018 Telephone [facility] Obstetrics & Midwifery - [address] [address] Leidy Paul MBBS [address] [place] [address] Wound Infection Social History Tobacco Use Types Packs/Day Years [...] encounter Miscellaneous Notes * Telephone Encounter - Leidy Paul MBBS - 11/15/2018 3754 EST Yesenia is a 38y.o. POD # 18 from scheduled Repeat LTCS and BTL. She calls to reports clear to yellow drainage from her incision for the last few days, redness and pain. She said she went to [facility] last week, 2 days ago and yesterday for her incision. She said allthey did was spray it some sort of antiseptic and give Keflex which she has taken for 2 days so far. She denies fever or worsening erythema since last week. She was supposed to be seen by wound care at her home today but she was not at home for the appointment. [facility]. She asked if she could come to the ER and I said that is reasonable but she would come here alone with her . I explained that our clinic will not be open until Saturday. I asked if anyone else could accompany her tonight and she said no but may be able to have someone tomorrow. She then mentioned that there will be a home wound care visit tomorrow morning. I advised to be seen by the wound care nurse and then either come to the ER or call us again. Patient agreed. Leidy Mason. Fellow PGY 5 Maternal Medicine [email or web address] documented in this encounter Plan of Treatment Not on file documented as of this encounter Visit Diagnoses Not on filedocumented in this encounter Care Teams High School Band Teacher Relationship Specialty Start Date End Date Emily Bejarano, DELMI [address] [place] [phone] PCP - General 04/30/18 04/25/22 documented as of this encounter
--- OUTSIDE RECORDS SUMMARY | 2024-07-02 18:53 | XMS_ITS | Encounter Summary ---
Author Organization [facility] Address [address] [place] [address] Care Team Providers Care Pretzel Twisting Machine Operator Name Role Phone Emily Bejarano Lena AWAD Primary Care Provider [phone] Encounter Details Date Type Department Care Team (Late st Contact Info) Description 10/28/2018 Results Only Imaging [facility] Obstetrics & Midwifery - [facility] [address] [place] [address] Willy Mccullough MD [address] [facility], [address] [place] [address] Social History Tobacco Use Types [...] on filedocumented in this encounter Care Teams Pretzel Twisting Machine Operator Relationship Specialty Start Date End Date Emily Bejarano APRN [address] [place] [address] PCP - General 04/30/18 04/25/22 documented as of this encounter
--- OUTSIDE RECORDS SUMMARY | 2024-07-02 18:53 | XMS_ITS | Encounter Summary ---
Author Organization [facility] Address [address] [place] [address] Care Team Providers Care Station Cook Name Role Phone Emily Bejarano Lena AWAD Primary Care Provider [phone] Reason for Visit * Reason Onset Date Comments Wound Infection 12/01/2018 Encounter Details Date Type Department Care Team (Late st Contact Info) Description 12/01/2018 Telephone [facility] Obstetrics & Midwifery - [address] [address] Dahiana Genao RN Wound Infection Social History Tobacco Use Types [...] Telephone Encounter - Dahiana Genao RN - 12/01/2018 1600 EST Rec'd message from Christy Guadarrama RN with [facility] to follow up on patient's poor compliance with care and wound checks. She states patient has admitted to not taking her medications as ordered and has not allowed for wound checks in schedule that was recommended. She was seen by them on 11/21 but then not again until 11/27 and 11/28. Since then, has refused all home visits. Plan for her to see her PCP tomorrow, and follow up with home care this week, but RN states if patient continues to refuse care/no-show, then she will likely need to have orders signed for discharge. Patient scheduled for routine PPV on 12/11 w/ Dr. Freitas. documented in this encounter Plan of Treatment Not on file documented as of this encounter Visit Diagnoses Not on filedocumented in this encounter Care Teams Station Cook Relationship Specialty Start Date End Date Emily Bejarano APRN [address] [place] [phone] PCP - General 04/30/18 04/25/22 documented as of this encounter
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
--- OUTSIDE RECORDS SUMMARY | 2024-07-02 18:53 | XMS_ITS | Encounter Summary ---
Author Organization [facility] Address [address] [place] [address] Care Team Providers Care Elementary School Director Name Role Phone Emily Bejarano Lena AWAD Primary Care Provider [phone] Encounter Details Date Type Department Care Team (Late st Contact Info) Description 11/11/2018 Results Only Imaging [facility] Obstetrics & Midwifery - [facility] [address] [place] [address] Willy Mccullough MD [address] [facility], [address] [place] [address] Social History Tobacco Use Types [...] on filedocumented in this encounter Care Teams Elementary School Director Relationship Specialty Start Date End Date Emily Bejarano APRN [address] [place] [place] [address] PCP - General 04/30/18 04/25/22 documented as of this encounter
--- OUTSIDE RECORDS SUMMARY | 2024-07-02 18:53 | XMS_ITS | Encounter Summary ---
Author Organization [facility] Address [address] [place] [address] Care Team Providers Care Environmental Engineering Professor Name Role Phone Emily Bejarano Lena AWAD Primary Care Provider [phone] Reason for Visit * Reason Comments Vaginal Bleeding pt. passed large vag inal blood clot yesterday size of my hand, recieved toradol inj. at [facility] last night. awoke this am with severe pain took tylenol 1G. pt. reports bleeding through tampon and pad in 25min. hx abnormal pap cx, seeing specialist on 08/18. lower abd pain that is not like usual cramps. reports fatigued, nasuea, dizziness. hx tubal ligation Encounter Details Date Type Department Care Team (Late st Contact Info) Description 08/04/2019 17:29 EDT - 08/04/2019 22:06 EDT Emergency [facility] Emergency Department - Main [address] [address] Mio Belle MD [address] [place] [id number] Emergency, MD Madina Abnormal uterine bleeding (Primary Dx) Discharge Disposition: Home or Self Care Social [...] Sign Reading Time Taken Comments Blood Pressure 132/82 08/04/20192201 EDT Pulse 63 08/04/20192201 EDT Temperature 37.1 ??C (98.8 ??F) 08/04/20191741 EDT Respiratory Rate 16 08/04/20192201 EDT Oxygen Saturation 99% 08/04/20192201 EDT Inhaled Oxygen Concentration - - Weight - - Height 177.8 cm (5' 10) 08/04/20191741 EDT Body Mass Index - - documented [...] as of this encounter Discharge Diagnoses Diagnosis N93.9 Abnormal uterine and vaginal bleeding, unspecified-N93.9[ICD-10-CM] R11.0 Nausea-R11.0[ICD-10-CM] N94.6 Dysmenorrhea, unspecified-N94.6[ICD-10-CM] R53.83 Other fatigue-R53.83[ICD-10-CM] R42 Dizziness and giddiness-R42[ICD-10-CM] N81.10 Cystocele, unspecified-N81.10[ICD-10-CM] E11.9 Type 2 diabetes mellitus without complications-E11.9[ICD-10-CM] J45.909 Unspecified asthma, uncomplicated-J45.909[ICD-10-CM] F41.9 Anxiety disorder, unspecified-F41.9[ICD-10-CM] E03.9 Hypothyroidism, unspecified-E03.9[ICD-10-CM] Z98.51 Tubal ligation status-Z98.51[ICD-10-CM] Z88.5 Allergy status to narcotic agent status-Z88.5[ICD-10-CM] Z79.84 long term (current) use of oral hypoglycemic drugs-Z79.84[ICD-10-CM] Z79.899 Other longwall machine operator helper (current) drug therapy-Z79.899[ICD-10-CM] F17.210 Nicotine dependence, cigarettes, uncomplicated-F17.210[ICD-10-CM] documented in this encounter Discharge Instructions * Discharge Instructions* Mio Belle MD, MD - 08/04/2019 22:03 EDT Your labs look well and your pelvic ultrasound is negative. I am comfortable with you leaving without a pelvic given that you are planning on seeing your firmware software verification engineer physician tomorrow. Please follow up with your primary care physician in the next 2-3 days. Please treat your symptoms with fluids, rest and over the counter medications. Please return for worsening symptoms, pain, fevers, chills, vomiting, diarrhea, chest pain, shortness of breath, abdominal pain, headaches or difficulty urinating or stooling. * Attachments The following attachments cannot be sent through Care Everywhere. * Vaginal Bleeding (Danish) documented in this encounter Medications at Time [...] Puff as directed every 12 hours. 04/25/2020 ibuprofen (MOTRIN) 600 mg tablet Take [...] or Self Care documented in this encounter ED Notes * Keely Tidwell RN - 08/04/20192203 EDT Pt given discharge instructions and questions answered. Pt ambulated off unit with steady gait. Resps deep and equal * Mio Belle MD, MD - 08/04/20191952 EDT This patient received an evaluation and medical screening exam for emergent medical conditions at the [facility] on 08/04/2019 Chief Complaint Vaginal bleeding HPI Yesenia Fragoso is a 38 y.o. female with PMH including , T2DM, vaginal prolapse, tubal ligation who presents to the ED for vaginal bleeding. The patient states that she had had increased bleeding and pain during menstruation since October when she had a followed by vaginal prolapse. Yesterday, the patient reportedly passed a blood clot the size of her fist. She went to [facility] where she received a Toradol injection for pain and was discharged. Last night, the patient was woken by severe pain, and took 1 g acetaminophen. She notes that the pain does not feel like normal menstrual cramps and is much more severe. Additionally, she notes that this heavy menstrual flow is sometimes normal for her. She notes associated nausea, fatigue, and dizziness. Patient denies fevers, chills, vomiting, diarrhea, chest pain, shortness of breath, lightheadedness, dysuria, rashes, blurred vision, headaches. History was provided by: patient, medical records Patient's pertinent PMH, FH, SH were reviewed and updated PRN. ROS A 10 point review of systems has been performed and is otherwise negative except as noted in the HPI. Physical Exam Vital Signs Vitals Reassessment?: Yes Temp: 37.1 ??C (98.8 ??F) Temp src: Oral Pulse: 63 Resp: 16 SpO2: 99 % BP: 132/82 BP MAP: 92 mm Hg BP Device: BP Machine Patient Position: Sitting BP Cuff Location: Left arm Physical Exam Constitutional: She is oriented to person, place, and time. She appears well- developed and well-nourished. No distress. HENT: Head: Normocephalic and atraumatic. Nose: Nose normal. Mouth/Throat: Oropharynx is clear and moist. Eyes: Pupils are equal, round, and reactive to light. Conjunctivae and EOM are normal. Right eye exhibits no discharge. Left eye exhibits no discharge. No scleral icterus. Neck: Normal range of motion. Neck supple. Cardiovascular: Normal rate, regular rhythm and normal heart sounds. Pulmonary/Chest: Effort normal. No respiratory distress. Abdominal: Soft. There is tenderness. Tenderness to palpation in the lower abdomen Musculoskeletal: Normal range of motion. Neurological: She is alert and oriented to person, place, and time. Skin: Skin is warm and dry. Capillary refill takes less than 2 seconds. She is not diaphoretic. Psychiatric: She has a normal mood and affect. Her behavior is normal. Nursing note and vitals reviewed. Laboratory Results Labs Reviewed COMPLETE BLOOD COUNT AND DIFFERENTIAL - Abnormal Result Value Status WBC 12.16 Final RBC 4.52 Final Hemoglobin 11.9 Final HCT 36.7 Final MCV 81 Final MCH 26.3 (*) Final MCHC 32.4 Final RDW-CV 14.4 Final RDW-SD 42.2 Final PLT 338 Final MPV 9.8 Final Neutrophils 63.1 Final Lymphocytes 30.6 Final Monocytes 3.5 Final Eosinophils 2.3 Final Basophils 0.3 Final Immature Grans 0.2 Final ABS Neutrophils 7.67 Final ABS Lymphs 3.72 (*) Final ABS Monocytes 0.42 Final ABS Eosinophils 0.28 Final ABS Basophils 0.04 Final ABS Immature Grans 0.03 Final Type of Diff: Automated Final COMPREHENSIVE METABOLIC PANEL (CMP) - Abnormal Potassium 3.9 Final Sodium 138 Final Chloride 104 Final CO2 26 Final Total Alkaline Phosphatase 67 Final Bilirubin, Total <0.5 Final AST 19 Final ALT 16 Final Albumin 3.7 Final Total Protein 6.8 Final Creatinine 0.89 Final GFR, Calculated 83 Final BUN 16 Final Calcium 9.4 Final Calculated Calcium 9.6 Final Glucose, Serum 159 (*) Final Fasting? Unknown Final POCT URINE DIPSTICK, CLINITEK - Abnormal Color YELLOW Final Clarity, UA Clear Final Glucose Neg Final Bilirubin 1+ (*) Final Ketones Neg Final Specific [place] >=1.030 Final Blood 3+ (*) Final pH 5.5 Final Protein 1+ (*) Final Urobilinogen 0.2 Final Nitrite Neg Final Leuk Esterase Trace (*) Final Tech ID [id number] Final POCT TEST, CLINITEK UPT Result Neg Final Tech ID [id number] Final Data Interpretation Imaging obtained was reviewed and independently interpreted: a transvaginal pelvis US was obtained that identified no uterine abnormalities. Endometrial stripe is normal in thickness. Laboratory results independently reviewed, significant for: negative UPT, 3+ hematuria, 1+ protein,trace leuk esterase. Procedures Procedures None A medical screening exam was performed. Assessment and Plan 38 y.o. female with PMH including , T2DM, vaginal prolapse, tubal ligation who presents tot ED for vaginal bleeding. The patient states that she had had increased bleeding and pain duringmenstruation since October when she had a followed by vaginal prolapse. Yesterday, the patient reportedly passed a blood clot the size of her fist. She went to [facility] where she received a Toradol injection for pain and was discharged. Last night, the patient was woken by severe pain, andtook 1 g acetaminophen. She notes that the pain does not feel like normal menstrual cramps Differential diagnosis includes but is not limited to abnormal uterine bleeding due to potential fibroid versus . The patient had a physical exam that showed tenderness in the lower abdomen but was otherwise normal. She was hydrated with 1 L IV normal saline, given 4 mg IV ondansetron for nausea, and 10 mg IV Toradol for pain. The patient had labs and imaging that was reassuring. She stated that her bleeding had slowed down at this time and requested to return home. She had an unremarkable pelvic ultrasound.She stated that she would follow up at the women's center near her home for a pelvic exam. The patient was discharged to home care and advised to follow up as discussed. Prior to discharge usual and customary precautions were reviewed with the patient and/or family including follow-up instructions and reasons to return to the Emergency Department if condition worsens, does not improve as expected, or other new concerns arise. Clinical Impression Final diagnoses: Abnormal uterine bleeding Disposition Discharged The patient's pain was managed to an adequate level weighing risk vs. benefit of further medications.At the end of my care of this patient, the patient's pain was 8 on a zero to ten scale. Any further pain treatment will be at the discretion of the provider following up with the patient based on their clinical assessment. Condition at the end of my care of this patient: Stable Scribe attestation: This documentation is recorded by Constanza Martines acting as Scribe under the direction and presence of Mio Belle MD. Mio Belle MD: I personally performed the services recorded by the scribe in my presence. I confirm the scribe's documentation has been reviewed by me to accurately and completely record my work, treatment, procedures, and medical decision making. documented in this encounter Plan of Treatment Not on file documented as of this encounter Procedures Procedure Name Priority Date/Time Associated Diagnosis Comments POCT TEST, CLINITEK STAT 08/04/2019 21:22 EDT POCT URINE DIPSTICK, CLINITEK STAT 08/04/2019 21:19 EDT RAD US PELVIS, TRANSVAGINAL, AND LIMITED DOPPLER STAT 08/04/2019 21:13 EDT COMPLETE BLOOD COUNT AND DIFFERENTIAL STAT 08/04/2019 20:12 EDT COMPREHENSIVE METABOLIC PANEL (CMP) STAT 08/04/2019 20:12 EDT documented in this encounter Results * POCT TEST, CLINITEK (08/04/2019 21:22 EDT) UPT Result Neg Neg 08/04/2019 21:29 EDT [facility] peoplesoft financial developer ID [id number] 08/04/2019 21:29 EDT [facility] Comment:Test performed at [facility] Department Urine specimen (specimen) URINE / Unknown 08/04/2019 21:22 EDT 08/04/2019 21:29 EDT Mio Belle MD POINT OF CAR E TEST ORDERABLES [facility] [address] [place] [address] * (ABNORMAL) POCT URINE DIPSTICK, CLINITEK (08/04/2019 21:19 EDT) Color YELLOW Yellow 08/04/2019 21:24 EDT [facility] Clarity, UA Clear Clear 08/04/2019 21:24 EDT [facility] Glucose Neg Neg 08/04/2019 21:24 EDT [facility] Bilirubin 1+(A) Neg 08/04/2019 21:24 EDT [facility] Ketones Neg Neg 08/04/2019 21:24 EDT [facility] Specific [place] >=1.030 1.001 - 1.035 08/04/2019 21:24 EDT [facility] Blood 3+(A) Neg 08/04/2019 21:24 EDT [facility] pH 5.5 4.6 - 8.0 08/04/2019 21:24 T [facility] Protein 1+(A) Neg 08/04/2019 21:24 EDT [facility] Urobilinogen 0.2 0.2 - 1.0 mg/dL 08/04/2019 21:24 T [facility] Nitrite Neg Neg 08/04/2019 21:24 [facility] Leuk Esterase Trace(A) Neg 08/04/2019 21:24 [facility] peoplesoft financial developer ID [id number] 08/04/2019 21:24 EDT [facility] Comment:Test performed at [facility] Urine specimen (specimen) URINE / Unknown 08/04/2019 21:19 EDT 08/04/2019 21:24 EDT Mio Belle MD POINT OF CAR E TEST ORDERABLES [facility] [address] [place] [address] * RAD US PELVIS, TRANSVAGINAL, AND LIMITED DOPPLER (08/04/2019 21:13 EDT) Anatomical Region Laterality Modality Other 08/04/2019 21:1 3 EDT 08/05/2019 10:14 EDT Narrative 08/05/2019 10:14 EDT RAD US PELVIS, TRANSVAGINAL, AND LIMITED DOPPLER ??08/04/2019 9:13 PM Signs and Symptoms: ?? pelvic pain and vaginal bleeding Comparison: CT renal colic August 2017 Technique: Still and cine ultrasound images of the pelvis were obtained transabdominally and transvaginally with color and spectral Doppler. Findings: Exam quality is degraded by patient body habitus and the prolapsed state of the uterus. The uterus is anteverted and measures 11.5 x 5.0 x 6.1 cm in size. The myometrium is homogenous in echotexture. The endometrial stripe is homogenous and measures 5 mm in double thickness. The right ovary measures 3.3 x 2.3 x 2.3 cm. ??It demonstrates normal flow on both color Doppler and spectral tracings. The left ovary measures 3.5 x 3.2 x 3.1 cm. The left ovary was difficult to image due to deep positioning. Doppler waveforms are suboptimal for evaluation of torsion. The cervix is normal in appearance, with small both and cysts. There is no free fluid in the pelvis. ?? Impression: 1. ??No uterine abnormality identified, specifically the endometrial stripe is normal in thickness. 2. ??Suboptimal evaluation of the left ovary due to positioning. I have personally reviewed the images and the above interpretation and agree with the findings. Procedure Note Martin Hall MD, - 08/05/2019 RAD US PELVIS, TRANSVAGINAL, AND LIMITED DOPPLER 08/04/2019 9:13 PM Signs and Symptoms: pelvic pain and vaginal bleeding Comparison: CT renal colic August 2017 Technique: Still and cine ultrasound images of the pelvis were obtained transabdominally and transvaginally with color and spectral Doppler. Findings: Exam quality is degraded by patient body habitus and the prolapsed state of the uterus. The uterus is anteverted and measures 11.5 x 5.0 x 6.1 cm in size. The myometrium is homogenous in echotexture. The endometrial stripe is homogenous and measures 5 mm in double thickness. The right ovary measures 3.3 x 2.3 x 2.3 cm. It demonstrates normal flow on both color Doppler and spectral tracings. The left ovary measures 3.5 x 3.2 x 3.1 cm. The left ovary was difficult to image due to deep positioning. Doppler waveforms are suboptimal for evaluation of torsion. The cervix is normal in appearance, with small both and cysts. There is no free fluid in the pelvis. Impression: 1. No uterine abnormality identified, specifically the endometrial stripe is normal in thickness. 2. Suboptimal evaluation of the left ovary due to positioning. I have personally reviewed the images and the above interpretation and agree with the findings. Mio Belle MD [facility] [place] * (ABNORMAL) COMPREHENSIVE METABOLIC PANEL (CMP) (08/04/2019 20:12 EDT) Potassium 3.9 3.5 - 5.0 mEq/L 08/04/2019 20:51 [facility] Sodium 138 136 - 145 mEq/L 08/04/2019 20:51 [facility] Chloride 104 96 - 110 mEq/L 08/04/2019 20:51 [facility] CO2 26 22 - 32 mEq/L 08/04/2019 20:51 [facility] Total Alkaline Phosphatase 67 38 - 126 U/L 08/04/2019 20:51 [facility] Bilirubin, Total <0.5 <1.4 mg/dl 08/04/20 19 20:51 [facility] AST 19 15 - 46 U/L 08/04/2019 20:51 [facility] ALT 16 <34 U/L 08/04/2019 20:51 [facility] Albumin 3.7 3.4 - 4.9 g/dl 08/04/2019 20:51 [facility] Total Protein 6.8 6.3 - 8.2 g/dl 08/04/2019 20:51 [facility] Creatinine 0.89 0.52 - 1.04 mg/dl 08/04/2019 20:51 [facility] GFR, Calculated 83 >60 ml/min/1.7 3m2 08/04/2019 20:51 [facility] Comment: eGFR calculated using CKD-EPI equation for non Americans. Multiply eGFR by 1.16 for Americans. BUN 16 10 - 26 mg/dl 08/04/2019 20:51 [facility] Calcium 9.4 8.5 - 10.5 mg/dl 08/04/2019 20:51 [facility] Calculated Calcium 9.6 8.5 - 10.5 mg/dl 08/04/2019 20:51 [facility] Glucose, Serum 159(H) 70 - 100 mg/dl 08/04/2019 20:51 [facility] Fasting? Unknown 08/04/2019 20:23 [facility] Blood specimen (specimen) BLOOD SPECIMEN / Unknown 08/04/2019 20:12 EDT 08/04/2019 20:23 EDT Mio Belle MD CHEMISTRY & BLOOD GAS ORDERABLES [facility] [address] [place] [id number] * (ABNORMAL) COMPLETE BLOOD COUNT AND DIFFERENTIAL (08/04/2019 20:12 EDT) WBC 12.16 4.0 - 12.4 K/cmm 08/04/2019 20:45 [facility] RBC 4.52 3.86 - 5.04 M/cmm 08/04/2019 20:45 [facility] Hemoglobin 11.9 11.6 - 15.2 gm/dl 08/04/2019 20:45 [facility] HCT 36.7 34.9 - 44.4 % 08/04/2019 20:45 [facility] MCV 81 81 - 98 fl 08/04/2019 20:45 [facility] MCH 26.3(L) 26.7 - 33.3 pg 08/04/2019 20:45 [facility] MCHC 32.4 32.1 - 35.9 gm/dl 08/04/2019 20:45 [facility] RDW-CV 14.4 <14.7 % 08/04/2019 20:45 [facility] RDW-SD 42.2 <50.4 fl 08/04/2019 20:45 [facility] PLT 338 141 - 377 K/cmm 08/04/2019 20:45 [facility] MPV 9.8 9.5 - 12.7 fl 08/04/2019 20:45 [facility] % Neutrophils 63.1 % 08/04/2019 20:45 [facility] % Lymphocytes 30.6 % 08/04/2019 20:45 [facility] % Monocytes 3.5 % 08/04/2019 20:45 [facility] % Eosinophils 2.3 % 08/04/2019 20:45 [facility] % Basophils 0.3 % 08/04/2019 20:45 [facility] % Immature Grans 0.2 % 08/04/2019 20:45 [facility] ABS Neutrophils 7.67 2.20 - 8.85 K/cmm 08/04/2019 20:45 [facility] ABS Lymphs 3.72(H) 1.09 - 3.30 K/cmm 08/04/2019 20:45 [facility] ABS Monocytes 0.42 0.1 - 0.8 K/cmm 08/04/2019 20:45 [facility] ABS Eosinophils 0.28 0.03 - 0.61 K/cmm 08/04/2019 20:45 [facility] ABS Basophils 0.04 0.01 - 0.11 K/cmm 08/04/2019 20:45 [facility] ABS Immature Grans 0.03 0 - 0.06 K/cmm 08/04/2019 20:45 [facility] Type of Diff: Automated 08/04/2019 20:45 [facility] Blood specimen (specimen) BLOOD SPECIMEN / Unknown 08/04/2019 20:12 EDT 08/04/2019 20:23 EDT Mio Belle MD PACKAGES & D NA PROBE ORDERABLES [facility] [address] [place] [address] documented in this encounter Visit Diagnoses Diagnosis Abnormal uterine bleeding- Primary Unspecified disorder of menstruation and other abnormal bleeding from female genital tract documented in this encounter Administered Medications Inactive Administered Medications - up to 3 most recent administrations Medication Order MAR Action Action Date Dose Rate Site ketOROLAC (TORADOL) injection 10 mg 10 mg, intravenous, NOW X1, 1 dose, On Sat08/04/19 at 2014, STAT Given 08/04/2019 20:31 EDT 10 mg ondansetron (PF) (ZOFRAN) injection 4 mg 4 mg, intravenous, NOW X1, 1 dose, On Sat08/04/19 at 2014, STAT Given 08/04/2019 20:29 EDT 4 mg documented in this encounter Discontinued Medications Medication Sig Discontinue Reason Start Date End Da te HYDROmorphone (DILAUDID) 2 mg tablet Take 1 Tab by mouth every 4 hours as needed for Pain. Daily Max: 12 mg Therapy completed 10/30/2018 08/04/2019 documented as of this encounter Active and Recently Administered Medications Times are shown in EDT. Scheduled Medication Order 08/02/2019 08/03/2019 08/04/2019 ketOROLAC (TORADOL) injection 10 mg (COMPLETED) 10 mg, intravenous, NOW X1, 1 dose, On Sat08/04/19 at 2014, STAT 2030 (Given - Provid er: Keely Tidwell RN) ondansetron (PF) (ZOFRAN) injection 4 mg (COMPLETED) 4 mg, intravenous, NOW X1, 1 dose, On Sat08/04/19 at 2014, STAT 2028 (Given - Provid er: Keely Tidwell RN) sodium chloride 0.9 % BOLUS 1,000 mL 1,000 mL, intravenous, NOW X1, 1 dose, On Sat08/04/19 at 2014, STAT 2123 (Not Given - Pr ovider: Keely Tidwell RN - Reason: Patient/family refused) documented in this encounter Orders Medications Ordered That Sheng ht Not Have Been Administered Count Last Ordered Date First Ordered Date sodium chloride 0.9 % BOLUS 1,000 mL 1 07/26 documented in this encounter Care Teams Environmental Engineering Professor Relationship Specialty Start Date End Date Emily Bejarano APRN [address] [place] [id number] PCP - General 04/30/18 04/25/22 documented as of this encounter
--- OUTSIDE RECORDS SUMMARY | 2024-07-02 18:53 | XMS_ITS | Encounter Summary ---
Author Organization [facility] Address [address] [place] [id number] Care Team Providers Care Supervisor [employer] Name Role Phone Emily Bejarano Lena AWAD Primary Care Provider [phone] Encounter Details Date Type Department Care Team (Latest Contact Info) Description 06/15/2019 9:31 EDT - 06/15/2019 23:59 EDT Hospital Encounter [address] [address] Unknown, Provider, Discharge Disposition: Home or Self [...] Code Departure Means Destination Home or Self Long Term documented in this encounter Plan of Treatment Not on file documented as of this encounter Visit Diagnoses Not on filedocumented in this encounter Care Teams Supervisor [employer] Relationship Specialty Start Date End Date Emily Bejarano APRN [address] [place] [phone] PCP - General 04/30/18 04/25/22 documented as of this encounter
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
--- OUTSIDE RECORDS SUMMARY | 2024-07-02 18:53 | XMS_ITS | Encounter Summary ---
Author Organization [facility] Address [address] [place] [address] Care Team Providers Care Extrusion Supervisor Name Role Phone Emily Bejarano Lena AWAD Primary Care Provider Reason for Visit * Reason Onset Date Comments Results 09/24/2019 Encounter Details Date Type Department Care Team (Late st Contact Info) Description 09/24/2019 Telephone [facility] Pelvic Medicine and Reconstructive Surgery - Medical Office Building [address] [address] Sonya Roy MD MPH 2 [facility] Medical Office [facility], [address] [address] Results Social History Tobacco Use Types Packs/Day [...] No 10/28/2018 documented as of this encounter Ordered Prescriptions Prescription Sig Dispensed Refills Start Date End Da te fluconazole (DIFLUCAN) 150 mg tablet Take 1 Tab by mouth once for 1 dose. 1 Tab 1 09/24/2019 04/25/2020 metroNIDAZOLE (FLAGYL) 500 mg tablet Take four tabs at once. 4 Tab 09/24/2019 04/25/2020 documented in this encounter Miscellaneous Notes * Telephone Encounter - Sonya Roy MD - 09/24/2019 1441 EDT Patient has + trichomonas and + yeast on vaginitis exam. Orders were placed. Needs to com in to get GC/Chlamydia documented in this encounter Plan of Treatment Not on file documented as of this encounter Visit Diagnoses Not on filedocumented in this encounter Care Teams Extrusion Supervisor Relationship Specialty Start Date End Date Emily Bejarano APRN [address] [place] [phone] PCP - General 04/30/18 04/25/22 documented as of this encounter
--- OUTSIDE RECORDS SUMMARY | 2024-07-02 18:53 | XMS_ITS | Encounter Summary ---
Author Organization [facility] Address [address] [place] [address] Care Team Providers Care Investigation Lieutenant Name Role Phone Emily Bejarano Lena AWAD Primary Care Provider Encounter Details Date Type Department Care Team (Late st Contact Info) Description 11/04/2018 Results Only Imaging [facility] Obstetrics & Midwifery - [facility] [address] [place] [address] Myah Freitas MD [address] [facility], [address] [place] [address] Social History Tobacco Use Types [...] on filedocumented in this encounter Care Teams Investigation Lieutenant Relationship Specialty Start Date End Date Emily Bejarano APRN [address] [place] [address] PCP - General 04/30/18 04/25/22 documented as of this encounter
--- OUTSIDE RECORDS SUMMARY | 2024-07-02 18:53 | XMS_ITS | Encounter Summary ---
Author Organization [facility] Address [address] [place] [address] Care Team Providers Care Production Welding Supervisor Name Role Phone Emily Bejarano Lena AWAD Primary Care Provider [phone] Reason for Referral * (Routine) - Receiving Office to Obtain Authorization Specialty Diagnoses / Procedures Referred By uLiza alvarez Referred To Contact Parris Glasgow MD [address] [place] [address] Referral ID Status Reason Start Date Expiration Date Visits Requested Visits Authorized [id number] Receiving Office to Obtain Authorization Specialty Services Required 10/23/20 18 1 1 Encounter Details Date Type Department Care Team (Late st Contact Info) Description 10/23/2018 1:12 EST - 10/23/2018 5:00 EST Hospital Encounter [facility] [address] [place], [place] [address] Edel Valles MD [address] [facility], [address] [place] [id number] Discharge Disposition: Home or Self Care Social [...] Sign Reading Time Taken Comments Blood Pressure 109/64 10/23/2018 0356 EST Pulse - - Temperature 36.2 ??C (97.2 ??F) 10/23/2018 0132 EST Respiratory Rate 18 10/23/2018 0356 EST Oxygen Saturation - - Inhaled Oxygen Concentration - - Weight - - Height - - Body Mass Index - - documented in this encounter Discharge Diagnoses Diagnosis O47.1 False labor at or after 37 completed weeks of gestation-O47.1[ICD-10-CM] O09.523 Supervision of elderly multigravida, third trimester-O09.523[ICD-10-CM] Z3A.38 38 weeks gestation of -Z3A.38[ICD-10-CM] documented in this encounter Medications at Time [...] documented in this encounter Progress Notes * Parris Glasgow MD - 10/23/2018 0215 EST L&D Triage Note C/C: Yesenia Lagos is a 38 y.o. @ 38w2d who presents to L&D with contractions, watery discharge. HPI: Patient reports ctx started at 22:00 and have been q10min or so since. She has had intermittent watery discharge that she noticed on the drive here. Denies VB. +FM. complicated by: - Hypothyroidism on synthroid - Anxiety - Hx CS for second for NRFA, desires repeat - T2DM on metformin - Breech presentation - BMI 45 OB Hx significant for in first , then CS in second for NRFA. O: BP 115/58 Temp 36.2 ??C (97.2 ??F) (Tympanic) Resp 16 LMP 12/30/2017 FHT: 140 baseline, moderate variability, no accels, no decels; Category I tracing --> Baseline 120, moderate variability, pos accels, no decels. Reactive NST. [place]: two contractions over 2 hours SSE: neg pooling, neg nitrazine, neg ferning SVE: closed / long, posterior, firm Bedside U/S: cephalic Glucose 79 Results for YESENIA LAGOS ( ) as of 10/23/2018 20:36 10/23/2018 04:59 Color Yellow Clarity, UA Hazy Refractometer SG,Urine 1.012 pH, UA 6.5 Glucose, UA Neg Bilirubin, UA Neg Ketones Neg Blood, UA Neg Protein, UA Neg Urobilinogen, UA Normal Nitrite, UA Neg Leuk Esterase Neg UA Method Used See Comment Urine WBC Count Automated 0 to 3 Urine RBC Count Automated 0 to 2 Urine Squamous Epithelial Cell Count, Automated Moderate (A) Urine Bacteria Count, Automated None seen Urine Hyaline Casts, Automated < or = 10 UA Comment Sediment results A/P: Yesenia Lagos is a 38 y.o. @ 38w2d presenting with contractions which are likely uterine activity. Patient appears very comfortable with negative SROM check and not derek. Glucose 79. UA negative. Reactive NST. - Dc to home with labor precautions Discussed with Dr. Marco Glasgow MD 10/23/2018 2:15 PGY2, OBGYN Pager [phone] * Anamika Back, RN - 10/23/2018 0135 EST 0130 pt arrives from home with c/o labor. Pt states contractions started at 2100 this evening, became more intense about 40 min ago. Pt thinks she may have leakage of fluid noted on ride down this evening. Pt states has been a breech presentation. C/o vaginal pressure. Denies vag bleeding. 0140 Dr Colby in room to review history. 0200 sterile spec exam, neg nitrazine, no pooling noted, v/e closed 0250 ultrasound to verify presenting part by Dr Colby vertex 0315 finger stick 72, pt to eat 0500 reviewed d/c instructions home with follow up next Saturday as stated by pt. Will send UA to Lab as ordered documented in this encounter Plan of Treatment Scheduled Referrals Name Type Priority Associated Diagnoses Order Schedule PROVIDER FOLLOW-UP INSTRUCTIONS Outpatient Referral Routine Ordered: 10/23/2018 documented as of this encounter Procedures Procedure Name Priority Date/Time Associated Diagnosis Comments URINE CHEMICAL (DIP) & SEDIMENT (MICRO) WITHOUT REFLEX TO CULTURE STAT 10/23/2018 4:59 EST GLUCOSE, GLUCOMETER Routine 10/23/2018 3 :17 EST documented in this encounter Results * (ABNORMAL) UA, CHEMICAL AND SEDIMENT ANALYSIS (DIPSTICK AND MICROSCOPIC) (10/23/2018 4:59 EST) Color, UA Yellow 10/23/2018 5:43 [facility] Clarity, UA Hazy 10/23/2018 5:43 [facility] Glucose, UA Neg Neg 10/23/2018 5:43 [facility] Bilirubin, UA Neg Neg 10/23/2018 5:43 [facility] Ketones, UA Neg Neg 10/23/2018 5:43 [facility] Refractometer SG,Urine 1.012 1.001 - 1.035 10/23/2018 5:43 [facility] Blood, UA Neg Neg 10/23/2018 5:43 [facility] pH, UA 6.5 4.6 - 8.0 10/23/2018 5:43 [facility] Protein, UA Neg Neg 10/23/2018 5:43 [facility] Urobilinogen, UA Normal Normal E.U./dl 10/23/2018 5:43 [facility] Nitrite, UA Neg Neg 10/23/2018 5:43 [facility] Leuk Esterase Neg Neg 10/23/2018 5:43 [facility] UA Method Used 10/23/2018 3:26 [facility] Comment: Testing performed using [employer] [id number]. Urine RBC Count Automated 0 to 2 0 to 2 /HPF 10/23/2018 5:43 [facility] Urine WBC Count Automated 0 to 3 0 to 3 /HPF 10/23/2018 5:43 [facility] Urine Squamous Epithelial Cell Count, Automated Moderate(A) None seen /LPF 10/23/2018 5:43 [facility] Urine Hyaline Casts, Automated < or = 10 < or = 10 /LPF 10/23/2018 5:43 [facility] Urine Bacteria Count, Automated None seen None seen 10/23/2018 5:43 [facility] UA Comment Sediment results 10/23/2018 5:43 [facility] Comment: are unreliable on urines unrefrig >2hrs or refrig >8hrs. Urine specimen (specimen) URINE / Unknown 10/23/2018 4:59 EST 10/23/2018 5:06 EST Parris Glasgow MD URINALYSIS ORDERABLE S Performing Organization Address [facility] Co de Phone Number [facility] [address] [place] [address] * GLUCOSE, GLUCOMETER (10/23/2018 3:17 EST) Glucose, Fingerstick 79 70 - 100 mg/dl 10/23/2018 3:22 EST [facility] [place] ID [id number] 10/23/2018 3:22 [facility] Comment:[facility] BLOOD SPECIMEN / Unknown 10/23/2018 3:17 EST 10/23/2018 3:22 EST Edel Valles MD CHEMISTRY & BLOOD GA S ORDERABLES Performing Organization Address [facility] Co de Phone Number [facility] [address] [place] [address] documented in this encounter Visit Diagnoses Diagnosis Supervision of high risk , antepartum- Primary documented in this encounter Orders Diet Count Last Ordered Date First Orde red Date DISCHARGE DIET 2 10/23/2018 Nursing Count Last Ordered Date First Orde red Date ACTIVITY INSTRUCTIONS 1 10/23/2018 BATHING INSTRUCTIONS 1 10/23/2018 Discharge Count Last Ordered Date First Orde red Date DISCHARGE PATIENT 1 10/23/2018 Legal Count Last Ordered Date First Orde red Date MISCELLANEOUS DISCHARGE INSTRUCTIONS 1 09/26 documented in this encounter Care Teams Production Welding Supervisor Relationship Specialty Start Date End Date Emily Bejarano, GEOCHEMICAL LABORATORY TECHNICIAN [address] [place] [address] PCP - General 04/30/18 04/25/22 documented as of this encounter
--- OUTSIDE RECORDS SUMMARY | 2024-07-02 18:53 | XMS_ITS | Encounter Summary ---
Author Organization [facility] Address [address] [place] [address] Care Team Providers Care Boiler Fireman Name Role Phone Emily Bejarano APRN Primary Care Provider [phone] Reason for Referral * Referral (48 Hrs (Urgent)) - Denied Specialty Diagnoses / Procedures Referred By Luiza alvarez Referred To Contact Diagnoses Supervision of high risk , antepartum Depression affecting Yesenia Zhao MD [address] [place] [address] Referral ID Status Reason Start Date Expiration Date V isits Requested Visits Authorized [id number] Denied Specialty Services Required 11/19/2018 1 0 Question Answer What areas would you like the CHT to focus on? [facility], Women[facility] Health Initiative If Yes to [facility], Please Select from the Following: Connecting to Community Therapist, Financial Issues - Needs gas money to get to appointments. FOB is on the run from the law and has little supports, states sh eis very depressed The Stages of Change: Determination/Prepartion (YES) Patient's Weight (kg) (1 lb = 0.4536 kg): 134.3 Patient's Height (cm) (1 in = 2.54 cm): 180.3 Scheduling Comments (optional ? describe specific scheduling needs if applicable): Needs help getting to appointment on Saturday, 11/21. Also needs help connecting to therapist for PP depression. Needs resources, as partner is running from the law. Expected Discharge Date (Inpatient Only): 11/19/2018 Comments As we discussed in your visit today, someone will be contacting you from the Community Health Team to schedule an appointment with you. If you do not hear from the CHT within a week please call the [facility] Health Team at [phone]. Reason for Visit * Reason Comments Incisional Pain patient had c-sectio n 3 weeks ago. she went to [facility] for post op infection about 1-2 weeks ago and was put on keflex. continues to have oozing from incision and severe pain. has been taking ibuprofen, afebrile in triage. Encounter Details Date Type Department Care Team (Late st Contact Info) Description 11/19/2018 11:52 EST - 11/19/2018 15:00 EST Emergency [facility] Emergency Department - [address] [address] Ary Dyson PA-C [address] [place] [address], [address] [place] [address] Emergency, MD Madina Wound drainage (Primary Dx); Supervision of high risk , antepartum; Depression affecting Discharge Disposition: Home or Self Care Social [...] Sign Reading Time Taken Comments Blood Pressure 129/69 11/19/2018 1422 EST Pulse 84 11/19/2018 1422 EST Temperature 36.5 ??C (97.7 ??F) 11/19/2018 1159 EST Respiratory Rate 18 11/19/2018 1422 EST Oxygen Saturation 100% 11/19/2018 1422 EST Inhaled Oxygen Concentration - - Weight 134.3 kg (296 lb) 11/19/2018 1159 EST Height 180.3 cm (5' 11) 11/19/2018 1159 EST Body Mass Index 41.28 11/19/2018 1159 EST documented in this encounter Functional Status [...] as of this encounter Discharge Diagnoses Diagnosis O86.01 Infct of obstetric surgical wound, superfic incisional site-O86.01[ICD-10-CM] J45.909 Unspecified asthma, uncomplicated-J45.909[ICD-10-CM] F17.210 Nicotine dependence, cigarettes, uncomplicated-F17.210[ICD-10-CM] Z88.5 Allergy status to narcotic agent status-Z88.5[ICD-10-CM] documented in this encounter Discharge Instructions * Discharge Instructions* Ary Casillas PA-C - 11/19/2018 14:16 EST Continue keflex that was started at [facility] (take 4 times per day with food). Follow up with Maternal Medicine clinic on Saturday. The clinic will call you to set up appointment and to help facilitate getting to your appointments. documented in this encounter Medications at Time [...] Dispensed Refills Start Date End Da te buPROPion (WELLBUTRIN XL) 150 mg XL tablet Take 1 Tab by mouth daily. 90 Tab 1 11/19/2018 04/25/2020 documented in this encounter Discharge Disposition Disposition Code Departure Means Destination Home or Self Care documented in this encounter Progress Notes * Emily Caban - 11/19/2018 1500 EST Pt requested gas card during triage - lengthy travel to be here from [place]. CM provided $10 gas card for safe return home. Emily Caban # [id number] documented in this encounter Consult Notes * Parris Glasgow MD - 11/19/2018 1429 EST Department of Maternal Medicine Consult Note Admit Date: 11/19/2018 Chief Complaint Patient presents with ??? Incisional Pain patient had 3 weeks ago. she went to [facility] for post op infection about 1-2 weeks ago andwas put on keflex. continues to have oozing from incision and severe pain. has been taking ibuprofen, afebrile in triage. HPI: Yesenia Fragoso is a 38 y.o. POD#22 s/p repeat LTCS and BTL at 39w0d who presents to the Emergency Department because of drainage from her CS wound. She reports she first noticed the redness and drainage from her incision approximately 6 days ago. She went to [facility] a few times to have itevaluated, and they started her on a course of Keflex and anti-yeast on approximately 11/13. She was worried because it is still draining fluid and the fluid smells foul. Denies fevers. Otherwise feeling well. Additionally, patient reports feeling depressed at home. She reports struggling with her mood, noticing that she is short with her kids. She is receiving phone calls from the FOB of her baby who is on the run from the police, and this is causing her significant stress. She finds herself crying for no reason. She reports a hx of PPD and has tried zoloft, effexor in the past. Zoloft did not work for her. Effexor worked, but her insurance doesn't cover the brand form and she says the generic makesher vomit . She hasn't seen her counselor recently. Review of Systems: As above. OB History Para Term AB Living 3 3 3 3 SAB TAB Ectopic Multiple Live Births 0 3 # Outcome Date GA Lbr Blake/2nd Weight Sex Delivery Anes PTL Lv 3 Term 10/28/18 39w0d 2912 g (6 lb 6.7 oz) M CS-LST JESSICA 2 Term 04/17/10 40w0d 3714 g (8 [...] Hypothyroidism affecting , antepartum 04/30/2018 ??? Migraines History reviewed. No pertinent surgical history. Past Gynecological History Social History 02/25/18: NILM, POS for HR or intermediate risk HPV Social History Tobacco Use ??? Smoking status: Current Every Day Smoker Packs/day: 0.25 ??? Smokeless tobacco: Never Used ??? Tobacco comment: smoking 5 per day Substance Use Topics ??? Alcohol use: No reports that she does not use drugs. Medications Allergies (Not in a hospital admission) Allergies Allergen Reactions ??? Dilaudid [Hydromorphone] itching ??? Morphine Hives Objective: Weights Weight : (!) 134.3 kg (296 lb) Patient Vitals for the past 8 hrs: BP Pulse Resp Temp SpO2 11/19/18 1422 129/69 84 18 -- 100 % 11/19/18 1159 136/60 86 18 36.5 ??C (97.7 ??F) 100 % General: NAD Cardiovascular: Regular rate Respiratory: No increased work of breathing Abdomen: soft, mildly tender to palpation along right side of incision. At right aspect of incision, approximately 3 cm opening in incision draining cloudy, purulent fluid. Defect palpated with Qtip and fascia intact. Tracks 3 cm along superior/right aspect, flushed to clear drainage with saline. Erythema along incision but not spreading outwards over abdomen. Packed with 1/4 inch iodoform, covered with ABD and paper tape. Assessment/Problems/Recommendations: Yesenia Fragoso is a 38 y.o. POD22 s/p repeat LTCS and BTL at 39w0d who presents with purulent drainage from right side of incision consistent with cellulitis, partial wound breakdown with intact fascia. Normal vitals, no signs of systemic infection. Cellulitis, wound breakdown - Wound culture obtained and sent - Instructed to call with worsening drainage, fevers at home, or increasing erythema - Continue Keflex 500 mg PO QID - Will see patient in our clinic on Saturday - Will call home VNA who has been visiting to give them instructions for daily dressing change with1/4 iodoform, ABD pad, and paper tape - Patient given dressing supplies to go home with - Will call SW to help arrange transportation for f/u visit Saturday depression Patient exhibiting S+S of depression, with hx of depression in past. - Will prescribe Wellbutrin 150 mg daily - Will have f/u on Saturday - Encouraged to reconnect with prior therapist Abnormal pap Patient with NILM pap, +HR or intermediate risk HPV on 02/2018. - Per ASCCP guidelines, repeat cotesting @ 1 year acceptable vs HPV DNA typing acceptable Seen with Dr. Jamel Glasgow MD 11/19/2018 14:29 Associated attestation - Willy Mccullough MD - 11/19/2018 1731 EST MFM Attending I have seen and examined Ms. Yesenia Fragoso. I have read and agree with Dr. Glasgow's notes and plan documented above. Willy Mccullough MD 11/19/2018 17:31 documented in this encounter ED Notes * Zamzam Rodriguez RN - 11/19/2018 1353 EST OBGYN at bedside * Chaz Paulino - 11/19/2018 1339 EST Blood drawn via saline lock per protocol, tiger and purple tube(s) sent to lab per order. * Ary Casillas PA-C - 11/19/2018 1300 EST DOS: 11/19/2018 Chief Complaint Patient presents with ??? Incisional Pain patient had 3 weeks ago. she went to [facility] for post op infection about 1-2 weeks ago andwas put on keflex. continues to have oozing from incision and severe pain. has been taking ibuprofen, afebrile in triage. HPI The patient is a 38 y.o. female who presents today with Incisional Pain (patient had 3 weeks ago. she went to [facility] for post op infection about 1-2 weeks ago and was put on keflex. continues to have oozing from incision and severe pain. has been taking ibuprofen, afebrile in triage.) HPI 38-year-old female POD#22 from scheduled repeat LTCS and BTL at 39 weeks GA presenting to the emergency department with incisional pain. Patient states she has been to [facility] emergency department several times in the last 2 weeks due to increasing pain and discharge from incision site, was started on Keflex roughly 4 or 5 days ago but still reports oozing and drainage from incision site, sometimes is clear, sometimes looks more like pus, is often malodorous. States she has been feeling somewhat unwell in the last several days, with some nausea without vomiting, chills, and malaise, but has not had a fever. Review of Systems Review of Systems Constitutional: Positive for chills. Negative for fever. Respiratory: Negative for shortness of breath. Gastrointestinal: Positive for abdominal pain and nausea. Negative for diarrhea and vomiting. Genitourinary: Negative for dysuria and pelvic pain. Skin: Positive for color change. The patient's past medical, family and social history was reviewed and updated as needed. Allergies Allergen Reactions ??? Dilaudid [Hydromorphone] itching ??? Morphine Hives Vital Signs Temp: 36.5 ??C (97.7 ??F) Temp src: Oral Pulse: 84 Resp: 18 SpO2: 100 % BP: 129/69 BP MAP: 83 mm Hg BP Device: BP Machine Patient Position: Sitting BP Cuff Location: Left arm O2 Device: None (Room air) Physical Exam Constitutional: She is oriented to person, place, and time. She appears well- developed and well-nourished. No distress. HENT: Head: Normocephalic and atraumatic. Mouth/Throat: Oropharynx is clear and moist. Eyes: EOM are normal. Pupils are equal, round, and reactive to light. Neck: Normal range of motion. Neck supple. Cardiovascular: Normal rate, regular rhythm and normal heart sounds. Exam reveals no gallop and no friction rub. No murmur heard. Pulmonary/Chest: Effort normal and breath sounds normal. No respiratory distress. She has no wheezes. She has no rales. She exhibits no tenderness. Abdominal: Soft. Bowel sounds are normal. There is no tenderness. Incision site transversely to low abdomen there is a small 2 cm linear base of the wound, which is draining a cloudy yellowish liquid which is malodorous. Musculoskeletal: She exhibits no edema. Neurological: She is alert and oriented to person, place, and time. Skin: Skin is warm and dry. No rash noted. She is not diaphoretic. Psychiatric: She has a normal mood and affect. Vitals reviewed. Lab Results BACTERIAL CULTURE/SMEAR, OTHER (Preliminary result) Result time 11/19/18 17:13:32 Collection Time Result Time GRAMS GRAMS Result 11/19/18 14:15:00 11/19/18 17:13:12 Many Polys Many Mixed gram positive and gram negative organisms , intraleukocytic organisms seen PENDING COMPLETE BLOOD COUNT AND DIFFERENTIAL (Final result) Abnormal Result time 11/19/18 13:58:13 Collection Time Result Time WBC RBC Hemoglobin HCT MCV 11/19/18 13:20:00 11/19/18 13:57:53 10.87 (!) 3.66 (L) (!) 10.3 (L) (!) 31.1 (L) 85 Collection Time Result Time MCH MCHC RDW-CV RDW-SD PLT 11/19/18 13:20:00 11/19/18 13:57:53 28.1 33.1 13.5 41.9 (!) 446 (H) Collection Time Result Time MPV Neutrophils Lymphocytes Monocytes Eosinophils 11/19/18 13:20:00 11/19/18 13:57:53 (!) 8.8 (L) 66.6 25.9 4.1 2.4 Collection Time Result Time Basophils Immature Grans ABS Neutrophils ABS Lymphs ABS Monocytes 11/19/18 13:20:00 11/19/18 13:57:53 0.5 0.5 7.24 2.82 0.45 Collection Time Result Time ABS Eosinophils ABS Basophils ABS Immature Grans Type of Diff: 11/19/18 13:20:00 11/19/18 13:57:53 0.26 0.05 0.05 Automated BASIC METABOLIC PANEL (BMP) (Final result) Abnormal Result time 11/19/18 14:13:42 Collection Time Result Time Sodium Potassium Chloride CO2 BUN 11/19/18 13:20:00 11/19/18 14:13:19 139 4.3 103 28 11 Collection Time Result Time Creatinine GFR, Calculated Calcium Calculated Calcium Glucose, Serum 11/19/18 13:20:00 11/19/18 14:13:19 0.78 97 eGFR calculated using CKD-EPI equation for non Americans. Multiply eGFR by 1.16 for Americans. 9.9 10.2 (!) 105 (H) Collection Time Result Time Fasting? 11/19/18 13:20:00 11/19/18 14:13:19 Unknown RESULTS EKG orders: None Radiology orders: None Procedures ED COURSE A medical screening exam was performed. 38-year-old POD #22 from repeat LTCS and BTL at 39 weeks gestational age presenting with malodorous drainage from incision site on several days of Keflex from outside hospital. Exam as above. Patient evaluated by maternal- medicine team who obtained culture of fluid, flushed site, recommended continued Keflex, and follow-up in their clinic in 2 days. Patient expressed concern about making appointments due to lack of gas money, social work was consulted who provided her with gas card. Findings discussed with patient, who expresses understanding and agreement with this plan. At this time, vital signs are normal and reassuring, patient is afebrile, nontoxic in appearance, appears well-hydrated, comfortable, stable, and appears safe for discharge home. Final diagnoses: Wound drainage Supervision of high risk , antepartum Depression affecting DISPOSITION: Discharged The patient's pain was managed to an adequate level weighing risk vs. benefit of further medications. Upon departure from the Emergency Department, the patient's pain was 6 on a zero to ten scale. Any further pain treatment will be at the discretion of the provider following up with the patient based on their clinical assessment. Condition at departure from the Emergency Department: Stable PCP: Emily Murrell was available for supervision. 11/19/2018 19:28 No flowsheet data found. documented in this encounter Plan of Treatment Scheduled Referrals Name Type Priority Associated Diagnoses Orde r Schedule AMB CONS/FOLLOW UP [facility]ITY [facility] TEAM Outpatient Referral Routine Supervision of high risk , antepartum Depression affecting Ordered: 11/19/2018 documented as of this encounter Procedures Procedure Name Priority Date/Time Associated Diagnosis Comments BACTERIAL CULTURE/SMEAR Routine 11/19/2018 14:15 EST COMPLETE BLOOD COUNT AND DIFFERENTIAL STAT 11/19/2018 13:20 EST BASIC METABOLIC PANEL (BMP) STAT 11/19/2018 13:20 EST documented in this encounter Results * BACTERIAL CULTURE/SMEAR, OTHER (11/19/2018 14:15 EST) Gram Smear Result Many Polys 11/27/2018 8:26 [facility] Gram Smear Result Many Mixed gram positive and gram negative organisms , intraleukocytic organisms seen 11/27/2018 8:26 [facility] Gram Smear Result Results reviewed by supervisory staff 11/27/2018 8:26 [facility] Result Few Usual skin aide 11/21/2018 10:16 [facility] Specimen of unknown material (specimen) SPECIMEN FROM WOUND / Unknown 11/19/2018 14:15 EST 11/19/2018 15:36 EST Comment:Specimen submitted o n a flocked swab. Ary Dyson PA-C MICROBIOLOGY - GENERAL ORDERABLES [facility] [address] [place] [address] * (ABNORMAL) BASIC METABOLIC PANEL (BMP) (11/19/2018 13:20 EST) Sodium 139 136 - 145 mEq/L 11/19/2018 14:13 [facility] Potassium 4.3 3.5 - 5.0 mEq/L 11/19/2018 14:13 [facility] Chloride 103 96 - 110 mEq/L 11/19/2018 14:13 [facility] CO2 28 22 - 32 mEq/L 11/19/2018 14:13 [facility] BUN 11 10 - 26 mg/dl 11/19/2018 14:13 [facility] Creatinine 0.78 0.52 - 1.04 mg/dl 11/19/2018 14:13 [facility] GFR, Calculated 97 >60 ml/min/1.7 3m2 11/19/2018 14:13 [facility] Comment: eGFR calculated using CKD-EPI equation for non Americans. Multiply eGFR by 1.16 for Americans. Calcium 9.9 8.5 - 10.5 mg/dl 11/19/2018 14:13 [facility] Calculated Calcium 10.2 8.5 - 10.5 mg/dl 11/19/2018 14:13 [facility] Glucose, Serum 105(H) 70 - 100 mg/dl 11/19/2018 14:13 [facility] Fasting? Unknown 11/19/2018 13:47 [facility] Blood specimen (specimen) BLOOD SPECIMEN / Unknown 11/19/2018 13:20 EST 11/19/2018 13:46 EST Ary Dyson PA-C CHEMISTRY & BLO OD GAS ORDERABLES [facility] [address] [place] [address] * (ABNORMAL) COMPLETE BLOOD COUNT AND DIFFERENTIAL (11/19/2018 13:20 EST) WBC 10.87 4.0 - 12.4 K/cmm 11/19/2018 13:57 [facility] RBC 3.66(L) 3.86 - 5.04 M/cmm 11/19/2018 13:57 [facility] Hemoglobin 10.3(L) 11.6 - 15.2 gm/dl 11/19/2018 13:57 [facility] HCT 31.1(L) 34.9 - 44.4 % 11/19/2018 13:57 [facility] MCV 85 81 - 98 fl 11/19/2018 13:57 [facility] MCH 28.1 26.7 - 33.3 pg 11/19/2018 13:57 [facility] MCHC 33.1 32.1 - 35.9 gm/dl 11/19/2018 13:57 [facility] RDW-CV 13.5 <14.7 % 11/19/2018 13:57 [facility] RDW-SD 41.9 <50.4 fl 11/19/2018 13:57 [facility] PLT 446(H) 141 - 377 K/cmm 11/19/2018 13:57 [facility] MPV 8.8(L) 9.5 - 12.7 fl 11/19/2018 13:57 [facility] % Neutrophils 66.6 % 11/19/2018 13:57 [facility] % Lymphocytes 25.9 % 11/19/2018 13:57 [facility] % Monocytes 4.1 % 11/19/2018 13:57 [facility] % Eosinophils 2.4 % 11/19/2018 13:57 [facility] % Basophils 0.5 % 11/19/2018 13:57 [facility] % Immature Grans 0.5 % 11/19/2018 13:57 [facility] ABS Neutrophils 7.24 2.20 - 8.85 K/cmm 11/19/2018 13:57 [facility] ABS Lymphs 2.82 1.09 - 3.30 K/cmm 11/19/2018 13:57 [facility] ABS Monocytes 0.45 0.1 - 0.8 K/cmm 11/19/2018 13:57 EST [facility] ABS Eosinophils 0.26 0.03 - 0.61 K/cmm 11/19/2018 13:57 EST [facility] ABS Basophils 0.05 0.01 - 0.11 K/cmm 11/19/2018 13:57 EST [facility] ABS Immature Grans 0.05 0 - 0.06 K/cmm 11/19/2018 13:57 EST [facility] Type of Diff: Automated 11/19/2018 13:57 EST [facility] Blood specimen (specimen) BLOOD SPECIMEN / Unknown 11/19/2018 13:20 EST 11/19/2018 13:46 EST Ary Dyson PA-C PACKAGES & DNA PROBE ORDERABLES Performing Organization Address City/State/[facility] Co de Phone Number [facility] [address] [place] [address] documented in this encounter Visit Diagnoses Diagnosis Supervision of high risk , antepartum- Primary Wound drainage Open wound(s) (multiple) of unspecified site(s), without mention of complication Supervision of high risk , antepartum Depression affecting Wound infection after surgery Other postoperative infection documented in this encounter Administered Medications Inactive Administered Medications - up to 3 most recent administrations Medication Order MAR Action Action Date Dose Rate Site lactated ringers BOLUS 1,000 mL 1,000 mL, intravenous, NOW X1, 1 dose, On Sat11/19/18 at 1330, STAT New Bag 11/19/2018 13:37 EST 1,000 mL IV documented in this encounter Active and Recently Administered Medications Times are shown in EST. Scheduled Medication Order 11/17/2018 11/18/2018 11/19/2018 lactated ringers BOLUS 1,000 mL (COMPLETED) 1,000 mL, intravenous, NOW X1, 1 dose, On Sat11/19/18 at 1330, STAT 1337 (New Bag - Prov ider: Chaz Paulino)1424 (Completed - Provider: Zamzam Rodriguez RN) documented in this encounter Orders Medications Ordered That Sheng ht Not Have Been Administered Count Last Ordered Date First Ordered Date lactated ringers BOLUS 1,000 mL 1 8 Nursing Count Last Ordered Date First Orde red Date INSERT PERIPHERAL IV 1 11/19/2018 documented in this encounter Care Teams Boiler Fireman Relationship Specialty Start Date End Date Emily Bejarano APRN [address] [place] [address] PCP - General 04/30/18 04/25/22 documented as of this encounter
--- OUTSIDE RECORDS SUMMARY | 2024-07-02 18:53 | XMS_ITS | Encounter Summary ---
Author Organization [facility] Address [address] [place] [address] Care Team Providers Care Home Coordinator Name Role Phone DarciEmily diaz Lena AWAD Primary Care Provider Perla Zamorano NP Primary Care Provider Reason for Visit * Reason Comments Other Encounter Details Date Type Department Care Team (Late st Contact Info) Description 03/28/2019 [facility] Obstetrics & Midwifery - [facility] [address] [place], [place] [id number] Willy Mccullough MD [address] [facility], [address] [place] [address] Other Social History Tobacco Use Types Packs/Day Years [...] on filedocumented in this encounter Care Teams Home Coordinator Relationship Specialty Start Date End Date Emily Bejarano APRN [address] [place] [address] PCP - General 04/30/18 04/25/22 Perla Zamorano NP [address] [address] PCP - General 04/26/22 documented as of this encounter
--- OUTSIDE RECORDS SUMMARY | 2024-07-02 18:53 | XMS_ITS | Encounter Summary ---
Author Organization [facility] Address [address] [place] [address] Care Team Providers Care Seedling Sorter Name Role Phone Emily Bejarano Lena AWAD Primary Care Provider Reason for Visit * Reason Comments Facial Droop Facial droop started at 10:30, Hx of migraines, and had a severe TORRES this morning with facial droop to follow, -FAST in triage Encounter Details Date Type Department Care Team (Late st Contact Info) Description 04/11/2019 16:28 EDT - 04/11/2019 18:03 EDT Emergency [facility] Emergency Department - [address] [id number] Brad Augustin MD [address] [place] [address], [address] [place] [address] Emergency, MD Madina Trapezius strain, left, initial encounter (Primary Dx); Acute left-sided back pain, unspecified back location Discharge Disposition: Home or Self Care Social [...] Sign Reading Time Taken Comments Blood Pressure 120/50 04/11/2019 1748 EDT Pulse 74 04/11/2019 1748 EDT Temperature 36.4 ??C (97.5 ??F) 04/11/2019 1633 EDT Respiratory Rate 16 04/11/2019 1748 EDT Oxygen Saturation 98% 04/11/2019 1748 EDT Inhaled Oxygen Concentration - - Weight [...] as of this encounter Discharge Diagnoses Diagnosis S46.812A Strain of other muscles, fascia and tendons at shoulder and upper arm level, left arm, initial encounter-S46.812A[ICD-10-CM] M54.9 Dorsalgia, unspecified-M54.9[ICD-10-CM] R29.810 Facial weakness-R29.810[ICD-10-CM] R20.2 Paresthesia of skin-R20.2[ICD-10-CM] M54.2 Cervicalgia-M54.2[ICD-10-CM] R51 Headache-R51[ICD-10-CM] M25.512 Pain in left shoulder-M25.512[ICD-10-CM] X58.XXXA Exposure to other specified factors, initial encounter-X58.XXXA[ICD-10-CM] E66.9 Obesity, unspecified-E66.9[ICD-10-CM] F17.210 Nicotine dependence, cigarettes, uncomplicated-F17.210[ICD-10-CM] E11.9 Type 2 diabetes mellitus without complications-E11.9[ICD-10-CM] J45.909 Unspecified asthma, uncomplicated-J45.909[ICD-10-CM] Z88.5 Allergy status to narcotic agent status-Z88.5[ICD-10-CM] documented in this encounter Discharge Instructions * Discharge Instructions* Demetria Grant, Brad Martin IV, MD - 04/11/2019 17:24 EDT - Use heat to the affected area. For increased mobility with heating, try the adhesives that provide heat. They are available at pharmacies over the counter. - Avoid heavy lifting, particularly with picking up heavier objects away from and in front of your body - Use a regular anti-inflammatory medication for the next week. Naproxen was provided today. - Follow up with your primary care provider to discuss further management - Continue your current medications, including the gabapentin, that your primary care provider prescribed * Attachments The following attachments cannot be sent through Care Everywhere. * BACK PAIN (WOLOF) documented in this encounter Medications at Time [...] Discharge Disposition Disposition Code Departure Means Destination Comment s Home or Self Care Car Pt left ED AMBULATORY documented in this encounter ED Notes * Alisha Streeter, ARVIND - 04/11/2019 1737 EDT 2 [employer] heat packs applied to pt lower back and L. Shoulder * Norah Fermin RN - 04/11/2019 1651 EDT at bedside. * Demetria Grant, Brad Martin IV, MD - 04/11/2019 1639 EDT DOS: 04/11/2019 Chief Complaint Patient presents with ??? Facial Droop Facial droop started at 10:30, Hx of migraines, and had a severe TORRES this morning with facial droop to follow, -FAST in triage HPI I, Georgina Dewitt, am scribing for Brad Augustin IV,* while he/she is personally performing the service. Georgina Esdras 04/11/2019 16:40 Yesenia Fragoso is a 38 y.o. female with a history of degenerative disc disease, migraines, chronic pain, depression, anxiety, hypothyroidism, diabetes mellitus II who presents to the ED with left sided, constant, shooting back pain for five days, as well as one day of subjective left sided facial droop. The patient's back pain radiates down her left leg into her foot. The patient started experiencing left sided shoulder pain with radiation into her face yesterday. The patient woke up with a headache and continued left sided pain this morning which made it difficult for her to get out of bed. The patient took a shower once she got up. She then started experiencing tingling along her entire left side, including her upper and lower left extremities as well as her shoulders and the left side ofher face. The patient states that she felt a drooping feeling along the left side of her face but did not notice an obvious facial droop when she looked in the mirror today. The patient no longer hasa headache. The patient recently saw her PCP who thought that her pain may be related to a pinched sciatic nerve. PCP told the patient to continue going to physical therapy to manage her symptoms. The patient also has a lump on her left wrist which has been more tender since giving to her most recent child. The patient states that her PCP is not concerned. The patient denies any new injuries. She shares that her pain seems to have started after carrying boxes into her house. The patient is right handed. Patient denies fever. Patient denies recent antibiotics use, dental work, or IV druguse. Patient is a current every day tobacco smoker. The history is provided by the patient and medical records. Review of Systems Review of Systems Constitutional: Negative for fever. Musculoskeletal: Positive for arthralgias, back pain, myalgias and neck pain. Skin: Lump on left hand Neurological: Positive for facial asymmetry, numbness and headaches. Tingling All other systems reviewed and are negative. The patient's past medical, family and social history was reviewed and updated as needed. Allergies Allergen Reactions ??? Dilaudid [Hydromorphone] itching ??? Morphine Hives Vital Signs Temp: 36.4 ??C (97.5 ??F) Temp src: Temporal Heart Rate: 89 BPM Resp: 16 SpO2: 100 % BP: (!) 148/77 BP Device: BP Machine Patient Position: Sitting BP Cuff Location: Right arm Physical Exam Constitutional: She is oriented to person, place, and time. She appears well- developed. No distress. Obese HENT: Head: Normocephalic and atraumatic. Eyes: Conjunctivae and EOM are normal. Pupils are equal, round, and reactive to light. No scleral icterus. Neck: Normal range of motion. Neck supple. Cardiovascular: Intact distal pulses. Pulmonary/Chest: Effort normal. No respiratory distress. Musculoskeletal: Normal range of motion. She exhibits tenderness. tenderness to palpation along the trapezius muscle no swelling intact neurovascularly of the distal LUE Neurological: She is alert and oriented to person, place, and time. No cranial nerve deficit. no facial droop cranial nerves 2-12 intact Skin: Skin is warm and dry. No rash noted. She is not diaphoretic. No erythema. No pallor. Psychiatric: She has a normal mood and affect. Her behavior is normal. Nursing note and vitals reviewed. RESULTS EKG orders: None Radiology orders: None Procedures ED COURSE A medical screening exam was performed. The patient is a 38 y.o. female with with recurring headaches and chronic pain presenting with 3 days of left sided neck and shoulder pain with radicular symptoms. Patient is atraumatic with no fever, recent dental work, or IVDA history with reproducible pain in the trapezius muscle with active andpassive ROM in shoulder and direct palpation. No rash. Conservative management, heat, anti-inflammatories, and continance of her medications were recommended. Physical exam was significant for normal neurological and occular exams, no facial droop, cranial nerves 2-12 intact, no erythema, tenderness to palpation along the trapezius muscle, no swelling, intact neurovascularly of the distal LUE, obese. 1719: The patient was given 500 mg PO naproxen. The patient was discharged to home. Prior to discharge usual and customary precautions were reviewed with the patient and/or family including follow-up instructions and reasons to return to the Emergency Department if condition worsens, does not improve as expected, or other new concerns arise. Final diagnoses: Trapezius strain, left, initial encounter Acute left-sided back pain, unspecified back location DISPOSITION: Discharged The patient's pain was managed [...] Condition at departure from the Emergency Department: Good PCP: Emily JUNE This documentation is recorded by Georgina Dewitt acting as Scribe under the direction and presence ofBrad Augustin IV,*. Brad Augustin IV,*: I personally performed the services recorded by the scribe in my presence. I confirm the scribe's documentation has been reviewed by me to accurately and completely record my work, treatment, procedures, and medical decision making. 04/11/2019 17:22 No flowsheet data found. documented in this encounter Plan of Treatment Not on file documented as of this encounter Visit Diagnoses Diagnosis Trapezius strain, left, initial encounter- Primary Acute left-sided back pain, unspecified back location documented in this encounter Administered Medications Inactive Administered Medications - up to 3 most recent administrations Medication Order MAR Action Action Date Dose Rate Site naproxen (NAPROSYN) tablet 500 mg 500 mg, oral, NOW X1, 1 dose, On 04/11/19 at 1730, STAT Given 04/11/2019 17:37 EDT 500 mg documented in this encounter Active and Recently Administered Medications Times are shown in EDT. Scheduled Medication Order 04/09/2019 04/10/2019 04/11/2019 naproxen (NAPROSYN) tablet 500 mg (COMPLETED) 500 mg, oral, NOW X1, 1 dose, On 04/11/19 at 1730, STAT 1737 (Given - Provid er: Alisha Streeter RN) documented in this encounter Orders Medications Ordered That Sheng ht Not Have Been Administered Count Last Ordered Date First Ordered Date naproxen (NAPROSYN) tablet 500 mg 1 019 Nursing Count Last Ordered Date First Orde red Date APPLY HEAT TO AFFECTED AREA 1 04/11/2019 documented in this encounter Care Teams Seedling Sorter Relationship Specialty Start Date End Date Emily Bejarano APRN [address] [place] [phone] PCP - General 04/30/18 04/25/22 documented as of this encounter
--- OUTSIDE RECORDS SUMMARY | 2024-07-02 18:53 | XMS_ITS | Encounter Summary ---
Author Organization [facility] Address [address] [place] [address] Care Team Providers Care Resource Manager Forester Name Role Phone Emily Bejarano DELMI Primary Care Provider [phone] Reason for Visit * Reason Onset Date Comments Appointment Related 11/20/2018 Encounter Details Date Type Department Care Team (Late st Contact Info) Description 11/20/2018 Telephone [facility]'s Services - [address] [address] Yesenia Zhao MD [address] [place] [address] Appointment Related Social History Tobacco Use Types [...] * Telephone Encounter - Janie Berkowitz - 11/20/2018 0956 EST Spoke with patient in regards to her [address] Zhao tomorrow 11/21. Also let her know that her gas card would be upfront at the main desk. documented in this encounter Plan of Treatment Not on file documented as of this encounter Visit Diagnoses Not on filedocumented in this encounter Care Teams Resource Manager Forester Relationship Specialty Start Date End Date Emily Bejarano APRN [address] [place] [place] [phone] PCP - General 04/30/18 04/25/22 documented as of this encounter
--- OUTSIDE RECORDS SUMMARY | 2024-07-02 18:53 | XMS_ITS | Encounter Summary ---
Author Organization [facility] Address [address] [place] [address] Care Team Providers Care Test Architect Name Role Phone Emily Bejarano Lena AWAD Primary Care Provider [phone] Reason for Visit * Reason Onset Date Comments Results 12/07/2019 Encounter Details Date Type Department Care Team (Late st Contact Info) Description 12/07/2019 Telephone [facility] Women's Services - [address] [id number] Luli Dejesus MD [address] [facility] [address] [place] [address] Results Social History Tobacco Use [...] Telephone Encounter - Luli Dejesus MD - 12/07/2019 8493 EST Patient called with results and recommendations. Patient [...] she does not want to have a frontload driver. I will arrange for her to get this scheduled in the office with me in the next month or so. I also am going to have a LEEP pamphlet mailed to her and put her in the [employer] system. documented in this encounter Plan of Treatment Not on file documented as of this encounter Visit Diagnoses Not on filedocumented in this encounter Care Teams Test Architect Relationship Specialty Start Date End Date Emily Bejarano APRN [address] [place] [address] PCP - General 04/30/18 04/25/22 documented as of this encounter
--- OUTSIDE RECORDS SUMMARY | 2024-07-02 18:53 | XMS_ITS | Encounter Summary ---
Author Organization [facility] Address [address] [place] [address] Care Team Providers Care Special Ed Assistant Name Role Phone Emily Bejarano DELMI Primary Care Provider [phone] Reason for Visit * Reason Onset Date Comments Appointment Related 11/20/2018 Encounter Details Date Type Department Care Team (Late st Contact Info) Description 11/20/2018 Telephone [facility] Women's Services - [address] [address] Yesenia Zhao MD [address] [place] [address] Appointment Related Social History [...] Telephone Encounter - Janie Berkowitz - 11/20/2018 0846 EST LVM for patient to aware her that she is scheduled with Dr. Zhao tomorrow, 11/21 @ 10 for a Wound Check. Instructed the patient to call us back if that doesn't work with her schedule. Also emailed Linda Muniz about gas card. documented in this encounter Plan of Treatment Not on file documented as of this encounter Visit Diagnoses Not on filedocumented in this encounter Care Teams Special Ed Assistant Relationship Specialty Start Date End Date Emily Bejarano APRN [address] [place] [place] [phone] PCP - General 04/30/18 04/25/22 documented as of this encounter
--- OUTSIDE RECORDS SUMMARY | 2024-07-02 18:53 | XMS_ITS | Encounter Summary ---
Author Organization [facility] Address [address] [place] [address] Care Team Providers Care Driver Recruiter Name Role Phone Emily Bejarano Lena AWAD Primary Care Provider [phone] Reason for Visit * Reason Onset Date Comments Appointment Related 10/09/2019 Encounter Details Date Type Department Care Team (Late st Contact Info) Description 10/09/2019 Telephone [facility] Pelvic Medicine and Reconstructive Surgery - Medical Office [facility] [address] [place] [id number] [address] RN Appointment Related Social History Tobacco Use Types [...] encounter Miscellaneous Notes * Telephone Encounter - Mckayla Lin RN - 10/09/[address] Roy pt has been referred to [facility] for colposcopy due to an abnormal PAP smear. She was notified about this at [facility] on 09/15/19 and [facility] has not been able to get in touch with pt to schedule thecolposcopy. Call to pt and she reports that she has scheduled this appointment for 11/11/19. documented in this encounter Plan of Treatment Not on file documented as of this encounter Visit Diagnoses Not on filedocumented in this encounter Care Teams Driver Recruiter Relationship Specialty Start Date End Date Emily Bejarano APRN [address] [place] [phone] PCP - General 04/30/18 04/25/22 documented as of this encounter
--- OUTSIDE RECORDS SUMMARY | 2024-07-02 18:53 | XMS_ITS | Encounter Summary ---
Author Organization [facility] Address [address] [place] [address] Care Team Providers Care Sample Patternmaker Name Role Phone Emily Bejarano Lena AWAD Primary Care Provider Reason for Visit * Reason Comments Routine Visit Encounter Details Date Type Department Care Team (Late st Contact Info) Description 10/14/2018 13:15 EST Routine [facility] Obstetrics & Midwifery - [facility] [address] [place], [place] [id number] Loli Chun MD [address] [facility], [address] [place] [address] GA: 37w0d Discharge Disposition: Auto Discharge Social History Tobacco [...] Sign Reading Time Taken Comments Blood Pressure 110/62 10/14/2018 1301 EST Pulse - - Temperature - - Respiratory Rate - - Oxygen Saturation - - Inhaled Oxygen Concentration - - Weight 141.3 kg (311 lb 6.4 oz) 10/14/2018 1301 EST Height 180.3 cm (5' 10.98) 10/14/2018 1301 EST Body Mass Index 43.45 10/14/2018 1301 EST documented in this encounter Discharge Diagnoses Diagnosis O09.93 Supervision of high risk , unspecified, third trimester-O09.93[ICD-10-CM] documented in this encounter Discharge Disposition Disposition Code Departure Means Destination Auto Discharge documented in this encounter Progress Notes * Willy Contreras MD - 10/14/2018 1315 EST [facility] Clinic Note Yesenia Fragoso is a 37 y.o. at 37w0d gestation presenting for routine antepartum visit S: Patient reports feeling well with no specific complaints. Denies abdominal/pelvic pain, uterine contractions, vaginal bleeding and leakage of fluid. Reports normal movements. Endorses increasing swelling of ankles bilaterally without calf swelling/tenderness. Denies associated headache, visual disturbance, RUQ/epigastric pain, atypical or rapidly progressive edema and nausea/vomiting. ROS otherwise negative. O: Vitals: BP: 110/62 Height: 180.3 cm (70.98) Weight : (!) 141.3 kg (311 lb 6.4 oz) BMI: 43.542 Heart Rate: US Movement: Present Presentation: Breech A/P: 37 y.o. with T2DM and poor complicance at 37w0d gestation (dated by 7w2d ultrasound) Supervision of high risk , antepartum Up to date with routine care although notably missed multiple visits. s/p flu and tdap vaccines. Second trimester CBC drawn at 36 weeks: Hct 39.1. - GBS sent today History of delivery, antepartum Desires rLTCS+BTL. Declines TOLAC even if presents in labor. Tubal papers signed in 07/2018. - CS scheduled for 39+0 (10/28/18) Breech presentation of fetus Oblique breech at 37w0d. ECV not offered as patient declining TOLAC. - Proceed with rLTCS as planned Type 2 diabetes mellitus affecting in second trimester, antepartum Ordered for metformin 500mg qd. Poorly compliant with medication and FS monitoring. States fastingshave been up to 123 and 2h post-dinner [...] to no show MD visit next week\ RTC in 1 week (scheduled but anticipate no show) Patient seen together with Dr Adiel Contreras MD Direct Sales Professional Resident I saw and discussed the patient with the resident at the time of visit. I agree with the above assessment and plan of care. Loli Chun MD documented in this encounter Miscellaneous Notes * Assessment & Plan Note - Willy Contreras MD - 10/14/2018 1344 ESTAssociated Problem(s): Type 2 diabetes mellitus affecting in second trimester, antepartum Ordered for metformin 500mg qd. Poorly compliant with medication and FS monitoring. States fastingshave been up to 123 and 2h post-dinner [...] to no show MD visit next week\ * Assessment & Plan Note - Willy Contreras MD - 10/14/2018 1341 ESTAssociated Problem(s): Breech presentation of fetus Oblique breech at 37w0d. ECV not offered as patient declining TOLAC. - Proceed with rLTCS as planned * Assessment & Plan Note - Willy Contreras MD - 10/14/2018 6087 ESTAssociated Problem(s): History of delivery, antepartum Desires rLTCS+BTL. Declines TOLAC even if presents in labor. Tubal papers signed in 07/2018. - CS scheduled for 39+0 (10/28/18) * Assessment & Plan Note - Willy Contreras MD - 10/14/2018 1345 ESTAssociated Problem(s): Supervision of high risk , antepartum Up to date with routine care although notably missed multiple visits. s/p flu and tdap vaccines. Second trimester CBC drawn at 36 weeks: Hct 39.1. - GBS sent today documented in this encounter Plan of Treatment Not on file documented as of this encounter Procedures Procedure Name Priority Date/Time Associated Diagnosis Comments GROUP B STREP PCR Routine 10/14/2018 13: 24 EST Supervision of high risk , antepartum, third trimester documented in this encounter Results * GROUP B STREP PCR (10/14/2018 13:24 EST) GROUP B STREP PCR Negative 10/15/2018 14:05 EST [facility] Specimen of unknown material (specimen) TOPOGRAPHY UNKNOWN / Unknown 10/14/2018 13:24 EST 10/14/2018 14:08 EST Loli Chun MD MICROBIOLOGY - GENERAL ORDERABLES [facility] [address] [place] [address] documented in this encounter Visit Diagnoses Diagnosis Supervision of high risk , antepartum, third trimester- Primary documented in this encounter Care Teams Sample Patternmaker Relationship Specialty Start Date End Date Emily Bejarano APRN [address] [place] [address] PCP - General 04/30/18 04/25/22 documented as of this encounter
--- OUTSIDE RECORDS SUMMARY | 2024-07-02 18:53 | XMS_ITS | Encounter Summary ---
Author Organization [facility] Address [address] [place] [address] Care Team Providers Care Asset Protection Lead Name Role Phone Emily Bejarano DELMI Primary Care Provider [phone] Encounter Details Date Type Department Care Team (Late st Contact Info) Description 09/15/2019 14:22 EDT - 09/15/2019 23:59 EDT Hospital Encounter [facility] [address] [place] [address] Sonya Roy MD MPH [address] [facility] Medical Office Building, [address] [place] [address] Discharge Disposition: Auto Discharge Social History Tobacco [...] as of this encounter Discharge Diagnoses Diagnosis N92.6 Irregular menstruation, unspecified-N92.6[ICD-10-CM] documented in this encounter Medications at Time [...] times daily. 60 Cap 5 10/30/2018 04/25/2020 FLUoxetine (PROZAC) 20 mg/5 mL (4 mg/mL) solution Take 20 mg by mouth daily. 04/25/2020 fluticasone-salmeter ol (ADVAIR) 250-50 mcg/dose diskus [...] Disposition Code Departure Means Destination Auto Discharge Home documented in this encounter Plan of Treatment Not on file documented as of this encounter Visit Diagnoses Not on filedocumented in this encounter Care Teams Asset Protection Lead Relationship Specialty Start Date End Date Emily Bejarano APRN [address] [place] [phone] PCP - General 04/30/18 04/25/22 documented as of this encounter
--- OUTSIDE RECORDS SUMMARY | 2024-07-02 18:54 | XMS_ITS | Encounter Summary ---
Author Organization [facility] Address [address] [place] [address] Care Team Providers Care Competitive Shopper Name Role Phone Emily Bejarano APRN Primary Care Provider Encounter Details Date Type Department Care Team (Late st Contact Info) Description 08/07/2018 Orders Only [facility] Obstetrics & Midwifery - [facility] [address] [place], [place] [phone] Willy Mccullough MD [address] [place] [address], [address] [place] [address] Supervision of high risk , antepartum (Primary Dx) Social History Tobacco Use Types [...] as of this encounter Visit Diagnoses Diagnosis Supervision of high risk , antepartum- Primary documented in this encounter Care Teams Competitive Shopper Relationship Specialty Start Date End Date Emily Bejarano APRN [address] [place] [address] PCP - General 04/30/18 04/25/22 documented as of this encounter
--- OUTSIDE RECORDS SUMMARY | 2024-07-02 18:54 | XMS_ITS | Encounter Summary ---
Author Organization [facility] Address [address] [place] [address] Care Team Providers Care Rater Associate Name Role Phone None, Provider Primary Care Provider Unavailabl e Reason for Visit * Reason Onset Date Comments Appointment Related 04/02/2018 Encounter Details Date Type Department Care Team (Late st Contact Info) Description 04/02/2018 Telephone [facility] - [address] [id number] Ioana Kumar Appointment Related Social History Tobacco Use Types Packs/Day Years Used Date Smoking Tobacco: Every Day Cigarettes Comments:smoking 5 per day Alcohol Use Standard Drinks/Week Comments No 0 (1 standard drink = 0.6 oz pur e alcohol) Comments Yes Sex and Gender Information Value Date Recorded Sex Assigned at Female 05/03/2022 19:33 EDT Gender Identity Female 05/02/2020 15:51 EDT Sexual Orientation Straight 05/03/2022 19 :33 EDT documented as of this encounter Miscellaneous Notes * Telephone Encounter - Ioana Kumar - 04/02/2018 [id number] EDT Informed providers office of appointment scheduled for patient 04/17 @ 11:15 documented in this encounter Plan of Treatment Not on file documented as of this encounter Visit Diagnoses Not on filedocumented in this encounter Care Teams Rater Associate Relationship Specialty Start Date End Date None, Provider PCP - General 08/29/17 04/29/18 documented as of this encounter
--- OUTSIDE RECORDS SUMMARY | 2024-07-02 18:54 | XMS_ITS | Encounter Summary ---
Author Organization [facility] Address [address] [place] [address] Care Team Providers Care Turkey Picker Name Role Phone Emily Bejarano DELMI Primary Care Provider Reason for Referral * Cardiology (Other (Specify in Question)) - New Request Specialty Diagnoses / Procedures Referred By Luiza t Referred To Contact Diagnoses Type 2 diabetes mellitus affecting in second trimester, antepartum Diabetes mellitus affecting in second trimester Procedures [facility] ECHOCARDIOGRAM (PEDI CARD) Willy Mccullough MD [address] [place] [id number] Referral ID Status Reason Start Date Expiration Date V isits Requested Visits Authorized [id number] New Request 05/22/2018 1 1 * STOREROOM CLERK (Routine) - New Request Specialty Diagnoses / Procedures [facility] Referred To Contact Diagnoses Diabetes mellitus affecting in second trimester Type 2 diabetes mellitus affecting in second trimester, antepartum Procedures [facility] DETAILED Willy Mccullough MD [address] [id number] Referral ID Status Reason Start Date Expiration Date V isits Requested Visits Authorized [id number] New Request 05/22/2018 1 1 Reason for Visit * Reason Comments Initial Visit Encounter Details Date Type Department Care Team (Late st Contact Info) Description 05/22/2018 15:[address] [facility] Obstetrics & Midwifery - [address] [id number] Willy Mccullough MD [address] [place] [address], [address] [place] [address] GA: 16w2d Discharge Disposition: Auto Discharge Social History Tobacco [...] Sign Reading Time Taken Comments Blood Pressure 128/76 05/22/2018 1538 EDT Pulse - - Temperature - - Respiratory Rate - - Oxygen Saturation - - Inhaled Oxygen Concentration - - Weight 140.9 kg (310 lb 9.6 oz) 05/22/2018 1538 EDT Height 180.3 cm (5' 10.98) 05/22/2018 1538 EDT Body Mass Index 43.34 05/22/2018 1538 EDT documented in this encounter Discharge Diagnoses Diagnosis O09.90 Supervision of high risk , unspecified, unspecified trimester-O09.90[ICD-10-CM] O99.282 Endocrine, nutritional and metabolic diseases complicating , second trimester-O99.282[ICD-10-CM] O24.912 Unspecified diabetes mellitus in , second trimester-O24.912[ICD-10-CM] O24.112 Pre-existing type 2 diabetes, in , second trimester-O24.112[ICD-10-CM] O99.331 Smoking (tobacco) complicating , first trimester-O99.331[ICD-10-CM] O99.212 Obesity complicating , second trimester-O99.212[ICD-10-CM] O34.219 Maternal care for unsp type scar from previous del-O34.219[ICD-10-CM] documented in this encounter Ordered Prescriptions Prescription Sig Dispensed Refills Start Date End Da te aspirin 81 mg EC tabletIndications:Diabetes mellitus affecting in second trimester,Type 2 diabetes mellitus affecting in second trimester, antepartum Take 2 Tabs by mouth daily for 90 days. 180 Tab 2 05/22/2018 08/20/2018 documented in this encounter Discharge Disposition Disposition Code Departure Means Destination Auto Discharge documented in this encounter Progress Notes * Willy Mccullough MD - 05/22/2018 1515 EDT Supervision of high risk , antepartum MFM attending S: She is doing okay with complaints of abdominal discomfort. She says she has irregular abdominal crampiness but no specific timing. She denies LOF or bleeding. 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 She says she is tired after dragging him to appointments and herself. She wants to get back to work but just can't manage. O: see vitals She declined a heart beat or abdominal exam today. A: IUP at 16w3d with Type 2 diabetes and other diagnoses, transferring care. P: MSAFP today RTC 2 weeks Type 2 diabetes mellitus affecting in second trimester, antepartum See [place]ception [place] [address] and echo. Discussed need for weekly testing at 32 weeks' Type 2 diabetes mellitus, without long-term current use of insulin ([facility]) Pre-Conception medical problem note S: She notes her diabetes is difficult to manage due to her schedule and time. She says she is currently taking metformin 500 mg daily and is good about taking it as she should, but she also made a comment that sometimes she must take an extra metformin after eating some particularly blood sugar stimulating meal. Her blood sugar logs are sparse, as she says she cannot always remember to do them. She presented the following Fasting: one value of 92 Post-breakfast: one value of 106 Pre-lunch: one value of 86 Post-dinner: 1/3 values < 120, range 99-175 A: Type 2 diabetes on Metformin with highly questionable control P: I have asked her to be more regimented in her blood sugars so we can see what the metformin is really doing. She stated she will try but it will be difficult. I discussed 1 hr postprandial vs. 2 hr postprandials, but she doesn't think one is better than the other. I asked her to try to do 2 hr postprandials then. I discussed the likelihood that she will need to go on insulin at some point, chelsey is okay with that, but again I can't make a decision without better data. She will be seeing a engineering department chair and hopes that will remind her about dietary management. I have asked her to send in her sugars weekly, and we will reassess control in 2 weeks. I spent spent 25-minutes of my 25-minute session relating to pre- medical issues counseling her on diabetes and thyroid management. Acquired hypothyroidism S: She says that she not having palpitations or temperature intolerance. She does complain of fatigue. O: see vitals Last TSH at [facility] was 0.29 on 03/27/2018 A: Prior lab work suggests over-replacement, which is not consistent with fatigue (eg, she is not hypothyroid). P: Repeat TSH. I am not going to cut her dose based on value from early March as replacement requirement is likely increasing in . We will make changes based on repeat TSH. I spent spent 25-minutes of my 25-minute session relating to pre- medical issues counseling her on diabetes and thyroid management. Maternal morbid obesity, antepartum, second trimester ([facility]) I discussed increased risk of defects based on her BMI (and DM). [id number] scheduled History of delivery, antepartum She desires a repeat . Hypothyroidism affecting , antepartum See pre-conception problem note. We are repeating TSH today Anxiety disorder affecting , antepartum She reports she is not on medications but is in counseling and has a new counselor. NOTE: today's visit includes both a visit (initial) and separately identifiable time spenton medical management pre-conception medical diagnoses. 25-minutes were spent on the latter, with the entire 25-minutes spent counseling. Willy Mccullough MD 05/23/2018 10:26 documented in this encounter Miscellaneous Notes * Assessment & Plan Note - Willy Mccullough MD - 05/23/2018 0920 EDTAssociated Problem(s): Anxiety disorder affecting , antepartum She reports she is not on medications but is in counseling and has a new counselor. * Assessment & Plan Note - Willy Mccullough MD - 05/23/2018 0920 EDTAssociated Problem(s): Hypothyroidism affecting , antepartum See pre-conception problem note. We are repeating TSH today * Assessment & Plan Note - Willy Mccullough MD - 05/23/2018 0919 EDTAssociated Problem(s): History of delivery, antepartum She desires a repeat . * Assessment & Plan Note - Willy Mccullough MD - 05/23/2018 0919 EDTAssociated Problem(s): Maternal morbid obesity, antepartum, second trimester ([facility]) I discussed increased risk of defects based on her BMI (and DM). [address] scheduled * Assessment & Plan Note - Willy Mccullough MD - 05/23/2018 0905 EDTAssociated Problem(s): Acquired hypothyroidism (Resolved 09/09/2018) S: She says that she not having palpitations or temperature intolerance. She does complain of fatigue. O: see vitals Last TSH at [facility] was 0.29 on 03/27/2018 A: Prior lab work suggests over-replacement, which is not consistent with fatigue (eg, she is not hypothyroid). P: Repeat TSH. I am not going to cut her dose based on value from early March as replacement requirement is likely increasing in . We will make changes based on repeat TSH. I spent spent 25-minutes of my 25-minute session relating to pre- medical issues counseling her on diabetes and thyroid management. * Assessment & Plan Note - Willy Mccullough MD - 05/23/2018 0859 EDTAssociated Problem(s): Type 2 diabetes mellitus, without long-term current use of insulin ([facility]) Pre-Conception medical problem note S: She notes her diabetes is difficult to manage due to her schedule and time. She says she is currently taking metformin 500 mg daily and is good about taking it as she should, but she also made a comment that sometimes she must take an extra metformin after eating some particularly blood sugar stimulating meal. Her blood sugar logs are sparse, as she says she cannot always remember to do them. She presented the following Fasting: one value of 92 Post-breakfast: one value of 106 Pre-lunch: one value of 86 Post-dinner: 1/3 values < 120, range 99-175 A: Type 2 diabetes on Metformin with highly questionable control P: I have asked her to be more regimented in her blood sugars so we can see what the metformin is really doing. She stated she will try but it will be difficult. I discussed 1 hr postprandial vs. 2 hr postprandials, but she doesn't think one is better than the other. I asked her to try to do 2 hr postprandials then. I discussed the likelihood that she will need to go on insulin at some point, andshe is okay with that, but again I can't make a decision without better data. She will be seeing a engineering department chair and hopes that will remind her about dietary management. I have asked her to send in her sugars weekly, and we will reassess control in 2 weeks. I spent spent 25-minutes of my 25-minute session relating to pre- medical issues counseling her on diabetes and thyroid management. * Assessment & Plan Note - Willy Mccullough MD - 05/23/2018 0852 EDTAssociated Problem(s): Type 2 diabetes mellitus affecting in second trimester, antepartum See [place]ception [place] [address] and echo. Discussed need for weekly testing at 32 weeks' * Assessment & Plan Note - Willy Mccullough MD - 05/23/2018 0849 EDTAssociated Problem(s): Supervision of high risk , antepartum MFM attending S: She is doing okay with complaints of abdominal discomfort. She says she has irregular abdominal crampiness but no specific timing. She denies LOF or bleeding. 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 She says she is tired after dragging him to appointments and herself. She wants to get back to work but just can't manage. O: see vitals She declined a heart beat or abdominal exam today. A: IUP at 16w3d with Type 2 diabetes and other diagnoses, transferring care. P: MSAFP today RTC 2 weeks documented in this encounter Plan of Treatment Not on file documented as of this encounter Procedures Procedure Name Priority Date/Time Associated Diagnosis Comments [facility] DETAILED Routine 07/03/2018 15:55 EDT Diabetes mellitus affecting in second trimester Type 2 diabetes mellitus affecting in second trimester, antepartum [facility] ECHOCARDIOGRAM (PEDI CARD) Routine 07/03/2018 14:56 EDT Type 2 diabetes mellitus affecting in second trimester, antepartum Diabetes mellitus affecting in second trimester documented in this encounter Results * [facility] DETAILED (07/03/2018 15:55 EDT) Anatomical Region Laterality Modality Other 07/03/2018 15:5 5 EDT 07/03/2018 16:34 EDT Narrative 07/03/2018 16:34 EDT Indication Diabetes, pregestational, type 2 BMI 47.84. History ======= General History Height 180 cm Height (ft) ?5 ft Height (in) ?11 in Previous Outcomes ?3 Para ?? 2 Miller children born (T) ?2 Miller children born (P) ?0 Abortions (A) ??0 Miller living children (L) ??2 Other: Prior history of Maternal Assessment Height 180 cm Height (ft) ?5 ft Height (in) ?11 in Physical Exam Initial weight 156 kg Initial weight (lb) ?343 lb Initial BMI ?47.84 kg/m? Number of fetuses: 1. Dating ======= Method of dating: ??based on the external assessment Stated Dating on: ?03/20/2018 GA at stated dating date 7 w + 2 d GA by stated dating ??22 w + 2 d KADE by stated dating: ?11/04/2018 Ultrasound examination on: 07/03/2018 GA by U/S based upon: ??AC, BPD, Femur, HC GA by U/S ??23 w + 2 d KADE by U/S: ?10/28/2018 Assigned: ??Dating performed on 07/03/2018, based on the external assessment (on 03/20/2018) Assigned GA ?22 w + 2 d Assigned KADE: ??11/04/2018 General Evaluation Cardiac activity: Present. FHR 129 bpm. movements: visualized. Presentation: variable. Placenta: posterior, low-lying. Umbilical cord: placental insertion: normalCord vessels: 3 vessel cord. Amniotic fluid: Amount of AF: normal. Biometry Biometry BPD ?54.2 mm 55% 22w 3d Hadlock OFD ?77.3 mm >99% 25w 2d Nadege HC 210.9 mm ?74% 23w 1d [place] AC 193.1 mm ?90% 24w 0d Hadlock Femur ??40.4 mm 88% 23w 2d Nadege Cerebellum tr ??25.3 mm 98% 24w 0d Coe CM 3.4 mm ??3% Nicolaides Nuchal fold ?4.85 mm Humerus ?36.3 mm 57% 22w 5d Nadege EFW ?601 g Calculated by: Hadlock ([id number]) EFW (lb) ?? 1 lb EFW (oz) ?? 5 oz Cephalic index 0.70 ?<1% Nicolaides HC / AC ?1.09 FL / BPD ?? 0.75 FL / AC ?0.21 FHR ?129 bpm Head / Face / Neck Press Operator 3.2 mm Nasal bone 8.7 mm Extremities / Bony Struc Radius 32.5 mm 68% Chitty Ulna ?? 37.6 mm 95% 24w 6d Nadege Tibia ??34.4 mm 70% 22w 6d Nadege Fibula 34.4 mm 59% 22w 5d Nadege Foot ?? 38.6 mm 38% Chitty Anatomy Cranium: ?? normal Lateral ventricles: ?normal Choroid plexus: ?normal Midline falx: ??normal Cavum septi pellucidi: normal Cerebellum: ?normal Cisterna magna: ?normal Parenchyma: ?normal Cerebellar lobes: ??normal Vermis: ?normal Neck: ??normal Nuchal fold: ?? normal Lips: ??normal Profile: ?? normal Nose: ??normal Maxilla: ?? normal Mandible: ??normal 4-chamber view: ?normal RVOT: ??not adequately visualized LVOT: ??normal Situs: normal Aortic arch: ?? not adequately visualized SVC: ?? normal IVC: ?? normal 3-vessel view: not adequately visualized [id number]-[id number] view: not adequately visualized Rt lung: ?? normal Lt lung: ?? normal Diaphragm: normal Cord insertion: ?normal Stomach: ?? normal Kidneys: ?? normal Bladder: ?? normal Genitals: ??normal Abdom. wall: ?? normal Rt kidney: normal Lt kidney: normal Liver: normal Cervical spine: ?not adequately visualized Thoracic spine: ?not adequately visualized Lumbar spine: ??not adequately visualized Sacral spine: ??not adequately visualized Skeleton: ??normal Arms: ??normal Legs: ??normal Rt arm: ?normal Lt arm: ?normal Rt upper arm: ??normal Rt forearm: ?normal Rt hand: ?? normal Lt hand: ?? not adequately visualized Rt leg: ?normal Lt leg: ?normal Rt foot: ?? normal Lt foot: ?? normal Gender: ?male Gender: ?male Wants to know gender: ??yes Aneuploidy Screening Age ?36 yrs Echogenic focus: ?? no Include: ?? intracardiac echogenic focus Include: ?? ventriculomegaly Include: ?? nuchal fold Include: ?? echogenic bowel Include: ?? mild hydronephrosis Ventriculomegaly: ??no Nuchal fold: ?? normal Echogenic bowel: ?? no Pyelectasis: ?? no Short femur: ?? no Include: ?? short humerus Include: ?? nasal bone Short humerus: no Nasal bone: ?present Display risk: ??Risk at time of screening Background risk at time of screening ?? 237 Background risk at term ?271 Adjusted risk at time of screening 639 Adjusted risk at term ??730 Other: She has had normal results on a cell-free DNA in maternal serum test. Maternal Structures Uterus / Cervix Uterus: ?Appears normal Cervix: ?Appears normal Ovaries / Tubes / Adnexa Rt ovary: ??Ovary not visualized, no adnexal abnormality seen Lt ovary: ??Ovary not visualized, no adnexal abnormality seen Method ======== Transabdominal ultrasound examination, [place] E10. View: Poor view. Impression [id number] Obstetrical ultrasound with and maternal evaluation, including detailed anatomic examination This is a miller gestation. Biometry is consistent with early ultrasound dating. The exam was extremely limited by maternal body habitus. The spine, AA, RVOT, 3VV, 3VTV, left hand and cardiac septum were not visualized. Otherwise, anatomy appears normal as noted above; however, ultrasound cannot detect all anomalies. As per the [facility] guidelines, the following were evaluated and were normal: the cerebellum (including lobes and vermis), facial profile, the chest (including examination for masses, effusion, integrity of both sides of the diaphragm and lung parenchyma), abdomen for ascites, 12-long bones with normal architecture/position of limbs, hands and feet, placental insertion site of the umbilical cord and placenta for masses. The amniotic fluid volume is normal. There is trunk and extremity movement noted. Follow-up We recommend follow-up ultrasound in 4 weeks to re-evaluate poorly seen anatomy. Comment ========= This follow-up has not been scheduled. DATE OF SERVICE: 07/03/2018 Procedure Note Yesenia Miller MD - 07/03/2018 Indication Diabetes, pregestational, type 2 BMI 47.84. History ======= General History Height 180 cm Height (ft) 5 ft Height (in) 11 in Previous Outcomes 3 Para 2 Miller children born (T) 2 Miller children born (P) 0 Abortions (A) 0 Miller living children (L) 2 Other: Prior history of Maternal Assessment Height 180 cm Height (ft) 5 ft Height (in) 11 in Physical Exam Initial weight 156 kg Initial weight (lb) 343 lb Initial BMI 47.84 kg/m? Number of fetuses: 1. Dating ======= Method of dating: based on the external assessment Stated Dating on: 03/20/2018 GA at stated dating date 7 w + 2 d GA by stated dating 22 w + 2 d KADE by stated datin11/04/2018 Ultrasound examination on: 07/03/2018 GA by U/S based upon: AC, BPD, Femur, HC GA by U/S 23 w + 2 d KADE by U/S: 10/28/2018 Assigned: Dating performed on 07/03/2018, based on the external assessment (on 03/20/2018) Assigned GA 22 w + 2 d Assigned KADE: 11/04/2018 General Evaluation Cardiac activity: Present. FHR 129 bpm. movements: visualized. Presentation: variable. Placenta: posterior, low-lying. Umbilical cord: placental insertion: normalCord vessels: 3 vessel cord. Amniotic fluid: Amount of AF: normal. Biometry Biometry BPD 54.2 mm 55% 22w 3d Hadlock OFD 77.3 mm >99% 25w 2d Nadege HC 210.9 mm 74% 23w 1d [place] AC 193.1 mm 90% 24w 0d Hadlock Femur 40.4 mm 88% 23w 2d Nadege Cerebellum tr 25.3 mm 98% 24w 0d Coe CM 3.4 mm 3% Nicolaides Nuchal fold 4.85 mm Humerus 36.3 mm 57% 22w 5d Nadege EFW 601 g Calculated by: Hadlock ([id number]) EFW (lb) 1 lb EFW (oz) 5 oz Cephalic index 0.70 <1% Nicolaides HC / AC 1.09 FL / BPD 0.75 FL / AC 0.21 FHR 129 bpm Head / Face / Neck Press Operator 3.2 mm Nasal bone 8.7 mm Extremities / Bony Struc Radius 32.5 mm 68% Chitty Ulna 37.6 mm 95% 24w 6d Nadege Tibia 34.4 mm 70% 22w 6d Nadege Fibula 34.4 mm 59% 22w 5d Nadege Foot 38.6 mm 38% Chitty Anatomy Cranium: normal Lateral ventricles: normal Choroid plexus: normal Midline falx: normal Cavum septi pellucidi: normal Cerebellum: normal Cisterna magna: normal Parenchyma: normal Cerebellar lobes: normal Vermis: normal Neck: normal Nuchal fold: normal Lips: normal Profile: normal Nose: normal Maxilla: normal Mandible: normal 4-chamber view: normal RVOT: not adequately visualized LVOT: normal Situs: normal Aortic arch: not adequately visualized SVC: normal IVC: normal 3-vessel view: not adequately visualized 8-[id number]-[id number] view: not adequately visualized Rt lung: normal Lt lung: normal Diaphragm: normal Cord insertion: normal Stomach: normal Kidneys: normal Bladder: normal Genitals: normal Abdom. wall: normal Rt kidney: normal Lt kidney: normal Liver: normal Cervical spine: not adequately visualized Thoracic spine: not adequately visualized Lumbar spine: not adequately visualized Sacral spine: not adequately visualized Skeleton: normal Arms: normal Legs: normal Rt arm: normal Lt arm: normal Rt upper arm: normal Rt forearm: normal Rt hand: normal Lt hand: not adequately visualized Rt leg: normal Lt leg: normal Rt foot: normal Lt foot: normal Gender: male Gender: male Wants to know gender: yes Aneuploidy Screening Age 37 yrs Echogenic focus: no Include: intracardiac echogenic focus Include: ventriculomegaly Include: nuchal fold Include: echogenic bowel Include: mild hydronephrosis Ventriculomegaly: no Nuchal fold: normal Echogenic bowel: no Pyelectasis: no Short femur: no Include: short humerus Include: nasal bone Short humerus: no Nasal bone: present Display risk: Risk at time of screening Background risk at time of screening 237 Background risk at term 271 Adjusted risk at time of screening 639 Adjusted risk at term 730 Other: She has had normal results on a cell-free DNA in maternal serum test. Maternal Structures Uterus / Cervix Uterus: Appears normal Cervix: Appears normal Ovaries / Tubes / Adnexa Rt ovary: Ovary not visualized, no adnexal abnormality seen Lt ovary: Ovary not visualized, no adnexal abnormality seen Method ======== Transabdominal ultrasound examination, [place] E10. View: Poor view. Impression [id number] Obstetrical ultrasound with and maternal evaluation, including detailed anatomic examination This is a miller gestation. Biometry is consistent with early ultrasound dating. The exam was extremely limited by maternal body habitus. The spine, AA, RVOT, 3VV, 3VTV, left hand and cardiac septum were not visualized. Otherwise, anatomy appears normal as noted above; however, ultrasound cannot detect all anomalies. As per the [facility] guidelines, the following were evaluated and were normal: the cerebellum (including lobes and vermis), facial profile, the chest (including examination for masses, effusion, integrity of both sides of the diaphragm and lung parenchyma), abdomen for ascites, 12-long bones with normal architecture/position of limbs, hands and feet, placental insertion site of the umbilical cord and placenta for masses. The amniotic fluid volume is normal. There is trunk and extremity movement noted. Follow-up We recommend follow-up ultrasound in 4 weeks to re-evaluate poorly seen anatomy. Comment ========= This follow-up has not been scheduled. DATE OF SERVICE: 07/03/2018 Willy Mccullough MD G US [facility] ORDER ROMEO * [facility] ECHOCARDIOGRAM (PEDI CARD) (07/03/2018 14:56 EDT) Anatomical Region Laterality Modality Other 07/03/2018 14:5 6 EDT Narrative 07/03/2018 16:24 EDT Pediatric Cardiology [address] [place] [address] Date of study: 07/03/2018 Transabdominal Echocardiography Complete 2D, complete spectral Doppler, and color Doppler *STUDY CONCLUSIONS* Summary: - echocardiogram at 22+2 weeks gestation. Difficult images and the ??aortic arch could not be demonstrated. - Normal chamber size and function. - Normal arterial and venous connections. - Normal Doppler study. - No arrhythmias noted during the exam. - No evidence of hydrops. - The results of the study, its limitations and the limitations of ??echocardiography in general were reviewed. The inability to diagnose ??patent ductus arteriosus, some atrial defects, ventricular septal ??defects and coarctation was discussed. Follow up ??echocardiography is suggested to reassess aortic arch in 4-6 weeks. - Scanninig performed by Dr. Gonzales and I was present for the entire ??study. *PATIENT PRESENTATION* Age: ?37yr S/D Pressure: Location: Facility: ? [facility] Attending: ?Willy Mccullough MD Referring: ?Willy Mccullough MD Performing: ?? Deedee North MD Ordering: ? Willy Mccullough MD Test start time: ??02:03 PM. Test stop time: ??02:40 PM. *PROCEDURE DATA* Procedure information: ??Pertinent images and digital data are archived for permanent storage and are available for subsequent review. ??Study status: ??Routine. Transabdominal echocardiography. ??Complete 2D, complete spectral Doppler, and color Doppler. ??Transabdominal echocardiography for congenital heart disease evaluation. ??: 3. ??Parity: ?2. ??Expected delivery date: ?11/04/2018. ??Gestational age: ?22wk. ??Study completion: ??The patient tolerated the procedure well. *INDICATIONS AND HISTORY* Indications: ?? BMI 47.9. History: ?? Risk factors: ?? History of maternal diabetes. *CARDIAC ANATOMY* DESCRIPTION Normal Doppler pattern of the umbilical artery and vein VEINS AND ATRIA Atrial septum: ??There is a patent foramen ovale. There is a vzwyn-gi-xgpq shunt. Left atrium: ??The atrium is normal in size. Right atrium: ??The atrium is normal in size. Systemic veins: ??Normal systemic venous drainage. Pulmonary veins: ??At least one pulmonary vein is seen entering the left atrium from each side. A-V CANAL Tricuspid valve: ? There is normal biphasic inflow spectral Doppler. There is no significant regurgitation. Mitral valve: ? There is normal biphasic inflow spectral Doppler. There is no regurgitation. VENTRICLES Right ventricle: ??The cavity size is normal. Systolic function is qualitatively normal. Ventricular septum: ?? On very limited images, there is no evidence for a significant ventricular septal defect. Left ventricle: ??The cavity size is normal. Systolic function is qualitatively normal. CONOTRUNCUS Aortic valve: ? Transvalvular velocity is within the normal range. There is no regurgitation. Pulmonary valve: ?Transvalvular velocity is within the normal range. There is no regurgitation. GREAT ARTERIES Aorta: ??Unable to visualize the aortic arch. The aortic valve functions normally and the ascending appears normal in size. Pulmonary arteries: ?? The proximal branch pulmonary arteries are normal. Systemic-pulmonary shunts: Patent ductus arteriosus. Shunt flow is right to left. PERICARDIUM There is no significant pericardial effusion. I have personally reviewed the images and have reviewed and edited the reported findings. Electronically signed by Deedee North MD 07/03/2018 16:24 Procedure Note Deedee North MD - 07/03/2018 [facility] [address] [place] [address] Date of study: 07/03/2018 Transabdominal Echocardiography Complete 2D, complete spectral Doppler, and color Doppler *STUDY CONCLUSIONS* Summary: - echocardiogram at 22+2 weeks gestation. Difficult images and the aortic arch could not be demonstrated. - Normal chamber size and function. - Normal arterial and venous connections. - Normal Doppler study. - No arrhythmias noted during the exam. - No evidence of hydrops. - The results of the study, its limitations and the limitations of echocardiography in general were reviewed. The inability to diagnose patent ductus arteriosus, some atrial defects, ventricular septal defects and coarctation was discussed. Follow up echocardiography is suggested to reassess aortic arch in 4-6 weeks. - Scanninig performed by Dr. Gonzales and I was present for the entire study. *PATIENT PRESENTATION* Age: 37yr S/D Pressure: Location: Facility: [facility] Attending: Willy Mccullough MD Referring: Willy Mccullough MD Performing: Deedee North MD Ordering: Willy Mccullough MD Test start time: 02:03 PM. Test stop time: 02:40 PM. *PROCEDURE DATA* Procedure information: Pertinent images and digital data are archived for permanent storage and are available for subsequent review. Study status: Routine. Transabdominal echocardiography. Complete 2D, complete spectral Doppler, and color Doppler. Transabdominal echocardiography for congenital heart disease evaluation. : 3. Parity: 2. Expected delivery date: 11/04/2018. Gestational age: 22wk. Study completion: The patient tolerated the procedure well. *INDICATIONS AND HISTORY* Indications: BMI 47.9. History: Risk factors: History of maternal diabetes. *CARDIAC ANATOMY* DESCRIPTION Normal Doppler pattern of the umbilical artery and vein VEINS AND ATRIA Atrial septum: There is a patent foramen ovale. There is a yunpo-ve-kqjg shunt. Left atrium: The atrium is normal in size. Right atrium: The atrium is normal in size. Systemic veins: Normal systemic venous drainage. Pulmonary veins: At least one pulmonary vein is seen entering the left atrium from each side. A-V CANAL Tricuspid valve: There is normal biphasic inflow spectral Doppler. There is no significant regurgitation. Mitral valve: There is normal biphasic inflow spectral Doppler. There is no regurgitation. VENTRICLES Right ventricle: The cavity size is normal. Systolic function is qualitatively normal. Ventricular septum: On very limited images, there is no evidence for a significant ventricular septal defect. Left ventricle: The cavity size is normal. Systolic function is qualitatively normal. CONOTRUNCUS Aortic valve: Transvalvular velocity is within the normal range. There is no regurgitation. Pulmonary valve: Transvalvular velocity is within the normal range. There is no regurgitation. GREAT ARTERIES Aorta: Unable to visualize the aortic arch. The aortic valve functions normally and the ascending appears normal in size. Pulmonary arteries: The proximal branch pulmonary arteries are normal. Systemic-pulmonary shunts: Patent ductus arteriosus. Shunt flow is right to left. PERICARDIUM There is no significant pericardial effusion. I have personally reviewed the images and have reviewed and edited the reported findings. Electronically signed by Deedee North MD 07/03/2018 16:24 Willy Mccullough MD CARDIAC ECHO ORD ERABLES * ALPHA-FETOPROTEIN (AFP), SINGLE MARKER SCREEN, MATERNAL, S (05/22/2018 16:39 EDT) Patient Weight 140.9 05/22/2018 16:35 [facility] Units KILOGRAM (KG) 05/22/2018 16:35 [facility] Prev Down NO 05/22/2018 16:35 [facility] Pts Estim Due Date 20,181,211 2017 16:35 [facility] Method used for KADE ULTRASOUND 05/22/2018 16:35 [facility] Results Summary Normal risk 05/26/20 18 12:44 [facility] NTD Risk Estimate 1/10,000 018 12:44 [facility] AFP 21.4 ng/mL 05/26/2018 12:44 [facility] AFP MoM 1.04 <2.50 MoM 05/26/2018 12:44 [facility] Interpretation Screen negative for neural tube defects. 05/26/2018 12:44 [facility] Recommend Follow Up None. 05/26/2018 12:44 [facility] Collection Date 05/22/18 8 12:44 [facility] Birthdate [birth year] 05[birth year]26[birth year]2018 12:44 [facility] Calc age at KADE 38 years 8 12:44 [facility] Maternal Weight lbs 310 lbs 05/26/2018 12:44 [facility] Maternal Weight kg 141 kg 2017 12:44 [facility] Insulin dep diabetes NO 05/22/2018 16:35 [facility] Patient Race NON BLACK 05/22/2018 16:35 [facility] Smoking Status SMOKER 05/22/2018 16:35 [facility] KADE by U/S scan 11/04/18 8 12:44 [facility] GA on reina by U/S 16,2 wk,d 018 12:44 [facility] GA used in risk est Scan estimate 05/26/2018 12:44 [facility] Number of Fetuses 1 018 16:35 [facility] Number of Chorions NOT APPLICABLE 05/22/2018 16:35 [facility] IVF NO 05/22/2018 16:35 [facility] IVF Egg Donor NO 018 17:24 [facility] IVF Egg, Embryo Fr Dt NO 05/22/2018 17:24 [facility] Prev w NTD NO 05/22/2018 16:35 [facility] Pt or Father has NTD NO 05/22/2018 16:35 [facility] Initial or Repeat INITIAL 018 16:35 [facility] Phys Phone Number [phone] 04/26 16:35 [facility] General Test Info (Note) 12:44 [facility] Comment: This screening provides an estimation of risk, not a diagnosis. Incorrect or incomplete information may significantly alter results. . Results may be unreliable in twin pregnancies with a demise. Results are not available for pregnancies with triplets and higher-order multiples. . A positive result occurs when the AFP MoM equals or exceeds 2.5. . Screen results and family history influence individual risk. If there is a family history of a neural tube defect, chromosome abnormality, or other inherited condition, consider the option of a genetic consultation. . For further information, please contact the maternal screening laboratory at . . ADDITIONAL INFORMATION This test was developed and its performance characteristics determined by [facility] in a manner consistent with CLIA requirements. This test has not been cleared or approved by the U.S. Food and Drug Administration. Performed by: [facility]: [address], [place] [address], Lab Dir: Chencho Le II, M.D., Ph.D. Blood specimen (specimen) BLOOD SPECIMEN / Unknown 05/22/2018 16:39 EDT 05/22/2018 17:23 EDT Willy Mccullough MD CHEMISTRY & BLOO D GAS ORDERABLES Performing Organization Address [facility] Co de Phone Number [facility] [address] [place] [address] * (ABNORMAL) THYROID CASCADE (05/22/2018 16:39 EDT) TSH 0.13(L) 0.47 - 4.68 uIU/ml 05/22/2018 18:33 EDT [facility] Comment: TSH cascade is not recommended for patients in which pituitary or hypothalamic disorders are suspected. The results of this assay can be falsely lowered due to the consumption of Biotin. Blood specimen (specimen) BLOOD SPECIMEN / Unknown 05/22/2018 16:39 EDT 05/22/2018 17:23 EDT Willy Mccullough MD CHEMISTRY & BLOO D GAS ORDERABLES Performing Organization Address [facility] Co de Phone Number [facility] [address] [place] [phone] documented in this encounter Visit Diagnoses Diagnosis Supervision of high risk , antepartum- Primary Hypothyroid in , antepartum, second trimester Diabetes mellitus affecting in second trimester Type 2 diabetes mellitus affecting in second trimester, antepartum Hypothyroidism affecting , antepartum Tobacco use affecting in first trimester, antepartum Maternal morbid obesity, antepartum, second trimester ([facility]) Acquired hypothyroidism Unspecified hypothyroidism History of delivery, antepartum Type 2 diabetes mellitus without complication, without long-term current use of insulin ([facility]) documented in this encounter Care Teams Turkey Picker Relationship Specialty Start Date End Date Emily Bejarano APRN [address] [place] [address] PCP - General 04/30/18 04/25/22 documented as of this encounter
--- OUTSIDE RECORDS SUMMARY | 2024-07-02 18:54 | XMS_ITS | Encounter Summary ---
Author Organization [facility] Address [address] [place] [address] Care Team Providers Care Digital Measurement Advisor Name Role Phone Emily Bejarano APRN Primary Care Provider [phone] Encounter Details Date Type Department Care Team (Late st Contact Info) Description 08/07/[address] [facility] - [address] [address] Dahiana Genao, RN Social History Tobacco Use Types Packs/Day Years [...] :33 EDT documented as of this encounter Progress Notes * Dahiana Genao, ARVIND - 08/07/2018 1442 EDT [facility] paperwork reviewed with Dr. Mccullough and patient. Completed and signed. [employer] returned topatient, copy made and mailed to [facility] office in [place]. Another copy was sent to be scanned into [employer]. documented in this encounter Plan of Treatment Not on file documented as of this encounter Visit Diagnoses Not on filedocumented in this encounter Care Teams Digital Measurement Advisor Relationship Specialty Start Date End Date Emily Bejarano APRN [address] [place] [address] PCP - General 04/30/18 04/25/22 documented as of this encounter
--- OUTSIDE RECORDS SUMMARY | 2024-07-02 18:54 | XMS_ITS | Encounter Summary ---
Author Organization [facility] Address [address] [place] [address] Care Team Providers Care Cnc Operator Machinist Name Role Phone Emily Bejarano Lena AWAD Primary Care Provider [phone] Reason for Visit * Reason Onset Date Comments Follow-up 07/04/2018 Encounter Details Date Type Department Care Team (Late st Contact Info) Description 07/04/2018 Telephone [facility] Ob[facility]etrics & Midwifery - [address] [address] Deborah Sepulveda, RN Follow-up Social History Tobacco Use Types Packs/Day Years [...] encounter Miscellaneous Notes * Telephone Encounter - Deborah Sepulveda, RN - 07/04/2018 0933 EDT Faxed over last APV note to Lakisha per her request, she is going to see pt today. Lakisha - Medicaid Nurse Supervisor Costuming calling to review pt's last APV note. She was wondering about the f/u u/s. Reviewed u/s report - had suboptimal views on u/s hence need for f/u. Discussed it would be helpful if Lakisha can assist pt in making sure she is tracking her finger stick blood sugar #s.Lakisha states she plans to see pt weekly and that she can help make sure the FS #s get faxed over to us. No additional questions for Lakisha. documented in this encounter Plan of Treatment Not on file documented as of this encounter Visit Diagnoses Not on filedocumented in this encounter Care Teams Cnc Operator Machinist Relationship Specialty Start Date End Date Emily Bejarano, DELMI [address] [place] [id number] PCP - General 04/30/18 04/25/22 documented as of this encounter
--- OUTSIDE RECORDS SUMMARY | 2024-07-02 18:54 | XMS_ITS | Encounter Summary ---
Author Organization [facility] Address [address] [place] [address] Care Team Providers Care Clinical Cytopathologist Name Role Phone None, Provider Primary Care Provider Unavailabl e Reason for Visit * Reason Comments Abdominal Pain Bilateral stabbing abd pain the started 8 hrs ago. 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 Encounter Details Date Type Department Care Team (Late st Contact Info) Description 09/10/2017 22:24 EDT - 09/11/2017 2:09 EDT [facility] Emergency Department - [address] [address] Robb Segovia PA-C [address] [place] [address], [address] [place] [address] Emergency, MD Madina Pyelonephritis (Primary Dx) Discharge Disposition: Home or Self [...] Sign Reading Time Taken Comments Blood Pressure 138/78 09/11/2017 0208 EDT Pulse 88 09/11/2017 0208 EDT Temperature 36.8 ??C (98.2 ??F) 09/10/20172231 EDT Respiratory Rate 14 09/11/2017207 EDT Oxygen Saturation 98% 09/11/2017207 EDT Inhaled Oxygen Concentration - - Weight 157.4 kg (347 lb) 09/10/20172231 EDT Height 180.3 cm (5' 11) 09/10/20172231 EDT Body Mass Index 48.4 09/10/20172231 EDT documented in this encounter Discharge Diagnoses Diagnosis N12 Tubulo-interstitial nephritis, not spcf as acute or chronic-N12[ICD-10-CM] J45.909 Unspecified asthma, uncomplicated-J45.909[ICD-10-CM] F17.200 Nicotine dependence, unspecified, uncomplicated-F17.200[ICD-10-CM] Z79.51 halfway (current) use of inhaled steroids-Z79.51[ICD-10-CM] documented in this encounter Discharge Instructions * Discharge Instructions* Robb Segovia PA - 09/11/2017 1:47 EDT At your emergency department visit today, your evaluated for complaints of lower abdominal pain, radiating into the back. A urine sample was tested, showing signs of urinary tract infection. There was also a small amount of blood. Due to the sharp stabbing pains in your side, there was some concernfor kidney stone. The CT of your abdomen showed no signs of stones. There appears to be a small cyst in the kidney. You are started on antibiotics called ciprofloxacin 500 mg to be taken twice daily for the next 10 days. You are also prescribed a medication called Pyridium, which will help with the discomfort thatyou feel when urinating. Follow-up with your primary care provider in one week for reevaluation. You may take Tylenol 1000 mg 3 times daily and/or ibuprofen 600 mg 3 times daily to manage her pain. If you develop vomiting, fevers, chills, sweats, inability to tolerate oral intake, or worsening pain, return to the emergency department. * Attachments The following attachments cannot be sent through Care Everywhere. * PYELONEPHRITIS (DOMINICAN) documented in this encounter Medications at Time of Discharge Medication Sig Dispensed Refills Start Date End Date albuterol (PROVENTIL HFA, VENTOLIN HFA) 90 mcg/Actuation inhaler Inhale 2 Puffs as directed every 4 hours. metFORMIN (GLUCOPHAGE) 500 mg tablet Take 1,000 mg by mouth 2 times daily. acetaminophen-codeine (TYLENOL #3) 300-30 mg per tablet Take 1 Tab by mouth every 4 hours as needed for Pain. 10 Tab 0 09/17/2011 05/05/2020 ciprofloxacin HCl (CIPRO) 500 mg tablet Take 1 Tab by mouth every 12 hours for 10 days. 20 Tab 09/11/2017 09/21/2017 fluticasone-salmeterol (ADVAIR) 250-50 mcg/Dose diskus inhaler Inhale 1 Puff as directed every 12 hours. 04/25/2020 levothyroxine (SYNTHROID) 112 mcg tabletIndications:Take 2 tabs Take 112 mcg by mouth daily. 05/29/2018 phenazopyridine (PYRIDIUM) 200 mg tablet Take 1 Tab by mouth 3 times daily for 7 days. 21 Tab 09/11/2017 09/18/2017 documented as of this encounter Ordered Prescriptions Prescription Sig Dispensed Refills Start Date End Da te phenazopyridine (PYRIDIUM) 200 mg tablet Take 1 Tab by mouth 3 times daily for 7 days. 21 Tab 09/11/2017 09/18/2017 ciprofloxacin HCl (CIPRO) 500 mg tablet Take 1 Tab by mouth every 12 hours for 10 days. 20 Tab 09/11/2017 09/21/2017 documented in this encounter Discharge Disposition Disposition Code Departure Means Destination Home or Self Care documented in this encounter Progress Notes * Emily Caban - 09/11/2017 0209 EDT Pt has [place] medicaid that will not cover [facility] pharmacy to fill and bill CM[facility]SW dept. Emily Caban # [id number] documented in this encounter ED Notes * Keith Marx - 09/11/2017 0007 EDT Blood drawn via saline lock per protocol, tiger and purple tube(s) sent to lab per order. * Robb Segovia PA - 09/10/2017 2339 EDT DOS: 09/10/2017 Chief Complaint Patient presents with ??? Abdominal Pain Bilateral stabbing abd pain the started 8 hrs ago. 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 Ellephilomena Meño 09/10/2017 23:39 Yesenia Fragoso is a 36 y.o. female with no significant past medical history presenting with abdominalpain. She reports the pain radiates to her back. Patient endorses associated dysuria and urinary frequency. She endorses chills but denies fever or diaphoresis. She denies leg swelling. She endorses nausea and 1 episode of vomiting which she associates with her pain. She denies dizziness or lightheadedness. She denies diarrhea or constipation. She reports she was sick about 1 week ago and was evaluated in the ED. She has a history of cholecystectomy in November 2015 and in 2009. She denies any previous past similar episodes. She denies recent travel or unusual foods. Patient is a current every-day smoker (0.25 ppd) and does not currently drink ETOH. The history is provided by the patient and medical records. Review of Systems Review of Systems Constitutional: Positive for chills. Negative for diaphoresis and fever. Cardiovascular: Negative for leg swelling. Gastrointestinal: Positive for abdominal pain, nausea and vomiting. Negative for constipation and diarrhea. Genitourinary: Positive for dysuria and frequency. Neurological: Negative for dizziness and light-headedness. The patient's past medical, family and social history was reviewed and updated as needed. Allergies Allergen Reactions ??? Morphine Hives Vital Signs Temp: 36.8 ??C (98.2 ??F) Temp src: Temporal Pulse: 100 Resp: 16 SpO2: 98 % BP: 133/81 BP MAP: 95 mm Hg BP Device: BP Machine Patient Position: Sitting BP Cuff Location: Right arm O2 Device: None (Room air) Physical Exam Constitutional: She is oriented to person, place, and time. She appears well- developed and well-nourished. No distress. HENT: Head: Normocephalic and atraumatic. Right Ear: External ear normal. Left Ear: External ear normal. Nose: Nose normal. Mouth/Throat: Oropharynx is clear and moist. Eyes: Conjunctivae and EOM are normal. Pupils are equal, round, and reactive to light. Neck: Normal range of motion. Neck supple. Cardiovascular: Normal rate, regular rhythm, normal heart sounds and intact distal pulses. No murmur heard. Pulmonary/Chest: Effort normal and breath sounds normal. No respiratory distress. She has no wheezes. She has no rales. Abdominal: Soft. She exhibits no distension. There is tenderness (Moderate diffuse tenderness to palpation which was non-tympanitic). Musculoskeletal: Normal range of motion. She exhibits no edema. Diffuse tenderness to palpation throughout the lumbar paraspinal musculature but no true CVA tenderness Neurological: She is alert and oriented to person, place, and time. Skin: Skin is warm and dry. No rash noted. She is not diaphoretic. No erythema. No pallor. Psychiatric: She has a normal mood and affect. Her behavior is normal. Nursing note and vitals reviewed. RESULTS EKG orders: None Radiology orders: CT RENAL COLIC WO CONTRAST Imaging Results CT RENAL COLIC WO CONTRAST (Preliminary result) Result time: 09/11/17 01:34:29 Preliminary result Narrative: PRELIMINARY RESIDENT REPORT CT RENAL COLIC 09/11/2017 1:24 AM Signs and Symptoms/Comments: Right flank pain Technique: Axial CT images obtained from abdomen immediately superior to level of kidneys through the pelvis without administration of contrast of any kind. Sagittal and coronal reformats generated. Comparison: None available. Findings: Kidneys and ureters: There is an indeterminate 1.3 cm exophytic lesion of the lower pole of the right kidney. No calcified urinary tract calculi are identified. There is no hydronephrosis. The ureters are normal in course and caliber. Bladder: Empty. Uterus, adnexa: Normal. Included lung bases: Clear. Unenhanced liver and spleen, as far as included: Unremarkable. Gallbladder, pancreas, adrenal glands: Status post cholecystectomy. The pancreas and adrenal glands are normal. Bowel: Scattered colonic diverticuli without evidence of diverticulitis. The appendix is normal. There is no wall thickening or obstruction. Peritoneal cavity: No free fluid, free air, mass, collection, or inflammatory change. Abdominal wall: Intact. Lymphovascular: A small number of lymph nodes are scattered throughout the mesentery, none of which are pathologically enlarged. There is minimal calcified atherosclerotic disease in the abdomen and pelvis. The aorta is normal in caliber.. Musculoskeletal: Normal. Impression: 1. No urinary tract calculi identified. 2. No acute abnormality in the abdomen or pelvis. 3. Indeterminate 1.3 cm exophytic lesion of the lower pole of the right kidney. ED Lab Results Labs Reviewed URINALYSIS MICROSCOPIC ONLY - Abnormal Result Value Status Squam Epithel, UA Frequent (*) Final Bacteria, UA Rare (*) Final WBC, UA 10 to 50 Final RBC, UA 1 to 5 Final Renal Epithel, UA None seen Final Crystals, UA None seen Final Casts, UA Rare Final UA Comment Microscopic results Final Mucus, UA Present Final UA Comment Few WBC clumps Final BASIC METABOLIC PANEL - Abnormal Glucose, Serum 141 (*) Final Sodium 141 Final Potassium 4.1 Final Chloride 107 Final CO2 24 Final BUN 14 Final Creatinine 0.78 Final GFR, Calculated 99 Final Calcium 9.6 Final Calculated Calcium 9.8 Final Fasting? Unknown Final HEMAGRAM AND DIFFERENTIAL - Abnormal WBC 14.92 (*) Final ABS Lymphs 5.37 (*) Final RBC 4.60 Final Hemoglobin 13.3 Final HCT 39.1 Final MCV 85 Final MCH 28.9 Final MCHC 34.0 Final RDW-CV 13.0 Final RDW-SD 40.0 Final PLT 310 Final MPV 9.5 Final Neutrophils 58.0 Final Lymphocytes 36.0 Final Monocytes 3.0 Final Eosinophils 3.0 Final ABS Neutrophils 8.65 Final ABS Monocytes 0.45 Final ABS Eosinophils 0.45 Final Type of Diff: Manual Final POCT URINE DIPSTICK - Abnormal Ketones Trace (*) Final Blood Trace (*) Final Protein 1+ (*) Final Leuk Esterase 1+ (*) Final Color YELLOW Final Clarity, UA SLIGHTLY CLOUDY Final Glucose Neg Final Bilirubin Neg Final Specific [place] >=1.030 Final pH 6.5 Final Urobilinogen 1.0 Final Nitrite Neg Final Tech ID [id number] Final BACTERIAL CULTURE, URINE POCT TEST, CLINITEK UPT Result Neg Final Tech ID [id number] Final Relevant Data Procedures ED COURSE A medical screening exam was performed. Patient is a 36 year old female with no significant past medical history presenting with abdominal pain, dysuria, urinary frequency, nausea, and vomiting. On exam, abdomen had moderate diffuse tenderness to palpation which was non- tympanitic. There was diffuse tenderness to palpation throughout the lumbar paraspinal musculature but no true CVA tenderness. Plan for lab work and hydration. (22:47) POCT urine was significant for 1+ leuk esterase, 1+ protein, and trace blood in the urine. UPT was negative. (00:23) Patient had labs that were reviewed independently by myself, significant for WBC of 14.92. (00:34) Patient received 15 mg Toradol IV, 4 mg Zofran IV, and 1 L NS IV. (00:45) Discussed the patient with Dr. Munoz. (01:12) Reevaluation. Patient denies any improvement in her pain. Discussed with the patient US, patient preferred CT as it was quicker and more definitive. Dr. Munoz agreed with the plan given the blood and infection in the urine. (01:34) Patient had a CT renal colic without contrast, which was significant for no acute findings.Patient had CT that was obtained, reviewed, and interpreted by myself and discussed with a radiologist. Please see radiology report for further details. Patient received 500 mg ciprofloxacin PO starter pack. Prior to discharge usual and customary precautions were reviewed with the patient and/or family including follow-up instructions and reasons to return to the Emergency Department if condition worsens, does not improve as expected, or other new concerns arise. ASSESSMENT AND PLAN Final diagnoses: Pyelonephritis DISPOSITION: Discharged The patient's pain was managed to an adequate level weighing risk vs. benefit of further medications. Upon departure from the Emergency Department, the patient's pain was 4 on a zero to ten scale. Any further pain treatment will be at the discretion of the provider following up with the patient based on their clinical assessment. Condition at departure from the Emergency Department: Improved PCP: Provider None MDM Number of Diagnoses or Management Options Pyelonephritis: new, needed workup Amount and/or Complexity of Data Reviewed Clinical lab tests: ordered and reviewed Tests in the radiology section of CPT??: ordered and reviewed Discussion of test results with the performing providers: yes Decide to obtain previous medical records or to obtain history from someone other than the patient:yes Obtain history from someone other than the patient: yes Review and summarize past medical records: yes Discuss the patient with other providers: yes Independent visualization of images, tracings, or specimens: yes Risk of Complications, Morbidity, and/or Mortality Presenting problems: moderate Diagnostic procedures: low Management options: low Patient Progress Patient progress: improved 09/10/2017 23:39 No flowsheet data found. This documentation is recorded by Enrike Wilder acting as Scribe under the direction and presence of Robb Segovia PA. Robb Segovia PA: I personally performed the services recorded by the scribe in my presence. I confirm the scribe's documentation has been reviewed by me to accurately and completely record my work, treatment, procedures, and medical decision making. Dr. Snyder was available for supervision. * Niurka Hammond RN - 09/10/20172231 EDT Chief Complaint Patient presents with ??? Abdominal Pain Bilateral stabbing abd pain the started 8 hrs ago. 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 documented in this encounter Plan of Treatment Not on file documented as of this encounter Procedures Procedure Name Priority Date/Time Associated Diagnosis Comments CT RENAL COLIC WO CONTRAST STAT 09/11/2017 1:24 EDT URINE SEDIMENT (MICRO) WITHOUT REFLEX TO CULTURE STAT 09/11/2017 0:02 EDT COMPLETE BLOOD COUNT AND DIFFERENTIAL STAT 09/11/2017 0:02 EDT BACTERIAL CULTURE, URINE STAT 09/11/2017 0:02 EDT BASIC METABOLIC PANEL (BMP) STAT 09/11/2017 0:02 EDT POCT TEST, CLINITEK STAT 09/10/2017 22:42 EDT POCT URINE DIPSTICK, CLINITEK STAT 09/10/2017 22:41 EDT documented in this encounter Results * CT RENAL COLIC WO CONTRAST (09/11/2017 1:24 EDT) Anatomical Region Laterality Modality Other 09/11/2017 1:24 EDT 09/11/2017 10:18 EDT Narrative 09/11/2017 10:[address] RENAL COLIC ??09/11/2017 1:24 AM Signs and Symptoms/Comments: ?? Right flank pain Technique: Axial CT images obtained from abdomen immediately superior to level of kidneys through the pelvis without administration of contrast of any kind. Sagittal and coronal reformats generated. Comparison: None available. 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 No calcified urinary tract calculi are identified. There is no hydronephrosis. The ureters are normal in course and caliber. Bladder: Empty. Uterus, adnexa: Normal. Included lung bases: Clear. Unenhanced liver and spleen, as far as included: Unremarkable. Gallbladder, pancreas, adrenal glands: Status post cholecystectomy. The pancreas and adrenal glands are normal. Bowel: Scattered colonic diverticuli without evidence of diverticulitis. The appendix is normal. There is no wall thickening or obstruction. Peritoneal cavity: No free fluid, free air, mass, collection, or inflammatory change. Abdominal wall: Intact. Lymphovascular: A small number of lymph nodes are scattered throughout the mesentery, none of which are pathologically enlarged. There is minimal calcified atherosclerotic disease in the abdomen and pelvis. The aorta is normal in caliber.. Musculoskeletal: Normal. Impression: 1. No urinary tract calculi or obstruction.. 2. No acute abnormality in the abdomen or pelvis. 3. Indeterminate 1.3 cm exophytic lesion of the lower pole of the right kidney. In this age group would favor proteinaceous cyst. If desired, formal characterization could be performed with renal mass MRI to exclude solid enhancing lesion; ultrasound unlikely to be helpful given patient body habitus. 4. Mild diverticulosis. 5. Prior cholecystectomy. I have personally reviewed the images and the above interpretation and agree with the findings. Procedure Note Willy Panchal MD - 09/11/2017 CT RENAL COLIC 09/11/2017 1:24 AM Signs and Symptoms/Comments: Right flank pain Technique: Axial CT images obtained from abdomen immediately superior to level of kidneys through the pelvis without administration of contrast of any kind. Sagittal and coronal reformats generated. Comparison: None available. 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 No calcified urinary tract calculi are identified. There is no hydronephrosis. The ureters are normal in course and caliber. Bladder: Empty. Uterus, adnexa: Normal. Included lung bases: Clear. Unenhanced liver and spleen, as far as included: Unremarkable. Gallbladder, pancreas, adrenal glands: Status post cholecystectomy. The pancreas and adrenal glands are normal. Bowel: Scattered colonic diverticuli without evidence of diverticulitis. The appendix is normal. There is no wall thickening or obstruction. Peritoneal cavity: No free fluid, free air, mass, collection, or inflammatory change. Abdominal wall: Intact. Lymphovascular: A small number of lymph nodes are scattered throughout the mesentery, none of which are pathologically enlarged. There is minimal calcified atherosclerotic disease in the abdomen and pelvis. The aorta is normal in caliber.. Musculoskeletal: Normal. Impression: 1. No urinary tract calculi or obstruction.. 2. No acute abnormality in the abdomen or pelvis. 3. Indeterminate 1.3 cm exophytic lesion of the lower pole of the right kidney. In this age group would favor proteinaceous cyst. If desired, formal characterization could be performed with renal mass MRI to exclude solid enhancing lesion; ultrasound unlikely to be helpful given patient body habitus. 4. Mild diverticulosis. 5. Prior cholecystectomy. I have personally reviewed the images and the above interpretation and agree with the findings. Robb Segovia PA-C IM CT ORDERABLE S * (ABNORMAL) HEMAGRAM AND DIFFERENTIAL (09/11/2017 0:02 EDT) WBC 14.92(H) 4.0 - 12.4 K/cmm 09/11/2017 0:23 EDT [facility] RBC 4.60 3.86 - 5.04 M/cmm 09/11/2017 0:23 EDT [facility] Hemoglobin 13.3 11.6 - 15.2 gm/dl 09/11/2017 0:23 [facility] HCT 39.1 34.9 - 44.4 % 09/11/2017 0:23 [facility] MCV 85 81 - 98 fl 09/11/2017 0:23 [facility] MCH 28.9 26.7 - 33.3 pg 09/11/2017 0:23 [facility] MCHC 34.0 32.1 - 35.9 gm/dl 09/11/2017 0:23 [facility] RDW-CV 13.0 <14.7 % 09/11/2017 0:23 [facility] RDW-SD 40.0 <50.4 fl 09/11/2017 0:23 [facility] PLT 310 141 - 377 K/cmm 09/11/2017 0:23 [facility] MPV 9.5 9.5 - 12.7 fl 09/11/2017 0:23 [facility] Neutrophils 58.0 % 09/11/2017 0:47 [facility] Lymphocytes 36.0 % 09/11/2017 0:47 [facility] Monocytes 3.0 % 09/11/2017 0:47 [facility] Eosinophils 3.0 % 09/11/2017 0:47 [facility] ABS Neutrophils 8.65 2.20 - 8.85 K/cmm 09/11/2017 0:47 [facility] ABS Lymphs 5.37(H) 1.09 - 3.30 K/cmm 09/11/2017 0:47 [facility] ABS Monocytes 0.45 0.1 - 0.8 K/cmm 09/11/2017 0:47 [facility] ABS Eosinophils 0.45 0.03 - 0.61 K/cmm 09/11/2017 0:47 [facility] Type of Diff: Manual 09/11/2017 0:47 [facility] Blood specimen (specimen) BLOOD SPECIMEN / Unknown 09/11/2017 0:02 EDT 09/11/2017 0:14 EDT Robb SCHROEDERC PACKAGES & DNA P ROBE ORDERABLES Performing Organization Address City/[facility]/ZIP Co de Phone Number [facility] [address] [place] [address] * (ABNORMAL) BASIC METABOLIC PANEL (09/11/2017 0:02 EDT) Sodium 141 136 - 145 mEq/L 09/11/2017 0:39 EDT [facility] Potassium 4.1 3.5 - 5.0 mEq/L 09/11/2017 0:39 EDT [facility] Chloride 107 96 - 110 mEq/L 09/11/2017 0:39 EDT [facility] CO2 24 22 - 32 mEq/L 09/11/2017 0:39 EDT [facility] BUN 14 10 - 26 mg/dl 09/11/2017 0:39 EDT [facility] Creatinine 0.78 0.52 - 1.04 mg/dl 09/11/2017 0:39 EDT [facility] GFR, Calculated 99 >60 ml/min/1.7 3m2 09/11/2017 0:39 EDT [facility] Comment: eGFR calculated using CKD-EPI equation for non Americans. Multiply eGFR by 1.16 for Americans. Calcium 9.6 8.5 - 10.5 mg/dl 09/11/2017 0:39 EDT [facility] Calculated Calcium 9.8 8.5 - 10.5 mg/dl 09/11/2017 0:39 EDT [facility] Glucose, Serum 141(H) 70 - 100 mg/dl 09/11/2017 0:39 EDT [facility] Fasting? Unknown 09/11/2017 0:14 EDT [facility] Blood specimen (specimen) BLOOD SPECIMEN / Unknown 09/11/2017 0:02 EDT 09/11/2017 0:14 EDT Robb SCHROEDERC CHEMISTRY & BLOO D GAS ORDERABLES Performing Organization Address City/[facility]/ZIP Co de Phone Number [facility] [address] [place] [address] * BACTERIAL CULTURE, URINE (09/11/2017 0:02 EDT) Result Mixed organisms, culture interpretation difficult. Multiple bacterial morphotypes present. Suggest appropriate recollection with timely delivery to the laboratory, if clinically indicated. 09/13/2017 10:14 EDT [facility] Urine specimen (specimen) URINE / Unknown 09/11/2017 0:02 EDT 09/11/2017 8:21 EDT Robb Segovia PA-C MICROBIOLOGY - G ENERAL ORDERABLES [facility] [address] [place] [address] * (ABNORMAL) URINALYSIS MICROSCOPIC ONLY (09/11/2017 0:02 EDT) WBC, UA 10 to 50 0 - 5 /HPF 09/11/2017 0:53 EDT [facility] RBC, UA 1 to 5 0 - 5 /HPF 09/11/2017 0:53 T [facility] Squam Epithel, UA Frequent(A) None seen /HPF 09/11/2017 0:53 T [facility] Renal Epithel, UA None seen None seen /HPF 09/11/2017 0:53 T [facility] Bacteria, UA Rare(A) None seen /HPF 09/11/2017 0:53 T [facility] Crystals, UA None seen /HPF 09/11/2017 0:53 T [facility] Hyaline Casts, UA Rare /LPF 09/11/2017 0:53 T [facility] Comment:Hyaline UA Comment Microscopic results 09/10/2017 23:44 T [facility] Comment: are unreliable on urines unrefrig >2hrs or refrig >8hrs. Mucus, UA Present 09/11/2017 0:53 T [facility] Additional Findings Few WBC clumps 09/11/2017 0:53 EDT [facility] Urine specimen (specimen) URINE / Unknown 09/11/2017 0:02 EDT 09/11/2017 0:34 EDT Robb Segovia PA-C URINALYSIS ORDER ROMEO Performing Organization Address [facility] Co de Phone Number [facility] [address] [place] [address] * POCT TEST, CLINITEK (09/10/2017 22:42 EDT) UPT Result Neg Neg 09/10/2017 22:52 EDT [facility] horse buyer ID [id number] 09/10/2017 22:52 EDT [facility] Comment:Test performed at [facility] Urine specimen (specimen) URINE / Unknown 09/10/2017 22:42 EDT 09/10/2017 22:52 EDT Alisha Arzate MD POINT OF CARE TEST ORDERABLES Performing Organization Address [facility] Co de Phone Number [facility] [address] [place] [address] * (ABNORMAL) POCT URINE DIPSTICK (09/10/2017 22:41 EDT) Color YELLOW 09/10/2017 22:47 EDT [facility] Clarity, UA SLIGHTLY CLOUDY 09/10/2017 22:47 T [facility] Glucose Neg Neg 09/10/2017 22:47 T [facility] Bilirubin Neg Neg 09/10/2017 22:47 T [facility] Ketones Trace(A) Neg 09/10/2017 22:47 T [facility] Specific [place] >=1.030 1.001 - 1.035 09/10/2017 22:47 T [facility] Blood Trace(A) Neg 09/10/2017 22:47 T [facility] pH 6.5 4.6 - 8.0 09/10/2017 22:47 T [facility] Protein 1+(A) Neg 09/10/2017 22:47 EDT [facility] Urobilinogen 1.0 0.2 - 1.0 E.U./dl 09/10/2017 22:47 EDT [facility] Nitrite Neg Neg 09/10/2017 22:47 EDT [facility] Leuk Esterase 1+(A) Neg 09/10/2017 22:47 EDT [facility] horse buyer ID [id number] 09/10/2017 22:47 EDT [facility] Comment:Test performed at [facility] Urine specimen (specimen) URINE / Unknown 09/10/2017 22:41 EDT 09/10/2017 22:47 EDT Alisha Arzate MD POINT OF CARE TEST ORDERABLES [facility] [address] [place] [address] documented in this encounter Visit Diagnoses Diagnosis Pyelonephritis- Primary Pyelonephritis, unspecified documented in this encounter Administered Medications Inactive Administered Medications - up to 3 most recent administrations Medication Order MAR Action Action Date Dose Rate Site Ciprofloxacin 500 mg Tab STARTER PACK 1 Package, oral, NOW X1, 1 dose, On Sat09/11/17 at 0145, STAT Given 09/11/2017 2:08 EDT 1 Package ketOROLAC (TORADOL) injection 15 mg 15 mg, intravenous, NOW X1, 1 dose, On Sat09/11/17 at 0000, STAT Given 09/11/2017 0:33 EDT 15 mg ondansetron (PF) (ZOFRAN) injection 4 mg 4 mg, intravenous, NOW X1, 1 dose, On Sat09/11/17 at 0000, STAT Given 09/11/2017 0:33 EDT 4 mg sodium chloride 0.9 % BOLUS 1,000 mL 1,000 mL, intravenous, NOW X1, 1 dose, On Sat09/11/17 at 0000, STAT New Bag 09/11/2017 0:34 EDT 1,000 mL documented in this encounter Historical Medications * This list may reflect changes made after this encounter. Medication Sig Dispensed Refills Start Date End Date metFORMIN (GLUCOPHAGE) 500 mg tablet Take 1,000 mg by mouth 2 times daily. levothyroxine (SYNTHROID) 112 mcg tabletIndications:Take 2 tabs Take 112 mcg by mouth daily. 05/29/2018 added in this encounter Active and Recently Administered Medications Times are shown in EDT. Scheduled Medication Order 09/09/2017 09/10/2017 09/11/2017 Ciprofloxacin 500 mg Tab STARTER PACK (COMPLETED) 1 Package, oral, NOW X1, 1 dose, On Sat09/11/17 at 0145, STAT 0208 (Given - Provid er: Brad Love, RN) ketOROLAC (TORADOL) injection 15 mg (COMPLETED) 15 mg, intravenous, NOW X1, 1 dose, On Sat09/11/17 at 0000, STAT 0033 (Given - Provid er: Merlyn Rendon, ARVIND) ondansetron (PF) (ZOFRAN) injection 4 mg (COMPLETED) 4 mg, intravenous, NOW X1, 1 dose, On Sat09/11/17 at 0000, STAT 0033 (Given - Provid er: Merlyn Rendon, ARVIND) sodium chloride 0.9 % BOLUS 1,000 mL (COMPLETED) 1,000 mL, intravenous, NOW X1, 1 dose, On Sat09/11/17 at 0000, STAT 0034 (New Bag - Prov ider: Merlyn Rendon, ARVIND) documented in this encounter Orders Nursing Count Last Ordered Date First Orde red Date INSERT PERIPHERAL IV 1 09/10/2017 documented in this encounter Care Teams Clinical Cytopathologist Relationship Specialty Start Date End Date None, Provider PCP - General 08/29/17 04/29/18 documented as of this encounter
--- OUTSIDE RECORDS SUMMARY | 2024-07-02 18:54 | XMS_ITS | Encounter Summary ---
Author Organization [facility] Address [address] [place] [address] Care Team Providers Care Rope Twisting Machine Operator Name Role Phone Emily Bejarano Lena AWAD Primary Care Provider [phone] Reason for Referral * PROSTHODONTIST (Other (Specify in Question)) - New Request Specialty Diagnoses / Procedures Referred By Luiza alvarez Referred To Contact Diagnoses Pre-existing type 2 diabetes mellitus during in second trimester Procedures FPC FOLLOW-UP Johnnie Davies MD [address] [place] [phone] Referral ID Status Reason Start Date Expiration Date V isits Requested Visits Authorized [id number] New Request 07/03/2018 1 1 * Cardiology (Other (Specify in Question)) - New Request Specialty Diagnoses / Procedures Referred By Luiza alvarez Referred To Contact Diagnoses Pre-existing type 2 diabetes mellitus during in second trimester Procedures FPC FOLLOW-UP ECHO (PEDI CARD) Johnnie Davies MD [address] [place] [phone] Referral ID Status Reason Start Date Expiration Date V isits Requested Visits Authorized [id number] New Request 07/03/2018 1 1 Reason for Visit * Reason Comments Routine Visit Encounter Details Date Type Department Care Team (Late st Contact Info) Description 07/03/2018 16:00 EDT Routine [facility] Obstetrics & Midwifery - [address] [id number] Johnnie Davies MD [address] [facility], [facility], [address] [place] [address] GA: 22w2d Social History Tobacco Use Types Packs/Day Years [...] as of this encounter Progress Notes * Leidy Paul MBBS - 07/03/2018 1600 EDT Subjective Yesenia Fragoso is a 37 y.o. at 22w2d here for a routine visit. Movement:Present Contractions / Labor:None Vaginal Bleeding: None Leakage of Fluid: None Objective Assessment 37 y.o. at 22w2d with Type 2 Diabetes on Metformin, previous C section, Morbid Obesity herefor a routine visit. Plan Type 2 diabetes mellitus affecting in second trimester, antepartum Does not check sugars consistently due poor social circumstance Noted Fastings: 89-110; 2hr pp: 99-123 Advised patient to try to be more consistent with sugars (discussed 1 hr vs 2 hr if this is more convenient) Advised to call in sugars weekly On ASA 162mg daily Had anatomy and echo today- both suboptimal - for repeat for both in 4 weeks (ordered) For HbA1c (ordered) Acquired hypothyroidism On Levothyroxine 224mcg daily Last TSH (05/22): 0.13 For repeat TSH,FT4 (ordered) Supervision of high risk , antepartum Wants repeat repeat CS & BTL Will sign papers at next visit Discussed the signs and symptoms of pre-/term labor and when to call the office. Follow-up in 2 or 4 weeks (with her follow up US) per patient convenience. Seen with Dr. Davies. LATOSHA De Leon Maternal Medicine Attending Addendum/Attestation: I saw Yesenia Tracy Richmond with Dr. Paul at the time of the visit. I agree with the findings and the plan of care documented in Dr. Paul's note. Strongly encouraged more fingersticks, for now witll continue current dosing of metformin. Plan for pt to call sugars in in 2 weeks, with US and f/u echo in 4 weeks, with MFM appt. JOHNNIE DAVIES MD documented in this encounter Miscellaneous Notes * Assessment & Plan Note - Leidy Paul MBBS - 07/03/2018 1710 EDT Associated Problem(s): Supervision of high risk , antepartum Wants repeat repeat CS & BTL Will sign papers at next visit * Assessment & Plan Note - Leidy Paul MBBS - 07/03/2018 1709 EDT Associated Problem(s): Acquired hypothyroidism (Resolved 09/09/2018) On Levothyroxine 224mcg daily Last TSH (05/22): 0.13 For repeat TSH,FT4 (ordered) * Assessment & Plan Note - Leidy Paul MBBS - 07/03/2018 1704 EDT Associated Problem(s): Type 2 diabetes mellitus affecting in second trimester, antepartum Does not check sugars consistently due poor social circumstance Noted Fastings: 89-110; 2hr pp: 99-123 Advised patient to try to be more consistent with sugars (discussed 1 hr vs 2 hr if this is more convenient) Advised to call in sugars weekly On ASA 162mg daily Had anatomy and echo today- both suboptimal - for repeat for both in 4 weeks (ordered) For HbA1c (ordered) documented in this encounter Plan of Treatment Not on file documented as of this encounter Procedures Procedure Name Priority Date/Time Associated Diagnosis Comments FPC FOLLOW-UP Routine 07/30/2018 11:53 EDT Pre-existing type 2 diabetes mellitus during in second trimester FPC FOLLOW-UP ECHO (PEDI CARD) Routine 07/30/2018 11:50 EDT Pre-existing type 2 diabetes mellitus during in second trimester documented in this encounter Results * HEMOGLOBIN A1C (08/07/2018 12:28 EDT) Hemoglobin A1C 5.2 % 08/07/2018 14:41 EDT [facility] Comment: Reference Range: <5.7% Normal 5.7-6.4% Prediabetes =>6.5% Diagnostic for diabetes (if confirmed) Goals for glycemic control in diabetes ADA 2017 For non adults with diabetes: ?? Target <7.0% For children and adolescents with type 1 diabetes: ?? Target <7.5% More or less stringent targets may be appropriate for individual patients. Est Avg Glucose 103 mg/dl 8 14:41 EDT [facility] Comment: eAG represents the A1c result expressed as average glucose in mg/dl. Blood specimen (specimen) BLOOD SPECIMEN / Unknown 08/07/2018 12:28 EDT 08/07/2018 13:07 EDT Leidy REINA CHEMISTRY & BLOOD GAS ORDERABLES [facility] [address] [place] [address] * T4 FREE (08/07/2018 12:28 EDT) T4, Free 1.1 0.8 - 2.2 ng/dl 08/07/2018 13:53 EDT [facility] Blood specimen (specimen) BLOOD SPECIMEN / Unknown 08/07/2018 12:28 EDT 08/07/2018 13:07 EDT Leidy MARCIAL CHEMISTRY & BLOOD GAS ORDERABLES Performing Organization Address [facility] Co de Phone Number [facility] [address] [place] [address] * TSH (08/07/2018 12:28 EDT) TSH 3.04 0.47 - 4.68 uIU/ml 08/07/2018 14:04 EDT [facility] Comment: The results of this assay can be falsely lowered due to the consumption of Biotin. Blood specimen (specimen) BLOOD SPECIMEN / Unknown 08/07/2018 12:28 EDT 08/07/2018 13:07 EDT Leidy Paul [facility]MI[facility] BLOOD GAS ORDERABLES Performing Organization Address [facility] de Phone Number [facility] [address] [place] [address] * FPC FOLLOW-UP (07/30/2018 11:53 EDT) Anatomical Region Laterality Modality Other 07/30/2018 11:5 3 EDT 07/30/2018 12:26 EDT Narrative 07/30/2018 12:26 EDT Indication Poorly seen anatomy (RVOT, LVOT, Arch, Septum, Left Hand, Spine, Lo lying placenta ) BMI 47.84 . Advanced maternal age Diabetes, pregestational, type 2; New finding Right pyelectasis. History ======= General History Height 180 cm Height (ft) ?5 ft Height (in) ?11 in Previous Outcomes ?3 Para ?? 2 Miller children born (T) ?2 Miller children born (P) ?0 Abortions (A) ??0 Miller living children (L) ??2 Other: Prior history of Number of fetuses: 1. Maternal Assessment Height 180 cm Height (ft) ?5 ft Height (in) ?11 in Physical Exam Initial weight 156 kg Initial weight (lb) ?343 lb Initial BMI ?47.84 kg/m? Dating ======= Stated Dating on: ?03/20/2018 GA at stated dating date 7 w + 2 d GA by stated dating ??26 w + 1 d KADE by stated dating: ?11/04/2018 Ultrasound examination on: 07/30/2018 GA by U/S based upon: ??AC, BPD, Femur, HC GA by U/S ??27 w + 2 d KADE by U/S: ?10/27/2018 Assigned: ??Dating performed on 07/03/2018, based on the external assessment (on 03/20/2018) Assigned GA ?26 w + 1 d Assigned KADE: ??11/04/2018 General Evaluation Cardiac activity: Present. FHR 132 bpm. movements: visualized. Presentation: cephalic. Placenta: posterior saeid. Amniotic fluid: Amount of AF: normal. MVP 5.2 cm. WILLY 15.4 cm. Q1 2.9 cm, Q2 3.6 cm, Q3 3.6 cm, Q4 5.2 cm. Anatomy Cranium: ?? normal Lateral ventricles: ?normal Midline falx: ??normal Cranium: ?? normal shape and size 4-chamber view: ?normal LVOT: ??normal LVOT: ??Appears normal in suboptimal views Aortic arch: ?? normal Aortic arch: ?? Appears normal in suboptimal views SVC: ?? not adequately visualized IVC: ?? normal 3-vessel view: not adequately visualized [id number] view: not visualized Stomach: ?? normal Kidneys: ?? normal Bladder: ?? normal Rt kidney: abnormal Rt kidney: dilated renal pelvis Lt kidney: normal Cervical spine: ?normal Thoracic spine: ?normal Sacral spine: ??normal Skeleton: ??normal Rt hand: ?? normal Lt hand: ?? normal Gender: ?male Wants to know gender: ??yes Biometry Biometry BPD ?66.5 mm 63% 26w 6d Hadlock OFD ?89.4 mm 98% 28w 6d Nadege HC 253.2 mm ?75% 27w 1d [place] AC 233.2 mm ?84% 27w 5d Hadlock Femur ??51.7 mm 96% 27w 5d Nadege Humerus ?49.4 mm 98% 29w 0d Nadege EFW ?1,094 g 71% Man Calculated by: Hadlock ([id number]) EFW (lb) ?? 2 lb EFW (oz) ?? 7 oz Cephalic index 0.74 ?11% Nicolaides HC / AC ?1.09 FL / BPD ?? 0.78 FL / AC ?0.22 MVP ?5.2 cm WILLY ?15.4 cm FHR ?132 bpm Head / Face / Neck Food Safety Coordinator 4.8 mm Urinary Tract Rt Renal pelvis ap 5.1 mm Lt Renal pelvis ap 3.0 mm Method ======== Transabdominal ultrasound examination, Voluson E10. View: Limited by maternal habitus. Limited by position. Impression [id number] Follow-up obstetrical ultrasound This is a miller gestation. The patient had an earlier Detailed scan and normal NIPT Follow up scan was performed for poorly seen anatomy. ( heart, spine, left hand, low lying placenta) The spine and left hand were visualized today. The placenta appears to be 2 cm from the cervical os and is no longer low lying. The heart was evaluated with echo today. Please see separate report. A new finding of right pyelectasis is noted. RIGHT KIDNEY AP renal pelvis diameter: 5.1 Central calyceal dilation: absent Peripheral calyceal dilation: absent Parenchymal thickness: normal Parenchymal appearance (echogenicity, cysts): normal Ureters: normal Bladder: normal Unexplained oligohydramnios: No Urinary Tract Dilation (UTD) risk stratification: UTD A1 (low risk) biometry is consistent with prior dating. Except where noted above, the anatomy was not reviewed in detail as this is a follow-up study and the anatomy was previously assessed. Normal fluid and movement are noted. The patient had normal NIPT and is unable to stay for consult for UTD today. Will have f/u ultrasound in 4 weeks and can have MFM consult at that time if persists. Follow-up Recommend follow-up at 4 weeks to reassess right pyelectasis and growth. Comment ========= This follow-up has been scheduled. DATE OF SERVICE: 07/30/2018 Procedure Note Sharmaine Quiroga MD - 07/30/2018 Indication Poorly seen anatomy (RVOT, LVOT, Arch, Septum, Left Hand, Spine, Lo lying placenta ) BMI 47.84 . Advanced maternal age Diabetes, pregestational, type 2; New finding Right pyelectasis. History ======= General History Height 180 cm Height (ft) 5 ft Height (in) 11 in Previous Outcomes 3 Para 2 Miller children born (T) 2 Miller children born (P) 0 Abortions (A) 0 Miller living children (L) 2 Other: Prior history of Number of fetuses: 1. Maternal Assessment Height 180 cm Height (ft) 5 ft Height (in) 11 in Physical Exam Initial weight 156 kg Initial weight (lb) 343 lb Initial BMI 47.84 kg/m? Dating ======= Stated Dating on: 03/20/2018 GA at stated dating date 7 w + 2 d GA by stated dating 26 w + 1 d KADE by stated datin11/04/2018 Ultrasound examination on: 07/30/2018 GA by U/S based upon: AC, BPD, Femur, HC GA by U/S 27 w + 2 d KADE by U/S: 10/27/2018 Assigned: Dating performed on 07/03/2018, based on the external assessment (on 03/20/2018) Assigned GA 26 w + 1 d Assigned KADE: 11/04/2018 General Evaluation Cardiac activity: Present. FHR 132 bpm. movements: visualized. Presentation: cephalic. Placenta: posterior saeid. Amniotic fluid: Amount of AF: normal. MVP 5.2 cm. WILLY 15.4 cm. Q1 2.9 cm, Q2 3.6 cm, Q3 3.6 cm, Q4 5.2 cm. Anatomy Cranium: normal Lateral ventricles: normal Midline falx: normal Cranium: normal shape and size 4-chamber view: normal LVOT: normal LVOT: Appears normal in suboptimal views Aortic arch: normal Aortic arch: Appears normal in suboptimal views SVC: not adequately visualized IVC: normal 3-vessel view: not adequately visualized [id number] view: not visualized Stomach: normal Kidneys: normal Bladder: normal Rt kidney: abnormal Rt kidney: dilated renal pelvis Lt kidney: normal Cervical spine: normal Thoracic spine: normal Sacral spine: normal Skeleton: normal Rt hand: normal Lt hand: normal Gender: male Wants to know gender: yes Biometry Biometry BPD 66.5 mm 63% 26w 6d Hadlock OFD 89.4 mm 98% 28w 6d Nadege HC 253.2 mm 75% 27w 1d [place] AC 233.2 mm 84% 27w 5d Hadlock Femur 51.7 mm 96% 27w 5d Nadege Humerus 49.4 mm 98% 29w 0d Nadege EFW 1,094 g 71% Man Calculated by: Hadlock ([id number]) EFW (lb) 2 lb EFW (oz) 7 oz Cephalic index 0.74 11% Nicolaides HC / AC 1.09 FL / BPD 0.78 FL / AC 0.22 MVP 5.2 cm WILLY 15.4 cm FHR 132 bpm Head / Face / Neck Food Safety Coordinator 4.8 mm Urinary Tract Rt Renal pelvis ap 5.1 mm Lt Renal pelvis ap 3.0 mm Method ======== Transabdominal ultrasound examination, Voluson E10. View: Limited by maternal habitus. Limited by position. Impression [id number] Follow-up obstetrical ultrasound This is a miller gestation. The patient had an earlier Detailed scan and normal NIPT Follow up scan was performed for poorly seen anatomy. ( heart, spine, left hand, low lying placenta) The spine and left hand were visualized today. The placenta appears to be 2 cm from the cervical os and is no longer low lying. The heart was evaluated with echo today. Please see separate report. A new finding of right pyelectasis is noted. RIGHT KIDNEY AP renal pelvis diameter: 5.1 Central calyceal dilation: absent Peripheral calyceal dilation: absent Parenchymal thickness: normal Parenchymal appearance (echogenicity, cysts): normal Ureters: normal Bladder: normal Unexplained oligohydramnios: No Urinary Tract Dilation (UTD) risk stratification: UTD A1 (low risk) biometry is consistent with prior dating. Except where noted above, the anatomy was not reviewed in detail as this is a follow-up study and the anatomy was previously assessed. Normal fluid and movement are noted. The patient had normal NIPT and is unable to stay for consult for UTD today. Will have f/u ultrasound in 4 weeks and can have MFM consult at that time if persists. Follow-up Recommend follow-up at 4 weeks to reassess right pyelectasis and growth. Comment ========= This follow-up has been scheduled. DATE OF SERVICE: 07/30/2018 Johnnie Davies MD IMG [facility]PC OR DERABLES * FPC FOLLOW-UP ECHO (PEDI CARD) (07/30/2018 11:50 EDT) Anatomical Region Laterality Modality Other 07/30/2018 11:5 0 EDT Narrative 07/30/2018 14:26 EDT [facility] [address] [place] [address] Date of study: 07/30/2018 Transabdominal Echocardiography Complete 2D, complete spectral Doppler, and color Doppler *STUDY CONCLUSIONS* Summary: - Follow up echocardiogram at 26 weeks +1 day gestation. - Normal appearing chamber size and function in limited views. - Normal arterial and venous connections in limited views. - Normal appearing aortic arch in limited transvers views. ??Unable to obtain sagittal arch images due to technical limitations. - Normal Doppler study. - No arrhythmias noted during the exam. - No evidence of hydrops. - Severe technical limitations due to adverse position and ??maternal habitus. - The results of the study, its limitations and the limitations of ??echocardiography in general were reviewed. The inability to diagnose ??patent ductus arteriosus, some atrial defects, ventricular septal ??defects and coarctation was discussed. Further echocardiography ??is not recommended unless new concerns arise. *PATIENT PRESENTATION* Age: ?37yr S/D Pressure: Location: Facility: ? [facility] Attending: ?Thaddeus Gunter MD Referring: ?Earnestine Davies MD Performing: ?? Thaddeus Gunter MD Ordering: ? Earnestine Davies MD Test start time: ??10:10 AM. Test stop time: ??10:55 AM. *PROCEDURE DATA* Procedure information: ??Pertinent images and digital data are archived for permanent storage and are available for subsequent review. ??Study status: ??Routine. Transabdominal echocardiography. ??Complete 2D, complete spectral Doppler, and color Doppler. ??Transabdominal echocardiography for congenital heart disease evaluation. Views were limited by position, activity, and maternal obesity. Maternal age: ?37yr. ??: ?3. ??Parity: ?2. ??Expected delivery date: ?11/04/2018. ??Gestational age: ?26wk. ??Study completion: ??The patient tolerated the procedure well. *INDICATIONS AND HISTORY* Indications: ?? (O99.282) Endocrine, nutritional and metabolic diseases complicating , second trimester. History: ?? Risk factors: ?? History of maternal diabetes. *CARDIAC ANATOMY* DESCRIPTION ? One fetus is present. The rhythm is sinus rhythm, with no apparent ectopy, an atrial rate of 134bpm, an AV conduction interval of 120ms, a ventricular rate of 134bpm, and a heart rate of 134bpm. VEINS AND ATRIA Left atrium: ??The atrium is normal in size. Right atrium: ??The atrium is normal in size. Systemic veins: ??Normal systemic venous drainage. Pulmonary veins: ??At least one pulmonary vein is seen entering the left atrium from each side. A-V CANAL Tricuspid valve: ??The annulus appears normal-sized. Quantitative assessment limited by patient imaging. ?There is normal biphasic inflow spectral Doppler. There is no significant regurgitation. Mitral valve: ??The annulus appears normal-sized. Quantitative assessment limited by patient imaging. ?There is normal biphasic inflow spectral Doppler. There is no regurgitation. VENTRICLES Right ventricle: ??The cavity size is normal. Systolic function is qualitatively normal. Ventricular septum: ?? No evidence for a significant ventricular septal defect. Left ventricle: ??The cavity size is normal. Systolic function is qualitatively normal. CONOTRUNCUS Aortic valve: ? Transvalvular velocity is within the normal range. There is no regurgitation. Pulmonary valve: ?Transvalvular velocity is within the normal range. There is no regurgitation. GREAT ARTERIES Aorta: ??Normal unobstructed left-sided aortic arch. The arch appears normal-sized in limited transverse views. Sagittal views not obtain due to adverse position and maternal habitus. Pulmonary arteries: Main pulmonary artery: The artery arises normally. Left pulmonary artery: The artery is not well visualized. Right pulmonary artery: The artery is not well visualized. Systemic-pulmonary shunts: Patent ductus arteriosus. Shunt flow is right to left. PERICARDIUM There is no significant pericardial effusion. I have personally reviewed the images and have reviewed and edited the reported findings. Electronically signed by Thaddeus Gunter MD 07/30/2018 14:26 Procedure Note Thaddeus Gunter MD - 07/30/2018 Pediatric Cardiology [address] [place] [address] Date of study: 07/30/2018 Transabdominal Echocardiography Complete 2D, complete spectral Doppler, and color Doppler *STUDY CONCLUSIONS* Summary: - Follow up echocardiogram at 26 weeks +1 day gestation. - Normal appearing chamber size and function in limited views. - Normal arterial and venous connections in limited views. - Normal appearing aortic arch in limited transvers views. Unable to obtain sagittal arch images due to technical limitations. - Normal Doppler study. - No arrhythmias noted during the exam. - No evidence of hydrops. - Severe technical limitations due to adverse position and maternal habitus. - The results of the study, its limitations and the limitations of echocardiography in general were reviewed. The inability to diagnose patent ductus arteriosus, some atrial defects, ventricular septal defects and coarctation was discussed. Further echocardiography is not recommended unless new concerns arise. *PATIENT PRESENTATION* Age: 37yr S/D Pressure: Location: Facility: [facility] Attending: Thaddeus Gunter MD Referring: Earnestine Davies MD Performing: Thaddeus Gunter MD Ordering: Earnestine Davies MD Test start time: 10:10 AM. Test stop time: 10:55 AM. *PROCEDURE DATA* Procedure information: Pertinent images and digital data are archived for permanent storage and are available for subsequent review. Study status: Routine. Transabdominal echocardiography. Complete 2D, complete spectral Doppler, and color Doppler. Transabdominal echocardiography for congenital heart disease evaluation. Views were limited by position, activity, and maternal obesity. Maternal age: 37yr. : 3. Parity: 2. Expected delivery date: 11/04/2018. Gestational age: 26wk. Study completion: The patient tolerated the procedure well. *INDICATIONS AND HISTORY* Indications: (O99.282) Endocrine, nutritional and metabolic diseases complicating , second trimester. History: Risk factors: History of maternal diabetes. *CARDIAC ANATOMY* DESCRIPTION One fetus is present. The rhythm is sinus rhythm, with no apparent ectopy, an atrial rate of 134bpm, an AV conduction interval of 120ms, a ventricular rate of 134bpm, and a heart rate of 134bpm. VEINS AND ATRIA Left atrium: The atrium is normal in size. Right atrium: The atrium is normal in size. Systemic veins: Normal systemic venous drainage. Pulmonary veins: At least one pulmonary vein is seen entering the left atrium from each side. A-V CANAL Tricuspid valve: The annulus appears normal-sized. Quantitative assessment limited by patient imaging. There is normal biphasic inflow spectral Doppler. There is no significant regurgitation. Mitral valve: The annulus appears normal-sized. Quantitative assessment limited by patient imaging. There is normal biphasic inflow spectral Doppler. There is no regurgitation. VENTRICLES Right ventricle: The cavity size is normal. Systolic function is qualitatively normal. Ventricular septum: No evidence for a significant ventricular septal defect. Left ventricle: The cavity size is normal. Systolic function is qualitatively normal. CONOTRUNCUS Aortic valve: Transvalvular velocity is within the normal range. There is no regurgitation. Pulmonary valve: Transvalvular velocity is within the normal range. There is no regurgitation. GREAT ARTERIES Aorta: Normal unobstructed left-sided aortic arch. The arch appears normal-sized in limited transverse views. Sagittal views not obtain due to adverse position and maternal habitus. Pulmonary arteries: Main pulmonary artery: The artery arises normally. Left pulmonary artery: The artery is not well visualized. Right pulmonary artery: The artery is not well visualized. Systemic-pulmonary shunts: Patent ductus arteriosus. Shunt flow is right to left. PERICARDIUM There is no significant pericardial effusion. I have personally reviewed the images and have reviewed and edited the reported findings. Electronically signed by Thaddeus Gunter MD 07/30/2018 14:26 Johnnie Davies MD CARDIAC ECHO ORDERABLES documented in this encounter Visit Diagnoses Diagnosis Pre-existing type 2 diabetes mellitus during in second trimester- Primary Acquired hypothyroidism Unspecified hypothyroidism Type 2 diabetes mellitus affecting in second trimester, antepartum Hypothyroidism affecting , antepartum documented in this encounter Care Teams Rope Twisting Machine Operator Relationship Specialty Start Date End Date Emily Bejarano APRN [address] [place] [address] PCP - General 04/30/18 04/25/22 documented as of this encounter
--- OUTSIDE RECORDS SUMMARY | 2024-07-02 18:54 | XMS_ITS | Encounter Summary ---
Author Organization [facility] Address [address] [place] [address] Care Team Providers Care Financial Cost Analyst Name Role Phone Emily Bejarano DELMI Primary Care Provider [phone] Reason for Visit * Reason Comments Advice Only Encounter Details Date Type Department Care Team (Late st Contact Info) Description 04/30/2018 14:00 EDT Initial consult [facility] Obstetrics & Midwifery - [address] [id number] Loli Chun MD [address] [facility], [address] 4 [place] [address] Diabetes mellitus affecting in first trimester (Primary Dx) Discharge Disposition: Auto Discharge Social History Tobacco Use Types Packs/Day Years Used Date Smoking Tobacco: Every Day Cigarettes Smokeless Tobacco: Never Tobacco Cessation:Ready to Q uit: Yes; Counseling Given: Yes Comments:smoking 5 per day [...] Sign Reading Time Taken Comments Blood Pressure 114/69 04/30/2018 1411 EDT Pulse - - Temperature - - Respiratory Rate - - Oxygen Saturation - - Inhaled Oxygen Concentration - - Weight 141.4 kg (311 lb 12.8 oz) 04/30/2018 1411 EDT Height 180.3 cm (5' 10.98) 04/30/2018 1411 EDT Body Mass Index 43.51 04/30/2018 1411 EDT documented in this encounter Discharge Disposition Disposition Code Departure Means Destination Auto Discharge documented in this encounter Progress Notes * Loli Chun MD - 04/30/2018 1400 EDT Dear Pauline Gayle, Thank you for referring Ms Fragoso to the maternal- medicine clinic for consultation regarding her pregestational diabetes as well as obesity. As you know, she is a 37-year-old 3, para 2-0-0-2, currently at 13+2 weeks' gestation with an estimated date of delivery of 11/04/2018. Her past medical history is notable for type 2 diabetes. She states this was diagnosed a couple of years ago following her last . She has not regularly checked her blood sugars at home. She has been prescribed 500 mg of metformin daily, but only sporadically takes it. Since becoming , she has tried to check her blood sugars more, but can only recall blood sugars in the 130 to 180range. She has also been trying to be more compliant with her metformin therapy, although continuesto miss doses. I do not see that she has a recent hemoglobin A1c and she has received no care for her diabetes for a period of time, although she does state she had an eye examination within the lastyear that was normal. She denies a history of hypertension. She has hypothyroidism for which she takes levothyroxine. She told me she was taking two, 112-mg tablets daily, although her records indicate she takes 175 mcg daily. A TSH was slightly low at 0.29 about 4 weeks ago. She has a history of anxiety, depression, PTSD. 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 She has a history of depression. She has a history of asthma requiring daily Flovent as well as sometimesdaily rescue inhaler use. Her past obstetrical history is notable for a full-term spontaneous vaginal delivery in 2001 of a 7-pound 8-ounce infant. In 2009, she had a primary delivery for non-reassuring assessment at term of an 8-pound 3- ounce . Past surgical history is notable for laparoscopic cholecystectomy in 2016, as well as facial surgery following trauma. Current medications: Zofran, levothyroxine, metformin 500 mg daily, Flovent, albuterol p.r.n. and Tylenol p.r.n., vitamins. She has allergies to MORPHINE and DILAUDID. Social History: She smokes 4 to 5 cigarettes per day. She has a history of alcohol abuse, but none recently, and denies drug use. Family history is notable for a deep venous thrombosis in her mother, but no other clotting or bleeding disorders, history of dementia, coronary artery disease and diabetes. She denies a family history of defects, mental retardation or chromosome abnormalities. This has been complicated by nausea and vomiting, for which she received some relief fromZofran. She has had no bleeding or cramping. She had noninvasive screening that was negative. On examination today, her blood pressure is 114/69. Her weight is 311.8 pounds. heart tones are able to be auscultated in the 140s. I discussed the risks and management of diabetes during . Diabetes increases the risks preeclampsia, macrosomia with subsequent increased risks of shoulder dystocia and injury as well as risks of hypoglycemia and hyperbilirubinemia. Diabetes, particularly poorly-controlled diabetes, is also associated with an increased risk of stillbirth. The mainstay of therapy is management of hyperglycemia through nutritional counseling, monitoring of blood sugars and pharmacotherapy.At this point it is reasonable to continue her metformin, although I think it highly likely that she will require the addition of insulin to adequately manage her hyperglycemia. I stressed the importance of fasting and 2-hour postprandial blood glucose monitoring in order for us to best treat her and to ensure an optimal outcome. She is to start checking fasting and 2-hour postprandial blood sugars. She will continue her metformin 500 mg daily, and we will see her back in 2 weeks. There is roomto increase her metformin and I would increase her up to 1000 mg twice daily; however, I would havea low threshold to initiate insulin therapy to try to get her blood sugars under control as soon aspossible. She is at an increased risk for preeclampsia and I would recommend a baseline 24-hour urine protein as well as baseline preeclamptic labs be performed. She also needs a hemoglobin A1c and a fructosamine to monitor glycemic control. It is also recommended that she have a nutritional consultation with a airplane tester. A first trimester US is indicated, particularly if her HbA1C is elevated. This should be done before 14 weeks, followed by a detailed anatomic survey at 20 weeks, and echocardiogram at 24 weeks. Monthly growth ultrasounds are recommended beginning at 28 weeks with the additional of testing with weekly BPP at 32 weeks. Delivery is generally recommended 38-39 weeks. Hypothyroidism: Need for thyroid replacement therapy increases by about 30% in . It is unclear to me if her dose has been increased. Although her TSH 1 month ago was actually a little bit suppressed likely due to first-trimester cross reactivity with hCG. Repeat TSH is indicated at this time with adjustment of her thyroid replacement hormone with a goal TSH of less than 2.5. We discussed obesity in , discussing increased risk of excess gestational weight gain, preeclampsia, aieblauzd-ia-jpfqyeo diabetes, and delivery complications, especially associated with delivery and need for anesthesia and venous thromboembolism. Again, nutrition consultation is r ecommended as is minimal weight gain. The [place] [employer] recommends 39-vt-32-pound weight gain for woman with a BMI of greater than 30. Given her BMI is 47, I recommend weight gain in the lower range. Smoking cessation is encouraged and she is encouraged to call the [facility] quit line. She does have a prior delivery and as continues, ongoing discussion will need jennifer had about the appropriate mode of delivery. Although I have not reviewed her operative report, if she had a low-transverse section, she is a potential candidate for a trial of labor. Her asthma sounds suboptimally controlled and I recommend referral back to her primary care physician. I recommend transfer of care to Maternal Medicine for management. I have taken the liberty of scheduling a followup appointment with her here in 2 weeks with maternal- medicine, endocrinology and a airplane tester. At the end of our discussion, she has no further questions. Thank you again for referring her to us for consultation. We would be happy to answer any additional questions you may have. Thirty minutes was spent in ygke-um-xnkj time with the patient, with the entire 30 minutes spent discussing the above. Sincerely, documented in this encounter Plan of Treatment Not on file documented as of this encounter Visit Diagnoses Diagnosis Diabetes mellitus affecting in first trimester- Primary documented in this encounter Care Teams Financial Cost Analyst Relationship Specialty Start Date End Date Emily Bejarano APRN [address] [place] [phone] PCP - General 04/30/18 04/25/22 documented as of this encounter
--- OUTSIDE RECORDS SUMMARY | 2024-07-02 18:54 | XMS_ITS | Encounter Summary ---
Author Organization [facility] Address [address] [place] [address] Care Team Providers Care Rides Supervisor Name Role Phone Emily Bejarano APRN Primary Care Provider Encounter Details Date Type Department Care Team (Late st Contact Info) Description 05/22/2018 Orders Only [facility] Obstetrics & Midwifery - [facility] [address] [place], [place] [address] Willy Mccullough MD [address] [place] [address], [address] [place] [address] Supervision of high risk , [...] antepartum- Primary documented in this encounter Orders Lab Orders Without Results Count Last Ordered D ate First Ordered Date BACTERIAL CULTURE, URINE 1 05/22/2018 documented in this encounter Care Teams Rides Supervisor Relationship Specialty Start Date End Date Emily Bejarano APRN [address] [place] [place] [address] PCP - General 04/30/18 04/25/22 documented as of this encounter
--- OUTSIDE RECORDS SUMMARY | 2024-07-02 18:54 | XMS_ITS | Encounter Summary ---
Author Organization [facility] Address [address] [place] [address] Care Team Providers Care Securities Attorney Name Role Phone Emily Bejarano Lena AWAD Primary Care Provider [phone] Reason for Visit * Reason Comments Social Work Encounter Details Date Type Department Care Team (Late st Contact Info) Description 09/09/2018 Community Health Team [facility] Women's Services - [address] [address] Linda Muniz Social History Tobacco Use Types Packs/Day Years [...] as of this encounter Progress Notes * Linda Muniz - 09/09/2018 6331 EDT Spontaneous referral with the goal of supporting patient with transportation costs. SW left patient a voice mail. SW will check in with patient during her next OB appointment. [facility] Total Time: 5 minutes phone, 5 minutes charting Referral: n/a Follow up: n/a Status: Pending documented in this encounter Plan of Treatment Not on file documented as of this encounter Visit Diagnoses Not on filedocumented in this encounter Care Teams Securities Attorney Relationship Specialty Start Date End Date Emily Bejarano, DELMI [address] [place] [phone] PCP - General 04/30/18 04/25/22 documented as of this encounter
--- OUTSIDE RECORDS SUMMARY | 2024-07-02 18:54 | XMS_ITS | Encounter Summary ---
Author Organization [facility] Address [address] [place] [address] Care Team Providers Care Farm Equipment Assembler Name Role Phone Emily Bejarano DELMI Primary Care Provider [phone] Encounter Details Date Type Department Care Team (Late st Contact Info) Description 09/30/2018 Results Only [facility] Obstetrics & Midwifery - [facility] [address] [place] [address] Willy Mccullough MD [address] [place] [address], [address] [place] [address] Social History Tobacco Use Types [...] Procedure Name Priority Date/Time Associated Diagnosis Comments [facility] BIOPHYSICAL PROFILE 09/30/2018 10:15 EST documented in this encounter Results * [facility] BIOPHYSICAL PROFILE (09/30/2018 10:15 EST) Anatomical Region Laterality Modality Other 09/30/2018 10:1 5 EST 09/30/2018 11:17 EST Narrative 09/30/2018 11:17 EST Indication BMI 47.8; Advanced maternal age; Diabetes, pregestational, type 2; anomaly: urinary tract dilation, right kidney. History ======= General History Height 180 cm [...] kg/m? Number of fetuses: 1. Dating ======= Stated Dating on: ?03/20/2018 GA at stated dating date 7 w + 2 d GA by stated dating ??35 w + 0 d KADE by stated dating: ?11/04/2018 Assigned: ??Dating performed on 07/03/2018, based on the external assessment (on 03/20/2018) Assigned GA ?35 w + 0 d Assigned KADE: ??11/04/2018 General Evaluation Cardiac activity: Present. FHR 158 bpm. movements: visualized. Presentation: cephalic. Placenta: posterior. Amniotic Fluid Assessment Amount of AF: normal MVP 5.1 cm. WILLY 14.2 cm. Q1 5.1 cm, Q2 4.2 cm, Q3 4.9 cm, Q4 0.0 cm Biophysical Profile 2: breathing movements 2: Gross body movements 2: tone 2: Amniotic fluid volume 0: NST 07/04: Biophysical profile score Interpretation: normal DVD number 2007, Duration: 20 minutes Method ======== Voluson E10, Transabdominal ultrasound examination. View: Sufficient. Impression [id number] Biophysical Profile (including NST) This is a miller . Please see BPP score above. Follow-up Follow-up with weekly BPPs. Comment ========= This follow-up has been scheduled. DATE OF SERVICE: 09/30/2018 Procedure Note Loli Chun MD - 09/30/2018 Indication BMI 47.8; Advanced maternal age; Diabetes, pregestational, type 2; anomaly: urinary tract dilation, right kidney. History ======= General History Height 180 cm [...] kg/m? Number of fetuses: 1. Dating ======= Stated Dating on: 03/20/2018 GA at stated dating date 7 w + 2 d GA by stated dating 35 w + 0 d KADE by stated datin11/04/2018 Assigned: Dating performed on 07/03/2018, based on the external assessment (on 03/20/2018) Assigned GA 35 w + 0 d Assigned KADE: 11/04/2018 General Evaluation Cardiac activity: Present. FHR 158 bpm. movements: visualized. Presentation: cephalic. Placenta: posterior. Amniotic Fluid Assessment Amount of AF: normal MVP 5.1 cm. WILLY 14.2 cm. Q1 5.1 cm, Q2 4.2 cm, Q3 4.9 cm, Q4 0.0 cm Biophysical Profile 2: breathing movements 2: Gross body movements 2: tone 2: Amniotic fluid volume 0: NST 07/04: Biophysical profile score Interpretation: normal DVD number 2006, Duration: 20 minutes Method ======== Voluson E10, Transabdominal ultrasound examination. View: Sufficient. Impression [id number] Biophysical Profile (including NST) This is a miller . Please see BPP score above. Follow-up Follow-up with weekly BPPs. Comment ========= This follow-up has been scheduled. DATE OF SERVICE: 09/30/2018 Willy Mccullough MD [facility] ORDER ROMEO documented in this encounter Visit Diagnoses Not on filedocumented in this encounter Care Teams Farm Equipment Assembler Relationship Specialty Start Date End Date Emily Bejarano APRN [address] [place] [place] [address] PCP - General 04/30/18 04/25/22 documented as of this encounter
--- OUTSIDE RECORDS SUMMARY | 2024-07-02 18:54 | XMS_ITS | Encounter Summary ---
Author Organization [facility] Address [address] [place] [address] Care Team Providers Care Pediatric Oncologist Name Role Phone Emily Bejarano APRN Primary Care Provider [phone] Encounter Details Date Type Department Care Team (Late st Contact Info) Description 06/16/[address] [facility] Obstetrics & Midwifery - [facility] [address] [place] [address] Linda Gross, ARVIND Social History Tobacco Use Types Packs/Day Years [...] :33 EDT documented as of this encounter Ordered Prescriptions Prescription Sig Dispensed Refills Start Date End Da te blood glucose test strips One touch verio meter or any brand compatible with meter and covered by Pt's insurance. Tests QID. 100 Each 3 06/16/2018 documented in this encounter Plan of Treatment Not on file documented as of this encounter Visit Diagnoses Not on filedocumented in this encounter Care Teams Pediatric Oncologist Relationship Specialty Start Date End Date Emily Bejarano APRN [address] [place] [address] PCP - General 04/30/18 04/25/22 documented as of this encounter
--- OUTSIDE RECORDS SUMMARY | 2024-07-02 18:54 | XMS_ITS | Encounter Summary ---
Author Organization [facility] Address [address] [place] [address] Care Team Providers Care Zipper Joiner Name Role Phone Emily Bejarano DELMI Primary Care Provider [phone] Reason for Visit * Reason Onset Date Comments Other 07/02/2018 Encounter Details Date Type Department Care Team (Late st Contact Info) Description 07/02/2018 Telephone [facility] Obstetrics & Midwifery - [address] [address] Deborah Sepulveda, RN Other Social History Tobacco Use Types Packs/Day [...] Notes * Telephone Encounter - Deborah Sepulveda, ARVIND - 07/02/2018 1058 EDT Lakisha - Medicaid Nurse Supply Manager called and left [facility] regarding updating on pt info. Returned call to Lakisha. She states pt was seen in [facility] ER yesterday for bloody discharge. She wanted to make sure we get the note from her ER visit added to her file for her APV on 07/03. She also wanted to make the MDs/staff aware of her current situation that is causing pt a lot of stress. Pt has been forced to move into a small 3rd floor apartment in order to have the roof replaced on her current place of residence. Lakisha states pt has been moving boxes and would like staff to advise her during her APV of acceptable weight limits of lifting and/or activities. She states pt is also under high stress due to her to caring for her 2 high needs sons as well. pt had a home health visit yesterday prior to ER visit. Lakisha reported pt is having + movement today, fasting BS this am of 110, BP yesterday of 141/92 with home health visit, pt still smoking. Lakisha also requesting copy of visit note from 07/03. I advised her I will send one over after it is completed. I will also add the ER notes from Zainab to her chart for 07/03. Lakisha fax # [phone]. No additional needs/concerns from Lakisha today. documented in this encounter Plan of Treatment Not on file documented as of this encounter Visit Diagnoses Not on filedocumented in this encounter Care Teams Zipper Joiner Relationship Specialty Start Date End Date Emily Bejarano APRN [address] [place] [place] [phone] PCP - General 04/30/18 04/25/22 documented as of this encounter
--- OUTSIDE RECORDS SUMMARY | 2024-07-02 18:54 | XMS_ITS | Encounter Summary ---
Author Organization [facility] Address [address] [place] [address] Care Team Providers Care Value Stream Manager Name Role Phone Emily Bejarano APRN Primary Care Provider Encounter Details Date Type Department Care Team (Late st Contact Info) Description 08/01/2018 Orders Only [facility] Obstetrics & Midwifery - [address] [address] Linda Gross RN Need for Tdap vaccination (Primary Dx) Social History Tobacco Use Types [...] as of this encounter Visit Diagnoses Diagnosis Need for Tdap vaccination- Primary Need for prophylactic vaccination with combined lqujpusunx-wtpcluo-hjzlrfros (DTP) vaccine documented in this encounter Orders Immunization/Injection Count Last Ordered Date First Ordered Date TDAP VACCINE =>7YO IM 1 08/01/2018 documented in this encounter Care Teams Value Stream Manager Relationship Specialty Start Date End Date Emily Bejarano APRN [address] [place] [phone] PCP - General 04/30/18 04/25/22 documented as of this encounter
--- OUTSIDE RECORDS SUMMARY | 2024-07-02 18:54 | XMS_ITS | Encounter Summary ---
Author Organization [facility] Address [address] [place] [address] Care Team Providers Care Package Dye Stand Loader Name Role Phone Emily Bejarano DELMI Primary Care Provider Reason for Visit * Reason Comments Non-stress Test Encounter Details Date Type Department Care Team (Late st Contact Info) Description 09/16/2018 11:00 EDT Nurse Only [facility] Obstetrics & Midwifery - [facility] [address] [place], [place] [id number] Loli Chun MD [address] [facility], [address] [place] [address] Nurse, [facility] Type 2 diabetes mellitus affecting in second trimester, antepartum (Primary Dx) Social History Tobacco Use [...] as of this encounter Progress Notes * Loli Chun MD - 09/16/2018 1100 EDT NST Report Baseline Heart Rate: 140 Accelerations: present Movement: present Decelerations: absent Contractions: absent Interpretation: Reactive Loli Chun MD 09/16/2018 13:12 documented in this encounter Plan of Treatment Not on file documented as of this encounter Visit Diagnoses Diagnosis Type 2 diabetes mellitus affecting in second trimester, antepartum- Primary documented in this encounter Care Teams Package Dye Stand Loader Relationship Specialty Start Date End Date Emily Bejarano, CLINICAL OB [address] [place] [phone] PCP - General 04/30/18 04/25/22 documented as of this encounter
--- OUTSIDE RECORDS SUMMARY | 2024-07-02 18:54 | XMS_ITS | Encounter Summary ---
Author Organization [facility] Address [address] [place] [address] Care Team Providers Care Inspector Wire Products Name Role Phone Emily Bejarano APRN Primary Care Provider Encounter Details Date Type Department Care Team (Late st Contact Info) Description 10/07/2018 Results Only Imaging [facility] Obstetrics & Midwifery - [facility] [address] [place] [address] Myah Freitas MD [address] [facility], [address] [place] [address] Social History Tobacco Use Types [...] on filedocumented in this encounter Care Teams Inspector Wire Products Relationship Specialty Start Date End Date Emily Bejarano APRN [address] [place] [phone] PCP - General 04/30/18 04/25/22 documented as of this encounter
--- OUTSIDE RECORDS SUMMARY | 2024-07-02 18:54 | XMS_ITS | Encounter Summary ---
Author Organization [facility] Address [address] [place] [address] Care Team Providers Care Hydro Operator Name Role Phone Emily Bejarano DELMI Primary Care Provider Encounter Details Date Type Department Care Team (Late st Contact Info) Description 05/22/2018 Results Only [facility] Obstetrics & Midwifery - [facility] [address] [place], [place] [address] Willy Mccullough MD [address] [facility], [address] [place] [address] Social History Tobacco Use Types [...] Procedure Name Priority Date/Time Associated Diagnosis Comments T4, FREE REFLEX Routine 05/22/2018 16:39 EDT T3, TOTAL Routine 05/22/2018 16:39 EDT documented in this encounter Results * (ABNORMAL) T3, TOTAL (05/22/2018 16:39 EDT) T3, Total 191(H) 97 - 169 ng/dl 05/22/2018 20:09 EDT [facility] BLOOD SPECIMEN / Unknown 05/22/2018 16:39 EDT 05/22/2018 17:23 EDT Willy Mccullough MD CHEMISTRY & BLOO D GAS ORDERABLES Performing Organization Address City/[facility]/ZIP Co de Phone Number [facility] [address] [place] [address] * T4, FREE REFLEX (05/22/2018 16:39 EDT) T4, Free Reflex 1.4 0.8 - 2.2 ng/dl 05/22/2018 19:26 EDT [facility] BLOOD SPECIMEN / Unknown 05/22/2018 16:39 EDT 05/22/2018 17:23 EDT Willy Mccullough MD CHEMISTRY & BLOO D GAS ORDERABLES Performing Organization Address City/[facility] Co de Phone Number [facility] [address] [place] [address] documented in this encounter Visit Diagnoses Not on filedocumented in this encounter Care Teams Hydro Operator Relationship Specialty Start Date End Date Emily Bejarano APRN [address] [place] [phone] PCP - General 04/30/18 04/25/22 documented as of this encounter
--- OUTSIDE RECORDS SUMMARY | 2024-07-02 18:54 | XMS_ITS | Encounter Summary ---
Author Organization [facility] Address [address] [place] [address] Care Team Providers Care Solid Waste Management Engineer Name Role Phone None, Provider Primary Care Provider Unavailabl e Encounter Details Date Type Department Care Team (Late st Contact Info) Description 02/25/2018 Results Only [facility]- [facility] [phone] Chencho Molina MD [address] [place] [address] [place] [address] [id number] Social History Tobacco Use Types Packs/Day Years [...] Name Priority Date/Time Associated Diagnosis Comments PAP TEST- RESULT ONLY Routine 02/25/2018 0:00 EDT documented in this encounter Results * PAP TEST- RESULT ONLY (02/25/2018 0:00 EDT) Pathology Report: CYTOPATHOLOGY REPORT Reports generated via electronic interface contain original data; however they are lacking the format of the original report. Caution should be taken when reading/interpreti ng unformatted reports. Name: ? YESENIA LAGOS ? Accession #: ? [id number] ? : ? 1980 (Age: 37) ??F ?Collect Date: ? 02/25/2018 ? Location: ? [facility] ? Receive Date: ? 02/27/2018 ? Provider: CHENCHO MOLINA MD Copy to: ? Final Report SPECIMEN ADEQUACY ? Satisfactory for Evaluation - transformation zone component present GENERAL CATEGORIZATION ? Negative for Intraepithelial Lesion or Malignancy INTERPRETATION ? Reactive cellular changes associated with inflammation present (includes repair). Menstrual/Pregnanc y Status: ?? Specimen/Source: ??Pap Test, Cervix/Endocervix, ThinPrep Imaging System with manual evaluation Document reviewed and electronically signed by: ? ALEXI VIVEROS MD ? Report ??Date: 03/05/2018 12:28 HPV with Pap Test ? Date Ordered: ? 03/05/2018 ? Status: ?? Signed Out ?Date Complete: ? 03/06/2018 ? By: ??System Interface ? Date Reported: ? 03/06/2018 ? Interpretation RESULT: POSITIVE FOR HIGH OR INTERMEDIATE RISK HPV. E6 OR E7 mRNA from one or more types of HPV types 16,18,31, 33,35,39,45,51,52, 56,58,59,66, and 68 is detected by program research specialist mediated amplification. High and intermediate risk HPV types are associated with most squamous intraepithelial lesions and cervical cancers. Comments Document reviewed and electronically signed by: ? System Interface ? Report date: 03/06/2018 By the signature above, the attending physician certifies that he/she has personally conducted a gross and/or microscopic examination of the described specimens and rendered or confirmed the above diagnosis. End of Report [facility] 02/25/2018 02/27/2018 Chencho Molina MD PATHOLOGY ORDERABLES [facility] [address] [place] [address] documented in this encounter Visit Diagnoses Not on filedocumented in this encounter Care Teams Solid Waste Management Engineer Relationship Specialty Start Date End Date None, Provider PCP - General 08/29/17 04/29/18 documented as of this encounter
--- OUTSIDE RECORDS SUMMARY | 2024-07-02 18:54 | XMS_ITS | Encounter Summary ---
Author Organization [facility] Address [address] [place] [address] Care Team Providers Care Hand Singer Name Role Phone Emily Bejarano DELMI Primary Care Provider [phone] Encounter Details Date Type Department Care Team (Late st Contact Info) Description 09/10/2018 Results Only [facility] & [facility] [address] [place] [address] Myah Freitas MD [address] [facility], Level [address] [place] [address] Social History Tobacco Use Types [...] Procedure Name Priority Date/Time Associated Diagnosis Comments LONG TERM FOLLOW-UP 09/09/2018 12:07 EDT documented in this encounter Results * LONG TERM FOLLOW-UP (09/09/2018 12:07 EDT) Anatomical Region Laterality Modality Other 09/09/2018 12:0 7 EDT 09/09/2018 12:49 EDT Narrative 09/09/2018 12:49 EDT Indication BMI 47.84; Advanced maternal age Diabetes, pregestational, type 2 Right pyelectasis. History ======= General History Height [...] + 2 d GA by stated dating ??32 w + 0 d KADE by stated dating: ?11/04/2018 Ultrasound examination on: 09/09/2018 GA by U/S based upon: ??AC, BPD, Femur, HC GA by U/S ??31 w + 5 d KADE by U/S: ?11/06/2018 Assigned: ??Dating performed on 07/03/2018, based on the external assessment (on 03/20/2018) Assigned GA ?32 w + 0 d Assigned KADE: ??11/04/2018 General Evaluation Cardiac activity: Present. FHR 122 bpm. movements: visualized. Presentation: cephalic, maternal right. Placenta: posterior. Amniotic fluid: Amount of AF: normal. MVP 4.3 cm. WILLY 13.1 cm. Q1 4.3 cm, Q2 3.5 cm, Q3 2.4 cm, Q4 3.0 cm. Anatomy Cranium: ?? normal Lateral ventricles: ?not adequately visualized Midline falx: ??normal Cranium: ?? normal shape and size Stomach: ?? normal Kidneys: ?? normal Bladder: ?? normal Rt kidney: normal Rt kidney: renal pelvis measures 6.1 mm Lt kidney: normal Lt kidney: renal pelvis measures 3.5 mm Gender: ?male Wants to know gender: ??yes Biometry Biometry BPD ?78.8 mm 30% 31w 4d Hadlock OFD ?106.3 mm ?96% 35w 1d Nadege HC 293.5 mm ?40% 31w 4d [place] AC 278.2 mm ?45% 31w 6d Hadlock Femur ??61.5 mm 58% 31w 5d Nadege Humerus ?56.0 mm 66% 32w 4d Nadege EFW ?1,864 g 29% Man EFW (lb) ?? 4 lb EFW (oz) ?? 2 oz Cephalic index 0.74 ?5% Nicolaides HC / AC ?1.05 FL / BPD ?? 0.78 FL / AC ?0.22 MVP ?4.3 cm WILLY ?13.1 cm FHR ?122 bpm Head / Face / Neck Psychology Intern 7.1 mm Biophysical Profile 2: breathing movements 2: Gross body movements 2: tone 2: Amniotic fluid volume 07/02: Biophysical profile score Interpretation: normal DVD number 1982 Duration: 15 minutes Method ======== Transabdominal ultrasound examination, Voluson E10. View: Sufficient. Impression [id number] Follow-up obstetrical ultrasound This is a miller gestation. biometry is consistent with prior dating. Except where noted above, the anatomy was not reviewed in detail as this is a follow-up study and the anatomy was previously assessed. The right renal pelvis is measuring 6.1 mm, which is normal for this gestational age. Normal fluid and movement are noted. [address]10[address] Biophysical Profile (without NST) See BPP score above. Follow-up Follow-up with weekly BPP's and growth every 4 weeks. Comment ========= This follow-up has been scheduled. DATE OF SERVICE: 09/09/2018 Procedure Note Loli Chun MD - 09/09/2018 Indication BMI 47.84; Advanced maternal age Diabetes, pregestational, type 2 Right pyelectasis. History ======= General History Height [...] + 2 d GA by stated dating 32 w + 0 d KADE by stated datin11/04/2018 Ultrasound examination on: 09/09/2018 GA by U/S based upon: AC, BPD, Femur, HC GA by U/S 31 w + 5 d KADE by U/S: 11/06/2018 Assigned: Dating performed on 07/03/2018, based on the external assessment (on 03/20/2018) Assigned GA 32 w + 0 d Assigned KADE: 11/04/2018 General Evaluation Cardiac activity: Present. FHR 122 bpm. movements: visualized. Presentation: cephalic, maternal right. Placenta: posterior. Amniotic fluid: Amount of AF: normal. MVP 4.3 cm. WILLY 13.1 cm. Q1 4.3 cm, Q2 3.5 cm, Q3 2.4 cm, Q4 3.0 cm. Anatomy Cranium: normal Lateral ventricles: not adequately visualized Midline falx: normal Cranium: normal shape and size Stomach: normal Kidneys: normal Bladder: normal Rt kidney: normal Rt kidney: renal pelvis measures 6.1 mm Lt kidney: normal Lt kidney: renal pelvis measures 3.5 mm Gender: male Wants to know gender: yes Biometry Biometry BPD 78.8 mm 30% 31w 4d Hadlock OFD 106.3 mm 96% 35w 1d Nadege HC 293.5 mm 40% 31w 4d Chervenak AC 278.2 mm 45% 31w 6d Hadlock Femur 61.5 mm 58% 31w 5d Nadege Humerus 56.0 mm 66% 32w 4d Nadege EFW 1,864 g 29% Amn EFW (lb) 4 lb EFW (oz) 2 oz Cephalic index 0.74 5% Nicolaides HC / AC 1.05 FL / BPD 0.78 FL / AC 0.22 MVP 4.3 cm WILLY 13.1 cm FHR 122 bpm Head / Face / Neck Psychology Intern 7.1 mm Biophysical Profile 2: breathing movements 2: Gross body movements 2: tone 2: Amniotic fluid volume 8: Biophysical profile score Interpretation: normal DVD number 1982 Duration: 15 minutes Method ======== Transabdominal ultrasound examination, Voluson E10. View: Sufficient. Impression [id number] Follow-up obstetrical ultrasound This is a miller gestation. biometry is consistent with prior dating. Except where noted above, the anatomy was not reviewed in detail as this is a follow-up study and the anatomy was previously assessed. The right renal pelvis is measuring 6.1 mm, which is normal for this gestational age. Normal fluid and movement are [place]. [address] Biophysical Profile (without NST) See BPP score above. Follow-up Follow-up with weekly BPP's and growth every 4 weeks. Comment ========= This follow-up has been scheduled. DATE OF SERVICE: 09/09/[address] [facility]M OR DERABLES documented in this encounter Visit Diagnoses Not on filedocumented in this encounter Care Teams Hand Singer Relationship Specialty Start Date End Date Emily Bejarano APRN [address] [place] [phone] PCP - General 04/30/18 04/25/22 documented as of this encounter
--- OUTSIDE RECORDS SUMMARY | 2024-07-02 18:54 | XMS_ITS | Encounter Summary ---
Author Organization [facility] Address [address] [place] [address] Care Team Providers Care Training Mgr Name Role Phone Emily Bejarano Lena AWAD Primary Care Provider [phone] Reason for Referral * Consult (Routine) - Specialty Report Received Specialty Diagnoses / Procedures [facility] Referred To Contact Diagnoses Supervision of other high risk pregnancies, third trimester Yesenia Miller MD [address] [place] [address], [address] [place] [address] Referral ID Status Reason Start Date Expiration Date Visits Requested Visits Authorized [id number] Specialty Report Received Specialty Services Required 09/25/2018 1 1 Question Answer What areas would you like the [facility] to focus on? Women's Health Initiative What goals would you like the patient to meet? Help with emotional support and transportation help Comments As we discussed in your visit today, someone will be contacting you from the Community [facility] Team to schedule an appointment with you. If you do not hear from the [facility] within a week please call the Community [facility] Team at [phone]. Reason for Visit * Reason Onset Date Comments Referral Request 09/25/2018 Encounter Details Date Type Department Care Team (Late st Contact Info) Description 09/25/2018 Orders Only [facility] Obstetrics & Midwifery - [address] [phone] Dahiana Genao RN Supervision of other high risk pregnancies, third trimester (Primary Dx) Social History Tobacco Use Types [...] this encounter Progress Notes * Dahiana Genao, RN - 09/25/2018 1402 EDT Order for [facility] Women's Initiative placed. Patient requesting help with transportation to and from appointments. documented in this encounter Plan of Treatment Scheduled Referrals Name Type Priority Associated Diagnoses Orde r Schedule AMB CONS/FOLLOW UP [facility] Outpatient Referral Routine Supervision of other high risk pregnancies, third trimester Ordered: 09/25/2018 documented as of this encounter Visit Diagnoses Diagnosis Supervision of other high risk pregnancies, third trimester- Primary documented in this encounter Care Teams Training Mgr Relationship Specialty Start Date End Date Emily Bejarano APRN [address] [place] [address] PCP - General 04/30/18 04/25/22 documented as of this encounter
--- OUTSIDE RECORDS SUMMARY | 2024-07-02 18:54 | XMS_ITS | Encounter Summary ---
Author Organization [facility] Address [address] [place] [address] Care Team Providers Care Naval Inspector Name Role Phone Emily Bejarano APRN Primary Care Provider [phone] Encounter Details Date Type Department Care Team (Late st Contact Info) Description 09/09/2018 Documentation Visit [facility] Obstetrics & Midwifery - [address] [address] Linda Gross, RN Social History Tobacco Use Types Packs/Day [...] of this encounter Progress Notes * Linda Gross, RN - 09/09/2018 1320 EDT OR slot held for repeat C/S w/ BTL on 11/03 @ 1100 w/ Dr. Dejesus. Booking sheet given to Shanna Nicole. documented in this encounter Plan of Treatment Not on file documented as of this encounter Visit Diagnoses Not on filedocumented in this encounter Care Teams Naval Inspector Relationship Specialty Start Date End Date Emily Bejarano APRN [address] [place] [place] [address] PCP - General 04/30/18 04/25/22 documented as of this encounter
--- OUTSIDE RECORDS SUMMARY | 2024-07-02 18:54 | XMS_ITS | Encounter Summary ---
Author Organization [facility] Address [address] [place] [address] Care Team Providers Care Supervisor Painting Shipyard Name Role Phone None, Provider Primary Care Provider Unavailabl e Reason for Visit * Reason Onset Date Comments Appointment Related 04/08/2018 Encounter Details Date Type Department Care Team (Late st Contact Info) Description 04/08/2018 Telephone [facility] Obstetrics & Midwifery - [address] [address] Ioana Kumar Appointment Related Social History Tobacco [...] * Telephone Encounter - Ioana Kumar - 04/08/2018 1318 EDT Patient left voicemail requesting DIC be rescheduled. Returned call - appointment rescheduled to April 30 @2:30 documented in this encounter Plan of Treatment Not on file documented as of this encounter Visit Diagnoses Not on filedocumented in this encounter Care Teams Supervisor Painting Shipyard Relationship Specialty Start Date End Date None, Provider PCP - General 08/29/17 04/29/18 documented as of this encounter
--- OUTSIDE RECORDS SUMMARY | 2024-07-02 18:54 | XMS_ITS | Encounter Summary ---
Author Organization [facility] Address [address] [place] [address] Care Team Providers Care Insurance Administrator Name Role Phone Emily Bejarano DELMI Primary Care Provider Reason for Visit * Reason Onset Date Comments Contractions 09/27/2018 Encounter Details Date Type Department Care Team (Late st Contact Info) Description 09/27/2018 Telephone [facility] Obstetrics & Midwifery - [address] [address] Leidy Paul MBBS [address] [place] [phone] Contractions Social History Tobacco Use Types Packs/Day Years [...] Telephone Encounter - Leidy Paul MBBS - 09/27/2018 6912 EDT Yesenia is a 37y.o. prior followed by C/S now at 34w4d complaining of severe lower back pain, pelvic pressure since last night. She wants to go to [facility] for evaluation which is closer to her and she is concerned about driving all the way to [facility]. I advised her to go ahead and get evaluated at [facility]. I called [facility] L&D to inform them of her arrival and to call with any questions or need for transfer. Leidy Mason. Fellow PGY 5 Maternal Medicine [email or web address] documented in this encounter Plan of Treatment Not on file documented as of this encounter Visit Diagnoses Not on filedocumented in this encounter Care Teams Insurance Administrator Relationship Specialty Start Date End Date Emily Bejarano APRN [address] [place] [address] PCP - General 04/30/18 04/25/22 documented as of this encounter
--- OUTSIDE RECORDS SUMMARY | 2024-07-02 18:54 | XMS_ITS | Encounter Summary ---
Author Organization [facility] Address [address] [place] [address] Care Team Providers Care Manager Agriculture Name Role Phone Emily Bejarano Lena AWAD Primary Care Provider Encounter Details Date Type Department Care Team (Late st Contact Info) Description 08/07/2018 Phlebotomy Only [address] [address] Sample Dye Mixer, Outpatient Supervision of high risk , antepartum; Acquired hypothyroidism; Hypothyroidism affecting , antepartum; Pre-existing type 2 diabetes mellitus during in second trimester Social History Tobacco Use Types Packs/Day Years [...] Name Priority Date/Time Associated Diagnosis Comments BACTERIAL CULTURE, URINE Routine 08/07/2018 12:29 EDT Supervision of high risk , antepartum TSH Routine 08/07/2018 12:28 EDT Acquired hypothyroidism Hypothyroidism affecting , antepartum T4 FREE Routine 08/07/2018 12:28 EDT Hypothyroidism affecting , antepartum Acquired hypothyroidism HEMOGLOBIN A1C Routine 08/07/2018 12:28 EDT Pre-existing type 2 diabetes mellitus during in second trimester documented in this encounter Results * BACTERIAL CULTURE, URINE (08/07/2018 12:29 EDT) Result Less than 10,000 CFU/ml Usual urogenital aide. 08/08/2018 12:08 EDT [facility] Urine specimen (specimen) URINE / Unknown 08/07/2018 12:29 EDT 08/07/2018 14:21 EDT Willy Mccullough MD MICROBIOLOGY - G ENERAL ORDERABLES Performing Organization Address [facility] Co de Phone Number [facility] [address] [place] [address] * HEMOGLOBIN A1C (08/07/2018 12:28 EDT) Hemoglobin A1C 5.2 % 08/07/2018 14:41 EDT [facility] Comment: Reference Range: <5.7% Normal 5.7-6.4% Prediabetes =>6.5% Diagnostic for diabetes (if confirmed) Goals for glycemic control in diabetes ADA 2017 For non adults with diabetes: ?? Target <7.0% For children and adolescents with type 1 diabetes: ?? Target <7.5% More or less stringent targets may be appropriate for individual patients. Est Avg Glucose 103 mg/dl 8 14:41 EDT [facility] Comment: eAG represents the A1c result expressed as average glucose in mg/dl. Blood specimen (specimen) BLOOD SPECIMEN / Unknown 08/07/2018 12:28 EDT 08/07/2018 13:07 EDT Leidy REINA CHEMISTRY & BLOOD GAS ORDERABLES Performing Organization Address [facility] Co de Phone Number [facility] [address] [place] [address] * T4 FREE (08/07/2018 12:28 EDT) T4, Free 1.1 0.8 - 2.2 ng/dl 08/07/2018 13:53 EDT [facility] Blood specimen (specimen) BLOOD SPECIMEN / Unknown 08/07/2018 12:28 EDT 08/07/2018 13:07 EDT Leidy MARCIAL CHEMISTRY & BLOOD GAS ORDERABLES Performing Organization Address [facility] Co de Phone Number [facility] [address] [place] [address] * TSH (08/07/2018 12:28 EDT) TSH 3.04 0.47 - 4.68 uIU/ml 08/07/2018 14:04 EDT [facility] Comment: The results of this assay can be falsely lowered due to the consumption of Biotin. Blood specimen (specimen) BLOOD SPECIMEN / Unknown 08/07/2018 12:28 EDT 08/07/2018 13:07 EDT Leidy Paul [facility] CHEMISTRY & BLOOD GAS ORDERABLES Performing Organization Address [facility] de Phone Number [facility] [address] [place] [address] documented in this encounter Visit Diagnoses Diagnosis Supervision of high risk , antepartum Acquired hypothyroidism Unspecified hypothyroidism Hypothyroidism affecting , antepartum Pre-existing type 2 diabetes mellitus during in second trimester documented in this encounter Care Teams Manager Agriculture Relationship Specialty Start Date End Date Emily Bejarano APRN [address] [facility] [place] [address] PCP - General 04/30/18 04/25/22 documented as of this encounter
--- OUTSIDE RECORDS SUMMARY | 2024-07-02 18:54 | XMS_ITS | Encounter Summary ---
Author Organization [facility] Address [address] [place] [address] Care Team Providers Care Software Development Coordinator Name Role Phone Emily Bejarano Lena AWAD Primary Care Provider [phone] Reason for Visit * Reason Onset Date Comments Paperwork request 05/16/2018 Encounter Details Date Type Department Care Team (Late st Contact Info) Description 05/16/2018 Telephone [facility] Obstetrics & Midwifery - [address] [address] Linda Gross, RN Paperwork request Social History Tobacco Use Types Packs/Day Years [...] encounter Miscellaneous Notes * Telephone Encounter - Linda Gross, RN - 05/16/2018 1413 EDT Medicaid Coverage Exception form completed and faxed to [phone] with confirmation of receipt printed. Original sent to [employer]. documented in this encounter Plan of Treatment Not on file documented as of this encounter Visit Diagnoses Not on filedocumented in this encounter Care Teams Software Development Coordinator Relationship Specialty Start Date End Date Emily Bejarano, DELMI [address] [place] [phone] PCP - General 04/30/18 04/25/22 documented as of this encounter
--- OUTSIDE RECORDS SUMMARY | 2024-07-02 18:54 | XMS_ITS | Encounter Summary ---
Author Organization [facility] Address [address] [place] [address] Care Team Providers Care Rock Breaker Name Role Phone Emily Bejarano DELMI Primary Care Provider [phone] Reason for Visit * Reason Onset Date Comments Scheduled 10/09/2018 Encounter Details Date Type Department Care Team (Late st Contact Info) Description 10/09/2018 Telephone [facility] Obstetrics & Midwifery - [address] [address] Dahiana Genao RN Scheduled Social History Tobacco Use Types Packs/Day Years [...] Telephone Encounter - Dahiana Genao RN - 10/09/2018 8945 EST TC from Tessie, Syruper, re: patient's C/S date. Was originally scheduled for 11/03 at 39+6 due to childcare issues. Patient now asking to be scheduled earlier in the 39th week- has no preference for date. Scheduled for Saturday, 10/28 at 39+0. Briefly reviewed pre-op instructions. Reminded patient to keep MD appointment for Saturday, 10/14 (hasn't been seen by MD since 09/09). Patientagreeable, denies additional questions/concerns. documented in this encounter Plan of Treatment Not on file documented as of this encounter Visit Diagnoses Not on filedocumented in this encounter Care Teams Rock Breaker Relationship Specialty Start Date End Date Emily Bejarano, MEAT SOAKER [address] [place] [phone] PCP - General 04/30/18 04/25/22 documented as of this encounter
--- OUTSIDE RECORDS SUMMARY | 2024-07-02 18:54 | XMS_ITS | Encounter Summary ---
Author Organization [facility] Address [address] [place] [address] Care Team Providers Care Arts Administrator Or Manager Name Role Phone Emily Bejarano Lena AWAD Primary Care Provider Reason for Visit * Reason Onset Date Comments Appointment Related 09/23/2018 Encounter Details Date Type Department Care Team (Late st Contact Info) Description 09/23/2018 Telephone [facility] Women's Services - [address] [phone] Loli Chun MD [address] [facility], [address] [place] [address] Appointment Related Social History Tobacco [...] encounter Miscellaneous Notes * Telephone Encounter - Veronica Santo Nury - 09/23/2018 8276 EDT Called patient in regards to her missed APV with Dr. Chun, her Non Stress Test and Ultrasound appointments from today. Patient stated that she spoke to someone yesterday in regards to reaching out to a Adjunct Spanish Instructor in regards to obtaining a gas card, but had not heard back. I confirmed with the patient that I would connect with our team of Social Workers and verified that [phone] was the best number to reach her back at and she confirmed. I sent an email to both Linda Muniz and Ling Ballesteros in hopes that one of them would be able to connect with her as she is supposed to be doingweekly testing right up until 11/11/2018 at this point. Unfortunately, without assistance or resources she will not be able to make these upcoming appointments. documented in this encounter Plan of Treatment Not on file documented as of this encounter Visit Diagnoses Not on filedocumented in this encounter Care Teams Arts Administrator Or Manager Relationship Specialty Start Date End Date Emily Bejarano APRN [address] [place] [address] PCP - General 04/30/18 04/25/22 documented as of this encounter
--- OUTSIDE RECORDS SUMMARY | 2024-07-02 18:54 | XMS_ITS | Encounter Summary ---
Author Organization [facility] Address [address] [place] [address] Care Team Providers Care Computed Tomography Technician Name Role Phone Emily Bejarano DELMI Primary Care Provider Reason for Visit * Reason Onset Date Comments Pre-visit Orders 09/01/2018 Encounter Details Date Type Department Care Team (Late st Contact Info) Description 09/01/2018 Orders Only [facility] Obstetrics & Midwifery - [facility] [address] [place], [place] [address] Yesenia Miller MD [address] [place] [address], [address] [place] [address] Need for influenza vaccination (Primary Dx) Social History Tobacco Use [...] 06/26/2020 Verbally Threaten Not on file 06/26/2020 Comments Yes Sex and Gender Information Value [...] 10:41 EDT documented as of this encounter Plan of Treatment Not on file documented as of this encounter Visit Diagnoses Diagnosis Need for influenza vaccination- Primary Need for prophylactic vaccination and inoculation against influenza documented in this encounter Care Teams Computed Tomography Technician Relationship Specialty Start Date End Date Emily Bejarano APRN [address] [facility] [phone] PCP - General 04/30/18 04/25/22 documented as of this encounter
--- OUTSIDE RECORDS SUMMARY | 2024-07-02 18:54 | XMS_ITS | Encounter Summary ---
Author Organization [facility] Address [address] [place] [address] Care Team Providers Care Welcome Desk Agent Name Role Phone Emily Bejarano DELMI Primary Care Provider [phone] Reason for Visit * Reason Onset Date Comments Appointment Related 05/06/2018 Encounter Details Date Type Department Care Team (Late st Contact Info) Description 05/06/2018 Telephone [facility] Women's Services - [facility] [address] [place], [place] [id number] Loli Chun MD [address] [facility], [address] [place] [address] Appointment Related Social History Tobacco [...] encounter Miscellaneous Notes * Telephone Encounter - Michelle Gandhi - 05/06/2018 0909 EDT Called and left message for patient to schedule a LEXIE and CDE appointment. documented in this encounter Plan of Treatment Not on file documented as of this encounter Visit Diagnoses Not on filedocumented in this encounter Care Teams Welcome Desk Agent Relationship Specialty Start Date End Date Emily Bejarano APRN [address] [place] [id number] PCP - General 04/30/18 04/25/22 documented as of this encounter
--- OUTSIDE RECORDS SUMMARY | 2024-07-02 18:54 | XMS_ITS | Encounter Summary ---
Author Organization [facility] Address [address] [place] [address] Care Team Providers Care Flexographic Press Operator Name Role Phone Emily Bejarano Lena AWAD Primary Care Provider Encounter Details Date Type Department Care Team (Late st Contact Info) Description 05/22/2018 Phlebotomy Only [address] [address] Four H Agent, Outpatient Hypothyroid in , antepartum, second trimester; Type 2 diabetes mellitus affecting in second trimester, antepartum; Diabetes mellitus affecting in second trimester; Supervision of high risk , antepartum Social History Tobacco Use Types Packs/Day Years [...] Procedure Name Priority Date/Time Associated Diagnosis Comments THYROID CASCADE Routine 05/22/2018 16:39 EDT Hypothyroid in , antepartum, second trimester ALPHA-FETOPROTEIN (AFP), SINGLE MARKER SCREEN, MATERNAL, S Routine 05/22/2018 16:39 EDT Type 2 diabetes mellitus affecting in second trimester, antepartum Diabetes mellitus affecting in second trimester documented in this encounter Results * ALPHA-FETOPROTEIN (AFP), SINGLE MARKER SCREEN, MATERNAL, S (05/22/2018 16:39 EDT) Patient Weight 140.9 05/22/2018 16:35 [facility] Units KILOGRAM (KG) 05/22/2018 16:35 [facility] Prev Down NO 05/22/2018 16:35 [facility] Pts Estim Due Date 20,181,211 2017 16:35 [facility] Method used for KADE ULTRASOUND 05/22/2018 16:35 [facility] Results Summary Normal risk 05/26/20 18 12:44 [facility] NTD Risk Estimate 1/10,000 018 12:44 [facility] AFP 21.4 ng/mL 05/26/2018 12:44 [facility] AFP MoM 1.04 <2.50 MoM 05/26/2018 12:44 [facility] Interpretation Screen negative for neural tube defects. 05/26/2018 12:44 [facility] Recommend Follow Up None. 05/26/2018 12:44 [facility] Collection Date 05/22/18 8 12:44 [facility] Birthdate [birth year] 05[birth year]26[birth year]2018 12:44 [facility] Calc age at KADE 38 years 8 12:44 [facility] Maternal Weight lbs 310 lbs 05/26/2018 12:44 [facility] Maternal Weight kg 141 kg 2017 12:44 [facility] Insulin dep diabetes NO 05/22/2018 16:35 [facility] Patient Race NON BLACK 05/22/2018 16:35 [facility] Smoking Status SMOKER 05/22/2018 16:35 [facility] KADE by U/S scan 11/04/18 8 12:44 [facility] GA on reina by U/S 16,2 wk,d 12:44 [facility] GA used in risk est Scan estimate 05/26/2018 12:44 [facility] Number of Fetuses 1 16:35 [facility] Number of Chorions NOT APPLICABLE 05/22/2018 16:35 [facility] IVF NO 05/22/2018 16:35 [facility] IVF Egg Donor NO 17:24 [facility] IVF Egg, Embryo Fr Dt NO 05/22/2018 17:24 [facility] Prev w NTD NO 05/22/2018 16:35 [facility] Pt or Father has NTD NO 05/22/2018 16:35 [facility] Initial or Repeat INITIAL 16:35 [facility] Phys Phone Number [phone] 04/26 16:35 [facility] General Test Info (Note) 12:44 [facility] Comment: This screening provides an [...] developed and its performance characteristics determined by [facility] in a manner consistent with CLIA requirements. This test has not been cleared or approved by the U.S. Food and Drug Administration. Performed by: [facility] Labs: [facility] [address], [place] [address], Lab Dir: Chencho Le II, M.D., Ph.D. Blood specimen (specimen) BLOOD SPECIMEN / Unknown 05/22/2018 16:39 EDT 05/22/2018 17:23 EDT Willy Mccullough MD CHEMISTRY & BLOO D GAS ORDERABLES Performing Organization Address [facility] Co de Phone Number [facility] [address] [place] [address] * (ABNORMAL) THYROID CASCADE (05/22/2018 16:39 EDT) TSH 0.13(L) 0.47 - 4.68 uIU/ml 05/22/2018 18:33 EDT [facility] Comment: TSH cascade is not recommended for patients in which pituitary or hypothalamic disorders are suspected. The results of this assay can be falsely lowered due to the consumption of Biotin. Blood specimen (specimen) BLOOD SPECIMEN / Unknown 05/22/2018 16:39 EDT 05/22/2018 17:23 EDT Willy Mccullough MD CHEMISTRY & BLOO D GAS ORDERABLES Performing Organization Address [facility] Co de Phone Number [facility] [address] [place] [phone] documented in this encounter Visit Diagnoses Diagnosis Hypothyroid in , antepartum, second trimester Type 2 diabetes mellitus affecting in second trimester, antepartum Diabetes mellitus affecting in second trimester Supervision of high risk , antepartum documented in this encounter Care Teams Flexographic Press Operator Relationship Specialty Start Date End Date Emily Bejarano APRN [address] [place] [phone] PCP - General 04/30/18 04/25/22 documented as of this encounter
--- OUTSIDE RECORDS SUMMARY | 2024-07-02 18:54 | XMS_ITS | Encounter Summary ---
Author Organization [facility] Address [address] [place] [address] Care Team Providers Care Safety Analyst Name Role Phone Emily Bejarano DELMI Primary Care Provider [phone] Reason for Visit * Reason Comments Social Work Encounter Details Date Type Department Care Team (Late st Contact Info) Description 09/24/2018 Community Health Team [facility] Women's Services - [address] [address] Ling Ballesteros Social History Tobacco Use Types [...] as of this encounter Progress Notes * Ling Ballesteros - 09/24/2018 0939 EDT SW called pt to discuss transportation/financial challenges and SW supports available after learning from Veronica Santo that pt didn't attend her appt b/c she can't afford the gas to travel here; pt has a high risk and is supposed to attend weekly appts. Pt reports being declined hx for Medicaid cabs because she has a working, legal car. 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 SW Linda Muniz to meet pt after her 09/30 10:30 appt - will provide $25 gas card (check about maybemeal vouchers too?) and emotional support as pt has a lot going on right now. 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 Discussed short-term counseling SW can provide, but pt declined as she has an ind thx in [place] she sees on tuesdays. Pt described there's been a lapse in thx, and said she plans to resume very soon. [facility] This SW discussed being able to provide pt with a gas card on 09/30 and 1 more some time before her KADE 11/04/18 as SWs need to spread them among pts; pt was understanding and said she can definitely attend 09/30 appt. Pt needs to be home for her 8 yo by 2:30, so will be looking to change any afternoon appts that have been scheduled with office staff on 09/30. CHT SW referral pending - this SW asked for one to be submitted. [facility] Total Time: 45 min total 15 min via ph with pt 15 min care coordination 15 min charting Referral: n/a Follow up: Date: Sunday, September 30, 2018 Time: 10:30 AM With: Linda Muniz Cupola Tapper Location: [facility] Status: Active documented in this encounter Plan of Treatment Not on file documented as of this encounter Visit Diagnoses Not on filedocumented in this encounter Care Teams Safety Analyst Relationship Specialty Start Date End Date Emily Bejarano APRN [address] [place] [place] [address] PCP - General 04/30/18 04/25/22 documented as of this encounter
--- OUTSIDE RECORDS SUMMARY | 2024-07-02 18:54 | XMS_ITS | Encounter Summary ---
Author Organization [facility] Address [address] [place] [address] Care Team Providers Care Animal Park Code Enforcement Officer Name Role Phone Emily Bejarano APRN Primary Care Provider Encounter Details Date Type Department Care Team (Late st Contact Info) Description 09/23/2018 Results Only [facility] Obstetrics & Midwifery - [facility] [address] [place] [address] Willy Mccullough MD [address] [facility], [address] [place] [address] Social History Tobacco Use Types [...] on filedocumented in this encounter Care Teams Animal Park Code Enforcement Officer Relationship Specialty Start Date End Date Emily Bejarano APRN [address] [place] [address] PCP - General 6/6/18 6/1/22 documented as of this encounter
--- OUTSIDE RECORDS SUMMARY | 2024-07-02 18:54 | XMS_ITS | Encounter Summary ---
Author Organization [facility] Address [address] [place] [address] Care Team Providers Care Radar Scientist Name Role Phone Emily Bejarano Lena AWAD Primary Care Provider [phone] Reason for Visit * Reason Comments Diabetes Encounter Details Date Type Department Care Team (Latest Contact Info) Description 05/19/2018 10:30 EDT Office Visit [facility] Endocrinology - [address] [address] Unknown, Provider, Cary Teague Diabetes mellitus affecting in first trimester (Primary Dx) Social History Tobacco Use [...] :33 EDT documented as of this encounter Patient Instructions * Patient Instructions* Yaritza Ramachandran - 05/19/2018 10:30 EDT Check blood sugars 4 times daily Fasting 2 hours after meals 3 meals and 3 snacks Protein with each meal and snack documented in this encounter Progress Notes * Yaritza Ramachandran - 05/19/2018 1030 EDT [facility] DIABETES NUTRITION VISIT NOTE Name:Yesenia Fragoso Date of visit: 05/19/2018 PATIENT ID: Yesenia Fragoso is a 37 y.o. female referred for medical nutrition therapy by Dr. Pauline Gayle for Diabetes - Type 2. SUBJECTIVE: Yesenia Fragoso was seen for a(n) initial medical nutrition therapy visit on 05/19/2018 accompanied by:alone She is 15w5d. Has not been feeling well for entire . Has c/o cramping, headaches and extreme fatigue. Sees MFM on this week. She is on metformin 500mg daily. Quit smoking 2 days ago. Under a considerable amount of family stress. OBJECTIVE: Diabetes type: Type 2 Vitals: Wt: 310# Pt reports wt loss of 87# since last May but about 50# has been lost in p 3 months. Attributes it to nausea and not eating. Current Outpatient Prescriptions Medication Sig Dispense Refill ??? acetaminophen-codeine (TYLENOL #3) 300-30 mg per tablet Take 1 Tab by mouth every 4 hours as needed for Pain. 10 Tab 0 ??? albuterol (PROVENTIL HFA, VENTOLIN HFA) 90 mcg/Actuation inhaler Inhale 2 Puffs as directed every 4 hours. ??? fluticasone-salmeterol (ADVAIR) 250-50 mcg/Dose diskus inhaler Inhale 1 Puff as directed every 12 hours. ??? levothyroxine (SYNTHROID) 112 mcg tablet Take 112 mcg by mouth daily. ??? metFORMIN (GLUCOPHAGE) 500 mg tablet Take 500 mg by mouth at bedtime. No current facility-administered medications for this visit. Lab Results Component Value Date HGBA1C Cancelled by Physician/Nursing Unit 09/13/2009 No components found for: OGTT PRESENT MEAL PATTERN: Current eating habits:2 meals and some snacking. Comments: Has a lot of cravings. Breakfast: breakfast burrito or omelet w turk/chix and vegetables Lunch: salad or soup or snack Dinner:chicken, seafood, fish, soup, vegetables Snacks: crackers and dip, yogurt, fruit, leftovers, cashews Beverages:water vitamins: had to stop-making her ill-rec'd chewable Flintstones PHYSICAL ACTIVITY: Type of exercise: ADL BLOOD GLUCOSE MONITORING: Glucose monitoring: sporadic. Home Blood Glucoses Running: range 97-188. Barriers to monitoring: None Hypoglycemic episode: none Carbohydrate source on person? No ASSESSMENT: Yesenia is a 37 yo with Type 2 diabetes and is 15w5d. She has been feeling quite ill with this and has experienced significant weight loss in the past month by her report. She is now able to eat more regularly and should see weight level off. Has a diet that is mostly healthy with lean sources of protein, fruit and vegetables. She is under a substantial amount of stress and to add carbohydr ate counting might be too much for now. Encouraged her to watch her carbohydrate portions and continue to eat as healthy as possible. Learning readiness: Verbalizes interest and Active attentive participant Psychosocial, cultural, or economic barriers to care:family stress. depression/anxiety. Verbalized understanding of meal planning guidelines PLAN: Nutrition: Type of meal planning: Heart Healthy and portion control. Check blood sugars 4 times daily Fasting 2 hours after meals 3 meals and 3 snacks Protein with each meal and snack Food logs to reinforce meal plan if suggested. Glucose Monitoring: QID. The following patient education materials were provided at today's visit. Carb Counting and Meal Planning- Novonordisk Follow-up will schedule for [facility] Thank you for your kind referral of Yesenia Fragoso for nutrition counseling. Time Spent With Patient: 45 [address] 05/19/2018 14:16 documented in this encounter Plan of Treatment Not on file documented as of this encounter Visit Diagnoses Diagnosis Diabetes mellitus affecting in first trimester- Primary documented in this encounter Care Teams Radar Scientist Relationship Specialty Start Date End Date Emily Bejarano APRN [address] [place] [place] [address] PCP - General 04/30/18 04/25/22 documented as of this encounter
--- OUTSIDE RECORDS SUMMARY | 2024-07-02 18:54 | XMS_ITS | Encounter Summary ---
Author Organization [facility] Address [address] [place] [address] Care Team Providers Care Dough Raiser Name Role Phone Emily Bejarano DELMI Primary Care Provider Reason for Visit * Reason Comments Non-stress Test Encounter Details Date Type Department Care Team (Late st Contact Info) Description 09/30/2018 10:30 EST Nurse Only [facility] Obstetrics & Midwifery - [facility] [address] [place], [place] [id number] Loli Chun MD [address] [facility], [address] [place] [address] Nurse, [facility] Type 2 diabetes mellitus affecting in second [...] Progress Notes * Loli Chun MD - 09/30/2018 1030 EST NST Report Baseline Heart Rate: 135 Accelerations: absent Movement: present Decelerations: absent Contractions: absent Interpretation: not reactive BPP 07/04 Loli Chun MD 09/30/2018 11:11 documented in this encounter Plan of Treatment Not on file documented as of this encounter Visit Diagnoses Diagnosis Type 2 diabetes mellitus affecting in second trimester, antepartum- Primary documented in this encounter Care Teams Dough Raiser Relationship Specialty Start Date End Date Emily Bejarano, DELMI [address] [place] [address] PCP - General 04/30/18 04/25/22 documented as of this encounter
--- OUTSIDE RECORDS SUMMARY | 2024-07-02 18:54 | XMS_ITS | Encounter Summary ---
Author Organization [facility] Address [address] [place] [address] Care Team Providers Care Cushion Spring Assembler Name Role Phone Emily Bejarano DELMI Primary Care Provider [phone] Reason for Visit * Reason Onset Date Comments Pre-visit Orders 10/02/2018 Encounter Details Date Type Department Care Team (Late st Contact Info) Description 10/02/2018 Orders Only [facility] Obstetrics & Midwifery - [address] [address] Myah Freitas MD [address] [place] [address], [address] [place] [address] Supervision of high risk , antepartum, third trimester (Primary Dx) Social History Tobacco [...] on file documented as of this encounter Results * GROUP B STREP PCR (10/14/2018 13:24 EST) GROUP B STREP PCR Negative 10/15/2018 14:05 EST [facility] Specimen of unknown material (specimen) TOPOGRAPHY UNKNOWN / Unknown 10/14/2018 13:24 EST 10/14/2018 14:08 EST Loli Chun MD MICROBIOLOGY - GENERAL ORDERABLES Performing Organization Address City/State/[facility] Co de Phone Number [facility] [address] [place] [address] documented in this encounter Visit Diagnoses Diagnosis Supervision of high risk , antepartum, third trimester- Primary documented in this encounter Care Teams Cushion Spring Assembler Relationship Specialty Start Date End Date Emily Bejarano APRN [address] [place] [phone] PCP - General 04/30/18 04/25/22 documented as of this encounter
--- OUTSIDE RECORDS SUMMARY | 2024-07-02 18:54 | XMS_ITS | Encounter Summary ---
Author Organization [facility] Address [address] [place] [address] Care Team Providers Care Normalizer Name Role Phone Emily Bejarano Lena AWAD Primary Care Provider [phone] Reason for Visit * Reason Onset Date Comments Appointment Related 05/12/2018 Encounter Details Date Type Department Care Team (Late st Contact Info) Description 05/12/2018 Telephone [facility] Obstetrics & Midwifery - [address] [address] Deborah Sepulveda, RN Appointment Related Social History Tobacco Use [...] Miscellaneous Notes * Telephone Encounter - Deborah Sepulveda RN - 05/12/2018 1526 EDT Tequila calling to start the necessary paperwork for transportation for pt with RCT to [facility] appts. Pt has 7 yr old son and son will be have care this summer, but if there is a day where she does not have childcare she will have to bring her son along. Will need letter from provider for transportation to cover her son as well if needed for future appt. Gave Tequila fax # [phone]) and she will send over form. Informed that Yesenia had an appt on 04/30, our PSS staff attempted to call her on 05/06 to set up LEXIE and CDE appts but unable to reach pt. Tequila states she will also reach out to pt to encourage her to schedule appts. documented in this encounter Plan of Treatment Not on file documented as of this encounter Visit Diagnoses Not on filedocumented in this encounter Care Teams Normalizer Relationship Specialty Start Date End Date Emily Bejarano APRN [address] [place] [phone] PCP - General 04/30/18 04/25/22 documented as of this encounter
--- OUTSIDE RECORDS SUMMARY | 2024-07-02 18:54 | XMS_ITS | Encounter Summary ---
Author Organization [facility] Address [address] [place] [address] Care Team Providers Care Cloth Bin Packer Name Role Phone Emily Bejarano CHIEF SECURITY AND SAFETY OFFICER Primary Care Provider [phone] Reason for Visit * Reason Comments Social Work Encounter Details Date Type Department Care Team (Late st Contact Info) Description 09/30/2018 Community Health Team [facility] Women's Services - [address] [address] Linda Muniz Social History Tobacco Use Types [...] encounter Progress Notes * Linda Muniz - 09/30/2018 3166 EST Community Health Team Social Work Initial Encounter Date of visit: 09/30/2018 Social Work initial encounter with Yesenia Fragoso for social work, original referral from Yesenia Miller MD. ASSESSMENT Housing: Stable - rents an apartment in [place]. Would like to live in [place] which is closer to friends and family. Transportation: owns car Employment/Financial: unemployed, son on SSDI, [employer] Health Insurance: Medicaid Family Support: None reported Community/Agency Support: WIC, [employer], [employer] Other: n/a CHT intake: Not completed. n/a No question data found. BEHAVIORAL HEALTH SCREENING: Comment(s): n/a TOPIC OF CONVERSATION: Engaged patient in conversation related to positive behavior change, self- management, goal setting and action planning using motivational interviewing and active listening. Patient identifies main stressors are being a single mother of a 16 year old and 8 year old, and financial stressors. Patient lives in [place] and has weekly OB appointments. SW gave patient a gas card for this visit and can give her another one in two weeks. Patient's income is based on [facility] up and her son's SSDI. She reports her housing is stable but shefeels isolated in [place] and would rather live in [place]. She will begin looking for an apartment after the baby is born, and reports her [facility] up patient case manager will support her with this. Discussion around coping skills for managing family stressors. She reports her son has not been attending school. He has an [facility] patient case manager who is supporting her with a plan for school attendance. Plan for SW to continue to check in with patient during her OB appointments and provide gas cards and cafeteria vouchers if possible. STAGE OF CHANGE: Contemplation PATIENT IDENTIFIED GOALS: Support with transportation cost to appointments PLAN: to provide gas cards when possible ADDITIONAL INFORMATION FOR PROVIDER: n/a Patient's Primary Care Site: [facility] Total Time: 40 minute consult, 10 minutes charting Referral: n/a Follow up: ongoing Status: Active documented in this encounter Plan of Treatment Not on file documented as of this encounter Visit Diagnoses Not on filedocumented in this encounter Care Teams Cloth Bin Packer Relationship Specialty Start Date End Date Emily Bejarano APRN [address] [place] [address] PCP - General 04/30/18 04/25/22 documented as of this encounter
--- OUTSIDE RECORDS SUMMARY | 2024-07-02 18:54 | XMS_ITS | Encounter Summary ---
Author Organization [facility] Address [address] [place] [address] Care Team Providers Care Junior Buyer Name Role Phone Emily Bejarano DELMI Primary Care Provider Encounter Details Date Type Department Care Team (Late st Contact Info) Description 10/14/2018 Results Only Imaging [facility] Obstetrics & Midwifery - [facility] [address] [place] [address] Willy Mccullough MD [address] [place] [address], [address] 4 [place] [address] Social History Tobacco Use Types [...] Procedure Name Priority Date/Time Associated Diagnosis Comments [facility] BIOPHYSICAL PROFILE 10/14/2018 12:09 EST documented in this encounter Results * [facility] BIOPHYSICAL PROFILE (10/14/2018 12:09 EST) Anatomical Region Laterality Modality Other 10/14/2018 12:0 9 EST 10/14/2018 12:21 EST Narrative 10/14/2018 12:21 EST Indication Diabetes, pregestational, type 2 BMI 47.84 Advanced maternal age. History ======= General History Height 180 cm [...] + 2 d GA by stated dating ??37 w + 0 d KADE by stated dating: ?11/04/2018 Ultrasound examination on: 10/14/2018 GA by U/S based upon: ??AC, BPD, Femur, HC GA by U/S ??36 w + 5 d KADE by U/S: ?11/06/2018 Assigned: ??Dating performed on 07/03/2018, based on the external assessment (on 03/20/2018) Assigned GA ?37 w + 0 d Assigned KADE: ??11/04/2018 General Evaluation Cardiac activity: Present. FHR 141 bpm. movements: visualized. Presentation: oblique, head LUQ. Placenta: posterior, left. Amniotic fluid: Amount of AF: normal. MVP 6.0 cm. WILLY 15.7 cm. Q1 2.8 cm, Q2 6.0 cm, Q3 2.2 cm, Q4 4.7 cm. Anatomy Cranium: ?? normal Lateral ventricles: ?normal Midline falx: ??normal Cranium: ?? normal shape and size 4-chamber view: ?normal Stomach: ?? normal Kidneys: ?? normal Bladder: ?? normal Wants to know gender: ??yes Biometry Biometry BPD ?90.7 mm 59% 36w 5d Hadlock OFD ?115.3 mm ?84% Nadege HC 328.9 mm ?47% 36w 5d [place] AC 309.0 mm ?10% 34w 6d Hadlock Femur ??77.0 mm >99% 38w 4d Nadege Humerus ?63.4 mm 72% 36w 6d Nadege EFW ?2,969 g 47% Man Calculated by: Hadlock ([id number]) EFW (lb) ?? 6 lb EFW (oz) ?? 9 oz Cephalic index 0.79 ?19% Nicolaides HC / AC ?1.06 FL / BPD ?? 0.85 FL / AC ?0.25 MVP ?6.0 cm WILLY ?15.7 cm FHR ?141 bpm Head / Face / Neck Fabrication And Layout Craftsman 8.3 mm Biophysical Profile 0: breathing movements 2: Gross body movements 2: tone 2: Amniotic fluid volume 2: NST 07/04: Biophysical profile score Interpretation: normal DVD number 2022, Duration: 30 minutes Method ======== Transabdominal ultrasound examination, Voluson E10. View: Poor view. Impression [id number] Follow-up obstetrical ultrasound This is a miller gestation in breech/oblique presentation. biometry is consistent with prior dating. Except where noted above, the anatomy was not reviewed in detail as this is a follow-up study and the anatomy was previously assessed. Normal fluid and movement are noted. 565[address] Biophysical Profile (including NST) See BPP score above. Follow-up Follow-up with weekly BPP's. Comment ========= This follow-up has been scheduled. DATE OF SERVICE: 10/14/2018 Procedure Note Loli Chun MD - 10/14/2018 Indication Diabetes, pregestational, type 2 BMI 47.84 Advanced maternal age. History ======= General History Height 180 cm [...] + 2 d GA by stated dating 37 w + 0 d KADE by stated datin11/04/2018 Ultrasound examination on: 10/14/2018 GA by U/S based upon: AC, BPD, Femur, HC GA by U/S 36 w + 5 d KADE by U/S: 11/06/2018 Assigned: Dating performed on 07/03/2018, based on the external assessment (on 03/20/2018) Assigned GA 37 w + 0 d Assigned KADE: 11/04/2018 General Evaluation Cardiac activity: Present. FHR 141 bpm. movements: visualized. Presentation: oblique, head LUQ. Placenta: posterior, left. Amniotic fluid: Amount of AF: normal. MVP 6.0 cm. WILLY 15.7 cm. Q1 2.8 cm, Q2 6.0 cm, Q3 2.2 cm, Q4 4.7 cm. Anatomy Cranium: normal Lateral ventricles: normal Midline falx: normal Cranium: normal shape and size 4-chamber view: normal Stomach: normal Kidneys: normal Bladder: normal Wants to know gender: yes Biometry Biometry BPD 90.7 mm 59% 36w 5d Hadlock OFD 115.3 mm 84% Nadege HC 328.9 mm 47% 36w 5d [place] AC 309.0 mm 10% 34w 6d Hadlock Femur 77.0 mm >99% 38w 4d Nadege Humerus 63.4 mm 72% 36w 6d Nadege EFW 2,969 g 47% Man Calculated by: Hadlock ([id number]) EFW (lb) 6 lb EFW (oz) 9 oz Cephalic index 0.79 19% Nicolaides HC / AC 1.06 FL / BPD 0.85 FL / AC 0.25 MVP 6.0 cm WILLY 15.7 cm FHR 141 bpm Head / Face / Neck Fabrication And Layout Craftsman 8.3 mm Biophysical Profile 0: breathing movements 2: Gross body movements 2: tone 2: Amniotic fluid volume 2: NST 07/04: Biophysical profile score Interpretation: normal DVD number 2022, Duration: 30 minutes Method ======== Transabdominal ultrasound examination, Voluson E10. View: Poor view. Impression [id number] Follow-up obstetrical ultrasound This is a miller gestation in breech/oblique presentation. biometry is consistent with prior dating. Except where noted above, the anatomy was not reviewed in detail as this is a follow-up study and the anatomy was previously assessed. Normal fluid and movement are noted. 61360 Biophysical Profile (including NST) See BPP score above. Follow-up Follow-up with weekly BPP's. Comment ========= This follow-up has been scheduled. DATE OF SERVICE: 10/14/2018 Willy Mccullough MD IMG [facility] ORDER ROMEO documented in this encounter Visit Diagnoses Not on filedocumented in this encounter Care Teams Junior Buyer Relationship Specialty Start Date End Date Emily Bejarano, DELMI [address] [place] [phone] PCP - General 04/30/18 04/25/22 documented as of this encounter
--- OUTSIDE RECORDS SUMMARY | 2024-07-02 18:54 | XMS_ITS | Encounter Summary ---
Author Organization [facility] Address [address] [place] [address] Care Team Providers Care Hemp Fiber Taker Off Name Role Phone Emily Bejarano DELMI Primary Care Provider [phone] Reason for Visit * Reason Onset Date Comments Pre-visit Orders 05/21/2018 Encounter Details Date Type Department Care Team (Late st Contact Info) Description 05/21/2018 Orders Only [facility] Women's Services - [facility] [address] [place], [place] [id number] Wilyl Mccullough MD [address] [facility], [address] [place] [address] Supervision of high risk , [...] as of this encounter Progress Notes * Anotnieta Huertas - 05/21/2018 1025 EDT GC/Chlamydia, Bacterial urine culture pended. Antonieta Huertas documented in this encounter Plan of Treatment Not on file documented as of this encounter Visit Diagnoses Diagnosis Supervision of high risk , antepartum- Primary documented in this encounter Orders Lab Orders Without Results Count Last Ordered D ate First Ordered Date CHLAMYDIA/N. GONORRHOEAE AMPLIFIED RNA 1 documented in this encounter Care Teams Hemp Fiber Taker Off Relationship Specialty Start Date End Date Emily Bejarano APRN [address] [place] [phone] PCP - General 04/30/18 04/25/22 documented as of this encounter
--- OUTSIDE RECORDS SUMMARY | 2024-07-02 18:54 | XMS_ITS | Encounter Summary ---
Author Organization [facility] Address [address] [place] [address] Care Team Providers Care Campus Security Officer Name Role Phone Emily Bejarano DELMI Primary Care Provider [phone] Encounter Details Date Type Department Care Team (Late st Contact Info) Description 08/12/[address] [facility] Obstetrics & Midwifery - [address] [address] Dahiana Genao, RN Social History Tobacco Use [...] Progress Notes * Dahiana Genao, RN - 08/12/2018 1334 EDT Received external labs from [facility]. Entered into results console, hard copy to bescanned into Prism. documented in this encounter Plan of Treatment Not on file documented as of this encounter Procedures Procedure Name Priority Date/Time Associated Diagnosis Comments URINE CHEMICAL (DIP) & SEDIMENT (MICRO) WITHOUT REFLEX TO CULTURE Routine 08/12/2018 BASIC METABOLIC PANEL (BMP) Routine 08/12/2018 documented in this encounter Results * BASIC METABOLIC PANEL (BMP) (08/12/2018) GFR, Calculated, External >120 mL/min POINT OF CARE [facility] Glucose, Serum, External 99 mg/dL POINT [facility] CARE [facility] Calculated Calcium, External POINT [facility] CARE [facility] BUN, External 8 mg/dL POINT [facility] CARE [facility] Calcium, External 9.0 mg/dL POINT [facility] CARE [facility] Chloride, External 103 mmol/L [facility]INT [facility] C[facility] CO2, External 25 mmol/L [facility]INT [facility] CARE [facility] Creatinine, External 0.54 mg/dL [facility]INT [facility] CARE [facility] Fasting?, External [facility]INT [facility] C[facility] Potassium, External 3.5 mmol/L POINT [facility] CARE [facility] Sodium, External 138 mmol/L [facility]INT [facility] CARE [facility] Blood specimen (specimen) 08/12/2018 Historical Provider MD CHEMISTRY & BLOOD GAS ORDERABLES POINT OF CARE [facility] * UA, CHEMICAL AND SEDIMENT ANALYSIS (DIPSTICK AND MICROSCOPIC) (08/12/2018) Pathologist [facility] Protein UA, External POINT OF CARE [facility] pH UA, External 6.5 POIN T OF CARE [facility] UA Comment, External POINT OF CARE [facility] Specific Mcdavid, Urine, External 1.025 POINT OF CAR E [facility] Squam Epithel, UA, External POINT OF CARE [facility] Glucose UA, External Negative POINT OF CARE [facility] WBC UA, External POI NT OF CARE [facility] Blood UA, External Negative POINT [facility] CARE [facility] Bilirubin UA, External Negative POINT [facility] CARE [facility] Nitrite UA, External Negative POINT [facility] CARE [facility] Leukocyte Esterase UA, External POINT [facility] CARE [facility] Clarity UA, External Hazy POINT [facility] CARE [facility] Renal Epithelial, External POINT [facility] CARE [facility] Bacteria, External POINT [facility] CARE [facility] Mucus, UA, External POINT [facility] CARE [facility] Ketones UA, External Negative POINT OF CARE [facility] Casts, External POIN T OF CARE [facility] Color UA, External Yellow POINT OF CARE [facility] Crystals, External POINT [facility] CARE [facility] RBC UA, External POI NT OF CARE [facility] Urobilinogen UA, External 1.0 POINT OF CARE [facility] Urine specimen (specimen) 08/12/2018 Historical Provider MD URINALYSIS ORDERA EDILMA POINT OF CARE [facility] documented in this encounter Visit Diagnoses Not on filedocumented in this encounter Care Teams Campus Security Officer Relationship Specialty Start Date End Date Emily Bejarano APRN [address] [place] [address] PCP - General 04/30/18 04/25/22 documented as of this encounter
--- OUTSIDE RECORDS SUMMARY | 2024-07-02 18:54 | XMS_ITS | Encounter Summary ---
Author Organization [facility] Address [address] [place] [address] Care Team Providers Care Yoke Presser Name Role Phone None, Provider Primary Care Provider Unavailabl e Encounter Details Date Type Department Care Team (Late st Contact Info) Description 04/25/[address] [facility] Women's Services [address] [address] Edel Valles MD [address] [facility], [address] [place] [address] Social History Tobacco Use Types [...] as of this encounter Progress Notes * Antonieta Huertas - 04/25/2018 1644 EDT episode and dating for consult on 04.30.18. Antonieta Huertas documented in this encounter Plan of Treatment Not on file documented as of this encounter Visit Diagnoses Not on filedocumented in this encounter Care Teams Yoke Presser Relationship Specialty Start Date End Date None, Provider PCP - General 08/29/17 04/29/18 documented as of this encounter
--- OUTSIDE RECORDS SUMMARY | 2024-07-02 18:54 | XMS_ITS | Encounter Summary ---
Author Organization [facility] Address [address] [place] [address] Care Team Providers Care Net Programmer Analyst Name Role Phone Emily Bejarano DELMI Primary Care Provider [phone] Encounter Details Date Type Department Care Team (Late st Contact Info) Description 05/29/2018 Orders Only [facility] Obstetrics & Midwifery - [facility] [address] [place] [address] Linda Gross, RN Social History Tobacco Use [...] Dispensed Refills Start Date End Da te levothyroxine (SYNTHROID) 112 mcg tabletIndications:Take 2 tabs Take 2 tabs by mouth daily. 180 Tab 2 05/29/2018 documented in this encounter Progress Notes * Linda Gross, RN - 05/29/2018 1340 EDT Call from Nathan at [facility] saying that Yesenia called their office looking to refill her Synthroid prescription. Nathan called [facility] as we have Yesenia's most updated labs. Per note from Dr. Mccullough on 05/22/18, review TSH for adjustments once 05/22/18 TSH value is received. Discussed with Dr. Valles. TSH in 03/2018 was 0.29 and TSH on 05/22/[address] Valles, Pt should remain on most recent dose. Per Yesenia, she takes 112mcg x2 daily. Rx for Synthroid 112mcg, take 2 tabs by mouth daily e-scribed to [facility] in [place]. documented in this encounter Plan of Treatment Not on file documented as of this encounter Visit Diagnoses Not on filedocumented in this encounter Discontinued Medications Medication Sig Discontinue Reason Start Date End Da te levothyroxine (SYNTHROID) 112 mcg tabletIndications:Take 2 tabs Take 112 mcg by mouth daily. Reorder 05/29/2018 documented as of this encounter Care Teams Net Programmer Analyst Relationship Specialty Start Date End Date Emily Bejarano APRN [address] [place] [address] PCP - General 04/30/18 04/25/22 documented as of this encounter
--- OUTSIDE RECORDS SUMMARY | 2024-07-02 18:54 | XMS_ITS | Encounter Summary ---
Author Organization [facility] Address [address] [place] [address] Care Team Providers Care Criminal Legal Assistant Name Role Phone Emily Bejarano DELMI Primary Care Provider [phone] Reason for Visit * Reason Comments Routine Visit Encounter Details Date Type Department Care Team (Late st Contact Info) Description 09/09/2018 10:45 EDT Routine [facility] Obstetrics & Midwifery - [address] [phone] Yseenia Miller MD [address] [place] [address], [address] [place] [address] GA: 32w0d Social History Tobacco Use Types Packs/Day Years [...] Sign Reading Time Taken Comments Blood Pressure 110/68 09/09/2018 1037 EDT Pulse - - Temperature - - Respiratory Rate - - Oxygen Saturation - - Inhaled Oxygen Concentration - - Weight 139.2 kg (306 lb 12.8 oz) 09/09/2018 1037 EDT Height 180.3 cm (5' 10.98) 09/09/2018 1037 EDT Body Mass Index 42.81 09/09/2018 1037 EDT documented in this encounter Progress Notes * Yesenia Miller MD - 09/09/2018 1045 EDT Subjective Yesenia Fragoso is a 37 y.o. at 32w0d here for a routine visit. Additional Notes: Feels well. Still lots of drama at home. But she is safe. FOJohn is in senior living and will not be releasedprior to her delivery. She does not plan for him to be involved in the baby's life unless he turns his life around. Has good support from friends. Needs to deliver on a Saturday, so she can have childcare. Got the flu vaccine last week at her PCPs office, but then was sick over the weekend with N/V/Dand fevers. Feeling better now. Movement:Present Contractions / Labor:None Vaginal Bleeding: None Leakage of Fluid: None Objective Vitals: BP: 110/68 Height: 180.3 cm (70.98) Weight : (!) 139.2 kg (306 lb 12.8 oz) BMI: 42.899 Movement: Present Assessment 37 y.o. at 32w0d with DM-2, hypothyroidism, h/o CD, class 3 obesity here for a routine visit. Plan Supervision of high risk , antepartum Labs up to date, although no 26 wk CBC checked Ordered CBC to be drawn next week Tdap given today, s/p flu vaccine with PCP last week Growth US scheduled for later this AM Will schedule RLTCS/BTL for 11/03 (39w6d, she can only do it on a Saturday due to childcare issues) Hypothyroidism affecting , antepartum TSH ~1 month ago slightly above goal at 3.04 Stable dose of 224 mcg throughout Will repeat TFTs next week and increase levothyroxine if elevated History of delivery, antepartum Desires RLTCS/BTL Will scheduled for 39 weeks Type 2 diabetes mellitus affecting in second trimester, antepartum Noncompliant with fingersticks and metformin Reports good dietary habits Random BS 107 in clinic today, HbA1c 5.2 last month Encouraged her to follow BS, especially as we approach delivery Monthly growth US and week BPPs scheduled--has growth today Maternal morbid obesity, antepartum, second trimester (HCC-CMS) Has lost 36 lbs in to date, not restricting calories Applauded her dietary efforts Will follow growth monthly Discussed the signs and symptoms of pre-/term labor and when to call the office. Follow-up in 1 week(s). Yesenia Miller MD documented in this encounter Miscellaneous Notes * Assessment & Plan Note - Yesenia Miller MD - 09/09/2018 1308 EDTAssociated Problem(s): Maternal morbid obesity, antepartum, second trimester (HCC-CMS) Has lost 36 lbs in to date, not restricting calories Applauded her dietary efforts Will follow growth monthly * Assessment & Plan Note - Yesenia Miller MD - 09/09/2018 1304 EDTAssociated Problem(s): Type 2 diabetes mellitus affecting in second trimester, antepartum Noncompliant with fingersticks and metformin Reports good dietary habits Random BS 107 in clinic today, HbA1c 5.2 last month Encouraged her to follow BS, especially as we approach delivery Monthly growth US and week BPPs scheduled--has growth today * Assessment & Plan Note - Yesenia Miller MD - 09/09/2018 1302 EDTAssociated Problem(s): History of delivery, antepartum Desires RLTCS/BTL Will scheduled for 39 weeks * Assessment & Plan Note - Yesenia Miller MD - 09/09/2018 1254 EDTAssociated Problem(s): Hypothyroidism affecting , antepartum TSH ~1 month ago slightly above goal at 3.04 Stable dose of 224 mcg throughout Will repeat TFTs next week and increase levothyroxine if elevated * Assessment & Plan Note - Yesenia Miller MD - 09/09/2018 1251 EDTAssociated Problem(s): Supervision of high risk , antepartum Labs up to date, although no 26 wk CBC checked Ordered CBC to be drawn next week Tdap given today, s/p flu vaccine with PCP last week Growth US scheduled for later this AM Will schedule RLTCS/BTL for 11/03 (39w6d, she can only do it on a Saturday due to childcare issues) documented in this encounter Plan of Treatment Not on file documented as of this encounter Procedures Procedure Name Priority Date/Time Associated Diagnosis Comments POCT GLUCOSE, INTERFACED Routine 09/09/2018 11:32 EDT Supervision of high risk in third trimester POCT HEMOGLOBIN Routine 09/09/2018 11:31 EDT Supervision of high risk in third trimester documented in this encounter Results * (ABNORMAL) POCT GLUCOSE (09/09/2018 11:32 EDT) Glucose, POC 107(A) 70 - 100 mg/dL [facility] Blood specimen (specimen) 09/09/2018 11:32 EDT Yesenia Miller MD POINT OF CARE YUNIOR T ORDERABLES Performing Organization Address [facility] Co de Phone Number POINT OF CARE [facility] * (ABNORMAL) POCT HEMOGLOBIN (09/09/2018 11:31 EDT) Hemoglobin, POC 0.0(A) 11.6 - 15.2 g/dL POINT OF CARE [facility] Comment:incorrect order/valu e Blood specimen (specimen) 09/09/2018 11:31 EDT Yesenia Miller MD POINT OF CARE YUNIOR T ORDERABLES Performing Organization Address [facility] Co de Phone Number POINT OF CARE [facility] documented in this encounter Visit Diagnoses Diagnosis Supervision of high risk in third trimester- Primary Unspecified high-risk Hypothyroid in , antepartum, third trimester Supervision of high risk , antepartum Hypothyroidism affecting , antepartum History of delivery, antepartum Type 2 diabetes mellitus affecting in second trimester, antepartum Maternal morbid obesity, antepartum, second trimester ([facility]) documented in this encounter Care Teams Criminal Legal Assistant Relationship Specialty Start Date End Date Emily Bejarano APRN [address] [place] [phone] PCP - General 04/30/18 04/25/22 documented as of this encounter
--- OUTSIDE RECORDS SUMMARY | 2024-07-02 18:54 | XMS_ITS | Encounter Summary ---
Author Organization [facility] Address [address] [place] [address] Care Team Providers Care Wild Animal Caretaker Name Role Phone Emily Bejarano DELMI Primary Care Provider Reason for Visit * Reason Onset Date Comments Pre-visit Orders 07/02/2018 Encounter Details Date Type Department Care Team (Late st Contact Info) Description 07/02/2018 Orders Only [facility] - [address] [address] Myah Freitas MD [address] [place] [address], [address] [place] [address] Supervision of high risk , antepartum (Primary Dx); Need for Tdap vaccination Social History Tobacco Use Types Packs/Day Years [...] encounter Progress Notes * Antonieta Huertas - 07/02/2018 1627 EDT CBC, HgbA1c, Tdap pended. Antonieta Huertas documented in this encounter Plan of Treatment Not on file documented as of this encounter Visit Diagnoses Diagnosis Supervision of high risk , antepartum- Primary Need for Tdap vaccination Need for prophylactic vaccination with combined cjgbhtpymo-qeepyvf-[id number] (DTP) vaccine documented in this encounter Care Teams Wild Animal Caretaker Relationship Specialty Start Date End Date Emily Bejarano APRN [address] [place] [phone] PCP - General 04/30/18 04/25/22 documented as of this encounter
--- OUTSIDE RECORDS SUMMARY | 2024-07-02 18:54 | XMS_ITS | Encounter Summary ---
Author Organization [facility] Address [address] [place] [address] Care Team Providers Care Aquatics Manager Name Role Phone None, Provider Primary Care Provider Unavailabl e Reason for Visit * Reason Comments Cough # weeks of a cough a nd congestion. On antibiotics. Was informed that the shleter she was staying at a women that worked there developed whooping cough. Concerned she has it as well. Encounter Details Date Type Department Care Team (Late st Contact Info) Description 08/29/2017 19:37 EDT - 08/29/2017 22:15 EDT Emergency [facility] Emergency Department - [address] [id number] Flroentino Butler MD [address] [facility], [address] 1 [place] [phone] Emergency, MD Madina Viral URI with cough (Primary Dx) Discharge Disposition: Home or Self [...] Sign Reading Time Taken Comments Blood Pressure 155/100 08/29/2017 1943 EDT Pulse 103 08/29/2017 1943 EDT Temperature 36.6 ??C (97.9 ??F) 08/29/20171942 EDT Respiratory Rate 18 08/29/20171942 EDT Oxygen Saturation 100% 08/29/20171942 EDT Inhaled Oxygen Concentration - - Weight 153.8 kg (339 lb) 08/29/20171942 EDT Height 180.3 cm (5' 11) 08/29/20171942 EDT Body Mass Index 47.28 08/29/20171942 EDT documented in this encounter Discharge Diagnoses Diagnosis J06.9 Acute upper respiratory infection, unspecified-J06.9[ICD-10-CM] F17.200 Nicotine dependence, unspecified, uncomplicated-F17.200[ICD-10-CM] E66.9 Obesity, unspecified-E66.9[ICD-10-CM] J45.909 Unspecified asthma, uncomplicated-J45.909[ICD-10-CM] documented in this encounter Discharge Instructions * Discharge Instructions* Florentino Butler MD - 08/29/2017 22:09 EDT Return if symptoms worsen or new symptoms develop. I highly recommend that he stop smoking cigarettes. Keep yourself well hydrated. * Attachments The following attachments cannot be sent through Care Everywhere. * URI (UPPER RESPIRATORY INFECTION): VIRAL (CZECH) documented in this encounter Medications at Time of Discharge Medication Sig Dispensed Refills Start Date End Date albuterol (PROVENTIL HFA, VENTOLIN HFA) 90 mcg/Actuation inhaler Inhale 2 Puffs as directed every 4 hours. acetaminophen-codeine (TYLENOL #3) 300-30 mg per tablet Take 1 Tab by mouth every 4 hours as needed for Pain. 10 Tab 0 09/17/2011 05/05/2020 fluticasone-salmeterol (ADVAIR) 250-50 mcg/Dose diskus inhaler Inhale 1 Puff as directed every 12 hours. 04/25/2020 documented as of this encounter Discharge Disposition Disposition Code Departure Means Destination Home or Self Care documented in this encounter ED Notes * Darell Vazquez RN - 08/29/2017 4870 EDT Pt d/c ambulatory with a normal gait and in NAD. Pt d/c with son. Pt provided with instructions. Resp unlabored. Skin warm and dry. Pt AO. * Florentino Butler MD - 08/29/20172115 EDT DOS: 08/29/2017 Chief Complaint Patient presents with ??? Cough # weeks of a cough and congestion. On antibiotics. Was informed that the shleter she was staying [facility] that worked there developed whooping cough. Concerned she has it as well. HPI HPI Comments: I, Sunita Jeremy, am scribing for Florentino Butler MD while he is personally performing the service. Sunita Luna 08/29/2017 21:18 Yesenia Fragoso is a 36 y.o. female with a history of asthma, obesity, migraines, anxiety, and depression. She presents to the ED with 3 weeks of non-productive cough and congestion. The patient states that she was diagnosed with pneumonia 3 weeks ago and was placed on antibiotics. She was recently informed that there was whooping cough exposure at the skilled nursing she was staying at in [place]. Patient denies fevers or chills. Patient denies feeling lightheaded or dizzy. Patient denies sore throat, earache, facial pain or headache. Patient notes cough but denies shortness of breath. The cough is nonproductive. Patient denies chest pain. Patient denies abdominal pain, nausea, vomiting, diarrhea. Patient denies dysuria or urinary frequency. Patient denies pain or swelling of her lower extremities. Patient denies I skin rash. Patient now presents for further evaluation and treatment. Social History- The patient is a current everyday smoker. The history is provided by the patient and medical records. Cough Cough characteristics: Non-productive and dry Severity: Moderate Onset quality: Gradual Duration: 3 weeks Smoker: yes Context: sick contacts Relieved by: Nothing Worsened by: Nothing Ineffective treatments: None tried Associated symptoms: rhinorrhea Associated symptoms: no chest pain, no chills, no diaphoresis, no ear fullness, no eye discharge, no fever, no headaches, no rash, no shortness of breath, no sinus congestion, no sore throat and no wheezing Review of Systems Review of Systems Constitutional: Negative for chills, diaphoresis and fever. HENT: Positive for congestion and rhinorrhea. Negative for sinus pressure, sneezing, sore throat, tinnitus and trouble swallowing. Eyes: Negative for pain and discharge. Respiratory: Positive for cough. Negative for chest tightness, shortness of breath and wheezing. Cardiovascular: Negative for chest pain. Gastrointestinal: Negative for abdominal pain, diarrhea and vomiting. Endocrine: Negative. Genitourinary: Negative for difficulty urinating and flank pain. Musculoskeletal: Negative for back pain and neck stiffness. Skin: Negative for rash and wound. Allergic/Immunologic: Negative for immunocompromised state. Neurological: Negative for syncope, weakness, light-headedness and headaches. Psychiatric/Behavioral: Negative for confusion. The patient is not nervous/anxious. All other systems reviewed and are negative. The patient's past medical, family and social history was reviewed and updated as needed. Allergies Allergen Reactions ??? Morphine Hives Vital Signs Temp: 36.6 ??C (97.9 ??F) Temp src: Temporal Pulse: 103 Resp: 18 SpO2: 100 % BP: (!) 155/100 BP Device: BP Machine Patient Position: Sitting BP Cuff Location: Left arm O2 Device: None (Room air) Physical Exam Constitutional: She is oriented to person, place, and time. She appears well- developed and well-nourished. No distress. HENT: Head: Normocephalic and atraumatic. Right Ear: Tympanic membrane normal. Left Ear: Tympanic membrane normal. Mouth/Throat: Oropharynx is clear and moist and mucous membranes are normal. No oropharyngeal exudate, posterior oropharyngeal edema or posterior oropharyngeal erythema. Eyes: Conjunctivae are normal. Pupils are equal, round, and reactive to light. Neck: Normal range of motion. Cardiovascular: Normal rate and regular rhythm. Pulmonary/Chest: Effort normal and breath sounds normal. No respiratory distress. She has no wheezes. She exhibits no tenderness. Abdominal: Soft. Bowel sounds are normal. She exhibits no distension. There is no tenderness. Musculoskeletal: Normal range of motion. She exhibits no edema or tenderness. Neurological: She is alert and oriented to person, place, and time. No cranial nerve deficit. She exhibits normal muscle tone. Skin: Skin is warm and dry. No rash noted. Psychiatric: She has a normal mood and affect. Nursing note and vitals reviewed. RESULTS EKG orders: None Radiology orders: None ED Lab Results Labs Reviewed - No data to display Relevant Data Procedures ED COURSE A medical screening exam was performed. The patient is a 36 y.o. female who presents to the ED with 3 weeks of non- productive cough and congestion. BP (!) 155/100 Pulse 103 Temp 36.6 ??C (97.9 ??F) Resp 18 SpO2 100% Physical exam as above. Lungs clear to auscultation bilaterally. Normal TM's bilaterally. Posteriororopharynx not injected. Differential diagnosis includes but is not limited to: viral syndrome, pneumonia, URI, cigarette smoking Patient encouraged to stop smoking cigarettes. Patient appears to have a viral URI. On reevaluation at 22:05, the patient was appropriate for discharge home. Prior to discharge usual and customary precautions were reviewed with the patient and family including follow-up instructionsand reasons to return to the Emergency Department if condition worsens, does not improve as expected, or other new concerns arise. ASSESSMENT AND PLAN Final diagnoses: Viral URI with cough DISPOSITION: Discharged The patient's pain was managed to an adequate level weighing risk vs. benefit of further medications. Upon departure from the Emergency Department, the patient's pain was 0 on a zero to ten scale. Any further pain treatment will be at the discretion of the provider following up with the patient based on their clinical assessment. Condition at departure from the Emergency Department: Good PCP: Provider None MDM Number of Diagnoses or Management Options Viral URI with cough: new, needed workup Amount and/or Complexity of Data Reviewed Independent visualization of images, tracings, or specimens: yes (Pulse oximetry) Risk of Complications, Morbidity, and/or Mortality Presenting problems: moderate Diagnostic procedures: minimal Management options: moderate General comments: 3 Patient Progress Patient progress: stable This documentation is recorded by Sunita Luna acting as Scribe under the direction and presence of Florentino Butler MD. Florentino Butler MD: I personally performed the services recorded by the scribe in my presence. I confirm the scribe's documentation has been reviewed by me to accurately and completely record my work,treatment, procedures, and medical decision making. 08/30/2017 14:09 No flowsheet data found. documented in this encounter Plan of Treatment Not on file documented as of this encounter Visit Diagnoses Diagnosis Viral URI with cough- Primary Acute upper respiratory infections of unspecified site documented in this encounter Care Teams Aquatics Manager Relationship Specialty Start Date End Date None, Provider PCP - General 08/29/17 04/29/18 documented as of this encounter
--- OUTSIDE RECORDS SUMMARY | 2024-07-02 18:54 | XMS_ITS | Encounter Summary ---
Author Organization [facility] Address [address] [place] [address] Care Team Providers Care Metal Turner Name Role Phone Emily Bejarano Lena AWAD Primary Care Provider [phone] Reason for Referral * STUDENT SERVICES COUNSELOR (Routine) - New Request Specialty Diagnoses / Procedures Referred By Luiza alvarez Referred To Contact Diagnoses Type 2 diabetes mellitus affecting in second trimester, antepartum Procedures [facility] BIOPHYSICAL PROFILE Willy Mccullough MD [address] [place] [id number] Referral ID Status Reason Start Date Expiration Date V isits Requested Visits Authorized [id number] New Request 08/07/2018 1 1 Reason for Visit * Reason Comments Routine Visit Encounter Details Date Type Department Care Team (Late st Contact Info) Description 08/07/2018 11:00 EDT Routine [facility] - [address] [address] Willy Mccullough MD [address] [place] [phone] GA: 27w2d Discharge Disposition: Auto Discharge Social History Tobacco [...] Sign Reading Time Taken Comments Blood Pressure 130/62 08/07/2018 1117 EDT Pulse - - Temperature - - Respiratory Rate - - Oxygen Saturation - - Inhaled Oxygen Concentration - - Weight 141.1 kg (311 lb) 08/07/2018 1117 EDT Height 180.3 cm (5' 10.98) 08/07/2018 1117 EDT Body Mass Index 43.4 08/07/2018 1117 EDT documented in this encounter Discharge Diagnoses Diagnosis O09.90 Supervision of high risk , unspecified, unspecified trimester-O09.90[ICD-10-CM] O24.112 Pre-existing type 2 diabetes, in , second trimester-O24.112[ICD-10-CM] O99.280 Endocrine, nutritional and metabolic diseases complicating , unspecified trimester-O99.280[ICD-10-CM] O34.219 Maternal care for unsp type scar from previous del-O34.219[ICD-10-CM] E03.9 Hypothyroidism, unspecified-E03.9[ICD-10-CM] documented in this encounter Discharge Disposition Disposition Code Departure Means Destination Auto Discharge documented in this encounter Progress Notes * Willy Mccullough MD - 08/07/2018 1100 EDT Supervision of high risk , antepartum MFM attending Note that today's visit contains both an APV and a separately identifiable problem visit for 2 pre- conditions note S: She is feeling okay but not great. Very stressed over her life and her children. Her oldest child now has new charges against him and could face intermediate time. She says it could also cost her her section 8 housing. She feels she is having trouble coping with all of this and still trying to pursue employment. She feels safe though. She just got a new (used) car, so she feels she has something for herself. She noted she wanted her tubes tied. O: see vitals A: IUP at 27w2d with challenging social situation and other dx She still has some labs pending (GC/chlamydia) P: RTC 3 weeks I reviewed the benefits, limitations, risks and alternatives to elective sterilization in general and tubal ligation more specifically. We discussed these and she signed tubal consents. Get to lab today Type 2 diabetes mellitus affecting in second trimester, antepartum Today I scheduled her growth scans and BPPs for the rest of the Her control is suboptimal. We discussed the importance of better control to optimize health. Fortunately, while her control is suboptimal, her highs are only in the 120-130's. Her blood sugar log is too sparse for me to want to make changes. Type 2 diabetes mellitus, without long-term current use of insulin ([facility]) Pre-conception condition note S: She feels her sugars are pretty good and doesn't think she can to do more. Her blood sugar logis very sparse. She denies feeling very low. [...] values to understand her control so that wecould safely adjust her medications. She said she does her BS when she thinks about it and is doingthe best she can. Her life is very hectic and she just isn't able to get on a regular schedule withall the pressures from both herself and her kids. She says she will do her best. I spent the entire 15-minutes of my 15-minutes spent on management pre- conception medical conditions (Diabetes, hypothyroidism) in [id number]-hp-[id number] counseling managing those conditions. Acquired hypothyroidism Pre-conception medical condition note S: She says [...] pre- conception medical conditions (Diabetes, hypothyroidism) in [id number] counseling managing those conditions. History of delivery, antepartum She wants a repeat and tubal. Hypothyroidism affecting , antepartum Her growth scans through the rest of the were ordered. Willy Mccullough MD 08/07/2018 12:34 documented in this encounter Miscellaneous Notes * Assessment & Plan Note - Willy Mccullough MD - 08/07/2018 1232 EDTAssociated Problem(s): Hypothyroidism affecting , antepartum Her growth scans through the rest of the were ordered. * Assessment & Plan Note - Willy Mccullough MD - 08/07/2018 1231 EDTAssociated Problem(s): History of delivery, antepartum She wants a repeat and tubal. * Assessment & Plan Note - Willy Mccullough MD - 08/07/2018 1227 EDTAssociated Problem(s): Acquired hypothyroidism (Resolved 09/09/2018) Pre-conception medical condition note S: She says [...] pre- conception medical conditions (Diabetes, hypothyroidism) in [id number]-mh-[id number] counseling managing those conditions. * Assessment & Plan Note - Willy Mccullough MD - 08/07/2018 1220 EDTAssociated Problem(s): Type 2 diabetes mellitus, without long-term current use of insulin ([facility]) Pre-conception condition note S: She feels her sugars are pretty good and doesn't think she can to do more. Her blood sugar logis very sparse. She denies feeling very low. [...] values to understand her control so that wecould safely adjust her medications. She said she does her BS when she thinks about it and is doingthe best she can. Her life is very hectic and she just isn't able to get on a regular schedule withall the pressures from both herself and her kids. She says she will do her best. I spent the entire 15-minutes of my 15-minutes spent on management pre- conception medical conditions (Diabetes, hypothyroidism) in [id number]-[id number] counseling managing those conditions. * Assessment & Plan Note - Willy Mccullough MD - 08/07/2018 1219 EDTAssociated Problem(s): Type 2 diabetes mellitus affecting in second trimester, antepartum Today I scheduled her growth scans and BPPs for the rest of the Her control is suboptimal. We discussed the importance of better control to optimize health. Fortunately, while her control is suboptimal, her highs are only in the 120-130's. Her blood sugar log is too sparse for me to want to make changes. * Assessment & Plan Note - Willy Mccullough MD - 08/07/2018 1216 EDTAssociated Problem(s): Supervision of high risk , antepartum MFM attending Note that today's visit contains both an APV and a separately identifiable problem visit for 2 pre- conditions note S: She is feeling okay but not great. Very stressed over her life and her children. Her oldest child now has new charges against him and could face intermediate time. She says it could also cost her her section 8 housing. She feels she is having trouble coping with all of this and still trying to pursue employment. She feels safe though. She just got a new (used) car, so she feels she has something for herself. She noted she wanted her tubes tied. O: see vitals A: IUP at 27w2d with challenging social situation and other dx She still has some labs pending (GC/chlamydia) P: RTC 3 weeks I reviewed the benefits, limitations, risks and alternatives to elective sterilization in general and tubal ligation more specifically. We discussed these and she signed tubal consents. Get to lab today documented in this encounter Plan of Treatment Not on file documented as of this encounter Procedures Procedure Name Priority Date/Time Associated Diagnosis Comments [facility] BIOPHYSICAL PROFILE Routine 09/16/2018 10:47 EDT Type 2 diabetes mellitus affecting in second trimester, antepartum documented in this encounter Results * [facility] BIOPHYSICAL PROFILE (09/16/2018 10:47 EDT) Anatomical Region Laterality Modality Other 09/16/2018 10:4 7 EDT 09/16/2018 12:26 EDT Narrative 09/16/2018 12:26 EDT Indication BMI 47.84 Advanced maternal age Diabetes, pregestational, type 2 [...] + 2 d GA by stated dating ??33 w + 0 d KADE by stated dating: ?11/04/2018 Assigned: ??Dating performed on 07/03/2018, based on the external assessment (on 03/20/2018) Assigned GA ?33 w + 0 d Assigned KADE: ??11/04/2018 General Evaluation Cardiac activity: Present. FHR 145 bpm. movements: visualized. Presentation: oblique, head RLQ. Placenta: posterior. Amniotic Fluid Assessment Amount of AF: normal MVP 6.4 cm. WILLY 12.6 cm. Q1 6.4 cm, Q2 3.9 cm, Q3 2.3 cm, Q4 0.0 cm Biophysical Profile 2: breathing movements 2: Gross body movements 2: tone 2: Amniotic fluid volume 2: NST 09/03: Biophysical profile score Interpretation: normal DVD number 192 T 1993, Duration: 15 minutes Method ======== Voluson E10, Transabdominal ultrasound examination. View: Limited by maternal habitus and position. Impression [id number] Biophysical Profile (including NST) This is a miller . Please see BPP score above. Follow-up Follow-up with weekly BPPs and growth every 4 weeks. Comment ========= This follow-up has been scheduled. DATE OF SERVICE: 09/16/2018 Procedure Note Loli Chun MD - 09/16/2018 Indication BMI 47.84 Advanced maternal age Diabetes, pregestational, type 2 [...] + 2 d GA by stated dating 33 w + 0 d KADE by stated datin11/04/2018 Assigned: Dating performed on 07/03/2018, based on the external assessment (on 03/20/2018) Assigned GA 33 w + 0 d Assigned KADE: 11/04/2018 General Evaluation Cardiac activity: Present. FHR 145 bpm. movements: visualized. Presentation: oblique, head RLQ. Placenta: posterior. Amniotic Fluid Assessment Amount of AF: normal MVP 6.4 cm. WILLY 12.6 cm. Q1 6.4 cm, Q2 3.9 cm, Q3 2.3 cm, Q4 0.0 cm Biophysical Profile 2: breathing movements 2: Gross body movements 2: tone 2: Amniotic fluid volume 2: NST 09/03: Biophysical profile score Interpretation: normal DVD number 192 T 1993, Duration: 15 minutes Method ======== Voluson E10, Transabdominal ultrasound examination. View: Limited by maternal habitus and position. Impression [id number] Biophysical Profile (including NST) This is a miller . Please see BPP score above. Follow-up Follow-up with weekly BPPs and growth every 4 weeks. Comment ========= This follow-up has been scheduled. DATE OF SERVICE: 09/16/2018 Willy Mccullough MD [facility] ORDER ROMEO documented in this encounter Visit Diagnoses Diagnosis Supervision of high risk , antepartum- Primary Type 2 diabetes mellitus affecting in second trimester, antepartum Type 2 diabetes mellitus without complication, without long-term current use of insulin ([facility]) Hypothyroidism affecting , antepartum Acquired hypothyroidism Unspecified hypothyroidism History of delivery, antepartum documented in this encounter Care Teams Metal Turner Relationship Specialty Start Date End Date Emily Bejarano APRN [address] [place] [phone] PCP - General 04/30/18 04/25/22 documented as of this encounter
--- OUTSIDE RECORDS SUMMARY | 2024-07-02 18:55 | XMS_ITS | Encounter Summary ---
Author Organization [facility] Address [address] [place] [address] Care Team Providers Care Selector Packer Name Role Phone Betsy Perez MD Primary Care Provider [phone] Encounter Details Date Type Department Care Team (Late st Contact Info) Description 11/23/2009 Orders Only [facility] [phone] James Barrett MD [address] [place] [address], [facility] [address] [place] [phone] Social History Tobacco Use Types Packs/Day Years Used Date Smoking Tobacco: Every Day Cigarettes Alcohol Use Standard Drinks/Week Comments No 0 [...] Procedure Name Priority Date/Time Associated Diagnosis Comments [facility] ROUTINE 11/23/2009 14:43 EST documented in this encounter Results * [facility] ROUTINE (11/23/2009 14:43 EST) Anatomical Region Laterality Modality Other 11/23/2009 14:4 3 EST 11/24/2009 18:18 EST Narrative 11/24/2009 18:18 EST Please refer to the separate [facility] report. ??Contact Maternal Medicine. Procedure Note 11/24/2009 Please refer to the separate [facility] report. Contact Maternal Medicine. James Barrett MD [facility] ORDERAB LES documented in this encounter Visit Diagnoses Not on filedocumented in this encounter Care Teams Selector Packer Relationship Specialty Start Date End Date Betsy Perez MD [address] [place] [phone] PCP - General 08/08/09 12/29/09 documented as of this encounter
--- OUTSIDE RECORDS SUMMARY | 2024-07-02 18:55 | XMS_ITS | Encounter Summary ---
Author Organization [facility] Address [address] [place] [address] Care Team Providers Care Hand Pattern Marker Name Role Phone Betsy Keys MD Primary Care Provider [phone] Reason for Visit * Reason Comments Pharyngitis FOR 2 DAYS- NO FEVER . Encounter Details Date Type Department Care Team (Late st Contact Info) Description 10/27/2009 21:38 EST - 10/27/2009 22:45 EST Emergency [facility] - [address] [id number] Nicolás Borges PA-C [address] [place] [address] Emergency, MD Madina Viral URI Discharge Disposition: Home or Self Care Social [...] Sign Reading Time Taken Comments Blood Pressure 127/62 10/27/2009 2144 EST Pulse 90 10/27/2009 2144 EST Temperature 37.3 ??C (99.1 ??F) 10/27/2009 2144 EST Respiratory Rate 18 10/27/2009 2144 EST Oxygen Saturation 98% 10/27/2009 2144 EST Inhaled Oxygen Concentration - - Weight - - Height - - Body Mass Index - - documented in this encounter Discharge Instructions * Discharge Instructions* Nicolás Murrell PA - 10/27/2009 22:34 EST Images from the original note were not included. [facility] Patient Instructions Upper Respiratory Infection in Adults: After Your Visit Your Care Instructions An upper respiratory infection, also called a URI, is an infection of the nose, sinuses, or throat.Viruses or bacteria can cause URIs. Colds, the flu, and sinusitis are examples of URIs. These infections are spread by coughs, sneezes, and close contact. You may need antibiotics to treat bacterial infections. Antibiotics do not help viral infections. But you can treat most infections with home care. This may include drinking lots of fluids and jiictrsuvv-jis-ocrwfez pain medicine. You will probably feel better in 4 to 10 days. Follow-up care is a suggs part of your treatment and safety. Be sure to make and go to all appointments, and call your doctor if you are having problems. It???s also a good idea to know your test results and keep a list of the medicines you take. How can you care for yourself at home? ?? Drink plenty of fluids to prevent dehydration. Stick to water and other caffeine-free clear liquids until you feel better. If you have kidney, heart, or liver disease and have to limit fluids, talk with your doctor before you increase the amount of fluids you drink. Take an pqlt-pcz-xmpuhhn pain medicine, such as acetaminophen (Tylenol), ibuprofen (Advil, Motrin),or naproxen (Aleve). Read and follow all instructions on the label. If your doctor prescribed antibiotics, take them as directed. Do not stop taking them just because you feel better. You need to take the full course of antibiotics. Ask your doctor about cough medicines and decongestants. Some doctors recommend these medicines, while others feel that they do not help. If you use an btzy-iyv-kiiezqx medicine, treat a symptom witha medicine for only that problem. For example, if you have a cough, use a cough medicine--not a medicine for cough, stuffy nose, and headache. Be careful when taking rvrw-hmf-nykkjtu cold or flu medicines and Tylenol at the same time. Many ofthese medicines have acetaminophen, which is Tylenol. Read the labels to make sure that you are nottaking more than the recommended dose. Too much acetaminophen (Tylenol) can be harmful. Get plenty of rest. Use saline (saltwater) nasal washes to help keep your nasal passages open and wash out mucus and bacteria. You can buy saline nose drops at a grocery store or drugstore. Or you can make your own at home by mixing ?? teaspoon salt, 1 cup water (at room temperature) and ?? teaspoon baking soda. If you make your own, fill a bulb syringe with the solution, insert the tip into your nostril, and squeeze gently. Blow your nose. Use a vaporizer or humidifier to add moisture to your bedroom. Follow the instructions for cleaningthe machine. Do not smoke. Avoid secondhand smoke. If you need help quitting, talk to your doctor about stop-smoking programs and medicines. These can increase your chances of quitting for good. When should you call for help? Call 911 anytime you think you may need emergency care. For example, call if: ?? You have severe trouble breathing. You have rapid swelling of the throat or tongue. Call your doctor now or seek immediate medical care if: ?? You have a fever with a stiff neck or a severe headache. You have signs of needing more fluids. You have sunken eyes, a dry mouth, and pass only a little dark urine. You cannot keep down fluids or medicine. Watch closely for changes in your health, and be sure to contact your doctor if: ?? You have a deep cough and a lot of mucus. You are too tired to eat or drink. You have a new symptom, such as a sore throat, an earache, or a rash. You do not get better as expected. Where can you learn more? Go to www.[employer].net/fahc Enter K520 in the search box to learn more about Upper Respiratory Infection in Adults: After YourVisit. ?? 2005 - 2008 [employer]. Care instructions adapted under license by [facility], [facility] . This care instruction is for use with your licensed healthcare professional. If you have questions about a medical condition or this instruction, always ask your healthcare professional. [facility] disclaims any warranty or liability for your use of this information. documented in this encounter Medications at Time of Discharge Medication Sig Dispensed Refills Start Date End Date albuterol (PROVENTIL HFA, VENTOLIN HFA) 90 mcg/Actuation inhaler Inhale 2 Puffs as directed every 4 hours. fluticasone-salmeterol (ADVAIR) 250-50 mcg/Dose diskus inhaler Inhale 1 Puff as directed every 12 hours. 04/25/2020 documented as of this encounter Discharge Disposition Disposition Code Departure Means Destination Home or Self Care Walk-out Home documented in this encounter ED Notes * Nicolás Murrell PA - 10/27/2009 2211 EST DOS: 10/27/2009 Chief Complaint Patient presents with ??? Pharyngitis FOR 2 DAYS- NO FEVER. Patient is a 29 y.o. female presenting with throat problem. The history is provided by the patient. Pharyngitis This is a new problem. The current episode started yesterday. The problem has not changed since onset. There has been no fever. Associated symptoms include congestion, ear pain and swollen glands. Pertinent negatives include no diarrhea, no vomiting, no headaches, no plugged ear sensation, no shortness of breath, no stridor, no trouble swallowing, no stiff neck and no cough. She has tried nothingfor the symptoms. Review of Systems Constitutional: Negative for fever and chills. HENT: Positive for ear pain and congestion. Negative for trouble swallowing and neck stiffness. Eyes: Negative. Negative for visual disturbance. Respiratory: Negative. Negative for cough, shortness of breath and stridor. Cardiovascular: Negative for chest pain. Gastrointestinal: Negative for vomiting, abdominal pain and diarrhea. Genitourinary: Negative. Negative for dysuria. Musculoskeletal: Negative for back pain. Skin: Negative for rash. Neurological: Negative. Negative for headaches. Psychiatric/Behavioral: Negative for confusion. All other systems reviewed and are negative. Past Medical History Diagnosis Date ??? Anxiety ??? Asthma ??? Depression No past surgical history on file. No Known Allergies History Substance Use Topics ??? Tobacco Use: Yes -- 0.2 packs/day ??? Alcohol Use: No No family history on file. BP 127/62 Pulse 90 Temp(Src) 37.3 ??C (99.1 ??F) (Oral) Resp 18 SpO2 98% Physical Exam Nursing note and vitals reviewed. Constitutional: She is oriented. She appears well-developed and well-nourished. HENT: Head: Normocephalic and atraumatic. Right Ear: Hearing, tympanic membrane and external ear normal. Left Ear: Hearing, tympanic membrane and external ear normal. Nose: Nose normal. Mouth/Throat: Oropharynx is clear and moist. No oropharyngeal exudate. Eyes: Extraocular motions are normal. Pupils are equal, round, and reactive to light. Right eye exhibits no discharge. Left eye exhibits no discharge. Neck: Normal range of motion. Neck supple. No tracheal deviation present. Cardiovascular: Normal rate, regular rhythm and normal heart sounds. Pulmonary/Chest: Breath sounds normal. No respiratory distress. Abdominal: Soft. Bowel sounds are normal. No tenderness. Pt preg. Musculoskeletal: Normal range of motion. Neurological: She is alert and oriented. She has normal strength. No sensory deficit. Skin: No rash noted. Psychiatric: She has a normal mood and affect. Her behavior is normal. Thought content normal. Radiology orders: None Procedures ED Course: Pt with viral presentation, will DC homw with follow up. Discharge Prescriptions New Prescriptions No Discharge Prescriptions for this patient MDM Number of Diagnoses and Management Options General comments: 3 Encounter Diagnoses Code Name Primary? Qualifier ??? 465.9W Viral URI PCP: BETSY KEYS MD 10/27/2009 10:34 PM ED Attending Available for Supervision: Willy Villasenor * Cami Arredondo - 10/27/20092143 EST PT IS 5 MONTHS * Cami Arredondo - 10/27/20092141 EST SMOKES 3-4 /DAY documented in this encounter Miscellaneous Notes * Scanned Note-Null - Inpatient, Physician - 10/30/2009 0707 EST documented in this encounter Plan of Treatment Not on file documented as of this encounter Visit Diagnoses Diagnosis Viral URI Acute upper respiratory infections of unspecified site documented in this encounter Administered Medications Inactive Administered Medications - up to 3 most recent administrations Medication Order MAR Action Action Date Dose Rate Site acetaminophen (TYLENOL) 325 mg tablet 1 dose, Starting on Deysi 10/27/09 at 2247, Until Deysi 10/27/09 at 2244 acetaminophen (TYLENOL) tablet 325 mg 325 mg, oral, NOW X1, 1 dose, On Deysi 10/27/09 at 2300, STAT Given 10/27/2009 22:44 EST mg documented in this encounter Discontinued Medications Medication Sig Discontinue Reason Start Date End Da te amoxicillin (AMOXIL) 500 mg capsule Take 2 Caps by mouth every 12 hours. Therapy completed 10/03/2009 10/27/2009 ondansetron (ZOFRAN) 4 mg tablet Take 1 Tab by mouth every 8 hours as needed for Nausea. 08/08/2009 10/27/2009 oseltamivir (TAMIFLU) 75 mg capsule Take 1 Cap by mouth 2 times daily. Therapy completed 10/03/2009 10/27/2009 documented as of this encounter Active and Recently Administered Medications Times are shown in EST. Scheduled Medication Order 10/25/2009 10/26/2009 10/27/2009 acetaminophen (TYLENOL) tablet 325 mg (COMPLETED) 325 mg, oral, NOW X1, 1 dose, On Deysi 09 at 2300, STAT 2244 (Given - Provid er: Merlyn Gaspar RN - Comment: Pt given 4 tablets of 325mg Tylenol tabs for d/c home with instructions) documented in this encounter Orders Medications Ordered That Sheng ht Not Have Been Administered Count Last Ordered Date First Ordered Date Ibuprofen 600 mg Tab Starter Pack 1 009 documented in this encounter Care Teams Hand Pattern Marker Relationship Specialty Start Date End Date Betsy Keys MD [address] [place] [address] PCP - General 08/08/09 12/29/09 documented as of this encounter
--- OUTSIDE RECORDS SUMMARY | 2024-07-02 18:55 | XMS_ITS | Encounter Summary ---
Author Organization [facility] Address [address] [place] [address] Care Team Providers Care Product Marketer Name Role Phone Marlene Perry MD Primary Care Provider [phone] Reason for Visit * Reason Comments New Patient Visit warts, last seen 200 6 Encounter Details Date Type Department Care Team (Late st Contact Info) Description 09/17/2011 11:30 EDT Office Visit [facility] Gynecologic Oncology - [facility] [address], [place] [id number] Ai Costa MD [address] [facility], [facility] [address] [place] [address] Carlita Glasgow PA-C [address] [facility], [facility] [address] [place] [address] Genital warts (Primary Dx) Social History Tobacco Use Types [...] - Inhaled Oxygen Concentration - - Weight 139.1 kg (306 lb 9.6 oz) 09/17/2011 1058 EDT Height 176.5 cm (5' 9.5) 09/17/2011 1058 EDT Body Mass Index 44.63 09/17/2011 1058 EDT documented in this encounter Ordered Prescriptions Prescription Sig Dispensed Refills Start Date End Da te acetaminophen-codeine (TYLENOL #3) 300-30 mg per tablet Take 1 Tab by mouth every 4 hours as needed for Pain. 10 Tab 0 09/17/2011 05/05/2020 documented in this encounter Progress Notes * Carlita Glasgow, HERO - 09/17/2011 1346 EDT Images from the original note were not included. Subjective: Patient ID: Yesenia Fragoso is an 30 y.o. female. Chief Complaint Patient presents with ??? New Patient Visit [facility], last seen 2005 HPI Yesenia Fragoso is a 30 y.o. woman who presents today with recurrent vulvar and perianal condyloma. [id number], she underwent excision of vulvar, perianal and umbilical condyloma in the operating room. Shenotes that she noticed recurrent lesions about 2 years ago when she was , she states that she has been treated with Aldara as well as TCA with no noted improvement in her symptoms. Of note, she recently learned that she is , she believes that she is 6-8 weeks , and has an ultrasound scheduled for dating. She states that she did have a pap smear last month which was normal. Patient Active Problem List Diagnoses ??? Encounter for routine screening for malformation using ultrasonics ??? Obesity Past Medical History Diagnosis Date ??? Anxiety ??? Asthma ??? Migraines ??? Depression stopped prozac 08/2011 when discovered History reviewed. No pertinent past surgical history. History reviewed. No pertinent family history. Social History Substance Use Topics ??? Smoking status: Current Everyday Smoker -- 0.2 packs/day ??? Smokeless tobacco: Not on file Comment: smoking 5 per day ??? Alcohol Use: No Current Outpatient Prescriptions on File Prior to Visit Medication Sig Dispense Refill ??? albuterol (PROVENTIL HFA, VENTOLIN HFA) 90 mcg/Actuation inhaler Inhale 2 Puffs as directed every 4 hours. ??? fluticasone-salmeterol (ADVAIR) 250-50 mcg/Dose diskus inhaler Inhale 1 Puff as directed every 12 hours. No Known Allergies ROS - See HPI Objective: Ht 176.5 cm (69.5) Wt 139.073 kg (306 lb 9.6 oz) BMI 44.63 kg/m2 LMP 08/02/2011 ? No Physical Exam Genitourinary: Procedure: Written consent obtained, discussed risks of infection, bleeding, reaction to lidocaine. Each of the above indicated areas were cleansed x 3 with betadine. 0.3 cc of lidocaine with epi injected subcutaneously into below each of the indicated lesions to achieve good anesthesia. The condyloma near the clitoral kevin and on her right labia majora were simply cut off with scissors and sent to pathology in formalin, hemostasis was achieved with silver nitrate. The sessile lesion on her left labia majora was removed by shave biopsy, and also sent to pathology in formalin, hemostasis was achieved with silver nitrate. The 2 perianal condyloma were individually tied off at the bases with 0-vicryl suture, then cut off with scissors. Silver nitrate was applied with good hemostasis. Patienttolerated the procedure well. Assessment: Recurrent vulvar and perianal condyloma. Plan: Yesenia was seen today for new patient visit. Diagnoses and associated orders for this visit: Genital warts - Surgical Pathology Other Orders - acetaminophen-codeine (TYLENOL #3) 300-30 mg per tablet; Take 1 Tab by mouth every 4 hours as needed for Pain. In office excision of 5 condylomatous lesions as above. All specimens were sent to pathology in formalin, will call patient with pathology results when they return. Tylenol 3, 1 po q 4 hours prn, # 10 with no refills given. Otherwise, tylenol, 1-2 po q 4 hours prn. Patient to follow up with her local freezer operator for care. Return for persistent or recurrent symptoms. Will arrange for follow up when I call her with her pathology results. Encouraged smoking cessation. documented in this encounter Miscellaneous Notes * Scanned Note-Null - Inside Tester, Scan - 09/19/2011 1618 EDT documented in this encounter Plan of Treatment Not on file documented as of this encounter Visit Diagnoses Diagnosis Genital warts- Primary Condyloma acuminatum documented in this encounter Care Teams Product Marketer Relationship Specialty Start Date End Date Marlene Perry MD [address] [address] PCP - General 09/17/11 08/28/17 documented as of this encounter
--- OUTSIDE RECORDS SUMMARY | 2024-07-02 18:55 | XMS_ITS | Encounter Summary ---
Author Organization [facility] Address [address] [place] [address] Care Team Providers Care [employer] Coach Name Role Phone Betsy Keys MD Primary Care Provider [phone] Reason for Visit * Reason Comments Facial Pain Returnee: pt returns back to ED c/o left sided facial pain, reports has not improved since last visit.Pt is + 18 weeks Encounter Details Date Type Department Care Team (Late st Contact Info) Description 11/10/2009 23:38 EST - 11/11/2009 1:47 EST Emergency [facility] Emergency Department - [address] [id number] Florentino Butler MD [address] [facility], [address] [place] [id number] Emergency, MD [place] Acute Pharyngitis (Primary Dx) Discharge Disposition: Home or Self [...] Sign Reading Time Taken Comments Blood Pressure 170/60 11/10/2009 2341 EST Pulse 107 11/10/2009 2341 EST Temperature 37.4 ??C (99.3 ??F) 11/10/2009 2341 EST Respiratory Rate 19 11/10/2009 2341 EST Oxygen Saturation 99% 11/10/2009 2341 EST Inhaled Oxygen Concentration - - Weight - - Height - - Body Mass Index - - documented in this encounter Discharge Instructions * Discharge Instructions* Juan Bautista MD - 11/11/2009 1:29 EST Images from the original note were not included. [facility] Patient Instructions Sore Throat in Adults: After Your Visit Your Care Instructions Infection by bacteria or a virus causes most sore throats. Cigarette smoke, dry air, air pollution,allergies, or yelling can also cause a sore throat. Sore throats can be painful and annoying. Fortunately, most sore throats go away on their own. If you have a bacterial infection, your doctor may prescribe antibiotics. Follow-up care is a suggs part of your treatment and safety. Be sure to make and go to all appointments, and call your doctor if you are having problems. It???s also a good idea to know your test results and keep a list of the medicines you take. How can you care for yourself at home? ?? If your doctor prescribed antibiotics, take them as directed. Do not stop taking them just because you feel better. You need to take the full course of antibiotics. Gargle with warm salt water once an hour to help reduce swelling and relieve discomfort. Use 1 teaspoon of salt mixed in 1 cup of warm water. Take an imhl-irh-gnoicwe pain medicine, such as acetaminophen (Tylenol), ibuprofen (Advil, Motrin),or naproxen (Aleve). Read and follow all instructions on the label. Be careful when taking lnwq-xmu-doyvevg cold or flu medicines and Tylenol at the same time. Many ofthese medicines have acetaminophen, which is Tylenol. Read the labels to make sure that you are nottaking more than the recommended dose. Too much acetaminophen (Tylenol) can be harmful. Drink plenty of fluids. Fluids may help soothe an irritated throat. Hot fluids, such as tea or soup, may help decrease throat pain. Use fjfy-vsp-eorkvww throat lozenges to soothe pain. Regular cough drops or hard candy may also help. These should not be given to young children because of the risk of choking. Do not smoke or allow others to smoke around you. If you need help quitting, talk to your doctor about stop-smoking programs and medicines. These can increase your chances of quitting for good. Use a vaporizer or humidifier to add moisture to your bedroom. Follow the directions for cleaning the machine. When should you call for help? Call your doctor now or seek immediate medical care if: ?? Your pain gets worse on one side of your throat. You have a new or higher fever. You notice changes in your voice. You have trouble opening your mouth. You have any trouble breathing. You have trouble swallowing. You have a fever with a stiff neck or a severe headache. You are sensitive to light or feel very sleepy or confused. Watch closely for changes in your health, and be sure to contact your doctor if: ?? You do not start to feel better after 2 days. Where can you learn more? Go to www.[employer].net/fahc Enter U420 in the search box to learn more about Sore Throat in Adults: After Your Visit. ?? 2005 - 2008 [employer]. Care instructions adapted under license by [facility], [facility] . This care instruction is for use with your licensed healthcare professional. If you have questions about a medical condition or this instruction, always ask your healthcare professional. [employer] disclaims any warranty or liability for your use of this information. documented in this encounter Medications at Time of Discharge Medication Sig Dispensed Refills Start Date End Date albuterol (PROVENTIL HFA, VENTOLIN HFA) 90 mcg/Actuation inhaler Inhale 2 Puffs as directed every 4 hours. amoxicillin (AMOXIL) 500 mg capsule Take 1 Cap by mouth every 12 hours for 7 days. 14 Cap 0 11/11/2009 11/18/2009 fluticasone-salmeterol (ADVAIR) 250-50 mcg/Dose diskus inhaler Inhale 1 Puff as directed every 12 hours. 04/25/2020 documented as of this encounter Ordered Prescriptions Prescription Sig Dispensed Refills Start Date End Da te amoxicillin (AMOXIL) 500 mg capsule Take 1 Cap by mouth every 12 hours for 7 days. 14 Cap 0 11/11/2009 11/18/2009 documented in this encounter Discharge Disposition Disposition Code Departure Means Destination Home or Self Fpc documented in this encounter ED Notes * Florentino Butler MD - 11/11/2009 0412 EST DOS: 11/10/2009 Chief Complaint Patient presents with ??? Facial Pain Returnee: pt returns back to ED c/o left sided facial pain, reports has not improved since last visit.Pt is + 18 weeks HPI Comments: I performed a history and exam of Yesenia Fragoso and discussed the case with the resident. I reviewed this individual's note and I concur with the documented findings and plan of care. Patient is a 29 y.o. female presenting with facial pain. Facial Pain Review of Systems Past Medical History Diagnosis Date ??? Anxiety ??? Asthma ??? Depression History reviewed. No pertinent past surgical history. No Known Allergies History Substance Use Topics ??? Tobacco Use: Yes -- 0.2 packs/day ??? Alcohol Use: No History reviewed. No pertinent family history. BP 170/60 Pulse 107 Temp(Src) 37.4 ??C (99.3 ??F) (Tympanic) Resp 19 SpO2 99% Physical Exam Nursing note and vitals reviewed. Constitutional: She is oriented. She appears well-developed and well-nourished. No distress. HENT: Head: Atraumatic. Right Ear: External ear normal. Left Ear: External ear normal. Nose: Nose normal. Dry mucous membranes Eyes: Conjunctivae and extraocular motions are normal. Pupils are equal, round, and reactive to light. Neck: Normal range of motion. Neck supple. No JVD present. No tracheal deviation present. Cardiovascular: Normal rate, regular rhythm, normal heart sounds and intact distal pulses. Pulmonary/Chest: Effort normal. No stridor. No respiratory distress. She has no wheezes. She has osmany. Abdominal: Soft. No tenderness. Musculoskeletal: She exhibits no edema. Lymphadenopathy: She has cervical adenopathy (tender swollen submandibular lymph nodes). Neurological: She is alert and oriented. She has normal reflexes. Skin: Skin is warm and dry. Psychiatric: She has a normal mood and affect. Radiology orders: None Procedures ED Course: Pt presents with sore throat and left neck pain.Has had decreased oral intake. Pt hydrated with IV normal saline. Treated with tylenol and amoxicillin. Will dc home. Discharge Prescriptions New Prescriptions AMOXICILLIN (AMOXIL) 500 MG CAPSULE Take 1 Cap by mouth every 12 hours for 7 days. MDM Number of Diagnoses and Management Options Acute Pharyngitis: new, needed workup Risk of Complications, Morbidity, and/or Mortality Presenting problems: moderate Diagnostic procedures: low Management options: moderate General comments: 4 Patient Progress Patient progress: improved Encounter Diagnoses Code Name Primary? Qualifier ??? 462 Acute Pharyngitis Yes Acute Plan: IBUPROFEN 600 MG TAB STARTER PACK PCP: BETSY KEYS MD 11/11/2009 4:12 AM documented in this encounter Miscellaneous Notes * Scanned Note-Null - Inpatient, Physician - 11/13/2009 1235 EST * ED Resident - Juan Batuista MD - 11/11/2009 0020 EST DOS: 11/10/2009 Chief Complaint Patient presents with ??? Facial Pain Returnee: pt returns back to ED c/o left sided facial pain, reports has not improved since last visit.Pt is + 18 weeks HPI Comments: Pt is 18 weeks . She came to the Ed approx 1 week ago for a sore throat, and was diagnosed with a viral pharyngitis and dced to home. Unfortunately, since then her sore throat has become worse, the left side of her throat feeling swollen and her left jaw tender to touch. Patient is a 29 y.o. female presenting with facial pain. The history is provided by the patient. 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 Facial Pain The current episode started more than 1 week ago. The onset was gradual. The problem occurs continuously. The problem has been gradually worsening. The problem is severe. The symptoms are relieved byacetaminophen. The symptoms are worsened by eating and drinking. Associated symptoms include fever (did not take, subjective), nausea, vomiting, sore throat, swollen glands, cough and URI. Pertinent negatives include no orthopnea, no decreased vision, no double vision, no eye itching, no photophobia, no abdominal pain, no constipation, no diarrhea, no congestion, no ear discharge, no ear pain, noheadaches, no hearing loss, no mouth sores, no rhinorrhea, no stridor, no muscle aches, no neck pain, no neck stiffness, no wheezing, no rash, no eye discharge, no eye pain and no eye redness. Review of Systems Constitutional: Positive for fever (did not take, subjective) and chills. HENT: Positive for sore throat and postnasal drip. Negative for hearing loss, ear pain, congestion,rhinorrhea, sneezing, drooling, mouth sores, neck pain, dental problem, sinus pressure and ear discharge. Eyes: Negative for double vision, photophobia, pain, discharge, redness and itching. Respiratory: Positive for cough. Negative for wheezing and stridor. Cardiovascular: Negative for orthopnea. Gastrointestinal: Positive for nausea and vomiting. Negative for abdominal pain, diarrhea and constipation. Genitourinary: Negative. Musculoskeletal: Negative. Skin: Negative for rash. Neurological: Positive for light-headedness. Negative for dizziness, tremors, seizures, syncope, facial asymmetry, speech difficulty, weakness, numbness and headaches. Hematological: Negative. Psychiatric/Behavioral: Negative. Past Medical History Diagnosis Date ??? Anxiety ??? Asthma ??? Depression No past surgical history on file. No Known Allergies History Substance Use Topics ??? Tobacco Use: Yes -- 0.2 packs/day ??? Alcohol Use: No No family history on file. BP 170/60 Pulse 107 Temp(Src) 37.4 ??C (99.3 ??F) (Tympanic) Resp 19 SpO2 99% Physical Exam Constitutional: She appears well-developed and well-nourished. She appears not diaphoretic. She appears distressed. HENT: Head: Normocephalic and atraumatic. No trismus in the jaw. Mouth/Throat: Uvula is midline and oropharynx is clear and moist. Mucous membranes are dry. She does not have dentures. No oral lesions. Normal dentition. No dental abscesses, uvula swelling, lacerations or dental caries. Slightly enlarged submandibular lymph node on the left. No palpable mass, fluctuance, crepitus, erythema, or irritation. Tender along the left mandible. Skin: She is not diaphoretic. Radiology orders: None Procedures ED Course: Pt given tylenol, amoxacillin, and fluids. DCed to home, will follow up with PCP as needed. Discharge Prescriptions New Prescriptions AMOXICILLIN (AMOXIL) 500 MG CAPSULE Take 1 Cap by mouth every 12 hours for 7 days. MDM Number of Diagnoses and Management Options Encounter Diagnoses Code Name Primary? Qualifier ??? 462 Acute Pharyngitis Yes Acute Plan: IBUPROFEN 600 MG TAB STARTER PACK PCP: BETSY KEYS MD 11/11/2009 3:53 AM documented in this encounter Plan of Treatment Not on file documented as of this encounter Visit Diagnoses Diagnosis Acute pharyngitis- Primary documented in this encounter Administered Medications Inactive Administered Medications - up to 3 most recent administrations Medication Order MAR Action Action Date Dose Rate Site acetaminophen (TYLENOL) solution 650 mg 650 mg, oral, NOW X1, 1 dose, On Sat11/11/09 at 0100, STAT Given 11/11/2009 0:53 EST 650 mg amoxicillin (AMOXIL) suspension 500 mg 500 mg, oral, EVERY 8 HOURS (3 times per day), First dose on Sat11/11/09 at 0100, Until Discontinued, STAT Given 11/11/2009 1:00 EST 500 mg sodium chloride 0.9 % 1,000 mL BOLUS 1,000 mL, intravenous, Once (Without Time Specified), 1 dose, Starting on Sat11/11/09 at 0045, Until Sat11/11/09 at 0053, STAT Given 11/11/2009 0:53 EST 1,000 mL documented in this encounter Active and Recently Administered Medications Times are shown in EST. Scheduled Medication Order 11/09/2009 11/10/2009 11/11/2009 acetaminophen (TYLENOL) solution 650 mg (COMPLETED) 650 mg, oral, NOW X1, 1 dose, On Sat11/11/09 at 0100, STAT 0053 (Given - Provid er: Sonya Lal RN) amoxicillin (AMOXIL) suspension 500 mg (CANCELED) 500 mg, oral, EVERY 8 HOURS (3 times per day), First dose on Sat11/11/09 at 0100, Until Discontinued, STAT 0100 (Given - Provid er: Kaden Kelly) sodium chloride 0.9 % 1,000 mL BOLUS (COMPLETED) 1,000 mL, intravenous, Once (Without Time Specified), 1 dose, Starting on Sat11/11/09 at 0045, Until Sat11/11/09 at 0053, STAT 0053 (Given - Provid er: Sonya Lal RN) documented in this encounter Orders Medications Ordered That Sheng ht Not Have Been Administered Count Last Ordered Date First Ordered Date acetaminophen (TYLENOL) tablet 650 mg 1 amoxicillin (AMOXIL) capsule 500 mg 1 11/11 Amoxicillin 250 mg Cap STARTER PACK 1 11/11 Ibuprofen 600 mg Tab Starter Pack 1 009 Ibuprofen 600 mg Tab STARTER PACK 1 009 documented in this encounter 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
--- OUTSIDE RECORDS SUMMARY | 2024-07-02 18:55 | XMS_ITS | Encounter Summary ---
Author Organization [facility] Address [address] [place] [address] Care Team Providers Care Pediatric Social Worker Name Role Phone Betsy Keys MD Primary Care Provider [phone] Reason for Visit * Reason Comments Emesis During Pt reports throw ing up since 6am. Migraine Pt reports frontal h /a since 1am. Encounter Details Date Type Department Care Team (Late st Contact Info) Description 08/08/2009 12:27 EDT - 08/08/2009 15:57 EDT Emergency [facility] Emergency Department - [address] [address] Flakito Salgado, PA-C [address] [place] [address], [address] [place] [id number] Emergency, MD Madina Hyperemesis Gravidarum Discharge Disposition: Home or Self Care Social History Tobacco Use Types Packs/Day Years Used Date Smoking Tobacco: Every Day Alcohol Use Standard Drinks/Week Comments No 0 (1 standard drink = 0.6 oz pur e alcohol) Sex and Gender Information Value Date Recorded Sex Assigned at Female 05/03/2022 19:33 EDT Gender Identity Female 05/02/2020 15:51 EDT Sexual Orientation Straight 05/03/2022 19 :33 EDT documented as of this encounter Last Filed Vital Signs Vital Sign Reading Time Taken Comments Blood Pressure 122/64 08/08/2009 1557 EDT Pulse 88 08/08/2009 1557 EDT Temperature 36.7 ??C (98.1 ??F) 08/08/2009 1240 EDT Respiratory Rate 16 08/08/2009 1557 EDT Oxygen Saturation 99% 08/08/2009 1557 EDT Inhaled Oxygen Concentration - - Weight - - Height - - Body Mass Index - - documented in this encounter Discharge Instructions * Discharge Instructions* Flakito Salgado Jr., PA - 08/08/2009 15:43 EDT Images from the original note were not included. [facility] Patient Instructions Extreme Nausea and Vomiting in : After Your Visit Your Care Instructions Nausea and vomiting (often called morning sickness) are common in . They are caused by hormones and happen most often in the first 3 months. Some women get very sick and are not able to keep down food and fluids. This extreme morning sickness is called hyperemesis gravidarum. It can lead to a dangerous loss of fluids in the body. It also can keep you from gaining weight and getting proper nutrition during your . Your body fluids are put back in balance with water and minerals called electrolytes. Medicine may help if you have severe nausea and vomiting. Follow-up care is a suggs part of your treatment and safety. Be sure to make and go to all appointments, and call your doctor if you are having problems. It???s also a good idea to know your test results and keep a list of the medicines you take. How can you care for yourself at home? ?? Take your medicines exactly as prescribed. Call your doctor if you think you are having a problem with your medicine. Drink plenty of fluids to prevent dehydration. Choose water and other caffeine- free clear liquids until you feel better. Try sipping on sports drinks that have salt and sugar in them. Eat a small snack, such as crackers, before you get out of bed. Wait a few minutes, then get out ofbed slowly. Keep food in your stomach, but not too much at once. An empty stomach can make nausea worse. Eat several small meals every day instead of three large meals. Eat more protein and less fat. Get plenty of vitamin B6 by eating whole grains, nuts, seeds, and legumes. You can take vitamin B6 tablets if your doctor says it is okay. Try to avoid smells and foods that make you feel sick to your stomach. Get lots of rest. You may want to try acupressure bands. They put pressure on an acupressure point in the wrist. Somewomen feel better using the bands. Anthony may also help you feel better. You can use it in tea, take it as a pill, or use a anthony syrup that you can buy at a health food store. When should you call for help? Call 911 anytime you think you may need emergency care. For example, call if: ?? You pass out (lose consciousness). Call your doctor now or seek immediate medical care if: ?? You vomit more than 3 times in a day, especially if you also have a fever or pain. You are too sick to your stomach to drink any fluids. You have signs of needing more fluids. You have sunken eyes and a dry mouth, and you pass only a little dark urine. Your morning sickness gets worse or does not get better with home care. You are not able to keep down your medicine. Watch closely for changes in your health, and be sure to contact your doctor if you have any problems. Where can you learn more? Go to www.[employer].net/fahc Enter D699 in the search box to learn more about Extreme Nausea and Vomiting in : After Your Visit. ?? 2005 - 2008 [employer]. Care instructions adapted under license by [facility], [facility] . This care instruction is for use with your licensed healthcare professional. If you have questions about a medical condition or this instruction, always ask your healthcare professional. [employer] disclaims any warranty or liability for your use of this information. documented in this encounter Medications at Time of Discharge Medication Sig Dispensed Refills Start Date End Date albuterol (PROVENTIL HFA, VENTOLIN HFA) 90 mcg/Actuation inhaler Inhale 2 Puffs as directed every 4 hours. fluticasone-salmeterol (ADVAIR) 250-50 mcg/Dose diskus inhaler Inhale 1 Puff as directed every 12 hours. 04/25/2020 ondansetron (ZOFRAN) 4 mg tablet Take 1 Tab by mouth every 8 hours as needed for Nausea. 15 0 08/08/2009 10/27/2009 documented as of this encounter Ordered Prescriptions Prescription Sig Dispensed Refills Start Date End Da te ondansetron (ZOFRAN) 4 mg tablet Take 1 Tab by mouth every 8 hours as needed for Nausea. 15 0 08/08/2009 10/27/2009 documented in this encounter Discharge Disposition Disposition Code Departure Means Destination Home or Self Care Car Home documented in this encounter ED Notes * Mary Ann Gil RN - 08/08/2009 1534 EDT I want to go home now. I'm better and no headache. * Mary Ann Gil RN - 08/08/2009 1456 EDT Pt continues with headache and nausea. 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 ED PA aware. * Flakito Salgado Jr., PA - 08/08/2009 1320 EDT DOS: 08/08/2009 Chief Complaint Patient presents with ??? Emesis During Pt reports throwing up since 6am. ??? Migraine Pt reports frontal h/a since 1am. Patient is a 28 y.o. female presenting with emesis and migraine. The history is provided by the patient. Episode Onset: about 0430 this am, pt is , unknown dates, vomiting and diarrhea since this am, Primary symptoms include no contractions , no vaginal bleeding and no abdominal pain. Associatedsymptoms include no pelvic pain, no vaginal discharge, cramping Migraine This is a recurrent problem. The problem occurs every few minutes. The problem has not changed since onset. The headache is associated with bright light and activity. The pain is located in the parietal region. The pain quality is described as throbbing. Associated symptoms include malaise/fatigue,nausea and vomiting. Pertinent negatives include no fever, no chest pressure, no orthopnea, no palpitations, no syncope and no shortness of breath. She has tried nothing for the symptoms. Review of Systems Constitutional: Positive for malaise/fatigue. Negative for fever. Respiratory: Negative for shortness of breath. Cardiovascular: Negative for palpitations, orthopnea and syncope. Gastrointestinal: Positive for nausea and vomiting. Negative for abdominal pain. Genitourinary: Positive for frequency. Negative for dysuria, hematuria, flank pain, vaginal bleeding and vaginal pain. Neurological: Positive for headaches. Negative for dizziness, tremors, seizures, syncope, speech difficulty, weakness, light-headedness and numbness. Past Medical History Diagnosis Date ??? Anxiety ??? Asthma ??? Depression No past surgical history on file. No Known Allergies History Substance Use Topics ??? Tobacco Use: Yes ??? Alcohol Use: No No family history on file. BP 106/60 Pulse 89 Temp(Src) 36.7 ??C (98.1 ??F) (Tympanic) Resp 16 SpO2 98% LMP 06/26/2009 Physical Exam Nursing note and vitals reviewed. Constitutional: She appears well-developed and well-nourished. HENT: Head: Normocephalic and atraumatic. Right Ear: External ear normal. Left Ear: External ear normal. Nose: Nose normal. Eyes: Pupils are equal, round, and reactive to light. Right eye exhibits no discharge. Left eye exhibits no discharge. Neck: Normal range of motion. Neck supple. No tracheal deviation present. Cardiovascular: Normal rate, regular rhythm and normal heart sounds. Pulmonary/Chest: Breath sounds normal. No respiratory distress. Abdominal: Soft. She exhibits no distension. No tenderness. She has no rebound and no guarding. Musculoskeletal: Normal range of motion. Neurological: She is alert. She has normal strength. No sensory deficit. Skin: No rash noted. Psychiatric: She has a normal mood and affect. Radiology orders: None Procedures Consult orders: None ED Course: Pt feeling better after meds, requesting to go home MDM No diagnosis found. PCP: BETSY KEYS MD 08/08/2009 1:20 PM ED Attending Available for Supervision: Moises Metz * Wiley Coppola RN - 08/08/2009 1238 EDT Pt reports being , does not know how many weeks, has an ultrasound scheduled for Aug 16. Pt eating chips in triage. documented in this encounter Miscellaneous Notes * Scanned Note-Null - Inpatient, Physician - 08/10/2009 0900 EDT documented in this encounter Plan of Treatment Pending Results Name Type Priority Associated Diagnoses Date /Time POCT URINE DIPSTICK Point of Care Testing STAT 08/08/2009 14:35 EDT POCT URINE TEST Point of Care Testing STAT 08/08/2009 14:38 EDT documented as of this encounter Procedures Procedure Name Priority Date/Time Associated Diagnosis Comments HOLD GREEN TOP Routine 08/08/2009 14:21 EDT HOLD BLUE TOP Routine 08/08/2009 14:21 EDT COMPLETE BLOOD COUNT AND DIFFERENTIAL STAT 08/08/2009 14:21 EDT BUN STAT 08/08/2009 14:21 EDT CREATININE STAT 08/08/2009 14:21 EDT ELECTROLYTES STAT 08/08/2009 14:21 EDT documented in this encounter Results * HOLD GREEN TOP (08/08/2009 14:21 EDT) Hold Green Top Hold for further testing. Specimen will be held for 5 days. [facility] 08/08/2009 14:2 1 EDT 08/08/2009 14:30 EDT Flakito Salgado PA-C LAB INFO SERVICE AND SUPPORT & PHONE RESULT [facility] [address] [place] [address] * HOLD BLUE TOP (08/08/2009 14:21 EDT) Hold Blue Top Sample for coagulation will be discarded after 4 hours [facility] 08/08/2009 14:2 1 EDT 08/08/2009 14:30 EDT Flakito Salgado PA-C LAB INFO SERVICE AND SUPPORT & PHONE RESULT Performing Organization Address City/State/[facility] Co de Phone Number [facility] [address] [place] [address] * (ABNORMAL) HEMAGRAM AND DIFFERENTIAL (08/08/2009 14:21 EDT) WBC 12.21 4.0 - 12.4 K/cmm [facility] RBC 4.33 3.86 - 5.04 M/cmm [facility] Hemoglobin 13.2 11.6 - 15.2 gm/dl [facility] HCT 38.4 34.9 - 44.4 % [facility] MCV 89 81 - 98 fl [facility] MCH 30.4 26.7 - 33.3 pg [facility] MCHC 34.4 32.1 - 35.9 gm/dl [facility] PLT 256 141 - 320 K/cmm [facility] RDW-CV 13.3 11.7 - 14.6 % [facility] Neutrophils 74.4 45.5 - 79.7 % [facility] Lymphocytes 21.7 15.0 - 46.8 % [facility] Monocytes 1.8 1.8 - 12.0 % [facility] Eosinophils 2.1 0.6 - 6.9 % [facility] Basophils 0.0(L) 0.2 - 1.4 % [facility] ABS Neutrophils 9.08(H) 2.20 - 8.85 K/cmm [facility] ABS Lymphs 2.65 1.09 - 3.30 K/cmm [facility] ABS Monocytes 0.22 0.1 - 0.8 K/cmm [facility] ABS Eosinophils 0.25 0.03 - 0.61 K/cmm [facility] ABS Basophils 0.00(L) 0.01 - 0.11 K/cmm [facility] Type of Diff: Automated [facility] Blood specimen (specimen) 08/08/2009 14:21 EDT 08/08/2009 14:30 EDT Flakito Salgado PA-C PACKAGES & DNA PROBE ORDERABLES Performing Organization Address City/[facility] Co de Phone Number [facility] [address] [place] [address] * (ABNORMAL) CREATININE (08/08/2009 14:21 EDT) Creatinine 0.60(L) 0.7 - 1.5 mg/dl [facility] GFR, Calculated >60 ml/min/1.7 3m2 [facility] Blood specimen (specimen) 08/08/2009 14:21 EDT 08/08/2009 14:30 EDT Flakito Salgado PA-C CHEMISTRY & BLOOD GA S ORDERABLES Performing Organization Address [facility] Co de Phone Number [facility] [address] [place] [address] * (ABNORMAL) BUN (08/08/2009 14:21 EDT) BUN 7(L) 10 - 26 mg/dl [facility] Blood specimen (specimen) 08/08/2009 14:21 EDT 08/08/2009 14:30 EDT Flakito Salgado PA-C CHEMISTRY & BLOOD GA S ORDERABLES Performing Organization Address [facility] de Phone Number [facility] [address] [place] [address] * ELECTROLYTES (08/08/2009 14:21 EDT) Sodium 139 136 - 145 mEq/L [facility] Potassium 4.0 3.5 - 5.0 mEq/L [facility] Chloride 103 96 - 110 mEq/L [facility] CO2 30 24 - 32 mEq/L [facility] Blood specimen (specimen) 08/08/2009 14:21 EDT 08/08/2009 14:30 EDT Flakito Salgado PA-C CHEMISTRY & BLOOD GA S ORDERABLES Performing Organization Address [facility] Co de Phone Number [facility] [address] [place] [address] documented in this encounter Visit Diagnoses Diagnosis Hyperemesis gravidarum Mild hyperemesis gravidarum, unspecified as to episode of care documented in this encounter Administered Medications Inactive Administered Medications - up to 3 most recent administrations Medication Order MAR Action Action Date Dose Rate Site acetaminophen (TYLENOL) tablet 650 mg 650 mg, oral, NOW X1, 1 dose, On Sat08/08/09 at 1515, STAT Given 08/08/2009 15:15 EDT 650 mg metoCLOPramide (REGLAN) injection 10 mg 10 mg, intravenous, Once (Without Time Specified), 1 dose, Starting on Sat08/08/09 at 1319, Until Sat08/08/09 at 1415, STAT Given 08/08/2009 14:15 EDT 10 mg sodium chloride 0.9 % 1,000 mL BOLUS 1,000 mL, intravenous, Once (Without Time Specified), 1 dose, Starting on Sat08/08/09 at 1345, Until Sat08/08/09 at 1415, STAT Given 08/08/2009 14:15 EDT 1,000 mL documented in this encounter Active and Recently Administered Medications Times are shown in EDT. Scheduled Medication Order 08/06/2009 08/07/2009 08/08/2009 acetaminophen (TYLENOL) tablet 650 mg (COMPLETED) 650 mg, oral, NOW X1, 1 dose, On Sat08/08/09 at 1515, STAT 1515 (Given - Provid er: Dylon Kaba) metoCLOPramide (REGLAN) injection 10 mg (COMPLETED) 10 mg, intravenous, Once (Without Time Specified), 1 dose, Starting on Sat08/08/09 at 1319, Until Sat08/08/09 at 1415, STAT 1415 (Given - Provid er: Mary Ann Gil RN) sodium chloride 0.9 % 1,000 mL BOLUS (COMPLETED) 1,000 mL, intravenous, Once (Without Time Specified), 1 dose, Starting on Sat08/08/09 at 1345, Until Sat08/08/09 at 1415, STAT 1415 (Given - Provid er: Mary Ann Gil RN) documented in this encounter Care Teams Pediatric Social Worker Relationship Specialty Start Date End Date Betsy Keys MD [address] [place] [phone] PCP - General 08/08/09 12/29/09 documented as of this encounter
--- OUTSIDE RECORDS SUMMARY | 2024-07-02 18:55 | XMS_ITS | Encounter Summary ---
Author Organization [facility] Address [address] [place] [address] Care Team Providers Care Slotter Operator Helper Name Role Phone Betsy Perez MD Primary Care Provider [phone] Encounter Details Date Type Department Care Team (Late st Contact Info) Description 10/04/2009 16:44 EST - 10/04/2009 16:45 [facility] Hospital Encounter [facility] - Other [address] [place] [address] James Barrett MD [address] [facility], [address] [place] [address] Discharge Disposition: Home or Self [...] :33 EDT documented as of this encounter Medications at Time of Discharge Medication Sig Dispensed Refills Start Date End Date albuterol (PROVENTIL HFA, VENTOLIN HFA) 90 mcg/Actuation inhaler Inhale 2 Puffs as directed every 4 hours. amoxicillin (AMOXIL) 500 mg capsule Take 2 Caps by mouth every 12 hours. 18 Cap 0 10/03/2009 10/27/2009 fluticasone-salmeterol (ADVAIR) 250-50 mcg/Dose diskus inhaler Inhale 1 Puff as directed every 12 hours. 04/25/2020 ondansetron (ZOFRAN) 4 mg tablet Take 1 Tab by mouth every 8 hours as needed for Nausea. 15 0 08/08/2009 10/27/2009 oseltamivir (TAMIFLU) 75 mg capsule Take 1 Cap by mouth 2 times daily. 8 Cap 0 10/03/2009 10/27/2009 documented as of this encounter Discharge Disposition Disposition Code Departure Means Destination Home or Self Care documented in this encounter Plan of Treatment Not on file documented as of this encounter Procedures Procedure Name Priority Date/Time Associated Diagnosis Comments URINE MICROSCOPIC Routine 11/01/2009 13: 30 EST URINALYSIS WITH MICROSCOPIC IF POSITIVE Routine 11/01/2009 13:30 EST CHLAMYDIA/N. GONORRHOEAE AMPLIFIED NUCLEIC ACID Routine 11/01/2009 13:30 EST BACTERIAL CULTURE, URINE Routine 11/01/2009 13:30 EST documented in this encounter Results * (ABNORMAL) URINE MICROSCOPIC (11/01/2009 13:30 EST) WBC, UA 5 to 10 0 - 5 /HPF [facility] RBC, UA less than 1 0 - 5 /HPF [facility] Squam Epithel, UA Innum(A) NS /HPF [facility] Renal Epithel, UA None seen NS /HPF [facility] Bacteria, UA None seen NS /HPF [facility] Crystals, UA None seen /HPF [facility] Hyaline Casts, UA None seen /LPF [facility] Comment Microscopic results are unreliable on urines unrefrig >2hrs or refrig >8hrs. [facility] Mucus, UA Present [facility] Comment Amorphous material present Amorphous urates [facility] 11/01/2009 13:3 0 EST 11/01/2009 19:54 EST Benjamin Payne MD URINALYSIS ORDERA BLES [facility] [address] [place] [address] * CHLAMYDIA/GC AMPLIFIED (11/01/2009 13:30 EST) Specimen Description Cervix [facility] Result No Chlamydia trachomatis DNA detected by vibration analyst mediated amplification. [facility] Result No Neisseria gonorrhoeae DNA detected by vibration analyst mediated amplification. [facility] 11/01/2009 13:3 0 EST 11/01/2009 21:27 EST Benjamin Payne MD MICROBIOLOGY - GE NERAL ORDERABLES Performing Organization Address [facility] Co de Phone Number [facility] [address] [place] [address] * BACTERIAL CULTURE, URINE (11/01/2009 13:30 EST) Specimen Description Urine [facility] Result 10,000 to 100,000 CFU/ml Mixed gram positive growth [facility] Report Status Final 11/03/2009 [facility] 11/01/2009 13:3 0 EST 11/01/2009 19:54 EST Benjamin Payne MD MICROBIOLOGY - GE NERAL ORDERABLES Performing Organization Address [facility] Co de Phone Number [facility] [address] [place] [address] * (ABNORMAL) URINALYSIS WITH REFLEX MICROSCOPIC (11/01/2009 13:30 EST) Color, UA Yellow [facility] Clarity, UA Cloudy [facility] Glucose, UA Neg NEG [facility] Bilirubin, UA 1+(A) NEG [facility] Ketones, UA Trace(A) NEG [facility] Specific [place], Urine 1.025 1.001 - 1.03 [facility] Blood, UA Neg NEG [facility] pH, UA 6.0 4.6 - 8.0 [facility] Protein, UA 1+(A) NEG [facility] Urobilinogen, UA 1.0 0.2 - 1.0 E.U./dl [facility] Nitrite, UA Neg NEG [facility] Leuk Esterase Trace(A) NEG [facility] 11/01/2009 13:3 0 EST 11/01/2009 19:54 EST Benjamin Payne MD URINALYSIS ORDERA BLES Performing Organization Address City/State/[facility] Co de Phone Number [facility] [address] [place] [address] documented in this encounter Visit Diagnoses Not on filedocumented in this encounter Care Teams Slotter Operator Helper Relationship Specialty Start Date End Date Betsy Perez MD [address] [place] [phone] PCP - General 08/08/09 12/29/09 documented as of this encounter
--- OUTSIDE RECORDS SUMMARY | 2024-07-02 18:55 | XMS_ITS | Encounter Summary ---
Author Organization [facility] Address [address] [place] [address] Care Team Providers Care Hand Roller Name Role Phone Betsy Perez MD Primary Care Provider [phone] Encounter Details Date Type Department Care Team (Late st Contact Info) Description 05/22/2010 Results Only [facility] Laboratory Services - [facility] ([facility]) [address] [place], [place] [id number] Mercedes Bennett, [place] [address] [facility],[address] [place] [phone] Social History Tobacco Use Types Packs/Day Years [...] Procedure Name Priority Date/Time Associated Diagnosis Comments CYTOPATHOLOGY Routine 05/22/2010 0:00 EDT documented in this encounter Results * CYTOPATHOLOGY (05/22/2010 0:00 EDT) Pathology Report: CYTOPATHOLOGY REPORT ? Reports generated via electronic interface contain original data; ? however they are lacking the format of the original report. ? Caution should be taken when reading/interpreti ng unformatted reports. ? Name: ? YESENIA LAGOS ? Accession #: ? [id number] ? : ? 1980 (Age: 29) ??F ?Collect Date: ? 05/22/2010 ? Location: ? [facility] ? Receive Date: ? 05/24/2010 ? Provider: ?MERCEDES ABDI CNM ? Copy to: ? Specimen/Source: ?Pap Test, Cervix/Endocervix, ThinPrep Imaging System ? with manual evaluation ? Last Menstrual Period: ? 06/18/10 ? Menstrual/Pregnanc y Status: ? Post ? Other: ? HPVA - HPV testing requested if ASC-US on the current ThinPrep Pap test. ? SPECIMEN ADEQUACY ? Satisfactory for Evaluation ? - transformation zone component present ? GENERAL CATEGORIZATION ? Negative for Intraepithelial Lesion or Malignancy ? INTERPRETATION ? Trichomonas vaginalis present. ? Document reviewed and electronically signed by: ? Dilma Kimball, [place](ASCP) ? Report Date: ??05/30/2010 11:29 ? End of Report ? [facility] 05/22/2010 05/24/2010 Mercedes Bennett CNM PATHOLOGY ORDERABLES [facility] [address] [place] [address] documented in this encounter Visit Diagnoses Not on filedocumented in this encounter Care Teams Hand Roller Relationship Specialty Start Date End Date Betsy Perez MD [address] [place] [phone] PCP - General 01/09/10 09/16/11 documented as of this encounter
--- OUTSIDE RECORDS SUMMARY | 2024-07-02 18:55 | XMS_ITS | Encounter Summary ---
Author Organization [facility] Address [address] [place] [address] Care Team Providers Care Press Maintainer Name Role Phone Betsy Perez MD Primary Care Provider [phone] Encounter Details Date Type Department Care Team (Late st Contact Info) Description 08/24/2009 16:31 EDT - 08/24/2009 16:32 EDT Hospital Encounter [facility] - Other [address] [place] [address] Beba Pinzon MD [address] [place] [address] Discharge Disposition: Home or Self Care Social [...] 08/08/2009 10/27/2009 documented as of this encounter Discharge Disposition Disposition Code Departure Means Destination Home or Self Care documented in this encounter Plan of Treatment Not on file documented as of this encounter Procedures Procedure Name Priority Date/Time Associated Diagnosis Comments HEPATITIS C AB W REFLEX TO HCV RNA BY PCR Routine 09/13/2009 11:00 EDT BACTERIAL CULTURE, URINE Routine 09/13/2009 11:00 EDT HEMOGLOBIN A1C Routine 09/13/2009 11:00 EDT documented in this encounter Results * HEPATITIS C ANTIBODY (09/13/2009 11:00 EDT) Hepatitis C Ab Negative Reference Range: ??Negative ED[facility] FU [facility] 09/13/2009 11:0 0 EDT 09/13/2009 20:13 EDT Mckayla Hodgson RIDING DOUBLE CHEMISTRY & BLOOD GA S ORDERABLES Performing Organization Address [facility] Co de Phone Number ED[facility]U [facility] [address] [place] [address] * HEMOGLOBIN A1C (09/13/2009 11:00 EDT) Hemoglobin A1C Cancelled by Physician/Clarice puckett Unit % EDD FU LAB Comment:PER AUGUSTA. 09/13/2009 11:0 0 EDT 09/13/2009 20:13 EDT Mckayla Hodgson RIDING DOUBLE CHEMISTRY & BLOOD GA S ORDERABLES Performing Organization Address [facility] Co de Phone Number [facility] T[facility] [address] [place] [address] * BACTERIAL CULTURE, URINE (09/13/2009 11:00 EDT) Specimen Description Urine EDD [facility]U [facility] Result 10,000 to 100,000 CFU/ml Mixed gram positive growth EDD [facility]U [facility] Report Status Final 09/15/2009 EDD FU LAB 09/13/2009 11:0 0 EDT 09/13/2009 18:40 EDT Mckayla Hodgson RIDING DOUBLE MICROBIOLOGY - GENER AL ORDERABLES Performing Organization Address City/State/[facility] Co de Phone Number [facility] [address] [place] [address] documented in this encounter Visit Diagnoses Not on filedocumented in this encounter Care Teams Press Maintainer Relationship Specialty Start Date End Date Betsy Perez MD [address] [place] [address] PCP - General 08/08/09 12/29/09 documented as of this encounter
--- OUTSIDE RECORDS SUMMARY | 2024-07-02 18:55 | XMS_ITS | Encounter Summary ---
Author Organization [facility] Address [address] [place] [address] Care Team Providers Care Fire Prevention Bureau Captain Name Role Phone Betsy Perez MD Primary Care Provider [phone] Encounter Details Date Type Department Care Team (Late st Contact Info) Description 08/14/2011 Results Only [facility] Laboratory Services - [facility] [address] [place], [place] [id number] Mercedes Bennett, [place] [address] [facility],[address] [place] [phone] Social History Tobacco Use Types Packs/Day Years [...] Diagnosis Comments PAP TEST- RESULT ONLY Routine 08/14/2011 0:00 EDT documented in this encounter Results * PAP TEST- RESULT ONLY (08/14/2011 0:00 EDT) Pathology Report: CYTOPATHOLOGY REPORT ? Reports generated via electronic interface contain original data; ? however they are lacking the format of the original report. ? Caution should be taken when reading/interpreti ng unformatted reports. ? Name: ? YESENIA LAGOS ? Accession #: ? [id number] ? : ? 1980 (Age: 30) ??F ?Collect Date: ? 08/14/2011 ? Location: ? [facility] ? Receive Date: ? 08/16/2011 ? Provider: ?MERCEDES ABDI CNM ? Copy to: ? Specimen/Source: ?Pap Test, Cervix/Endocervix, ThinPrep Imaging System ? with manual evaluation ? Last Menstrual Period: ? Previous Gynecologic Pathology: ? Yes: Hx of abnormal paps ? Other: ? Additional clinical information: Last pap smear date 06/10 wnl ? SPECIMEN ADEQUACY ? Satisfactory for Evaluation ? - transformation zone component present ? GENERAL CATEGORIZATION ? Negative for Intraepithelial Lesion or Malignancy ? INTERPRETATION ? Reactive cellular changes associated with inflammation present (includes ?? repair). ? Document reviewed and electronically signed by: ? VEE TY MD ? Report Date: ??08/23/2011 12:23 ? End of Report ? [facility] 08/14/2011 08/16/2011 Mercedes Abdi CNM PATHOLOGY ORDERABLES [facility] [address] [place] [address] documented in this encounter Visit Diagnoses Not on filedocumented in this encounter Care Teams Fire Prevention Bureau Captain Relationship Specialty Start Date End Date Betsy Perez MD [address] [place] [phone] PCP - General 01/09/10 09/16/11 documented as of this encounter
--- OUTSIDE RECORDS SUMMARY | 2024-07-02 18:55 | XMS_ITS | Encounter Summary ---
Author Organization [facility] Address [address] [place] [address] Care Team Providers Care Hydrometeorological Technician Name Role Phone Betsy Perez MD Primary Care Provider [phone] Marlene Perry MD Primary Care Provider + [phone] None, Provider Primary Care Provider Emily Bowen APRN Primary Care Provider + [phone] Encounter Details Date Type Department Care Team (Late st Contact Info) Description 11/01/2010 Historical Results Only [facility] [place] [address] [place] [address] [place] [address] Gary Mccarty MD [address] [place] [address] [address] [place] [address] Social History Tobacco Use Types Packs/Day Years [...] Date/Time Associated Diagnosis Comments SURGICAL PATHOLOGY Routine 11/01/2010 documented in this encounter Results * SURGICAL PATHOLOGY (11/01/2010) 11/01/2010 11/01/2010 16: 04 EST Narrative [facility] - 11/03/2010 8:23 EST ----- ------- Name: YESENIA LAGOS ? : [birth year] ?Age/Sex: 39/F ?Unit#: [id number] ? Loc: END ? Status: DEP CLI ?? Reg Date: 11/01/10 ? Pt.Phone Number: ? ----- ------- Specimen: [id number] ? STATUS: SOUT ?Spec Date:11/01/10 ? Physician Copies: ?Gary Mccarty MD ? Tissues: A ?? Gastrointestinal Tract (RANDOM COLON) ?Amara Lieberman CPT: 69276 ?? Units: ??1 ?FINAL DIAGNOSIS ? Colon, random biopsy; ? - No pathologic features. ? - No histologic evidence of microscopic colitis. ? GROSS DESCRIPTION ? Received in [facility]'s labeled with the patient's name and random colon bx are ? seven strips of mucosa ranging in length from 0.3 to 0.6 cm, e.s. 1. ??CP ?? PREOP DX/CLINICAL HISTORY ?ABD PAIN, NAUSEA, DIARRHEA Signed ____(signature on file)____ Marifer Ortega M.D. 11/03/10 By the signature above, the attending physician certifies that he/she has personally conducted a gross and/or microscopic examination of the described specimens and rendered or confirmed the above diagnosis. Test Performed by [facility], [address] [place] [address] Needle Molder: Marifer Ortega MD PHD ----- ------- Gary Mccarty MD PATHOLOGY ORDERABLES [facility] documented in this encounter Visit Diagnoses Not on filedocumented in this encounter Care Teams Hydrometeorological Technician Relationship Specialty Start Date End Date Betsy Perez MD [address] [place] [phone] PCP - General 01/09/10 09/16/11 Marlene Perry MD [address] [address] PCP - General 09/17/11 08/28/17 None, Provider PCP - General 08/29/17 04/29/18 Emily Bejarano APRN [address] [place] [phone] PCP - General 04/30/18 04/25/22 documented as of this encounter
--- OUTSIDE RECORDS SUMMARY | 2024-07-02 18:55 | XMS_ITS | Encounter Summary ---
Author Organization [facility] Address [address] [place] [address] Care Team Providers Care Staffing Rn Name Role Phone Betsy Keys MD Primary Care Provider [phone] Reason for Visit * Reason Comments Migraine Pt c/o migraine for 2 days. Pt states photosensitivity. Pt states n/v and hot flashes. Pt is 7 months . Took tylenol with no relief. Encounter Details Date Type Department Care Team (Late st Contact Info) Description 02/10/2010 0:19 EDT - 02/10/2010 2:52 EDT Emergency [facility] Emergency Department - [address] [address] [place], [place] [address] [place] [phone] Emergency, MD Madina Migraine Discharge Disposition: Home or Self Care Social [...] Sign Reading Time Taken Comments Blood Pressure 125/60 02/10/2010 0247 EDT Pulse 81 02/10/2010 0247 EDT Temperature 36 ??C (96.8 ??F) 02/10/2010 0023 EDT Respiratory Rate 16 02/10/2010 024 EDT Oxygen Saturation 100% 02/10/2010 024 EDT Inhaled Oxygen Concentration - - Weight - - Height - - Body Mass Index - - documented in this encounter Discharge Instructions * Discharge Instructions* Halina De La Cruz - 02/10/2010 2:21 EDT Drink plenty of fluids. Return to the Emergency Department (ED) if your condition worsens, does not improve as expected, orfor any other concerns. Specifically return if you have new or uncontrolled pain, worsening fever, difficulty breathing, vomiting, or are unable to drink fluids. * Attachments The following attachments cannot be sent through Care Everywhere. * HEADACHE: AFTER YOUR VISIT TO THE EMERGENCY ROOM ([place]) documented in this encounter Medications at Time of Discharge Medication Sig Dispensed Refills Start Date End Date albuterol (PROVENTIL HFA, VENTOLIN HFA) 90 mcg/Actuation inhaler Inhale 2 Puffs as directed every 4 hours. fluticasone-salmeterol (ADVAIR) 250-50 mcg/Dose diskus inhaler Inhale 1 Puff as directed every 12 hours. 04/25/2020 ondansetron (ZOFRAN-ODT) 4 mg disintegrating tablet Take 1 Tab by mouth every 4 hours as needed for Nausea. 20 Tab 0 01/08/2010 03/01/2010 promethazine (PHENERGAN) 25 mg tablet Take 1 Tab by mouth daily. 20 Tab 0 02/10/2010 03/01/2010 sertraline (ZOLOFT) 50 mg tablet Take 50 mg by mouth daily. 03/01/2010 documented as of this encounter Ordered Prescriptions Prescription Sig Dispensed Refills Start Date End Da te promethazine (PHENERGAN) 25 mg tablet Take 1 Tab by mouth daily. 20 Tab 0 02/10/2010 03/01/2010 documented in this encounter Discharge Disposition Disposition Code Departure Means Destination Home or Self Care documented in this encounter ED Notes * Halina De La Cruz - 02/10/2010 0117 EDT DOS: 02/10/2010 Chief Complaint Patient presents with ??? Migraine Pt c/o migraine for 2 days. Pt states photosensitivity. Pt states n/v and hot flashes. Pt is 7 months . Took tylenol with no relief. The patient is a 29 y.o. female who presents today with Migraine HPI Comments: Pt presents with migraine headache. She states it is the same as her typical migraine. It has been going on for 2 days. She is 7 months and states she has taken tylenol withoutrelief. She states she has been vomiting all day and is unable to keep anything down. She denies vision changes but states the light bothers her eyes. Headache is global. The history is provided by the patient. Migraine This is a recurrent problem. The problem occurs constantly. The problem has not changed since onset. The headache is associated with bright light. The pain is located in the bilateral region. The pain is severe. The pain does not radiate. Associated symptoms include nausea and vomiting. Pertinent negatives include no anorexia, no fever, no palpitations and no shortness of breath. She has tried acetaminophen for the symptoms. The treatment provided no relief. Review of Systems Constitutional: Negative. Negative for fever. HENT: Negative for neck pain. Eyes: Positive for photophobia. Negative for pain and visual disturbance. Respiratory: Negative for cough, chest tightness and shortness of breath. Cardiovascular: Negative for palpitations. Gastrointestinal: Positive for nausea and vomiting. Negative for abdominal pain. Musculoskeletal: Negative for myalgias, joint swelling and gait problem. Skin: Negative for rash, color change and pallor. Neurological: Positive for headaches. Negative for dizziness and weakness. Psychiatric/Behavioral: Negative. Past Medical History Diagnosis Date ??? Anxiety ??? Asthma ??? Depression ??? Migraines No past surgical history on file. No Known Allergies History Substance Use Topics ??? Tobacco Use: Yes -- 0.2 packs/day ??? Alcohol Use: No No family history on file. BP 125/60 Pulse 81 Temp(Src) 36 ??C (96.8 ??F) (Tympanic) Resp 16 SpO2 100% LMP OB (KADE:04/12/10) Physical Exam Nursing note and vitals reviewed. Constitutional: She is oriented. She appears well-nourished. No distress. HENT: Head: Atraumatic. Eyes: Extraocular motions are normal. Pupils are equal, round, and reactive to light. Neck: Normal range of motion. Pulmonary/Chest: Effort normal. No respiratory distress. Musculoskeletal: Normal range of motion. Neurological: She is alert and oriented. She displays facial symmetry. Skin: Skin is warm and dry. No pallor. Psychiatric: She has a normal mood and affect. Her behavior is normal. Judgment and thought contentnormal. Radiology orders: None Procedures ED Course: Pt given iv reglan and ivf with resolution to headache. She feels much better and would like to go home. She will follow up as needed. Discharge Prescriptions New Prescriptions PROMETHAZINE (PHENERGAN) 25 MG TABLET Take 1 Tab by mouth daily. MDM Number of Diagnoses and Management Options Migraine: General comments: 4 Patient Progress Patient progress: resolved Encounter Diagnoses Code Name Primary? Qualifier ??? 346.90A Migraine PCP: BETSY KEYS MD 02/13/2010 10:04 PM ED Attending Available for Supervision: Francisco Yoo documented in this encounter Miscellaneous Notes * Scanned Note-Null - Inpatient, Physician - 02/12/2010 1148 EDT documented in this encounter Plan of Treatment Not on file documented as of this encounter Visit Diagnoses Diagnosis Migraine Migraine, unspecified, without mention of intractable migraine without mention of status migrainosus documented in this encounter Administered Medications Inactive Administered Medications - up to 3 most recent administrations Medication Order MAR Action Action Date Dose Rate Site metoCLOPramide (REGLAN) injection 10 mg 10 mg, intravenous, NOW X1, 1 dose, On Sat02/10/10 at 0115, STAT Given 02/10/2010 1:15 EDT 10 mg Promethazine 25 mg Tab STARTER PACK 1 Package, oral, NOW X1, 1 dose, On Sat02/10/10 at 0245, STAT Given 02/10/2010 2:45 EDT 1 Package sodium chloride 0.9 % 1,000 mL BOLUS 1,000 mL, intravenous, Once (Without Time Specified), 1 dose, Starting on Sat02/10/10 at 0100, Until Sat02/10/10 at 0115, STAT Given 02/10/2010 1:15 EDT 1,000 mL documented in this encounter Active and Recently Administered Medications Times are shown in EDT. Scheduled Medication Order 02/08/2010 02/09/2010 02/10/2010 metoCLOPramide (REGLAN) injection 10 mg (COMPLETED) 10 mg, intravenous, NOW X1, 1 dose, On Sat02/10/10 at 0115, STAT 0115 (Given - Provid er: Kaden Kelly) Promethazine 25 mg Tab STARTER PACK (COMPLETED) 1 Package, oral, NOW X1, 1 dose, On Sat02/10/10 at 0245, STAT 0245 (Given - Provid er: Sharifa Howard RN) sodium chloride 0.9 % 1,000 mL BOLUS (COMPLETED) 1,000 mL, intravenous, Once (Without Time Specified), 1 dose, Starting on Sat02/10/10 at 0100, Until Sat02/10/10 at 0115, STAT 0115 (Given - Provid er: Kaden Kelly)0208 (Completed - Provider: Sharifa Howard RN) documented in this encounter Care Teams Staffing Rn Relationship Specialty Start Date End Date Betsy Keys MD [address] [place] [address] PCP - General 01/09/10 09/16/11 documented as of this encounter
--- OUTSIDE RECORDS SUMMARY | 2024-07-02 18:55 | XMS_ITS | Encounter Summary ---
Author Organization [facility] Address [address] [place] [address] Care Team Providers Care Job Setter Honing Name Role Phone Betsy Perez MD Primary Care Provider [phone] Encounter Details Date Type Department Care Team (Latest Contact Info) Description 11/12/2009 10:34 EST - 11/12/2009 10:35 [facility] Hospital Encounter [facility] - Other [address] [place] [address] Benjamin Payne MD [address] [place] [address] Discharge Disposition: Home or Self Care Social [...] on filedocumented in this encounter Care Teams Job Setter Honing Relationship Specialty Start Date End Date Betsy Perez MD [address] [place] [phone] PCP - General 08/08/09 12/29/09 documented as of this encounter
--- OUTSIDE RECORDS SUMMARY | 2024-07-02 18:55 | XMS_ITS | Encounter Summary ---
Author Organization [facility] Address [address] [place] [address] Care Team Providers Care Engagement Mgr Name Role Phone Betsy Keys MD Primary Care Provider [phone] Reason for Visit * Reason Comments Hand Pain SP BLOW TO LEFT THUM B Encounter Details Date Type Department Care Team (Late st Contact Info) Description 06/09/2009 18:00 EDT - 06/09/2009 19:08 EDT Emergency [facility] Emergency Department - [facility] [place] [address] [place] [address] Oliver Murrell, PAMarianaC [address] [address] Emergency, MD Madina Contusion of Left Thumb; Left Thumb Sprain Discharge Disposition: Home or Self Care Social [...] EDT documented as of this encounter Discharge Instructions * Discharge Instructions* Oliver Murrell - 06/09/2009 18:56 EDT * Attachments The following attachments cannot be sent through Care Everywhere. * Bruises: After Your Visit * Hand Sprain: After Your Visit documented in this encounter Medications at Time [...] documented in this encounter ED Notes * Oliver Murrell - 06/09/2009 1853 EDT Images from the original note were not included. DOS: 06/09/2009 Chief Complaint Patient presents with ??? Hand Pain SP BLOW TO LEFT THUMB Patient is a 28 y.o. female presenting with hand pain. The history is provided by the patient. Hand Pain The current episode started today (struck in thumb with foot.). The onset was sudden. The problem has not changed since onset. The symptoms are worsened by movement. Review of Systems Constitutional: Negative. HENT: Negative. Respiratory: Negative. Musculoskeletal: Negative. Skin: Negative. Past Medical History Diagnosis Date ??? Anxiety ??? Asthma ??? Depression History reviewed. No pertinent past surgical history. No Known Allergies History Substance Use Topics ??? Tobacco Use: Yes ??? Alcohol Use: No History reviewed. No pertinent family history. [facility] 05/27/2009 Physical Exam Nursing note and vitals reviewed. Constitutional: She is oriented. She appears well-developed and well-nourished. HENT: Head: Normocephalic and atraumatic. Neck: Normal range of motion. Pulmonary/Chest: Effort normal. Musculoskeletal: Hands: Neurological: She is alert and oriented. Skin: Skin is warm and dry. Radiology orders: FINGER 2 OR MORE VIEWS FINGER 2 OR MORE VIEWS Final result not shown here.: Procedures Consult orders: None ED Course: MDM Number of Diagnoses and Management Options Contusion of Left Thumb: new, needed workup Left Thumb Sprain: new, needed workup Amount and/or Complexity of Data Reviewed Tests in the radiology section of CPT??: ordered and reviewed Independent visualization of images, tracings, or specimens: yes Risk of Complications, Morbidity, and/or Mortality Presenting problems: low Diagnostic procedures: low Management options: low Patient Progress Patient progress: stable Encounter Diagnoses Code Name Primary? Qualifier ??? 923.3 Contusion of Left Thumb ??? 842.10 Left Thumb Sprain PCP: BETSY KEYS MD 06/09/2009 6:53 PM documented in this encounter Miscellaneous Notes * Scanned Note-Null - Inpatient, Physician - 06/12/2009 0857 EDT documented in this encounter Plan of Treatment Not on file documented as of this encounter Procedures Procedure Name Priority Date/Time Associated Diagnosis Comments FINGER 2 OR MORE VIEWS Routine 06/09/2009 18:33 EDT documented in this encounter Results * FINGER 2 OR MORE VIEWS (06/09/2009 18:33 EDT) Anatomical Region Laterality Modality Other 06/09/2009 18:3 3 EDT 06/09/2009 18:47 EDT Narrative 06/09/2009 18:47 EDT FINGER 2 OR MORE VIEWS ??Jun 09, 2009 6:33:00 PM Signs and Symptoms/Comments: ??HAND PAIN No comparison studies are available. Findings: Three views of the left thumb demonstrate mild soft tissue swelling but no evidence of fracture. Procedure Note 06/09/2009 FINGER 2 OR MORE VIEWS Jun 09, 2009 6:33:00 PM Signs and Symptoms/Comments: HAND PAIN No comparison studies are available. Findings: Three views of the left thumb demonstrate mild soft tissue swelling but no evidence of fracture. Oliver Murrell PA-C [facility] ORDERABLES documented in this encounter Visit Diagnoses Diagnosis Contusion of Left Thumb Contusion of finger Left Thumb Sprain Sprain of hand, unspecified site documented in this encounter Administered Medications Inactive Administered Medications - up to 3 most recent administrations Medication Order MAR Action Action Date Dose Rate Site ibuprofen (MOTRIN) tablet 600 mg 600 mg, oral, NOW X1, 1 dose, On Deysi 06/09/09 at 1915, STAT Given 06/09/2009 19:15 EDT 600 mg documented in this encounter Historical Medications * This list may reflect changes made after this encounter. Medication Sig Dispensed Refills Start Date End Date albuterol (PROVENTIL HFA, VENTOLIN HFA) 90 mcg/Actuation inhaler Inhale 2 Puffs as directed every 4 hours. fluticasone-salmeterol (ADVAIR) 250-50 mcg/Dose diskus inhaler Inhale 1 Puff as directed every 12 hours. 04/25/2020 added in this encounter Active and Recently Administered Medications Times are shown in EDT. Scheduled Medication Order 06/07/2009 06/08/2009 06/09/2009 ibuprofen (MOTRIN) tablet 600 mg (COMPLETED) 600 mg, oral, NOW X1, 1 dose, On Deysi 06/09/09 at 1915, STAT 1915 (Given - Provid er: Dylon Kaba) documented in this encounter Care Teams Engagement Mgr Relationship Specialty Start Date End Date Betsy Keys MD [address] [place] [address] PCP - General 04/23/09 08/07/09 documented as of this encounter
--- OUTSIDE RECORDS SUMMARY | 2024-07-02 18:55 | XMS_ITS | Encounter Summary ---
Author Organization [facility] Address [address] [place] [address] Care Team Providers Care Landing Scaler Name Role Phone Betsy Perez MD Primary Care Provider [phone] Encounter Details Date Type Department Care Team (Late st Contact Info) Description 01/24/2010 Abstract [facility]'s Services - [facility] [address] [place] [address] Betsy Perez MD [address] [place] [address] Encounter for routine screening for malformation using ultrasonics; Obesity Social History Tobacco Use Types Packs/Day Years [...] as of this encounter Visit Diagnoses Diagnosis Encounter for routine screening for malformation using ultrasonics Obesity Obesity, unspecified documented in this encounter Care Teams Landing Scaler Relationship Specialty Start Date End Date Betsy Perez MD [address] [place] [phone] PCP - General 01/09/10 09/16/11 documented as of this encounter
--- OUTSIDE RECORDS SUMMARY | 2024-07-02 18:55 | XMS_ITS | Encounter Summary ---
Author Organization [facility] Address [address] [place] [id number] Care Team Providers Care Wrapping Checker Name Role Phone Betsy Perez MD Primary Care Provider [phone] Encounter Details Date Type Department Care Team (Late st Contact Info) Description 03/02/2010 Results Only [facility] [phone] Selma Woo MD [address] [place] [address] [address] [place] [id number] Social History Tobacco Use Types Packs/Day Years [...] Procedure Name Priority Date/Time Associated Diagnosis Comments RAD US ABDOMEN COMPLETE 03/02/2010 8:17 EDT documented in this encounter Results * RAD US ABDOMEN COMPLETE (03/02/2010 8:17 EDT) Anatomical Region Laterality Modality Other 03/02/2010 8:17 EDT 03/02/2010 9:45 EDT Narrative 03/02/2010 9:45 EDT US ABD COMPLETE ??Mar 02, 2010 08:17:00 AM Signs and Symptoms/Comments: ??, abdominal pain, pain right and left quadrant. Comparison: None Findings: The examination is limited due to the large amount of bowel gas and the fact that the patient is . Pancreas is not visualized due to overlying bowel gas. The liver measures 16.8 cm in length and demonstrates normal echogenicity. No focal masses are seen. There is no intrahepatic biliary ductal dilatation. The gallbladder is normal in appearance with the wall measuring 1.9 mm in thickness. No intraluminal stones are seen. The common bile duct measures 3.8 mm in diameter. No intraductal stones are seen. The right kidney measures 10.2 cm in length and demonstrates no hydronephrosis. Left kidney measures 10.3 cm in length and demonstrates no hydronephrosis. The spleen measures 8.6 x 13.9 x 5.5 cm with a calculated volume of 346 mL. Proximal aorta and IVC are normal in appearance. ??The distal abdominal aorta is not visualized due to overlying bowel gas. The bladder is decompressed. Impression: 1. Exam somewhat difficult due to patient's ?? displacing the abdominal organs superiorly and the large amount of bowel gas.. 2.The pancreas could not be visualized, otherwise, no definite abdominal abnormalities. I have personally reviewed the images and the above interpretation and agree with the findings. Procedure Note Nehemiah Hardy MD / Nehemiah Hardy MD / Nehemiah Hardy MD - 03/02/2010 US ABD COMPLETE Mar 02, 2010 08:17:00 AM Signs and Symptoms/Comments: , abdominal pain, pain right and left quadrant. Comparison: None Findings: The examination is limited due to the large amount of bowel gas and the fact that the patient is . Pancreas is not visualized due to overlying bowel gas. The liver measures 16.8 cm in length and demonstrates normal echogenicity. No focal masses are seen. There is no intrahepatic biliary ductal dilatation. The gallbladder is normal in appearance with the wall measuring 1.9 mm in thickness. No intraluminal stones are seen. The common bile duct measures 3.8 mm in diameter. No intraductal stones are seen. The right kidney measures 10.2 cm in length and demonstrates no hydronephrosis. Left kidney measures 10.3 cm in length and demonstrates no hydronephrosis. The spleen measures 8.6 x 13.9 x 5.5 cm with a calculated volume of 346 mL. Proximal aorta and IVC are normal in appearance. The distal abdominal aorta is not visualized due to overlying bowel gas. The bladder is decompressed. Impression: 1. Exam somewhat difficult due to patient's displacing the abdominal organs superiorly and the large amount of bowel gas.. 2.The pancreas could not be visualized, otherwise, no definite abdominal abnormalities. I have personally reviewed the images and the above interpretation and agree with the findings. Selma Woo MD IMG US ORDERABLES documented in this encounter Visit Diagnoses Not on filedocumented in this encounter Care Teams Wrapping Checker Relationship Specialty Start Date End Date Betsy Perez MD [address] [place] [id number] PCP - General 01/09/10 09/16/11 documented as of this encounter
--- OUTSIDE RECORDS SUMMARY | 2024-07-02 18:55 | XMS_ITS | Encounter Summary ---
Author Organization [facility] Address [address] [place] [address] Care Team Providers Care Hiv Counselor Name Role Phone Betsy Perez MD Primary Care Provider [phone] Encounter Details Date Type Department Care Team (Late st Contact Info) Description 02/22/2010 Results Only [facility] - [facility] [address] [place], [place] [phone] Selma Woo MD [address] [facility], [address] [place] [address] Social History Tobacco Use Types [...] Procedure Name Priority Date/Time Associated Diagnosis Comments COMPLETE BLOOD COUNT Routine 02/22/2010 11:35 EDT C REACTIVE PROTEIN Routine 02/22/2010 11 :35 EDT ALT Routine 02/22/2010 11:35 EDT AST Routine 02/22/2010 11:35 EDT documented in this encounter Results * (ABNORMAL) C-REACTIVE PROTEIN (02/22/2010 11:35 EDT) Pathologist [facility] C-Reactive Protein 2.1(H) <1.0 mg/dl [facility] 02/22/2010 11:3 5 EDT 02/22/2010 20:37 EDT Selma Woo MD CHEMISTRY & BLOOD GA S ORDERABLES Performing Organization Address [facility] Co de Phone Number [facility] [address] [place] [address] * (ABNORMAL) HEMAGRAM (02/22/2010 11:35 EDT) Pathologist [facility] WBC 11.42 4.0 - 12.4 K/cmm [facility] RBC 3.83(L) 3.86 - 5.04 M/cmm [facility] Hemoglobin 11.9 11.6 - 15.2 gm/dl [facility] HCT 34.9 34.9 - 44.4 % [facility] MCV 91 81 - 98 fl [facility] MCH 31.2 26.7 - 33.3 pg [facility] MCHC 34.2 32.1 - 35.9 gm/dl [facility] PLT 264 141 - 320 K/cmm [facility] RDW-CV 14.1 11.7 - 14.6 % [facility] 02/22/2010 11:3 5 EDT 02/22/2010 20:37 EDT Selma Woo MD HEMATOLOGY & PF4 ORD ERABLES Performing Organization Address [facility] Co de Phone Number [facility] [address] [place] [address] * AST (02/22/2010 11:35 EDT) Pathologist [facility] AST 16 15 - 46 U/L [facility] 02/22/2010 11:3 5 EDT 02/22/2010 20:37 EDT Selma Woo MD CHEMISTRY & BLOOD GA S ORDERABLES Performing Organization Address [facility] Co de Phone Number [facility] [address] [place] [address] * ALT (02/22/2010 11:35 EDT) ALT 14 9 - 52 U/L [facility] 02/22/2010 11:3 5 EDT 02/22/2010 20:37 EDT Selma Woo MD CHEMISTRY & BLOOD GA S ORDERABLES Performing Organization Address [facility] Co de Phone Number [facility] [address] [place] [address] documented in this encounter Visit Diagnoses Not on filedocumented in this encounter Care Teams Hiv Counselor Relationship Specialty Start Date End Date Betsy Perez MD [address] [place] [address] PCP - General 01/09/10 09/16/11 documented as of this encounter
--- OUTSIDE RECORDS SUMMARY | 2024-07-02 18:55 | XMS_ITS | Encounter Summary ---
Author Organization [facility] Address [address] [place] [address] Care Team Providers Care Nephrologist Name Role Phone Betsy Perez MD Primary Care Provider [phone] Encounter Details Date Type Department Care Team (Late st Contact Info) Description 11/23/2009 15:20 EST - 11/23/2009 23:59 [facility] Hospital Encounter [facility] [address] [place] [address] Willy Mccullough MD [address] [facility], [address] [place] [address] Discharge Disposition: Home or Self [...] Code Departure Means Destination Home or Self Mcfp documented in this encounter Plan of Treatment Not on file documented as of this encounter Procedures Procedure Name Priority Date/Time Associated Diagnosis Comments GLUCOSE-1HR GESTATIONAL SCREEN Routine 11/29/2009 10:10 EST HGB Routine 11/29/2009 10:10 EST documented in this encounter Results * HGB (11/29/2009 10:10 EST) Hemoglobin 11.6 11.6 - 15.2 gm/dl [facility] 11/29/2009 10:1 0 EST 11/29/2009 11:58 EST Selma Woo MD HEMATOLOGY & PF4 ORD ERABLES Performing Organization Address [facility] de Phone Number [facility] [address] [place] [address] * GLUCOSE-1HR GESTATIONAL SCREEN (11/29/2009 10:10 EST) Glucose Dose 50 g [facility] Glucose-1hr Gest Scn 135 50 - 135 mg/dl [facility] Comment: A one hour glucose greater than or equal to 135 mg/dl should be further evaluated with a formal three hour glucose tolerance test. 11/29/2009 10:1 0 EST 11/29/2009 11:58 EST Selma Woo MD PACKAGES & DNA PROBE ORDERABLES Performing Organization Address [facility] Co de Phone Number [facility] [address] [place] [address] documented in this encounter Visit Diagnoses Not on filedocumented in this encounter Care Teams Nephrologist Relationship Specialty Start Date End Date Betsy Perez MD [address] [place] [address] PCP - General 08/08/09 12/29/09 documented as of this encounter
--- OUTSIDE RECORDS SUMMARY | 2024-07-02 18:55 | XMS_ITS | Encounter Summary ---
Author Organization [facility] Address [address] [place] [address] Care Team Providers Care Packing Room Inspector Name Role Phone Betsy Perez MD Primary Care Provider [phone] Encounter Details Date Type Department Care Team (Late st Contact Info) Description 02/10/2010 9:17 EDT - 02/10/2010 23:59 EDT Hospital Encounter [facility] [place] [address] [place] [address] James Barrett MD [address] [facility], [address] [place] [address] Discharge Disposition: Home or Self [...] daily. 03/01/2010 documented as of this encounter Discharge Disposition Disposition Code Departure Means Destination Home or Self Fpc documented in this encounter Plan of Treatment Not on file documented as of this encounter Visit Diagnoses Not on filedocumented in this encounter Care Teams Packing Room Inspector Relationship Specialty Start Date End Date Betsy Perez MD [address] [place] [address] PCP - General 01/09/10 09/16/11 documented as of this encounter
--- OUTSIDE RECORDS SUMMARY | 2024-07-02 18:55 | XMS_ITS | Encounter Summary ---
Author Organization [facility] Address [address] [place] [address] Care Team Providers Care Paint Roller Winder Name Role Phone Betsy Perez MD Primary Care Provider Nicky Fernandez APRN Primary Care Provider Unava ilable Encounter Details Date Type Department Care Team (Late st Contact Info) Description 04/22/2009 23:23 EDT - 04/23/2009 4:47 EDT Emergency [facility] Emergency Department - [facility] [place] [address] [place], [place] [id number] Emergency, Default, Discharge Disposition: Home or Self Care Social History Tobacco Use Types Packs/Day Years Used Date Smoking Tobacco: Never Assessed Sex and Gender Information Value Date Recorded Sex Assigned at Female 05/03/2022 19:33 EDT Gender Identity Female 05/02/2020 15:51 EDT Sexual Orientation Straight 05/03/2022 19 :33 EDT documented as of this encounter Discharge Disposition Disposition Code Departure Means Destination Home or Self Care documented in this encounter Plan of Treatment Not on file documented as of this encounter Procedures Procedure Name Priority Date/Time Associated Diagnosis Comments HAND 3 OR MORE VIEWS 04/23/2009 2:23 EDT documented in this encounter Results * HAND 3 OR MORE VIEWS (04/23/2009 2:23 EDT) Anatomical Region Laterality Modality Other 04/23/2009 2:23 EDT 04/23/2009 9:24 EDT Narrative 04/23/2009 9:24 EDT HAND 3 OR MORE VIEWS ??April 23, 2009 2:23:00 AM Signs and Symptoms: ??punched wall, pain Findings: PA, oblique, lateral views of the right hand were obtained without comparison. Joints are normally aligned. There is no fracture. I have personally reviewed the images and the above interpretation and agree with the findings. Procedure Note Fran Chaidez MD / Fran Chaidez MD / Fran Chaidez MD - 04/23/2009 HAND 3 OR MORE VIEWS April 23, 2009 2:23:00 AM Signs and Symptoms: punched wall, pain Findings: PA, oblique, lateral views of the right hand were obtained without comparison. Joints are normally aligned. There is no fracture. I have personally reviewed the images and the above interpretation and agree with the findings. Anamika MONAHAN IMStef[facility]NO[facility]I NG ORDERABLES documented in this encounter Visit Diagnoses Not on filedocumented in this encounter Care Teams Paint Roller Winder Relationship Specialty Start Date End Date Betsy Perez MD [address] [place] [address] PCP - General 04/23/09 08/07/09 Nicky Fernandez APRN PCP - General 03/24/09 04/22/09 documented as of this encounter
--- OUTSIDE RECORDS SUMMARY | 2024-07-02 18:55 | XMS_ITS | Encounter Summary ---
Author Organization [facility] Address [address] [place] [address] Care Team Providers Care Air Sealing Technician Name Role Phone Betsy Perez MD Primary Care Provider [phone] Encounter Details Date Type Department Care Team (Latest Contact Info) Description 03/02/2010 6:56 EDT - 03/02/2010 23:59 EDT Hospital Encounter [facility] [address] [place] [address] Betsy Perez MD [address] [place] [address] Discharge Disposition: Auto Discharge Social [...] 2 Puffs as directed every 4 hours. clotrimazole (GYNE-LOTRIMIN) 1 % vaginal cream Place 1 Applicator vaginally at bedtime for 7 doses. 1 Tube 0 03/01/2010 03/08/2010 fluticasone-salmeterol (ADVAIR) 250-50 mcg/Dose diskus inhaler Inhale 1 Puff as directed every 12 hours. 04/25/2020 documented as of this encounter Discharge Disposition Disposition Code Departure Means Destination Auto Discharge Home documented in this encounter Plan of Treatment Not on file documented as of this encounter Visit Diagnoses Not on filedocumented in this encounter Care Teams Air Sealing Technician Relationship Specialty Start Date End Date Betsy Perez MD [address] [place] [address] PCP - General 01/09/10 09/16/11 documented as of this encounter
--- OUTSIDE RECORDS SUMMARY | 2024-07-02 18:55 | XMS_ITS | Encounter Summary ---
Author Organization [facility] Address [address] [place] [address] Care Team Providers Care Granulating Machine Operator Name Role Phone Carlos Damian MD Primary Care Provider [phone] Encounter Details Date Type Department Care Team (Late st Contact Info) Description 01/08/2010 6:30 EST - 01/08/2010 9:30 EST Hospital Encounter [facility] [address], [place] [address] Beba Pinzon MD [address] [place] [phone] Selma Woo MD [address] [facility], [address] [place] [phone] Discharge Disposition: Home or Self Care Social [...] Sign Reading Time Taken Comments Blood Pressure 123/65 01/08/2010 0757 EST Pulse 67 01/08/2010 0757 EST Temperature 35.5 ??C (95.9 ??F) 01/08/2010 0745 EST Respiratory Rate 18 01/08/2010 0757 EST Oxygen Saturation - - Inhaled Oxygen Concentration - - Weight - - Height - - Body Mass Index - - documented in this encounter Discharge Instructions * Discharge Instructions* Young Taylor MD - 01/08/2010 8:23 EST Discharge Instructions L&D Call your provider if: ?? Your water breaks There's any bright red bleeding Your are not feeling the baby move Severe headaches and/or blurry vision Contractions are closer together and/or stronger, or you are having constant pain Medications: ?? Continue any present medication Activity: ?? Drink plenty of fluids and eat well As tolerated, lie on your left side while resting/napping Extra rest until you feel better Call Provider's Office For: ?? Keep all scheduled appointments with Affiliates in FRONT END APPLICATION DEVELOPER YOUNG TAYLOR MD 01/08/2010 8:23 AM documented in this encounter Medications at Time [...] for Nausea. 20 Tab 0 01/08/2010 03/01/2010 sertraline (ZOLOFT) 50 mg tablet Take 50 mg by mouth daily. 03/01/2010 documented as of this encounter Ordered Prescriptions Prescription Sig Dispensed Refills Start Date End Da te ondansetron (ZOFRAN-ODT) 4 mg disintegrating tablet Take 1 Tab by mouth every 4 hours as needed for Nausea. 20 Tab 0 01/08/2010 03/01/2010 documented in this encounter Discharge Disposition Disposition Code Departure Means Destination Home or Self Care documented in this encounter Progress Notes * Debbie Alarcon RN - 01/08/2010 0930 EST Pt given discharge instructions.Iv D/[place].Pt talked to mother on phone,got dressed on own.Taken by wheelchair by LDA to ER after ordering cab.Given prescription for Zofran and told that her first dosecould be at 1500 today.No emesis since 0700 today.Taking PO anthony spike. * Debbie Alarcon RN - 01/08/2010 0916 EST Pt tolerated PO anthony spike with her zofran.Sleeping when left undisturbed. * Debbie Alarcon RN - 01/08/2010 0838 EST Pt sleeping soundly when left undusturbed.Difficult to arouse. * Selma Woo MD - 01/08/2010 0804 EST R2 OB PN CC:Abdominal Pain RH+ Subjective: Pt notes that she has had crampy abdominal pain near her umbilicus since ~03:30. The pain was constant in nature, and is now more crampy, does not radiate. Pt notes nausea and emesis X2. Denies anyurinary Sx or change in bowel function. No hematuria, hematochezia, fevers/chills, or recent sick contacts. Denies VB, LOF or decreased FM. Objective: Filed Vitals: 01/08/2010 6:50 AM 01/08/2010 7:45 AM BP: 135/53 Pulse: 89 Temp: 35.8 ??C (96.4 ??F) 35.5 ??C (95.9 ??F) TempSrc: Tympanic Tympanic Resp: 18 GEN: alert, cooperative CV: RRR RESP: CTAB ABD: +BS, soft, NTTP, ND, gravid. NO CVA tenderness EXT: NTTP, no erythema, wwp FHT: BL 135, moderate variability, + accels, no decels TOCO: 1? Contraction in one hour SVE:closed/long Lab Results Component Value Date/Time ??? WBC 16.40 01/08/10 7:10 AM ??? HGB 11.7 01/08/10 7:10 AM ??? HCT 33.5 01/08/10 7:10 AM ??? MCV 90 01/08/10 7:10 AM ??? PLT 284 01/08/10 7:10 AM CRP 1.5 Urine: 1+ ketones; otherwise negative LE, nitrite, protein Assessment/Plan: Yesenia Fragoso is a 29 y.o. 26w4d (KADE 04/12) with abdominal pain, most likely 2/2 to gastritis. Unlikely to be from a UTI/pyelo given no CVA tenderness, UA negative, afebrile. Unlikely PTL given SVE long and closed with no contractions. Appendicitis is still on the differential given elevated wbc with papito-umbilical pain and nausea. # will try PO fluids/toast and crackers to see if pt can tolerate without nausea/emesis # IVF bolus 1 L X1 # d/w Dr. Woo Attestation statement: I saw and examined the patient with the resident/fellow. I agree with the findings and plan of care documented in the resident's/fellow's note. * Debbie Alarcon RN - 01/08/[address] brand in to speak with pt. * Debbie Alarcon RN - 01/08/2010 0733 EST Resting with eyes closed when left undisturbed. * Candice Mobley RN - 01/08/2010 0721 EST Report to A Dorian RN * Candice Mobley RN - 01/08/2010 0641 EST Pt admitted to triage, reports continuous crampy abdominal pain since 033, + FM , denies LF or VB.Last cervical exam 12/26 cervix was closed documented in this encounter Miscellaneous Notes * Scanned Note-Null - Inpatient, Physician - 01/10/2010 0955 EST * Scanned Note-Null - Inpatient, Physician - 01/09/2010 0740 EST * Scanned Note-Null - Inpatient, Physician - 01/09/2010 0740 EST documented in this encounter Plan of Treatment Not on file documented as of this encounter Procedures Procedure Name Priority Date/Time Associated Diagnosis Comments C REACTIVE PROTEIN STAT 01/08/2010 7: 17 EST COMPLETE BLOOD COUNT AND DIFFERENTIAL STAT 01/08/2010 7:10 EST URINALYSIS WITH MICROSCOPIC IF POSITIVE STAT 01/08/2010 6:50 EST UA REFLEX Routine 01/08/2010 6:50 EST URINE CULTURE IF POSITIVE STAT 01/08/2010 6:50 EST documented in this encounter Results * (ABNORMAL) C-REACTIVE PROTEIN (01/08/2010 7:17 EST) C-Reactive Protein 1.5(H) <1.0 mg/dl [facility] Comment: Results may be affected due to hemolysis. Slight hemolysis Blood specimen (specimen) 01/08/2010 7:17 EST 01/08/2010 7:24 EST Dahiana Vega MD CHEMISTRY & BLOOD GA S ORDERABLES [facility] [address] [place] [address] * (ABNORMAL) HEMAGRAM AND DIFFERENTIAL (01/08/2010 7:10 EST) WBC 16.40(H) 4.0 - 12.4 K/cmm [facility] RBC 3.71(L) 3.86 - 5.04 M/cmm [facility] Hemoglobin 11.7 11.6 - 15.2 gm/dl [facility] HCT 33.5(L) 34.9 - 44.4 % [facility] MCV 90 81 - 98 fl [facility] MCH 31.6 26.7 - 33.3 pg [facility] MCHC 34.9 32.1 - 35.9 gm/dl [facility] PLT 284 141 - 320 K/cmm [facility] RDW-CV 12.9 11.7 - 14.6 % [facility] Neutrophils 87.8(H) 45.5 - 79.7 % [facility] Lymphocytes 9.5(L) 15.0 - 46.8 % [facility] Monocytes 1.6(L) 1.8 - 12.0 % [facility] Eosinophils 0.9 0.6 - 6.9 % [facility] Basophils 0.2 0.2 - 1.4 % [facility] ABS Neutrophils 14.41(H) 2.20 - 8.85 K/cmm [facility] ABS Lymphs 1.55 1.09 - 3.30 K/cmm [facility] ABS Monocytes 0.26 0.1 - 0.8 K/cmm [facility] ABS Eosinophils 0.15 0.03 - 0.61 K/cmm [facility] ABS Basophils 0.03 0.01 - 0.11 K/cmm [facility] Type of Diff: Automated [facility] Blood specimen (specimen) 01/08/2010 7:10 EST 01/08/2010 7:24 EST Dahiana Vega MD PACKAGES & DNA PROBE ORDERABLES [facility] [address] [place] [address] * UA REFLEX (01/08/2010 6:50 EST) UA Billing Microscopic not indicated. [facility] 01/08/2010 6:50 EST 01/08/2010 7:21 EST Dahiana Vega MD URINALYSIS ORDERABLE S Performing Organization Address [facility] de Phone Number [facility] [address] [place] [address] * CULTURE IF UA POSITIVE (01/08/2010 6:50 EST) Culture if Indicated Culture not indicated by urinalysis results. [facility] Urine specimen (specimen) 01/08/2010 6:50 EST 01/08/2010 7:21 EST Dahiana Vega MD MICROBIOLOGY - GENER AL ORDERABLES Performing Organization Address [facility] de Phone Number [facility] [address] [place] [address] * (ABNORMAL) URINALYSIS WITH REFLEX MICROSCOPIC (01/08/2010 6:50 EST) Color, UA Yellow [facility] Clarity, UA Clear [facility] Glucose, UA Neg NEG [facility] Bilirubin, UA Neg NEG [facility] Ketones, UA 1+(A) NEG [facility] Specific Entriken, Urine 1.010 1.001 - 1.035 [facility] Blood, UA Neg NEG [facility] pH, UA 6.5 4.6 - 8.0 [facility] Protein, UA Neg NEG [facility] Urobilinogen, UA 0.2 0.2 - 1.0 E.U./dl [facility] Nitrite, UA Neg NEG [facility] Leuk Esterase Neg NEG [facility] Urine specimen (specimen) 01/08/2010 6:50 EST 01/08/2010 7:21 EST Dahiana Vega MD URINALYSIS ORDERABLE S [facility] [address] [place] [address] documented in this encounter Visit Diagnoses Not on filedocumented in this encounter Administered Medications Inactive Administered Medications - up to 3 most recent administrations Medication Order MAR Action Action Date Dose Rate Site lactated ringers (LR) 1,000 mL BOLUS 1,000 mL, intravenous, NOW X1, 1 dose, On 01/08/10 at 0715, Routine Given 01/08/2010 7:10 EST 1,000 mL lactated ringers (LR) infusion at 150-200 mL/hr, intravenous, CONTINUOUS, Starting on 01/08/10 at 0715, Until 01/08/10 at 1158, Routine New Bag 01/08/2010 7:10 EST 200 mL/hr ondansetron (ZOFRAN-ODT) disintegrating tablet 4 mg 4 mg, oral, EVERY 4 HOURS PRN, Starting on 01/08/10 at 0826, Until 01/08/10 at 1158, Nausea, Routine Given 01/08/2010 8:52 EST 4 mg documented in this encounter Active and Recently Administered Medications Times are shown in EST. Scheduled Medication Order 01/06/2010 01/07/2010 01/08/2010 lactated ringers (LR) 1,000 mL BOLUS (COMPLETED) 1,000 mL, intravenous, NOW X1, 1 dose, On 01/08/10 at 0715, Routine 0710 (Given - Provid er: Candice Mobley RN) Continuous Medication Order 01/06/2010 01/07/2010 01/08/2010 lactated ringers (LR) infusion (CANCELED) at 150-200 mL/hr, intravenous, CONTINUOUS, Starting on 01/08/10 at 0715, Until 01/08/10 at 1158, Routine 0710 (New Bag - Prov ider: Debbie Alarcon RN)0836 (Completed - Provider: Debbie Alarcon RN) PRN Medication Order 01/06/2010 01/07/2010 01/08/2010 ondansetron (ZOFRAN-ODT) disintegrating tablet 4 mg 4 mg, oral, EVERY 4 HOURS PRN, Starting on 01/08/10 at 0826, Until 01/08/10 at 1158, Nausea, Routine 0852 (Given - Provid er: Debbie Alarcon RN) documented in this encounter Orders Diet Count Last Ordered Date First Orde red Date DIET NPO TIME SPECIFIED 1 01/08/2010 Nursing Count Last Ordered Date First Orde red Date BEDREST WITH BATHROOM PRIVILEGES 1 01/08/20 10 Admission Count Last Ordered Date First Orde red Date NOTIFY PPS OF DISCHARGE COMPLETE 1 01/08/20 10 Discharge Count Last Ordered Date First Orde red Date DISCHARGE PATIENT 1 01/08/2010 documented in this encounter Care Teams Granulating Machine Operator Relationship Specialty Start Date End Date Carlos Damian MD [address] [phone] PCP - General 01/02/10 01/08/10 documented as of this encounter
--- OUTSIDE RECORDS SUMMARY | 2024-07-02 18:55 | XMS_ITS | Encounter Summary ---
Author Organization [facility] Address [address] [place] [address] Care Team Providers Care Buffer Nickel Name Role Phone Betsy Perez MD Primary Care Provider [phone] Encounter Details Date Type Department Care Team (Late st Contact Info) Description 12/29/2009 10:13 EST - 12/29/2009 23:59 [facility] Hospital Encounter [facility] - Other [address] [place] [address] James Barrett MD [address] [facility], [address] [place] [address] Discharge Disposition: Home or Self [...] on filedocumented in this encounter Care Teams Buffer Nickel Relationship Specialty Start Date End Date Betsy Perez MD [address] [place] [phone] PCP - General 08/08/09 12/29/09 documented as of this encounter
--- OUTSIDE RECORDS SUMMARY | 2024-07-02 18:55 | XMS_ITS | Encounter Summary ---
Author Organization [facility] Address [address] [place] [address] Care Team Providers Care City Distribution Clerk Name Role Phone Nicky Fernandez APRN Primary Care Provider Unava ilable Encounter Details Date Type Department Care Team (Late st Contact Info) Description 04/11/2009 21:18 EDT - 04/12/2009 1:24 EDT Emergency [facility] Emergency Department - [facility] [address] [place] [address] Emergency, Default, MD Discharge Disposition: Home or Self Care Social [...] Name Priority Date/Time Associated Diagnosis Comments HOLD SST Routine 04/11/2009 23:52 EDT HOLD PURPLE TOP Routine 04/11/2009 23:52 EDT HOLD GREEN TOP Routine 04/11/2009 23:52 EDT HOLD BLUE TOP Routine 04/11/2009 23:52 EDT documented in this encounter Results * HOLD SST (04/11/2009 23:52 EDT) Hold SST Hold for further testing. Specimen will be held for 5 days. [facility] Blood specimen (specimen) 04/11/2009 23:52 EDT 04/11/2009 23:56 EDT Default Emergency MD LAB INFO SERVICE AN D SUPPORT & PHONE RESULT Performing Organization Address [facility] de Phone Number [facility] [address] [place] [address] * HOLD PURPLE TOP (04/11/2009 23:52 EDT) Hold Purple Top EDTA for hematology will be discarded after 48 hours, differential not available after 12 hours. [facility] Blood specimen (specimen) 04/11/2009 23:52 EDT 04/11/2009 23:56 EDT Default Emergency MD LAB INFO SERVICE AN D SUPPORT & PHONE RESULT Performing Organization Address [facility] de Phone Number [facility] [address] [place] [address] * HOLD GREEN TOP (04/11/2009 23:52 EDT) Hold Green Top Hold for further testing. Specimen will be held for 5 days. [facility] Blood specimen (specimen) 04/11/2009 23:52 EDT 04/11/2009 23:56 EDT Default Emergency MD LAB INFO SERVICE AN D SUPPORT & PHONE RESULT Performing Organization Address [facility] de Phone Number [facility] [address] [place] [address] * HOLD BLUE TOP (04/11/2009 23:52 EDT) Hold Blue Top Sample for coagulation will be discarded after 4 hours [facility] Blood specimen (specimen) 04/11/2009 23:52 EDT 04/11/2009 23:56 EDT Default Emergency MD LAB INFO SERVICE AN D SUPPORT & PHONE RESULT Performing Organization Address [facility] Co de Phone Number [facility] [address] [place] [address] documented in this encounter Visit Diagnoses Not on filedocumented in this encounter Care Teams City Distribution Clerk Relationship Specialty Start Date End Date Nicky Fernandez, DELMI PCP - General 03/24/09 04/22/09 documented as of this encounter
--- OUTSIDE RECORDS SUMMARY | 2024-07-02 18:55 | XMS_ITS | Encounter Summary ---
Author Organization [facility] Address [address] [place] [address] Care Team Providers Care Mergers And Acquisitions Consultant Name Role Phone Betsy Perez MD Primary Care Provider [phone] Encounter Details Date Type Department Care Team (Late st Contact Info) Description 11/29/2009 9:56 EST - 11/29/2009 9:57 [facility] Hospital Encounter [facility] - Other [address] [place] [address] Selma Woo MD [address] [facility], [address] [place] [phone] Discharge Disposition: Home or Self Care Social [...] Associated Diagnosis Comments GLUCOSE-1HR GESTATIONAL SCREEN Routine 12/29/2009 15:00 EST HGB Routine 12/29/2009 15:00 EST documented in this encounter Results * (ABNORMAL) HGB (12/29/2009 15:00 EST) Hemoglobin 11.4(L) 11.6 - 15.2 gm/dl [facility] 12/29/2009 15:0 0 EST 12/29/2009 19:17 EST James Barrett MD HEMATOLOGY & PF4 O RDERABLES Performing Organization Address [facility] de Phone Number [facility] [address] [place] [address] * (ABNORMAL) GLUCOSE-1HR GESTATIONAL SCREEN (12/29/2009 15:00 EST) Glucose Dose Not Given g [facility] Glucose-1hr Gest Scn 150(H) 50 - 135 mg/dl [facility] Comment: A one hour glucose greater than or equal to 135 mg/dl should be further evaluated with a formal three hour glucose tolerance test. 12/29/2009 15:0 0 EST 12/29/2009 19:17 EST James Barrett MD PACKAGES & DNA PRO BE ORDERABLES Performing Organization Address [facility] Co de Phone Number [facility] [address] [place] [address] documented in this encounter Visit Diagnoses Not on filedocumented in this encounter Care Teams Mergers And Acquisitions Consultant Relationship Specialty Start Date End Date Betsy Perez MD [address] [place] [phone] PCP - General 08/08/09 12/29/09 documented as of this encounter
--- OUTSIDE RECORDS SUMMARY | 2024-07-02 18:55 | XMS_ITS | Encounter Summary ---
Author Organization [facility] Address [address] [place] [address] Care Team Providers Care Client Services Analyst Name Role Phone Betsy Perez MD Primary Care Provider [phone] Encounter Details Date Type Department Care Team (Late st Contact Info) Description 02/22/2010 11:02 EDT - 02/22/2010 23:59 EDT Hospital Encounter [facility] - Other [address] [place] [address] Selma Woo MD [address] [facility], [address] [place] [address] Discharge Disposition: Auto Discharge Social History Tobacco [...] Destination Auto Discharge documented in this encounter Plan of Treatment Not on file documented as of this encounter Visit Diagnoses Not on filedocumented in this encounter Care Teams Client Services Analyst Relationship Specialty Start Date End Date Betsy Perez MD [address] [place] [phone] PCP - General 01/09/10 09/16/11 documented as of this encounter
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
--- OUTSIDE RECORDS SUMMARY | 2024-07-02 18:55 | XMS_ITS | Encounter Summary ---
Author Organization [facility] Address [address] [place] [address] Care Team Providers Care Net Mender Name Role Phone Nicky Fernandez APRN Primary Care Provider Unava ilable Reason for Visit * Reason Comments Migraine Migraine started thi s morning, has been vomiting and cannot keep any fluids down. Encounter Details Date Type Department Care Team (Late st Contact Info) Description 12/30/2009 19:48 EST - 12/31/2009 1:47 EST Emergency [facility] Emergency Department - Main [address] [address] Christian Hightower, PAMarianaC [address] [address] Emergency, MD Madina Migraine Discharge Disposition: Home [...] Sign Reading Time Taken Comments Blood Pressure 101/55 12/30/2009 2340 EST Pulse 96 12/31/2009 0145 EST Temperature 36.2 ??C (97.2 ??F) 12/30/2009 2340 EST Respiratory Rate 16 12/31/2009 0145 EST Oxygen Saturation 99% 12/30/2009 2340 EST Inhaled Oxygen Concentration - - Weight - - Height - - Body Mass Index - - documented in this encounter Discharge Instructions * Discharge Instructions* Christian Hightower - 12/31/2009 1:25 EST Images from the original note were not included. Return here with any worsening symptoms or if you develop any fever/chills or neck pain/stiffness [facility] Patient Instructions Migraine Headache: After Your Visit Your Care Instructions Migraines are painful, throbbing headaches that often start on one side of the head. They may causenausea and vomiting and make you sensitive to light, sound, or smell. Without treatment, migraines can last from 4 hours to a few days. Medicines can help prevent migraines or stop them once they have started. Your doctor can help you find which ones work best for you. Follow-up care is a suggs part of your treatment and safety. Be sure to make and go to all appointments, and call your doctor if you are having problems. It???s also a good idea to know your test results and keep a list of the medicines you take. How can you care for yourself at home? ?? Do not drive if you have taken a prescription pain medicine. Rest in a quiet, dark room until your headache is gone. Close your eyes and try to relax or go to sleep. Do not watch TV or read. Put a cold, moist cloth or cold pack on the painful area for 10 to 15 minutes at a time. Put a thincloth between the cold pack and your skin. Have someone gently massage your neck and shoulders. Take your medicines exactly as prescribed. Call your doctor if you think you are having a problem with your medicine. You will get more details on the specific medicines your doctor prescribes. To prevent migraines ?? Keep a headache diary so you can figure out what triggers your headaches. Avoiding triggers may help you prevent headaches. Record when each headache began, how long it lasted, and what the pain was like (throbbing, aching, stabbing, or dull). Write down any other symptoms you had with the headache, such as nausea, flashing lights or dark spots, or sensitivity to bright light or loud noise. Note if the headache occurred near your period. List anything that might have triggered the headache, such as certain foods (chocolate, cheese, wine) or odors, smoke, bright light, stress, or lack of sleep. If your doctor has prescribed medicine for your migraines, take it at the first sign of a migraine.This can help stop the headache before it gets bad. Find healthy ways to deal with stress. Migraines are most common during or right after stressful times. Take time to relax before and after you do something that has caused a migraine in the past. Try to keep your muscles relaxed by keeping good posture. Check your jaw, face, neck, and shoulder muscles for tension, and try relaxing them. When sitting at a desk, change positions often, and stretch for 30 seconds each hour. Get regular sleep and exercise. Eat regular meals, and avoid foods and drinks that often trigger migraines. These include chocolate, alcohol (especially red wine and port), aspartame, monosodium glutamate (MSG), and some additives found in foods (such as hot dogs, fry, cold cuts, aged cheeses, and pickled foods). Limit caffeine by not drinking too much coffee, tea, or soda. But do not quit caffeine suddenly, because that can also give you migraines. Do not smoke or allow others to smoke around you. If you need help quitting, talk to your doctor about stop-smoking programs and medicines. These can increase your chances of quitting for good. If you are taking control pills or hormone therapy, talk to your doctor about whether they are triggering your migraines. When should you call for help? Call 911 anytime you think you may need emergency care. For example, call if: ?? You have signs of a stroke. These may include: ?? Sudden numbness, paralysis, or weakness in your face, arm, or leg, especially on only one side of your body. New problems with walking or balance. Sudden vision changes. Drooling or slurred speech. New problems speaking or understanding simple statements, or feeling confused. A sudden, severe headache that is different from past headaches. Call your doctor now or seek immediate medical care if: ?? You develop a fever and a stiff neck. You have new nausea and vomiting, or you cannot keep down food or liquids. Watch closely for changes in your health, and be sure to contact your doctor if: ?? Your headache has not gotten better within 1 or 2 days. Your headaches get worse or happen more often. Where can you learn more? Go to www.[employer].net/fahc Enter U690 in the search box to learn more about Migraine Headache: After Your Visit. ?? 2005 - 2008 [employer]. Care instructions adapted under license by [facility], [facility] . This care instruction is for use with your licensed healthcare professional. If you have questions about a medical condition or this instruction, always ask your healthcare professional. [employer] disclaims any warranty or liability for your [...] documented in this encounter ED Notes * Sharifa Howard RN - 12/31/2009 0053 EST Patient has IV fluid infusing as she is speaking on her cell phone. States,My lips are dry . Somenausea. * Mary Chauhan RN - 12/30/2009 7391 EST Pt states I am starting to feel sick again. C/o TORRES and nausea. Provider aware. * Christian Hightower - 12/30/2009 0464 EST DOS: 12/30/2009 Chief Complaint Patient presents with ??? Migraine Migraine started this morning, has been vomiting and cannot keep any fluids down. Patient is a 29 y.o. female presenting with migraine. The history is provided by the patient. Migraine This is a recurrent problem. The problem occurs constantly. The problem has been gradually worsening. The headache is associated with bright light and activity. The pain is located in the parietal region. The pain is at a severity of 8/10. The pain is moderate. The pain does not radiate. Associatedsymptoms include nausea and vomiting. Pertinent negatives include no anorexia, no fever, no malaise/fatigue, no chest pressure, no syncope and no shortness of breath. Review of Systems Constitutional: Negative for fever, chills and malaise/fatigue. HENT: Negative for neck stiffness. Eyes: Negative for visual disturbance. Respiratory: Negative for shortness of breath. Cardiovascular: Negative for chest pain and syncope. Gastrointestinal: Positive for nausea and vomiting. Negative for abdominal pain. Genitourinary: Negative for dysuria. Musculoskeletal: Negative for back pain. Skin: Negative for rash. Neurological: Positive for dizziness and headaches. Psychiatric/Behavioral: Negative for confusion. All other systems reviewed and are negative. Past Medical History Diagnosis Date ??? Anxiety ??? Asthma ??? Depression ??? Migraines No past surgical history on file. No Known Allergies History Substance Use Topics ??? Tobacco Use: Yes -- 0.2 packs/day ??? Alcohol Use: No No family history on file. BP 101/55 Pulse 96 Temp(Src) 36.2 ??C (97.2 ??F) (Oral) Resp 16 SpO2 99% LMP OB (KADE:04/12/10) Physical Exam Nursing note and vitals reviewed. Constitutional: She is oriented. She appears well-developed and well-nourished. HENT: Head: Normocephalic and atraumatic. Nose: Nose normal. Moderate photophobia Eyes: Extraocular motions are normal. Pupils are equal, round, and reactive to light. Right eye exhibits no discharge. Left eye exhibits no discharge. Neck: Normal range of motion. Neck supple. No tracheal deviation present. FROM neck, no meningmus Cardiovascular: Normal rate, regular rhythm and normal heart sounds. Pulmonary/Chest: Breath sounds normal. No respiratory distress. Musculoskeletal: Normal range of motion. Neurological: She is alert and oriented. She has normal strength and normal reflexes. No cranial nerve deficit or sensory deficit. Skin: No rash noted. Psychiatric: She has a normal mood and affect. Radiology orders: None Procedures ED Course: TORRES resolved, feels better after fluids, looks well. Will discharge home. Pt stable Discharge Prescriptions New Prescriptions No Discharge Prescriptions for this patient MDM Number of Diagnoses and Management Options Migraine: General comments: 4 Amount and/or Complexity of Data Reviewed Discussion of test results with the performing providers: no Decide to obtain previous medical records or to obtain history from someone other than the patient:no Obtain history from someone other than the patient: no Review and summarize past medical records: no Discuss the patient with other providers: no Independent visualization of images, tracings, or specimens: no Encounter Diagnoses Code Name Primary? Qualifier ??? 346.90A Migraine PCP: DECLAN BRANHAM MD 01/03/2010 6:29 PM ED Attending Available for Supervision: Moreno Fuentes * Karlos Alexandra RN - 12/30/20091954 EST Vomiting in triage. * Karlos Alexandra RN - 12/30/20091952 EST 6 months . documented in this encounter Miscellaneous Notes * Scanned Note-Null - Inpatient, Physician - 01/01/2010 1129 EST documented in this encounter Plan of Treatment Not on file documented as of this encounter Procedures Procedure Name Priority Date/Time Associated Diagnosis Comments GLUCOSE, GLUCOMETER Routine 12/31/2009 0 :42 EST COMPLETE BLOOD COUNT AND DIFFERENTIAL STAT 12/30/2009 23:45 EST documented in this encounter Results * GLUCOSE, GLUCOMETER (12/31/2009 0:42 EST) Glucose, Fingerstick 92 70 - 100 mg/dl [facility] Transit Planning Manager ID [id number] Test Performed by Nursing Services [facility] 12/31/2009 0:42 EST 12/31/2009 1:05 EST Provider Unknown CHEMISTRY & BLOOD GA S ORDERABLES [facility] [address] [place] [address] * (ABNORMAL) HEMAGRAM AND DIFFERENTIAL (12/30/2009 23:45 EST) Pathologist [facility] WBC 11.80 4.0 - 12.4 K/cmm [facility] RBC 3.01(L) 3.86 - 5.04 M/cmm [facility] Hemoglobin 9.4(L) 11.6 - 15.2 gm/dl [facility] HCT 27.1(L) 34.9 - 44.4 % [facility] MCV 90 81 - 98 fl [facility] MCH 31.2 26.7 - 33.3 pg [facility] MCHC 34.6 32.1 - 35.9 gm/dl [facility] PLT 159 141 - 320 K/cmm [facility] RDW-CV 13.7 11.7 - 14.6 % [facility] Neutrophils 75.4 45.5 - 79.7 % [facility] Lymphocytes 20.1 15.0 - 46.8 % [facility] Monocytes 2.6 1.8 - 12.0 % [facility] Eosinophils 1.1 0.6 - 6.9 % [facility] Basophils 0.8 0.2 - 1.4 % [facility] ABS Neutrophils 8.90(H) 2.20 - 8.85 K/cmm [facility] ABS Lymphs 2.38 1.09 - 3.30 K/cmm [facility] ABS Monocytes 0.30 0.1 - 0.8 K/cmm [facility] ABS Eosinophils 0.12 0.03 - 0.61 K/cmm [facility] ABS Basophils 0.09 0.01 - 0.11 K/cmm [facility] Type of Diff: Automated [facility] Blood specimen (specimen) 12/30/2009 23:45 EST 12/31/2009 1:07 EST Christian Hightower PA-C PACKAGES & DNA PROB E ORDERABLES Performing Organization Address City/State/[facility] Co de Phone Number [facility] [address] [place] [address] documented in this encounter Visit Diagnoses Diagnosis Migraine Migraine, unspecified, without mention of intractable migraine without mention of status migrainosus documented in this encounter Administered Medications Inactive Administered Medications - up to 3 most recent administrations Medication Order MAR Action Action Date Dose Rate Site hydrocodone-acetaminophen (LORTAB;VICODIN) 5-500 mg per tablet 2 Tab 2 Tablet, oral, NOW X1, 1 dose, On 12/31/09 at 0145, STAT Go-Pack Dispense 12/31/2009 1:47 EST 2 Tablets HYDROmorphone (PF) (DILAUDID) 1 mg/mL injection 1 mg 1 mg, intravenous, NOW X1, 1 dose, On 12/30/09 at 2300, STAT Given 12/30/2009 22:45 EST 1 mg ketorolac (TORADOL) injection 30 mg 30 mg, intravenous, NOW X1, 1 dose, On Sat12/30/09 at 2200, STAT Given 12/30/2009 21:53 EST 30 mg ondansetron (PF) (ZOFRAN) 4 mg/2 mL injection 4 mg 4 mg, intravenous, NOW X1, 1 dose, On 12/30/09 at 2200, STAT Given 12/30/2009 21:54 EST 4 mg ondansetron (PF) (ZOFRAN) 4 mg/2 mL injection 4 mg 4 mg, intravenous, NOW X1, 1 dose, On 12/31/09 at 0015, STAT Given 12/31/2009 1:01 EST 4 mg sodium chloride 0.9 % 1,000 mL BOLUS 1,000 mL, intravenous, Once (Without Time Specified), 1 dose, Starting on Sat12/30/09 at 2200, Until Sat12/30/09 at 2154, STAT Given 12/30/2009 21:54 EST 1,000 mL sodium chloride 0.9 % 1,000 mL BOLUS 1,000 mL, intravenous, Once (Without Time Specified), 1 dose, Starting on 12/30/09 at 2330, Until 12/30/09 at 2306, STAT Given 12/30/2009 23:06 EST 1,000 mL sodium chloride 0.9 % 1,000 mL BOLUS 1,000 mL, intravenous, Once (Without Time Specified), 1 dose, Starting on 12/31/09 at 0015, Until 12/31/09 at 0101, STAT Given 12/31/2009 1:01 EST 1,000 mL documented in this encounter Active and Recently Administered Medications Times are shown in EST. Scheduled Medication Order 12/29/2009 12/30/2009 12/31/2009 hydrocodone-acetaminophen (LORTAB;VICODIN) 5-500 mg per tablet 2 Tab (COMPLETED) 2 Tablet, oral, NOW X1, 1 dose, On 12/31/09 at 0145, STAT 0147 (Go-Pack Dispen se - Provider: Mary Chauhan RN) HYDROmorphone (PF) (DILAUDID) 1 mg/mL injection 1 mg (COMPLETED) 1 mg, intravenous, NOW X1, 1 dose, On 12/30/09 at 2300, STAT 2245 (Given - Provider: Alisha Watts RN) ketorolac (TORADOL) injection 30 mg (COMPLETED) 30 mg, intravenous, NOW X1, 1 dose, On 12/30/09 at 2200, STAT 2153 (Given - Provider: Alisha Watts RN) ondansetron (PF) (ZOFRAN) 4 mg/2 mL injection 4 mg (COMPLETED) 4 mg, intravenous, NOW X1, 1 dose, On 12/30/09 at 2200, STAT 2154 (Given - Provider: Alisha Watts RN) ondansetron (PF) (ZOFRAN) 4 mg/2 mL injection 4 mg (COMPLETED) 4 mg, intravenous, NOW X1, 1 dose, On 12/31/09 at 0015, STAT 0101 (Given - Provid er: Mary Chauhan RN) sodium chloride 0.9 % 1,000 mL BOLUS (COMPLETED) 1,000 mL, intravenous, Once (Without Time Specified), 1 dose, Starting on 12/30/09 at 2200, Until Sat12/30/09 at 2154, STAT 2154 (Given - Provider: Alisha Watts RN)2251 (Completed - Provider: Alisha Watts RN) sodium chloride 0.9 % 1,000 mL BOLUS (COMPLETED) 1,000 mL, intravenous, Once (Without Time Specified), 1 dose, Starting on 12/30/09 at 2330, Until 12/30/09 at 2306, STAT 2306 (Given - Provider: Alisha Watts RN)2347 (Completed - Provider: Mary Chauhan RN) sodium chloride 0.9 % 1,000 mL BOLUS (COMPLETED) 1,000 mL, intravenous, Once (Without Time Specified), 1 dose, Starting on 12/31/09 at 0015, Until 12/31/09 at 0101, STAT 0101 (Given - Provid er: Mary Chauhan RN)0147 (Completed - Provider: Mary Chauhan RN) documented in this encounter Care Teams Net Mender Relationship Specialty Start Date End Date Nicky Fernandez APRN PCP - General 12/30/09 01/01/10 documented as of this encounter
--- OUTSIDE RECORDS SUMMARY | 2024-07-02 18:55 | XMS_ITS | Encounter Summary ---
Author Organization [facility] Address [address] [place] [address] Care Team Providers Care Hardwood Floor Finisher Name Role Phone Betsy Perez MD Primary Care Provider [phone] Encounter Details Date Type Department Care Team (Latest Contact Info) Description 11/01/2009 16:37 EST - 11/01/2009 16:38 [facility] Hospital Encounter [facility] - Other [address] [place] [address] Benjamin Payne MD [address] [place] [address] Discharge Disposition: Home or Self Care Social [...] Associated Diagnosis Comments CHLAMYDIA/N. GONORRHOEAE AMPLIFIED NUCLEIC ACID Routine 11/12/2009 9:30 EST BACTERIAL CULTURE, URINE Routine 11/12/2009 9:30 EST documented in this encounter Results * BACTERIAL CULTURE, URINE (11/12/2009 9:30 EST) Specimen Description Urine [facility] Result 10,000 to 100,000 CFU/ml Mixed gram positive growth [facility] Report Status Final 11/13/2009 [facility] 11/12/2009 9:30 EST 11/12/2009 12:39 EST Benjamin Payne MD MICROBIOLOGY - GE NERAL ORDERABLES Performing Organization Address [facility] Co de Phone Number [facility] [address] [place] [address] * CHLAMYDIA/GC AMPLIFIED (11/12/2009 9:30 EST) Specimen Description Unknown [facility] Result No Chlamydia trachomatis DNA detected by director part mediated amplification. [facility] Result No Neisseria gonorrhoeae DNA detected by director part mediated amplification. [facility] 11/12/2009 9:30 EST 11/12/2009 12:39 EST Benjamin Payne MD MICROBIOLOGY - GE NERAL ORDERABLES Performing Organization Address [facility]/ZIP Co de Phone Number [facility] [address] [place] [address] documented in this encounter Visit Diagnoses Not on filedocumented in this encounter Care Teams Hardwood Floor Finisher Relationship Specialty Start Date End Date Betsy Perez MD [address] [place] [id number] PCP - General 08/08/09 12/29/09 documented as of this encounter
--- OUTSIDE RECORDS SUMMARY | 2024-07-02 18:55 | XMS_ITS | Encounter Summary ---
Author Organization [facility] Address [address] [place] [address] Care Team Providers Care Manager Competitive Intelligence Name Role Phone Betsy Perez MD Primary Care Provider [phone] Reason for Visit * Reason Comments Abdominal Pain Encounter Details Date Type Department Care Team (Late st Contact Info) Description 12/26/2009 20:00 EST - 12/26/2009 23:00 EST Hospital Encounter [facility] [address] [place], [place] [address] Beba Pinzon MD [address] [place] [phone] Discharge Disposition: Home or Self Care [...] Sign Reading Time Taken Comments Blood Pressure 117/57 12/26/2009 2240 EST Pulse 70 12/26/2009 2240 EST Temperature 36.1 ??C (97 ??F) 12/26/20095 EST Respiratory Rate 20 12/26/2009 2125 EST Oxygen Saturation - - Inhaled Oxygen Concentration - - Weight 115.2 kg (254 lb) 12/26/20092009 EST Height 179.1 cm (5' 10.5) 12/26/20092009 EST Body Mass Index 35.93 12/26/2009 2010 EST documented in this encounter Discharge Instructions * Discharge Instructions* Paco Tran - 12/26/2009 22:47 EST Discharge Instructions L&D Call your provider if: ?? Your water breaks There's any bright red bleeding Your are not feeling the baby move Severe headaches and/or blurry vision Contractions are closer together and/or stronger, or you are having constant pain Medications: ?? Continue any present medication Medication given: Rx for tylenol Activity: ?? Drink plenty of fluids and eat well As tolerated, lie on your left side while resting/napping Bedrest Extra rest until you feel better Call Provider's Office For: ?? Test results To schedule tests/or appointments PACO TRAN MD 12/26/2009 10:46 PM documented in this encounter Medications at Time of Discharge Medication Sig Dispensed Refills Start Date End Date albuterol (PROVENTIL HFA, VENTOLIN HFA) 90 mcg/Actuation inhaler Inhale 2 Puffs as directed every 4 hours. fluticasone-salmeterol (ADVAIR) 250-50 mcg/Dose diskus inhaler Inhale 1 Puff as directed every 12 hours. 04/25/2020 sertraline (ZOLOFT) 50 mg tablet Take 50 mg by mouth daily. 03/01/2010 documented as of this encounter Discharge Disposition Disposition Code Departure Means Destination Home or Self Care documented in this encounter Progress Notes * Ada Vázquez - 12/26/2009 2256 EST 2250- IV d/c'd. Discharge instructions given. Patient states understanding. * Ada Vázquez - 12/26/20098 EST 2235- UA results back. Dr Tran to bedside to discuss plan of care. Will give full 2L IVF bolus, then patient stable to be discharged to home to follow up with scheduled office appt tomorrow. * Ada Vázquez - 12/26/20092215 EST 2209- Patient OOB to BR, voided. Awaiting ua results. Difficulty keeping FHT's on CEFM due to maternal and movement and gestational age. * Ada Vázquez - 12/26/20092134 EST 2134- Plan of care discussed. * Ada Vázquez - 12/26/20092130 EST 2119- Dr Tran to bedside for evaluation. 2129- SVE long/closed/posterior. * Ada Vázquez - 12/26/20092039 EST 2029- IV started, lab work drawn, IVF bolus started. Patient requesting pain medication, has heating pad to lower back. Patient turned to right side in bed. * Ada Vázquez - 12/26/20091999 EST 1999- Patient admitted in to room 701 with complaints of sharp, stabbing pain in lower back on both sides radiating around to abdomen. Patient also c/o n/v with weight loss recently during the . Patient also c/o hot flashes and dizziness. Patient denies leaking fluid or vaginal bleeding. Patient voided, urine specimen and VS obtained, monitors on and explained, oriented to room and unit, call light in reach. Patient is alert, awake, abdomen soft, + FM, +1 swelling noted in hands and feet. Patient states pain 08/04. MD/JAMES notified of patient arrival. Ada Vázquez RN 12/26/2009 8:37 PM documented in this encounter Miscellaneous Notes * Scanned Note-Null - Inpatient, Physician - 12/29/2009 1227 EST * Scanned Note-Null - Inpatient, Physician - 12/27/2009 0926 EST * Scanned Note-Null - Inpatient, Physician - 12/27/2009 0926 EST documented in this encounter Plan of Treatment Not on file documented as of this encounter Procedures Procedure Name Priority Date/Time Associated Diagnosis Comments URINE CHEMICAL (DIP) & SEDIMENT (MICRO) WITHOUT REFLEX TO CULTURE STAT 12/26/2009 20:30 EST documented in this encounter Results * (ABNORMAL) UA WITH MICROSCOPIC (12/26/2009 20:30 EST) Color, UA Yellow [facility] Clarity, UA Hazy [facility] Glucose, UA Neg NEG [facility] Bilirubin, UA 1+(A) NEG [facility] Ketones, UA Neg NEG [facility] Specific Krebs, Urine >1.030 1.001 - 1.035 [facility] Blood, UA Neg NEG [facility] pH, UA 5.5 4.6 - 8.0 [facility] Protein, UA 1+(A) NEG [facility] Urobilinogen, UA 0.2 0.2 - 1.0 E.U./dl [facility] Nitrite, UA Neg NEG [facility] Leuk Esterase Trace(A) [facility]G [facility] WBC, UA 1 to 5 0 - 5 /HPF [facility] RBC, UA None seen 0 - 5 /HPF [facility] Squam Epithel, UA Many(A) NS /HPF [facility] Renal Epithel, UA None seen NS /HPF [facility] Bacteria, UA None seen NS /HPF [facility] Crystals, UA 10 to 30 /HPF [facility] Comment:Calcium Oxalate Hyaline Casts, UA None seen /LPF [facility] Comment Microscopic results are unreliable on urines unrefrig >2hrs or refrig >8hrs. [facility] Mucus, UA Present [facility] Refractometer SG,Urine 1.038(H) 1.001 - 1.035 [facility] Urine specimen (specimen) 12/26/2009 20:30 EST 12/26/2009 22:01 EST Paco Tran MD URINALYSIS ORDERABLE S [facility] [address] [place] [address] documented in this encounter Visit Diagnoses Not on filedocumented in this encounter Historical Medications * This list may reflect changes made after this encounter. Medication Sig Dispensed Refills Start Date End Date sertraline (ZOLOFT) 50 mg tablet Take 50 mg by mouth daily. 03/01/2010 added in this encounter Active and Recently Administered Medications Orders Medications Ordered That Sheng ht Not Have Been Administered Count Last Ordered Date First Ordered Date lactated ringers (LR) 2,000 mL BOLUS 1 11/2009 Diet Count Last Ordered Date First Orde red Date DIET REGULAR 1 12/26/2009 Nursing Count Last Ordered Date First Orde red Date MONITORING 1 12/26/2009 UP AD ELOINA 12/26/2009 Admission Count Last Ordered Date First Orde red Date ADMIT TO OUTPATIENT 1 12/26/2009 ADMITTING CONDITION 1 12/26/2009 NOTIFY PPS OF DISCHARGE COMPLETE 1 12/26/19 10 TEACHING SERVICE 1 12/26/2009 Discharge Count Last Ordered Date First Orde red Date DISCHARGE PATIENT 1 12/26/2009 documented in this encounter Care Teams Manager Competitive Intelligence Relationship Specialty Start Date End Date Betsy Perez MD [address] [place] [phone] PCP - General 08/08/09 12/29/09 documented as of this encounter
--- OUTSIDE RECORDS SUMMARY | 2024-07-02 18:55 | XMS_ITS | Encounter Summary ---
Author Organization [facility] Address [address] [place] [address] Care Team Providers Care Stretch Box Tender Name Role Phone Betsy Perez MD Primary Care Provider [phone] Reason for Visit * Reason Comments Abdominal Pain Encounter Details Date Type Department Care Team (Latest Contact Info) Description 03/01/2010 18:06 EDT - 03/01/2010 21:27 EDT Hospital Encounter [facility] [address] [place] [address] Benjamin Powers MD [address] [place] [address] Discharge Disposition: Home or Self Care Social [...] Sign Reading Time Taken Comments Blood Pressure 117/54 03/01/2010 1827 EDT Pulse 82 03/01/2010 1827 EDT Temperature 35.5 ??C (95.9 ??F) 03/01/2010 1827 EDT Respiratory Rate 20 03/01/2010 1827 EDT Oxygen Saturation - - Inhaled Oxygen Concentration - - Weight - - Height - - Body Mass Index - - documented in this encounter Discharge Instructions * Discharge Instructions* Monty Huntre MD - 03/01/2010 21:07 EDT Discharge Instructions L&D Call your provider if: ?? Your water breaks There's any bright red bleeding You are not feeling the baby move Severe headaches and/or blurry vision Contractions are closer together and/or stronger, or you are having constant pain Medications: ?? Continue any present medication Medication given: Clotrimazole 1% vaginal cream, insert 1 applicator per vagina qHS x 7 days Activity: ?? Drink plenty of fluids and eat well As tolerated, lie on your left side while resting/napping Extra rest until you feel better Call Provider's Office For: ?? Keep all scheduled appointments MONTY HUNTER MD 03/01/2010 9:05 PM documented in this encounter Medications at [...] Dispensed Refills Start Date End Da te clotrimazole (GYNE-LOTRIMIN) 1 % vaginal cream Place 1 Applicator vaginally at bedtime for 7 doses. 1 Tube 0 03/01/2010 03/08/2010 documented in this encounter Discharge Disposition Disposition Code Departure Means Destination Home or Self Care documented in this encounter Progress Notes * ElmerBenjamin monk - 03/01/2010 2339 EDT S:c/o N/V all day, myalgias, migratory abd pain, vaginal itching and discharge. No VB/ROM/Ctxns, + FM O:BP 117/54 Pulse 82 Temp 35.5 ??C (95.9 ??F) Resp 20 LMP OB (KADE:04/12/10) FHR reassuring, reactive TOCO: no ctxns Abd:gravid, essentially NT, Uterus soft and NT SSE: neg x 3, GANGA: pos hyphae per Dr Hunter CX: closed per Dr. Hunter U/A: straight cath negative except 1+ ketones s/p rehydration A:Gastroenteritis at 34w0d with dehydration (now resolved s/p 2 liters IVF), denies continued nausea s/p anti-emetic, no PTL, reassuring status, yeast vulvovaginitis P:clotrimazole 1%, 1 applicator per vagina QHS x 7 days, f/u office next week or sooner prn. * Lucrecia Calles RN - 03/01/20102119 EDT Instructions reviewed with pt, medication instructions provided. Pt DCd to home with taxi voucher. * Lucrecia Calles RN - 03/01/20102043 EDT Pt I&O cathed to obtain clean urine specimen. * Lucrecia Calles RN - 03/01/20102004 EDT At pts request cont EFM and TOCO DCd as per MD Powers. * Deedee Metcalf RN - 03/01/20101919 EDT 1918 report to tracy huff, plan pending lab results * Lucrecia Calles RN - 03/01/2010 1920 EDT MD Hunter in for SSE. * Deedee Metcalf RN - 03/01/2010 1837 EDT 1820 pt here to eval abd pain and had ack, pt reports stated at 0430-crampi, pressure, dizzy, n/v x7, ho asthma, migraines, dr hunter informed of pt, documented in this encounter Miscellaneous Notes * Scanned Note-Null - Inpatient, Physician - 03/04/2010 1106 EDT * Scanned Note-Null - Inpatient, Physician - 03/02/2010 0730 EDT * Scanned Note-Null - Inpatient, Physician - 03/02/2010 0730 EDT documented in this encounter Plan of Treatment Not on file documented as of this encounter Procedures Procedure Name Priority Date/Time Associated Diagnosis Comments URINALYSIS WITH MICROSCOPIC IF POSITIVE STAT 03/01/2010 20:45 EDT UA REFLEX Routine 03/01/2010 20:45 EDT URINE CULTURE IF POSITIVE Routine 03/01/2010 20:45 EDT HOLD BLUE TOP Routine 03/01/2010 19:35 EDT COMPLETE BLOOD COUNT AND DIFFERENTIAL STAT 03/01/2010 19:35 EDT BLOOD BANK HOLD STAT 03/01/2010 19:35 EDT C REACTIVE PROTEIN STAT 03/01/2010 19 :35 EDT BUN STAT 03/01/2010 19:35 EDT ALT STAT 03/01/2010 19:35 EDT AST STAT 03/01/2010 19:35 EDT CREATININE STAT 03/01/2010 19:35 EDT ELECTROLYTES STAT 03/01/2010 19:35 EDT CHLAMYDIA/N. GONORRHOEAE AMPLIFIED NUCLEIC ACID Routine 03/01/2010 19:30 EDT GROUP B STREP PCR Routine 03/01/2010 19: 29 EDT URINE MICROSCOPIC Routine 03/01/2010 19: 29 EDT URINALYSIS WITH MICROSCOPIC IF POSITIVE STAT 03/01/2010 19:29 EDT URINE CULTURE IF POSITIVE Routine 03/01/2010 19:29 EDT BACTERIAL CULTURE, URINE Routine 03/01/2010 19:29 EDT documented in this encounter Results * UA REFLEX (03/01/2010 20:45 EDT) UA Billing Microscopic not indicated. [facility] 03/01/2010 20:4 5 EDT 03/01/2010 20:51 EDT Monty Hunter MD URINALYSIS ORDERABL ES [facility] [address] [place] [address] * CULTURE IF UA POSITIVE (03/01/2010 20:45 EDT) Culture if Indicated Culture not indicated by urinalysis results. [facility] Urine specimen (specimen) 03/01/2010 20:45 EDT 03/01/2010 20:51 EDT Monty Hunter MD MICROBIOLOGY - GENE RAL ORDERABLES Performing Organization Address [facility] de Phone Number [facility] [address] [place] [address] * (ABNORMAL) URINALYSIS (03/01/2010 20:45 EDT) Color, UA Yellow [facility] Clarity, UA Clear [facility] Glucose, UA Neg NEG [facility] Bilirubin, UA Neg NEG [facility] Ketones, UA 1+(A) NEG [facility] Specific [place], Urine 1.010 1.001 - 1.035 [facility] Blood, UA Neg NEG [facility] pH, UA 7.0 4.6 - 8.0 [facility] Protein, UA Neg NEG [facility] Urobilinogen, UA 0.2 0.2 - 1.0 E.U./dl [facility] Nitrite, UA Neg NEG [facility] Leuk Esterase Neg NEG [facility] Urine specimen (specimen) 03/01/2010 20:45 EDT 03/01/2010 20:51 EDT Monty Hunter MD URINALYSIS ORDERABL ES Performing Organization Address [facility] de Phone Number [facility] [address] [place] [address] * HOLD BLUE TOP (03/01/2010 19:35 EDT) Hold Blue Top Sample for coagulation will be discarded after 4 hours [facility] 03/01/2010 19:3 5 EDT 03/01/2010 20:04 EDT Monty Hunter MD LAB INFO SERVICE AN D SUPPORT & PHONE RESULT Performing Organization Address [facility] Co de Phone Number [facility] [address] [place] [address] * ELECTROLYTES (03/01/2010 19:35 EDT) Sodium 136 136 - 145 mEq/L [facility] Potassium 4.0 3.5 - 5.0 mEq/L [facility] Chloride 103 96 - 110 mEq/L [facility] CO2 27 24 - 32 mEq/L [facility] Blood specimen (specimen) 03/01/2010 19:35 EDT 03/01/2010 20:04 EDT Monty Hunter MD CHEMISTRY & BLOOD G ORDERABLES Performing Organization Address City/[facility] Co de Phone Number [facility] [address] [place] [address] * BLOOD BANK SPECIMEN HOLD (03/01/2010 19:35 EDT) Hold BB Spec will exp at 23:59, 3 days from collect date [facility] Comment:SAMPLE EXPIRES ON AT 23:59 Blood specimen (specimen) 03/01/2010 19:35 EDT 03/01/2010 19:35 EDT Monty Hunter MD BLOOD BANK TESTS Performing Organization Address [facility] de Phone Number [facility] [address] [place] [address] * (ABNORMAL) CREATININE (03/01/2010 19:35 EDT) Creatinine 0.60(L) 0.7 - 1.5 mg/dl [facility] GFR, Calculated >60 ml/min/1.7 3m2 [facility] Blood specimen (specimen) 03/01/2010 19:35 EDT 03/01/2010 20:04 EDT Monty Hunter MD CHEMISTRY & BLOOD G ORDERABLES Performing Organization Address [facility] Co de Phone Number [facility] [address] [place] [address] * (ABNORMAL) BUN (03/01/2010 19:35 EDT) BUN 6(L) 10 - 26 mg/dl [facility] Blood specimen (specimen) 03/01/2010 19:35 EDT 03/01/2010 20:04 EDT Monty Hunter MD CHEMISTRY & BLOOD G ORDERABLES Performing Organization Address [facility] Co de Phone Number [facility] [address] [place] [address] * ALT (03/01/2010 19:35 EDT) ALT <11 9 - 52 U/L [facility] Blood specimen (specimen) 03/01/2010 19:35 EDT 03/01/2010 20:04 EDT Monty Hunter MD CHEMISTRY & BLOOD G ORDERABLES Performing Organization Address [facility] Phone Number [facility] [address] [place] [address] * AST (03/01/2010 19:35 EDT) AST 18 15 - 46 U/L [facility] Blood specimen (specimen) 03/01/2010 19:35 EDT 03/01/2010 20:04 EDT Monty Hunter MD CHEMISTRY & BLOOD G ORDERABLES Performing Organization Address [facility] Phone Number [facility] [address] [place] [address] * (ABNORMAL) C-REACTIVE PROTEIN (03/01/2010 19:35 EDT) C-Reactive Protein 1.7(H) <1.0 mg/dl [facility] Blood specimen (specimen) 03/01/2010 19:35 EDT 03/01/2010 20:04 EDT Monty Hunter MD CHEMISTRY & BLOOD G ORDERABLES Performing Organization Address [facility] Phone Number [facility] [address] [place] [address] * (ABNORMAL) HEMAGRAM AND DIFFERENTIAL (03/01/2010 19:35 EDT) WBC 13.33(H) 4.0 - 12.4 K/cmm [facility] RBC 3.79(L) 3.86 - 5.04 M/cmm [facility] Hemoglobin 11.8 11.6 - 15.2 gm/dl [facility] HCT 33.9(L) 34.9 - 44.4 % [facility] MCV 89 81 - [address] [facility] MCH 31.1 26.7 - 33.[address] [facility] MCHC 34.8 32.1 - 35.9 gm/dl [facility] PLT 259 141 - 320 K/cmm [facility] RDW-CV 13.9 11.7 - 14.6 % [facility] Neutrophils 84.0(H) 45.5 - 79.7 % [facility] Lymphocytes 13.0(L) 15.0 - 46.8 % [facility] Monocytes 3.0 1.8 - 12.0 % [facility] ABS Neutrophils 11.20(H) 2.20 - 8.85 K/cmm [facility] ABS Lymphs 1.73 1.09 - 3.30 K/cmm [facility] ABS Monocytes 0.40 0.1 - 0.8 K/cmm [facility] RBC Morphology [facility] Type of Diff: Manual [facility] Blood specimen (specimen) 03/01/2010 19:35 EDT 03/01/2010 20:04 EDT Monty Hunter MD PACKAGES & DNA PROB E ORDERABLES [facility] [address] [place] [address] * CHLAMYDIA/GC AMPLIFIED (03/01/2010 19:30 EDT) Specimen Description Unknown [facility] Chlamydia Result No Chlamydia trachomatis DNA detected by drier and pulverizer tender mediated amplification. [facility] GC Result No Neisseria gonorrhoeae DNA detected by drier and pulverizer tender mediated amplification. [facility] 03/01/2010 19:3 0 EDT 03/01/2010 21:45 EDT Benjamin Powers MD MICROBIOLOGY - GE NERAL ORDERABLES Performing Organization Address City/[facility]/ZIP Co de Phone Number [facility] [address] [place] [address] * BACTERIAL CULTURE, URINE (03/01/2010 19:29 EDT) Specimen Description Urine [facility] Result Cancelled by Physician/Clarice sing Unit Credit Issued [facility] Report Status Final 03/01/2010 [facility] 03/01/2010 19:2 9 EDT 03/01/2010 20:31 EDT Benjamin Powers MD MICROBIOLOGY - GE NERAL ORDERABLES Performing Organization Address [facility] Co de Phone Number [facility] [address] [place] [address] * (ABNORMAL) URINE MICROSCOPIC (03/01/2010 19:29 EDT) WBC, UA 10 to 50 0 - 5 /HPF [facility] RBC, UA less than 1 0 - 5 /HPF [facility] Squam Epithel, UA Innum(A) NS /HPF [facility] Renal Epithel, UA None seen NS /HPF [facility] Bacteria, UA None seen NS /HPF [facility] Crystals, UA None seen /HPF [facility] Hyaline Casts, UA Rare Hyaline /LPF [facility] UA Comment Microscopic results are unreliable on urines unrefrig >2hrs or refrig >8hrs. [facility] Mucus, UA Present [facility] 03/01/2010 19:2 9 EDT 03/01/2010 20:02 EDT Monty Hunter MD URINALYSIS ORDERABL ES Performing Organization Address City/[facility]/ZIP Co de Phone Number [facility] [address] [place] [address] * GROUP B STREPTOCOCCUS MOLECULAR DETECTION (03/01/2010 19:29 EDT) Specimen Description Vaginal and Rectal [facility] Result No Group B beta streptococcal DNA detected by PCR. [facility] Report Status Final 03/02/2010 [facility] Specimen of unknown material (specimen) 03/01/2010 19:29 EDT 03/01/2010 21:00 EDT Monty Hunter MD MICROBIOLOGY - GENE [facility] ORDERABLES Performing Organization Address [facility] de Phone Number [facility] [address] [place] [address] * CULTURE IF UA POSITIVE (03/01/2010 19:29 EDT) Pathologist [facility] Culture if Indicated Culture indicated by urinalysis results. [facility] Urine specimen (specimen) 03/01/2010 19:29 EDT 03/01/2010 20:02 EDT Monty Hunter MD MICROBIOLOGY - GENE RAL ORDERABLES Performing Organization Address [facility] de Phone Number [facility] [address] [place] [address] * (ABNORMAL) URINALYSIS (03/01/2010 19:29 EDT) Color, UA Yellow [facility] Clarity, UA Hazy [facility] Glucose, UA Neg NEG [facility] Bilirubin, UA 2+(A) NEG [facility] Ketones, UA 1+(A) NEG [facility] Specific [place], Urine 1.025 1.001 - 1.035 [facility] Blood, UA Neg NEG [facility] pH, UA 7.0 4.6 - 8.0 [facility] Protein, UA 2+(A) NEG [facility] Urobilinogen, UA 1.0 0.2 - 1.0 E.U./dl [facility] Nitrite, UA Neg NEG [facility] Leuk Esterase 2+(A) NEG [facility] Urine specimen (specimen) 03/01/2010 19:29 EDT 03/01/2010 20:02 EDT Monty Hunter MD URINALYSIS ORDERABL ES [facility] [address] [place] [address] documented in this encounter Visit Diagnoses Not on filedocumented in this encounter Administered Medications Inactive Administered Medications - up to 3 most recent administrations Medication Order MAR Action Action Date Dose Rate Site lactated ringers (LR) 500 mL BOLUS 500 mL, intravenous, PRN, Starting on Sat03/01/10 at 1852, Until Sat03/01/10 at 2328, Other, per nursing discretion, Routine Given 03/01/2010 20:20 EDT 500 mL Given 03/01/2010 20:00 EDT 500 mL Given 03/01/2010 19:45 EDT 500 mL ondansetron (PF) (ZOFRAN) 4 mg/2 mL injection 2-4 mg 2-4 mg, intravenous, EVERY 4 HOURS PRN, Starting on Sat03/01/10 at 1852, Until Sat03/01/10 at 2328, Nausea, Vomiting, Routine Given 03/01/2010 19:50 EDT 4 mg prochlorperazine (COMPAZINE) injection 10 mg 10 mg, intravenous, EVERY 6 HOURS PRN, Starting on Sat03/01/10 at 1852, Until Sat03/01/10 at 2328, Nausea, Routine Given 03/01/2010 19:45 EDT 10 mg documented in this encounter Discontinued Medications Medication Sig Discontinue Reason Start Date End Da te ondansetron (ZOFRAN-ODT) 4 mg disintegrating tablet Take 1 Tab by mouth every 4 hours as needed for Nausea. Patient Stopped Taking 01/08/2010 03/01/2010 promethazine (PHENERGAN) 25 mg tablet Take 1 Tab by mouth daily. Patient Stopped Taking 02/10/2010 03/01/2010 sertraline (ZOLOFT) 50 mg tablet Take 50 mg by mouth daily. Patient Stopped Taking 03/01/2010 documented as of this encounter Active and Recently Administered Medications Times are shown in EDT. Scheduled Medication Order 02/27/2010 02/28/2010 03/01/2010 clotrimazole (GYNE-LOTRIMIN) 1 % vaginal cream 1 Applicator 1 Applicator, vaginal, AT BEDTIME, 7 doses, First dose on Sat03/01/10 at 2115, Last dose on Sat03/07/10 at 2100, STAT PRN Medication Order 02/27/2010 02/28/2010 03/01/2010 lactated ringers (LR) 500 mL BOLUS (CANCELED) 500 mL, intravenous, PRN, Starting on Sat03/01/10 at 1852, Until Sat03/01/10 at 2328, Other, per nursing discretion, Routine 1936 (Given - Provid er: Lucrecia Calles, ARVIND)194 (Given - Provider: Lucrecia Calles, ARVIND)1999 (Given - Provider: Lucrecia Calles, ARVIND)2019 (Given - Provider: Lucrecia Calles, ARVIND) ondansetron (PF) (ZOFRAN) 4 mg/2 mL injection 2-4 mg (CANCELED) 2-4 mg, intravenous, EVERY 4 HOURS PRN, Starting on Sat03/01/10 at 1852, Until Sat03/01/10 at 2328, Nausea, Vomiting, Routine 1950 (Given - Provid er: Lucrecia Calles, ARVIND) prochlorperazine (COMPAZINE) injection 10 mg (CANCELED) 10 mg, intravenous, EVERY 6 HOURS PRN, Starting on Sat03/01/10 at 1852, Until Sat03/01/10 at 2328, Nausea, Routine 1945 (Given - Provid er: Lucrecia Calles, ARVIND) documented in this encounter Orders Medications Ordered That Sheng ht Not Have Been Administered Count Last Ordered Date First Ordered Date clotrimazole (GYNE-LOTRIMIN) 1 % vaginal cream 1 Applicator 1 03/01/2010 Sodium Citrate (CITRA PH) solution 30 mL 1 03/01/2010 Diet Count Last Ordered Date First Orde red Date DIET REGULAR 1 03/01/2010 Nursing Count Last Ordered Date First Orde red Date APPLY HEAT TO AFFECTED AREA 1 03/01/2010 MONITOR HEART TONES 1 03/01/2010 UP AD ELOINA 03/01/2010 Admission Count Last Ordered Date First Orde red Date ADMIT TO OUTPATIENT 1 03/01/2010 ADMITTING CONDITION 1 03/01/2010 TEACHING SERVICE 1 03/01/2010 Discharge Count Last Ordered Date First Orde red Date DISCHARGE PATIENT 1 03/01/2010 documented in this encounter Care Teams Stretch Box Tender Relationship Specialty Start Date End Date Betsy Perez MD [address] [place] [phone] PCP - General 01/09/10 09/16/11 documented as of this encounter
--- OUTSIDE RECORDS SUMMARY | 2024-07-02 18:55 | XMS_ITS | Encounter Summary ---
Author Organization [facility] Address [address] [place] [address] Care Team Providers Care Metal Die Finisher Name Role Phone Betsy Perez MD Primary Care Provider [phone] Encounter Details Date Type Department Care Team (Late st Contact Info) Description 02/10/2010 Results Only [facility] Laboratory Services - [facility] ([facility] [address] [place] [address] [id number] James Barrett MD [address] [facility], [address] [place] [address] Social History Tobacco Use Types [...] Procedure Name Priority Date/Time Associated Diagnosis Comments GLUCOSE TOLERANCE, 3HR GESTATIONAL Routine 02/10/2010 12:44 EDT documented in this encounter Results * GLUCOSE TOLERANCE, 3HR GESTATIONAL (02/10/2010 12:44 EDT) Glucose Dose 100 g [facility] Gest Gluc Sergio, 3hr 51 50 - 140 mg/dl [facility] Comment: The diagnosis of diabetes is made if two or more of the glucose values exceed the reference range listed. Glucose Sergio, Fasting 71 50 - 95 mg/dl [facility] Glucose Sergio, 2hr 94 50 - 155 mg/dl [facility] Glucose Sergio, 1 hr 117 50 - 180 mg/dl [facility] Blood specimen (specimen) 02/10/2010 12:44 EDT 02/10/2010 12:45 EDT James Barrett MD PACKAGES & DNA PRO BE ORDERABLES [facility] [address] [place] [address] documented in this encounter Visit Diagnoses Not on filedocumented in this encounter Care Teams Metal Die Finisher Relationship Specialty Start Date End Date Betsy Perez MD [address] [place] [phone] PCP - General 01/09/10 09/16/11 documented as of this encounter
--- OUTSIDE RECORDS SUMMARY | 2024-07-02 18:55 | XMS_ITS | Encounter Summary ---
Author Organization [facility] Address [address] [place] [address] Care Team Providers Care Svp Digital Ad Sales Name Role Phone Betsy Perez MD Primary Care Provider [phone] Reason for Visit * Reason Comments Cough pt states when asked what brings her to the er? she states im sick Nasal Congestion Encounter Details Date Type Department Care Team (Late st Contact Info) Description 10/03/2009 19:25 EST - 10/03/2009 23:33 EST Emergency [facility] Emergency Department - [address], [place] [address] Nabor Yuen PA [facility] [address] [place], [place] [id number] Emergency, MD Madina Viral Upper Respiratory Infection; Sinusitis Acute Discharge Disposition: Home or Self Care Social [...] Sign Reading Time Taken Comments Blood Pressure 143/69 10/03/20091928 EST Pulse 106 10/03/20091928 EST Temperature 36.3 ??C (97.3 ??F) 10/03/20091928 EST Respiratory Rate 22 10/03/2009 1929 EST Oxygen Saturation 99% 10/03/20091928 EST Inhaled Oxygen Concentration - - Weight - - Height - - Body Mass Index - - documented in this encounter Discharge Instructions * Discharge Instructions* Nabor Lambert PA - 10/03/2009 21:57 EST Take Tamiflu tomorrow, take it twice a day until you get your results tomorrow. You can call [phone] at about 2 or 3 pm for your results. If you test negative STOP taking the Tamiflu. If you test positive, you will take it twice a day for 5 days. It is important that your follow up with your [facility] tomorrow and let them know that you are being treated and were swabbed today. Take amoxicillin for the next 10 days for you sinus infection. Take tylenol as needed for fever or muscle aches. Use albuterol 2 puff every 4 hours as needed for chest tightness/wheezing. It is important that if you develop increased shortness of breath, chest pains, or painful breathing, wheezing not resolved by your inhaler, increased sputum production, you are unable to keep fluidsdown, have fever over 103 or uncontrolled by tylenol, severe fatigue, develop abdominal pain, or any of you symptoms get any worse RETURN TO THE EMERGENCY DEPARTMENT IMMEDIATELY for re-assessment. * Attachments The following attachments cannot be sent through Care Everywhere. * SINUSITIS IN ADULTS: AFTER YOUR VISIT ([facility]) * UPPER RESPIRATORY INFECTION: AFTER YOUR VISIT TO THE EMERGENCY ROOM ([facility]) documented in this encounter Medications at Time [...] 10/03/2009 10/27/2009 documented as of this encounter Ordered Prescriptions Prescription Sig Dispensed Refills Start Date End Da te amoxicillin (AMOXIL) 500 mg capsule Take 2 Caps by mouth every 12 hours. 18 Cap 0 10/03/2009 10/27/2009 oseltamivir (TAMIFLU) 75 mg capsule Take 1 Cap by mouth 2 times daily. 8 Cap 0 10/03/2009 10/27/2009 documented in this encounter Discharge Disposition Disposition Code Departure Means Destination Home or Self Care documented in this encounter ED Notes * Nabor Lambert PA - 10/03/20092121 EST DOS: 10/03/2009 Chief Complaint Patient presents with ??? Cough pt states when asked what brings her to the er? she states im sick ??? Nasal Congestion HPI Comments: 28 y/o female, 13 weeks , with history of asthma presents with cough, sore throat, sinus pressure, congestion and post-nasal drip x 4 days. [place] feverish 4 days ago, did not take temperature at home, has not felt feverish since. Afebrile at presentation. No chills. Cough is non-productive, no SOB, wheezing, chest pain, pleurisy, or WONG. She has had purulent nasal discharge x 3days with increasing sinus pain/pressure. Patient is a 28 y.o. female presenting with cough and nasal congestion. The history is provided by the patient. Cough This is a new problem. The current episode started more than 2 days ago. The problem occurs constantly. The problem has not changed since onset. The cough is non-productive. The fever has been present for less than 1 day. Associated symptoms include ear congestion, ear pain, rhinorrhea and sore throat. Pertinent negatives include no chest pain, no chills, no sweats, no weight loss, no headaches, no myalgias, no shortness of breath, no wheezing and no eye redness. She has tried nothing for the symptoms. She is a smoker (prior to , yes). Her past medical history is significant for asthma. Nasal Congestion The current episode started more than 2 days ago. The problem has been gradually worsening. Associated symptoms include nausea (per norm or her pregnanacy), vomiting (per norm of her pragnancy), congestion, ear pain, plugged ear sensation, rhinorrhea, sinus pain, sneezing, sore throat, swollen glands and cough. Pertinent negatives include no chest pain, no abdominal pain, no diarrhea, no dysuria,no headaches, no joint pain, no joint swelling, no neck pain, no rash and no wheezing. Treatments Tried: tylenol. Review of Systems Constitutional: Positive for appetite change and fatigue. Negative for fever, chills, weight loss, diaphoresis and activity change. HENT: Positive for ear pain, congestion, sore throat, rhinorrhea, sneezing, postnasal drip and sinus pressure. Negative for hearing loss, nosebleeds, facial swelling, trouble swallowing, neck pain, neck stiffness, voice change, tinnitus and ear discharge. Eyes: Negative for redness and visual disturbance. Respiratory: Positive for cough. Negative for apnea, choking, chest tightness, shortness of breath and wheezing. Cardiovascular: Negative for chest pain. Gastrointestinal: Positive for nausea (per norm or her pregnanacy) and vomiting (per norm of her pragnancy). Negative for abdominal pain and diarrhea. Genitourinary: Negative for dysuria, urgency and frequency. Musculoskeletal: Negative for myalgias, joint pain and gait problem. Skin: Negative for rash and color change. Neurological: Negative for dizziness, weakness, light-headedness and headaches. Psychiatric/Behavioral: Negative for confusion. Past Medical History Diagnosis Date ??? Anxiety ??? Asthma ??? Depression No past surgical history on file. No Known Allergies History Substance Use Topics ??? Tobacco Use: Yes -- 0.2 packs/day ??? Alcohol Use: No No family history on file. BP 143/69 Pulse 106 Temp(Src) 36.3 ??C (97.3 ??F) (Tympanic) Resp 22 SpO2 99% Physical Exam Nursing note and vitals reviewed. Constitutional: She appears well-developed and well-nourished. She appears not diaphoretic. HENT: Head: Normocephalic and atraumatic. Right Ear: Hearing normal. No drainage. No mastoid tenderness. Tympanic membrane is bulging. Tympanic membrane is not injected and not erythematous. Left Ear: Hearing normal. No drainage. No mastoid tenderness. Tympanic membrane is bulging. Tympanic membrane is not injected and not erythematous. Nose: Mucosal edema and rhinorrhea present. Right sinus exhibits maxillary sinus tenderness and frontal sinus tenderness. Left sinus exhibits frontal sinus tenderness. Left sinus exhibits no maxillary sinus tenderness. Mouth/Throat: Uvula is midline and mucous membranes are normal. Mucous membranes are not dry. Posterior oropharyngeal erythema (post nasal drip noted with cobblestoning) present. No oropharyngeal exudate, posterior oropharyngeal edema or tonsillar abscesses. Eyes: Conjunctivae and extraocular motions are normal. Neck: Trachea normal, normal range of motion and full passive range of motion without pain. Neck supple. No spinous process tenderness and no muscular tenderness present. Cardiovascular: Regular rhythm. Tachycardia present. Exam reveals no gallop. No murmur heard. Pulmonary/Chest: Effort normal and breath sounds normal. She has no decreased breath sounds. She has no wheezes. She has no rhonchi. She has no rales. Abdominal: Soft. Normal appearance and bowel sounds are normal. No tenderness. Musculoskeletal: Normal range of motion. Lymphadenopathy: She has cervical adenopathy. Right cervical: Superficial cervical adenopathy present. No deep cervical and no posterior cervicaladenopathy present. Left cervical: Superficial cervical adenopathy present. No deep cervical and no posterior cervical adenopathy present. Neurological: She is alert. She is not disoriented. Skin: Skin is warm and dry. She is not diaphoretic. Psychiatric: She has a normal mood and affect. Radiology orders: None Procedures ED Course: Spoke with OB resident , patient afebrile, sat 99%, non-toxic appearing. Tolerating PO in ED (2 juices and large cup of water). Has follow up tomorrow with OB. Will treat and swab patient. Will treat sinus infection, and give new albuterol inhaler. Gave patient number to call for results, we will call if positive. Patient to stop Tamiflu if test negative, understands risks of Tamiflu vs possible H1N1 infection. To follow up with OB tomorrow. Reviewed reasons for emergent return at length. Discharge Prescriptions New Prescriptions AMOXICILLIN (AMOXIL) 500 MG CAPSULE Take 2 Caps by mouth every 12 hours. OSELTAMIVIR (TAMIFLU) 75 MG CAPSULE Take 1 Cap by mouth 2 times daily. MDM Number of Diagnoses and Management Options Sinusitis Acute: Viral Upper Respiratory Infection: Amount and/or Complexity of Data Reviewed Discuss the patient with other providers: yes (OBGYN resident ) Encounter Diagnoses Code Name Primary? Qualifier ??? 465.9V Viral Upper Respiratory Infection Plan: VIROLOGY DETECTION, VIROLOGY DETECTION ??? 461.9N Sinusitis Acute PCP: BETSY PEREZ MD 10/04/2009 8:32 PM ED Attending Available for Supervision: Carl Paulino documented in this encounter Miscellaneous Notes * Scanned Note-Null - Inpatient, Physician - 10/05/2009 0946 EST documented in this encounter Plan of Treatment Not on file documented as of this encounter Procedures Procedure Name Priority Date/Time Associated Diagnosis Comments VIROLOGY DETECTION Routine 10/03/2009 23 :32 EST Viral Upper Respiratory Infection documented in this encounter Results * VIROLOGY DETECTION (10/03/2009 23:32 EST) Specimen Description Throat [facility] Result No RSV, Influenza A, or Influenza B detected by PCR. [facility] Report Status Final 10/04/2009 [facility] 10/03/2009 23:3 2 EST 10/03/2009 23:58 EST Nabor CUE[facility]AS MICROBIOLOGY - GENER AL ORDERABLES Performing Organization Address City/State/[facility] Co de Phone Number [facility] [address] [place] [address] documented in this encounter Visit Diagnoses Diagnosis Viral upper respiratory infection Acute upper respiratory infections of unspecified site Sinusitis acute Acute sinusitis, unspecified documented in this encounter Administered Medications Inactive Administered Medications - up to 3 most recent administrations Medication Order MAR Action Action Date Dose Rate Site albuterol (PROVENTIL HFA, VENTOLIN HFA) inhaler 2 Puff 2 Puff, inhalation, EVERY 4 HOURS PRN, Starting on 10/03/09 at 2144, Until 10/04/09 at 0133, Wheezing, STAT Given 10/03/2009 21:53 EST 2 Puffs oseltamivir (TAMIFLU) capsule Starter Pack 1 Package 1 Package, oral, Once (Without Time Specified), 1 dose, Starting on Sat10/03/09 at 2141, Until Sat10/03/09 at 1700, STAT Given 10/03/2009 17:00 EST 1 Package documented in this encounter Active and Recently Administered Medications Times are shown in EST. Scheduled Medication Order 10/01/2009 10/02/2009 10/03/2009 oseltamivir (TAMIFLU) capsule Starter Pack 1 Package (COMPLETED) 1 Package, oral, Once (Without Time Specified), 1 dose, Starting on Sat10/03/09 at 2141, Until Sat10/03/09 at 1700, STAT 1700 (Given - Provid er: [facility]) PRN Medication Order 10/01/2009 10/02/2009 10/03/2009 albuterol (PROVENTIL HFA, VENTOLIN HFA) inhaler 2 Puff (CANCELED) 2 Puff, inhalation, EVERY 4 HOURS PRN, Starting on Sat10/03/09 at 2144, Until Tu10/04/09 at 0133, Wheezing, STAT 2153 (Given - Provid er: [facility]) documented in this encounter Orders Medications Ordered That Sheng ht Not Have Been Administered Count Last Ordered Date First Ordered Date amoxicillin (AMOXIL) capsule 1,000 mg 1 07/2009 Isolation Count Last Ordered Date First Orde red Date ENHANCED PRECAUTIONS 1 10/03/2009 documented in this encounter Care Teams Svp Digital Ad Sales Relationship Specialty Start Date End Date Betsy Perez MD [address] [place] [id number] PCP - General 08/08/09 12/29/09 documented as of this encounter
--- OUTSIDE RECORDS SUMMARY | 2024-07-02 18:55 | XMS_ITS | Encounter Summary ---
Author Organization [facility] Address [address] [place] [address] Care Team Providers Care Director Economic Name Role Phone Betsy Perez MD Primary Care Provider [phone] Encounter Details Date Type Department Care Team (Latest Contact Info) Description 09/13/2009 14:51 EDT - 09/13/2009 14:53 EDT Hospital Encounter [facility] - Other [address] [place] [address] Mckayla Hodgson NP Discharge Disposition: Home or Self Care Social [...] Comments CHLAMYDIA/N. GONORRHOEAE AMPLIFIED NUCLEIC ACID Routine 10/04/2009 18:51 EST documented in this encounter Results * CHLAMYDIA/GC AMPLIFIED (10/04/2009 18:51 EST) Specimen Description Cervix [facility] Result No Chlamydia trachomatis DNA detected by breakfast host mediated amplification. [facility] Result No Neisseria gonorrhoeae DNA detected by breakfast host mediated amplification. [facility] 10/04/2009 18:5 1 EST 10/04/2009 18:51 EST James Barrett MD MICROBIOLOGY - GEN ERAL ORDERABLES Performing Organization Address City/State/[facility] Co de Phone Number [facility] [address] [place] [address] documented in this encounter Visit Diagnoses Not on filedocumented in this encounter Care Teams Director Economic Relationship Specialty Start Date End Date Betsy Perez MD [address] [place] [id number] PCP - General 08/08/09 12/29/09 documented as of this encounter
--- OUTSIDE RECORDS SUMMARY | 2024-07-02 18:55 | XMS_ITS | Encounter Summary ---
Author Organization [facility] Address [address] [place] [address] Care Team Providers Care Sap Data Analyst Name Role Phone Adam Keys MD Primary Care Provider [phone] Reason for Visit * Reason Comments Abdominal Pain Pt to the emergency department with lower abd pain. States that the pain started yesterday afternoon. Encounter Details Date Type Department Care Team (Late st Contact Info) Description 06/18/2009 14:26 EDT - 06/18/2009 19:03 EDT Emergency [facility] Emergency Department - Main [place] [address], [place] [id number] Christian Hightower PA-C [address] [phone] Emergency, MD [place] PID (Acute Pelvic Inflammatory Disease); Abdominal Pain Discharge Disposition: Home or Self Care Social [...] Sign Reading Time Taken Comments Blood Pressure 118/67 06/18/2009 1432 EDT Pulse 74 06/18/2009 1859 EDT Temperature 35.7 ??C (96.3 ??F) 06/18/2009 1432 EDT Respiratory Rate 16 06/18/2009 1859 EDT Oxygen Saturation - - Inhaled Oxygen Concentration - - Weight - - Height - - Body Mass Index - - documented in this encounter Discharge Instructions * Discharge Instructions* Christian Hightower - 06/18/2009 18:39 EDT Please return here to the ER tomorrow for evaluation and possibly to repeat your white blood cell count. Cervical cultures were taken today and will be done by Saturday Avoid sun exposure while taking your Doxycycline Return here sooner than tomorrow with any worsening symptoms * Attachments The following attachments cannot be sent through Care Everywhere. * Pelvic Inflammatory Disease: After Your Visit documented in this encounter Medications at Time of Discharge Medication Sig Dispensed Refills Start Date End Date albuterol (PROVENTIL HFA, VENTOLIN HFA) 90 mcg/Actuation inhaler Inhale 2 Puffs as directed every 4 hours. doxycycline (VIBRA-TABS) 100 mg tablet Take 1 Tab by mouth 2 times daily. 28 0 06/18/2009 07/02/2009 fluticasone-salmeterol (ADVAIR) 250-50 mcg/Dose diskus inhaler Inhale 1 Puff as directed every 12 hours. 04/25/2020 documented as of this encounter Ordered Prescriptions Prescription Sig Dispensed Refills Start Date End Da te doxycycline (VIBRA-TABS) 100 mg tablet Take 1 Tab by mouth 2 times daily. 28 0 06/18/2009 07/02/2009 documented in this encounter Discharge Disposition Disposition Code Departure Means Destination Home or Self Care Car Home documented in this encounter ED Notes * Angela Hernandez - 06/18/2009 1902 EDT Pt leaves ED ambulatory c no guarding; will rtn tomorrow for f/up eval * Jennifer Lopez, ARVIND - 06/18/2009 1825 EDT Chlamydia/GC sent to lab * Jennifer Lopez RN - 06/18/2009 1818 EDT Pelvic exam done by Alex MONAHAN with Gwen Lopez RN * Christian Hightower - 06/18/2009 1746 EDT DOS: 06/18/2009 Chief Complaint Patient presents with ??? Abdominal Pain Pt to the emergency department with lower abd pain. States that the pain started yesterday afternoon. Patient is a 28 y.o. female presenting with abdominal pain. The history is provided by the patient. Abdominal Pain This is a new problem. The current episode started 3 to 5 hours ago. The problem occurs constantly.The problem has not changed since onset. The pain is located in the suprapubic region. Pertinent negatives include no anorexia, no fever, no diarrhea, no melena, no nausea, no vomiting, no constipation, no dysuria, no frequency, no hematuria and no headaches. Nothing worsens the symptoms. Nothing relieves the symptoms. Review of Systems Constitutional: Negative for fever and chills. HENT: Negative for neck stiffness. Eyes: Negative for visual disturbance. Respiratory: Negative for shortness of breath. Cardiovascular: Negative for chest pain. Gastrointestinal: Positive for abdominal pain. Negative for nausea, vomiting, diarrhea, constipation and melena. Genitourinary: Negative for dysuria, frequency and hematuria. Musculoskeletal: Negative for back pain. Skin: Negative for rash. Neurological: Negative for headaches. Psychiatric/Behavioral: Negative for confusion. All other systems reviewed and are negative. Past Medical History Diagnosis Date ??? Anxiety ??? Asthma ??? Depression History reviewed. No pertinent past surgical history. No Known Allergies History Substance Use Topics ??? Tobacco Use: Yes ??? Alcohol Use: No History reviewed. No pertinent family history. BP 118/67 Pulse 81 Temp(Src) 35.7 ??C (96.3 ??F) (Tympanic) Resp 16 LMP 05/25/2009 Physical Exam Nursing note and vitals reviewed. [...] respiratory distress. Abdominal: Soft. She exhibits no mass. Tenderness is present. She has no rebound and no guarding. Moderate suprapubic tenderness R>L Musculoskeletal: Normal range of motion. Neurological: She is alert. She has normal strength. No sensory deficit. Skin: No rash noted. Psychiatric: She has a normal mood and affect. Radiology orders: RAD US PELVIS TRANSVAGINAL ONLY RAD US PELVIS, TRANSVAGINAL, AND LIMITED DOPPLER RAD US PELVIS TRANSVAGINAL ONLY (Results Pending) RAD US PELVIS, TRANSVAGINAL, AND LIMITED DOPPLER (Results Pending) Procedures Consult orders: None ED Course: On pelvic exam pt had some white discharge from the cervix and much CMT, ?PID based on her exam. I ran cervical cultures and will treat for PID. Pelvic US negative. Given that her pain seem more pronounced on the right than left and given her mild leukocytosis (14.4), I have recommended her to return here tomorrow so we can examine her abdomen and possibly repeat her WBC. Pt still does have an appendix, I do not feel this is a typical appy, especially given her very abnormal pelvic exam MDM Number of Diagnoses and Management Options Abdominal Pain: PID (Acute Pelvic Inflammatory Disease): No diagnosis found. PCP: ADAM KEYS MD 06/18/2009 5:46 PM ED Attending Available for Supervision: Shahzad So * Jennifer Lopez RN - 06/18/2009 0916 EDT Pt to u/s * Jennifer Lopez RN - 06/18/2009 7121 EDT Pt c/o abd pain 08/04 but pt appears to be resting comfortably, resting pain meds prior to u/s * Jennifer Lopez RN - 06/18/2009 1528 EDT Urine sent for micro and culture * Demetrio Thompson - 06/18/2009 1520 EDT Blood drawn via saline lock per protocol, tiger and purple tube(s) sent to lab per order. documented in this encounter Miscellaneous Notes * Scanned Note-Null - Inpatient, Physician - 06/20/2009 0854 EDT documented in this encounter Plan of Treatment Not on file documented as of this encounter Procedures Procedure Name Priority Date/Time Associated Diagnosis Comments CHLAMYDIA/N. GONORRHOEAE AMPLIFIED NUCLEIC ACID Routine 06/18/2009 18:23 EDT RAD US PELVIS, TRANSVAGINAL, AND LIMITED DOPPLER 06/18/2009 17:05 EDT URINE SEDIMENT (MICRO) WITHOUT REFLEX TO CULTURE Routine 06/18/2009 15:23 EDT BACTERIAL CULTURE, URINE Routine 06/18/2009 15:23 EDT POCT TEST, VISUAL READ STAT 06/18/2009 15:18 EDT POCT URINE DIPSTICK, CLINITEK STAT 06/18/2009 15:16 EDT COMPLETE BLOOD COUNT AND DIFFERENTIAL STAT 06/18/2009 15:03 EDT BUN STAT 06/18/2009 15:03 EDT CREATININE STAT 06/18/2009 15:03 EDT ELECTROLYTES STAT 06/18/2009 15:03 EDT documented in this encounter Results * CHLAMYDIA/GC AMPLIFIED (06/18/2009 18:23 EDT) Specimen Description Cervix [facility] Result No Chlamydia trachomatis DNA detected by assistant account manager mediated amplification. [facility] Result No Neisseria gonorrhoeae DNA detected by assistant account manager mediated amplification. [facility] Specimen of unknown material (specimen) 06/18/2009 18:23 EDT 06/18/2009 18:58 EDT Christian Hightower PA-C MICROBIOLOGY - GENE RAL ORDERABLES Performing Organization Address City/State/[facility] Co de Phone Number [facility] [address] [place] [address] * RAD US PELVIS, TRANSVAGINAL, AND LIMITED DOPPLER (06/18/2009 17:05 EDT) Anatomical Region Laterality Modality Other 06/18/2009 17:0 5 EDT 06/19/2009 10:22 EDT Narrative 06/19/2009 10:22 EDT US PELVIS, TRANSVAGINAL, AND LMT DOPPLER ??Jun 18, 2009 5:05:00 PM Signs and Symptoms: adnexal pain, leukocytosis, nausea Comparison: None. Exam: Transabdominal and transvaginal pelvic ultrasound. Findings: The uterus measures 8.8 x 3.7 x 5.6 cm. The endometrial stripe measures up to 1.0 cm. The uterus is anteverted. The myometrium demonstrates heterogeneous echogenicity. There is a small hyperechogenic focus measuring approximately 2 mm just anterior to the endometrial stripe most likely a calcification. The right ovary measures 4.7 x 2.0 x 2.1 cm. The left ovary measures 3.7 x 2.2 x 3.3 cm. Normal Doppler flow is seen within both ovaries. No ??free fluid was identified. Impression: No evidence of ovarian cyst rupture. The findings were discussed with Dr. HIGHTOWER ??shortly after completion of the study. I have personally reviewed the images and the above interpretation and agree with the findings. Procedure Note Topher Berkowitz MD / Topher Berkowitz MD / Topher Berkowitz MD - 06/19/2009 US PELVIS, TRANSVAGINAL, AND LMT DOPPLER Jun 18, 2009 5:05:00 PM Signs and Symptoms: adnexal pain, leukocytosis, nausea Comparison: None. Exam: Transabdominal and transvaginal pelvic ultrasound. Findings: The uterus measures 8.8 x 3.7 x 5.6 cm. The endometrial stripe measures up to 1.0 cm. The uterus is anteverted. The myometrium demonstrates heterogeneous echogenicity. There is a small hyperechogenic focus measuring approximately 2 mm just anterior to the endometrial stripe most likely a calcification. The right ovary measures 4.7 x 2.0 x 2.1 cm. The left ovary measures 3.7 x 2.2 x 3.3 cm. Normal Doppler flow is seen within both ovaries. No free fluid was identified. Impression: No evidence of ovarian cyst rupture. The findings were discussed with Dr. HIGHTOWER shortly after completion of the study. I have personally reviewed the images and the above interpretation and agree with the findings. Christian Hightower PA-C IMG US ORDERABLES * BACTERIAL CULTURE, URINE (06/18/2009 15:23 EDT) Specimen Description Urine [facility] Result 10,000 to 100,000 CFU/ml STREPTOCOCCUS , ALPHA HEMOLYTIC Less than 10,000 CFU/ml Mixed gram positive growth [facility] Report Status Final 06/19/2009 [facility] 06/18/2009 15:2 3 EDT 06/18/2009 15:31 EDT Default Emergency MICROBIOLOGY - GENE [facility] ORDERABLES [facility] [address] [place] [address] * (ABNORMAL) URINE MICROSCOPIC ONLY (06/18/2009 15:23 EDT) WBC, UA 5 to 10 0 - 5 /HPF [facility] RBC, UA 1 to 5 0 - 5 /HPF [facility] Squam Epithel, UA Innum(A) NS /HPF [facility] Renal Epithel, UA None seen NS /HPF [facility] Bacteria, UA Frequent(A) NS /HPF [facility] Crystals, UA None seen /HPF [facility] Hyaline Casts, UA None seen /LPF [facility] Comment Microscopic results are unreliable on urines unrefrig >2hrs or refrig >8hrs. [facility] Mucus, UA Present [facility] 06/18/2009 15:2 3 EDT 06/18/2009 15:31 EDT Default Emergency MD URINALYSIS ORDERABL ES [facility] [address] [place] [address] * POCT URINE TEST (06/18/2009 15:18 EDT) Kit Lot Number Expiration Date Test, Urine, POC Negative Negative Control Line Present Background Clear? Urine specimen (specimen) 06/18/2009 15:18 EDT Christian A [email or web address] PA-C POINT OF CARE TEST ORDERABLES * (ABNORMAL) POCT URINE DIPSTICK (06/18/2009 15:16 EDT) Strip Lot Number Expiration Date Color, UA Clarity, UA Glucose, UA Negative Negative, Trace mg/dL Bilirubin, UA 1+(A) Negative Ketones, UA Trace(A) Negative mg/dL Spec Grav, UA 1.025 1.010, 1.015, 1.020, 1.025 Blood, UA Trace(A) Negative pH, UA 6.0 5.0 - 9.0 Protein, UA Trace(A) Negative mg/dL Urobilinogen, UA 1.0 2.0 E.U./dL Nitrite, UA Negative Negative Leuk Esterase 1+(A) Negative Comment Urine specimen (specimen) 06/18/2009 15:16 EDT Christian A Katja PA-C POINT OF CARE TEST ORDERABLES * (ABNORMAL) HEMAGRAM AND DIFFERENTIAL (06/18/2009 15:03 EDT) WBC 14.46(H) 4.0 - 12.4 K/cmm [facility] RBC 4.42 3.86 - 5.04 M/cmm [facility] Hemoglobin 13.2 11.6 - 15.2 gm/dl [facility] HCT 39.0 34.9 - 44.4 % [facility] MCV 88 81 - 98 fl [facility] MCH 29.8 26.7 - 33.3 pg [facility] MCHC 33.7 32.1 - 35.9 gm/dl [facility] PLT 242 141 - 320 K/cmm [facility] RDW-CV 13.2 11.7 - 14.6 % [facility] Neutrophils 84.7(H) 45.5 - 79.7 % [facility] Lymphocytes 14.2(L) 15.0 - 46.8 % [facility] Monocytes 0.3(L) 1.8 - 12.0 % [facility] Eosinophils 0.7 0.6 - 6.9 % [facility] Basophils 0.1(L) 0.2 - 1.4 % [facility] ABS Neutrophils 12.25(H) 2.20 - 8.85 K/cmm [facility] ABS Lymphs 2.05 1.09 - 3.30 K/cmm [facility] ABS Monocytes 0.05(L) 0.1 - 0.8 K/cmm [facility] ABS Eosinophils 0.10 0.03 - 0.61 K/cmm [facility] ABS Basophils 0.01 0.01 - 0.11 K/cmm [facility] Type of Diff: Automated [facility] Blood specimen (specimen) 06/18/2009 15:03 EDT 06/18/2009 15:19 EDT Christian Hightower PA-C PACKAGES & DNA PROB E ORDERABLES [facility] [address] [place] [address] * CREATININE (06/18/2009 15:03 EDT) Creatinine 0.70 0.7 - 1.5 mg/dl [facility] GFR, Calculated >60 ml/min/1.7 3m2 [facility] Blood specimen (specimen) 06/18/2009 15:03 EDT 06/18/2009 15:19 EDT Christian A Katja PA-C CHEMISTRY & BLOOD G ORDERABLES Performing Organization Address [facility] de Phone Number [facility] [address] [place] [address] * BUN (06/18/2009 15:03 EDT) BUN 12 10 - 26 mg/dl [facility] Blood specimen (specimen) 06/18/2009 15:03 EDT 06/18/2009 15:19 EDT Christian A Katja PA-C CHEMISTRY & BLOOD G ORDERABLES Performing Organization Address [facility] Phone Number [facility] [address] [place] [address] * ELECTROLYTES (06/18/2009 15:03 EDT) Sodium 141 136 - 145 mEq/L [facility] Potassium 3.9 3.5 - 5.0 mEq/L [facility] Chloride 104 96 - 110 mEq/L [facility] CO2 29 24 - 32 mEq/L [facility] Blood specimen (specimen) 06/18/2009 15:03 EDT 06/18/2009 15:19 EDT Christian A Katja PA-C CHEMISTRY & BLOOD G ORDERABLES Performing Organization Address [facility] Phone Number [facility] [address] [place] [address] documented in this encounter Visit Diagnoses Diagnosis PID (acute pelvic inflammatory disease) Acute parametritis and pelvic cellulitis Abdominal pain Abdominal pain, unspecified site documented in this encounter Administered Medications Inactive Administered Medications - up to 3 most recent administrations Medication Order MAR Action Action Date Dose Rate Site cefTRIAXone (ROCEPHIN) injection 250 mg 250 mg, intravenous, NOW X1, 1 dose, On 06/18/09 at 1845, STAT Given 06/18/2009 18:45 EDT 250 mg ketorolac (TORADOL) injection 30 mg 30 mg, intravenous, NOW X1, 1 dose, On 06/18/09 at 1900, STAT Given 06/18/2009 19:00 EDT 30 mg ketorolac (TORADOL) injection 30 mg 30 mg, intravenous, NOW X1, 1 dose, On 06/18/09 at 1700, STAT Given 06/18/2009 16:38 EDT 30 mg documented in this encounter Active and Recently Administered Medications Times are shown in EDT. Scheduled Medication Order 06/16/2009 06/17/2009 06/18/2009 cefTRIAXone (ROCEPHIN) injection 250 mg (COMPLETED) 250 mg, intravenous, NOW X1, 1 dose, On 06/18/09 at 1845, STAT 1845 (Given - Provid er: Dylon Kaba) ketorolac (TORADOL) injection 30 mg (COMPLETED) 30 mg, intravenous, NOW X1, 1 dose, On 06/18/09 at 1900, STAT 1900 (Given - Provid er: Dylon Kaba) ketorolac (TORADOL) injection 30 mg (COMPLETED) 30 mg, intravenous, NOW X1, 1 dose, On 06/18/09 at 1700, STAT 1638 (Given - Provid er: Jennifer Lopez RN) documented in this encounter Orders Medications Ordered That Sheng ht Not Have Been Administered Count Last Ordered Date First Ordered Date Acetaminophen w/ Codeine 300 -30 mg Tab STARTER PACK 1 06/18/2009 cefTRIAXone (ROCEPHIN) injection 250 mg 1 0 06/18/2009 documented in this encounter Care Teams Sap Data Analyst Relationship Specialty Start Date End Date Adam Keys MD [address] [place] [phone] PCP - General 04/23/09 08/07/09 documented as of this encounter
--- OUTSIDE RECORDS SUMMARY | 2024-07-02 18:55 | XMS_ITS | Encounter Summary ---
Author Organization [facility] Address [address] [place] [address] Care Team Providers Care Kitchen Worker Name Role Phone Marlene Perry MD Primary Care Provider [phone] Encounter Details Date Type Department Care Team (Late st Contact Info) Description 09/17/2011 Results Only [facility] Gynecologic Oncology - [address] [id number] Hoang Ivan MD [address] [facility], [address] [place] [address] Social History Tobacco Use Types [...] Date/Time Associated Diagnosis Comments SURGICAL PATHOLOGY Routine 09/17/2011 0:00 EDT documented in this encounter Results * SURGICAL PATHOLOGY (09/17/2011 0:00 EDT) Pathology Report: SURGICAL PATHOLOGY REPORT Reports generated via electronic interface contain original data; however they are lacking the format of the original report. Caution should be taken when reading/interpreti ng unformatted reports. Name: ? YESENIA LAGOS ? Accession #: ? [id number] ? : ? 1980 (Age: 30) ??F ? Collect Date: ? 09/17/2011 ? Location: ? [facility] ? Receive Date: ? 09/17/2011 ? Provider: HOANG IVAN MD Copy to: ? Final Pathologic Diagnosis: A. ?Skin, perianal, #1, biopsy: 1. ?Condyloma acuminatum. ??See comment. B. ?Skin, perianal, #2, biopsy: 1. ?Condyloma acuminatum. C. ?Vulva, left, biopsy: 1. ?Condyloma acuminatum. D. ?Vulva, right, biopsy: 1. ?Condyloma acuminatum. E. ?Clitoral kevin, biopsy: 1. ?Condyloma acuminatum. Comment: ? Dr. Johana Art has reviewed this case in consultation and agrees with the above diagnoses. ??(Dr. Ty)/ljn Document reviewed and electronically signed by: VEE TY MD Report ??Date: 09/19/2011 16:30 By the signature above, the attending physician certifies that he/she has personally conducted a gross and/or microscopic examination of the described specimens and rendered or confirmed the above diagnosis. Specimen(s) Received: A. ?Perianal #1 B. ? Perianal #2 C. ? Left vulva D. ? Right vulva E. ? Clitoral kevin Clinical History: ? Genital warts, hx excision in 2005; clinical diagnosis code: ??078.11 Gross Description: ? Received in formalin labelled Pecor, Yesenia and #1 perianal is a 0.8 x 0.6 x 0.3 cm lerma-white, verrucoid skin nodule. ??The resection margin is inked black. ??The specimen is bisected and entirely submitted in (A). Received in formalin labelled Pecor, Yesenia and perianal #2 is a 0.5 x 0.4 x 0.3 cm lerma-white, verrucoid skin nodule. ??The resection margin is inked black and the specimen is submitted intact in (B). Received in formalin labelled Pecor, Yesenia and left is a 0.6 x 0.5 x 0.2 cm lerma-brown to lerma-white, variegated, verrucoid skin nodule. ??The resection margin is inked black. ??The specimen is bisected and entirely submitted in (C). Received in formalin labelled Pecor, Yesenia and right vulva is a 0.5 x 0.3 x 0.1 cm lerma-purple skin nodule. ??The resection margin is inked black and the specimen is submitted intact in (D). Received in formalin labelled Pecor, Yesenia and clitoral kevin is a 0.7 x 0.5 x 0.2 cm lerma-white, verrucoid skin ??nodule. ??The resection margin is inked black and the specimen is submitted intact in (E). ??(Woody Ledesma)/[facility] End of Report [facility] 09/17/2011 09/17/2011 14: 53 EDT Hoang Ivan MD PATHOLOGY ORDERABLES [facility] [address] [place] [address] documented in this encounter Visit Diagnoses Not on filedocumented in this encounter Care Teams Kitchen Worker Relationship Specialty Start Date End Date Marlene Perry MD [address] [address] PCP - General 09/17/11 08/28/17 documented as of this encounter
--- OUTSIDE RECORDS SUMMARY | 2024-07-02 18:56 | XMS_ITS | Encounter Summary ---
Author Organization [facility] Address [address] [place] [address] Care Team Providers Care Communications Consultant Name Role Phone Unavailable Primary Care Provider Unavailabl e Encounter Details Date Type Department Care Team (Latest Contact Info) Description 12/05/2007 18:29 EST Hospital Encounter [facility] Emergency Department - [address] [address] Emergency, Default, MD Discharge Disposition: Home or [...] Procedure Name Priority Date/Time Associated Diagnosis Comments TIBIA FIBULA 2 VIEWS 12/05/2007 19:15 EST FOOT 3 OR MORE VIEWS 12/05/2007 19:15 EST documented in this encounter Results * FOOT 3 OR MORE VIEWS (12/05/2007 19:15 EST) Anatomical Region Laterality Modality Other 12/05/2007 19:1 5 EST Narrative 05/16/2009 5:54 EDT pain s/p fall r/o fx FOOT 3 OR MORE VIEWS ??AND TIBIA-FIBULA 2 VIEWS Dec 05, 2007 7:15:00 PM Signs and Symptoms: ??pain s/p fall r/o fx Comparison: July 21, 2005. Eyes: Three views of the left foot were performed. There is a partially corticated fragment adjacent to the dorsal aspect of the talonavicular joint arising from the navicular. This is not present on the prior radiographs in 2004. A well corticated fragment is also seen adjacent to the base of the distal phalanx of the great toe. An os perineum is present. No displaced fracture is identified. Alignment is anatomic and mineralization is normal. Two views of the tibia and fibula demonstrate no fracture or dislocation. Once again identified is a fragment of bone adjacent to the dorsal aspect of the proximal navicular. Impression: 1. Partially corticated fragment adjacent to the dorsal aspect of the proximal navicular. No appreciable soft tissue swelling is seen adjacent. However if there is tenderness is in this area, this may represent an acute fracture. It is not present on the prior radiographs of 2004. Addendum Begins Addendum: The line reading Eyes: ??should read Findings: Addendum Ends Procedure Note Zhen Niño MD - 05/16/2009 pain s/p fall r/o fx FOOT 3 OR MORE VIEWS AND TIBIA-FIBULA 2 VIEWS Dec 05, 2007 7:15:00 PM Signs and Symptoms: pain s/p fall r/o fx Comparison: July 21, 2005. Eyes: Three views of the left foot were performed. There is a partially corticated fragment adjacent to the dorsal aspect of the talonavicular joint arising from the navicular. This is not present on the prior radiographs in 2004. A well corticated fragment is also seen adjacent to the base of the distal phalanx of the great toe. An os perineum is present. No displaced fracture is identified. Alignment is anatomic and mineralization is normal. Two views of the tibia and fibula demonstrate no fracture or dislocation. Once again identified is a fragment of bone adjacent to the dorsal aspect of the proximal navicular. Impression: 1. Partially corticated fragment adjacent to the dorsal aspect of the proximal navicular. No appreciable soft tissue swelling is seen adjacent. However if there is tenderness is in this area, this may represent an acute fracture. It is not present on the prior radiographs of 2004. Addendum Begins Addendum: The line reading Eyes: should read Findings: Addendum Ends Peewee Paredes Chrissy PEREZ IMG DIAGNOSTIC IMAGI NG ORDERABLES * TIBIA FIBULA 2 VIEWS (12/05/2007 19:15 EST) Anatomical Region Laterality Modality Other 12/05/2007 19:1 5 EST Narrative 05/16/2009 5:54 EDT pain s/p fall r/o fx FOOT 3 OR MORE VIEWS ??AND TIBIA-FIBULA 2 VIEWS Dec 05, 2007 7:15:00 PM Signs and Symptoms: ??pain s/p fall r/o fx Comparison: July 21, 2005. Eyes: Three views of the left foot were performed. There is a partially corticated fragment adjacent to the dorsal aspect of the talonavicular joint arising from the navicular. This is not present on the prior radiographs in 2004. A well corticated fragment is also seen adjacent to the base of the distal phalanx of the great toe. An os perineum is present. No displaced fracture is identified. Alignment is anatomic and mineralization is normal. Two views of the tibia and fibula demonstrate no fracture or dislocation. Once again identified is a fragment of bone adjacent to the dorsal aspect of the proximal navicular. Impression: 1. Partially corticated fragment adjacent to the dorsal aspect of the proximal navicular. No appreciable soft tissue swelling is seen adjacent. However if there is tenderness is in this area, this may represent an acute fracture. It is not present on the prior radiographs of 2004. Addendum Begins Addendum: The line reading Eyes: ??should read Findings: Addendum Ends Procedure Note Zhen Niño MD - 05/16/2009 pain s/p fall r/o fx FOOT 3 OR MORE VIEWS AND TIBIA-FIBULA 2 VIEWS Dec 05, 2007 7:15:00 PM Signs and Symptoms: pain s/p fall r/o fx Comparison: July 21, 2005. Eyes: Three views of the left foot were performed. There is a partially corticated fragment adjacent to the dorsal aspect of the talonavicular joint arising from the navicular. This is not present on the prior radiographs in 2004. A well corticated fragment is also seen adjacent to the base of the distal phalanx of the great toe. An os perineum is present. No displaced fracture is identified. Alignment is anatomic and mineralization is normal. Two views of the tibia and fibula demonstrate no fracture or dislocation. Once again identified is a fragment of bone adjacent to the dorsal aspect of the proximal navicular. Impression: 1. Partially corticated fragment adjacent to the dorsal aspect of the proximal navicular. No appreciable soft tissue swelling is seen adjacent. However if there is tenderness is in this area, this may represent an acute fracture. It is not present on the prior radiographs of 2004. Addendum Begins Addendum: The line reading Eyes: should read Findings: Addendum Ends Peewee Lowe PA-C IMG DIAGNOSTIC IMAGI NG ORDERABLES documented in this encounter Visit Diagnoses Not on filedocumented in this encounter
--- OUTSIDE RECORDS SUMMARY | 2024-07-02 18:56 | XMS_ITS | Encounter Summary ---
Author Organization [facility] Address [address] [place] [address] Care Team Providers Care Overhead Crane Technician Name Role Phone Betsy Perez MD Primary Care Provider [phone] Carlos Damian MD Primary Care Provider + [phone] Nicky Fernandez APRN Primary Care Provider Unava ilable Betsy Perez MD Primary Care Provider [phone] Betsy Perez MD Primary Care Provider [phone] Nicky Fernandez APRN Primary Care Provider Unava ilable Encounter Details Date Type Department Care Team (Late st Contact Info) Description 04/17/2006 Results Only [facility] Gynecologic Oncology - [address] [phone] Hoang Ivan MD [address] [facility], [address] [place] [address] Social History Tobacco Use Types [...] Date/Time Associated Diagnosis Comments SURGICAL PATHOLOGY Routine 04/17/2006 0:00 EDT documented in this encounter Results * SURGICAL PATHOLOGY (04/17/2006 0:00 EDT) Pathology Report: SURGICAL PATHOLOGY REPORT Reports generated via electronic interface contain original data; however they are lacking the format of the original report. Caution should be taken when reading/interpreti ng unformatted reports. Name: ? YESENIA LAGOS ? Accession #: ? [id number] ? : ? 1980 (Age: 25) ??F ? Collect Date: ? 04/17/2006 ? Location: ? [facility] ? Receive Date: ? 04/17/2006 ? Provider: HOANG IVAN MD Copy to: NINA WARD NP ? Final Pathologic Diagnosis: A. ?Skin of perianal region, shave excisions: 1. ?Fragments of condyloma acuminata. B. ?Skin of vulva, posterior fourchette, shave excisions: 1. ?Fragments of condyloma acuminata. C. ?Skin of mons, left side, shave excision: 1. ?Fragments of condyloma acuminata. D. ?Skin of periumbilical region, shave excisions: 1. ?Fragments of condyloma acuminata. E. ?Skin of labia minora, right, excisional biopsy: 1. ?Melanotic macule. F. ?Skin of labia majora, right, excision: ? 1. ?? Portion of cauterized skin with follicular cyst, infundibular type. ?? Document reviewed and electronically signed by: ROSEY ZAMBRANO MD Report ??Date: 04/18/2006 16:10 By the signature above, the attending physician certifies that he/she has personally conducted a gross and/or microscopic examination of the described specimens and rendered or confirmed the above diagnosis. Specimen(s) Received: A. ?Perianal condyloma B. ?Condyloma vulvar/posterior fourchette C. ?Condyloma left mons D. ?Periumbilical condyloma E. ?Pigmented lesion right labia minora F. ?Lesion right labia majora Clinical History: ? Vulvar and perianal condyloma Gross Description: ? Received in formalin labelled Pecor and A ??perianal condyloma are multiple pink polypoid verrucoid lesions ranging from 0.5 x 0.3 x 0.1 cm to 3.5 x 2.0 x 0.5 cm. ??The resection margins are inked in black. ??The specimen is entirely submitted as (A1) to (A14). Received in formalin labelled Pecor and B ??condyloma vulvar/posterior fourchette are multiple pink verrucoid soft tissue fragments ranging from 0.5 x 0.3 x 0.2 cm to 2.0 x 0.8 x 0.3 cm. ??The deep resection margin is inked in black. ??The specimen is serially sectioned and entirely submitted as (B1) to (B6). Received in formalin labelled Pecor and C ??condyloma left mons are three pink verrucoid tissue fragments ranging from 0.7 x 0.5 x 0.3 cm to 1.5 x 1.1 x 0.3 cm. ??The deep margin is inked in black. ??Each fragment is bisected and entirely submitted as (C1) and (C2). Received in formalin labelled Pecor and D ??condyloma periumbilical are two pink verrucoid tissue fragments measuring 1.1 x 0.7 x 0.3 cm and 1.5 x 0.7 x 0.3 cm. ??The deep resection margin is inked in black. ??Each fragment is bisected and entirely submitted as (D1) and (D2). ?? Received in formalin labelled Pecor and E ??pigmented lesion right labia minora is a 1.2 x 0.5 x 0.2 cm ovoid soft tissue fragment. ??A brown macule measuring 0.5 cm is identified. ??The specimen is bisected and submitted entirely as (E). Received in formalin labelled Pecor and F ??lesion right labia majora is a 0.7 x 0.6 x 0.3 cm excision. ??One surface is covered by pink mucosa with an irregular brown papule. ??The deep resection margin is inked black. ??The specimen is bisected and submitted entirely as (F). ??(Dr. Leger[place] [place] End of Report EDD DIANE 04/17/2006 04/17/2006 14: 19 EDT Hoang Ivan MD PATHOLOGY ORDERABLES Performing Organization Address City/State/[facility] Co de Phone Number [facility] [address] [place] [address] documented in this encounter Visit Diagnoses Not on filedocumented in this encounter Care Teams Overhead Crane Technician Relationship Specialty Start Date End Date Betsy Perez MD [address] [place] [phone] PCP - General 01/09/10 09/16/11 Carlos Damian MD [address] [facility] [address] [place] [phone] PCP - General 01/02/10 01/08/10 Nicky Fernandez, DELMI PCP - General 12/30/09 01/01/10 Betsy Perez MD [address] [place] [phone] PCP - General 08/08/09 12/29/09 Betsy Perez MD [address] [place] [phone] PCP - General 04/23/09 08/07/09 Nicky Fernandez APRN PCP - General 03/24/09 04/22/09 documented as of this encounter
--- OUTSIDE RECORDS SUMMARY | 2024-07-02 18:56 | XMS_ITS | Encounter Summary ---
Author Organization [facility] Address [address] [place] [address] Care Team Providers Care Rn Anesthesiology Name Role Phone Unavailable Primary Care Provider Unavailabl e Encounter Details Date Type Department Care Team (Late st Contact Info) Description 03/23/2005 19:24 EDT Hospital Encounter [facility] - Other [address] [place] [address] Nolvia Watson MD Social History Tobacco Use Types Packs/Day Years [...]
--- OUTSIDE RECORDS SUMMARY | 2024-07-02 18:56 | XMS_ITS | Encounter Summary ---
Author Organization [facility] Address [address] [place] [address] Care Team Providers Care Coremaker Machine Name Role Phone Betsy Perez MD Primary Care Provider [phone] Carlos Damian MD Primary Care Provider + [phone] Nicky Fernandez APRN Primary Care Provider Unava ilable Betsy Perez MD Primary Care Provider [phone] Betsy Perez MD Primary Care Provider [phone] Nicky Fernandez APRN Primary Care Provider Unava ilable Encounter Details Date Type Department Care Team (Late st Contact Info) Description 12/22/2007 Results Only [facility] [address] [place] [address] Nicky Fernandez APRN Social History Tobacco Use Types Packs/Day Years [...] REFLEX TO HCV RNA BY PCR Routine 12/22/2007 16:10 EST HEPATITIS A TOTAL ANTIBODY W REFLEX Routine 12/22/2007 16:10 EST HEPATITIS B CORE ANTIBODY (TOTAL) Routine 12/22/2007 16:10 EST HEPATITIS B SURFACE ANTIBODY Routine 12/22/2007 16:10 EST HEPATITIS B SURFACE ANTIGEN Routine 12/22/2007 16:10 EST documented in this encounter Results * HEPATITIS C ANTIBODY (12/22/2007 16:10 EST) Hepatitis C Ab Neg [facility] 12/22/2007 16:1 0 EST 12/23/2007 15:41 EST Nicky Fernandez BILINGUAL STUDENT TUTOR CHEMISTRY & BLOOD GA S ORDERABLES Performing Organization Address [facility] Phone Number [facility] [address] [place] [address] * HEPATITIS B CORE ANTIBODY (12/22/2007 16:10 EST) Hep B Core Ab Neg [facility] 12/22/2007 16:1 0 EST 12/23/2007 15:41 EST Nicky Fernandez APRN CHEMISTRY & BLOOD GA S ORDERABLES Performing Organization Address [facility] Phone Number [facility] [address] [place] [address] * HEPATITIS B SURFACE ANTIGEN (12/22/2007 16:10 EST) Hepatitis B Surface Ag Neg [facility] 12/22/2007 16:1 0 EST 12/23/2007 15:41 EST Nicky Fernandez APRN CHEMISTRY & BLOOD GA S ORDERABLES Performing Organization Address [facility] Co de Phone Number [facility] [address] [place] [address] * HEPATITIS B SURFACE ANTIBODY (12/22/2007 16:10 EST) Hepatitis B Surface Ab Neg [facility] 12/22/2007 16:1 0 EST 12/23/2007 15:41 EST Nicky Fernandez APRN CHEMISTRY & BLOOD GA S ORDERABLES Performing Organization Address City/[facility] Co de Phone Number [facility] [address] [place] [address] * HEPATITIS A TOTAL ANTIBODY (12/22/2007 16:10 EST) Hep A Antibody Neg [facility] 12/22/2007 16:1 0 EST 12/23/2007 15:41 EST Nicky Fernandez BILINGUAL STUDENT TUTOR CHEMISTRY & BLOOD GA S ORDERABLES Performing Organization Address City/[facility] Co de Phone Number [facility] [address] [place] [address] documented in this encounter Visit Diagnoses Not on filedocumented in this encounter Care Teams Coremaker Machine Relationship Specialty Start Date End Date Betsy Perez MD [address] [place] [phone] PCP - General 01/09/10 09/16/11 Carlos Damian MD [address] [place] [phone] PCP - General 01/02/10 01/08/10 Nicky Fernandez APRN PCP - General 12/30/09 01/01/10 Betsy Perez MD [address] [place] [phone] PCP - General 08/08/09 12/29/09 Betsy Perez MD [address] [place] [phone] PCP - General 04/23/09 08/07/09 Nicky Fernandez APRN PCP - General 03/24/09 04/22/09 documented as of this encounter
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
--- OUTSIDE RECORDS SUMMARY | 2024-07-02 18:56 | XMS_ITS | Encounter Summary ---
Author Organization [facility] Address [address] [place] [address] Care Team Providers Care Rn Acls Name Role Phone Unavailable Primary Care Provider Unavailabl e Encounter Details Date Type Department Care Team (Latest Contact Info) Description 06/28/2006 17:33 EDT Hospital Encounter [facility] Emergency Department - [facility] [address] [place] [address] Emergency, Default, MD Discharge Disposition: Home or [...] Procedure Name Priority Date/Time Associated Diagnosis Comments FOOT 3 OR MORE VIEWS 06/28/2006 18:32 EDT ANKLE 3 OR MORE VIEWS 06/28/2006 18:32 EDT documented in this encounter Results * ANKLE 3 OR MORE VIEWS (06/28/2006 18:32 EDT) Anatomical Region Laterality Modality Other 06/28/2006 18:3 2 EDT Narrative 06/11/2009 12:24 EDT stubbed right foot r/o fx THREE VIEWS RIGHT ANKLE AND THREE VIEWS RIGHT FOOT 06/28/06 CLINICAL HISTORY: ??stubbed foot; rule out fracture. FINDINGS: Three views of the ankle are compared with ankle radiographs that were performed June ??2004. ??There appears to be some edema of the distal leg and ankle region that is diffuse. The ankle mortise is intact. No fracture or dislocation is seen. Three views of the right foot show no evidence of fracture or dislocation. D 06/28/06 T 07/01/06 /josefina Procedure Note Giorgio Cross MD - 06/11/2009 stubbed right foot r/o fx THREE VIEWS RIGHT ANKLE AND THREE VIEWS RIGHT FOOT 06/28/06 CLINICAL HISTORY: stubbed foot; rule out fracture. FINDINGS: Three views of the ankle are compared with ankle radiographs that were performed July 21, 2005. There appears to be some edema of the distal leg and ankle region that is diffuse. The ankle mortise is intact. No fracture or dislocation is seen. Three views of the right foot show no evidence of fracture or dislocation. D 06/28/06 T 07/01/06josefina Neymar Bojorquez PA-C [facility] ORDERABLES * FOOT 3 OR MORE VIEWS (06/28/2006 18:32 EDT) Anatomical Region Laterality Modality Other 06/28/2006 18:3 2 EDT Narrative 06/11/2009 12:24 EDT stubbed right foot r/o fx THREE VIEWS RIGHT ANKLE AND THREE VIEWS RIGHT FOOT 06/28/06 CLINICAL HISTORY: ??stubbed foot; rule out fracture. FINDINGS: Three views of the ankle are compared with ankle radiographs that were performed June ??2004. ??There appears to be some edema of the distal leg and ankle region that is diffuse. The ankle mortise is intact. No fracture or dislocation is seen. Three views of the right foot show no evidence of fracture or dislocation. D 06/28/06 T 07/01/06 /josefina Procedure Note Giorgio Cross MD - 06/11/2009 stubbed right foot r/o fx THREE VIEWS RIGHT ANKLE AND THREE VIEWS RIGHT FOOT 06/28/06 CLINICAL HISTORY: stubbed foot; rule out fracture. FINDINGS: Three views of the ankle are compared with ankle radiographs that were performed July 21, 2005. There appears to be some edema of the distal leg and ankle region that is diffuse. The ankle mortise is intact. No fracture or dislocation is seen. Three views of the right foot show no evidence of fracture or dislocation. D 06/28/06 T 07/01/06 /josefina Neymar Bojorquez PA-C [facility] NG ORDERABLES documented in this encounter Visit Diagnoses Not on filedocumented in this encounter
--- OUTSIDE RECORDS SUMMARY | 2024-07-02 18:56 | XMS_ITS | Encounter Summary ---
Author Organization [facility] Address [address] [place] [address] Care Team Providers Care Copper Plate Printer Name Role Phone Betsy Perez MD Primary Care Provider [phone] Carlos Damian MD Primary Care Provider + [phone] Nicky Fernandez APRN Primary Care Provider Unava ilable Betsy Perez MD Primary Care Provider [phone] Betsy Perez MD Primary Care Provider [phone] Nicky Fernandez APRN Primary Care Provider Unava ilable Encounter Details Date Type Department Care Team (Late st Contact Info) Description 04/11/2009 Office Visit [facility] - [facility] [address] [place] [address] Harmeet Gunderson MD Social History Tobacco Use Types Packs/Day Years Used Date Smoking Tobacco: Never Assessed Sex and Gender Information Value Date Recorded Sex Assigned at Female 05/03/2022 19:33 EDT Gender Identity Female 05/02/2020 15:51 EDT Sexual Orientation Straight 05/03/2022 19 :33 EDT documented as of this encounter Progress Notes * Harmeet Gunderson MD - 03/05/2010 0038 EDT Department - Physician Summary Registration Date/Time: 04/11/2009 21:18 Arrived- By private vehicle. Historian- patient. HISTORY OF PRESENT ILLNESS Chief Complaint: MIGRAINE HEADACHE. This started today this morning. It was abrupt in onset and hasbeen waxing/waning. Is still present. It is described as similar to previous headaches and sharp. Located in the frontal and occipital region. No neck pain. Not located in the facial region. At its maximum, severity described as 9 / 10. When seen in the E.D., severity described as 9 / 10. Modifyingfactors: worsened by bright light and noise; relieved by dark room. She has had photophobia and nausea. No blurred vision, numbness, weakness or vomiting. REVIEW OF SYSTEMS The patient has had a subjective fever. She has had a nasal discharge, chills, muscle aches, fatigue and photophobia. She has had nausea, abdominal pain and joint pain. She has experienced sweats. The patient has had left ear pain. No ear drainage, hearing loss, nasal congestion, sore throat or chest pain. No palpitations, difficulty breathing, cough, pedal edema or calf pain. No vomiting, constipation, diarrhea or hematuria. No urinary frequency or urinary problems, pelvic pain, vaginal discharge or skin rash. No dizziness, fainting episodes, numbness or weakness. PAST HISTORY Migraine headaches. Anxiety problems. Depression. Recovering substance abuse (alcohol). Medications: The patient's medications have been reviewed. Allergies: No known drugallergies. SOCIAL HISTORY Smoker (1/2pack/day x12 years). History of occasional drug use: marijuana. No alcohol use. PHYSICAL EXAM Appearance: Alert. No acute distress. Appears to be in pain. Eyes: Photophobia present. Pupils equal, roundand reactive to light. Eyes normal inspection. ENT: Ears normal. Pharynx normal. No nasal discharge. Neck: Normal inspection. Neck supple. CVS: Normal heart rate and rhythm. Heart sounds normal. Pulses normal. Respiratory: No respiratory distress. Breath sounds normal. Abdomen: Obesity. Abdomen soft and nontender. No organomegaly. Back: Normal inspection. Skin: Normal skin color and turgor. Skin warm and dry. No rash. Extremities: No lower extremity edema. Neuro: Oriented X 3. Alert. Mood/affect normal. Speech normal. Cranial nerves normal (as tested). PROGRESS AND PROCEDURES E.D. Course: Good relief of symptoms with meds Sent home with written discharge instructions as T system was down when discharged. Disposition: Condition: stable. Discharged home. CLINICAL IMPRESSION Migraine headache. (Electronically signed by Harmeet Gunderson M.D. 04/12/2009 17:52) Department - Nursing Summary Registration Date/Time: 04/11/2009 21:18 TRIAGE Initial Assessment Triage time 22:Apr 11 2009. Acuity: LEVEL 4. BP: 97 / 45. HR: 77. RR: 16. Temp: 36.5. Alert. --2213 Manish Baez R.N.. Medications Amitriptyline: 25mg daily and at bedtime.twice a day. Gabapentin: 300mg three times a day. Naprosyn: 500 mg. ( Albuterol Inhaler, as needed. Effexor. Ibuprofen). --2213 Manish Baez R.N.. Allergies No known drug allergies. --2213 Manish Baez R.N.. History Chief Complaint: ABDOMINAL PAIN, NAUSEA and VOMITING. This startedtoday. Pain level now: 4/10. (sore throat, Headache ). PAST HX: Migraine headaches. Arrived by private vehicle. Historian: patient. --2213 Manish Baez R.N.. NURSING PROGRESS NOTES IV started: right antecubital space, 20g angiocath, using aseptic technique, one attempt. Saline lock placed; flushed with 5 mL saline. --1 Rafael Berkowitz RN, Blood samples drawn by nurse per protocol and held: rainbow set. --0002 Rafael Berkowitz RN, COMPAZINE 10 mg diluted with NS IVP over 10 minutes. IV patency established. IV site checked: no pain, redness, or swelling. IV flushed thoroughly pre- and post-medication administration. . --0003 Rafael Berkowitz RN, Urine test negative. --0004 Rafael Berkowitz RN, . IV / I&O Flowsheet IV fluids started. IV bag #1 of 500 mL NS. --0003 Rafael Berkowitz RN, . DISPOSITION / DISCHARGE IV fluids stopped. Total amount infused = 1000 mL. BP. IV site discontinued, catheter intact. Condition at departure: improved. Patient reports pain level on departure as 2/10. No learning barriers present. Discharge instructions reviewed with the patient, beveling and edging machine operator. Reviewed warnings. Treatments reviewed. Reviewed referrals (f/u with PCP tomorrow if not better by afternoon). Activity restrictions (rest) reviewed. Patient, beveling and edging machine operator verbalized understanding. Written instructions provided in [place]. The patient was discharged home and accompanied by beveling and edging machine operator. The patient left the Emergency Department ambulatory. --0122 Danuta Watts R.N. BP: 114 / 61. HR: 59. RR: 18. O2 saturation: 99% room air. (Pt ambulated very steady on feet). --0124 Danuta Watts R.N.. Manish Berkowitz RN, Danuta Watts R.N. Locked/Released at 04/12/2009 5:30 by Danuta Watts R.N. documented in this encounter Plan of Treatment Not on file documented as of this encounter Visit Diagnoses Not on filedocumented in this encounter Care Teams Copper Plate Printer Relationship Specialty Start Date End Date Betsy Perez MD [address] [place] [phone] PCP - General 01/09/10 09/16/11 Carlos Damian MD [address] [place] [phone] PCP - General 01/02/10 01/08/10 Nicky Fernandez, ROOF BOLTER HELPER PCP - General 12/30/09 01/01/10 Betsy Perez MD [address] [place] [phone] PCP - General 08/08/09 12/29/09 Betsy Perez MD [address] [place] [phone] PCP - General 04/23/09 08/07/09 Nicky Fernandez APRN PCP - General 03/24/09 04/22/09 documented as of this encounter
--- OUTSIDE RECORDS SUMMARY | 2024-07-02 18:56 | XMS_ITS | Encounter Summary ---
Author Organization [facility] Address [address] [place] [address] Care Team Providers Care Consumer Marketing Manager Name Role Phone Betsy Perez MD Primary Care Provider [phone] Carlos Damian MD Primary Care Provider + [phone] Nicky Fernandez APRN Primary Care Provider Unava ilable Betsy Perez MD Primary Care Provider [phone] Betsy Perez MD Primary Care Provider [phone] Nicky Fernandez APRN Primary Care Provider Unava ilable Encounter Details Date Type Department Care Team (Late st Contact Info) Description 08/23/2005 Office Visit [facility] - Maple conversion [address] [place] [address] Anamika Ward PA Social History Tobacco Use Types Packs/Day Years Used Date Smoking Tobacco: Never Assessed Sex and Gender Information Value Date Recorded Sex Assigned at Female 05/03/2022 19:33 EDT Gender Identity Female 05/02/2020 15:51 EDT Sexual Orientation Straight 05/03/2022 19 :33 EDT documented as of this encounter Progress Notes * Anamika Ward PA - 01/25/2010 1209 EST Department - Physician Summary Registration Date/Time: 08/23/2005 2:36 Time Seen: 04:01 ; initial documentation. Arrived- By private vehicle. Historian- patient. HISTORY OF PRESENT ILLNESS Chief Complaint: VAGINAL BLEEDING and PASSING TISSUE. This started about 9 days ago and still present (bleeding through super tampon every 1/2 hour today). The symptoms are described as moderate. Modifying factors- Not worsened by anything. Not relieved by anything. The patient has had abnormal bleeding described as heavier than normal period and passing clots. The bleeding has required use of more than 10 pads per day and tampons per day. She has had multiple genital lesions (h/o severe HPV). The patient missed her last period. She has recently had irregular periods (since on depo. now 1st period since off depo). No abdominal pain, pelvic pain, vaginal pain, low back pain or flank pain. No vaginaldischarge, vaginal itching, pain with urination, urinary frequency or urgency of urination. No hematuria. Sexually active. Does not use control measures. Denies current . Patient has not had similar symptoms previously. Not recently seen/assessed. REVIEW OF SYSTEMS No nausea, vomiting, diarrhea, fever or difficulty breathing. No chest pain. PAST HISTORY See nurses notes. Medications: See nurses notes. Allergies: See nurses notes. SOCIAL HISTORY Smoker. No alcohol. ADDITIONAL NOTES The nursing notes have been reviewed. PHYSICAL EXAM Appearance: Alert. No acute distress. Vital Signs: The vital signs have been reviewed. HEENT: Normal external inspection. Neck: Neck supple. CVS: Heart sounds normal. Respiratory: No respiratory distress. Abdomen: Mild tenderness in the right lower quadrant, suprapubic area and left lower quadrant. Bowel sounds normal. Abdomen soft. No guarding or rebound tenderness. Back: Normal external inspection. No CVA tenderness. : Speculum and bimanual exam performed. Moderate vaginal bleeding, consisting of bright red blood, via the cervical os. Bimanual exam normal. (multiple large to small warty lesion of vulva, perineum and anus). Skin: Normal skin color. Skin warm and dry. Extremities: Extremities nontender. No pedal edema. Neuro: Oriented X 3. Mood/affect normal. No motor deficit. No sensory deficit. LABS, X-RAYS, AND EKG CBC: WBC- normal. Hgb- normal. HCT- normal. Platelets- normal. PROGRESS AND PROCEDURES ED Attending on duty and available for supervision: Sari Conway. Disposition: Discharged home. Condition: stable. Discharged home in stable condition. CLINICAL IMPRESSION (HPV). (finn/metrorrhagia). INSTRUCTIONS Drink plenty of fluids. Warnings: GENERAL WARNINGS: Return or contact your physician immediately if your condition worsens or changesunexpectedly, if not improving as expected, or if other problems arise (fever, lightheaded, heavierbleeding). OTC Medications: Take acetaminophen (Tylenol, Datril, etc.) and ibuprofen (Advil, Nuprin, etc.) according to label instructions. Follow-up: [facility] (Electronically signed by Florecita Guy 08/23/2005 5:34) Department - Nursing Summary Registration Date/Time: 08/23/2005 2:36 TRIAGE Initial Assessment Triage time 0235 Acuity: LEVEL 3. BP: 124 / 74 HR: 109 RR: 18 Temp: 36.5 C (tympanic). Alert. No acute distress. --241 Jimmy Adams R.N. Medications None. --241 Jimmy Adams R.N. Allergies No known drug allergies. --241 Jimmy Adams R.N. History Chief Complaint: ABDOMINAL PAIN. Onset- 7 days Pain level now: 6/10. (pt states she was 3 weeks late for her period and now has had it for 8 days. ). (julio dizzy). Treatment ROAD WORKER: None. PAST HX: Negative. SOCIAL HX: Cigarette smoker: less than 1 pack per day. Denies alcohol use. No report of abuse. Arrived by private vehicle. Historian: patient. --241 Jimmy Adams R.N. Interventions ID band on patient. --241 Jimmy Adams R.N. PHYSICAL ASSESSMENT Ambulatory to room. Patient gowned. Alert. Appears in no acute distress. Oriented X 3. --0310 Jimmy Adams R.N. NURSING PROGRESS NOTES Progress Clean catch urine collected. Urine test negative; dip moderate amount for blood and negative for ketones (1.030 6.5 pro tr). --7 Jimmy Adams R.N. (Pt c/o of pain at IV site. IV dripping sluggishly. No swelling or redness noted at site. attemptedIV at another site X 2 without success). --432 Lynn Keller R.N. (pt alert, appears in NAD). --513 Lynn Keller R.N. IV / I&O Flowsheet IV site #1: location left antecubital space. Started: 20g angiocath; aseptic technique used; good blood return noted; one attempt. IV patent. No redness or swelling at site. IV line accessed- flushedwith saline. IV fluid started- #1 bag NS 1000 mL. Rate - wide open. --430 Lynn Keller R.N. 0440 IV start unsuccessful: two attempts. --513 Lynn Keller R.N. DISPOSITION / DISCHARGE Patient reports pain level on departure as 2/10. Condition at departure: improved. Fall risk assessment completed. Low fall risk potential. No barriers to learning present. Discharge instructions reviewed with the patient. Patient verbalized understanding. Written instructions provided. The patientwas accompanied by family. The patient left the Emergency Department ambulatory. --514 Darron Loco R.N., R.N. Locked/Released at 08/23/2005 5:15 by Lynn Keller R.N. documented in this encounter Plan of Treatment Not on file documented as of this encounter Visit Diagnoses Not on filedocumented in this encounter Care Teams Consumer Marketing Manager Relationship Specialty Start Date End Date Betsy Perez MD [address] [place] [phone] PCP - General 01/09/10 09/16/11 Carlos Damian MD [address] [place] [address] [address] [place] [phone] PCP - General 01/02/10 01/08/10 Nicky Fernandez APRN PCP - General 12/30/09 01/01/10 Betsy Perez MD [address] [place] [phone] PCP - General 08/08/09 12/29/09 Betsy Perez MD [address] [place] [phone] PCP - General 04/23/09 08/07/09 Nicky Fernandez APRN PCP - General 03/24/09 04/22/09 documented as of this encounter
--- OUTSIDE RECORDS SUMMARY | 2024-07-02 18:56 | XMS_ITS | Encounter Summary ---
Author Organization [facility] Address [address] [place] [address] Care Team Providers Care Supervisor Chassis Assembly Name Role Phone Betsy Perez MD Primary Care Provider [phone] Carlos Damian MD Primary Care Provider + [phone] Nicky Fernandez APRN Primary Care Provider Unava ilable Betsy Perez MD Primary Care Provider [phone] Betsy Perez MD Primary Care Provider [phone] Nicky Fernandez APRN Primary Care Provider Unava ilable Encounter Details Date Type Department Care Team (Late st Contact Info) Description 04/26/2008 Office Visit [facility] - Maple conversion [address] [place] [address] Max Mcfarlane MD Social History Tobacco Use Types Packs/Day Years Used Date Smoking Tobacco: Never Assessed Sex and Gender Information Value Date Recorded Sex Assigned at Female 05/03/2022 19:33 EDT Gender Identity Female 05/02/2020 15:51 EDT Sexual Orientation Straight 05/03/2022 19 :33 EDT documented as of this encounter Progress Notes * Giselle Mcfarlane MD (Richard) - 01/13/2010 1027 EST Department - Physician Summary Registration Date/Time: 04/26/2008 21:37 Time Seen: 23:29. Arrived- By private vehicle. Historian- patient. HISTORY OF PRESENT ILLNESS Chief Complaint- Injury to the right foot. The injury happened 4 months ago. The patient sustained a direct blow. Occurred at home. Patient is experiencing moderate pain. REVIEW OF SYSTEMS No swelling, tingling or weakness. PAST HISTORY negative ortho, but positive PTS. Medications: The patient's medications have been reviewed. Allergies: The patient's allergies have been reviewed. ADDITIONAL NOTES The nursing notes have been reviewed. PHYSICAL EXAM Appearance: Alert. No acute distress. had hard and knotty area in central of dorsal foot. Vital Signs: Have been reviewed. Extremities: Right dorsal foot: tenderness and moderate swelling of the middle and central aspect of the dorsal foot. Neurovascular intact distally. No ligamentous laxity present. No limitation in movement. Gait: Normal gait. Neuro, Vascular and Tendons: Sensation intact. Motor intact. LABS, X-RAYS, AND EKG X-Rays: Right foot negative. PROGRESS AND PROCEDURES Disposition: Condition: stable. Discharged home. CLINICAL IMPRESSION Acute pain in right lower extremity (foot). INSTRUCTIONS (Please take the pain meds as needed. Call the orthopedist for follow up. Elevate your foot the next few days. ). Prescription Medications: Darvocet-N 100 mg: take 1 orally every 8 hours as needed for pain. Dispense fifteen (15). No refill. Follow-up: Call tomorrow or the next day [facility] Scheduling at [phone], [phone]. Follow up. Call for the next available appointment. (Electronically signed by Giselle Mcfarlane M.D. 04/27/2008 7:15) Department - Nursing Summary Registration Date/Time: 04/26/2008 21:37 TRIAGE Initial Assessment Triage time 21:39. Acuity: LEVEL 5. BP: 138 / 81. HR: 103. RR: 18. Temp: 36.8 tympanic. O2 saturation: 98% room air. --2143 Gasper Rivas R.N.. Medications (Effexor Trazadone). --2143 Gasper Rivas R.N.. Allergies No known drug allergies. --2143 Gasper Rivas R.N.. History Chief Complaint: (Bump on foot). Pain level now: 910. PAST HX: (Anxiety PTSD Depression ADHD). SOCIAL HX: Smoker: less than 1 pack per day. No alcohol use. Arrived by private vehicle and accompanied by family and friend. Historian: patient. (Object dropped on pt's right foot about four months ago. Pt has had a bump on top of right foot since that time. Was told that it was a soft tissue mass on a previous visit to doctor. Here tonight because pain hasworsened recently.). --2143 Gasper Rivas R.N.. NURSING PROGRESS NOTES VICODIN 2 tab PO. Sedative drug warning given. . --001 Donnell Yap R.N.. DISPOSITION / DISCHARGE Condition at departure: improved. Patient reports pain level on departure as 3/10. No learning barriers present. Discharge instructions reviewed with the patient. Patient verbalized understanding. Written instructions provided in Belarusian. The patient was discharged home and accompanied by news videotape editor. The patient left the Emergency Department ambulatory and via private vehicle. Oil Furnace Installer driving. --0013 Donnell Yap R.N.. Gasper Yap R.N. Locked/Released at 04/27/2008 7:18 by Jeanine Crump R.N. documented in this encounter Plan of Treatment Not on file documented as of this encounter Visit Diagnoses Not on filedocumented in this encounter Care Teams Supervisor Chassis Assembly Relationship Specialty Start Date End Date Betsy Perez MD [address] [place] [phone] PCP - General 01/09/10 09/16/11 Carlos Damian MD [address] [place] [phone] PCP - General 01/02/10 01/08/10 Nicky Fernandez APRN PCP - General 12/30/09 01/01/10 Betsy Perez MD [address] [place] [phone] PCP - General 08/08/09 12/29/09 Betsy Perez MD [address] [place] [phone] PCP - General 04/23/09 08/07/09 Nicky Fernandez APRN PCP - General 03/24/09 04/22/09 documented as of this encounter
--- OUTSIDE RECORDS SUMMARY | 2024-07-02 18:56 | XMS_ITS | Encounter Summary ---
Author Organization [facility] Address [address] [place] [address] Care Team Providers Care Pattern Setter Name Role Phone Betsy Perez MD Primary Care Provider [phone] Carlos Damian MD Primary Care Provider + [phone] Nicky Fernandez APRN Primary Care Provider Unava ilable Betsy Perez MD Primary Care Provider [phone] Betsy Perez MD Primary Care Provider [phone] Nicky Fernandez APRN Primary Care Provider Unava ilable Encounter Details Date Type Department Care Team (Late st Contact Info) Description 12/23/2007 Results Only [facility] - Maple conversion [address] [place] [address] Nicky Fernandez APRN Social History Tobacco Use [...] Procedure Name Priority Date/Time Associated Diagnosis Comments N. GONORRHOEAE AMPLIFIED PROBE Routine 12/23/2007 18:55 EST ZZCHLAMYDIA TRACHOMATIS AMPLIFIED PROBE Routine 12/23/2007 18:55 EST documented in this encounter Results * N. GONORRHOEAE AMPLIFIED PROBE (12/23/2007 18:55 EST) Result No Neisseria gonorrhoeae DNA detected by board runner mediated amplification. [facility] Report Status Final [id number] [facility] Specimen Description Urine [facility] 12/23/2007 18:5 5 EST 12/23/2007 18:55 EST Nicky Fernandez RECEIVING SUPERVISOR MICROBIOLOGY - GENER AL ORDERABLES Performing Organization Address [facility] Co de Phone Number [facility] [address] [place] [address] * CHLAMYDIA TRACHOMATIS AMPLIFIED PROBE (12/23/2007 18:55 EST) Specimen Description Urine [facility] Result No Chlamydia trachomatis DNA detected by board runner mediated amplification. [facility] Report Status Final [id number] [facility] 12/23/2007 18:5 5 EST 12/23/2007 18:55 EST Nicky Fernandez APRN MICROBIOLOGY - GENER AL ORDERABLES Performing Organization Address [facility] de Phone Number [facility] [address] [place] [address] documented in this encounter Visit Diagnoses Not on filedocumented in this encounter Care Teams Pattern Setter Relationship Specialty Start Date End Date Betsy Perez MD [address] [place] [phone] PCP - General 01/09/10 09/16/11 Carlos Damian MD [address] [place] [address] [address] [place] [phone] PCP - General 01/02/10 01/08/10 Nicky Fernandez APRN PCP - General 12/30/09 01/01/10 Betsy Perez MD [address] [place] [phone] PCP - General 08/08/09 12/29/09 Betsy Perez MD [address] [place] [phone] PCP - General 04/23/09 08/07/09 Nicky Fernandez APRN PCP - General 03/24/09 04/22/09 documented as of this encounter
--- OUTSIDE RECORDS SUMMARY | 2024-07-02 18:56 | XMS_ITS | Encounter Summary ---
Author Organization [facility] Address [address] [place] [address] Care Team Providers Care Otm Consultant Name Role Phone Betsy Perez MD Primary Care Provider [phone] Carlos Damian MD Primary Care Provider + [phone] Nicky Fernandez APRN Primary Care Provider Unava ilable Betsy Perez MD Primary Care Provider [phone] Betsy Perez MD Primary Care Provider [phone] Nicky Fernandez APRN Primary Care Provider Unava ilable Encounter Details Date Type Department Care Team (Late st Contact Info) Description 03/10/2009 Office Visit [facility] - Maple conversion [address] [place] [address] Student, T Jeremias Mc MD Social History Tobacco Use Types Packs/Day Years Used Date Smoking Tobacco: Never Assessed Sex and Gender Information Value Date Recorded Sex Assigned at Female 05/03/2022 19:33 EDT Gender Identity Female 05/02/2020 15:51 EDT Sexual Orientation Straight 05/03/2022 19 :33 EDT documented as of this encounter Progress Notes * Sebastian, Conv Channeling Machine Runner - 03/04/2010 9415 EDT Care Center - Physician Summary Registration Date/Time: 03/10/2009 14:21 AMMENDED REPORT - SEE ADDENDA BELOW Arrived- By private vehicle. Historian- patient. HISTORY OF PRESENT ILLNESS Chief Complaint- Injury to the left foot. The injury happened 12 days ago. The patient sustained a twisting injury. Fell (down 10 stairs). Occurred at a friend's house. Patient is experiencing moderate pain. Patient also notes other injury (at the time pt had injury to backand buttocks, now resolved). Pt was seen in ED in [place] and was prescribed a pain medication for her back, which she was unable to fill. PT reports decrease in pain in back and buttocks but persistent pain to arch of foot and medial aspect of foot Pt additionally c/o urinary frequency and urgency, denies dysuria, abdominal pain, flank pain or fever, no vaginal symptoms.. REVIEW OF SYSTEMS The patient complains of mild pain on weight bearing. She has had swelling. No tingling, weakness, numbness, suspected foreign body or skin laceration. PAST HISTORY asthma, ADHD. ADDITIONAL NOTES The nursing notes have been reviewed. PHYSICAL EXAM Vital Signs: Have been reviewed (BP: 114 / 80 sitting (lg adult cuff). HR: 80. RR: 20. Temp: 98.2 oral. ). Head: Head atraumatic. Eyes: Eyes normal inspection. CVS: Normal heart rate and rhythm. Heart sounds normal. Respiratory: No respiratory distress. Breath sounds normal. Abdomen: Abdomen soft and nontender. Back: Soft tissue tenderness (in paralumbar area, No CVA tenderness). Normal inspection. Skin: Skin intact. Skin warm and dry. Extremities: Left medial ankle: mild tenderness and swelling of the medial ligaments. Neurovascularintact distally. No joint effusion. No erythema, laceration, abrasion, ecchymosis or deformity. No limitation in ROM. Left foot, plantar aspect: mild tenderness. Neurovascular intact distally. No erythema, swelling, laceration, abrasion or ecchymosis. No puncture wound or deformity. Foot and ankle exam otherwise negative. Extremities otherwise negative. Gait: Limping gait. Neuro, Vascular and Tendons: Vascular status intact. Sensation intact. Motor intact. Tendon function intact. Neuro: Oriented X 3. No motor deficit. No sensory deficit. LABS, X-RAYS, AND EKG Rt Foot X-ray: No fracture. Normal alignment. Views: 3 view foot series, AP and lateral. The X-rayswere independently viewed by me. Urinalysis: Clean-catch specimen. WBCs present (1 - 5). No RBCs present. Many bacteria/hpf. HCG: Urine HCG negative. PROGRESS AND PROCEDURES E.D. Course: Urine dip positive for nitirites culture sent. ED Attending on duty and available for supervision (Rodo Chavez). Disposition: Condition: stable. Discharged home. CLINICAL IMPRESSION Sprained left foot. Urinary tract infection. INSTRUCTIONS (return immediately to ED or to [facility] for fever or vomiting.). Prescription Medications: Bactrim DS 800 mg / 160mg: take 1 tablet orally every 12 hours for 3 days. No refill. Naproxen 500 mg tablets: take 1 orally every 12 hours as needed for pain. Dispense twenty (20). No refills. Follow-up: Follow up with your doctor in two days as scheduled. (Electronically signed by Michelle Pacheco, 03/12/2009 0:29) Brody KESHA Pickard VisitID: [id number] Date: 03/10/2009 03/12/2009 19:15 urine culture greater than 100,000 CFU/ml E.coli and less than 10,000 CFU/ml gram positive organism. patient on bactrim. susceptible tobactrim. signed by Scott Carey N.P. - 03/12/2009 19:15) Care Center - Nursing Summary Registration Date/Time: 03/10/2009 14:21 TRIAGE Initial Assessment Triage time 15:10. BP: 114 / 80 sitting (lg adult cuff). HR: 80. RR: 20. Temp: 98.2 oral. --151 Kamryn Orona L.P.N.. Medications Adderall. Albuterol Inhaler, as needed. Effexor. Ibuprofen. --1519 Colten Roper.P.N.. Allergies CODEINE. --151 Kamryn Orona L.P.N.. History Chief Complaint: BACK PAIN. Onset (). Pain level now: 10. (foot 10/10). The patient has had trouble walking. History of recent trauma (fell down 10 stairs). (frequent ,urgent urination pt states she was not tx for bladder s/s). PAST HX: No infectious disease exposure. (Facial surg). Tetanus status: unknown. SOCIAL HX: Cigarette smoker: less than 1 pack per day. Occasional alcohol use. No report of abuse. Arrived by private vehicle. Historian: patient. --1519 Kamryn Orona L.P.NBlair (pt reports being seen in an ER In [place] for fall and urinary s/s on 02/26/09). --1521 Woody RoperPBlairN.. PAST HX. PHYSICAL ASSESSMENT Alert. Appears in no acute distress. Limited ROM of the back. --1519 Woody RoperPBlairN.. NURSING PROGRESS NOTES Checked patient name and birthdate. Patient gowned. Call light placed in reach. Patient ready for evaluation- chart flagged. --1519 Woody RoperP.N. Clean catch urine collected; sample sent to lab for urinalysis and HCG. Urine dipstick, clean catchsample: nitrite weakly positive and small protein; negative for blood, leukocyte esterase, glucose,ketones and bilirubin. --1537 Woody RoperPBlairNBlair Care transferred and report given (REUBEN Zambrano). --1704 Kamryn Orona L.P.NBlair (Culture added to urine sample at lab). --1705 Woody RoperPBlairN. 3 inch carlos bandage applied to left ankle and left foot. --1724 Radha Titus, . DISPOSITION / DISCHARGE Condition at departure: unchanged. Patient reports pain level on departure as 10/10. No learning barriers present. Discharge instructions reviewed with the patient. Reviewed warnings (reviewed with patient). Reviewed medication dosing and course; prescription (s) given to the patient. Patient verbalized understanding. Written instructions provided in Serbian. The patient was discharged home. The patient left the Emergency Department ambulatory and via private vehicle. Patient driving. --1727 Janene Zambrano L.P.N.. Locked/Released at 03/10/2009 17:25 by Janene Zambrano L.P.N. documented in this encounter Plan of Treatment Not on file documented as of this encounter Visit Diagnoses Not on filedocumented in this encounter Care Teams Otm Consultant Relationship Specialty Start Date End Date Betsy Perez MD [address] [place] [phone] PCP - General 01/09/10 09/16/11 Carlos Damian MD [address] [phone] PCP - General 01/02/10 01/08/10 Nicky Fernandez APRN PCP - General 12/30/09 01/01/10 Betsy Perez MD [address] [place] [phone] PCP - General 08/08/09 12/29/09 Betsy Perez MD [address] [place] [phone] PCP - General 04/23/09 08/07/09 Nicky Fernandez APRN PCP - General 03/24/09 04/22/09 documented as of this encounter
--- OUTSIDE RECORDS SUMMARY | 2024-07-02 18:56 | XMS_ITS | Encounter Summary ---
Author Organization [facility] Address [address] [place] [address] Care Team Providers Care Counseling Case Manager Name Role Phone Unavailable Primary Care Provider Unavailabl e Encounter Details Date Type Department Care Team (Late st Contact Info) Description 03/25/2006 15:01 EDT Hospital Encounter [address] [address] Ai Costa MD [address] [place] [address], [address] [place] [address] Discharge Disposition: Auto Discharge Social History Tobacco [...] Procedure Name Priority Date/Time Associated Diagnosis Comments PTT Routine 03/25/2006 16:25 EDT PROTIME Routine 03/25/2006 16:25 EDT COMPLETE BLOOD COUNT AND DIFFERENTIAL Routine 03/25/2006 16:25 EDT QUANT BETA HCG, Routine 03/25/2006 16:25 EDT COMPREHENSIVE METABOLIC PANEL (CMP) Routine 03/25/2006 16:25 EDT documented in this encounter Results * PTT (03/25/2006 16:25 EDT) PTT 28 20 - 35 secs [facility] Comment:Therapeutic Heparin range: 70-105 seconds 03/25/2006 16:2 5 EDT 03/25/2006 16:29 EDT Ai Costa MD HEMATOLOGY & PF4 ORD ERABLES Performing Organization Address [facility] de Phone Number [facility] [address] [place] [address] * PROTIME (03/25/2006 16:25 EDT) Pro Time 14.4 12.0 - 15.0 secs [facility] I.N.R. 1.1 0.9 - 1.1 Ratio [facility] Comment: Moderate Intensity Coumadin INR = 2.0-3.0 Adjustments in anticoagulant therapy dose should be based upon the INR and NOT the Pro Time. 03/25/2006 16:2 5 EDT 03/25/2006 16:29 EDT Ai Costa MD HEMATOLOGY & PF4 ORD ERABLES Performing Organization Address [facility] de Phone Number [facility] [address] [place] [address] * HCG (03/25/2006 16:25 EDT) Pathologist [facility] HCG <4 <4 mIU/ml [facility] Comment: Reference Range: Positive = >10 Borderline = 4-10 recommend repeat. Negative = <4 03/25/2006 16:2 5 EDT 03/25/2006 16:29 EDT Ai Costa MD CHEMISTRY & BLOOD GA S ORDERABLES Performing Organization Address [facility] de Phone Number [facility] [address] [place] [address] * COMPREHENSIVE METABOLIC PANEL (03/25/2006 16:25 EDT) Potassium 3.7 3.5 - 5.0 mEq/L [facility] Sodium 137 136 - 145 mEq/L [facility] Chloride 107 96 - 110 mEq/L [facility] CO2 24 24 - 32 mEq/L [facility] Total Alkaline Phosphatase 73 38 - 126 U/L [facility] Bilirubin, Total <0.5 0.2 - 1.3 mg/dl [facility] AST 29 15 - 46 U/L [facility] ALT 35 9 - 52 U/L [facility] Albumin 3.9 3.4 - 4.9 g/dl [facility] Total Protein 6.8 6.5 - 8.3 g/dl [facility] Creatinine 0.9 0.7 - 1.5 mg/dl [facility] BUN 19 10 - 26 mg/dl [facility] Calcium 9.5 8.5 - 10.5 mg/dl [facility] Calculated Calcium 10.0 8.5 - 10.5 mg/dl [facility] Glucose, Serum 85 70 - 100 mg/dl [facility] Fasting? No [facility] Albumin/Globulin Ratio 1.3 [facility] 03/25/2006 16:2 5 EDT 03/25/2006 16:29 EDT Ai Costa MD CHEMISTRY & BLOOD GA S ORDERABLES Performing Organization Address City/State/[facility] Co de Phone Number [facility] [address] [place] [address] * (ABNORMAL) HEMAGRAM AND DIFFERENTIAL (03/25/2006 16:25 EDT) WBC 10.37 4.0 - 12.4 K/cmm [facility] RBC 4.55 3.86 - 5.04 M/cmm [facility] Hemoglobin 13.6 11.6 - 15.2 gm/dl [facility] HCT 39.8 34.9 - 44.4 % [facility] MCV 88 81 - 98 fl [facility] MCH 29.8 26.7 - 33.3 pg [facility] MCHC 34.1 32.1 - 35.9 gm/dl [facility] PLT 293 141 - 320 K/cmm [facility] RDW-CV 12.1 11.7 - 14.6 % [facility] % Neutrophils 60.2 45.5 - 79.7 % [facility] % Lymphocytes 33.4 15.0 - 46.8 % [facility] % Monocytes 4.3 1.8 - 12.0 % [facility] % Eosinophils 1.7 0.6 - 6.9 % [facility] % Basophils 0.4 0.2 - 1.4 % [facility] ABS Neutrophils 6.24 2.20 - 8.85 K/cmm [facility] ABS Lymphs 3.46(H) 1.09 - 3.30 K/cmm [facility] ABS Monocytes 0.45 0.1 - 0.8 K/cmm [facility] ABS Eosinophils 0.18 0.03 - 0.61 K/cmm [facility] ABS Basophils 0.04 0.01 - 0.11 K/cmm [facility] Type of Diff: Automated [facility] 03/25/2006 16:2 5 EDT 03/25/2006 16:29 EDT Ai Costa MD PACKAGES & DNA PROBE ORDERABLES Performing Organization Address City/State/[facility] Co de Phone Number [facility] [address] [place] [address] documented in this encounter Visit Diagnoses Not on filedocumented in this encounter
--- OUTSIDE RECORDS SUMMARY | 2024-07-02 18:56 | XMS_ITS | Encounter Summary ---
Author Organization [facility] Address [address] [place] [address] Care Team Providers Care Adhesive Bonding Machine Operator Name Role Phone Betsy Perez MD Primary Care Provider [phone] Carlos Damian MD Primary Care Provider + [phone] Nicky Fernandez APRN Primary Care Provider Unava ilable Betsy Perez MD Primary Care Provider [phone] Betsy Perez MD Primary Care Provider [phone] Nicky Fernandez APRN Primary Care Provider Unava ilable Encounter Details Date Type Department Care Team (Late st Contact Info) Description 07/08/2007 Results Only [facility] [address] [place] [address] Emergency, MD [place] Social History Tobacco Use Types Packs/Day Years [...] Name Priority Date/Time Associated Diagnosis Comments GROUP A STREP CULTURE Routine 07/08/2007 23:00 EDT documented in this encounter Results * PHARYNGITIS CULTURE (07/08/2007 23:00 EDT) Specimen Description Throat [facility] Result NO GROUP A BETA STREPTOCOCCI ISOLATED [facility] Report Status Final [id number] [facility] 07/08/2007 23:0 0 EDT 07/08/2007 23:28 EDT Default Emergency MICROBIOLOGY - GENE RAL ORDERABLES [facility] [address] [place] [address] documented in this encounter Visit Diagnoses Not on filedocumented in this encounter Care Teams Adhesive Bonding Machine Operator Relationship Specialty Start Date End Date Betsy Perez MD [address] [place] [phone] PCP - General 01/09/10 09/16/11 Carlos Damian MD 7 [facility] [address] [place] [phone] PCP - General 01/02/10 01/08/10 Nicky Fernandez, REFRIGERATION SERVICE TECHNICIAN PCP - General 12/30/09 01/01/10 Betsy Perez MD [address] [place] [phone] PCP - General 08/08/09 12/29/09 Betsy Perez MD [address] [place] [phone] PCP - General 04/23/09 08/07/09 Nicky Fernandez, REFRIGERATION SERVICE TECHNICIAN PCP - General 03/24/09 04/22/09 documented as of this encounter
--- OUTSIDE RECORDS SUMMARY | 2024-07-02 18:56 | XMS_ITS | Encounter Summary ---
Author Organization [facility] Address [address] [place] [address] Care Team Providers Care Operations Research Group Manager Name Role Phone Betsy Perez MD Primary Care Provider [phone] Betsy ePrez MD Primary Care Provider [phone] Nicky Fernandez APRN Primary Care Provider Unava ilable Encounter Details Date Type Department Care Team (Late st Contact Info) Description 03/25/2006 Before PRISM Converted Visit (Maple) [facility] - [facility] conversion [address] [place] [address] iA Costa MD [address] [facility] [place] [address] [place] [address] Social History Tobacco Use Types Packs/Day Years Used Date Smoking Tobacco: Never Assessed Sex and Gender Information Value Date Recorded Sex Assigned at Female 05/03/2022 19:33 EDT Gender Identity Female 05/02/2020 15:51 EDT Sexual Orientation Straight 05/03/2022 19 :33 EDT documented as of this encounter Plan of Treatment Not on file documented as of this encounter Visit Diagnoses * Evaluation - Ai Costa MD - 11/05/[address] [facility] Division of Gynecologic Oncology [facility] [place] [address] [place] [address] March 25, 2006 Rachel Gonzalez NP [facility] [address] [facility] [address] Dear Rachel, Thank you very much for allowing me to consult on your patient, Ms. 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 As you know,she is a 25-year-old para 1, who recently presented to your officebecause of worsening vulvar condyloma. According to the patient she has had the condyloma for approximately 4-1/2 years, at that time, according to the patient, it was a significantly smaller size, and it has progressively increased in size. At this time,it is causing her pain in the lower vulvar area, but she denies any abnormal bleeding or discharge. Past OB history: One normal spontaneous vaginal delivery. Past PRODUCE CLERK history: She has had two to three elective terminations. She is currently on Depo-Provera,and her last menstrual period was on February 13, 2006. Past medical history: Significant for mild asthma. She has never had any intubations, or required medication. Past surgical history: Plastic surgery on her face. ALLERGIES: None. Current medications: None. Social history: Significant for cigarette use of one pack per day. Family history: Significant for a mother who had lymphoid cancer and a grandmother who had lung cancer. Review of systems: As documented in the nursing sheet. Physical exam: Vital signs as documented in the nursing sheet. HEENT: Normocephalic, atraumatic. Lungs are clear. Heart is S1, S2. Abdomen is soft and nontender, nondistended, no rebound or guarding.the umbilicus she has evidence of condyloma. Pelvic exam, external genitalia demonstrates that she has evidence of condyloma on the left labia minora, she also has condylomaon the posterior fourchette, both the right and left side and she also has significant condyloma in the perianal area. The vaginal introitus appears to be free of any gross disease. extremities demonstrate no cyanosis, clubbing or edema. Today, I had a very lengthy discussion with Ms. Fragoso with regards to her condyloma and Ms. Fragoso has explained to me that she, at this time, isin significant pain from the condyloma and she wants tohave surgical therapy. I explained to Ms. Fragoso that surgical therapy is a reasonable option for her and I have used a mirror to describe to her the areas that would be resected. At this time given the size of some of these lesions, it would be too large for her to undergo laser vaporization. I have clearly explained to Ms. Fragoso the potential complications to resecting these areas given the factthat the largest ones are near the perianal canal, my concerns are the possibility of wound breakdown, infection, and poor healing. The risks and benefits were fully discussed with Ms. Fragoso and I clearly explained to her that there is a great likelihood that these lesions may recur. After a lengthy discussion of the risks, benefits, and treatment options she states that she understood, and she signed a consent form for excision of the condyloma lesions and at her request we will be doing this on April 17, 2006. Today, Tiffani Pinon our nurse has proceeded with the preoperative teaching for her. As always, I thank you very much for allowing me to participate in the care of your patient. I willkeep you informed of her progress. Sincerely and respectfully, Signed by Ai Costa MD 03/27/2006 11:50 ALDEN Arceirector, Division of Gynecologic OncologyiA Costa MD Ai Costa MD Director, Division of Gynecologic Oncology - Ai Costa MD P - dis Job ID: [id number] Document ID: [id number] cc: Rachel Gonzalez NP documented in this encounter Care Teams Operations Research Group Manager Relationship Specialty Start Date End Date Betsy Perez MD [address] [place] [phone] PCP - General 08/08/09 12/29/09 Betsy Perez MD [address] [place] [phone] PCP - General 04/23/09 08/07/09 Nicky Fernandez APRN PCP - General 03/24/09 04/22/09 documented as of this encounter
--- OUTSIDE RECORDS SUMMARY | 2024-07-02 18:56 | XMS_ITS | Encounter Summary ---
Author Organization [facility] Address [address] [place] [address] Care Team Providers Care Supervisor Aluminum Fabrication Name Role Phone Unavailable Primary Care Provider Unavailabl e Encounter Details Date Type Department Care Team (Latest Contact Info) Description 08/23/2005 2:37 EDT - 08/23/2005 11:[address] [facility] Emergency Department - [address] [address] Emergency, Default, MD Discharge Disposition: Home or [...] Date/Time Associated Diagnosis Comments HOLD SST Routine 08/23/2005 4:10 EDT COMPLETE BLOOD COUNT AND DIFFERENTIAL Routine 08/23/2005 4:10 EDT N. GONORRHOEAE AMPLIFIED PROBE Routine 08/23/2005 4:00 EDT ZZCHLAMYDIA TRACHOMATIS AMPLIFIED PROBE Routine 08/23/2005 4:00 EDT documented in this encounter Results * HOLD SST (08/23/2005 4:10 EDT) Hold SST Hold for further testing. Specimen will be held for 30 days. [facility] 08/23/2005 4:10 EDT 08/23/2005 4:13 EDT Default Emergency MD LAB INFO SERVICE AN D SUPPORT & PHONE RESULT [facility] [address] [place] [address] * HEMAGRAM AND DIFFERENTIAL (08/23/2005 4:10 EDT) WBC 11.45 4.0 - 12.4 K/cmm [facility] RBC 4.58 3.86 - 5.04 M/cmm [facility] Hemoglobin 13.9 11.6 - 15.2 gm/dl [facility] HCT 40.3 34.9 - 44.4 % [facility] MCV 88 81 - 98 fl [facility] MCH 30.3 26.7 - 33.3 pg [facility] MCHC 34.4 32.1 - 35.9 gm/dl [facility] PLT 289 141 - 320 K/cmm [facility] RDW-CV 12.2 11.7 - 14.6 % [facility] Neutrophils 74.0 45.5 - 79.7 % [facility] Lymphocytes 19.0 15.0 - 46.8 % [facility] Monocytes 6.0 1.8 - 12.0 % [facility] Eosinophils 1.0 0.6 - 6.9 % [facility] ABS Neutrophils 8.47 2.20 - 8.85 K/cmm [facility] ABS Lymphs 2.18 1.09 - 3.30 K/cmm [facility] ABS Monocytes 0.69 0.1 - 0.8 K/cmm [facility] ABS Eosinophils 0.11 0.03 - 0.61 K/cmm [facility] RBC Morphology [facility] Type of Diff: Manual [facility] 08/23/2005 4:10 EDT 08/23/2005 4:13 EDT Default Emergency MD PACKAGES & DNA PROB E ORDERABLES Performing Organization Address [facility] Co de Phone Number [facility] [address] [place] [address] * N. GONORRHOEAE AMPLIFIED PROBE (08/23/2005 4:00 EDT) Result No Neisseria gonorrhoeae DNA detected by registered vascular technologist (rvt) mediated amplification. [facility] Report Status Final [id number] [facility] Specimen Description Cervix [facility] 08/23/2005 4:00 EDT 08/23/2005 6:50 EDT Default Emergency MICROBIOLOGY - GENE RAL ORDERABLES Performing Organization Address [facility] de Phone Number [facility] [address] [place] [address] * CHLAMYDIA TRACHOMATIS AMPLIFIED PROBE (08/23/2005 4:00 EDT) Specimen Description Cervix [facility] Result No Chlamydia trachomatis DNA detected by registered vascular technologist (rvt) mediated amplification. [facility] Report Status Final [id number] [facility] 08/23/2005 4:00 EDT 08/23/2005 6:50 EDT Default Emergency MICROBIOLOGY - GENE RAL ORDERABLES Performing Organization Address [facility] Co de Phone Number [facility] [address] [place] [address] documented in this encounter Visit Diagnoses Not on filedocumented in this encounter
--- OUTSIDE RECORDS SUMMARY | 2024-07-02 18:56 | XMS_ITS | Encounter Summary ---
Author Organization [facility] Address [address] [place] [address] Care Team Providers Care Marine Engineering Technicians Name Role Phone Betsy Perez MD Primary Care Provider [phone] Carlos Damian MD Primary Care Provider + [phone] Nicky Fernandez APRN Primary Care Provider Unava ilable Betsy Perez MD Primary Care Provider [phone] Betsy Perez MD Primary Care Provider [phone] Nicky Fernandez APRN Primary Care Provider Unava ilable Encounter Details Date Type Department Care Team (Late st Contact Info) Description 10/22/2005 Office Visit [facility] - [facility] conversion [address] [place], [place] [phone] Halina Fraga MD [address] [facility], [address] [place] [address] Social History Tobacco Use Types Packs/Day Years Used Date Smoking Tobacco: Never Assessed Sex and Gender Information Value Date Recorded Sex Assigned at Female 05/03/2022 19:33 EDT Gender Identity Female 05/02/2020 15:51 EDT Sexual Orientation Straight 05/03/2022 19 :33 EDT documented as of this encounter Progress Notes * Halina Fraga MD - 01/25/2010 1313 EST Department - Physician Summary Registration Date/Time: 10/22/2005 0:12 Arrived- By private vehicle. Historian - patient. HISTORY OF PRESENT ILLNESS Chief Complaint: JAW PAIN TORRES and vomiting. This started today and is still present (Pt notes onset of right sided lower jaw pain, nause and vomiting and then mirgraine TORRES with more vomiting). Pain described as moderate. She has had swelling of the jaw and jaw pain. No sore throat, mouth sores, nasal discharge or congestion or ear pain. No toothache, swollen face or facial pain. The patient has had similar symptoms twice previously. These were as bad. Not recently seen/assessed. REVIEW OF SYSTEMS The patient has had nausea and vomiting and notes having headache. No fever, eye discomfort, cough,difficulty breathing or chest pain. No diarrhea, abdominal pain, difficulty with urination, fainting episodes or joint pain. No skin rash or enlarged lymph nodes. PAST HISTORY Asthma. Medications: ( albuterol). Allergies: ( nkda). SOCIAL HISTORY Smoker. The patient drinks occasionally. ADDITIONAL NOTES The nursing notes have been reviewed. PHYSICAL EXAM Appearance: Alert. Anxious. Patient in moderate distress. Vital Signs: The vital signs have been reviewed - Head: Mild swelling of the right mandible (small 1cm independent entity along right mandibular body, tender, ). No facial erythema. No maxillary swelling. Eyes: No conjunctival findings. ENT: Ears normal. Nose normal. No trismus. ( intact dentition, no abcess in gumline). No pharyngealerythema, mouth ulcerations, tonsillar exudate or dental decay or tenderness. Neck: Normal inspection. Trachea midline. No adenopathy. Thyroid normal. Neck supple. CVS: Normal heart rate and rhythm. Heart sounds normal. Pulses normal. Respiratory: No respiratory distress. Breath soundsnormal. Chest nontender. Abdomen: Abdomen soft and nontender. No organomegaly. Skin: Normal skin color. No rash. Extremities: Extremities exhibit normal ROM. Extremities nontender. Neuro: Oriented X 3. No motor deficit. No sensory deficit. PROGRESS AND PROCEDURES E.D. Course: Actively vomiting will compazine for nausea and TORRES, will toradol forjaw pain and consider IV antbiotics due to vomiting for likely early dental issue pt also with crying and now stufy nose, stating she cannot lay down from so much nasal fullness cannot breath sat 100, able to speak in long paragraphs- reassurance, blew nose. Patient/family counseled. Disposition: Discharged home. Condition: stable. CLINICAL IMPRESSION Dental abscess (jaw pain ?early). Migraine headache . INSTRUCTIONS Do not work today. Drink plenty of fluids. Rest tonight, take clindamycin for possible dental infection. Warnings: Further evaluation isnecessary (Dental eval). SEDATIVE MEDICATION: You were given sedative medication in the emergency department. Do not drive or operate dangerous machinery. GENERAL WARNINGS: Return or contact your physician immediately if your condition worsens or changesunexpectedly, if not improving as expected, or if other problems arise. Prescription Medications: Cleocin 300 mg: take 1 capsule orally every 6 hours for 7 days. No refills. Generic substitute OK. Follow-up: Follow up with your doctor call your Dentist in am for recheck the end of the week, or use Dental clinic at [facility]. (Electronically signed by Halina Fraga M.D. 10/27/2005 7:17) Department - Nursing Summary Registration Date/Time: 10/22/2005 0:12 TRIAGE Initial Assessment Triage time 00:13 2004 --001 Leann Miller R.N. BP: 113 / 63 HR: 100 RR: 20 Temp: 36.5 C (tympanic). --0016 Leann Miller R.N. Medications Albuterol Inhaler : prn. --0015 Leann Miller R.N. . Allergies No known drug allergies. --0016 Leann Miller R.N. History Chief Complaint: (rt lower jaw pain/migraine/nausea and vomiting). Onset- 1 weeks ago Pain level now: 09/03. The patient has had fever. Reports muscle aches. Treatment CAR SHAGGER: (exedrin migraine-vomited). PAST HX: Asthma. SOCIAL HX: Smoker. The patient admits to drinking alcohol occasionally. Historian: patient. --0016 Leann Angela, R.N. NURSING PROGRESS NOTES Progress Patient identifiers checked. CLINDAMYCIN 900mg IVPB over 30 minutes. IV patency established. IV site checked: no pain, redness, or swelling. IV flushed thoroughly pre- and post-medication administration. Allergic reaction warning given to patient. . PROCHLORPERAZINE 10 mg diluted with NS slow IVP over 5 minutes. IV patency established. IV site checked: no pain, redness, or swelling. IV flushed thoroughly pre- and post-medicationadministration. . Call light placed in reach. Side rails up x 2. Bed placed in lowest position. Brakes of bed on. --101 Leann Miller R.N. HR: 106 RR: 20 O2 saturation: 100% room air (Pt called for nurse, staing can't breathe. Pt requests albuterol treatment.). --106 Ellen Lin R.N. Reassessment after fluids administered and medication administered. The patient is sleeping. --012Leann Miller R.N. KETOROLAC 15 mg diluted with NS slow IVP over 1 minute. --015 Leann Miller R.N. (Pt states h/a and nausea gone, med with toradol for jaw pain, pt declines morphine.). --015 Leann Miller R.N. . IV / I&O Flowsheet IV site #1: location left antecubital space. Started: 20g angiocath; aseptic technique used; good blood return noted; one attempt. IV fluid started- #1 bag 1000 mL. --010 Leann Miller R.N. IV fluid bag #1 discontinued (1000 mL absorbed). --015 Leann Miller R.N. IV site discontinued: IV catheter intact, dressing applied. --157 Leann Miller R.N. DISPOSITION / DISCHARGE BP: 133 / 74 HR: 91 RR: 18 Condition at departure: improved and stable. No barriers to learning present. Discharge instructions reviewed with the patient. Patient verbalized understanding. Written instructionsprovided in Malay. The patient was discharged home. The patient left the Emergency Department ambulatory and via taxi. --157 Darron Kessler R.N. Lin, R.N. Locked/Released at 10/22/2005 2:00 by Leann Miller R.N. documented in this encounter Plan of Treatment Not on file documented as of this encounter Visit Diagnoses Not on filedocumented in this encounter Care Teams Marine Engineering Technicians Relationship Specialty Start Date End Date Betsy Perez MD [address] [place] [phone] PCP - General 01/09/10 09/16/11 Carlos Damian MD [address] [place] [phone] PCP - General 01/02/10 01/08/10 Nicky Fernandez APRN PCP - General 12/30/09 01/01/10 Betsy Perez MD [address] [place] [phone] PCP - General 08/08/09 12/29/09 Betsy Perez MD [address] [place] [phone] PCP - General 04/23/09 08/07/09 Nicky Fernandez APRN PCP - General 03/24/09 04/22/09 documented as of this encounter
--- OUTSIDE RECORDS SUMMARY | 2024-07-02 18:56 | XMS_ITS | Encounter Summary ---
Author Organization [facility] Address [address] [place] [address] Care Team Providers Care Casing Operator Name Role Phone Unavailable Primary Care Provider Unavailabl e Encounter Details Date Type Department Care Team (Late st Contact Info) Description 12/23/2007 13:12 EST Hospital Encounter [facility] - Other [address] [place] [address] Moises Easley MD [address] [place] [address] [address] [place] [phone] Nicky Fernandez, DELMI Discharge Disposition: Home or Self Care Social [...]
--- OUTSIDE RECORDS SUMMARY | 2024-07-02 18:56 | XMS_ITS | Encounter Summary ---
Author Organization [facility] Address [address] [place] [address] Care Team Providers Care Practicing Md Anesthesiologist Name Role Phone Betsy Perez MD Primary Care Provider [phone] Carlos Damian MD Primary Care Provider + [phone] Nicky Fernandez APRN Primary Care Provider Unava ilable Betsy Perez MD Primary Care Provider [phone] Betsy Perez MD Primary Care Provider [phone] Nicky Fernandez APRN Primary Care Provider Unava ilable Encounter Details Date Type Department Care Team (Late st Contact Info) Description 07/08/2007 Office Visit [facility] - [facility] [address], [place] [address] Brad Augustin MD [address] [facility], [address] [place] [phone] Social History Tobacco Use Types Packs/Day Years Used Date Smoking Tobacco: Never Assessed Sex and Gender Information Value Date Recorded Sex Assigned at Female 05/03/2022 19:33 EDT Gender Identity Female 05/02/2020 15:51 EDT Sexual Orientation Straight 05/03/2022 19 :33 EDT documented as of this encounter Progress Notes * Brad Augustin IV, MD - 01/15/2010 0342 EST Department - Physician Summary Registration Date/Time: 07/08/2007 22:44 Time Seen; upon arrival. Arrived- By private vehicle. Historian- patient. HISTORY OF PRESENT ILLNESS Chief Complaint: COUGH and SORE THROAT. This started several days ago and is still present. It has been constant. The illness is described as moderate. She has had sputum production, a cough, difficulty breathing, a sore throat and nasal congestion. The patient has had sinus pressure, fever and chills. No chest discomfort or pain, muscle aches, hoarseness or nasal discharge. No sinus drainage or ear pain. The patient has had similar symptoms once previously. Not recently seen/assessed. REVIEW OF SYSTEMS No headache, eye discomfort, nausea, vomiting or diarrhea. No abdominal pain. All systems otherwisenegative, except as recorded above. PAST HISTORY See nurses notes. Asthma. Medications: The patient's medications have been reviewed. Allergies: The patient's allergies have been reviewed. SOCIAL HISTORY Smoker. FAMILY HISTORY Negative. ADDITIONAL NOTES The nursing notes have been reviewed. PHYSICAL EXAM Appearance: Alert. No acute distress. Vital Signs: Have been reviewed. Eyes: Pupils equal, round and reactive to light. ENT: Pharynx normal. Neck: Neck supple. CVS: Normal heart rate and rhythm. Heart sounds normal. Respiratory: No respiratory distress. Breath sounds normal. Abdomen: Abdomen soft and nontender. Skin: Normal skin color and turgor. Skin warm and dry. No rash. Extremities: Extremities exhibit normal ROM. No lower extremity edema. Neuro: Oriented X 3. LABS, X-RAYS, AND EKG Pulse Oximetry: O2 saturation- 97% (FIO2 - room air). Interpretation: normal. PROGRESS AND PROCEDURES E.D. Course: Albuterol nebulizer treatment. Atrovent nebulizer treatment. Azithromycin given PO. Patient/family counseled. Old medical records ordered. Disposition: Discharged home. Discharged home in good condition. CLINICAL IMPRESSION Acute asthma exacerbation. Acute pharyngitis. Upper respiratory infection. INSTRUCTIONS Take Tylenol (Acetaminophen) or Motrin (Ibuprofen) as needed for fever control. Take medication according to label instructions. No restrictions to activity. Warnings: Further evaluation is necessary. GENERAL WARNINGS: Return or contact your physician immediately if your condition worsens or changesunexpectedly, if not improving as expected, or if other problems arise. Your Current Medications: Continue current medications. Prescription Medications: Albuterol HFA oral inhaler: inhale 1 to 2 puffs every four to six hours as needed for difficulty breathing. Dispense 1 unit. No refills. Azithromycin 250 mg tablets: take 1 orally every day for 4 days. Total course 4 days. No refills. OTC Medications: Motrin (available over the counter): take according to label instructions. Follow-up: Follow up with your doctor if not better. Understanding of the discharge instructions verbalized by patient. (Electronically signed by Zaire Augustin MD 07/11/2007 2:11) Department - Nursing Summary Registration Date/Time: 07/08/2007 22:44 TRIAGE Initial Assessment Triage time 22:45. Acuity: LEVEL 4. BP: 127 / 65. HR: 88. RR: 16. Temp: 36.5 tympanic. Alert. No acute distress. --2248 Nicolás Chun R.N. O2 saturation: 98 % room air. --2249 Nicolás Chun R.N.. Medications Albuterol Inhaler (ran out). Benadryl Tablets, as needed. (day quil). --2248 Nicolás Chun R.N.. Allergies No known drug allergies. --2248 Nicolás Chun R.N.. History Chief Complaint: RUNNY NOSE and SORE THROAT. Onset (about 4 days). Pain level now: 5/10. PAST HX: Asthma. No infectious disease exposure. (facial surgery as child). SOCIAL HX: Smoker. No alcohol use. Functional assessment: no impairments noted. The nutritional risk assessment revealed no deficiencies. No report of abuse. Arrived by private vehicle and unaccompanied. Historian: patient. --2249 Nicolás Chun R.N.. PAST HX. PHYSICAL ASSESSMENT Alert. Appears in no acute distress. Oriented X 3. --2249 Nicolás Chun R.N.. NURSINGPROGRESS NOTES Call light placed in reach. Side rails up x 1. Bed placed in lowest position. Patient ready for evaluation. --2303 Nicolás Chun R.N. Throat swab obtained (per ). --2339 Tawny Brice ATROVENT nebulizer treatment (1 unit dose) with ALBUTEROL (1 unit dose) given by nurse. . --2340 Tawny Brice, ZITHROMAX 500 mg PO. . --2340 Tawny Brice, ALBUTEROL inhaler to go home. . --2340 Tawny Brice, PERCOCET one starter pack to pt. ([id number]) PO. Sedative drug warning given to the patient. . --2341 Tawny Brice, . DISPOSITION / DISCHARGE BP: 125 / 69. HR: 91. RR: 20. O2 saturation: 100% room air. Patient reports pain level on departureas 03/04. Condition at departure: improved and stable. Fall risk assessment completed. No fall risk identified. No learning barriers present. Discharge instructions reviewed with the patient. Reviewedwarnings (sedation). Reviewed medication. Reviewed referrals. Reviewed diet (increase fluids). Patient verbalized understanding. Written instructions provided in Greenlandic. The patient wasdischarged home and accompanied by family. The patient left the Emergency Department ambulatory and via private vehicle. Family member driving. Patient has no belongings. --10 Tawny Brice, . Nicolás Brice, Locked/Released at 07/09/2007 5:58 by Krystal Shields R.N. documented in this encounter Plan of Treatment Not on file documented as of this encounter Visit Diagnoses Not on filedocumented in this encounter Care Teams Practicing Md Anesthesiologist Relationship Specialty Start Date End Date Betsy Perez MD [address] [place] [phone] PCP - General 01/09/10 09/16/11 Carlos Damian MD [address] [phone] PCP - General 01/02/10 01/08/10 Nicky Fernandez, DELMI PCP - General 12/30/09 01/01/10 Betsy Perez MD [address] [place] [phone] PCP - General 08/08/09 12/29/09 Betsy Perez MD [address] [place] [phone] PCP - General 04/23/09 08/07/09 Nicky Fernandez, [employer] PCP - General 03/24/09 04/22/09 documented as of this encounter
--- OUTSIDE RECORDS SUMMARY | 2024-07-02 18:56 | XMS_ITS | Encounter Summary ---
Author Organization [facility] Address [address] [place] [address] Care Team Providers Care Control Equipment Electrician Name Role Phone Betsy Perez MD Primary Care Provider [phone] Carlos Damian MD Primary Care Provider + [phone] Nicky Fernandez APRN Primary Care Provider Unava ilable Betsy Perez MD Primary Care Provider [phone] Betsy Perez MD Primary Care Provider [phone] Nicky Fernandez APRN Primary Care Provider Unava ilable Encounter Details Date Type Department Care Team (Late st Contact Info) Description 04/14/2008 Office Visit [facility] - [facility] [address] [place] [address] Halina Hansen, [place] [address] [place] [phone] Social History Tobacco Use Types Packs/Day Years Used Date Smoking Tobacco: Never Assessed Sex and Gender Information Value Date Recorded Sex Assigned at Female 05/03/2022 19:33 EDT Gender Identity Female 05/02/2020 15:51 EDT Sexual Orientation Straight 05/03/2022 19 :33 EDT documented as of this encounter Progress Notes * Halina De La Cruz - 01/13/2010 1522 EST Department - Physician Summary Registration Date/Time: 04/14/2008 21:01 Time Seen: 21:13. Arrived- By private vehicle. Historian- patient. HISTORY OF PRESENT ILLNESS Chief Complaint: SORE THROAT. This started 1 1/2 weeks ago and is still present. Pain described as moderate. She has had a sore throat and nasal congestion. No toothache. Patient hasnot had similar symptoms previously. The patient was seen recently in the office (pt states she has been to pmd saturday and had negative culture done, continues to have pain in throat and cough). REVIEW OF SYSTEMS The patient has had a cough and difficulty breathing. No fever, chest pain, nausea, headache or joint pain. No vomiting. PAST HISTORY anxiety/depression. Medications: The patient's medications have been reviewed. See nurses notes. Allergies: No known drug allergies. SOCIAL HISTORY Smoker. ADDITIONAL NOTES The nursing notes have been reviewed. PHYSICAL EXAM Appearance: Alert. No acute distress. Vital Signs: Have been reviewed (BP: 117 / 55. HR: 105 regular. RR: 16 regular. Temp: 35.7 tympanic). Head: Normal external inspection. ENT: Ears normal. Nose normal. Pharynx normal. Lips normal. Gums normal. No trismus. (post nasal drip noted in posterior pharynx). Neck: Normal inspection. Trachea midline. No adenopathy. Thyroid normal. Neck supple. CVS: Normal heart rate and rhythm. Heart sounds normal. Pulses normal. Respiratory: No respiratory distress. Breath sounds normal. Chest nontender. Skin: Normal skin color and turgor. No rash. Extremities: Extremities exhibit normal ROM. Extremities nontender. Neuro: Oriented X 3. No motor deficit. No sensory deficit. PROGRESS AND PROCEDURES Patient/family counseled. ED Attending on duty and available for supervision: Sonido Augustin. Disposition: Condition: good. Discharged home. CLINICAL IMPRESSION Viral upper respiratory infection. INSTRUCTIONS Return to work in two days when better. Drink plenty of fluids. Warnings: GENERAL WARNINGS: Return or contact your physician immediately if your condition worsens or changesunexpectedly, if not improving as expected, or if other problems arise. Your Current Medications: Your current home medications have been reviewed by the Emergency Department physician entry level administrative assistant. No changes in your current home medications are recommended at this time. Continue taking the following medications: effexor, trazadone, advair qd. Prescription Medications: Tessalon 200 mg: take 1 orally every 8 hours as needed for cough. Dispense fifteen (15). No refills. Generic substitute OK. BML solution, (1/3 benadryl, 1/3 maalox, 1/3 viscous lidocaine), swish and swallow 15cc PO Q4 hoursPRN, dispense 6 oz.. OTC Medications: Acetaminophen (available over the counter): take according to label instructions. Motrin (available over the counter): take according to label instructions. Follow-up: Follow up with your doctor in about three days if not better. Understanding of the discharge instructions verbalized by patient. (Electronically signed by HERO Vazquez 04/14/2008 22:51) Department - Nursing Summary Registration Date/Time: 04/14/2008 21:01 TRIAGE Initial Assessment Triage time 21:02. BP: 117 / 55. HR: 105 regular. RR: 16 regular. Temp: 35.7 tympanic. Alert. --2104 Jeanine Singh R.N. Acuity: LEVEL 5. --2104 Sonido GarciaN.. Medications (effexor, trazadone, albuterol MDI (out), advair qd ). --2104 Jeanine Singh R.N.. Allergies No known drug allergies. --2104 Sonido GarciaN.. History Pain level now: 10/10. The patient has had fever and a cough. PAST HX: Negative. (overweight, asthyma ). SOCIAL HX: Smoker: less than 1 pack per day. No alcohol use. No report of abuse. Arrived by private vehicle. (Pt amb to [facility] stating in raspy voice stating that she has had sore throat for 1 1/2 wk. Saw PCP and had culture done which was neg (Saturday). Pt reports fevers. Pt talking in full sentences, no drooling. Was put on abx for sinus infection 2 wks ago. Has been gargling salt water, ibuporphen 800 mg last taken this AM w/o help.). --2104 Jeanine Singh R.N.. NURSING PROGRESS NOTES Call light placed in reach. Bed placed in lowest position. Patient ready for evaluation. --2114 Brenton Sanchez (albuterol inhaler provided to pt.; pt. states she understands usage and frequency ). --2146 Brenton Sanchez. DISPOSITION / DISCHARGE Condition at departure: stable. Patient reports pain level on departure as 6/10. No learning barriers present. Discharge instructions reviewed with the patient. Reviewed medication side effects, precautions and dosing; prescription (s) given to the patient (tessalon pearls #3, albuterol inhaler, swish and swallow provided to pt. at discharge with insctructions on use and understanding verbalized). Patient verbalized understanding. Written instructions provided in Portuguese. The patient was discharged home. The patient left the Emergency Department ambulatory. --2156 Brenton Sanchez. Brenton Pascal R.N. Locked/Released at 04/15/2008 8:01 by Jeanine Crump R.N. documented in this encounter Plan of Treatment Not on file documented as of this encounter Visit Diagnoses Not on filedocumented in this encounter Care Teams Control Equipment Electrician Relationship Specialty Start Date End Date Betsy Perez MD [address] [place] [phone] PCP - General 01/09/10 09/16/11 Carlos Damian MD [address] [place] [phone] PCP - General 01/02/10 01/08/10 Nicky Fernandez APRN PCP - General 12/30/09 01/01/10 Betsy Perez MD [address] [place] [phone] PCP - General 08/08/09 12/29/09 Betsy Perez MD [address] [place] [phone] PCP - General 04/23/09 08/07/09 Nicky Fernandez APRN PCP - General 03/24/09 04/22/09 documented as of this encounter
--- OUTSIDE RECORDS SUMMARY | 2024-07-02 18:56 | XMS_ITS | Encounter Summary ---
Author Organization [facility] Address [address] [place] [address] Care Team Providers Care Corn Popper Name Role Phone Betsy Perez MD Primary Care Provider [phone] Carlos Damian MD Primary Care Provider + [phone] Nicky Fernandez APRN Primary Care Provider Unava ilable Betsy Perez MD Primary Care Provider [phone] Betsy Perez MD Primary Care Provider [phone] Nicky Fernandez APRN Primary Care Provider Unava ilable Encounter Details Date Type Department Care Team (Late st Contact Info) Description 03/16/2005 Office Visit [facility] - [facility] [address] [place] [address] Oliver Murrell, HERO-C [address] [phone] Social History Tobacco Use Types Packs/Day Years Used Date Smoking Tobacco: Never Assessed Sex and Gender Information Value Date Recorded Sex Assigned at Female 05/03/2022 19:33 EDT Gender Identity Female 05/02/2020 15:51 EDT Sexual Orientation Straight 05/03/2022 19 :33 EDT documented as of this encounter Progress Notes * Oliver Murrell - 01/24/2010 1326 EST Department - Physician Summary Registration Date/Time: 03/16/2005 16:17 Time Seen: 16:45 Arrived- By private vehicle. Historian- patient. HISTORY OF PRESENT ILLNESS Chief Complaint- Injury to left knee. The injury happened yesterday. The patient sustained a direct blow. [place] park. Patient is experiencing mild pain but denies injury to the head or neck. No other injury. REVIEW OF SYSTEMS The patient complains of pain on weight bearing. No weakness, tingling, numbness or skin laceration. PAST HISTORY See nurses notes. Medications: See nurses notes. Allergies: See nurses notes. ADDITIONAL NOTES The nursing notes have been reviewed. PHYSICAL EXAM Appearance: Alert. No acute distress. Vital Signs: The vital signs have been reviewed. Head: Head atraumatic. Skin: Skin intact. Skin warm and dry. Extremities: Left knee: mild tenderness and small ecchymosis of the lateral joint line. No ligamentous laxity present. No joint effusion. No swelling, laceration, abrasion or deformity. No limitationin ROM. Lower extremity exam otherwise negative. Extremities otherwise negative. Gait: Limping gait. Neuro, Vascular, and Tendons: Vascular status intact. Sensation intact. Motor intact. Tendon function intact. Neuro: Oriented X 3. No motor deficit. No sensory deficit. PROGRESS AND PROCEDURES E.D. Course: Tylenol 975 mg PO. ED Attending on duty and available for supervision: Mike Fuentes. Disposition: Discharged home. Condition: good. Discharged home in good condition. CLINICAL IMPRESSION Contusion left knee. INSTRUCTIONS Apply ice intermittently (15-20 minutes at a time 4-6 times daily). Elevate affected areas above chest level. Continue current medications. OTC Medications: Acetaminophen (available over the counter): take according to label instructions. Follow-up: Follow up with your doctor as needed for follow up evaluation. (Electronically signed by Florecita Greene 03/16/2005 21:00) Department - Nursing Summary Registration Date/Time: 03/16/2005 16:17 TRIAGE Initial Assessment Acuity: LEVEL 4. BP: 140 / 70 HR: 91 RR: 18 Temp: 36.6 tympanic Alert. No acute distress. --1620 Cece Navas R.N. Medications None. --1620 Cece Navas R.N. Allergies No known drug allergies. --1620 Cece Navas R.N. History Chief Complaint: (states hit c swing in L knee yesterday at [place]---ambulates c steady gait). This occurred yesterday. Pain level now: 07/04. PAST HX: Tetanus status: unknown. Last normal menstrual period was 1 week ago. (asthma). SOCIAL HX: Smoker. The patient admits to drinking alcohol occasionally. Historian: patient. --1620 Cece Navas R.N. (hematoma noted outer edge L knee--no deformity noted). --1621 Cece Navas R.N. PHYSICAL ASSESSMENT Alert. Appears anxious. Oriented X 3. Respirations not labored. Skin is warm and dry. --1621 Darron Monroy NURSING PROGRESS NOTES Progress All care done by SN Isis supervised by me. --1637 Bere Black R.N. DISPOSITION / DISCHARGE Condition at departure: unchanged. Learning barriers present. Discharge instructions reviewed with the patient. Treatments reviewed (Reviewed with pt importance of elevating leg and applying ice for comfort). Reviewed referral to family practice. Patient verbalized understanding. Written instructions provided in Armenian. The patient was discharged home and accompanied by social work associate. The patient left the Emergency Department ambulatory. (Pt states I'll be really mad if I have to come back here). --2349 Candice Farooq, Student Nurse Darron Huerta R.N., Susan Student Nurse Locked/Released at 03/18/2005 11:57 by Iman Sidhu R.N. documented in this encounter Plan of Treatment Not on file documented as of this encounter Visit Diagnoses Not on filedocumented in this encounter Care Teams Corn Popper Relationship Specialty Start Date End Date Betsy Perez MD [address] [place] [phone] PCP - General 01/09/10 09/16/11 Carlos Damian MD [address] [place] [phone] PCP - General 01/02/10 01/08/10 Nicky Fernandez APRN PCP - General 12/30/09 01/01/10 Betsy Perez MD [address] [place] [phone] PCP - General 08/08/09 12/29/09 Betsy Perez MD [address] [place] [phone] PCP - General 04/23/09 08/07/09 Nicky Fernandez APRN PCP - General 03/24/09 04/22/09 documented as of this encounter
--- OUTSIDE RECORDS SUMMARY | 2024-07-02 18:56 | XMS_ITS | Encounter Summary ---
Author Organization [facility] Address [address] [place] [address] Care Team Providers Care Motorized Squad Captain Name Role Phone Betsy Perez MD Primary Care Provider [phone] Carlos Damian MD Primary Care Provider + [phone] Nicky Fernandez APRN Primary Care Provider Unava ilable Betsy Perez MD Primary Care Provider [phone] Betsy Perez MD Primary Care Provider [phone] Nicky Fernandez APRN Primary Care Provider Unava ilable Encounter Details Date Type Department Care Team (Late st Contact Info) Description 02/08/2005 Office Visit [facility] - [facility] [address] [place] [address] Lilly Velazquez PA [address] [place] [phone] Social History Tobacco Use Types Packs/Day Years Used Date Smoking Tobacco: Never Assessed Sex and Gender Information Value Date Recorded Sex Assigned at Female 05/03/2022 19:33 EDT Gender Identity Female 05/02/2020 15:51 EDT Sexual Orientation Straight 05/03/2022 19 :33 EDT documented as of this encounter Progress Notes * Sebastian, Conv Sales Representative [employer]s - 01/24/2010 1244 EST Emergency Department ??? Physician Summary Registration Date/Time 02/08/2005 12:16 Time Seen (12:37 ). Arrived- By private vehicle. Historian- patient. HISTORY OF PRESENT ILLNESS Chief Complaint: SORE THROAT. This started about 3 weeks ago and is still present. Pain described as moderate. She has had a moderate sore throat (Pt able to swallow saliva and suck on ice. ) with pain upon swallowing. The patient has had mild nasal congestion. No mouth sores, nasal discharge, ear pain or toothache. No swollen jaw or face, jaw pain or facial pain. (Pt has been having increasing pain in throat, swelling in neck area and decreasing ability to swallow. Pt thinks that her immunizations are up to date.). REVIEW OF SYSTEMS The patient has had enlarged lymph nodes and a mild cough. No fever, eye discomfort, difficulty breathing, chest pain or nausea. No diarrhea, abdominal pain, difficulty with urination, headache or fainting episodes. No joint pain, skin rash or vomiting. PAST HISTORY Negative. Medications: None. Allergies: No known drug allergies. ADDITIONAL NOTES The nursing notes have been reviewed. PHYSICAL EXAM Appearance: Alert. No acute distress. Patient in mild distress. Vital Signs: The vital signs have been reviewed. Eyes: Pupils equal, round and reactive to light. ENT: Ears normal. Mildly muffled/hoarse voice. Pharynx normal. No trismus. (No evidence of an abscess.). No pharyngeal erythema, tonsillar exudate, peritonsillar mass or drooling. The mucous membranes are not dry. Neck: Mildly enlarged right submandibular nodes. mildly enlarged left submandibular nodes. Neck supple. CVS: Normal heart rate and rhythm. Heart sounds normal. Respiratory: No respiratory distress. Breath sounds normal. Neuro: Oriented X 3. LABS, X-RAYS, AND EKG Soft Tissue Neck X-rays: Note (Negative for epiglottitis. Reviewed with Rajendra So.). The SoftTissue Neck X-rays were independently viewed by me. HCG: Urine HCG positive. PROGRESS AND PROCEDURES Patient/family counseled regarding the patient's diagnosis. Old medical records ordered. ED Attending on duty and available for supervision: Andres So (seen with). CLINICAL IMPRESSION . Pharyngitis. INSTRUCTIONS Activities as tolerated. Drink plenty of fluids. Warnings: GENERAL WARNINGS: Return or contact your physician immediately if your condition worsens or changesunexpectedly, if not improving as expected, or if other problems arise (inability to swallow). Prescription Medications: Vicodin 5 mg: take 1-2 orally every 6 hours as needed for pain. No refill. Generic substitute OK (#6). Follow-up: Follow up with Doctor [facility] [phone]. Call to make an appt. You should have a recheck on Saturday, sooner if worse. Lilly Bernabe (Electronically signed Lilly Bernabe 02/08/2005 15:53) Physician's Clinical Report Emergency Department ??? Physician Summary Registration Date/Time 02/08/2005 12:16 Attending Note: I supervised care provided by the PA. We have discussed the case. I have reviewed the note. I personally interviewedthe patient and examined the patient. (here persistent pharyngitis;no analgesia; thought pain was initially assocaited with dental pain; decreased PO intake due to pain; no sig f/c/n/v; denies sig dypnea or cough; exam sig for pharyhgeal erythema wiht no sig edema; no tonsillar exudate; uvulae midline with no evid of peritonisllar,retropharyngeal abscess; soft tissue xr neg). PROGRESS AND PROCEDURES Patient/family counseled. Old medical records reviewed. I consider Vincent's angina, peritonsillar cellulitis and peritonsillar abscess unlikely as a causeof sore throat in this patient. This is a partial list of diagnoses considered. Above considerations are based on history, physical exam and reassessment. Differential diagnosis was discussed with patient. Disposition: Discharged home in improved condition. CLINICAL IMPRESSION Pharyngitis. Shahzad So M.D. (Electronically signed Shahzad So M.D. 02/08/2005 17:22) Physician's Clinical Report Emergency Department ??? Nursing Summary Registration Date/Time 02/08/2005 12:16 TRIAGE Initial Assessment Triage time 12:05 Acuity: LEVEL 4. 12:07. BP: 145 / 62 HR: 96 RR: 16 Temp: 36.3 (tympanic). --12:07 Candice Echeverria R.N. Medications None. --12:07 Candice Echeverria R.N. Allergies No known drug allergies. --12:07 Candice Echeverria R.N. History Chief Complaint: (right neck/jaw pain/difficulty swallowing). (X 3 weeks). Pain level now: 10/10. The patient has had a cough productive of yellow, green sputum. PAST HX: Negative. SOCIAL HX: Cigarette smoker: less than 1 pack per day. The patient admits to drinking alcohol occasionally. No report of abuse. Arrived by private vehicle. Historian: patient. --12:07 Candice Echeverria R.N. NURSING PROGRESS NOTES Progress (Assumed care at this time.). --12:22 Sharifa Howard R.N. (Patient complaining of terrible throat pain. Explained that UPT will be done then x-ray will be the next decision.). --12:57 Sharifa Howard R.N. Urine test positive. --12:58 Darron Arceo notified. Notified (urine result). --12:58 Sharifa Howard R.N. (Patient able to speak in full sentences and not drooling). --12:59 Sharifa Howard R.N. (Patient aware of UPT and aware that she is getting an IV). --13:09 Sharifa Howard R.N. (IV cancelled and chart flagged for discharge. Went to discharge patient, patient states,I'm stillwaiting my IV. Lilly MONAHAN aware and will speak with patient). --14:12 Sharifa Howard R.N. (Patient given cup of ice which she ate while I reviewed her written discharge instructions). --14:25 Sharifa Howard R.N. DISPOSITION / DISCHARGE BP: 1116 / 63 HR: 86 RR: 15 Condition at departure: stable. (Pain patient states,It hurts.). No barriers to learning present. Discharge instructions reviewed with the patient. Warnings reviewed (General). Reviewed medication side effects, precautions, dosing and course; prescription (s) given to the patient. Provided and reviewed written instructions. Reviewed referrals ([facility]). Patient verbalized understanding. The patient was discharged home and accompanied by prison officer. The patient left the Emergency Department ambulatory and via private vehicle. --14:27 Darron Arceo R.N., R.N. Locked/Released at 02/08/2005 14:27 by Sharifa Howard R.N. documented in this encounter Plan of Treatment Not on file documented as of this encounter Visit Diagnoses Not on filedocumented in this encounter Care Teams Motorized Squad Captain Relationship Specialty Start Date End Date Betsy Perez MD [address] [place] [phone] PCP - General 01/09/10 09/16/11 Carlos Damian MD [address] [place] [address] [phone] PCP - General 01/02/10 01/08/10 Nicky Fernandez, DELMI PCP - General 12/30/09 01/01/10 Betsy Perez MD [address] [place] [address] [phone] PCP - General 08/08/09 12/29/09 Betsy Perez MD [address] [place] [address] [phone] PCP - General 04/23/09 08/07/09 Nicky Fernandez APRN PCP - General 03/24/09 04/22/09 documented as of this encounter
--- OUTSIDE RECORDS SUMMARY | 2024-07-02 18:56 | XMS_ITS | Encounter Summary ---
Author Organization [facility] Address [address] [place] [address] Care Team Providers Care Training And Documentation Specialist Name Role Phone Unavailable Primary Care Provider Unavailabl e Encounter Details Date Type Department Care Team (Latest Contact Info) Description 03/10/2009 14:18 EDT Hospital Encounter [address] [address] Alvarez Moon MD [address] [place] [phone] Michelle Cuellar PA-C [address] [place] [phone] Discharge Disposition: Auto Discharge Social History Tobacco [...]
--- OUTSIDE RECORDS SUMMARY | 2024-07-02 18:56 | XMS_ITS | Encounter Summary ---
Author Organization [facility] Address [address] [place] [address] Care Team Providers Care Sugar Mixer Name Role Phone Unavailable Primary Care Provider Unavailabl e Encounter Details Date Type Department Care Team (Latest Contact Info) Description 07/08/2007 22:44 EDT - 07/09/2007 11:59 EDT Hospital Encounter [facility] Emergency Department - [address] [address] Emergency, Default, MD Discharge Disposition: Home or [...]
--- OUTSIDE RECORDS SUMMARY | 2024-07-02 18:56 | XMS_ITS | Encounter Summary ---
Author Organization [facility] Address [address] [place] [address] Care Team Providers Care Chief Engineer Production Name Role Phone Unavailable Primary Care Provider Unavailabl e Encounter Details Date Type Department Care Team (Latest Contact Info) Description 04/14/2008 21:01 EDT Hospital Encounter [facility] Emergency Department - [facility] [address] [place] [address] Emergency, Madina, MD Discharge Disposition: Home or Self Care [...]
--- OUTSIDE RECORDS SUMMARY | 2024-07-02 18:56 | XMS_ITS | Encounter Summary ---
Author Organization [facility] Address [address] [place] [address] Care Team Providers Care Manager Creative Name Role Phone Unavailable Primary Care Provider Unavailabl e Encounter Details Date Type Department Care Team (Latest Contact Info) Description 07/21/2005 4:48 EDT - 07/21/2005 11:59 EDT Hospital Encounter [facility] Emergency Department - [address] [address] Emergency, Default, MD Discharge Disposition: Home or [...] Diagnosis Comments FOOT 3 OR MORE VIEWS 07/21/2005 7:13 EDT ANKLE 3 OR MORE VIEWS 07/21/2005 7:13 EDT documented in this encounter Results * ANKLE 3 OR MORE VIEWS (07/21/2005 7:13 EDT) Anatomical Region Laterality Modality Other 07/21/2005 7:13 EDT Narrative 06/30/2009 5:11 EDT s/p INVERSION PTP MED/ LAT MALLEOLUS. R/O FX. THREE VIEWS RIGHT FOOT HISTORY: Inversion injury with foot pain. ??Evaluate for fracture. FINDINGS: Three views of the right foot demonstrate no fracture or malalignment. ??Soft tissues are unremarkable. THREE VIEWS RIGHT ANKLE HISTORY: Inversion injury with ankle pain. ??Evaluate for fracture. FINDINGS: Three views of the right ankle demonstrate no fracture. Alignment is within normal limits. ??The soft tissues are unremarkable. [facility] I have personally reviewed the images and the above interpretation and agree with the findings. Procedure Note Chencho Peterson Jr., MD / Cedric Pederson MD - 06/30/2009 s/p INVERSION PTP MED/ LAT MALLEOLUS. R/O FX. THREE VIEWS RIGHT FOOT HISTORY: Inversion injury with foot pain. Evaluate for fracture. FINDINGS: Three views of the right foot demonstrate no fracture or malalignment. Soft tissues are unremarkable. THREE VIEWS RIGHT ANKLE HISTORY: Inversion injury with ankle pain. Evaluate for fracture. FINDINGS: Three views of the right ankle demonstrate no fracture. Alignment is within normal limits. The soft tissues are unremarkable. [facility] I have personally reviewed the images and the above interpretation and agree with the findings. Lilly MONAHAN IMG DIAGNOSTIC IMAGI NG ORDERABLES * FOOT 3 OR MORE VIEWS (07/21/2005 7:13 EDT) Anatomical Region Laterality Modality Other 07/21/2005 7:13 EDT Narrative 06/30/2009 5:11 EDT s/p INVERSION PTP MED/ LAT MALLEOLUS. R/O FX. THREE VIEWS RIGHT FOOT HISTORY: Inversion injury with foot pain. ??Evaluate for fracture. FINDINGS: Three views of the right foot demonstrate no fracture or malalignment. ??Soft tissues are unremarkable. THREE VIEWS RIGHT ANKLE HISTORY: Inversion injury with ankle pain. ??Evaluate for fracture. FINDINGS: Three views of the right ankle demonstrate no fracture. Alignment is within normal limits. ??The soft tissues are unremarkable. [facility] I have personally reviewed the images and the above interpretation and agree with the findings. Procedure Note Chencho Peterson Jr., MD / Cedric Pederson MD - 06/30/2009 s/p INVERSION PTP MED/ LAT MALLEOLUS. R/O FX. THREE VIEWS RIGHT FOOT HISTORY: Inversion injury with foot pain. Evaluate for fracture. FINDINGS: Three views of the right foot demonstrate no fracture or malalignment. Soft tissues are unremarkable. THREE VIEWS RIGHT ANKLE HISTORY: Inversion injury with ankle pain. Evaluate for fracture. FINDINGS: Three views of the right ankle demonstrate no fracture. Alignment is within normal limits. The soft tissues are unremarkable. /kailey I have personally reviewed the images and the above interpretation and agree with the findings. Lilly MONAHAN IMG DIAGNOSTIC IMAGI NG ORDERABLES documented in this encounter Visit Diagnoses Not on filedocumented in this encounter
--- OUTSIDE RECORDS SUMMARY | 2024-07-02 18:56 | XMS_ITS | Encounter Summary ---
Author Organization [facility] Address [address] [place] [address] Care Team Providers Care Gum Remover Name Role Phone Unavailable Primary Care Provider Unavailabl e Encounter Details Date Type Department Care Team (Latest Contact Info) Description 01/10/2007 13:31 EST Hospital Encounter [facility] Emergency Department - [address] [address] Emergency, Default, MD Discharge Disposition: Home or [...]
--- OUTSIDE RECORDS SUMMARY | 2024-07-02 18:56 | XMS_ITS | Encounter Summary ---
Author Organization [facility] Address [address] [place] [address] Care Team Providers Care Graphic Technician Name Role Phone Betsy Perez MD Primary Care Provider [phone] Carlos Damian MD Primary Care Provider + [phone] Nicky Fernandez APRN Primary Care Provider Unava ilable Betsy Perez MD Primary Care Provider [phone] Betsy Perez MD Primary Care Provider [phone] Nicky Fernandez APRN Primary Care Provider Unava ilable Encounter Details Date Type Department Care Team (Late st Contact Info) Description 09/18/2007 Office Visit [facility] - [place] conversion [address] [place] [address] Peewee Lowe PA-C [address] [place], [place] [phone] Social History Tobacco Use Types Packs/Day Years Used Date Smoking Tobacco: Never Assessed Sex and Gender Information Value Date Recorded Sex Assigned at Female 05/03/2022 19:33 EDT Gender Identity Female 05/02/2020 15:51 EDT Sexual Orientation Straight 05/03/2022 19 :33 EDT documented as of this encounter Progress Notes * Peewee Lowe PA - 01/15/2010 0515 EST Department - Physician Summary Registration Date/Time: 09/18/2007 2:07 Arrived- By private vehicle. Historian- patient. HISTORY OF PRESENT ILLNESS Chief Complaint: CHEST PAIN. This started today and is still present. It is not gone now. It is described as sharp and pain and it is described as located in the right chest area. No radiation. At its maximum, severity described as severe. When seen in the E.D., severity described as severe. No nausea, vomiting, difficulty breathing or diaphoresis. No additional chest pain. Patient has not had similar symptoms previously. Not recently seen/assessed. REVIEW OF SYSTEMS No fever, chills, cough, fainting episodes or headache. No sore throat, blurred vision or abdominalpain. PAST HISTORY See nurses notes. Medications: The patient's medications have been reviewed. Allergies: No known drug allergies. SOCIAL HISTORY Smoker. ADDITIONAL NOTES The nursing notes have been reviewed. PHYSICAL EXAM Appearance: Alert. In distress. Vital Signs: Have been reviewed. Eyes: Eyes normal inspection. Neck: Neck supple. CVS: Normal heart rate and rhythm. Heart sounds normal. Respiratory: No respiratory distress. Breath sounds normal. tender to palpation R lateral rib cage. PROGRESS AND PROCEDURES Patient/family counseled. Additional history sought. Old medical records ordered. ED Attending on duty and available for supervision: Sonido Augustin. Disposition: Discharged home. Condition: good. CLINICAL IMPRESSION Costochondritis. INSTRUCTIONS Follow-up: Follow up with your doctor in two days. (Electronically signed by Florecita Edwards 09/18/2007 4:23) Department - Nursing Summary Registration Date/Time: 09/18/2007 2:07 TRIAGE Initial Assessment Triage time 02:08. Acuity: LEVEL 4. BP: 111 / 72. HR: 80. RR: 18. Temp: 36.7 tympanic. O2 saturation: 98% room air. Alert. --209 Darron Lomax. Medications None. --209 Merlyn Gaspar R.N.. Allergies No known drug allergies. --209 Merlyn Gaspar R.N.. History Chief Complaint: (SOB/Right Rib Pain). This started yesterday. Pain level (10/04). PAST HX: (Plastic Sx to face). SOCIAL HX: Smoker: less than 1 pack per day. Alcohol use (Drinks 3 x per week). No report of abuse. Arrived by private vehicle. Historian: patient. --209 Merlyn Gaspar R.N.. NURSING PROGRESS NOTES Patient identifiers checked. Head of bed elevated. Call light placed in reach. Side rails up x 1. Bed placed in lowest position. Brakes of bed on. Patient ready for evaluation. --220 Merlyn Gaspar R.N. (VICODIN SP (RX [id number]) given to pt for d/c home-pt took one tab). --299 Merlyn Gaspar R.N.. DISPOSITION / DISCHARGE Patient reports pain level on departure as 09/03. Condition at departure: stable. Fall risk assessment completed. No fall risk identified. No learning barriers present. Discharge instructions reviewed with the patient. Patient verbalized understanding. Written instructions provided in Indian. The patient was discharged home. The patient left the Emergency Department ambulatory. --300 Merlyn Gaspar R.N.. Merlyn Gaspar R.N. Locked/Released at 09/18/2007 3:01 by Merlyn Gaspar R.N. documented in this encounter Plan of Treatment Not on file documented as of this encounter Visit Diagnoses Not on filedocumented in this encounter Care Teams Graphic Technician Relationship Specialty Start Date End Date Betsy Perez MD [address] [place] [phone] PCP - General 01/09/10 09/16/11 Carlos Damian MD [address] [place] [phone] PCP - General 01/02/10 01/08/10 Nicky Fernandez APRN PCP - General 12/30/09 01/01/10 Betsy Perez MD [address] [place] [phone] PCP - General 08/08/09 12/29/09 Betsy Perez MD [address] [place] [phone] PCP - General 04/23/09 08/07/09 Nicky Fernandez APRN PCP - General 03/24/09 04/22/09 documented as of this encounter
--- OUTSIDE RECORDS SUMMARY | 2024-07-02 18:56 | XMS_ITS | Encounter Summary ---
Author Organization [facility] Address [address] [place] [address] Care Team Providers Care Manager Hydraulic Name Role Phone Unavailable Primary Care Provider Unavailabl e Encounter Details Date Type Department Care Team (Latest Contact Info) Description 11/23/2008 10:40 EST - 11/23/2008 11:59 EST Hospital Encounter [facility] Emergency Department - [facility] [address] [place] [address] Emergency, Default, MD Discharge Disposition: Home or [...]
--- OUTSIDE RECORDS SUMMARY | 2024-07-02 18:56 | XMS_ITS | Encounter Summary ---
Author Organization [facility] Address [address] [place] [address] Care Team Providers Care Branch Account Executive Name Role Phone Betsy Perez MD Primary Care Provider [phone] Carlos Damian MD Primary Care Provider + [phone] Nicky Fernandez APRN Primary Care Provider Unava ilable Betsy Perez MD Primary Care Provider [phone] Betsy Perez MD Primary Care Provider [phone] Nicky Fernandez APRN Primary Care Provider Unava ilable Encounter Details Date Type Department Care Team (Late st Contact Info) Description 07/24/2006 Office Visit [facility] [address] [place] [address] Sivan Carey NP [address] [place] [phone] Social History Tobacco Use Types Packs/Day Years Used Date Smoking Tobacco: Never Assessed Sex and Gender Information Value Date Recorded Sex Assigned at Female 05/03/2022 19:33 EDT Gender Identity Female 05/02/2020 15:51 EDT Sexual Orientation Straight 05/03/2022 19 :33 EDT documented as of this encounter Progress Notes * Zainab Carey NP - 01/18/2010 3624 EST [facility] - Physician Summary Registration Date/Time: 07/24/2006 20:13 AMMENDED REPORT - SEE ADDENDA BELOW Time Seen: 21:25 . Arrived- By private vehicle. Historian - patient. HISTORY OF PRESENT ILLNESS Chief Complaint: HEADACHE (Patient well known for migraines. Presents today for a 2 week history ofmigraine headache. She was seen at a clinic 1 week ago and given Naproxen, she states that this is not helping. ). It is described as similar to previous headaches. Described as a global headache. Noneck pain. She has had nausea. No preceding symptoms, blurred vision, photophobia, numbness or weakness. No vomiting. The patient has had similar symptoms many times previously. The patient was seen recently in the office. REVIEW OF SYSTEMS No fever, muscle aches, sinus pressure, ear pain or sore throat. No carbon monoxide exposure or head injury. PAST HISTORY See nurses notes. History of chronic headaches. Depression. Medications: The patient's medications have been reviewed. See nurses notes. Allergies: No known drug allergies. ADDITIONAL NOTES The nursing notes have been reviewed with agreement regarding the chief complaint, HPI, PMH and patient medications and allergies. PHYSICAL EXAM Appearance: Alert. Patient in mild distress. Vital Signs: Normal - Eyes: Pupils equal, round and reactive to light. Eyes normal inspection. Ears normal. Nose normal. Pharynx normal. Neck: Normal inspection. Neck supple. Respiratory: No respiratory distress. Abdomen: Abdomen soft and nontender. Back: Normal inspection. Skin: Normal skin color and turgor. Skin warm and dry. No rash. Extremities: Extremities exhibit normal ROM. No lower extremity edema. Neuro: Oriented X 3. Alert. Mood/affect normal. Speech normal. Cranial nerves normal (as tested). No motor deficit. No sensory deficit. LABS, X-RAYS, AND EKG HCG: Urine HCG negative - PROGRESS AND PROCEDURES E.D. Course: Patient given IV Toradol and Reglan. Patient given 1 litre NS bolus. 21:52 . Evaluation after reassessment, IV Reglan and Toradol. Headache has decreased from 10/10 to 1/10. Patient requesting to go home. ED Attending on duty and available for supervision (). Disposition: Discharged home in good condition. CLINICAL IMPRESSION Migraine headache (migraine equivalent) . INSTRUCTIONS As we discussed, make another appointment with your family doctor to have your headache medication reevaluated. If your headache returns, you develop a fever, or any new symptoms [facility] or the Emergency Department. Warnings: GENERAL WARNINGS: Return to the Emergency Department or contact your physician immediately if your condition worsens or changes unexpectedly, if not improving as expected, or if other problems arise. Understanding of the discharge instructions verbalized by patient. (Electronically signed by Scott Carey N.P. 07/25/2006 15:05) Addenda for YESENIA LAGOS VisitID: [id number] Date: 07/24/2006 07/24/2006 20:16 Pt was self referred to [facility]. Pt will call and notify their PCP of visit. signed by Jeanine White - 07/24/2006 20:16) 08/06/2006 8:08 Add Dx Code 784.0 signed by Lynn London MD - 08/06/2006 8:08) Care Center - Nursing Summary Registration Date/Time: 07/24/2006 20:13 TRIAGE Initial Assessment Triage time 20:23. --2022 Rosey Kenyon, BP: 126 / 84 sitting L arm manual (lg adult cuff). HR: 84 regular. RR: 18. Temp: 97.7 oral. --2030Rosey Kenyon, Triage time 20:43. --2046 Jessika Berkowitz L.P.N. Medications Celexa (started 1 weeks ago last dose 2 days ago). Flexeril. Naproxen. --2046 Jessika Berkowitz L.P.N. Allergies No known drug allergies. --2046 Colten Pompa.P.N. History Arrived by private vehicle. Historian: patient. --2022 Rosey Kenyon, Chief Complaint: MIGRAINE HEADACHE. Onset (2 weeks ago). Pain level now: 10/10. The patient has had nausea and vomiting. Treatment MANAGEMENT INFORMATION SYSTEMS DIRECTOR: Recently seen in the office; seen for similar symptoms; treatment - prescription given. PAST HX: Negative. ( facial plastic surgery, head injury at 4 yrs old). Last normal menstrual period was 4 weeks ago -. Sexual history - sexually active. No contraception. --2046 Jessika Berkowitz L.P.N. PAST HX. PHYSICAL ASSESSMENT Ambulatory to room. Alert. Appears in pain. Oriented X3. Speech within normal limits. Respirations not labored. --2046 Jessika Berkowitz L.P.N. NURSING PROGRESS NOTES Progress Patient gowned. Lights dimmed. --2030 Rosey Kenyon, ( Ice water given to patient, patient unable to give urine sample for upt at this time). --2031 Rosey Kenyon, Patient gowned. Patient ready for evaluation - chart flagged. --2046 Jessika Berkowitz L.P.N. Clean catch urine collected; sample sent to lab for HCG. --2101 Jessika Berkowitz L.P.N. Urine test negative. --2101 Jessika Berkowitz L.P.N. Two patient identifiers checked. IV started: #1 site, right antecubital space, 20g angiocath, usingaseptic technique, with good blood return; one attempt. --2127 Maria Elena Ramirez R.N. Two patient identifiers checked. TORADOL 30 mg diluted with IV fluid slow IVP over 2 minutes. REGLAN 10 mg diluted with IV fluid slow IVP over 2 minutes. IV patency established. Site checked: no pain, redness, or swelling. . --2143 Mayr Ann Barrios R.N. BP: 128 / 70 after reglan 5 mg. --2144 Mary Ann Barrios R.N. Reassessment after medication administered (reports pain now 12/04). --2157 Mary Ann Barrios R.N. The patient has had no adverse reaction. --2157 Mary Ann Barrios R.N. IV / I&O Flowsheet IV site discontinued: IV catheter intact, dressing applied. --2153 Rosey Kenyon. DISPOSITION / DISCHARGE Condition at departure: improved. No learning barriers present. Discharge instructions reviewed with the patient. Patient verbalized understanding. The patient was discharged home. The patient left the Emergency Department ambulatory and via taxi ( cab voucher given). Departure time: 22:09. --9 Mary Ann Barrios R.N. Locked/Released at 07/24/2006 22:10 by Mary Ann Barrios R.N. documented in this encounter Plan of Treatment Not on file documented as of this encounter Visit Diagnoses Not on filedocumented in this encounter Care Teams Branch Account Executive Relationship Specialty Start Date End Date Betsy Perez MD [address] [place] [address] [phone] PCP - General 01/09/10 09/16/11 Carlos Damian MD [address] [place] [phone] PCP - General 01/02/10 01/08/10 Nicky Fernandez APRN PCP - General 12/30/09 01/01/10 eBtsy Perez MD [address] [place] [phone] PCP - General 08/08/09 12/29/09 Betsy Perez MD [address] [place] [address] [phone] PCP - General 04/23/09 08/07/09 Nicky Fernandez APRN PCP - General 03/24/09 04/22/09 documented as of this encounter
--- OUTSIDE RECORDS SUMMARY | 2024-07-02 18:56 | XMS_ITS | Encounter Summary ---
Author Organization [facility] Address [address] [place] [address] Care Team Providers Care Ship Officer Name Role Phone Betsy Perez MD Primary Care Provider [phone] Carlos Damian MD Primary Care Provider + [phone] Nicky Fernandez APRN Primary Care Provider Unava ilable Betsy Perez MD Primary Care Provider [phone] Betsy Perez MD Primary Care Provider [phone] Nicky Fernandez APRN Primary Care Provider Unava ilable Encounter Details Date Type Department Care Team (Late st Contact Info) Description 07/21/2005 Office Visit [facility] [address] [place] [address] Lilly Velazquez PA [address] [place] [phone] Social History Tobacco Use Types Packs/Day Years Used Date Smoking Tobacco: Never Assessed Sex and Gender Information Value Date Recorded Sex Assigned at Female 05/03/2022 19:33 EDT Gender Identity Female 05/02/2020 15:51 EDT Sexual Orientation Straight 05/03/2022 19 :33 EDT documented as of this encounter Progress Notes * Nicole Cortes Hot Box Operator - 01/24/2010 1748 EST Department - Physician Summary Registration Date/Time: 07/21/2005 4:48 Time Seen: 06:14 Arrived- By private vehicle. Historian- patient. HISTORY OF PRESENT ILLNESS Chief Complaint- Injury to the right foot and right ankle. The injury happened last night. The patient sustained an inversion injury. Occurred on a street. Pt did weight bear after incident.Patient is experiencing moderate pain. No other injury. REVIEW OF SYSTEMS The patient complains of pain on weight bearing. No weakness, tingling, numbness, suspected foreignbody or skin laceration. PAST HISTORY Negative. Medications: None. Allergies: codeine ADDITIONAL NOTES The nursing notes have been reviewed. PHYSICAL EXAM Appearance: Alert. No acute distress. sound asleep with R foot under left foot. All weight on R foot. Vital Signs: vital signs have been reviewed. Extremities: Right leg (No prox tib/fib PTP). Right lateral ankle: mild tenderness and swelling of the lateral ligaments, particularly the anterior talofibular ligament and lateral malleolus. LimitedROM secondary to pain. Right medial ankle: mild tenderness. Limited ROM secondary to pain. Base of the right 5th metatarsal: mild tenderness. Right foot: mild tenderness. Foot and ankle exam otherwise negative. Extremities otherwise negative. Gait: Gait not tested due to pain. Neuro, Vascular and Tendons: Vascular status intact. Sensation intact. Motor intact. Tendon function intact. LABS, X-RAYS, AND EKG Rt Ankle X-ray: No fracture.Soft tissues normal. Joint spaces normal. Normal alignment. Reviewed with Selena Randolph at 0730. The right ankle X-ray was independently viewed by me. Rt Foot X-ray: No fracture. Soft tissues normal. Joint spaces normal. Normal alignment. Reviewed with Selena Randolph at 0730. The right foot X-ray was independently viewed by me. PROGRESS AND PROCEDURES Patient/family counseled. ED Attending on duty and available for supervision: Jennifer Randolph. CLINICAL IMPRESSION Sprained right ankle; right foot. INSTRUCTIONS Apply ice intermittently (15-20 minutes at a time 4-6 times daily). Use crutches as needed. Wear elastic wrap as directed. Elevate affected areas above chest level. You may walk and bear weight as tolerated. OTC Medications: Acetaminophen (available over the counter): take according to label instructions. Motrin (available over the counter): take according to label instructions. Follow-up: Follow up with your doctor in7-10 days for a recheck (Electronically signed by Florecita Fuchs 07/21/2005 7:48) Department - Nursing Summary Registration Date/Time: 07/21/2005 4:48 TRIAGE Initial Assessment Triage time 04:59 Jul 21 2005 Acuity: LEVEL 4. BP: 119 / 72 HR: 90 RR: 18 Temp: 36.8 tympanic Alert. No acute distress. --502 Florecita Griffith R.N. Medications None. (BCP). --502 Florecita Griffith R.N. Allergies CODEINE- symptoms consisted of hives. --502 Florecita Griffith R.N. History Chief Complaint: FALL. Location of injuries (R ankle). This occurred just prior to arrival. Pain level now:8/10. Treatment ELECTRIC CONTAINER TESTER: Ice. PAST HX: Negative. Last normal menstrual period was 4 weeks ago. SOCIAL HX: Smoker. Patient admits to drinking alcohol. Arrived by private vehicle. Historian: patient. (Pt stepped off curb injuring R ankle roling injury c/o pain up to knee and toes numb. + pulses Pt able to ambulate after barely Pt states she is not driving). --502 Florceita Griffith R.N. NURSING PROGRESS NOTES Progress Patient transported to radiology by stretcher with tech. --711 Lois Bass R.N. (assumed care pt sleeping). --737 Marleny Fernandez R.N. IBUPROFEN 600 mg PO. --737 Marleny Fernandez R.N. 4 inch carlos bandage applied to right ankle by nurse; distal pulses intact, sensation intact and motor function within normal limits. --737 Marleny Fernandez R.N. Patient fit with crutches (done). --743 Marleny Fernandez R.N. DISPOSITION / DISCHARGE BP: 101 / 50 HR: 57 Patient reports pain level on departure as 7/10 (when walking on it). Conditionat departure: stable. Discharge instructions reviewed with the patient. The patient was discharged home. The patient left the Emergency Department on crutches and via private vehicle. Barrel Builder driving. --5644 Darron Castro R.N., R.N. Sue Mullen R.N. Locked/Released at 07/21/2005 13:34 by Marleny Fernandez R.N. documented in this encounter Plan of Treatment Not on file documented as of this encounter Visit Diagnoses Not on filedocumented in this encounter Care Teams Ship Officer Relationship Specialty Start Date End Date Betsy Perez MD [address] [place] [address] [phone] PCP - General 01/09/10 09/16/11 Carlos Damian MD [address] [place] [address] [phone] PCP - General 01/02/10 01/08/10 Nicky Fernandez, DELMI PCP - General 12/30/09 01/01/10 Betsy Perez MD [address] [place] [address] [phone] PCP - General 08/08/09 12/29/09 Betsy Perez MD [address] [place] [address] [phone] PCP - General 04/23/09 08/07/09 Nicky Fernandez APRN PCP - General 03/24/09 04/22/09 documented as of this encounter
--- OUTSIDE RECORDS SUMMARY | 2024-07-02 18:56 | XMS_ITS | Encounter Summary ---
Author Organization [facility] Address [address] [place] [address] Care Team Providers Care Government Operations Consultant Name Role Phone Unavailable Primary Care Provider Unavailabl e Encounter Details Date Type Department Care Team (Latest Contact Info) Description 07/24/2006 20:13 EDT Hospital Encounter [facility] [address] [place] [address] Sivan Carey NP [address] [place] [phone] Lynn London MD [address] [place] [address] Discharge Disposition: Auto Discharge Social History Tobacco [...] Procedure Name Priority Date/Time Associated Diagnosis Comments TEST, URINE Routine 07/24/2006 20:25 EDT documented in this encounter Results * TEST, URINE (07/24/2006 20:25 EDT) Result-Pregnan cy Test, Ur Neg Performed at [facility], [place], [place] EDD DIANE 07/24/2006 20:2 5 EDT 07/24/2006 20:45 EDT Lynn London MD URINALYSIS ORDERABLE S Performing Organization Address City/State/[place] de Phone Number EDD DIANE [address] [place] [address] documented in this encounter Visit Diagnoses Not on filedocumented in this encounter
--- OUTSIDE RECORDS SUMMARY | 2024-07-02 18:56 | XMS_ITS | Encounter Summary ---
Author Organization [facility] Address [address] [place] [address] Care Team Providers Care Public Service Representative Name Role Phone Betsy Perez MD Primary Care Provider [phone] Carlos Damian MD Primary Care Provider + [phone] Nicky Fernandez APRN Primary Care Provider Unava ilable Betsy Perez MD Primary Care Provider [phone] Betsy Perez MD Primary Care Provider [phone] Nicky Fernandez APRN Primary Care Provider Unava ilable Encounter Details Date Type Department Care Team (Late st Contact Info) Description 12/08/2007 Office Visit [facility] [address] [place] [address] Halina Hansen, PA [address] [place] [phone] Social History Tobacco Use Types Packs/Day Years Used Date Smoking Tobacco: Never Assessed Sex and Gender Information Value Date Recorded Sex Assigned at Female 05/03/2022 19:33 EDT Gender Identity Female 05/02/2020 15:51 EDT Sexual Orientation Straight 05/03/2022 19 :33 EDT documented as of this encounter Progress Notes * Halina De La Cruz - 01/15/2010 0652 EST Department - Physician Summary Registration Date/Time: 12/08/2007 13:41 Time Seen: 14:31. Arrived- By private vehicle. Historian- patient. HISTORY OF PRESENT ILLNESS Chief Complaint: BACK INJURY and BACK PAIN. Onset- 3 days ago and it is still present. It is described as being moderate in degree and in the area of the lower lumbar spine and radiating to the upperback. The quality is noted to be sharp. Modifying factors- worsened by rotation of the body. Not relieved by anything. Associated symptoms - No bladder dysfunction, bowel dysfunction, sensory loss or motor loss. Patient notes an injury. Mechanism of injury- she fell while walking. Patient denies injury to the head or neck. No other injury. Patient has not had similar symptoms previously. The patient was seen recently at this facility. (pt had foot fracture from fall, seen here and treated in ED). REVIEW OF SYSTEMS No fever, chills, eye irritation, difficulty with urination or urinary frequency. No hematuria, headache, depression, sore throat or cough. No difficulty breathing, chest pain, abdominal pain, nauseaor vomiting. No diarrhea, black stools or bloody stools. PAST HISTORY asthma. Medications: The patient's medications have been reviewed. See nurses notes. Allergies: No known drug allergies. SOCIAL HISTORY Cigarette smoker: less than 1 pack per day. ADDITIONAL NOTES The nursing notes have been reviewed. PHYSICAL EXAM Appearance: Alert. No acute distress. Vital Signs: Have been reviewed (BP: 125/69, HR: 103, RR: 22, Temp: 36.9, O2sat 99%). HEENT: Normal external inspection. Neck: Normal inspection. Neck nontender. Painless ROM. Respiratory: No respiratory distress. Back: Moderate soft tissue tenderness in the right lower and leftlower lumbar area. Normal inspection. Painless ROM. Skin: Normal skin color and turgor. Skin warm and dry. No rash. Extremities: Extremities exhibit normal ROM. Extremities nontender. Neuro: Oriented X 3. Mood/affect normal. No motor deficit. No sensory deficit. PROGRESS AND PROCEDURES E.D. Course: pt has been using crutches to ambulate, feels back has been hurting more since crutch use, likely is compensating whileambulating straining back muscles. no vertebral point tenderness noted. ED Attending on duty and available for supervision: Shanna Yoo. Disposition: Condition: good. Discharged home. CLINICAL IMPRESSION Acute back pain: thoracic strain and lumbar strain. Left tarsal navicular fracture. INSTRUCTIONS Apply ice intermittently (15-20 minutes at a time 4-6 times daily) until better (alternate with heat). Wear plaster splint. Warnings: GENERAL WARNINGS: Return to the Emergency Department or contact your physician immediately if your condition worsens or changes unexpectedly, if not improvingas expected, or if other problems arise. Your Current Medications: Your current home medications have been reviewed by the Emergency Department physician pastrycook's assistant. Changes in your home medications are recommended. Stop taking the following medications: vicodin. Prescription Medications: Flexeril 10 mg: Take 1 orally every 8hours as needed for muscle spasm. Dispense twenty (20). No refills. Generic substitute OK. Percocet 5 mg/325 mg: take 1 tablet orally every 6 hours as needed for pain. Dispense fifteen (15).No refills. Generic substitute OK. Follow-up: Follow up with an orthopedic surgeon as scheduled. Understanding of the discharge instructions verbalized by patient. (Electronically signed by HERO Vazquez 12/08/2007 19:04) Department - Nursing Summary Registration Date/Time: 12/08/2007 13:41 TRIAGE Initial Assessment Triage time 1240. Acuity: LEVEL 4.125 / 69 sitting. HR: 103. RR: 22. Temp: 36.9 tympanic. O2 saturation: 99% room air. Alert. --1347 Sonido GrijalvaN.. Medications (vicodin). --1347 Sonido GrijalvaNBlair. Allergies No known drug allergies. --1347 Sonido GrijalvaNBlair. History Chief Complaint: BACK PAIN and (pinching, stabbing back pain that travels upward to lower neck). Pain level now: 10/10. The patient has had trouble walking. History of recent trauma- fall (about 3days ago, broke lt foot). (rt buttock throbbing pain). Treatment SCHOOL AGE PROGRAM ASSOCIATE: None. PAST HX: Asthma. Last normal menstrual period- Nov 14. SOCIAL HX: Smoker: less than 1 pack per day. Arrived by private vehicle and in wheelchair. Historian: patient. --1347 Nithya Amin R.N.. NURSING PROGRESS NOTES HERO De La Cruz at bedside.. --1456 Hailey CrouchM.TBlair Care transferred and report received. --1518 Nicolás Chun R.N. Long posterior plaster splint applied to left ankle. --1526 Hailey CrouchMBlairTBlair. DISPOSITION / DISCHARGE BP: 133 / 78. HR: 79. RR: 14. O2 saturation: 97% room air. Condition at departure: improved. Patient reports pain level on departure as 3/10. No learning barriers present. Discharge instructions reviewed with the patient. Reviewed warnings. Reviewed medication side effects and precautions; prescript ion (s) given to the patient. Patient verbalized understanding. Written instructions provided in Chinese. The patient was discharged home and accompanied by processing analyst. The patient left the Emergency Department in a wheelchair and via private vehicle. Android Architect driving. --1549 Wiley Coppola R.N.. Brenton Mcelroy R.N., R.N., R.N. Locked/Released at 12/08/2007 15:49 by Wiley Coppola R.N. documented in this encounter Plan of Treatment Not on file documented as of this encounter Visit Diagnoses Not on filedocumented in this encounter Care Teams Public Service Representative Relationship Specialty Start Date End Date Betsy Perez MD [address] [place] [phone] PCP - General 01/09/10 09/16/11 Carlos Damian MD [address] [place] [phone] PCP - General 01/02/10 01/08/10 Nicky Fernandez, SCRAP CRUSHER PCP - General 12/30/09 01/01/10 Betsy Perez MD [address] [place] [phone] PCP - General 08/08/09 12/29/09 Betsy Perez MD [address] [place] [phone] PCP - General 04/23/09 08/07/09 Nicky Fernandez APRN PCP - General 03/24/09 04/22/09 documented as of this encounter
--- OUTSIDE RECORDS SUMMARY | 2024-07-02 18:56 | XMS_ITS | Encounter Summary ---
Author Organization [facility] Address [address] [place] [address] Care Team Providers Care Bingo Attendant Name Role Phone Unavailable Primary Care Provider Unavailabl e Encounter Details Date Type Department Care Team (Latest Contact Info) Description 02/08/2005 12:16 EST Hospital Encounter [facility] Emergency Department - [address] [address] Emergency, Default, MD Discharge Disposition: Home or [...] Procedure Name Priority Date/Time Associated Diagnosis Comments NECK SOFT TISSUE Routine 02/08/2005 13:0 8 EST documented in this encounter Results * NECK SOFT TISSUE (02/08/2005 13:08 EST) Anatomical Region Laterality Modality Other 02/08/2005 13:0 8 EST Narrative 07/21/2009 16:03 EDT MILD NECK SWELLING, SORE THROAT [id number] ONLY SWALLOWING SALIVA, NORMAL THROAT EXAMR/O EPIGLOTTITIS SOFT TISSUE LATERAL NECK, 02/08/05 Lateral view of the neck shows a normal epiglottis. The airway has a normal appearance. To the level of C5, no abnormality is seen. /[facility] Procedure Note Carter Abel MD - 07/21/2009 MILD NECK SWELLING, SORE THROAT [id number] ONLY SWALLOWING SALIVA, NORMAL THROAT EXAMR/O EPIGLOTTITIS SOFT TISSUE LATERAL NECK, 02/08/05 Lateral view of the neck shows a normal epiglottis. The airway has a normal appearance. To the level of C5, no abnormality is seen. /[facility] Lilly MONAHAN IMG DIAGNOSTIC IMAGI NG ORDERABLES documented in this encounter Visit Diagnoses Not on filedocumented in this encounter
--- OUTSIDE RECORDS SUMMARY | 2024-07-02 18:56 | XMS_ITS | Encounter Summary ---
Author Organization [facility] Address [address] [place] [address] Care Team Providers Care Allocation Analyst Name Role Phone Betsy Perez MD Primary Care Provider [phone] Carlos Damian MD Primary Care Provider + [phone] Nicky Fernandez APRN Primary Care Provider Unava ilable Betsy Perez MD Primary Care Provider [phone] Betsy Perez MD Primary Care Provider [phone] Nicky Fernandez APRN Primary Care Provider Unava ilable Encounter Details Date Type Department Care Team (Late st Contact Info) Description 03/23/2005 Results Only [facility] - [facility] [address] [place] [address] Nolvia Watson MD Social History Tobacco Use [...] REFLEX TO HCV RNA BY PCR Routine 03/23/2005 11:30 EDT HEPATIC FUNCTION PANEL (ALB,ALK PHOS,ALT,AST,DBIL,T OT LESLIE,TOT PROT) Routine 03/23/2005 11:30 EDT documented in this encounter Results * LIVER FUNCTION TESTS (03/23/2005 11:30 EDT) Albumin 3.7 3.4 - 4.9 g/dl [facility] Total Protein 7.2 6.5 - 8.0 g/dl [facility] Total Alkaline Phosphatase 73 38 - 126 U/L [facility] ALT 18 9 - 52 U/L [facility] AST 16 15 - 46 U/L [facility] Unconjugated Bilirubin 0.2 0.1 - 1.1 mg/dl [facility] Conjugated Bilirubin 0.0 0.0 - 0.3 mg/dl [facility] Bilirubin, Total <0.5 0.2 - 1.3 mg/dl [facility] 03/23/2005 11:3 0 EDT 03/23/2005 17:52 EDT Nolvia Watson MD CHEMISTRY & BLOOD GA S ORDERABLES Performing Organization Address [facility] de Phone Number [facility] [address] [place] [address] * HEPATITIS C ANTIBODY (03/23/2005 11:30 EDT) Hepatitis C Ab Neg [facility] 03/23/2005 11:3 0 EDT 03/23/2005 17:52 EDT Nolvia Watson MD CHEMISTRY & BLOOD GA S ORDERABLES Performing Organization Address [facility] Co de Phone Number [facility] [address] [place] [address] documented in this encounter Visit Diagnoses Not on filedocumented in this encounter Care Teams Allocation Analyst Relationship Specialty Start Date End Date Betsy Perez MD [address] [place] [phone] PCP - General 01/09/10 09/16/11 Carlos Damian MD [address] [phone] PCP - General 01/02/10 01/08/10 Nicky Fernandez APRN PCP - General 12/30/09 01/01/10 Betsy Perez MD [address] [place] [phone] PCP - General 08/08/09 12/29/09 Betsy Perez MD [address] [place] [phone] PCP - General 04/23/09 08/07/09 Nicky Fernandez APRN PCP - General 03/24/09 04/22/09 documented as of this encounter
--- OUTSIDE RECORDS SUMMARY | 2024-07-02 18:56 | XMS_ITS | Encounter Summary ---
Author Organization [facility] Address [address] [place] [address] Care Team Providers Care Sales Architect Name Role Phone Unavailable Primary Care Provider Unavailabl e Encounter Details Date Type Department Care Team (Latest Contact Info) Description 12/08/2007 13:41 EST Hospital Encounter [facility] Emergency Department - [facility] [address] [place] [address] Emergency, Default, MD Discharge Disposition: Home or [...]
--- OUTSIDE RECORDS SUMMARY | 2024-07-02 18:56 | XMS_ITS | Encounter Summary ---
Author Organization [facility] Address [address] [place] [address] Care Team Providers Care Cloth Beamer Name Role Phone Betsy Perez MD Primary Care Provider [phone] Carlos Damian MD Primary Care Provider + [phone] Nicky Fernandez APRN Primary Care Provider Unava ilable Betsy Perez MD Primary Care Provider [phone] Betsy Perez MD Primary Care Provider [phone] Nicky Fernandez APRN Primary Care Provider Unava ilable Encounter Details Date Type Department Care Team (Late st Contact Info) Description 12/01/2007 Office Visit [facility] - [facility] [address] [place] [address] Neymar Bojorquez, PA-C [address] [place] [address] Social History Tobacco Use Types Packs/Day Years Used Date Smoking Tobacco: Never Assessed Sex and Gender Information Value Date Recorded Sex Assigned at Female 05/03/2022 19:33 EDT Gender Identity Female 05/02/2020 15:51 EDT Sexual Orientation Straight 05/03/2022 19 :33 EDT documented as of this encounter Progress Notes * Neymar Bojorquez MD - 01/15/2010 0647 EST Department - Physician Summary Registration Date/Time: 12/01/2007 11:44 Time Seen; upon arrival. Arrived- By private vehicle. Historian- patient. HISTORY OF PRESENT ILLNESS Chief Complaint: COUGH, SORE THROAT and MUSCLE ACHES. This started 7 days ago and is still present (worse since 2 days ago). The illness is described as moderate. She has had sputum production, a cough, chest discomfort, difficulty breathing and a sore throat. The patient has had nasal congestion. No chest pain, fever, hoarseness, nasal discharge or sinus pressure. No sinus drainage or ear pain. Patient has not had similar symptoms previously. Not recently seen/assessed. REVIEW OF SYSTEMS No nausea, vomiting or skin rash. PAST HISTORY Negative. Asthma. Medications: The patient's medications have been reviewed. Allergies: The patient's allergies have been reviewed. SOCIAL HISTORY Smoker. ADDITIONAL NOTES The nursing notes have been reviewed. PHYSICAL EXAM Appearance: Alert. Patient in mild distress. Vital Signs: Normal. ENT: Ears normal. Nose normal. Pharynx normal. Respiratory: No respiratory distress. Breath sounds normal. No wheezes. Skin: Normal skin color. Skin warm. No rash. PROGRESS AND PROCEDURES ED Attending on duty and available for supervision: Sonido Miller. Disposition: Discharged home in good condition. Discharged home in good condition. CLINICAL IMPRESSION Bronchitis. INSTRUCTIONS Drink plenty of fluids. Warnings: GENERAL WARNINGS: Return or contact your physician immediately if your condition worsens or changesunexpectedly, if not improving as expected, or if other problems arise. Specifically return if breathing difficulty worsens. or for fever or vomitting. Prescription Medications: Albuterol HFA oral inhaler: inhale 1 to 2 puffs every four to six hours as needed for difficulty breathing. Dispense 1 unit. No refills. Prednisone 20 mg: take 3 orallyevery day for 5 days. Dispense fifteen (15). No refills. Robitussin A-C cough syrup take one (1) teaspoon orally every 4 hours as needed for cough. Dispensesixty (60) mL. Generic substitute OK. OTC Medications: Motrin IB 200 mg (available over the counter): take 3 orally every 6 hours as needed for pain. Follow-up: [facility], , [address] [facility], [facility]. Follow up in one week if not better. (Electronically signed by Neymar Bojorquez, 12/02/2007 12:09) Department - Nursing Summary Registration Date/Time: 12/01/2007 11:44 TRIAGE Initial Assessment Triage time 11:45. Acuity: LEVEL 4. BP: 136 / 81. HR: 100. RR: 20. Temp: 36.2 tympanic. O2 saturation: 98 % room air. Alert. No acute distress. --1147 Negra Howell R.N.. Medications (albuterol inh prn). --1147 Negra Howell R.N.. Allergies No known drug allergies. --1147 Negra Howell R.N.. History Chief Complaint: (states sorethroat, productive cough, dyspnea since last night). PAST HX: (asthma). SOCIAL HX: Occasional smoker. No report of abuse. Historian: patient. --1147 Negra Howell R.N.. NURSING PROGRESS NOTES Patient ready for evaluation. --1317 Nithya Amin R.N. (Seen by Rajendra Bojorquez). --1403 Nithya Amin R.N.. DISPOSITION / DISCHARGE RR: 20 (unlabored). O2 saturation: 98 room air. Condition at departure: unchanged. No learning barriers present. Discharge instructions reviewed with the patient. Reviewed warnings. Reviewed medication; prescription (s) given to the patient. Treatments reviewed. Reviewed referrals. Patient verbalized understanding. The patient was discharged home. The patient left the Emergency Department ambulatory and via private vehicle. Departure time: 1334. --1404 Nithya Amin R.N.. Negra Amin R.N. Locked/Released at 12/02/2007 10:23 by Krystal Shields R.N. documented in this encounter Plan of Treatment Not on file documented as of this encounter Visit Diagnoses Not on filedocumented in this encounter Care Teams Cloth Beamer Relationship Specialty Start Date End Date Betsy Perez MD [address] [place] [phone] PCP - General 01/09/10 09/16/11 Carlos Damian MD [address] [facility] [address] [place] [phone] PCP - General 01/02/10 01/08/10 Nicky Fernandez APRN PCP - General 12/30/09 01/01/10 Betsy Perez MD [address] [place] [phone] PCP - General 08/08/09 12/29/09 Betsy Perez MD [address] [place] [phone] PCP - General 04/23/09 08/07/09 Nicky Fernandez APRN PCP - General 03/24/09 04/22/09 documented as of this encounter
--- OUTSIDE RECORDS SUMMARY | 2024-07-02 18:56 | XMS_ITS | Encounter Summary ---
Author Organization [facility] Address [address] [place] [address] Care Team Providers Care Ginner Helper Name Role Phone Unavailable Primary Care Provider Unavailabl e Encounter Details Date Type Department Care Team (Latest Contact Info) Description 12/01/2007 11:44 EST - 12/01/2007 11:59 EST Hospital Encounter [facility] Emergency Department - [facility] [address] [place] [address] Emergency, Default, MD Discharge Disposition: Home or [...]
--- OUTSIDE RECORDS SUMMARY | 2024-07-02 18:56 | XMS_ITS | Encounter Summary ---
Author Organization [facility] Address [address] [place] [address] Care Team Providers Care Produce Team Member Name Role Phone Nicky eFrnandez APRN Primary Care Provider Unava ilable Encounter Details Date Type Department Care Team (Latest Contact Info) Description 03/24/2009 10:37 EDT - 03/24/2009 23:59 EDT Hospital Encounter [facility] [address] [place] [address] Tamia Navas MD [address] [place] [phone] Discharge Disposition: Auto Discharge Social History Tobacco [...] Procedure Name Priority Date/Time Associated Diagnosis Comments PROFILE Routine 08/24/2009 12:0 0 EDT URINALYSIS WITH MICROSCOPIC IF POSITIVE Routine 08/24/2009 12:00 EDT UA REFLEX Routine 08/24/2009 12:00 EDT CHLAMYDIA/N. GONORRHOEAE AMPLIFIED NUCLEIC ACID Routine 08/24/2009 12:00 EDT BACTERIAL CULTURE, URINE Routine 08/24/2009 12:00 EDT VARICELLA IGG ANTIBODY Routine 9 12:00 EDT HIV 1/2 ANTIGEN AND ANTIBODY, 4TH GENERATION Routine 08/24/2009 12:00 EDT CYTOPATHOLOGY Routine 08/24/2009 0:00 EDT L SPINE 2-3 VIEWS 03/24/2009 12: 33 EDT documented in this encounter Results * CHLAMYDIA/GC AMPLIFIED (08/24/2009 12:00 EDT) Specimen Description Cervix [facility] Result CHLAMYDIA TRACHOMATIS DNA detected by trading assistant mediated amplification. [facility] Result No Neisseria gonorrhoeae DNA detected by trading assistant mediated amplification. [facility] 08/24/2009 12:0 0 EDT 08/25/2009 11:28 EDT Beba Pinzon MD MICROBIOLOGY - GENERAL ORDERABLES Performing Organization Address [facility] de Phone Number [facility] [address] [place] [address] * UA REFLEX (08/24/2009 12:00 EDT) Pathologist [facility] Emergency Department UA Billing Microscopic not indicated. [facility] 08/24/2009 12:0 0 EDT 08/24/2009 20:39 EDT Beba Pinzon MD URINALYSIS ORD ERABLES Performing Organization Address [facility] Co de Phone Number [facility] [address] [place] [address] * BACTERIAL CULTURE, URINE (08/24/2009 12:00 EDT) Specimen Description Urine [facility] Result Mixed gram positive growth If patient has a chronic indwelling catheter and requires antibiotictreatm ent, consult laboratory for further testing. If clinically indicated and patient is not catheterized, consider recollecting sample via in and out catheter. [facility] Report Status Final 08/26/2009 [facility] 08/24/2009 12:0 0 EDT 08/24/2009 20:39 EDT Beba Pinzon MD MICROBIOLOGY - GENERAL ORDERABLES Performing Organization Address [facility] Co de Phone Number [facility] [address] [place] [address] * URINALYSIS, CHEMICAL (08/24/2009 12:00 EDT) Color, UA Yellow [facility] Clarity, UA Cloudy [facility] Glucose, UA Neg NEG [facility] Bilirubin, UA Neg NEG [facility] Ketones, UA Neg NEG [facility] Specific [place], Urine 1.025 1.001 - 1.03 [facility] Blood, UA Neg NEG [facility] pH, UA 6.0 4.6 - 8.0 [facility] Protein, UA Neg NEG [facility] Urobilinogen, UA 0.2 0.2 - 1.0 mg/dL [facility] Nitrite, UA Neg NEG [facility] Leuk Esterase Neg NEG [facility] 08/24/2009 12:0 0 EDT 08/24/2009 20:39 EDT Beba Pinzon MD URINALYSIS ORD ERABLES Performing Organization Address [facility] Co de Phone Number [facility] [address] [place] [address] * VARICELLA IGG ANTIBODY (08/24/2009 12:00 EDT) Varicella IgG Ab Positive [facility] 08/24/2009 12:0 0 EDT 08/24/2009 20:39 EDT Beba Pinzon MD IMMUNOLOGY AND SEROLOGY ORDERABLES [facility] [address] [place] [address] * PROFILE (08/24/2009 12:00 EDT) WBC 8.63 4.0 - 12.4 K/cmm [facility] RBC 4.41 3.86 - 5.04 M/cmm [facility] Hemoglobin 13.3 11.6 - 15.2 gm/dl [facility] HCT 39.3 34.9 - 44.4 % [facility] MCV 89 81 - 98 fl [facility] MCH 30.2 26.7 - 33.3 pg [facility] MCHC 33.9 32.1 - 35.9 gm/dl [facility] PLT 292 141 - 320 K/cmm [facility] RDW-CV 13.2 11.7 - 14.6 % [facility] Neutrophils 66.4 45.5 - 79.7 % [facility] Lymphocytes 26.3 15.0 - 46.8 % [facility] Monocytes 4.9 1.8 - 12.0 % [facility] Eosinophils 1.2 0.6 - 6.9 % [facility] Basophils 1.2 0.2 - 1.4 % [facility] ABS Neutrophils 5.73 2.20 - 8.85 K/cmm [facility] ABS Lymphs 2.27 1.09 - 3.30 K/cmm [facility] ABS Monocytes 0.42 0.1 - 0.8 K/cmm [facility] ABS Eosinophils 0.11 0.03 - 0.61 K/cmm [facility] ABS Basophils 0.10 0.01 - 0.11 K/cmm [facility] Type of Diff: Automated [facility] ABO and Rh Type A POSITIVE SHILPA [facility] Antibody Screen Neg VISHNU [facility] Hepatitis B Surface Ag Negative Reference Range: ??Negative [facility] Rubella IgG Ab Antibody detected Assayed utilizing the DPC Immulite 2500. Values may vary with other methods. [facility] Syphilis Sero (RPR) NONREACT. NR Dils [facility] 08/24/2009 12:0 0 EDT 08/24/2009 20:39 EDT Beba Pinzon MD PACKAGES & DNA PROBE ORDERABLES Performing Organization Address [facility] Phone Number [facility] [address] [place] [address] * HIV ANTIBODY (08/24/2009 12:00 EDT) Pathologist [facility] Emergency Department HIV 1/2 Antibody Negative Reference Range: ??Negative [facility] 08/24/2009 12:0 0 EDT 08/24/2009 20:39 EDT Beba Pinzon MD IMMUNOLOGY AND SEROLOGY ORDERABLES Performing Organization Address [facility] Phone Number [facility] [address] [place] [address] * CYTOPATHOLOGY (08/24/2009 0:00 EDT) [facility] Pathology Report: CYTOPATHOLOGY REPORT ? Reports generated via electronic interface contain original data; ? however they are lacking the format of the original report. ? Caution should be taken when reading/interpreti ng unformatted reports. ? Name: ? KESHA LAGOS ? Accession #: ? [id number] ? : ? 1980 (Age: 28) ??F ?Collect Date: ? 08/24/2009 ? Location: ? [facility] ? Receive Date: ? 08/25/2009 ? Provider: ?BEBA E PINZON MD ? Copy to: ? Specimen/Source: ?Pap Test, Cervix/Endocervix, ThinPrep Imaging System ? with manual evaluation ? Last Menstrual Period: ? 8/8/09 ? Other: ? HPVA - HPV testing requested if ASC-US on the current ThinPrep Pap test. ? SPECIMEN ADEQUACY ? Satisfactory for Evaluation ? - transformation zone component present ? GENERAL CATEGORIZATION ? Negative for Intraepithelial Lesion or Malignancy ? INTERPRETATION ? Shift in aide present suggestive of bacterial vaginosis. ? Document reviewed and electronically signed by: ? Brad Glass, CT(ASCP) ? Report Date: ??08/31/2009 14:09 ? End of Report ? [facility] 08/24/2009 08/25/2009 Beba Pinzon MD PATHOLOGY BRIELLE CHAKRABORTY [facility] Organization Address City/State/ZIP Co de Phone Number [facility] [address] [place] [address] * L SPINE 2-3 VIEWS (03/24/2009 12:33 EDT) Anatomical Region Laterality Modality Other 03/24/2009 12:3 3 EDT 03/24/2009 15:13 EDT Narrative 03/24/2009 15:13 EDT 2 VIEWS LUMBAR SPINE March 24, 2009 12:33:00 PM Signs and Symptoms: ?? Low back pain, numbness down right leg. Comparison: None available. Findings: AP and lateral views of lumbar spine were obtained. Significant scoliotic curvature is not identified. No audrey- or retrolisthesis is noted. Lumbar vertebral body heights are well-maintained. There is very mild disc space narrowing at the L5-S1 level. Impression: Findings suggestive of early disc degeneration at L5-S1. Procedure Note 03/28/2009 2 VIEWS LUMBAR SPINE March 24, 2009 12:33:00 PM Signs and Symptoms: Low back pain, numbness down right leg. Comparison: None available. Findings: AP and lateral views of lumbar spine were obtained. Significant scoliotic curvature is not identified. No audrey- or retrolisthesis is noted. Lumbar vertebral body heights are well-maintained. There is very mild disc space narrowing at the L5-S1 level. Impression: Findings suggestive of early disc degeneration at L5-S1. Tamia Navas MD IMG DIAGNOSTIC IMAG ING ORDERABLES documented in this encounter Visit Diagnoses Not on filedocumented in this encounter Care Teams Produce Team Member Relationship Specialty Start Date End Date Nicky Fernandez, DELMI PCP - General 03/24/09 04/22/09 documented as of this encounter
--- OUTSIDE RECORDS SUMMARY | 2024-07-02 18:56 | XMS_ITS | Encounter Summary ---
Author Organization [facility] Address [address] [place] [address] Care Team Providers Care Stenographer Print Shop Name Role Phone Unavailable Primary Care Provider Unavailabl e Encounter Details Date Type Department Care Team (Latest Contact Info) Description 10/22/2005 0:12 EST - 10/22/2005 11:59 EST Hospital Encounter [facility] Emergency Department - [facility] [address] [place] [address] Emergency, Default, MD Discharge Disposition: Home or [...]
--- OUTSIDE RECORDS SUMMARY | 2024-07-02 18:56 | XMS_ITS | Encounter Summary ---
Author Organization [facility] Address [address] [place] [address] Care Team Providers Care Software Reliability Engineer Name Role Phone Betsy Perez MD Primary Care Provider [phone] Carlos Damian MD Primary Care Provider + [phone] Nicky Fernandez APRN Primary Care Provider Unava ilable Betsy Perez MD Primary Care Provider [phone] Betsy Perez MD Primary Care Provider [phone] Nicky Fernandez APRN Primary Care Provider Unava ilable Encounter Details Date Type Department Care Team (Late st Contact Info) Description 10/19/2006 Office Visit [facility] - Maple conversion [address] [place], [place] [address] Florentino [place] MD [address] [facility], Level 1 [place] [address] Social History Tobacco Use Types Packs/Day Years Used Date Smoking Tobacco: Never Assessed Sex and Gender Information Value Date Recorded Sex Assigned at Female 05/03/2022 19:33 EDT Gender Identity Female 05/02/2020 15:51 EDT Sexual Orientation Straight 05/03/2022 19 :33 EDT documented as of this encounter Progress Notes * Florentino [place] MD - 01/19/2010 0100 EST Department - Physician Summary Registration Date/Time: 10/19/2006 16:01 Arrived- By private vehicle. Historian- patient. Attending Note: I personally interviewed the patient and examined the patient. HISTORY OF PRESENT ILLNESS Chief Complaint: HEADACHE. This started about 4 days ago. Is still present. It is described as similar to previous headaches. Described as a global headache. At its maximum, severity described as severe. When seen in the E.D., severity described as severe. Modifying factors: relieved by nothing. Not worsened by anything. She has had photophobia and nausea. The patient has had similar symptoms previously. Not recently seen/assessed. Additional history - She has had fatigue, photophobia, nausea and a headache. No fever, chills, sweats or ear pain or drainage. No nasal congestion or discharge, sore throat, chest pain or palpitations. No difficulty breathing, cough, vomiting, abdominal pain or diarrhea. No urinary problems, neck pain, skin rash, head injury or alteration in mental status. No seizure,blackouts, numbness, weakness or easy bruising. REVIEW OF SYSTEMS The patient has had photophobia, nausea and a headache. No fever, chills, sweats, fatigue or ear pain. Nonasal congestion, sore throat, chest pain, palpitations or difficulty breathing. No vomiting, abdominal pain, constipation, diarrhea or urinary problems. No neck pain, back pain, skin rash, headinjury or dizziness. No fainting episodes, seizure, numbness, weakness or easy bruising. PAST HISTORY See nurses notes. Medications: None. Allergies: No known drug allergies. SOCIAL HISTORY Smoker. Alcohol use. PHYSICAL EXAM Appearance: Alert. Eyes: Pupils equal, round and reactive to light. Eyes normal inspection. ENT: Ears normal. Nose normal. Pharynx normal. Neck: Normal inspection. Neck supple. CVS: Normal heart rate and rhythm. Heart sounds normal. Pulses normal. Respiratory: No respiratory distress. Breath sounds normal. Abdomen: Abdomen soft and nontender. Back: Normal inspection. Skin: Normal skin color. Skin warm. No rash. Extremities: Extremities exhibit normal ROM. Neuro: Oriented X 3. Alert. Mood/affect normal. Speech normal. Cranial nerves normal (as tested). No cerebellar findings. No motor deficit. No sensory deficit. Reflexes normal. PROGRESS AND PROCEDURES E.D. Course: Patient hydrated with IV normal saline,. 8.30pm. Evaluation after observation, IV fluids and IV medication. Phenergan 12.5 mg IVP. Toradol 30 mg IVP. The patient's symptoms are now gone. Old medical records ordered. I consider ischemic stroke, subarachnoid hemorrhage, intracranial bleed, cerebral aneurysm, bacterial meningitis and subdural hematoma unlikely as a cause of headache in this patient. This is a partial list of diagnoses considered. Above considerations are based on history, physical exam, past history, social history and reassessment. Differential diagnosis was discussed with patient. Disposition: Condition: good. Discharged home. Discharged home in good condition and improved condition. CLINICAL IMPRESSION Headache. INSTRUCTIONS return if symptoms worsen or new symptoms develop.Go home to a quiet dark room.. Warnings: GENERAL WARNINGS: Return to the Emergency Department or contact your physician immediately if your condition worsens or changes unexpectedly, if not improving as expected, or if other problems arise. (Electronically signed by Florentino [place] MD 10/19/2006 21:09) Department - Nursing Summary Registration Date/Time: 10/19/2006 16:01 TRIAGE Initial Assessment Triage time 16:02. Acuity: LEVEL 4. BP: 135 / 54. HR: 81. RR: 18. Temp: 36.2 tympanic. O2 saturation: 99 % room air. Alert. No acute distress. --1605 Angela Hernandez R.N.. Medications None. --1605 Angela Hernandez R.N.. Allergies No known drug allergies. --1605 Angela Hernandez R.N.. History Chief Complaint: MIGRAINE HEADACHE. Onset (x4 days). Pain level now: 10/10. The patient has had nausea and vomiting. (photophobia, syncopal). PAST HX: Frequent migraine headaches (for years). SOCIAL HX: Cigarette smoker: less than 1 pack per day. Occasional alcohol use. No report of abuse. Historian: patient. --1605 Angela Hernandez R.N.. NURSING PROGRESS NOTES Progress (pt currently waiting for room, outside having a cigarette). --1607 Angela Hernandez R.N. PHENERGAN 12.5 mg diluted with IV fluid slow IVP over 2 minutes. IV patency established. IV site checked: no pain, redness, or swelling. IV flushed thoroughly pre- and post-medication administration.Sedative drug warning given to the patient. KETOROLAC 30 mg diluted with IV fluid slow IVP over 2 minutes. IV patency established. IV site checked: no pain, redness, or swelling. IV flushed thoroughly pre- and post-medication administration. . --1717 Shaylee Gil R.N. (Pt. sleeps for 2hours. Awakens and states feeling improved. TORRES 12/04 and just dull. ). --2042 Shaylee Gil R.N.. IV / I&O Flowsheet IV site #1: location left antecubital space. Started with 18g angiocath using 1% lidocaine intra-dermally and using aseptic technique; one attempt. Saline lock in place. IV patent. No redness or swelling at site. IV line accessed- flushed with saline and blood drawn. IV fluid started- #1 bag NS 1000 mL. --1715 Shaylee Gil R.N. IV fluid bag #1 discontinued. IV site discontinued: IV catheter intact, dressing applied. --2042 Shaylee Gil R.N. INTAKE: Total IV 1000 mL. --2043 Shaylee Gil R.N. OUTPUT: voids X1. --2043 Shaylee Gil R.N.. DISPOSITION / DISCHARGE Condition at departure: improved. Discontinued: IV site (IV catheter intact). Fall risk assessment completed. No fall risk identified. No learning barriers present. Discharge instructions reviewed with the patient. Reviewed referrals for followup (PMD). Patient verbalized understanding. The patientwas discharged home. The patient left the Emergency Department ambulatory and via taxi and with fare provided. --2052 Manish Baez R.N.. Darron Fox R.N., R.N. Locked/Released at 10/19/2006 21:13 by Manish Baez R.N. documented in this encounter Plan of Treatment Not on file documented as of this encounter Visit Diagnoses Not on filedocumented in this encounter Care Teams Software Reliability Engineer Relationship Specialty Start Date End Date Betsy Perez MD [address] [place] [phone] PCP - General 01/09/10 09/16/11 Carlos Damian MD [address] [place] [phone] PCP - General 01/02/10 01/08/10 Nicky Fernandez APRN PCP - General 12/30/09 01/01/10 Betsy Perez MD [address] [place] [phone] PCP - General 08/08/09 12/29/09 Betsy Perez MD [address] [place] [phone] PCP - General 04/23/09 08/07/09 Nicky Fernandez APRN PCP - General 03/24/09 04/22/09 documented as of this encounter
--- OUTSIDE RECORDS SUMMARY | 2024-07-02 18:56 | XMS_ITS | Encounter Summary ---
Author Organization [facility] Address [address] [place] [address] Care Team Providers Care Fiber Optic Assembly Worker Name Role Phone Betsy Perez MD Primary Care Provider [phone] Betsy Perez MD Primary Care Provider [phone] Nicky Fernandez APRN Primary Care Provider Unava ilable Encounter Details Date Type Department Care Team (Late st Contact Info) Description 12/11/2007 Before PRISM Converted Visit (Maple) [facility] - Maple conversion [address] [place] [address] Shalini Ahn Social History Tobacco Use Types Packs/Day Years Used Date Smoking Tobacco: Never Assessed Sex and Gender Information Value Date Recorded Sex Assigned at Female 05/03/2022 19:33 EDT Gender Identity Female 05/02/2020 15:51 EDT Sexual Orientation Straight 05/03/2022 19 :33 EDT documented as of this encounter Plan of Treatment Not on file documented as of this encounter Visit Diagnoses * Evaluation - Shalini Ahn MD - 10/05/2009 1422 EST Sports Medicine [facility] Orthopaedic Trauma Department [facility] [address] [place] [id number] NEW PATIENT EVALUATION - 12/11/2007 CONSULT We are seeing Yesenia in consultation at the request of the [facility] emergency department. CHIEF COMPLAINT Left foot pain. SUBJECTIVE Yesenia Fragoso is a 27-year-old obese white female who states that she fell down on December 04 [address] some friendsteps and twisted her left foot. The patient was unable to bear weight, presented to the emergency department for x- rays. X-rays were equivocal. It looked like possibly there wasa small avulsion fracture between the talonavicular joint on the dorsum of the foot but this may have been old. The patient was placed in a splint and non-weightbearing status. Today she presents forfurther treatment recommendations. She has one crutch, a well-worn splint, and complaining of excessive pain. PAST MEDICAL HISTORY The patients past medical history is reviewed on her intake sheet today. She is taking oxycodone for pain, 25 mg every four hours, and cyclobenzaprine 10 mg every six hours. She denies any known allergies. Previous active medical problems are negative for cancer, diabetes, hypertension, cardiovascular disease, thyroid disorder, or stroke. She lists depression as a current medicalproblem, lists nopertinent family history. SOCIAL HISTORY She is unemployed currently but in a return to work program that she has not gone to for about a week secondary to the left foot pain. She is a heavy smoker. She is a nondrinker. OBJECTIVE The physical exam today revealed an obese white female appearing her stated age, upset secondary tothe discomfort in her left lower leg and foot. To inspection, the patient has some ecchymosis and contusions along the medial anterior aspect of the tibia. She states this was sustained from her fall. She has no significant inflammation to the foot or to the ankle joint. No inflammation in her knee. To palpation she has no pain in the calf muscle, tenderness over the ecchymotic areas. She has some tenderness everywhere that I touch in her foot from her little toe to the big toe to the dorsum ofher foot to the midfoot to the lateral aspect of her foot to the calcaneus and this makes it very difficult to sort out her examination. Despite the pain she has no inflammation or ecchymosis, no bony deformities or abnormalities on the foot. Neurovascularly she has a 3+ posterior tibial pulse and sensation grossly intact to soft touch in all distributions coming into her foot. Range of motion revealed movable toes. Shehas good capillary refill. She has 90 degrees of dorsiflexion in her ankle and about 40 degrees of plantar flexion of the ankle and foot. Eversion against resistance, 4/5 strength limited by subjective pain and inversion. Similar findings so very difficult to sort out or localize the pain. The patient has no crepitus palpating the foot. The x-rays do show a small 2x2 mm avulsion to the dorsum of the navicular. This area is not particularly tender in relation to the other areas of her foot. There is no ecchymosis or inflammation there. Otherwise the patient has no fracture to the fifth metatarsal at the base. She has no evidence of widening along the Lisfranc joints. She has an old little avulsion to the distal end of the proximal phalanx of the great toe, but she is nontender to palpation here and she complains of pain along the medial aspect of the great toe and forefoot that radiates up her leg. The peroneal tendons appear intact. There is no laxity or mobility along the peroneal tendons. ASSESSMENT Contusion and sprain to the foot and lower leg with equivocal x-rays that are not consistent with her physical exam. PLAN would recommend that we put her in a 3D boot, non-weightbearing status for another week or so and then she can advance her weightbearing as tolerated. I will give her a prescription for [place] crutches, which may help with the low back pain that she complains of, put her out of her work program for one week but told her that we expect her to resume in some capacity once she has some partial weightbearing status and she will begin some skilled physical therapy during the interim as well, will followup in three weeks. Signed by HERO Villareal 12/16/2007 13:56 HERO Villareal D: - HERO Villareal - jtb Job ID: [id number] Doc ID: [id number] cc: MD Abilio New MD documented in this encounter Care Teams Fiber Optic Assembly Worker Relationship Specialty Start Date End Date Betsy Perez MD [address] [place], [place] [phone] PCP - General 08/08/09 12/29/09 Betsy Perez MD [address] [place] [phone] PCP - General 04/23/09 08/07/09 Nicky Fernandez APRN PCP - General 03/24/09 04/22/09 documented as of this encounter
--- OUTSIDE RECORDS SUMMARY | 2024-07-02 18:56 | XMS_ITS | Encounter Summary ---
Author Organization [facility] Address [address] [place] [address] Care Team Providers Care Dental Practitioner Name Role Phone Unavailable Primary Care Provider Unavailabl e Encounter Details Date Type Department Care Team (Latest Contact Info) Description 04/26/2008 21:37 EDT - 04/27/2008 11:59 EDT Hospital Encounter [facility] Emergency Department - [address] [address] Emergency, Default, MD Discharge Disposition: Auto Discharge Social History Tobacco [...] Diagnosis Comments FOOT 3 OR MORE VIEWS 04/26/2008 23:31 EDT documented in this encounter Results * FOOT 3 OR MORE VIEWS (04/26/2008 23:31 EDT) Anatomical Region Laterality Modality Other 04/26/2008 23:3 1 EDT Narrative 05/08/2009 13:13 EDT pt with swelling/pain dorsom of mid foot, r/o fx, hannah abnormalities FOOT 3 OR MORE VIEWS ??Apr 26, 2008 11:31:00 PM Indication: pt with swelling/pain dorsum of mid foot, r/o fx, hannah abnormalities Comparison: None Three views of the right foot were obtained. Osseous structures and alignment are unremarkable. No fractures are identified. I have personally reviewed the images and the above interpretation and agree with the findings. Procedure Note Favio Allen MD / Nicolás Taylor MD - 05/08/2009 pt with swelling/pain dorsom of mid foot, r/o fx, hannah abnormalities FOOT 3 OR MORE VIEWS Apr 26, 2008 11:31:00 PM Indication: pt with swelling/pain dorsum of mid foot, r/o fx, hannah abnormalities Comparison: None Three views of the right foot were obtained. Osseous structures and alignment are unremarkable. No fractures are identified. I have personally reviewed the images and the above interpretation and agree with the findings. Max Mcfarlane MD IMG DIAGNOSTIC IM AGING ORDERABLES documented in this encounter Visit Diagnoses Not on filedocumented in this encounter
--- OUTSIDE RECORDS SUMMARY | 2024-07-02 18:56 | XMS_ITS | Encounter Summary ---
Author Organization [facility] Address [address] [place] [address] Care Team Providers Care Strap Stitcher Name Role Phone Unavailable Primary Care Provider Unavailabl e Encounter Details Date Type Department Care Team (Latest Contact Info) Description 10/19/2006 16:01 [facility] Hospital Encounter [facility] Emergency Department - [facility] [address] [place] [address] Emergency, Default, MD Discharge Disposition: Home or [...]
--- OUTSIDE RECORDS SUMMARY | 2024-07-02 18:56 | XMS_ITS | Encounter Summary ---
Author Organization [facility] Address [address] [place] [address] Care Team Providers Care E Commerce Project Manager Name Role Phone Unavailable Primary Care Provider Unavailabl e Encounter Details Date Type Department Care Team (Latest Contact Info) Description 03/16/2005 16:15 EDT Hospital Encounter [facility] Emergency Department - [facility] [address] [place] [address] Emergency, Mad[place], MD Discharge Disposition: Home or [...]
--- OUTSIDE RECORDS SUMMARY | 2024-07-02 18:56 | XMS_ITS | Encounter Summary ---
Author Organization [facility] Address [address] [place] [address] Care Team Providers Care Receiver/Laborer Name Role Phone Betsy Perez MD Primary Care Provider [phone] Nicky Fernandez APRN Primary Care Provider Unava ilable Encounter Details Date Type Department Care Team (Late st Contact Info) Description 03/10/2009 Before PRISM Converted Visit (Maple) [facility]fusion [facility] - [address] [address] Alvarez Moon MD [address] [place] [phone] Social History Tobacco Use Types Packs/Day Years [...] Date/Time Associated Diagnosis Comments TEST, URINE Routine 03/10/2009 15:51 EDT documented in this encounter Results * TEST, URINE (03/10/2009 15:51 EDT) Result Neg Performed at [facility], [place], [place] EDD DIANE 03/10/2009 15:5 1 EDT 03/10/2009 15:55 EDT Alvarez Moon MD URINALYSIS ORDER [facility] [address] [place] [address] documented in this encounter Visit Diagnoses Not on filedocumented in this encounter Care Teams Receiver/Laborer Relationship Specialty Start Date End Date Betsy Perez MD [address] [place] [phone] PCP - General 04/23/09 08/07/09 Nicky Fernandez APRN PCP - General 03/24/09 04/22/09 documented as of this encounter
--- OUTSIDE RECORDS SUMMARY | 2024-07-02 18:56 | XMS_ITS | Encounter Summary ---
Author Organization [facility] Address [address] [place] [address] Care Team Providers Care Supervisor Home Energy Consultant Name Role Phone Betsy Perez MD Primary Care Provider [phone] Carlos Damian MD Primary Care Provider + [phone] Nicky Fernandez APRN Primary Care Provider Unava ilable Betsy Perez MD Primary Care Provider [phone] Betsy Perez MD Primary Care Provider [phone] Nicky Fernandez APRN Primary Care Provider Unava ilable Marlene Perry MD Primary Care Provider + [phone] None, Provider Primary Care Provider Emily Bowen APRN Primary Care Provider [phone] Perla Zamorano NP Primary Care Provider [phone] Encounter Details Date Type Department Care Team (Late st Contact Info) Description 03/10/2009 Before PRISM Converted Visit (Maple) [facility]fusion [facility] - [facility] [address] [place] [phone] Michelle Cuellar PA-C [address] [place] [phone] Social History Tobacco Use Types Packs/Day Years [...] Diagnosis Comments FOOT 3 OR MORE VIEWS 03/10/2009 16:39 EDT documented in this encounter Results * FOOT 3 OR MORE VIEWS (03/10/2009 16:39 EDT) Anatomical Region Laterality Modality Other 03/10/2009 16:3 9 EDT Narrative 03/22/2009 2:18 EDT Foot pain FOOT 3 OR MORE VIEWS ??Mar 10, 2009 4:39:00 PM Signs and Symptoms: ??Foot pain. Comparison: 12/05/2007. Findings: 3 views of the left foot show no acute abnormalities. Again noted are small ossicles as previously described in the dorsum of the foot, the great toe, and there is a small hook-like osteophyte at the lateral anterior extent of the calcaneus, also stable. 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 There are no soft tissue calcifications or evidence of joint space narrowing. There may be some soft tissue swelling plantar to the metatarsals. Impression: No acute bony findings. Procedure Note Rachel Graham nAn, OUTSIDE SALES MANAGER - 03/22/2009 Foot pain FOOT 3 OR MORE VIEWS Mar 10, 2009 4:39:00 PM Signs and Symptoms: Foot pain. Comparison: 12/05/2007. Findings: 3 views of the left foot show no acute abnormalities. Again noted are small ossicles as previously described in the dorsum of the foot, the great toe, and there is a small hook-like osteophyte at the lateral anterior extent of the calcaneus, also stable. 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 There are no soft tissue calcifications or evidence of joint space narrowing. There may be some soft tissue swelling plantar to the metatarsals. Impression: No acute bony findings. Michelle Cuellar PA-C [facility]AG[facility] ORDERABLES documented in this encounter Visit Diagnoses Not on filedocumented in this encounter Care Teams Supervisor Home Energy Consultant Relationship Specialty Start Date End Date Betsy Perez MD [address] [place] [phone] PCP - General 01/09/10 09/16/11 Carlos Damian MD [address] [place] [address] [address] [place] [phone] PCP - General 01/02/10 01/08/10 Nicky Fernandez, WHEAT AND O[employer] FLAKE MILLER PCP - General 12/30/09 01/01/10 Betsy Perez MD [address] [place] [phone] PCP - General 08/08/09 12/29/09 Betsy Perez MD [address] [place] [phone] PCP - General 04/23/09 08/07/09 Nicky Fernandez, WHEAT AND O[employer] FLAKE MILLER PCP - General 03/24/09 04/22/09 Marlene Perry MD [address] [address] PCP - General 09/17/11 08/28/17 None, Provider PCP - General 08/29/17 04/29/18 Emily Bejarano [employer]KE M[employer]ER [address] [place] [phone] PCP - General 04/30/18 04/25/22 Perla Zamorano NP [address] [place] [address] PCP - General 04/26/22 documented as of this encounter
--- OUTSIDE RECORDS SUMMARY | 2024-07-02 18:56 | XMS_ITS | Encounter Summary ---
Author Organization [facility] Address [address] [place] [address] Care Team Providers Care Mammography Tech Name Role Phone Unavailable Primary Care Provider Unavailabl e Encounter Details Date Type Department Care Team (Latest Contact Info) Description 09/18/2007 2:13 EDT - 09/18/2007 11:59 EDT Hospital Encounter [facility] [place] Emergency Department - [address] [address] Emergency, Default, MD Discharge Disposition: Home or [...]
--- OUTSIDE RECORDS SUMMARY | 2024-07-02 18:56 | XMS_ITS | Encounter Summary ---
Author Organization [facility] Address [address] [place] [address] Care Team Providers Care Operating System Designer Name Role Phone Carlos Dmaian MD Primary Care Provider + [phone] Nicky Fernandez APRN Primary Care Provider Unava ilable Betsy Perez MD Primary Care Provider [phone] Betsy Perez MD Primary Care Provider [phone] Nicky Fernandez APRN Primary Care Provider Unava ilable Encounter Details Date Type Department Care Team (Late st Contact Info) Description 11/23/2008 [facility] [address] [place] [address] Peewee Lowe PA-C [address] [place] [address] Social History Tobacco Use Types Packs/Day Years Used Date Smoking Tobacco: Never Assessed Sex and Gender Information Value Date Recorded Sex Assigned at Female 05/03/2022 19:33 EDT Gender Identity Female 05/02/2020 15:51 EDT Sexual Orientation Straight 05/03/2022 19 :33 EDT documented as of this encounter Progress Notes * Peewee Lowe PA - 01/06/2010 1521 EST Department - Physician Summary Registration Date/Time: 11/23/2008 10:40 Arrived- By private vehicle. Historian- patient. HISTORY OF PRESENT ILLNESS Chief Complaint- Injury to left leg. The injury happened about 3 days ago. (driveway). Note (slipped and injured her L leg). Patient is experiencing moderate pain. No other injury. Pt was evaluated previously in [place] with an US of her L leg and x-rays. The US showed some fluid in her knee but no DVT.. REVIEW OF SYSTEMS The patient complains of pain on weight bearing. She has had swelling and weakness. No tingling, numbness, suspected foreign body or skin laceration. PAST HISTORY See nurses notes. Medications: The patient's medications have been reviewed. Allergies: The patient's allergies have been reviewed. ADDITIONAL NOTES The nursing notes have been reviewed. PHYSICAL EXAM Appearance: Alert. No acute distress. Vital Signs: Have been reviewed. Extremities: Left knee: moderate tenderness and mild swelling located in the lateral joint line. Limited ROM secondary to pain. Small joint effusion present. Neurovascular intact distally. No erythema, abrasion, ecchymosis, puncture wound or deformity. PROGRESS AND PROCEDURES Patient/family counseled. Additional history sought. Old medical records ordered. ED Attending on duty and available for supervision: Jennifer Gunderson. Disposition: Condition: good. Discharged home. CLINICAL IMPRESSION Sprained left knee. INSTRUCTIONS Warnings: GENERAL WARNINGS: Return or contact your physician immediately if your condition worsens or changesunexpectedly, if not improving as expected, or if other problems arise. Prescription Medications: Vicodin 5 mg: take 1 orally every 6 hours as needed for pain. Dispense five (5). Generic substituteOK. Follow-up: Call tomorrow or the next day [facility] Scheduling at [phone], [phone]. Follow up. Call for the next available appointment. (Electronically signed by Florecita Edwards 11/23/2008 15:53) Department - Nursing Summary Registration Date/Time: 11/23/2008 10:40 TRIAGE Initial Assessment Triage time 10:42 Nov 23 2008. --1042 Ellen Lin R.N. Acuity: LEVEL 4. BP: 135 / 61. HR: 95. RR: 16. Temp: 36.7 C (tympanic). Alert. --1047 Ellen Lin R.N.. Medications Effexor (none x 1 month). Ibuprofen: 400 mg, as needed (po, last dose 2 days ago). --1047 Ellen Lin R.N.. Allergies No known drug allergies. --1047 Ellen Lin R.N.. History Chief Complaint: (Pt has had pain in lt leg, starting at lt thigh to toes x 4 weeks, seen at [facility], had u/s and told had probable cyst. Pt fell on ice onchristmas and pain worse now.). Pain level now: 09/03. Pain level (past 10). (intermittent CPs). PAST HX: (facial plastic surgery ). SOCIAL HX: Smoker: 1 pack per day. No alcohol use. No report of abuse. Arrived by private vehicle. --1047 Ellen Lin R.N.. NURSING PROGRESS NOTES Immobilizer applied to the left knee by budget technician; distal pulses intact, sensation intact and motor function within normal limits. --1159 Brenton Liu. DISPOSITION / DISCHARGE Condition at departure: improved and stable. Patient reports pain level on departure as 12/04. Fall risk assessment completed. No fall risk identified. No learning barriers present. Discharge instructions reviewed with the patient. Reviewed medication side effects and precautions; prescription (s) given to the patient (Vicodin 5mg 1 tablet every 6 hours as needed for pain). Reviewed referral to anorthopedic surgeon for followup. Patient verbalized understanding. Written instructions provided inEnglish. The patient was discharged home and accompanied by spouse. The patient left the Emergency Department ambulatory and via private vehicle. Spouse driving. --1201 Nona Suarez R.N.. Brenton Castillo R.N., R.N. Locked/Released at 11/23/2008 12:45 by Nona Suarez R.N. documented in this encounter Plan of Treatment Not on file documented as of this encounter Visit Diagnoses Not on filedocumented in this encounter Care Teams Operating System Designer Relationship Specialty Start Date End Date Carlos Damian MD [address] [phone] PCP - General 01/02/10 01/08/10 Nicky Fernandez, DELMI PCP - General 12/30/09 01/01/10 Betsy Perez MD [address] [place] [address] [phone] PCP - General 08/08/09 12/29/09 Betsy Perez MD [address] [place] [address] [phone] PCP - General 04/23/09 08/07/09 Nicky Fernandez, ELECTRIC REPAIR SUPERVISOR PCP - General 03/24/09 04/22/09 documented as of this encounter
--- OUTSIDE RECORDS SUMMARY | 2024-07-02 18:56 | XMS_ITS | Encounter Summary ---
Author Organization [facility] Address [address] [place] [address] Care Team Providers Care Ribbon Hanking Machine Operator Name Role Phone Betsy Perez MD Primary Care Provider [phone] Carlos Damian MD Primary Care Provider + [phone] Nicky Fernandez APRN Primary Care Provider Unava ilable Betsy Perez MD Primary Care Provider [phone] Betsy Perez MD Primary Care Provider [phone] Nicky Fernandez APRN Primary Care Provider Unava ilable Encounter Details Date Type Department Care Team (Late st Contact Info) Description 06/28/2006 Office Visit [facility] - [facility] conversion [address] [place] [address] Neymar Bojorquez, PA-C [address] [place] [address] Social History Tobacco Use Types Packs/Day Years Used Date Smoking Tobacco: Never Assessed Sex and Gender Information Value Date Recorded Sex Assigned at Female 05/03/2022 19:33 EDT Gender Identity Female 05/02/2020 15:51 EDT Sexual Orientation Straight 05/03/2022 19 :33 EDT documented as of this encounter Progress Notes * Neymar Bojorquez MD - 01/18/2010 2231 EST Department - Physician Summary Registration Date/Time: 06/28/2006 17:33 Time Seen; upon arrival. Arrived- By private vehicle. Historian - patient. HISTORY OF PRESENT ILLNESS Chief Complaint- Injury to the right foot. The injury happened 1 weeks ago. The patient sustained a direct blow - kicked an object. Occurred at work. Patient is experiencing moderate pain. REVIEW OF SYSTEMS The patient complains of pain on weight bearing. She has had swelling. No tingling, weakness, numbness, suspected foreign body or skin laceration. PAST HISTORY Negative. Medications: The patient's medications have been reviewed. Allergies: The patient's allergies have been reviewed. ADDITIONAL NOTES The nursing notes have been reviewed. PHYSICAL EXAM Vital Signs: Have been reviewed - Extremities: Foot/ankle soft-tissue tenderness. Right dorsal foot: moderatetenderness and mild swelling of the distal aspect and central aspect of the dorsal foot. Neurovascular intact distally. No ligamentous laxity present. No erythema, laceration, abrasion, puncture wound or ecchymosis. No deformity. No limitation in movement. No bony tenderness of the feet or ankles. Extremities not otherwisenegative. No ankle injury. Gait: Limping gait. Neuro, Vascular and Tendons: Vascular status intact. Sensation intact. Motor intact. Tendon function intact. LABS, X-RAYS, AND EKG X-Rays: Right ankle negative. Right foot negative. The X-rays were interpreted by the radiologist and contemporaneously by me. PROGRESS AND PROCEDURES E.D. Course: Pt has appt at [facility] saturday. 19:00 . ED Attending on duty and available for supervision: Andres So. Disposition: Discharged home in good condition. Discharged home in good condition. CLINICAL IMPRESSION Muscle strain right ankle . INSTRUCTIONS Apply ice intermittently (15-20 minutes at a time 4-6 times daily) for three days ( alternate with heat). Wear elastic wrap (Dre wrap) as directed for one weeks. Elevate affected areas above chest level for two days. OTC Medications: Motrin IB 200 mg (available over the counter): take 4 orally every 6 hours as needed for pain, stiffness or swelling. Follow-up: Follow up with Doctor [facility] Saturday as scheduled. (Electronically signed by Neymar Bojorquez, 06/28/2006 22:31) Department - Nursing Summary Registration Date/Time: 06/28/2006 17:33 TRIAGE Initial Assessment Triage time 17:34 . Acuity: LEVEL 5. BP: 134 / 66. HR: 85. RR: 16. Temp: 37.3 tympanic. Alert. No acute distress.--1738 Nicolás Chun R.N. Medications None. --1738 Nicolás Chun R.N. Allergies No known drug allergies. --1738 Nicolás Chun R.N. History Chief Complaint: ( ankle swelling). Location of injuries- right leg and right ankle. This occurred last night. Pain level now: 09/03. ( states shooting pain from foot to knee. denies any injury,denies any pain with ambulation in calf). Treatment TANK CLEANING SUPERVISOR: Ice and ( in triage). PAST HX: Negative. No infectious disease exposure. ( as a child plastic surgery to face). SOCIAL HX: Cigarette smoker: less than 1 pack per day. No alcohol use. Functional assessment: no impairments noted. No report of abuse. Historian: patient. Arrived by public transportation and unaccompanied. --1738 Nicolás Chun R.N. PAST HX. NURSING PROGRESS NOTES Progress ( pt received 800mg IBUPROPHEN PO by PA not previously charted). --1909 Shana Vann R.N. 6 inch dre bandage applied to right lower leg, right ankle and right foot; distal pulses intact, sensation intact and motor function within normal limits (2 wraps used forcompression). --1910 Brenton Kovacs DISPOSITION / DISCHARGE Condition at departure: unchanged. No learning barriers present. Discharge instructions reviewed with the patient. Reviewed referrals for followup. Patient verbalized understanding. Written instructions provided in French. The patient was discharged home. The patient left the Emergency Department ambulatory. --1911 Darron Mcintosh R.N., R.N. Heather Gibbs E.M.T. Locked/Released at 06/28/2006 20:29 by Shana Vann R.N. documented in this encounter Plan of Treatment Not on file documented as of this encounter Visit Diagnoses Not on filedocumented in this encounter Care Teams Ribbon Hanking Machine Operator Relationship Specialty Start Date End Date Betsy Perez MD [address] [place] [phone] PCP - General 01/09/10 09/16/11 Carlos Damian MD [address] [phone] PCP - General 01/02/10 01/08/10 Nicky Fernandez APRN PCP - General 12/30/09 01/01/10 Betsy Perez MD [address] [place] [phone] PCP - General 08/08/09 12/29/09 Betsy Perez MD [address] [place] [phone] PCP - General 04/23/09 08/07/09 Nicky Fernandez APRN PCP - General 03/24/09 04/22/09 documented as of this encounter
--- OUTSIDE RECORDS SUMMARY | 2024-07-02 18:56 | XMS_ITS | Encounter Summary ---
Author Organization [facility] Address [address] [place] [address] Care Team Providers Care Cane Burner Name Role Phone Unavailable Primary Care Provider Unavailabl e Encounter Details Date Type Department Care Team (Latest Contact Info) Description 11/29/2008 0:29 EST - 11/29/2008 11:59 EST Hospital Encounter [facility] Emergency Department - [facility] [address] [place] [address] Emergency, Default, MD Discharge Disposition: Home or [...] Name Priority Date/Time Associated Diagnosis Comments URINE SEDIMENT (MICRO) WITHOUT REFLEX TO CULTURE Routine 03/10/2009 15:48 EDT documented in this encounter Results * (ABNORMAL) URINE MICROSCOPIC ONLY (03/10/2009 15:48 EDT) WBC, UA 1 to 5 0 - 5 /HPF [facility] RBC, UA None seen 0 - 5 /HPF [facility] Squam Epithel, UA Few(A) NS /HPF [facility] Renal Epithel, UA None seen NS /HPF [facility] Bacteria, UA Frequent(A) NS /HPF [facility] Crystals, UA None seen /HPF [facility] Hyaline Casts, UA None seen /LPF [facility] Comment Microscopic results are unreliable on urines unrefrig >2hrs or refrig >8hrs. Performed at [facility], [place], [place] [facility] Mucus, UA Present [facility] 03/10/2009 15:4 8 EDT 03/10/2009 15:55 EDT Alvarez Moon MD URINALYSIS ORDER ROMEO [facility] [address] [place] [address] documented in this encounter Visit Diagnoses Not on filedocumented in this encounter
--- OUTSIDE RECORDS SUMMARY | 2024-07-02 18:56 | XMS_ITS | Encounter Summary ---
Author Organization [facility] Address [address] [place] [address] Care Team Providers Care Fabrication And Assembly Supervisor Name Role Phone Unavailable Primary Care Provider Unavailabl e Encounter Details Date Type Department Care Team (Latest Contact Info) Description 12/11/2007 12:55 EST Hospital Encounter [facility] - Maple conversion [address] [place] [address] Shalini Ahn Discharge Disposition: Auto Discharge Social History Tobacco [...]
--- OUTSIDE RECORDS SUMMARY | 2024-07-02 18:56 | XMS_ITS | Encounter Summary ---
Author Organization [facility] Address [address] [place] [address] Care Team Providers Care Clinical Reviewer Name Role Phone Betsy Perez MD Primary Care Provider [phone] Nicky Fernandez APRN Primary Care Provider Unava ilable Encounter Details Date Type Department Care Team (Late st Contact Info) Description 03/10/2009 Before PRISM Converted Visit ([facility]) [facility] - [address] [address] Vikas Chavez MD [address] [place] [phone] Social History Tobacco Use Types Packs/Day Years [...] Associated Diagnosis Comments BACTERIAL CULTURE, URINE Routine 03/10/2009 15:51 EDT documented in this encounter Results * BACTERIAL CULTURE, URINE (03/10/2009 15:51 EDT) Specimen Description Urine Performed at [facility], [place], [place] [facility] Result Greater than 100,000 CFU/ml ESCHERICHIA COLI Less than 10,000 CFU/ml Gram positive organism [facility] Report Status Final 03/12/2009 [facility] 03/10/2009 15:5 1 EDT 03/10/2009 15:55 EDT Narrative Organism Antibiotic Method Susceptibility Greater than 100,000 cfu/ml escherichia coli Ampicillin SUSCEPTIBILITY (ADAM) >=32 Resistant Greater than 100,000 cfu/ml escherichia coli Cefazolin SUSCEPTIBILITY (ADAM) <=4 Susceptible Greater than 100,000 cfu/ml escherichia coli Gentamicin SUSCEPTIBILITY (ADAM) >=16 Resistant Greater than 100,000 cfu/ml escherichia coli Trimethoprim-Sulfamethox azole SUSCEPTIBILITY (ADAM) <=20 Susceptible Greater than 100,000 cfu/ml escherichia coli Nitrofurantoin SUSCEPTIBILITY (ADAM) <=16 Susceptible Greater than 100,000 cfu/ml escherichia coli Tobramycin SUSCEPTIBILITY (ADAM) 8 Intermediate Greater than 100,000 cfu/ml escherichia coli Amikacin SUSCEPTIBILITY (ADAM) 4 Susceptible Greater than 100,000 cfu/ml escherichia coli Imipenem SUSCEPTIBILITY (ADAM) <=1 Susceptible Greater than 100,000 cfu/ml escherichia coli Piperacillin SUSCEPTIBILITY (ADAM) 16 Susceptible Greater than 100,000 cfu/ml escherichia coli Ceftriaxone SUSCEPTIBILITY (ADAM) <=1 Susceptible Greater than 100,000 cfu/ml escherichia coli Ciprofloxacin SUSCEPTIBILITY (ADAM) >=4 Resistant Greater than 100,000 cfu/ml escherichia coli Piperacillin Tazobactam SUSCEPTIBILITY (ADAM) <=4 Susceptible Vikas Chavez MD MICROBIOLOGY - GENERAL ORDERABLES Performing Organization Address City/State/[facility] Co de Phone Number [facility] [address] [place] [address] documented in this encounter Visit Diagnoses Not on filedocumented in this encounter Care Teams Clinical Reviewer Relationship Specialty Start Date End Date Betsy Perez MD [address] [place] [phone] PCP - General 04/23/09 08/07/09 Nicky Fernandez APRN PCP - General 03/24/09 04/22/09 documented as of this encounter
--- OUTSIDE RECORDS SUMMARY | 2024-07-02 18:56 | XMS_ITS | Encounter Summary ---
Author Organization [facility] system Address [address] [place] [address] Care Team Providers Care Solar Energy Sales Specialist Name Role Phone Unavailable Primary Care Provider Unavailabl e Encounter Details Date Type Department Care Team (Late st Contact Info) Description 04/17/2006 8:44 EDT - 04/17/2006 11:59 EDT Hospital Encounter [facility] Perioperative Services- [address] [address] Ai Costa MD [address] [place] [address], [address] [place] [phone] Discharge Disposition: Home or Self [...] or Self Care documented in this encounter OR Notes * OR Surgeon - Ai Costa MD - 04/17/2006 0000 EDT PROCEDURE REPORT PT TYPE: OPPROC PT LOC: [id number] SERVICE DATE: 04/17/2006 SURGEON: Maile Arce MDCheung Wong, MD MECHANICAL LABORATORY TECHNICIAN: Norah Peralta MD PREOPERATIVE DIAGNOSIS: Extensive vulvar, perianal, and umbilical condyloma. POSTOPERATIVE DIAGNOSIS: Extensive vulvar, perianal, and umbilical condyloma. PROCEDURE: Extensive perianal excision of condyloma, extensive vulvar excision of condyloma, and excision of umbilical condyloma. ANESTHESIA: General. INDICATIONS: The patient has been complaining of increasing size in the perianal and vulvar condyloma that are now causing pain, discomfort, and bleeding. The treatment options were fully discussed with the patient. The patient opted for surgical intervention. FINDINGS: The patient had extensive perianal condyloma. She also had condyloma in the posterior fourchette, involving both the right and left side. She also had condyloma involving the left side of her mons and there were umbilical condyloma. NARRATIVE: The patient was brought to the operating room, and after successful attainment of anesthesia, the patient was prepped and draped in the usual sterile fashion. At this time, the above findings were noted and attention was first turned to the perianal area. Using the cautery, the condylomas were placed on tension and a visible skin stalk was identified. This stalk was then incised and then the condyloma was excised. Nineteen perianal condylomas were excised in this fashion. This was surrounding the perianal canal. After this was performed, attention was then turned to the posterior fourchette. Once again, it was noted that there were condyloma involving the posterior fourchette, onboth the right and left side of the posterior fourchette. Using the sfashion of using the cautery and putting the condyloma on tension to excise normal skin, this was performed and 16 condylomas fromthe posterior fourchette (both right and left sides) were removed. Next, attention was turned to the mons on the left side and four condylomas were excised in that fashion. Attention was then turned to the umbilicus and two perianal condylomas were then excised. Next, the skin defects that were created from the excisions were then closed with 2-0 Vicryl in an interrupted fashion, with good hemostasis. At the end of the surgical procedure, the patient was to the recovery room in good, stable condition. Dr. Costa was present throughout the entire procedure. ESTIMATED BLOOD LOSS: Minimal. COMPLICATIONS: None. Signed by Ai Costa MD 04/23/2006 11:26 Ellen Costa MDDirector, Division of Gynecologic OncologyAi Costa MD Ai Costa MD Director, Division of Gynecologic Oncology - Ai Costa MD Neo little Job ID: [id number] Document ID: [id number] cc: MARIPOSA Rangel MD Cheung Wong, MD documented in this encounter Plan of Treatment Not on file documented as of this encounter Visit Diagnoses Not on filedocumented in this encounter
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
--- OUTSIDE RECORDS SUMMARY | 2024-07-02 18:57 | XMS_ITS | Encounter Summary ---
Author Organization [facility] Address [address] [place] [address] Care Team Providers Care Director Acute Name Role Phone Betsy Perez MD Primary Care Provider [phone] Carlos Damian MD Primary Care Provider + [phone] Nicky Fernandez APRN Primary Care Provider Unava ilable Betsy Perez MD Primary Care Provider [phone] Betsy Perez MD Primary Care Provider [phone] Nicky Fernandez APRN Primary Care Provider Unava ilable Encounter Details Date Type Department Care Team (Late st Contact Info) Description 07/17/2004 Office Visit [facility] - Maple conversion [address] [place], [place] [address] Alvarez Snyder MD 111 [facility], Level 1 [place] [phone] Social History Tobacco Use Types Packs/Day Years Used Date Smoking Tobacco: Never Assessed Sex and Gender Information Value Date Recorded Sex Assigned at Female 05/03/2022 19:33 EDT Gender Identity Female 05/02/2020 15:51 EDT Sexual Orientation Straight 05/03/2022 19 :33 EDT documented as of this encounter Progress Notes * Alvarez Snyder MD - 01/27/2010 1214 EST Emergency Department ??? Physician Summary Registration Date/Time 07/17/2004 14:43 Time Seen (15:41 ). Arrived- By private vehicle. Historian- patient. HISTORY OF PRESENT ILLNESS Chief Complaint: SORE THROAT. and bilateral ear pain This started about 2 days ago and is still present and worsening. She has had a sore throat and ear pain. No mouth sores, nasal discharge, toothache, jaw pain or facial pain. Patient has not had similar symptoms previously. Not recently seen/assessed. REVIEW OF SYSTEMS Last normal menstrual period- Jun 27 The patient has had fever and a cough and notes having headache. No eye discomfort, difficulty breathing, chest pain, nausea or diarrhea. No abdominal pain, difficulty with urination, fainting episodes, vomiting or joint pain. No skin rash or enlarged lymph nodes. Denies current . PAST HISTORY See nurses notes. Strep throat. No history of heart disease, lung disease, renal disease, neurological disease or GI disease. No history of hypertension or diabetes mellitus. Medications: None. Allergies: No known drug allergies. SOCIAL HISTORY Smoker. ADDITIONAL NOTES The nursing notes have been reviewed. PHYSICAL EXAM Appearance: Alert. No acute distress. Vital Signs: The vital signs have been reviewed. Head: No tenderness to palpation/percussion over the sinuses, mandibular swelling or maxillary swelling. Eyes: Pupils equal, round and reactive to light. ENT: Abnormal ear exam: Right Ear: there is TM erythema. Left Ear: there is TM dullness present andmoderate TM erythema. Nose normal. Mild pharyngeal erythema. Lips normal. Gums normal. No trismus. No tonsillar exudate, peritonsillar mass, muffled or hoarse voice, drooling or dental decay. Neck: Mildly enlarged right anterior neck nodes. mildly enlarged left anterior neck nodes. Trachea midline. Neck supple. CVS: Normal heart rate and rhythm. Heart sounds normal. Respiratory: No respiratory distress.Breath sounds normal. Abdomen: Abdomen soft. Skin: Normal skin color. Extremities: Extremities nontender. Neuro: Oriented X 3. PROGRESS AND PROCEDURES Disposition: Discharged home in good condition. CLINICAL IMPRESSION Otitis media. INSTRUCTIONS Warnings: GENERAL WARNINGS: Return or contact your physician immediately if your condition worsens or changesunexpectedly, if not improving as expected, or if other problems arise. Prescription Medications: Amoxicillin, Liquid 250mg/5cc: take two (2) teaspoons orally every 6 hours for 5 days. No refill. OTC Medications: Motrin (available over the counter): take according to label instructions. Follow-up: Follow up with your doctor. Alvarez Snyder MD (Electronically signed Alvarez Snyder MD 07/17/2004 19:16) Physician's Clinical Report Emergency Department ??? Nursing Summary Registration Date/Time 07/17/2004 14:43 TRIAGE Initial Assessment Triage time 14:43 Acuity: LEVEL 4. BP: 144 / 78 HR: 76 RR: 20 Temp: 36.6 tympanic --14:45 Marleny Fernandez R.N. Medications None. --14:45 Marleny Fernandez R.N. Allergies No known drug allergies. --14:45 Marleny Fernandez R.N. History Chief Complaint: SORE THROAT. (2 days ago). Pain level now: 8/10. The patient has had hoarseness. Reports experiencing sweating episodes. No treatment prior to arrival. PAST HX: Negative. SOCIAL HX: Smoker. Arrived by private vehicle. Historian: patient. --14:45 Marleny Fernandez R.N. NURSING PROGRESS NOTES Progress Patient gowned. Call light placed in reach. Side rails up x 1. Bed placed in lowest position. Brakes of bed on. --14:49 Saloni Martino (pt lying on stretcher, eating ice, NAD noted - ). --15:35 Mary Live R.N. HYDROCODONE/APAP 5 mg X 5 tab to go PO. Sedative drug warning given to the patient. --16:03 Luisa Austin R.N. DISPOSITION / DISCHARGE No barriers to learning present. Discharge instructions reviewed with the patient. Reviewed medication side effects, dosing and course; prescription (s) given to the patient. Patient verbalized understanding. The patient was discharged home. The patient left the Emergency Department ambulatory. --16:03 Darron Hernandez R.N., E.R.T. Sarah Pollinger R.N. Luisa Norman, R.N. Locked/Released at 07/17/2004 16:04 by Luisa Austin R.N. documented in this encounter Plan of Treatment Not on file documented as of this encounter Visit Diagnoses Not on filedocumented in this encounter Care Teams Director Acute Relationship Specialty Start Date End Date Betsy Perez MD [address] [place] [phone] PCP - General 01/09/10 09/16/11 Carlos Damian MD [address] [place] [address] [phone] PCP - General 01/02/10 01/08/10 Nicky Fernandez APRN PCP - General 12/30/09 01/01/10 Betsy Perez MD [address] [place] [address] [phone] PCP - General 08/08/09 12/29/09 Betsy Perez MD [address] [place] [address] [phone] PCP - General 04/23/09 08/07/09 Nicky Fernandez APRN PCP - General 03/24/09 04/22/09 documented as of this encounter
--- OUTSIDE RECORDS SUMMARY | 2024-07-02 18:57 | XMS_ITS | Encounter Summary ---
Author Organization [facility] Address [address] [place] [address] Care Team Providers Care Brush Washer Name Role Phone Unavailable Primary Care Provider Unavailabl e Encounter Details Date Type Department Care Team (Late st Contact Info) Description 02/10/2002 21:21 EST Hospital Encounter [facility] - Other [address] [place] [address] Eryn Espinal MD Unknown, Provider, Social History Tobacco Use Types Packs/Day Years [...] Priority Date/Time Associated Diagnosis Comments GROUP B STREPTOCOCCUS SUSCEPTIBILITY Routine 02/10/2002 11:15 EST documented in this encounter Results * GROUP B STREPTOCOCCUS SUSCEPTIBILITY (02/10/2002 11:15 EST) Specimen Description Vaginal and Rectal [facility] Result Few STREPTOCOCCUS, BETA HEMOLYTIC GROUP G NO GROUP B BETA STREPTOCOCCI ISOLATED [facility] Report Status Final [id number] [facility] 02/10/2002 11:1 5 EST 02/10/2002 17:45 EST Eryn Espinal MD HISTORICAL LAB FOR SQ LOAD [facility] [address] [place] [address] documented in this encounter Visit Diagnoses Not on filedocumented in this encounter
--- OUTSIDE RECORDS SUMMARY | 2024-07-02 18:57 | XMS_ITS | Encounter Summary ---
Author Organization [facility] Address [address] [place] [address] Care Team Providers Care Rabbler Name Role Phone Unavailable Primary Care Provider Unavailabl e Encounter Details Date Type Department Care Team (Latest Contact Info) Description 04/02/2003 2:40 EDT - 04/02/2003 11:59 EDT Hospital Encounter [facility] Emergency Department - [address] [address] Emergency, Default, MD Discharge Disposition: Home or [...]
--- OUTSIDE RECORDS SUMMARY | 2024-07-02 18:57 | XMS_ITS | Encounter Summary ---
Author Organization [facility] Address [address] [place] [address] Care Team Providers Care Watch Dial Printer Name Role Phone Unavailable Primary Care Provider Unavailabl e Encounter Details Date Type Department Care Team (Latest Contact Info) Description 12/07/2002 2:45 EST - 12/07/2002 11:59 EST Hospital Encounter [facility] Emergency Department - [address] [address] Emergency, Default, MD Discharge Disposition: Home or [...] Date/Time Associated Diagnosis Comments GLUCOSE, GLUCOMETER Routine 12/07/2002 3 :39 EST documented in this encounter Results * GLUCOSE, GLUCOMETER (12/07/2002 3:39 EST) Glucose, Fingerstick 107 70 - 110 MG/DL [facility] [place] [id number] Test Performed by Nursing Services [facility] 12/07/2002 3:39 EST 12/07/2002 13:04 EST Provider Unknown CHEMISTRY & BLOOD GA S ORDERABLES [facility] [address] [place] [address] documented in this encounter Visit Diagnoses Not on filedocumented in this encounter
--- OUTSIDE RECORDS SUMMARY | 2024-07-02 18:57 | XMS_ITS | Encounter Summary ---
Author Organization [facility] Address [address] [place] [address] Care Team Providers Care Border Guard Name Role Phone Unavailable Primary Care Provider Unavailabl e Encounter Details Date Type Department Care Team (Latest Contact Info) Description 01/10/2002 11:00 EST - 01/10/2002 11:59 EST Hospital Encounter [address] [address] Oscar Gutierrez MD Discharge Disposition: Home or Self Care [...]
--- OUTSIDE RECORDS SUMMARY | 2024-07-02 18:57 | XMS_ITS | Encounter Summary ---
Author Organization [facility] Address [address] [place] [address] Care Team Providers Care Basic Combatant Swimmer Name Role Phone Unavailable Primary Care Provider Unavailabl e Encounter Details Date Type Department Care Team (Latest Contact Info) Description 05/04/2003 13:00 EDT Hospital Encounter [facility] Emergency Department - [facility] [address] [place] [address] Emergency, [place], Discharge Disposition: Home or Self Care Social [...]
--- OUTSIDE RECORDS SUMMARY | 2024-07-02 18:57 | XMS_ITS | Encounter Summary ---
Author Organization [facility] Address [address] [place] [address] Care Team Providers Care Custodial Operations Manager Name Role Phone Unavailable Primary Care Provider Unavailabl e Encounter Details Date Type Department Care Team (Latest Contact Info) Description 03/17/2002 4:50 EDT - 03/17/2002 11:59 EDT Hospital Encounter [facility] - [place] conversion [address] [place] [address] Oscar Gutierrez MD Discharge Disposition: Home or [...] Associated Diagnosis Comments BACTERIAL CULTURE, URINE Routine 03/18/2002 16:45 EDT documented in this encounter Results * BACTERIAL CULTURE, URINE (03/18/2002 16:45 EDT) Specimen Description Urine [facility] Result 10,000 to 100,000 CFU/ml Mixed gram positive growth [facility] Report Status Final [id number] [facility] 03/18/2002 16:4 5 EDT 03/18/2002 18:08 EDT Sonya Juares MD MICROBIOLOGY - GENER AL ORDERABLES Performing Organization Address City/State/[facility] [place] [address] documented in this encounter Visit Diagnoses Not on filedocumented in this encounter
--- OUTSIDE RECORDS SUMMARY | 2024-07-02 18:57 | XMS_ITS | Encounter Summary ---
Author Organization [facility] Address [address] [place] [address] Care Team Providers Care Front End Alignment Specialist Name Role Phone Unavailable Primary Care Provider Unavailabl e Encounter Details Date Type Department Care Team (Latest Contact Info) Description 11/06/1999 3:43 EST - 11/06/1999 11:59 EST Hospital Encounter [facility] Emergency Department - [address] [address] Emergency, Default, MD Discharge Disposition: Home or [...] Procedure Name Priority Date/Time Associated Diagnosis Comments FOREARM 2 VIEWS Routine 11/06/1999 4:24 EST documented in this encounter Results * FOREARM 2 VIEWS (11/06/1999 4:24 EST) Anatomical Region Laterality Modality Other 11/06/1999 4:24 EST Narrative 10/04/2009 12:43 EST R/O FX, ??FALL MID RADAL UNNA TENDERNESS ECHIMOSIS RIGHT FOREARM 11/06/99 AT 0425 HOURS. HISTORY: s/p fall, pain mid radius and ulna, r/o fracture. DESCRIPTION. AP and lateral views of the right forearm were obtained. The bones and soft tissues are within normal limits. No fracture or dislocation is identified. The attending radiologist has reviewed the images, and concurs with the findings described above. /lr Procedure Note Rich Fernandez MD / Giorgio Cross MD - 10/04/2009 R/O FX, FALL MID RADAL UNNA TENDERNESS ECHIMOSIS RIGHT FOREARM 11/06/99 AT 0425 HOURS. HISTORY: s/p fall, pain mid radius and ulna, r/o fracture. DESCRIPTION. AP and lateral views of the right forearm were obtained. The bones and soft tissues are within normal limits. No fracture or dislocation is identified. The attending radiologist has reviewed the images, and concurs with the findings described above. /lr Linda D Glendy MONAHAN IMStefani DIAGNOSTIC IMAGI NG ORDERABLES documented in this encounter Visit Diagnoses Not on filedocumented in this encounter
--- OUTSIDE RECORDS SUMMARY | 2024-07-02 18:57 | XMS_ITS | Encounter Summary ---
Author Organization [facility] Address [address] [place] [address] Care Team Providers Care Automation And Controls Supervisor Name Role Phone Unavailable Primary Care Provider Unavailabl e Encounter Details Date Type Department Care Team (Latest Contact Info) Description 01/20/2001 9:14 EST - 01/20/2001 11:59 EST Hospital Encounter [facility] Emergency Department - [facility] [address] [place] [address] Emergency, Default, MD Discharge Disposition: Home or [...] Diagnosis Comments GROUP A STREP CULTURE Routine 01/20/2001 10:45 EST NECK SOFT TISSUE Routine 01/20/2001 10:2 2 EST HEMAGRAM & DIFF Routine 01/20/2001 10:13 EST HOLD Routine 01/20/2001 10:13 EST BACTERIAL CULTURE, BLOOD Routine 01/20/2001 10:05 EST BACTERIAL CULTURE, BLOOD Routine 01/20/2001 10:00 EST documented in this encounter Results * CULTURE FOR GROUP A BETA STREPTOCOCCUS (01/20/2001 10:45 EST) Specimen Description Throat [facility] Result NO GROUP A BETA STREPTOCOCCI ISOLATED [facility] Report Status Final [id number] [facility] 01/20/2001 10:4 5 EST 01/20/2001 10:47 EST Default Emergency MD MICROBIOLOGY - GENE [facility] ORDERABLES [facility] [address] [place] [address] * NECK SOFT TISSUE (01/20/2001 10:22 EST) Anatomical Region Laterality Modality Other 01/20/2001 10:2 2 EST Narrative 10/04/2009 23:00 EST S/P LEFT NECK PAIN, PALPABLE MASS, LEFT NECK WITH PUS ON LEFT TONSIL R/O ABCESS NECK 01/20/2001 10:20 HISTORY: Status post left neck pain, palpable mass. Left neck with pus on left tonsil. Rule out abscess. FINDINGS: We have a soft tissue lateral view of the neck. The examination shows that the tonsils are enlarged. There is evidence suggesting some soft tissue density in the sublingual area, however, no evidence of air or air fluid level is seen and no definite abscess is identified. Incidentally noted is the presence of a wisdom tooth with some evidence of some rarefaction about the root suggesting the possibility of papito-apical disease. /rml Procedure Note Carlos Araujo MD - 10/04/2009 S/P LEFT NECK PAIN, PALPABLE MASS, LEFT NECK WITH PUS ON LEFT TONSIL R/O ABCESS NECK 01/20/2001 10:20 HISTORY: Status post left neck pain, palpable mass. Left neck with pus on left tonsil. Rule out abscess. FINDINGS: We have a soft tissue lateral view of the neck. The examination shows that the tonsils are enlarged. There is evidence suggesting some soft tissue density in the sublingual area, however, no evidence of air or air fluid level is seen and no definite abscess is identified. Incidentally noted is the presence of a wisdom tooth with some evidence of some rarefaction about the root suggesting the possibility of papito-apical disease. /bob Halina Fraga MD IMG DIAGNOSTIC IMAGI NG ORDERABLES * HOLD (01/20/2001 10:13 EST) Hold Hold for further testing. Specimen will be held for 30 days. [facility] 01/20/2001 10:1 3 EST 01/20/2001 10:13 EST Default Emergency MD CHEMISTRY & BLOOD G ORDERABLES [facility] [address] [place] [address] * (ABNORMAL) HEMAGRAM & DIFF (01/20/2001 10:13 EST) WBC 12.30 4.0 - 12.4 K/cmm [facility] RBC 4.48 3.86 - 5.04 M/cmm [facility] Hemoglobin 13.4 11.6 - 15.2 gm/dl [facility] HCT 39.1 34.9 - 44.4 % [facility] MCV 87 81 - 98 fl [facility] MCH 29.8 26.7 - 33.3 pg [facility] MCHC 34.2 32.1 - 35.9 gm/dl [facility] PLT 268 141 - 320 K/cmm [facility] RDW-CV 12.1 11.7 - 14.6 % [facility] % Neutrophils 82.8(H) 45.5 - 79.7 % [facility] % Lymphocytes 11.7(L) 15.0 - 46.8 % [facility] % Monocytes 4.8 1.8 - 12.0 % [facility] % Eosinophils 0.4(L) 0.6 - 6.9 % [facility] % Basophils 0.3 0.2 - 1.4 % [facility] ABS Neutrophils 10.18(H) 2.20 - 8.85 K/cmm [facility] ABS Lymphs 1.44 1.09 - 3.30 K/cmm [facility] ABS Monocytes 0.59 0.1 - 0.8 K/cmm [facility] ABS Eosinophils 0.05 0.03 - 0.61 K/cmm [facility] ABS Basophils 0.04 0.01 - 0.11 K/cmm [facility] Type of Diff: Automated [facility] 01/20/2001 10:1 3 EST 01/20/2001 10:13 EST Default Emergency MD HISTORICAL LAB FOR SQ LOAD Performing Organization Address [facility] Co de Phone Number [facility] [address] [place] [address] * BACTERIAL CULTURE, BLOOD (01/20/2001 10:05 EST) Specimen Description Blood Right Antecubita l [facility] Result No growth [facility] Report Status Final [id number] [facility] 01/20/2001 10:0 5 EST 01/20/2001 10:17 EST Default Emergency MICROBIOLOGY - GENE RAL ORDERABLES Performing Organization Address [facility] Co de Phone Number [facility] [address] [place] [address] * BACTERIAL CULTURE, BLOOD (01/20/2001 10:00 EST) Specimen Description Blood Left Hand [facility] Result No growth [facility] Report Status Final [id number] [facility] 01/20/2001 10:0 0 EST 01/20/2001 10:16 EST Default Emergency MICROBIOLOGY - GENE RAL ORDERABLES Performing Organization Address [facility] Co de Phone Number [facility] [address] [place] [address] documented in this encounter Visit Diagnoses Not on filedocumented in this encounter
--- OUTSIDE RECORDS SUMMARY | 2024-07-02 18:57 | XMS_ITS | Encounter Summary ---
Author Organization [facility] Address [address] [place] [address] Care Team Providers Care Security Advisor Name Role Phone Unavailable Primary Care Provider Unavailabl e Encounter Details Date Type Department Care Team (Late st Contact Info) Description 12/24/2001 18:35 EST Hospital Encounter [facility] - Other [address] [place] [address] Lauren Nguyen MD [address] [place] [address],[address] [phone] Unknown, Provider, Social History Tobacco Use Types [...] Procedure Name Priority Date/Time Associated Diagnosis Comments KLEIHAUER BLOOD Routine 12/24/2001 11:15 EST COMPLETE BLOOD COUNT Routine 12/24/2001 11:15 EST documented in this encounter Results * KLEIHAUER BLOOD (12/24/2001 11:15 EST) [facility] No cells seen Rev'd by Pathologist 0.0 - 1.9 ml F/M HEMORRHAGE [facility] 12/24/2001 11:1 5 EST 12/24/2001 18:33 EST Lauren Nguyen MD HEMATOLOGY & PF4 ORD ERABLES Performing Organization Address [facility] de Phone Number [facility] [address] [place] [address] * (ABNORMAL) HEMAGRAM (12/24/2001 11:15 EST) WBC 13.96(H) 4.0 - 12.4 K/cmm [facility] RBC 3.63(L) 3.86 - 5.04 M/cmm [facility] Hemoglobin 11.5(L) 11.6 - 15.2 gm/dl [facility] HCT 32.2(L) 34.9 - 44.4 % [facility] MCV 89 81 - 98 fl [facility] MCH 31.7 26.7 - 33.3 pg [facility] MCHC 35.7 32.1 - 35.9 gm/dl [facility] PLT 295 141 - 320 K/cmm [facility] RDW-CV 12.3 11.7 - 14.6 % [facility] 12/24/2001 11:1 5 EST 12/24/2001 18:33 EST Lauren Nguyen MD HEMATOLOGY & PF4 ORD ERABLES Performing Organization Address [facility] Co de Phone Number [facility] [address] [place] [address] documented in this encounter Visit Diagnoses Not on filedocumented in this encounter
--- OUTSIDE RECORDS SUMMARY | 2024-07-02 18:57 | XMS_ITS | Encounter Summary ---
Author Organization [facility] Address [address] [place] [address] Care Team Providers Care Civil Engineer'S Aide Name Role Phone Unavailable Primary Care Provider Unavailabl e Encounter Details Date Type Department Care Team (Late st Contact Info) Description 01/07/2002 21:35 EST Hospital Encounter [facility] - Other [address] [place] [address] Lauren Nguyen MD [address] [place] [address],[address] [phone] Unknown, Provider, Social History Tobacco [...] Procedure Name Priority Date/Time Associated Diagnosis Comments PARVOVIRUS B19 AB, IGG, IGM, S Routine 01/07/2002 10:00 EST COMPLETE BLOOD COUNT Routine 01/07/2002 10:00 EST FERRITIN Routine 01/07/2002 10:00 EST documented in this encounter Results * PARVOVIRUS ANTIBODY (01/07/2002 10:00 EST) Parvovirus IgG Ab Negative(Note) -- EXPECTED VALUES -- ? Negative ? [facility] Parvovirus IgM Ab Negative(Note) No antibody detected ? -- EXPECTED VALUES -- ? Negative ? The presence of IgM class antibodies indicates recent ? infection. ??The presence of IgG antibodies only is ? indicative of past exposure. ??The prevalence of Parvovirus ? B19 IgG antibodies increases with age. ??The age specific ? prevalence of antibodies to parvovirus is 2% to 9% of ? children under 5, 15% to 35% in children 5 to 18 years of ? age, and 30% to 60% in adults (19 years or older.) ??Both ? IgG and IgM may be present at or soon after onset of ? illness and reach peak titers within 30 days. ??Because ? IgG antibody may persist for years, diagnosis of acute ? infection is made by the detection of IgM antibodies. ? Please note change in Methodology effective October ? 18th,2001. ? TEST PERFORMED OR REFERRED BY [facility] ? [facility] ? [address] ? [place], [place] ??[address] ? [facility] 01/07/2002 10:0 0 EST 01/07/2002 18:44 EST Lauren Nguyen MD IMMUNOLOGY AND SEROL OGY ORDERABLES Performing Organization Address [facility] de Phone Number [facility] [address] [place] [address] * (ABNORMAL) FERRITIN (01/07/2002 10:00 EST) Ferritin 7(L) 8 - 151 ng/ml [facility] 01/07/2002 10:0 0 EST 01/07/2002 18:44 EST Lauren Nguyen MD CHEMISTRY & BLOOD GA S ORDERABLES Performing Organization Address [facility] de Phone Number [facility] [address] [place] [address] * (ABNORMAL) HEMAGRAM (01/07/2002 10:00 EST) WBC 11.01 4.0 - 12.4 K/cmm [facility] RBC 3.71(L) 3.86 - 5.04 M/cmm [facility] Hemoglobin 11.3(L) 11.6 - 15.2 gm/dl [facility] HCT 32.8(L) 34.9 - 44.4 % [facility] MCV 88 81 - 98 fl [facility] MCH 30.5 26.7 - 33.3 pg [facility] MCHC 34.5 32.1 - 35.9 gm/dl [facility] PLT 275 141 - 320 K/cmm [facility] RDW-CV 12.2 11.7 - 14.6 % [facility] 01/07/2002 10:0 0 EST 01/07/2002 18:44 EST Lauren Nguyen MD HEMATOLOGY & PF4 ORD ERABLES [facility] [address] [place] [address] documented in this encounter Visit Diagnoses Not on filedocumented in this encounter
--- OUTSIDE RECORDS SUMMARY | 2024-07-02 18:57 | XMS_ITS | Encounter Summary ---
Author Organization [facility] Address [address] [place] [address] Care Team Providers Care Deliverer Merchandise Name Role Phone Unavailable Primary Care Provider Unavailabl e Encounter Details Date Type Department Care Team (Late st Contact Info) Description 03/18/2002 11:33 EDT Hospital Encounter [facility] - Other [address] [place] [address] Call, Sonya Arrington MD [address] [place] [phone] Unknown, ProviderMD Social History Tobacco Use Types Packs/Day Years [...]
--- OUTSIDE RECORDS SUMMARY | 2024-07-02 18:57 | XMS_ITS | Encounter Summary ---
Author Organization [facility] Address [address] [place] [address] Care Team Providers Care Parcel Carrier Name Role Phone Unavailable Primary Care Provider Unavailabl e Encounter Details Date Type Department Care Team (Latest Contact Info) Description 08/26/2001 2:21 EDT - 08/26/2001 11:59 EDT Hospital Encounter [facility] Emergency Department - [address] [address] Emergency, Default, MD Discharge Disposition: Home or [...] Associated Diagnosis Comments TIBIA FIBULA 2 VIEWS Routine 08/26/2001 4:19 EDT JOINT SURVEY 1 VIEW Routine 08/26/2001 4:19 EDT documented in this encounter Results * JOINT SURVEY 1 VIEW (08/26/2001 4:19 EDT) Anatomical Region Laterality Modality Other 08/26/2001 4:19 EDT Narrative 10/05/2009 4:41 EST UNKNOWN ANKLE INJURY R/O FRACTURE RIGHT TIBIA AND FIBULA: 08/26/01 Two views of the tibia and fibula and a single view of the ankle show no abnormality in the bones, joints, or soft tissues. /eloise Procedure Note Kala Fernando RN / Brad Wiley MD - 10/05/2009 UNKNOWN ANKLE INJURY R/O FRACTURE RIGHT TIBIA AND FIBULA: 08/26/01 Two views of the tibia and fibula and a single view of the ankle show no abnormality in the bones, joints, or soft tissues. /eloise Anamika CAMPBELL DIAGNOSTIC IMAGI NG ORDERABLES * TIBIA FIBULA 2 VIEWS (08/26/2001 4:19 EDT) Anatomical Region Laterality Modality Other 08/26/2001 4:19 EDT Narrative 10/05/2009 4:41 EST UNKNOWN ANKLE INJURY R/O FRACTURE Procedure Note Kala Fernando RN / Brad Wiley MD - 10/05/2009 UNKNOWN ANKLE INJURY R/O FRACTURE Anamika CAMPBELL DIAGNOSTIC IMAGI NG ORDERABLES documented in this encounter Visit Diagnoses Not on filedocumented in this encounter
--- OUTSIDE RECORDS SUMMARY | 2024-07-02 18:57 | XMS_ITS | Encounter Summary ---
Author Organization [facility] Address [address] [place] [address] Care Team Providers Care Stull Hewer Name Role Phone Unavailable Primary Care Provider Unavailabl e Encounter Details Date Type Department Care Team (Latest Contact Info) Description 03/05/2003 2:37 EDT - 03/05/2003 11:59 EDT Hospital Encounter [facility] Emergency Department - [address] [address] Emergency, Default, MD Discharge Disposition: Home or [...] Date/Time Associated Diagnosis Comments COMPLETE BLOOD COUNT AND DIFFERENTIAL Routine 03/05/2003 3:00 EDT documented in this encounter Results * HEMAGRAM AND DIFFERENTIAL (03/05/2003 3:00 EDT) WBC 9.99 4.0 - 12.4 K/cmm [facility] RBC 4.66 3.86 - 5.04 M/cmm [facility] Hemoglobin 14.0 11.6 - 15.2 gm/dl [facility] HCT 41.1 34.9 - 44.4 % [facility] MCV 88 81 - 98 fl [facility] MCH 30.1 26.7 - 33.3 pg [facility] MCHC 34.2 32.1 - 35.9 gm/dl [facility] PLT 308 141 - 320 K/cmm [facility] RDW-CV 12.8 11.7 - 14.6 % [facility] % Neutrophils 65.3 45.5 - 79.7 % [facility] % Lymphocytes 30.1 15.0 - 46.8 % [facility] % Monocytes 3.1 1.8 - 12.0 % [facility] % Eosinophils 1.2 0.6 - 6.9 % [facility] % Basophils 0.3 0.2 - 1.4 % [facility] ABS Neutrophils 6.52 2.20 - 8.85 K/cmm [facility] ABS Lymphs 3.01 1.09 - 3.30 K/cmm [facility] ABS Monocytes 0.31 0.1 - 0.8 K/cmm [facility] ABS Eosinophils 0.12 0.03 - 0.61 K/cmm [facility] ABS Basophils 0.03 0.01 - 0.11 K/cmm [facility] Type of Diff: Automated [facility] 03/05/2003 3:00 EDT 03/05/2003 3:03 EDT Default Emergency MD PACKAGES & DNA PROB E ORDERABLES Performing Organization Address City/State/[place] Co de Phone Number [facility] [address] [place] [address] documented in this encounter Visit Diagnoses Not on filedocumented in this encounter
--- OUTSIDE RECORDS SUMMARY | 2024-07-02 18:57 | XMS_ITS | Encounter Summary ---
Author Organization [facility] Address [address] [place] [address] Care Team Providers Care Sweatband Shaper Name Role Phone Unavailable Primary Care Provider Unavailabl e Encounter Details Date Type Department Care Team (Latest Contact Info) Description 06/27/2001 23:56 EDT - 06/28/2001 11:59 EDT Hospital Encounter [facility] Emergency Department - [address] [address] Emergency, Default, MD Discharge Disposition: Home or [...]
--- OUTSIDE RECORDS SUMMARY | 2024-07-02 18:57 | XMS_ITS | Encounter Summary ---
Author Organization [facility] Address [address] [place] [address] Care Team Providers Care Refinery Operator Vapor Recovery Unit Name Role Phone Unavailable Primary Care Provider Unavailabl e Encounter Details Date Type Department Care Team (Latest Contact Info) Description 07/17/2004 14:43 EDT Hospital Encounter [facility] Emergency Department - [facility] [address] [place] [address] Emergency, Madina, MD Discharge Disposition: Home or [...]
--- OUTSIDE RECORDS SUMMARY | 2024-07-02 18:57 | XMS_ITS | Encounter Summary ---
Author Organization [facility] Address [address] [place] [address] Care Team Providers Care French Binder Name Role Phone Betsy Perez MD Primary Care Provider [phone] Carlos Damian MD Primary Care Provider [phone] Nicky Fernandez APRN Primary Care Provider Unava ilable Betsy Perez MD Primary Care Provider [phone] Betsy Perez MD Primary Care Provider [phone] Nicky Fernandez APRN Primary Care Provider Unava ilable Encounter Details Date Type Department Care Team (Late st Contact Info) Description 01/13/[address] [facility] - [facility] [address] [place] [address] Rafael Steel MD [address] [place] [phone] Social History Tobacco Use Types Packs/Day Years Used Date Smoking Tobacco: Never Assessed Sex and Gender Information Value Date Recorded Sex Assigned at Female 05/03/2022 19:33 EDT Gender Identity Female 05/02/2020 15:51 EDT Sexual Orientation Straight 05/03/2022 19 :33 EDT documented as of this encounter Progress Notes * Sebastian, Conv Canal Tender - 01/27/2010 1639 EST Emergency Department ??? Physician Summary Registration Date/Time 01/13/2004 20:14 Arrived- By private vehicle. Historian- patient. Attending Note: I supervised care provided by the resident. We have discussed the case. I have reviewed the note. I personally interviewed the patient and examined the patient. HISTORY OF PRESENT ILLNESS Chief Complaint: HEADACHE. This started 2 days ago Is still present. It is described as pain and pressure. Located in the occipital region and has had neck pain. At its maximum, severity described as severe. She has had photophobia, nausea and vomiting. REVIEW OF SYSTEMS No fever, muscle aches, sinus pressure, ear pain or sore throat. No chest pain, difficulty breathing, cough, abdominal pain or skin rash. PAST HISTORY History of chronic migraine headaches. Medications: None. Allergies: Codeine SOCIAL HISTORY Smoker. ADDITIONAL NOTES The nursing notes have been reviewed. PHYSICAL EXAM Appearance: Alert. Patient in mild distress. Vital Signs: The vital signs have been reviewed- temperature normal. Eyes: Pupils equal, round and reactive to light. Eyes normal inspection. ENT: Ears normal. Nose normal. Pharynx normal. Neck: Normal inspection. Neck supple. CVS: Normal heart rate and rhythm. Heart sounds normal. Respiratory: No respiratory distress. Breath sounds normal. Abdomen: Abdomen soft and nontender. Skin: No rash. Neuro: Oriented X 3. Alert. Cranial nerves normal (as tested). No cerebellar findings. No motor deficit. No sensory deficit. PROGRESS AND PROCEDURES E.D. Course: 22:16. Feeling much better. Wants to go. Old medical records reviewed. Disposition: Discharged home. Condition: good. CLINICAL IMPRESSION Migraine headache. INSTRUCTIONS Follow-up: Follow up with your doctor tomorrow. Abilio [place] M.D. (Electronically signed Abilio [place] M.D. 01/13/2004 22:17) Physician's Clinical Report Emergency Department ??? Physician Summary Registration Date/Time 01/13/2004 20:14 Arrived- By private vehicle. Historian- patient. HISTORY OF PRESENT ILLNESS Chief Complaint: HEADACHE. This started 2 days ago Is still presentand worsening. It is described as pain. Quality described as unlike previous headaches. Located in the occipital region and has had neck pain. At its maximum, severity described as severe. When seen in the E.D., severity described as severe. Modifying factors: worsened by bright light, noise, moving head, general movement and excitement;relieved by rest, closing eyes, quiet room and dark room. She has had blurred vision, photophobia, nausea and vomiting. No preceding symptoms, numbness or weakness. (recently had tetanus shot and TB shot). REVIEW OF SYSTEMS The patient has had mid back pain. No fever, muscle aches, sinus pressure, ear pain or sore throat.No chest pain, difficulty breathing, cough, abdominal pain or diarrhea. No pain with urination, skin rash or enlarged lymph nodes. PAST HISTORY History of occasional chronic migraine headaches; after 15ft fall several years ago Medications: See nurses notes. Allergies: Seenurses notes. SOCIAL HISTORY Resides in a public residential. PHYSICAL EXAM Appearance: Anxious. Patient in moderate distress. Eyes: Photophobia present. ENT: Pharynx normal. Neck: Meningeal signs present, as evidenced by neck stiffness and nuchal rigidity. CVS: Normal heart rate and rhythm. Heart sounds normal. Respiratory: No respiratory distress. Breath sounds normal. Abdomen: Abdomen soft and nontender. No organomegaly. Back: Normal inspection. Neuro: Oriented X 3. Alert. Mood/affect normal. Speech normal. No motor deficit. No sensory deficit. PROGRESS AND PROCEDURES E.D. Course: Compazine 10 mg IVP. Symptoms much better wants to go home ED Attending on duty and available for supervision: Jennifer [place]. Disposition: Discharged home. CLINICAL IMPRESSION Migraine headache. INSTRUCTIONS Follow-up: Follow up with your doctor tomorrow. Rafael Steel M.D. (Electronically signed Rafael Steel M.D. 01/14/2004 13:54) Physician's Clinical Report Emergency Department ??? Nursing Summary Registration Date/Time 01/13/2004 20:14 TRIAGE Initial Assessment Triage time 20:15 --20:16 Bridget Garcia R.N. Acuity: LEVEL 3. BP: 111 / 65 HR: 80 RR: 16 Temp: 35.9tympanic Alert. --20:17 Bridget Garcia R.N. Medications (tylenol,). --20:16 Bridget Garcia R.N. Allergies (codeine). --20:16 Bridget Garcia R.N. History Chief Complaint: (occipital headache, dizzy, visual changes, vomiting, body aches). (onset 48hrs. ago). Pain level now: 09/03. PAST HX: (migraines). SOCIAL HX: Smoker. Denies alcohol use. No report of abuse. Arrived by private vehicle. Historian: patient. --20:16 Bridget Garcia R.N. NURSING PROGRESS NOTES Progress COMPAZINE 10 mg diluted with 5cc IVP over 10 minutes. --21:51 Lois Bass R.N. (Called to report she wants to go home. States she doesn't feel any better and wants her IV removed. Asked her to wait and speak c , she agreed. Dr. [place] notified.). --22:18 Lois Bass R.N. IV / I&O Flowsheet IV site #1, location right antecubital space. Saline lock in place. IV patent. No redness or swelling at site. IV line accessed- flushed with saline. --21:12 Shahzad Gamino E.MBlairTBlair IV site discontinued: IV catheter intact (SL d/c'd bypt, site clear.). --22:24 Lois Bass R.N. DISPOSITION / DISCHARGE Condition at departure: stable. No barriers to learning present. Discharge instructions reviewed with the patient. Provided and reviewed written instructions. Patient verbalized understanding. The patient was discharged home and accompanied by physician office rep. The patient left the Emergency Department amb ulatory and via private vehicle. --22:25 Darron Kelly R.N., Peter, E.MBlairTBlair Harding R.N. Locked/Released at 01/14/2004 8:34 by Jeanine Harding R.N. documented in this encounter Plan of Treatment Not on file documented as of this encounter Visit Diagnoses Not on filedocumented in this encounter Care Teams French Binder Relationship Specialty Start Date End Date Betsy Perez MD [address] [place] [phone] PCP - General 01/09/10 09/16/11 Carlos Damian MD [address] [place] [phone] PCP - General 01/02/10 01/08/10 Nicky Fernandez APRN PCP - General 12/30/09 01/01/10 Betsy Perez MD [address] [place] [phone] PCP - General 08/08/09 12/29/09 Betsy Perez MD [address] [place] [address] [phone] PCP - General 04/23/09 08/07/09 Nicky Fernandez APRN PCP - General 03/24/09 04/22/09 documented as of this encounter
--- OUTSIDE RECORDS SUMMARY | 2024-07-02 18:57 | XMS_ITS | Encounter Summary ---
Author Organization [facility] Address [address] [place] [address] Care Team Providers Care Freezer Machine Operator Name Role Phone Unavailable Primary Care Provider Unavailabl e Encounter Details Date Type Department Care Team (Latest Contact Info) Description 07/03/2001 12:36 EDT Hospital Encounter [facility] Emergency Department - [facility] [address] [place] [address] Emergency, Madina, MD Discharge Disposition: Home or [...]
--- OUTSIDE RECORDS SUMMARY | 2024-07-02 18:57 | XMS_ITS | Encounter Summary ---
Author Organization [facility] Address [address] [place] [address] Care Team Providers Care Textile Pin Worker Name Role Phone Unavailable Primary Care Provider Unavailabl e Encounter Details Date Type Department Care Team (Latest Contact Info) Description 01/19/2002 22:52 EST - 01/20/2002 11:59 EST Hospital Encounter [facility] [place] [facility] [address] [place] [address] Sofia Ly MD Discharge Disposition: Home or Self Care [...] Diagnosis Comments URINALYSIS WITH MICROSCOPIC IF POSITIVE Routine 01/19/2002 22:51 EST UA REFLEX Routine 01/19/2002 22:51 EST documented in this encounter Results * UA REFLEX (01/19/2002 22:51 EST) UA Billing Microscopic not indicated. [facility] 01/19/2002 22:5 1 EST 01/19/2002 23:01 EST Sofia Ly MD URINALYSIS ORDERABLE S Performing Organization Address [facility] Co de Phone Number [facility] [address] [place] [address] * (ABNORMAL) URINALYSIS (01/19/2002 22:51 EST) Color, UA Yellow [facility] Clarity, UA Cloudy [facility] Glucose, UA Norm NORM [facility] Bilirubin, UA Small(A) NEG [facility] Ketones, UA Trace(A) NEG [facility] Specific [place], Urine >1.030(H) 1.005 - 1.02 [facility] Blood, UA Neg NEG [facility] pH, UA 6.0 5.0 - 9.0 [facility] Protein, UA 1+(A) NEG [facility] Urobilinogen, UA 1.0(A) NORM mg/dL [facility] Nitrite, UA Neg NEG [facility] Leuk Esterase Neg NEG [facility] UA Comment Refractometer specific gravity ? 1.033 ? Results greater than 1.035 suggest possible interference from glucose or ?radiographic dye. [facility] 01/19/2002 22:5 1 EST 01/19/2002 23:01 EST Sofia Ly MD URINALYSIS ORDERABLE S Performing Organization Address [facility] Co de Phone Number [facility] [address] [place] [address] documented in this encounter Visit Diagnoses Not on filedocumented in this encounter
--- OUTSIDE RECORDS SUMMARY | 2024-07-02 18:57 | XMS_ITS | Encounter Summary ---
Author Organization [facility] Address [address] [place] [address] Care Team Providers Care Life Consultant Name Role Phone Unavailable Primary Care Provider Unavailabl e Encounter Details Date Type Department Care Team (Latest Contact Info) Description 11/08/2000 8:49 EST - 11/08/2000 11:59 EST Hospital Encounter [facility] Emergency Department - [address] [address] Emergency, Default, MD Discharge Disposition: Home or [...] Procedure Name Priority Date/Time Associated Diagnosis Comments ANKLE 3 OR MORE VIEWS Routine 11/08/2000 9:35 EST documented in this encounter Results * ANKLE 3 OR MORE VIEWS (11/08/2000 9:35 EST) Anatomical Region Laterality Modality Other 11/08/2000 9:35 EST Impressions 10/05/2009 0:04 EST IMPRESSION: No fracture. The attending radiologist has reviewed the images, and concurs with the findings described above. /rml Narrative 10/05/2009 0:04 EST S/P FALL, PAIN, INVERSION INJURY R/O FRAVTURE RIGHT ANKLE 11/08/2000 09:30 FINDINGS: Three views of the right ankle demonstrate minimal lateral soft tissue swelling. No acute abnormality is identified in the bones or joints. Procedure Note Kala Fernando RN / Carlos Araujo MD - 10/05/2009 S/P FALL, PAIN, INVERSION INJURY R/O FRAVTURE RIGHT ANKLE 11/08/2000 09:30 FINDINGS: Three views of the right ankle demonstrate minimal lateral soft tissue swelling. No acute abnormality is identified in the bones or joints. IMPRESSION IMPRESSION: No fracture. The attending radiologist has reviewed the images, and concurs with the findings described above. /bob Ling MONAHAN IMStefani DIAGNOSTIC I MAGING ORDERABLES documented in this encounter Visit Diagnoses Not on filedocumented in this encounter
--- OUTSIDE RECORDS SUMMARY | 2024-07-02 18:57 | XMS_ITS | Encounter Summary ---
Author Organization [facility] Address [address] [place] [address] Care Team Providers Care Secretary Of State Name Role Phone Unavailable Primary Care Provider Unavailabl e Encounter Details Date Type Department Care Team (Latest Contact Info) Description 03/01/2002 18:10 EDT Hospital Encounter [facility] - [facility] [address] [place] [address] Carlos Ndiaye MD [address] [place] [address] [address] [place] [phone] Discharge Disposition: Home-Health Care Svc Social History Tobacco Use Types Packs/Day Years Used Date Smoking Tobacco: Never Assessed Sex and Gender Information Value Date Recorded Sex Assigned at Female 05/03/2022 19:33 EDT Gender Identity Female 05/02/2020 15:51 EDT Sexual Orientation Straight 05/03/2022 19 :33 EDT documented as of this encounter Discharge Disposition Disposition Code Departure Means Destination Home-Health Care Svc documented in this encounter Plan of Treatment Not on file documented as of this encounter Visit Diagnoses Not on filedocumented in this encounter
--- OUTSIDE RECORDS SUMMARY | 2024-07-02 18:57 | XMS_ITS | Encounter Summary ---
Author Organization [facility] Address [address] [place] [address] Care Team Providers Care Campus Chaplain Name Role Phone Unavailable Primary Care Provider Unavailabl e Encounter Details Date Type Department Care Team (Latest Contact Info) Description 05/16/2002 3:39 EDT - 05/16/2002 11:59 EDT Hospital Encounter [facility] Emergency Department - [address] [address] Emergency, Default, MD Discharge Disposition: Home or [...] Procedure Name Priority Date/Time Associated Diagnosis Comments HEMAGRAM & DIFF Routine 05/16/2002 4:11 EDT LIPASE Routine 05/16/2002 4:11 EDT HEPATIC FUNCTION PANEL (ALB,ALK PHOS,ALT,AST,DBIL,T OT LESLIE,TOT PROT) Routine 05/16/2002 4:11 EDT documented in this encounter Results * (ABNORMAL) LIVER FUNCTION TESTS (05/16/2002 4:11 EDT) Albumin 3.2 3.0 - 5.5 g/dl [facility] Total Protein 6.6 6.0 - 8.5 g/dl [facility] Total Alkaline Phosphatase 76 38 - 126 U/L [facility] ALT 13(L) 15 - 75 U/L [facility] AST 13 8 - 50 U/L [facility] Unconjugated Bilirubin 0.1 0.1 - 1.1 mg/dl [facility] Conjugated Bilirubin 0.0 0.0 - 0.3 mg/dl [facility] Bilirubin, Total 0.2 0.2 - 1.3 mg/dl [facility] 05/16/2002 4:11 EDT 05/16/2002 4:12 EDT Default Emergency MD CHEMISTRY & BLOOD G ORDERABLES Performing Organization Address [facility] de Phone Number [facility] [address] [place] [address] * LIPASE (05/16/2002 4:11 EDT) Pathologist [facility] Lipase 39 0 - 210 U/L [facility] 05/16/2002 4:11 EDT 05/16/2002 4:12 EDT Default Emergency MD CHEMISTRY & BLOOD G ORDERABLES Performing Organization Address [facility] de Phone Number [facility] [address] [place] [address] * (ABNORMAL) HEMAGRAM & DIFF (05/16/2002 4:11 EDT) Pathologist [facility] WBC 11.99 4.0 - 12.4 K/cmm [facility] RBC 4.13 3.86 - 5.04 M/cmm [facility] Hemoglobin 12.0 11.6 - 15.2 gm/dl [facility] HCT 35.0 34.9 - 44.4 % [facility] MCV 85 81 - 98 fl [facility] MCH 29.0 26.7 - 33.3 pg [facility] MCHC 34.3 32.1 - 35.9 gm/dl [facility] PLT 331(H) 141 - 320 K/cmm [facility] RDW-CV 13.0 11.7 - 14.6 % [facility] % Neutrophils 67.5 45.5 - 79.7 % [facility] % Lymphocytes 28.5 15.0 - 46.8 % [facility] % Monocytes 2.7 1.8 - 12.0 % [facility] % Eosinophils 0.7 0.6 - 6.9 % [facility] % Basophils 0.6 0.2 - 1.4 % [facility] ABS Neutrophils 8.09 2.20 - 8.85 K/cmm [facility] ABS Lymphs 3.42(H) 1.09 - 3.30 K/cmm [facility] ABS Monocytes 0.33 0.1 - 0.8 K/cmm [facility] ABS Eosinophils 0.09 0.03 - 0.61 K/cmm [facility] ABS Basophils 0.07 0.01 - 0.11 K/cmm [facility] Type of Diff: Automated [facility] 05/16/2002 4:11 EDT 05/16/2002 4:12 EDT Default Emergency HISTORICAL LAB FOR SQ LOAD [facility] [address] [place] [address] documented in this encounter Visit Diagnoses Not on filedocumented in this encounter
--- OUTSIDE RECORDS SUMMARY | 2024-07-02 18:57 | XMS_ITS | Encounter Summary ---
Author Organization [facility] Address [address] [place] [address] Care Team Providers Care Decorative Greens Cutter Name Role Phone Unavailable Primary Care Provider Unavailabl e Encounter Details Date Type Department Care Team (Latest Contact Info) Description 07/12/2003 13:05 EDT Hospital Encounter [facility] Emergency Department - [address] [address] Emergency, Default, MD Discharge Disposition: Home or [...] Diagnosis Comments N. GONORRHOEAE AMPLIFIED PROBE Routine 07/12/2003 13:50 EDT ZZCHLAMYDIA TRACHOMATIS AMPLIFIED PROBE Routine 07/12/2003 13:50 EDT documented in this encounter Results * N. GONORRHOEAE AMPLIFIED PROBE (07/12/2003 13:50 EDT) Result No Neisseria gonorrhoeae DNA detected by oxide furnace tender mediated amplification. [facility] Report Status Final [id number] [facility] Specimen Description Cervix [facility] 07/12/2003 13:5 0 EDT 07/12/2003 14:03 EDT Default Emergency MICROBIOLOGY - GENE RAL ORDERABLES Performing Organization Address [facility] de Phone Number [facility] [address] [place] [address] * CHLAMYDIA TRACHOMATIS AMPLIFIED PROBE (07/12/2003 13:50 EDT) Specimen Description Cervix [facility] Result No Chlamydia trachomatis DNA detected by oxide furnace tender mediated amplification. [facility] Report Status Final [id number] [facility] 07/12/2003 13:5 0 EDT 07/12/2003 14:03 EDT Default Emergency MICROBIOLOGY - GENE RAL ORDERABLES Performing Organization Address [facility] de Phone Number [facility] [address] [place] [address] documented in this encounter Visit Diagnoses Not on filedocumented in this encounter
--- OUTSIDE RECORDS SUMMARY | 2024-07-02 18:57 | XMS_ITS | Encounter Summary ---
Author Organization [facility] Address [address] [place] [address] Care Team Providers Care Doctor Of Nursing Practice Name Role Phone Unavailable Primary Care Provider Unavailabl e Encounter Details Date Type Department Care Team (Late st Contact Info) Description 10/24/2001 16:12 EST Hospital Encounter [facility] - Other [address] [place] [address] Lauren Nguyen MD [address] [place] [address],[address] [phone] Unknown, Provider, Social History Tobacco Use Types [...] Procedure Name Priority Date/Time Associated Diagnosis Comments N.GONORRHOEAE PROBE Routine 10/29/2001 1 1:00 EST CHLAMYDIA TRACHOMATIS PROBE Routine 10/29/2001 11:00 EST BACTERIAL CULTURE, URINE Routine 10/29/2001 11:00 EST documented in this encounter Results * CHLAMYDIA TRACHOMATIS PROBE (10/29/2001 11:00 EST) Specimen Description Cervix [facility] Result No Chlamydia trachomatis DNA detected by assistant community manager mediated amplification. [facility] Report Status Final [id number] [facility] 10/29/2001 11:0 0 EST 10/29/2001 19:39 EST Sonya Juares MD HISTORICAL LAB FOR S Q LOAD Performing Organization Address [facility] de Phone Number [facility] [address] [place] [address] * N.GONORRHOEAE PROBE (10/29/2001 11:00 EST) Specimen Description Cervix [facility] Result No Neisseria gonorrhoeae DNA detected by assistant community manager mediated amplification. [facility] Report Status Final [id number] [facility] 10/29/2001 11:0 0 EST 10/29/2001 19:39 EST Sonya Juares MD HISTORICAL LAB FOR S Q LOAD Performing Organization Address [facility] de Phone Number [facility] [address] [place] [address] * BACTERIAL CULTURE, URINE (10/29/2001 11:00 EST) Specimen Description Urine [facility] Result Less than 10,000 CFU/ml Mixed gram positive growth [facility] Report Status Final [id number] [facility] 10/29/2001 11:0 0 EST 10/29/2001 18:10 EST Sonya Juares MD MICROBIOLOGY - GENER AL ORDERABLES Performing Organization Address City/State/[facility] Co de Phone Number [address] [address] documented in this encounter Visit Diagnoses Not on filedocumented in this encounter
--- OUTSIDE RECORDS SUMMARY | 2024-07-02 18:57 | XMS_ITS | Encounter Summary ---
Author Organization [facility] Address [address] [place] [address] Care Team Providers Care Production Planner Name Role Phone Unavailable Primary Care Provider Unavailabl e Encounter Details Date Type Department Care Team (Latest Contact Info) Description 11/25/1999 19:33 EST Hospital Encounter [facility] Emergency Department - [address] [address] Emergency, Default, MD Discharge Disposition: Home or [...]
--- OUTSIDE RECORDS SUMMARY | 2024-07-02 18:57 | XMS_ITS | Encounter Summary ---
Author Organization [facility] Address [address] [place] [address] Care Team Providers Care Card Fixer Name Role Phone Unavailable Primary Care Provider Unavailabl e Encounter Details Date Type Department Care Team (Late st Contact Info) Description 09/11/2002 20:09 EDT Hospital Encounter [facility] - Other [address] [place] [address] Carlos Damian MD [address] [place] [phone] Unknown, Provider, Discharge Disposition: Auto Discharge Social History Tobacco [...]
--- OUTSIDE RECORDS SUMMARY | 2024-07-02 18:57 | XMS_ITS | Encounter Summary ---
Author Organization [facility] Address [address] [place] [address] Care Team Providers Care Staff Development Coordinator Rn Name Role Phone Unavailable Primary Care Provider Unavailabl e Encounter Details Date Type Department Care Team (Latest Contact Info) Description 11/07/2002 6:20 EST - 11/07/2002 11:59 EST Hospital Encounter [facility] [address] [place] [address] Emergency, Default, MD Discharge Disposition: Home or [...]
--- OUTSIDE RECORDS SUMMARY | 2024-07-02 18:57 | XMS_ITS | Encounter Summary ---
Author Organization [facility] Address [address] [place] [address] Care Team Providers Care Vice President Biostatistics Name Role Phone Unavailable Primary Care Provider Unavailabl e Encounter Details Date Type Department Care Team (Latest Contact Info) Description 07/05/2001 23:18 EDT Hospital Encounter [facility] Emergency Department - [facility] [address] [place] [address] Emergency, Madina, MD Discharge Disposition: Home or [...]
--- OUTSIDE RECORDS SUMMARY | 2024-07-02 18:57 | XMS_ITS | Encounter Summary ---
Author Organization [facility] Address [address] [place] [address] Care Team Providers Care Generator Mechanic Name Role Phone Unavailable Primary Care Provider Unavailabl e Encounter Details Date Type Department Care Team (Latest Contact Info) Description 07/07/2002 3:10 EDT - 07/07/2002 11:59 EDT Hospital Encounter [facility] Emergency Department - [address] [address] Emergency, Default, MD Discharge Disposition: Home or [...]
--- OUTSIDE RECORDS SUMMARY | 2024-07-02 18:57 | XMS_ITS | Encounter Summary ---
Author Organization [facility] Address [address] [place] [address] Care Team Providers Care Health Aide Name Role Phone Unavailable Primary Care Provider Unavailabl e Encounter Details Date Type Department Care Team (Latest Contact Info) Description 05/16/2003 22:35 EDT - 05/17/2003 11:[address] [facility] Emergency Department - [address] [address] Emergency, Default, MD Discharge Disposition: Home or [...]
--- OUTSIDE RECORDS SUMMARY | 2024-07-02 18:57 | XMS_ITS | Encounter Summary ---
Author Organization [facility] Address [address] [place] [address] Care Team Providers Care Dry Clipper Tender Name Role Phone Unavailable Primary Care Provider Unavailabl e Encounter Details Date Type Department Care Team (Late st Contact Info) Description 03/24/2002 16:54 EDT - 03/26/2002 11:59 EDT Hospital Encounter [facility] [address] [place] [address] Call, Sonya Arrington MD [address] [place] [phone] Carlos Ndiaye MD [address] [place] [address] [address] [place] [phone] Discharge Disposition: Home-Health Care Svc Social History [...] Associated Diagnosis Comments COMPLETE BLOOD COUNT Routine 03/26/2002 8:15 EDT URINE MICROSCOPIC Routine 03/25/2002 13: 00 EDT URINALYSIS WITH MICROSCOPIC IF POSITIVE Routine 03/25/2002 13:00 EDT DRUG SCREEN 6 Routine 03/25/2002 13:00 EDT HEMAGRAM & DIFF Routine 03/24/2002 17:45 EDT documented in this encounter Results * (ABNORMAL) HEMAGRAM (03/26/2002 8:15 EDT) WBC 12.70(H) 4.0 - 12.4 K/cmm [facility] RBC 3.55(L) 3.86 - 5.04 M/cmm [facility] Hemoglobin 10.7(L) 11.6 - 15.2 gm/dl [facility] HCT 30.4(L) 34.9 - 44.4 % [facility] MCV 86 81 - 98 fl [facility] MCH 30.2 26.7 - 33.3 pg [facility] MCHC 35.3 32.1 - 35.9 gm/dl [facility] PLT 235 141 - 320 K/cmm [facility] RDW-CV 13.3 11.7 - 14.6 % [facility] 03/26/2002 8:15 EDT 03/26/2002 8:34 EDT Carlos Ndiaye MD HEMATOLOGY & PF4 ORD ERABLES [facility] [address] [place] [address] * URINE MICROSCOPIC (03/25/2002 13:00 EDT) WBC, UA less than 1 0 - 5 /HPF [facility] RBC, UA less than 1 0 - 5 /HPF [facility] Squam Epithel, UA None seen NS /HPF [facility] Renal Epithel, UA None seen NS /HPF [facility] Bacteria, UA None seen NS /HPF [facility] Crystals, UA None seen /HPF [facility] Hyaline Casts, UA None seen /LPF [facility] UA Comment Microscopic results are unreliable on urines unrefrig >2hrs or refrig >8hrs. [facility] 03/25/2002 13:0 0 EDT 03/25/2002 13:01 EDT Carlos Ndiaye MD URINALYSIS ORDERABLE S Performing Organization Address [facility] de Phone Number [facility] [address] [place] [address] * (ABNORMAL) URINALYSIS (03/25/2002 13:00 EDT) Color, UA Yellow [facility] Clarity, UA Clear [facility] Glucose, UA Norm NORM [facility] Bilirubin, UA Neg NEG [facility] Ketones, UA Neg NEG [facility] Specific [place], Urine <1.005(L) 1.005 - 1.02 [facility] Blood, UA Small(A) NEG [facility] pH, UA 7.0 5.0 - 9.0 [facility] Protein, UA Neg NEG [facility] Urobilinogen, UA Norm NORM mg/dL [facility] Nitrite, UA Neg NEG [facility] Leuk Esterase Neg NEG [facility] UA Comment Refractometer specific gravity ? 1.006 ? Results greater than 1.035 suggest possible interference from glucose or ?radiographic dye. [facility] 03/25/2002 13:0 0 EDT 03/25/2002 13:01 EDT Carlos Ndiaye MD URINALYSIS ORDERABLE S Performing Organization Address [facility] de Phone Number [facility] [address] [place] [address] * DRUG SCREEN 6 (03/25/2002 13:00 EDT) Amphetamine Screen, Urine Negative drug screen reporting Suitable for medical purposes only. Will not detect all drugs within class. Cutoff = 1000 ng/ml [facility] Barbiturate Screen, Urine Negative drug screen reporting Suitable for medical purposes only. Will not detect all drugs within class. Cutoff = 300 ng/ml [facility] Benzodiazepine Screen, Urine Negative drug screen reporting Suitable for medical purposes only. Will not detect all drugs within class. Cutoff = 300 ng/ml [facility] Cannabinoid Scrn, Ur Negative drug screen reporting Suitable for medical purposes only. Will not detect all drugs within class. Cutoff = 50 ng/ml [facility] Cocaine Metabolites, Ur Negative drug screen reporting Suitable for medical purposes only. Will not detect all drugs within class. Cutoff = 300 ng/ml [facility] Opiate Scrn, Ur Negative drug screen reporting Suitable for medical purposes only. Will not detect all drugs within class. Cutoff = 300 ng/ml [facility] 03/25/2002 13:0 0 EDT 03/25/2002 13:01 EDT Carlos Ndiaye MD URINALYSIS ORDERABLE S Performing Organization Address City/State/[facility] Co de Phone Number [facility] [address] [place] [address] * (ABNORMAL) HEMAGRAM & DIFF (03/24/2002 17:45 EDT) WBC 13.08(H) 4.0 - 12.4 K/cmm [facility] RBC 3.81(L) 3.86 - 5.04 M/cmm [facility] Hemoglobin 11.3(L) 11.6 - 15.2 gm/dl [facility] HCT 32.8(L) 34.9 - 44.4 % [facility] MCV 86 81 - 98 fl [facility] MCH 29.6 26.7 - 33.3 pg [facility] MCHC 34.3 32.1 - 35.9 gm/dl [facility] PLT 290 141 - 320 K/cmm [facility] RDW-CV 13.1 11.7 - 14.6 % [facility] Neutrophils 78 45.5 - 79.7 % [facility] Lymphocytes 16 15.0 - 46.8 % [facility] Monocytes 6 1.8 - 12.0 % [facility] ABS Neutrophils 10.21(H) 2.20 - 8.85 K/cmm [facility] ABS Lymphs 2.09 1.09 - 3.30 K/cmm [facility] ABS Monocytes 0.78 0.1 - 0.8 K/cmm [facility] RBC Morphology 1+ Anisocytosis 1+ Ovalocytes 1+ Teardrop cells 1+ Poikilocytosis [facility] Type of Diff: Manual [facility] 03/24/2002 17:4 5 EDT 03/24/2002 18:17 EDT Carlos Ndiaye MD HISTORICAL LAB FOR S Q LOAD [facility] [address] [place] [address] documented in this encounter Visit Diagnoses Not on filedocumented in this encounter
--- OUTSIDE RECORDS SUMMARY | 2024-07-02 18:57 | XMS_ITS | Encounter Summary ---
Author Organization [facility] Address [address] [place] [address] Care Team Providers Care Unarmed Security Officer Name Role Phone Betsy Perez MD Primary Care Provider [phone] Carlos Damian MD Primary Care Provider + [phone] Nicky Fernandez APRN Primary Care Provider Unava ilable Betsy Perez MD Primary Care Provider [phone] Betsy Perez MD Primary Care Provider [phone] Nicky Fernandez APRN Primary Care Provider Unava ilable Encounter Details Date Type Department Care Team (Late st Contact Info) Description 09/11/2002 Results Only [facility] [address] [place] [address] Eric Matias, HERO [address] [place] [phone] Social History Tobacco Use Types Packs/Day Years [...] Name Priority Date/Time Associated Diagnosis Comments HIV CONSENT REQUEST Routine 09/11/2002 1 5:49 EDT HEMAGRAM & DIFF Routine 09/11/2002 15:49 EDT GLUCOSE, PLASMA Routine 09/11/2002 15:49 EDT HEPATITIS C AB W REFLEX TO HCV RNA BY PCR Routine 09/11/2002 15:49 EDT HIV 1/2 ANTIGEN AND ANTIBODY, 4TH GENERATION Routine 09/11/2002 15:49 EDT TSH Routine 09/11/2002 15:49 EDT IRON Routine 09/11/2002 15:49 EDT HIV CONSENT REQUEST Routine 09/11/2002 1 5:38 EDT documented in this encounter Results * TSH (09/11/2002 15:49 EDT) TSH 1.69 0.35 - 5.50 uIU/ml [facility] 09/11/2002 15:4 9 EDT 09/11/2002 15:51 EDT Eric MONAHAN CHEMISTRY & BLOOD GA S ORDERABLES Performing Organization Address [facility] de Phone Number [facility] [address] [place] [address] * IRON (09/11/2002 15:49 EDT) Iron 87 60 - 180 ug/dl [facility] 09/11/2002 15:4 9 EDT 09/11/2002 15:51 EDT Eric MONAHAN CHEMISTRY & BLOOD GA S ORDERABLES Performing Organization Address [facility] Co de Phone Number [facility] [address] [place] [address] * HIV ANTIBODY (09/11/2002 15:49 EDT) HIV 1/2 Antibody NONREACT. NR [facility] 09/11/2002 15:4 9 EDT 09/11/2002 15:51 EDT Eric MONAHAN IMMUNOLOGY AND SEROL OGY ORDERABLES Performing Organization Address [facility] de Phone Number [facility] [address] [place] [address] * HEPATITIS C ANTIBODY (09/11/2002 15:49 EDT) Hepatitis C Ab Neg [facility] 09/11/2002 15:4 9 EDT 09/11/2002 15:51 EDT Eric MONAHAN CHEMISTRY & BLOOD GA S ORDERABLES Performing Organization Address [facility] Phone Number [facility] [address] [place] [address] * GLUCOSE, PLASMA (09/11/2002 15:49 EDT) Glucose, Plasma 80 70 - 110 mg/dl [facility] 09/11/2002 15:4 9 EDT 09/11/2002 15:51 EDT Eric MONAHAN CHEMISTRY & BLOOD GA S ORDERABLES Performing Organization Address [facility] Phone Number [facility] [address] [place] [address] * HIV CONSENT REQUEST (09/11/2002 15:49 EDT) HIV Consent Request Consent form received [facility] 09/11/2002 15:4 9 EDT 09/11/2002 15:51 EDT Eric MONAHAN HISTORICAL LAB FOR S Q LOAD Performing Organization Address [facility] de Phone Number [facility] [address] [place] [address] * HEMAGRAM & DIFF (09/11/2002 15:49 EDT) WBC 10.07 4.0 - 12.4 K/cmm [facility] RBC 4.82 3.86 - 5.04 M/cmm [facility] Hemoglobin 14.2 11.6 - 15.2 gm/dl [facility] HCT 41.2 34.9 - 44.4 % [facility] MCV 86 81 - 98 fl [facility] MCH 29.4 26.7 - 33.3 pg [facility] MCHC 34.4 32.1 - 35.9 gm/dl [facility] PLT 301 141 - 320 K/cmm [facility] RDW-CV 13.1 11.7 - 14.6 % [facility] % Neutrophils 66.6 45.5 - 79.7 % [facility] % Lymphocytes 26.8 15.0 - 46.8 % [facility] % Monocytes 5.2 1.8 - 12.0 % [facility] % Eosinophils 1.1 0.6 - 6.9 % [facility] % Basophils 0.3 0.2 - 1.4 % [facility] ABS Neutrophils 6.71 2.20 - 8.85 K/cmm [facility] ABS Lymphs 2.69 1.09 - 3.30 K/cmm [facility] ABS Monocytes 0.52 0.1 - 0.8 K/cmm [facility] ABS Eosinophils 0.11 0.03 - 0.61 K/cmm [facility] ABS Basophils 0.03 0.01 - 0.11 K/cmm [facility] Type of Diff: Automated [facility] 09/11/2002 15:4 9 EDT 09/11/2002 15:51 EDT Eric MONAHAN HISTORICAL LAB FOR S Q LOAD [facility] [address] [place] [address] * HIV CONSENT REQUEST (09/11/2002 15:38 EDT) HIV Consent Request Consent form required prior to testing. Specimen will be discarded in 7 days. [facility] 09/11/2002 15:3 8 EDT 09/12/2002 11:02 EDT Eric MONAHAN HISTORICAL LAB FOR S Q LOAD [facility] [address] [place] [address] documented in this encounter Visit Diagnoses Not on filedocumented in this encounter Care Teams Unarmed Security Officer Relationship Specialty Start Date End Date Betsy Perez MD [address] [place] [phone] PCP - General 01/09/10 09/16/11 Carlos Damian MD [address] [facility] [address] [place] [phone] PCP - General 01/02/10 01/08/10 Nicky Fernandez, OFFICE SYSTEM ANALYST PCP - General 12/30/09 01/01/10 Betsy Perez MD [address] [place] [phone] PCP - General 08/08/09 12/29/09 Betsy Perez MD [address] [place] [phone] PCP - General 04/23/09 08/07/09 Nicky Fernandez, OFFICE SYSTEM ANALYST PCP - General 03/24/09 04/22/09 documented as of this encounter
--- OUTSIDE RECORDS SUMMARY | 2024-07-02 18:57 | XMS_ITS | Encounter Summary ---
Author Organization [facility] Address [address] [place] [address] Care Team Providers Care Social Work Program Coordinator Name Role Phone Unavailable Primary Care Provider Unavailabl e Encounter Details Date Type Department Care Team (Latest Contact Info) Description 10/10/1999 18:31 EST Hospital Encounter [facility] Emergency Department - [facility] [address] [place] [address] Emergency, Default, MD Discharge Disposition: Home or [...] Diagnosis Comments FOOT 3 OR MORE VIEWS Routine 10/10/1999 19:16 EST documented in this encounter Results * FOOT 3 OR MORE VIEWS (10/10/1999 19:16 EST) Anatomical Region Laterality Modality Other 10/10/1999 19:1 6 EST Narrative 10/04/2009 11:43 EST PAIN 5TH PHALANX,METATARSAL R/O FX RIGHT FOOT 10/10/99 FINDINGS: Three views of the right foot no evidence for recent fracture or dislocation. D-10/10/99 T-10/11/99/lg Procedure Note Carter Abel MD - 10/04/2009 PAIN 5TH PHALANX,METATARSAL R/O FX RIGHT FOOT 10/10/99 FINDINGS: Three views of the right foot no evidence for recent fracture or dislocation. D-10/10/99 T-10/11/99/lg Mary Munoz IMStefani DIAGNOSTIC IMAGI NG ORDERABLES documented in this encounter Visit Diagnoses Not on filedocumented in this encounter
--- OUTSIDE RECORDS SUMMARY | 2024-07-02 18:57 | XMS_ITS | Encounter Summary ---
Author Organization [facility] Address [address] [place] [address] Care Team Providers Care Casting House Worker Name Role Phone Unavailable Primary Care Provider Unavailabl e Encounter Details Date Type Department Care Team (Latest Contact Info) Description 07/21/2003 1:38 EDT - 07/21/2003 11:59 EDT Hospital Encounter [facility] Emergency Department - [address] [address] Emergency, Default, MD Discharge Disposition: Home or [...]
--- OUTSIDE RECORDS SUMMARY | 2024-07-02 18:57 | XMS_ITS | Encounter Summary ---
Author Organization [facility] Address [address] [place] [id number] Care Team Providers Care Beet Topper Name Role Phone Unavailable Primary Care Provider Unavailabl e Encounter Details Date Type Department Care Team (Late st Contact Info) Description 10/21/2001 15:03 [facility] Hospital Encounter [facility] [address] [place] [address] Lauren Nguyen MD [address] [facility] [address] [place] [address] Social History Tobacco Use Types Packs/Day Years [...] 1/2 ANTIGEN AND ANTIBODY, 4TH GENERATION Routine 10/24/2001 13:45 EST PROFILE Routine 10/21/2001 14:5 7 EST documented in this encounter Results * HIV ANTIBODY (LORI) (10/24/2001 13:45 EST) HIV 1/2 Antibody NONREACT. NR [facility] 10/24/2001 13:4 5 EST 10/24/2001 18:48 EST Lauren Nguyen MD IMMUNOLOGY AND SEROL OGY ORDERABLES Performing Organization Address City/State/[facility] Co de Phone Number [facility] [address] [place] [address] * (ABNORMAL) PROFILE (10/21/2001 14:57 EST) ABO and Rh Type A POS [facility] Antibody Screen Neg [facility] WBC 10.05 4.0 - 12.4 K/cmm [facility] RBC 3.86 3.86 - 5.04 M/cmm [facility] Hemoglobin 11.7 11.6 - 15.2 gm/dl [facility] HCT 34.2(L) 34.9 - 44.4 % [facility] MCV 89 81 - 98 fl [facility] MCH 30.3 26.7 - 33.3 pg [facility] MCHC 34.2 32.1 - 35.9 gm/dl [facility] PLT 228 141 - 320 K/cmm [facility] RDW-CV 12.7 11.7 - 14.6 % [facility] Hepatitis B Surface Ag Neg [facility] % Neutrophils 73.3 45.5 - 79.7 % [facility] % Lymphocytes 22.1 15.0 - 46.8 % [facility] % Monocytes 3.8 1.8 - 12.0 % [facility] % Eosinophils 0.6 0.6 - 6.9 % [facility] % Basophils 0.2 0.2 - 1.4 % [facility] ABS Neutrophils 7.37 2.20 - 8.85 K/cmm [facility] ABS Lymphs 2.22 1.09 - 3.30 K/cmm [facility] ABS Monocytes 0.39 0.1 - 0.8 K/cmm [facility] ABS Eosinophils 0.06 0.03 - 0.61 K/cmm [facility] ABS Basophils 0.02 0.01 - 0.11 K/cmm [facility] Type of Diff: Automated [facility] Syphilis Sero (RPR) NONREACT. NR Dils [facility] Rubella IgG Scr Antibody detected [facility] 10/21/2001 14:5 7 EST 10/21/2001 15:02 EST Lauren Nguyen MD PACKAGES & DNA PROBE ORDERABLES [facility] [address] [place] [address] documented in this encounter Visit Diagnoses Not on filedocumented in this encounter
--- OUTSIDE RECORDS SUMMARY | 2024-07-02 18:57 | XMS_ITS | Encounter Summary ---
Author Organization [facility] Address [address] [place] [address] Care Team Providers Care Sales Special Agent Name Role Phone Unavailable Primary Care Provider Unavailabl e Encounter Details Date Type Department Care Team (Latest Contact Info) Description 01/21/2001 8:54 EST - 01/21/2001 11:59 EST Hospital Encounter [facility] Emergency Department - [facility] [address] [place] [address] Emergency, Default, MD Discharge Disposition: Home or [...]
--- OUTSIDE RECORDS SUMMARY | 2024-07-02 18:57 | XMS_ITS | Encounter Summary ---
Author Organization [facility] Address [address] [place] [address] Care Team Providers Care Radiation Oncology Therapist Name Role Phone Unavailable Primary Care Provider Unavailabl e Encounter Details Date Type Department Care Team (Latest Contact Info) Description 10/29/2001 10:15 EST - 10/29/2001 11:59 EST Hospital Encounter [facility] - Other [address] [place] [id number] Eryn Espinal MD Unknown, Provider, Discharge Disposition: Auto Discharge Social [...]
--- OUTSIDE RECORDS SUMMARY | 2024-07-02 18:57 | XMS_ITS | Encounter Summary ---
Author Organization [facility] Address [address] [place] [address] Care Team Providers Care Machine Stemmer Name Role Phone Unavailable Primary Care Provider Unavailabl e Encounter Details Date Type Department Care Team (Latest Contact Info) Description 05/29/2003 21:56 EDT - 05/30/2003 11:59 EDT Hospital Encounter [facility] Emergency Department - [address] [address] Emergency, Default, MD Discharge Disposition: Home or [...]
--- OUTSIDE RECORDS SUMMARY | 2024-07-02 18:57 | XMS_ITS | Encounter Summary ---
Author Organization [facility] Address [address] [place] [address] Care Team Providers Care Academic Services Professional Name Role Phone Betsy Perez MD Primary Care Provider [phone] Carlos Damian MD Primary Care Provider + [phone] Nicky Fernandez APRN Primary Care Provider Unava ilable Betsy Perez MD Primary Care Provider [phone] Betsy Perez MD Primary Care Provider [phone] Nicky Fernandez APRN Primary Care Provider Unava ilable Encounter Details Date Type Department Care Team (Late st Contact Info) Description 01/10/2002 Results Only [facility] - [facility] [address] [place], [place] [id number] Oscar Gutierrez MD Social History Tobacco Use Types Packs/Day [...] Comments URINALYSIS WITH MICROSCOPIC IF POSITIVE Routine 01/10/2002 12:18 EST UA REFLEX Routine 01/10/2002 12:18 EST HEMAGRAM & DIFF Routine 01/10/2002 12:13 EST HOLD Routine 01/10/2002 12:13 EST C REACTIVE PROTEIN Routine 01/10/2002 12 :13 EST documented in this encounter Results * UA REFLEX (01/10/2002 12:18 EST) Pathologist [facility] UA Billing Microscopic not indicated. [facility] 01/10/2002 12:1 8 EST 01/10/2002 12:18 EST Oscar Gutierrez MD URINALYSIS ORDERA BLESelena Performing Organization Address [facility] de Phone Number [facility] [address] [place] [address] * (ABNORMAL) URINALYSIS (01/10/2002 12:18 EST) Pathologist [facility] Color, UA Yellow [facility] Clarity, UA Clear [facility] Glucose, UA Norm NORM [facility] Bilirubin, UA Neg [facility]G [facility] Ketones, UA Neg NEG [facility] Specific [place], Urine 1.025 1.005 - 1.02 [facility] Blood, UA Neg NEG [facility] pH, UA 6.0 5.0 - 9.0 [facility] Protein, UA Trace(A) NEG [facility] Urobilinogen, UA 1.0(A) NORM mg/dL [facility] Nitrite, UA Neg NEG [facility] Leuk Esterase Neg [facility]G [facility] 01/10/2002 12:1 8 EST 01/10/2002 12:18 EST Oscar Gutierrez MD URINALYSIS ORDERA BLESelena Performing Organization Address [facility] Co de Phone Number [facility] [address] [place] [address] * HOLD (01/10/2002 12:13 EST) Hold Sample for coagulation will be discarded after 4 hours [facility] 01/10/2002 12:1 3 EST 01/10/2002 12:13 EST Oscar Gutierrez MD CHEMISTRY & BLOOD GAS ORDERABLES Performing Organization Address [facility] Co de Phone Number [facility] [address] [place] [address] * (ABNORMAL) C-REACTIVE PROTEIN (01/10/2002 12:13 EST) Pathologist [facility] C-Reactive Protein 1.9(H) <1.0 mg/dl [facility] 01/10/2002 12:1 3 EST 01/10/2002 12:13 EST Oscar Gutierrez MD CHEMISTRY & BLOOD GAS ORDERABLES Performing Organization Address [facility] de Phone Number [facility] [address] [place] [address] * (ABNORMAL) HEMAGRAM & DIFF (01/10/2002 12:13 EST) [facility] WBC 15.32(H) 4.0 - 12.4 K/cmm [facility] RBC 3.49(L) 3.86 - 5.04 M/cmm [facility] Hemoglobin 10.8(L) 11.6 - 15.2 gm/dl [facility] HCT 30.8(L) 34.9 - 44.4 % [facility] MCV 88 81 - 98 fl [facility] MCH 31.0 26.7 - 33.3 pg [facility] MCHC 35.1 32.1 - 35.9 gm/dl [facility] PLT 239 141 - 320 K/cmm [facility] RDW-CV 12.0 11.7 - 14.6 % [facility] Neutrophils 90(H) 45.5 - 79.7 % [facility] Lymphocytes 8(L) 15.0 - 46.8 % [facility] Monocytes 1(L) 1.8 - 12.0 % [facility] Eosinophils 1 0.6 - 6.9 % [facility] ABS Neutrophils 13.79(H) 2.20 - 8.85 K/cmm [facility] ABS Lymphs 1.23 1.09 - 3.30 K/cmm [facility] ABS Monocytes 0.15 0.1 - 0.8 K/cmm [facility] ABS Eosinophils 0.15 0.03 - 0.61 K/cmm [facility] RBC Morphology 1+ Hypochromia 1+ Poikilocytosis [facility] Type of Diff: Manual [facility] 01/10/2002 12:1 3 EST 01/10/2002 12:13 EST Oscar Gutierrez MD HISTORICAL LAB FO R SQ LOAD [facility] [address] [place] [address] documented in this encounter Visit Diagnoses Not on filedocumented in this encounter Care Teams Academic Services Professional Relationship Specialty Start Date End Date Betsy Perez MD [address] [place] [address] [phone] PCP - General 01/09/10 09/16/11 Carlos Damian MD [address] [place] [phone] PCP - General 01/02/10 01/08/10 Nicky Fernandez, VICE PRESIDENT OF SOFTWARE DEVELOPMENT PCP - General 12/30/09 01/01/10 Betsy Perez MD [address] [place] [phone] PCP - General 08/08/09 12/29/09 Betsy Perez MD [address] [place] [phone] PCP - General 04/23/09 08/07/09 Nicky Fernandez, DELMI PCP - General 03/24/09 04/22/09 documented as of this encounter
--- OUTSIDE RECORDS SUMMARY | 2024-07-02 18:57 | XMS_ITS | Encounter Summary ---
Author Organization [facility] Address [address] [place] [address] Care Team Providers Care Steam Frame Operator Name Role Phone Unavailable Primary Care Provider Unavailabl e Encounter Details Date Type Department Care Team (Late st Contact Info) Description 10/12/1999 20:27 EST Hospital Encounter [facility] Emergency Department - [facility] [address] [place] [address] Emergency, MD [place] Social History Tobacco Use [...]
--- OUTSIDE RECORDS SUMMARY | 2024-07-02 18:57 | XMS_ITS | Encounter Summary ---
Author Organization [facility] Address [address] [place] [address] Care Team Providers Care Community Development Director Name Role Phone Unavailable Primary Care Provider Unavailabl e Encounter Details Date Type Department Care Team (Late st Contact Info) Description 12/10/2001 20:[address] [facility] - Other [address] [place] [address] Oscar Gutierrez MD Unknown, Provider, Social History Tobacco Use [...] Procedure Name Priority Date/Time Associated Diagnosis Comments PREECLAMPTIC PROFILE Routine 12/10/2001 11:00 EST documented in this encounter Results * (ABNORMAL) PREECLAMPTIC PROFILE (12/10/2001 11:00 EST) ALT 10(L) 15 - 75 U/L [facility] AST 16 8 - 50 U/L [facility] BUN 10 10 - 26 mg/dl [facility] WBC 11.30 4.0 - 12.4 K/cmm [facility] RBC 3.64(L) 3.86 - 5.04 M/cmm [facility] Hemoglobin 11.2(L) 11.6 - 15.2 gm/dl [facility] HCT 32.3(L) 34.9 - 44.4 % [facility] MCV 89 81 - 98 fl [facility] MCH 30.7 26.7 - 33.3 pg [facility] MCHC 34.5 32.1 - 35.9 gm/dl [facility] PLT 260 141 - 320 K/cmm [facility] RDW-CV 12.2 11.7 - 14.6 % [facility] Creatinine 0.6(L) 0.7 - 1.5 mg/dl [facility] Uric Acid 4.0 2.2 - 7.7 mg/dl [facility] 12/10/2001 11:0 0 EST 12/10/2001 18:52 EST Oscar Gutierrez MD PACKAGES & DNA MA OBE ORDERABLES [facility] [address] [place] [address] documented in this encounter Visit Diagnoses Not on filedocumented in this encounter
--- OUTSIDE RECORDS SUMMARY | 2024-07-02 18:57 | XMS_ITS | Encounter Summary ---
Author Organization [facility] Address [address] [place] [address] Care Team Providers Care Trauma Therapist Name Role Phone Unavailable Primary Care Provider Unavailabl e Encounter Details Date Type Department Care Team (Latest Contact Info) Description 11/01/2003 23:03 EST - 11/02/2003 11:59 EST Hospital Encounter [facility] Emergency Department - [facility] [address] [place] [address] Emergency, Default, MD Discharge Disposition: Home or [...]
--- OUTSIDE RECORDS SUMMARY | 2024-07-02 18:57 | XMS_ITS | Encounter Summary ---
Author Organization [facility] Address [address] [place] [address] Care Team Providers Care Steward/Stewardess Room Name Role Phone Betsy Perez MD Primary Care Provider [phone] Carlos Damian MD Primary Care Provider + [phone] Nicky Fernandez APRN Primary Care Provider Unava ilable Betsy Perez MD Primary Care Provider [phone] Betsy Perez MD Primary Care Provider [phone] Nicky Fernandez APRN Primary Care Provider Unava ilable Encounter Details Date Type Department Care Team (Late st Contact Info) Description 11/01/2003 Office Visit [facility] [place] [facility] [address] [place], [place] [address] Shahzad So MD [address] [facility] [address] [place] [address] Social History Tobacco Use Types Packs/Day Years Used Date Smoking Tobacco: Never Assessed Sex and Gender Information Value Date Recorded Sex Assigned at Female 05/03/2022 19:33 EDT Gender Identity Female 05/02/2020 15:51 EDT Sexual Orientation Straight 05/03/2022 19 :33 EDT documented as of this encounter Progress Notes * Shahzad So MD - 01/27/2010 0742 EST Emergency Department ??? Physician Summary Registration Date/Time 11/01/2003 23:03 Attending Note: I supervised care provided by the resident. We have discussed the case. I have reviewed the note. I personally interviewed the patient and examined the patient (presents with one weekhx pharyngitis and lump in R sub- mentral reg; concerned about abscess; PE sig for mult nodes including a lge, tender, mobile submental node; ). Shahzad So M.D. (Electronically signed Shahzad So M.D. 11/02/2003 0:07) Physician's Clinical Report Emergency Department ??? Physician Summary Registration Date/Time 11/01/2003 23:03 Time Seen (00:24 ). Arrived- By private vehicle. Historian- patient. HISTORY OF PRESENT ILLNESS Chief Complaint: SWELLING OF JAW / FACE. This started 3 days ago and is still present. (worsening).Pain described as moderate. She has had a sore throat, mouth sores, swelling of the jaw and jaw pain. No ear pain. Patient has not had similar symptoms previously. Not recently seen/assessed. REVIEW OF SYSTEMS The patient has had a cough, difficulty breathing, nausea, diarrhea and vomiting. No fever, abdominal pain, difficulty with urination, headache or fainting episodes. No abnormal bleedingor skin rash. PAST HISTORY Asthma. Previous surgery (facial plastics). Medications: None. Allergies: No known drug allergies. SOCIAL HISTORY Smoker: 1 pack per day 8 years No alcohol or drug use. Is a local resident. Resides in an apartment. The patient lives with family member. No recent travel. FAMILY HISTORY Diabetes in mother. ADDITIONAL NOTES The nursing notes have been reviewed. PHYSICAL EXAM Appearance: Alert. No acute distress. Vital Signs: The vital signs have been reviewed. Head:Normal external inspection. Eyes: Pupils equal, round and reactive to light. Conjunctivae and eyelids normal. ENT: Ears normal. A few mouth ulceration (s) present on the lips. Muffled/hoarse voice. Pharynx normal. Gums normal. No pharyngeal erythema, tonsillar exudate, peritonsillar mass or dental tenderness. The mucous membranes are not dry. Neck: Normal inspection. Mildly enlarged right anterior neck and right submandibular nodes. No enlargement of the right supraclavicular, right preauricular, right occipital, left anterior neck or left posterior neck nodes. No enlargement of the left submandibular, left supraclavicular, left preauric ular or left occipital nodes. Trachea midline. Neck supple. No thyromegaly. CVS: Normal heart rate and rhythm. Extra heart sounds: S4 gallop (?). Respiratory: No respiratory distress. Breath sounds normal. Abdomen: Abdomen soft and nontender. No organomegaly. Skin: Normal skin color. No rash. Extremities: No pedal edema. Extremities nontender. Neuro: Oriented X 3. LABS, X-RAYS, AND EKG HCG: Urine HCG negative. PROGRESS AND PROCEDURES E.D. Course: 00:31. Patient is stable. Disposition: Discharged home. Discharged home in good condition and stable condition. CLINICAL IMPRESSION Acute viral pharyngitis. INSTRUCTIONS Drink plenty of fluids. Do not smoke. Lose weight. Warnings: GENERAL WARNINGS: Return or contact your physician immediately if your condition worsens or changesunexpectedly, if not improving as expected, or if other problems arise (fever, neck swells up more than now, can't breathe). Specifically, return if breathing difficulty worsens. OTC Medications: Acetaminophen (available over the counter): takeaccording to label instructions. Follow-up: Return to the emergency department if not better. Follow up with your doctor in two weeks if not better. Mckayla Garcia M.D. (Electronically signed Mckayla Garcia M.D. 11/02/2003 0:32) Physician's Clinical Report Emergency Department ??? Nursing Summary Registration Date/Time 11/01/2003 23:03 TRIAGE Initial Assessment Acuity: LEVEL 3. BP: 143 / 77 HR: 104 RR: 22 Temp: 36.4 tympanic O2 saturation: 100 % room air --22:58 Earnestine Tadeo R.N. Medications None. --22:58 Earnestine Tadeo R.N. Allergies No known drug allergies. --22:58 Earnestine Tadeo R.N. History Chief Complaint: VOMITING (LUMP IN NECK, UNABLE TO SWALLOW). (ONSET 1 WEEK AGO, SWELLING INCREASED TODAY). The patient has had nausea and vomiting and notes having headache. No fever or chills. PAST HX: Negative. SOCIAL HX: Smoker. Denies alcohol use. Arrived by private vehicle. --22:58 Earnestine Tadeo R.N. NURSING PROGRESS NOTES Progress Urine test negative. --00:05 Saloni Li DISPOSITION / DISCHARGE Condition at departure: improved. No barriers to learning present. Discharge instructions reviewed with the patient. Patient verbalized understanding. The patient was discharged home. The patient left the Emergency Department ambulatory and via private vehicle. Departure time: 00:32 Nov 02 2003 --00:32 Darron Anderson R.N., E.R.T. Steve Trala R.N. Tara Pacy, R.N. Locked/Released at 11/02/2003 11:13 by Darlene Wiley R.N. documented in this encounter Plan of Treatment Not on file documented as of this encounter Visit Diagnoses Not on filedocumented in this encounter Care Teams Steward/Stewardess Room Relationship Specialty Start Date End Date Betsy Perez MD [address] [place] [address] [phone] PCP - General 01/09/10 09/16/11 Carlos Damian MD [address] [place] [address] [phone] PCP - General 01/02/10 01/08/10 Nicky Fernandez APRN PCP - General 12/30/09 01/01/10 Betsy Perez MD [address] [place] [phone] PCP - General 08/08/09 12/29/09 Betsy Perez MD [address] [place] [phone] PCP - General 04/23/09 08/07/09 Nicky Fernandez APRN PCP - General 03/24/09 04/22/09 documented as of this encounter
--- OUTSIDE RECORDS SUMMARY | 2024-07-02 18:57 | XMS_ITS | Encounter Summary ---
Author Organization [facility] Address [address] [place] [address] Care Team Providers Care Associate Buyer Name Role Phone Unavailable Primary Care Provider Unavailabl e Encounter Details Date Type Department Care Team (Latest Contact Info) Description 01/13/2004 20:14 EST Hospital Encounter [facility] Emergency Department - [facility] [address] [place] [address] Emergency, Default, MD Discharge Disposition: Home or [...]
--- OUTSIDE RECORDS SUMMARY | 2024-07-02 18:57 | XMS_ITS | Encounter Summary ---
Author Organization [facility] Address [address] [place] [address] Care Team Providers Care Heel Sewer Name Role Phone Unavailable Primary Care Provider Unavailabl e Encounter Details Date Type Department Care Team (Latest Contact Info) Description 02/20/2002 4:37 EST - 02/20/2002 11:59 EST Hospital Encounter [facility] [place] [facility] [address] [place] [address] Eryn Espinal MD Discharge Disposition: Home or Self Care [...]
--- OUTSIDE RECORDS SUMMARY | 2024-07-02 18:57 | XMS_ITS | Encounter Summary ---
Author Organization [facility] Address [address] [place] [address] Care Team Providers Care Promotion Manager Name Role Phone Unavailable Primary Care Provider Unavailabl e Encounter Details Date Type Department Care Team (Latest Contact Info) Description 01/16/2000 9:13 EST - 01/16/2000 11:59 EST Hospital Encounter [facility] Emergency Department - [facility] [address] [place] [address] Emergency, Default, MD Discharge Disposition: Home or [...]
--- OUTSIDE RECORDS SUMMARY | 2024-07-02 18:57 | XMS_ITS | Encounter Summary ---
Author Organization [facility] Address [address] [place] [address] Care Team Providers Care Mission Support Specialist Name Role Phone Unavailable Primary Care Provider Unavailabl e Encounter Details Date Type Department Care Team (Latest Contact Info) Description 07/02/2002 23:50 EDT - 07/03/2002 11:59 EDT Hospital Encounter [facility] Emergency Department - [address] [address] Emergency, Default, MD Discharge Disposition: Home or [...]
--- OUTSIDE RECORDS SUMMARY | 2024-07-02 18:57 | XMS_ITS | Encounter Summary ---
Author Organization [facility] Address [address] [place] [address] Care Team Providers Care Ccu Nurse Name Role Phone Unavailable Primary Care Provider Unavailabl e Encounter Details Date Type Department Care Team (Latest Contact Info) Description 09/04/2003 21:44 EDT Hospital Encounter [facility] Emergency Department - [address] [address] Emergency, Default, MD Discharge Disposition: Home or [...] SEDIMENT (MICRO) WITHOUT REFLEX TO CULTURE Routine 09/04/2003 23:15 EDT URINE CULTURE IF POSITIVE Routine 09/04/2003 23:15 EDT BACTERIAL CULTURE, URINE Routine 09/04/2003 23:15 EDT URINE SEDIMENT (MICRO) WITHOUT REFLEX TO CULTURE Routine 09/04/2003 22:50 EDT URINE CULTURE IF POSITIVE Routine 09/04/2003 22:50 EDT documented in this encounter Results * BACTERIAL CULTURE, URINE (09/04/2003 23:15 EDT) Specimen Description Urine [facility] Result Less than 10,000 CFU/ml Mixed gram positive growth [facility] Report Status Final [id number] [facility] 09/04/2003 23:1 5 EDT 09/05/2003 9:57 EDT Default Emergency MICROBIOLOGY - GENE RAL ORDERABLES Performing Organization Address [facility] Co de Phone Number [facility] [address] [place] [address] * (ABNORMAL) URINE MICROSCOPIC ONLY (09/04/2003 23:15 EDT) WBC, UA 5 to 10 0 - 5 /HPF [facility] RBC, UA less than 1 0 - 5 /HPF [facility] Squam Epithel, UA Many(A) NS /HPF [facility] Renal Epithel, UA None seen NS /HPF [facility] Bacteria, UA None seen NS /HPF [facility] Crystals, UA None seen /HPF [facility] Hyaline Casts, UA None seen /LPF [facility] UA Comment Microscopic results are unreliable on urines unrefrig >2hrs or refrig >8hrs. [facility] 09/04/2003 23:1 5 EDT 09/04/2003 23:17 EDT Default Emergency URINALYSIS ORDERABL ES Performing Organization Address [facility] Co de Phone Number [facility] [address] [place] [address] * CULTURE IF UA POSITIVE (09/04/2003 23:15 EDT) Culture if Indicated Culture indicated by urinalysis results. [facility] 09/04/2003 23:1 5 EDT 09/04/2003 23:17 EDT Default Emergency MICROBIOLOGY - GENE RAL ORDERABLES Performing Organization Address City/[facility]/ZIP Co de Phone Number [facility] [address] [place] [address] * URINE MICROSCOPIC ONLY (09/04/2003 22:50 EDT) WBC, UA REJECT,NO SPEC IN CONTAINER 0 - 5 /HPF [facility] RBC, UA REJECT,NO SPEC IN CONTAINER 0 - 5 /HPF [facility] Squam Epithel, UA REJECT,NO SPEC IN CONTAINER NS /HPF [facility] Renal Epithel, UA REJECT,NO SPEC IN CONTAINER NS /HPF [facility] Bacteria, UA REJECT,NO SPEC IN CONTAINER NS /HPF [facility] Crystals, UA REJECT,NOSPEC IN CONTAINER /HPF [facility] Hyaline Casts, UA REJECT,NO SPEC IN CONTAINER /LPF [facility] UA Comment REJECT,NO SPEC IN CONTAINER [facility] 09/04/2003 22:5 0 EDT 09/04/2003 22:50 EDT Default Emergency URINALYSIS ORDERABL ES Performing Organization Address [facility] Co de Phone Number [facility] [address] [place] [address] * CULTURE IF UA POSITIVE (09/04/2003 22:50 EDT) Culture if Indicated REJECT,NO SPEC IN CONTAINER [facility] 09/04/2003 22:5 0 EDT 09/04/2003 22:50 EDT Default Emergency MICROBIOLOGY - GENE RAL ORDERABLES Performing Organization Address [facility] Co de Phone Number [facility] [address] [place] [address] documented in this encounter Visit Diagnoses Not on filedocumented in this encounter
--- OUTSIDE RECORDS SUMMARY | 2024-07-02 18:57 | XMS_ITS | Encounter Summary ---
Author Organization [facility] Address [address] [place] [address] Care Team Providers Care Gas Operation Manager Name Role Phone Unavailable Primary Care Provider Unavailabl e Encounter Details Date Type Department Care Team (Latest Contact Info) Description 09/06/1999 13:12 EDT Hospital Encounter [facility] Emergency Department - [address] [address] Emergency, Default, MD Discharge Disposition: Home or [...] Diagnosis Comments HAND 3 OR MORE VIEWS Routine 09/06/1999 14:37 EDT documented in this encounter Results * HAND 3 OR MORE VIEWS (09/06/1999 14:37 EDT) Anatomical Region Laterality Modality Other 09/06/1999 14:3 7 EDT Narrative 10/04/2009 10:18 EST PAIN 5TH MEACARPAL S/P HITTING SOMETHING R/O FX LEFT HAND 09/06/99 AT 1425 HOURS. The bones and soft tissues are within normal limits. No fracture is identified. /lr Procedure Note Shahzad Gao MD - 10/04/2009 PAIN 5TH MEACARPAL S/P HITTING SOMETHING R/O FX LEFT HAND 09/06/99 AT 1425 HOURS. The bones and soft tissues are within normal limits. No fracture is identified. /lr Chantale MONAHAN IMG DIAGNOSTIC IMAGI NG ORDERABLES documented in this encounter Visit Diagnoses Not on filedocumented in this encounter
--- OUTSIDE RECORDS SUMMARY | 2024-07-02 18:57 | XMS_ITS | Encounter Summary ---
Author Organization [facility] Address [address] [place] [address] Care Team Providers Care Line Department Supervisor Name Role Phone Unavailable Primary Care Provider Unavailabl e Encounter Details Date Type Department Care Team (Latest Contact Info) Description 01/30/2002 1:19 EST - 01/30/2002 11:59 EST Hospital Encounter [facility] - Map conversion [address] [place] [address] Sofia Ly MD Discharge Disposition: Home or [...] Associated Diagnosis Comments HEMAGRAM & DIFF Routine 01/30/2002 2:04 EST HOLD Routine 01/30/2002 2:04 EST KLEIHAUER BLOOD Routine 01/30/2002 2:04 EST documented in this encounter Results * KLEIHAUER BLOOD (01/30/2002 2:04 EST) Kleihauer blood Rare cell seen Rev'd by Pathologist 0.0 - 1.9 ml F/M HEMORRHAGE [facility] 01/30/2002 2:04 EST 01/30/2002 2:05 EST Sofia Ly MD HEMATOLOGY & PF4 ORD ERABLES Performing Organization Address [facility] Co de Phone Number [facility] [address] [place] [address] * HOLD (01/30/2002 2:04 EST) Hold SST TUBE [facility] 01/30/2002 2:04 EST 01/30/2002 2:05 EST Sofia Ly MD CHEMISTRY & BLOOD GA S ORDERABLES Performing Organization Address [facility] Co de Phone Number [facility] [address] [place] [address] * (ABNORMAL) HEMAGRAM & DIFF (01/30/2002 2:04 EST) WBC 15.35(H) 4.0 - 12.4 K/cmm [facility] RBC 3.48(L) 3.86 - 5.04 M/cmm [facility] Hemoglobin 10.9(L) 11.6 - 15.2 gm/dl [facility] HCT 30.2(L) 34.9 - 44.4 % [facility] MCV 87 81 - 98 fl [facility] MCH 31.2 26.7 - 33.3 pg [facility] MCHC 35.9 32.1 - 35.9 gm/dl [facility] PLT 289 141 - 320 K/cmm [facility] RDW-CV 12.3 11.7 - 14.6 % [facility] Neutrophils 81(H) 45.5 - 79.7 % [facility] Lymphocytes 17 15.0 - 46.8 % [facility] Monocytes 2 1.8 - 12.0 % [facility] ABS Neutrophils 12.43(H) 2.20 - 8.85 K/cmm [facility] ABS Lymphs 2.61 1.09 - 3.30 K/cmm [facility] ABS Monocytes 0.31 0.1 - 0.8 K/cmm [facility] RBC Morphology 1+ Polychromasia [facility] Type of Diff: Manual RADHA DIANE 01/30/2002 2:04 EST 01/30/2002 2:05 EST Sofia Ly MD HISTORICAL LAB FOR S Q LOAD [facility] [address] [place] [address] documented in this encounter Visit Diagnoses Not on filedocumented in this encounter
--- OUTSIDE RECORDS SUMMARY | 2024-07-02 18:57 | XMS_ITS | Encounter Summary ---
Author Organization [facility] Address [address] [place] [address] Care Team Providers Care Ragman Name Role Phone Unavailable Primary Care Provider Unavailabl e Encounter Details Date Type Department Care Team (Latest Contact Info) Description 07/21/2001 11:10 EDT - 07/21/2001 11:59 EDT Hospital Encounter [facility] Emergency Department - [address] [address] Emergency, Default, MD Discharge Disposition: Home or [...] SEDIMENT (MICRO) WITHOUT REFLEX TO CULTURE Routine 07/21/2001 12:13 EDT documented in this encounter Results * (ABNORMAL) URINE MICROSCOPIC ONLY (07/21/2001 12:13 EDT) WBC, UA less than 1 0 - 5 /HPF [facility] RBC, UA >50 0 - 5 /HPF [facility] Squam Epithel, UA Innum(A) NS /HPF [facility] Renal Epithel, UA None seen NS /HPF [facility] Bacteria, UA Few(A) NS /HPF [facility] Crystals, UA None seen /HPF [facility] Hyaline Casts, UA None seen /LPF [facility] UA Comment Microscopic results are unreliable on urines unrefrig >2hrs or refrig >8hrs. [facility] 07/21/2001 12:1 3 EDT 07/21/2001 12:13 EDT Default Emergency MD URINALYSIS ORDERABL ES [facility] [address] [place] [address] documented in this encounter Visit Diagnoses Not on filedocumented in this encounter
--- OUTSIDE RECORDS SUMMARY | 2024-07-02 18:57 | XMS_ITS | Encounter Summary ---
Author Organization [facility] Address [address] [place] [address] Care Team Providers Care Mine Wirer Name Role Phone Unavailable Primary Care Provider Unavailabl e Encounter Details Date Type Department Care Team (Late st Contact Info) Description 11/12/2001 12:04 [facility] Hospital Encounter [facility] - Other [address] [place] [address] Paola Vera MD [address] [place] [address],[address] [phone] Unknown, Provider, Social History Tobacco Use Types [...] Date/Time Associated Diagnosis Comments N.GONORRHOEAE PROBE Routine 11/12/2001 1 1:00 EST CHLAMYDIA TRACHOMATIS PROBE Routine 11/12/2001 11:00 EST CYTOPATHOLOGY Routine 11/12/2001 0:00 EST documented in this encounter Results * N.GONORRHOEAE PROBE (11/12/2001 11:00 EST) Specimen Description Cervix [facility] Result No Neisseria gonorrhoeae DNA detected by electrician machine shop mediated amplification. [facility] Report Status Final [id number] [facility] 11/12/2001 11:0 0 EST 11/13/2001 8:49 EST Paola Vera MD HISTORICAL LAB FOR S Q LOAD Performing Organization Address [facility] de Phone Number [facility] [address] [place] [address] * CHLAMYDIA TRACHOMATIS PROBE (11/12/2001 11:00 EST) Specimen Description Cervix [facility] Result No Chlamydia trachomatis DNA detected by electrician machine shop mediated amplification. [facility] Report Status Final [id number] [facility] 11/12/2001 11:0 0 EST 11/13/2001 8:49 EST Paola Vera MD HISTORICAL LAB FOR S Q LOAD Performing Organization Address [facility] de Phone Number [facility] [address] [place] [address] * CYTOPATHOLOGY (11/12/2001 0:00 EST) Pathology Report: CYTOPATHOLOGY REPORT Reports generated via electronic interface contain original data; however they are lacking the format of the original report. Caution should be taken when reading/interpreti ng unformatted reports. Name: ? PECOR, YESENIA E ? Accession #: ? [id number] : ? 1980 (Age: 21) ??F ?Collect Date: ? 11/12/2001 Location: ? [facility] ? Receive Date: ? 11/14/2001 Provider: ?PAOLA VERA MD Copy to: ? Specimen/Source: ?ThinPrep Pap Test, Cervix/Endocervix Last Menstrual Period: ? 07/?/ Menstrual/Pregnanc y Status: ? SPECIMEN ADEQUACY ? Satisfactory for Evaluation - transformation zone component present GENERAL CATEGORIZATION ? Epithelial Cell Abnormality DESCRIPTIVE DIAGNOSIS ? Squamous Cell Abnormality - Atypical squamous cells, undetermined significance. RECOMMENDATION ? Recommend clinical correlation and further evaluation, as clinically indicated. ? Document reviewed and electronically signed by: ? Renea Corona MD ? Report Date: ??11/27/2001 14:22 End of Report [facility] 11/12/2001 11/14/2001 Paola Vera MD PATHOLOGY ORDERABLES [facility] [address] [place] [address] documented in this encounter Visit Diagnoses Not on filedocumented in this encounter
--- OUTSIDE RECORDS SUMMARY | 2024-07-02 18:58 | XMS_ITS ---
Author Organization Unknown Address [address] [place] [phone] Phone Care Team Providers Care Student Liaison Officer Name Role Phone PUNEET SAMUELS MD Attending Unavailable CHAS SPANGLER Primary Unavailable Results LACTOFERRIN DETECTION STOOL - Collect Date/Time: 07/21/2021 18:33 [facility] ID: [id number] [address] [place] [address], [address] LOINC: 00654-2 Test Value Unit Reference Range Code Code System Flag Consistency: WATERY Lactoferrin stool NEGATIVE FECAL BACTERIAL PATHOGENS BY PCR - Collect Date/Time: 07/21/2021 18:33 [facility] ID: [id number] [address] [place] [address], [id number] LOINC: 59644-1 Test Value Unit Reference Range Code Code System Flag Salmonella PCR Negative Negative Shigella PCR Negative Negative Campylobacter PCR Negative Negative Shiga Toxin PCR Negative Negative CLOSTRIDIUM DIFFICILE BY PCR - Collect Date/Time: 07/21/2021 18:33 [facility] ID: [id number] [address] [place] [address], [address] LOINC: 43167-3 Test Value Unit Reference Range Code Code System Flag Consistency = WATERY 40585-0 LOINC C. DIFFICILE DNA NEGATIVE Normal: Negative 61031-3 LOINC URINALYSIS WITH REFLEX CULT IF POSITIVE - Collect Date/Time: 07/20/2021 22:20 [facility] ID: [id number] [address] [place] [address], [address] LOINC: 31947-0 Test Value Unit Reference Range Code Code System Flag COLLECTION MODE: Clean Catch Color YELLOW yellow 5778-6 LOINC Appearance CLEAR clear 5767-9 LOINC Glucose urine NEGATIVE negative mg/dl 59598-6 LOINC Bilirubin NEGATIVE negative 5770-3 LOINC Ketones TRACE negative mg/dl 2514-8 LOINC A Spec gravity >=1.030 1.003 - 1.030 5811-5 LOINC pH urine 6.0 5.0 - 7.0 2756-5 LOINC Protein NEGATIVE negative mg/dl 24114-4 LOINC Urobilinogen 0.2 <or= 1 EU/dl 32355-8 LOINC Nitrite. NEGATIVE negative 5802-4 LOINC Blood NEGATIVE negative 5794-3 LOINC Leukocytes. NEGATIVE negative MICROSCOPIC NOT INDICAT LIPASE - Collect Date/Time: 07/20/2021 22:05 [facility] ID: [id number] [address] [place] [address], [address] LOINC: 3040-3 Test Value Unit Reference Range Code Code System Flag LIPASE 132 U/L L=73 H=393 COMPREHENSIVE METABOLIC PANE L (CMP) - Collect Date/Time: 07/20/2021 22:05 [facility] ID: [id number] [address] [place] [address], [address] LOINC: 81825-5 Test Value Unit Reference Range Code Code System Flag GLUCOSE 230 mg/dL L=70 H=116 2345-7 LOINC H BUN 10 mg/dL L=6 H=25 3094-0 LOINC CREATININE 0.98 mg/dL L=0.51 H=0.95 2160-0 LOINC H SODIUM SERUM 141 mmol/L L=136 H=145 2951-2 LOINC POTASSIUM SERUM 3.5 mmol/L L=3.4 H=5.2 2823-3 LOINC CHLORIDE SERUM 103 mmol/L L=96 H=110 2075-0 LOINC CARBON DIOXIDE (CO2) 30 mmol/L L=22 H=34 2028-9 LOINC ANION GAP 8.0 mmol/L 77061-9 LOINC CALCIUM SERUM 8.9 mg/dL L=8.2 H=10.2 60975-1 LOINC BILIRUBIN TOTAL 0.2 mg/dL L=0.0 H=1.3 1975-2 LOINC ALK. PHOS. 78 U/L L=46 H=116 6768-6 LOINC SGOT (AST) 11 U/L L=15 H=37 1920-8 LOINC L SGPT (ALT) 17 U/L L=12 H=78 1742-6 LOINC TOTAL PROTEIN 7.3 gm/dL L=6.0 H=8.0 2885-2 LOINC ALBUMIN 3.0 gm/dL L=3.4 H=5.0 1751-7 LOINC L AGE 40 years eGFR (non-Afr.Amer.) 63 mL/min 67525-7 LOINC eGFR (Afr-Paraguayan) 76 mL/min 85340-0 LOINC CBC W/ DIFFERENTIAL - Collec t Date/Time: 07/20/2021 22:05 [facility] ID: [id number] [address] [place], [place], [address] LOINC: 36613-8 Test Value Unit Reference Range Code Code System Flag WBC 14.87 th/cmm L=5.00 H=10.00 6690-2 LOINC H NEUT % 72.5 % L=40.0 H=80.0 LYMPH % 22.5 % L=10.0 H=50.0 MONO % 2.7 % L=2.0 H=12.0 09751-7 LOINC EOS % 1.7 % L=0.0 H=8.0 BASO % 0.3 % L=0.0 H=3.0 IG % 0.3 % L=0.0 H=1.1 2514-8 LOINC NRBC % 0.0 % L=0.0 H=0.0 66162-2 LOINC NEUT abs count 10.8 th/cmm L=1.6 H=8.4 751-8 LOINC H LYMPH abs count 3.4 th/cmm L=1.5 H=4.0 731-0 LOINC MONO abs count 0.4 th/cmm L=0.2 H=1.0 742-7 LOINC EOS abs count 0.3 th/cmm L=0.0 H=0.5 711-2 LOINC BASO abs count 0.1 th/cmm L=0.0 H=0.2 704-7 LOINC IG abs count 0.0 th/cmm L=0.0 H=0.1 96840-9 LOINC NRBC abs count 0.0 mil/cmm L=0.0 H=0.0 74847-1 LOINC RBC 4.59 mil/cmm L=3.90 H=5.40 789-8 LOINC HEMOGLOBIN 12.8 gm/dL L=12.0 H=16.0 718-7 LOINC HEMATOCRIT 40 % L=37 H=47 4544-3 LOINC MCV 86 fL L=82 H=92 787-2 LOINC MCH 27.9 pg L=27.0 H=31.0 785-6 LOINC MCHC 32.3 % L=32.0 H=36.0 786-4 LOINC RDW-SD 44.0 fL L=39.0 H=49.0 788-0 LOINC PLATELET COUNT 323 th/cmm L=150 H=450 777-3 LOINC C REACTIVE PROTEIN HIGH SENS ITIVITY - Collect Date/Time: 07/20/2021 22:05 [facility] ID: [id number] [address] [place], [place], [address] LOINC: 57469-6 Test Value Unit Reference Range Code Code System Flag CRP-HIGH SENS. 44.48 mg/L L=0.00 H=3.00 40863-8 LOINC H CRP-HIGH SENS 4.45 mg/dL L=0.00 H=0.30 99932-4 LOINC H Social History Type Status Start Date End Date Code Code Syst em Smoking History Current every day smoker 692896991 SNOMED CT Smoking History Current some day smoker 11/25/[address] Smoking History Current every day smoker 11/25/[address] Sex Female Medications Medication Start [...] Suspension 12/14/2022 06/02/2023 INHALATION NEEDED 1 unit(s) 510 786 RxNorm 1 EACH INHALATION NEEDED Trulicity 0.75MG/0.5M [...] Code Code System TYPE 2 DIABETES active 25545811 SNOM ED-CT HYPOTHYROIDISM active 08020666 SNOME D-CT DENTAL CARIES active 16554180 SNOMED -CT ACUTE BRONCHITIS active 40981128 SNO MED-CT SUPERFICIAL FOREIGN BODY, RIGHT FOOT, INITIAL ENCOUNTER active 282502624 SNOMED-CT ASTHMA 03/03/2022 resolved 882262540 SNOMED-CT ANXIETY 01/19/2022 resolved 40655201 SNOMED-CT HLD 09/10/2022 resolved 37798784 SNOMED-CT Allergies and Adverse Reactions Allergy Substance Reaction Severity Start Date Concern Status Code Code System SULFA (sulfonamide) Anaphylaxis (SNOMED-CT: 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) Active 53677591 SNOMED-CT MORPHINE Hives (SNOMED-CT: 807659226), Itching (SNOMED-CT: 093558129) Moderate Active 7052 RxNorm BEE POLLEN Anaphylaxis (SNOMED-CT: 68427947) Active 555301 RxNorm DILAUDID Hives (SNOMED-CT: 017840363), Itching (SNOMED-CT: 991387891) Moderate Active 694294 RxNorm Plan of Treatment Symptoms 08/09/2021 LAB DRAW 15MIN 05/30/2024 US PELVIC / TV 11/06/2023 CT CHEST W/O CONTRAST 03/13/2023 CT CHEST W/O CONTRAST 03/04/2023 SYMPTOMS 10/19/2022 LAB DRAW 15MIN 08/02/2022 LAB DRAW 15MIN 05/25/2022 SYMPTOMS 04/28/2022 EXPOSURE 12/07/2021 SYMPTOMS 11/22/2021 SYMPTOMS 2021 Encounters Encounter Diagnosis Start Date Code Code Sys tem Left upper quadrant pain 07/20/2021 SNO MED-CT Personal Care Team Section Performer Name Performer Role Active Date Inactive Da campbell
--- OUTSIDE RECORDS SUMMARY | 2024-07-02 18:58 | XMS_ITS ---
Author Organization Unknown Address [address] [place] [phone] Phone Care Team Providers Care Spice Fumigator Name Role Phone PHUONG FONG MD Attending Unavailable CHAS SPANGLER Primary Unavailable Results [facility] Colle ct Date/Time: 08/09/2021 11:30 [facility] ID: [id number] [address] [place], [place], [address] LOINC: 55356-2 Test Value Unit Reference Range Code Code System Flag SOURCE= Anterior nasal Tier- SYMPTOMS SARS COV2 RNA: NEGATIVE REFERENCE RAN GE: NEGAT 83975-2 LOINC Social History Type Status Start Date End Date Code Code Syst em Smoking History Current every day smoker 590237345 SNOMED CT Smoking History Current some day smoker 11/25/[address] Smoking History Current every day smoker 11/25/[address] Sex Female Medications Medication Start [...] INHALATION NEEDED, EVERY 4 HOURS 2 PUFF 646 763 RxNorm 2 PUFF INHALATION NEEDED, EVERY [...] 10/07/2022 ORAL TWICE A DAY 1 TABLET 842 580 RxNorm TAKE 1 TABLET ORAL TWICE [...] Suspension 12/14/2022 06/02/2023 INHALATION NEEDED 1 unit(s) 743 752 RxNorm 1 EACH INHALATION NEEDED Trulicity [...] ORAL NEEDED EVERY 8 HOURS 1 TABLET 997 666 RxNorm TAKE 1 TABLET ORAL NEEDED [...] Code Code System TYPE 2 DIABETES active 47343722 SNOM ED-CT HYPOTHYROIDISM active 86468500 SNOME D-CT DENTAL CARIES active 76575024 SNOMED -CT ACUTE BRONCHITIS active 14916411 SNO MED-CT SUPERFICIAL FOREIGN BODY, RIGHT FOOT, INITIAL ENCOUNTER active 546840673 SNOMED-CT ASTHMA 03/03/2022 resolved 511811188 SNOMED-CT ANXIETY 01/19/2022 resolved 39015327 SNOMED-CT HLD 09/10/2022 resolved 42889577 SNOMED-CT Allergies and Adverse Reactions Allergy Substance Reaction Severity Start Date Concern Status Code Code System SULFA (sulfonamide) Anaphylaxis (SNOMED-CT: 14088935) Active 20418209 SNOMED-CT MORPHINE Hives (SNOMED-CT: 011818957), Itching (SNOMED-CT: 709817870) Moderate Active 7052 RxNorm BEE POLLEN Anaphylaxis (SNOMED-CT: 58695524) Active 804651 RxNorm DILAUDID Hives (SNOMED-CT: 330210384), Itching (SNOMED-CT: 243523520) Moderate Active 788543 RxNorm Plan of Treatment Symptoms 08/09/2021 LAB DRAW 15MIN 05/30/2024 US PELVIC / TV 11/06/2023 CT CHEST W/O CONTRAST 03/13/2023 CT CHEST W/O CONTRAST 03/04/2023 SYMPTOMS 10/19/2022 LAB DRAW 15MIN 08/02/2022 LAB DRAW 15MIN 05/25/2022 SYMPTOMS 04/28/2022 EXPOSURE 12/07/2021 SYMPTOMS 11/22/2021 SYMPTOMS 2021 Encounters Encounter Diagnosis Start Date Code Code Sys tem CONTACT WITH AND SUSPECTED EXPOSURE TO COVID-19 2020 SNOMED-CT Personal Care Team Section Performer Name Performer Role Active Date Inactive Da te
--- OUTSIDE RECORDS SUMMARY | 2024-07-02 18:58 | XMS_ITS ---
Author Organization Unknown Address [address] [place] [phone] Phone Care Team Providers Care Charcoal Unloader Name Role Phone DYANA PAEZ MD Attending Unavailable CHAS SPANGLER Primary Unavailable Results [facility] - Colle ct Date/Time: 07/03/2021 04:39 [facility] ID: [id number] [address] [place], [place], [address] LOINC: 38723-9 Test Value Unit Reference Range Code Code System Flag SOURCE= Anterior nasal Tier- INPATIENT/ED SARS COV2 RNA: NEGATIVE REFERENCE RAN GE: NEGAT 94360-2 LOINC Social History Type Status Start Date End Date Code Code Syst em Smoking History Current every day smoker 384023856 SNOMED CT Smoking History Current some day smoker 11/25/[address] Smoking History Current every day smoker 11/25/[address] Sex Female Medications Medication Start [...] INHALATION NEEDED, EVERY 4 HOURS 2 PUFF 286 763 RxNorm 2 PUFF INHALATION NEEDED, EVERY [...] Suspension 12/14/2022 06/02/2023 INHALATION NEEDED 1 unit(s) 540 752 RxNorm 1 EACH INHALATION NEEDED Trulicity [...] Code Code System TYPE 2 DIABETES active 73064119 SNOM ED-CT HYPOTHYROIDISM active 60294845 SNOME D-CT DENTAL CARIES active 72584225 SNOMED -CT ACUTE BRONCHITIS active 69240763 SNO MED-CT SUPERFICIAL FOREIGN BODY, RIGHT FOOT, INITIAL ENCOUNTER active 414712352 SNOMED-CT ASTHMA 03/03/2022 resolved 689515631 SNOMED-CT ANXIETY 01/19/2022 resolved 11698086 SNOMED-CT HLD 09/10/2022 resolved 01680798 SNOMED-CT Allergies and Adverse Reactions Allergy Substance Reaction Severity Start Date Concern Status Code Code System SULFA (sulfonamide) Anaphylaxis (SNOMED-CT: 68871351) Active 42938709 SNOMED-CT MORPHINE Hives (SNOMED-CT: 203620442), Itching (SNOMED-CT: 227406089) Moderate Active 7052 RxNorm BEE POLLEN Anaphylaxis (SNOMED-CT: 37686543) Active 716010 RxNorm DILAUDID Hives (SNOMED-CT: 210374416), Itching (SNOMED-CT: 412792131) Moderate Active 293524 RxNorm Plan of Treatment Symptoms 08/09/2021 LAB DRAW 15MIN 05/30/2024 US PELVIC / TV 11/06/2023 CT CHEST W/O CONTRAST 03/13/2023 CT CHEST W/O CONTRAST 03/04/2023 SYMPTOMS 10/19/2022 LAB DRAW 15MIN 08/02/2022 LAB DRAW 15MIN 05/25/2022 SYMPTOMS 04/28/2022 EXPOSURE 12/07/2021 SYMPTOMS 11/22/2021 SYMPTOMS 2021 Encounters Encounter Diagnosis Start Date Code Code Sys tem Nausea with vomiting, unspecified 07/03/2021 SNOMED-CT Personal Care Team Section Performer Name Performer Role Active Date Inactive Da campbell
== END 2024-07-02 18:43 | disposition home or self-care (01) ==
LOC: NCHCN 18:42
PROVIDERS: PCP Nurse Practitioner Family; Visit Provider Nurse Practitioner Family
DX: E11.9 Type 2 diabetes mellitus without complications (principal)
CPT/HCPCS: 82043; 82570

== ENCOUNTER 2025-04-06 12:11 | Outpatient (REF) | payer MEDICAID, SELFPAY ==
[2025-04-06 16:44] LABS: TSH 0.28 uIU/mL (0.36-3.74)
== END 2025-04-06 12:12 | disposition home or self-care (01) ==
LOC: NCHCN 12:11
PROVIDERS: PCP Nurse Practitioner Family; Visit Provider Nurse Practitioner Family
DX: E03.9 Hypothyroidism, unspecified (principal)
CPT/HCPCS: 84443

== ENCOUNTER 2025-08-23 17:20 | Outpatient (REF) | payer MEDICAID, SELFPAY ==
[2025-08-23 21:31] LABS: HCT 41.3 % (36.0-46.0); HGB 13.4 g/dL (11.2-15.7); MCH 28.7 pg (27.0-33.0); MCHC 32.4 % (32.0-36.0); MCV 88 fL (80-95); MPV 9.7 fL (8.0-11.0); Platelet Count 297 10^3/uL (130-400); RBC 4.67 10^6/uL (3.93-5.22); RDW 13.2 % (11.7-14.6); RDW-SD 42.8 fL; WBC 12.35 10^3/uL (4.4-10.8)
[2025-08-23 21:55] LABS: ALT 17 U/L (14-59); AST 19 U/L (15-37); Albumin 3.1 g/dL (3.4-5.0); Alkaline Phosphatase 98 U/L (46-116); Anion Gap 9.1 mmol/L (3-11); BUN 10 mg/dL (7-18); Bilirubin, Total 0.4 mg/dL (0.2-1.0); CO2 25.9 mmol/L (21.0-32.0); Calcium 8.8 mg/dL (8.5-10.1); Chloride 103 mmol/L (98-107); Estimated GFR 71.69 (mL/min/1.73m2); Glucose 145 mg/dL (74-106); Potassium 4.1 mmol/L (3.5-5.1); Sodium 138 mmol/L (136-145); TSH 2.72 uIU/mL (0.36-3.74); Total Protein 7.3 g/dL (6.4-8.2)
[2025-08-23 22:07] LABS: Hemoglobin A1C 6.6 % (<5.7)
== END 2025-08-23 17:21 | disposition home or self-care (01) ==
LOC: NCHCN 17:20
PROVIDERS: PCP Nurse Practitioner Family; Visit Provider Nurse Practitioner Family
DX: E03.9 Hypothyroidism, unspecified (principal); E11.9 Type 2 diabetes mellitus without complications; E66.9 Obesity, unspecified; Z13.0 Encounter for screening for diseases of the blood and blood-forming organs and certain disorders involving the immune mechanism
CPT/HCPCS: 80053; 85027; 83036; 84443

== ENCOUNTER 2025-10-07 14:59 | Outpatient (REF) | payer MEDICAID, SELFPAY | END 2025-10-07 15:00 | disposition home or self-care (01) | LOC: NCHCN 14:59 | PROVIDERS: PCP Nurse Practitioner Family; Visit Provider Nurse Practitioner Family | DX: E11.9 Type 2 diabetes mellitus without complications (principal) | CPT/HCPCS: 82043; 82570 ==